=== PATIENT | female | born 1950 | race Caucasian/White ===

== ENCOUNTER → 2017-12-30 07:09 | Outpatient (CLI) | payer MEDICARE, SELFPAY ==
--- NOTE | 2017-12-30 07:15 | CT_ITS ---
STUDY: CT ABDOMEN AND PELVIS WITH CONTRAST REASON FOR EXAM: Female, 67 years old. Right adnexal mass. RADIATION DOSAGE (If Supplied By Facility): CTDIvol = ( 20.62 ) mGy, DLP = ( 1084.94 ) mGycm TECHNIQUE: Transaxial images were obtained from the dome of the diaphragm to the symphysis pubis with oral contrast. 100CC ml of Isovue 300 contrast was administered. Sagittal and coronal images were reconstructed. Individualized dose optimization techniques were used for this CT. COMPARISON: Comparison is made with prior examination dated April 11, 2017. FINDINGS: Minimal increased markings at the right lung base suggestive of linear atelectasis. Coronary artery calcification. There is decreased attenuation of the liver consistent with steatosis. Normal gallbladder and extrahepatic biliary system. Normal spleen. Normal pancreas. Normal bilateral adrenal glands. Normal right kidney. Normal left kidney. Normal visualized stomach. Normal small intestine. There are multiple colonic diverticula consistent with diverticulosis. The patient is status post appendectomy. There is diffuse atherosclerotic calcification of the abdominal aorta, without a demonstrated aneurysm. Normal inferior vena cava. There is borderline retroperitoneal lymphadenopathy with enlarged nodes no greater than 10mm in the short axis diameter. Normal urinary bladder. Focal calcification along the right side of the uterus suggestive of a small calcified fibroid. There is a 3.3 cm x 4.2 cm x 3.8 cm hypodense mass in the right adnexal region. This abuts the right side of the fundal portion of the uterus. This may represent either an ovarian mass or pedunculated fibroid. Correlation with ultrasound is recommended for further evaluation. Normal abdominal wall. Degenerative changes at the L5-S1 level. CT/Abdomen/Pelvis WITH Contrast IMPRESSION: Fatty infiltration of the liver. Stable appearance of the right adnexal mass. This may represent either an ovarian pathology or pedunculated fibroid. Correlation with ultrasound of the pelvis is recommended for further evaluation. Electronically Signed: Emeterio Vicente MD at 15:56 EST Tel [phone], Service support ,
[2017-12-30 07:41] LABS: CREATININE FINGERSTICK 1.4 mg/dL (0.55-1.02)
== END ==
PROVIDERS: Family Provider Student in an Organized Health Care Education/Training Program; PCP Student in an Organized Health Care Education/Training Program; Visit Provider Obstetrics & Gynecology
DX: N94.9 Unspecified condition associated with female genital organs and menstrual cycle (principal)
CPT/HCPCS: 74177; Q9967

== ENCOUNTER 2018-01-14 11:22 | Emergency (ER) | payer MEDICARE, SELFPAY ==
[2018-01-14 11:24] VITALS: BP 141/84; PULSE 100; RESP 17; TEMP 37.1; O2SAT 95; BMI 31.0
--- NOTE | 2018-01-14 11:42 | ED.DCSUM_ITS ---
- ER Visit Summary Date of Service: 01/14/18 Chief Complaint: Nausea, vomiting, diarrhea History of Present Illness: The patient is a 67 F who states that she felt fine when she was to bed last night. She woke at 1 AM with nausea, vomiting, and diarrhea. Symptoms have persisted. She denies fever. She complains of generalized abdominal pain. She is a diabetic and states this morning her blood sugar was 300. She did take her insulin but has not been able to eat. Physical Examination: Vital signs are unremarkable. Patient sitting upright in bed no acute distress. Heart is regular rate and rhythm. Lung sounds are clear. Abdomen is soft mild diffuse tenderness to palpation. There is no guarding or rebound. Hypoactive bowel sounds are noted throughout. Test Results: CBC was normal white count with 91% neutrophils. Hemoglobin 11.9. Chemistry studies reveal glucose of 302. Her creatinine is 1.39 which is consistent with her baseline. LFTs are significant only for an ALT is 76 and an AST of 70. Urinalysis shows no sign of infection. Emergency Department Course and Treatment: Patient was given IV fluids and Zofran. On repeat evaluation she states her nausea was returning. She given Zofran and a dose of Bentyl. Final repeat eval patient states that she threw up just one time here in the emergency room. Overall she is feeling improved. She will be given Zofran and Bentyl for home. Stool studies were sent and if positive she will be called with those results. Treatment Plan: [] Disposition: Discharge Impression: Viral gastroenteritis This note was generated with wo[employer] mobile marketing dictation software. It may contain incorrect words, spelling, and punctuation that were not noted in review of the chart prior to signing ED Disposition - Plan for ED Patient: Chief Complaint: Nausea/Vomiting/Diarrhea Referrals: Mariano Pearce DO [Primary Care Provider] -
[2018-01-14] MEDS: Ondansetron 4 MG/2 ML Vial IV ×2 (11:53→14:03)
[2018-01-14] MEDS: 0.9% Normal Saline 1,000 ML 150 ML IV (11:53)
[2018-01-14 12:00] LABS: Absolute Lymphocyte Count 0.44 X10^3/ul (0.83-4.51); Absolute Neutrophil Count 7.5 X10^3/uL (2.0-7.7); Basophil# 0.01 X10^3/uL; Basophil% 0.1 % (0-1); Eosinophil# 0.04 X10^3/uL; Eosinophils% 0.5 % (0-5); Hematocrit 36.5 % (37-47); Hemoglobin 11.9 g/dl (12.0-15.0); Lymphocyte # 0.44 X10^3/ul (4.0); Lymphocyte % 5.3 % (19-41); Mean Corp Hgb Conc 32.6 g/gl (32-36); Mean Corpuscular Hgb 29.8 pg (27.0-32.0); Mean Corpuscular Volume 91.5 fL (81-99); Mean Platelet Vol. 12.4 fl (6.2-12.0); Monocyte# 0.23 X10^3/uL; Monocyte% 2.8 % (0-10); Neutrophil # 7.54 X10^3/uL (2.7-7.7); Neutrophil % 91.1 % (47-70); Platelet Count 162 K/mm3 (150-450); RBC Distribution Width CV 13.3 % (11.6-14.6); RBC Distribution Width SD 43.7 fl (35.1-43.9); Red Blood Count 3.99 M/mm3 (4.2-5.4); White Blood Count 8.3 K/mm3 (4.4-11.0)
[2018-01-14 12:03] LABS: POSITIVE COUNT NO; POSITIVE DIFFERENTIAL YES; POSITIVE MORPHOLOGY NO
[2018-01-14 12:04] LABS: Differential Indicated SCAN CRITERIA MET
[2018-01-14 12:09] LABS: AST(SGOT) 70 U/L (15-37); Alanine Aminotransfer ALT/SGPT 76 U/L (13-56); Albumin, Serum 3.6 g/dL (3.2-5.0); Alkaline Phosphatase 115 U/L (45-117); Anion Gap 8 (5-15); BUN 20 mg/dL (7-18); BUN/Creat Ratio 14.4 RATIO (10-20); Bilirubin, Direct 0.13 mg/dL (0.00-0.30); Calcium,Total 8.8 mg/dL (8.5-10.1); Chloride 103 mmol/L (98-107); Creatinine, Serum 1.39 mg/dL (0.55-1.02); EST Glomerular Filtration Rate 40 mL/min (>60); Est Glom Filt Rate - Afr Amer 49 mL/min (>60); Estimated Creatinine Clearance 32.93 ml/min; Globulin 3.9 g/dL (2.2-4.2); Glucose 302 mg/dL (74-106); Lipase 155 U/L (73-393); Potassium 4.2 mmol/L (3.5-5.1); Protein, Total 7.5 g/dL (6.4-8.2); Sodium Level 136 mmol/L (136-145)
[2018-01-14 13:13] VITALS: BP 130/70; PULSE 85; RESP 16; O2SAT 96
[2018-01-14 13:16] LABS: Mucous, Urine 0 SEEN /hpf (<or=2+); Red Blood Cells-Urine 0 SEEN /hpf (0-5)
[2018-01-14 13:18] LABS: Color, Urine Yellow (Yellow); Glucose, Dipstick 250 mg/dl (Normal); Ketone-Dipstick Negative (Negative); Leukocyte Esterase-Dipstick Negative /ul (Negative); Nitrite-Dipstick Negative (Negative); Occult Blood-Urine Negative /ul (Negative); Protein-Dipstick Negative (Negative); Specific Gravity, Urine 1.015 (1.002-1.030); Urine Bilirubin Dipstick Negative (Negative); Urine Clarity Clear (Clear); Urine Urobilinogen Normal (Normal)
[2018-01-14 13:24] LABS: Bacteria RARE /hpf (None Seen); Squamous Epithelial Cells - UA 0-5 SEEN /hpf (5-10); White Blood Cells 0-5 SEEN /hpf (0-5)
[2018-01-14] MEDS: Dicyclomine 20 MG/2 ML Vial IM (14:03)
[2018-01-14 15:04] VITALS: BP 139/72; PULSE 81; RESP 16; O2SAT 98
--- NOTE | 2018-01-14 15:41 | ED.DEP ---
ED Disposition - Plan for ED Patient: Disposition: Home or Assisted Living Chief Complaint: Nausea/Vomiting/Diarrhea Instructions: ED Gastroenteritis Viral Prescriptions: Ondansetron [Zofran Odt] 4 mg PO Q8H PRN PRN #10 tablet PRN Reason: Nausea Dicyclomine HCl [Bentyl] 20 mg PO TIDAC #20 capsule Referrals: Mariano Pearce DO [Primary Care Provider] - 3-5 Days if not improving
[2018-01-14 15:49] VITALS: BP 130/66; PULSE 74; RESP 22; O2SAT 98
--- NOTE | 2018-01-14 15:50 | ED.RN ---
THIS NURSE REVIEWED D/C INSTRUCTIONS WITH PT. PT VERBALIZED UNDERSTANDING OF INSTRUCTIONS. IV D/C. IV CATHETER INTACT. PT TOLERATED WELL. PT DENIES FURTHER NEEDS OR QUESTIONS AT THIS TIME
--- NOTE | 2018-01-15 13:54 | ED.RN ---
CALLED AND LEFT A MESSAGE WITH PT ON HER LISTED HOME PHONE NUMBER, LEFT MESSAGE TO CALL BACK TO ED.
== END 2018-01-14 15:51 | disposition home or self-care (01) ==
PROVIDERS: Emergency Provider Emergency Medicine; Family Provider Student in an Organized Health Care Education/Training Program; PCP Student in an Organized Health Care Education/Training Program
DX: A08.4 Viral intestinal infection, unspecified (principal); E66.9 Obesity, unspecified; E11.9 Type 2 diabetes mellitus without complications; I10 Essential (primary) hypertension; E78.00 Pure hypercholesterolemia, unspecified
CPT/HCPCS: 80048; 80076; 81001; 83630; 83690; 85025; 87177; 87209; 87493; 87506; 96361; 96372; 96374; 96375; 96376; 99283; J7030; J7040; A4216; J2405

== ENCOUNTER 2021-01-15 10:55 | Outpatient (RCR) | payer MEDICARE, SELFPAY | END 2021-01-15 23:59 | LOC: IMMUN 10:55 | PROVIDERS: PCP Student in an Organized Health Care Education/Training Program; Visit Provider Family Medicine | DX: Z23 Encounter for immunization (principal) | CPT/HCPCS: 0011A; 0012A ==

== ENCOUNTER 2021-05-09 14:57 | Observation (INO) | payer MEDICARE, SELFPAY ==
[2021-05-09 14:58] VITALS: BP 111/72; PULSE 80; RESP 16; TEMP 36.6; O2SAT 95; BMI 31.1
[2021-05-09 17:30] LABS: Absolute Lymphocyte Count 2.58 X10^3/uL (0.83-4.51); Absolute Neutrophil Count 8.4 X10^3/uL (2.0-7.7); Basophil# 0.02 X10^3/uL; Basophil% 0.2 % (0-1); Eosinophil# 0.29 X10^3/uL; Eosinophils% 2.4 % (0-5); Hematocrit 43.4 % (37-47); Hemoglobin 13.9 g/dL (12.0-15.0); Lymphocyte # 2.58 X10^3/ul (0.83-4.51); Lymphocyte % 21.7 % (19-41); Mean Corpuscular Hgb 29.9 pg (27.0-32.0); Mean Corpuscular Volume 93.3 fL (81-99); Mean Platelet Vol. 12.1 fl (6.2-12.0); Monocyte# 0.61 X10^3/uL; Monocyte% 5.1 % (0-10); NRBC Flagged by Analyzer 0 % (0-5); Neutrophil # 8.37 X10^3/uL (2.7-7.7); Neutrophil % 70.3 % (47-70); Platelet Count 204 K/mm3 (150-450); RBC Distribution Width CV 12.7 % (11.6-14.6); RBC Distribution Width SD 43.3 fl (35.1-43.9); Red Blood Count 4.65 M/mm3 (4.2-5.4); White Blood Count 11.9 K/mm3 (4.4-11.0)
--- NOTE | 2021-05-09 17:37 | EDS_ITS ---
HPI History of Present Illness Chief Complaint: Nausea/Vomiting/Diarrhea Detail of Chief Complaint: Vomiting and diarrhea that started 3 days ago Informant: patient Narrative Narrative: Patient presents with vomiting up to 4 episodes per day and diarrhea up to 12 episodes per day that is watery. Patient states that she has been on Trulicity for about 3 weeks and every time she gets the weekly dose she has issues with vomiting and diarrhea. Patient denies fever. She denies eating any undercooked foods. Denies recent travel. Patient also describes some diffuse abdominal pain and she does not know if it is the Trulicity causing her symptoms or if she got diverticulitis. She denies blood in her stool or black tarry stools. She is immunized against Covid. Prior similar symptoms: Yes PFSH [facility] Medical History (Updated 05/09/21 @ 20:[address] Porfirio Queen, DO) Diabetes Home Medications enalapril maleate [Vasotec] 25 mg PO DAILY 08/06/14 [History Last Taken 01/14/18] lansoprazole [Prevacid] 30 mg PO DAILY 08/06/14 [History Last Taken 01/14/18] levothyroxine 112 mcg PO DAILY 08/06/14 [History Last Taken 01/14/18] lorazepam 2 mg PO QHS 08/06/14 [History Last Taken Unknown] metoprolol tartrate 100 mg PO BID 08/06/14 [History Last Taken 01/14/18] citalopram 30 mg PO DAILY 05/22/15 [History Last Taken 01/14/18] apremilast [Otezla] 30 mg PO DAILY 05/09/21 [History Last Taken Unknown] dulaglutide [Trulicity] mg SUBCUT 05/09/21 [History Last Taken Unknown] ezetimibe 10 mg PO DAILY 05/09/21 [History Last Taken Unknown] insulin glargine [Lantus Solostar U-100 Insulin] 28 unit SUBCUT BID 05/09/21 [History Last Taken Unknown] Allergy/AdvReac Type Severity Reaction Status Date / Time latex Allergy Hives Verified 05/09/21 14:58 naproxen [From Naprosyn] Allergy Unknown Verified 05/09/21 14:58 rofecoxib [From Vioxx] Allergy Swelling Verified 05/09/21 14:58 simvastatin [From Zocor] Allergy Unknown Verified 05/09/21 14:58 Sulfa (Sulfonamide Allergy Hives Verified 05/09/21 14:58 Antibiotics) atorvastatin calcium AdvReac Pain in Verified 05/09/21 14:58 [From Lipitor] joints doxycycline calcium AdvReac Nausea Verified 05/09/21 14:58 [From Vibramycin] doxycycline hyclate AdvReac Nausea Verified 05/09/21 14:58 [From Vibramycin] doxycycline monohydrate AdvReac Nausea Verified 05/09/21 14:58 [From Vibramycin] erythromycin base AdvReac Nausea Verified 05/09/21 14:58 [Erythromycin Base] fluvastatin sodium AdvReac Nausea Verified 05/09/21 14:58 [From Lescol] niacin AdvReac Itching Verified 05/09/21 14:58 rosuvastatin calcium AdvReac Unknown Verified 05/09/21 14:58 [From Crestor] Social History Smoking Status: Never smoker ROS ROS ED Constitutional Constitutional ED: Reports systems reviewed and no addt'l complaints, except as documented; Denies body ache(s), change in weight or chills Eyes Eyes: Denies acute decrease in peripheral vision, change in vision, double vision or loss of vision ENT ENT ED: Reports none; Denies ear pain, lip swelling, loss taste/smell, neck pain, otalgia or sore throat Cardiovascular Cardiovascular: Reports none; Denies abdominal pain, chest pain with activity, leg edema, lightheadedness, palpitations, rapid heart rate or syncope Respiratory/Chest Respiratory/Chest: Reports none; Denies change in mental status, dry cough, dyspnea, hemoptysis, shortness of breath at rest or shortness of breath with exertion Gastrointestinal Gastrointestinal: Reports none, abdominal pain, diarrhea, nausea and vomiting; Denies change in stool character, hematemesis, hematochezia, melena or rectal bleeding Genitourinary Genitourinary ED: Reports none; Denies abdominal discomfort, anuria, dysuria, genital pain or polyuria Musculoskeletal Musculoskeletal: Reports none; Denies arthralgias, back pain, difficulty walking, extremity pain, muscle weakness or myalgias Integumentary Reports none; Denies abscess or rash Neurologic Neurologic: Reports none; Denies abnormal gait, confusion, focal weakness, frequent falls, headache(s), loss of vision, numbness, paresthesias, radicular pain, vertigo or weakness Psychiatric Psychiatric: Reports systems reviewed and no addt'l complaints, except as documented and none; Denies behavioral changes, confusion, difficulty concentrating, hallucinations, suicidal ideation, tactile hallucinations or visual hallucinations Endocrine Endocrinology: Denies none, cold intolerance, excessive sweating, fatigue or heat intolerance Hematologic/Lymphatic Hematologic/Lymphatic: Reports none; Denies anemia, easy bleeding or easy bruising Allergic/Immunologic Allergic/Immunologic ED: Denies as per HPI, none, lip swelling, mouth swelling, throat swelling, tongue swelling or hives EXAM Physical Exam Const Vital Signs: 05/09/21 14:58 05/09/21 17:51 Temperature 97.8 F Temperature Source Temporal Pulse Rate 80 70 Respiratory Rate 16 18 Blood Pressure 111/72 Blood Pressure Mean 85 Pulse Ox 95 97 Oxygen Delivery Method Room Air Positive well nourished and well developed General Appearance ED: well developed and NAD HEENT Reports TM's clear and moist mucous membranes normocephalic and atraumatic; Negative for trauma or tenderness Tympanic Membrane ED: Yes TM's clear Eyes PERRL and EOMs intact bilaterally General Eye ED: Negative for pale conjunctiva or scleral icterus Neck no lymphadenopathy, supple and no JVD General: Negative for tenderness Chest Wall inspection of chest normal and palpation of chest normal Chest: Negative for tenderness Resp normal respiratory effort and clear to auscultation bilaterally Effort and Inspection: Negative for respiratory distress or pain with movement Auscultation: Negative for rhonchi, wheezes or diminished lung sounds Cardio regular rate, regular rhythm, S1 normal heart sound, S2 normal heart sound and no murmurs Peripheral Pulses: pulses 2+ throughout GI normal to inspection, nondistended, normoactive bowel sounds, soft to palpation, non-tender, non-distended and no masses GI Narrative: Patient has some diffuse tenderness in the epigastric and left upper quadrant left lower quadrant regions. No rebound, rigidity, or peritoneal signs. Palpation: soft and tender Back/Spine no CVA tenderness and no thoracic nor lumbar tenderness Extremity normal to inspection General Extremety ED: Negative for edema General Extremity: Negative for edema Neuro oriented x3, CN's II-XII intact bilaterally, no sensory deficits noted and gait normal Sensorium / Orientation: awake, alert, oriented to person, oriented to place and oriented to time Motor Exam: strength 5/5 throughout and strength abnormal Psych mental status grossly normal Skin no rashes or lesions noted and no wounds MDM MDM MDM Narrative Medical decision making narrative: Patient with some signs of dehydration. Etiology of her gastroenteritis-like symptoms unclear if viral versus related to her Trulicity. She does not feel comfortable going home as she feels a little bit unsteady on her feet and weak and she lives alone. I will discuss with hospitalist to admit for IV fluids. Patient with some signs of acute kidney injury. Lab Data Attestation: I reviewed the patient's lab results. Labs: Laboratory Results - last 24 hr 05/09/21 05/09/21 05/09/21 17:05 17:05 17:44 WBC 11.9 H RBC 4.65 Hgb 13.9 Hct 43.4 MCV 93.3 MCH 29.9 MCHC 32.0 RDW Std Deviation 43.3 RDW Coeff of Cara 12.7 Plt Count 204 MPV 12.1 H Immature Gran % (Auto) 0.300 Neut % (Auto) 70.3 H Lymph % (Auto) 21.7 Peach % (Auto) 5.1 Eos % (Auto) 2.4 Baso % (Auto) 0.2 Absolute Neuts (auto) 8.4 H Absolute Lymphs (auto) 2.58 Nucleated RBC % 0 Sodium 136 Potassium 4.6 Chloride 105 Carbon Dioxide 22.0 Anion Gap 9 BUN 31 H Creatinine 1.79 H Estim Creat Clear Calc 23.46 Est GFR (MDRD) Af Amer 36 L Est GFR (MDRD) Non-Af 30 L BUN/Creatinine Ratio 17.3 Glucose 143 H Lactic Acid Calcium 9.2 Total Bilirubin 0.40 AST 38 H ALT 59 H Alkaline Phosphatase 109 Troponin I High Sens 4.5 Total Protein 7.5 Albumin 3.8 Globulin 3.7 Albumin/Globulin Ratio 1.0 Lipase 75 Urine Color Yellow Urine Clarity Clear Urine pH 5.0 Ur Specific [place] 1.030 Urine Protein 30 H Urine Glucose (UA) Normal Urine Ketones 5 H Urine Occult Blood Negative Urine Nitrite Negative Urine Bilirubin 3 H Urine Urobilinogen 1 H Ur Leukocyte Esterase 25 H Urine RBC 0 SEEN Urine WBC 0-5 SEEN Ur Squamous Epith Cells 5-10 SEEN Urine Bacteria 3+ Hyaline Casts 10-25 SEEN Urine Mucus 1+ 05/09/21 18:49 WBC RBC Hgb Hct MCV MCH MCHC RDW Std Deviation RDW Coeff of Cara Plt Count MPV Immature Gran % (Auto) Neut % (Auto) Lymph % (Auto) [place] % (Auto) Eos % (Auto) Baso % (Auto) Absolute Neuts (auto) Absolute Lymphs (auto) Nucleated RBC % Sodium Potassium Chloride Carbon Dioxide Anion Gap BUN Creatinine Estim Creat Clear Calc Est GFR (MDRD) Af Amer Est GFR (MDRD) Non-Af BUN/Creatinine Ratio Glucose Lactic Acid 0.8 Calcium Total Bilirubin AST ALT Alkaline Phosphatase Troponin I High Sens Total Protein Albumin Globulin Albumin/Globulin Ratio Lipase Urine Color Urine Clarity Urine pH Ur Specific [place] Urine Protein Urine Glucose (UA) Urine Ketones Urine Occult Blood Urine Nitrite Urine Bilirubin Urine Urobilinogen Ur Leukocyte Esterase Urine RBC Urine WBC Ur Squamous Epith Cells Urine Bacteria Hyaline Casts Urine Mucus Radiography Diagnostic Testing: Radiology Impression Abdomen/Pelvis CT 05/09/21 18:19 IMPRESSION: No acute findings in the abdomen or pelvis. Colonic diverticulosis without CT changes of acute diverticulitis. Individualized dose optimization techniques were used for this CT. at 1848 Reported and signed by: Dale Mendoza MD Electronically Signed: Dale Mendoza MD at 18:47 EDT Tel , Service support , Discharge Plan Dx/Rx/DC Orders Clinical Impression: Gastroenteritis, Dehydration, Acute kidney injury Disposition Disposition: Acute Care Hospital [facility]
[2021-05-09] MEDS: 0.9% Normal Saline 1,000 ML 125 ML IV (17:48)
[2021-05-09] MEDS: Ondansetron 4 MG/2 ML Vial IV (17:48)
[2021-05-09 17:50] LABS: AST(SGOT) 38 U/L (15-37); Alanine Aminotransfer ALT/SGPT 59 U/L (13-56); Albumin, Serum 3.8 g/dL (3.2-5.0); Alkaline Phosphatase 109 U/L (45-117); Anion Gap 9 (5-15); BUN 31 mg/dL (7-18); BUN/Creat Ratio 17.3 RATIO (10-20); Calcium,Total 9.2 mg/dL (8.5-10.1); Chloride 105 mmol/L (98-107); Creatinine, Serum 1.79 mg/dL (0.55-1.02); EST Glomerular Filtration Rate 30 mL/min (>60); Est Glom Filt Rate - Afr Amer 36 mL/min (>60); Estimated Creatinine Clearance 23.46 ml/min; Globulin 3.7 g/dL (2.2-4.2); Glucose 143 mg/dL (74-106); Lipase 75 U/L (73-393); Potassium 4.6 mmol/L (3.5-5.1); Protein, Total 7.5 g/dL (6.4-8.2); Sodium Level 136 mmol/L (136-145); Troponin-I HS 4.5 pg/mL (3.0-53.7)
[2021-05-09 17:50] LABS: Red Blood Cells-Urine 0 SEEN /hpf (0-5)
[2021-05-09 17:51] VITALS: PULSE 70; RESP 18; O2SAT 97
[2021-05-09 17:55] LABS: Color, Urine Yellow (Yellow); Glucose, Dipstick Normal (Normal); Ketone-Dipstick 5 mg/dl (Negative); Leukocyte Esterase-Dipstick 25 /ul (Negative); Nitrite-Dipstick Negative (Negative); Occult Blood-Urine Negative /ul (Negative); Protein-Dipstick 30 mg/dl (Negative); Urine Clarity Clear (Clear); Urine Urobilinogen 1 mg/dl (Normal)
[2021-05-09 18:02] LABS: Urine Bilirubin Dipstick 3 mg/dL (Negative)
[2021-05-09 18:07] LABS: Bacteria 3+ /hpf (None Seen); Squamous Epithelial Cells - UA 5-10 SEEN /hpf (5-10); White Blood Cells 0-5 SEEN /hpf (0-5)
[2021-05-09 18:08] LABS: Hyaline Cast 10-25 SEEN /lpf (0-5); Mucous, Urine 1+ /hpf (<or=2+)
--- NOTE | 2021-05-09 18:19 | CT_ITS ---
HISTORY: Pain EXAMINATION: CT Abdomen And Pelvis W/O Contrast Injection TECHNIQUE: Multiple axial images were obtained of the abdomen and pelvis without oral or IV contrast. A radiation dose optimization technique was used for this scan. IV Contrast dosage and agent: None. Oral contrast: None. COMPARISON: 12/30/17 FINDINGS: LOWER CHEST: Mild bibasilar dependent changes. No cardiomegaly or pericardial effusion. LIVER: Homogeneous low attenuation consistent with steatosis. No focal mass. GALLBLADDER AND BILIARY TREE: No calcified gallstones. No gallbladder distension or wall edema. No intra- or extrahepatic biliary ductal dilation. PANCREAS: No focal cystic or solid mass. SPLEEN: Normal size without focal cystic or solid mass. ADRENAL GLANDS: No nodules. KIDNEYS AND URETERS: Normal renal size and position. No hydronephrosis or nephrolithiasis. PERITONEUM: No ascites or free air. BOWEL: No evidence of acute appendicitis. No stomach or bowel distension. Colonic diverticulosis without focal inflammatory bowel wall changes. LYMPH NODES: No enlarged mesenteric or retroperitoneal lymph nodes. VESSELS: Aorta is non-dilated. URINARY BLADDER: Nondistended. REPRODUCTIVE ORGANS: No pelvic masses. Previously identified right adnexal lesion no longer present ABDOMINAL WALL: No discrete abdominal or pelvic wall hernia. BONES: No acute or aggressive abnormality. CT/Abdomen/Pelvis without Cont IMPRESSION: No acute findings in the abdomen or pelvis. Colonic diverticulosis without CT changes of acute diverticulitis. Individualized dose optimization techniques were used for this CT. at 1848 Reported and signed by: Dale Mendoza MD Electronically Signed: Dale Mendoza MD at 18:47 EDT Tel , Service support ,
[2021-05-09 19:20] LABS: Lactic Acid 0.8 mmol/L (0.4-1.9)
[2021-05-09] MEDS: Mag Hydrox/Al Hydrox/Simeth 30 ML UDC PO (21:04)
[2021-05-09 21:06] VITALS: BP 119/62; PULSE 76; RESP 18; TEMP 36.4; O2SAT 96
--- NOTE | 2021-05-09 21:44 | HP.PCM.HOS_ITS ---
HPI - General General Date of Admission: 05/09/21 Date of Service: 05/09/21 Chief Complaint: vomiting and diarrhea HPI Narrative AUSTIN CASE, is a 70 F who presents presents with vomiting and diarrhea since this past Friday. Patient has been just having frequent bouts of diarrhea and vomiting during this time and unable to keep anything down and has not eaten. Feeling dizzy when she stands up and unsteady. Patient is concerned this may related with Trulicity. Patient took a dose on Friday. Patient has been started on about 3 weeks ago and the other weekly dosing patient had similar but less severe symptoms nausea. Patient has never had any issues like this before. The patient presented to the emergency room and had a creatinine of 1.79. [facility] Medical History (Updated 05/09/21 @ 21:[address] Alan Paz, ) Diabetes Diverticulosis HTN (hypertension) Hyperlipidemia Home Medications enalapril maleate [Vasotec] 25 mg PO DAILY 08/06/14 [History Last Taken 01/14/18] lansoprazole [Prevacid] 30 mg PO DAILY 08/06/14 [History Last Taken 01/14/18] levothyroxine 112 mcg PO DAILY 08/06/14 [History Last Taken 01/14/18] lorazepam 2 mg PO QHS 08/06/14 [History Last Taken Unknown] metoprolol tartrate 100 mg PO BID 08/06/14 [History Last Taken 01/14/18] citalopram 30 mg PO DAILY 05/22/15 [History Last Taken 01/14/18] apremilast [Otezla] 30 mg PO DAILY 05/09/21 [History Last Taken Unknown] dulaglutide [Trulicity] mg SUBCUT 05/09/21 [History Last Taken Unknown] ezetimibe 10 mg PO DAILY 05/09/21 [History Last Taken Unknown] insulin glargine [Lantus Solostar U-100 Insulin] 28 unit SUBCUT BID 05/09/21 [History Last Taken Unknown] Allergy/AdvReac Type Severity Reaction Status Date / Time latex Allergy Hives Verified 05/09/21 14:58 naproxen [From Naprosyn] Allergy Unknown Verified 05/09/21 14:58 rofecoxib [From Vioxx] Allergy Swelling Verified 05/09/21 14:58 simvastatin [From Zocor] Allergy Unknown Verified 05/09/21 14:58 Sulfa (Sulfonamide Allergy Hives Verified 05/09/21 14:58 Antibiotics) atorvastatin calcium AdvReac Pain in Verified 05/09/21 14:58 [From Lipitor] joints doxycycline calcium AdvReac Nausea Verified 05/09/21 14:58 [From Vibramycin] doxycycline hyclate AdvReac Nausea Verified 05/09/21 14:58 [From Vibramycin] doxycycline monohydrate AdvReac Nausea Verified 05/09/21 14:58 [From Vibramycin] erythromycin base AdvReac Nausea Verified 05/09/21 14:58 [Erythromycin Base] fluvastatin sodium AdvReac Nausea Verified 05/09/21 14:58 [From Lescol] niacin AdvReac Itching Verified 05/09/21 14:58 rosuvastatin calcium AdvReac Unknown Verified 05/09/21 14:58 [From Crestor] Family History (Updated 05/09/21 @ 21:[address] Alan Paz DO) Other Diabetes Social History (Updated 05/09/21 @ 21:[address] Alan Paz DO) Smoking Status: Never smoker alcohol intake: never substance use type: does not use ROS ROS Narrative No fever or chills. No exposure to anyone with COVID-19 or any other sick contacts. All review of systems were negative except as mentioned above in the history of present illness and the other review of systems. Vital Signs Vital Signs Vital Signs: 05/09/21 14:58 05/09/21 17:51 05/09/21 21:06 Temperature 36.6 C 36.4 C L Temperature Source Temporal Temporal Pulse Rate 80 70 76 Respiratory Rate 16 18 18 Blood Pressure 111/72 119/62 Blood Pressure Mean 85 81 Pulse Ox 95 97 96 Oxygen Delivery Method Room Air Room Air Weight Weight: 77.2 kg Body Mass Index (BMI) 31.1 Physical Exam Const alert General Appearance: cooperative HEENT normocephalic Neck no lymphadenopathy Resp normal respiratory effort Cardio regular rate, regular rhythm, S1 normal heart sound and S2 normal heart sound GI normal to inspection, nondistended, normoactive bowel sounds, non-tender and non-distended Extremity normal to inspection Skin no rashes or lesions noted Neuro Sensorium / Orientation: alert Results Lab / Micro Data Attestation: I reviewed the patient's lab results. Result Diagrams: 05/09/21 17:05 05/09/21 17:05 Labs: Laboratory Results - last 24 hr 05/09/21 05/09/21 05/09/21 17:05 17:05 17:44 WBC 11.9 H RBC 4.65 Hgb 13.9 Hct 43.4 MCV 93.3 MCH 29.9 MCHC 32.0 RDW Std Deviation 43.3 RDW Coeff of Cara 12.7 Plt Count 204 MPV 12.1 H Immature Gran % (Auto) 0.300 Neut % (Auto) 70.3 H Lymph % (Auto) 21.7 Day % (Auto) 5.1 Eos % (Auto) 2.4 Baso % (Auto) 0.2 Absolute Neuts (auto) 8.4 H Absolute Lymphs (auto) 2.58 Nucleated RBC % 0 Sodium 136 Potassium 4.6 Chloride 105 Carbon Dioxide 22.0 Anion Gap 9 BUN 31 H Creatinine 1.79 H Estim Creat Clear Calc 23.46 Est GFR (MDRD) Af Amer 36 L Est GFR (MDRD) Non-Af 30 L BUN/Creatinine Ratio 17.3 Glucose 143 H Lactic Acid Calcium 9.2 Total Bilirubin 0.40 AST 38 H ALT 59 H Alkaline Phosphatase 109 Troponin I High Sens 4.5 Total Protein 7.5 Albumin 3.8 Globulin 3.7 Albumin/Globulin Ratio 1.0 Lipase 75 Urine Color Yellow Urine Clarity Clear Urine pH 5.0 Ur Specific [place] 1.030 Urine Protein 30 H Urine Glucose (UA) Normal Urine Ketones 5 H Urine Occult Blood Negative Urine Nitrite Negative Urine Bilirubin 3 H Urine Urobilinogen 1 H Ur Leukocyte Esterase 25 H Urine RBC 0 SEEN Urine WBC 0-5 SEEN Ur Squamous Epith Cells 5-10 SEEN Urine Bacteria 3+ Hyaline Casts 10-25 SEEN Urine Mucus 1+ 05/09/21 18:49 WBC RBC Hgb Hct MCV MCH MCHC RDW Std Deviation RDW Coeff of Cara Plt Count MPV Immature Gran % (Auto) Neut % (Auto) Lymph % (Auto) Day % (Auto) Eos % (Auto) Baso % (Auto) Absolute Neuts (auto) Absolute Lymphs (auto) Nucleated RBC % Sodium Potassium Chloride Carbon Dioxide Anion Gap BUN Creatinine Estim Creat Clear Calc Est GFR (MDRD) Af Amer Est GFR (MDRD) Non-Af BUN/Creatinine Ratio Glucose Lactic Acid 0.8 Calcium Total Bilirubin AST ALT Alkaline Phosphatase Troponin I High Sens Total Protein Albumin Globulin Albumin/Globulin Ratio Lipase Urine Color Urine Clarity Urine pH Ur Specific [place] Urine Protein Urine Glucose (UA) Urine Ketones Urine Occult Blood Urine Nitrite Urine Bilirubin Urine Urobilinogen Ur Leukocyte Esterase Urine RBC Urine WBC Ur Squamous Epith Cells Urine Bacteria Hyaline Casts Urine Mucus Radiology Impression Abdomen/Pelvis CT 05/09/21 18:19 IMPRESSION: No acute findings in the abdomen or pelvis. Colonic diverticulosis without CT changes of acute diverticulitis. Individualized dose optimization techniques were used for this CT. at 1848 Reported and signed by: Dale Mendoza MD Electronically Signed: Dale Mendoza MD at 18:47 EDT Tel , Service support , Assessment & Plan Assessment/Plan (1) Intractable nausea and vomiting: (2) HIPOLITO (acute kidney injury): PLAN: 1. Intractable nausea, vomiting and diarrhea: * I suspect this may be related with the Trulicity that the patient takes. Review shows that it occurs in about 10 to 12% of patients taking it. * Plan for now is to treat her supportively with IV fluids and antiemetics. I have advised the patient to hold off on the Trulicity moving forward and to follow-up with her provider in regards to further management of her diabetes. 2. Acute kidney injury * This is likely prerenal given the intractable vomiting diarrhea and decreased oral intake * IV fluids and recheck BMP in the a.m. 3. Diabetes mellitus type 2 * Continue with insulin glargine and sliding scale insulin * Once again, hold Trulicity as it may be contributing to her intractable vomiting and diarrhea. 4. VTE prophylaxis: Not indicated given observation status. 5. Health maintenance: Patient has been vaccinated against COVID-19. Charges/Coding Visit Charges OBSV E&M: 53362 Initial observation care L3
[2021-05-09 22:06] VITALS: BMI 31.3
[2021-05-09 23:00] LABS: Bedside Glucose 118 mg/dL (70-110)
[2021-05-09 23:05] VITALS: BP 116/59; PULSE 76; RESP 17; TEMP 36.7; O2SAT 94
[2021-05-09] MEDS: 0.9% Normal Saline 1,000 ML 150 ML IV (23:09)
[2021-05-09] MEDS: LORazepam 1 MG Tablet 2 MG PO (23:26)
[2021-05-10 02:49] VITALS: BP 125/61; PULSE 79; RESP 18; TEMP 36.9; O2SAT 93
[2021-05-10 06:51] LABS: AST(SGOT) 24 U/L (15-37); Alanine Aminotransfer ALT/SGPT 42 U/L (13-56); Albumin, Serum 2.9 g/dL (3.2-5.0); Alkaline Phosphatase 84 U/L (45-117); Anion Gap 4 (5-15); BUN 27 mg/dL (7-18); BUN/Creat Ratio 18.8 RATIO (10-20); Calcium,Total 8.1 mg/dL (8.5-10.1); Chloride 111 mmol/L (98-107); Creatinine, Serum 1.44 mg/dL (0.55-1.02); EST Glomerular Filtration Rate 38 mL/min (>60); Est Glom Filt Rate - Afr Amer 46 mL/min (>60); Estimated Creatinine Clearance 29.16 ml/min; Globulin 2.9 g/dL (2.2-4.2); Glucose 102 mg/dL (74-106); Potassium 4.2 mmol/L (3.5-5.1); Protein, Total 5.8 g/dL (6.4-8.2); Sodium Level 139 mmol/L (136-145)
[2021-05-10] MEDS: Levothyroxine 112 MCG Tablet PO (07:35)
[2021-05-10] MEDS: 0.9% Normal Saline 1,000 ML 150 ML IV (07:35)
[2021-05-10 07:40] LABS: Bedside Glucose 116 mg/dL (70-110)
[2021-05-10 08:14] VITALS: BP 106/60; PULSE 68; RESP 18; TEMP 36.7; O2SAT 95
[2021-05-10] MEDS: Citalopram 10 MG Tablet 30 MG PO (09:56)
[2021-05-10] MEDS: Pantoprazole Sodium 40 MG Tablet PO (09:56)
[2021-05-10 09:57] VITALS: BP 100/60; PULSE 68
[2021-05-10 11:10] LABS: Bedside Glucose 142 mg/dL (70-110)
--- NOTE | 2021-05-10 11:27 | PN.HOSP_ITS ---
Subjective Subjective Patient was seen and examined. She complains of still feeling nauseous, tolerated a clear liquid diet this morning. She has had multiple bowel movements. Stool for enteric panel is negative. Objective Data Objective Data Vital Signs: Vital Signs Temp Pulse Resp BP Pulse Ox 98.0 F 68 18 100/60 95 05/10/21 08:14 05/10/21 09:57 05/10/21 08:14 05/10/21 09:57 05/10/21 08:14 Oxygen Delivery Method Room Air Weight: 77.7 kg Body Mass Index (BMI) 31.3 Intake & Output: Intake and Output for Last 24 Hours 05/08/21 05/09/21 05/10/21 23:59 23:59 23:59 Intake Total 525 / 745 2590 / 2590 Balance 525 / 745 2590 / 2590 Lab / Micro Data Result Diagrams: 05/09/21 17:05 05/10/21 06:14 Labs: Laboratory Results - last 24 hr 05/09/21 05/09/21 05/09/21 17:05 17:05 17:44 WBC 11.9 H RBC 4.65 Hgb 13.9 Hct 43.4 MCV 93.3 MCH 29.9 MCHC 32.0 RDW Std Deviation 43.3 RDW Coeff of Cara 12.7 Plt Count 204 MPV 12.1 H Immature Gran % (Auto) 0.300 Neut % (Auto) 70.3 H Lymph % (Auto) 21.7 [place] % (Auto) 5.1 Eos % (Auto) 2.4 Baso % (Auto) 0.2 Absolute Neuts (auto) 8.4 H Absolute Lymphs (auto) 2.58 Nucleated RBC % 0 Sodium 136 Potassium 4.6 Chloride 105 Carbon Dioxide 22.0 Anion Gap 9 BUN 31 H Creatinine 1.79 H Estim Creat Clear Calc 23.46 Est GFR (MDRD) Af Amer 36 L Est GFR (MDRD) Non-Af 30 L BUN/Creatinine Ratio 17.3 Glucose 143 H Lactic Acid Calcium 9.2 Total Bilirubin 0.40 AST 38 H ALT 59 H Alkaline Phosphatase 109 Troponin I High Sens 4.5 Total Protein 7.5 Albumin 3.8 Globulin 3.7 Albumin/Globulin Ratio 1.0 Lipase 75 Urine Color Yellow Urine Clarity Clear Urine pH 5.0 Ur Specific [place] 1.030 Urine Protein 30 H Urine Glucose (UA) Normal Urine Ketones 5 H Urine Occult Blood Negative Urine Nitrite Negative Urine Bilirubin 3 H Urine Urobilinogen 1 H Ur Leukocyte Esterase 25 H Urine RBC 0 SEEN Urine WBC 0-5 SEEN Ur Squamous Epith Cells 5-10 SEEN Urine Bacteria 3+ Hyaline Casts 10-25 SEEN Urine Mucus 1+ POC Glucose 05/09/21 05/09/21 05/10/21 18:49 22:48 06:14 WBC RBC Hgb Hct MCV MCH MCHC RDW Std Deviation RDW Coeff of Cara Plt Count MPV Immature Gran % (Auto) Neut % (Auto) Lymph % (Auto) [place] % (Auto) Eos % (Auto) Baso % (Auto) Absolute Neuts (auto) Absolute Lymphs (auto) Nucleated RBC % Sodium 139 Potassium 4.2 Chloride 111 H Carbon Dioxide 24.0 Anion Gap 4 L BUN 27 H Creatinine 1.44 H Estim Creat Clear Calc 29.16 Est GFR (MDRD) Af Amer 46 L Est GFR (MDRD) Non-Af 38 L BUN/Creatinine Ratio 18.8 Glucose 102 Lactic Acid 0.8 Calcium 8.1 L Total Bilirubin 0.40 AST 24 ALT 42 Alkaline Phosphatase 84 Troponin I High Sens Total Protein 5.8 L Albumin 2.9 L Globulin 2.9 Albumin/Globulin Ratio 1.0 Lipase Urine Color Urine Clarity Urine pH Ur Specific [place] Urine Protein Urine Glucose (UA) Urine Ketones Urine Occult Blood Urine Nitrite Urine Bilirubin Urine Urobilinogen Ur Leukocyte Esterase Urine RBC Urine WBC Ur Squamous Epith Cells Urine Bacteria Hyaline Casts Urine Mucus POC Glucose 118 H 05/10/21 05/10/21 07:33 11:04 WBC RBC Hgb Hct MCV MCH MCHC RDW Std Deviation RDW Coeff of Cara Plt Count MPV Immature Gran % (Auto) Neut % (Auto) Lymph % (Auto) [place] % (Auto) Eos % (Auto) Baso % (Auto) Absolute Neuts (auto) Absolute Lymphs (auto) Nucleated RBC % Sodium Potassium Chloride Carbon Dioxide Anion Gap BUN Creatinine Estim Creat Clear Calc Est GFR (MDRD) Af Amer Est GFR (MDRD) Non-Af BUN/Creatinine Ratio Glucose Lactic Acid Calcium Total Bilirubin AST ALT Alkaline Phosphatase Troponin I High Sens Total Protein Albumin Globulin Albumin/Globulin Ratio Lipase Urine Color Urine Clarity Urine pH Ur Specific [place] Urine Protein Urine Glucose (UA) Urine Ketones Urine Occult Blood Urine Nitrite Urine Bilirubin Urine Urobilinogen Ur Leukocyte Esterase Urine RBC Urine WBC Ur Squamous Epith Cells Urine Bacteria Hyaline Casts Urine Mucus POC Glucose 116 H 142 H Micro: Microbiology 05/09/21 20:00 Stool Enteric Bacteriology - Final Radiography Diagnostic Testing: Radiology Impression Abdomen/Pelvis CT 05/09/21 18:19 IMPRESSION: No acute findings in the abdomen or pelvis. Colonic diverticulosis without CT changes of acute diverticulitis. Individualized dose optimization techniques were used for this CT. at 1848 Reported and signed by: Dale Mendoza MD Electronically Signed: Dale Mendoza MD at 18:47 EDT Tel , Service support , Physical Exam Narrative Physical exam: General: Alert, Oriented x3, Cooperative, No apparent distress, Well developed, obese HEENT: Atraumatic Oral: Moist Mucosa Neck: Supple Lungs: Clear to auscultation Cardiovascular: HS I+II, regular, no murmurs Abdomen: Bowel Sounds Present, Soft, Non Tender Extremities: No edema Skin: No rashes, No breakdown Neurological: Grossly intact Psych/Mental Status: Appropriate Assessment & Plan Assessment/Plan (1) Intractable nausea and vomiting: (2) Acute kidney injury superimposed on CKD: PLAN: 1. Acute intractable nausea and vomiting likely secondary to Trulicity side effect Stool for enteric panel is negative, will continue to treat symptomatically Continue on IV fluids, Imodium prn 2. Acute kidney injury, prerenal secondary to dehydration Baseline creatinine is 1.3, admitting creatinine 1.79, continue on IV fluids, repeat blood work in a.m. 3. Type II DM, blood sugars currently controlled, off Trulicity, continue on the rest of home Lantus, insulin sliding scale 4. Rest of chronic medical conditions including hypertension, hypothyroidism, anxiety/depression remain stable Medications reviewed -continued Charges/Coding Visit Charges Inpatient E&M: 34360 Subs Hosp L2
[2021-05-10 12:00] VITALS: BP 102/59; PULSE 72; RESP 18; TEMP 36.7; O2SAT 95
[2021-05-10] MEDS: Loperamide 2 MG Capsule 4 MG PO (12:21)
--- NOTE | 2021-05-10 12:30 | NT.THERAPY_ITS ---
Medical Nutrition Therapy - History Nutrition Services has been consulted to:: Manage nutrient details of diet order Current diet/nutrition support order:: Clear liquid diet. Regular/thin liquid consistency. Ensure clear 120mL PO TID. - Anthropometric Measurements Height:: 5 ft 2 in Weight:: 77.7 kg Body Mass Index (BMI):: 31.3 - Relevant Labs Relevant Labs:: WBC 11.9 K/mm3 (4.4-11.0) H 05/09/21 17:05 MPV 12.1 fl (6.2-12.0) H 05/09/21 17:05 Neut % (Auto) 70.3 % (47-70) H 05/09/21 17:05 Absolute Neuts (auto) 8.4 X10^3/uL (2.0-7.7) H 05/09/21 17:05 Chloride 111 mmol/L (98-107) H 05/10/21 06:14 Anion Gap 4 (5-15) L 05/10/21 06:14 BUN 27 mg/dL (7-18) H 05/10/21 06:14 Creatinine 1.44 mg/dL (0.55-1.02) H 05/10/21 06:14 Est GFR (MDRD) Af Amer 46 mL/min (>60) L 05/10/21 06:14 Est GFR (MDRD) Non-Af 38 mL/min (>60) L 05/10/21 06:14 Glucose 143 mg/dL (74-106) H 05/09/21 17:05 Calcium 8.1 mg/dL (8.5-10.1) L 05/10/21 06:14 AST 38 U/L (15-37) H 05/09/21 17:05 ALT 59 U/L (13-56) H 05/09/21 17:05 Total Protein 5.8 g/dL (6.4-8.2) L 05/10/21 06:14 Albumin 2.9 g/dL (3.2-5.0) L 05/10/21 06:14 - Assessment Food and Nutrient Intake: Pt reports that she has been experiencing nausea and vomiting everyday since Friday. Reports that she couldn't eat anything during that time because it would upset her stomach and she would vomit. Reports that she started experiencing diarrhea and vomiting since she start a new medication ~1 month ago. She gets shots of the medication once a week and says that the symptoms have been progressively getting worse each week. Reports that the most recent dose brought on the most vomiting and diarrhea. States that she has a fair appetite since hospital admit. Reports that she has only had fluids since she's been at the hospital. Reports that the vomiting has gone away but is still experiencing diarrhea. Pt reports that she started losing weight since Friday. Pt's UBW is 180# and CBW is 171# representing 9#/5% weight loss in 3 days- significant for malnutrition. - Nutrition Diagnosis: Clinical Problem Acute Disease or Injury Related Malnutrition Clinical Problem - Etiology: severe, acute malnutrition r/t inability to tolerate PO intake d/t GI dysfunction Clinical Problem - Signs/Symptoms: as evidenced pt report of not consuming any food x3 days due to presence of vomiting and diarrhea upon ingestion of food, and 9#/5% weight loss in 3 days. Status: Active Problem - Protein Calorie Malnutrition Evidence of Malnutrition Exists: Yes Severe Protein Calorie Malnutrition:: Acute Illness/Injury - Nutrition Intervention Nutrition Prescription: 1,700-1,800kacl/day (RMR x 1.3). Protein 55-65g/day (0.8g/kg). Fluid 2,000-2,100mL/day (25mL/kg) - Food / Nutrient Delivery Interventions Summary of nutrition intervention:: Provide oral nutrition supplement Nutrition support ordered as / adjusted to:: Continue clear liquid diet and advance to regular diet as tolerated and when medically appropriate. Continue ensure clear [facility] until able to take adequate nutrition via PO diet. Appropriate for carbohydrate controlled diet when GI symptoms resolve. - MNT Monitoring Active Nutrition Patient: Yes Nutrition Status: Requires Follow Up 3-5 Days
[2021-05-10 12:31] VITALS: BMI 31.3
[2021-05-10] MEDS: Cholecalciferol (VIT D3) 25 MCG TABLET (1,000 UNITS) 50 MCG PO (16:00)
[2021-05-10] MEDS: Insulin Lispro 100 UNIT/ML INSULN.PEN SC (16:01)
[2021-05-10 17:00] VITALS: BP 96/51; PULSE 75; RESP 18; TEMP 36.9; O2SAT 96
[2021-05-10 20:38] VITALS: BP 119/48; PULSE 86; RESP 17; TEMP 36.8; O2SAT 96
[2021-05-10] MEDS: LORazepam 1 MG Tablet 2 MG PO (20:47)
[2021-05-10 21:01] LABS: Bedside Glucose 153 mg/dL (70-110)
[2021-05-11] VITALS (8 sets, daily range): BP systolic 87–158; BP diastolic 49–85; PULSE 67–94; RESP 16–18; TEMP 36.4–37.2; O2SAT 93–94
[2021-05-11] MEDS: Levothyroxine 112 MCG Tablet PO (06:51)
[2021-05-11 06:59] LABS: Absolute Lymphocyte Count 1.86 X10^3/uL (0.83-4.51); Absolute Neutrophil Count 2.9 X10^3/uL (2.0-7.7); Eosinophil# 0.22 X10^3/uL; Eosinophils% 4.1 % (0-5); Hematocrit 32.5 % (37-47); Hemoglobin 10.3 g/dL (12.0-15.0); Lymphocyte # 1.86 X10^3/ul (0.83-4.51); Mean Corp Hgb Conc 31.7 g/dL (32-36); Mean Corpuscular Hgb 29.9 pg (27.0-32.0); Mean Corpuscular Volume 94.5 fL (81-99); Mean Platelet Vol. 12.1 fl (6.2-12.0); Monocyte# 0.33 X10^3/uL; Monocyte% 6.2 % (0-10); NRBC Flagged by Analyzer 0 % (0-5); Neutrophil % 54.5 % (47-70); Platelet Count 120 K/mm3 (150-450); RBC Distribution Width CV 12.6 % (11.6-14.6); RBC Distribution Width SD 43.7 fl (35.1-43.9); Red Blood Count 3.44 M/mm3 (4.2-5.4); White Blood Count 5.3 K/mm3 (4.4-11.0)
[2021-05-11 07:00] LABS: Bedside Glucose 147 mg/dL (70-110)
[2021-05-11 07:28] LABS: ALB/GLOB Ratio 1.1 RATIO (0.9-2.4); AST(SGOT) 20 U/L (15-37); Alanine Aminotransfer ALT/SGPT 38 U/L (13-56); Albumin, Serum 2.9 g/dL (3.2-5.0); Alkaline Phosphatase 94 U/L (45-117); Anion Gap 6 (5-15); BUN 19 mg/dL (7-18); Calcium,Total 8.4 mg/dL (8.5-10.1); Chloride 110 mmol/L (98-107); Creatinine, Serum 1.36 mg/dL (0.55-1.02); EST Glomerular Filtration Rate 41 mL/min (>60); Est Glom Filt Rate - Afr Amer 50 mL/min (>60); Estimated Creatinine Clearance 30.88 ml/min; Globulin 2.7 g/dL (2.2-4.2); Glucose 153 mg/dL (74-106); Potassium 4.1 mmol/L (3.5-5.1); Protein, Total 5.6 g/dL (6.4-8.2); Sodium Level 139 mmol/L (136-145)
[2021-05-11] MEDS: Pantoprazole Sodium 40 MG Tablet PO (07:42)
[2021-05-11] MEDS: Citalopram 10 MG Tablet 30 MG PO (07:42)
[2021-05-11] MEDS: Metoprolol Tartrate 100 MG Tablet PO (07:43)
[2021-05-11] MEDS: Cholecalciferol (VIT D3) 25 MCG TABLET (1,000 UNITS) 50 MCG PO (07:45)
--- NOTE | 2021-05-11 08:48 | CASEMGMT ---
ASHLEY CM in to discuss HERRERA form with patient. RN CM explained HERRERA form, patient voiced understanding. Pt signed form and filed in chart. Pt provided with a copy of signed HERRERA form. Patient had no further questions or concerns at this time.
--- NOTE | 2021-05-11 08:52 | PCM.DC ---
Discharge Instructions Diet Discharge Diet: Low fat / Low cholesterol, 2000 Calorie Control Diet and 2000 mg Sodium Diet Activity Discharge Activity: Return to Normal Activity Follow Up Care Test Results: Test results from this visit will be discussed in further detail at your follow-up appointment, if applicable. Discharge Plan Admission Admit Date/Time: 05/09/21 21:41 Primary Reason for Your Visit: Intractable vomiting and diarrhea Attending Provider: Leslie Stevens Primary Care Provider: Mariano Pearce Instructions Additional Instructions / Restrictions: Continue to check your blood glucose before meals and at night. Follow-up with your primary care doctor within 1 week and showed them a log of your blood sugars. Discuss with your primary doctor options for type 2 diabetes treatment other than Trulicity. You need to repeat your blood kidney function test within a week as you came in with signs of dehydration. Continue to keep yourself hydrated. Discharge Orders/Prescriptions Prescriptions: Continued metoprolol tartrate 100 MG tablet 100 mg PO BID RF: 0 levothyroxine 100 MCG tablet 112 mcg PO DAILY RF: 0 lorazepam 1 MG tablet 2 mg PO QHS RF: 0 citalopram 10 MG tablet 30 mg PO DAILY RF: 0 ezetimibe 10 mg tablet 10 mg PO DAILY RF: 0 Lantus Solostar U-100 Insulin 100 unit/mL (3 mL) Insulin Pen 28 unit SUBCUT BID RF: 0 Otezla 30 mg Tablet 30 mg PO DAILY RF: 0 omeprazole 40 mg capsule,delayed release(DR/EC) 40 mg PO DAILY RF: 0 cholecalciferol (vitamin D3) [Vitamin D3] 50 mcg (2,000 unit) Capsule 50 mcg PO DAILY RF: 0 Discontinued Trulicity 0.75 mg/0.5 mL pen injector 0.75 mg SUBCUT SA RF: 0 No Action enalapril maleate [Vasotec] 20 MG tablet 20 mg PO BID RF: 0 Referrals / Follow Up: Mariano Pearce DO [Primary Care Provider] - Within 1 Week Disposition Disposition (needs filled in before D/C Order can be placed): Home, Self Care
--- NOTE | 2021-05-11 08:56 | DS.PCM_ITS ---
Providers Date of Admission: 05/09/21 Date of Discharge: 05/11/21 Primary Care Physician: Dr. Mariano Pearce DO Reason For Visit: VOMITING DIARRHEA Diagnosis Discharge Diagnosis (1) Intractable nausea and vomiting: Status: Resolved Code(s): R11.2 - Nausea with vomiting, unspecified (2) Acute kidney injury superimposed on CKD: Status: Acute Code(s): N17.9 - Acute kidney failure, unspecified; N18.9 - Chronic kidney disease, unspecified Medications at Discharge Home Medications enalapril maleate [Vasotec] 20 mg PO BID 08/06/14 levothyroxine 112 mcg PO DAILY 08/06/14 lorazepam 2 mg PO QHS 08/06/14 metoprolol tartrate 100 mg PO BID 08/06/14 citalopram 30 mg PO DAILY 05/22/15 Lantus Solostar U-100 Insulin 28 unit SUBCUT BID 05/09/21 Otezla 30 mg PO DAILY 05/09/21 cholecalciferol (vitamin D3) [Vitamin D3] 50 mcg PO DAILY 05/09/21 ezetimibe 10 mg PO DAILY 05/09/21 omeprazole 40 mg PO DAILY 05/09/21 Hospital Course Operations None Procedures None Summary of Care Provided Minutes Spent on Discharge: 40 Hospital Course: 70 y/o female with PMHx of Type DM, Hypertension, Hyperlipidemia who presents with vomiting and diarrhea ongoing for a couple of days. She has frequent bouts of diarrhea and vomiting is unable to keep any thing down. She is dizzy when she stands up. Patient's vitals in the ED were stable. Her creatinine was elevated above her baseline. Her lipase was 75. CT abdomen and pelvis was negative for any acute abnormality. Patient was managed symptomatically on the [facility] floor. She was managed on IV fluids and antiemetics. These symptoms were believed to be secondary to Trulicity. Patient continued to improve. She was discharged off Trulicity. Her blood sugars relatively low during this hospital stay. Her kidney function improved to baseline at discharge. She should follow-up with her primary care doctor within 1 to 2 weeks. She was told to discuss with her primary care doctor about options for blood sugar control. Physical Exam Narrative General: Alert, Oriented x3, Cooperative, No apparent distress, Well developed, obese HEENT: Atraumatic Oral: Moist Mucosa Neck: Supple Lungs: Clear to auscultation Cardiovascular: HS I+II, regular, no murmurs Abdomen: Bowel Sounds Present, Soft, Non Tender Extremities: No edema Skin: No rashes, No breakdown Neurological: Grossly intact Psych/Mental Status: Appropriate Weight / BMI Weight Weight: 77.7 kg Body Mass Index (BMI) 31.3 ABG / Lab / Microbiology Data Result Diagrams: 05/11/21 06:21 05/11/21 06:21 Laboratory: Laboratory Results - last 24 hr 05/10/21 05/10/21 05/11/21 11:04 20:43 06:21 WBC 5.3 RBC 3.44 L Hgb 10.3 L Hct 32.5 L MCV 94.5 MCH 29.9 MCHC 31.7 L RDW Std Deviation 43.7 RDW Coeff of Cara 12.6 Plt Count 120 L MPV 12.1 H Immature Gran % (Auto) 0.200 Neut % (Auto) 54.5 Lymph % (Auto) 35.0 [place] % (Auto) 6.2 Eos % (Auto) 4.1 Baso % (Auto) 0.0 Absolute Neuts (auto) 2.9 Absolute Lymphs (auto) 1.86 Nucleated RBC % 0 Sodium Potassium Chloride Carbon Dioxide Anion Gap BUN Creatinine Estim Creat Clear Calc Est GFR (MDRD) Af Amer Est GFR (MDRD) Non-Af BUN/Creatinine Ratio Glucose Calcium Total Bilirubin AST ALT Alkaline Phosphatase Total Protein Albumin Globulin Albumin/Globulin Ratio POC Glucose 142 H 153 H 05/11/21 05/11/21 06:21 06:50 WBC RBC Hgb Hct MCV MCH MCHC RDW Std Deviation RDW Coeff of Cara Plt Count MPV Immature Gran % (Auto) Neut % (Auto) Lymph % (Auto) [place] % (Auto) Eos % (Auto) Baso % (Auto) Absolute Neuts (auto) Absolute Lymphs (auto) Nucleated RBC % Sodium 139 Potassium 4.1 Chloride 110 H Carbon Dioxide 23.0 Anion Gap 6 BUN 19 H Creatinine 1.36 H Estim Creat Clear Calc 30.88 Est GFR (MDRD) Af Amer 50 L Est GFR (MDRD) Non-Af 41 L BUN/Creatinine Ratio 14.0 Glucose 153 H Calcium 8.4 L Total Bilirubin 0.20 AST 20 ALT 38 Alkaline Phosphatase 94 Total Protein 5.6 L Albumin 2.9 L Globulin 2.7 Albumin/Globulin Ratio 1.1 POC Glucose 147 H Microbiology: Microbiology 05/09/21 20:00 Enteric Bacteriology - Final Stool Microbiology 05/09/21 20:00 Stool Enteric Bacteriology - Final D/C Instructions Discharge Diet: Low fat / Low cholesterol, 2000 Calorie Control Diet and 2000 mg Sodium Diet Meaningful Use Info Meaningful Use Diagnoses (Choose all that apply): None applicable Discharge Plan Admission Admit Date/Time: 05/09/21 21:41 Primary Reason for Your Visit: Intractable vomiting and diarrhea Attending Provider: Leslie Stevens Primary Care Provider: Mariano Pearce Instructions Additional Instructions / Restrictions: Continue to check your blood glucose before meals and at night. Follow-up with your primary care doctor within 1 week and showed them a log of your blood sugars. Discuss with your primary doctor options for type 2 diabetes treatment other than Trulicity. You need to repeat your blood kidney function test within a week as you came in with signs of dehydration. Continue to keep yourself hydrated. Discharge Orders/Prescriptions Prescriptions: Continued metoprolol tartrate 100 MG tablet 100 mg PO BID RF: 0 levothyroxine 100 MCG tablet 112 mcg PO DAILY RF: 0 lorazepam 1 MG tablet 2 mg PO QHS RF: 0 citalopram 10 MG tablet 30 mg PO DAILY RF: 0 ezetimibe 10 mg tablet 10 mg PO DAILY RF: 0 Lantus Solostar U-100 Insulin 100 unit/mL (3 mL) Insulin Pen 28 unit SUBCUT BID RF: 0 Otezla 30 mg Tablet 30 mg PO DAILY RF: 0 omeprazole 40 mg capsule,delayed release(DR/EC) 40 mg PO DAILY RF: 0 cholecalciferol (vitamin D3) [Vitamin D3] 50 mcg (2,000 unit) Capsule 50 mcg PO DAILY RF: 0 Discontinued Trulicity 0.75 mg/0.5 mL pen injector 0.75 mg SUBCUT SA RF: 0 No Action enalapril maleate [Vasotec] 20 MG tablet 20 mg PO BID RF: 0 Referrals / Follow Up: Mariano Pearce DO [Primary Care Provider] - Within 1 Week Disposition Disposition (needs filled in before D/C Order can be placed): Home, Self Care Charges/Coding Visit Charges Inpatient E&M: 09461 Disch Hosp
--- NOTE | 2021-05-11 10:31 | PHA.DC.MR ---
Pharmacy Service has performed discharge medication reconciliation for this patient. The patient's discharge medication list was reviewed for discrepancies and discrepancies were resolved. Home Medications enalapril maleate [Vasotec] 20 mg PO BID 08/06/14 levothyroxine 112 mcg PO DAILY 08/06/14 lorazepam 2 mg PO QHS 08/06/14 metoprolol tartrate 100 mg PO BID 08/06/14 citalopram 30 mg PO DAILY 05/22/15 Lantus Solostar U-100 Insulin 28 unit SUBCUT BID 05/09/21 Otezla 30 mg PO DAILY 05/09/21 cholecalciferol (vitamin D3) [Vitamin D3] 50 mcg PO DAILY 05/09/21 ezetimibe 10 mg PO DAILY 05/09/21 omeprazole 40 mg PO DAILY 05/09/21
[2021-05-11 11:11] LABS: Bedside Glucose 194 mg/dL (70-110)
[2021-05-11] MEDS: Ondansetron ODT 4 MG Tablet PO (11:27)
[2021-05-11] MEDS: Insulin Lispro 100 UNIT/ML INSULN.PEN SC (11:31)
[2021-05-11] MEDS: 0.9% Normal Saline 1,000 ML 100 ML IV (14:30)
--- NOTE | 2021-05-11 14:33 | PCM.PN.HOSP ---
Subjective Subjective Patient was seen and examined. She was going to be discharged when she started having nausea and diarrhea. Her blood pressure was low in the 80s systolic Objective Data Objective Data Vital Signs: Vital Signs Temp Pulse Resp BP Pulse Ox 98.6 F 70 18 87/54 L 93 05/11/21 14:04 05/11/21 14:04 05/11/21 14:04 05/11/21 14:04 05/11/21 14:04 Oxygen Delivery Method Room Air Weight: 77.7 kg Body Mass Index (BMI) 31.3 Intake & Output: Intake and Output for Last 24 Hours 05/09/21 05/10/21 05/11/21 23:59 23:59 23:59 Intake Total 525 / 745 3940 / 3940 840 / 840 Balance 525 / 745 3940 / 3940 840 / 840 Lab / Micro Data Result Diagrams: 05/11/21 06:21 05/11/21 06:21 Labs: Laboratory Results - last 24 hr 05/10/21 05/11/21 05/11/21 20:43 06:21 06:21 WBC 5.3 RBC 3.44 L Hgb 10.3 L Hct 32.5 L MCV 94.5 MCH 29.9 MCHC 31.7 L RDW Std Deviation 43.7 RDW Coeff of Cara 12.6 Plt Count 120 L MPV 12.1 H Immature Gran % (Auto) 0.200 Neut % (Auto) 54.5 Lymph % (Auto) 35.0 [place] % (Auto) 6.2 Eos % (Auto) 4.1 Baso % (Auto) 0.0 Absolute Neuts (auto) 2.9 Absolute Lymphs (auto) 1.86 Nucleated RBC % 0 Sodium 139 Potassium 4.1 Chloride 110 H Carbon Dioxide 23.0 Anion Gap 6 BUN 19 H Creatinine 1.36 H Estim Creat Clear Calc 30.88 Est GFR (MDRD) Af Amer 50 L Est GFR (MDRD) Non-Af 41 L BUN/Creatinine Ratio 14.0 Glucose 153 H Calcium 8.4 L Total Bilirubin 0.20 AST 20 ALT 38 Alkaline Phosphatase 94 Total Protein 5.6 L Albumin 2.9 L Globulin 2.7 Albumin/Globulin Ratio 1.1 POC Glucose 153 H 05/11/21 05/11/21 06:50 11:03 WBC RBC Hgb Hct MCV MCH MCHC RDW Std Deviation RDW Coeff of Cara Plt Count MPV Immature Gran % (Auto) Neut % (Auto) Lymph % (Auto) [place] % (Auto) Eos % (Auto) Baso % (Auto) Absolute Neuts (auto) Absolute Lymphs (auto) Nucleated RBC % Sodium Potassium Chloride Carbon Dioxide Anion Gap BUN Creatinine Estim Creat Clear Calc Est GFR (MDRD) Af Amer Est GFR (MDRD) Non-Af BUN/Creatinine Ratio Glucose Calcium Total Bilirubin AST ALT Alkaline Phosphatase Total Protein Albumin Globulin Albumin/Globulin Ratio POC Glucose 147 H 194 H Micro: Microbiology 05/09/21 20:00 Stool Enteric Bacteriology - Final Physical Exam Narrative General: Alert, Oriented x3, Cooperative, No apparent distress, Well developed, obese HEENT: Atraumatic Oral: Moist Mucosa Neck: Supple Lungs: Clear to auscultation Cardiovascular: HS I+II, regular, no murmurs Abdomen: Bowel Sounds Present, Soft, Non Tender Extremities: No edema Skin: No rashes, No breakdown Neurological: Grossly intact Psych/Mental Status: Appropriate Assessment & Plan Assessment/Plan (1) Intractable nausea and vomiting: (2) Acute kidney injury superimposed on CKD: PLAN: 1. Acute intractable nausea and vomiting likely secondary to Trulicity side effect Stool for enteric panel is negative, will continue to treat symptomatically Continue on IV fluids, Imodium prn 2. Acute kidney injury, prerenal secondary to dehydration Baseline creatinine is 1.3, admitting creatinine 1.79, Creatinine today is back to baseline, continue on IV fluids, repeat blood work in a.m. 3. Type II DM, blood sugars currently controlled, off Trulicity, continue on the rest of home Lantus, insulin sliding scale 4. Rest of chronic medical conditions including hypertension, hypothyroidism, anxiety/depression remain stable Medications reviewed -continued Charges/Coding Visit Charges Inpatient E&M: 51778 Subs Hosp L2
--- NOTE | 2021-05-11 15:09 | NURSING ---
LATE ENTRY - BP 87/54. PT STATES DIARRHEA X2. DR MERCADO NOTIFIED & NEW ORDERS RECEIVED.
[2021-05-11 16:25] LABS: Bedside Glucose 127 mg/dL (70-110)
[2021-05-11] MEDS: Ondansetron 4 MG/2 ML Vial IV (18:36)
[2021-05-11] MEDS: LORazepam 1 MG Tablet 2 MG PO (20:55)
[2021-05-11 21:06] LABS: Bedside Glucose 159 mg/dL (70-110)
[2021-05-12] MEDS: 0.9% Normal Saline 1,000 ML 100 ML IV (00:20)
[2021-05-12 03:26] VITALS: BP 118/49; PULSE 73; RESP 16; TEMP 36.6; O2SAT 97
[2021-05-12 06:37] VITALS: BP 137/74; PULSE 78; RESP 16; TEMP 36.9; O2SAT 95
[2021-05-12] MEDS: Levothyroxine 112 MCG Tablet PO (06:41)
[2021-05-12 06:53] LABS: Absolute Neutrophil Count 5.4 X10^3/uL (2.0-7.7); Basophil# 0.02 X10^3/uL; Basophil% 0.2 % (0-1); Eosinophil# 0.23 X10^3/uL; Eosinophils% 2.7 % (0-5); Hematocrit 35.9 % (37-47); Hemoglobin 11.5 g/dL (12.0-15.0); Mean Corpuscular Hgb 29.9 pg (27.0-32.0); Mean Corpuscular Volume 93.2 fL (81-99); Monocyte# 0.38 X10^3/uL; Monocyte% 4.4 % (0-10); NRBC Flagged by Analyzer 0 % (0-5); Neutrophil # 5.44 X10^3/uL (2.7-7.7); Neutrophil % 63.2 % (47-70); Platelet Count 159 K/mm3 (150-450); RBC Distribution Width CV 12.4 % (11.6-14.6); RBC Distribution Width SD 42.5 fl (35.1-43.9); Red Blood Count 3.85 M/mm3 (4.2-5.4); White Blood Count 8.6 K/mm3 (4.4-11.0)
[2021-05-12 07:00] LABS: Bedside Glucose 121 mg/dL (70-110)
[2021-05-12 07:20] LABS: ALB/GLOB Ratio 1.1 RATIO (0.9-2.4); AST(SGOT) 18 U/L (15-37); Alanine Aminotransfer ALT/SGPT 37 U/L (13-56); Albumin, Serum 3.3 g/dL (3.2-5.0); Alkaline Phosphatase 92 U/L (45-117); Anion Gap 6 (5-15); BUN 15 mg/dL (7-18); BUN/Creat Ratio 12.4 RATIO (10-20); Calcium,Total 8.7 mg/dL (8.5-10.1); Chloride 111 mmol/L (98-107); Creatinine, Serum 1.21 mg/dL (0.55-1.02); EST Glomerular Filtration Rate 47 mL/min (>60); Est Glom Filt Rate - Afr Amer 57 mL/min (>60); Estimated Creatinine Clearance 34.71 ml/min; Globulin 3.1 g/dL (2.2-4.2); Glucose 113 mg/dL (74-106); Potassium 4.4 mmol/L (3.5-5.1); Protein, Total 6.4 g/dL (6.4-8.2); Sodium Level 141 mmol/L (136-145)
[2021-05-12] MEDS: Glucerna Shake 120 ML LIQUID PO (09:29)
[2021-05-12 09:30] VITALS: PULSE 78
[2021-05-12] MEDS: Metoprolol Tartrate 100 MG Tablet PO (09:30)
[2021-05-12] MEDS: Pantoprazole Sodium 40 MG Tablet PO (09:31)
[2021-05-12] MEDS: Cholecalciferol (VIT D3) 25 MCG TABLET (1,000 UNITS) 50 MCG PO (09:31)
[2021-05-12] MEDS: Citalopram 10 MG Tablet 30 MG PO (09:31)
[2021-05-12] MEDS: Insulin Lispro 100 UNIT/ML INSULN.PEN SC (11:03)
[2021-05-12 11:16] LABS: Bedside Glucose 163 mg/dL (70-110)
[2021-05-12 11:58] VITALS: O2SAT 96; O2SAT 97
== END 2021-05-12 14:02 | disposition home or self-care (01) ==
LOC: ED 20:57 → MS3 22:12
PROVIDERS: Emergency Provider Emergency Medicine; PCP Student in an Organized Health Care Education/Training Program; Visit Provider Internal Medicine
DX: R11.2 Nausea with vomiting, unspecified (principal); R19.7 Diarrhea, unspecified; E78.5 Hyperlipidemia, unspecified; E86.0 Dehydration; N17.9 Acute kidney failure, unspecified; E11.22 Type 2 diabetes mellitus with diabetic chronic kidney disease; I12.9 Hypertensive chronic kidney disease with stage 1 through stage 4 chronic kidney disease, or unspecified chronic kidney disease; N18.9 Chronic kidney disease, unspecified; Z79.899 Other long term (current) drug therapy; Z79.4 Long term (current) use of insulin; F41.9 Anxiety disorder, unspecified; F32.9 Major depressive disorder, single episode, unspecified; E03.9 Hypothyroidism, unspecified
CPT/HCPCS: 36415; 74176; 80053; 81001; 82962; 83605; 83690; 84484; 85025; 87506; 96361; 96374; 96376; 97110; 97802; 99218; 99284; J7030; A4216; G0378; J2405

== ENCOUNTER → 2025-03-22 | Outpatient (CLI) | payer MEDICARE, SELFPAY | END | disposition home or self-care (01) | LOC: SL 19:40 | PROVIDERS: PCP Student in an Organized Health Care Education/Training Program; Referring Provider Nurse Practitioner Family; Visit Provider Nurse Practitioner Family | DX: R06.83 Snoring (principal); F51.04 Psychophysiologic insomnia; K11.7 Disturbances of salivary secretion; G47.10 Hypersomnia, unspecified; G47.33 Obstructive sleep apnea (adult) (pediatric) | CPT/HCPCS: 95811 ==

== ENCOUNTER → 2025-05-17 | Outpatient (CLI) | payer MEDICARE, SELFPAY ==
[2025-05-17 17:43] LABS: Anion Gap 9 (5-15); BUN 17 mg/dL (4-19); BUN/Creat Ratio 14.2 RATIO (10-20); Calcium,Total 10.1 mg/dL (7.6-11.0); Carbon Dioxide 26.7 mmol/L (21.0-32.0); Chloride 106 mmol/L (98-108); Glucose 127 mg/dL (70-99); Potassium 5.2 mmol/L (3.3-5.1)
== END | disposition home or self-care (01) ==
LOC: LAB 14:29
PROVIDERS: PCP Student in an Organized Health Care Education/Training Program; Referring Provider Nurse Practitioner; Visit Provider Nurse Practitioner
DX: R94.4 Abnormal results of kidney function studies (principal)
CPT/HCPCS: 36415; 80048

== ENCOUNTER 2025-10-06 15:47 | Inpatient (IN) | payer MEDICARE, SELFPAY ==
[2025-10-06] VITALS (11 sets, daily range): BP systolic 108–175; BP diastolic 49–96; PULSE 60–66; RESP 15–20; TEMP 36.4–36.6; O2SAT 93–99; BMI 33.6; BMI 33.0
--- NOTE | 2025-10-06 16:07 | EX.ED.DYSGE1 ---
HPI History of Present Illness Chief Complaint: Chest Pain Detail of Chief Complaint: No real chest pain. She has had left shoulder discomfort and exertional dy Informant: patient Onset/Context/Timing Onset: Weeks Context: Gradual Onset Current Severity: Mild Maximum Severity: Mild Narrative Narrative: 74-year-old female history of psoriatic arthritis, reflux, hypertension, high cholesterol, diabetes, anemia and chronic kidney disease. She was seen today for her psoriatic arthritis by her physicians in [place]. She was told her blood count was running low and she should be seen. She states she has had recent exertional dyspnea for the last 2 weeks. Worse with walking. Really denies chest pain says she has some left shoulder discomfort. She has been anemic before. She does not believe she has ever needed a blood transfusion. She denies any black or bloody stools. Prior similar symptoms: Yes Recent Illness/Hospitalization: No PFSH [facility] Medical History Hearing loss, left Depression Anxiety Hypothyroidism Kidney stones GERD (gastroesophageal reflux disease) Non-smoker Diverticulosis Hyperlipidemia HTN (hypertension) Diabetes Home Medications ?Medication ?Instructions ?Recorded ?Last Taken ?Type enalapril maleate 20 mg tablet 20 mg PO BID BP 08/06/14 05/09/21 08:00 History (Vasotec) metoprolol tartrate 100 mg tablet 100 mg PO BID bp 08/06/14 05/09/21 08:00 History citalopram 10 mg tablet 30 mg PO DAILY anxiety 05/22/15 05/09/21 08:00 History cholecalciferol (vitamin D3) 50 50 mcg PO DAILY supplement 05/09/21 05/09/21 08:00 History mcg (2,000 unit) capsule (Vitamin D3) omeprazole 40 mg capsule,delayed 40 mg PO DAILY stomach 05/09/21 05/09/21 07:00 History release insulin glargine 100 unit/mL (3 45 unit subcut BID 10/06/25 Unknown History mL) subcutaneous pen (Basaglar KwikPen U-100 Insulin) levothyroxine 125 mcg tablet 125 mcg PO .COMPLEX 10/06/25 Unknown History trazodone 100 mg tablet 100 mg PO QHS 10/06/25 Unknown History Allergy/AdvReac Type Severity Reaction Status Date / Time latex Allergy Rash Verified 10/06/25 15:51 naproxen (From Naprosyn) Allergy Unknown Verified 10/06/25 15:51 rofecoxib (From Vioxx) Allergy Swelling Verified 10/06/25 15:51 simvastatin (From Zocor) Allergy sick to Verified 10/06/25 15:51 stomach Sulfa (Sulfonamide Allergy Hives Verified 10/06/25 15:51 Antibiotics) atorvastatin calcium (From AdvReac Pain in Verified 10/06/25 15:51 Lipitor) joints doxycycline calcium (From AdvReac Nausea Verified 10/06/25 15:51 Vibramycin) doxycycline hyclate (From AdvReac Nausea Verified 10/06/25 15:51 Vibramycin) doxycycline monohydrate AdvReac Nausea Verified 10/06/25 15:51 (From Vibramycin) erythromycin base AdvReac Nausea Verified 10/06/25 15:51 (Erythromycin Base) fluvastatin sodium (From AdvReac Nausea Verified 10/06/25 15:51 Lescol) niacin AdvReac Itching Verified 10/06/25 15:51 rosuvastatin calcium (From AdvReac Nausea Verified 10/06/25 15:51 Crestor) Family History Other Diabetes Surgical History History of appendectomy Social History Smoking Status: Never smoker alcohol intake: never substance use type: does not use ROS ROS ED ROS Narrative Exertional dyspnea. Constitutional Constitutional ED: Denies chills or fever(s) Eyes Eyes: Denies blurry vision ENT ENT ED: Denies ear pain Respiratory/Chest Respiratory/Chest: Reports dyspnea and dyspnea on exertion; Denies cough Gastrointestinal Gastrointestinal: Denies abdominal pain, constipation, diarrhea, melena, nausea or vomiting Genitourinary Genitourinary ED: Denies dysuria or hematuria Musculoskeletal Musculoskeletal: Denies arthralgias Integumentary Denies abscess Neurologic Neurologic: Denies headache(s) Psychiatric Psychiatric: Denies anxiety or depression Endocrine Endocrinology: Denies cold intolerance Hematologic/Lymphatic Hematologic/Lymphatic: Reports none and anemia Allergic/Immunologic Allergic/Immunologic ED: Denies mouth swelling, tongue swelling or urticaria EXAM Physical Exam Narrative Exam Narrative: Well-appearing 71-year-old female. Vital signs stable afebrile. Initial blood pressure 139/49. Heart rate 66. Pulse ox 96% on room air no signs hypoxia. No acute distress. H EENT exam pupils round react light. Moist mucous membranes. She does appear mildly pale. Neck nontender no lymphadenopathy. Back nontender. Lungs clear to auscultation bilaterally. Heart regular rhythm rate about 66 no murmur. Chest wall and ribs nontender. Abdomen soft nontender. Moving all 4 extremities. Normal process owner strength. Normal dorsi flexion. Calves nontender without edema or cords. Neurologically she is awake alert. Answering questions following commands. Rectal exam done female nurse present in the room. No blood or active bleeding. No melena. There was a few external hemorrhoids but they are nontender. Not thrombosed. Not bleeding. There is a small amount of liquid brown stool. It was sent for Hemoccult. No palpable mass. Const Vital Signs: 10/06/25 15:48 10/06/25 16:00 10/06/25 16:05 Temperature 97.9 F Temperature Source Temporal Pulse Rate 66 63 Respiratory Rate 18 19 H Respiratory Effort Blood Pressure 139/49 H 121/70 H Blood Pressure Mean 79 81 Pulse Ox 96 99 Oxygen Delivery Method Room Air Room Air 10/06/25 16:06 10/06/25 16:45 10/06/25 17:00 Temperature Temperature Source Pulse Rate 63 60 Respiratory Rate 19 H 20 H Respiratory Effort Normal Non-Labored Blood Pressure 127/63 H Blood Pressure Mean 84 Pulse Ox 95 Oxygen Delivery Method Room Air MDM MDM MDM Narrative Medical decision making narrative: 74-year-old reportedly anemic with exertional dyspnea she will undergo a cardiac workup with a type and screen. Repeat exam patient is doing well. She is aware of her test results. She is aware of the plan. Advice put in the hospitalist. She has been typed and crossed for 1 unit. Should be transfused 1 unit. She will be admitted for further evaluation. Hemoccult was sent and is pending. History & Record Review Discussion w/independent historian: Patient Additional record(s) reviewed:: Prior inpatient record, Prior ED visit and Prior labs Lab Data Attestation: I reviewed the patient's lab results. Lab results narrative: CBC shows white count 4.5. H&H is 7.4 and 24.9. No old CBCs available in our computer that are recent. The most recent one we have is from 2020. Hemoglobin was normal at that time. Platelets are 112. Blood type O-. Chemistries show a gap of 8. BUN and creatinine is 70-1.3. Glucose 206. Initial troponin 12. Labs: Laboratory Results - last 24 hr 10/06/25 10/06/25 16:02 16:06 WBC 4.5 RBC 2.93 L Hgb 7.4 L Hct 24.9 L MCV 85.0 MCH 25.3 L MCHC 29.7 L RDW Std Deviation 48.5 H RDW Coeff of Cara 15.7 H Plt Count 112 L MPV 12.6 H Immature Gran % (Auto) 0.200 Neut % (Auto) 67.7 Lymph % (Auto) 24.3 [place] % (Auto) 6.5 Eos % (Auto) 0.9 Baso % (Auto) 0.4 Absolute Neuts (auto) 3.0 Absolute Lymphs (auto) 1.08 Nucleated RBC % 0 Sodium 138 Potassium 4.9 Chloride 105 Carbon Dioxide 24.1 Anion Gap 8 BUN 17 Creatinine 1.30 H Estim Creat Clear Calc 38.60 L Est GFR (MDRD) Non-Af 43 L BUN/Creatinine Ratio 13.2 Glucose 206 H Calcium 8.9 Troponin T High Sens 12 POC Glucose 204 H Blood Type O NEGATIVE Antibody Screen NEGATIVE Radiography Chest X-Ray - ED: 2 View, Read by ED Physician, Normal, Heart, Lungs, Mediastinum, Bony Structures, No Acute Disease and Chronic Changes Diagnostic Testing: Clinical Impression(s) from Imaging Studies Chest X-Ray 10/06/25 16:14 IMPRESSION: Lateral left basilar hazy opacity, likely atelectasis or an infiltrate. Reading Location: [facility] Chest x-ray, 2 views, AP and lateral, interpreted by myself shows borderline cardiomegaly. Otherwise no acute process. No effusion. No failure. No pneumonia. Rhythm Strip Rhythm Strip: Sinus Rhythm Rate: 65 Ectopy: None EKG Initial EKG: Attestation: I personally reviewed and interpreted this EKG as follows: Interpretation: No Acute Injury Pattern Comments: Normal sinus rhythm rate of 65 no acute signs of NC nor ischemia. No dysrhythmia. Discharge Plan Dx/Rx/DC Orders Clinical Impression: Symptomatic anemia, Exertional dyspnea, Chronic kidney disease, History of diabetes mellitus Disposition Disposition: Acute Care Hospital [facility]
--- NOTE | 2025-10-06 16:14 | RAD_ITS ---
PROCEDURE: CHEST PA AND LATERAL 10/06/2025 REASON FOR EXAM: CHEST PAIN TECHNIQUE: Procedure Code: RADCXR Modality: DX Procedure: CHEST PA AND LATERAL COMPARISON: None. FINDINGS: LUNGS AND PLEURA: Small hazy opacity in the lateral left lung base. No pleural effusion or pneumothorax. HEART AND MEDIASTINUM: The cardiac silhouette is enlarged. The mediastinal contour is normal. AORTA: Mildly calcified aortic arch. BONES: No acute osseous abnormality. RAD/Chest PA and Lateral IMPRESSION: Lateral left basilar hazy opacity, likely atelectasis or an infiltrate. Reading Location: [id number]
[2025-10-06 16:29] LABS: Hematocrit 24.9 % (37-47); Hemoglobin 7.4 g/dL (12.0-15.0); Immature Granulocytes Count 0.010 X10^3/uL (0.0-0.0); Mean Corp Hgb Conc 29.7 g/dL (32-36); Mean Corpuscular Volume 85.0 fL (81-99); Mean Platelet Vol. 12.6 fl (6.2-12.0); NRBC Flagged by Analyzer 0 % (0-5); Platelet Count 112 K/mm3 (150-450); RBC Distribution Width CV 15.7 % (11.6-14.6); RBC Distribution Width SD 48.5 fl (35.1-43.9); Red Blood Count 2.93 M/mm3 (4.2-5.4); White Blood Count 4.5 K/mm3 (4.4-11.0)
[2025-10-06 17:21] LABS: Anion Gap 8 (5-15); BUN 17 mg/dL (4-19); BUN/Creat Ratio 13.2 RATIO (10-20); Calcium,Total 8.9 mg/dL (7.6-11.0); Carbon Dioxide 24.1 mmol/L (21.0-32.0); Chloride 105 mmol/L (98-108); Estimated Creatinine Clearance 38.60 ml/min (50-250); Glucose 206 mg/dL (70-99); Potassium 4.9 mmol/L (3.3-5.1); Troponin T High Sensitivity 12 ng/L (<=14)
--- NOTE | 2025-10-06 17:30 | PCM.HP.STD ---
HPI - General General Date of Admission: 10/06/25 Date of Service: 10/06/25 Chief Complaint: Worsening anemia and exertional dyspnea HPI Narrative AUSTIN CASE, is a 74 F who presented to [facility] ED on 10/06/2025 with worsening anemia and exertional dyspnea. Patient follows with [facility] primary care; reviewed [facility] notes. Medical history significant for type 2 diabetes mellitus, hypertension, CKD stage IIIa, hypothyroidism, and anxiety/depression. Importantly, patient was recently diagnosed with cirrhosis secondary to MASLD on MRI abdomen in May; read from that MRI was a cirrhotic liver with mild splenomegaly and esophageal varices with no ascites. She does have mild chronic thrombocytopenia with platelet count in the 110s to 120s. She also does have history of anemia of unclear etiology. Patient has had worsening shortness of breath with exertion over the past few days and saw her PCP in the office this morning. Her hemoglobin today was 7.4. On review of labs, her hemoglobin was 9.3 on 07/27 and then 8.3 on 09/16. Patient denies any dark or bloody stools. However given her symptomatic anemia, she was sent to the ED for further evaluation. In the ED her hemoglobin was 7.4. CBC and BMP were otherwise benign. Given these findings, hospitalist was contacted for admission. I saw the patient at bedside in the ED. Patient was pale and mildly fatigued appearing but otherwise sitting back comfortably in bed and answering questions appropriately. She denies any shortness of breath at rest. She has had some intermittent chest to left shoulder discomfort in the past few days as well especially with exertion, but she denies these symptoms currently too. He denies any fevers or chills. No other acute concerns at this time. Will be admitted for further management. [facility] Medical History Hearing loss, left Depression Anxiety Hypothyroidism Kidney stones GERD (gastroesophageal reflux disease) Non-smoker Diverticulosis Hyperlipidemia HTN (hypertension) Diabetes Home Medications ?Medication ?Instructions ?Recorded ?Last Taken ?Type enalapril maleate 20 mg tablet 20 mg PO BID BP 08/06/14 10/06/25 History (Vasotec) metoprolol tartrate 100 mg tablet 100 mg PO BID bp 08/06/14 10/06/25 History citalopram 10 mg tablet 30 mg PO DAILY anxiety 05/22/15 10/06/25 History cholecalciferol (vitamin D3) 50 50 mcg PO DAILY supplement 05/09/21 10/06/25 History mcg (2,000 unit) capsule (Vitamin D3) omeprazole 40 mg capsule,delayed 40 mg PO DAILY stomach 05/09/21 10/06/25 History release insulin glargine 100 unit/mL (3 45 unit subcut BID Bloodsugar 10/06/25 10/06/25 07:00 History mL) subcutaneous pen (Basaglar KwikPen U-100 Insulin) levothyroxine 125 mcg tablet 125 mcg PO .COMPLEX thyroid 10/06/25 10/06/25 History trazodone 100 mg tablet 100 mg PO QHS depression 10/06/25 10/05/25 History Allergy/AdvReac Type Severity Reaction Status Date / Time latex Allergy Rash Verified 10/06/25 15:51 naproxen (From Naprosyn) Allergy Unknown Verified 10/06/25 15:51 rofecoxib (From Vioxx) Allergy Swelling Verified 10/06/25 15:51 simvastatin (From Zocor) Allergy sick to Verified 10/06/25 15:51 stomach Sulfa (Sulfonamide Allergy Hives Verified 10/06/25 15:51 Antibiotics) atorvastatin calcium (From AdvReac Pain in Verified 10/06/25 15:51 Lipitor) joints doxycycline calcium (From AdvReac Nausea Verified 10/06/25 15:51 Vibramycin) doxycycline hyclate (From AdvReac Nausea Verified 10/06/25 15:51 Vibramycin) doxycycline monohydrate AdvReac Nausea Verified 10/06/25 15:51 (From Vibramycin) erythromycin base AdvReac Nausea Verified 10/06/25 15:51 (Erythromycin Base) fluvastatin sodium (From AdvReac Nausea Verified 10/06/25 15:51 Lescol) niacin AdvReac Itching Verified 10/06/25 15:51 rosuvastatin calcium (From AdvReac Nausea Verified 10/06/25 15:51 Crestor) Family History Other Diabetes Surgical History History of appendectomy Social History Smoking Status: Never smoker alcohol intake: never substance use type: does not use ROS Constitutional Constitutional: Reports fatigue; Denies chills, fever(s) or weakness Eyes Eyes: Denies change in vision Cardiovascular Cardiovascular: Reports dyspnea on exertion; Denies chest pain, edema, lightheadedness, orthopnea or palpitations Respiratory/Chest Respiratory/Chest: Denies cough, productive cough, shortness of breath at rest or wheezing Gastrointestinal Gastrointestinal: Denies abdominal pain, constipation, diarrhea, dyspepsia, nausea or vomiting Genitourinary Genitourinary: Denies dysuria Musculoskeletal Musculoskeletal: Denies arthralgias or myalgias Neurologic Neurologic: Denies dizziness, focal weakness or headache(s) Vital Signs Vital Signs Vital Signs: 10/06/25 15:48 10/06/25 16:00 10/06/25 16:05 Temperature 97.9 F Temperature Source Temporal Pulse Rate 66 63 Respiratory Rate 18 19 H Respiratory Effort Blood Pressure 139/49 H 121/70 H Blood Pressure Mean 79 81 Pulse Ox 96 99 Oxygen Delivery Method Room Air Room Air 10/06/25 16:06 10/06/25 16:45 10/06/25 17:00 Temperature Temperature Source Pulse Rate 63 60 Respiratory Rate 19 H 20 H Respiratory Effort Normal Non-Labored Blood Pressure 127/63 H Blood Pressure Mean 84 Pulse Ox 95 Oxygen Delivery Method Room Air Weight Weight: 83.461 kg Body Mass Index (BMI) 33.6 Physical Exam Const alert, oriented x3 and no apparent distress Constitutional Narrative: Elderly female, class I obesity, pale and mildly fatigued appearing, otherwise sitting back comfortably in bed and answering questions appropriately, in no acute distress. General Appearance: cooperative and comfortable HEENT normocephalic, head/scalp atraumatic, hearing grossly normal bilaterally, nasal mucous membranes and turbinates normal and moist oral mucous membranes Eyes PERRL, EOMs intact bilaterally and conjunctivae normal Neck full ROM Chest inspection of chest normal Resp normal respiratory effort, normal air movement, no use of accessory muscles and clear to auscultation bilaterally Cardio regular rate, regular rhythm, no murmurs and peripheral pulses 2+ throughout GI normal to inspection, nondistended, normoactive bowel sounds, soft to palpation, non-tender and non-distended Back/Spine normal ROM Extremity normal to inspection, full ROM and no pedal edema Skin no rashes or lesions noted Psych mental status grossly normal Results Lab / Micro Data 10/06/25 16:02 10/06/25 16:02 Labs: Laboratory Results - last 24 hr 10/06/25 16:02: WBC 4.5, RBC 2.93 L, Hgb 7.4 L, Hct 24.9 L, MCV 85.0, MCH 25.3 L, MCHC 29.7 L, RDW Std Deviation 48.5 H, RDW Coeff of Cara 15.7 H, Plt Count 112 L, MPV 12.6 H, Immature Gran % (Auto) 0.200, Neut % (Auto) 67.7, Lymph % (Auto) 24.3, [place] % (Auto) 6.5, Eos % (Auto) 0.9, Baso % (Auto) 0.4, Absolute Neuts (auto) 3.0, Absolute Lymphs (auto) 1.08, Nucleated RBC % 0, Sodium 138, Potassium 4.9, Chloride 105, Carbon Dioxide 24.1, Anion Gap 8, BUN 17, Creatinine 1.30 H, Estim Creat Clear Calc 38.60 L, Est GFR (MDRD) Non-Af 43 L, BUN/Creatinine Ratio 13.2, Glucose 206 H, Calcium 8.9, Troponin T High Sens 12, Blood Type O NEGATIVE, Antibody Screen NEGATIVE 10/06/25 16:06: POC Glucose 204 H Rhythm Strip Rhythm Strip: Sinus Rhythm Rate: 65 Ectopy: None Imaging Radiology Impression Chest X-Ray 10/06/25 16:14 IMPRESSION: Lateral left basilar hazy opacity, likely atelectasis or an infiltrate. Reading Location: [id number] Assessment & Plan Assessment/Plan (1) Symptomatic anemia: PLAN: Plan Patient is a 74-year-old female who presented to [facility] ED on 10/06/2025 with worsening anemia and dyspnea on exertion. 1. Acute on chronic symptomatic anemia ? Admit under inpatient status to PCU. GI consulted. Hemoglobin 7.4 on admit. Has slowly downtrended since early July. Highest suspicion is for slow upper GI bleed in setting of cirrhosis with esophageal varices as below. Will give 1 unit of blood at this time, follow-up a.m. CBC. IV PPI twice daily ordered. Okay for clear liquid diet for now and then n.p.o. at midnight with plan for EGD tomorrow. 2. Cirrhosis with esophageal varices secondary to MASLD ? Per PCP notes, was recently diagnosed with cirrhosis with esophageal varices on MRI abdomen in May. No ascites noted at that time. LFTs and INR pending. GI consulted as above. 3. Hypertension ? Patient hypertensive to the 170s systolic on admit. Heart rate stable in normal sinus rhythm in the 60s to 70s. Given suspected slow GI bleed and creatinine at baseline as below, okay to continue home enalapril and Lopressor at this time. IV hydralazine as as needed ordered as well. 4. CKD stage IIIa ? Creatinine 1.30 on admit, baseline 1.1-1.3. Stable. 5. Chronic mild thrombocytopenia ? Platelet count 112 on admit, stable baseline 110-120. 6. Type 2 diabetes mellitus ? Glucose 206 on admit. Will treat with reduced dose of Lantus 30 units twice daily and sliding scale insulin with meals, adjust as needed. 7. Anxiety/depression ? Stable. Continue home citalopram and trazodone at night. DVT prophylaxis: SCDs CODE STATUS: Full code, verified Expected disposition: Home, TBD Total clinical time spent by myself addressing the patient's medical issues, reviewing all the data, and collaborating with patient's care team: 81 minutes. Charges/Coding Visit Charges Inpatient E&M: 20687 Init Hosp L3
--- NOTE | 2025-10-06 18:30 | EX.PCM.CON.G ---
HPI Consult Data Date of Consult: 10/06/25 HPI Narrative Reason for Consultation: Anemia HPI Narrative: AUSTIN REES, is a 74-year-old female with a medical history of psoriatic arthritis, reflux, hypertension, high cholesterol, diabetes, anemia, and chronic kidney disease. She was seen today for psoriatic arthritis in [place], where her low blood count was noted. She reports a 2-week history of exertional dyspnea, worsening with walking. She denies chest pain but notes some left shoulder discomfort. She has a history of anemia but denies prior transfusions and black or bloody stools. She reports increased fatigue and somnolence. She also mentions increased abdominal distension. Hemoglobin on admission is 7.4 g/dL (down from 13.5 g/dL on 05/12/2021). MCV is 85 fL, and platelet count is 112,000/mcL. BUN is 17 mg/dL, and creatinine is 1.3 mg/dL. 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 A recent CT scan of the abdomen/pelvis reportedly showed a nodular liver, a large spleen, and esophageal varices. [facility] Medical History Hearing loss, left Depression Anxiety Hypothyroidism Kidney stones GERD (gastroesophageal reflux disease) Non-smoker Diverticulosis Hyperlipidemia HTN (hypertension) Diabetes Home Medications ?Medication ?Instructions ?Recorded ?Last Taken ?Type enalapril maleate 20 mg tablet 20 mg PO BID BP 08/06/14 05/09/21 08:00 History (Vasotec) metoprolol tartrate 100 mg tablet 100 mg PO BID bp 08/06/14 05/09/21 08:00 History citalopram 10 mg tablet 30 mg PO DAILY anxiety 05/22/15 05/09/21 08:00 History cholecalciferol (vitamin D3) 50 50 mcg PO DAILY supplement 05/09/21 05/09/21 08:00 History mcg (2,000 unit) capsule (Vitamin D3) omeprazole 40 mg capsule,delayed 40 mg PO DAILY stomach 05/09/21 05/09/21 07:00 History release insulin glargine 100 unit/mL (3 45 unit subcut BID 10/06/25 Unknown History mL) subcutaneous pen (Basaglar KwikPen U-100 Insulin) levothyroxine 125 mcg tablet 125 mcg PO .COMPLEX 10/06/25 Unknown History trazodone 100 mg tablet 100 mg PO QHS 10/06/25 Unknown History Allergy/AdvReac Type Severity Reaction Status Date / Time latex Allergy Rash Verified 10/06/25 15:51 naproxen (From Naprosyn) Allergy Unknown Verified 10/06/25 15:51 rofecoxib (From Vioxx) Allergy Swelling Verified 10/06/25 15:51 simvastatin (From Zocor) Allergy sick to Verified 10/06/25 15:51 stomach Sulfa (Sulfonamide Allergy Hives Verified 10/06/25 15:51 Antibiotics) atorvastatin calcium (From AdvReac Pain in Verified 10/06/25 15:51 Lipitor) joints doxycycline calcium (From AdvReac Nausea Verified 10/06/25 15:51 Vibramycin) doxycycline hyclate (From AdvReac Nausea Verified 10/06/25 15:51 Vibramycin) doxycycline monohydrate AdvReac Nausea Verified 10/06/25 15:51 (From Vibramycin) erythromycin base AdvReac Nausea Verified 10/06/25 15:51 (Erythromycin Base) fluvastatin sodium (From AdvReac Nausea Verified 10/06/25 15:51 Lescol) niacin AdvReac Itching Verified 10/06/25 15:51 rosuvastatin calcium (From AdvReac Nausea Verified 10/06/25 15:51 Crestor) Family History Other Diabetes Surgical History History of appendectomy Social History Smoking Status: Never smoker alcohol intake: never substance use type: does not use ROS Constitutional Constitutional: Denies fatigue, fever(s), poor appetite, weight gain or weight loss Gastrointestinal Gastrointestinal: Reports bloating, nausea and weight changes; Denies belching, change in bowel habits, change in stool character, chewing difficulty, coffee ground emesis, constipation, cramping, diarrhea, dyspepsia, dysphagia, early satiety, excessive flatus, fecal incontinence, heartburn, hematemesis, hematochezia, hemorrhoids, loose stools, melena, odynophagia, rectal bleeding, tenesmus or vomiting Physical Exam Const alert, oriented x3, no apparent distress and healthy appearing General Appearance: cooperative GI normal to inspection, nondistended, normoactive bowel sounds, soft to palpation and non-tender GI Narrative: Abdomen mildly distended with ventral hernia. No clear fluid wave Percussion: normal to percussion Rectal Exam: deferred Lab / Micro Data 10/06/25 16:02 10/06/25 16:02 Labs: Laboratory Results - last 24 hr 10/06/25 16:02: WBC 4.5, RBC 2.93 L, Hgb 7.4 L, Hct 24.9 L, MCV 85.0, MCH 25.3 L, MCHC 29.7 L, RDW Std Deviation 48.5 H, RDW Coeff of Cara 15.7 H, Plt Count 112 L, MPV 12.6 H, Immature Gran % (Auto) 0.200, Neut % (Auto) 67.7, Lymph % (Auto) 24.3, [place] % (Auto) 6.5, Eos % (Auto) 0.9, Baso % (Auto) 0.4, Absolute Neuts (auto) 3.0, Absolute Lymphs (auto) 1.08, Nucleated RBC % 0, Sodium 138, Potassium 4.9, Chloride 105, Carbon Dioxide 24.1, Anion Gap 8, BUN 17, Creatinine 1.30 H, Estim Creat Clear Calc 38.60 L, Est GFR (MDRD) Non-Af 43 L, BUN/Creatinine Ratio 13.2, Glucose 206 H, Calcium 8.9, Troponin T High Sens 12, Blood Type O NEGATIVE, Antibody Screen NEGATIVE 10/06/25 16:06: POC Glucose 204 H 10/06/25 16:10: Crossmatch See Detail Micro: Microbiology 10/06/25 17:00 Stool Stool Occult Blood (SACHIN) - Final Occult Blood Positive Rhythm Strip Rhythm Strip: Sinus Rhythm Rate: 65 Ectopy: None Imaging Radiology Impression Chest X-Ray 10/06/25 16:14 IMPRESSION: Lateral left basilar hazy opacity, likely atelectasis or an infiltrate. Reading Location: [facility] Assessment & Plan Assessment/Plan (1) GI bleed: (2) Cirrhosis: (3) Symptomatic anemia: PLAN: The patient presents with symptomatic, moderate anemia (hemoglobin 7.4 g/dL) and new exertional dyspnea. The anemia is likely multifactorial. Gastrointestinal Bleed (Occult):?Given the diagnosis of esophageal varices and history of cirrhosis, a slow, occult GI bleed is a primary concern, despite the patient's denial of ifeoma blood or melena. The gradual drop in hemoglobin supports a chronic process. Anemia of Chronic Disease:?Her multiple chronic inflammatory conditions (psoriatic arthritis, chronic kidney disease, possible cirrhosis) contribute to suppressed red blood cell production. Cirrhosis/Hypersplenism:?The large spleen noted on imaging suggests hypersplenism, which can contribute to pancytopenia (including low platelets and anemia). Check ammonia level and alpha-fetoprotein. Nutritional/CKD:?Chronic kidney disease can impair erythropoietin production, and potential dietary issues related to her complex health status could contribute. The patient's exertional dyspnea is likely due to the severity of her anemia. Diagnosis of Anemia Etiology: Evaluate the status of the esophageal varices and rule out active bleeding as the primary cause of anemia. Recommend esophagogastroduodenoscopy (EGD) for evaluation and potential intervention (e.g., banding). Ceftriaxone 1 g IV. Labs: Obtain a full iron panel (serum iron, ferritin, transferrin, transferrin saturation) to assess iron stores. Obtain a Fecal Immunochemical Test (FIT) or fecal occult blood test (FOBT) to screen for ongoing occult GI bleeding. Check B12 and folate levels to rule out nutritional deficiencies. Further Imaging:?Repeat CT scan images and official report to confirm findings of varices, liver nodularity, and splenomegaly. Management of Anemia Symptoms: Transfuse 1 unit of packed red blood cells (PRBCs) for symptomatic relief of dyspnea, targeting a hemoglobin level above 8.0 g/dL. Monitor closely for signs of fluid overload, especially given potential liver disease. Continue to monitor serial hemoglobin and hematocrit levels. Management of Chronic Conditions: Monitor renal function (BUN/Cr) and adjust medications as needed. Patient Education/Monitoring: Counseled the patient on signs of GI bleeding (melena, hematochezia), worsening fatigue, and dyspnea. Ensure follow-up is established with the [facility] hepatology team regarding the HAN-induced cirrhosis diagnosis and management plan. Charges/Coding Visit Charges Inpatient E&M: 62480 Init Hosp L3
[2025-10-06] MEDS: Pantoprazole Sodium 40 MG in 0.9% Normal Saline (100mL MB+) 100 ML 330 MG IV (18:54)
[2025-10-06 19:14] LABS: Troponin T High Sens 2 HR 13 ng/L (<=14)
--- OUTSIDE RECORDS SUMMARY | 2025-10-06 19:23 | XMS RPT_ITS | CCD ---
Author Organization [facility] Care Team Providers Care Outpatient Scheduler Name Role Phone CURRY KINGSTON Unavailable Unavailable CURRY KINGSTON Unavailable Unavailable Mariano Pearce DO [facility] Un[facility] DO [facility] Unavailable Mariano Pearce DO Primary Care Provider [facility], [place] Unavailable MARIANO PEARCE Primary Care Unavailable BARNEY REED Attending Unavailable VANESSA GARY Referring Unavailable ROLA MURO Admitting Unavailable MARIANO PEARCE Primary Care Unavailable ROLA MURO Attending Unavailable Paneccasio RP, Greta [facility] [place] Unavailable Mariano Pearce DO Primary Care Provider Ruvalcaba CUSTOMER CARE REPRESENTATIVE.Naya COLON Unavailable Rosalba CUSTOMER CARE REPRESENTATIVE.Demetra COLON Unavailable Ruvalcaba CUSTOMER CARE REPRESENTATIVE.Naya COLON Unavailable Dr. Mariano Pearce DO Primary Care Provider Rosalba BOILER ROOM OPERATOR-CDemetra Attending Provider Rosalba BOILER ROOM OPERATOR-CDemetra Referring Provider Ari CUSTOMER CARE REPRESENTATIVE.WARP DYEING TENDERCaridad Unavailable [phone] [place], Ashley Attending Provider [phone] [place], Ashley Referring Provider [place], Ashley Attending Unavailable Pearce, Mariano Primary Care Unavailable Ashley Cabrera Referring Unavailable Pearce, Mariano Primary Care Unavailable Rosalba BOILER ROOM OPERATOR, Demetra Referring Unavailable Rosalba BOILER ROOM OPERATOR, Demetra Attending Unavailable PEARCE, MARIANO L Primary Care Unavailable PEARCE, MARIANO L Referring Unavailable BLANCA KING Attending Unavailable PEARCE, MARIANO L Primary Care Unavailable BLANCA KING Referring Unavailable PEARCE, MARIANO L Primary Care Unavailable SELF Referring Unavailable PEARCE, MARIANO L Primary Care Unavailable ARI CARIDAD TANK Referring Unavailable PEARCE, MARIANO L Primary Care Unavailable ARI CARIDAD TANK Referring Unavailable ANTOINETTE REDDY Attending Unavailable PEARCE, MARIANO L Primary Care Unavailable SELF Referring Unavailable PEARCE, MARIANO L Attending Unavailable PEARCE, MARIANO L Primary Care Unavailable BLANCA KING Referring Unavailable BALNCA KING Attending Unavailable PEARCE, MARIANO L Primary Care Unavailable PEARCE, MARIANO L Referring Unavailable PEARCE, MARIANO L Primary Care Unavailable SELF Referring Unavailable ARICARIDAD García Attending Unavailable PEARCE, MARIANO L Primary Care Unavailable SELF Referring Unavailable ARIOBEYCARIDAD TANK Attending Unavailable PEARCE, MARIANO L Primary Care Unavailable DEMETRA NAVARRETE Attending Unavailable PEARCE, MARIANO L Primary Care Unavailable DEMETRA NAVARRETE Referring Unavailable PEARCE, MARIANO L Primary Care Unavailable PEARCE, MARIANO L Attending Unavailable PEARCE, MARIANO L Primary Care Unavailable BLANCA KING Referring Unavailable PEARCE, MARIANO L Primary Care Unavailable SELF Referring Unavailable PEARCE, MARIANO L Primary Care Unavailable NAYA RUVALCABA Referring Unavailabl e PEARCE, MARIANO L Primary Care Unavailable NAYA RUVALCABA Referring Unavailabl e PEARCE, MARIANO L Primary Care Unavailable NAYA RUVALCABA Referring Unavailabl e PEARCE, MARIANO L Primary Care Unavailable NAYA RUVALCABA Referring Unavailabl e PEARCE, MARIANO L Primary Care Unavailable NAYA RUVALCABA Attending Unavailabl e PEARCE, MARIANO L Primary Care Unavailable SELF Referring Unavailable PEARCE, MARIANO L Primary Care Unavailable BLANCA KING Referring Unavailable PEARCEMARIANO L Primary Care Unavailable PEARCE, MARIANO L Referring Unavailable PEARCE, MARIANO L Primary Care Unavailable PEARCE, MARIANO L Referring Unavailable PEARCE, MARIANO L Primary Care Unavailable PEARCE, MARIANO L Referring Unavailable KIM QUINN Attending Unavailable PEARCE, MARIANO L Primary Care Unavailable SELF Referring Unavailable PEARCE, MARIANO L Primary Care Unavailable PEARCE, MARIANO L Referring Unavailable PEARCE, MARIANO L Primary Care Unavailable PEARCE, MARIANO L Primary Care Unavailable NAYA RUVALCABA Referring Unavailabl e PEARCE, MARIANO L Primary Care Unavailable NAYA RUVALCABA Referring Unavailabl e PEARCE, MARIANO L Primary Care Unavailable ROSALBADEMETRA Referring Unavailable PEARCE, MARIANO L Primary Care Unavailable SELF Referring Unavailable PEARCE, MARIANO L Primary Care Unavailable PEARCE, MARIANO L Referring Unavailable PEARCE, MARIANO L Primary Care Unavailable BLANCA KING Referring Unavailable BLANCA KING Attending Unavailable Allergies Allergy Classification Reported Allergen(s) Allergy Type Date of Onset Reaction(s) Facility Doxycycline (1 source) Doxycycline Drug Allergy 5 GI Upset [facility] dulaglutide (1 source) dulaglutide Drug Allergy 1 GI Upset [facility] Work Phone: HMG-CoA Reductase Inhibitors (statins) (5 sources) rosuvastatin Drug Allergy 5 Other: See Comments, GI Upset, Intolerance, Myalgia [facility] Iodine (and Iodine containting drugs) (1 source) Iodine Drug Allergy 8 Rash [facility] Latex (1 source) Latex Substance Allergy 6 [facility] Macrolides (antibiotic) (1 source) Erythromycin Drug Allergy 5 GI Upset [facility] Work Phone: Niacin (1 source) Niacin Drug Allergy 2 Itching [facility] Work Phone: NSAIDs (1 source) Naproxen Drug Allergy 5 [facility] rofecoxib (1 source) rofecoxib Drug Allergy 5 Swelling [facility] Sulfonamides (antibiotic) (1 source) Sulfonamides (Antibiotic) Drug Allergy 5 Hives [facility] (20 sources) atorvastatin; Translations: [ATORVASTATIN CALCIUM] Drug Allergy 0 Intolerance [facility] (20 sources) doxycycline; Translations: [DOXYCYCLINE CALCIUM] Drug Allergy 5 GI Upset [facility] (20 sources) erythromycin; Translations: [ERYTHROMYCIN] Drug Allergy 5 GI Upset [facility] (20 sources) fluvastatin; Translations: [FLUVASTATIN SODIUM] Drug Allergy 5 GI Upset [facility] (20 sources) Hmg-Coa Reductase Inhibitors (Statins); Translations: [PNAXEDM-XFQ-MEO REDUCTASE INHIBITORS] Propensity to adverse reactions to drug (disorder) 7 Intolerance [facility] (20 sources) Latex; Translations: [LATEX] Propensity to adverse reactions to drug (disorder) 6 Rash [facility] (20 sources) naproxen; Translations: [NAPROXEN] Drug Allergy 5 Unknown [facility] (20 sources) niacin; Translations: [NIACIN] Drug Allergy 2 Itching [facility] (20 sources) rofecoxib; Translations: [ROFECOXIB] Drug Allergy 5 Swelling [facility] (20 sources) rosuvastatin; Translations: [ROSUVASTATIN CALCIUM] Drug Allergy 2 Other: See Comments [facility] (20 sources) simvastatin; Translations: [SIMVASTATIN] Drug Allergy 5 sick to stomach [facility] (20 sources) Sulfonamides (Antibiotic); Translations: [SULFA (SULFONAMIDE ANTIBIOTICS)] Propensity to adverse reactions to drug (disorder) 5 Hives [facility] (20 sources) dulaglutide; Translations: [[facility]LUTIDE] [facility] (20 sources) Iodine; Translations: [IODINE] Drug Allergy 8 Rash [facility] (20 sources) Pravastatin; Translations: [PRAVASTATIN] Drug Allergy 0 Myalgia [facility] Work Phone: (3 sources) Doxycycline; Translations: [doxycycline hyclate] Drug Allergy 1 Nausea [facility] (3 sources) Doxycycline; Translations: [doxycycline monohydrate] Drug Allergy 1 Nausea [facility] (2 sources) Erythromycin Drug Allergy 1 Nausea [facility] (1 source) Erythromycin Drug Allergy 1 [facility] (1 source) ezetimibe; Translations: [EZETIMIBE] Drug Allergy 5 [facility] Repository Medications Current Medications Medication Drug Class(es) Dates Sig (Normalized) Sig (Original) amoxicillin 875 mg oral tablet (2 sources) Penicillin-class Antibacterial Start: 07-30-2023 End: 08-09-2023 take 1 tablet by mouth twice daily amoxicillin (AMOXIL) 875 mg tablet Indications: Acute non-recurrent maxillary sinusitis Take 1 tablet by mouth twice daily for 10 days. 20 tablet 0 07/30/2023 08/09/2023 Active Comment on above: Take 1 tablet by con th twice daily for 10 days. amoxicillin 875 mg / clavulanate 125 mg oral tablet (3 sources) Penicillin-class Antibacterial Start: 10-30-2022 End: 11-09-2022 take 1 tablet by mouth twice daily amoxicillin-clavu lanic acid (AUGMENTIN) 875-125 mg per tablet Indications: Acute non-recurrent maxillary sinusitis Take 1 tablet by mouth twice daily for 10 days. 20 tablet 0 10/30/2022 11/09/2022 Active Comment on above: Take 1 tablet by con th twice daily for 10 days. apremilast 30 mg oral tablet (20 sources) Start: 05-09-2021 End: 02-01-2025 take 1 tablet by mouth once daily Apremilast (Otezla) 30 mg Tablet Active 30 mg PO DAILY May 09, 2021 12:00am psoriasis Comment on above: Take 30 mg by mouth once daily. Blood Glucose Control, Normal (GLUCOSE CONTROL) soln (2 sources) Start: 09-24-2024 End: 09-24-2024 Blood Glucose Control, Normal (GLUCOSE CONTROL) soln Indications: Type 2 diabetes mellitus with stage 3a chronic kidney disease, with long-term current use of insulin (HCC) Test Four times a day. Insulin Dep? Yes E11.9 DM 2 1 Each 11 09/24/2024 09/24/2024 Active Start: 09-23-2024 End: 09-23-2024 Blood Glucose Control, Ginna l (GLUCOSE CONTROL) soln Indications: Type 2 diabetes mellitus with stage 3a chronic kidney disease, with long-term current use of insulin (HCC) Test Four times a day. Insulin Dep? Yes E11.9 DM 2 1 Each 11 09/23/2024 09/23/2024 Discontinued Blood-Glucose Meter (20 sources) Start: 09-30-2024 Blood-Glucose Meter Use to check blood sugar daily 1 Each 09/30/2024 Active Start: 09-24-2024 End: 09-24-2024 Blood-Glucose Meter Indicati ons: Type 2 diabetes mellitus with stage 3a chronic kidney disease, with long-term current use of insulin (HCC) Test Four times a day. Insulin Dep? Yes E11.9 DM 2 1 Each 09/24/2024 09/24/2024 Active Start: 09-23-2024 End: 09-23-2024 Blood-Glucose Meter Indicati ons: Type 2 diabetes mellitus with stage 3a chronic kidney disease, with long-term current use of insulin (HCC) Test Four times a day. Insulin Dep? Yes E11.9 DM 2 1 Each 09/23/2024 09/23/2024 Discontinued Start: 04-10-2023 End: 07-28-2024 Blood-Glucose Meter Use to c heck blood sugar daily 1 Each 04/10/2023 07/28/2024 Discontinued Start: 04-10-2023 Blood-Glucose Meter Use to check blood sugar daily 1 Each 04/10/2023 Active Start: 04-10-2023 Blood-Glucose Meter Use to check blood sugar daily 1 Each 0 04/10/2023 Active Comment on above: Use to check blood s ugar daily Blood-Glucose Meter monitoring kit (1 source) Start: 07-28-2024 End: 07-29-2024 Blood-Glucose Meter monitoring kit Glucose Meter of Choice - Kit - Dx: Type 2 DM - Uncontrolled E11.65 1 Each 07/28/2024 07/29/2024 Active Blood-Glucose Meter,Continuous (FREESTYLE BETSEY 3 READER) misc (20 sources) Start: 08-03-2024 Blood-Glucose Meter,Continuous (FREESTYLE BETSEY 3 READER) misc Use to monitor blood glucose continuously 1 Each 08/03/2024 Active Start: 07-30-2024 End: 08-03-2024 Blood-Glucose Meter,Continuo us (FREESTYLE BETSEY 3 READER) misc Use to monitor blood glucose continuously 1 Each 07/30/2024 08/03/2024 Discontinued Start: 07-30-2024 Blood-Glucose Meter,Continuous (FREESTYLE BETSEY 3 READER) misc Use to monitor blood glucose continuously 1 Each 07/30/2024 Active Start: 07-28-2024 End: 07-30-2024 Blood-Glucose Meter,Continuo us (FREESTYLE BETSEY 3 READER) misc Indications: Type 2 diabetes mellitus with stage 3 chronic kidney disease, with long-term current use of insulin, unspecified whether stage 3a or 3b CKD (HCC) Use to check blood sugar at least four (4) times daily. 1 Each 07/28/2024 07/30/2024 Discontinued Start: 07-28-2024 Blood-Glucose Meter,Continuous (FREESTYLE BETSEY 3 READER) misc Indications: Type 2 diabetes mellitus with stage 3 chronic kidney disease, with long-term current use of insulin, unspecified whether stage 3a or 3b CKD (HCC) Use to check blood sugar at least four (4) times daily. 1 Each 07/28/2024 Active Start: 07-27-2024 End: 07-28-2024 Blood-Glucose Meter,Continuo us (FREESTYLE BETSEY 3 READER) misc Indications: Type 2 diabetes mellitus with stage 3 chronic kidney disease, with long-term current use of insulin, unspecified whether stage 3a or 3b CKD (HCC) Use to check blood sugar at least four (4) times daily. 1 Each 07/27/2024 07/28/2024 Discontinued Start: 07-27-2024 Blood-Glucose Meter,Continuous (FREESTYLE BETSEY 3 READER) misc Indications: Type 2 diabetes mellitus with stage 3 chronic kidney disease, with long-term current use of insulin, unspecified whether stage 3a or 3b CKD (HCC) Use to check blood sugar at least four (4) times daily. 1 Each 07/27/2024 Active Blood-Glucose Sensor (FREEST YLE BETSEY 3 SENSOR) magdi (20 sources) Start: 08-03-2024 Blood-Glucose Sensor (FREESTYLE BETSEY 3 SENSOR) magdi Apply new sensor to back of upper arm every 14 days 6 Each 4 08/03/2024 Active Start: 07-30-2024 End: 08-03-2024 Blood-Glucose Sensor (FREEST YLE BETSEY 3 SENSOR) magdi Apply new sensor to back of upper arm every 14 days 6 Each 4 07/30/2024 08/03/2024 Discontinued Start: 07-30-2024 Blood-Glucose Sensor (FREESTYLE BETSEY 3 SENSOR) magdi Apply new sensor to back of upper arm every 14 days 6 Each 4 07/30/2024 Active Start: 07-28-2024 End: 07-30-2024 Blood-Glucose Sensor (FREEST YLE BETSEY 3 SENSOR) magdi Indications: Type 2 diabetes mellitus with stage 3 chronic kidney disease, with long-term current use of insulin, unspecified whether stage 3a or 3b CKD (HCC) Apply new sensor every fourteen (14) days to upper arm. 6 Each 07/28/2024 07/30/2024 Discontinued Start: 07-28-2024 Blood-Glucose Sensor (FREESTYLE BETSEY 3 SENSOR) magdi Indications: Type 2 diabetes mellitus with stage 3 chronic kidney disease, with long-term current use of insulin, unspecified whether stage 3a or 3b CKD (HCC) Apply new sensor every fourteen (14) days to upper arm. 6 Each 07/28/2024 Active Start: 07-27-2024 End: 07-28-2024 Blood-Glucose Sensor (FREEST YLE BETSEY 3 SENSOR) magdi Indications: Type 2 diabetes mellitus with stage 3 chronic kidney disease, with long-term current use of insulin, unspecified whether stage 3a or 3b CKD (HCC) Apply new sensor every fourteen (14) days to upper arm. 6 Each 07/27/2024 07/28/2024 Discontinued Start: 07-27-2024 Blood-Glucose Sensor (FREESTYLE BETSEY 3 SENSOR) magdi Indications: Type 2 diabetes mellitus with stage 3 chronic kidney disease, with long-term current use of insulin, unspecified whether stage 3a or 3b CKD (HCC) Apply new sensor every fourteen (14) days to upper arm. 6 Each 4 07/27/2024 Active cefdinir 300 mg oral capsule (4 sources) Cephalosporin Antibacterial Start: 11-27-2022 End: 12-07-2022 take 1 capsule by mouth twice daily cefdinir (OMNICEF) 300 mg capsule Take 1 capsule by mouth twice daily for 10 days. 20 capsule 0 11/27/2022 12/07/2022 Active Comment on above: Take 1 capsule by mo uth twice daily for 10 days. cephalexin 500 mg oral capsule (1 source) Cephalosporin Antibacterial Start: 02-07-2025 End: 02-12-2025 take 1 capsule by mouth twice daily cephALEXin (KEFLEX) 500 mg capsule Take 1 capsule by mouth two times a day for 5 days. 10 capsule 02/07/2025 02/12/2025 Active cholecalciferol 0.05 mg oral capsule (20 sources) Vitamin D Start: 05-09-2021 take 1 capsule by mouth once daily Cholecalciferol (Vitamin D3) (Vitamin D3) 50 mcg (2,000 unit) Capsule Active 50 ug PO DAILY May 09, 2021 12:00am supplement take 1 tablet by mouth once kathryn y cholecalciferol (VITAMIN D3) 50 mcg (2,000 unit) tablet Take one tablet by mouth once daily Friday through Friday. Active Comment on above: Take 2,000 Units by mouth once daily. Take one tablet by m outh once daily Friday through Friday. citalopram 10 mg oral tablet (20 sources) Serotonin Reuptake Inhibitor Start: 07-27-2024 End: 10-09-2025 take 1 tablet by mouth once daily citalopram hydrobromide (CELEXA) 10 mg tablet Take 1 tablet by mouth once daily. 30 tablet 2 07/11/2025 10/09/2025 Active Start: 02-23-2024 End: 07-27-2024 take 1 tablet by mouth once daily citalopram (CELEXA) 20 mg tablet Take 1 tablet by mouth once daily. 90 tablet 3 02/23/2024 07/27/2024 Discontinued Start: 08-20-2021 End: 02-20-2024 take 1 tablet by mouth once daily citalopram (CELEXA) 20 mg tablet Take 1 tablet by mouth once daily. 14 tablet 08/23/2021 02/20/2023 Discontinued Start: 08-20-2021 End: 02-20-2023 take 1 tablet by mouth once daily citalopram hydrobromide (CELEXA) 10 mg tablet Indications: Situational anxiety Take 1 tablet by mouth once daily. 90 tablet 3 08/20/2021 02/20/2023 Discontinued Start: 05-22-2015 take 3 tablets by mo [facility] once daily Citalopram 10 MG tablet Active 30 mg PO DAILY May 22, 2015 12:00am anxiety Comment on above: Take 1 tablet by con once daily. TAKE 1 TABLET DAILY clonazePAM 0.5 mg oral tablet (20 sources) Benzodiazepine Start: End: take 1 tablet by mouth at bedtime as needed clonazePAM (KLONOPIN) 0.5 mg tablet Indications: Chronic insomnia Take 1 tablet by mouth at bedtime as needed for up to 15 days. Only if trazodone is ineffective 15 tablet 05/04/2025 Active Start: 02-02-2025 End: 05-04-2025 take 1 tablet by mouth every 30 days at bedtime as needed clonazePAM (KLONOPIN) 0.5 mg tablet Indications: Chronic insomnia Take 1 tablet by mouth at bedtime as needed for up to 30 days. 30 tablet 04/04/2025 05/04/2025 Discontinued Start: 07-27-2024 End: 01-31-2025 take 1 tablet by mouth every 30 days at bedtime as needed clonazePAM (KLONOPIN) 0.5 mg tablet Indications: Chronic insomnia Take 1 tablet by mouth at bedtime as needed for up to 30 days. 30 tablet 12/20/2024 01/31/2025 Discontinued CPAP/BIPAP/OTHER (11 sources) Start: 05-06-2025 End: 09-20-2052 CPAP/BIPAP/OTHER Indications: Cirrhosis of liver without ascites, unspecified hepatic cirrhosis type (HCC) , Iron 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, unspecified iron 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 type , Type 2 diabetes mellitus with stage 3a chronic kidney disease, with long-term current use of insulin (HCC) , Chronic insomnia , SALVATORE (obstructive sleep apnea) Type .CPAPSettings into a note to see current settings/supplies/DME information. 1 each 05/06/2025 09/20/2052 Active diphenhydrAMINE hydrochloride 50 mg oral capsule (20 sources) Histamine-1 Receptor Antagonist Start: 05-30-2025 take 1 capsule by mouth every hour diphenhydrAMINE (BENADRYL) 50 mg capsule Indications: Contrast media allergy Take 1 capsule by mouth as directed for 1 dose. one (1) hour prior to exam. 1 capsule 05/30/2025 Active Start: 11-02-2024 End: 02-01-2025 diphenhydrAMINE HCL (BENADRY L ALLERGY) 50 mg tablet Indications: Allergy to iodine Take by mouth, 1 tablet 13 hours prior to test, 7 hours prior, and 1 hour prior 3 tablet 11/02/2024 02/01/2025 Discontinued Start: 11-01-2024 End: 11-02-2024 take 1 capsule by mouth every six hours as needed diphenhydrAMINE (BENADRYL) 50 mg capsule Take 1 capsule by mouth every 6 hours as needed. 1 PO 1 HOUR PRIOR TO PROCEDURE 1 capsule 1 11/01/2024 11/02/2024 Discontinued enalapril maleate 20 mg oral tablet (20 sources) Angiotensin Converting Enzyme Inhibitor Start: 10-24-2021 End: 02-20-2023 take 1 tablet by mouth once daily enalapril (VASOTEC) 20 mg tablet Take 1 tablet by mouth once daily. 30 tablet 10/24/2021 02/20/2023 Discontinued Start: 08-06-2014 End: 08-24-2024 take 1 tablet by mouth twice daily enalapril (VASOTEC) 20 mg tablet Indications: Hypertension, unspecified type Take 1 tablet by mouth two times a day. 180 tablet 3 08/24/2024 Active Comment on above: Take 1 tablet by con th twice daily. Take 1 tablet by con th once daily. Take 1 tablet by con th two times a day. enteric contrast (will be provided with radiology test) (2 sources) Start: 10-11-20 End: 10-12-20 enteric contrast (will be provided with radiology test) Indications: Abdominal bloating For CT ABD/PEL W IVCON Routine order Administer, As Directed One Time Only, via Oral, Rectal, both Oral and Rectal, Enteric Tube, Stoma or Indwelling Catheter, Enteric Contrast as designated per enteric contrast guidelines 1 Each 10/11/2024 10/12/2024 Active ezetimibe 10 mg oral tablet (20 sources) Dietary Cholesterol Absorption Inhibitor Start: 05-09-20 End: 08-24-20 take 1 tablet by mouth once daily for hyperlipidemia ezetimibe (ZETIA) 10 mg tablet Indications: Dyslipidemia Take 1 tablet by mouth once daily. For cholesterol 90 tablet 3 08/24/2024 Active Comment on above: Take 1 tablet by con th once daily. For cholesterol Take 1 tablet by con th once daily. flash glucose scanning reader (FREESTYLE BETSEY 14 DAY READER) (20 sources) Start: 05-18-20 flash glucose scanning reader (FREESTYLE BETSEY 14 DAY READER) Use to check blood sugar as directed. 1 Each 05/18/2021 Active Start: 05-18-2021 flash glucose scanning reader (FREESTYLE BETSEY 14 DAY READER) Use to check blood sugar as directed. 1 Each 0 05/18/2021 Active Comment on above: Use to check blood s ugar as directed. flash glucose sensor (FREESTYLE BETSEY 14 DAY SENSOR) kit (20 sources) Start: 07-30-2023 flash glucose sensor (FREESTYLE BETSEY 14 DAY SENSOR) kit Type 2 diabetes uncontrolled, insulin dependent, Apply sensor to back of arm to check blood sugars as directed. Change sensor every 2 weeks and rotate arms. 6 Kit 2 07/30/2023 Active Start: 03-25-2019 End: 07-30-2023 flash glucose sensor (FREEST YLE BETSEY 14 DAY SENSOR) kit Apply sensor to back of arm to check blood sugars as directed. Change sensor every 2 weeks and rotate arms. 2 Kit 11 03/25/2019 07/30/2023 Discontinued Start: 03-25-2019 flash glucose sensor (FREESTYLE BETSEY 14 DAY SENSOR) kit Apply sensor to back of arm to check blood sugars as directed. Change sensor every 2 weeks and rotate arms. 2 Kit 11 03/25/2019 Active Comment on above: Apply sensor to back of arm to check blood sugars as directed. Change sensor every 2 weeks and rotate arms. Type 2 diabetes unco ntrolled, insulin dependent, Apply sensor to back of arm to check blood sugars as directed. Change sensor every 2 weeks and rotate arms. fluconazole 150 mg oral tablet (2 sources) Azole Antifungal Start: 07-29-2022 End: 07-29-2022 fluconazole (DIFLUCAN) 150 mg tablet Indications: Yeast infection Take 1 tablet by mouth one time only for 1 dose. For yeast infection, Repeat in 3 days as needed. 2 tablet 0 07/29/2022 07/29/2022 Active Comment on above: Take 1 tablet by con th one time only for 1 dose. For yeast infection, Repeat in 3 days as needed. 3 ml insulin glargine 100 unt/ml pen injector (20 sources) Insulin Analog Start: 06-09-2025 insulin glargine (BASAGLAR KWIKPEN U-100 INSULIN) 100 unit/mL (3 mL) Indications: Type 2 diabetes mellitus with stage 3 chronic kidney disease, with long-term current use of insulin, unspecified whether stage 3a or 3b CKD (HCC) Inject 50 Units subcutaneously two times a day. ybuy PAP. Do not send to pharmacy - patient receives through patient assistance program. For medication order changes (med, dose, frequency) please route to [facility] 06/09/2025 Active Start: 12-02-2024 End: 06-09-2025 insulin glargine (BASAGLAR K WIKPEN U-100 INSULIN) 100 unit/mL (3 mL) Indications: Type 2 diabetes mellitus with stage 3 chronic kidney disease, with long-term current use of insulin, unspecified whether stage 3a or 3b CKD (HCC) Inject 56 Units subcutaneously two times a day. 105 mL 3 12/02/2024 06/09/2025 Discontinued (Adjust Sig - Block E-Cancel) Start: 11-03-2024 End: 12-02-2024 insulin glargine (BASAGLAR K WIKPEN U-100 INSULIN) 100 unit/mL (3 mL) Indications: Type 2 diabetes mellitus with stage 3 chronic kidney disease, with long-term current use of insulin, unspecified whether stage 3a or 3b CKD (HCC) Inject 52 Units subcutaneously two times a day. 6 Each 3 11/03/2024 12/02/2024 Discontinued Start: 06-03-2024 End: 11-03-2024 insulin glargine (BASAGLAR K WIKPEN U-100 INSULIN) 100 unit/mL (3 mL) Indications: Type 2 diabetes mellitus with stage 3 chronic kidney disease, with long-term current use of insulin, unspecified whether stage 3a or 3b CKD (HCC) Inject 50 Units subcutaneously two times a day. 90 mL 4 06/03/2024 11/03/2024 Discontinued Start: 12-03-2023 End: 06-03-2024 insulin glargine (BASAGLAR K WIKPEN U-100 INSULIN) 100 unit/mL (3 mL) Indications: Type 2 diabetes mellitus with stage 3 chronic kidney disease, with long-term current use of insulin, unspecified whether stage 3a or 3b CKD (HCC) Inject 46 Units subcutaneously two times a day. 45 mL 1 04/23/2024 06/03/2024 Discontinued Start: 11-05-2023 End: 01-15-2024 insulin glargine (BASAGLAR K WIKPEN U-100 INSULIN) 100 unit/mL (3 mL) Inject 46 Units subcutaneously two times a day. [facility] [employer] PATIENT ASSISTANCE PROGRAM 30 mL 11 11/05/2023 01/15/2024 Discontinued Start: 11-05-2023 insulin glargi ne (BASAGLAR KWIKPEN U-100 INSULIN) 100 unit/mL (3 mL) Indications: Type 2 diabetes mellitus with stage 3 chronic kidney disease, with long-term current use of insulin, unspecified whether stage 3a or 3b CKD (HCC) Inject 46 Units subcutaneously two times a day. 30 mL 1 11/05/2023 Active Start: 09-11-2023 End: 11-05-2023 inject 46 [IU] by subcutaneous injection in the morning insulin glargine 100 unit/mL (3 mL) Indications: Type 2 diabetes mellitus with stage 3 chronic kidney disease, with long-term current use of insulin, unspecified whether stage 3a or 3b CKD (HCC) Inject 46 units SQ in the AM and 46 units SQ in the evening. Basaglar - through [facility]. 0 09/11/2023 11/05/2023 Discontinued Start: 09-11-2023 inject 46 [IU] by gonzalez bcutaneous injection in the morning insulin glargine 100 unit/mL (3 mL) Indications: Type 2 diabetes mellitus with stage 3 chronic kidney disease, with long-term current use of insulin, unspecified whether stage 3a or 3b CKD (HCC) Inject 46 units SQ in the AM and 46 units SQ in the evening. Basaglar - through [facility]. 0 09/11/2023 Active Start: 12-06-2022 End: 09-11-2023 inject 52 [IU] by subcutaneous injection in the morning insulin glargine (LANTUS SOLOSTAR, BASAGLAR KWIKPEN) 100 unit/mL (3 mL) Indications: Type 2 diabetes mellitus with stage 3 chronic kidney disease, with long-term current use of insulin, unspecified whether stage 3a or 3b CKD (HCC) Inject 52 units SQ in the AM and 52 units SQ in the evening. Basaglar - through [facility]. 45 Each 2 12/06/2022 09/11/2023 Discontinued (Adjust Sig - Block E-Cancel) Start: 06-10-2022 End: 12-05-2022 inject 46 [IU] by subcutaneous injection in the morning insulin glargine (LANTUS SOLOSTAR, BASAGLAR KWIKPEN) 100 unit/mL (3 mL) Indications: Type 2 diabetes mellitus with stage 3 chronic kidney disease, with long-term current use of insulin, unspecified whether stage 3a or 3b CKD (HCC) Inject 46 units SQ in the AM and 46 units SQ in the evening 0 06/10/2022 12/05/2022 Discontinued Start: 04-23-2022 End: 06-10-2022 inject 46 [IU] by subcutaneous injection in the morning insulin glargine (LANTUS SOLOSTAR, BASAGLAR KWIKPEN) 100 unit/mL (3 mL) Indications: Type 2 diabetes mellitus with stage 3 chronic kidney disease, with long-term current use of insulin, unspecified whether stage 3a or 3b CKD (HCC) Inject 46 units SQ in the AM and 46 units SQ in the evening 0 06/10/2022 Active Start: 03-13-2022 End: 04-10-2022 insulin glargine (LANTUS HAMZAH OSTAR, BASAGLAR KWIKPEN) 100 unit/mL (3 mL) Indications: Type 2 diabetes mellitus with stage 3 chronic kidney disease, with long-term current use of insulin, unspecified whether stage 3a or 3b CKD (HCC) Inject 44 Units subcutaneously every 12 hours. 75 mL 2 04/10/2022 Active Start: 02-14-2022 insulin glargi ne (LANTUS SOLOSTAR, BASAGLAR KWIKPEN) 100 unit/mL (3 mL) Indications: Type 2 diabetes mellitus with stage 3 chronic kidney disease, with long-term current use of insulin, unspecified whether stage 3a or 3b CKD (HCC) Inject 40 Units subcutaneously every 12 hours. 0 02/14/2022 Active Start: 12-10-2021 End: 02-14-2022 insulin glargine (LANTUS HAMZAH OSTAR, BASAGLAR KWIKPEN) 100 unit/mL (3 mL) Indications: Type 2 diabetes mellitus with stage 3 chronic kidney disease, with long-term current use of insulin, unspecified whether stage 3a or 3b CKD (HCC) Inject 36 Units subcutaneously every 12 hours. 75 mL 2 12/10/2021 02/14/2022 Discontinued (Adjust Sig - Block E-Cancel) Start: 05-09-2021 Insulin Glargi ne (Lantus Solostar U-100 Insulin) 100 unit/mL (3 mL) Insulin Pen Active 28 U SC TWICE A DAY May 09, 2021 12:00am diabetes Comment on above: Inject 40 Units subc utaneously every 12 hours. Inject 36 Units subc utaneously every 12 hours. Inject 44 Units subc utaneously every 12 hours. Inject 46 units SQ i n the AM and 44 units SQ in the evening Inject 46 units SQ i n the AM and 46 units SQ in the evening Inject 52 units SQ i n the AM and 52 units SQ in the evening. Basaglar - through [facility]. Inject 46 units SQ i n the AM and 46 units SQ in the evening. Basaglar - through [facility]. Inject 46 Units subc utaneously two times a day. Inject 46 Units subc utaneously two times a day. [facility] PATIENT ASSISTANCE PROGRAM 3 ml insulin lispro 100 unt/ml pen injector (20 sources) Insulin Analog Start: 03-10-2025 End: 06-09-2025 insulin lispro (HUMALOG KWIKPEN INSULIN) 100 unit/mL Indications: Type 2 diabetes mellitus with stage 3 chronic kidney disease, with long-term current use of insulin, unspecified whether stage 3a or 3b CKD (HCC) Inject 14 units with breakfast, 14 units with lunch, and 14 units with dinner + sliding scale insulin (1 unit for every 50 >150 pts). Gets through [employer]. Do not send to pharmacy - patient receives through patient assistance program. For medication order changes (med, dose, frequency) please route to pool RX [facility]B [facility]. 06/09/2025 Active Start: 10-24-2022 End: 09-30-2024 insulin lispro (HUMALOG KWIK PEN INSULIN) 100 unit/mL Indications: Type 2 diabetes mellitus with stage 3 chronic kidney disease, with long-term current use of insulin, unspecified whether stage 3a or 3b CKD (HCC) Inject 14 units with breakfast, 14 units with lunch, and 14 units with dinner + sliding scale insulin (1 unit for every 50 >150 pts). Gets through [employer]. 09/30/2024 Active Start: 08-22-2022 End: 10-24-2022 insulin lispro (HUMALOG KWIK PEN INSULIN) 100 unit/mL Indications: Type 2 diabetes mellitus with stage 3 chronic kidney disease, with long-term current use of insulin, unspecified whether stage 3a or 3b CKD (HCC) Inject 15 Units subcutaneously three times daily before meals. 0 08/22/2022 10/24/2022 Discontinued Start: 06-10-2022 End: 08-22-2022 insulin lispro (HUMALOG KWIK PEN INSULIN) 100 unit/mL Indications: Type 2 diabetes mellitus with stage 3 chronic kidney disease, with long-term current use of insulin, unspecified whether stage 3a or 3b CKD (HCC) Inject 16 Units subcutaneously three times daily before meals. 0 06/10/2022 08/22/2022 Discontinued (Adjust Sig - Block E-Cancel) Start: 12-10-2021 End: 06-10-2022 inject 14 [IU] by subcutaneous injection once daily at breakfast, then inject 14 [IU] by subcutaneous injection once daily at lunch, then inject 16 [IU] by subcutaneous injection once daily at dinner insulin lispro (HUMALOG KWIKPEN INSULIN) 100 unit/mL Indications: Type 2 diabetes mellitus with stage 3 chronic kidney disease, with long-term current use of insulin, unspecified whether stage 3a or 3b CKD (HCC) Inject 14 Units subcutaneously daily with breakfast AND 14 Units daily with lunch AND 16 Units daily with dinner. 0 12/19/2021 06/10/2022 Discontinued Comment on above: Inject 14 Units subc utaneously daily with breakfast AND 14 Units daily with lunch AND 16 Units daily with dinner. Inject 16 Units subc utaneously three times daily before meals. Inject 15 Units subc utaneously three times daily before meals. Inject 15 units with breakfast, 16 units with lunch, and 15 units with dinner + sliding scale insulin (1 unit for every 50 >150 pts). Gets through [facility]. Inject 14 units with breakfast, 16 units with lunch, and 14 units with dinner + sliding scale insulin (1 unit for every 50 >150 pts). Gets through [facility]. Inject 12 units with breakfast, 16 units with lunch, and 14 units with dinner + sliding scale insulin (1 unit for every 50 >150 pts). Gets through [facility]. Inject 10 units with breakfast, 16 units with lunch, and 16 units with dinner + sliding scale insulin (1 unit for every 50 >150 pts). Gets through [facility]. isopropyl alcohol 0.7 ml/ml medicated pad (20 sources) Start: 09-23-2024 End: 09-23-2024 alcohol swabs (ALCOHOL PADS) Indications: Type 2 diabetes mellitus with stage 3a chronic kidney disease, with long-term current use of insulin ([facility]) Test Four times a day. Insulin Dep? Yes E11.9 DM 2 and E10.9 DM 1 200 Each 5 09/24/2024 Active Start: 09-02-2017 End: 02-24-2023 alcohol swabs padm Apply 1 a pplication to affected area twice daily. USE TO CLEANSE ARE FOR B/S TESTING 1-2 TIMES PER DAY DX:EII.65 100 Each 09/02/2017 02/24/2023 Discontinued Comment on above: Apply 1 application to affected area twice daily. USE TO CLEANSE ARE FOR B/S TESTING 1-2 TIMES PER DAY DX:EII.65 levothyroxine sodium 0.125 mg oral tablet (20 sources) l-Thyroxine Start: 08-04-2024 End: 07-11-2025 levothyroxine (SYNTHROID) 125 mcg tablet Indications: Acquired hypothyroidism Take on empty stomach. For Thyroid. Take 1 tablet on Friday, Friday, , Friday, Friday. Take a half tablet on Friday and Friday. 30 tablet 2 07/11/2025 Active Start: 10-15-2023 End: 08-02-2024 levothyroxine (SYNTHROID) 12 5 mcg tablet Indications: Acquired hypothyroidism Take on empty stomach. For Thyroid. Take 1 tablet on Friday through Friday. Take a half tablet on Sundays. 30 tablet 2 05/06/2024 08/02/2024 Discontinued Start: 04-23-2022 End: 10-15-2023 take 1 tablet by mouth once daily in the morning for thyroid dysfunction levothyroxine (SYNTHROID) 112 mcg tablet Indications: Acquired hypothyroidism Take 1 tablet by mouth PO daily in AM. For thyroid. 90 tablet 3 10/03/2023 10/15/2023 Discontinued Start: 08-20-2021 End: 02-20-2023 take 1 tablet by mouth every week for thyroid dysfunction, then take 0.5 tablet by mouth every week for thyroid dysfunction levothyroxine (SYNTHROID) 112 mcg tablet Indications: Acquired hypothyroidism Take 1 tablet by mouth 6 days per week. Take 1/2 tablet by mouth 1 day per week. For thyroid. 21 tablet 08/23/2021 02/20/2023 Discontinued Start: 08-06-2014 Levothyroxine 100 MCG tablet Active 112 ug PO DAILY August 06, 2014 12:00am Comment on above: Take 1 tablet by con th 6 days per week. Take 1/2 tablet by mouth 1 day per week. For thyroid. Take 1 tablet by con th PO daily in AM. For thyroid. Take 1 tablet by con th once daily. Take on empty stomach. For thyroid. Take on empty stomac h. For Thyroid. Take 1 tablet on Friday through Friday. Take a half tablet on Sundays. metoprolol tartrate 100 mg oral tablet (20 sources) beta-Adrenergic Pola Start: 08-06-20 End: 12-20-19 take 1 tablet by mouth twice daily metoprolol tartrate, short acting, (LOPRESSOR) 100 mg tablet Indications: Hypertension, unspecified type Take 1 tablet by mouth two times a day. 180 tablet 3 12/20/2024 Active Comment on above: Take 1 tablet by con th twice daily. TAKE 1 TABLET TWICE A DAY Take 1 tablet by con th two times a day. nitrofurantoin, macrocrystals 25 mg / nitrofurantoin, monohydrate 75 mg oral capsule (3 sources) Nitrofuran Antibacterial Start: 02-02-20 End: 02-09-20 take 1 capsule by mouth twice daily nitrofurantoin monohydrate and macrocrystal (MACROBID) 100 mg capsule Indications: Urinary frequency , Burning with urination , Proteinuria, unspecified type Take 1 capsule by mouth two times a day for 7 days. 14 capsule 02/01/2025 02/08/2025 Active omega-3 DHA-EPA (FISH OIL) 1,200 (144-216) mg capsule (20 sources) take 1 capsule by mouth once daily omega-3 DHA-EPA (FISH OIL) 1,200 (144-216) mg capsule Take 1 capsule by mouth once daily. Active take 1 capsule by mouth once shirley ly omega-3 DHA-EPA (FISH OIL) 1,200 (144-216) mg capsule Take 1 capsule by mouth once daily. 0 Active Comment on above: Take 1 capsule [address] [facility] once daily. omeprazole 40 mg delayed release oral capsule (20 sources) Proton Pump Inhibitor Start: End: 5 take 1 capsule by mouth once daily omeprazole (PRILOSEC) 40 mg capsule Take 1 capsule by mouth once daily. 90 capsule 3 05/12/2025 Active Comment on above: Take [address] capsule [address] [facility] once daily. TAKE 1 CAPSULE DAILY ondansetron 4 mg disintegrating oral tablet (2 sources) Serotonin-3 Receptor Antagonist Start: 1 take 1 tablet by mouth every eight hours Ondansetron 4 mg tablet,disintegrati ng Active 4 mg PO Q8H 6 0 May 12, 2021 12:00am traZODone hydrochloride 50 mg oral tablet (20 sources) Serotonin Reuptake Inhibitor Start: 5 End: 5 take 1 tablet by mouth every twenty-four hours as needed traZODone (DESYREL) 50 mg tablet Take 1 tablet by mouth at bedtime as needed. 30 tablet 2 06/17/2025 Active Start: 08-08-2020 End: 02-20-2023 take 1 tablet by mouth once daily at bedtime traZODone (DESYREL) 100 mg tablet Take 1 tablet by mouth daily at bedtime. 90 tablet 3 08/08/2020 02/20/2023 Discontinued (Course of therapy completed) Comment on above: Take 1 tablet by con daily at bedtime. Completed/Discontinued Medications Medication Drug Class(es) Dates Sig (Normalized) Sig (Original) acetaminophen 325 mg oral tablet (20 sources) Start: 03-19-2018 End: 07-27-2024 take 2 tablets by mouth every six hours as needed acetaminophen (TYLENOL) 325 mg tablet Take 2 tablets by mouth every 6 hours as needed for Pain. 60 tablet 03/19/2018 07/27/2024 Discontinued Comment on above: Take 2 tablets by mo [facility] every 6 hours as needed for Pain. acetaminophen 325 mg / oxyCODONE hydrochloride 5 mg oral tablet (20 sources) Opioid Agonist End: 07-27-2024 take 1 tablet by mouth every eight hours as needed oxyCODONE-acetamin ophen (PERCOCET) 5-325 mg tablet Take 1 tablet by mouth every 8 hours as needed for pain. 07/27/2024 Discontinued Comment on above: Take 1 tablet by con every 8 hours as needed for pain. ALPRAZolam 1 mg oral tablet (2 sources) Benzodiazepine Start: 07-27-2024 End: 07-27-2024 take 1 tablet by mouth every 30 days at bedtime as needed ALPRAZolam (XANAX) 1 mg tablet Indications: Chronic insomnia Take 1 tablet by mouth at bedtime as needed for up to 30 days. 30 tablet 07/27/2024 07/27/2024 Discontinued amLODIPine 5 mg oral tablet (20 sources) Dihydropyridine Calcium Channel Pola Start: 08-20-2021 End: 02-20-2023 take 1 tablet by mouth once daily amLODIPine (NORVASC) 5 mg tablet Take 1 tablet by mouth once daily. 14 tablet 08/20/2021 07/29/2022 Discontinued Comment on above: Take 1 tablet by con once daily. ascorbic acid 1000 mg oral tablet (15 sources) Vitamin C Start: 02-01-2025 End: 07-31-2025 take 1 tablet by mouth once daily Ascorbic Acid (VITAMIN C) 1,000 mg tablet Indications: Iron 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, unspecified iron 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 type Take 1 tablet by mouth once daily. 30 tablet 5 02/01/2025 05/04/2025 Discontinued aspirin 81 mg delayed release oral tablet (20 sources) Platelet Aggregation Inhibitor, Nonsteroidal Anti-inflammatory Drug Start: 12-08-2017 End: 02-20-2023 take 1 tablet by mouth once daily aspirin, enteric coated (ASPIR-LOW) 81 mg EC tablet Take 1 tablet by mouth once daily. 90 tablet 3 12/08/2017 02/20/2023 Discontinued Comment on above: Take 1 tablet by con once daily. benzonatate 100 mg oral capsule (20 sources) Non-narcotic Antitussive Start: 10-30-2022 End: 03-25-2023 take 1 capsule by mouth every eight hours as needed for cough and cough benzonatate (TESSALON PERLES) 100 mg capsule Indications: Acute cough Take 1 capsule by mouth three times daily as needed for cough. 30 capsule 1 10/30/2022 03/25/2023 Discontinued Comment on above: Take 1 capsule by mo [facility] three times daily as needed for cough. Blood-Glucose Meter (ONETOUCH ULTRA2) monitoring kit (20 sources) Start: 04-22-2018 End: 04-10-2023 Blood-Glucose Meter (ONETOUCH ULTRA2) monitoring kit 1 Each as needed. Test blood sugar 3-4 times daily, DX: E11.65 Insulin: yes 1 Each 04/22/2018 04/10/2023 Discontinued Start: 04-22-2018 End: 04-10-2023 Blood-Glucose Meter (ONETOUC H ULTRA2) monitoring kit 1 Each as needed. Test blood sugar 3-4 times daily, DX: E11.65 Insulin: yes 1 Each 0 04/22/2018 04/10/2023 Discontinued Start: 04-22-2018 Blood-Glucose Meter (ONETOUCH ULTRA2) monitoring kit 1 Each as needed. Test blood sugar 3-4 times daily, DX: E11.65 Insulin: yes 1 Each 0 04/22/2018 Active Comment on above: 1 Each as needed. Te st blood sugar 3-4 times daily, DX: E11.65 Insulin: yes busPIRone hydrochloride 5 mg oral tablet (20 sources) Start: 0 End: 3 take 1-2 tablets by mouth at bedtime as needed busPIRone (BUSPAR) 5 mg tablet Indications: Situational insomnia Take 1-2 tablets by mouth at bedtime as needed (insomnia). 30 tablet 1 11/24/2019 02/20/2023 Discontinued (Course of therapy completed) Comment on above: Take 1-2 tablets by mouth at bedtime as needed (insomnia). colchicine 0.6 mg oral tablet (20 sources) Start: End: take 1 tablet by mouth twice daily colchicine (COLCRYS) 0.6 mg tablet Indications: Acute gout involving toe of right foot, unspecified cause Take 1 tablet by mouth twice daily. For acute gout flare up 14 tablet 1 04/04/2021 11/03/2024 Discontinued Start: 03-05-2021 End: 02-24-2023 take 1 tablet by mouth once daily colchicine (COLCRYS) 0.6 mg tablet Indications: Acute gout involving toe of right foot, unspecified cause Take 1 tablet by mouth once daily for 7 days. For acute gout flare up 7 tablet 3 03/05/2021 02/24/2023 Discontinued (Course of therapy completed) Comment on above: Take 1 tablet by con th once daily for 7 days. For acute gout flare up Take 1 tablet by con twice daily. For acute gout flare up colestipol hydrochloride 1000 mg oral tablet (20 sources) Bile Acid Sequestrant Start: 07-30-20 End: 01-15-20 24 take 1 tablet by mouth twice daily before mealtime colestipol (COLESTID) 1 gram tablet Indications: Diarrhea, unspecified type , Medication side effect Take 1 tablet by mouth twice daily before meals. 60 tablet 2 07/30/2023 01/15/2024 Discontinued Comment on above: Take 1 tablet by con twice daily before meals. COMPOUNDED PRESCRIPTION (20 sources) Start: 09-02-20 End: 02-25-20 COMPOUNDED PRESCRIPTION BLOOD GLUCOSE METER OF CHOICE TESTING 1-2 TIMES DAILY DX;EII.65 1 Each 09/02/2017 02/24/2023 Discontinued Start: 09-02-2017 End: 02-24-2023 COMPOUNDED PRESCRIPTION BLOO D GLUCOSE METER OF CHOICE TESTING 1-2 TIMES DAILY DX;EII.65 1 Each 0 09/02/2017 02/24/2023 Discontinued Start: 09-02-2017 COMPOUNDED PRE SCRIPTION BLOOD GLUCOSE METER OF CHOICE TESTING 1-2 TIMES DAILY DX;EII.65 1 Each 0 09/02/2017 Active Comment on above: BLOOD GLUCOSE METER OF CHOICE TESTING 1-2 TIMES DAILY DX;EII.65 dicyclomine hydrochloride 10 mg oral capsule (6 sources) Anticholinergic Start: 023 End: 024 take 1 capsule by mouth at bedtime as needed for diarrhea dicyclomine (BENTYL) 10 mg capsule Indications: Diarrhea, unspecified type Take 1 capsule by mouth before meals and at bedtime. As needed for diarrhea 60 capsule 1 10/15/2023 01/15/2024 Discontinued Comment on above: Take 1 capsule by mo uth before meals and at bedtime. As needed for diarrhea 0.5 ml dulaglutide 1.5 mg/ml auto-injector (2 sources) GLP-1 Receptor Agonist Start: 021 End: Dulaglutide (Trulicity) 0.75 mg/0.5 mL pen injector Discontinued 0.75 mg SC SA May 09, 2021 12:00am May 11, 2021 8:53am diabetes empagliflozin 10 mg oral tablet (8 sources) Sodium-Glucose Cotransporter 2 Inhibitor Start: End: take 1 tablet by mouth once daily at breakfast empagliflozin (JARDIANCE) 10 mg tablet Take 1 tablet by mouth daily with breakfast. 30 tablet 5 07/11/2022 08/22/2022 Discontinued (Cost of medication) Comment on above: Take 1 tablet by con th daily with breakfast. estradiol 0.1 mg/ml vaginal cream (20 sources) Estrogen Start: 019 End: estradiol (ESTRACE) 0.01 % (0.1 mg/gram) vaginal cream Indications: Dysuria Apply pea-sized amount to urethral opening twice a week. 1 Tube 01/07/2019 03/25/2023 Discontinued Comment on above: Apply pea-sized amou nt to urethral opening twice a week. ferrous sulfate (SLOW FE) 137 mg (45 mg iron) TbER (15 sources) Start: 025 End: 025 take 1 tablet by mouth once daily ferrous sulfate (SLOW FE) 137 mg (45 mg iron) TbER Indications: Iron 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, unspecified iron 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 type Take 1 tablet by mouth once daily. 30 tablet 2 04/27/2025 05/04/2025 Discontinued (Side Effects) Start: 04-27-2025 End: 07-26-2025 take 1 tablet by mouth once daily ferrous sulfate (SLOW FE) 137 mg (45 mg iron) TbER Indications: Iron 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, unspecified iron 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 type Take 1 tablet by mouth once daily. 30 tablet 2 04/27/2025 07/26/2025 Active Start: 02-01-2025 End: 04-27-2025 take 1 tablet by mouth once daily ferrous sulfate (SLOW FE) 137 mg (45 mg iron) TbER Indications: Iron 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, unspecified iron 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 type Take 1 tablet by mouth once daily. 30 tablet 2 02/01/2025 04/27/2025 Discontinued Start: 02-01-2025 End: 05-02-2025 take 1 tablet by mouth once daily ferrous sulfate (SLOW FE) 137 mg (45 mg iron) TbER Indications: Iron 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, unspecified iron 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 type Take 1 tablet by mouth once daily. 30 tablet 2 02/01/2025 05/02/2025 Active furosemide 20 mg oral tablet (20 sources) Loop Diuretic Start: 12-18-2020 End: 02-20-2023 furosemide (LASIX) 20 mg tablet Indications: Pedal edema TAKE 1 TABLET BY MOUTH DAILY X3 DAYS, THEN TAKE DAILY NEEDED FOR FEET SWELLING. 30 tablet 1 12/18/2020 02/20/2023 Discontinued Comment on above: TAKE 1 TABLET BY CON TH DAILY X3 DAYS, THEN TAKE DAILY NEEDED FOR FEET SWELLING. iv contrast (will be provided with radiology test) (3 sources) Start: 05-27-2025 End: 05-28-2025 iv contrast (will be provided with radiology test) Indications: Cirrhosis of liver without ascites, unspecified hepatic cirrhosis type (HCC) MRI PANC/KANDI Inject, intravenously, once for 1 dose. No IV access, insert saline lock prior to the beginning of sedation, infusion, injection of imaging exam. Discontinue saline lock post exam. If Pt. has a central line or IVAD, may access for administration according to line specific nursing protocol. Once exam is complete flush line and de-access according to line specific nursing protocol in the MR contrast administration guidelines link. 1 each 05/27/2025 05/28/2025 Start: 10-11-2024 End: 10-12-2024 iv contrast (will be provide d with radiology test) Indications: Abdominal bloating CT ABD/PEL -Inject, intravenously, once for 1 dose.No IV access, insert saline lock prior to the beginning of sedation, infusion, injection of imaging exam. Discontinue saline lock post exam. If Pt. has a central line or IVAD, may access for administration according to line specific nursing protocol. Once exam is complete flush line and de-access according to line specific nursing protocol in the CT contrast administration guidelines link. 1 Each 10/11/2024 10/12/2024 Active LORazepam 2 mg oral tablet (20 sources) Benzodiazepine Start: 07-01-2024 End: 08-30-2024 take 1 tablet by mouth every twenty-four hours as needed for anxiety and anxiety LORazepam (ATIVAN) 2 mg tab Indications: Anxiety as acute reaction to exceptional stress Take 1 tablet by mouth at bedtime as needed for up to 60 days. 30 tablet 1 07/01/2024 07/27/2024 Discontinued Start: 03-01-2024 End: 06-24-2024 take 1 tablet by mouth every twenty-four hours as needed for anxiety and anxiety LORazepam (ATIVAN) 2 mg tab Indications: Anxiety as acute reaction to exceptional stress Take 1 tablet by mouth at bedtime as needed for up to 60 days. 30 tablet 1 04/23/2024 06/22/2024 Active Start: 01-30-2024 End: 03-01-2024 take 1 tablet by mouth every twenty-four hours as needed for anxiety and anxiety LORazepam (ATIVAN) 2 mg tab Indications: Anxiety as acute reaction to exceptional stress Take 1 tablet by mouth at bedtime as needed for up to 30 days. 30 tablet 1 01/30/2024 03/01/2024 Discontinued Start: 12-04-2023 End: 01-03-2024 take 1 tablet by mouth every twenty-four hours as needed for anxiety and anxiety LORazepam (ATIVAN) 2 mg tab Indications: Anxiety as acute reaction to exceptional stress Take 1 tablet by mouth at bedtime as needed for up to 30 days. 30 tablet 1 12/04/2023 01/03/2024 Active Start: 08-25-2023 End: 11-30-2023 take 1 tablet by mouth every twenty-four hours as needed for anxiety and anxiety LORazepam (ATIVAN) 2 mg tab Indications: Anxiety as acute reaction to exceptional stress Take 1 tablet by mouth at bedtime as needed for up to 30 days. 30 tablet 0 10/31/2023 11/30/2023 Active Start: 02-07-2022 End: 08-22-2023 take 1 tablet by mouth every twenty-four hours as needed for anxiety and anxiety LORazepam (ATIVAN) 2 mg tab Indications: Anxiety as acute reaction to exceptional stress Take 1 tablet by mouth at bedtime as needed for up to 30 days. 30 tablet 0 07/23/2023 08/22/2023 Active Start: 08-06-2014 take 2 tablets by mo uth at bedtime Lorazepam 1 MG tablet Active 2 mg PO AT BEDTIME August 06, 2014 12:00am anxiety Comment on above: Take 1 tablet by con th at bedtime as needed for up to 30 days. Take 2 mg by mouth a t bedtime as needed. Take 1 tablet by con th at bedtime as needed for up to 60 days. perflutren lipid microspheres 1.3 mL in NaCl (PF) 0.9% 10 mL injection (DEFINITY) (20 sources) Start: 3 End: 4 perflutren lipid microspheres 1.3 mL in NaCl (PF) 0.9% 10 mL injection (DEFINITY) predniSONE 50 mg oral tablet (19 sources) Start: 4 End: 5 predniSONE (DELTASONE) 50 mg 1 PO 13 HOURS, 7 HOURS AND 1 HOUR PRIOR TO PROCEDURE 3 tablet 1 11/02/2024 02/01/2025 Discontinued rosuvastatin calcium 5 mg oral tablet (20 sources) HMG-CoA Reductase Inhibitor Start: 4 End: 5 take 1 tablet by mouth once daily at bedtime rosuvastatin (CRESTOR) 5 mg tablet Take 1 tablet by mouth daily at bedtime. 90 tablet 5 05/06/2024 02/01/2025 Discontinued Start: 10-24-2022 End: 10-31-2022 take 1 tablet by mouth at bedtime rosuvastatin (CRESTOR) 5 mg tablet take 1 tablet by mouth at bedtime 90 tablet 5 10/31/2022 Active Comment on above: Take 1 tablet by con th daily at bedtime. take 1 tablet by con th at bedtime 125 ml sodium chloride 9 mg/ml prefilled syringe (20 sources) Start: 01-28-2023 End: 04-28-2024 sodium chloride 0.9 % (flush) 10 mL (BD POSIFLUSH) triamcinolone acetonide 1 mg/ml topical cream (20 sources) Corticosteroid Start: 05-18-2021 End: 03-25-2023 triamcinolone acetonide (KENALOG) 0.1 % cream Apply 1 application to affected area twice daily. For rash on right ear, Apply sparingly to area for rash/itching. 15 g 1 05/18/2021 03/25/2023 Discontinued End: 02-01-2025 Triamcinolone Acetonide 0.05 % oint Apply to affected area. 02/01/2025 Discontinued Comment on above: Apply 1 application to affected area twice daily. For rash on right ear, Apply sparingly to area for rash/itching. Apply to affected ar ea. Problems Active Problems Problem Classification Problem Date Documented Da te Episodic/Chronic Acute and unspecified renal failure (6 sources) Acute renal failure syndrome; Translations: [Acute kidney failure, unspecified] 05-20-2021 Episodic Comment on above: CKD stage 3a Allergic reactions (2 sources) Allergy to iodine compound; Translations: [Allergy status to other drugs, medicaments and biological substances status] 11-02-2024 Episodic Anxiety disorders (20 sources) Anxiety; Translations: [Other specified anxiety disorders] Onset: 1 03-06-2021 Chronic Chronic kidney disease (20 sources) Chronic kidney disease stage 3; Translations: [Chronic kidney disease (CKD) stage G3a/A2, moderately decreased glomerular filtration rate (GFR) between 45-59 mL/min/1.73 square meter and albuminuria creatinine ratio between 30-299 mg/g] Onset: 6 Resolved: 0 12-16-2016 Chronic Chronic kidney disease (1 source) Chronic kidney disease; Translations: [Hypertensive kidney disease with stage 3a chronic kidney disease (HCC)] Onset: 0 Coagulation and hemorrhagic disorders (20 sources) Platelet count below reference range; Translations: [Thrombocytopenia, unspecified] Onset: 3 10-15-2023 Chronic Coma; stupor; and brain damage (1 source) Daytime somnolence; Translations: [Somnolence] 07-27-2024 Episodic Complications of surgical procedures or medical care (1 source) Drug therapy finding; Translations: [Unspecified adverse effect of drug or medicament, initial encounter] 07-30-2023 Episodic Deficiency and other anemia (4 sources) Iron 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; Translations: [Other iron 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s] 04-28-2024 Episodic Diabetes mellitus with complications (20 sources) Type 2 diabetes mellitus; Translations: [Type 2 diabetes mellitus with diabetic chronic kidney disease] Onset: 5 Chronic Diabetes mellitus without complication (20 sources) Type 2 diabetes mellitus without complication; Translations: [Type 2 diabetes mellitus without complications] Onset: 0 Chronic Diabetes mellitus without complication (2 sources) Diabetes mellitus without complication; Translations: [Type 2 diabetes mellitus with stage 3a chronic kidney disease, with long-term current use of insulin (HCC)] Onset: 0 Disorders of lipid metabolism (20 sources) Mixed hyperlipidemia; Translations: [Mixed hyperlipidemia] Onset: 5 Resolved: 0 08-05-2018 Chronic Diverticulosis and diverticulitis (20 sources) Diverticulosis of colon; Translations: [Diverticulosis of large intestine without perforation or abscess without bleeding] Onset: 0 Resolved: 0 08-24-2010 Chronic Esophageal disorders (20 sources) Gastroesophageal reflux disease; Translations: [Gastro-esophageal reflux disease without esophagitis] Onset: 9 03-16-2010 Chronic Essential hypertension (20 sources) Benign essential hypertension; Translations: [Essential (primary) hypertension] Onset: 5 03-06-2021 Chronic Fluid and electrolyte disorders (2 sources) Dehydration; Translations: [Dehydration] 05-20-2021 Episodic Genitourinary symptoms and ill-defined conditions (3 sources) Genuine stress incontinence; Translations: [Stress incontinence (female) (male)] Onset: 5 05-04-2025 Chronic Gout and other crystal arthropathies (20 sources) Gouty arthritis of toe; Translations: [Gout, unspecified] Onset: 9 02-28-2020 Chronic Headache; including migraine (7 sources) Headache; Translations: [Increased frequency of headaches] Episodic Hypertension with complications and secondary hypertension (20 sources) Chronic kidney disease stage 3 due to hypertension; Translations: [Hypertensive chronic kidney disease with stage 1 through stage 4 chronic kidney disease, or unspecified chronic kidney disease] Onset: 0 02-28-2020 Chronic Immunizations and screening for infectious disease (20 sources) Needs influenza immunization; Translations: [Encounter for immunization] Onset: 8 Resolved: 0 Episodic Menopausal disorders (20 sources) Menopausal symptom; Translations: [Menopausal and female climacteric states] Onset: 8 Resolved: 0 08-24-2010 Chronic Miscellaneous mental health disorders (20 sources) Chronic insomnia; Translations: [Psychophysiologic insomnia] Onset: 9 08-24-2019 Chronic Mood disorders (1 source) Major depressive disorder, recurrent, moderate; Translations: [Moderate recurrent major depression (HCC)] Onset: 5 Chronic Noninfectious gastroenteritis (2 sources) Gastroenteritis; Translations: [Noninfective gastroenteritis and colitis, unspecified] 05-20-2021 Episodic Nutritional deficiencies (20 sources) Vitamin D deficiency; Translations: [Vitamin D deficiency, unspecified] Onset: 2 12-24-2021 Chronic Nutritional deficiencies (1 source) Cobalamin deficiency; Translations: [Deficiency of other specified B group vitamins] Episodic Other connective tissue disease (20 sources) Polymyalgia rheumatica; Translations: [Polymyalgia rheumatica] Onset: 8 08-05-2018 Chronic Other connective tissue disease (1 source) Myalgia, other site; Translations: [Myalgia and myositis, unspecified] 10-07-2024 Episodic Other ear and sense organ disorders (1 source) Bilateral earache; Translations: [Otalgia, bilateral] 01-15-2024 Episodic Other gastrointestinal disorders (1 source) Intra-abdominal and pelvic swelling, mass and lump, unspecified site; Translations: [Intra-abdominal and pelvic swelling, mass and lump, unspecified site] Onset: 8 Episodic Other gastrointestinal disorders (1 source) Diarrhea, unspecified; Translations: [Diarrhea, unspecified type] Onset: 3 Episodic Other gastrointestinal disorders (1 source) Change in bowel habit; Translations: [Change in bowel habits] Onset: 3 Episodic Other gastrointestinal disorders (4 sources) Abdominal bloating; Translations: [Abdominal distension (gaseous)] 10-07-2024 Episodic Other hereditary and degenerative nervous system conditions (20 sources) Restless legs; Translations: [Restless legs syndrome] Onset: 9 08-24-2019 Chronic Other hereditary and degenerative nervous system conditions (1 source) Restless legs syndrome; Translations: [RLS (restless legs syndrome)] Onset: 9 Chronic Other injuries and conditions due to external causes (3 sources) H/O: head injury; Translations: [Personal history of other (healed) physical injury and trauma] Episodic Other liver diseases (20 sources) Steatosis of liver; Translations: [Fatty (change of) liver, not elsewhere classified] Onset: 2 08-07-2022 Chronic Other liver diseases (10 sources) Cirrhosis of liver; Translations: [Unspecified cirrhosis of liver] 12-01-2024 Chronic Other liver diseases (1 source) Fatty (change of) liver, not elsewhere classified; Translations: [Fatty liver] Onset: 2 Chronic Other liver diseases (1 source) Unspecified cirrhosis of liver; Translations: [Cirrhosis of liver without ascites, unspecified hepatic cirrhosis type (HCC)] Onset: 5 Chronic Other lower respiratory disease (2 sources) Snoring; Translations: [Snoring] 02-02-2025 Episodic Other non-traumatic joint disorders (20 sources) Arthropathy of multiple joints; Translations: [Arthropathy, unspecified] Onset: 8 11-06-2018 Chronic Other nutritional; endocrine; and metabolic disorders (20 sources) Obese class I; Translations: [Obesity, unspecified] Onset: 8 12-26-2017 Chronic Other nutritional; endocrine; and metabolic disorders (20 sources) Obesity; Translations: [Obesity, unspecified] Onset: 8 10-28-2022 Chronic Other nutritional; endocrine; and metabolic disorders (1 source) Obesity caused by energy imbalance; Translations: [Other obesity due to excess calories] 06-02-2023 Chronic Other upper respiratory disease (20 sources) Allergic rhinitis; Translations: [Allergic rhinitis, unspecified] Onset: 5 08-24-2010 Chronic Otitis media and related conditions (1 source) Other acute nonsuppurative otitis media, left ear; Translations: [Acute effusion of left ear] Onset: 5 Episodic Residual codes; unclassified (2 sources) Daytime hypersomnia; Translations: [Hypersomnia, unspecified] 02-02-2025 Chronic Residual codes; unclassified (1 source) Obstructive sleep apnea (adult) (pediatric); Translations: [SALVATORE (obstructive sleep apnea)] Onset: 5 Chronic Residual codes; unclassified (1 source) Hypersomnia, unspecified; Translations: [Daytime hypersomnia] Onset: 5 Chronic Residual codes; unclassified (1 source) Poor short-term memory ; Translations: [Other amnesia] Episodic Residual codes; unclassified (1 source) Other specified health status; Translations: [Intolerance of continuous positive airway pressure (CPAP) ventilation] Onset: 5 Episodic Screening and history of mental health and substance abuse codes (1 source) Encounter for screening for depression; Translations: [Screening for depression] Onset: Episodic Syncope (2 sources) Syncope; Translations: [Syncope and collapse] Episodic Thyroid disorders (20 sources) Acquired hypothyroidism; Translations: [Hypothyroidism, unspecified] Onset: 5 12-24-2021 Chronic Unclassified (1 source) Other specified postprocedural states; Translations: [Other specified postprocedural states] Onset: 8 Unclassified (1 source) OPENED IN ERROR 05-06-2025 Urinary tract infections (1 source) Recurrent urinary tract infection; Translations: [Urinary tract infection, site not specified] Episodic Past or Other Problems Problem Classification Problem Date Documented Da te Episodic/Chronic Abdominal pain (20 sources) Right upper quadrant pain; Translations: [Right upper quadrant pain] Onset: 7 Resolved: 3 Episodic Biliary tract disease (20 sources) Cholelithiasis AND cholecystitis without obstruction; Translations: [Calculus of gallbladder with chronic cholecystitis without obstruction] Onset: 3 Resolved: 3 06-11-2023 Episodic Calculus of urinary tract (20 sources) Kidney stone; Translations: [Calculus of kidney] Onset: 0 08-24-2010 Episodic Chronic obstructive pulmonary disease and bronchiectasis (20 sources) Bronchitis; Translations: [Bronchitis, not specified as acute or chronic] Onset: 2 Resolved: 0 02-28-2020 Episodic Deficiency and other anemia (20 sources) Anemia; Translations: [Anemia, unspecified] Onset: 3 07-30-2023 Episodic Deficiency and other anemia (1 source) Iron 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, unspecified; Translations: [Iron 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, unspecified iron 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 type] Onset: 3 Episodic Deficiency and other anemia (1 source) Anemia, unspecified; Translations: [Anemia, unspecified type] Onset: 3 Episodic Diseases of mouth; excluding dental (3 sources) Dribbling from mouth; Translations: [Disturbances of salivary secretion] Onset: 5 02-02-2025 Episodic Gastrointestinal hemorrhage (20 sources) Melena due to gastrointestinal hemorrhage; Translations: [Melena] Onset: 4 10-11-2024 Episodic Genitourinary symptoms and ill-defined conditions (20 sources) Dysuria; Translations: [Dysuria] Onset: 8 12-26-2017 Episodic Hemorrhoids (20 sources) Internal hemorrhoids; Translations: [Other hemorrhoids] Onset: 4 05-27-2014 Episodic Malaise and fatigue (20 sources) Fatigue; Translations: [Other fatigue] Onset: 2 04-24-2022 Episodic Miscellaneous mental health disorders (20 sources) Acute insomnia; Translations: [Adjustment insomnia] Onset: 8 Resolved: 0 02-28-2020 Episodic Mycoses (20 sources) Mycosis; Translations: [Candidiasis, unspecified] Onset: 8 Resolved: 0 Episodic Nausea and vomiting (20 sources) Postoperative nausea and vomiting; Translations: [Nausea with vomiting, unspecified] Onset: 8 Resolved: 0 02-28-2020 Episodic Nonspecific chest pain (20 sources) Chest pain; Translations: [Chest pain, unspecified] Onset: 8 Resolved: 0 02-28-2020 Episodic Other aftercare (20 sources) Patient encounter status; Translations: [Other senior care (current) drug therapy] Onset: 3 Episodic Other aftercare (3 sources) [facility] (current) use of insulin; Translations: [Type 2 diabetes mellitus with stage 3a chronic kidney disease, with long-term current use of insulin (HCC)] Onset: 0 Episodic Other bone disease and musculoskeletal deformities (20 sources) Senile osteopenia; Translations: [Other specified disorders of bone density and structure, unspecified site] Onset: 0 08-08-2020 Episodic Other bone disease and musculoskeletal deformities (20 sources) Disorder of skeletal system; Translations: [Disorder of bone, unspecified] Onset: 0 Resolved: 0 02-28-2020 Episodic Other connective tissue disease (20 sources) Acquired trigger finger of left ring finger; Translations: [Trigger finger, left ring finger] Onset: 0 08-08-2020 Episodic Other connective tissue disease (20 sources) Muscle pain; Translations: [Myalgia, unspecified site] Onset: 8 Resolved: 0 02-28-2020 Episodic Other gastrointestinal disorders (20 sources) Diarrhea; Translations: [Diarrhea, unspecified] Onset: 3 Episodic Other gastrointestinal disorders (20 sources) Altered bowel function; Translations: [Change in bowel habit] Onset: 3 Episodic Other gastrointestinal disorders (20 sources) Pelvic mass; Translations: [Intra-abdominal and pelvic swelling, mass and lump, unspecified site] Onset: 8 Resolved: 9 08-24-2019 Episodic Other gastrointestinal disorders (20 sources) Occult blood in stools; Translations: [Other fecal abnormalities] Onset: 4 10-11-2024 Episodic Other gastrointestinal disorders (20 sources) Splenomegaly; Translations: [Splenomegaly, not elsewhere classified] Onset: 4 10-13-2024 Episodic Other gastrointestinal disorders (1 source) Other fecal abnormalities; Translations: [Positive fecal occult blood test] Onset: 4 Episodic Other gastrointestinal disorders (1 source) Abdominal distension (gaseous); Translations: [Abdominal bloating] Onset: 4 Episodic Other gastrointestinal disorders (1 source) Splenomegaly, not elsewhere classified; Translations: [Spleen enlarged] Onset: 4 Episodic Other inflammatory condition of skin (20 sources) Pruritus of genital organs; Translations: [Anogenital pruritus, unspecified] Onset: 8 Resolved: 0 03-16-2010 Episodic Other inflammatory condition of skin (20 sources) Pruritus of skin; Translations: [Pruritus, unspecified] Onset: 0 Resolved: 0 02-28-2020 Episodic Other lower respiratory disease (20 sources) Cough; Translations: [Acute cough] Onset: 9 Resolved: 0 Episodic Other lower respiratory disease (20 sources) Disorder of lung; Translations: [Other disorders of lung] Onset: 5 Resolved: 0 02-28-2020 Episodic Other lower respiratory disease (2 sources) Snoring; Translations: [Snoring] Onset: 5 Episodic Other screening for suspected conditions (not mental disorders or infectious disease) (20 sources) Other specified abnormal findings of blood chemistry; Translations: [Other abnormal blood chemistry] Onset: 0 Resolved: 0 11-12-2021 Episodic Other upper respiratory infections (20 sources) Acute maxillary sinusitis; Translations: [Acute maxillary sinusitis, unspecified] Onset: 9 Resolved: 0 Episodic Unclassified (20 sources) Type 2 diabetes mellitus without complication; Translations: [Uncontrolled type 2 diabetes mellitus without complication, without long-term current use of insulin] Onset: 8 Resolved: 0 02-28-2020 Results Test Name Value Interpretation Reference Range Facility CNPNon 09-26-2025 CNPN Normal [facility] CNOVon 09-22-2025 CNOV Normal [facility] AFP SerPl-mCncon 09-16-2025 AFP [Mass/Vol] 2.94 ng/mL Normal <9.00 [facility] Comment on above: Order Comment: Speci men Type: BLOOD SPECIMENOrdering Facility: [facility] Address: [address] [place] [address] Result Comment: The Alpha-Fetoprotein test was performed using the [employer] DxI immunoenzymatic assay. Results obtained with different assay methods or kits cannot be used interchangeably. Performed By: #### 1 834-1 ####[facility] LABCLIA [id number] [place] [address] [place] Basic metabolic 2000 panelon 09-16-2025 Anion gap [Moles/Vol] 10 mmol/L Normal 8-15 [facility] Comment on above: Order Comment: Speci men Type: BLOOD SPECIMENOrdering Facility: [facility] Address: [address] [place] [address] Performed By: #### 2 432-3, 98158-0 ####[facility] LABCLIA [id number] [place] [address] [place] Calcium [Mass/Vol] 9.4 mg/dL Normal 8.5-10.2 [facility] Comment on above: Order Comment: Speci men Type: BLOOD SPECIMENOrdering Facility: [facility] Address: [address] [place] [address] Performed By: #### 2 3, 18152-2 ####[facility] LABCLIA [id number] [place] [address] [place] Chloride [Moles/Vol] 106 mmol/L Normal 98-107 [facility] Comment on above: Order Comment: Speci men Type: BLOOD SPECIMENOrdering Facility: [facility] Address: [address] [place] [address] Performed By: #### 2 3, 71718-6 ####[facility] LABCLIA [id number] [place] [id number] [place] CO2 [Moles/Vol] 25 mmol/L Normal 22-30 [facility] Comment on above: Order Comment: Speci men Type: BLOOD SPECIMENOrdering Facility: [facility] Address: [address] [place] [address] Performed By: #### 2 4325-3, 48514-6 ####[facility] LABCLIA [id number] [place] [id number] [place] Creatinine [Mass/Vol] 1.16 mg/dL High 0.58-0.96 [facility] Comment on above: Order Comment: Tenisha benoit Type: BLOOD SPECIMENOrdering Facility: [facility] Address: [address] [place] [address] Performed By: #### 2 4325-3, 13073-4 ####[facility] LABCLIA [id number] [address] [place] eGFRcr SerPlBld CKD-EPI 2020 50 mL/min/1.73m??? Low >=60 [facility] Comment on above: Order Comment: Tenisha benoit Type: BLOOD SPECIMENOrdering Facility: [facility] Address: [address] [place] [address] Result Comment: Lorna mated Glomerular Filtration Rate (eGFR) is calculated using the 2020 CKD-EPI creatinine equation. This equation utilizes serum creatinine, sex, and age as parameters. The creatinine assay has traceable calibration to isotope dilution-mass spectrometry. Refer to KDIGO guidelines for clinical interpretation. In patients with unstable renal function, e.g. those with acute kidney injury, the eGFR may not accurately reflect actual GFR. Performed By: #### 2 4325-3, 83995-5 ####[facility]CLIA [id number] [place] [address] [place] Glucose [Mass/Vol] 91 mg/dL Normal 74-99 [facility] Comment on above: Order Comment: Tenisha benoit Type: BLOOD SPECIMENOrdering Facility: [facility] Address: [address] [place] [address] Result Comment: The [place] [employer] (ADA) provides guidance for cutoff values for fasting glucose and random glucose. The ADA defines fasting as no caloric intake for at least 8 hours. Fasting plasma glucose results between 100 to 125 mg/dL indicate increased risk for diabetes (prediabetes).Fasting plasma glucose results greater than or equal to 126 mg/dL meet the criteria for diagnosis of diabetes. In the absence of unequivocal hyperglycemia, results should be confirmed by repeat testing. In a patient with classic symptoms of hyperglycemia or hyperglycemic crisis, random plasma glucose results greater than or equal to 200 mg/dL meet the criteria for diagnosis of diabetes.Reference: Standards of Medical Care in Diabetes 2016, [place] [employer]. Diabetes Care. 2016.39(Suppl 1). Performed By: #### 2 4325-3, 70330-0 ####[facility] LABCLIA [id number] [place] [address] [place] Potassium [Moles/Vol] 3.9 mmol/L Normal 3.7-5.1 [facility] Comment on above: Order Comment: Speci men Type: BLOOD SPECIMENOrdering Facility: [facility] Address: [address] [place] [address] Performed By: #### 2 4325-3, 19968-0 ####[facility] LABCLIA [id number] [place] [address] [place] Sodium [Moles/Vol] 141 mmol/L Normal 136-144 [facility] Comment on above: Order Comment: Speci men Type: BLOOD SPECIMENOrdering Facility: [facility] Address: [address] [place] [address] Performed By: #### 2 4325-3, 19554-5 ####[facility] LABCLIA [id number] [place] [address] [place] Urea nitrogen [Mass/Vol] 12 mg/dL Normal 7-21 [facility] Comment on above: Order Comment: Speci men Type: BLOOD SPECIMENOrdering Facility: [facility] Address: [address] [place] [address] Performed By: #### 2 4325-3, 47034-0 ####[facility] LABCLIA [id number] [place] [address] [place] CBC W Auto Differential pane l (Bld)on 09-16-2025 Basophils (Bld) [#/Vol] 10*3/uL Normal <0.11 [facility] Comment on above: Order Comment: Speci men Type: BLOOD SPECIMENOrdering Facility: [facility] Address: [address] [place] [address] Performed By: #### 5 7021-8 ####[facility] LABCLIA [id number] [place] [address] [place] Basophils/100 WBC (Bld) 0.4 % Normal [facility] Comment on above: Order Comment: Speci men Type: BLOOD SPECIMENOrdering Facility: [facility] Address: [address] [place] [address] Performed By: #### 5 7021-8 ####[facility]CLIA [id number] [place] [address] [place] Differential cell count method Nom (Bld) Auto Normal [facility] Comment on above: Order Comment: Speci men Type: BLOOD SPECIMENOrdering Facility: [facility] Address: [address] [place] [address] Performed By: #### 5 7021-8 ####[facility] LABCLIA [id number] [place] [address] [place] Eosinophils (Bld) [#/Vol] 0.10 10*3/uL Normal <0.46 [facility] Comment on above: Order Comment: Speci men Type: BLOOD SPECIMENOrdering Facility: [facility] Address: [address] [place] [address] Performed By: #### 5 7021-8 ####[facility] LABCLIA [id number] [address] [place] Eosinophils/100 WBC (Bld) 2.0 % Normal [facility] Comment on above: Order Comment: Speci men Type: BLOOD SPECIMENOrdering Facility: [facility] Address: [address] [place] [address] Performed By: #### 5 7021-8 ####[facility] LABCLIA [id number] [place] [address] [place] Erythrocyte distribution width (RBC) [Ratio] 14.2 % Normal 11.5-15.0 [facility] Comment on above: Order Comment: Speci men Type: BLOOD SPECIMENOrdering Facility: [facility] Address: [address] [place] [address] Performed By: #### 5 7021-8 ####[facility] LABCLIA [id number] [place] [address] [place] Hematocrit (Bld) [Volume fraction] 27.9 % Low 36.0-46.0 [facility] Comment on above: Order Comment: Speci men Type: BLOOD SPECIMENOrdering Facility: [facility] Address: [address] [place] [address] Performed By: #### 5 7021-8 ####[facility] LABCLIA [id number] [place] [address] [place] Hemoglobin (Bld) [Mass/Vol] 8.3 g/dL Low 11.5-15.5 [facility] Comment on above: Order Comment: Speci men Type: BLOOD SPECIMENOrdering Facility: [facility] Address: [address] [place] [address] Performed By: #### 5 7021-8 ####[facility] LABCLIA [id number] [place] [address] [place] Immature granulocytes (Bld) [#/Vol] 10*3/uL Normal <0.10 [facility] Comment on above: Order Comment: Speci men Type: BLOOD SPECIMENOrdering Facility: [facility] Address: [address] [place] [address] Performed By: #### 5 7021-8 ####[facility] LABCLIA [id number] [place] [address] [place] Immature granulocytes/100 WBC (Bld) 0.2 % Normal [facility] Comment on above: Order Comment: Speci men Type: BLOOD SPECIMENOrdering Facility: [facility] Address: [address] [place] [address] Performed By: #### 5 7021-8 ####[facility] LABCLIA [id number] [place] [address] [place] Lymphocytes (Bld) [#/Vol] 1.28 10*3/uL Normal 1.00-4.00 [facility] Comment on above: Order Comment: Speci men Type: BLOOD SPECIMENOrdering Facility: [facility] Address: [address] [place] [address] Performed By: #### 5 7021-8 ####[facility] LABCLIA [id number] [address] [place] Lymphocytes/100 WBC (Bld) 25.0 % Normal [facility] Comment on above: Order Comment: Speci men Type: BLOOD SPECIMENOrdering Facility: [facility] Address: [address] [place] [address] Performed By: #### 5 7021-8 ####[facility] LABCLIA [id number] [place] [address] [place] MCH (RBC) [Entitic mass] 25.6 pg Low 26.0-34.0 [facility] Comment on above: Order Comment: Speci men Type: BLOOD SPECIMENOrdering Facility: [facility] Address: [address] [place] [address] Performed By: #### 5 7021-8 ####[facility] LABCLIA [id number] [address] [place] MCHC (RBC) [Mass/Vol] 29.7 g/dL Low 30.5-36.0 [facility] Comment on above: Order Comment: Speci men Type: BLOOD SPECIMENOrdering Facility: [facility] Address: [address] [place] [address] Performed By: #### 5 7021-8 ####[facility] LABCLIA [id number] [place] [address] [place] MCV (RBC) [Entitic vol] 86.1 fL Normal 80.0-100.0 [facility] Comment on above: Order Comment: Speci men Type: BLOOD SPECIMENOrdering Facility: [facility] Address: [address] [place] [address] Performed By: #### 5 7021-8 ####[facility] LABCLIA [id number] [place] [address] [place] Monocytes (Bld) [#/Vol] 0.33 10*3/uL Normal <0.87 [facility] Comment on above: Order Comment: Speci men Type: BLOOD SPECIMENOrdering Facility: [facility] Address: [address] [place] [address] Performed By: #### 5 7021-8 ####[facility] LABCLIA [id number] [place] [address] [place] Monocytes/100 WBC (Bld) 6.4 % Normal [facility] Comment on above: Order Comment: Speci men Type: BLOOD SPECIMENOrdering Facility: [facility] Address: [address] [place] [address] Performed By: #### 5 7021-8 ####[facility] LABCLIA [id number] [place] [address] [place] Neutrophils (Bld) [#/Vol] 3.38 10*3/uL Normal 1.45-7.50 [facility] Comment on above: Order Comment: Speci men Type: BLOOD SPECIMENOrdering Facility: [facility] Address: [address] [place] [address] Performed By: #### 5 7021-8 ####[facility] LABCLIA [id number] [place] [address] [place] Neutrophils/100 WBC (Bld) 66.0 % Normal [facility] Comment on above: Order Comment: Speci men Type: BLOOD SPECIMENOrdering Facility: [facility] Address: [address] [place] [address] Performed By: #### 5 7021-8 ####[facility] LABCLIA [id number] [place] [address] [place] Nucleated RBC (Bld) [#/Vol] 10*3/uL Normal <0.01 [facility] Comment on above: Order Comment: Speci men Type: BLOOD SPECIMENOrdering Facility: [facility] Address: [address] [place] [address] Performed By: #### 5 7021-8 ####[facility] LABCLIA [id number] [place] [address] [place] Nucleated RBC/100 WBC (Bld) [Ratio] 0.0 /100 WBC Normal [facility] Comment on above: Order Comment: Speci men Type: BLOOD SPECIMENOrdering Facility: [facility] Address: [address] [place] [address] Performed By: #### 5 7021-8 ####[facility] LABIA [id number] [place] [address] [place] Platelet mean volume (Bld) [Entitic vol] 12.0 fL Normal 9.0-12.7 [facility] Comment on above: Order Comment: Speci men Type: BLOOD SPECIMENOrdering Facility: [facility] Address: [address] [place] [address] Performed By: #### 5 7021-8 ####[facility] [id number] [place] [address] [place] Platelets (Bld) [#/Vol] 119 10*3/uL Low 150-400 [facility] Comment on above: Order Comment: Speci men Type: BLOOD SPECIMENOrdering Facility: [facility] Address: [address] [place] [address] Result Comment: Resu lts checked and verified.No clot detected. Performed By: #### 5 7021-8 ####[facility] LABCLIA [id number] [place] [address] [place] RBC (Bld) [#/Vol] 3.24 10*6/uL Low 3.90-5.20 [facility] Comment on above: Order Comment: Speci men Type: BLOOD SPECIMENOrdering Facility: [facility] Address: [address] [place] [address] Performed By: #### 5 7021-8 ####[facility] LABIA [id number] [place] [address] [place] WBC (Bld) [#/Vol] 5.12 10*3/uL Normal 3.70-11.00 [facility] Comment on above: Order Comment: Speci men Type: BLOOD SPECIMENOrdering Facility: [facility] Address: [address] [place] [address] Performed By: #### 5 7021-8 ####[facility] LABCLIA [id number] [place] [address] [place] CNOVon 09-16-2025 CNOV Normal [facility] Hepatic function 2000 panelo n 09-16-2025 Albumin [Mass/Vol] 3.8 g/dL Low 3.9-4.9 [facility] Comment on above: Order Comment: Speci men Type: BLOOD SPECIMENOrdering Facility: [facility] Address: [address] [place] [address] Performed By: #### 2 4325-3, 58517-4 ####[facility] LABCLIA [id number] [place] [address] [place] ALP [Catalytic activity/Vol] 110 U/L Normal 34-123 [facility] Comment on above: Order Comment: Speci men Type: BLOOD SPECIMENOrdering Facility: [facility] Address: [address] [place] [address] Performed By: #### 2 4325-3, 45589-7 ####[facility] LABCLIA [id number] [place] [address] [place] ALT [Catalytic activity/Vol] 14 U/L Normal 7-38 [facility] Comment on above: Order Comment: Speci men Type: BLOOD SPECIMENOrdering Facility: [facility] Address: [address] [place] [address] Performed By: #### 2 4325-3, 88723-1 ####[facility] LABCLIA [id number] [place] [address] [place] AST [Catalytic activity/Vol] 21 U/L Normal 13-35 [facility] Comment on above: Order Comment: Speci men Type: BLOOD SPECIMENOrdering Facility: [facility] Address: [address] [place] [address] Performed By: #### 2 4325-3, 45692-3 ####[facility] LABCLIA [id number] [place] [address] [place] Bilirubin [Mass/Vol] 0.2 mg/dL Normal 0.2-1.3 [facility] Comment on above: Order Comment: Speci men Type: BLOOD SPECIMENOrdering Facility: [facility] Address: [address] [place] [address] Performed By: #### 2 4325-3, 92537-2 ####[facility] LABCLIA [id number] [place] [address] [place] Bilirubin.conjugate d [Mass/Vol] 0.1 mg/dL Normal <0.3 [facility] Comment on above: Order Comment: Speci men Type: BLOOD SPECIMENOrdering Facility: [facility] Address: [address] [place] [address] Performed By: #### 2 4325-3, 43313-0 ####[facility] LABCLIA [id number] [place] [address] [place] Protein [Mass/Vol] 6.4 g/dL Normal 6.3-8.0 [facility] Comment on above: Order Comment: Speci men Type: BLOOD SPECIMENOrdering Facility: [facility] Address: [address] [place] [address] Performed By: #### 2 4325-3, 59879-6 ####[facility] LABCLIA [id number] [place] [address] [place] PT panel Coag (PPP)on 2024 INR Coag (PPP) [Relative time] 1.1 {INR} Normal 0.9-1.3 [facility] Comment on above: Order Comment: Speci men Type: BLOOD SPECIMENOrdering Facility: [facility] Address: [address] [place] [address] Result Comment: Jagruti min K Antagonist (VKA) Therapeutic Range: INR 2 to 3 (Target INR of 2.5)Note: For patients treated with VKA drugs, such as warfarin, the [place] [employer] 2012 Guideline recommends a therapeutic INR range of 2 to 3 (target INR of 2.5). This recommendation includes high-risk patients with antiphospholipid syndrome with previous arterial or venous thromboembolism, current-generation mechanical or bioprosthetic aortic heart valve replacement.Note: Patients with mechanical aortic valve replacement and additional risk factors for thromboembolic events (atrial fibrillation, previous thromboembolism, LV dysfunction, hypercoagulable conditions) or an older generation mechanical AVR (i.e., ball in-Cage) or any mechanical MVR should have a INR therapeutic range of 2.5 to 3.5 (target INR of 3).Jordi GH, et al. Chest 2012, 141:7S-47SVinicio RA, et al. [facility] 2017, 70: 252-289 Performed By: #### 3 4528-0 ####[facility] LABIA [id number] [place] [address] [place] PT Coag (PPP) [Time] 11.6 s Normal 9.7-13.0 [facility] Comment on above: Order Comment: Speci men Type: BLOOD SPECIMENOrdering Facility: [facility] Address: [address] [place] [address] Performed By: #### 3 4528-0 ####[facility] LABIA [id number] [place] [address] [place] CNPNon 09-05-2025 CNPN Normal [facility] CNPNon 09-01-2025 CNPN Normal [facility] CNOVon 08-19-2025 CNOV Normal [facility] CNOVon 08-18-2025 CNOV Normal [facility] CNOVon 08-04-2025 CNOV Normal [facility] ALBUMIN/CREATININE RATIO, UR INEon 07-27-2025 Albumin DL <= 20 mg/L (U) [Mass/Vol] 26.5 mg/L Normal [facility] Comment on above: Order Comment: Speci men Type: URINE SPECIMENOrdering Facility: [facility] Address: [address] [place] [address] Performed By: #### U ACR ####[facility] LABIA [id number] [place] [address] [place] Albumin/Creatinine (U) [Mass ratio] 23 mg/g Normal <30 [facility] Comment on above: Order Comment: Speci men Type: URINE SPECIMENOrdering Facility: [facility] Address: [address] [place] [address] Result Comment: Adul t Male and Female Nephrotic Criteria:<30 mg/g is considered normal to mildly zsxtshoes36-558 mg/g is considered moderately increased>300 mg/g is considered severely increasedKDIGO. (2013). KDIGO 2012 Clinical Practice Guideline for the Evaluation and Management of Chronic Kidney Disease. Official Journal of the International Society of Nephrology, 3(1), 1-150. Performed By: #### U ACR ####[facility] LABIA [id number] [place] [address] [place] Creatinine (U) [Mass/Vol] 116.6 mg/dL Normal 20.0-300.0 [facility] Comment on above: Order Comment: Speci men Type: URINE SPECIMENOrdering Facility: [facility] Address: [address] [place] [address] Performed By: #### U ACR ####[facility] LABIA [id number] [place] [id number] [place] CBC W Auto Differential pane l (Bld)on 07-27-2025 Basophils (Bld) [#/Vol] 10*3/uL Normal <0.11 [facility] Comment on above: Order Comment: Speci men Type: BLOOD SPECIMENOrdering Facility: [facility] Address: [address] [place] [address] Performed By: #### 5 7021-8 ####[facility] [id number] [place] [address] [place] Basophils/100 WBC (Bld) 0.4 % Normal [facility] Comment on above: Order Comment: Speci men Type: BLOOD SPECIMENOrdering Facility: [facility] Address: [address] [place] [address] Performed By: #### 5 7021-8 ####[facility]ENTERLIA [id number] [place] [address] [place] Differential cell count method Nom (Bld) Auto Normal [facility] Comment on above: Order Comment: Speci men Type: BLOOD SPECIMENOrdering Facility: [facility] Address: [address] [place] [address] Performed By: #### 5 7021-8 ####[facility] [id number] [place] [address] [place] Eosinophils (Bld) [#/Vol] 0.07 10*3/uL Normal <0.46 [facility] Comment on above: Order Comment: Speci men Type: BLOOD SPECIMENOrdering Facility: [facility] Address: [address] [place] [address] Performed By: #### 5 7021-8 ####[facility] [id number] [place] [address] [place] Eosinophils/100 WBC (Bld) 1.4 % Normal [facility] Comment on above: Order Comment: Speci men Type: BLOOD SPECIMENOrdering Facility: [facility] Address: [address] [place] [address] Performed By: #### 5 7021-8 ####[facility]ITALN[facility] [id number] [place] [address] [place] Erythrocyte distribution width (RBC) [Ratio] 13.6 % Normal 11.5-15.0 [facility] Comment on above: Order Comment: Speci men Type: BLOOD SPECIMENOrdering Facility: [facility] Address: [address] [place] [address] Performed By: #### 5 7021-8 ####[facility] OLGA LIDIAWANGIELIA [id number] [place] [address] [place] Hematocrit (Bld) [Volume fraction] 29.8 % Low 36.0-46.0 [facility] Comment on above: Order Comment: Speci men Type: BLOOD SPECIMENOrdering Facility: [facility] Address: [address] [place] [address] Performed By: #### 5 7021-8 ####[facility] [id number] [place] [address] [place] Hemoglobin (Bld) [Mass/Vol] 9.3 g/dL Low 11.5-15.5 [facility] Comment on above: Order Comment: Speci men Type: BLOOD SPECIMENOrdering Facility: [facility] Address: [address] [place] [address] Performed By: #### 5 7021-8 ####[facility] [id number] [place] [address] [place] Immature granulocytes (Bld) [#/Vol] 10*3/uL Normal <0.10 [facility] Comment on above: Order Comment: Speci men Type: BLOOD SPECIMENOrdering Facility: [facility] Address: [address] [place] [address] Performed By: #### 5 7021-8 ####[facility]ENTERLIA [id number] [place] [address] [place] Immature granulocytes/100 WBC (Bld) 0.2 % Normal [facility] Comment on above: Order Comment: Speci men Type: BLOOD SPECIMENOrdering Facility: [facility] Address: [address] [place] [address] Performed By: #### 5 7021-8 ####[facility] [id number] [place] [address] [place] Lymphocytes (Bld) [#/Vol] 1.56 10*3/uL Normal 1.00-4.00 [facility] Comment on above: Order Comment: Speci men Type: BLOOD SPECIMENOrdering Facility: [facility] Address: [address] [place] [address] Performed By: #### 5 7021-8 ####[facility] [id number] [place] [address] [place] Lymphocytes/100 WBC (Bld) 32.2 % Normal [facility] Comment on above: Order Comment: Speci men Type: BLOOD SPECIMENOrdering Facility: [facility] Address: [address] [place] [address] Performed By: #### 5 7021-8 ####[facility] [id number] [place] [address] [place] MCH (RBC) [Entitic mass] 28.1 pg Normal 26.0-34.0 [facility] Comment on above: Order Comment: Speci men Type: BLOOD SPECIMENOrdering Facility: [facility] Address: [address] [place] [address] Performed By: #### 5 7021-8 ####[facility] [id number] [place] [address] [place] MCHC (RBC) [Mass/Vol] 31.2 g/dL Normal 30.5-36.0 [facility] Comment on above: Order Comment: Speci men Type: BLOOD SPECIMENOrdering Facility: [facility] Address: [address] [place] [address] Performed By: #### 5 7021-8 ####[facility]ITALNCLI [id number] [place] [address] [place] MCV (RBC) [Entitic vol] 90.0 fL Normal 80.0-100.0 [facility] Comment on above: Order Comment: Speci men Type: BLOOD SPECIMENOrdering Facility: [facility] Address: [address] [place] [address] Performed By: #### 5 7021-8 ####[facility] OLGA LIDIAFITO [id number] [place] [address] [place] Monocytes (Bld) [#/Vol] 0.29 10*3/uL Normal <0.87 [facility] Comment on above: Order Comment: Speci men Type: BLOOD SPECIMENOrdering Facility: [facility] Address: [address] [place] [address] Performed By: #### 5 7021-8 ####[facility]ITALANGIELAKEVIEW [facility] [id number] [place] [address] [place] Monocytes/100 WBC (Bld) 6.0 % Normal [facility] Comment on above: Order Comment: Speci men Type: BLOOD SPECIMENOrdering Facility: [facility] Address: [address] [place] [address] Performed By: #### 5 7021-8 ####[facility] [id number] [place] [address] [place] Neutrophils (Bld) [#/Vol] 2.89 10*3/uL Normal 1.45-7.50 [facility] Comment on above: Order Comment: Speci men Type: BLOOD SPECIMENOrdering Facility: [facility] Address: [address] [place] [address] Performed By: #### 5 7021-8 ####[facility]ITALNCA [id number] [place] [address] [place] Neutrophils/100 WBC (Bld) 59.8 % Normal [facility] Comment on above: Order Comment: Speci men Type: BLOOD SPECIMENOrdering Facility: [facility] Address: [address] [place] [address] Performed By: #### 5 7021-8 ####[facility]ITALNCLIA [id number] [place] [address] [place] Nucleated RBC (Bld) [#/Vol] 10*3/uL Normal <0.01 [facility] Comment on above: Order Comment: Speci men Type: BLOOD SPECIMENOrdering Facility: [facility] Address: [address] [place] [address] Performed By: #### 5 7021-8 ####[facility] [id number] [place] [address] [place] Nucleated RBC/100 WBC (Bld) [Ratio] 0.0 /100 WBC Normal [facility] Comment on above: Order Comment: Speci men Type: BLOOD SPECIMENOrdering Facility: [facility] Address: [address] [place] [address] Performed By: #### 5 7021-8 ####[facility] [id number] [place] [address] [place] Platelet mean volume (Bld) [Entitic vol] 12.1 fL Normal 9.0-12.7 [facility] Comment on above: Order Comment: Speci men Type: BLOOD SPECIMENOrdering Facility: [facility] Address: [address] [place] [address] Performed By: #### 5 7021-8 ####[facility]ENTERLI [id number] [place] [address] [place] Platelets (Bld) [#/Vol] 111 10*3/uL Low 150-400 [facility] Comment on above: Order Comment: Speci men Type: BLOOD SPECIMENOrdering Facility: [facility] Address: [address] [place] [address] Performed By: #### 5 7021-8 ####[facility] [id number] [place] [address] [place] RBC (Bld) [#/Vol] 3.31 10*6/uL Low 3.90-5.20 [facility] Comment on above: Order Comment: Speci men Type: BLOOD SPECIMENOrdering Facility: [facility] Address: [address] [place] [address] Performed By: #### 5 7021-8 ####[facility] [id number] [place] [address] [place] WBC (Bld) [#/Vol] 4.84 10*3/uL Normal 3.70-11.00 [facility] Comment on above: Order Comment: Vaughni men Type: BLOOD SPECIMENOrdering Facility: [facility] Address: [address] [place] [address] Performed By: #### 5 7021-8 ####[facility] [id number] [place] [address] [place] HbA1c (Bld)on 07-27-2025 Average glucose Estimated from glycated hemoglobin (Bld) [Mass/Vol] 194 mg/dL Normal [facility] Comment on above: Order Comment: Vaughni kaycee Type: BLOOD SPECIMENOrdering Facility: [facility] Address: [address] [place] [address] Result Comment: eAG: (Estimated average glucose) is a calculated value from HgbA1c and is bilingual inside sales representative of the average blood glucose level in the last 2-3 month period. Performed By: #### 5 5454-3 ####[facility] LABCLIA [id number] [place] [address] [place] HbA1c (Bld) [Mass fraction] 8.4 % High 4.3-5.6 [facility] Comment on above: Order Comment: Vaughni men Type: BLOOD SPECIMENOrdering Facility: [facility] Address: [address] [place] [address] Result Comment: [place] Diabetes Association guidelines indicate that patients with HgbA1c in the range 5.7-6.4% are at increased risk for development of diabetes, and intervention by lifestyle modification may be beneficial. HgbA1c greater or equal to 6.5% is considered diagnostic of diabetes. Performed By: #### 5 5454-3 ####[facility] LABCLIA [id number] [address] [address] [place] [facility] Lipid 1996 panelon 5 Cholesterol [Mass/Vol] 202 mg/dL High <200 [facility] Comment on above: Order Comment: Tenisha men Type: BLOOD SPECIMENOrdering Facility: [facility] [facility] Address: [address] [place] [address] Result Comment: <200 mg/dL, Desirable 200-239 mg/dL, Borderline high>239 mg/dL, High Performed By: #### 2 4331-1 ####[facility] LABCLIA [id number] [address] [id number] [place] [address] Cholesterol in HDL [Mass/Vol] 31 mg/dL Low >39 [facility] Comment on above: Order Comment: Tenisha benoit Type: BLOOD SPECIMENOrdering Facility: [facility] Address: [address] [place] [address] Result Comment: 40-5 9 mg/dL, Acceptable>59 mg/dL, High: Negative risk factor for coronary heart disease<40 mg/dL, Low: Positive risk factor for coronary heart disease Performed By: #### 2 4331-1 ####[facility] LABCLIA [id number] [place] [id number] [facility] [id number] [address] Cholesterol in LDL [Mass/Vol] 136 mg/dL High <100 [facility] Comment on above: Order Comment: Tenisha men Type: BLOOD SPECIMENOrdering Facility: [facility] Address: [address] [place] [address] Result Comment: <100 mg/dL, Optimal 100-129 mg/dL, Near optimal/above optimal 130-159 mg/dL, Borderline high 160-189 mg/dL, High>189 mg/dL, Very highSecondary prevention optimal LDL Cholesterol levels are recommended to be <70 mg/dLLDL cholesterol is calculated using the Forbes-NIH equation. Performed By: #### 2 4331-1 ####[facility] [id number] [address] [id number] [place] [address] [place] Cholesterol in LDL/Cholesterol in HDL [Mass ratio] 4.39 {ratio} High <2.54 [facility] Comment on above: Order Comment: Speci men Type: BLOOD SPECIMENOrdering Facility: [facility] Address: [address] [place] [address] Result Comment: Refe rence:1. National Cholesterol Education Program ATP III Guideline At-A-Glance Quick Desk Reference: National Heart, Lung, and Blood [place]. National Institutes of Health. 2001: NIH Publication No. 01-3305.2. An International Atherosclerosis Society position paper: global recommendations for the management of dyslipidemia: executive summary, Atherosclerosis. 2014: 232(2):410-413. Performed By: #### 2 4331-1 ####[facility] [id number] [address] [id number] [place] [address] [place] Cholesterol in VLDL [Mass/Vol] 35 mg/dL High <30 [facility] Comment on above: Order Comment: Speci men Type: BLOOD SPECIMENOrdering Facility: [facility] Address: [address] [place] [address] Performed By: #### 2 4331-1 ####[facility] LABIA [id number] [address] [id number] [address] [place] Cholesterol non HDL [Mass/Vol] 171 mg/dL High <130 [facility] Comment on above: Order Comment: Speci men Type: BLOOD SPECIMENOrdering Facility: [facility] Address: [address] [place] [address] Result Comment: <130 mg/dL, Optimal 130-159 mg/dL, Near optimal/above optimal 160-189 mg/dL, Borderline high 190-219 mg/dL, High>219 mg/dL, Very highSecondary prevention optimal non HDL Cholesterol levels are recommended to be <100 mg/dL Performed By: #### 2 4331-1 ####[facility]CLIA [id number] [id number] [place] [address] [place] Cholesterol.total/C holesterol in HDL [Mass ratio] 6.52 {ratio} High <5.10 [facility] Comment on above: Order Comment: Speci men Type: BLOOD SPECIMENOrdering Facility: [facility] Address: [address] [place] [address] Performed By: #### 2 4331-1 ####[facility]CL[facility] [id number] [address] [id number] [place] [address] [place] FASTING TIME 12 hrs Normal [facility] Comment on above: Order Comment: Speci men Type: BLOOD SPECIMENOrdering Facility: [facility] Address: [address] [place] [address] Performed By: #### 2 4331-1 ####[facility] LABCLIA [id number] [place] [id number] [facility] [id number] [place] [address] [place] Triglyceride [Mass/Vol] 195 mg/dL High <150 [facility] Comment on above: Order Comment: Speci men Type: BLOOD SPECIMENOrdering Facility: [facility] Address: [address] [place] [address] Result Comment: <150 mg/dL, Normal 150-199 mg/dL, Borderline high 200-499 mg/dL, High>499 mg/dL, Very high Performed By: #### 2 4331-1 ####[facility]CLIA [id number] [address] [id number] [place] [address] [place] CNPNon 07-12-2025 CNPN Normal [facility] CNCOon 07-06-2025 CNCO Letter Text Normal [facility] CNCOon 06-21-2025 CNCO Letter Text Normal [facility] CNPNon 06-21-2025 CNPN Normal [facility] CNOVon 06-09-2025 CNOV Normal [facility] CNPNon 06-02-2025 CNPN Normal [facility] MR Biliary ducts and Pancrea tic duct WO and W contrast Marialuisa 06-01-2025 * * *Final Report* * * DATE OF EXAM: Jun 01 2025 3:55PM [facility] 0730 - MRI PANC/KANDI WO/W IVCON / PROCEDURE REASON: Cirrhosis of liver without ascites, unspecified hepatic cirrhosis type (HCC) * * * * Physician Interpretation * * * * MRI ABDOMEN / PANCREAS-BILIARY WITHOUT AND WITH IV CONTRAST 3-D POSTPROCESSING HISTORY: Cirrhosis. TECHNIQUE: Magnet: 1.5T scanner. Multiplanar MRI with multiple sequences before and after contrast. Three dimensional imaging was performed on a stand-alone 3D workstation with images created, reviewed, and archived by the interpreting physician. Contrast: IV: 8.5 ml of Elucirem COMPARISON: CT 11/03/2024. RESULT: Hepatic morphology and masses: Cirrhotic liver morphology. OPTN 5A / Li-RADS 5 lesions: None. Hepatic vasculature and collaterals: Limited due to respiratory motion -Portal venous system: Patent. -Celiac trunk and SMA: Patent. No stenosis. -Hepatic artery: Patent. Conventional anatomy. -Hepatic veins: Patent. Collaterals: Spontaneous splenorenal shunt: No Recanalized paraumbilical vein: No Esophageal varices: Small Mesenteric portosystemic collaterals: No Biliary: Cholecystectomy. No bile duct dilation. Spleen: No mass. Splenomegaly to 15 cm craniocaudal length. Pancreas: No mass or duct dilation. Adrenals: No mass. Kidneys: Punctate cysts. No solid or complicated cystic mass. No hydronephrosis. GI tract: No dilation or wall thickening. Lymph nodes: Shotty julisa hepatis lymph nodes are likely reactive. No abdominal lymphadenopathy. Mesentery / Peritoneum: No ascites. Vasculature (other): - Abdominal aorta: No aneurysm -IVC: Patent without thrombus Bones/Soft Tissues: No acute findings. Localizer images: No additional findings. DIVISION OF RADIOLOGY Provider, [facility] - 06/01/2025 * * *Final Report* * * DATE OF EXAM: Jun 01 2025 3:55PM [facility] 0730 - MRI PANC/KANDI WO/W IVCON / PROCEDURE REASON: Cirrhosis of liver without ascites, unspecified hepatic cirrhosis type (HCC) * * * * Physician Interpretation * * * * MRI ABDOMEN / PANCREAS-BILIARY WITHOUT AND WITH IV CONTRAST 3-D POSTPROCESSING HISTORY: Cirrhosis. TECHNIQUE: Magnet: 1.5T scanner. Multiplanar MRI with multiple sequences before and after contrast. Three dimensional imaging was performed on a stand-alone 3D workstation with images created, reviewed, and archived by the interpreting physician. Contrast: IV: 8.5 ml of Elucirem COMPARISON: CT 11/03/2024. RESULT: Hepatic morphology and masses: Cirrhotic liver morphology. OPTN 5A / Li-RADS 5 lesions: None. Hepatic vasculature and collaterals: Limited due to respiratory motion -Portal venous system: Patent. -Celiac trunk and SMA: Patent. No stenosis. -Hepatic artery: Patent. Conventional anatomy. -Hepatic veins: Patent. Collaterals: Spontaneous splenorenal shunt: No Recanalized paraumbilical vein: No Esophageal varices: Small Mesenteric portosystemic collaterals: No Biliary: Cholecystectomy. No bile duct dilation. Spleen: No mass. Splenomegaly to 15 cm craniocaudal length. Pancreas: No mass or duct dilation. Adrenals: No mass. Kidneys: Punctate cysts. No solid or complicated cystic mass. No hydronephrosis. GI tract: No dilation or wall thickening. Lymph nodes: Shotty julisa hepatis lymph nodes are likely reactive. No abdominal lymphadenopathy. Mesentery / Peritoneum: No ascites. Vasculature (other): - Abdominal aorta: No aneurysm -IVC: Patent without thrombus Bones/Soft Tissues: No acute findings. Localizer images: No additional findings. IMPRESSION IMPRESSION: Cirrhotic liver with mild splenomegaly and esophageal varices. No ascites. OPTN 5 / Li-RADS 5 lesions: None . Manager Professional Development: [facility] Transcribe Date/Time: Jun 01 2025 8:29P Dictated by : CRYS SOTO MD This examination was interpreted and the report reviewed and electronically signed by: CRYS SOTO MD on Jun 01 2025 8:34PM [facility] MR Unspecified body region 3 D post processingon 06-01-2025 * * *Final Report* * * DATE OF EXAM: Jun 01 2025 3:55PM [facility] 0280 - MRI 3D POST PROCESSING / PROCEDURE REASON: Cirrhosis of liver without ascites, unspecified hepatic cirrhosis type (HCC) * * * * Physician Interpretation * * * * MRI ABDOMEN / PANCREAS-BILIARY WITHOUT AND WITH IV CONTRAST 3-D POSTPROCESSING HISTORY: Cirrhosis. TECHNIQUE: Magnet: 1.5T scanner. Multiplanar MRI with multiple sequences before and after contrast. Three dimensional imaging was performed on a stand-alone 3D workstation with images created, reviewed, and archived by the interpreting physician. Contrast: IV: 8.5 ml of Elucirem COMPARISON: CT 11/03/2024. RESULT: Hepatic morphology and masses: Cirrhotic liver morphology. OPTN 5A / Li-RADS 5 lesions: None. Hepatic vasculature and collaterals: Limited due to respiratory motion -Portal venous system: Patent. -Celiac trunk and SMA: Patent. No stenosis. -Hepatic artery: Patent. Conventional anatomy. -Hepatic veins: Patent. Collaterals: Spontaneous splenorenal shunt: No Recanalized paraumbilical vein: No Esophageal varices: Small Mesenteric portosystemic collaterals: No Biliary: Cholecystectomy. No bile duct dilation. Spleen: No mass. Splenomegaly to 15 cm craniocaudal length. Pancreas: No mass or duct dilation. Adrenals: No mass. Kidneys: Punctate cysts. No solid or complicated cystic mass. No hydronephrosis. GI tract: No dilation or wall thickening. Lymph nodes: Shotty julisa hepatis lymph nodes are likely reactive. No abdominal lymphadenopathy. Mesentery / Peritoneum: No ascites. Vasculature (other): - Abdominal aorta: No aneurysm -IVC: Patent without thrombus Bones/Soft Tissues: No acute findings. Localizer images: No additional findings. DIVISION OF RADIOLOGY Provider, [facility] - 06/01/2025 * * *Final Report* * * DATE OF EXAM: Jun 01 2025 3:55PM [facility] 0280 - MRI 3D POST PROCESSING / PROCEDURE REASON: Cirrhosis of liver without ascites, unspecified hepatic cirrhosis type (HCC) * * * * Physician Interpretation * * * * MRI ABDOMEN / PANCREAS-BILIARY WITHOUT AND WITH IV CONTRAST 3-D POSTPROCESSING HISTORY: Cirrhosis. TECHNIQUE: Magnet: 1.5T scanner. Multiplanar MRI with multiple sequences before and after contrast. Three dimensional imaging was performed on a stand-alone 3D workstation with images created, reviewed, and archived by the interpreting physician. Contrast: IV: 8.5 ml of Elucirem COMPARISON: CT 11/03/2024. RESULT: Hepatic morphology and masses: Cirrhotic liver morphology. OPTN 5A / Li-RADS 5 lesions: None. Hepatic vasculature and collaterals: Limited due to respiratory motion -Portal venous system: Patent. -Celiac trunk and SMA: Patent. No stenosis. -Hepatic artery: Patent. Conventional anatomy. -Hepatic veins: Patent. Collaterals: Spontaneous splenorenal shunt: No Recanalized paraumbilical vein: No Esophageal varices: Small Mesenteric portosystemic collaterals: No Biliary: Cholecystectomy. No bile duct dilation. Spleen: No mass. Splenomegaly to 15 cm craniocaudal length. Pancreas: No mass or duct dilation. Adrenals: No mass. Kidneys: Punctate cysts. No solid or complicated cystic mass. No hydronephrosis. GI tract: No dilation or wall thickening. Lymph nodes: Shotty julisa hepatis lymph nodes are likely reactive. No abdominal lymphadenopathy. Mesentery / Peritoneum: No ascites. Vasculature (other): - Abdominal aorta: No aneurysm -IVC: Patent without thrombus Bones/Soft Tissues: No acute findings. Localizer images: No additional findings. IMPRESSION IMPRESSION: Cirrhotic liver with mild splenomegaly and esophageal varices. No ascites. OPTN 5 / Li-RADS 5 lesions: None . Manager Professional Development: [facility] Transcribe Date/Time: Jun 01 2025 8:29P Dictated by : CRYS SOTO MD This examination was interpreted and the report reviewed and electronically signed by: CRYS SOTO MD on Jun 01 2025 8:34PM EST [facility] MRI 3D POST PROCESSINGon MRI 3D POST PROCESSING Normal [facility] MRI PANC/KANDI WO/W IVCONon MRI PANC/KANDI WO/W IVCON Normal [facility] No Panel Informationon 06-01 IMPRESSION: Cirrhotic liver with mild splenomegaly and esophageal varices. No ascites. OPTN 5 / Li-RADS 5 lesions: None . Manager Professional Development: [facility] Transcribe Date/Time: Jun 01 2025 8:29P Dictated by : CRYS SOTO MD This examination was interpreted and the report reviewed and electronically signed by: CRYS SOTO MD on Jun 01 2025 8:34PM [facility] DIVISION OF RADIOLOGY Radiology Study observation (narrative) [facility] No Panel InformationOrdered By: [facility] Provider on 06-01-2025 [facility] CNOVon 05-27-2025 CNOV Normal [facility] Anion gap in Serum or Plasma Ordered By: Ashley Cabrera on 05-17-2025 Anion gap [Moles/Vol] 9 mmol/L 03-31 [facility] BUN/creatinine ratioOrdered By: Ashley Cabrera on 05-17-2025 Urea nitrogen/Creatinine [Mass ratio] 14.2 mg/mg 09-05 [facility] Basic Metabolic Profile (BMP )on 05-17-2025 BUN/CRE 14.2 RATIO Normal 09-05 [facility] Comment on above: Performed By: #### L 500.2500 #### [facility] [place], [address] Calcium [Mass/Vol] 10.1 mg/dL Normal 7.6-11.0 [facility] Comment on above: Performed By: #### L 500.2500 #### [facility] [address] [place], [address] Chloride [Moles/Vol] 106 mmol/L Normal 98-108 [facility] Comment on above: Performed By: #### L 500.2500 #### [facility] [address] [place], [address] CO2 [Moles/Vol] 26.7 mmol/L Normal 21.0-32.0 [facility] Comment on above: Performed By: #### L 500.2500 #### [facility] [address] [place], [address] Creatinine [Mass/Vol] 1.16 mg/dL Normal 0.70-1.20 [facility] Comment on above: Performed By: #### L 500.2500 #### [facility] [address] [place], [address] GAP 9 Normal 5-15 [facility] Comment on above: Performed By: #### L 500.2500 #### [facility] [address] [place], [address] GFR/1.73 sq M.predicted among non-blacks MDRD (S/P/Bld) [Vol rate/Area] 50 mL/min/{1.73_m2} Low >60 [facility] Comment on above: Result Comment: mL/m in/1.73m2 CKD-EPI Creatinine Equation (2020) Performed By: #### L 500.2500 #### [facility] [address] [place], [address] Glucose [Mass/Vol] 127 mg/dL High 70-99 [facility] Comment on above: Performed By: #### L 500.2500 #### [facility] [address] [place], [address] Potassium [Moles/Vol] 5.2 mmol/L High 3.3-5.1 [facility] Comment on above: Performed By: #### L 500.2500 #### [facility] [address] [place], [address] Sodium [Moles/Vol] 141 mmol/L Normal 133-145 [facility] Comment on above: Performed By: #### L 500.2500 #### [facility] [address] [place], [address] Urea nitrogen [Mass/Vol] 17 mg/dL Normal 4-19 [facility] Comment on above: Performed By: #### L 500.2500 #### [facility] [address] [place], [place], [id number] (001) Carbon dioxide, total [Moles /volume] in Central venous bloodOrdered By: Ashley Cabrera on 05-17-2025 CO2 [Moles/Vol] 26.7 mmol/L 21.0-32.0 [facility] Chloride assayOrdered By: Ricardo Cabrera on 05-17-2025 Chloride [Moles/Vol] 106 mmol/L 98-108 [facility] Glomerular filtration rate ( GFR) estimation/1.73 sq m using serum, plasma, or whole bOrdered By: Ashley Cabrera on 05-17-2025 GFR/1.73 sq M.predicted among non-blacks MDRD (S/P/Bld) [Vol rate/Area] 50 mL/min/{1.73_m2} Low >60 [facility] Comment on above: mL/min/1.73m2 CKD-EP I Creatinine Equation (2020) Potassium measurement (mass/ volume)Ordered By: Ashley Cabrera on 05-17-2025 Potassium (Unsp spec) [Mass/Vol] 5.2 mmol/L High 3.3-5.1 [facility] Serum creatinine measurement (mass/volume)Ordered By: Ashley Munguiaing on 05-17-2025 Creatinine [Mass/Vol] 1.16 mg/dL 0.70-1.20 [facility] Serum glucose measurement (m ass/volume)Ordered By: Ashley Tripoli on 05-17-2025 Glucose [Mass/Vol] 127 mg/dL High 70-99 [facility] Serum or plasma calcium barbara urement (mass/volume)Ordered By: Ashley Tripoli on 05-17-2025 Calcium [Mass/Vol] 10.1 mg/dL 7.6-11.0 [facility] Serum or plasma urea nitroge n measurement (mass/volume)Ordered By: Ashley Tripoli on 05-17-2025 Urea nitrogen [Mass/Vol] 17 mg/dL 4-19 [facility] Sodium levelOrdered By: Bob sanchez Tripoli on 05-17-2025 Sodium [Moles/Vol] 141 mmol/L 133-145 [facility] CNPNon 05-06-2025 CNPN Normal [facility] CNOVon 05-04-2025 CNOV Normal [facility] UA DIP, URINE (POC)on 2024 BILIRUBIN UA (POCT) Negative Negative [facility] CLARITY UA (POCT) Clear [facility] COLOR UA (POCT) Yellow [facility] GLUCOSE UA (POCT) Negative Negative mg/dL [facility] Hemoglobin Ql (U) Negative Negative [facility] KETONE UA (POCT) Trace Negative mg/dL [facility] LEUKOCYTES UA (POCT) Negative Negative [facility] NITRITE UA (POCT) Negative Negative [facility] PH UA (POCT) 5.5 4.5 - 8.0 [facility] Protein Ql (U) Negative Negative mg/dL [facility] SPECIFIC GRAVITY UA (POCT) 1.02 1.005 - 1.030 [facility] UROBILINOGEN UA (POCT) 0.2 Normal E.U./dL [facility] Location:[facility], [address] [place] [address], [place], [address] [facility] Normal [facility] CNPNon 04-22-2025 CNPN Normal [facility] HbA1c (Bld)on 04-05-2025 Average glucose Estimated from glycated hemoglobin (Bld) [Mass/Vol] 171 mg/dL Normal [facility] Comment on above: Order Comment: Tenisha benoit Type: BLOOD SPECIMENOrdering Facility: [facility] Address: [address] [place] [address] Result Comment: eAG: (Estimated average glucose) is a calculated value from HgbA1c and is bilingual inside sales representative of the average blood glucose level in the last 2-3 month period. Performed By: #### 5 5454-3 ####[facility] [id number] [place] [address] [place] [facility] HbA1c (Bld) [Mass fraction] 7.6 % High 4.3-5.6 [facility] Comment on above: Order Comment: Vaughnmilton benoit Type: BLOOD SPECIMENOrdering Facility: [facility] Address: [address] [place] [address] Result Comment: Amer ican Diabetes Association guidelines indicate that patients with HgbA1c in the range 5.7-6.4% are at increased risk for development of diabetes, and intervention by lifestyle modification may be beneficial. HgbA1c greater or equal to 6.5% is considered diagnostic of diabetes. Performed By: #### 5 5454-3 ####[facility]CLIA [id number] [address] STATES OF [facility] CNPNon 03-28-2025 CNPN Normal [facility] DBT Breast - bilateral scree ben 03-15-2025 IMPRESSION: There is no mammographic evidence of malignancy. Routine screening mammogram is recommended. Annual mammogram will be due in 1 year. BI-RADS Category 2: Benign RISK: Based on the Tyrer-Cuzick (TC) risk assessment model, this patient has a 3.0% lifetime risk of developing breast cancer, meaning they are at average risk for developing breast cancer. However, this is only an estimate based on available history provided on the patient's questionnaire. We encourage all patients to talk with their providers about these results, further recommendations for managing breast health, and appropriate supplemental screening options if the patient has dense breast tissue. Interpreting Radiologist: Kusum Cavanaugh M.D. Resident/Fellow: Mimi Murphy D.O. Electronically signed on: 03/15/2025 Manager Professional Development: [place] Transcribe Date/Time: Mar 14 2025 11:20A Dictated by: MIMI MURPHY, This examination was interpreted and the report reviewed and electronically signed by: KUSUM CAVANAUGH MD on Mar 15 2025 5:11AM [facility] DIVISION OF RADIOLOGY * * *Final Report* * * DATE OF EXAM: Mar 14 2025 12:52PM [facility] W LUCY / PROCEDURE REASON: Encounter for screening mammogram for malignant neoplasm of breast * * * * Physician Interpretation * * * * RESULT: [facility] [address] [place] [address] #[id number] - [facility] SCREENING W LUCY HISTORY: 74 year-old patient seen for screening. Patient is asymptomatic in both breasts. Patient states no personal history of breast cancer. COMPARISON STUDIES: The present examination has been compared to prior imaging studies dated 05/10/2022 (mammogram), 02/24/2023 (mammogram) and 02/26/2024 (mammogram). MAMMOGRAM TECHNIQUE: The study was acquired using full field digital technology and interpreted from soft copy. Digital Breast Tomosynthesis (DBT) images were obtained and used to assist in the interpretation of this examination. Computer-aided detection was utilized by the radiologist in the interpretation of this examination. MAMMOGRAM FINDINGS: The breasts are heterogeneously dense, which may obscure small masses. There are benign post operative findings in the left breast. There are benign calcifications in both breasts. No suspicious masses, calcifications or other abnormalities are seen in either breast. DIVISION OF RADIOLOGY Provider, [facility] - 03/15/2025 * * *Final Report* * * DATE OF EXAM: Mar 14 2025 12:52PM [facility] W LUCY / PROCEDURE REASON: Encounter for screening mammogram for malignant neoplasm of breast * * * * Physician Interpretation * * * * RESULT: [facility] [address] [place] [address] #[id number] - [facility] SCREENING W LUCY HISTORY: 74 year-old patient seen for screening. Patient is asymptomatic in both breasts. Patient states no personal history of breast cancer. COMPARISON STUDIES: The present examination has been compared to prior imaging studies dated 05/10/2022 (mammogram), 02/24/2023 (mammogram) and 02/26/2024 (mammogram). MAMMOGRAM TECHNIQUE: The study was acquired using full field digital technology and interpreted from soft copy. Digital Breast Tomosynthesis (DBT) images were obtained and used to assist in the interpretation of this examination. Computer-aided detection was utilized by the radiologist in the interpretation of this examination. MAMMOGRAM FINDINGS: The breasts are heterogeneously dense, which may obscure small masses. There are benign post operative findings in the left breast. There are benign calcifications in both breasts. No suspicious masses, calcifications or other abnormalities are seen in either breast. IMPRESSION IMPRESSION: There is no mammographic evidence of malignancy. Routine screening mammogram is recommended. Annual mammogram will be due in 1 year. BI-RADS Category 2: Benign RISK: Based on the Tyrer-Cuzick (TC) risk assessment model, this patient has a 3.0% lifetime risk of developing breast cancer, meaning they are at average risk for developing breast cancer. However, this is only an estimate based on available history provided on the patient's questionnaire. We encourage all patients to talk with their providers about these results, further recommendations for managing breast health, and appropriate supplemental screening options if the patient has dense breast tissue. Interpreting Radiologist: Kusum Cavanaugh M.D. Resident/Fellow: Mimi Murphy D.O. Electronically signed on: 03/15/2025 Manager Professional Development: MITCHELL Hardingrimervat Date/Time: Mar 14 2025 11:20A Dictated by: MIMI MURPHY, DO This examination was interpreted and the report reviewed and electronically signed by: KUSUM CAVANAUGH MD on Mar 15 2025 5:11AM EST [facility] DBT Breast - bilateral scree Onurered By: Ccf Provider on 03-15-2025 [facility] DBT Breast - bilateral scree ningon 03-14-2025 Radiology Study observation (narrative) [facility] HIRAL SCREENING W TOMOon 03-14 HIRAL SCREENING W LUCY Normal [facility] CNOVon 03-10-2025 CNOV Normal [facility] POLYSOMNOGRAM (PSG)/HOME SLE EP APNEA TEST (HSAT)on 03-03-2025 POLYSOMNOGRAM (PSG)/HOME SLEEP APNEA TEST (HSAT) Normal [facility] Alpha 1 antitrypsin [Mass/Vol] 185 mg/dL Normal 90-200 [facility] Comment on above: Order Comment: Speci men Type: BLOOD SPECIMENOrdering Facility: [facility] Address: [address] [place] [address] Performed By: #### 5 0190-8, 72724-8, 1825-07, 27932-8 ####[facility] LABCLIA [id number] [place] [address] [place] AFP [facility] 03-02-2025 AFP [Mass/Vol] 2.98 ng/mL Normal <9.00 [facility] Comment on above: Order Comment: Speci men Type: BLOOD SPECIMENOrdering Facility: [facility] Address: [address] [place] [address] Result Comment: The Alpha-Fetoprotein test was performed using the Tanja Unicel DxI immunoenzymatic assay. Results obtained with different assay methods or kits cannot be used interchangeably. Performed By: #### 1 834-1 ####[facility] LABCLIA [id number] [place] [address] [place] Basic metabolic 2000 panelon 03-02-2025 Anion gap [Moles/Vol] 8 mmol/L Normal 8-15 [facility] Comment on above: Order Comment: Speci men Type: BLOOD SPECIMENOrdering Facility: [facility] Address: [address] [place] [address] Performed By: #### 5 0190-8, 51973-3, 1825-07, 44526-2 ####[facility] LABCLIA [id number] [place] [id number] [place] Calcium [Mass/Vol] 9.8 mg/dL Normal 8.5-10.2 [facility] Comment on above: Order Comment: Speci men Type: BLOOD SPECIMENOrdering Facility: [facility] Address: [address] [place], [place] [address] Performed By: #### 5 0190-8, 92086-3, 1825-07, 91166-9 ####[facility] LABCLIA [id number] [address] [address] [place] Chloride [Moles/Vol] 106 mmol/L Normal 98-107 [facility] Comment on above: Order Comment: Speci men Type: BLOOD SPECIMENOrdering Facility: [facility] Address: [address] [place] [address] Performed By: #### 5 0190-8, 52780-5, 1825-07, 04409-9 ####[facility] LABCLIA [id number] [place] [address] [place] CO2 [Moles/Vol] 27 mmol/L Normal 22-30 [facility] Comment on above: Order Comment: Speci men Type: BLOOD SPECIMENOrdering Facility: [facility] Address: [address] [place] [address] Performed By: #### 5 0190-8, 48260-2, 1825-07, ####[facility] LABCLIA [id number] [address] [address] [place] Creatinine [Mass/Vol] 1.12 mg/dL High 0.58-0.96 [facility] Comment on above: Order Comment: Speci men Type: BLOOD SPECIMENOrdering Facility: [facility] Address: [address] [place], [place] [address] Performed By: #### 5 0190-8, 33508-3, 1825-07, 55933-3 ####[facility] LABCLIA [id number] [address] [address] [place] Creatinine and Glomerular filtration rate.predicted panel (S/P/Bld) 52 mL/min/1.73m??? Low >=60 [facility] Comment on above: Order Comment: Tenisha benoit Type: BLOOD SPECIMENOrdering Facility: [facility] Address: [address] [place] [address] Result Comment: Lorna mated Glomerular Filtration Rate (eGFR) is calculated using the 2020 CKD-EPI creatinine equation. This equation utilizes serum creatinine, sex, and age as parameters. The creatinine assay has traceable calibration to isotope dilution-mass spectrometry. Refer to KDIGO guidelines for clinical interpretation. In patients with unstable renal function, e.g. those with acute kidney injury, the eGFR may not accurately reflect actual GFR. Performed By: #### 5 0190-8, 20726-7, 1825-07, 73647-5 ####[facility] LABIA [id number] [place] [address] [place] Glucose [Mass/Vol] 132 mg/dL High 74-99 [facility] Comment on above: Order Comment: Tenisha benoit Type: BLOOD SPECIMENOrdering Facility: [facility] Address: [address] [place] [address] Result Comment: The [place] Diabetes Association (ADA) provides guidance for cutoff values for fasting glucose and random glucose. The ADA defines fasting as no caloric intake for at least 8 hours. Fasting plasma glucose results between 100 to 125 mg/dL indicate increased risk for diabetes (prediabetes).Fasting plasma glucose results greater than or equal to 126 mg/dL meet the criteria for diagnosis of diabetes. In the absence of unequivocal hyperglycemia, results should be confirmed by repeat testing. In a patient with classic symptoms of hyperglycemia or hyperglycemic crisis, random plasma glucose results greater than or equal to 200 mg/dL meet the criteria for diagnosis of diabetes.Reference: Standards of Medical Care in Diabetes 2016, [place] [employer] Association. Diabetes Care. 2016.39(Suppl 1). Performed By: #### 5 0190-8, 02041-5, 1825-07, 96421-7 ####[facility] LABIA [id number] [place] [id number] [place] Potassium [Moles/Vol] 4.3 mmol/L Normal 3.7-5.1 [facility] Comment on above: Order Comment: Speci men Type: BLOOD SPECIMENOrdering Facility: [facility] Address: [address] [place] [address] Performed By: #### 5 0190-8, 79280-8, 1825-07, 15372-5 ####[facility] LABCLIA [id number] [place] [address] [place] Sodium [Moles/Vol] 141 mmol/L Normal 136-144 [facility] Comment on above: Order Comment: Speci men Type: BLOOD SPECIMENOrdering Facility: [facility] Address: [address] [place] [address] Performed By: #### 5 0190-8, 98918-9, 1825-07, 88045-7 ####[facility] LABCLIA [id number] [place] [address] [place] Urea nitrogen [Mass/Vol] 11 mg/dL Normal 7-21 [facility] Comment on above: Order Comment: Speci men Type: BLOOD SPECIMENOrdering Facility: [facility] Address: [address] [place] [address] Performed By: #### 5 0190-8, 52060-6, 1825-07, 50319-8 ####[facility] LABCLIA [id number] [place] [address] [place] CBC W Auto Differential pane l (Bld)on 03-02-2025 Basophils (Bld) [#/Vol] 0.03 10*3/uL [facility] Basophils/100 WBC (Bld) 0.5 % [facility] Differential cell count method Nom (Bld) Auto [facility] Eosinophils (Bld) [#/Vol] 0.15 10*3/uL [facility] Eosinophils/100 WBC (Bld) 2.7 % [facility] Erythrocyte distribution width (RBC) [Ratio] 21.8 % High 11.5 - 15.0 % [facility] Hematocrit (Bld) [Volume fraction] 33 % Low 36.0 - 46.0 % [facility] Hemoglobin (Bld) [Mass/Vol] 9.8 g/dL Low 11.5 - 15.5 g/dL [facility] Immature granulocytes (Bld) [#/Vol] 0.03 10*3/uL [facility] Immature granulocytes/100 WBC (Bld) 0.5 % [facility] Interpretation and review of laboratory results Abnormal [facility] Lymphocytes (Bld) [#/Vol] 1.68 10*3/uL [facility] Lymphocytes/100 WBC (Bld) 30.5 % [facility] MCH (RBC) [Entitic mass] 26.3 pg 26.0 - 34.0 pg [facility] MCHC (RBC) [Mass/Vol] 29.7 g/dL Low 30.5 - 36.0 g/dL [facility] MCV (RBC) [Entitic vol] 88.7 fL 80.0 - 100.0 fL [facility] Monocytes (Bld) [#/Vol] 0.32 10*3/uL [facility] Monocytes/100 WBC (Bld) 5.8 % [facility] Neutrophils (Bld) [#/Vol] 3.29 10*3/uL [facility] Neutrophils/100 WBC (Bld) 60 % [facility] Nucleated RBC (Bld) [#/Vol] [facility] Nucleated RBC/100 WBC (Bld) [Ratio] 0 % /100 WBC [facility] Platelet mean volume (Bld) [Entitic vol] 12.2 fL 9.0 - 12.7 fL [facility] Platelets (Bld) [#/Vol] 123 10*3/uL Low [facility] RBC (Bld) [#/Vol] 3.72 10*6/uL Low 3.90 - 5.20 m/uL [facility] WBC (Bld) [#/Vol] 5.5 10*3/uL [facility] Basophils (Bld) [#/Vol] 0.03 10*3/uL Normal <0.11 [facility] Comment on above: Order Comment: Speci men Type: BLOOD SPECIMENOrdering Facility: [facility] Address: [address] [place], [place] [address] Performed By: #### 5 7021-8 ####[facility] LABCLIA [id number] [place] [address] [place] Basophils/100 WBC (Bld) 0.5 % Normal [facility] Comment on above: Order Comment: Speci men Type: BLOOD SPECIMENOrdering Facility: [facility] Address: [address] [place] [address] Performed By: #### 5 7021-8 ####[facility] LABCLIA [id number] [place] [address] [place] Differential cell count method Nom (Bld) Auto Normal [facility] Comment on above: Order Comment: Speci men Type: BLOOD SPECIMENOrdering Facility: [facility] Address: [address] [place] [address] Performed By: #### 5 7021-8 ####[facility] LABCLIA [id number] [place] [address] [place] Eosinophils (Bld) [#/Vol] 0.15 10*3/uL Normal <0.46 [facility] Comment on above: Order Comment: Speci men Type: BLOOD SPECIMENOrdering Facility: [facility] Address: [address] [place] [address] Performed By: #### 5 7021-8 ####[facility] LABCLIA [id number] [place] [address] [place] Eosinophils/100 WBC (Bld) 2.7 % Normal [facility] Comment on above: Order Comment: Speci men Type: BLOOD SPECIMENOrdering Facility: [facility] Address: [address] [place] [address] Performed By: #### 5 7021-8 ####[facility] LABCLIA [id number] [place] [address] [place] Erythrocyte distribution width (RBC) [Ratio] 21.8 % High 11.5-15.0 [facility] Comment on above: Order Comment: Speci men Type: BLOOD SPECIMENOrdering Facility: [facility] Address: [address] [place] [address] Performed By: #### 5 7021-8 ####[facility] LABCLIA [id number] [place] [address] [place] Hematocrit (Bld) [Volume fraction] 33.0 % Low 36.0-46.0 [facility] Comment on above: Order Comment: Speci men Type: BLOOD SPECIMENOrdering Facility: [facility] Address: [address] [place] [address] Performed By: #### 5 7021-8 ####[facility] LABIA [id number] [place] [address] [place] Hemoglobin (Bld) [Mass/Vol] 9.8 g/dL Low 11.5-15.5 [facility] Comment on above: Order Comment: Speci men Type: BLOOD SPECIMENOrdering Facility: [facility] Address: [address] [place] [address] Performed By: #### 5 7021-8 ####[facility] LABIA [id number] [place] [address] [place] Immature granulocytes (Bld) [#/Vol] 0.03 10*3/uL Normal <0.10 [facility] Comment on above: Order Comment: Speci men Type: BLOOD SPECIMENOrdering Facility: [facility] Address: [address] [place] [address] Performed By: #### 5 7021-8 ####[facility] LABIA [id number] [place] [address] [place] Immature granulocytes/100 WBC (Bld) 0.5 % Normal [facility] Comment on above: Order Comment: Speci men Type: BLOOD SPECIMENOrdering Facility: [facility] Address: [address] [place] [address] Performed By: #### 5 7021-8 ####[facility] LABIA [id number] [place] [address] [place] Lymphocytes (Bld) [#/Vol] 1.68 10*3/uL Normal 1.00-4.00 [facility] Comment on above: Order Comment: Speci men Type: BLOOD SPECIMENOrdering Facility: [facility] Address: [address] [place] [address] Performed By: #### 5 7021-8 ####[facility] LABCLIA [id number] [place] [address] [place] Lymphocytes/100 WBC (Bld) 30.5 % Normal [facility] Comment on above: Order Comment: Speci men Type: BLOOD SPECIMENOrdering Facility: [facility] Address: [address] [place] [address] Performed By: #### 5 7021-8 ####[facility] LABIA [id number] [place] [address] [place] MCH (RBC) [Entitic mass] 26.3 pg Normal 26.0-34.0 [facility] Comment on above: Order Comment: Speci men Type: BLOOD SPECIMENOrdering Facility: [facility] Address: [address] [place] [address] Performed By: #### 5 7021-8 ####[facility] LABIA [id number] [place] [address] [place] MCHC (RBC) [Mass/Vol] 29.7 g/dL Low 30.5-36.0 [facility] Comment on above: Order Comment: Speci men Type: BLOOD SPECIMENOrdering Facility: [facility] Address: [address] [place] [address] Performed By: #### 5 7021-8 ####[facility] LABCLIA [id number] [address] [place] MCV (RBC) [Entitic vol] 88.7 fL Normal 80.0-100.0 [facility] Comment on above: Order Comment: Speci men Type: BLOOD SPECIMENOrdering Facility: [facility] Address: [address] [place] [address] Performed By: #### 5 7021-8 ####[facility] LABCLIA [id number] [place] [address] [place] Monocytes (Bld) [#/Vol] 0.32 10*3/uL Normal <0.87 [facility] Comment on above: Order Comment: Speci men Type: BLOOD SPECIMENOrdering Facility: [facility] Address: [address] [place] [address] Performed By: #### 5 7021-8 ####[facility] LABCLIA [id number] [place] [address] [place] Monocytes/100 WBC (Bld) 5.8 % Normal [facility] Comment on above: Order Comment: Speci men Type: BLOOD SPECIMENOrdering Facility: [facility] Address: [address] [place] [address] Performed By: #### 5 7021-8 ####[facility] LABCLIA [id number] [place] [address] [place] Neutrophils (Bld) [#/Vol] 3.29 10*3/uL Normal 1.45-7.50 [facility] Comment on above: Order Comment: Speci men Type: BLOOD SPECIMENOrdering Facility: [facility] Address: [address] [place] [address] Performed By: #### 5 7021-8 ####[facility] LABCLIA [id number] [place] [id number] [place] Neutrophils/100 WBC (Bld) 60.0 % Normal [facility] Comment on above: Order Comment: Speci men Type: BLOOD SPECIMENOrdering Facility: [facility] Address: [address] [place] [address] Performed By: #### 5 7021-8 ####[facility] LABCLIA [id number] [place] [address] [place] Nucleated RBC (Bld) [#/Vol] 10*3/uL Normal <0.01 [facility] Comment on above: Order Comment: Speci men Type: BLOOD SPECIMENOrdering Facility: [facility] Address: [address] [place] [address] Performed By: #### 5 7021-8 ####[facility] LABIA [id number] [place] [address] [place] Nucleated RBC/100 WBC (Bld) [Ratio] 0.0 /100 WBC Normal [facility] Comment on above: Order Comment: Speci men Type: BLOOD SPECIMENOrdering Facility: [facility] Address: [address] [place] [address] Performed By: #### 5 7021-8 ####[facility] LABIA [id number] [place] [address] [place] Platelet mean volume (Bld) [Entitic vol] 12.2 fL Normal 9.0-12.7 [facility] Comment on above: Order Comment: Speci men Type: BLOOD SPECIMENOrdering Facility: [facility] Address: [address] [place] [address] Performed By: #### 5 7021-8 ####[facility] LABIA [id number] [place] [address] [place] Platelets (Bld) [#/Vol] 123 10*3/uL Low 150-400 [facility] Comment on above: Order Comment: Speci men Type: BLOOD SPECIMENOrdering Facility: [facility] Address: [address] [place] [address] Performed By: #### 5 7021-8 ####[facility] LABCLIA [id number] [place] [id number] [place] RBC (Bld) [#/Vol] 3.72 10*6/uL Low 3.90-5.20 [facility] Comment on above: Order Comment: Speci men Type: BLOOD SPECIMENOrdering Facility: [facility] Address: [address] [place] [address] Performed By: #### 5 7021-8 ####[facility] LABCLIA [id number] [place] [address] [place] WBC (Bld) [#/Vol] 5.50 10*3/uL Normal 3.70-11.00 [facility] Comment on above: Order Comment: Speci men Type: BLOOD SPECIMENOrdering Facility: [facility] Address: [address] [place] [address] Performed By: #### 5 7021-8 ####[facility] LABIA [id number] [place] [address] [place] CNOVon 03-02-2025 CNOV Normal [facility] Ferritin SerPl-mCncon 2024 Ferritin [Mass/Vol] 70.3 ng/mL Normal 14.7-205.1 [facility] Comment on above: Order Comment: Speci men Type: BLOOD SPECIMENOrdering Facility: [facility] Address: [address] [place] [address] Performed By: #### 2 276-4 ####[facility] LABIA [id number] [place] [address] [place] HBV core Ab Ser Qlon 025 HBV core Ab Ql (S) Negative Normal Negative [facility] Comment on above: Order Comment: Speci men Type: BLOOD SPECIMENOrdering Facility: [facility] Address: [address] [place] [address] Result Comment: No e vidence of current or past infection with Hepatitis B virus. Should recent infection be suspected, repeat testing may be considered 3-4 weeks after this draw. Performed By: #### 5 195-3, 46661-7, AHAVG, 11383-0 ####[facility] LABCLIA [id number] [place] HBV surface Ab Ql (S)on 02-15 HBV surface Ab Qn (S) 11.44 mIU/mL Normal [facility] Comment on above: Order Comment: Speci men Type: BLOOD SPECIMENOrdering Facility: [facility] Address: [address] [place] [address] Result Comment: <8 m IU/mL: No serological evidence of immunity to Hepatitis B Virus.>/= 8 to <12 mIU/mL: No serological evidence of immunity to Hepatitis B Virus.>/= 12 mIU/mL: Consistent with serological evidence of immunity to Hepatitis B Virus. Performed By: #### 5 195-3, 23804-1, AHAVG, 98506-3 ####[facility] LABCLIA [id number] [address] [place] HBV surface Ab Ser Qlon 02-15 HBV surface Ab Ql (S) Equivocal Normal [facility] Comment on above: Order Comment: Speci men Type: BLOOD SPECIMENOrdering Facility: [facility] Address: [address] [place] [address] Result Comment: No s erological evidence of immunity to Hepatitis B Virus. Performed By: #### 5 195-3, 99949-7, AHAVG, 81606-0 ####[facility] LABCLIA [id number] [place] [address] [place] HBV surface Ag Ser Qlon 02-15 HBV surface Ag Ql (S) Negative Normal Negative [facility] Comment on above: Order Comment: Speci men Type: BLOOD SPECIMENOrdering Facility: [facility] Address: [address] [place] [address] Performed By: #### 5 195-3, 28038-0, AHAVG, 96624-3 ####[facility] LABCLIA [id number] [place] [address] [place] HCV Ab Ser Qlon 03-02-2025 HCV Ab Ql (S) Negative Normal Negative [facility] Comment on above: Order Comment: Tenisha benoit Type: BLOOD SPECIMENOrdering Facility: [facility] Address: [address] [place] [address] Result Comment: The result suggests no evidence of infection with Hepatitis C virus. Should recent infection be suspected, repeat testing may be considered 4-6 weeks after this draw. Performed By: #### 1 6128-1 ####[facility] LABCLIA [id number] [place] [address] [place] HEPATITIS A ANTIBODY, IGGon 03-02-2025 HAV IgG Ql (S) Negative [facility] Comment on above: No serological evide nce of past exposure to hepatitis A virus or hepatitis A vaccination. Should recent infection be suspected, repeat testing is suggested 3-4 weeks after this draw. [facility] HAV IgG Ql (S) Negative Normal [facility] Comment on above: Order Comment: Tenisha benoit Type: BLOOD SPECIMENOrdering Facility: [facility] Address: [address] [place] [address] Result Comment: No s erological evidence of past exposure to hepatitis A virus or hepatitis A vaccination. Should recent infection be suspected, repeat testing is suggested 3-4 weeks after this draw. Performed By: #### 5 195-3, 82683-4, AHAVG, 18927-3 ####[facility] LABCLIA [id number] [place] [address] [place] Hepatic function 2000 panelo n 03-02-2025 Albumin [Mass/Vol] 3.7 g/dL Low 3.9-4.9 [facility] Comment on above: Order Comment: Tenisha benoit Type: BLOOD SPECIMENOrdering Facility: [facility] Address: [address] [place] [address] Performed By: #### 5 0190-8, 71976-5, 1825-9, 00054-7 ####[facility] LABCLIA [id number] [place] [address] [place] ALP [Catalytic activity/Vol] 119 U/L Normal 34-123 [facility] Comment on above: Order Comment: Speci men Type: BLOOD SPECIMENOrdering Facility: [facility] Address: [address] [place] [address] Performed By: #### 5 0190-8, 39209-4, 1825-07, ####[facility] LABCLIA [id number] [address] [address] [place] ALT [Catalytic activity/Vol] 28 U/L Normal 7-38 [facility] Comment on above: Order Comment: Speci men Type: BLOOD SPECIMENOrdering Facility: [facility] Address: [address] [place] [address] Performed By: #### 5 0190-8, 31904-6, 1825-07, ####[facility] LABCLIA [id number] [place] [address] [place] AST [Catalytic activity/Vol] 42 U/L High 13-35 [facility] Comment on above: Order Comment: Speci men Type: BLOOD SPECIMENOrdering Facility: [facility] Address: [address] [place] [address] Performed By: #### 5 0190-8, 61267-1, 1825-07, ####[facility] LABCLIA [id number] [address] [address] [place] Bilirubin.conjugate d [Mass/Vol] 0.1 mg/dL Normal <0.3 [facility] Comment on above: Order Comment: Speci men Type: BLOOD SPECIMENOrdering Facility: [facility] Address: [address] [place], [place] [address] Performed By: #### 5 0190-8, 08910-2, 1825-07, ####[facility] LABCLIA [id number] [address] [address] [place] Protein [Mass/Vol] 6.8 g/dL Normal 6.3-8.0 [facility] Comment on above: Order Comment: Speci men Type: BLOOD SPECIMENOrdering Facility: [facility] Address: [address] [place] [address] Performed By: #### 5 0190-8, 87882-2, 1825-07, 05749-7 ####[facility] LABCLIA [id number] [address] [address] [place] Iron and Iron binding capaci ty panelon 03-02-2025 Iron [Mass/Vol] 207 ug/dL High 41-186 [facility] Comment on above: Order Comment: Speci men Type: BLOOD SPECIMENOrdering Facility: [facility] Address: [address] [place] [address] Performed By: #### 5 0190-8, 10659-0, 1825-07, 05233-7 ####[facility] LABCLIA [id number] [place] [address] [place] Iron binding capacity [Mass/Vol] 385 ug/dL Normal 232-386 [facility] Comment on above: Order Comment: Speci men Type: BLOOD SPECIMENOrdering Facility: [facility] Address: [address] [place] [address] Performed By: #### 5 0190-8, 28676-3, 1825-07, 34517-1 ####[facility] LABCLIA [id number] [place] [id number] [place] Iron/TIBC [Molar ratio] 53.8 % Normal 15.0-57.0 [facility] Comment on above: Order Comment: Speci men Type: BLOOD SPECIMENOrdering Facility: [facility] Address: [address] [place] [address] Performed By: #### 5 0190-8, 45626-9, 1825-07, 50107-8 ####[facility] LABCLIA [id number] [place] [id number] [place] LIVER FIBROSIS AND ACTIVITYo n 03-02-2025 Ntajq-5-Qtcgxuyyxnw in [Mass/Vol] 276 mg/dL High 110-270 [facility] Comment on above: Order Comment: Speci men Type: BLOOD SPECIMENOrdering Facility: [facility] Address: [address] [place] [address] Performed By: #### L IVFIB ####[facility] LABCLIA [id number] [place] [address] [place] ALT [Catalytic activity/Vol] 29 U/L Normal 10-35 [facility] Comment on above: Order Comment: Speci men Type: BLOOD SPECIMENOrdering Facility: [facility] Address: [address] [place] [address] Performed By: #### L IVFIB ####[facility] LABCLIA [id number] [place] [address] [place] Apolipoprotein A-I [Mass/Vol] 109 mg/dL Low >124 [facility] Comment on above: Order Comment: Speci men Type: BLOOD SPECIMENOrdering Facility: [facility] Address: [address] [place] [address] Performed By: #### L IVFIB ####[facility] LABCLIA [id number] [place] [address] [place] Bilirubin [Mass/Vol] 0.3 mg/dL Normal 0.2-1.3 [facility] Comment on above: Order Comment: Speci men Type: BLOOD SPECIMENOrdering Facility: [facility] Address: [address] [place] [address] Performed By: #### L IVFIB ####[facility] LABCLIA [id number] [place] [id number] [place] Performed By: #### 5 0190-8, 04199-3, 1825-9, 02591-6 ####[facility] LABCLIA [id number] [place] [id number] [place] FIBROSIS INTERPRETATION Advanced Fibrosis Normal [facility] Comment on above: Order Comment: Speci men Type: BLOOD SPECIMENOrdering Facility: [facility] Address: [address] [place] [address] Result Comment: Fibr osis Interpretation Table:FibroTest Score: >=0 and <=0.21 - Metavir Score: F0 No FibrosisFibroTest Score: >0.21 and <=0.27 - Metavir Score: F0-F1 No FibrosisFibroTest Score: >0.27 and <=0.31 - Metavir Score: F1 Minimal FibrosisFibroTest Score: >0.31 and <=0.48 - Metavir Score: F1-F2 Minimal FibrosisFibroTest Score: >0.48 and <=0.58- Metavir Score: F2 Moderate FibrosisFibroTest Score: >0.58 and <=0.72 - Metavir Score: F3 Advanced FibrosisFibroTest Score: >0.72 and <=0.74 - Metavir Score: F3-F4 Advanced FibrosisFibroTest Score: >0.74 and <=1.00- Metavir Score: F4 Severe Fibrosis Performed By: #### L IVFIB ####[facility] LABCLIA [id number] [place] [address] [place] Fibrosis stage Ql F3 Normal [facility] Comment on above: Order Comment: Speci men Type: BLOOD SPECIMENOrdering Facility: [facility] Address: [address] [place] [address] Performed By: #### L IVFIB ####[facility] LABCLIA [id number] [place] [address] [place] Gamma glutamyl transferase [Catalytic activity/Vol] 117 U/L High 6-42 [facility] Comment on above: Order Comment: Speci men Type: BLOOD SPECIMENOrdering Facility: [facility] Address: [address] [place] [address] Performed By: #### L IVFIB ####[facility] LABCLIA [id number] [place] [address] [place] Haptoglobin [Mass/Vol] 94 mg/dL Normal 31-238 [facility] Comment on above: Order Comment: Speci men Type: BLOOD SPECIMENOrdering Facility: [facility] Address: [address] [place] [address] Performed By: #### L IVFIB ####[facility] LABCLIA [id number] [address] [place] NECROINFLAM ACTIVITY INTERP No Activity Normal [facility] Comment on above: Order Comment: Speci men Type: BLOOD SPECIMENOrdering Facility: [facility] Address: [address] [place] [address] Result Comment: Necr oinflammatory Activity Interpretation Table:ActiTest Score: >=0 and <=0.17 - Metavir Score: A0 No activityActiTest Score: >0.17 and <=0.29 - Metavir Score: A0-A1 No activityActiTest Score: >0.29 and <=0.36 - Metavir Score: A1 Minimal activityActiTest Score: >0.36 and <=0.52 - Metavir Score: A1-A2 Minimal activityActiTest Score: >0.52 and <=0.60 - Metavir Score: A2 Significant activityActiTest Score: >0.60 and <=0.62 - Metavir Score: A2-A3 Significant activityActiTest Score: >0.62 and <=1.00 - Metavir Score: A3 Severe activity Performed By: #### L IVFIB ####[facility] LABIA [id number] [address] [place] Necroinflammatory activity grade Ql A0-A1 Normal [facility] Comment on above: Order Comment: Speci men Type: BLOOD SPECIMENOrdering Facility: [facility] Address: [address] [place] [address] Performed By: #### L IVFIB ####[facility] LABCLIA [id number] [place] [address] [place] Mitochondria Ab IF Ql (S)on 03-02-2025 Mitochondria M2 Ab IA Qn (S) 2.2 Units Normal <=20.0 [facility] Comment on above: Order Comment: Speci men Type: BLOOD SPECIMENOrdering Facility: [facility] Address: [address] [place] [address] Performed By: #### 1 7284-1, 69795-0 ####[facility] LABIA [id number] [place] [address] [place] Mitochondria M2 Ab Ql (S) Negative Normal Negative [facility] Comment on above: Order Comment: Speci men Type: BLOOD SPECIMENOrdering Facility: [facility] Address: [address] [place] [address] Result Comment: Anti -mitochondrial antibody test is used as an aid in diagnosis of primary biliary cholangitis. Clinical correlation is required. Performed By: #### 1 7284-1, 42541-9 ####[facility] LABIA [id number] [place] [address] [place] Nuclear Ab IA Ql (S)on 03-02 AYESHA SCR QUAL Positive Abnormal Negative [facility] Comment on above: Order Comment: Speci men Type: BLOOD SPECIMENOrdering Facility: [facility] Address: [address] [place] [address] Result Comment: The qualitative antinuclear antibody screen test performed using the following antigens: dsDNA, Chromatin, Ribosomal P, SS-A 60, SS-A 52, SS-B, Sm, SmRNP, PANTS PRESSER AUTOMATIC A, PANTS PRESSER AUTOMATIC 68, Scl-70, Mirna-1, and Centromere B. Methodology: Multiplex flow immunoassay. Performed By: #### 4 7383-5 ####[facility] [id number] [place] [id number] [place] PT panel Coag (PPP)on 2024 INR Coag (PPP) [Relative time] 1.1 {INR} 0.9 - 1.3 [facility] Comment on above: Vitamin K Antagonist (VKA) Therapeutic Range: INR 2 to 3 (Target INR of 2.5) Note: For patients treated with VKA drugs, such as warfarin, the [place] 2012 Guideline recommends a therapeutic INR range of 2 to 3 (target INR of 2.5). This recommendation includes high-risk patients with antiphospholipid syndrome with previous arterial or venous thromboembolism, current-generation mechanical or bioprosthetic aortic heart valve replacement. Note: Patients with mechanical aortic valve replacement and additional risk factors for thromboembolic events (atrial fibrillation, previous thromboembolism, LV dysfunction, hypercoagulable conditions) or an older generation mechanical AVR (i.e., ball in-Cage) or any mechanical MVR should have a INR therapeutic range of 2.5 to 3.5 (target INR of 3). silvia Echeverria. Chest 2012, 141:7S-47S Vinicio AVILES et al. [facility] 2017, 70: 252-289 Interpretation and review of laboratory results Normal [facility] PT Coag (PPP) [Time] 12 s [facility] INR Coag (PPP) [Relative time] 1.1 {INR} Normal 0.9-1.3 [facility] Comment on above: Order Comment: Speci men Type: BLOOD SPECIMENOrdering Facility: [facility] Address: [address] [place] [address] Result Comment: Jagruti min K Antagonist (VKA) Therapeutic Range: INR 2 to 3 (Target INR of 2.5)Note: For patients treated with VKA drugs, such as warfarin, the [place] 2012 Guideline recommends a therapeutic INR range of 2 to 3 (target INR of 2.5). This recommendation includes high-risk patients with antiphospholipid syndrome with previous arterial or venous thromboembolism, current-generation mechanical or bioprosthetic aortic heart valve replacement.Note: Patients with mechanical aortic valve replacement and additional risk factors for thromboembolic events (atrial fibrillation, previous thromboembolism, LV dysfunction, hypercoagulable conditions) or an older generation mechanical AVR (i.e., ball in-Cage) or any mechanical MVR should have a INR therapeutic range of 2.5 to 3.5 (target INR of 3).silvia Echeverria. Chest 2012, 141:7S-47SVinicio AVILES et al. [facility] 2017, 70: 252-289 Performed By: #### 3 4528-0 ####[facility] LABCLIA [id number] [address], [place] [address] [place] PT Coag (PPP) [Time] 12.0 s Normal 9.7-13.0 [facility] Comment on above: Order Comment: Speci men Type: BLOOD SPECIMENOrdering Facility: [facility] Address: [address] [place] [address] Performed By: #### 3 4528-0 ####[facility] LABCLIA [id number] [address], [place] [address] [place] Smooth muscle Ab Ql (S)on ACTIN SMOOTH MUSCLE IGG QUALITATIVE Negative Normal Negative [facility] Comment on above: Order Comment: Speci men Type: BLOOD SPECIMENOrdering Facility: [facility] Address: [address] [place] [address] Performed By: #### 1 7284-1, 32246-4 ####[facility] LABCLIA [id number] [place] [address] [place] ACTIN SMOOTH MUSCLE IGG QUANTITATIVE 5 Units Normal <20 [facility] Comment on above: Order Comment: Speci men Type: BLOOD SPECIMENOrdering Facility: [facility] Address: [address] [place] [address] Performed By: #### 1 7284-1, 40707-3 ####[facility] LABCLIA [id number] [address], [place] [address] [place] Hemoccult Stl Ql IAon 2024 Lower GI hemoglobin IA Ql (Stl) Positive Abnormal Negative [facility] Comment on above: Order Comment: Speci men Type: STOOL SPECIMENOrdering Facility: [facility] Address: [address] [place] [address] Performed By: #### 2 9771-3 ####[facility] LABCLIA [id number] [place] [address] [place] CNPNon 02-24-2025 CNPN Normal [facility] CNPNon 02-07-2025 CNPN Normal [facility] Bacteria Ur Culton Bacteria identified Cx Nom (U) ORGANISM ID: 1 50,000-<100,000 CFU/ml Normal urogenital dayan Normal [facility] Comment on above: Performed By: #### 6 30-4 ####[facility] LABCLIA [id number] [place] [address] [place] CNOVon 02-01-2025 CNOV Normal [facility] No Panel Informationon 02-01 Interpretation and review of laboratory results Normal [facility] T4 FREE/FREE THYROXINEon Free T4 [Mass/Vol] 1.2 ng/dL 0.9 - 1.7 ng/dL [facility] T4 Free SerPl-mCncon 025 Free T4 [Mass/Vol] 1.2 ng/dL Normal 0.9-1.7 [facility] Comment on above: Order Comment: Speci men Type: BLOOD SPECIMENOrdering Facility: [facility] Address: [address] [place] [address] Performed By: #### 3 016-3, 3024-7 ####[facility] LABCLIA [id number] [place] [id number] [place] THYROID STIMULATING HORMONEo n 02-01-2025 TSH Qn 1.54 m[IU]/L [facility] TSH SerPl-aCncon 02-01-2025 TSH Qn 1.540 m[IU]/L Normal 0.270-4.20 0 [facility] Comment on above: Order Comment: Speci men Type: BLOOD SPECIMENOrdering Facility: [facility] Address: [address] [place], [place] [address] Performed By: #### 3 016-3, 3024-7 ####[facility] LABCLIA [id number] [address] [address] [place] UA DIP, URINE (POC)on 2024 BILIRUBIN UA (POCT) Negative Negative [facility] CLARITY UA (POCT) Clear [facility] COLOR UA (POCT) Yellow [facility] GLUCOSE UA (POCT) Negative Negative mg/dL [facility] Hemoglobin Ql (U) Negative Negative [facility] Interpretation and review of laboratory results Abnormal [facility] KETONE UA (POCT) Negative Negative mg/dL [facility] LEUKOCYTES UA (POCT) Negative Negative [facility] NITRITE UA (POCT) Negative Negative [facility] PH UA (POCT) 6 4.5 - 8.0 [facility] Protein Ql (U) 30 mg/dL Abnormal Negative [facility] SPECIFIC GRAVITY UA (POCT) 1.025 1.005 - 1.030 [facility] UROBILINOGEN UA (POCT) 0.2 Normal E.U./dL [facility] Location:[address], [place], [place], [id number] [place] [address] POINT OF CARE [facility] CBC W Auto Differential pane l (Bld)on 01-06-2025 Basophils (Bld) [#/Vol] 0.03 10*3/uL Normal <0.11 [facility] Comment on above: Order Comment: Speci men Type: BLOOD SPECIMENOrdering Facility: [facility] Address: [address] [place] [address] Performed By: #### 5 7021-8 ####[facility] LABCLIA [id number] [place] [address] [place] Basophils/100 WBC (Bld) 0.5 % Normal [facility] Comment on above: Order Comment: Speci men Type: BLOOD SPECIMENOrdering Facility: [facility] Address: [address] [place] [address] Performed By: #### 5 7021-8 ####[facility] LABCLIA [id number] [place] [address] [place] Differential cell count method Nom (Bld) Auto Normal [facility] Comment on above: Order Comment: Speci men Type: BLOOD SPECIMENOrdering Facility: [facility] Address: [address] [place] [address] Performed By: #### 5 7021-8 ####[facility] LABCLIA [id number] [place] [address] [place] Eosinophils (Bld) [#/Vol] 0.12 10*3/uL Normal <0.46 [facility] Comment on above: Order Comment: Speci men Type: BLOOD SPECIMENOrdering Facility: [facility] Address: [address] [place] [address] Performed By: #### 5 7021-8 ####[facility] LABCLIA [id number] [place] [address] [place] Eosinophils/100 WBC (Bld) 1.9 % Normal [facility] Comment on above: Order Comment: Speci men Type: BLOOD SPECIMENOrdering Facility: [facility] Address: [address] [place] [address] Performed By: #### 5 7021-8 ####[facility] LABIA [id number] [place] [address] [place] Erythrocyte distribution width (RBC) [Ratio] 15.8 % High 11.5-15.0 [facility] Comment on above: Order Comment: Speci men Type: BLOOD SPECIMENOrdering Facility: [facility] Address: [address] [place] [address] Performed By: #### 5 7021-8 ####[facility] LABCLIA [id number] [place] [address] [place] Hematocrit (Bld) [Volume fraction] 30.4 % Low 36.0-46.0 [facility] Comment on above: Order Comment: Speci men Type: BLOOD SPECIMENOrdering Facility: [facility] Address: [address] [place] [address] Performed By: #### 5 7021-8 ####[facility] LABCLIA [id number] [place] [address] [place] Hemoglobin (Bld) [Mass/Vol] 8.9 g/dL Low 11.5-15.5 [facility] Comment on above: Order Comment: Speci men Type: BLOOD SPECIMENOrdering Facility: [facility] Address: [address] [place] [address] Performed By: #### 5 7021-8 ####[facility] LABCLIA [id number] [place] [address] [place] Immature granulocytes (Bld) [#/Vol] 0.03 10*3/uL Normal <0.10 [facility] Comment on above: Order Comment: Speci men Type: BLOOD SPECIMENOrdering Facility: [facility] Address: [address] [place] [address] Performed By: #### 5 7021-8 ####[facility] LABCLIA [id number] [place] [address] [place] Immature granulocytes/100 WBC (Bld) 0.5 % Normal [facility] Comment on above: Order Comment: Speci men Type: BLOOD SPECIMENOrdering Facility: [facility] Address: [address] [place] [address] Performed By: #### 5 7021-8 ####[facility] LABCLIA [id number] [place] [address] [place] Lymphocytes (Bld) [#/Vol] 1.87 10*3/uL Normal 1.00-4.00 [facility] Comment on above: Order Comment: Speci men Type: BLOOD SPECIMENOrdering Facility: [facility] Address: [address] [place] [address] Performed By: #### 5 7021-8 ####[facility] LABCLIA [id number] [place] [address] [place] Lymphocytes/100 WBC (Bld) 28.9 % Normal [facility] Comment on above: Order Comment: Speci men Type: BLOOD SPECIMENOrdering Facility: [facility] Address: [address] [place] [address] Performed By: #### 5 7021-8 ####[facility] LABIA [id number] [place] [address] [place] MCH (RBC) [Entitic mass] 24.1 pg Low 26.0-34.0 [facility] Comment on above: Order Comment: Speci men Type: BLOOD SPECIMENOrdering Facility: [facility] Address: [address] [place] [address] Performed By: #### 5 7021-8 ####[facility] LABIA [id number] [place] [address] [place] MCHC (RBC) [Mass/Vol] 29.3 g/dL Low 30.5-36.0 [facility] Comment on above: Order Comment: Speci men Type: BLOOD SPECIMENOrdering Facility: [facility] Address: [address] [place] [address] Performed By: #### 5 7021-8 ####[facility] [id number] [place] [address] [place] MCV (RBC) [Entitic vol] 82.2 fL Normal 80.0-100.0 [facility] Comment on above: Order Comment: Speci men Type: BLOOD SPECIMENOrdering Facility: [facility] Address: [address] [place] [address] Performed By: #### 5 7021-8 ####[facility] [id number] [place] [address] [place] Monocytes (Bld) [#/Vol] 0.44 10*3/uL Normal <0.87 [facility] Comment on above: Order Comment: Speci men Type: BLOOD SPECIMENOrdering Facility: [facility] Address: [address] [place] [address] Performed By: #### 5 7021-8 ####[facility] [id number] [place] [address] [place] Monocytes/100 WBC (Bld) 6.8 % Normal [facility] Comment on above: Order Comment: Speci men Type: BLOOD SPECIMENOrdering Facility: [facility] Address: [address] [place] [address] Performed By: #### 5 7021-8 ####[facility] LABCLIA [id number] [address] [address] [place] Neutrophils (Bld) [#/Vol] 3.97 10*3/uL Normal 1.45-7.50 [facility] Comment on above: Order Comment: Speci men Type: BLOOD SPECIMENOrdering Facility: [facility] Address: [address] [place] [address] Performed By: #### 5 7021-8 ####[facility] LABCLIA [id number] [place] [address] [place] Neutrophils/100 WBC (Bld) 61.4 % Normal [facility] Comment on above: Order Comment: Speci men Type: BLOOD SPECIMENOrdering Facility: [facility] Address: [address] [place] [address] Performed By: #### 5 7021-8 ####[facility] LABCLIA [id number] [place] [address] [place] Nucleated RBC (Bld) [#/Vol] 10*3/uL Normal <0.01 [facility] Comment on above: Order Comment: Speci men Type: BLOOD SPECIMENOrdering Facility: [facility] Address: [address] [place] [address] Performed By: #### 5 7021-8 ####[facility] LABCLIA [id number] [place] [address] [place] Nucleated RBC/100 WBC (Bld) [Ratio] 0.0 /100 WBC Normal [facility] Comment on above: Order Comment: Speci men Type: BLOOD SPECIMENOrdering Facility: [facility] Address: [address] [place] [address] Performed By: #### 5 7021-8 ####[facility] LABCLIA [id number] [address] [address] [place] Platelet mean volume (Bld) [Entitic vol] 12.9 fL High 9.0-12.7 [facility] Comment on above: Order Comment: Speci men Type: BLOOD SPECIMENOrdering Facility: [facility] Address: [address] [place] [address] Performed By: #### 5 7021-8 ####[facility] LABCLIA [id number] [place] [address] [place] Platelets (Bld) [#/Vol] 125 10*3/uL Low 150-400 [facility] Comment on above: Order Comment: Speci men Type: BLOOD SPECIMENOrdering Facility: [facility] Address: [address] [place] [address] Performed By: #### 5 7021-8 ####[facility] LABIA [id number] [place] [address] [place] RBC (Bld) [#/Vol] 3.70 10*6/uL Low 3.90-5.20 [facility] Comment on above: Order Comment: Speci men Type: BLOOD SPECIMENOrdering Facility: [facility] Address: [address] [place] [address] Performed By: #### 5 7021-8 ####[facility] LABIA [id number] [place] [id number] [place] WBC (Bld) [#/Vol] 6.46 10*3/uL Normal 3.70-11.00 [facility] Comment on above: Order Comment: Speci men Type: BLOOD SPECIMENOrdering Facility: [facility] Address: [address] [place] [address] Performed By: #### 5 7021-8 ####[facility] LABIA [id number] [place] [address] [place] CNOVon 01-06-2025 CNOV Normal [facility] HbA1c (Bld)on 01-06-2025 Average glucose Estimated from glycated hemoglobin (Bld) [Mass/Vol] 232 mg/dL Normal [facility] Comment on above: Order Comment: Tenisha benoit Type: BLOOD SPECIMENOrdering Facility: [facility] Address: [address] [place] [address] Result Comment: eAG: (Estimated average glucose) is a calculated value from HgbA1c and is bilingual inside sales representative of the average blood glucose level in the last 2-3 month period. Performed By: #### 5 5454-3 ####[facility] LABCLIA [id number] [address] [place] OF [facility] HbA1c (Bld) [Mass fraction] 9.7 % High 4.3-5.6 [facility] Comment on above: Order Comment: Tenisha benoit Type: BLOOD SPECIMENOrdering Facility: [facility] Address: [address] [place] [address] Result Comment: Amer [place] Diabetes Association guidelines indicate that patients with HgbA1c in the range 5.7-6.4% are at increased risk for development of diabetes, and intervention by lifestyle modification may be beneficial. HgbA1c greater or equal to 6.5% is considered diagnostic of diabetes. Performed By: #### 5 5454-3 ####[facility] LABIA [id number] [place] [address] [place] Iron and Iron binding capaci ty panelon 01-06-2025 Iron [Mass/Vol] 40 ug/dL Low 41-186 [facility] Comment on above: Order Comment: Tenisha benoit Type: BLOOD SPECIMENOrdering Facility: [facility] Address: [address] [place] [address] Performed By: #### 5 0190-8 ####[facility] LABCLIA [id number] [place] [address] [place] Iron binding capacity [Mass/Vol] 495 ug/dL High 232-386 [facility] Comment on above: Order Comment: Speci men Type: BLOOD SPECIMENOrdering Facility: [facility] Address: [address] [place] [address] Performed By: #### 5 0190-8 ####[facility] LABIA [id number] [place] [address] [place] Iron/TIBC [Molar ratio] 8.1 % Low 15.0-57.0 [facility] Comment on above: Order Comment: Speci men Type: BLOOD SPECIMENOrdering Facility: [facility] Address: [address] [place] [address] Performed By: #### 5 0190-8 ####[facility] LABCLIA [id number] [place] [address] [place] CNOVon 12-02-2024 CNOV Normal [facility] CNPNon 12-01-2024 CNPN Normal [facility] US ABD RIGHT UPPER QUADRANTo n 11-26-2024 US ABD RIGHT UPPER QUADRANT Normal [facility] US ABD SPLEEN -NBon 11-26-19 US ABD SPLEEN -NB Normal [facility] CNOVon 11-22-2024 CNOV Normal [facility] CNPNon 11-22-2024 CNPN Normal [facility] CNPNon 11-05-2024 CNPN Normal [facility] CBC W Auto Differential pane l (Bld)on 11-03-2024 Basophils (Bld) [#/Vol] NINF [facility] Basophils/100 WBC (Bld) 0.1 % [facility] Differential cell count method Nom (Bld) Auto [facility] Eosinophils (Bld) [#/Vol] NINF [facility] Eosinophils/100 WBC (Bld) 0.0 % [facility] Erythrocyte distribution width (RBC) [Ratio] 13.8 % 11.5 - 15.0 % [facility] Hematocrit (Bld) [Volume fraction] 29.5 % Low 36.0 - 46.0 % [facility] Hemoglobin (Bld) [Mass/Vol] 8.9 g/dL Low 11.5 - 15.5 g/dL [facility] Immature granulocytes (Bld) [#/Vol] 0.04 10*3/uL NINF [facility] Immature granulocytes/100 WBC (Bld) 0.5 % [facility] Interpretation and review of laboratory results Abnormal [facility] Lymphocytes (Bld) [#/Vol] 0.80 10*3/uL Low [facility] Lymphocytes/100 WBC (Bld) 10.9 % [facility] MCH (RBC) [Entitic mass] 26.2 pg 26.0 - 34.0 pg [facility] MCHC (RBC) [Mass/Vol] 30.2 g/dL Low 30.5 - 36.0 g/dL [facility] MCV (RBC) [Entitic vol] 86.8 fL 80.0 - 100.0 fL [facility] Monocytes (Bld) [#/Vol] 0.15 10*3/uL [facility] Monocytes/100 WBC (Bld) 2.0 % [facility] Neutrophils (Bld) [#/Vol] 6.37 10*3/uL [facility] Neutrophils/100 WBC (Bld) 86.5 % [facility] Nucleated RBC (Bld) [#/Vol] [facility] Nucleated RBC/100 WBC (Bld) [Ratio] 0.0 % /100 WBC [facility] Platelet mean volume (Bld) [Entitic vol] 13.0 fL High 9.0 - 12.7 fL [facility] Platelets (Bld) [#/Vol] 132 10*3/uL Low [facility] RBC (Bld) [#/Vol] 3.40 10*6/uL Low 3.90 - 5.20 m/uL [facility] WBC (Bld) [#/Vol] 7.37 10*3/uL [facility] Basophils (Bld) [#/Vol] 10*3/uL Normal <0.11 [facility] Comment on above: Order Comment: Speci men Type: BLOOD SPECIMENOrdering Facility: [facility] Address: [address] [place] [address] Performed By: #### 5 7021-8 ####[facility] LABCLIA [id number] [address] [id number], [place] [address] [place] Basophils/100 WBC (Bld) 0.1 % Normal [facility] Comment on above: Order Comment: Speci men Type: BLOOD SPECIMENOrdering Facility: [facility] Address: [address] [place] [address] Performed By: #### 5 7021-8 ####[facility] LABCLIA [id number] [place] [address] [place] Differential cell count method Nom (Bld) Auto Normal [facility] Comment on above: Order Comment: Speci men Type: BLOOD SPECIMENOrdering Facility: [facility] Address: [address] [place] [address] Performed By: #### 5 7021-8 ####[facility] LABCLIA [id number] [place] [address] [place] Eosinophils (Bld) [#/Vol] 10*3/uL Normal <0.46 [facility] Comment on above: Order Comment: Speci men Type: BLOOD SPECIMENOrdering Facility: [facility] Address: [address] [place] [address] Performed By: #### 5 7021-8 ####[facility] LABCLIA [id number] [place] [address] [place] Eosinophils/100 WBC (Bld) 0.0 % Normal [facility] Comment on above: Order Comment: Speci men Type: BLOOD SPECIMENOrdering Facility: [facility] Address: [address] [place] [address] Performed By: #### 5 7021-8 ####[facility] LABCLIA [id number] [place] [address] [place] Erythrocyte distribution width (RBC) [Ratio] 13.8 % Normal 11.5-15.0 [facility] Comment on above: Order Comment: Speci men Type: BLOOD SPECIMENOrdering Facility: [facility] Address: [address] [place] [address] Performed By: #### 5 7021-8 ####[facility] LABIA [id number] [place] [address] [place] Hematocrit (Bld) [Volume fraction] 29.5 % Low 36.0-46.0 [facility] Comment on above: Order Comment: Speci men Type: BLOOD SPECIMENOrdering Facility: [facility] Address: [address] [place] [address] Performed By: #### 5 7021-8 ####[facility] LABIA [id number] [place] [address] [place] Hemoglobin (Bld) [Mass/Vol] 8.9 g/dL Low 11.5-15.5 [facility] Comment on above: Order Comment: Speci men Type: BLOOD SPECIMENOrdering Facility: [facility] Address: [address] [place] [address] Performed By: #### 5 7021-8 ####[facility] LABIA [id number] [place] [address] [place] Immature granulocytes (Bld) [#/Vol] 0.04 10*3/uL Normal <0.10 [facility] Comment on above: Order Comment: Speci men Type: BLOOD SPECIMENOrdering Facility: [facility] Address: [address] [place] [address] Performed By: #### 5 7021-8 ####[facility] LABIA [id number] [place] [address] [place] Immature granulocytes/100 WBC (Bld) 0.5 % Normal [facility] Comment on above: Order Comment: Speci men Type: BLOOD SPECIMENOrdering Facility: [facility] Address: [address] [place] [address] Performed By: #### 5 7021-8 ####[facility] LABIA [id number] [place] [address] [place] Lymphocytes (Bld) [#/Vol] 0.80 10*3/uL Low 1.00-4.00 [facility] Comment on above: Order Comment: Speci men Type: BLOOD SPECIMENOrdering Facility: [facility] Address: [address] [place] [address] Performed By: #### 5 7021-8 ####[facility] LABIA [id number] [place] [address] [place] Lymphocytes/100 WBC (Bld) 10.9 % Normal [facility] Comment on above: Order Comment: Speci men Type: BLOOD SPECIMENOrdering Facility: [facility] Address: [address] [place] [address] Performed By: #### 5 7021-8 ####[facility] [id number] [place] [address] [place] MCH (RBC) [Entitic mass] 26.2 pg Normal 26.0-34.0 [facility] Comment on above: Order Comment: Speci men Type: BLOOD SPECIMENOrdering Facility: [facility] Address: [address] [place] [address] Performed By: #### 5 7021-8 ####[facility] LABIA [id number] [place] [address] [place] MCHC (RBC) [Mass/Vol] 30.2 g/dL Low 30.5-36.0 [facility] Comment on above: Order Comment: Speci men Type: BLOOD SPECIMENOrdering Facility: [facility] Address: [address] [place] [address] Performed By: #### 5 7021-8 ####[facility] LABIA [id number] [place] [address] [place] MCV (RBC) [Entitic vol] 86.8 fL Normal 80.0-100.0 [facility] Comment on above: Order Comment: Speci men Type: BLOOD SPECIMENOrdering Facility: [facility] Address: [address] [place] [address] Performed By: #### 5 7021-8 ####[facility] LABCLIA [id number] [place] [address] [place] Monocytes (Bld) [#/Vol] 0.15 10*3/uL Normal <0.87 [facility] Comment on above: Order Comment: Speci men Type: BLOOD SPECIMENOrdering Facility: [facility] Address: [address] [place] [address] Performed By: #### 5 7021-8 ####[facility] LABCLIA [id number] [place] [address] [place] Monocytes/100 WBC (Bld) 2.0 % Normal [facility] Comment on above: Order Comment: Speci men Type: BLOOD SPECIMENOrdering Facility: [facility] Address: [address] [place] [address] Performed By: #### 5 7021-8 ####[facility] LABCLIA [id number] [place] [address] [place] Neutrophils (Bld) [#/Vol] 6.37 10*3/uL Normal 1.45-7.50 [facility] Comment on above: Order Comment: Speci men Type: BLOOD SPECIMENOrdering Facility: [facility] Address: [address] [place] [address] Performed By: #### 5 7021-8 ####[facility] LABCLIA [id number] [place] [address] [place] Neutrophils/100 WBC (Bld) 86.5 % Normal [facility] Comment on above: Order Comment: Speci men Type: BLOOD SPECIMENOrdering Facility: [facility] Address: [address] [place] [address] Performed By: #### 5 7021-8 ####[facility] LABCLIA [id number] [address] [id number] [address] [place] Nucleated RBC (Bld) [#/Vol] 10*3/uL Normal <0.01 [facility] Comment on above: Order Comment: Speci men Type: BLOOD SPECIMENOrdering Facility: [facility] Address: [address] [place] [address] Performed By: #### 5 7021-8 ####[facility] LABCLIA [id number] [place] [address] [place] Nucleated RBC/100 WBC (Bld) [Ratio] 0.0 /100 WBC Normal [facility] Comment on above: Order Comment: Speci men Type: BLOOD SPECIMENOrdering Facility: [facility] Address: [address] [place] [address] Performed By: #### 5 7021-8 ####[facility] LABCLIA [id number] [place] [address] [place] Platelet mean volume (Bld) [Entitic vol] 13.0 fL High 9.0-12.7 [facility] Comment on above: Order Comment: Speci men Type: BLOOD SPECIMENOrdering Facility: [facility] Address: [address] [place] [address] Performed By: #### 5 7021-8 ####[facility] LABIA [id number] [place] [address] [place] Platelets (Bld) [#/Vol] 132 10*3/uL Low 150-400 [facility] Comment on above: Order Comment: Speci men Type: BLOOD SPECIMENOrdering Facility: [facility] Address: [address] [place] [address] Performed By: #### 5 7021-8 ####[facility] LABCLIA [id number] [place] [address] [place] RBC (Bld) [#/Vol] 3.40 10*6/uL Low 3.90-5.20 [facility] Comment on above: Order Comment: Speci men Type: BLOOD SPECIMENOrdering Facility: [facility] Address: [address] [place] [address] Performed By: #### 5 7021-8 ####[facility] LABCLIA [id number] [place] [address] [place] WBC (Bld) [#/Vol] 7.37 10*3/uL Normal 3.70-11.00 [facility] Comment on above: Order Comment: Speci men Type: BLOOD SPECIMENOrdering Facility: [facility] Address: [address] [place] [address] Performed By: #### 5 7021-8 ####[facility] LABCLIA [id number] [place] [address] [place] CNOVon 11-03-2024 CNOV Normal [facility] CT ABD/PEL W IVCONon 024 CT ABD/PEL W IVCON Normal [facility] Comprehensive metabolic 2000 panelon 11-03-2024 Albumin [Mass/Vol] 4.0 g/dL Normal 3.9-4.9 [facility] Comment on above: Order Comment: Speci men Type: BLOOD SPECIMENOrdering Facility: [facility] Address: [address] [place] [address] Performed By: #### 2 4323-8 ####[facility] LABCLIA [id number] [place] [address] [place] ALP [Catalytic activity/Vol] 162 U/L High 34-123 [facility] Comment on above: Order Comment: Speci men Type: BLOOD SPECIMENOrdering Facility: [facility] Address: [address] [place] [address] Performed By: #### 2 4323-8 ####[facility] LABCLIA [id number] [place] [address] [place] ALT [Catalytic activity/Vol] 26 U/L Normal 7-38 [facility] Comment on above: Order Comment: Speci men Type: BLOOD SPECIMENOrdering Facility: [facility] Address: [address] [id number] Performed By: #### 2 4323-8 ####[facility] LABCLIA [id number] [place] [address] [place] Anion gap [Moles/Vol] 14 mmol/L Normal 8-15 [facility] Comment on above: Order Comment: Speci men Type: BLOOD SPECIMENOrdering Facility: [facility] Address: [address] [place] [address] Performed By: #### 2 4323-8 ####[facility] LABCLIA [id number] [place] [address] [place] AST [Catalytic activity/Vol] 30 U/L Normal 13-35 [facility] Comment on above: Order Comment: Speci men Type: BLOOD SPECIMENOrdering Facility: [facility] Address: [address] [place] [address] Performed By: #### 2 4323-8 ####[facility] LABCLIA [id number] [place] [address] [place] Bilirubin [Mass/Vol] 0.3 mg/dL Normal 0.2-1.3 [facility] Comment on above: Order Comment: Speci men Type: BLOOD SPECIMENOrdering Facility: [facility] Address: [address] [place], [place] [address] Performed By: #### 2 4323-8 ####[facility] LABCLIA [id number] [place] [address] [place] Calcium [Mass/Vol] 9.8 mg/dL Normal 8.5-10.2 [facility] Comment on above: Order Comment: Speci men Type: BLOOD SPECIMENOrdering Facility: [facility] Address: [address] [place], [place] [address] Performed By: #### 2 4323-8 ####[facility] LABCLIA [id number] [place] [address] [place] Chloride [Moles/Vol] 99 mmol/L Normal 98-107 [facility] Comment on above: Order Comment: Speci men Type: BLOOD SPECIMENOrdering Facility: [facility] Address: [address] [place] [address] Performed By: #### 2 4323-8 ####[facility] LABCLIA [id number] [place] [address] [place] CO2 [Moles/Vol] 21 mmol/L Low 22-30 [facility] Comment on above: Order Comment: Speci men Type: BLOOD SPECIMENOrdering Facility: [facility] Address: [address] [place] [address] Performed By: #### 2 4323-8 ####[facility] LABCLIA [id number] [place] [address] [place] Creatinine [Mass/Vol] 1.19 mg/dL High 0.58-0.96 [facility] Comment on above: Order Comment: Speci men Type: BLOOD SPECIMENOrdering Facility: [facility] Address: [address] [place] [address] Performed By: #### 2 4323-8 ####[facility] LABCLIA [id number] [address] [place] Creatinine and Glomerular filtration rate.predicted panel (S/P/Bld) 49 mL/min/1.73m??? Low >=60 [facility] Comment on above: Order Comment: Speci men Type: BLOOD SPECIMENOrdering Facility: [facility] Address: [address] [place] [address] Result Comment: Lorna mated Glomerular Filtration Rate (eGFR) is calculated using the 2020 CKD-EPI creatinine equation. This equation utilizes serum creatinine, sex, and age as parameters. The creatinine assay has traceable calibration to isotope dilution-mass spectrometry. Refer to KDIGO guidelines for clinical interpretation. In patients with unstable renal function, e.g. those with acute kidney injury, the eGFR may not accurately reflect actual GFR. Performed By: #### 2 4323-8 ####[facility] LABIA [id number] [place] [address] [place] Glucose [Mass/Vol] 404 mg/dL High 74-99 [facility] Comment on above: Order Comment: Speci men Type: BLOOD SPECIMENOrdering Facility: [facility] Address: [address] [place] [address] Result Comment: The [place] Diabetes Association (ADA) provides guidance for cutoff values for fasting glucose and random glucose. The ADA defines fasting as no caloric intake for at least 8 hours. Fasting plasma glucose results between 100 to 125 mg/dL indicate increased risk for diabetes (prediabetes).Fasting plasma glucose results greater than or equal to 126 mg/dL meet the criteria for diagnosis of diabetes. In the absence of unequivocal hyperglycemia, results should be confirmed by repeat testing. In a patient with classic symptoms of hyperglycemia or hyperglycemic crisis, random plasma glucose results greater than or equal to 200 mg/dL meet the criteria for diagnosis of diabetes.Reference: Standards of Medical Care in Diabetes 2016, [place] Diabetes Association. Diabetes Care. 2016.39(Suppl 1). Performed By: #### 2 4323-8 ####[facility] LABIA [id number] [place] [address] [place] Potassium [Moles/Vol] 5.1 mmol/L Normal 3.7-5.1 [facility] Comment on above: Order Comment: Speci men Type: BLOOD SPECIMENOrdering Facility: [facility] Address: [address] [place] [address] Performed By: #### 2 4323-8 ####[facility] [id number] [place] [address] [place] Protein [Mass/Vol] 7.0 g/dL Normal 6.3-8.0 [facility] Comment on above: Order Comment: Speci men Type: BLOOD SPECIMENOrdering Facility: [facility] Address: [address] [place] [address] Performed By: #### 2 4323-8 ####[facility] LABCLIA [id number] [place] [address] [place] Sodium [Moles/Vol] 134 mmol/L Low 136-144 [facility] Comment on above: Order Comment: Speci men Type: BLOOD SPECIMENOrdering Facility: [facility] Address: [address] [place] [address] Performed By: #### 2 4323-8 ####[facility] LABIA [id number] [place] [address] [place] Urea nitrogen [Mass/Vol] 24 mg/dL High 7-21 [facility] Comment on above: Order Comment: Speci men Type: BLOOD SPECIMENOrdering Facility: [facility] Address: [address] [place] [address] Performed By: #### 2 4323-8 ####[facility] LABIA [id number] [place] [address] [place] CNPNon 10-19-2024 CNPN Normal [facility] CREATININE BLDon 10-18-2024 Creatinine [Mass/Vol] 1.02 mg/dL High 0.58-0.96 [facility] Comment on above: Order Comment: Speci men Type: BLOOD SPECIMENOrdering Facility: [facility] Address: [address] [place] [address] Performed By: #### C RET1 ####[facility] [id number] [place] [address] [place] Creatinine and Glomerular filtration rate.predicted panel (S/P/Bld) 59 mL/min/1.73m??? Low >=60 [facility] Comment on above: Order Comment: Speci men Type: BLOOD SPECIMENOrdering Facility: [facility] Address: [address] [place] [address] Result Comment: Lorna mated Glomerular Filtration Rate (eGFR) is calculated using the 2020 CKD-EPI creatinine equation. This equation utilizes serum creatinine, sex, and age as parameters. The creatinine assay has traceable calibration to isotope dilution-mass spectrometry. Refer to KDIGO guidelines for clinical interpretation. In patients with unstable renal function, e.g. those with acute kidney injury, the eGFR may not accurately reflect actual GFR. Performed By: #### C RET1 ####[facility] [id number] [place] [address] [place] Heteroph Ab Ser Ql LAon 12-0 Heterophile Ab LA Ql (S) Negative Normal Negative [facility] Comment on above: Order Comment: Speci men Type: BLOOD SPECIMENOrdering Facility: [facility] Address: [address] [place] [address] Result Comment: Infe ctious Mononucleosis rapid test is used as an aid in diagnosis of acute infection with Amor-Mar virus (EBV). The antibody levels may occasionally remain elevated up to several months after a primary EBV infection. Final interpretation should be done in conjunction with EBV-specific serology and clinical correlation. False positive results may occasionally be seen with other infectious agents such as Cytomegalovirus, Toxoplasma, and HIV among others as well as non-infectious conditions such as lymphoma. Clinical correlation is required. Performed By: #### 5 213-4 ####[facility] LABCLIA [id number] [place] [address] [place] CNPNon 10-13-2024 CNPN Normal [facility] CNPNon 10-11-2024 CNPN Normal [facility] US ABDOMEN COMPLETEon 2023 US ABDOMEN COMPLETE Normal [facility] CNOVon 10-07-2024 CNOV Normal [facility] Ferritin SerPl-mCncon 2023 Ferritin [Mass/Vol] 21.0 ng/mL Normal 14.7-205.1 [facility] Comment on above: Order Comment: Speci men Type: BLOOD SPECIMENOrdering Facility: [facility] Address: [address] [place] [address] Performed By: #### 2 276-4, 12166-8 ####[facility] LABCLIA [id number] [place] [address] [place] HbA1c (Bld)on 10-07-2024 Average glucose Estimated from glycated hemoglobin (Bld) [Mass/Vol] 255 mg/dL Normal [facility] Comment on above: Order Comment: Tenisha benoit Type: BLOOD SPECIMENOrdering Facility: [facility] Address: [address] [place] [address] Result Comment: eAG: (Estimated average glucose) is a calculated value from HgbA1c and is bilingual inside sales representative of the average blood glucose level in the last 2-3 month period. Performed By: #### 5 5454-3 ####[facility] LABCLIA [id number] [place] [address] [place] HbA1c (Bld) [Mass fraction] 10.5 % High 4.3-5.6 [facility] Comment on above: Order Comment: Tenisha benoit Type: BLOOD SPECIMENOrdering Facility: [facility] Address: [address] [place] [address] Result Comment: [place] Diabetes Association guidelines indicate that patients with HgbA1c in the range 5.7-6.4% are at increased risk for development of diabetes, and intervention by lifestyle modification may be beneficial. HgbA1c greater or equal to 6.5% is considered diagnostic of diabetes. Performed By: #### 5 5454-3 ####[facility] LABCLIA [id number] [place] [address] [place] Hemoccult Stl Ql IAon 2023 Lower GI hemoglobin IA Ql (Stl) Positive Abnormal Negative [facility] Comment on above: Order Comment: Tenisha benoit Type: STOOL SPECIMENOrdering Facility: [facility] Address: [address] [place] [address] Performed By: #### 2 9771-3 ####[facility] LABCLIA [id number] [place] [address] [place] [place] Iron and Iron binding capaci ty panelon 10-07-2024 Iron [Mass/Vol] 44 ug/dL Normal 41-186 [facility] Comment on above: Order Comment: Speci men Type: BLOOD SPECIMENOrdering Facility: [facility] Address: [address] [place] [address] Performed By: #### 2 276-4, 25113-5 ####[facility] LABCLIA [id number] [place] [address] [place] Iron binding capacity [Mass/Vol] 407 ug/dL High 232-386 [facility] Comment on above: Order Comment: Speci men Type: BLOOD SPECIMENOrdering Facility: [facility] Address: [address] [place] [address] Performed By: #### 2 276-4, 95958-3 ####[facility] LABCLIA [id number] [place] [address] [place] Iron/TIBC [Molar ratio] 10.8 % Low 15.0-57.0 [facility] Comment on above: Order Comment: Speci men Type: BLOOD SPECIMENOrdering Facility: [facility] Address: [address] [place] [address] Performed By: #### 2 276-4, 84591-1 ####[facility] LABIA [id number] [place] [address] [place] CNPNon 10-06-2024 CNPN Normal [facility] CNOVon 09-30-2024 CNOV Normal [facility] CBC panel Auto (Bld)on 07-27 Erythrocyte distribution width (RBC) [Ratio] 12.8 % 11.5 - 15.0 % [facility] Hematocrit (Bld) [Volume fraction] 34.7 % Low 36.0 - 46.0 % [facility] Hemoglobin (Bld) [Mass/Vol] 10.8 g/dL Low 11.5 - 15.5 g/dL [facility] Interpretation and review of laboratory results Abnormal [facility] MCH (RBC) [Entitic mass] 28.7 pg 26.0 - 34.0 pg [facility] MCHC (RBC) [Mass/Vol] 31.1 g/dL 30.5 - 36.0 g/dL [facility] MCV (RBC) [Entitic vol] 92.3 fL 80.0 - 100.0 fL [facility] Nucleated RBC (Bld) [#/Vol] [facility] Platelet mean volume (Bld) [Entitic vol] 13.4 fL High 9.0 - 12.7 fL [facility] Platelets (Bld) [#/Vol] 96 10*3/uL Low [facility] Comment on above: Results checked and verified.No clot detected. RBC (Bld) [#/Vol] 3.76 10*6/uL Low 3.90 - 5.20 m/uL [facility] WBC (Bld) [#/Vol] 6.86 10*3/uL [facility] CBC W Auto Differential pane l (Bld)on 04-23-2024 Basophils (Bld) [#/Vol] [facility] Basophils/100 WBC (Bld) 0.3 % [facility] Differential cell count method Nom (Bld) Auto [facility] Eosinophils (Bld) [#/Vol] 0.36 10*3/uL [facility] Eosinophils/100 WBC (Bld) 5.1 % [facility] Erythrocyte distribution width (RBC) [Ratio] 12.7 % 11.5 - 15.0 % [facility] Hematocrit (Bld) [Volume fraction] 34.1 % Low 36.0 - 46.0 % [facility] Hemoglobin (Bld) [Mass/Vol] 11.0 g/dL Low 11.5 - 15.5 g/dL [facility] Immature granulocytes (Bld) [#/Vol] [facility] Immature granulocytes/100 WBC (Bld) 0.3 % [facility] Interpretation and review of laboratory results Abnormal [facility] Lymphocytes (Bld) [#/Vol] 1.86 10*3/uL [facility] Lymphocytes/100 WBC (Bld) 26.4 % [facility] MCH (RBC) [Entitic mass] 30.2 pg 26.0 - 34.0 pg [facility] MCHC (RBC) [Mass/Vol] 32.3 g/dL 30.5 - 36.0 g/dL [facility] MCV (RBC) [Entitic vol] 93.7 fL 80.0 - 100.0 fL [facility] Monocytes (Bld) [#/Vol] 0.29 10*3/uL NINF [facility] Monocytes/100 WBC (Bld) 4.1 % [facility] Neutrophils (Bld) [#/Vol] 4.50 10*3/uL [facility] Neutrophils/100 WBC (Bld) 63.8 % [facility] Nucleated RBC (Bld) [#/Vol] NINF [facility] Nucleated RBC/100 WBC (Bld) [Ratio] 0.0 % /100 WBC [facility] Platelet mean volume (Bld) [Entitic vol] 12.3 fL 9.0 - 12.7 fL [facility] Platelets (Bld) [#/Vol] 101 10*3/uL Low [facility] RBC (Bld) [#/Vol] 3.64 10*6/uL Low 3.90 - 5.20 m/uL [facility] WBC (Bld) [#/Vol] 7.05 10*3/uL [facility] Cobalamin (Vitamin B12) [Mas s/Vol]on 04-23-2024 Interpretation and review of laboratory results Abnormal [facility] FERRITINon 04-23-2024 Ferritin [Mass/Vol] 91.9 ng/mL 14.7 - 205.1 ng/mL [facility] FOLATE, SERUMon 04-23-2024 Folate [Mass/Vol] 12.5 ng/mL 4.7 - PINF ng/mL [facility] Iron and Iron binding capaci ty panelon 04-23-2024 Interpretation and review of laboratory results Abnormal [facility] Iron [Mass/Vol] 50 ug/dL 41 - 186 ug/dL [facility] Iron binding capacity [Mass/Vol] 347 ug/dL 232 - 386 ug/dL [facility] Iron/TIBC [Molar ratio] 14.4 % Low 15.0 - 57.0 % [facility] No Panel Informationon 04-23 Interpretation and review of laboratory results Normal [facility] VITAMIN B12on 04-23-2024 Cobalamin (Vitamin B12) [Mass/Vol] 1586 pg/mL High 232 - 1245 pg/mL [facility] COVID & INFLUENZA A/B & RSV NAAT, ROUTINEon 01-15-2024 FLUAV RNA FRANSISCO+probe Ql (Unsp spec) Not detected Not Detected [facility] FLUBV RNA FRANSISCO+probe Ql (Unsp spec) Not detected Not Detected [facility] RSV A RNA FRANSISCO+probe Ql (Unsp spec) Not detected Not Detected [facility] SARS-CoV-2 (COVID-19) RNA FRANSISCO+probe Ql (Resp) Not detected See comment [facility] STREP A MOLECULAR (POC)on Procedural Control Valid [facility] Strep A (POCT) Negative Negative [facility] HEMOGLOBIN A1C (POC)on 07-30 HbA1c (Bld) [Mass fraction] 7.1 % Abnormal 4.2 - 5.6 % [facility] ANES POSTPROC EVALon 023 ANES POSTPROC EVAL HNO ID: [id number] Author: Ida Lamas MD Service: Anesthesiology Author Type: Anesthesiologist Type: Anesthesia Postprocedure Evaluation Filed: 07/04/2023 12:35 PM Note Text: POST ANESTHESIA EVALUATION NOTE : 1950 Procedure Summary Date: 07/04/23 Room / Location: [facility] Anesthesia Start: 1007 Anesthesia Stop: 1103 Procedures: EGD DIAGNOSTIC COLONOSCOPY DIAGNOSTIC Diagnosis: Diarrhea, unspecified type Abdominal pain, unspecified abdominal location Change in bowel habits (Abdominal pain in the right upper quadrant) (Clinically significant diarrhea of unexplained origin) Scheduled Providers: Rola Muro MD; Gerardo Amador MD; Barney Reed APRN.OPTICAL TECHNICIAN Responsible Provider: Ida Lamas MD Anesthesia Type: MAC ASA Status: 3 Anesthesia Type: MAC Last Vitals Vitals Value Taken Time BP 132/60 07/04/23 1122 Temp 36.1 ?C (97 ?F) 07/04/23 1104 Pulse 64 07/04/23 1126 Resp 16 07/04/23 1126 SpO2 94 % 07/04/23 1126 Vitals shown include unvalidated device data. Post Anesthesia Patient Status Patient Evaluation: PACU. PACU/ICU Patient Condition: stable. Anticipated Disposition: phase 2 then home. Neurological Status: aware and responsive. Pulmonary Status: breathing comfortably on room air Airway Control: returned to baseline unsupported. Cardiovascular Status: stable. Pain Management: clinically adequate - multimodal analgesia pain management approach Postoperative Hydration: acceptable. Intraoperative Events: no significant anesthesia events Post Operative Nausea/Vomiting Status: no significant post operative nausea or vomiting Recommendation: continue current plan of care. Anesthesia Observations No Documentation SIGNATURE: Ida Lamas MD PATIENT NAME: Angeli Ramirez Case DATE: July 04, 2023 TIME: 12:34 PM CSN: [id number] Normal [facility] ANES PRE-OPon 07-04-2023 ANES PRE-OP HNO ID: [id number] Author: Ida Lamas MD Service: Anesthesiology Author Type: Anesthesiologist Type: Anesthesia Preprocedure Evaluation Filed: 07/04/2023 10:07 AM Note Text: ANESTHESIOLOGY DAY OF SURGERY NOTE : 1950 Procedure Information Date/Time: 07/04/23 1115 Scheduled providers: Rola Muro MD; Gerardo Amador MD; Barney Reed APRN.OPTICAL TECHNICIAN Procedures: EGD DIAGNOSTIC COLONOSCOPY DIAGNOSTIC Location: [facility] Estimated body mass index is 31.28 kg/m? as calculated from the following: Height as of 06/11/23: 157.5 cm (5' 2). Weight as of 06/11/23: 77.6 kg (171 lb). Most recent hematocrit and potassium results: Hematocrit 34.4 06/11/2023 Potassium 5.0 06/11/2023 Relevant Problems CARDIO (+) Essential hypertension, benign (+) Hypertension (+) Internal hemorrhoids without mention of complication ENDO (+) Acquired hypothyroidism (+) Type 2 diabetes mellitus with stage 3 chronic kidney disease, with long-term current use of insulin (HCC) (+) Type 2 diabetes mellitus, with long-term current use of insulin (HCC) GI (+) GERD (gastroesophageal reflux disease) (+) GERD without esophagitis -RENAL (+) Chronic kidney disease (CKD) stage G3a/A2, moderately decreased glomerular filtration rate (GFR) between 45-59 mL/min/1.73 square meter and albuminuria creatinine ratio between 30-299 mg/g (HCC) (+) Fatty liver (+) Hypertensive kidney disease with stage 3 chronic kidney disease (HCC) (+) Kidney stone Other (+) Gout involving toe of right foot I - PHYSICAL EVALUATION AIRWAY Patient intubated: No. Tracheostomy tube not present Mallampati: III. TM distance: >3 FB. Neck ROM: limited flexion and extension. Mouth opening: adequate. Short neck: yes. Thick neck: yes Carranza present: no Microretrognathia/Micronagthia/ Recessed Chin: No DENTAL Dental findings: teeth intact and missing tooth/teeth. Additional exam findings: no II - ANESTHESIA PLAN ASA Score: 3 Anesthetic Plan: MAC The patient is not a current smoker. NPO Status: adequate Beta Pola Monitoring Plan Monitoring plan: standard ASA. Post Procedure Analgesic Plan Postoperative analgesic plan: parenteral or oral opioids. Informed Consent Anesthetic risks, benefits, alternatives, personnel and consent discussed: yes. Patient / Responsible Green Party agrees to proceed: yes Patient / Surrogate agrees to blood products: blood products not planned DNR status not reviewed with patient and/or family prior to surgery. Significant changes in the patient condition since the History and Physical, not otherwise documented in primary service progress note: no. Potential Anesthesia issues that may suggest increased risk of complications or contraindication to planned procedure: none. Vitals Value Taken Time BP 156/71 07/04/23 0945 Pulse Resp 18 07/04/23 0945 Temp 36 ?C (96.8 ?F) 07/04/23 0945 SpO2 98 % 07/04/23 0945 Outpatient Medications as of 07/04/2023 Medication Sig - citalopram (CELEXA) 20 mg tablet TAKE 1 TABLET DAILY - omega-3 DHA-EPA (FISH OIL) 1,200 (144-216) mg capsule Take 1 capsule by mouth once daily. - metoprolol tartrate, short acting, (LOPRESSOR) 100 mg tablet TAKE 1 TABLET TWICE A DAY - insulin glargine (LANTUS SOLOSTAR, BASAGLAR KWIKPEN) 100 unit/mL (3 mL) Inject 52 units SQ in the AM and 52 units SQ in the evening. Basaglar - through [facility]. - rosuvastatin (CRESTOR) 5 mg tablet take 1 tablet by mouth at bedtime - enalapril (VASOTEC) 20 mg tablet Take 1 tablet by mouth twice daily. - levothyroxine (SYNTHROID) 112 mcg tablet Take 1 tablet by mouth PO daily in AM. For thyroid. - ezetimibe (ZETIA) 10 mg tablet Take 1 tablet by mouth once daily. For cholesterol - omeprazole (PRILOSEC) 40 mg capsule TAKE 1 CAPSULE DAILY - apremilast (OTEZLA) 30 mg tablet Take 30 mg by mouth once daily. - cholecalciferol (VITAMIN D3) 50 mcg (2,000 unit) tablet Take one tablet by mouth once daily Friday through Friday. - oxyCODONE-acetaminophen (PERCOCET) 5-325 mg tablet Take 1 tablet by mouth every 8 hours as needed for pain. - Triamcinolone Acetonide 0.05 % oint Apply to affected area. - insulin lispro (HUMALOG KWIKPEN INSULIN) 100 unit/mL Inject 12 units with breakfast, 16 units with lunch, and 14 units with dinner + sliding scale insulin (1 unit for every 50 >150 pts). Gets through [employer]. - Blood-Glucose Meter Use to check blood sugar daily - blood sugar diagnostic (BLOOD GLUCOSE TEST) test strip Use to check blood sugar four times daily - Lancets lancets Use to check blood sugar four times daily - Insulin [place], Disposable, (BD ULTRA-FINE PATRICIO PEN NEEDLE) 32 gauge x 5/32 Use 4 pen needles daily with Basaglar and Humalog - flash glucose scanning reader ([employer] BETSEY 14 DAY READER) Use to check blood sugar as directed. - colchicine (COLCRYS) 0.6 mg tablet Take 1 tablet by mouth twice daily. For acute gout flare up (more content not included)... Normal [facility] COLONOSCOPY DIAGNOSTICon [facility] Colonoscopyon 07-04-2023 Colonoscopy [facility] Patient Name: Angeli Case Procedure Date: 07/04/2023 10:26 AM Date of : 1950 Admit Type: Outpatient Age: 72 Room: [facility] Gender: Female Note Status: Finalized Attending MD: Rola Muro MD Procedure: Colonoscopy Indications: Clinically significant diarrhea of unexplained origin Providers: Rola Muro MD Patient Profile: This is a 72 year old female. Refer to note in patient chart for documentation of history and physical. Last Colonoscopy: June 2014. Referring Physician: Vanessa Gary (pa) (Referring MD) Medicines: See the Anesthesia note for documentation of the administered medications Complications: No immediate complications. Estimated blood loss: Minimal. Requesting Provider: Procedure: Pre-Anesthesia Assessment: - Prior to the procedure, a History and Physical was performed, and patient medications and allergies were reviewed. The patient's tolerance of previous anesthesia was also reviewed. The risks and benefits of the procedure and the sedation options and risks were discussed with the patient. All questions were answered, and informed consent was obtained. Prior Anticoagulants: The patient has taken no anticoagulant or antiplatelet agents. ASA Grade Assessment: III - A patient with severe systemic disease. After reviewing the risks and benefits, the patient was deemed in satisfactory condition to undergo the procedure. After I obtained informed consent, the scope was passed under direct vision. Throughout the procedure, the patient's blood pressure, pulse, and oxygen saturations were monitored continuously. The Colonoscope was introduced through the anus and advanced to 3 cm into the ileum. The colonoscopy was performed without difficulty. The patient tolerated the procedure well. The quality of the bowel preparation was adequate to identify polyps 6 mm and larger in size. The terminal ileum, ileocecal valve, appendiceal orifice, and rectum were photographed. Scope Withdrawal Time: 0 hours 21 minutes 42 seconds Moderate Sedation: Moderate (conscious) sedation was personally administered by an anesthesia professional. The following parameters were monitored: oxygen saturation, heart rate, blood pressure, respiratory rate, EKG, adequacy of pulmonary ventilation, and response to care. MAC anesthesia was administered by the anesthesia team. Total Procedure Duration: 0 hours 28 minutes 56 seconds Findings: The perianal and digital rectal examinations were normal. Two sessile polyps were found in the rectum and ascending colon. The polyps were small in size. These polyps were removed with a jumbo cold forceps. Resection and retrieval were complete. A small polyp was found in the ascending colon. The polyp was sessile. The polyp was removed with a cold snare. Resection and retrieval were complete. The colon (entire examined portion) appeared normal. Biopsies for histology were taken with a cold forceps from the entire colon for evaluation of microscopic colitis. Many small-mouthed diverticula were found in the sigmoid colon. Non-bleeding internal hemorrhoids were found during retroflexion. The hemorrhoids were mild and small. The terminal ileum appeared normal. Biopsies were taken with a cold forceps for histology. The exam was otherwise without abnormality. Impression: - Two small polyps in the rectum and in the ascending colon, removed with a jumbo cold forceps. Resected and retrieved. - One small polyp in the ascending colon, removed with a cold snare. Resected and retrieved. - The entire examined colon is normal. Biopsied. - Diverticulosis in the sigmoid colon. - Non-bleeding internal hemorrhoids. - The examined portion of the ileum was normal. Biopsied. - The examination was otherwise normal. Recommendation: - Patient has a contact number available for emergencies. The signs and symptoms of potential delayed complications were discussed with the patient. Return to normal activities tomorrow. Written discharge instructions were provided to the patient. - Resume previous diet. - Continue present medications. - Await pathology results. - Repeat colonoscopy date to be determined after pending pathology results are reviewed for surveillance based on pathology results. - Return to physician pharmacist assistant in 1 week. Procedure Code(s): --- Professional --- 48483, Colonoscopy, flexible; with removal of tumor(s), polyp(s), or other lesion(s) by snare technique 11128, 59, Colonoscopy, flexible; with biopsy, single or multiple Diagnosis Code(s): --- Professional --- D12.8, Benign neoplasm of rectum D12.2, Benign neoplasm of ascending colon K64.8, Other hemorrhoids R19.7, Diarrhea, unspecified K57.30, Diverticulosis of large intestine without perforation or abscess without bleeding CPT copyrigh (more content not included)... Normal [facility] EGD DIAGNOSTICon 07-04-2023 [facility] GLUCOSE, BLOOD (POC)on 07-04 Glucose [Mass/Vol] 102 mg/dL Abnormal 74 - 99 mg/dL [facility] Glucose [Mass/Vol] 101 mg/dL Abnormal 74 - 99 mg/dL [facility] HISTORY PHYSICALon HISTORY PHYSICAL HNO ID: [id number] Author: Rola Muro MD Service: General Surgery Author Type: Physician Type: HANDP Filed: 07/04/2023 9:37 AM Note Text: HISTORY AND PHYSICAL Angeli Ramirez Case 1950 REFERRING PHYSICIAN: Mariano Pearce DO CHIEF COMPLAINT: Consult (gallstones) HPI: Angeli is a 72 year old female with a complaint of right upper quadrant pain. The patient has had symptoms of right upper quadrant pain for 2 months. The symptoms have maintained, over the past 2 months. The pain does radiate to the back. Food does aggravate her symptoms. Alleviating factors include: none. The patient was seen by her primary care physician. Angeli underwent an ultrasound. These tests demonstrated cholelithiasis. The patient is referred for evaluation and treatment. The patient is being seen by me today at the request of Dr. Mariano Pearce DO for my opinion and advice regarding Calculus of gallbladder with acute on chronic cholecystitis without obstruction (primary encounter diagnosis) Right upper quadrant pain. SIGNIFICANT MEDICAL PROBLEMS: PAST MEDICAL HISTORY PAST MEDICAL HISTORY Diagnosis Date Advance care planning 04/23/2022 daughter Rebecca Case is medical POA per patient Allergic rhinitis, cause unspecified Allergic rhinitis Arthritis Benign hypertensive heart disease without heart failure BPPV (benign paroxysmal positional vertigo) Chronic kidney disease (CKD) stage G3a/A2, moderately decreased glomerular filtration rate (GFR) between 45-59 mL/min/1.73 square meter and albuminuria creatinine ratio between 30-299 mg/g (HCC) Diverticulitis Esophageal reflux Fatty liver Fatty liver Fibromyalgia Gastric polyp 07/04/2014 Dr. Spence, needs repeat EGD in 01/01 Gout right great toe Hernia of other specified sites of abdominal cavity without mention of obstruction or gangrene HIATAL Hypertension IBS (irritable bowel syndrome) Irritable bowel syndrome Leiomyoma of uterus Other and unspecified hyperlipidemia PONV (postoperative nausea and vomiting) 03/11/2018 Renal calculi Snoring Type II or unspecified type diabetes mellitus without mention of complication, not stated as uncontrolled Unspecified hemorrhoids without mention of complication Hemorrhoids Unspecified hypothyroidism OPERATIONS: PAST SURGICAL HISTORY PAST SURGICAL HISTORY Procedure Laterality Date APPENDECTOMY APPENDECTOMY COLONOSCOPY FLX DX W/COLLJ SPEC WHEN PFRMD 07/04/14 Colonoscopy, Dr. Spence ESOPHAGOGASTRODUODENOSCOPY TRANSORAL DIAGNOSTIC 07/04/14 EGD, Dr. Spence ESOPHAGOGASTRODUODENOSCOPY TRANSORAL DIAGNOSTIC 05/29/15 EGD LAPS ABD PRTMANDOMENTUM DX W/WO SPEC BR/WA SPX 1989 Laparoscopy and scar tissue seen LIG/TRNSXJ FLP TUBE ABDL/VAG APPR UNI/BI Tubal ligation PAST SURGICAL HISTORY OF CARPEL TUNNEL/BILATERAL PAST SURGICAL HISTORY OF 1969 exploratory lap and left salpingectomy for bad infection POLYPECTOMY SNARE STIFF WIRE 07/04/14 gastric TONSILLECTOMY HX TONSILLECTOMY PRIMARY/SECONDARY Tonsillectomy VAGINAL HYSTERECTOMY VAGINAL HYSTERECTOMY UTERUS 250 GM/< 03/2018 Hysterectomy, vaginal CURRENT MEDICATIONS: CURRENT MEDICATIONS Current Outpatient Medications Medication Sig Dispense Refill LORazepam (ATIVAN) 2 mg tab Take 1 tablet by mouth at bedtime as needed for up to 30 days. 30 tablet 1 insulin lispro (HUMALOG KWIKPEN INSULIN) 100 unit/mL Inject 12 units with breakfast, 16 units with lunch, and 14 units with dinner + sliding scale insulin (1 unit for every 50 >150 pts). Gets through [employer]. Blood-Glucose Meter Use to check blood sugar daily 1 Each 0 blood sugar diagnostic (BLOOD GLUCOSE TEST) test strip Use to check blood sugar four times daily 400 Each 3 Lancets lancets Use to check blood sugar four times daily 400 Each 3 citalopram (CELEXA) 20 mg tablet TAKE 1 TABLET DAILY 90 tablet 3 omega-3 DHA-EPA (FISH OIL) 1,200 (144-216) mg capsule Take 1 capsule by mouth once daily. metoprolol tartrate, short acting, (LOPRESSOR) 100 mg tablet TAKE 1 TABLET TWICE A DAY 180 tablet 3 insulin glargine (LANTUS SOLOSTAR, BASAGLAR KWIKPEN) 100 unit/mL (3 mL) Inject 52 units SQ in the AM and 52 units SQ in the evening. Basaglar - through [employer]. 45 Each 2 Insulin [place], Disposable, (BD ULTRA-FINE PATRICIO PEN NEEDLE) 32 gauge x 5/32 Use 4 pen needles daily with Basaglar and Humalog 360 Each 3 rosuvastatin (CRESTOR) 5 mg tablet take 1 tablet by mouth at bedtime 90 tablet 5 enalapril (VASOTEC) 20 mg tablet Take 1 tablet by mouth twice daily. 180 tablet 3 levothyroxine (SYNTHROID) 112 mcg tablet Take 1 tablet by mouth PO daily in AM. For thyroid. 90 tablet 3 ezetimibe (ZETIA) 10 mg tablet Take 1 tablet by mouth once daily. For cholesterol 90 tablet 3 omeprazole (PRILOSEC) 40 mg capsule TAKE 1 CAPSULE DAILY 90 capsule 3 flash glucose scanning reader ([employer] BETSEY 14 DAY READER) Use to check blood sugar as directed. 1 Eac (more content not included)... [facility] SURGICAL PATHOLOGYon [address] [facility] Comment on above: Order Comment: Speci men Type: TISSUE SPECIMENOrdering Facility: [facility] Address: [address] [place] [address] [place] [address] Result Comment: Surg ica Pathology Report Case: [id number] Authorizing Provider: Rola Muro MD Collected: 07/04/2023 10:20 AM Ordering Location: [facility] Received: 07/04/2023 12:20 PM Pathologist: Marcial Forbes MD Specimens: A) - DUODENUM BIOPSY B) - ANTRUM (STOMACH) BIOPSY, r/o H. Pylori C) - ESOPHAGUS BIOPSY, distal D) - ESOPHAGUS MID BIOPSY E) - TERMINAL ILEUM BIOPSY F) - COLON BIOPSY, random colon BX. G) - ASCENDING COLON POLYP, x2 H) - RECTAL POLYP Performed By: #### S ####[facility] LABCLIA [id number] [address] DIAGNOSIS COMMENT A. Increased intraep ithelial lymphocytes, in the absence of villous abnormalities, may be seen in the association with celiac disease and other conditions such as peptic disease, infection, and some medications. Clinical correlation with appropriate serologic studies may be considered if clinically indicated. Normal [facility] Comment on above: Order Comment: Specmilton benoit Type: TISSUE SPECIMENOrdering Facility: [facility] Address: [address] [place] [address] Performed By: #### S ####[facility] [id number] [address] FINAL DIAGNOSIS Normal [facility] Comment on above: Order Comment: [facility] Type: TISSUE SPECIMENOrdering Facility: [facility] Address: [address] [place] [address] Result Comment: A. D uodenum, biopsy: - Small intestinal mucosa with normal villous architecture and increased intraepithelial lymphocytes; see comment. B. Stomach, antrum, biopsy: - Gastric antral and oxyntic mucosa with chemical gastropathy. C. Esophagus, distal, biopsy: - Squamous mucosa with no diagnostic abnormality. D. Esophagus, mid, biopsy: - Active esophagitis (up to 4 eosinophils in a single high-power field). E. Terminal ileum, biopsy: - Small intestinal mucosa with no diagnostic abnormality. F. Colon, biopsy: - Colonic mucosa with no diagnostic abnormality. G. Colon, ascending, polyp, biopsy: - Tubular adenoma. H. Rectum, polyp, biopsy: - Hyperplastic polyp. Performed By: #### S ####[facility]CLIA [id number] [address] OF [place] FINAL PERFORMING LAB [facility] Comment on above: Order Comment: Speci men Type: TISSUE SPECIMENOrdering Facility: [facility] Address: [address] [address] Result Comment: Diag nostic interpretation performed at [facility], [address] [address] CLIA# [id number] Topper Packer: Antonino Fink M.D. Performed By: #### S ####[facility] LABCLIA [id number] [address] GROSS DESCRIPTION [facility] Comment on above: Order Comment: Speci men Type: TISSUE SPECIMENOrdering Facility: [facility] Address: [address] [address] Result Comment: A. D UODENUM BIOPSY Received in formalin are multiple pieces of garcía, soft tissue aggregating to 0.4 x 0.3 x 0.2 cm. Totally submitted in one cassette. B. ANTRUM (STOMACH) BIOPSY Received in formalin are two pieces of garcía, soft tissue aggregating to 0.6 x 0.4 x 0.1 cm. Totally submitted in one cassette. C. ESOPHAGUS BIOPSY Received in formalin are multiple pieces of garcía-white, soft tissue aggregating to 0.7 x 0.6 x 0.2 cm. Totally submitted in one cassette. D. ESOPHAGUS MID BIOPSY Received in formalin is one piece of garcía, soft tissue measuring 0.4 x 0.3 x 0.2 cm. Totally submitted in one cassette. E. TERMINAL ILEUM BIOPSY Received in formalin is one piece of garcía, soft tissue measuring 0.4 x 0.4 x 0.2 cm. Totally submitted in one cassette. F. COLON BIOPSY Received in formalin are multiple pieces of garcía, soft tissue aggregating to 0.8 x 0.7 x 0.2 cm. Totally submitted in one cassette. G. ASCENDING COLON POLYP Received in formalin are two pieces of garcía, soft tissue aggregating to 0.5 x 0.4 x 0.2 cm. Totally submitted in one cassette. H. RECTAL POLYP Received in formalin is one piece of garcía, soft tissue measuring 0.3 x 0.3 x 0.2 cm. Totally submitted in one cassette. Gross examination performed at [facility], [facility] [id number] [facility] July 04, 2023 5:34 PM Performed By: #### S ####[facility] LABCLIA [id number] [address] [place] [address] [facility] Upper GI endoscopyon 07-04-2 023 Upper GI endoscopy [facility] Gastrointestinal Endoscopy Patient Name: Angeli Case Procedure Date: 07/04/2023 9:40 AM Date of : 1950 Admit Type: Outpatient Age: 72 Room: [facility] Gender: Female Note Status: Finalized Attending MD: Rola Muro MD Procedure: Upper GI endoscopy Indications: Abdominal pain in the right upper quadrant Providers: Rola Muro MD Patient Profile: This is a 72 year old female. Refer to note in patient chart for documentation of history and physical. Referring Physician: Vanessa Gary (pa) (Referring MD) Medicines: See the Anesthesia note for documentation of the administered medications Complications: No immediate complications. Estimated blood loss: Minimal. Requesting Provider: Procedure: Pre-Anesthesia Assessment: - Prior to the procedure, a History and Physical was performed, and patient medications and allergies were reviewed. The patient's tolerance of previous anesthesia was also reviewed. The risks and benefits of the procedure and the sedation options and risks were discussed with the patient. All questions were answered, and informed consent was obtained. Prior Anticoagulants: The patient has taken no anticoagulant or antiplatelet agents. ASA Grade Assessment: III - A patient with severe systemic disease. After reviewing the risks and benefits, the patient was deemed in satisfactory condition to undergo the procedure. After obtaining informed consent, the endoscope was passed under direct vision. Throughout the procedure, the patient's blood pressure, pulse, and oxygen saturations were monitored continuously. The Colonoscope was introduced through the mouth, and advanced to the second part of duodenum. The upper GI endoscopy was accomplished without difficulty. The patient tolerated the procedure well. Moderate Sedation: Moderate (conscious) sedation was personally administered by an anesthesia professional. The following parameters were monitored: oxygen saturation, heart rate, blood pressure, respiratory rate, EKG, adequacy of pulmonary ventilation, and response to care. MAC anesthesia was administered by the anesthesia team. Total Procedure Duration: 0 hours 9 minutes 6 seconds Findings: The Z-line was regular and was found 40 cm from the incisors. Localized mild inflammation characterized by erythema and linear erosions was found in the prepyloric region of the stomach. Biopsies were taken with a cold forceps for Helicobacter pylori testing. Multiple small sessile polyps with no bleeding and no stigmata of recent bleeding were found in the gastric body. No biopsies or other specimens were collected for this exam. The examined duodenum was normal. Biopsies for histology were taken with a cold forceps for evaluation of celiac disease. Impression: - Z-line regular, 40 cm from the incisors. - Gastritis. Biopsied. - Multiple gastric polyps. No specimens collected. - Normal examined duodenum. Biopsied. Recommendation: - Patient has a contact number available for emergencies. The signs and symptoms of potential delayed complications were discussed with the patient. Return to normal activities tomorrow. Written discharge instructions were provided to the patient. - Resume previous diet. - Continue present medications. - Await pathology results. - Repeat upper endoscopy PRN for surveillance. - Return to physician pharmacist assistant in 1 week. Procedure Code(s): --- Professional --- 69051, Esophagogastroduodenoscopy, flexible, transoral; with biopsy, single or multiple Diagnosis Code(s): --- Professional --- K29.70, Gastritis, unspecified, without bleeding K31.7, Polyp of stomach and duodenum R10.11, Right upper quadrant pain CPT copyright 2020 [employer]. All rights reserved. The codes documented in this report are preliminary and upon industrial engineering technician review may be revised to meet current compliance requirements. Attending Participation: I personally performed the entire procedure. Scope In: 10:16:47 AM Scope Out: 10:25:53 AM MD Rola Mark MD 07/04/2023 10:59:36 AM This report has been signed electronically by Rola Muro MD Number of Addenda: 0 Note Initiated On: 07/04/2023 9:40 AM Estimated Blood Loss: Estimated blood loss was minimal. Normal [facility] CBC W Auto Differential pane l (Bld)on 06-11-2023 Basophils (Bld) [#/Vol] 0.04 10*3/uL <0.11 k/uL [facility] Basophils/100 WBC (Bld) 0.4 % [facility] Differential cell count method Nom (Bld) Auto [facility] Eosinophils (Bld) [#/Vol] 0.78 10*3/uL High <0.46 k/uL [facility] Eosinophils/100 WBC (Bld) 7.4 % [facility] Erythrocyte distribution width (RBC) [Ratio] 12.9 % 11.5 - 15.0 % [facility] Hematocrit (Bld) [Volume fraction] 34.4 % Low 36.0 - 46.0 % [facility] Hemoglobin (Bld) [Mass/Vol] 11.0 g/dL Low 11.5 - 15.5 g/dL [facility] Immature granulocytes (Bld) [#/Vol] 0.03 10*3/uL <0.10 k/uL [facility] Immature granulocytes/100 WBC (Bld) 0.3 % [facility] Lymphocytes (Bld) [#/Vol] 2.60 10*3/uL 1.00 - 4.00 k/uL [facility] Lymphocytes/100 WBC (Bld) 24.7 % [facility] MCH (RBC) [Entitic mass] 30.0 pg 26.0 - 34.0 pg [facility] MCHC (RBC) [Mass/Vol] 32.0 g/dL 30.5 - 36.0 g/dL [facility] MCV (RBC) [Entitic vol] 93.7 fL 80.0 - 100.0 fL [facility] Monocytes (Bld) [#/Vol] 0.70 10*3/uL <0.87 k/uL [facility] Monocytes/100 WBC (Bld) 6.7 % [facility] Neutrophils (Bld) [#/Vol] 6.37 10*3/uL 1.45 - 7.50 k/uL [facility] Neutrophils/100 WBC (Bld) 60.5 % [facility] Nucleated RBC (Bld) [#/Vol] <0.01 k/uL [facility] Nucleated RBC/100 WBC (Bld) [Ratio] 0.0 /100 WBC [facility] Platelet mean volume (Bld) [Entitic vol] 11.4 fL 9.0 - 12.7 fL [facility] Platelets (Bld) [#/Vol] 150 10*3/uL 150 - 400 k/uL [facility] RBC (Bld) [#/Vol] 3.67 10*6/uL Low 3.90 - 5.20 m/uL [facility] WBC (Bld) [#/Vol] 10.52 10*3/uL 3.70 - 11.00 k/uL [facility] Comprehensive metabolic 2000 panelon 06-11-2023 Albumin [Mass/Vol] 3.8 g/dL Low 3.9 - 4.9 g/dL [facility] ALP [Catalytic activity/Vol] 123 U/L 34 - 123 U/L [facility] ALT [Catalytic activity/Vol] 20 U/L 7 - 38 U/L [facility] Anion gap [Moles/Vol] 10 mmol/L 9 - 18 mmol/L [facility] AST [Catalytic activity/Vol] 25 U/L 13 - 35 U/L [facility] Bilirubin [Mass/Vol] 0.4 mg/dL 0.2 - 1.3 mg/dL [facility] Calcium [Mass/Vol] 9.2 mg/dL 8.5 - 10. 2 mg/dL [facility] Chloride [Moles/Vol] 104 mmol/L 97 - 105 mmol/L [facility] CO2 [Moles/Vol] 24 mmol/L 22 - 30 mmol/L [facility] Creatinine [Mass/Vol] 1.15 mg/dL High 0.58 - 0.96 mg/dL [facility] Estimated Glomerular Filtration Rate 51 mL/min/1.73m Low >=60 mL/min/1.7 3m [facility] Glucose [Mass/Vol] 115 mg/dL High 74 - 99 mg/dL [facility] Potassium [Moles/Vol] 5.0 mmol/L 3.7 - 5.1 mmol/L [facility] Protein [Mass/Vol] 6.6 g/dL 6.3 - 8.0 g/dL [facility] Sodium [Moles/Vol] 138 mmol/L 136 - 144 mmol/L [facility] Urea nitrogen [Mass/Vol] 13 mg/dL 7 - 21 mg/dL [facility] ANES POSTPROC EVALon 023 ANES POSTPROC EVAL HNO ID: [id number] Author: Mery Guerra MD Service: Anesthesiology Author Type: Anesthesiologist Type: Anesthesia Postprocedure Evaluation Filed: 06/04/2023 10:53 AM Note Text: POST ANESTHESIA EVALUATION NOTE : 1950 Procedure Summary Date: 06/04/23 Room / Location: [facility] Anesthesia Start: 831 Anesthesia Stop: 947 Procedure: LAPAROSCOPIC CHOLECYSTECTOMY WITH GRAMS Diagnosis: Calculus of gallbladder with acute on chronic cholecystitis without obstruction Right upper quadrant pain (Calculus of gallbladder with acute on chronic cholecystitis without obstruction [K80.12]) (Right upper quadrant pain [R10.11]) Surgeons: Rola Muro MD Responsible Provider: Mery Guerra MD Anesthesia Type: general ASA Status: 3 Anesthesia Type: general Airway Type: ETT Last Vitals Vitals Value Taken Time BP 137/67 06/04/23 1046 Temp 36.1 ?C (97 ?F) 06/04/23 0949 Pulse 77 06/04/23 1052 Resp 20 06/04/23 1052 SpO2 96 % 06/04/23 1052 Vitals shown include unvalidated device data. Post Anesthesia Patient Status Patient Evaluation: PACU. PACU/ICU Patient Condition: stable. Anticipated Disposition: phase 2 then home. Neurological Status: aware and responsive. Pulmonary Status: breathing comfortably on room air Airway Control: returned to baseline unsupported. Cardiovascular Status: stable. Pain Management: clinically adequate - multimodal analgesia pain management approach Postoperative Hydration: acceptable. Intraoperative Events: no significant anesthesia events Post Operative Nausea/Vomiting Status: no significant post operative nausea or vomiting Recommendation: continue current plan of care. Anesthesia Observations No Documentation SIGNATURE: Mery Guerra MD PATIENT NAME: Angeli Ramirez Case DATE: June 04, 2023 TIME: 10:53 AM CSN: [id number] [facility] ANES PRE-OPon 06-04-2023 ANES PRE-OP HNO ID: [id number] Author: Mery Guerra MD Service: Anesthesiology Author Type: Anesthesiologist Type: Anesthesia Preprocedure Evaluation Filed: 06/04/2023 7:50 AM Note Text: ANESTHESIOLOGY DAY OF SURGERY NOTE : 1950 Procedure Information Date/Time: 06/04/23829 Procedure: LAPAROSCOPIC CHOLECYSTECTOMY WITH GRAMS Location: [facility] OR Surgeons: Rola Muro MD Estimated body mass index is 31.09 kg/m? as calculated from the following: Height as of 05/21/23: 157.5 cm (5' 2). Weight as of 05/21/23: 77.1 kg (170 lb). Most recent hematocrit and potassium results: Hematocrit 37.4 05/21/2023 Potassium 4.9 05/21/2023 Relevant Problems CARDIO (+) Essential hypertension, benign (+) Hypertension (+) Internal hemorrhoids without mention of complication ENDO (+) Acquired hypothyroidism (+) Type 2 diabetes mellitus with stage 3 chronic kidney disease, with long-term current use of insulin (HCC) (+) Type 2 diabetes mellitus, with long-term current use of insulin (HCC) GI (+) GERD (gastroesophageal reflux disease) (+) GERD without esophagitis -RENAL (+) Chronic kidney disease (CKD) stage G3a/A2, moderately decreased glomerular filtration rate (GFR) between 45-59 mL/min/1.73 square meter and albuminuria creatinine ratio between 30-299 mg/g (HCC) (+) Fatty liver (+) Hypertensive kidney disease with stage 3 chronic kidney disease (HCC) (+) Kidney stone Other (+) Gout involving toe of right foot I - PHYSICAL EVALUATION AIRWAY Patient intubated: No. Tracheostomy tube not present Mallampati: III. TM distance: >3 FB. Neck ROM: full ROM without neurological symptoms. Mouth opening: adequate. Short neck: no. Thick neck: no DENTAL Dental findings: teeth intact. Additional exam findings: yes. CARDIOVASCULAR Rhythm: regular PULMONARY Breath sounds clear to auscultation. II - ANESTHESIA PLAN ASA Score: 3 Anesthetic Plan: general Airway type: ETT The patient is not a current smoker. NPO Status: adequate Anesthetic plan additional comments: Took no insulin today has meter on left upper arm . Beta Pola Monitoring Plan Monitoring plan: Standard ASA. Post Procedure Analgesic Plan Postoperative analgesic plan: parenteral or oral opioids and multimodal analgesia. Informed Consent Anesthetic risks, benefits, alternatives, personnel and consent discussed: yes. Patient / Responsible Green Party agrees to proceed: yes Patient / Surrogate agrees to blood products: yes DNR status not reviewed with patient and/or family prior to surgery. Significant changes in the patient condition since the History and Physical, not otherwise documented in primary service progress note: no. Potential Anesthesia issues that may suggest increased risk of complications or contraindication to planned procedure: none. Vitals Value Taken Time BP 175/74 06/04/23735 Pulse Resp 18 06/04/23735 Temp 36.6 ?C (97.9 ?F) 06/04/23735 SpO2 98 % 06/04/23735 Facility-Administered Medications as of 06/04/2023 Medication Dose Route Frequency - lidocaine (PF) 10 mg/mL (1 %) 1-2 mg injection (XYLOCAINE) 0.1-0.2 mL INTRADERMAL PRN - lactated ringers iv infusion 5-30 mL/hr INTRAVENOUS CONTINUOUS - NaCl 0.9% iv flush bag 20 mL INTRAVENOUS PRN - ceFAZolin iv piggyback 2 g in D5W (iso-osmotic) 100 mL (ANCEF) 2 g INTRAVENOUS Pre-Op Once - acetaminophen 1,000 mg tab(s) (TYLENOL) 1,000 mg ORAL Pre-Op Once - promethazine 12.5 mg tab(s) (PHENERGAN) 12.5 mg ORAL Pre-Op Once Outpatient Medications as of 06/04/2023 Medication Sig - insulin lispro (HUMALOG KWIKPEN INSULIN) 100 unit/mL Inject 12 units with breakfast, 16 units with lunch, and 14 units with dinner + sliding scale insulin (1 unit for every 50 >150 pts). Gets through [facility] [employer]. - citalopram (CELEXA) 20 mg tablet TAKE 1 TABLET DAILY - omega-3 DHA-EPA (FISH OIL) 1,200 (144-216) mg capsule Take 1 capsule by mouth once daily. - metoprolol tartrate, short acting, (LOPRESSOR) 100 mg tablet TAKE 1 TABLET TWICE A DAY - insulin glargine (LANTUS SOLOSTAR, BASAGLAR KWIKPEN) 100 unit/mL (3 mL) Inject 52 units SQ in the AM and 52 units SQ in the evening. Basaglar - through [facility]. - rosuvastatin (CRESTOR) 5 mg tablet take 1 tablet by mouth at bedtime - enalapril (VASOTEC) 20 mg tablet Take 1 tablet by mouth twice daily. - levothyroxine (SYNTHROID) 112 mcg tablet Take 1 tablet by mouth PO daily in AM. For thyroid. - ezetimibe (ZETIA) 10 mg tablet Take 1 tablet by mouth once daily. For cholesterol - omeprazole (PRILOSEC) 40 mg capsule TAKE 1 CAPSULE DAILY - colchicine (COLCRYS) 0.6 mg tablet Take 1 tablet by mouth twice daily. For acute gout flare up - apremilast (OTEZLA) 30 mg tablet Take 30 mg by mouth once daily. - acetaminophen (TYLENOL) 325 mg tablet Take 2 tablets by mouth every 6 hours as needed for Pain. - cholecalciferol (VITAMIN D3) 50 mcg (2,000 unit) tablet Take one tablet (more content not included)... Normal [facility] HISTORY PHYSICALon HISTORY PHYSICAL HNO ID: [id number] Author: Rola Muro MD Service: General Surgery Author Type: Physician Type: HANDP Filed: 06/04/2023 8:18 AM Note Text: HISTORY AND PHYSICAL Angeli Ramirez Case 1950 REFERRING PHYSICIAN: Mariano Pearce DO CHIEF COMPLAINT: Consult (gallstones) HPI: Angeli is a 72 year old female with a complaint of right upper quadrant pain. The patient has had symptoms of right upper quadrant pain for 2 months. The symptoms have maintained, over the past 2 months. The pain does radiate to the back. Food does aggravate her symptoms. Alleviating factors include: none. The patient was seen by her primary care physician. Angeli underwent an ultrasound. These tests demonstrated cholelithiasis. The patient is referred for evaluation and treatment. The patient is being seen by me today at the request of Dr. Mariano Pearce DO for my opinion and advice regarding Calculus of gallbladder with acute on chronic cholecystitis without obstruction (primary encounter diagnosis) Right upper quadrant pain. SIGNIFICANT MEDICAL PROBLEMS: PAST MEDICAL HISTORY PAST MEDICAL HISTORY Diagnosis Date Advance care planning 04/23/2022 daughter Rebecca Case is medical POA per patient Allergic rhinitis, cause unspecified Allergic rhinitis Arthritis Benign hypertensive heart disease without heart failure BPPV (benign paroxysmal positional vertigo) Chronic kidney disease (CKD) stage G3a/A2, moderately decreased glomerular filtration rate (GFR) between 45-59 mL/min/1.73 square meter and albuminuria creatinine ratio between 30-299 mg/g (HCC) Diverticulitis Esophageal reflux Fatty liver Fatty liver Fibromyalgia Gastric polyp 07/04/2014 Dr. Spence, needs repeat EGD in 01/01 Gout right great toe Hernia of other specified sites of abdominal cavity without mention of obstruction or gangrene HIATAL Hypertension IBS (irritable bowel syndrome) Irritable bowel syndrome Leiomyoma of uterus Other and unspecified hyperlipidemia PONV (postoperative nausea and vomiting) 03/11/2018 Renal calculi Snoring Type II or unspecified type diabetes mellitus without mention of complication, not stated as uncontrolled Unspecified hemorrhoids without mention of complication Hemorrhoids Unspecified hypothyroidism OPERATIONS: PAST SURGICAL HISTORY PAST SURGICAL HISTORY Procedure Laterality Date APPENDECTOMY APPENDECTOMY COLONOSCOPY FLX DX W/COLLJ SPEC WHEN PFRMD 07/04/14 Colonoscopy, Dr. Spence ESOPHAGOGASTRODUODENOSCOPY TRANSORAL DIAGNOSTIC 07/04/14 EGD, Dr. Spence ESOPHAGOGASTRODUODENOSCOPY TRANSORAL DIAGNOSTIC 05/29/15 EGD LAPS ABD PRTMANDOMENTUM DX W/WO SPEC BR/WA SPX 1989 Laparoscopy and scar tissue seen LIG/TRNSXJ FLP TUBE ABDL/VAG APPR UNI/BI Tubal ligation PAST SURGICAL HISTORY OF [place]PE[place] TUNNEL/BILATERAL PAST SURGICAL HISTORY OF 1969 exploratory lap and left salpingectomy for bad infection POLYPECTOMY SNARE STIFF WIRE 07/04/14 gastric TONSILLECTOMY HX TONSILLECTOMY PRIMARY/SECONDARY Tonsillectomy VAGINAL HYSTERECTOMY VAGINAL HYSTERECTOMY UTERUS 250 GM/< 03/2018 Hysterectomy, vaginal CURRENT MEDICATIONS: CURRENT MEDICATIONS Current Outpatient Medications Medication Sig Dispense Refill LORazepam (ATIVAN) 2 mg tab Take 1 tablet by mouth at bedtime as needed for up to 30 days. 30 tablet 1 insulin lispro (HUMALOG KWIKPEN INSULIN) 100 unit/mL Inject 12 units with breakfast, 16 units with lunch, and 14 units with dinner + sliding scale insulin (1 unit for every 50 >150 pts). Gets through [employer]. Blood-Glucose Meter Use to check blood sugar daily 1 Each 0 blood sugar diagnostic (BLOOD GLUCOSE TEST) test strip Use to check blood sugar four times daily 400 Each 3 Lancets lancets Use to check blood sugar four times daily 400 Each 3 citalopram (CELEXA) 20 mg tablet TAKE 1 TABLET DAILY 90 tablet 3 omega-3 DHA-EPA (FISH OIL) 1,200 (144-216) mg capsule Take 1 capsule by mouth once daily. metoprolol tartrate, short acting, (LOPRESSOR) 100 mg tablet TAKE 1 TABLET TWICE A DAY 180 tablet 3 insulin glargine (LANTUS SOLOSTAR, BASAGLAR KWIKPEN) 100 unit/mL (3 mL) Inject 52 units SQ in the AM and 52 units SQ in the evening. Basaglar - through [facility]. 45 Each 2 Insulin [place], Disposable, (BD ULTRA-FINE PATRICIO PEN NEEDLE) 32 gauge x 5/32 Use 4 pen needles daily with Basaglar and Humalog 360 Each 3 rosuvastatin (CRESTOR) 5 mg tablet take 1 tablet by mouth at bedtime 90 tablet 5 enalapril (VASOTEC) 20 mg tablet Take 1 tablet by mouth twice daily. 180 tablet 3 levothyroxine (SYNTHROID) 112 mcg tablet Take 1 tablet by mouth PO daily in AM. For thyroid. 90 tablet 3 ezetimibe (ZETIA) 10 mg tablet Take 1 tablet by mouth once daily. For cholesterol 90 tablet 3 omeprazole (PRILOSEC) 40 mg capsule TAKE 1 CAPSULE DAILY 90 capsule 3 flash glucose scanning reader ([employer] BETSEY 14 DAY READER) Use to check blood sugar as directed. 1 Eac (more content not included)... [facility] OPERATIVE NOon 06-04-2023 OPERATIVE NO HNO ID: [id number] Author: Rola Muro MD Service: General Surgery Author Type: Physician Type: Operative Report Filed: 06/04/2023 9:37 AM Note Text: OPERATIVE/PROCEDURE REPORT LOG ID: [id number] SURGERY/PROCEDURE DATE: 06/04/2023 INCISION/PROCEDURE START TIME: 8:53 AM INCISION CLOSE/PROCEDURE END TIME: 9:32 AM SURGEON(S)/PROCEDURALIST(S) AND JUKEBOX ROUTE DRIVER(S): Surgeon(s) and Role: * Rola Muro MD - Primary Physician Line Crew Supervisor: Nicole Solorzano PA-C SURGERY/PROCEDURE(S): Laparoscopically cystectomy with intraoperative cholangiograms ANESTHESIA: General SURGERY/PROCEDURE DETAILS: Patient was brought into the operating room. Placed in supine position. Under excellent general anesthetic the abdomen was sterilely prepped and draped in the usual fashion. Local was injected supraumbilically decision was made dissection was carried down to the fascia the fascia was grasped with a [place] varies needle was placed inside the abdomen the abdomen was insufflated to 15 torr a 10/12 trocar was placed without difficulty. Patient was placed on the head up and rotated to the left position. A subxiphoid #5 trocars placed, inferior to this another #5 trocar was placed, laterally a #5 trocar was placed. All of these were placed under direct visualization without injury to underlying structures. Fundus of the gallbladder was grasped and retracted in the cephalad direction. I had a spillage of some bile but no spillage of stones and I was able to retrieve all the bile that was spilled. I dissected out the cystic duct after grasping the infundibulum and retracting it laterally. A noah was made in the cystic duct. Angiocatheter was placed through the skin cholangiogram catheter through this cholangiogram was shot showing no stones within the duct and the contrast to go into the duodenum without difficulty. I placed 2 hemoclips on the cystic duct after removing the cholangiogram catheter I cut the cystic duct identified the cystic artery placed hemoclips proximally distally and ligated the artery. I deliver the gallbladder from the gallbladder bed with use of electrocautery. I did place another Hem-o-sandra clip on the posterior branch of the cystic artery. I placed a specimen a specimen bag and delivered it through the umbilical port without difficulty. I reinflated the abdomen and inspected the liver bed good in the stasis was noted. I irrigated above the liver make sure no bile was left. I remove the trocars under direct visualization good was stasis was noted. I closed the fascia of the umbilical port with a dnikbu-mi-oowub stitch of 0 Vicryl. Skin incisions were closed with subcuticular stitches of 4-0 Monocryl. Steri-Strips were applied sterile dressings were applied and the patient tolerated procedure well. Nicole Solorzano PA-C was my pharmacist assistant. She assisted with retraction, visualization and performed skin closure. No additional surgeons or qualified residents were available. PRE-OP/PRE-PROCEDURE DIAGNOSIS: Cholelithiasis, right upper quadrant abdominal pain POST-OP/POST-PROCEDURE DIAGNOSIS: Same as Preop ESTIMATED BLOOD LOSS: < 15 mls SPECIMENS: Gallbladder IMPLANTABLE DEVICES: NONE DRAINS: None COMPLICATIONS: None CLOSURE TECHNIQUE: Primary PARTICIPATION IN SURGERY/PROCEDURE: I/primary surgeon/proceduralist performed the procedure with assistance. SIGNATURE: Rola Muro III, MD PATIENT NAME: Angeli Ramirez Case DATE: June 04, 2023 TIME: 9:26 AM Normal [facility] SURGICAL PATHOLOGYon 023 CASE REPORT Normal [facility] Comment on above: Order Comment: Speci men Type: TISSUE SPECIMENOrdering Facility: [facility] Address: [address] [place] [address] Result Comment: Surg ical Pathology Report Case: [id number] Authorizing Provider: Rola Muro MD Collected: 06/04/2023 09:00 AM Ordering Location: [facility] Received: 06/04/2023 10:34 AM Pathologist: Stevenson Tang MD Specimen: GALLBLADDER Performed By: #### S ####[facility] LABCLIA [id number] [address] STATES OF [facility] CLINICAL HISTORY Normal [facility] Comment on above: Order Comment: Speci men Type: TISSUE SPECIMENOrdering Facility: [facility] Address: [address] [place], [place] [id number] Result Comment: Pre- op diagnosis: Calculus of gallbladder with acute on chronic cholecystitis without obstruction [K80.12] Right upper quadrant pain [R10.11] Performed By: #### S ####[facility] LABCLIA [id number] [address] FINAL DIAGNOSIS [facility] Comment on above: Order Comment: Speci men Type: TISSUE SPECIMENOrdering Facility: [facility] Address: [address] [place], [place] [phone] Result Comment: A. G allbladder, cholecystectomy: - Chronic cholecystitis with cholelithiasis. KF/ 06/06/2023 Performed By: #### S ####[facility] LABCLIA [id number] [address] STATES OF [place] FINAL PERFORMING LAB Normal [facility] Comment on above: Order Comment: Speci men Type: TISSUE SPECIMENOrdering Facility: [facility] Address: [address] [address] Result Comment: Diag nostic interpretation performed at [place] [address] CLIA# [id number] Topper Packer: Antonino Fink M.D. Performed By: #### S ####[facility] [id number] [address] STATES OF [place] GROSS DESCRIPTION A. GALLBLADDER Normal [facility] Comment on above: Order Comment: Speci men Type: TISSUE SPECIMENOrdering Facility: [facility] Address: [address] [place] [address] Result Comment: Rece ived in formalin designated gallbladder is a gallbladder that measures 7.2 x 2.7 x 1 cm. The serosal surface is pink-garcía and smooth. The cystic duct measures 0.6 cm in length and 0.3 cm in diameter. Within the gallbladder a single yellow round calculus that measure 0.3 cm in greatest dimension. The calculus is impacting the cystic duct. Also within the gallbladder is a garcía viscous bile. The gallbladder mucosa is garcía-green and velvety with a wall thickness of 0.1 cm. Alcohol Rubber sections are submitted in 1 cassette. WE June 04, 2023 2:21 PM Gross examination performed at [facility], [address] [place] [address] Performed By: #### S ####[facility] [id number] [place] [address] [place] CBC W Auto Differential pane l (Bld)on 05-21-2023 Basophils (Bld) [#/Vol] 0.05 10*3/uL <0.11 k/uL [facility] Basophils/100 WBC (Bld) 0.5 % [facility] Differential cell count method Nom (Bld) Auto [facility] Eosinophils (Bld) [#/Vol] 0.26 10*3/uL <0.46 k/uL [facility] Eosinophils/100 WBC (Bld) 2.7 % [facility] Erythrocyte distribution width (RBC) [Ratio] 13.1 % 11.5 - 15.0 % [facility] Hematocrit (Bld) [Volume fraction] 37.4 % 36.0 - 46.0 % [facility] Hemoglobin (Bld) [Mass/Vol] 11.8 g/dL 11.5 - 15.5 g/dL [facility] Immature granulocytes (Bld) [#/Vol] <0.10 k/uL [facility] Immature granulocytes/100 WBC (Bld) 0.2 % [facility] Lymphocytes (Bld) [#/Vol] 2.44 10*3/uL 1.00 - 4.00 k/uL [facility] Lymphocytes/100 WBC (Bld) 24.9 % [facility] MCH (RBC) [Entitic mass] 29.4 pg 26.0 - 34.0 pg [facility] MCHC (RBC) [Mass/Vol] 31.6 g/dL 30.5 - 36.0 g/dL [facility] MCV (RBC) [Entitic vol] 93.3 fL 80.0 - 100.0 fL [facility] Monocytes (Bld) [#/Vol] 0.60 10*3/uL <0.87 k/uL [facility] Monocytes/100 WBC (Bld) 6.1 % [facility] Neutrophils (Bld) [#/Vol] 6.41 10*3/uL 1.45 - 7.50 k/uL [facility] Neutrophils/100 WBC (Bld) 65.6 % [facility] Nucleated RBC (Bld) [#/Vol] <0.01 k/uL [facility] Nucleated RBC/100 WBC (Bld) [Ratio] 0.0 /100 WBC [facility] Platelet mean volume (Bld) [Entitic vol] 12.1 fL 9.0 - 12.7 fL [facility] Platelets (Bld) [#/Vol] 160 10*3/uL 150 - 400 k/uL [facility] RBC (Bld) [#/Vol] 4.01 10*6/uL 3.90 - 5.20 m/uL [facility] WBC (Bld) [#/Vol] 9.78 10*3/uL 3.70 - 11.00 k/uL [facility] Comprehensive metabolic 2000 panelon 05-21-2023 Albumin [Mass/Vol] 4.1 g/dL 3.9 - 4.9 g/dL [facility] ALP [Catalytic activity/Vol] 142 U/L High 34 - 123 U/L [facility] ALT [Catalytic activity/Vol] 37 U/L 7 - 38 U/L [facility] Anion gap [Moles/Vol] 12 mmol/L 9 - 18 mmol/L [facility] AST [Catalytic activity/Vol] 46 U/L High 13 - 35 U/L [facility] Bilirubin [Mass/Vol] 0.4 mg/dL 0.2 - 1.3 mg/dL [facility] Calcium [Mass/Vol] 9.9 mg/dL 8.5 - 10. 2 mg/dL [facility] Chloride [Moles/Vol] 103 mmol/L 97 - 105 mmol/L [facility] CO2 [Moles/Vol] 23 mmol/L 22 - 30 mmol/L [facility] Creatinine [Mass/Vol] 1.01 mg/dL High 0.58 - 0.96 mg/dL [facility] Estimated Glomerular Filtration Rate 60 mL/min/1.73m >=60 mL/min/1.7 3m [facility] Glucose [Mass/Vol] 139 mg/dL High 74 - 99 mg/dL [facility] Potassium [Moles/Vol] 4.9 mmol/L 3.7 - 5.1 mmol/L [facility] Protein [Mass/Vol] 7.0 g/dL 6.3 - 8.0 g/dL [facility] Sodium [Moles/Vol] 138 mmol/L 136 - 144 mmol/L [facility] Urea nitrogen [Mass/Vol] 16 mg/dL 7 - 21 mg/dL [facility] No Panel Informationon 04-23 [facility] HIRAL SCREENINGon 02-24-[address] [facility] [address] BRAIN WO IVCONon 02-11-20 [facility] HIRAL SCREENINGon 05-10-2022 [facility] XR Chest PA and Lateralon IMPRESSION: No acute pulmonary disease identified. Cardiomegaly. Manager Professional Development: SERGE Transcribe Date/Time: Dec 10 2021 2:52P Dictated by : VENU SPIVEY MD This examination was interpreted and the report reviewed and electronically signed by: VENU SPIVEY MD on Dec 10 2021 2:52PM [facility] DIVISION OF RADIOLOGY * * *Final Report* * * DATE OF EXAM: Dec 10 2021 2:51PM WOX 5291 - XR CHEST 2V FRONTAL/LAT / PROCEDURE REASON: Cough * * * * Physician Interpretation * * * * EXAMINATION: CHEST RADIOGRAPH (2 VIEW FRONTAL & LATERAL) CLINICAL HISTORY: Cough MQ: XC2_6 EXAM DATE/TIME: 12/10/2021 2:51 PM COMPARISON: No relevant prior studies available. RESULT: Lines, tubes, and devices: None. Lungs and pleura: No consolidation. No lung mass. No pleural effusion. No pneumothorax. Cardiomediastinal silhouette: Enlargement of the heart. Mediastinal silhouette is within normal limits. Atherosclerotic calcifications involving the aortic arch. Bones and soft tissues: Unremarkable. DIVISION OF RADIOLOGY Provider, [facility] Mirtha [facility] - 12/10/2021 * * *Final Report* * * DATE OF EXAM: Dec 10 2021 2:51PM WOX 5291 - XR CHEST 2V FRONTAL/LAT / PROCEDURE REASON: Cough * * * * Physician Interpretation * * * * EXAMINATION: CHEST RADIOGRAPH (2 VIEW FRONTAL & LATERAL) CLINICAL HISTORY: Cough MQ: XC2_6 EXAM DATE/TIME: 12/10/2021 2:51 PM COMPARISON: No relevant prior studies available. RESULT: Lines, tubes, and devices: None. Lungs and pleura: No consolidation. No lung mass. No pleural effusion. No pneumothorax. Cardiomediastinal silhouette: Enlargement of the heart. Mediastinal silhouette is within normal limits. Atherosclerotic calcifications involving the aortic arch. Bones and soft tissues: Unremarkable. IMPRESSION IMPRESSION: No acute pulmonary disease identified. Cardiomegaly. Manager Professional Development: PSCB Transcribe Date/Time: Dec 10 2021 2:52P Dictated by : VENU SPIVEY MD This examination was interpreted and the report reviewed and electronically signed by: VENU SPIVEY MD on Dec 10 2021 2:52PM EST [facility] Radiology Study observation (narrative) [facility] XR Chest PA and LateralOrder ed By: [facility] Provider on 12-10-2021 [facility] ANES Beryl 03-19-2018 ANES POST HNO ID: [id number] thor: Chandler Lindo PService: Pain ManagementAuthor Type: AnesthesiologistType: Anesthesia PostOpFiled: 03/19/2018 12:43 PMNote Text:POST ANESTHESIA EVALUATION NOTESERVICE DATE: 03/19/2018SERVICE TIME: 12:43 PMDOB: 1950Vitals: 03/19/1811Temp: 37.5 ?C (99.5 ?F) 36.3 ?C (97.3 ?F) 03/19/1812BP: 121/79 136/63 127/69 138/71 03/19/1812Pulse: 72 73 72 73 03/19/1812Resp: 21 16 17 15 03/19/1812SpO2: 100% 94% 97% 93%Validated Vital Signs: YesPOST ANES STATUS: No apparent anesthetic complications. The patient isappropriately hydrated with stable respiratory and cardiovascular status.Patient has safe and adequate airway control. The patient has appropriatepain relief and no significant post operative nausea or vomiting. Thepatient has achieved baseline mental status.Further assessment by Anesthesia Service: NoneOther Remarks:SIGNATURE: Chandler Lindo MD PATIENT NAME: Angeli Ramirez CaseDATE: March 19, 2018 : 12:43 PM PAGER/CONTACT #: [facility] ANES PREOPon 03-19-2018 ANES PREOP HNO ID: [id number] thor: Chandler Bardaleservice: Pain ManagementAuthor Type: AnesthesiologistType: Anesthesia PreOpFiled: 03/19/2018 9:32 AMNote Text:REGIONAL ANESTHESIOLOGY DAY OF SURGERY NOTEPATIENT NAME: Angeli Ramirez CaseMRN: [id number]: 2Procedure(s) (LRB):LAPAROSCOPIC REMOVAL PELVIC MASS (N/A)LAPAROSCOPY WITH OOPHORECTOMY AND SALPINGECTOMY (Bilateral)Surgeon(s):Adrianna Kingston AnthonyLi, Yi (Fel)Estimated body mass index is 29.76 kg/m? as calculated from the following: Height as of 03/09/18: 160 cm (5' 3). Weight as of 03/09/18: 76.2 kg (168 lb).ASA Class: 3Adequate NPO status: YesAllergies:ALLERGIESAllergen Reactions- Crestor [Rosuvastat* Other: See Comments Legs achy- Niacin Itching- Erythromycin GI Upset- Latex reddness- Lescol [Fluvastatin* GI Upset- Lipitor [Atorvastat* Intolerance Muscle aching- Naprosyn [Naproxen] uncertain- Zxbbkhg-Goq-Uya Red* Intolerance- Sulfa (Sulfonamide * Hives- Vibramycin [Doxycyc* GI Upset- Vioxx [Rofecoxib] Swelling- Zocor [Simvastatin] uncertainAirway Assessment: MP 1; Neck ROM: Full ROM without neurologic symptoms;Airway Evaluation: No significant abnormalitiesDentition: Teeth intactSymptoms of Sleep Apnea: DeniesMost recent lab results:Hemoglobin 12.0 03/09/2018Hematocrit 38.6 03/09/2018Potassium 4.7 03/09/2018Platelet Count 174 03/09/2018Creatinine 1.32 03/09/2018EKG:normal EKG, normal sinus rhythmVitals: 903BP: 122/66Pulse: 74Resp: 18Temp: 37.5 ?C (99.5 ?F)TempSrc: Temporal ArterySpO2: 98%Previous Anesthesia: No history of adverse event PONV Family history ofanesthetic problems: NoneAdditional Physical Exam:Lungs: Lungs clear to auscultation. Good diaphragmatic excursion.Cardiac: Normal S1 and S2; no rubs, no murmurs and no gallopsAdditional pertinent findings: obeseOther Medical Problems/ Important Considerations:Denies chest pain and SOB with exertion.Negative stress test (> 1 year) AND asymptomaticGERD well controlled with no positional symptoms.Chronic Beta Pola medication administered within 24 hours: YesAnesthetic risks, benefits, alternatives, personnel and consent discussed:YesPatient agrees to proceed: YesBlood Products: Will accept Blood/Blood ProductsAnesthetic Plan: General ETT; Standard ASA MonitorsPain Management Plan: ROOT ProtocolEPIC Chart ReviewACTIVE PROBLEM LISTAllergic Rhinitis, Cause UnspecifiedEssential Hypertension, BenignDiabetes Mellitus Type 2, Uncontrolled, Without Complications (Hcc)HyperlipidemiaOther Diseases of Lung, Not Elsewhere ClassifiedHypothyroidismSymptom atic Menopausal Or Female Climacteric StatesGerd (Gastroesophageal Reflux Disease)Diverticulosis of ColonKidney StoneElevated LftsUnspecified Pruritic DisorderPostmenopausal Atrophic VaginitisDisorder of Bone and Cartilage, UnspecifiedBronchitisInternal Hemorrhoids Without Mention of ComplicationRight Lower Quadrant Abdominal PainDiverticulitis of Large IntestineCkd (Chronic Kidney Disease)Chronic Kidney Disease (Ckd) Stage G3a/A2, Moderately Decreased GlomerularFiltration Rate (Gfr) Between 45-59 Ml/Min/1.73 Square Meter andAlbuminuria Creatinine Ratio Between 30-299 Mg/GObesity, Class I, Bmi 30-34.9Need for Pneumococcal VaccinationAtrophic VaginitisAdjustment InsomniaDysuriaYeast VaginitisPelvic MassPonv (Postoperative Nausea and Vomiting)PAST MEDICAL HISTORYDiagnosis Date- Allergic rhinitis, cause unspecified Allergic rhinitis- Benign hypertensive heart disease without heart failure- BPPV (benign paroxysmal positional vertigo)- Chronic kidney disease (CKD) stage G3a/A2, moderately decreasedglomerular filtration rate (GFR) between 45-59 mL/min/1.73 square meterand albuminuria creatinine ratio between 30-299 mg/g- Diverticulitis- Esophageal reflux- Fatty liver- Fibromyalgia- Gastric polyp 07/04/14 Dr. Spence, needs repeat EGD in 01/01- Gout right great toe- Hernia of other specified sites of abdominal cavity without mention ofobstruction or gangrene HIATAL- Hypertension- IBS (irritable bowel syndrome)- Irritable bowel syndrome- Leiomyoma of uterus- Other and unspecified hyperlipidemia- PONV (postoperative nausea and vomiting) 03/11/2018- Renal calculi- Snoring- Type II or unspecified type diabetes mellitus without mention ofcomplication, not stated as uncontrolled- Unspecified hemorrhoids without mention of complication Hemorrhoids- Unspecified hypothyroidismPAST SURGICAL HISTORYProcedure Laterality Date- APPENDECTOMY- COLONOSCOP W/ OR W/O BRSH SPEC 07/04/14 Colonoscopy, Dr. Spence- EGD W/O OR W/BRUSH/WASH 07/04/14 EGD, Dr. Spence- EGD W/O OR W/BRUSH/WASH 05/29/15 EGD- L'SCOPE DX W/WO BRUSHINGS/WASHINGS 1989 Laparoscopy and scar tissue seen- LIGATE FALLOPIAN TUBE Tubal ligation- PAST SURGICAL HISTORY OF CARPEL TUNNEL/BILATERAL- PAST SURGICAL HISTORY OF 1969 exploratory lap and left salpingectomy for bad infection- POLYPECTOMY SNARE STIFF WIRE 07/04/14 gastric- REMOVAL OF TONSILS,<12 Y/O TonsillectomyFAMILY HISTORYProblem Relation Age of Onset- Diabetes Father- Hypertension Father- Lipids Father- Hypertension Mother- DEMENTIA [OTHER] Mother- Cancer Maternal Grandmother gallbladderSocial History:Social HistorySubstance Use Topics- Smoking status: Never Smoker- Smokeless tobacco: Never Used- Alcohol use NoNo current facility-administered medications on file prior to encounter.Current Outpatient Prescriptions on File Prior to Encounter:levothyroxine (SYNTHROID) 112 mcg tablet Take 1 tablet by mouth dailybefore breakfast.Hydrochlorothiazide 12.5 mg capsule Take 1 capsule by mouth once daily.metoprolol tartrate, short acting, (LOPRESSOR) 100 mg tablet Take 1 tabletby mouth twice daily.enalapril (VASOTEC) 20 mg tablet Take 1 tablet by mouth once daily.citalopram hydrobromide (CELEXA) 10 mg tablet Take 1 tablet by mouth oncedaily.Omeprazole 40 mg capsule Take 1 capsule by mouth once daily.pravastatin (PRAVACHOL) 20 mg tablet Take 1 tablet by mouth every otherday.Insulin [place], Disposable, (PEN NEEDLE) 32 gauge x 5/32 ndle Use oncedaily with Victoza and Toujeoaspirin, enteric coated (ASPIR-LOW) 81 mg EC tablet Take 1 tablet by mouthonce daily.COMPOUNDED PRESCRIPTION BLOOD GLUCOSE METER OF CHOICE TESTING 1-2 TIMESDAILY DX;EII.65Lancets lancets PT IS TO TEST BLOOD SUGAR 1-2 TIMES PER DAYDX:EII.65alcohol swabs padm Apply 1 application to affected area twice daily. USETO CLEANSE ARE FOR B/S TESTING 1-2 TIMES PER DAYDX:EII.65Blood-Glucose Meter (RELION ALL-IN-ONE METER) monitoring kit 1 Each asneeded.blood sugar diagnostic (RELION ULTIMA) test strip Use as instructedcholecalciferol (VITAMIN D-3) 2,000 unit tablet Take 2,000 Units by mouthonce daily.Blood-Glucose Meter (GMATE VOICE METER) [facility] 1 Kit as directed. DM2,250.00, non insulin dependentlancets (GMATE LANCETS) 30 gauge misc DM2, 250.00, non insulin dependent,testing 1-2 times a dayblood sugar diagnostic (ONE TOUCH ULTRA TEST) test strip Use asinstructed, once daily, DX: 250.02, Insulin Dep: Nocetirizine hcl(ALL DAY ALLERGY 10 MG TAB) as directedInpatient medications reviewed in [facility].I have interviewed and examined the patient. I have reviewed the medicalrecord and/or the pre-anesthesia evaluation, pertinent labs, and testresults.Significant changes in the patient's condition since the History andPhysical, not otherwise documented in primary service progress notes: NoThis contains updated information obtained within 48 hours ofSurgery/Procedure.SIGNATURE: Chandler Lindo MD PATIENT NAME: Angeli Ramirez CaseDATE: March 19, 2018 : 9:12 AM PAGER/CONTACT #: [facility] BRIEF OP NOTon 03-19-2018 BRIEF OP NOT HNO ID: [id number] thor: Nikos Hankinservice: Gynecology OncologyAuthor Type: PhysicianType: Brief Op NoteFiled: 03/19/2018 11:18 AMNote Text:BRIEF OP NOTELOG ID: [id number]/Procedure Date: 03/19/2018Incision/Procedure Start Time: 10:07 AMIncision Close/Procedure End Time:Surgeon(s)/Proceduralist(s ) and Line Crew Supervisor(s):Surgeon(s) and Role: * Curry Kingston - Primary * Nikos Gentile - Fellow * Margoth Lopez ([place]) - Resident - AssistingProcedure(s): BSO, right salpingectomyAnesthesia: GeneralFindings: normal left ovary and right tube. Right ovary solid andapproximately 4x3 cm. During extraction in bag, fibroma like elementsextruded. Adhesions of left ovary to pelvic side wall. Absent left tube.Fecolith just above bladder peritoneal reflection. No other findingsintra-abdominally. Frozen: sex cord stromal, 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 Inhibin Aand B collected intra-op after frozen.Estimated Blood Loss: 25 mlsSpecimens: ovaries, right ovaryComplications: NonePre-Op/Pre-Procedure Diagnosis: ovarian cystPost-Op/Post-Procedure Diagnosis: Pelvic mass [R19.00]SIGNATURE: Nikos Gentile MD PATIENT NAME: Angeli Ramirez CaseDATE: March 19, 2018 : 11:03 AM PAGER/CONTACT #: [phone] [facility] Confirm Blood Typeon 018 ABO/RH(D) Negative [facility] Comment on above: Performed By: #### C ONABO ####[facility] [place], [place] [phone] HISTORY PHYSICALon 8 HISTORY PHYSICAL HNO ID: [id number] thor: Ambrocio Taylor (Res)Service: GynecologyAuthor Type: ResidentType: HANDPFiled: 03/19/2018 9:24 AMNote Text:UPDATED HISTORY AND PHYSICAL EXAMINATIONSERVICE DATE: 03/19/2018SERVICE TIME: 9:21 AMPHYSICAL EXAM MUST BE COMPLETED ON ADMISSIONThe History and Physical (completed in the past 30 days) has been reviewedand the patient has been examined. The contents accurately reflect thepatient's condition with the following additions or revisions since theHANDP was completed.Examination indicates the following changes were noted:67yo with right ovarian mass presenting for scheduled laparoscopicexcision of pelvic mass.H/o HTN, CKD, T2DM, hypothyroidism, BPPV, diverticulitis, fibroid uterusH/o appy, TL, L salpingectomyConsent reviewed, all questions answered. Will proceed with scheduledsurgery.This HANDP can be found in the Electronic Medical Record dated 03/09/2018.SIGNATURE: Ambrocio Taylor MD PATIENT NAME: Angeli Ramirez CaseDATE: March 19, 2018 : 9:21 AM PAGER: [phone] [facility] Inhibin Aon 03-19-2018 Inhibin A 3.4 pg/mL [facility] Comment on above: Result Comment: (NOT E)INTERPRETIVE INFORMATION: Inhibin-A (Dimer)Normal Cycling Females:Early Follicular Phase (-14 to -10):.. 1.8-17.3 pg/mLMid Follicular Phase (-9 to -4):...... 3.5-31.7 pg/mLLate Follicular Phase (-3 to -1):..... 9.8-90.3 pg/mLMid Cycle (Day 0):.................... 16.9-91.8 pg/mLEarly Luteal (1 to 3):................ 16.1-97.5 pg/mLMid Luteal (4 to 11):................. 3.9-87.7 pg/mLLate Luteal (12 to 14):............... 2.7-47.1 pg/mLIVF-Peak Levels:...................... 354.2-1690.0 pg/mLPCOS-Ovulatory:....................... 5.7-16.0 pg/mLPostmenopausal:....................... less than 6.9 pg/mLNormal Males:......................... less than 2.1 pg/mLThis assay is performed using the Synerscopeel DXIassay. Values may be elevated during normal .Preeclampsia, Down syndrome, and some cancers may increaseInhibin-A values.Performed by [facility],[address] [place] [address] cfn.[employer], Floyd Mendoza MD, Lab. Director Performed By: #### I FRANCOIS INHIBB ####[facility] [place] [address] [phone] Inhibin Bon 03-19-2018 Inhibin B 33 pg/mL Normal [facility] Comment on above: Result Comment: (NOT E)INTERPRETIVE INFORMATION: Inhibin BMALE:0-6 years ................. 40 - 630 pg/mL7-10 years ................ 35 - 170 pg/mL11-18 years ............... 50 - 475 pg/mL19-45 years ............... 40 - 450 pg/mLGreater than or equal to 46 years ........ less than 200 pg/mLFEMALE:0-6 years ................. less than 73 pg/mL7-10 years ................ less than 130 pg/mL11-12 years ............... less than 186 pg/mL13-18 years ............... less than 360 pg/mLPremenopausal ............. less than 290 pg/mLFollicular phase........... 10 - 290 pg/mLPostmenopausal ............ less than or equal to 16 pg/mLThis test is performed using the [place] [place] Inhibin B ELISAkit. Values obtained with different methodologies or kits cannotbe used interchangeably.Test developed and characteristics determined by [employer]. See Compliance Statement D: [employer]/CSPerformed by [facility],[address] [place] [address] iob.[employer], Floyd Mendoza MD, Lab. Director Performed By: #### I FRANCOIS, INHIBB ####[facility] [place] [address] [phone] OPERATIVE NOon 03-19-2018 OPERATIVE NO HNO ID: [id number] thor: Lizz Kingstonice: Gynecology OncologyAuthor Type: PhysicianType: Operative ReportFiled: 03/19/2018 11:04 PMNote Text:OPERATIVE/PROCEDURE REPORTLOG ID: [id number]/PROCEDURE DATE: 03/19/2018INCISION/PROCEDURE START TIME: 10:07 AMINCISION CLOSE/PROCEDURE END TIME: 11:11 AMSURGEON(S)/PROCEDURALIST(S) AND JUKEBOX ROUTE DRIVER(S):Surgeon(s) and Role: * Curry Kingston - Primary * Nikos Gentile - Fellow * SonAmbrocio (Res) - Resident - AssistingNo Additional StaffSURGERY/PROCEDURE(S):Lapar oscopic bilateral salpingo-oophorectomy??Anesthes ia: General??Operative Findings:4-6 mass in the right ovary, otherwise normal left ovary and tubes, normaluterus, normal pelvic and abdominal surveys, frozen c/w sex-cord stromaltumor.??Procedure Details:?The patient was taken to the operating room and was placed on theoperating room table, general anesthesia with endotracheal intubation wasinitiated, and oral gastric tube was placed, she was then placed in dorsallithotomy position, attention was made to avoid any pressure injuries, Ievaluated the ankle and hip joints bilaterally after positioning the lowerextremity, there was adequate mobility of the joints and no evidence ofpressure on the femoral or common peroneal nerves. She was then preppedand draped in a normal sterile fashion and a de jesus catheter was inserted.We then proceeded with placement of trochars. The first trocar was placedin the left upper quadrant region and it was 5mm. Intraperitoneal cavitywas initially insufflated with CO2 gas using the Veress needle. Then thetrocar was inserted into the peritoneal cavity. Subsequently we placed two5 mm trochars one at each lower quadrants and then 12 mm trochar at theperiumbilical region. Intraperitoneal cavity was inspected carefully withabove findings. Then the left pelvic sidewall was opened, the ureter wasidentified, mobilized laterally, then the left gonadal vessels wereidentified, ligated and cut. Similar procedure was done on the right side.The specimen was removed and sent to pathology. Hemostasis was excellent,pedicles were inspected.Trochars were removed. Fascia at 12?mm port was closed with 0-vicrylsuture. Skin was reapproximated. At the end of the operation sponge andneedle counts and instrument counts were correct x2. The patient toleratedthe procedure well and was transferred to the recovery room afterextubation.??Pre-Op/Pre-Pr ocedure Diagnosis:?Pelvic mass??Post-Op/Post-Procedure Diagnosis:?right ovarian mass??Estimated Blood Loss:?20?mls??Specimens:?left/r ight tubes and ovaries??Implantable Devices:?None??Drains:?None??Co mplications: None??I performed the procedure with assistance.SIGNATURE: Curry Kingston MD PATIENT NAME: Angeli Ramirez CaseDATE: March 19, 2018 : 11:02 PM PAGER/CONTACT #: [facility] PT EDon 03-19-2018 PT ED HNO ID: [id number] thor: Selina FeldmanRn), RNService: NursingAuthor Type: Registered NurseType: Patient EducationFiled: 03/19/2018 2:11 PMNote Text:PATIENT EDUCATION TOPIC: PROCEDURE / SURGERY: Procedure/Surgery:post opPost-op TeachingPATIENT NAME: Angeli Ramirez CaseMRN: [id number] LOCATION: FV OR POOL/FV OR POOLREADINESS TO LEARNCOGNITIVE ABILITY: Alert and orientedMOTIVATION TO LEARN: InterestedFAMILY SUPPORT: High - Very involved in pt careINSTRUCTION PROVIDED TO: Patient and Family memberPATIENT LEARNS BEST BY: Individual InstructionWritten Instruction - Hand-outsVerbal InstructionFACTORS AFFECTING LEARNING: NonePHYSICAL LIMITATIONS AFFECTING LEARNING: none but sleepyLEARNING RESPONSEPATIENT/FAMILY RESPONSE: Verbalizes understanding of: post opinstructionsElectronically Signed By: Selina Feldman RN [facility] PT ED HNO ID: [id number] thor: Gaby AbreuRn) Aimee RNService: NursingAuthor Type: Registered NurseType: Patient EducationFiled: 03/19/2018 9:21 AMNote Text:PATIENT EDUCATION TOPIC: hysterectomyPATIENT NAME: Angeli Ramirez CaseMRN: [id number] LOCATION: FV OR POOL/FV OR POOLREADINESS TO LEARNCOGNITIVE ABILITY: Alert and orientedMOTIVATION TO LEARN: InterestedFAMILY SUPPORT: Unable to assess - Family not presentINSTRUCTION PROVIDED TO: PatientPATIENT LEARNS BEST BY: Individual InstructionFACTORS AFFECTING LEARNING: NonePHYSICAL LIMITATIONS AFFECTING LEARNING: NoneLEARNING RESPONSEDIAGNOSIS: ADULT: Well AdultPATIENT/FAMILY RESPONSE: Verbalizes understanding of: QAA-JXAWQVNLUMCMPGBGCMMKE-Zwmvx ct action to take to follow pre-operative instructionsMETHOD OF INSTRUCTION: Individual instructionFOLLOW-UP PLAN: Complete - No need for follow-upINSTRUCTIONAL AIDS USED: NASUPPLEMENTAL MATERIAL PROVIDED TO PATIENT: NoneREFERRAL (RECOMMENDATION): NoneElectronically Signed By: BROOKE Dc EDUCATION TOPIC: PROCEDURE / SURGERY: Pre Procedure Teaching:Surgical Safety PrinciplesPATIENT NAME: Angeli Ramirez CaseMRN: [id number] LOCATION: OR POOL/FV OR POOLREADINESS TO LEARNCOGNITIVE ABILITY: Alert and orientedMOTIVATION TO LEARN: InterestedFAMILY SUPPORT: Unable to assess - Family not presentINSTRUCTION PROVIDED TO: PatientPATIENT LEARNS BEST BY: Individual InstructionFACTORS AFFECTING LEARNING: NonePHYSICAL LIMITATIONS AFFECTING LEARNING: NoneLEARNING RESPONSEDIAGNOSIS: ADULT: Well AdultPATIENT/FAMILY RESPONSE: Verbalizes understanding of: CEB-JVVYGBHPGBMEKLSFDQIQS-Sdwff ct action to take to follow pre-operative instructionsMETHOD OF INSTRUCTION: Individual instructionFOLLOW-UP PLAN: Complete - No need for follow-upINSTRUCTIONAL AIDS USED: NASUPPLEMENTAL MATERIAL PROVIDED TO PATIENT: NoneREFERRAL (RECOMMENDATION): NoneElectronically Signed By: Gaby Yu RN [facility] SURGICAL PATHOLOGYon 018 SURGICAL PATHOLOGY [facility]: [id number] Physician: CURRY KINGSTON MD FINAL DIAGNOSIS1. Ovary, right, excision - Luteinized diffuse adult-type granulosa celltumor.2. Ovary, left, excision - Adhesions and stromal hyperthecosis, negativefor neoplasm. 3. Fallopian tubes, right and left, excision - Negative for neoplasm. 4. Pelvic nodule, excision - Benign necrotic tissue consistent with aremotely infarcted epiploic appendage. Comment: The operative note identified the involved ovary as the rightovary. The grossly described 6.5 x 3.7 x 1.0 cm fragmented right ovarianmass is a variably cellular neoplasm characterized by vague nodules ofepithelioid to spindle shaped cells with abundant faintly stainingcytoplasm resembling lutein cells. Bands of spindle cells associated withhyaline fibrosis separate the nodules of luteinized cells. Some of thecells, especially the luteinized cells, have angular grooved nuclei.Reticulin stain and cytokeratin AE1/3 immunostain are performed to assistwith cell typing. The reticulin stain highlights the reticulin rich spindlecell zones and the reticulin poor luteinized nodules. Cytokeratin stain isfocally positive. These stains support the above interpretation. An exophytic surface component is not identified. Significant nuclearatypia is not identified. Mitoses are infrequent, up to two mitotic figuresper 10 high magnification flores. Tumor cell necrosis is not identified.Dr Mcfadden consulted. Laboratory Developed Test (LDT) Disclaimer:Positive and negative controls stain appropriately. Performancecharacteristics of immunohistochemical, immunofluorescent and chromogenicin-situ hybridization tests have been determined by [facility] [place] ([facility]) mario alberto manner consistent with CLIA requirements. One or more of these tests havenot been cleared or approved by the FDA. -[facility] is regulated under CLIA asqualified to perform high-complexity testing. These tests are used forclinical purposes. They should not be regarded as investigational or forresearch. CVB/srerwin 04/02/2018 SYNOPTIC REPORT OF OROURKE PATHOLOGIC FINDINGSBILATERAL FALLOPIAN TUBES AND BILATERAL OVARIES: Procedure: Bilateral salpingo-oophorectomySpecimen Integrity: Right ovary fragmented Left ovary not applicable Right fallopian tube not applicable Left fallopian tube not applicablePrimary Tumor Site: Right ovaryOvarian Surface Involvement: AbsentFallopian Tube Surface Involvement: Not applicableTumor Size: Greatest dimension: 6.5 cmHistologic Type: Granulosa cell tumor, adult typeHistologic Grade: Not applicable Two-tier grading System: Not applicableImplants: Not applicable/not sampledInvolvement of other tissues/organs: Not applicable Largest extrapelvic peritoneal focus, not applicable Peritoneal Ascitic Fluid, Not submitted/unknownTreatment Effect: No known presurgical therapyRegional Lymph Nodes: No nodes submitted or foundPathologic Stage Classification (pTNM, AJCC 8th ed)TNM Descriptors: Not applicablePrimary Tumor (pT): pT1: Tumor limited to ovaries (1 or both) or fallopian tube(s)Regional Lymph Nodes (pN): pNX: Cannot be assessedDistant Metastasis (pM): Not applicable/Not confirmed pathologically in this caseRepresentative Tumor Block: Specify: A3 Inés Robledo M.D.(Electronic Signature) SPECIMEN SUBMITTEDA: BILATERAL FALLOPIAN TUBES AND BILATERAL OVARIES CLINICAL DATAPELVIC MASSINTRAOPERATIVE CONSULT DIAGNOSISFSA1: Sex cord stromal tumor, 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 (Dr. Almaraz)Intraoperative diagnosis performed at [facility], [address] [place], [place] [address]WFUDR DESCRIPTIONA. Received fresh for frozen section diagnosis designated right tube andovary, left ovary and tube are multiple fragments of garcía to pink to yellowrubbery tissue weighing 25.5 grams and aggregating to 7.5 x 5 x 2 cm.Examination reveals two possible fallopian tubes present. One segment ofone of the fallopian tubes is attached to normal ovarian parenchyma whichmeasures 2 x 1.2 x 1 cm and weighs 1.5 grams. The external surface isfocally disrupted. The remainder of the tissue has a yellow rubbery cutsurface with white rubbery bands which aggregates to approximately 6.5 x3.7 x 1 cm. Also within this tissue is a garcía nodule measuring 1 cm ingreatest dimension that has a calcified shell. The one fallopian tube isintact measuring 4 cm in length by 0.5 cm in diameter. The fimbriated endhas a normal villous appearance which has been amputated and bisected.Sectioning of the fallopian tube reveals a pinpoint lumen. The secondfallopian tube is fragmented aggregating to 5.2 cm in length by 0.5 cm indiameter. A definitive fimbriated end is not grossly identified. Sectioningreveals a pinpoint lumen. Alcohol Rubber sections are submitted as follows:A1 frozen section yellow-white rubbery tissue, A2-A7 additionalyellow-white rubbery tissue, A8 normal ovarian parenchyma, A9 intactfallopian tube with fimbriated end, totally submitted, A10 fragmentedfallopian tube, cross-section, A11 calcified nodule, submitted afterdecalcification.Gross examination performed at [facility], [address], [place] [address]MX/lbk 03/19/2018Patient ID #: [id number] of Report: 04/06/2018Date of Procedure: 03/19/2018Date of Receipt: 03/19/2018Submitted by: CURRY KINGSTON MDLocation: FVORDiagnostic interpretation performed at [facility], [address] [facility] [address]. Normal [facility] Comment on above: Performed By: #### P ATHS ####[place] [address] Type and Screenon 03-19-2018 ABO/RH(D) Negative Normal [facility] Comment on above: Performed By: #### T SCR ####[place] [phone] Antibody Screen Negative Normal [facility] Comment on above: Performed By: #### T SCR ####[place] [phone] NURSING PROGon 03-13-2018 NURSING PROG HNO ID: [id number] thor: Jolly (Rn) ALTON Jenningservice: NeurosurgeryAuthor Type: Registered NurseType: Nursing Progress NoteFiled: 03/13/2018 10:59 AMNote Text:[facility] Nurse Progress NoteHistory AND Physical:[facility] Visit Date: 4-10-31Ujaykujn HANDP Date: N/AED visit Date: N/AOutside HANDP Scanned Date: N/ALabs Within Last 6 Months:CBC: 03-09BMP/CMP: 03-09HBA1C: 03-09UA: Date 03-09Urine C+S: 03-09 negImaging Within Last 12 Months:N/ACardiac Testing:EKG in last 12 Months: Yes: Date: 03-09-18, Comment: N/ABMI Percentile (PEDS):N/Rhina Assessment:N/AAnesthesia Review:N/ANarrative:N/APre-op Considerations:N/AChart Check:Levi Callahanripapito 2017 10:56 AM Normal [facility] OBSOLETEon 03-10-2018 OBSOLETE Refill (PREANME) CASE ,ANGELI Ramirez ( ) 1950 FDate Time Provider Department03/10/18 JULIETA JOE) PREANME During your visit today, we recorded the following information about you:Julieta Joe PA-C 03/10/2018 9:18 AM SignedDr. Pearce,Pt is scheduled for lap removal pelvic mass on 03/[address] Kingston.Ordered A1C at [facility] appt yesterday that came back at 9.6%. Previous was 9.3%(12/22/17).Please advise if pt is medically optimized for procedure.MASON Saeed-CElectronically SignedMariano Pearce DO 03/10/2018 9:27 AM SignedSee below, Please inform patient to increase her Toujeo to 20 units, Okay forsurgery from diabetes stand pointMark Singleton Indermuhmick VERDIN 03/10/2018 2:52 PM SignedLM for pt to return call to Triage nurse. Rx pending for med update.Mariano Pearce DO 03/11/2018 7:30 AM SignedUpdated rxRadha Singleton As of Date: 03/10/2018 Noted Allergy ReactionCRESTOR (ROSUVASTATIN CALCIUM) 11/29/2011 14 - Other: See Comments Comments: Legs achyNIACIN 10/02/2012 9 - ItchingERYTHROMYCIN 07/19/2005 8 - GI UpsetLATEX 04/02/2006 Comments: reddnessLESCOL (FLUVASTATIN SODIUM) 07/19/2005 8 - GI UpsetLIPITOR (ATORVASTATIN CALCIUM) 05/29/2010 5 - Intolerance Comments: Muscle achingNAPROSYN (NAPROXEN) 07/19/2005 Comments: xncsiailuPHCHNIU-ZUR-FJN REDUCTASE INHIBIT*06/23/2017 5 - IntoleranceSULFA (SULFONAMIDE ANTIBIOTICS) 07/19/2005 4 - HivesVIBRAMYCIN (DOXYCYCLINE CALCIUM) 07/19/2005 8 - GI UpsetVIOXX (ROFECOXIB) 07/19/2005 7 - SwellingZOCOR (SIMVASTATIN) 07/19/2005 Comments: uncertainDate Reviewed: 03/09/2018Reviewed by: Julieta Manuel) Jesús - Fully AssessedReason for Visit: Results, Lab [1201] Cmt: Hgb L3xUzblx(s):insulin glargine (TOUJEO SOLOSTAR U-300 INSULIN) 300 unit/mL (1.5 mL) inpnInject 20 Units subcutaneously every morning.Disp: Rfl:Prescriptions as of 03/10/2018 Sig: INSULIN GLARGINE (U-300) 300 * Inject 20 Units subcutaneousl* PRAVASTATIN 20 MG TABLET Take 1 tablet by mouth every * LIRAGLUTIDE 0.6 MG/0.1 ML (18* Inject 1.8 mg subcutaneously * PEN NEEDLE, DIABETIC 32 GAUGE* Use once daily with Victoza a* ASPIRIN 81 MG TABLET,DELAYED * Take 1 tablet by mouth once d* LEVOTHYROXINE 112 MCG TABLET Take 1 tablet by mouth daily * HYDROCHLOROTHIAZIDE 12.5 MG C* Take 1 capsule by mouth once * METOPROLOL TARTRATE 100 MG TA* Take 1 tablet by mouth twice * ENALAPRIL MALEATE 20 MG TABLET Take 1 tablet by mouth once d* CITALOPRAM 10 MG TABLET Take 1 tablet by mouth once d* OMEPRAZOLE 40 MG CAPSULE,KIM* Take 1 capsule by mouth once * COMPOUNDED PRESCRIPTION BLOOD GLUCOSE METER OF CHOICE* LANCETS PT IS TO TEST BLOOD SUGAR 1-* ALCOHOL SWABS Apply 1 application to affect* BLOOD-GLUCOSE METER KIT 1 Each as needed. BLOOD SUGAR DIAGNOSTIC STRIPS Use as instructed CHOLECALCIFEROL (VITAMIN D3) * Take 2,000 Units by mouth onc* BLOOD-GLUCOSE METER 1 Kit as directed. DM2, 250.0* LANCETS 30 GAUGE DM2, 250.00, non insulin depe* BLOOD SUGAR DIAGNOSTIC STRIPS Use as instructed, once daily* ALL DAY ALLERGY (CETIRIZINE) * as directedProblem List As Of Date 03/10/2018 Noted Resolved Allergic rhinitis, cause unspecified [J30.9] INVALID FOR* Priority: C Essential Hypertension, Benign [I10] INVALID FOR* Priority: A Diabetes mellitus type 2, uncontrolled, without*INVALID FOR* Priority: A Hyperlipidemia [E78.5] INVALID FOR* Priority: B Other Diseases of Lung, not Elsewhere Classifie*INVALID FOR* Priority: B Hypothyroidism [E03.9] INVALID FOR* Priority: A Abdominal Pain, Generalized [R10.84] INVALID FOR*03/16/2010 Pruritus of Genital Organs [L29.3] INVALID FOR*03/16/2010 Symptomatic menopausal or female climacteric st*INVALID FOR* Priority: C GERD (Gastroesophageal Reflux Disease) [K21.9] INVALID FOR* Priority: B Routine general medical examination at [facility]*INVALID FOR*12/14/2014 Class: Chronic More... Routine gynecological examination [Z01.419] INVALID FOR*12/14/2014 Class: Chronic More... Diverticulosis of colon [K57.30] INVALID FOR* Priority: B More... Kidney stone [N20.0] INVALID FOR* Priority: B Elevated LFTs [R79.89] INVALID FOR* Priority: A More... Unspecified pruritic disorder [L29.9] INVALID FOR* Postmenopausal atrophic vaginitis [N95.2] INVALID FOR* Disorder of bone and cartilage, unspecified [M8*INVALID FOR* Bronchitis [J40] INVALID FOR* Internal hemorrhoids without mention of complic*INVALID FOR* Right lower quadrant abdominal pain [R10.31] INVALID FOR* Diverticulitis of large intestine [K57.32] INVALID FOR* CKD (chronic kidney disease) [N18.9] INVALID FOR* Chronic kidney disease (CKD) stage G3a/A2, mode* Obesity, Class I, BMI 30-34.9 [E66.9] INVALID FOR* Need for pneumococcal vaccination [Z23] INVALID FOR* Atrophic vaginitis [N95.2] INVALID FOR* Adjustment insomnia [F51.02] INVALID FOR* Dysuria [R30.0] INVALID FOR* Yeast vaginitis [B37.3] INVALID FOR* Pelvic mass [R19.00] INVALID FOR* More...Prescriptions ordered this encounter Disp Refills Start End INSULIN GLARGINE (U-300) 300 UNIT/ML* 03/10/2018 Class: Med Update Route: SUBCUTANEOUS Sig: Inject 20 Units subcutaneously every morning.Medications Discontinued During This Encounter insulin glargine (TOUJEO SOLOSTAR U-* 3 Pen 3 02/17/2018 03/10/2018 Route: SUBCUTANEOUS Sig: Inject 18 Units subcutaneously every morning. Disc: Reason for discontinue is not on file. Status:Closed by JULIETA JOE PA-C on 03/11/18 [facility] HOSPon 02-25-2018 HOSP Patient:Angeli ReesN: Height:5' 3(1.6 m)Weight:168 lb (76.204 kg)Outpatient Medications as of 03/19/18:insulin glargine (TOUJEO SOLOSTAR U-300 INSULIN) 300 unit/mL (1.5 mL) inpnliraglutide (VICTOZA 3-BREANA) 0.6 mg/0.1 mL (18 mg/3 mL) pnijpravastatin (PRAVACHOL) 20 mg tabletInsulin [place], Disposable, (PEN NEEDLE) 32 gauge x 5/32 ndleaspirin, enteric coated (ASPIR-LOW) 81 mg EC tabletlevothyroxine (SYNTHROID) 112 mcg tabletHydrochlorothiazide 12.5 mg capsulemetoprolol tartrate, short acting, (LOPRESSOR) 100 mg tabletenalapril (VASOTEC) 20 mg tabletcitalopram hydrobromide (CELEXA) 10 mg tabletOmeprazole 40 mg capsuleCOMPOUNDED PRESCRIPTIONLancets lancetsalcohol swabs padmBlood-Glucose Meter (RELION ALL-IN-ONE METER) monitoring kitblood sugar diagnostic (RELION ULTIMA) test stripcholecalciferol (VITAMIN D-3) 2,000 unit tabletBlood-Glucose Meter (GMATE VOICE METER) misclancets (GMATE LANCETS) 30 gauge miscblood sugar diagnostic (ONE TOUCH ULTRA TEST) test stripcetirizine hcl(ALL DAY ALLERGY 10 MG TAB)Admission/Clinic Administered Medications as of 03/19/18:lidocaine 10 mg/mL (1 %) 1-2 mg injection (XYLOCAINE)lactated ringers infusionceFAZolin iv piggyback 2 g in D5W (iso-osmotic) 100 mL (ANCEF)albuterol 2.5 mg /3 mL (0.083 %) 2.5 mg (PROVENTIL)fentaNYL 50 mcg/mL 25 mcg injection (SUBLIMAZE)HYDROmorphone 0.2 mg injection (DILAUDID)labetalol 5 mg injection (NORMODYNE)scopolamine 1 mg over 3 days 1 Patch (TRANSDERM-SCOP)scopolamine - VERIFY patchscopolamine - REMOVE PATCHacetaminophen 1,000 mg iv piggyback (OFIRMEV)prochlorperazine 10 mg injection (COMPAZINE)Problem List:Allergic rhinitis, cause unspecified [J30.9]Essential hypertension, benign [I10]Diabetes mellitus type 2, uncontrolled, without complications (HCC) [E11.65]Hyperlipidemia [E78.5]Other diseases of lung, not elsewhere classified [J98.4]Hypothyroidism [E03.9]Symptomatic menopausal or female climacteric states [N95.1]GERD (gastroesophageal reflux disease) [K21.9]Diverticulosis of colon [K57.30]Kidney stone [N20.0]Elevated LFTs [R79.89]Unspecified pruritic disorder [L29.9]Postmenopausal atrophic vaginitis [N95.2]Disorder of bone and cartilage, unspecified [M89.9, M94.9]Bronchitis [J40]Internal hemorrhoids without mention of complication [K64.8]Right lower quadrant abdominal pain [R10.31]Diverticulitis of large intestine [K57.32]CKD (chronic kidney disease) [N18.9]Chronic kidney disease (CKD) stage G3a/A2, moderately decreased glomerularfiltration rate (GFR) between 45-59 mL/min/1.73 square meter and albuminuriacreatinine ratio between 30-299 mg/g [N18.3]Obesity, Class I, BMI 30-34.9 [E66.9]Need for pneumococcal vaccination [Z23]Atrophic vaginitis [N95.2]Adjustment insomnia [F51.02]Dysuria [R30.0]Yeast vaginitis [B37.3]Pelvic mass [R19.00]PONV (postoperative nausea and vomiting) [R11.2, Z98.890]Allergies:Crestor [Rosuvastatin Calcium]NiacinErythromycinLatex Lescol [Fluvastatin Sodium]Lipitor [Atorvastatin Calcium]Naprosyn [Naproxen]Arcfzav-Ils-Llt Reductase InhibitorsSulfa (Sulfonamide Antibiotics)Vibramycin [Doxycycline Calcium]Vioxx [Rofecoxib]Zocor [Simvastatin]Date Verified: 03/19/18Lab ValuesLab Value Units Date High LowPOTA* 4.7 mmol/L 03/09/2018 5.1 3.7HEMA* 38.6 % 03/09/2018 46.0 36.0Progress Notes ([facility]):SVETLANA MILLER 03/18/2018 9:53 AM SignedPatient calling to report that [facility] reached out to her about cost ofVictoza.Next refill will cost $700 due to patient in coverage gap period.Patient willing to pursue patient assistance through [employer].Will have [facility] mail statement of prescription spending to patient(takes about 7 business days), then apply to company.Will also need patient to bring income verification for the application.If needed, can resume glimepiride therapy while awaiting answer from [employer].Nory Berg PharmProsper, BCPSProgress Notes ([facility]):SVETLANA MILLER 03/17/2018 3:49 PM SignedPatient consents to pharmacy collaborative practice agreement.TELEPHONIC APPOINTMENTREASON FOR CONSULT: DMGOALS: A1c < 8%CONSULTING PROVIDER: Vanessa Maravilla CNPDate of Consult: 07/2017Angeli Ramirez Case is a 67 year old female was last seen in [facility] by PCP, Mariano Larsen on 12/24/17.Patient is CALLED today for f/u pharmacotherapy management appointment for DM.At last PharmD visit on 02/17 insulin glargine was increased from 14 to 18 unitsQAMINTERIM HISTORY:After A1c resulted on 03/11 PCP increased insulin to 20 unitsStopped prednisone (per Rheumatology) 2 weeks ago or soSurgery on 03/19, aspirin held for 1 week prior, will resume afterwards? Instructed to hold liraglutide on 03/19 and take half dose of daily insulinAsking about need for long-term omeprazolePast DM medications:Glimepiride (d/c-ed when liraglutide was started)Current DM Medications:Insulin glargine 20 units QAMLiraglutide 1.8mg once dailyCurrent HTN Medications:Enalapril 20mg once dailyHCTZ 12.5mg once dailyMetoprolol tartrate 100mg BIDPreventative Medications:? On STEPHANIA/ARB: Yes? On Statin: Yes? On ASA: YesROS:? Patient denies CP, SOB, FREEDMAN, blurred vision, dizziness or lightheadedness? Patient denies symptoms of hypoglycemia (sweating, anxiety, palpitations,hunger, and tremor)? Patient denies symptoms of hyperglycemia (polyuria, polydipsia, polyphagia)? Patient denies potential medication adverse effectsDIET/EXERCISE/SOCIAL Hx:? Breakfast: cereal - special K - and milk? Lunch: 2 or 3pm, 2 hard boiled eggs and celery or salad with grilled chicken? Dinner: 6 or 7pm, half hero sandwich yesterday; veggies, chicken or fish andpotato or salad? Snacks: sometimes in the evenings, leftovers or fruit? Following Na restrictions: no? Beverages: unsweetened iced tea? Exercise: no? Tobacco: denies? Alcohol: denies? Illicits: deniesMEDICATIONS:? Pill bottles are not present.? Adherence: denies missed doses.? Pharmacy: [facility] or [facility]? Rx coverage: Medicare, [facility]? Affordability: no issues? Diabetes supplies: [employer]? Organization System: pill boxACTIVE PROBLEM LISTAllergic Rhinitis, Cause UnspecifiedEssential Hypertension, BenignDiabetes Mellitus Type 2, Uncontrolled, Without Complications (Hcc)HyperlipidemiaOther Diseases of Lung, Not Elsewhere ClassifiedHypothyroidismSymptom atic Menopausal Or Female Climacteric StatesGerd (Gastroesophageal Reflux Disease)Diverticulosis of ColonKidney StoneElevated LftsUnspecified Pruritic DisorderPostmenopausal Atrophic VaginitisDisorder of Bone and Cartilage, UnspecifiedBronchitisInternal Hemorrhoids Without Mention of ComplicationRight Lower Quadrant Abdominal PainDiverticulitis of Large IntestineCkd (Chronic Kidney Disease)Chronic Kidney Disease (Ckd) Stage G3a/A2, Moderately Decreased GlomerularFiltration Rate (Gfr) Between 45-59 Ml/Min/1.73 Square Meter and AlbuminuriaCreatinine Ratio Between 30-299 Mg/GObesity, Class I, Bmi 30-34.9Need for Pneumococcal VaccinationAtrophic VaginitisAdjustment InsomniaDysuriaYeast VaginitisPelvic MassPonv (Postoperative Nausea and Vomiting)PAST MEDICAL HISTORYDiagnosis Date- Allergic rhinitis, cause unspecified Allergic rhinitis- Benign hypertensive heart disease without heart failure- BPPV (benign paroxysmal positional vertigo)- Chronic kidney disease (CKD) stage G3a/A2, moderately decreased glomerularfiltration rate (GFR) between 45-59 mL/min/1.73 square meter and albuminuriacreatinine ratio between 30-299 mg/g- Diverticulitis- Esophageal reflux- Fatty liver- Fibromyalgia- Gastric polyp 07/04/14 Dr. Spence, needs repeat EGD in 01/01- Gout right great toe- Hernia of other specified sites of abdominal cavity without mention ofobstruction or gangrene HIATAL- Hypertension- IBS (irritable bowel syndrome)- Irritable bowel syndrome- Leiomyoma of uterus- Other and unspecified hyperlipidemia- PONV (postoperative nausea and vomiting) 03/11/2018- Renal calculi- Snoring- Type II or unspecified type diabetes mellitus without mention of complication,not stated as uncontrolled- Unspecified hemorrhoids without mention of complication Hemorrhoids- Unspecified hypothyroidismALLERGIESAllergen Reactions- Crestor [Rosuvastat* Other: See Comments Legs achy- Niacin Itching- Erythromycin GI Upset- Latex reddness- Lescol [Fluvastatin* GI Upset- Lipitor [Atorvastat* Intolerance Muscle aching- Naprosyn [Naproxen] uncertain- Sehxcdc-Jnn-Ufz Red* Intolerance- Sulfa (Sulfonamide * Hives- Vibramycin [Doxycyc* GI Upset- Vioxx [Rofecoxib] Swelling- Zocor [Simvastatin] uncertainCurrent Outpatient Prescriptions:insulin glargine (TOUJEO SOLOSTAR U-300 INSULIN) 300 unit/mL (1.5 mL) inpnInject 20 Units subcutaneously every morning.pravastatin (PRAVACHOL) 20 mg tablet Take 1 tablet by mouth every other day.liraglutide (VICTOZA 3-BREANA) 0.6 mg/0.1 mL (18 mg/3 mL) pnij Inject 1.8 mgsubcutaneously once daily.Insulin [place], Disposable, (PEN NEEDLE) 32 gauge x ndle Use once dailywith Victoza and Toujeoaspirin, enteric coated (ASPIR-LOW) 81 mg EC tablet Take 1 tablet by mouth oncedaily.levothyroxine (SYNTHROID) 112 mcg tablet Take 1 tablet by mouth daily beforebreakfast.Hydrochlorothia zide 12.5 mg capsule Take 1 capsule by mouth once daily.metoprolol tartrate, short acting, (LOPRESSOR) 100 mg tablet Take 1 tablet bymouth twice daily.enalapril (VASOTEC) 20 mg tablet Take 1 tablet by mouth once daily.citalopram hydrobromide (CELEXA) 10 mg tablet Take 1 tablet by mouth once daily.Omeprazole 40 mg capsule Take 1 capsule by mouth once daily.COMPOUNDED PRESCRIPTION BLOOD GLUCOSE METER OF CHOICE TESTING 1-2 TIMES DAILYDX;EII.65Lancets lancets PT IS TO TEST BLOOD SUGAR 1-2 TIMES PER DAYDX:EII.65alcohol swabs padm Apply 1 application to affected area twice daily. USE TOCLEANSE ARE FOR B/S TESTING 1-2 TIMES PER DAYDX:EII.65Blood-Glucose Meter (RELION ALL-IN-ONE METER) monitoring kit 1 Each as needed.blood sugar diagnostic (RELION ULTIMA) test strip Use as instructedcholecalciferol (VITAMIN D-3) 2,000 unit tablet Take 2,000 Units by mouth oncedaily.Blood-Glucose Meter (GMATE VOICE METER) misc 1 Kit as directed. DM2, 250.00, noninsulin dependentlancets (GMATE LANCETS) 30 gauge misc DM2, 250.00, non insulin dependent,testing 1-2 times a dayblood sugar diagnostic (ONE TOUCH ULTRA TEST) test strip Use as instructed, oncedaily, DX: 250.02, Insulin Dep: Nocetirizine hcl(ALL DAY ALLERGY 10 MG TAB) as directedNo current facility-administered medications for this visit.Rx meds not listed in EPIC: noneOTCs: noneHerbals: noneGLYCEMIC CONTROL:? Glucometer present at visit: Yes? SMBG?s:Date Fasting AM 2 hr PP Before Lunch 2 hr PP Before Dinner 2 hr PP Bedtime03/17 2384/30 2384/29 2144/28 2184/ 2634/ 221 - increased Toujeo from to 2724/24 2684/23 2064/22 3094/21 2134/20 2504/19 18 219? Hypoglycemia: denies Last 3 Encounter BP Readings: Date: BP: 03/09/2018 131/59 02/20/2018 128/70 01/08/2018 125/69 Wt: 76.2 kg (168 lb) BMI: 29.76 kg/(m2)LABSLab ResultsComponent Value AegjDGW2M 9.6 03/09/2018HBA1C 9.3 12/22/2017HBA1C 9.8 09/17/2017CMP:Glucose 268 03/09/2018BUN 24 03/09/2018Creatinine 1.32 03/09/2018Sodium 138 03/09/2018Potassium 4.7 03/09/2018Chloride 98 03/09/2018CO2 23 03/09/2018Protein, Total 7.3 03/09/2018Albumin 4.1 03/09/2018Calcium 9.3 03/09/2018Alkaline Phosphatase 108 03/09/2018Bilirubin, Total 0.3 03/09/2018AST 46 03/09/2018ALT 49 03/09/2018GFR 40Estimated Creatinine Clearance: 41 mL/min (A) (based on SCr of 1.32 mg/dL (H)).Last Lipid PanelLab ResultsComponent Value DateCHOL 226 12/22/2017Lab ResultsComponent Value DateHDL 30 12/22/2017Lab ResultsComponent Value DateLDL 132 12/22/2017Lab ResultsComponent Value DateTG 478 12/22/2017Albumin/Creat Ratio (mg/g)Date Value09/17/2017 Not calculatedPHARMACOTHERAPY ASSESSMENT/PLAN:1. Uncontrolled type 2 diabetes mellitus without complication, without long-termcurrent use of insulin (HCC) - ICD9: 250.02, ICD10: E11.65 (primary diagnosis)A1c goal < 8%, patient is not at goal (9.6% on 03/09/18). FBGs not at goal andPPBGs data missing. Patient compliant with and tolerating current regimen. GivenFBGs still significantly above goal, appropriate to increase basal insulin atthis time. Not metformin candidate d/t renal fxn. Renal fxn reduced but stableand LFTs slightly elevated but not 3x ULN and appropriate for continued therapy? INCREASE insulin glargine 300 units/mL to 24 units QAM? CONTINUE liraglutide 1.8mg once daily? Instructed patient to continue checking SMBGs2. Essential hypertension, benign - ICD9: 401.1, ICD10: I10BP goal < 140/90, pt is at goal on current therapy. K+ WNL and renal fxn reducedbut stable and appropriate for continued therapy.? CONTINUE enalapril 20 mg and HCTZ 12.5 mg once daily and metoprolol [id number] mg BID?? CMP in . Mixed hyperlipidemia - ICD9: 272.2, ICD10: E78.2Pt indicated for high?intensity statin?d/t diagnosis of DM and ASCVD risk score17%. Pt unable to tolerate high intensity statin therapy d/t myalgia (hastrialed all of the statin therapies). Reports taking pravastatin 20mg everyother day. Will continue at this time. LFTs slightly elevated but not 3x ULN andappropriate for continued therapy? CONTINUE pravastatin 20mg every other day4. Medication management - ICD9: V58.69, ICD10: Z79.899Discussed need for long-term PPI use as patient was concerned for side effects.She reports trying lansoprazole in the past but not ranitidine or famotidine.Denies hx of ulcers or GI bleeding. Likely appropriate to switch from PPI to [id number] long-term reduced AE potential.? Instructed patient to discuss switch from PPI to H2B with her PCPHealth Maintenance issues addressed:DIABETIC FOOT EXAM due on 09/11/2017Patient is scheduled to see PCP 03/24.Patient to return to clinic for PharmD f/u on 04/21.Patient verbalized understanding of instructions.Nory Berg, PharmD, LATRICE BERG, PHARMACIST 03/17/2018 3:44 PM SignedIncrease Toujeo to 24 units every morning Normal [facility] H[facility] 02-23-2018 HOSP Patient Update (FVPRAD) CASEANGELI ( ) 1950 FDate Time Provider Department02/23/18 ROCÍO PACE ([facility] FVPRAProsper During your visit today, we recorded the following information about you:Allergies As of Date: 02/23/2018 Noted Allergy ReactionCRESTOR (ROSUVASTATIN CALCIUM) 11/29/2011 14 - Other: See Comments Comments: Legs achyNIACIN 10/02/2012 9 - ItchingERYTHROMYCIN 07/19/2005 8 - GI UpsetLATEX 04/02/2006 Comments: reddnessLESCOL (FLUVASTATIN SODIUM) 07/19/2005 8 - GI UpsetLIPITOR (ATORVASTATIN CALCIUM) 05/29/2010 5 - Intolerance Comments: Muscle achingNAPROSYN (NAPROXEN) 07/19/2005 Comments: [id number]-WYU-COM REDUCTASE INHIBIT*06/23/2017 5 - IntoleranceSULFA (SULFONAMIDE ANTIBIOTICS) 07/19/2005 4 - HivesVIBRAMYCIN (DOXYCYCLINE CALCIUM) 07/19/2005 8 - GI UpsetVIOXX (ROFECOXIB) 07/19/2005 7 - SwellingZOCOR (SIMVASTATIN) 07/19/2005 Comments: uncertainDate Reviewed: 02/20/2018Reviewed by: Curry Kingston - Fully AssessedOrder(s):SURGICAL REQUEST - ELECTIVE [[id number]] Order #: [id number]: 1Prescriptions as of 02/23/2018 Sig: INSULIN GLARGINE (U-300) 300 * Inject 18 Units subcutaneousl* PRAVASTATIN 20 MG TABLET Take 1 tablet by mouth every * LIRAGLUTIDE 0.6 MG/0.1 ML (18* Inject 1.8 mg subcutaneously * PEN NEEDLE, DIABETIC 32 GAUGE* Use once daily with Victoza a* ZOLPIDEM 10 MG TABLET Take 1 tablet by mouth at bed* ASPIRIN 81 MG TABLET,DELAYED * Take 1 tablet by mouth once d* LEVOTHYROXINE 112 MCG TABLET Take 1 tablet by mouth daily * HYDROCHLOROTHIAZIDE 12.5 MG C* Take 1 capsule by mouth once * METOPROLOL TARTRATE 100 MG TA* Take 1 tablet by mouth twice * ENALAPRIL MALEATE 20 MG TABLET Take 1 tablet by mouth once d* CITALOPRAM 10 MG TABLET Take 1 tablet by mouth once d* OMEPRAZOLE 40 MG CAPSULE,KIM* Take 1 capsule by mouth once * PREDNISONE 1 MG TABLET CLOTRIMAZOLE 10 MG PRINCESS Use 10 mg as instructed five * COMPOUNDED PRESCRIPTION BLOOD GLUCOSE METER OF CHOICE* LANCETS PT IS TO TEST BLOOD SUGAR 1-* ALCOHOL SWABS Apply 1 application to affect* BLOOD-GLUCOSE METER KIT 1 Each as needed. BLOOD SUGAR DIAGNOSTIC STRIPS Use as instructed COMPOUNDED PRESCRIPTION Okra-pepsin take 1 tablet by * CHOLECALCIFEROL (VITAMIN D3) * Take 2,000 Units by mouth onc* BLOOD-GLUCOSE METER 1 Kit as directed. DM2, 250.0* LANCETS 30 GAUGE DM2, 250.00, non insulin depe* BLOOD SUGAR DIAGNOSTIC STRIPS Use as instructed, once daily* ALL DAY ALLERGY (CETIRIZINE) * as directedProblem List As Of Date 02/23/2018 Noted Resolved Allergic rhinitis, cause unspecified [J30.9] INVALID FOR* Priority: C Essential Hypertension, Benign [I10] INVALID FOR* Priority: A Diabetes mellitus type 2, uncontrolled, without*INVALID FOR* Priority: A Hyperlipidemia [E78.5] INVALID FOR* Priority: B Other Diseases of Lung, not Elsewhere Classifie*INVALID FOR* Priority: B Hypothyroidism [E03.9] INVALID FOR* Priority: A Abdominal Pain, Generalized [R10.84] INVALID FOR*03/16/2010 Pruritus of Genital Organs [L29.3] INVALID FOR*03/16/2010 Symptomatic menopausal or female climacteric st*INVALID FOR* Priority: C GERD (Gastroesophageal Reflux Disease) [K21.9] INVALID FOR* Priority: B Routine general medical examination at a health*INVALID FOR*12/14/2014 Class: Chronic More... Routine gynecological examination [Z01.419] INVALID FOR*12/14/2014 Class: Chronic More... Diverticulosis of colon [K57.30] INVALID FOR* Priority: B More... Kidney stone [N20.0] INVALID FOR* Priority: B Elevated LFTs [R79.89] INVALID FOR* Priority: A More... Unspecified pruritic disorder [L29.9] INVALID FOR* Postmenopausal atrophic vaginitis [N95.2] INVALID FOR* Disorder of bone and cartilage, unspecified [M8*INVALID FOR* Bronchitis [J40] INVALID FOR* Internal hemorrhoids without mention of complic*INVALID FOR* Right lower quadrant abdominal pain [R10.31] INVALID FOR* Diverticulitis of large intestine [K57.32] INVALID FOR* CKD (chronic kidney disease) [N18.9] INVALID FOR* Chronic kidney disease (CKD) stage G3a/A2, mode* Obesity, Class I, BMI 30-34.9 [E66.9] INVALID FOR* Need for pneumococcal vaccination [Z23] INVALID FOR* Atrophic vaginitis [N95.2] INVALID FOR* Adjustment insomnia [F51.02] INVALID FOR* Dysuria [R30.0] INVALID FOR* Yeast vaginitis [B37.3] INVALID FOR* Status:Closed by ROCÍO PACE CNP on 02/23/18 [facility] Vital Signs Date Time Vital Sign Value Performing Clinician Facility 05-27-2025 11:08-0400 Body height 157.5 cm Blanca King APRN.CNP Work Phone: [facility] 05-27-2025 11:08-0400 Body mass index (BMI) [Ratio] 33.19 kg/m2 Blanca King APRN.CNP Work Phone: [facility] 05-27-2025 11:08-0400 Body temperature 97.11 [degF] Blanca King APRN.CNP Work Phone: [facility] 05-27-2025 11:08-0400 Body weight 82.3 kg Blanca King APRN.CNP Work Phone: [facility] 05-27-2025 11:08-0400 Diastolic blood pressure 43 mm[Hg] Blanca King APRN.CNP Work Phone: [facility] Comment on above: Patient has not taken am medication was suppose to had a Fibroscan 05-27-2025 11:08-0400 Heart rate 57 /min Blanca King APRN.[employer] DYEING T[employer]ER Work Phone: [facility] 05-27-2025 11:08-0400 SaO2% (BldA) [Mass fraction] 97 % Blanca King CUSTOMER CARE REPRESENTATIVE.[employer]ER Work Phone: [facility] 05-27-2025 11:08-0400 Systolic blood pressure 158 mm[Hg] Blanca King CUSTOMER CARE REPRESENTATIVE.[employer] D[employer]ING TENDER Work Phone: [facility] Comment on above: Patient has not taken am medication was suppose to had a Fibroscan 05-04-2025 13:11-0400 Body mass index (BMI) [Ratio] 31.79 kg/m2 Caridad Chapman CUSTOMER CARE REPRESENTATIVE.[employer] D[employer]ING TENDER Work Phone: [facility] 05-04-2025 13:11-0400 Body weight 78.83 kg Caridad Chapman CUSTOMER CARE REPRESENTATIVE.[employer] D[employer]ING TENDER Work Phone: [facility] 05-04-2025 13:11-0400 Diastolic blood pressure 76 mm[Hg] Caridad Chapman CUSTOMER CARE REPRESENTATIVE.[employer] D[employer]ING T[employer]ER Work Phone: [facility] 05-04-2025 13:11-0400 Heart rate 60 /min Caridad Chapman CUSTOMER CARE REPRESENTATIVE.[employer] D[employer]ING TENDER Work Phone: [facility] 05-04-2025 13:11-0400 SaO2% (BldA) [Mass fraction] 95 % Caridad Chapman CUSTOMER CARE REPRESENTATIVE.[employer] D[employer]ING TENDER Work Phone: [facility] 05-04-2025 13:11-0400 Systolic blood pressure 118 mm[Hg] Caridad Chapman CUSTOMER CARE REPRESENTATIVE.[employer] D[employer]ING T[employer]ER Work Phone: [facility] 03-02-2025 12:56-0400 Body height 157.5 cm Blanca King CUSTOMER CARE REPRESENTATIVE.[employer] T[employer]ER Work Phone: [facility] 03-02-2025 12:56-0400 Body mass index (BMI) [Ratio] 32.38 kg/m2 Blanca King CUSTOMER CARE REPRESENTATIVE.[employer] D[employer]ER Work Phone: [facility] 03-02-2025 12:56-0400 Body temperature 97 [degF] Blanca King CUSTOMER CARE REPRESENTATIVE.[employer] D[employer]ING [employer]ER Work Phone: [facility] 03-02-2025 12:56-0400 Body weight 80.3 kg Blanca King CUSTOMER CARE REPRESENTATIVE.[employer] D[employer]ING T[employer]ER Work Phone: [facility] 03-02-2025 12:56-0400 Diastolic blood pressure 56 mm[Hg] Blanca King CUSTOMER CARE REPRESENTATIVE.[employer] D[employer]ING TENDER Work Phone: [facility] Comment on above: pt feels nauseas. denies other symptoms 03-02-2025 12:56-0400 Heart rate 52 /min Blanca King CUSTOMER CARE REPRESENTATIVE.[employer] D[employer] T[employer]ER Work Phone: [facility] 03-02-2025 12:56-0400 SaO2% (BldA) [Mass fraction] 96 % Blanca King CUSTOMER CARE REPRESENTATIVE.[employer] DYEING TENDER Work Phone: [facility] 03-02-2025 12:56-0400 Systolic blood pressure 179 mm[Hg] Blanca King CUSTOMER CARE REPRESENTATIVE.[employer] D[employer]ING TENDER Work Phone: [facility] Comment on above: pt feels nauseas. denies other symptoms 02-01-2025 14:04-0400 Diastolic blood pressure 64 mm[Hg] Demetra Navarrete CUSTOMER CARE REPRESENTATIVE.[employer]ER Work Phone: [facility] Comment on above: double check 02-01-2025 14:04-0400 Systolic blood pressure 124 mm[Hg] Demetra Navarrete CUSTOMER CARE REPRESENTATIVE.[employer] D[employer] T[employer]ER Work Phone: [facility] Comment on above: double check 02-01-2025 13:04-0400 Body mass index (BMI) [Ratio] 32.48 kg/m2 Demetra Navarrete CUSTOMER CARE REPRESENTATIVE.[employer] D[employer]ING TENDER Work Phone: [facility] 02-01-2025 13:04-0400 Body weight 80.56 kg Demetra Navarrete CUSTOMER CARE REPRESENTATIVE.W[employer] D[employer]ING TENDER Work Phone: [facility] 02-01-2025 13:04-0400 Heart rate 68 /min Demetra Navarrete CUSTOMER CARE REPRESENTATIVE.[employer] D[employer]ING TENDER Work Phone: [facility] 02-01-2025 13:04-0400 SaO2% (BldA) [Mass fraction] 97 % Demetra Navarrete APRNDarienWARP DYEING TENDER Work Phone: [facility] 11-22-2024 13:19-0500 Body height 157.5 cm Kim Quinn MD Work Phone: [facility] 11-22-2024 13:19-0500 Body mass index (BMI) [Ratio] 32.26 kg/m2 Kim Quinn MD Work Phone: [facility] 11-22-2024 13:19-0500 Body temperature 97.3 [degF] Kim Quinn MD Work Phone: [facility] 11-22-2024 13:19-0500 Body weight 80.02 kg Kim Quinn MD Work Phone: [facility] 11-22-2024 13:19-0500 Diastolic blood pressure 70 mm[Hg] iKm Quinn MD Work Phone: [facility] 11-22-2024 13:19-0500 Heart rate 96 /min Kim Quinn MD Work Phone: [facility] 11-22-2024 13:19-0500 SaO2% (BldA) [Mass fraction] 97 % Kim Quinn MD Work Phone: [facility] 11-22-2024 13:19-0500 Systolic blood pressure 118 mm[Hg] Kim Quinn MD Work Phone: [facility] 11-03-2024 12:34-0500 Body mass index (BMI) [Ratio] 32.56 kg/m2 Mariano Freedmanrison DO Work Phone: [facility] 11-03-2024 12:34-0500 Body temperature 97 [degF] Mariano Pearce DO Work Phone: [facility] 11-03-2024 12:34-0500 Body weight 80.74 kg Mariano Pearce DO Work Phone: [facility] 11-03-2024 12:34-0500 Diastolic blood pressure 70 mm[Hg] Mariano Pearce DO Work Phone: [facility] 11-03-2024 12:34-0500 Heart rate 80 /min Mariano Pearce DO Work Phone: [facility] 11-03-2024 12:34-0500 Respiratory rate 16 /min Mariano Pearce DO Work Phone: [facility] 11-03-2024 12:34-0500 Systolic blood pressure 110 mm[Hg] Mariano Pearce DO Work Phone: [facility] 10-07-2024 11:26-0500 Body mass index (BMI) [Ratio] 32.38 kg/m2 Naya Ruvalcaba CUSTOMER CARE REPRESENTATIVE.[employer] D[employer]ING TENDER Work Phone: [facility] 10-07-2024 11:26-0500 Body weight 80.3 kg Naya Ruvalcaba CUSTOMER CARE REPRESENTATIVE.W[employer] DYEING TENDER Work Phone: [facility] 10-07-2024 11:26-0500 Diastolic blood pressure 60 mm[Hg] Naya Ruvalcaba CUSTOMER CARE REPRESENTATIVE.W[employer] DYEING TENDER Work Phone: [facility] 10-07-2024 11:26-0500 Heart rate 60 /min Naya Ruvalcaba CUSTOMER CARE REPRESENTATIVE.WARP DYEING TENDER Work Phone: [facility] 10-07-2024 11:26-0500 Respiratory rate 14 /min Naya Ruvalcaba CUSTOMER CARE REPRESENTATIVE.W[employer] DYEING TENDER Work Phone: [facility] 10-07-2024 11:26-0500 SaO2% (BldA) [Mass fraction] 95 % Naya Ruvalcaba CUSTOMER CARE REPRESENTATIVE.WARP DYEING TENDER Work Phone: [facility] 10-07-2024 11:26-0500 Systolic blood pressure 122 mm[Hg] Naya Ruvalcaba CUSTOMER CARE REPRESENTATIVE.W[employer] DYEING TENDER Work Phone: [facility] 07-27-2024 13:12-0400 Body mass index (BMI) [Ratio] 31.42 kg/m2 Demetra Rosalba CUSTOMER CARE REPRESENTATIVE.WARP DYEING TENDER Work Phone: [facility] 07-27-2024 13:12-0400 Body weight 77.93 kg Demetra Rosalba CUSTOMER CARE REPRESENTATIVE.W[employer] DYEING TENDER Work Phone: [facility] 07-27-2024 13:12-0400 Diastolic blood pressure 82 mm[Hg] Demetra Rosalba CUSTOMER CARE REPRESENTATIVE.W[employer] DYEING TENDER Work Phone: [facility] 07-27-2024 13:12-0400 Heart rate 60 /min Demetra Rosalba CUSTOMER CARE REPRESENTATIVE.W[employer] DYEING TENDER Work Phone: [facility] 07-27-2024 13:12-0400 Respiratory rate 16 /min Demetra Rosalba CUSTOMER CARE REPRESENTATIVE.WARP DYEING TENDER Work Phone: [facility] 07-27-2024 13:12-0400 SaO2% (BldA) [Mass fraction] 93 % Demetra Rosalba CUSTOMER CARE REPRESENTATIVE.WARP DYEING TENDER Work Phone: [facility] 07-27-2024 13:12-0400 Systolic blood pressure 124 mm[Hg] Demetra Rosalba CUSTOMER CARE REPRESENTATIVE.W[employer] DYEING TENDER Work Phone: [facility] 04-23-2024 13:32-0400 Body mass index (BMI) [Ratio] 31.28 kg/m2 Mariano Pearce DO Work Phone: [facility] 04-23-2024 13:32-0400 Body weight 77.56 kg Mariano Pearce DO Work Phone: [facility] 04-23-2024 13:32-0400 Diastolic blood pressure 72 mm[Hg] Mariano Pearce DO Work Phone: [facility] 04-23-2024 13:32-0400 Heart rate 64 /min Mariano Pearce DO Work Phone: [facility] 04-23-2024 13:32-0400 SaO2% (BldA) [Mass fraction] 97 % Mariano Pearce DO Work Phone: [facility] 04-23-2024 13:32-0400 Systolic blood pressure 124 mm[Hg] Mariano Pearce DO Work Phone: [facility] 01-15-2024 12:50-0500 Body temperature 96.1 [degF] Demetra Rosalba CUSTOMER CARE REPRESENTATIVE.W[employer] DYEING TENDER Work Phone: [facility] 01-15-2024 12:50-0500 Body weight 77.47 kg Demetra Rosalba CUSTOMER CARE REPRESENTATIVE.W[employer] DYEING TENDER Work Phone: [facility] 01-15-2024 12:50-0500 Diastolic blood pressure 84 mm[Hg] Demetra Rosalba CUSTOMER CARE REPRESENTATIVE.W[employer] DYEING TENDER Work Phone: [facility] 01-15-2024 12:50-0500 Heart rate 68 /min Demetra Rosalba CUSTOMER CARE REPRESENTATIVE.WARP DYEING TENDER Work Phone: [facility] 01-15-2024 12:50-0500 Respiratory rate 16 /min Demetra Rosalba CUSTOMER CARE REPRESENTATIVE.WARP DYEING TENDER Work Phone: [facility] 01-15-2024 12:50-0500 SaO2% (BldA) [Mass fraction] 93 % Demetra Rosalba CUSTOMER CARE REPRESENTATIVE.W[employer] DYEING TENDER Work Phone: [facility] 01-15-2024 12:50-0500 Systolic blood pressure 118 mm[Hg] Demetra Rosalba CUSTOMER CARE REPRESENTATIVE.WARP DYEING TENDER Work Phone: [facility] 10-15-2023 11:50-0500 Body temperature 96.8 [degF] Mariano Pearce DO Work Phone: [facility] 10-15-2023 11:50-0500 Body weight 76.2 kg Mariano Pearce DO Work Phone: [facility] 10-15-2023 11:50-0500 Diastolic blood pressure 80 mm[Hg] Mariano Pearce DO Work Phone: [facility] 10-15-2023 11:50-0500 Heart rate 68 /min Mariano Pearce DO Work Phone: [facility] 10-15-2023 11:50-0500 Respiratory rate 20 /min Mariano Pearce DO Work Phone: [facility] 10-15-2023 11:50-0500 Systolic blood pressure 110 mm[Hg] Mariano Pearce DO Work Phone: [facility] 07-30-2023 10:52-0400 Body temperature 96.4 [degF] Mariano Pearce DO Work Phone: [facility] 07-30-2023 10:52-0400 Body weight 76.2 kg Mariano Pearce DO Work Phone: [facility] 07-30-2023 10:52-0400 Diastolic blood pressure 70 mm[Hg] Mariano Pearce DO Work Phone: [facility] 07-30-2023 10:52-0400 Heart rate 64 /min Mariano Pearce DO Work Phone: [facility] 07-30-2023 10:52-0400 Respiratory rate 20 /min Mariano Pearce DO Work Phone: [facility] 07-30-2023 10:52-0400 Systolic blood pressure 130 mm[Hg] Mariano Pearce DO Work Phone: [facility] 07-15-2023 12:52-0400 Body height 157.5 cm Rola Muro MD Work Phone: [facility] 07-15-2023 12:52-0400 Body temperature 98.1 [degF] Rola Muro MD Work Phone: [facility] 07-15-2023 12:52-0400 Body weight 77.56 kg Rola Muro MD Work Phone: [facility] 07-15-2023 12:52-0400 Diastolic blood pressure 72 mm[Hg] Rola Muro MD Work Phone: [facility] 07-15-2023 12:52-0400 Heart rate 74 /min Rola Muro MD Work Phone: [facility] 07-15-2023 12:52-0400 SaO2% (BldA) [Mass fraction] 94 % Rola Muro MD Work Phone: [facility] 07-15-2023 12:52-0400 Systolic blood pressure 132 mm[Hg] Rola Muro MD Work Phone: [facility] 07-04-2023 11:22-0400 Diastolic blood pressure 60 mm[Hg] Rola Muro MD Work Phone: [facility] 07-04-2023 11:22-0400 Heart rate 62 /min Rola Muro MD Work Phone: [facility] 07-04-2023 11:22-0400 Respiratory rate 19 /min Rola Muro MD Work Phone: [facility] 07-04-2023 11:22-0400 SaO2% (BldA) [Mass fraction] 95 % Rola Muro MD Work Phone: [facility] 07-04-2023 11:22-0400 Systolic blood pressure 132 mm[Hg] Rola Muro MD Work Phone: [facility] 07-04-2023 11:04-0400 Body temperature 97 [degF] Rola Muro MD Work Phone: [facility] 06-11-2023 11:35-0400 Body height 157.5 cm Vanessa Cathie PA-C Work Phone: [facility] 06-11-2023 11:35-0400 Body temperature 98.4 [degF] Vanessa [place] PA-C Work Phone: [facility] 06-11-2023 11:35-0400 Body weight 77.56 kg Vanessa [place] PA-C Work Phone: [facility] 06-11-2023 11:35-0400 Diastolic blood pressure 68 mm[Hg] Vanessa [place] PA-C Work Phone: [facility] 06-11-2023 11:35-0400 Heart rate 71 /min Vanessa Cathie PA-C Work Phone: [facility] 06-11-2023 11:35-0400 SaO2% (BldA) [Mass fraction] 95 % Vanessa Cathie PA-C Work Phone: [facility] 06-11-2023 11:35-0400 Systolic blood pressure 124 mm[Hg] Vanessa [place] PA-C Work Phone: [facility] 05-21-2023 13:00-0400 Body height 157.5 cm Pacc 1 Work Phone: [facility] 05-21-2023 13:00-0400 Body temperature 98.4 [degF] Pacc 1 Work Phone: [facility] 05-21-2023 13:00-0400 Body weight 77.11 kg Pacc 1 Work Phone: [facility] 05-21-2023 13:00-0400 Diastolic blood pressure 70 mm[Hg] Pacc 1 Work Phone: [facility] 05-21-2023 13:00-0400 Heart rate 69 /min Pacc 1 Work Phone: [facility] 05-21-2023 13:00-0400 Respiratory rate 16 /min Pacc 1 Work Phone: [facility] 05-21-2023 13:00-0400 SaO2% (BldA) [Mass fraction] 94 % Pacc 1 Work Phone: [facility] 05-21-2023 13:00-0400 Systolic blood pressure 118 mm[Hg] Pacc 1 Work Phone: [facility] 04-16-2023 13:31-0400 Body height 157.5 cm Vanessa [place] PA-C Work Phone: [facility] 04-16-2023 13:31-0400 Body temperature 97.7 [degF] Vanessa [place] PA-C Work Phone: [facility] 04-16-2023 13:31-0400 Body weight 78.11 kg Vanessa Cathie PA-C Work Phone: [facility] 04-16-2023 13:31-0400 Diastolic blood pressure 78 mm[Hg] Vanessa Cathie PA-C Work Phone: [facility] 04-16-2023 13:31-0400 Heart rate 71 /min Vanessa Gary PA-C Work Phone: [facility] 04-16-2023 13:31-0400 SaO2% (BldA) [Mass fraction] 100 % Vanessa Cathie PA-C Work Phone: [facility] 04-16-2023 13:31-0400 Systolic blood pressure 124 mm[Hg] Vanessa Gary PA-C Work Phone: [facility] 03-25-2023 15:40-0400 Body height 157.5 cm Beth Ahuja MD Work Phone: [facility] 03-25-2023 15:40-0400 Body weight 78.93 kg Beth Ahuja MD Work Phone: [facility] 03-25-2023 15:40-0400 SaO2% (BldA) [Mass fraction] 96 % Beth Ahuja MD Work Phone: [facility] 02-11-2023 16:13-0400 Body temperature 97 [degF] Mariano Pearce DO Work Phone: [facility] 02-11-2023 16:13-0400 Body weight 78.93 kg Mariano Pearce DO Work Phone: [facility] 02-11-2023 16:13-0400 Diastolic blood pressure 80 mm[Hg] Mariano Pearce DO Work Phone: [facility] 02-11-2023 16:13-0400 Heart rate 76 /min Mariano Pearce DO Work Phone: [facility] 02-11-2023 16:13-0400 Respiratory rate 20 /min Mariano Pearce DO Work Phone: [facility] 02-11-2023 16:13-0400 Systolic blood pressure 130 mm[Hg] Mariano Pearce DO Work Phone: [facility] 01-28-2023 12:19-0400 Body temperature 97.5 [degF] Mariano Pearce DO Work Phone: [facility] 01-28-2023 12:19-0400 Body weight 80.29 kg Mariano Pearce DO Work Phone: [facility] 01-28-2023 12:19-0400 Diastolic blood pressure 80 mm[Hg] Mariano Pearce DO Work Phone: [facility] 01-28-2023 12:19-0400 Heart rate 64 /min Mariano Pearce DO Work Phone: [facility] 01-28-2023 12:19-0400 Respiratory rate 20 /min Mariano Pearce DO Work Phone: [facility] 01-28-2023 12:19-0400 Systolic blood pressure 136 mm[Hg] Mariano Pearce DO Work Phone: [facility] 10-30-2022 14:57-0500 Body temperature 97 [degF] Mariano Pearce DO Work Phone: [facility] 10-30-2022 14:57-0500 Body weight 80.74 kg Mariano Pearce DO Work Phone: [facility] 10-30-2022 14:57-0500 Diastolic blood pressure 88 mm[Hg] Mariano Pearce DO Work Phone: [facility] 10-30-2022 14:57-0500 Heart rate 76 /min Mariano Pearce DO Work Phone: [facility] 10-30-2022 14:57-0500 Respiratory rate 20 /min Mariano Pearce DO Work Phone: [facility] 10-30-2022 14:57-0500 Systolic blood pressure 136 mm[Hg] Mariano Pearce DO Work Phone: [facility] 08-22-2022 14:40-0400 Body weight 81.19 kg Matt Arnold [facility] Work Phone: [facility] 07-29-2022 13:24-0400 Body temperature 97 [degF] Mariano Pearce DO Work Phone: [facility] 07-29-2022 13:24-0400 Body weight 80.74 kg Mariano Pearce DO Work Phone: [facility] 07-29-2022 [id number] Diastolic blood pressure 80 mm[Hg] Mariano Pearce DO Work Phone: [facility] 07-29-2022 13:240400 Heart rate 64 /min Mariano Pearce DO Work Phone: [facility] 07-29-2022 13:24040 Respiratory rate 16 /min Mariano Pearce DO Work Phone: [facility] 07-29-2022 13:040 Systolic blood pressure 130 mm[Hg] Mariano Pearce DO Work Phone: [facility] Encounters Encounter Date Encounter Type Care Provider Facility Start: 09-22-2025 End: 09-22-2025 ambulatory MARIANO L PEARCE Facility:[facility] Start: 09-16-2025 End: 09-16-2025 ambulatory MARIANO L PEARCE Facility:[facility] Start: 09-16-2025 End: 09-16-2025 ambulatory MARIANO L PEARCE Facility:[facility] Start: 08-19-2025 End: 08-19-2025 ambulatory MARIANO L PEARCE Facility:[facility] Start: 08-18-2025 End: 08-18-2025 ambulatory MARIANO L PEARCE Facility:[facility] Start: 08-04-2025 End: 08-04-2025 ambulatory MARIANO L PEARCE Facility:[facility] Start: 07-29-2025 End: 07-29-2025 Follow-up encounter Caridad Chapman APRN.[employer]ARP DYEING TENDER Work Phone: [facility] Comment on above: Results Start: 07-27-2025 End: 07-27-2025 ambulatory MARIANO L PEARCE Facility:[facility] Start: 07-12-2025 End: 07-12-2025 Telephone encounter Blanca King APRN.[employer]ARP DYEING TENDER Work Phone: Gastroenterology Comment on above: Patient Update (Appe al rhett ) Start: 07-11-2025 End: 07-11-2025 Refill Mariano L Pearce DO Work Phone: [facility] [place] Comment on above: Refill Request Start: 06-17-2025 End: 06-17-2025 Refill Mariano Pearce DO Work Phone: [facility] [place] Comment on above: Refill Request Start: 06-09-2025 End: 06-09-2025 Patient encounter procedure Greta Watts [facility] Work Phone: [facility] Comment on above: Type 2 diabetes maite itus with stage 3 chronic kidney disease, with long-term current use of insulin, unspecified whether stage 3a or 3b CKD (HCC) (Primary Dx) Start: 06-09-2025 End: 06-09-2025 ambulatory MARIANO PEARCE Facility:[facility] Start: 06-02-2025 End: 06-03-2025 Telephone encounter Blanca King APRN.[employer]ARP DYEING TENDER Work Phone: Gastroenterology Start: 06-01-2025 ambulatory MARIANO PEARCE Facil ity:[facility] Start: 06-01-2025 End: 06-01-2025 Subsequent hospital visit by physician [facility] (I-Stat/1.5t) Work Phone: Radiology Comment on above: Cirrhosis of liver w ithout ascites, unspecified hepatic cirrhosis type (HCC) [K74.60] Start: 05-27-2025 End: 05-27-2025 Patient encounter procedure Blanca King APRN.[employer]ARP DYEING TENDER Work Phone: Gastroenterology Comment on above: Cirrhosis of liver w ithout ascites, unspecified hepatic cirrhosis type (HCC) (Primary Dx) Start: 05-27-2025 End: 05-27-2025 ambulatory MARIANO PEARCE Facility:[facility] Start: 05-17-2025 End: 05-17-[address] Mariano Pearce DO Work Phone: -Laboratory Start: 05-17-2025 End: 05-17-2025 Patient encounter procedure Ashley Cabrera -Laboratory Work Phone: Start: 05-17-2025 End: 05-17-2025 ambulatory Ashley Tripoli Facility:[facility] Start: 05-12-2025 End: 05-12-2025 Refill Mariano Freedmanrison DO Work Phone: [facility] Comment on above: Refill Request Start: 05-06-2025 End: 05-06-2025 Telephone encounter Caridad Chapman APRN.[employer] DYEING TENDER Work Phone: [facility] Start: 05-06-2025 End: 05-06-2025 Unlisted evaluation and management service Caridad Chapman APRN.[employer]ARP DYEING TENDER Work Phone: [facility] Comment on above: Opened In Error Start: 05-04-2025 End: 05-04-2025 Office outpatient visit 25 minutes Caridad Chapman APRN.WARP DYEING TENDER Work Phone: [facility] Comment on above: Cirrhosis of liver w ithout ascites, unspecified hepatic cirrhosis type (HCC) (Primary Dx); Iron 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, unspecified iron 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 type; Type 2 diabetes mellitus with stage 3a chronic kidney disease, with long-term current use of insulin (HCC); Chronic insomnia; Urinary frequency; Stress incontinence; Nocturia; Fatty liver; Hypertensive kidney disease with stage 3a chronic kidney disease (HCC); Dyslipidemia Start: 05-04-2025 End: 05-04-2025 ambulatory MARIANO L PEARCE Facility:[facility] Start: 04-27-2025 End: 04-28-2025 Telephone encounter Mariano Cobos Pearce DO Work Phone: [facility] Comment on above: Refill Request Start: 04-22-2025 End: 04-29-2025 Telephone encounter Mariano Papito Pearce DO Work Phone: [facility] Comment on above: FYI-No Action Needed Start: 04-14-2025 End: 04-14-2025 Refill Mariano L Pearce DO Work Phone: [facility] Comment on above: Refill Request Start: 04-05-2025 End: 04-05-2025 ambulatory MARIANO L PEARCE Facility:[facility] Start: 04-04-2025 End: 04-04-2025 Refill Mariano L Pearce DO Work Phone: [facility] Comment on above: Refill Request Start: 03-28-2025 End: 03-28-2025 Telephone encounter Greta Joyceelizabeth [facility] Work Phone: [facility] Comment on above: Medication Problem Start: 03-22-2025 End: 03-22-[address] Mariano Pearce DO Work Phone: [facility] Work Phone: Start: 03-22-2025 End: 03-22-2025 Patient encounter procedure Demetra DIANAC -Sleep Lab Work Phone: Start: 03-22-2025 End: 03-22-2025 ambulatory Mariano Pearce Facility:[facility] Start: 03-15-2025 End: 03-17-2025 Follow-up encounter Keaton Shannon PA-C Work Phone: [facility] Comment on above: mamm rsults Start: 03-14-2025 ambulatory MARIANO L PEARCE Facil ity:[facility] Start: 03-14-2025 End: 03-14-2025 Subsequent hospital visit by physician [facility] Start: 03-10-2025 End: 03-10-2025 ambulatory MARIANO L PEARCE Facility:[facility] Start: 03-02-2025 End: 03-03-2025 ambulatory MARIANO L PEARCE Facility:[facility] Start: 03-02-2025 End: 03-02-2025 ambulatory MARIANO L PEARCE Facility:[facility] Start: 03-02-2025 End: 03-02-2025 Patient encounter procedure Blanca King APRN.[employer]ARP DYEING TENDER Work Phone: Gastroenterology Comment on above: Cirrhosis of liver w ithout ascites, unspecified hepatic cirrhosis type (HCC); Abnormal liver ultrasound Start: 03-02-2025 End: 03-02-2025 ambulatory MARIANO L PEARCE Facility:[facility] Start: 03-01-2025 End: 03-02-2025 Refill Mariano L Pearce DO Work Phone: [facility] [place] Comment on above: Refill Request Start: 02-24-2025 End: 02-24-2025 Telephone encounter Mariano L Pearce DO Work Phone: [facility] [place] Start: 02-10-2025 End: 03-07-2025 [facility] Work Phone: Neurology Start: 02-07-2025 End: 02-07-2025 Telephone encounter Demetra Navarrete APRN.CNP Work Phone: [facility] [place] Comment on above: Medication Problem Start: 02-02-2025 End: 02-03-2025 Follow-up encounter Demetra Navarrete APRN.CNP Work Phone: [facility] [place] Comment on above: Results Start: 02-01-2025 End: 02-01-2025 ambulatory MARIANO L PEARCE Facility:[facility] Start: 02-01-2025 End: 02-01-2025 Office outpatient visit 40 minutes Demetra Navarrete APRN.CNP Work Phone: [facility] [place] Comment on above: Urinary frequency (P rimary Dx); Burning with urination; Proteinuria, unspecified type; Chronic insomnia; Snoring; Drooling; Daytime hypersomnia; Fatty liver; Iron 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, unspecified iron 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 type; Acquired hypothyroidism; Occult blood in stools Start: 01-31-2025 End: 02-02-2025 Refill Mariano L Pearce DO Work Phone: [facility] [place] Comment on above: Refill Request Start: 01-17-2025 End: 01-17-2025 Refill Mariano L Pearce DO Work Phone: [facility] [place] Comment on above: Refill Request Start: 01-07-2025 End: 03-09-2025 Follow-up encounter Greta Watts [facility] Work Phone: [facility] Start: 01-06-2025 End: 01-06-2025 ambulatory MARIANO L PEARCE Facility:[facility] Start: 01-06-2025 End: 01-06-2025 Patient encounter procedure Greta Watts [facility] Work Phone: [facility] Comment on above: Type 2 diabetes maite itus with stage 3 chronic kidney disease, with long-term current use of insulin, unspecified whether stage 3a or 3b CKD (HCC) (Primary Dx) Start: 12-20-2024 End: 12-20-2024 Refill Mariano L Pearce DO Work Phone: [facility] [place] Comment on above: Refill Request Start: 12-17-2024 End: 12-20-2024 Refill Mariano L Pearce DO Work Phone: [facility] [place] Comment on above: Refill Request Start: 12-02-2024 End: 12-02-2024 ambulatory MARIANO L PEARCE Facility:[facility] Start: 12-02-2024 End: 12-02-2024 Patient encounter procedure Greta Watts [facility] Work Phone: [facility] Comment on above: Type 2 diabetes maite itus with stage 3 chronic kidney disease, with long-term current use of insulin, unspecified whether stage 3a or 3b CKD (HCC) (Primary Dx) Start: 12-01-2024 End: 12-03-2024 Telephone encounter Mariano L Pearce DO Work Phone: [facility] [place] Start: 11-26-2024 End: 11-26-2024 ambulatory MARIANO L PEARCE Facility:[facility] Start: 11-26-2024 End: 11-26-2024 Subsequent hospital visit by physician [facility] Work Phone: Radiology Comment on above: Fatty liver [K76.0] Start: 11-22-2024 End: 11-22-2024 Telephone encounter Mariano L Pearce DO Work Phone: [facility] [place] Comment on above: Results Start: 11-22-2024 End: 11-22-2024 Patient encounter procedure Kim Quinn MD Work Phone: General Surgery Comment on above: Anemia, unspecified type; External hemorrhoids Start: 11-22-2024 End: 11-22-2024 ambulatory MARIANO L PEARCE Facility:[facility] Start: 11-19-2024 End: 2024 Refill Mariano Freedmanrison DO Work Phone: [facility] [place] Comment on above: Refill Request; Resu lts Start: 11-03-2024 End: 11-03-2024 Patient encounter procedure Mariano Freedmanrison DO Work Phone: [facility] [place] Comment on above: Type 2 diabetes maite itus with stage 3 chronic kidney disease, with long-term current use of insulin, unspecified whether stage 3a or 3b CKD (HCC) (Primary Dx); Encounter for screening mammogram for malignant neoplasm of breast; Anemia, unspecified type; External hemorrhoids; Acquired hypothyroidism; Gastrointestinal hemorrhage with melena; Spleen enlarged; Positive fecal occult blood test; Dyslipidemia; Mixed hyperlipidemia; Essential hypertension, benign Start: 11-03-2024 End: 11-03-2024 ambulatory MARIANO FREEDMANRISON Facility:[facility] Start: 11-03-2024 End: 11-03-2024 Subsequent hospital visit by physician [facility] Comment on above: Gastrointestinal hem orrhage with melena [K92.1] Start: 11-02-2024 End: 11-02-2024 Refill Naya Ruvalcaba APRN.CNP [facility] Comment on above: Refill Request Start: 11-01-2024 End: 11-01-2024 Refill Naya Ruvalcaba APRN.CNP Work Phone: [facility] [place] Start: 10-25-2024 End: 10-25-2024 Refill Mariano Freedmanrison DO Work Phone: [facility] [place] Comment on above: Refill Request Start: 10-19-2024 End: 10-26-2024 Telephone encounter Demetra Navarrete APRN.CNP Work Phone: [facility] [place] Comment on above: Results Forms (Patient Tracie tance Program 2024 Renewal ([facility])) Start: 10-18-2024 End: 10-18-2024 ambulatory MARIANO L PEARCE Facility:[facility] Start: 10-13-2024 End: 10-13-2024 Telephone encounter Naya Ruvalcaba APRN.CNP Work Phone: [facility] [place] Comment on above: Results Start: 10-11-2024 End: 10-11-2024 Telephone encounter Naya Ruvalcaba APRN.CNP Work Phone: [facility] [place] Comment on above: Results Start: 10-11-2024 End: 10-11-2024 ambulatory MARIANO L PEARCE Facility:[facility] Start: 10-11-2024 End: 10-11-2024 Subsequent hospital visit by physician [facility] Work Phone: Radiology Comment on above: Anemia, unspecified type [D64.9] Start: 10-08-2024 ambulatory MARIANO L PEARCE Facil ity:[facility] Start: 10-08-2024 End: 10-08-2024 Subsequent hospital visit by physician [facility] Work Phone: Radiology Start: 10-07-2024 End: 10-07-2024 ambulatory MARIANO L PEARCE Facility:[facility] Start: 10-07-2024 End: 10-07-2024 ambulatory MARIANO L PEARCE Facility:[facility] Start: 10-07-2024 End: 10-07-2024 Patient encounter procedure Naya Ruvalcaba APRN.WARP DYEING TENDER Work Phone: [facility] [place] Comment on above: Anemia, unspecified type (Primary Dx); Abdominal bloating; Type 2 diabetes mellitus with stage 3 chronic kidney disease, with long-term current use of insulin, unspecified whether stage 3a or 3b CKD (HCC); Dyslipidemia; Myalgia, lower leg Start: 10-06-2024 End: 10-07-2024 Telephone encounter Mariano L Pearce DO Work Phone: [facility] [place] Comment on above: Patient Update Start: 09-30-2024 End: 09-30-2024 ambulatory MARIANO L PEARCE Facility:[facility] Start: 09-30-2024 End: 09-30-2024 Patient encounter procedure Greta Watts [facility] Work Phone: [facility] Comment on above: Type 2 diabetes maite itus with stage 3 chronic kidney disease, with long-term current use of insulin, unspecified whether stage 3a or 3b CKD (HCC) (Primary Dx) Start: 09-23-2024 End: 09-24-2024 Refill Mariano Cobos Pearce DO Work Phone: [facility] [place] Comment on above: Refill Request Start: 09-06-2024 End: 09-06-2024 Telephone encounter Greta Watts [facility] Work Phone: [facility] Comment on above: Medication Problem ( Freestyle Betsey 3) Start: 09-02-2024 End: 09-02-2024 Patient encounter procedure Greta Paneccaezequiel [facility] Work Phone: [facility] Comment on above: Type 2 diabetes maite itus with stage 3 chronic kidney disease, with long-term current use of insulin, unspecified whether stage 3a or 3b CKD (HCC) (Primary Dx) Start: 08-24-2024 End: 08-24-2024 Refill Mariano Freedmanrison DO Work Phone: [facility] [place] Comment on above: Refill Request Start: 08-04-2024 End: 08-11-2024 Telephone encounter Mariano Freedmanrison DO Work Phone: [facility] [place] Comment on above: Medication Problem Start: 08-03-2024 End: 08-03-2024 Refill Mariano Papito Pearce DO Work Phone: [facility] [place] Comment on above: Refill Request Start: 08-02-2024 End: 08-04-2024 Telephone encounter Mariano Freedmanrison DO Work Phone: [facility] [place] Comment on above: Medication Problem Start: 07-30-2024 End: 07-30-2024 Telephone encounter Greta Joyceezequiel [facility] Work Phone: [facility] Comment on above: Patient Update; Geri ent Request Start: 07-28-2024 End: 07-29-2024 Telephone encounter Demetra Branchmariely MARAVILLA.WARP DYEING TENDER Work Phone: [facility] [place] Comment on above: Results Start: 07-27-2024 End: 07-27-2024 Telephone encounter Demetra Branchmariely MARAVILLA.WARP DYEING TENDER Work Phone: [facility] [place] Comment on above: Medication Problem Start: 07-27-2024 End: 07-27-2024 Patient encounter procedure Demetra Branchmariely MARAVILLA.WARP DYEING TENDER Work Phone: [facility] [place] Comment on above: Type 2 diabetes maite itus with stage 3 chronic kidney disease, with long-term current use of insulin, unspecified whether stage 3a or 3b CKD (HCC) (Primary Dx); Acquired hypothyroidism; Hypertension, unspecified type; Chronic insomnia; Daytime sleepiness Start: 07-01-2024 End: 07-01-2024 [facility] Work [facility]: [facility] Comment on above: Type 2 diabetes maite itus with stage 3 chronic kidney disease, with long-term current use of insulin, unspecified whether stage 3a or 3b CKD (HCC) (Primary Dx) Start: 06-30-2024 Refill Mariano taylor DO Work Phone: [facility] [place] Comment on above: Refill Request Start: 06-03-2024 End: 06-03-2024 [facility] Work Phone: [facility] Comment on above: Type 2 diabetes maite itus with stage 3 chronic kidney disease, with long-term current use of insulin, unspecified whether stage 3a or 3b CKD (HCC) (Primary Dx) Start: 05-06-2024 Refill Mariano Combs son DO Work Phone: [facility] [place] Comment on above: Refill Request; Medi cation Problem Refill Request Start: 04-27-2024 Telephone encounter Mariano neely DO Work Phone: [facility] [place] Comment on above: Patient Question Start: 04-23-2024 End: 04-23-2024 Patient encounter procedure Mariano Pearce DO Work Phone: [facility] [place] Comment on above: Type 2 diabetes maite itus with stage 3 chronic kidney disease, with long-term current use of insulin, unspecified whether stage 3a or 3b CKD (HCC) (Primary Dx); Anxiety as acute reaction to exceptional stress; Anemia, unspecified type; Hypertension, unspecified type; Acquired hypothyroidism; Chronic insomnia; Dyslipidemia; Fatigue, unspecified type; PMR (polymyalgia rheumatica) ([facility]); Platelets decreased (HCC) Start: 04-20-2024 Refill Mariano taylor DO Work Phone: [facility] [place] Comment on above: Refill Request Start: 04-13-2024 Telephone encounter Mariano neely DO Work Phone: [facility] [place] Comment on above: Insurance Authorizat ion Start: 04-08-[address] schuster CUSTOMER CARE REPRESENTATIVE.WARP DYEING TENDER Work Phone: [facility] [place] Comment on above: Results Start: 04-06-2024 Refill Mariano taylor DO Work Phone: [facility] [place] Comment on above: Refill Request Start: 04-05-2024 Telephone encounter Mariano neely DO Work Phone: [facility] [place] Start: 03-04-2024 Refill Mariano taylor DO Work Phone: [facility] [place] Comment on above: Refill Request Start: 03-01-2024 Refill Mariano taylor DO Work Phone: [facility] [place] Comment on above: Refill Request (Radha etienne) Start: 02-27-2024 Documentation procedure Mammog junito Coordinator [facility] Start: 02-27-2024 Letter encounter Mammography Coordinator [facility] Department Start: 02-27-[address] schuster CUSTOMER CARE REPRESENTATIVE.WARP DYEING TENDER Work Phone: [facility] [place] Comment on above: Results Start: 02-26-2024 End: 02-26-2024 Subsequent hospital visit by physician [facility] Comment on above: Encounter for screen ing mammogram for breast cancer [Z12.31] Start: 02-20-2024 Refill Mariano taylor DO Work Phone: [facility] [place] Comment on above: Refill Request Start: 02-19-2024 Refill Naya Ruvalcaba CUSTOMER CARE REPRESENTATIVE.WARP DYEING TENDER Work Phone: [facility] [place] Comment on above: Refill Request Start: 02-03-2024 Refill Mariano taylor DO Work Phone: [facility] [place] Comment on above: Refill Request Start: 01-29-2024 End: 01-29-2024 Patient encounter procedure Grtea [facility] Work Phone: [facility] Comment on above: Type 2 diabetes maite itus with stage 3 chronic kidney disease, with long-term current use of insulin, unspecified whether stage 3a or 3b CKD (HCC) (Primary Dx) Refill Request Start: 01-26-2024 Refill Naya Ruvalcaba CUSTOMER CARE REPRESENTATIVE.WARP DYEING TENDER Work Phone: [facility] [place] Comment on above: Refill Request Start: 01-22-2024 Telephone encounter Greta [facility] Work Phone: [facility] Comment on above: Patient Update (2023 [facility] Patient Assistance Approval) Start: 01-16-[address] schuster CUSTOMER CARE REPRESENTATIVE.WARP DYEING TENDER Work Phone: [facility] [place] Comment on above: Results Start: 01-15-2024 End: 01-15-2024 Patient encounter procedure Demetra Rosalba CUSTOMER CARE REPRESENTATIVE.WARP DYEING TENDER Work Phone: [facility] [place] Comment on above: Uncontrolled type 2 diabetes mellitus with hyperglycemia (HCC) (Primary Dx); Acquired hypothyroidism; Chronic insomnia; Situational anxiety; Encounter for screening mammogram for breast cancer; Sore throat; Acute cough; Otalgia of both ears Start: 12-15-2023 Telephone encounter Greta [facility] Work Phone: [facility] Comment on above: Forms Start: 11-05-2023 Telephone encounter Greta Watts [facility] Work Phone: [facility] Comment on above: Medication Problem Start: 10-30-2023 End: 10-30-2023 Patient encounter procedure Greta Watts [facility] Work Phone: [facility] Comment on above: Type 2 diabetes maite itus with stage 3 chronic kidney disease, with long-term current use of insulin, unspecified whether stage 3a or 3b CKD (HCC) (Primary Dx) Start: 10-21-2023 Telephone encounter Greta Watts [facility] Work Phone: [facility] [place] Comment on above: Medication Assistanc e Start: 10-15-2023 End: 10-15-2023 Patient encounter procedure Mariano Pearce DO Work Phone: [facility] [place] Comment on above: Uncontrolled type 2 diabetes mellitus with hyperglycemia (HCC) (Primary Dx); Diarrhea, unspecified type; Acquired hypothyroidism; Hypertension, unspecified type; Dyslipidemia; Platelets decreased (HCC) Start: 10-14-2023 Telephone encounter Greta Watts [facility] Work Phone: [facility] Comment on above: Patient Update Start: 10-08-2023 Refill Mariano taylor DO Work Phone: [facility] [place] Comment on above: Opened In Error Refill Request Start: 10-02-2023 Refill Mariano taylor DO Work Phone: [facility] [place] Comment on above: Refill Request Start: 09-22-2023 Refill Mariano taylor DO Work Phone: [facility] [place] Comment on above: Refill Request Start: 09-11-2023 End: 09-11-2023 Patient encounter procedure Greta Watts [facility] Work Phone: [facility] Comment on above: Type 2 diabetes maite itus with stage 3 chronic kidney disease, with long-term current use of insulin, unspecified whether stage 3a or 3b CKD (HCC) (Primary Dx) Start: 08-26-2023 ambulatory Mariano taylor DO Work Phone: [facility] [place] Comment on above: Diarrhea Start: 08-25-2023 Telephone encounter Mariano neely DO Work Phone: [facility] Comment on above: Diarrhea Start: 08-19-2023 Telephone encounter Mariano neely DO Work Phone: [facility] [place] Comment on above: Patient OV notes Start: 08-15-2023 Refill Mariano taylor DO Work Phone: Podiatry Comment on above: Refill Request Start: 07-31-2023 Telephone encounter Mariano neely DO Work Phone: [facility] [place] Comment on above: Patient Question Start: 07-30-2023 End: 07-30-2023 Patient encounter procedure Mariano Pearce DO Work Phone: [facility] [place] Comment on above: Diarrhea, unspecifie d type (Primary Dx); Need for influenza vaccination; Medication side effect; Uncontrolled type 2 diabetes mellitus with hyperglycemia ([facility]); Need for pneumococcal 20-valent conjugate vaccination; Acute non-recurrent maxillary sinusitis; Anemia, unspecified type; Fatigue, unspecified type; PMR (polymyalgia rheumatica) ([facility]); Type 2 diabetes mellitus with stage 3 chronic kidney disease, with long-term current use of insulin, unspecified whether stage 3a or 3b CKD ([facility]) Start: 07-23-2023 Refill Mariano taylor DO Work Phone: [address] [place] [address] Comment on above: Refill Request; Refi ll Request Start: 07-17-2023 Refill Mariano taylor DO Work Phone: [facility] [place] Comment on above: Refill Request Start: 07-15-2023 End: 07-15-2023 Patient encounter procedure Rola Muro MD Work Phone: General Surgery Comment on above: Change in bowel habi ts (Primary Dx); Diarrhea, unspecified type Start: 07-04-2023 ambulatory MARIANO PEARCE [facility] it:[facility] Start: 07-04-2023 End: 07-04-2023 Subsequent hospital visit by physician Rola Muro MD Work Phone: [facility] Comment on above: Diarrhea, unspecifie d type [R19.7] Start: 06-26-2023 Telephone encounter Mariano Papito Joey neely DO Work Phone: [facility] [place] Comment on above: Medication Question (insulin dosing for colon prep days) Start: 06-16-2023 Telephone encounter April Duran PA-C Work Phone: [facility] [place] Comment on above: Results Start: 06-11-2023 End: 06-11-2023 Patient encounter procedure Vanessa Graf CARRILLO Work Phone: General Surgery Comment on above: Calculus of gallblad shon with chronic cholecystitis without obstruction (Primary Dx); Right upper quadrant pain; S/P laparoscopic cholecystectomy Start: 06-04-2023 End: 06-04-2023 ambulatory ROLA MURO Facility:[facility] Start: 05-21-2023 End: 05-21-2023 Admission to establishment [facility] [place] 1 Work Phone: [facility] [place] Start: 05-21-2023 End: 05-21-2023 ambulatory [facility] [place] [facility] Work Phone: Pre Anesthesia Comment on above: Pre-operative examin ation (Primary Dx); Type 2 diabetes mellitus without complication, with long-term current use of insulin ([facility]); Class 1 obesity due to excess calories with body mass index (BMI) of 32.0 to 32.9 in adult, unspecified whether serious comorbidity present; Fatty liver; Situational anxiety; Gout involving toe of right foot, unspecified cause, unspecified chronicity; Hypertensive kidney disease with stage 3 chronic kidney disease, unspecified whether stage 3a or 3b CKD ([facility]); RLS (restless legs syndrome); Dyslipidemia; GERD without esophagitis; PMR (polymyalgia rheumatica) ([facility]); Chronic kidney disease (CKD) stage G3a/A2, moderately decreased glomerular filtration rate (GFR) between 45-59 mL/min/1.73 square meter and albuminuria creatinine ratio between 30-299 mg/g ([facility]) Start: 05-21-2023 End: 05-21-2023 Preprocedural examination done [facility] [place] [facility] Work Phone: [facility] Work Phone: Start: 05-05-2023 Telephone encounter Mariano neely DO Work Phone: [facility] [place] Comment on above: Results; Patient Upd ate Results (US and stoo l test) Start: 04-24-2023 Telephone encounter Matt Calix ezequiel [facility] Work Phone: [facility] Comment on above: Results (A1c) Start: 04-23-2023 End: 04-23-2023 Subsequent hospital visit by physician [facility] Work Phone: Radiology Comment on above: Change in bowel habi ts [R19.4] Start: 04-16-2023 Telephone encounter Vanessa anthony PA-C Work Phone: General Surgery Comment on above: 07/04/2023 colon/egd escalante ; 06/04/2023 lap tosha escalante Start: 04-16-2023 End: 04-16-2023 Patient encounter procedure Vanessa Gary PA-C Work Phone: General Surgery Comment on above: Diarrhea, unspecifie d type (Primary Dx); Generalized abdominal pain; Change in bowel habits; Right upper quadrant pain Start: 03-25-2023 End: 03-25-2023 Patient encounter procedure Beth Ahuja MD Work Phone: Neurology Comment on above: Post-traumatic heada renaldo, not intractable, unspecified chronicity pattern (Primary Dx); Abnormal head CT Start: 02-26-2023 Telephone encounter Mariano neely DO Work Phone: [facility] [place] Comment on above: Results Start: 02-24-2023 Documentation procedure Mammog junito Coordinator [facility] Start: 02-24-2023 Letter encounter Mammography Coordinator [facility] Department Start: 02-24-2023 Telephone encounter Demetra Loaiza APRN.CNP Work Phone: [facility] [place] Comment on above: Results Start: 02-24-2023 End: 02-24-2023 Subsequent hospital visit by physician [facility] Comment on above: Encounter for screen ing mammogram for malignant neoplasm of breast [Z12.31] Start: 02-20-2023 End: 02-20-2023 Patient encounter procedure Matt Arnold [facility] Work Phone: [facility] Comment on above: Type 2 diabetes maite itus with stage 3 chronic kidney disease, with long-term current use of insulin, unspecified whether stage 3a or 3b CKD (HCC) (Primary Dx); Medication management; Essential hypertension, benign; Dyslipidemia Start: 02-13-2023 Telephone encounter Mariano neely DO Work Phone: [facility] [place] Comment on above: Patient Update Start: 02-11-2023 End: 02-11-2023 Patient encounter procedure Mariano Pearce DO Work Phone: [facility] [place] Comment on above: Encounter for screen ing mammogram for malignant neoplasm of breast (Primary Dx); History of head injury; Increased frequency of headaches; Headache, worsening; Abnormal CT of brain Start: 02-10-2023 End: 02-10-2023 Subsequent hospital visit by physician [facility] Work Phone: Cat Scan Comment on above: Syncope, unspecified syncope type [R55] Start: 01-29-2023 Refill Naya Ruvalcaba APRN.CNP Work Phone: [facility] [place] Comment on above: Refill Request Start: 01-28-2023 End: 01-28-2023 Patient encounter procedure Mariano Pearce DO Work Phone: [facility] [place] Comment on above: Uncontrolled type 2 diabetes mellitus with hyperglycemia (HCC) (Primary Dx); Syncope, unspecified syncope type; History of head injury; Increased frequency of headaches; Headache, worsening; Short-term memory loss; Essential hypertension, benign; Hypertension, unspecified type; Acquired hypothyroidism Start: 01-16-2023 End: 01-16-2023 Patient encounter procedure Matt Arnold [facility] Work Phone: [facility] Comment on above: Type 2 diabetes maite itus with stage 3 chronic kidney disease, with long-term current use of insulin, unspecified whether stage 3a or 3b CKD (HCC) (Primary Dx); Medication management Start: 01-13-2023 Telephone encounter Mariano neely DO Work Phone: [facility] [place] Comment on above: Release Of Medical R ecords Start: 12-06-2022 Telephone encounter Mtat garcía [facility] Work Phone: [facility] Comment on above: Patient Question Start: 12-05-2022 End: 12-05-2022 Patient encounter procedure Matt Arnold [facility] Work Phone: [facility] Comment on above: Type 2 diabetes maite itus with stage 3 chronic kidney disease, with long-term current use of insulin, unspecified whether stage 3a or 3b CKD (HCC) (Primary Dx) Start: 12-03-2022 Refill Mariano taylor DO Work Phone: [facility] [place] Comment on above: Refill Request Start: 11-15-2022 Telephone encounter Mariano neely DO Work Phone: [facility] [place] Comment on above: Patient Update Start: 11-12-2022 Telephone encounter Mariano neely DO Work Phone: [facility] [place] Comment on above: Sinus Problem Start: 10-31-2022 Refill Mariano taylor DO Work Phone: [facility] [place] Comment on above: Refill Request Start: 10-31-2022 Refill Mariano taylor DO Work Phone: [facility] Comment on above: Med Change Request Start: 10-30-2022 End: 10-30-2022 Patient encounter procedure Mariano Pearce DO Work Phone: [facility] [place] Comment on above: Acute non-recurrent maxillary sinusitis (Primary Dx); Acute cough; Chronic insomnia; Situational anxiety; Hypertension, unspecified type; Acquired hypothyroidism; Dyslipidemia; Type 2 diabetes mellitus with stage 3 chronic kidney disease, with long-term current use of insulin, unspecified whether stage 3a or 3b CKD (HCC); Vitamin B12 deficiency; Vitamin D deficiency Start: 10-28-2022 Telephone encounter Matt garcía [facility] Work Phone: [facility] Comment on above: Results Start: 10-24-2022 End: 10-24-2022 Patient encounter procedure Matt Arnold [facility] Work Phone: [facility] Comment on above: Type 2 diabetes maite itus with stage 3 chronic kidney disease, with long-term current use of insulin, unspecified whether stage 3a or 3b CKD (HCC) (Primary Dx); Dyslipidemia Start: 10-17-2022 Telephone encounter Matt garcía [facility] Work Phone: [facility] Comment on above: Forms ([employer] P AP Renewal 2022 (Humalog and Basaglar)) Start: 10-14-2022 Refill Mariano taylor DO Work Phone: [facility] [place] Comment on above: Refill Request Start: 09-23-2022 Refill Mariano taylor DO Work Phone: [facility] [place] Comment on above: Refill Request Start: 09-04-2022 Refill Mariano taylor DO Work Phone: [facility] [place] Comment on above: Refill Request Start: 08-28-2022 Refill Mariano taylor DO Work Phone: [facility] [place] Start: 08-22-2022 End: 08-22-2022 Patient encounter procedure Matt Arnold [facility] Work Phone: [facility] Comment on above: Type 2 diabetes maite itus with stage 3 chronic kidney disease, with long-term current use of insulin, unspecified whether stage 3a or 3b CKD (HCC) (Primary Dx) Start: 08-14-2022 Telephone encounter Mariano zuletaclint DO Work Phone: [facility] [place] Comment on above: Patient Question Start: 08-12-2022 Refill Mariano taylor DO Work Phone: [facility] [place] Comment on above: Refill Request Start: 08-07-2022 Telephone encounter Mariano zuletaclint DO Work Phone: [facility] [place] Comment on above: Results Start: 08-01-2022 End: 08-01-2022 Subsequent hospital visit by physician [facility] Work Phone: Radiology Comment on above: RUQ abdominal pain [ R10.11] Start: 07-29-2022 Telephone encounter Matt garcía [facility] Work Phone: [facility] Comment on above: Medication Problem ( Jardiance cost) Start: 07-29-2022 End: 07-29-2022 Patient encounter procedure Mariano Pearce DO Work Phone: [facility] [place] Comment on above: Type 2 diabetes maite itus with stage 3 chronic kidney disease, with long-term current use of insulin, unspecified whether stage 3a or 3b CKD (HCC) (Primary Dx); Dyslipidemia; Need for influenza vaccination; Yeast infection; RUQ abdominal pain; Situational anxiety; Acquired hypothyroidism; Essential hypertension, benign; Osteopenia, senile; Mixed hyperlipidemia; Vitamin D deficiency; Recurrent UTI (urinary tract infection) Start: 07-11-2022 End: 07-11-2022 Patient encounter procedure Matt Arnold [facility] Work Phone: [facility] Comment on above: Type 2 diabetes maite itus with stage 3 chronic kidney disease, with long-term current use of insulin, unspecified whether stage 3a or 3b CKD (HCC) (Primary Dx) Start: 06-20-2022 Refill Naya ramirez CUSTOMER CARE REPRESENTATIVEKIARA Work Phone: [facility] [place] Comment on above: Refill Request Start: 06-10-2022 End: 06-10-2022 Refill Mariano Pearce DO Work Phone: [facility] [place] Comment on above: Refill Request Type 2 diabetes maite itus with stage 3 chronic kidney disease, with long-term current use of insulin, unspecified whether stage 3a or 3b CKD (HCC) (Primary Dx) Start: 05-14-2022 Telephone encounter Farhad Pjjuan [facility] Work Phone: [facility] Comment on above: Returning Patient's Call Start: 05-10-2022 Documentation procedure Mammog junito Coordinator [facility] Start: 05-10-2022 Letter encounter Mammography Coordinator [facility] Department Start: 05-10-2022 End: 05-10-2022 Refill Mariano Pearce DO Work Phone: [facility] [place] Comment on above: Refill Request Visit for screening mammogram [Z12.31] Results Start: 04-11-2022 Refill Demetra Angelina avelar CUSTOMER CARE REPRESENTATIVE.WARP DYEING TENDER Work Phone: [facility] [place] Comment on above: Refill Request Start: 04-10-2022 End: 04-10-2022 Patient encounter procedure Farhad Pimentel [facility] Work Phone: [facility] Comment on above: Type 2 diabetes maite itus with stage 3 chronic kidney disease, with long-term current use of insulin, unspecified whether stage 3a or 3b CKD (HCC) Start: 03-11-2022 Refill Mariano Combs jaymie DO Work Phone: [facility] [place] Comment on above: Refill Request Start: 02-25-2022 Telephone encounter Mariano neely DO Work Phone: [facility] [place] Comment on above: Insurance Authorizat ion Start: 02-05-2022 Telephone encounter Farhad Pimentel [facility] Work Phone: [facility] Comment on above: Results (A1c) Start: 12-10-2021 End: 12-10-2021 Subsequent hospital visit by physician [facility] [place] Work Phone: Radiology Comment on above: Cough [R05.9] Start: 03-19-2018 End: 03-19-2018 Ambulatory [facility] Start: 03-16-2010 End: 12-14-2014 Patient encounter status Mariano Pearce DO Work Phone: [facility] Work Phone: Procedures Date Procedure Procedure Detail Performing Clinician Start: 06-01-2025 3d rendering w/interp&postproc diff work station Blanca King APRN.WARP DYEING TENDER Work Phone: Start: 06-01-2025 Mri abdomen w/o & w/contrast material Blanca King APRN.WARP DYEING TENDER Work Phone: Start: 05-04-2025 Urnls dip stick/tablet rgnt auto w/o microscopy Caridad Chapman CUSTOMER CARE REPRESENTATIVE.WARP DYEING TENDER Work Phone: Start: 03-14-2025 Screening digital breast tomosynthesis bi Mariano Pearce DO Work Phone: Start: 02-01-2025 Urnls dip stick/tablet rgnt auto w/o microscopy Demetra Branchutzman CUSTOMER CARE REPRESENTATIVE.WARP DYEING TENDER Work Phone: Start: 01-15-2024 COVID & INFLUENZA A/B & RSV NAAT, ROUTINE Demetra Rosalba CUSTOMER CARE REPRESENTATIVE.WARP DYEING TENDER Work Phone: Start: 01-15-2024 STREP A MOLECULAR (POC) Demetraолег Navarrete CUSTOMER CARE REPRESENTATIVE.WARP DYEING TENDER Work Phone: Start: 07-30-2023 Hemoglobin A1c/Hemoglobin.total in Blood Mariano Pearce DO Work Phone: Start: 07-30-2023 INFLUENZA VACCINE, PRSV FREE, AGE 65+ YR, HIGH DOSE, QUADRIVALENT (FLUZONE HIGH-DOSE) Mariano Pearce DO Work Phone: Start: 07-04-2023 Gluc bld gluc mntr dev cleared fda spec home use Barney Kandrac CUSTOMER CARE REPRESENTATIVE.OPTICAL TECHNICIAN Work Phone: Start: 07-04-2023 Colonoscopy flx dx w/collj spec when pfrmd Vanessa Gary PA-C Work Phone: Start: 07-04-2023 Gluc bld gluc mntr dev cleared fda spec home use Barney Kandrac CUSTOMER CARE REPRESENTATIVE.OPTICAL TECHNICIAN Work Phone: Start: 07-04-2023 Esophagogastroduodenoscopy transoral diagnostic Vanessa Gary PA-C Work Phone: Start: 07-04-2023 Colonoscopy Rola Muro MD Work Phone: Start: 04-23-2023 Us abdominal real time w/image limited Vanessa Gary PA-C Work Phone: Start: 02-24-2023 End: 02-24-2023 Mammography Mariano Pearce DO Work Phone: Start: 02-10-2023 Ct head/brain w/o contrast material Mariano Pearce DO Work Phone: Start: 01-28-2023 Ecg routine ecg w/least 12 lds i&r only [facility] Provider Start: 07-29-2022 INFLUENZA SEASONAL QUADRIVALENT HIGH DOSE AGE 65+ Mariano Pearce DO Work Phone: Start: 05-10-2022 End: 05-10-2022 Mammography Mariano Pearce DO Work Phone: Start: 04-23-2022 Adult depression screening assessment Mariano Pearce DO Work Phone: Start: 12-10-2021 Radiologic exam chest 2 views Zhou Sebastian MD Work Phone: Start: 05-07-2021 Mammography Farhad Pimentel [facility] Work Phone: Start: 03-05-2021 Adult depression screening assessment Farhad Pimentel [facility] Work Phone: Start: 07-04-2014 Colonoscopy Farhad Pimentel [facility] Work Phone: History of cholecystectomy S/P l aparoscopic cholecystectomy Vanessa Gary PA-C Work Phone: Plan of Treatment Date Care Activity Detail Author Start: 07-04-2033 Colonoscopy COLONOSCOPY [facility] Start: 07-04-2033 COLORECTAL CANCER SCREENING COLORECTAL CANCER SCREENING [facility] Start: 07-04-2033 Screening for malignant neoplasm of colon [facility] Start: 07-04-2028 Screening for malignant neoplasm of colon [facility] Start: 07-27-2026 Complete blood count Hemoglobin/Hematocrit [facility] Start: 07-27-2026 Hepatitis B screening Urine Albumin:Creatinine Ratio [facility] Start: 07-27-2026 Hepatitis B surface antibody level LDL Cholesterol [facility] Start: 06-28-2026 Glaucoma screening Dilated Retinal Exam [facility] Start: 05-04-2026 Annual PCP Team Chronic Disease Visit Annual PCP Team Chronic Disease Visit [facility] Start: 03-14-2026 Screening for malignant neoplasm of breast Mammogram Screening [facility] Start: 03-02-2026 Complete blood count Hemoglobin/Hematocrit [facility] Start: 03-02-2026 Creatinine measurement Serum Creatinine [facility] Start: 02-25-2026 Screening for malignant neoplasm of colon Fecal Occult Blood [facility] Start: 02-01-2026 Annual PCP Team Chronic Disease Visit Annual PCP Team Chronic Disease Visit [facility] Start: 02-01-2026 BP Controlled (<130/80) BP Controlled (<130/80) [facility] Start: 01-06-2026 Complete blood count Hemoglobin/Hematocrit [facility] Start: 11-22-2025 BP Controlled (<130/80) BP Controlled (<130/80) [facility] Start: 11-03-2025 Annual PCP Team Chronic Disease Visit Annual PCP Team Chronic Disease Visit [facility] Start: 11-03-2025 BP Controlled (<130/80) BP Controlled (<130/80) [facility] Start: 11-03-2025 Complete blood count Hemoglobin/Hematocrit [facility] Start: 11-03-2025 Creatinine measurement Serum Creatinine [facility] Start: 11-03-2025 Diabetic foot examination Diabetic Foot Exam [facility] Start: 10-26-2025 Hemoglobin A1c measurement HbA1C [facility] Start: 10-18-2025 Creatinine measurement Serum Creatinine [facility] Start: 10-07-2025 Annual PCP Team Chronic Disease Visit Annual PCP Team Chronic Disease Visit [facility] Start: 10-07-2025 BP Controlled (<130/80) BP Controlled (<130/80) [facility] Start: 10-07-2025 Covid-19 Vaccine () Covid-19 Vaccine () [facility] [place] Comment on above: Postponed from 07/18/2024 (Declined at t his time) Start: 10-07-2025 Covid-19 Vaccine () Covid-19 Vaccine () [facility] Comment on above: Postponed from 07/18/2024 (Declined at t his time) Start: 10-07-2025 Screening for malignant neoplasm of colon Fecal Occult Blood [facility] Start: 10-06-2025 Hemoglobin A1c measurement HbA1C [facility] Start: 09-27-2025 Glaucoma screening Dilated Retinal Exam [facility] Start: 09-22-2025 End: 09-22-2025 Patient encounter procedure 09/22/2025 1:00 PM EST Office Visit Pharm [facility] [address] [place] [address] Greta Watts, [facility] [address] [place] [address] Dm f/up Pharm [facility] Comment on above: Dm f/up Start: 09-18-2025 Urine microalbumin profile [facility] Start: 09-16-2025 End: 09-16-2025 Patient encounter procedure 09/16/2025 10:30 AM EDT Office Visit Gastroenterology [address] [address] Blanca King, CUSTOMER CARE REPRESENTATIVE.WARP DYEING TENDER [address] [place], [place] [id number] f/u appt for cirrhosis Gastroenterology Comment on above: f/u appt for cirrhosis Start: 08-19-2025 End: 08-19-2025 Patient encounter procedure 08/19/2025 1:40 PM EDT Office Visit [facility] [address] [place] [address] Mariano Pearce DO [address] [place], [place] [address] 3 month follow up Family [facility] Comment on above: 3 month follow up Start: 08-04-2025 End: 08-04-2025 Patient encounter procedure 08/04/2025 1:00 PM EDT Office Visit [facility] [address] [place], [place] [phone] Caridad Chapman, CUSTOMER CARE REPRESENTATIVE.WARP DYEING TENDER [address] [place], [place] [address] 3 month follow up Family [facility] Comment on above: 3 month follow up Start: 07-27-2025 Annual PCP Team Chronic Disease Visit Annual PCP Team Chronic Disease Visit [facility] Start: 07-27-2025 Complete blood count Hemoglobin/Hematocrit [facility] Start: 07-27-2025 Creatinine measurement Serum Creatinine [facility] Start: 07-26-2025 Hepatitis B screening Urine Albumin:Creatinine Ratio [facility] Start: 07-18-2025 Influenza vaccination Influenza Vaccine (#1) [facility] Start: 07-12-2025 End: 07-12-2025 Patient encounter procedure 07/12/2025 3:00 PM EDT Office Visit Urology [address] [address] Mimi Perez Jr., MD [address] [place] [address] Urinary frequency [R35.0]; Stress incontinence [N39.3]; Nocturia [R35.1] Urology Comment on above: Urinary frequency [R35.0]; Stress incont inence [N39.3]; Nocturia [R35.1] Start: 07-06-2025 End: 10-05-2025 CBC W Auto Differential panel - Blood COMPLETE BLOOD COUNT AND DIFFERENTIAL Lab Routine Iron 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, unspecified iron 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 type Expected: 07/06/2025, Expires: 10/05/2025 [facility] Comment on above: Expected: 07/06/2025, Expires: Start: 07-06-2025 End: 10-05-2025 Hemoglobin A1c in Blood HEMOGLOBIN A1C Lab Routine Type 2 diabetes mellitus with stage 3a chronic kidney disease, with long-term current use of insulin (HCC) Hypertensive kidney disease with stage 3a chronic kidney disease (HCC) Expected: 07/06/2025, Expires: 10/05/2025 [facility] Work Phone: Comment on above: Expected: 07/06/2025, Expires: Start: 07-06-2025 End: 05-04-2026 Lipid 1996 panel - Serum or Plasma LIPID PANEL, FASTING Lab Routine Cirrhosis of liver without ascites, unspecified hepatic cirrhosis type (HCC) Fatty liver Hypertensive kidney disease with stage 3a chronic kidney disease (HCC) Dyslipidemia Expected: 07/06/2025, Expires: 05/04/2026 [facility] Comment on above: Expected: 07/06/2025, Expires: Start: 07-06-2025 End: 10-05-2025 Microalbumin/Creatinine [Mass Ratio] in Urine ALBUMIN/CREATININE RATIO, URINE Lab Routine Type 2 diabetes mellitus with stage 3 chronic kidney disease, with long-term current use of insulin, unspecified whether stage 3a or 3b CKD (HCC) Expected: 07/06/2025, Expires: 10/05/2025 [facility] Work Phone: Comment on above: Expected: 07/06/2025, Expires: Start: 06-20-2025 End: 06-20-2025 Patient encounter procedure 06/20/2025 11:30 AM EDT Office Visit Gastroenterology [address] [address] Blanca King APRN.WARP DYEING TENDER [address] [facility] [place] [address] f/u appt for cirrhosis Gastroenterology Comment on above: f/u appt for cirrhosis Start: 06-09-2025 End: 06-09-2025 Patient encounter procedure 06/09/2025 1:00 PM EDT Office Visit Pharm [facility] [address] [place], [place] [phone] Greta Watts, [facility] [address] [place] [address] Dm f/up Pharm [facility] Comment on above: Dm f/up Start: 06-01-2025 End: 06-01-2025 Patient encounter procedure 06/01/2025 3:00 PM EDT Appointment Radiology [address] [place], [place] [phone] Cirrhosis of liver without ascites, unspecified hepatic cirrhosis type (HCC) [K74.60] Radiology Comment on above: Cirrhosis of liver without ascites, unsp ecified hepatic cirrhosis type (HCC) [K74.60] Start: 05-27-2025 End: 05-27-2025 Patient encounter procedure 05/27/2025 11:30 AM EDT Office Visit Gastroenterology [address] [address] Blanca King APRN.WARP DYEING TENDER [address] [place] [address] 3 month follow-up with Blanca King Gastroenterology Comment on above: 3 month follow-up with Blanca King Start: 05-27-2025 End: 05-27-2025 ambulatory 05/27/2025 10:40 AM EDT Procedure Gastroenterology [address] [address] Cirrhosis of liver without ascites, unspecified hepatic cirrhosis type (HCC) [K7... Gastroenterology Comment on above: Cirrhosis of liver without ascites, unsp ecified hepatic cirrhosis type (HCC) [K7... Start: 05-04-2025 End: 05-04-2025 Patient encounter procedure [facility] Comment on above: 3 Month follow up Start: 04-23-2025 Annual PCP Team Chronic Disease Visit Annual PCP Team Chronic Disease Visit [facility] Start: 04-23-2025 BP Controlled (<130/80) BP Controlled (<130/80) [facility] in Start: 04-23-2025 Complete blood count Hemoglobin/Hematocrit [facility] Start: 04-07-2025 Complete blood count Hemoglobin/Hematocrit [facility] Start: 04-05-2025 Hemoglobin A1c measurement HbA1C [facility] Start: 03-14-2025 End: 03-14-2025 Patient encounter procedure 03/14/2025 11:30 AM EDT Appointment Mammogram [address] [place] [address] Encounter for screening mammogram for malignant neoplasm of breast [Z12.31] Mammogram Comment on above: Encounter for screening mammogram for ma lignant neoplasm of breast [Z12.31] Start: 03-10-2025 End: 03-10-2025 Patient encounter procedure 03/10/2025 1:00 PM EDT Office Visit [facility] [address] [place], [place] [address] Greta Watts, [facility] [address] [place] [address] Dm f/up [facility] Comment on above: Dm f/up Start: 03-03-2025 End: 03-03-2025 Patient encounter procedure Neurology Comment on above: : Chronic insomnia [F51.04]; Snoring [R0 6.83]; Drooling [K11.7]; Daytime hypersomnia [G47.10] Chronic insomnia; Snoring; Drooling; Daytime hypersomnia Start: 03-02-2025 End: 06-01-2025 Alpha 1 antitrypsin [Mass/volume] in Serum or Plasma [facility] Comment on above: Expected: 03/02/2025, Expires: Start: 03-02-2025 End: 06-01-2025 [id number] [Mass/volume] in Serum or Plasma [facility] Comment on above: Expected: 03/02/2025, Expires: Start: 03-02-2025 End: 03-02-2026 Basic metabolic 2000 panel - Serum or Plasma [facility] Comment on above: Expected: 03/02/2025, Expires: Start: 03-02-2025 End: 06-01-2025 Ferritin [Mass/volume] in Serum or Plasma [facility] Comment on above: Expected: 03/02/2025, Expires: 5 Start: 03-02-2025 End: 03-02-2026 Hepatic function 2000 panel - Serum or Plasma [facility] Comment on above: Expected: 03/02/2025, Expires: 6 Start: 03-02-2025 End: 06-01-2025 Iron and Iron binding capacity panel - Serum or Plasma [facility] Comment on above: Expected: 03/02/2025, Expires: Start: 03-02-2025 End: 06-01-2025 LIVER FIBROSIS AND ACTIVITY [facility] Comment on above: Expected: 03/02/2025, Expires: 5 Start: 03-02-2025 End: 06-01-2025 Mitochondria Ab [Presence] in Serum by Immunofluorescence [facility] Comment on above: Expected: 03/02/2025, Expires: Start: 03-02-2025 End: 06-01-2025 Nuclear Ab [Presence] in Serum by Immunoassay [facility] Work Phone: Comment on above: Expected: 03/02/2025, Expires: Start: 03-02-2025 End: 06-01-2025 Smooth muscle Ab [Presence] in Serum [facility] Comment on above: Expected: 03/02/2025, Expires: Start: 03-02-2025 End: 03-02-2025 Patient encounter procedure 03/02/2025 1:00 PM EDT Office Visit Gastroenterology [address] [address] Blanca King, CUSTOMER CARE REPRESENTATIVE.WARP DYEING TENDER [address] [place], [place] [phone] Cirrhosis of liver without ascites, unspecified hepatic cirrhosis type (HCC) [K74.60]; Abnormal liver ultrasound [R93.2] Gastroenterology Comment on above: Cirrhosis of liver without ascites, unsp ecified hepatic cirrhosis type (HCC) [K74.60]; Abnormal liver ultrasound [R93.2] Start: 02-25-2025 Screening for malignant neoplasm of breast Mammogram Screening [facility] Start: 02-01-2025 End: 02-01-2025 Patient encounter procedure 02/01/2025 1:00 PM EDT Office Visit Family [facility] [address] [place] [address] Demetra Navarrete, CUSTOMER CARE REPRESENTATIVE.WARP DYEING TENDER [address] [place] [address] 3 month follow up Family [facility] Comment on above: 3 month follow up Start: 01-27-2025 End: 01-27-2025 Patient encounter procedure 01/27/2025 11:00 AM EDT Office Visit Gastroenterology [address] [address] Amanda Davis MD [address] [place] [address] Cirrhosis of liver without ascites, unspecified hepatic cirrhosis type (HCC) [K74.60]; Abnormal liver ultrasound [R93.2] Gastroenterology Comment on above: Cirrhosis of liver without ascites, unsp ecified hepatic cirrhosis type (HCC) [K74.60]; Abnormal liver ultrasound [R93.2] Start: 01-14-2025 Annual PCP Team Chronic Disease Visit Annual PCP Team Chronic Disease Visit [facility] Start: 01-08-2025 Complete blood count Hemoglobin/Hematocrit [facility] Start: 01-08-2025 Creatinine measurement Serum Creatinine [facility] Start: 01-08-2025 Hepatitis B surface antibody level LDL Cholesterol [facility] Start: 01-07-2025 Hemoglobin A1c measurement HbA1C [facility] Start: 01-06-2025 End: 04-07-2025 Hemoglobin A1c in Blood [facility] Work Phone: Comment on above: Expected: 01/06/2025, Expires: Start: 01-06-2025 End: 01-06-2025 Patient encounter procedure 01/06/2025 1:00 PM EST Office Visit Pharm [facility] [address] [place] [address] [place] [address], [place] [phone] Dm f/up Pharm [facility] Comment on above: Dm f/up Start: 12-18-2024 Glaucoma screening Dilated Retinal Exam [facility] Start: 12-02-2024 End: 12-02-2024 Patient encounter procedure 12/02/2024 1:00 PM EST Office Visit Pharm [facility] [address] [place] [address] [place] [address] [place], [place] [id number] Dm f/up Pharm [facility] Comment on above: Dm f/up Start: 11-26-2024 End: 11-26-2024 Patient encounter procedure 11/26/2024 9:15 AM EST Appointment Radiology [address] [place] [address] Fatty liver [K76.0] Radiology Comment on above: Fatty liver [K76.0] Start: 11-22-2024 End: 11-22-2024 Patient encounter procedure 11/22/2024 1:15 PM EST Office Visit General Surgery [address] [place] [address] Rola Muro MD [address] [place] [address] Anemia, unspecified type [D64.9]; External hemorrhoids [K64.4] General Surgery Comment on above: Anemia, unspecified type [D64.9]; 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 hemorrhoids [K64.4] Start: 11-17-2024 Medicare Advantage Annual Wellness Visit Medicare Advantage Annual Wellness Visit [facility] Start: 11-03-2024 End: 02-02-2025 Comprehensive metabolic 2000 panel - Serum or Plasma [facility] Comment on above: Expected: 11/03/2024, Expires: Start: 11-03-2024 End: 11-03-2024 Patient encounter procedure [facility] Comment on above: 3 month follow up Gastrointestinal hem orrhage with melena [K92.1] Start: 10-25-2024 Hemoglobin A1c measurement HbA1C [facility] Start: 10-15-2024 Annual PCP Team Chronic Disease Visit Annual PCP Team Chronic Disease Visit [facility] Start: 10-15-2024 Covid-19 Vaccine () Covid-19 Vaccine () [facility] Comment on above: Postponed from 07/18/2023 (Declined at t his time) Start: 10-13-2024 End: 01-12-2025 Heterophile Ab [Presence] in Serum by Latex agglutination MONOTEST, INFECTIOUS MONO Lab Routine Spleen enlarged Expected: 10/13/2024, Expires: 01/12/2025 [facility] Work Phone: Comment on above: Expected: 10/13/2024, Expires: Start: 10-11-2024 End: 01-10-2025 CREATININE BLD CREATININE BLD Lab Routine Positive fecal occult blood test Anemia, unspecified type Gastrointestinal hemorrhage with melena Abdominal bloating Expected: 10/11/2024, Expires: 01/10/2025 [facility] Comment on above: Expected: 10/11/2024, Expires: Start: 10-11-2024 End: 10-11-2024 Patient encounter procedure 10/11/2024 9:15 AM EST Appointment Radiology [address] [place] [address] Anemia, unspecified type [D64.9]; Abdominal bloating [R14.0] Radiology Comment on above: Anemia, unspecified type [D64.9]; Abdomi nal bloating [R14.0] Start: 10-08-2024 End: 10-08-2024 Patient encounter procedure 10/08/2024 11:30 AM EST Appointment Radiology [address] [place] [address] Anemia, unspecified type [D64.9] Radiology Comment on above: Anemia, unspecified type [D64.9] Start: 10-07-2024 End: 01-06-2025 Ferritin [Mass/volume] in Serum or Plasma [facility] Comment on above: Expected: 10/07/2024, Expires: Start: 10-07-2024 End: 01-06-2025 Iron and Iron binding capacity panel - Serum or Plasma [facility] Work Phone: Comment on above: Expected: 10/07/2024, Expires: Start: 09-30-2024 End: 12-30-2024 Hemoglobin A1c in Blood HEMOGLOBIN A1C Lab Routine Type 2 diabetes mellitus with stage 3 chronic kidney disease, with long-term current use of insulin, unspecified whether stage 3a or 3b CKD (HCC) Expected: 09/30/2024, Expires: 12/30/2024 [facility] Work Phone: Comment on above: Expected: 09/30/2024, Expires: Start: 09-30-2024 End: 09-30-2024 Patient encounter procedure 09/30/2024 1:00 PM EST Office Visit Pharm [facility] [address] [place] [address] [facility] [place] [address] [place], [place] [phone] Dm f/up Pharm Med Clinic Comment on above: Dm f/up Start: 09-17-2024 Complete blood count Hemoglobin/Hematocrit [facility] Start: 09-17-2024 Creatinine measurement Serum Creatinine [facility] Start: 09-17-2024 Hemoglobin/Hematocrit Hemoglobin/Hematocrit [facility] Start: 09-17-2024 Serum Creatinine Serum Creatinine [facility] Start: 09-02-2024 End: 09-02-2024 Patient encounter procedure 09/02/2024 1:00 PM EDT Office Visit Pharm [facility] [address] [place] [address] [facility] [address] [place], [place] [phone] Dm f/up Pharm [facility] Comment on above: Dm f/up Start: 07-30-2024 3 comp foot exam completed Diabetic Foot Exam [facility] Start: 07-30-2024 Annual PCP Team Chronic Disease Visit Annual PCP Team Chronic Disease Visit [facility] Start: 07-30-2024 Diabetic foot examination Diabetic Foot Exam [facility] Start: 07-27-2024 End: 10-26-2024 Comprehensive metabolic 2000 panel - Serum or Plasma [facility] Work Phone: Comment on above: Expected: 07/27/2024, Expires: Start: 07-27-2024 End: 10-26-2024 Thyrotropin [Units/volume] in Serum or Plasma [facility] Comment on above: Expected: 07/27/2024, Expires: 4 Start: 07-27-2024 End: 10-26-2024 Thyroxine (T4) free [Mass/volume] in Serum or Plasma [facility] Comment on above: Expected: 07/27/2024, Expires: 4 Start: 07-27-2024 End: 07-27-2024 Patient encounter procedure 07/27/2024 1:20 PM EDT Office Visit [facility] [address] [place] [address] Demetra Navarrete APRN.WARP DYEING TENDER [address] [place] [address] 3 month follow up [facility] Comment on above: 3 month follow up Start: 07-18-2024 Covid-19 Vaccine () Covid-19 Vaccine () [facility] Start: 07-18-2024 Covid-19 Vaccine () Covid-19 Vaccine () [facility] Start: 07-18-2024 Influenza vaccination [facility] Start: 07-08-2024 End: 10-07-2024 Hemoglobin A1c in Blood HEMOGLOBIN A1C Lab Routine Type 2 diabetes mellitus with stage 3 chronic kidney disease, with long-term current use of insulin, unspecified whether stage 3a or 3b CKD (HCC) Expected: 07/08/2024, Expires: 10/07/2024 [facility] Work Phone: Comment on above: Expected: 07/08/2024, Expires: 4 Start: 07-08-2024 Hemoglobin A1c measurement HbA1C [facility] Start: 07-04-2024 Colonoscopy COLONOSCOPY [facility] Start: 07-04-2024 COLORECTAL CANCER SCREENING COLORECTAL CANCER SCREENING [facility] Start: 07-02-2024 Glaucoma screening Dilated Retinal Exam [facility] Start: 07-02-2024 Hepatitis C antibody, confirmatory test Dilated Retinal Exam [facility] Start: 07-01-2024 End: 09-30-2024 Microalbumin/Creatinine [Mass Ratio] in Urine ALBUMIN/CREATININE RATIO, URINE Lab Routine Type 2 diabetes mellitus with stage 3 chronic kidney disease, with long-term current use of insulin, unspecified whether stage 3a or 3b CKD (HCC) Expected: 07/01/2024, Expires: 09/30/2024 [facility] Comment on above: Expected: 07/01/2024, Expires: Start: 07-01-2024 End: 07-01-2024 Patient encounter procedure 07/01/2024 1:00 PM EDT Office Visit Pharm [facility] [address] [place] [address] [facility] [address] [place], [place] [id number] Dm f/up Pharm Med [facility] Comment on above: Dm f/up Start: 06-11-2024 BP CONTROLLED (<130/80) BP CONTROLLED (<130/80) [facility] in Start: 06-11-2024 HEMOGLOBIN/HEMATOCRIT HEMOGLOBIN/HEMATOCRIT [facility] Start: 06-11-2024 SERUM CREATININE SERUM CREATININE [facility] Start: 06-03-2024 End: 06-03-2024 Patient encounter procedure 06/03/2024 1:00 PM EDT Office Visit Pharm [facility] [address] [place] [address] [facility], [facility] [address] [place], [place] [phone] Dm f/up Pharm [facility] Comment on above: Dm f/up Start: 05-27-2024 End: 05-27-2024 ambulatory 05/27/2024 1:00 PM EDT Visit (SP) Office Hematology/Oncology [address] [place] [address] [place] [address] [place] [address] 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 iron 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 [D50.8]/REF PROV DR PEARCE* FIRST AVAIL Hematology/Oncology Comment on above: 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 iron 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 [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.8]/ REF PROV DR PEARCE* FIRST AVAIL Start: 05-21-2024 BP CONTROLLED (<130/80) BP CONTROLLED (<130/80) [facility] in Start: 05-21-2024 SERUM CREATININE SERUM CREATININE [facility] Start: 04-23-2024 End: 04-23-2024 Patient encounter procedure 04/23/2024 1:20 PM EDT Office Visit [facility] [address] [place] [address] Mariano Pearce DO [address] [place] [address] 3 month follow up Family [facility] Comment on above: 3 month follow up Start: 04-16-2024 BP CONTROLLED (<130/80) BP CONTROLLED (<130/80) [facility] Start: 04-14-2024 End: 07-14-2024 Hemoglobin A1c in Blood HGB A1C Lab Routine Uncontrolled type 2 diabetes mellitus with hyperglycemia (HCC) Expected: 04/14/2024, Expires: 07/14/2024 [facility] Work Phone: Comment on above: Expected: 04/14/2024, Expires: Start: 04-14-2024 End: 07-14-2024 Thyrotropin [Units/volume] in Serum or Plasma TSH BLD Lab Routine Acquired hypothyroidism Expected: 04/14/2024, Expires: 07/14/2024 [facility] Work Phone: Comment on above: Expected: 04/14/2024, Expires: Start: 04-14-2024 End: 07-14-2024 Thyroxine (T4) free [Mass/volume] in Serum or Plasma T4 FREE/FREE THYROX Lab Routine Acquired hypothyroidism Expected: 04/14/2024, Expires: 07/14/2024 [facility] Work Phone: Comment on above: Expected: 04/14/2024, Expires: Start: 04-07-2024 ANNUAL PCP TEAM CHRONIC DISEASE VISIT ANNUAL PCP TEAM CHRONIC DISEASE VISIT [facility] Start: 04-07-2024 Hemoglobin A1c measurement HbA1C [facility] Start: 04-05-2024 End: 07-05-2024 CBC panel - Blood by Automated count COMPLETE BLOOD COUNT Lab Routine Hypertension, unspecified type Expected: 04/05/2024, Expires: 07/05/2024 [facility] Work Phone: Comment on above: Expected: 04/05/2024, Expires: Start: 02-25-2024 Mammography [facility] Start: 02-25-2024 Screening for malignant neoplasm of breast Mammogram Screening [facility] Start: 02-12-2024 ANNUAL PCP TEAM CHRONIC DISEASE VISIT ANNUAL PCP TEAM CHRONIC DISEASE VISIT [facility] Start: 01-29-2024 ANNUAL PCP TEAM CHRONIC DISEASE VISIT ANNUAL PCP TEAM CHRONIC DISEASE VISIT [facility] Start: 01-28-2024 BP CONTROLLED (<130/80) BP CONTROLLED (<130/80) [facility] Start: 01-28-2024 Hemoglobin A1c measurement HbA1C [facility] Start: 01-28-2024 Hemoglobin A1c/Hemoglobin.total in Blood HbA1C [facility] Start: 01-24-2024 Hepatitis B surface antibody level LDL CHOLESTEROL [facility] Start: 01-24-2024 SERUM CREATININE SERUM CREATININE [facility] Start: 01-15-2024 End: 04-15-2024 CBC panel - Blood by Automated count CBC Lab Routine Uncontrolled type 2 diabetes mellitus with hyperglycemia (HCC) Expected: 01/15/2024, Expires: 04/15/2024 [facility] Work Phone: Comment on above: Expected: 01/15/2024, Expires: 4 Start: 01-15-2024 End: 04-15-2024 Comprehensive metabolic 2000 panel - Serum or Plasma COMP METABOLIC PANEL Lab Routine Uncontrolled type 2 diabetes mellitus with hyperglycemia (HCC) Expected: 01/15/2024, Expires: 04/15/2024 [facility] Work Phone: Comment on above: Expected: 01/15/2024, Expires: 4 Start: 01-15-2024 End: 04-15-2024 Hemoglobin A1c in Blood HGB A1C Lab Routine Uncontrolled type 2 diabetes mellitus with hyperglycemia (HCC) Expected: 01/15/2024, Expires: 04/15/2024 [facility] Work Phone: Comment on above: Expected: 01/15/2024, Expires: 4 Start: 01-15-2024 End: 04-15-2024 Lipid 1996 panel - Serum or Plasma LIPID PANEL BASIC Lab Routine Dyslipidemia Expected: 01/15/2024, Expires: 04/15/2024 [facility] Work Phone: Comment on above: Expected: 01/15/2024, Expires: Start: 01-15-2024 End: 04-15-2024 Thyrotropin [Units/volume] in Serum or Plasma TSH BLD Lab Routine Acquired hypothyroidism Expected: 01/15/2024, Expires: 04/15/2024 [facility] Work Phone: Comment on above: Expected: 01/15/2024, Expires: Start: 01-15-2024 End: 04-15-2024 Thyroxine (T4) free [Mass/volume] in Serum or Plasma T4 FREE/FREE THYROX Lab Routine Acquired hypothyroidism Expected: 01/15/2024, Expires: 04/15/2024 [facility] Work Phone: Comment on above: Expected: 01/15/2024, Expires: Start: 11-17-2023 Behavioral Health Screening Behavioral Health Screening [facility] Start: 11-17-2023 Depression Assessment Depression Assessment [facility] Start: 10-30-2023 ANNUAL PCP TEAM CHRONIC DISEASE VISIT ANNUAL PCP TEAM CHRONIC DISEASE VISIT [facility] Start: 10-25-2023 Hepatitis B surface antibody level LDL CHOLESTEROL [facility] Start: 10-23-2023 Hemoglobin A1c/Hemoglobin.total in Blood HBA1C [facility] Start: 07-30-2023 End: 09-29-2023 CBC W Auto Differential panel - Blood CBC + DIFF Lab Routine Anemia, unspecified type Expected: 07/30/2023, Expires: 09/29/2023 [facility] Work Phone: Comment on above: Expected: 07/30/2023, Expires: Start: 07-30-2023 End: 09-29-2023 Cobalamin (Vitamin B12) [Mass/volume] in Serum or Plasma VITAMIN B12 BLOOD Lab Routine Anemia, unspecified type Expected: 07/30/2023, Expires: 09/29/2023 [facility] Work Phone: Comment on above: Expected: 07/30/2023, Expires: Start: 07-30-2023 End: 09-29-2023 Comprehensive metabolic 2000 panel - Serum or Plasma COMP METABOLIC PANEL Lab Routine Anemia, unspecified type Expected: 07/30/2023, Expires: 09/29/2023 [facility] Work Phone: Comment on above: Expected: 07/30/2023, Expires: Start: 07-30-2023 End: 09-29-2023 Ferritin [Mass/volume] in Serum or Plasma FERRITIN BLD Lab Routine Anemia, unspecified type Expected: 07/30/2023, Expires: 09/29/2023 [facility] Work Phone: Comment on above: Expected: 07/30/2023, Expires: Start: 07-30-2023 End: 09-29-2023 Iron and Iron binding capacity panel - Serum or Plasma IRON + TIBC Lab Routine Anemia, unspecified type Expected: 07/30/2023, Expires: 09/29/2023 [facility] Work Phone: Comment on above: Expected: 07/30/2023, Expires: Start: 07-30-2023 End: 09-29-2023 Thyrotropin [Units/volume] in Serum or Plasma TSH BLD Lab Routine Diarrhea, unspecified type Uncontrolled type 2 diabetes mellitus with hyperglycemia (HCC) Fatigue, unspecified type Expected: 07/30/2023, Expires: 09/29/2023 [facility] Work Phone: Comment on above: Expected: 07/30/2023, Expires: Start: 07-30-2023 End: 09-29-2023 Thyroxine (T4) free [Mass/volume] in Serum or Plasma T4 FREE/FREE THYROX Lab Routine Diarrhea, unspecified type Uncontrolled type 2 diabetes mellitus with hyperglycemia (HCC) Fatigue, unspecified type Expected: 07/30/2023, Expires: 09/29/2023 [facility] Work Phone: Comment on above: Expected: 07/30/2023, Expires: 3 Start: 07-30-2023 End: 09-29-2023 Triiodothyronine (T3) Free [Mass/volume] in Serum or Plasma T3 FREE BLD Lab Routine Diarrhea, unspecified type Uncontrolled type 2 diabetes mellitus with hyperglycemia (HCC) Fatigue, unspecified type Expected: 07/30/2023, Expires: 09/29/2023 [facility] Work Phone: Comment on above: Expected: 07/30/2023, Expires: 3 Start: 07-29-2023 ANNUAL PCP TEAM CHRONIC DISEASE VISIT ANNUAL PCP TEAM CHRONIC DISEASE VISIT [facility] Start: 07-26-2023 Hepatitis B screening URINE ALBUMIN:CREATININE RATIO [facility] Start: 07-26-2023 Hepatitis B surface antibody level LDL CHOLESTEROL [facility] Start: 07-26-2023 SERUM CREATININE SERUM CREATININE [facility] Start: 07-18-2023 Covid-19 Vaccine ( season) Covid-19 Vaccine () [facility] Start: 07-18-2023 Influenza vaccination INFLUENZA (#1) [facility] Start: 07-03-2023 Hepatitis C antibody, confirmatory test DILATED RETINAL EXAM [facility] Start: 05-10-2023 Mammography MAMMOGRAM [facility] Start: 04-30-2023 End: 06-30-2023 25-hydroxyvitamin D3 [Mass/volume] in Serum or Plasma VITAMIN D 25 HYDROXY Lab Routine Vitamin D deficiency Expected: 04/30/2023, Expires: 06/30/2023 [facility] Work Phone: Comment on above: Expected: 04/30/2023, Expires: 3 Start: 04-30-2023 End: 06-30-2023 CBC panel - Blood by Automated count CBC Lab Routine Dyslipidemia Expected: 04/30/2023, Expires: 06/30/2023 [facility] Work Phone: Comment on above: Expected: 04/30/2023, Expires: 3 Start: 04-30-2023 End: 06-30-2023 Cobalamin (Vitamin B12) [Mass/volume] in Serum or Plasma VITAMIN B12 BLOOD Lab Routine Vitamin B12 deficiency Expected: 04/30/2023, Expires: 06/30/2023 [facility] Work Phone: Comment on above: Expected: 04/30/2023, Expires: 3 Start: 04-30-2023 End: 06-30-2023 Comprehensive metabolic 2000 panel - Serum or Plasma COMP METABOLIC PANEL Lab Routine Dyslipidemia Expected: 04/30/2023, Expires: 06/30/2023 [facility] Work Phone: Comment on above: Expected: 04/30/2023, Expires: Start: 04-30-2023 End: 06-30-2023 Hemoglobin A1c in Blood HGB A1C Lab Routine Type 2 diabetes mellitus with stage 3 chronic kidney disease, with long-term current use of insulin, unspecified whether stage 3a or 3b CKD (HCC) Expected: 04/30/2023, Expires: 06/30/2023 [facility] Work Phone: Comment on above: Expected: 04/30/2023, Expires: 3 Start: 04-30-2023 End: 06-30-2023 Lipid 1996 panel - Serum or Plasma LIPID PANEL BASIC Lab Routine Dyslipidemia Expected: 04/30/2023, Expires: 06/30/2023 [facility] Work Phone: Comment on above: Expected: 04/30/2023, Expires: 3 Start: 04-30-2023 End: 06-30-2023 Thyrotropin [Units/volume] in Serum or Plasma TSH BLD Lab Routine Acquired hypothyroidism Expected: 04/30/2023, Expires: 06/30/2023 [facility] Work Phone: Comment on above: Expected: 04/30/2023, Expires: 3 Start: 04-30-2023 End: 06-30-2023 Thyroxine (T4) free [Mass/volume] in Serum or Plasma T4 FREE/FREE THYROX Lab Routine Acquired hypothyroidism Expected: 04/30/2023, Expires: 06/30/2023 [facility] Work Phone: Comment on above: Expected: 04/30/2023, Expires: 3 Start: 04-25-2023 Hemoglobin A1c/Hemoglobin.total in Blood HBA1C [facility] Start: 04-23-2023 3 comp foot exam completed DIABETIC FOOT EXAM [facility] Start: 04-23-2023 Adult depression screening assessment DEPRESSION SCREENING [facility] Start: 04-23-2023 ANNUAL PCP TEAM CHRONIC DISEASE VISIT ANNUAL PCP TEAM CHRONIC DISEASE VISIT [facility] Start: 04-23-2023 BP CONTROLLED (<130/80) BP CONTROLLED (<130/80) [facility] Start: 04-23-2023 End: 05-15-2024 US ABD RIGHT UPPER QUADRANT US ABD RIGHT UPPER QUADRANT Radiology Routine Change in bowel habits Right upper quadrant pain Expected: 04/23/2023, Expires: 05/15/2024 [facility] Work Phone: Comment on above: Expected: 04/23/2023, Expires: 4 Start: 04-18-2023 Hepatitis B surface antibody level LDL CHOLESTEROL [facility] Start: 04-18-2023 SERUM CREATININE SERUM CREATININE [facility] Start: 04-16-2023 End: 06-16-2023 Clostridioides difficile toxin genes [Presence] in Stool by FRANSISCO with probe detection C. DIFFICILE PCR Lab Routine Diarrhea, unspecified type Generalized abdominal pain Expected: 04/16/2023, Expires: 06/16/2023 [facility] Work Phone: Comment on above: Expected: 04/16/2023, Expires: 3 Start: 04-16-2023 End: 06-16-2023 ENTERIC BACTERIAL PANEL BY PCR ENTERIC BACTERIAL PANEL BY PCR Lab Routine Diarrhea, unspecified type Expected: 04/16/2023, Expires: 06/16/2023 [facility] Work Phone: Comment on above: Expected: 04/16/2023, Expires: 3 Start: 04-16-2023 End: 06-16-2023 FECAL LACTOFERRIN/LEUKOCYTES FECAL LACTOFERRIN/LEUKOCYTES Lab Routine Diarrhea, unspecified type Expected: 04/16/2023, Expires: 06/16/2023 [facility] Work Phone: Comment on above: Expected: 04/16/2023, Expires: 3 Start: 04-16-2023 End: 06-16-2023 Giardia lamblia+Cryptosporidium sp Ag [Presence] in Stool by Immunoassay CRYPTOSPORIDIUM AND GIARDIA ANTIGENS BY EIA Microbiology Routine Diarrhea, unspecified type Expected: 04/16/2023, Expires: 06/16/2023 [facility] Work Phone: Comment on above: Expected: 04/16/2023, Expires: 3 Start: 01-30-2023 HEMOGLOBIN/HEMATOCRIT HEMOGLOBIN/HEMATOCRIT [facility] Start: 01-30-2023 Hepatitis B surface antibody level LDL CHOLESTEROL [facility] Start: 01-30-2023 SERUM CREATININE SERUM CREATININE [facility] Start: 01-23-2023 Hemoglobin A1c/Hemoglobin.total in Blood HBA1C [facility] Start: 12-24-2022 ANNUAL PCP TEAM CHRONIC DISEASE VISIT ANNUAL PCP TEAM CHRONIC DISEASE VISIT [facility] Start: 12-24-2022 BP CONTROLLED (<130/80) BP CONTROLLED (<130/80) [facility] Start: 11-24-2022 End: 01-24-2023 Lipid 1996 panel - Serum or Plasma LIPID PANEL BASIC Lab Routine Dyslipidemia Expected: 11/24/2022, Expires: 01/24/2023 [facility] Work Phone: Comment on above: Expected: 11/24/2022, Expires: 3 Start: 11-17-2022 DEPRESSION ASSESSMENT DEPRESSION ASSESSMENT [facility] Start: 10-25-2022 End: 12-25-2022 Hemoglobin A1c in Blood HGB A1C Lab Routine Type 2 diabetes mellitus with stage 3 chronic kidney disease, with long-term current use of insulin, unspecified whether stage 3a or 3b CKD (HCC) Expected: 10/25/2022, Expires: 12/25/2022 [facility] Work Phone: Comment on above: Expected: 10/25/2022, Expires: 3 Start: 10-25-2022 Hemoglobin A1c/Hemoglobin.total in Blood HBA1C [facility] Start: 08-24-2022 Hepatitis C antibody, confirmatory test DILATED RETINAL EXAM [facility] Start: 07-25-2022 End: 09-24-2022 ALBUMIN/CREAT RATIO RND UR ALBUMIN/CREAT RATIO RND UR Lab Routine Type 2 diabetes mellitus with stage 3 chronic kidney disease, with long-term current use of insulin, unspecified whether stage 3a or 3b CKD (HCC) Expected: 07/25/2022, Expires: 09/24/2022 [facility] Work Phone: Comment on above: Expected: 07/25/2022, Expires: Start: 07-19-2022 Hemoglobin A1c/Hemoglobin.total in Blood HBA1C [facility] Start: 07-18-2022 Influenza vaccination INFLUENZA (#1) [facility] Start: 05-18-2022 BP CONTROLLED (<130/80) BP CONTROLLED (<130/80) [facility] Start: 05-07-2022 Mammography MAMMOGRAM [facility] Start: 05-02-2022 Hemoglobin A1c/Hemoglobin.total in Blood HBA1C [facility] Start: 03-13-2022 COVID-19 VACCINE (5 - Booster for Moderna series) COVID-19 VACCINE (5 - Booster for Moderna series) [facility] Start: 03-05-2022 3 comp foot exam completed DIABETIC FOOT EXAM [facility] Start: 03-05-2022 Adult depression screening assessment DEPRESSION SCREENING [facility] Start: 02-10-2022 COVID-19 VACCINE (4 - Booster for Moderna series) COVID-19 VACCINE (4 - Booster for Moderna series) [facility] Start: 01-07-2022 COVID-19 VACCINE (4 - Booster for Moderna series) COVID-19 VACCINE (4 - Booster for Moderna series) [facility] Start: 01-07-2022 COVID-19 VACCINE (4 - Moderna risk series) COVID-19 VACCINE (4 - Moderna risk series) [facility] Start: 01-07-2022 COVID-19 VACCINE (5 - Booster for Moderna series) COVID-19 VACCINE (5 - Booster for Moderna series) [facility] Start: 01-07-2022 COVID-19 VACCINE (5 - Moderna risk series) COVID-19 VACCINE (5 - Moderna risk series) [facility] Start: 11-17-2021 ADVANCE DIRECTIVE DISCUSSION ADVANCE DIRECTIVE DISCUSSION [facility] Start: 11-17-2021 DEPRESSION ASSESSMENT DEPRESSION ASSESSMENT [facility] Start: 08-03-2021 Hepatitis B screening URINE ALBUMIN:CREATININE RATIO [facility] Start: 07-24-2021 SHINGRIX VACCINE (2 of 2) SHINGRIX VACCINE (2 of 2) [facility] Start: 07-24-2021 SHINGRIX VACCINE (3 of 3) SHINGRIX VACCINE (3 of 3) [facility] Start: 05-01-2018 FECAL OCCULT BLOOD FECAL OCCULT BLOOD [facility] Start: 05-01-2018 Screening for malignant neoplasm of colon Fecal Occult Blood [facility] Start: 01-07-2018 Screening for malignant neoplasm of cervix Cervical Cancer Screening [facility] Start: 2011 Hepatitis B Vaccine (1 of 3 - Risk 3-dose series) Hepatitis B Vaccine (1 of 3 - Risk 3-dose series) [facility] Start: 2011 RSV Vaccine (1 - 1-dose 60+ series) RSV Vaccine (1 - 1-dose 60+ series) [facility] Start: 2011 RSV Vaccine (1 - Risk 60-74 years 1-dose series) RSV Vaccine (1 - Risk 60-74 years 1-dose series) [facility] Start: 1996 COLOGUARD (FIT-DNA) COLOGUARD (FIT-DNA) [facility] Start: [address] COLONOGRAPHY [facility] Start: 1996 Screening for malignant neoplasm of colon [facility] Start: 1996 SIGMOIDOSCOPY SIGMOIDOSCOPY [facility] Start: 1970 Hepatitis A Vaccine (1 of 2 - Risk 2-dose series) Hepatitis A Vaccine (1 of 2 - Risk 2-dose series) [facility] Start: 1969 Depression Screening Depression Screening [facility] End: 07-29-2023 Bacteria identified in Urine by Culture URINE CULTURE Microbiology Routine Type 2 diabetes mellitus with stage 3 chronic kidney disease, with long-term current use of insulin, unspecified whether stage 3a or 3b CKD (HCC) Recurrent UTI (urinary tract infection) Every other week for 30 Occurrences starting 07/29/2022 until 07/29/2023 [facility] Work Phone: Comment on above: Every other week for 30 Occurrences star ting 07/29/2022 until 07/29/2023 Bacteria identified in Urine by Culture BACTERIAL CULTURE, URINE Microbiology Routine Urinary frequency Burning with urination Proteinuria, unspecified type 02/01/2025 1:49 PM EDT [facility] End: 04-16-2024 COLONOSCOPY DIAGNOSTIC COLONOSCOPY DIAGNOSTIC Endoscopy Routine Diarrhea, unspecified type Abdominal pain, unspecified abdominal location Change in bowel habits 1 Occurrences starting 04/16/2023 until 04/16/2024 [facility] Work Phone: Comment on above: 1 Occurrences starting 04/16/2023 until 04/16/2024 End: 11-10-2025 CT Abdomen and Pelvis W contrast IV CT ABD/PEL W IVCON Radiology Routine Gastrointestinal hemorrhage with melena Abdominal bloating 1 Occurrences starting 10/11/2024 until 11/10/2025 [facility] Work Phone: Comment on above: 1 Occurrences starting 10/11/2024 until 11/10/2025 CT Abdomen and Pelvi s W contrast IV CT ABD/PEL W IVCON Radiology Routine Gastrointestinal hemorrhage with melena Abdominal bloating 11/03/2024 9:35 AM EST [facility] Work Phone: End: 02-27-2024 CT BRAIN WO IVCON CT BRAIN WO IVCON Radiology Routine Syncope, unspecified syncope type History of head injury Increased frequency of headaches Headache, worsening 1 Occurrences starting 01/28/2023 until 02/27/2024 [facility] Work Phone: Comment on above: 1 Occurrences starting 01/28/2023 until 02/27/2024 End: 12-03-2025 DBT Breast - bilateral screening HIRAL SCREENING W LUCY Radiology Routine Encounter for screening mammogram for malignant neoplasm of breast 1 Occurrences starting 11/03/2024 until 12/03/2025 [facility] Comment on above: 1 Occurrences starting 11/03/2024 until 12/03/2025 End: 01-29-2024 ECG COMPLETE ECG COMPLETE ECG Routine Syncope, unspecified syncope type 1 Occurrences starting 01/28/2023 until 01/29/2024 [facility] Work Phone: Comment on above: 1 Occurrences starting 01/28/2023 until 01/29/2024 ECG COMPLETE ECG COMPLETE ECG 01/28/2023 12:54 PM EDT [facility] End: 01-29-2024 Echocardiography ECHO Cardiology Routine Syncope, unspecified syncope type 1 Occurrences starting 01/28/2023 until 01/29/2024 [facility] Work Phone: Comment on above: 1 Occurrences starting 01/28/2023 until 01/29/2024 End: 04-16-2024 EGD DIAGNOSTIC EGD DIAGNOSTIC Endoscopy Routine Diarrhea, unspecified type Abdominal pain, unspecified abdominal location Change in bowel habits 1 Occurrences starting 04/16/2023 until 04/16/2024 [facility] Work Phone: Comment on above: 1 Occurrences starting 04/16/2023 until 04/16/2024 Hemoglobin.garret fuchs al.lower [Presence] in Stool by Immunoassay IMMUNOCHEMICAL FECAL OCCULT BLOOD TEST Lab Routine Anemia, unspecified type Abdominal bloating Ordered: 10/07/2024 [facility] Comment on above: Ordered: 10/07/2024 Hemoglobin.gastrokeith sheetsin al.lower [Presence] in Stool by Immunoassay IMMUNOCHEMICAL FECAL OCCULT BLOOD TEST Lab Routine Iron 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, unspecified iron 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 type Occult blood in stools Ordered: 02/01/2025 [facility] Comment on above: Ordered: 02/01/2025 Hemoglobin.gastrokeith sheetsin al.lower [Presence] in Stool by Immunoassay IMMUNOCHEMICAL FECAL OCCULT BLOOD TEST Lab Routine Occult blood in stools Screening for colon cancer Ordered: 02/24/2025 [facility] Work Phone: Comment on above: Ordered: 02/24/2025 End: 02-01-2026 HOME SLEEP APNEA TEST (HSAT) HOME SLEEP APNEA TEST (HSAT) Procedures Routine Chronic insomnia Snoring Drooling Daytime hypersomnia 1 Occurrences starting 02/01/2025 until 02/01/2026 [facility] Work Phone: Comment on above: 1 Occurrences starting 02/01/2025 until 02/01/2026 Liver ultrasound attenuation by transient elastography DDI VIBRATION CONTROLLED TRANSIENT ELASTOGRAPHY (VCTE) Endoscopy Routine Cirrhosis of liver without ascites, unspecified hepatic cirrhosis type (HCC) Abnormal liver ultrasound Ordered: 03/02/2025 [facility] Comment on above: Ordered: 03/02/2025 End: 03-12-2024 HIRAL SCREENING HIRAL SCREENING Radiology Routine Encounter for screening mammogram for malignant neoplasm of breast 1 Occurrences starting 02/11/2023 until 03/12/2024 [facility] Work Phone: Comment on above: 1 Occurrences starting 02/11/2023 until 03/12/2024 End: 02-13-2025 MG Breast Screening HIRAL SCREENING Radiology Routine Encounter for screening mammogram for breast cancer 1 Occurrences starting 01/15/2024 until 02/13/2025 [facility] Work Phone: Comment on above: 1 Occurrences starting 01/15/2024 until 02/13/2025 MG Breast Screening HIRAL SCREENIN G Radiology Routine Encounter for screening mammogram for breast cancer 02/26/2024 12:06 PM EDT [facility] Work Phone: End: 12-03-2025 MG Breast Screening HIRAL SCREENING Radiology Routine Encounter for screening mammogram for malignant neoplasm of breast 1 Occurrences starting 11/03/2024 until 12/03/2025 [facility] Work Phone: Comment on above: 1 Occurrences starting 11/03/2024 until 12/03/2025 End: 06-26-2026 MR Biliary ducts and Pancreatic duct WO and W contrast IV MRI PANC/KANDI WO/W IVCON Radiology Routine Cirrhosis of liver without ascites, unspecified hepatic cirrhosis type (HCC) 1 Occurrences starting 05/27/2025 until 06/26/2026 [facility] Work Phone: Comment on above: 1 Occurrences starting 05/27/2025 until 06/26/2026 End: 06-26-2026 MR Unspecified body region 3D post processing MRI 3D POST PROCESSING Radiology Routine Cirrhosis of liver without ascites, unspecified hepatic cirrhosis type (HCC) 1 Occurrences starting 05/27/2025 until 06/26/2026 [facility] Comment on above: 1 Occurrences starting 05/27/2025 until 06/26/2026 OCCULT BLD EXAM-DIAG OCCULT BLD EXAM-DIAG Microbiology Routine Anemia, unspecified type Abdominal bloating Ordered: 10/07/2024 [facility] Comment on above: Ordered: 10/07/2024 OUTSIDE VENDOR CARDI AC OUTPATIENT EXTENDED RHYTHM RECORDING (WITHOUT TELEMETRY) OUTSIDE VENDOR CARDIAC OUTPATIENT EXTENDED RHYTHM RECORDING (WITHOUT TELEMETRY) Holter Routine Syncope, unspecified syncope type Ordered: 01/28/2023 [facility] Work Phone: Comment on above: Ordered: 01/28/2023 RAPID STREP TEST B/O RAPID STREP TEST B/O Lab Routine Sore throat Acute cough Otalgia of both ears Ordered: 01/15/2024 [facility] Work Phone: Comment on above: Ordered: 01/15/2024 SURGICAL PATHOLOGY [facility] Work Phone: Comment on above: Release Upon Ordering for 1 Occurrences starting 07/04/2023, 1 completed End: 07-29-2023 Urinalysis complete panel - Urine URINALYSIS, WITH MICROSCOPIC Lab Routine Type 2 diabetes mellitus with stage 3 chronic kidney disease, with long-term current use of insulin, unspecified whether stage 3a or 3b CKD (HCC) Recurrent UTI (urinary tract infection) Every other week for 30 Occurrences starting 07/29/2022 until 07/29/2023 [facility] Work Phone: Comment on above: Every other week for 30 Occurrences star ting 07/29/2022 until 07/29/2023 End: 11-06-2025 US Abdomen US ABDOMEN COMPLETE Radiology Routine Anemia, unspecified type Abdominal bloating 1 Occurrences starting 10/07/2024 until 11/06/2025 [facility] Comment on above: 1 Occurrences starting 10/07/2024 until 11/06/2025 US Abdomen US ABDOMEN COMPL ETE Radiology Routine Anemia, unspecified type Abdominal bloating 10/11/2024 9:48 AM EST [facility] Work Phone: End: 12-22-2025 US Abdomen RUQ US ABD RIGHT UPPER QUADRANT Radiology Routine Fatty liver Abnormal CT of the abdomen 1 Occurrences starting 11/22/2024 until 12/22/2025 [facility] Work Phone: Comment on above: 1 Occurrences starting 11/22/2024 until 12/22/2025 US Abdomen RUQ US ABD RIGHT UPP ER QUADRANT Radiology Routine Fatty liver Abnormal CT of the abdomen 11/26/2024 9:10 AM EST [facility] Work Phone: End: 08-28-2023 Us abdominal real time w/image limited US ABD RT UPPER QUADRANT Radiology Routine RUQ abdominal pain 1 Occurrences starting 07/29/2022 until 08/28/2023 [facility] Work Phone: Comment on above: 1 Occurrences starting 07/29/2022 until 08/28/2023 End: 08-01-2022 Us abdominal real time w/image limited [facility] Work Phone: Comment on above: 1 Occurrences starting 08/01/2022 until 08/01/2022 End: 01-29-2024 US CAROTID ARTERIES [facility] US CAROTID ARTERIES [facility] Vascular Lab Routine Syncope, unspecified syncope type Increased frequency of headaches Headache, worsening Short-term memory loss 1 Occurrences starting 01/28/2023 until 01/29/2024 [facility] Work Phone: Comment on above: 1 Occurrences starting 01/28/2023 until 01/29/2024 [facility] Immunizations Immunization Date Immunization Notes Care Provider Alvin nunez 08-17-2024 influenza virus vaccine, unspecified formulation Blanca King APRN.CNP Work Phone: [facility] 08-02-2024 influenza, high dose seasonal, preservative-free Mariano Pearce DO Work Phone: [facility] 10-08-2023 zoster vaccine recombinant Demetra Rosalba CUSTOMER CARE REPRESENTATIVE.[employer]ING [employer]ER Work Phone: [facility] 07-30-2023 influenza (HD-IIV4) vaccine, age 65+ yr, high dose, quadrivalent, PF (FLUZONE HIGH-DOSE) Mariano Pearce DO Work Phone: [facility] Work Phone: 07-30-2023 pneumococcal (PCV20) vaccine, 20 valent (PREVNAR 20) Mariano Freedmanrison DO Work Phone: [facility] Work Phone: 07-30-2023 pneumococcal Conjuga te, unspecified formulation Mariano Freedmanrison DO Work Phone: [facility] Work Phone: 07-30-2023 influenza virus vaccine, unspecified formulation Greta Watts [facility] Work Phone: [facility] 07-29-2022 influenza, high-dose , quadrivalent vaccine (FLUZONE HIGH DOSE QUADRIVALENT) Mariano Freedmanrison DO Work Phone: [facility] [facility] Work Phone: 08-20-2021 influenza, high-dose , quadrivalent vaccine (FLUZONE HIGH DOSE QUADRIVALENT) [facility] Work Phone: [facility] 07-31-2021 zoster vaccine recombinant Demetra Navarrete CUSTOMER CARE REPRESENTATIVE.WARP DYEING TENDER Work Phone: [facility] 05-29-2021 zoster vaccine recombinant [facility] Work Phone: [facility] 02-12-2021 COVID-19 vaccine, fu ll dose (MODERNA) [facility] 01-15-2021 COVID-19 vaccine, fu ll dose (MODERNA) [facility] Work Phone: [facility] 08-08-2020 influenza, high-dose , quadrivalent vaccine (FLUZONE HIGH DOSE QUADRIVALENT) [facility] Work Phone: [facility] Work Phone: 08-24-2019 influenza, high dose seasonal, preservative-free [facility] Work Phone: [facility] Work Phone: 08-04-2018 influenza, high dose seasonal, preservative-free [facility] Work Phone: [facility] Work Phone: 12-24-2017 pneumococcal polysaccharide vaccine, 23 valent [facility] Work Phone: [facility] Work Phone: 09-23-2017 influenza, high dose seasonal, preservative-free [facility] Work Phone: [facility] Work Phone: 12-16-2016 pneumococcal conjuga te vaccine, 13 valent [facility] Work Phone: [facility] Work Phone: 08-08-2016 influenza, injectabl e, quadrivalent, contains preservative [facility] Work Phone: [facility] 09-18-2015 tetanus toxoid, redu tiny diphtheria toxoid, and acellular pertussis vaccine, adsorbed [facility] Work Phone: [facility] Work Phone: 08-07-2015 influenza, seasonal, injectable [facility] Work Phone: [facility] 08-07-2015 influenza, seasonal, injectable, preservative free Demetra Rosalba CUSTOMER CARE REPRESENTATIVE.WARP DYEING TENDER Work Phone: [facility] 08-30-2014 influenza, seasonal, injectable [facility] Work Phone: [facility] Work Phone: 08-17-[address] Mariano Pearce DO Work Phone: [facility] 09-15-2012 influenza virus vaccine, unspecified formulation [facility] Work Phone: [facility] 08-24-2012 zoster vaccine, live Farhad Vo [facility] Work Phone: [facility] 09-04-2011 influenza virus vaccine, unspecified formulation Farhad Pimentel [facility] Work Phone: [facility] 08-28-2010 influenza virus vaccine, unspecified formulation [facility] Work Phone: [facility] Work Phone: 03-16-2010 pneumococcal polysaccharide vaccine, 23 valent Farhad [facility] Work Phone: [facility] Work Phone: 08-11-2009 influenza virus vaccine, unspecified formulation Farhad Pimentel [facility] Work Phone: [facility] Work Phone: 10-08-2006 influenza virus vaccine, unspecified formulation [facility] Work Phone: [facility] Work Phone: 08-21-2004 pneumococcal polysaccharide vaccine, 23 valent [facility] Work Phone: [facility] Work Phone: 09-30-2000 influenza virus vaccine, whole virus [facility] Work Phone: [facility] Work Phone: 08-23-1999 influenza virus vaccine, whole virus [facility] Work Phone: [facility] Work Phone: 08-18-1998 influenza virus vaccine, whole virus [facility] Work Phone: [facility] Work Phone: 10-21-1996 hepatitis B immune globulin [facility] Work Phone: [facility] Work Phone: 04-21-1996 hepatitis B immune globulin [facility] Work Phone: [facility] Work Phone: 03-17-1996 hepatitis B immune globulin Farhad Pimentel [facility] Work Phone: [facility] Work Phone: Payers Date Payer Category Payer Self-pay 2018 Medicare MMO MEDICARE MMO MEDADVANTAGE HMO [id number] 2018-Present [phone] [address] [place] [address] O [id number] 2018 Medicare MMO MEDICARE MMO MEDADVANTAGE HMO [id number] 2018-Present [phone] [address] [place] [address] O [id number] 2018 Medicare (Managed Care) MMO CHIP DVANTAGE HMO [id number] 2018 Unknown [id number] 2016 Private Health Insurance [employer] [id number] Unknown [id number] Unknown [id number] Unknown [id number] Social History Date Type Detail Facility Start: 05-09-2021 End: 08-22-2022 Tobacco smoking status NHIS Never smoked tobacco [facility] Work Phone: Start: 12-24-2021 End: 05-27-2025 Alcohol intake Current non-drinker of alcohol (finding) [facility] Start: 1950 Sex Assigned At Not on file [facility] Start: 11-10-2021 End: 07-29-2022 Exposure to SARS-CoV-2 (event) Not sure [facility] Start: 08-22-2022 Tobacco use and exposure Smokeless tobacco non-user [facility] Work Phone: Start: 03-25-2023 End: 05-21-2023 History of Social function [facility] Work Phone: Start: 03-25-2023 End: 05-21-2023 Tobacco use panel [facility] Work Phone: Start: 10-18-2012 Adult Depression Screening Assessment 2 [facility] Work Phone: Start: 05-22-2015 Alcohol Alcohol [facility] Start: 08-06-2014 Lives Lives [facility] Start: 05-22-2015 Tobacco Use Tobacco Use [facility] Start: 1950 Sex Assigned At Female W [facility] Medical Equipment Procedure Code Equipment Code Equipment Origin al Text Equipment Identifier Dates [id number], [id number], [id number], [id number], [id number], [id number], [id number], [id number], [id number], [id number], [id number], [id number], [id number], [id number], [id number], [id number] Start: 06-26-2015 End: 09-30-2024 Comment on above: Test blood sugar 3-4 times daily, DX: E11.65 Insulin: yes Use 4 pen needles da wilma with Basaglar and Humalog DM2, 250.00, non ins ulin dependent, testing 1-2 times a day PT IS TO TEST BLOOD SUGAR 1-2 TIMES PER DAY DX:EII.65 Use to test blood gonzalez gar as directed. Use to check blood s ugar four times daily Functional Status Date Assessment Result Facility 03-02-[address] score Ser Pl Calc.FibroSure 0.64 [facility] Comment on above: Order Comment: Speci men Type: BLOOD SPECIMENOrdering Facility: [facility] Address: [address] [place] [address] Performed By: #### L IVFIB ####[facility] LABCLIA [id number] [address] 03-02-2025 Necroinflammatory ac t score SerPl 0.21 [facility] Comment on above: Order Comment: Speci men Type: BLOOD SPECIMENOrdering Facility: [facility] Address: [address] [place] [address] Performed By: #### L IVFIB ####[facility] LABCLIA [id number] [address] OF [facility] 05-15-2015 Are you deaf, or do you have serious difficulty hearing No 05/15/2015 9:28 AM Cici Robbins Ma [facility] 05-15-2015 Are you blind, or do you have serious difficulty seeing, even when wearing glasses No 05/15/2015 9:28 AM Cici Robbins Ma [facility] 05-15-2015 Do you have serious difficulty walking or climbing stairs No 05/15/2015 9:28 AM Cici Robbins Ma [facility] 05-15-2015 Do you have difficul ty dressing or bathing No 05/15/2015 9:28 AM Cici Robbins Ma [facility] 05-15-2015 Because of a physica l, mental, or emotional condition, do you have difficulty doing errands alone such as visiting a physician's office or shopping No 05/15/2015 9:28 AM Cici Robbins Ma [facility] Mental Status Date Assessment Result Facility 05-15-2015 Because of a physica l, mental, or emotional condition, do you have serious difficulty concentrating, remembering, or making decisions No 05/15/2015 9:28 AM EDT Mirtha Oconnell, Cici Khan [facility] Clinical Notes 02-16-2019 to 09-22-2025 Telephone Encounter - Sherita Madsen MA - 07/29/2025 9:00 AM EDTTelephone Encounter - Sherita Madsen MA - 07/29/2025 9:00 AM EDTTelephone Encounter - Florida Bal RN - 07/12/2025 3:43 PM EDT Note Date & Type Note Facility 09-22-2025 Note [facility] 09-22-2025 Note [facility] 09-16-2025 Note [facility] 08-19-2025 Note [facility] 08-18-2025 Note [facility] 08-04-2025 Note HNO ID: [id number] Author: KIM LOVE LPN Service: ? Author Type: Licensed Nurse Type: Progress Notes Filed: 08/22/2025 07:44 Note Text: Pt receives flu vaccine as ordered . Tolerated well. [facility] 08-04-2025 Note [facility] 07-29-2025 Telephone encounter Note Pt notified and voiced understanding. Sherita Madsen MA [facility] 07-29-2025 Miscellaneous Notes Pt notified and voiced understanding. Sherita Madsen MA ----- Message from Caridad Chapman APRN.WARP DYEING TENDER sent at 07/29/2025 7:52 AM EDT ----- Please let Opal know her labs returned, her A1C is increased, as well as cholesterol numbers. Good thing is her albumin/creatinine ratio is improved which is showing improvement in kidney damage. We will discuss further at visit 18th, just please ask her to bring blood sugars or her machine/anthony in with her and that we will want to have accurate med and insulin list that she is doing at home. Thank you! ----- Message ----- From: Lab, Background User Sent: 07/27/2025 9:03 AM EDT To: Caridad Chapman APRN.WARP DYEING TENDER documented in this encounter [facility] 07-29-2025 Telephone encounter Note ----- Message from Caridad Chapman APRN.WARP DYEING TENDER sent at 07/29/2025 7:52 AM EDT ----- Please let Opal know her labs returned, her A1C is increased, as well as cholesterol numbers. Good thing is her albumin/creatinine ratio is improved which is showing improvement in kidney damage. We will discuss further at visit 18th, just please ask her to bring blood sugars or her machine/anthony in with her and that we will want to have accurate med and insulin list that she is doing at home. Thank you! ----- Message ----- From: Lab, Background User Sent: 07/27/2025 9:03 AM EDT To: Caridad Chapman APRN.WARP DYEING TENDER [facility] 07-12-2025 Telephone encounter Note Nurse has been working w/ financial team regarding denials, Second level appeal recently faxed to insurance to review Florida Bal RN July 12, 2025 3:44 PM [facility] 07-12-2025 Miscellaneous Notes Nurse has been working w/ financial team regarding denials, Second level appeal recently faxed to insurance to review Florida Bal RN July 12, 2025 3:44 PM Appeal denied Letter scanned in under external correspondence-insurance Jazmyn Robin Geodetic Advisor ll documented in this encounter [facility] 07-12-2025 Telephone encounter Note Appeal denied Letter scanned in under external correspondence-insurance Jazmyn Robin Geodetic Advisor ll [facility] 07-11-2025 Telephone encounter Note The patient has been identified by name and date of : Yes Caregiver verified no other encounters exist for this prescription request: Yes Caregiver confirmed with patient/requestor that no other refills are due, in the near future, with this provider at this time: Yes The last office visit in the department: 05/04/2025 Does the patient have a future office visit with this provider/department: Yes 08/04/2025 Requested Prescriptions Pending Prescriptions Disp Refills citalopram hydrobromide (CELEXA) 10 mg tablet 30 tablet 2 Sig: Take 1 tablet by mouth once daily. levothyroxine (SYNTHROID) 125 mcg tablet 30 tablet 2 Sig: Take on empty stomach. For Thyroid. Take 1 tablet on Friday, Friday, , Friday, Friday. Take a half tablet on Friday and Friday. Michaela Bates RN [facility] 07-11-2025 Miscellaneous Notes The patient has been identified by name and date of : Yes Caregiver verified no other encounters exist for this prescription request: Yes Caregiver confirmed with patient/requestor that no other refills are due, in the near future, with this provider at this time: Yes The last office visit in the department: 05/04/2025 Does the patient have a future office visit with this provider/department: Yes 08/04/2025 Requested Prescriptions Pending Prescriptions Disp Refills citalopram hydrobromide (CELEXA) 10 mg tablet 30 tablet 2 Sig: Take 1 tablet by mouth once daily. levothyroxine (SYNTHROID) 125 mcg tablet 30 tablet 2 Sig: Take on empty stomach. For Thyroid. Take 1 tablet on Friday, Friday, , Friday, Friday. Take a half tablet on Friday and Friday. Michaela Bates RN documented in this encounter [facility] 06-17-2025 Telephone encounter Note Patient has been identified by name and date of : Yes, Patient phones for refill(s): Requested Prescriptions Pending Prescriptions Disp Refills traZODone (DESYREL) 50 mg tablet 30 tablet 2 Sig: Take 1 tablet by mouth at bedtime as needed. Date of last office visit in primary care: 05/04/2025 Date of next office visit in primary care: 08/04/2025 Please advise. Thank you. Kusum Rea. [facility] 06-17-2025 Miscellaneous Notes Patient has been identified by name and date of : Yes, Patient phones for refill(s): Requested Prescriptions Pending Prescriptions Disp Refills traZODone (DESYREL) 50 mg tablet 30 tablet 2 Sig: Take 1 tablet by mouth at bedtime as needed. Date of last office visit in primary care: 05/04/2025 Date of next office visit in primary care: 08/04/2025 Please advise. Thank you. Kusum Rea. documented in this encounter [facility] 06-09-2025 History of Present illness Narrative Images from the original note were not included. Primary Care Pharmacy Visit CC (Reason for Consult): (E11.22, N18.30, Z79.4) Type 2 diabetes mellitus with stage 3 chronic kidney disease, with long-term current use of insulin, unspecified whether stage 3a or 3b CKD (HCC) (primary encounter diagnosis) Goal(s): A1c <7% Last Collaborating Provider Visit: 05/04/25 with Caridad Tank Ari, WARP DYEING TENDER Angeli K Case is a 74 year old female presenting for follow up visit in person. Patient consents to pharmacy collaborative practice agreement. Last Pharmacy Visit: 03/10/25 - A1c ordered Interim Events: - 04/05/25 A1c results: 7.6% HPI: Reports doing well States she's had several low blood sugars, mostly in the mornings and overnight Treated low this morning with orange juice Maybe 5 times skipped Humalog in the last week due to BG being <150 No missed doses of Basaglar in last couple weeks Current DM Medications: Basaglar 56 units twice daily Humalog 16 units + sliding scale #1 with meals - if BG is <150, skips Humalog Previously Trialed DM Meds: Glipizide - hypoglycemia Metformin ER - GI upset Liraglutide - cost-prohibitive; pt felt it did not offer much BG-lowering Trulicity - stomach issues + HIPOLITO Jardiance - unable to afford (income above eligibility limits for pap) Diet Denies any recent changes GLYCEMIC CONTROL: Glucometer present at visit: Yes Hypoglycemia: Yes CGM Data Past medical history reviewed. ALLERGIES Allergen Reactions Crestor [Rosuvastat* Other: See Comments Legs achy Niacin Itching Erythromycin GI Upset Iodine Rash Latex reddness Lescol [Fluvastatin* GI Upset Lipitor [Atorvastat* Intolerance Muscle aching Naprosyn [Naproxen] uncertain Pravastatin Myalgia Arm pain Bnwdwpc-Tkx-Wji Red* Intolerance Sulfa (Sulfonamide * Hives Trulicity [Dulaglut* GI Upset Vomiting, diarrhea Hospitalized Vibramycin [Doxycyc* GI Upset Vioxx [Rofecoxib] Swelling Zocor [Simvastatin] uncertain Current Outpatient Medications Medication Sig Dispense Refill diphenhydrAMINE (BENADRYL) 50 mg capsule Take 1 capsule by mouth as directed for 1 dose. one (1) hour prior to exam. 1 capsule 0 omeprazole (PRILOSEC) 40 mg capsule Take 1 capsule by mouth once daily. 90 capsule 3 CPAP/BIPAP/OTHER Type .CPAPSettings into a note to see current settings/supplies/DME information. 1 each 0 traZODone (DESYREL) 50 mg tablet Take 1 tablet by mouth at bedtime as needed. 30 tablet 2 clonazePAM (KLONOPIN) 0.5 mg tablet Take 1 tablet by mouth at bedtime as needed for up to 15 days. Only if trazodone is ineffective 15 tablet 0 citalopram hydrobromide (CELEXA) 10 mg tablet Take 1 tablet by mouth once daily. 30 tablet 2 levothyroxine (SYNTHROID) 125 mcg tablet Take on empty stomach. For Thyroid. Take 1 tablet on Friday, Friday, , Friday, Friday. Take a half tablet on Friday and Friday. 30 tablet 2 insulin lispro (HUMALOG KWIKPEN INSULIN) 100 unit/mL Inject 16 units with breakfast, 16 units with lunch, and 16 units with dinner + sliding scale insulin (1 unit for every 50 >150 pts). Gets through 3 Four 5 Group [facility]. metoprolol tartrate, short acting, (LOPRESSOR) 100 mg tablet Take 1 tablet by mouth two times a day. 180 tablet 3 insulin glargine (BASAGLAR KWIKPEN U-100 INSULIN) 100 unit/mL (3 mL) Inject 56 Units subcutaneously two times a day. 105 mL 3 Blood-Glucose Meter Use to check blood sugar daily 1 Each 0 blood sugar diagnostic (BLOOD GLUCOSE TEST) test strip Use to check blood sugar four times daily 400 Each 3 Lancets Use to check blood sugar four times daily 400 Each 3 alcohol swabs (ALCOHOL PADS) Test Four times a day. Insulin Dep? Yes E11.9 DM 2 and E10.9 DM 1 200 Each 5 enalapril (VASOTEC) 20 mg tablet Take 1 tablet by mouth two times a day. 180 tablet 3 ezetimibe (ZETIA) 10 mg tablet Take 1 tablet by mouth once daily. For cholesterol 90 tablet 3 Blood-Glucose Meter,Continuous (FREESTYLE BETSEY 3 READER) [facility] Use to monitor blood glucose continuously 1 Each 0 Blood-Glucose Sensor (FREESTYLE BETSEY 3 SENSOR) magdi Apply new sensor to back of upper arm every 14 days 6 Each 4 flash glucose sensor (FREESTYLE BETSEY 14 DAY SENSOR) kit Type 2 diabetes uncontrolled, insulin dependent, Apply sensor to back of arm to check blood sugars as directed. Change sensor every 2 weeks and rotate arms. 6 Kit 2 omega-3 DHA-EPA (FISH OIL) 1,200 (144-216) mg capsule Take 1 capsule by mouth once daily. Insulin [place], Disposable, (BD ULTRA-FINE PATRICIO PEN NEEDLE) 32 gauge x Use 4 pen needles daily with Basaglar and Humalog 360 Each 3 flash glucose scanning reader (LivescribeSTYLE BETSEY 14 DAY READER) Use to check blood sugar as directed. 1 Each 0 cholecalciferol (VITAMIN D3) 50 mcg (2,000 unit) tablet Take one tablet by mouth once daily Friday through Friday. No current facility-administered medications for this visit. Pill bottles are not present. Adherence: denies missed doses of Basaglar; however, skips doses of Humalog if BG<150 pre-meal. Rx coverage: Payor: [facility] MEDICARE / Plan: [employer] HMO / Product Type: HMO / Medications affordable? Yes Patient Assistance Programs being utilized: [employer] Medication Status Renewal Due Where Delivered [employer] Basaglar Approved 11/16/2025 Patient home [employer] Humalog Approved 11/16/2025 Patient home PHARMACOTHERAPY PREVENTATIVE MEDS: On STEPHANIA/ARB: Yes On Statin: No, statin intolerance. On ezetimibe On ASA: No EXAM: There were no vitals taken for this visit. Last 3 Encounter BP Readings: Date: BP: 05/27/2025 158/43[Patient has not taken am medication was suppose to had a Fibroscan[ 05/04/2025 118/76 03/02/2025 179/56[pt feels nauseas. denies other symptoms[ Wt: 82.3 kg (181 lb 7 oz) BMI: 33.19 kg/(m^2) LABS: Lab Results Component Value Date HBA1C 7.6 04/05/2025 HBA1C 9.7 01/06/2025 HBA1C 10.5 10/07/2024 HBA1C 7.1 07/30/2023 HBA1C 7.9 06/01/2021 HBA1C 8.5 02/27/2021 HBA1C 8.0 11/03/2020 Glucose 132 03/02/2025 BUN 11 03/02/2025 Creatinine 1.12 03/02/2025 Sodium 141 03/02/2025 Potassium 4.3 03/02/2025 Chloride 106 03/02/2025 CO2 27 03/02/2025 Protein, Total 6.8 03/02/2025 Albumin 3.7 03/02/2025 Calcium 9.8 03/02/2025 Alkaline Phosphatase 119 03/02/2025 Bilirubin, Total 0.3 03/02/2025 AST 42 03/02/2025 ALT 28 03/02/2025 Lab Results Component Value Date CHOL 116 01/08/2024 CHOL 213 11/03/2020 CHOL 195 08/03/2020 LDL 53 01/08/2024 LDL 116 11/03/2020 LDL 105 08/03/2020 HDL 33 01/08/2024 HDL 34 11/03/2020 HDL 34 08/03/2020 TG 150 01/08/2024 TG 314 11/03/2020 TG 279 08/03/2020 Albumin/Creat Ratio (mg/g) Date Value 07/26/2024 171 (H) eGFR-All Other Races (.) Date Value 06/01/2021 49 Estimated Glomerular Filtration Rate (mL/min/1.73m ) Date Value 03/02/2025 52 ASSESSMENT/PLAN: 1. Type 2 diabetes mellitus with stage 3 chronic kidney disease, with long-term current use of insulin, unspecified whether stage 3a or 3b CKD (HCC) - ICD9: 250.40, 585.3, V58.67, ICD10: E11.22, N18.30, Z79.4 - Improving control - Decrease Basaglar to 50 units twice daily - Decrease Humalog to 14 units TID before meals. Discussed importance of taking regularly with every meal, as long as BG>80 pre-meal - Blood glucose monitoring on a continuous glucose monitoring schedule - Counseled on healthy diet and regular exercise - Discussed diabetic education issues of hypoglycemic/hyperglycemic symptoms - Follow up in 3 months, sooner should any other issues arise. - Due for lipid panel and A1c ~07/06/25 (already ordered), UACR~07/26/25 to be completed with other labs previously ordered Overdue Diabetes Health Maintenance: Health Maintenance - Diabetes Topic Date Due LDL Cholesterol 01/08/2025 Follow Up: Next PCP visit: 08/04/25 Next PharmD visit: 09/22/25 Greta Watts, ChristoD, BCACP Primary Care Clinical Law Writer I spent a total of 25 minutes on the date of the service which included preparing to see the patient, myuk-ui-yilp patient care, completing clinical documentation, counseling and educating the patient/family/caregiver, and ordering medications, tests, or procedures. documented in this encounter [facility] 06-09-2025 Instructions Greta Watts RPh - 06/09/2025 1:00 PM EDT Decrease Basaglar to 50 units twice daily Take Humalog before every meal, as log as blood sugar is above 80 -- Decrease Humalog 14 units before meals Labs due end june documented in this encounter [facility] 06-09-2025 Note [facility] 06-03-2025 Telephone encounter Note Blanca sent nurse the following msg: Imaging is coming back with findings consistent with cirrhosis. No liver lesions or masses seen. I would say based on these results, will need to manage her as having cirrhosis Should set up a visit with myself or a link fabric machine operator to further discuss management. If she sets up mychart could do virtual if she likes. Nurse attempted to call pt. LVM w/ office call back # Florida Bal RN June 03, 2025 12:25 PM [facility] 06-03-2025 Miscellaneous Notes Blanca sent nurse the following msg: Imaging is coming back with findings consistent with cirrhosis. No liver lesions or masses seen. I would say based on these results, will need to manage her as having cirrhosis Should set up a visit with myself or a link fabric machine operator to further discuss management. If she sets up mychart could do virtual if she likes. Nurse attempted to call pt. LVM w/ office call back # Florida Bal RN June 03, 2025 12:25 PM documented in this encounter [facility] 06-01-2025 History of Present illness Narrative Radiology Service Progress Note DATE OF SERVICE: June 01, 2025 TIME: 3:13 PM PATIENT IDENTITY VERIFICATION COMPLETED USING TWO (2) STANDARD IDENTIFIERS: Name and Date of confirmed by patient verbally. FALL SCREENING: Has the patient had 2 falls in the last year or 1 fall with injury or currently using an Ambulatory Assistive Device (Walker, Cane, Wheelchair, Crutches, etc.)? No PATIENT GENDER DATA: Assigned female at . status: : No status: NO. PATIENT RELEVANT IMPLANT DATA REVIEWED: Yes PATIENT PRESENTS WITH AN IMPLANTABLE OR ATTACHED CLAIM CLINICIAN: No ALLERGIES: Reviewed and unchanged CONTRAST ALLERGY: NO. EXAM: MRI - CONTRAST TYPE: GROUP II PERIPHERAL IV DATA: Ambulatory: A peripheral IV was started in the Right forearm with a Angio cath: 22 gauge. RADIOLOGY DEPARTMENT: MR; Exam(s) Completed: Body: Pancreas/Biliary. Aromatherapy Administered: No SIGNATURE: RT Dex(R) PATIENT NAME: Angeli Rees DATE: June 01, 2025 TIME: 3:13 PM documented in this encounter [facility] 06-01-2025 Note [facility] 05-27-2025 Instructions Blanca King APRN.CNP - 05/27/2025 11:49 AM EDT Schedule MRI; I will update you if premedication is needed for this test due to allergies Follow up will be based on test results documented in this encounter [facility] 05-27-2025 Note [facility] 05-27-2025 History of Present illness Narrative NAME: Angeli Ramirez Case CLINIC NO: [id number] REFERRING PHYSICIAN: Blanca King PRESENTING COMPLAINT: follow up, concern for cirrhosis HPI: Angeli Ramirez Case is a 74 year old female is here on follow up for fatty liver and cirrhosis seen on imaging . Pmhx includes arthritis, CKD, fibromyalgia, gout, HTN, T2DM, IBS FANY with me on 03/02/25/ At that time: CLARISSE Ramirez Case is a 74 year old year old female who presents with fatty liver and cirrhosis seen on imaging . Pmhx includes arthritis, CKD, fibromyalgia, gout, HTN, T2DM, IBS Will fill in serological evaluation for CLD. Discussed pathology of cirrhosis and further testing to establish cirrhosis dx. Discussed SLD and management as below. Advised to follow up with Dr. Pearce regarding + stool occult; will assess CBC today. Denies findings BRB in stool FIB-4 Calculation: 3.44 at 01/06/2025 1:45 PM Calculated from: SGOT/AST: 30 U/L at 11/03/2024 1:55 PM SGPT/ALT: 26 U/L at 11/03/2024 1:55 PM Platelets: 125 k/uL at 01/06/2025 1:45 PM Age: 74 years PLAN - AYESHA BLOOD - AOKPR-4-HCDSWAENPAZ - IRON AND TIBC - FERRITIN - DDI VIBRATION CONTROLLED TRANSIENT ELASTOGRAPHY (VCTE) - HEPATIC FUNCTION PNL - PROTHROMBIN TIME - COMPLETE BLOOD COUNT AND DIFFERENTIAL - BASIC METABOLIC PANEL - ALPHA FETOPROTEIN - MITOCHONDRIAL M2 IGG SERUM - SMOOTH MUSCLE AB SCR - HEPATITIS A ANTIBODY, IGG - HEP REMOTE PANEL BL - LIVER FIBROSIS AND ACTIVITY Interval hx: She is doing ok No issues or concerns Best friend last night Fibroscan was not completed yet, unable to do today as machine is not working Serological evaluation unremarkable PT currently denies jaundice, confusion/disorientation, ascites, hematemesis, dark/tarry stools, claudia colored stools, or dark urine. All other systems reviewed and are negative REVIEW OF SYSTEMS GENERAL: No unexplained weight changes or fevers. HEENT: Negative for severe headaches, negative for changes in hearing or vision. NECK: Negative for lumps, masses or pain. RESPIRATORY: Negative for coughing, wheezing or significant dyspnea. CARDIOVASCULAR: Negative for chest pain or heart palpitations. GASTROINTESTINAL: Negative for rectal bleeding or black tarry stools. GENITOURINARY: Negative for dysuria or urinary incontinence. MUSCULOSKELETAL: Negative for unexplained joint pains, dislocations or fractures. NEUROLOGIC: Negative for unexplained weakness or vertigo. SKIN: Negative for new lesions or rashes. ENDOCRINE: Negative for cold or heat intolerance . Current Outpatient Medications Medication Sig Dispense Refill omeprazole (PRILOSEC) 40 mg capsule Take 1 capsule by mouth once daily. 90 capsule 3 CPAP/BIPAP/OTHER Type .CPAPSettings into a note to see current settings/supplies/DME information. 1 each 0 traZODone (DESYREL) 50 mg tablet Take 1 tablet by mouth at bedtime as needed. 30 tablet 2 citalopram hydrobromide (CELEXA) 10 mg tablet Take 1 tablet by mouth once daily. 30 tablet 2 levothyroxine (SYNTHROID) 125 mcg tablet Take on empty stomach. For Thyroid. Take 1 tablet on Friday, Friday, , Friday, Friday. Take a half tablet on Friday and Friday. 30 tablet 2 insulin lispro (HUMALOG KWIKPEN INSULIN) 100 unit/mL Inject 16 units with breakfast, 16 units with lunch, and 16 units with dinner + sliding scale insulin (1 unit for every 50 >150 pts). Gets through [employer]. metoprolol tartrate, short acting, (LOPRESSOR) 100 mg tablet Take 1 tablet by mouth two times a day. 180 tablet 3 insulin glargine (BASAGLAR KWIKPEN U-100 INSULIN) 100 unit/mL (3 mL) Inject 56 Units subcutaneously two times a day. 105 mL 3 Blood-Glucose Meter Use to check blood sugar daily 1 Each 0 blood sugar diagnostic (BLOOD GLUCOSE TEST) test strip Use to check blood sugar four times daily 400 Each 3 Lancets Use to check blood sugar four times daily 400 Each 3 alcohol swabs (ALCOHOL PADS) Test Four times a day. Insulin Dep? Yes E11.9 DM 2 and E10.9 DM 1 200 Each 5 enalapril (VASOTEC) 20 mg tablet Take 1 tablet by mouth two times a day. 180 tablet 3 ezetimibe (ZETIA) 10 mg tablet Take 1 tablet by mouth once daily. For cholesterol 90 tablet 3 Blood-Glucose Meter,Continuous (FREESTYLE BETSEY 3 READER) [facility] [place] Use to monitor blood glucose continuously 1 Each 0 Blood-Glucose Sensor (FREESTYLE BETSEY 3 SENSOR) magdi Apply new sensor to back of upper arm every 14 days 6 Each 4 flash glucose sensor (FREESTYLE BETSEY 14 DAY SENSOR) kit Type 2 diabetes uncontrolled, insulin dependent, Apply sensor to back of arm to check blood sugars as directed. Change sensor every 2 weeks and rotate arms. 6 Kit 2 omega-3 DHA-EPA (FISH OIL) 1,200 (144-216) mg capsule Take 1 capsule by mouth once daily. Insulin [place], Disposable, (BD ULTRA-FINE PATRICIO PEN NEEDLE) 32 gauge x /32 Use 4 pen needles daily with Basaglar and Humalog 360 Each 3 flash glucose scanning reader (LivescribeSTYLE BETSEY 14 DAY READER) Use to check blood sugar as directed. 1 Each 0 cholecalciferol (VITAMIN D3) 50 mcg (2,000 unit) tablet Take one tablet by mouth once daily Friday through Friday. clonazePAM (KLONOPIN) 0.5 mg tablet Take 1 tablet by mouth at bedtime as needed for up to 15 days. Only if trazodone is ineffective 15 tablet 0 No current facility-administered medications for this visit. ALLERGIES Allergen Reactions Crestor [Rosuvastat* Other: See Comments Legs achy Niacin Itching Erythromycin GI Upset Iodine Rash Latex reddness Lescol [Fluvastatin* GI Upset Lipitor [Atorvastat* Intolerance Muscle aching Naprosyn [Naproxen] uncertain Pravastatin Myalgia Arm pain Zmoosgt-Omi-Qqy Red* Intolerance Sulfa (Sulfonamide * Hives Trulicity [Dulaglut* GI Upset Vomiting, diarrhea Hospitalized Vibramycin [Doxycyc* GI Upset Vioxx [Rofecoxib] Swelling Zocor [Simvastatin] uncertain Social History Tobacco Use Smoking status: Never Smokeless tobacco: Never Vaping Use Vaping status: Never Used Substance Use Topics Alcohol use: No Drug use: No PAST MEDICAL HISTORY Diagnosis Date Advance care planning 04/23/2022 daughter Rebecca Case is medical POA per patient Allergic rhinitis, cause unspecified Allergic rhinitis Arthritis Benign hypertensive heart disease without heart failure BPPV (benign paroxysmal positional vertigo) Chronic kidney disease (CKD) stage G3a/A2, moderately decreased glomerular filtration rate (GFR) between 45-59 mL/min/1.73 square meter and albuminuria creatinine ratio between 30-299 mg/g (HCC) Diverticulitis Esophageal reflux Fatty liver Fatty liver Fibromyalgia Gastric polyp 07/04/2014 Dr. Spence, needs repeat EGD in 01/01 Gout right great toe Hernia of other specified sites of abdominal cavity without mention of obstruction or gangrene HIATAL Hypertension IBS (irritable bowel syndrome) Irritable bowel syndrome Leiomyoma of uterus Other and unspecified hyperlipidemia PONV (postoperative nausea and vomiting) 03/11/2018 Renal calculi Snoring Type II or unspecified type diabetes mellitus without mention of complication, not stated as uncontrolled Unspecified hemorrhoids without mention of complication Hemorrhoids Unspecified hypothyroidism @SHX@ FAMILY HISTORY Problem Relation Age of Onset Hypertension Mother other (DEMENTIA) Mother onset in her 70's Tremor Mother ? Parkinson's Diabetes Father Hypertension Father Lipids Father Anesthesia Problems Sister at 19 yo cardiac arrest during appendectomy, did not survive, 1960' Cancer Maternal Grandmother gallbladder PHYSICAL EXAM BP 158/43[Patient has not taken am medication was suppose to had a Fibroscan[ Pulse 57 Temp (Src) 97.1 (Temporal) Ht 5' 2 (1.58m) Wt 181 lb 7 oz (82.3kg) SpO2 97% BMI 33.18 kg/(m^2). General Appearance: Well appearing, alert, in no acute distress, well-hydrated, well nourished. Eyes: conjunctiva and sclera normal Lungs:breathing comfortably Heart: regular rate Abdomen: not distended Extremities: no cyanosis or edema Skin: no jaundice, no spider angiomas, no palmar erythema Neuro:alert, oriented x 3, pleasant and in no acute distress Recent Labs: Hemoglobin (g/dL) Date Value 03/02/2025 9.8 02/27/2021 12.1 Hematocrit (%) Date Value 03/02/2025 33.0 02/27/2021 37.3 WBC (k/uL) Date Value 03/02/2025 5.50 02/27/2021 8.33 Glucose (mg/dL) Date Value 03/02/2025 132 06/01/2021 263 Potassium (mmol/L) Date Value 03/02/2025 4.3 06/01/2021 4.8 Sodium (mmol/L) Date Value 03/02/2025 141 06/01/2021 135 Chloride (mmol/L) Date Value 03/02/2025 106 06/01/2021 101 CO2 (mmol/L) Date Value 03/02/2025 27 06/01/2021 23 Creatinine (mg/dL) Date Value 03/02/2025 1.12 06/01/2021 1.11 BUN (mg/dL) Date Value 03/02/2025 11 06/01/2021 18 Anion Gap (mmol/L) Date Value 03/02/2025 8 06/01/2021 11 Calcium (mg/dL) Date Value 06/01/2021 9.7 Calcium, Total (mg/dL) Date Value 03/02/2025 9.8 Albumin (g/dL) Date Value 03/02/2025 3.7 (L) Bilirubin, Total (mg/dL) Date Value 03/02/2025 0.3 Bilirubin, Direct (mg/dL) Date Value 03/02/2025 0.1 Alkaline Phosphatase (U/L) Date Value 03/02/2025 119 AST (U/L) Date Value 03/02/2025 42 (H) ALT (U/L) Date Value 03/02/2025 28 Protein, Total (g/dL) Date Value 03/02/2025 6.8 MELD 3.0: 9 at 03/02/2025 2:05 PM MELD-Na: 8 at 03/02/2025 2:05 PM Calculated from: Serum Creatinine: 1.12 mg/dL at 03/02/2025 2:05 PM Serum Sodium: 141 mmol/L (Using max of 137 mmol/L) at 03/02/2025 2:05 PM Total Bilirubin: 0.3 mg/dL (Using min of 1 mg/dL) at 03/02/2025 2:05 PM Serum Albumin: 3.7 g/dL (Using max of 3.5 g/dL) at 03/02/2025 2:05 PM INR(ratio): 1.1 at 03/02/2025 2:05 PM Age at listing (hypothetical): 74 years Sex: Female at 03/02/2025 2:05 PM Imaging: Assessment IMPRESSION Angeli Ramirez Case is a 74 year old female is here on follow up for fatty liver and cirrhosis seen on imaging . Pmhx includes arthritis, CKD, fibromyalgia, gout, HTN, T2DM, IBS. Serological evaluation was unremarkable for CLD. If cirrhotic likely due to MASH given he metabolic risk factors. Will obtain higher quality imaging (MRI) for further evaluation of liver morphology and HCC Screening. Of note, she does not have an allergy to contrast used for MRI, but she is allergic to Iodine/ CT contrast. Will discuss with radiology FIB-4 Calculation: 4.71 at 03/02/2025 2:05 PM Calculated from: SGOT/AST: 42 U/L at 03/02/2025 2:05 PM SGPT/ALT: 28 U/L at 03/02/2025 2:05 PM Platelets: 123 k/uL at 03/02/2025 2:05 PM Age: 74 years PLAN - MRI PANC/KANDI WO/W IVCON - MRI 3D POST PROCESSING - IV CONTRAST (RADIOLOGY PROCEDURE) - NOT ON MAR Follow up pending test results . Please contact sooner if you have questions or problems develop. Blanca King APRN.CNP Addendum on 05/30: patient contacted office to update that she DOES have an allergy to MRI contrast. Premedication for test ordered, instructions will be given to patient on how to take the medication. AMINAH Burch APRN.CNP May 27, 2025 11:11 AM documented in this encounter [facility] 05-12-2025 Telephone encounter Note The patient has been identified by name and date of : Yes Caregiver verified no other encounters exist for this prescription request: Yes Caregiver confirmed with patient/requestor that no other refills are due, in the near future, with this provider at this time: Yes The last office visit in the department: 05/04/2025 Does the patient have a future office visit with this provider/department: Yes 08/04/2025 Requested Prescriptions Pending Prescriptions Disp Refills omeprazole (PRILOSEC) 40 mg capsule 90 capsule 3 Sig: Take 1 capsule by mouth once daily. Salma Rodarte RN May 12, 2025 4:54 PM [facility] 05-12-2025 Miscellaneous Notes The patient has been identified by name and date of : Yes Caregiver verified no other encounters exist for this prescription request: Yes Caregiver confirmed with patient/requestor that no other refills are due, in the near future, with this provider at this time: Yes The last office visit in the department: 05/04/2025 Does the patient have a future office visit with this provider/department: Yes 08/04/2025 Requested Prescriptions Pending Prescriptions Disp Refills omeprazole (PRILOSEC) 40 mg capsule 90 capsule 3 Sig: Take 1 capsule by mouth once daily. Salma Rodarte RN May 12, 2025 4:54 PM documented in this encounter [facility] 05-06-2025 Telephone encounter Note This encounter was opened in error. [facility] 05-06-2025 Miscellaneous Notes This encounter was opened in error. documented in this encounter [facility] 05-06-2025 Note [facility] 05-04-2025 Instructions Caridad Chapman APRN.CNP - 05/04/2025 1:51 PM EDT Start the trazodone 50mg at HS as needed for sleep. Please try to take this before you take the clonazepam. Only take the clonazepam IF the trazodone is ineffective Schedule your urology consult Follow up with Gastro as scheduled documented in this encounter [facility] 05-04-2025 History of Present illness Narrative This is a 74 year old female who presents today with: Opal Ramirez Case is a 74-year-old female with a history of diabetes, CKD, and insomnia, presenting for a 3-month follow-up, with additional concerns about anemia, liver cirrhosis, and urinary frequency. Recent telephone encounter regarding reason for todays visit: I wasn't sure if you were aware of what the Gastro BOILER ROOM OPERATOR said regarding pt's positive occult stool. I didn't see where pt had followed up and pt has an appt with Caridad next week. Pamela Pichardo RN BR 04/27/25 8:01 PM Note Demetra Rosalba put pt on Ferrous sulfate at appt on 02/01/25 and gave enough for 3 mons. Pt has had CBC and iron studies completed on 03/02/25 here at the clinic ordered by gastroenterology dept Blanca King CNP. Under labs, pt has a scanned in repeat CBC from [facility] from 04/07/25. Does pt need to continue on the iron? Also please see below: In OV note from 03/02/25 with Gastroenterology BOILER ROOM OPERATOR Blanca King documented that pt had a + occult stool test. Blanca documented in her impression the following: Advised to follow up with Dr. Pearce regarding + stool occult; will assess CBC today. Denies findings BRB in stool And in instructions, Discuss stool specimen results with Dr. Pearce Pt has follow up appt with Blanca King on 05/28/25. Pt has follow up appt with Caridad Chapman on 05/04/25. HISTORY OF PRESENT ILLNESS: Anemia: - Recent episodes of diarrhea, upset stomach, and melena. - Stool test ordered; results not yet received. - Iron supplement with vitamin C prescribed but discontinued due to constipation, intolerance. Mentioned she may possibly need iron transfusions, she says they have talked to her about that but Dr Salazar didn't feel it necessary at this time - Recent hemoglobin levels improved, 04/07 external lab noted 10.9 - Reports fatigue and tiredness. Hemoglobin (g/dL) Date Value 03/02/2025 9.8 01/06/2025 8.9 11/03/2024 8.9 02/27/2021 12.1 04/06/2020 12.7 11/24/2019 12.8 Liver Cirrhosis: - Recently diagnosed -Ultrasound revealed a dark spot in the upper right corner of the liver, described as a fatty liver. - Seen by Janel King at [facility]; diagnosed with a nonalcoholic cirrhosis. - Extensive blood work performed. She is just confused because she says no one has told her results of lab work and stool testing. - Scheduled for a FibroScan on May 27 and a follow up with Janel King that day -She mentions they may want to biopsy her liver based on results of the scan Diabetes: - A1c decreased by almost 2 points over the last 3 months. - Taking Humalog with every meal and Basaglar after breakfast and before bedtime. - Monitoring diet, but struggles with nighttime snacking. - Recent insulin dose increase in February. Hemoglobin A1C (%) Date Value 04/05/2025 7.6 06/01/2021 7.9 Hemoglobin A1C (POCT) (%) Date Value 07/30/2023 7.1 Urinary Frequency: - history of UTI (treated in January for uncomplicated) - Nocturia 2-3 times per night, causing sleep disturbances. - Reports urgency and occasional incontinence with sneezing or coughing. - Feels bladder is not fully emptying -requests her urine be checked even without reports of burning, fevers, new back or flank pain Insomnia: - Difficulty sleeping due to nocturia. - Taking clonazepam at bedtime - Previous use of Ambien discontinued due to adverse effects - Recent sleep study performed; awaiting results and CPAP machine delivery. Unable to view any results in computer but did find that it appears she had it at [facility] on 03/22. CKD: - Stage 3A CKD, patient stated she was a stage IV and wondered if she should see a specialist PAST MEDICAL HISTORY: PAST MEDICAL HISTORY Diagnosis Date Advance care planning 04/23/2022 daughter Rebecca Case is medical POA per patient Allergic rhinitis, cause unspecified Allergic rhinitis Arthritis Benign hypertensive heart disease without heart failure BPPV (benign paroxysmal positional vertigo) Chronic kidney disease (CKD) stage G3a/A2, moderately decreased glomerular filtration rate (GFR) between 45-59 mL/min/1.73 square meter and albuminuria creatinine ratio between 30-299 mg/g (HCC) Diverticulitis Esophageal reflux Fatty liver Fatty liver Fibromyalgia Gastric polyp 07/04/2014 Dr. Spence, needs repeat EGD in 01/01 Gout right great toe Hernia of other specified sites of abdominal cavity without mention of obstruction or gangrene HIATAL Hypertension IBS (irritable bowel syndrome) Irritable bowel syndrome Leiomyoma of uterus Other and unspecified hyperlipidemia PONV (postoperative nausea and vomiting) 03/11/2018 Renal calculi Snoring Type II or unspecified type diabetes mellitus without mention of complication, not stated as uncontrolled Unspecified hemorrhoids without mention of complication Hemorrhoids Unspecified hypothyroidism PAST SURGICAL HISTORY Procedure Laterality Date APPENDECTOMY APPENDECTOMY COLONOSCOPY FLX DX W/COLLJ SPEC WHEN PFRMD 07/04/2014 Colonoscopy, Dr. Spence COLONOSCOPY SCREENING 07/04/2023 repeat 5 years EGD W/O [facility] SPEC VARICIES INJ 07/04/2023 repeat 5 years ESOPHAGOGASTRODUODENOSCOPY TRANSORAL DIAGNOSTIC 07/04/2014 EGD, Dr. Spence ESOPHAGOGASTRODUODENOSCOPY TRANSORAL DIAGNOSTIC 05/29/2015 EGD LAPAROSCOPIC CHOLECYSTECTOMY 06/04/2023 lap tosha with grams Dr Muro LAPS ABD PRTM&OMENTUM DX W/WO SPEC BR/WA SPX 1989 Laparoscopy and scar tissue seen LIG/TRNSXJ FLP TUBE ABDL/VAG APPR UNI/BI Tubal ligation PAST SURGICAL HISTORY OF CARPEL TUNNEL/BILATERAL PAST SURGICAL HISTORY OF 1970 exploratory lap and left salpingectomy for bad infection POLYPECTOMY SNARE STIFF WIRE 07/04/2014 gastric TONSILLECTOMY HX TONSILLECTOMY PRIMARY/SECONDARY <AGE 12 Tonsillectomy VAGINAL HYSTERECTOMY VAGINAL HYSTERECTOMY UTERUS 250 GM/< 03/2018 Hysterectomy, vaginal ALLERGIES Crestor [Rosuvastatin Calcium], Niacin, Erythromycin, Iodine, Latex, Lescol [Fluvastatin Sodium], Lipitor [Atorvastatin Calcium], Naprosyn [Naproxen], Pravastatin, Xghhzex-Gow-Tfe Reductase Inhibitors, Sulfa (Sulfonamide Antibiotics), Trulicity [Dulaglutide], Vibramycin [Doxycycline Calcium], Vioxx [Rofecoxib], and Zocor [Simvastatin] MEDICATIONS Current Outpatient Medications Medication Sig citalopram hydrobromide (CELEXA) 10 mg tablet Take 1 tablet by mouth once daily. levothyroxine (SYNTHROID) 125 mcg tablet Take on empty stomach. For Thyroid. Take 1 tablet on Friday, Friday, , Friday, Friday. Take a half tablet on Friday and Friday. insulin lispro (HUMALOG KWIKPEN INSULIN) 100 unit/mL Inject 16 units with breakfast, 16 units with lunch, and 16 units with dinner + sliding scale insulin (1 unit for every 50 >150 pts). Gets through [employer]. metoprolol tartrate, short acting, (LOPRESSOR) 100 mg tablet Take 1 tablet by mouth two times a day. insulin glargine (BASAGLAR KWIKPEN U-100 INSULIN) 100 unit/mL (3 mL) Inject 56 Units subcutaneously two times a day. Blood-Glucose Meter Use to check blood sugar daily blood sugar diagnostic (BLOOD GLUCOSE TEST) test strip Use to check blood sugar four times daily Lancets Use to check blood sugar four times daily alcohol swabs (ALCOHOL PADS) Test Four times a day. Insulin Dep? Yes E11.9 DM 2 and E10.9 DM 1 enalapril (VASOTEC) 20 mg tablet Take 1 tablet by mouth two times a day. ezetimibe (ZETIA) 10 mg tablet Take 1 tablet by mouth once daily. For cholesterol Blood-Glucose Meter,Continuous (FREESTYLE BETSEY 3 READER) [facility] [place] to monitor blood glucose continuously Blood-Glucose Sensor (FREESTYLE BETSEY 3 SENSOR) magdi Apply new sensor to back of upper arm every 14 days omeprazole (PRILOSEC) 40 mg capsule Take 1 capsule by mouth once daily. flash glucose sensor (FREESTYLE BETSEY 14 DAY SENSOR) kit Type 2 diabetes uncontrolled, insulin dependent, Apply sensor to back of arm to check blood sugars as directed. Change sensor every 2 weeks and rotate arms. omega-3 DHA-EPA (FISH OIL) 1,200 (144-216) mg capsule Take 1 capsule by mouth once daily. Insulin [place], Disposable, (BD ULTRA-FINE PATRICIO PEN NEEDLE) 32 gauge x 5/32 Use 4 pen needles daily with Basaglar and Humalog flash glucose scanning reader (FREESTYLE BETSEY 14 DAY READER) Use to check blood sugar as directed. cholecalciferol (VITAMIN D3) 50 mcg (2,000 unit) tablet Take one tablet by mouth once daily Friday through Friday. traZODone (DESYREL) 50 mg tablet Take 1 tablet by mouth at bedtime as needed. clonazePAM (KLONOPIN) 0.5 mg tablet Take 1 tablet by mouth at bedtime as needed for up to 15 days. Only if trazodone is ineffective No current facility-administered medications for this visit. FAMILY HISTORY Problem Relation Age of Onset Hypertension Mother other (DEMENTIA) Mother onset in her 70's Tremor Mother ? Parkinson's Diabetes Father Hypertension Father Lipids Father Anesthesia Problems Sister at 19 yo cardiac arrest during appendectomy, did not survive, 1960's Cancer Maternal Grandmother gallbladder Social History Tobacco Use Smoking status: Never Smokeless tobacco: Never Vaping Use Vaping status: Never Used Substance Use Topics Alcohol use: No Drug use: No REVIEW OF SYSTEMS Constitutional: (+) fatigue Head: (+) headaches Genitourinary: (+) nocturia, (+) urinary frequency, (+) urinary urgency, (+) stress urinary incontinence, (-) dysuria Neurological: (+) imbalance Psychiatric: (+) insomnia See HPI EXAM: BP 118/76 (BP Site: Left Arm, BP Position: Sitting, BP Cuff Size: Regular Adult) Pulse 60 Wt 78.8 kg (173 lb 12.8 oz) SpO2 95% BMI 31.79 kg/m PHYSICAL EXAM: General Appearance: Well appearing, alert, in no acute distress, well-hydrated, well nourished.. has some forgetfulness and confusion over her health conditions and follow ups. Skin: Skin color is pale Lungs: Lungs clear to auscultation. No wheezing, rhonchi, rales.. Heart: RRR without murmur, gallop, or rubs. No ectopy. Extremities: No deformities, edema, skin discoloration, clubbing or cyanosis. Good capillary refill. . ASSESSMENT/PLAN 1. Cirrhosis of liver without ascites, unspecified hepatic cirrhosis type (HCC) (K74.60) - Recent ultrasound revealed findings consistent with non-alcoholic cirrhosis. - Follow-up with Janel King on 05/27, including a scheduled FibroScan. - Advised to limit Tylenol intake to 2000 mg or less per day due to liver condition, per Dr King OV note 2. Iron 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, unspecified iron 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 type (D50.9) - Hemoglobin improved to 10.9 g/dL on 04/07. - Discontinued oral iron and vitamin C due to gastrointestinal side effects. - Will monitor hemoglobin levels as well, CBC ordered to have done with next A1C 3. Type 2 diabetes mellitus with stage 3a chronic kidney disease, with long-term current use of insulin (HCC) (E11.22) - Hemoglobin A1c decreased by almost 2 points over the last 3 months. - Current regimen includes Humalog with meals and Basaglar after breakfast and before bedtime. - Advised to avoid NSAIDs such as ibuprofen, Motrin, and Aleve to protect renal function. - Scheduled follow-up A1c due around 07/06 4. Chronic insomnia (F51.04) - Currently on clonazepam; discussed risks of balance issues and potential falls.Not meant for senior care if can be prevented - Initiated trazodone for sleep; provided 15 tablets of clonazepam for backup use if trazodone is ineffective. - Advised not to take clonazepam and trazodone together routinely. - Will follow up on sleep study results and CPAP, staff to obtain results from 03/22 [facility] sleep study 5. Urinary frequency (R35.0) 6. Stress incontinence (N39.3) 7. Nocturia (R35.1) - Experiencing urinary urgency, frequency, and occasional stress incontinence. - Ordered urinalysis to rule out infection which was only +for ketones - Discussed referral to urology for further evaluation and management, she was not interested in a medication to assist with the urge and frequency at this time Discussed treatment plan and patient voices understanding. Patient's questions answered appropriately. Medications and potential side effects were discussed and patient voices understanding. Return to the office 3 months or as needed for worsening/no improvement. Also to schedule next 3 month after that to get on Dr Pearce's schedule as she is complex and has had several changes. Caridad Chapman APRN.WARP DYEING TENDER Recording using [employer] software for draft documentation of the visit was discussed with the patient/authorized bilingual inside sales representative; all questions welcomed and answered. Patient/authorized bilingual inside sales representative agreed to proceed documented in this encounter [facility] 05-04-2025 Note [facility] 04-28-2025 Telephone encounter Note Spoke with pt states has appointment coming up on the with Caridad will talk to her about these things then. [facility] 04-28-2025 Miscellaneous Notes Spoke with pt states has appointment coming up on the with Caridad will talk to her about these things then. Patient needs appt for these to be reviewed and plan to be made Mariano Pearce DO Demetra Branchutzman put pt on Ferrous sulfate at appt on 02/01/25 and gave enough for 3 mons. Pt has had CBC and iron studies completed on 03/02/25 here at the clinic ordered by gastroenterology dept Blanca King WARP DYEING TENDER. Under labs, pt has a scanned in repeat CBC from [facility] from 04/07/25. Does pt need to continue on the iron? Also please see below: In OV note from 03/02/25 with Gastroenterology BOILER ROOM OPERATOR Blanca King documented that pt had a + occult stool test. Blanca documented in her impression the following: Advised to follow up with Dr. Pearce regarding + stool occult; will assess CBC today. Denies findings BRB in stool And in instructions, Discuss stool specimen results with Dr. Pearce Pt has follow up appt with Blanca King on 05/28/25. Pt has follow up appt with Caridad Chapman on 05/04/25. documented in this encounter [facility] 04-27-2025 Telephone encounter Note Patient needs appt for these to be reviewed and plan to be made Mariano Pearce DO [facility] 04-27-2025 Telephone encounter Note Demetra Navarrete put pt on Ferrous sulfate at appt on 02/01/25 and gave enough for 3 mons. Pt has had CBC and iron studies completed on 03/02/25 here at the clinic ordered by gastroenterology dept Blanca King WARP DYEING TENDER. Under labs, pt has a scanned in repeat CBC from [facility] from 04/07/25. Does pt need to continue on the iron? Also please see below: In OV note from 03/02/25 with Gastroenterology BOILER ROOM OPERATOR Blanca King documented that pt had a + occult stool test. Blanca documented in her impression the following: Advised to follow up with Dr. Pearce regarding + stool occult; will assess CBC today. Denies findings BRB in stool And in instructions, Discuss stool specimen results with Dr. Perace Pt has follow up appt with Blanca King on 05/28/25. Pt has follow up appt with Caridad Chapman on 05/04/25. [facility] 04-22-2025 Telephone encounter Note [employer] [employer] is calling Mariano Pearce DO today to advise to keep an eye out for a RX request for the freestyle betsey patient requested from them Advised them to have patient call us to advise she is requesting this to be ordered Patient has been identified by name and birthdate. Duration of symptoms: N/A FYI Call patient at: at home [phone] (home) [phone] (cell) Was an appointment scheduled: No Rosalva Lin [facility] 04-22-2025 Miscellaneous Notes Specialty medical equipment is calling Mariano Pearce DO today to advise to keep an eye out for a RX request for the freestyle betsey patient requested from them Advised them to have patient call us to advise she is requesting this to be ordered Patient has been identified by name and birthdate. Duration of symptoms: N/A FYI Call patient at: at home [phone] (home) [phone] (cell) Was an appointment scheduled: No Rosalva Dunne Medc documented in this encounter [facility] 04-14-2025 Telephone encounter Note The patient has been identified by name and date of : Yes Caregiver verified no other encounters exist for this prescription request: Yes Caregiver confirmed with patient/requestor that no other refills are due, in the near future, with this provider at this time: Yes The last office visit in the department: 02/01/2025 Does the patient have a future office visit with this provider/department: 05/04/2025 Requested Prescriptions Pending Prescriptions Disp Refills citalopram hydrobromide (CELEXA) 10 mg tablet 30 tablet 2 Sig: Take 1 tablet by mouth once daily. levothyroxine (SYNTHROID) 125 mcg tablet 30 tablet 2 Sig: Take on empty stomach. For Thyroid. Take 1 tablet on Friday, Friday, , Friday, Friday. Take a half tablet on Friday and Friday. Zita Vaughan RN April 14, 2025 1:35 PM [facility] 04-14-2025 Miscellaneous Notes The patient has been identified by name and date of : Yes Caregiver verified no other encounters exist for this prescription request: Yes Caregiver confirmed with patient/requestor that no other refills are due, in the near future, with this provider at this time: Yes The last office visit in the department: 02/01/2025 Does the patient have a future office visit with this provider/department: 05/04/2025 Requested Prescriptions Pending Prescriptions Disp Refills citalopram hydrobromide (CELEXA) 10 mg tablet 30 tablet 2 Sig: Take 1 tablet by mouth once daily. levothyroxine (SYNTHROID) 125 mcg tablet 30 tablet 2 Sig: Take on empty stomach. For Thyroid. Take 1 tablet on Friday, Friday, , Friday, Friday. Take a half tablet on Friday and Friday. Zita Vaughan RN April 14, 2025 1:35 PM documented in this encounter [facility] 04-04-2025 Telephone encounter Note PDMP website checked and validated. All prescriptions have been APPROPRIATELY filled. No suspicious activity was identified. 04/04/2025 by Naya Ruvalcaba APRN.WARP DYEING TENDER The following approved medication requests have been transmitted electronically. Requested Prescriptions Signed Prescriptions Disp Refills clonazePAM (KLONOPIN) 0.5 mg tablet 30 tablet 0 Sig: Take 1 tablet by mouth at bedtime as needed for up to 30 days. Authorizing Provider: NAYA RUVALCABA APRN.CNP [facility] 04-04-2025 Miscellaneous Notes PDMP website checked and validated. All prescriptions have been APPROPRIATELY filled. No suspicious activity was identified. 04/04/2025 by Naya Ruvalcaba APRN.CNP The following approved medication requests have been transmitted electronically. Requested Prescriptions Signed Prescriptions Disp Refills clonazePAM (KLONOPIN) 0.5 mg tablet 30 tablet 0 Sig: Take 1 tablet by mouth at bedtime as needed for up to 30 days. Authorizing Provider: NAYA RUVALCABA APRN.CNP The patient has been identified by name and date of : Yes Caregiver verified no other encounters exist for this prescription request: Yes Caregiver confirmed with patient/requestor that no other refills are due, in the near future, with this provider at this time: Yes The last office visit in the department: 02/01/2025 Does the patient have a future office visit with this provider/department: Yes 05/04/2025 Requested Prescriptions Pending Prescriptions Disp Refills clonazePAM (KLONOPIN) 0.5 mg tablet 30 tablet 0 Sig: Take 1 tablet by mouth at bedtime as needed for up to 30 days. Marisol Ramirez LPN April 04, 2025 11:04 AM documented in this encounter [facility] 04-04-2025 Telephone encounter Note The patient has been identified by name and date of : Yes Caregiver verified no other encounters exist for this prescription request: Yes Caregiver confirmed with patient/requestor that no other refills are due, in the near future, with this provider at this time: Yes The last office visit in the department: 02/01/2025 Does the patient have a future office visit with this provider/department: Yes 05/04/2025 Requested Prescriptions Pending Prescriptions Disp Refills clonazePAM (KLONOPIN) 0.5 mg tablet 30 tablet 0 Sig: Take 1 tablet by mouth at bedtime as needed for up to 30 days. Marisol Ramirez LPN April 04, 2025 11:04 AM [facility] 03-28-2025 Telephone encounter Note Returned call to patient. She states she received a letter from [employer], and they are asking her to send back her sensors that they had sent her. She had the letter and read it: - Letter is a reminder to return the products referenced below for further investigation. At this time our records indicate that we have not yet received your return. She confirms that she did send back a sensor that didn't work properly --> sent it back 2-3 weeks ago. Sent it through [employer]. She is concerned that they want her 3 new sensors and she won't have any sensors left to use. I informed her they are likely looking to receive the OLD sensors that had been faulty and required replacements. I advised her to contact Ramesh at the phone number listed, inform the bilingual inside sales representative that a sensor was recently sent back last month, let them know she has already discarded the other faulty sensors and to make sure to send back any future faulty sensors. She appreciated the call and agreed to call Ramesh tomorrow. Matt Arnold, PharmD, BCPS (covering for Greta Watts) Primary Care Clinical Pharmacist [facility] 03-28-2025 Miscellaneous Notes Returned call to patient. She states she received a letter from [employer], and they are asking her to send back her sensors that they had sent her. She had the letter and read it: - Letter is a reminder to return the products referenced below for further investigation. At this time our records indicate that we have not yet received your return. She confirms that she did send back a sensor that didn't work properly --> sent it back 2-3 weeks ago. Sent it through [employer]. She is concerned that they want her 3 new sensors and she won't have any sensors left to use. I informed her they are likely looking to receive the OLD sensors that had been faulty and required replacements. I advised her to contact Ramesh at the phone number listed, inform the bilingual inside sales representative that a sensor was recently sent back last month, let them know she has already discarded the other faulty sensors and to make sure to send back any future faulty sensors. She appreciated the call and agreed to call Ramesh tomorrow. Matt Arnold, PharmD, BCPS (covering for Greta Watts) Primary Care Clinical Pharmacist Patient calls and is requesting to speak with pharmacist. Patient reports that she just received a letter in the mail where she gets her insulin from that states that she is supposed to send her Betsey sensors back. Patient unsure of what to do. Please review and advise, Salma Rodarte RN documented in this encounter [facility] 03-28-2025 Telephone encounter Note Patient calls and is requesting to speak with pharmacist. Patient reports that she just received a letter in the mail where she gets her insulin from that states that she is supposed to send her Betsey sensors back. Patient unsure of what to do. Please review and advise, Salma Rodarte RN [facility] 03-17-2025 Telephone encounter Note Phoned patient went over results from [facility] with understanding. [facility] 03-17-2025 Miscellaneous Notes Phoned patient went over results from [facility] with understanding. I am pleased to report your mammogram is normal. Because your breast tissue is dense, you are eligible for supplemental imaging with whole breast ultrasound. This test improves breast cancer detection and may result in the need for additional testing (biopsy, six-month follow up imaging or both). If you want to have this supplemental screening test, please check with your insurance to see if it is covered and what your qxn-ly-mpolsy expense will be. Please reach out through [employer] or by phone if you would like an order placed or if you would like to schedule an appointment to discuss further with an available provider. Whole breast ultrasound does not replace annual mammograms; this test is in addition to regular mammograms which are the most important way to screen for breast cancer. Keaton Shannon PA-C documented in this encounter [facility] 03-15-2025 Telephone encounter Note I am pleased to report your mammogram is normal. Because your breast tissue is dense, you are eligible for supplemental imaging with whole breast ultrasound. This test improves breast cancer detection and may result in the need for additional testing (biopsy, six-month follow up imaging or both). If you want to have this supplemental screening test, please check with your insurance to see if it is covered and what your quw-ab-jdrkqj expense will be. Please reach out through [employer] or by phone if you would like an order placed or if you would like to schedule an appointment to discuss further with an available provider. Whole breast ultrasound does not replace annual mammograms; this test is in addition to regular mammograms which are the most important way to screen for breast cancer. Keaton Shannon PA-C [facility] Work Phone: 03-14-2025 History of Present illness Narrative Radiology Service Progress Note PATIENT NAME: Angeli Rees DATE OF SERVICE: March 14, 2025 TIME: 1:00 PM PATIENT IDENTITY VERIFICATION COMPLETED USING TWO (2) IDENTIFIERS: Name and Date of confirmed by patient verbally. FALL SCREENING: Has the patient had 2 falls in the last year or 1 fall with injury or currently using an Ambulatory Assistive Device (Walker, Cane, Wheelchair, Crutches, etc.)? No PATIENT GENDER DATA: Assigned female at . status: : No status: NO. PATIENT RELEVANT IMPLANT DATA REVIEWED: Not Applicable PATIENT PRESENTS WITH AN IMPLANTABLE OR ATTACHED CLAIM CLINICIAN: No RADIOLOGY DEPARTMENT: Mammography PERIPHERAL IV DATA: Not applicable SIGNED BY: Elsy Sorenson March 14, 2025 1:00 PM documented in this encounter [facility] 03-14-2025 Note [facility] 03-10-2025 Note [facility] 03-07-2025 Note [facility] 03-07-2025 History of Present illness Narrative Sleep Study Check-In Documentation Date: March 07, 2025 Name: Angeli Rees Comments: HST was returned in working order without all sleep questionnaires Patient was not reached. A voicemail was left with patient to call back to complete questionnaires. Stephany Summers Nomad # [id number], date shipped out 03-02-25 [employer] only Tracking mailout: [id number] Tracking return: [phone] [id number] February 10, 2025 Standing PSG Orders signed in the last 90 days None Future PSG Orders signed in the last 90 days Ordered Auth. provider HOME SLEEP APNEA TEST (HSAT) [[id number]] 02/01/25 Demetra Navarrete APRN.WARP DYEING TENDER Assoc. diagnoses: Chronic insomnia [F51.04], Snoring [R06.83], Drooling [K11.7], Daytime hypersomnia [G47.10] Q: Indications: A: Obstructive sleep apnea Q: STOP-BANG conditions - Select All That Apply: A: AGE > 50 A2: high blood PRESSURE A3: SNORING that is loud or disruptive A4: TIREDNESS, fatigue or sleepiness during the day A5: OBSERVED sleep apnea Q: Current use of supplemental oxygen during sleep period?: A: No All Prior Sleep Studies (past 365 days) 02/01/2025 13:36 Sleep Studies HOME SLEEP APNEA TEST (HSAT) HOME SLEEP APNEA TEST (HSAT) Order Status: Ordered, Future Expires: 02/01/26 BMI Readings from Last 2 Encounters: 02/01/25 : 32.48 kg/m 11/22/24 : 32.26 kg/m PAST MEDICAL HISTORY Diagnosis Date Advance care planning 04/23/2022 daughter Rebecca Rees is medical POA per patient Allergic rhinitis, cause unspecified Allergic rhinitis Arthritis Benign hypertensive heart disease without heart failure BPPV (benign paroxysmal positional vertigo) Chronic kidney disease (CKD) stage G3a/A2, moderately decreased glomerular filtration rate (GFR) between 45-59 mL/min/1.73 square meter and albuminuria creatinine ratio between 30-299 mg/g (HCC) Diverticulitis Esophageal reflux Fatty liver Fatty liver Fibromyalgia Gastric polyp 07/04/2014 Dr. Spence, needs repeat EGD in 01/01 Gout right great toe Hernia of other specified sites of abdominal cavity without mention of obstruction or gangrene HIATAL Hypertension IBS (irritable bowel syndrome) Irritable bowel syndrome Leiomyoma of uterus Other and unspecified hyperlipidemia PONV (postoperative nausea and vomiting) 03/11/2018 Renal calculi Snoring Type II or unspecified type diabetes mellitus without mention of complication, not stated as uncontrolled Unspecified hemorrhoids without mention of complication Hemorrhoids Unspecified hypothyroidism The medical record was reviewed to determine if the proposed sleep study conforms to the [facility] Practice Parameters for the Indications for Polysomnography and Related Procedures, or if the sleep study is indicated for other reasons. Indications for study: SALVATORE suspected without comorbid medical or sleep disorders Sleep study to be performed: Home Sleep Apnea Test (HSAT) Special instructions: None-follow laboratory protocol [facility] Staff Note: I have read the above protocol, edited as needed, and agree to the plan. Nik Edwards III, PhD 6:07 PM, 02/10/2025 February 10, 2025 An order has been received for Home Sleep Apnea Test (HSAT) from Demetra Hill [facility] B[facility] Staff. Visit prep complete. Comments :No The sleep study is scheduled for 03/03/2026. Insurance: Payor: [employer] MEDICARE / Plan: [employer] MEDADVANT[employer] HMO / Product Type: HMO / Payer/Plan Subscr Sex Relation Sub. Ins. ID Effective Group Num 1. MMO MEDICARE * ANGELI REES 1950 Female Self [id number] 11/17/18 [id number] [address] Stephany Summers documented in this encounter [facility] 03-02-2025 Telephone encounter Note PDMP website checked and validated. All prescriptions have been APPROPRIATELY filled. No suspicious activity was identified. 03/02/2025 by Naya Ruvalcaba APRN.CNP The following approved medication requests have been transmitted electronically. Requested Prescriptions Signed Prescriptions Disp Refills clonazePAM (KLONOPIN) 0.5 mg tablet 30 tablet 0 Sig: Take 1 tablet by mouth at bedtime as needed for up to 30 days. Authorizing Provider: NAYA RUVALCABA APRN.CNP [facility] 03-02-2025 Miscellaneous Notes PDMP website checked and validated. All prescriptions have been APPROPRIATELY filled. No suspicious activity was identified. 03/02/2025 by Naya Ruvalcaba APRN.CNP The following approved medication requests have been transmitted electronically. Requested Prescriptions Signed Prescriptions Disp Refills clonazePAM (KLONOPIN) 0.5 mg tablet 30 tablet 0 Sig: Take 1 tablet by mouth at bedtime as needed for up to 30 days. Authorizing Provider: NAYA RUVALCABA APRN.CNP The patient has been identified by name and date of : Yes Caregiver verified no other encounters exist for this prescription request: Yes Caregiver confirmed with patient/requestor that no other refills are due, in the near future, with this provider at this time: Yes The last office visit in the department: 02/01/2025 Does the patient have a future office visit with this provider/department: Yes 05/04/2025 Requested Prescriptions Pending Prescriptions Disp Refills clonazePAM (KLONOPIN) 0.5 mg tablet 30 tablet 0 Sig: Take 1 tablet by mouth at bedtime as needed for up to 30 days. Salma Rodarte RN March 01, 2025 10:20 AM documented in this encounter [facility] 03-02-2025 Note HNO ID: [id number] Author: ?, ?, ? Service: ? Author Type: ? Type: Progress Notes Filed: 03/07/2025 10:14 Note Text: Nomad # [id number], date shipped out 03-02-25 Fed Ex only Tracking mailout: [id number] Tracking return: [id number] [id number] [facility] 03-02-2025 Instructions Blanca King APRN.CNP - 03/02/2025 1:14 PM EDT Blood work Schedule fibroscan (must be fasting for 3 hours prior to exam) Discuss stool specimen results with Dr. Pearce Follow up in 6 months documented in this encounter [facility] 03-02-2025 History of Present illness Narrative NAME: Angeli Ramirez Case AGE: [age] year old Patient is referred in consultation by Mariano Pearce for an opinion regarding cirrhosis and fatty liver and my final recommendations will be communicated back to the requesting physician by way of shared Medical Record. PRESENTING COMPLAINT & HISTORY Angeli Ramirez Case is a 74 year old year old female who presents with fatty liver and cirrhosis seen on imaging . Pmhx includes arthritis, CKD, fibromyalgia, gout, HTN, T2DM, IBS She is doing well overall Here today with her daughter Had been dx previously with fatty liver during evaluation for dark tarry stools/ GI bleed RUQ US completed for his history of fatty liver noted possible cirrhosis Recent stool occult + Pt currently denies jaundice, confusion/disorientation, ascites, hematemesis, dark/tarry stools, claudia colored stools, or dark urine. All other systems reviewed and are negative Metabolic Syndrome Risk factors: /5 1) Diabetes/ Abnormal FBS >100mg/dL: yes 2) Hypertension : yes 3)Triglycerides more then 150 : yes 4) HDL (<50 female and <40 male): no 5) Central obesity ( Waist >102 men and >88 female) - yes Body mass index is 32.38 kg/(m^2) Risk Factors for Liver Disease: 1. Blood transfusions before 1991: No 2. IVDA: No 3. Intranasal coccaine use: No 4. Tattoos: No 5. Service: No 6. High risk sexual behavior: No 7. Alcohol: No 8. Obesity: yes 9. Hyperlipidemia: Yes 10. Prolonged exposure to hepatotoxic meds: No 11. Other autoimmune disorders No RUQ US 11/26/24 IMPRESSION: Cirrhotic liver morphology. No hepatic lesion. Splenomegaly. PAST SURGICAL HISTORY Procedure Laterality Date APPENDECTOMY APPENDECTOMY COLONOSCOPY FLX DX W/COLLJ SPEC WHEN PFRMD 07/04/2014 Colonoscopy, Dr. Spence COLONOSCOPY SCREENING 07/04/2023 repeat 5 years EGD W/O BRSH SPEC VARICIES INJ 07/04/2023 repeat 5 years ESOPHAGOGASTRODUODENOSCOPY TRANSORAL DIAGNOSTIC 07/04/2014 EGD, Dr. Spence ESOPHAGOGASTRODUODENOSCOPY TRANSORAL DIAGNOSTIC 05/29/2015 EGD LAPAROSCOPIC CHOLECYSTECTOMY 06/04/2023 lap tosah with grams Dr Muro LAPS ABD PRTM&OMENTUM DX W/WO SPEC BR/WA SPX 1989 Laparoscopy and scar tissue seen LIG/TRNSXJ FLP TUBE ABDL/VAG APPR UNI/BI Tubal ligation PAST SURGICAL HISTORY OF CARPEL TUNNEL/BILATERAL PAST SURGICAL HISTORY OF 1970 exploratory lap and left salpingectomy for bad infection POLYPECTOMY SNARE STIFF WIRE 07/04/2014 gastric TONSILLECTOMY HX TONSILLECTOMY PRIMARY/SECONDARY <AGE 13 Tonsillectomy VAGINAL HYSTERECTOMY VAGINAL HYSTERECTOMY UTERUS 250 GM/< 03/2018 Hysterectomy, vaginal PAST MEDICAL HISTORY Diagnosis Date Advance care planning 04/23/2022 daughter Rebecca Case is medical POA per patient Allergic rhinitis, cause unspecified Allergic rhinitis Arthritis Benign hypertensive heart disease without heart failure BPPV (benign paroxysmal positional vertigo) Chronic kidney disease (CKD) stage G3a/A2, moderately decreased glomerular filtration rate (GFR) between 45-59 mL/min/1.73 square meter and albuminuria creatinine ratio between 30-299 mg/g (HCC) Diverticulitis Esophageal reflux Fatty liver Fatty liver Fibromyalgia Gastric polyp 07/04/2014 Dr. Spence, needs repeat EGD in 01/01 Gout right great toe Hernia of other specified sites of abdominal cavity without mention of obstruction or gangrene HIATAL Hypertension IBS (irritable bowel syndrome) Irritable bowel syndrome Leiomyoma of uterus Other and unspecified hyperlipidemia PONV (postoperative nausea and vomiting) 03/11/2018 Renal calculi Snoring Type II or unspecified type diabetes mellitus without mention of complication, not stated as uncontrolled Unspecified hemorrhoids without mention of complication Hemorrhoids Unspecified hypothyroidism Social History Tobacco Use Smoking status: Never Smokeless tobacco: Never Vaping Use Vaping status: Never Used Substance Use Topics Alcohol use: No Drug use: No Current Outpatient Medications Medication Sig Dispense Refill clonazePAM (KLONOPIN) 0.5 mg tablet Take 1 tablet by mouth at bedtime as needed for up to 30 days. 30 tablet 0 ferrous sulfate (SLOW FE) 137 mg (45 mg iron) TbER Take 1 tablet by mouth once daily. 30 tablet 2 Ascorbic Acid (VITAMIN C) 1,000 mg tablet Take 1 tablet by mouth once daily. 30 tablet 5 levothyroxine (SYNTHROID) 125 mcg tablet Take on empty stomach. For Thyroid. Take 1 tablet on Friday, Friday, , Friday, Friday. Take a half tablet on Friday and Friday. 30 tablet 2 citalopram hydrobromide (CELEXA) 10 mg tablet Take 1 tablet by mouth once daily. 30 tablet 2 metoprolol tartrate, short acting, (LOPRESSOR) 100 mg tablet Take 1 tablet by mouth two times a day. 180 tablet 3 insulin glargine (BASAGLAR KWIKPEN U-100 INSULIN) 100 unit/mL (3 mL) Inject 56 Units subcutaneously two times a day. 105 mL 3 Blood-Glucose Meter Use to check blood sugar daily 1 Each 0 blood sugar diagnostic (BLOOD GLUCOSE TEST) test strip Use to check blood sugar four times daily 400 Each 3 Lancets Use to check blood sugar four times daily 400 Each 3 insulin lispro (HUMALOG KWIKPEN INSULIN) 100 unit/mL Inject 14 units with breakfast, 14 units with lunch, and 14 units with dinner + sliding scale insulin (1 unit for every 50 >150 pts). Gets through [facility]. alcohol swabs (ALCOHOL PADS) Test Four times a day. Insulin Dep? Yes E11.9 DM 2 and E10.9 DM 1 200 Each 5 enalapril (VASOTEC) 20 mg tablet Take 1 tablet by mouth two times a day. 180 tablet 3 ezetimibe (ZETIA) 10 mg tablet Take 1 tablet by mouth once daily. For cholesterol 90 tablet 3 Blood-Glucose Meter,Continuous (FREESTYLE BETSEY 3 READER) [facility] [place] Use to monitor blood glucose continuously 1 Each 0 Blood-Glucose Sensor (FREESTYLE BETSEY 3 SENSOR) magdi Apply new sensor to back of upper arm every 14 days 6 Each 4 omeprazole (PRILOSEC) 40 mg capsule Take 1 capsule by mouth once daily. 90 capsule 3 flash glucose sensor (FREESTYLE BETSEY 14 DAY SENSOR) kit Type 2 diabetes uncontrolled, insulin dependent, Apply sensor to back of arm to check blood sugars as directed. Change sensor every 2 weeks and rotate arms. 6 Kit 2 omega-3 DHA-EPA (FISH OIL) 1,200 (144-216) mg capsule Take 1 capsule by mouth once daily. Insulin [place], Disposable, (BD ULTRA-FINE PATRICIO PEN NEEDLE) 32 gauge x 5/32 Use 4 pen needles daily with Basaglar and Humalog 360 Each 3 flash glucose scanning reader ([employer] BETSEY 14 DAY READER) Use to check blood sugar as directed. 1 Each 0 cholecalciferol (VITAMIN D3) 50 mcg (2,000 unit) tablet Take one tablet by mouth once daily Friday through Friday. No current facility-administered medications for this visit. ALLERGIES Allergen Reactions Crestor [Rosuvastat* Other: See Comments Legs achy Niacin Itching Erythromycin GI Upset Iodine Rash Latex reddness Lescol [Fluvastatin* GI Upset Lipitor [Atorvastat* Intolerance Muscle aching Naprosyn [Naproxen] uncertain Pravastatin Myalgia Arm pain Cfgpncr-Xvm-Phs Red* Intolerance Sulfa (Sulfonamide * Hives Trulicity [Dulaglut* GI Upset Vomiting, diarrhea Hospitalized Vibramycin [Doxycyc* GI Upset Vioxx [Rofecoxib] Swelling Zocor [Simvastatin] uncertain FAMILY HISTORY Problem Relation Age of Onset Hypertension Mother other (DEMENTIA) Mother onset in her 70's Tremor Mother ? Parkinson's Diabetes Father Hypertension Father Lipids Father Anesthesia Problems Sister at 19 yo cardiac arrest during appendectomy, did not survive, Cancer Maternal Grandmother gallbladder GENERAL ROS Colon polyps: Yes Colon cancer: No Other cancer: No Radiation / Chemotherapy: No Crohn's disease / Ulcerative colitis: No High cholesterol or triglycerides: No Ulcers: No Gallstones: No Hepatitis / jaundice: No Heart Disease: No Lung Disease: No Liver problems: No Thyroid disease: No Kidney stones: No Pancreatitis: No Diabetes: No Arthritis: No Rheumatic fever: No Gastrointestinal bleeding: Yes Depression or other mental illness: No Other personal illness: No GI SPECIFIC ROS Difficulty swallowing / foods sticking in throat: No Heartburn: No Hoarseness: No Chronic cough: No Regurgitation: No Chest pain: No Filling up quickly at meals: No Loss of appetite: No Nausea: No Vomiting: No Abdominal pain: No Recent change in bowel movements: No Bloody or black, bowel movements: No Constipation: No Diarrhea: No Loss of control of bowel movements: No Night sweats, fever, chills: No Thought or memory problems: No Fluid in abdomen (ascites): No Prominent leg swelling: No Vomiting blood: No Recent change in weight: No PHYSICAL EXAMINATION BP 179/56[pt feels nauseas. denies other symptoms[ Pulse 52 Temp (Src) 97 (Temporal) Ht 5' 2 (1.58m) Wt 177 lb 0.5 oz (80.3kg) SpO2 96% BMI 32.37 kg/(m^2). General Appearance: Well appearing, alert, in no acute distress, well-hydrated, well nourished. Eyes: conjunctiva and sclera normal Lungs:breathing comfortably Heart: regular rate Abdomen: not distended Neuro:alert, oriented x 3, pleasant and in no acute distress Recent Labs: Hemoglobin (g/dL) Date Value 01/06/2025 8.9 02/27/2021 12.1 Hematocrit (%) Date Value 01/06/2025 30.4 02/27/2021 37.3 WBC (k/uL) Date Value 01/06/2025 6.46 02/27/2021 8.33 Glucose (mg/dL) Date Value 11/03/2024 404 06/01/2021 263 Potassium (mmol/L) Date Value 11/03/2024 5.1 06/01/2021 4.8 Sodium (mmol/L) Date Value 11/03/2024 134 06/01/2021 135 Chloride (mmol/L) Date Value 11/03/2024 99 06/01/2021 101 CO2 (mmol/L) Date Value 11/03/2024 21 06/01/2021 23 Creatinine (mg/dL) Date Value 11/03/2024 1.19 06/01/2021 1.11 BUN (mg/dL) Date Value 11/03/2024 24 06/01/2021 18 Anion Gap (mmol/L) Date Value 11/03/2024 14 06/01/2021 11 Calcium (mg/dL) Date Value 06/01/2021 9.7 Calcium, Total (mg/dL) Date Value 11/03/2024 9.8 Albumin (g/dL) Date Value 11/03/2024 4.0 Bilirubin, Total (mg/dL) Date Value 11/03/2024 0.3 Alkaline Phosphatase (U/L) Date Value 11/03/2024 162 (H) AST (U/L) Date Value 11/03/2024 30 ALT (U/L) Date Value 11/03/2024 26 Protein, Total (g/dL) Date Value 11/03/2024 7.0 Computed MELD 3.0 unavailable. One or more values for this score either were not found within the given timeframe or did not fit some other criterion. Computed MELD-Na unavailable. One or more values for this score either were not found within the given timeframe or did not fit some other criterion. Assessment IMPRESSION Angeli Ramirez Case is a 74 year old year old female who presents with fatty liver and cirrhosis seen on imaging . Pmhx includes arthritis, CKD, fibromyalgia, gout, HTN, T2DM, IBS Will fill in serological evaluation for CLD. Discussed pathology of cirrhosis and further testing to establish cirrhosis dx. Discussed SLD and management as below. Advised to follow up with Dr. Pearce regarding + stool occult; will assess CBC today. Denies findings BRB in stool FIB-4 Calculation: 3.44 at 01/06/2025 1:45 PM Calculated from: SGOT/AST: 30 U/L at 11/03/2024 1:55 PM SGPT/ALT: 26 U/L at 11/03/2024 1:55 PM Platelets: 125 k/uL at 01/06/2025 1:45 PM Age: 74 years -Discussed liver disease and it's progression -Discussed personal risk factors for the development of liver disease/cirrhosis -Discussed sx of worsening liver disease -Discussed need to avoid alcohol intake -Discussed maintaining a healthy, Mediterranean diet - Weight loss goal of 10% -increased cardiovascular exercise with goal >45 minutes 5 days weekly -avoid liver detox cleanse/supplements -not to exceed 2,000 mg tylenol daily -PCP to assist with management/screening for any and all components of metabolic syndrome PLAN - AYESHA BLOOD - [id number] - IRON AND TIBC - FERRITIN - DDI VIBRATION CONTROLLED TRANSIENT ELASTOGRAPHY (VCTE) - HEPATIC FUNCTION PNL - PROTHROMBIN TIME - COMPLETE BLOOD COUNT AND DIFFERENTIAL - BASIC METABOLIC PANEL - ALPHA FETOPROTEIN - MITOCHONDRIAL M2 IGG SERUM - SMOOTH MUSCLE AB SCR - HEPATITIS A ANTIBODY, IGG - HEP REMOTE PANEL BL - LIVER FIBROSIS AND ACTIVITY Return to office in 6 months. Blanca King APRN.CNP During this patient visit I have spent approximately 25 minutes out of 30 in counseling regarding weight loss, exercise, cardiovascular risk reduction, treatment options, medications, and test results and coordinating care. Blanca King APRN.CNP March 02, 2025 12:31 PM documented in this encounter [facility] 03-02-2025 Note [facility] 03-01-2025 Telephone encounter Note The patient has been identified by name and date of : Yes Caregiver verified no other encounters exist for this prescription request: Yes Caregiver confirmed with patient/requestor that no other refills are due, in the near future, with this provider at this time: Yes The last office visit in the department: 02/01/2025 Does the patient have a future office visit with this provider/department: Yes 05/04/2025 Requested Prescriptions Pending Prescriptions Disp Refills clonazePAM (KLONOPIN) 0.5 mg tablet 30 tablet 0 Sig: Take 1 tablet by mouth at bedtime as needed for up to 30 days. Salma Rodarte RN March 01, 2025 10:20 AM [facility] 02-24-2025 Telephone encounter Note Pt informed. Pt reports her stool has been darker in color since she started iron. Trisha Marroquin MA [facility] 02-24-2025 Miscellaneous Notes Pt informed. Pt reports her stool has been darker in color since she started iron. Trisha Marroquin MA New order placed. Demetra Navarrete APRN.CNP Patient's stool sample, ordered by Leyda Navarrete CNP was obtained using incorrect kit. Patient needs new FOBT order placed so she can submit new sample. Please call patient once new order has been placed so she can cigar packer and picker kit. Michaela Bates RN documented in this encounter [facility] 02-24-2025 Telephone encounter Note New order placed. Demetra Navarrete APRN.CNP [facility] 02-24-2025 Telephone encounter Note Patient's stool sample, ordered by Leyda Navarrete WARP DYEING TENDER was obtained using incorrect kit. Patient needs new FOBT order placed so she can submit new sample. Please call patient once new order has been placed so she can cigar packer and picker kit. Michaela Bates RN [facility] 02-10-2025 Note [facility] 02-10-2025 Note [facility] 02-07-2025 Telephone encounter Note Noted. Thank you, Naya Ruvalcaba APRN.WARP DYEING TENDER [facility] 02-07-2025 Miscellaneous Notes Noted. Thank you, Naya Ruvalcaba APRN.CNP Spoke with pt gave information provided. Pt voices understanding. She is still having symptoms is up twice a night going to the bathroom and frequently through out the day going. Took med for 2 days got so sick vomiting diarrhea thought she may have flu. But stopped taking it and symptoms went away. Took it again once and it started again . Will try this med. Is she still having symptoms currently? Did she take any of the macrobid regimen? If still symptomatic, go ahead and switch to keflex -- BID x 5 days. Rx sent. The following approved medication requests have been transmitted electronically. Requested Prescriptions Signed Prescriptions Disp Refills cephALEXin (KEFLEX) 500 mg capsule 10 capsule 0 Sig: Take 1 capsule by mouth two times a day for 5 days. Authorizing Provider: NAYA RUVALCABA APRN.WARP DYEING TENDER Patient calls and states that she saw Demetra last week and was given prescription of Macrobid for UTI symptoms. Patient reports that she cannot take this medication. Patient reports that medication causes her to vomit. Patient does take medication with food. Patient asking if there is anything else she can take? Please review and advise, Salma Rodarte RN documented in this encounter [facility] 02-07-2025 Telephone encounter Note Spoke with pt gave information provided. Pt voices understanding. She is still having symptoms is up twice a night going to the bathroom and frequently through out the day going. Took med for 2 days got so sick vomiting diarrhea thought she may have flu. But stopped taking it and symptoms went away. Took it again once and it started again . Will try this med. [facility] 02-07-2025 Telephone encounter Note Is she still having symptoms currently? Did she take any of the macrobid regimen? If still symptomatic, go ahead and switch to keflex -- BID x 5 days. Rx sent. The following approved medication requests have been transmitted electronically. Requested Prescriptions Signed Prescriptions Disp Refills cephALEXin (KEFLEX) 500 mg capsule 10 capsule 0 Sig: Take 1 capsule by mouth two times a day for 5 days. Authorizing Provider: NAYA RUVALCABA APRN.WARP DYEING TENDER [facility] 02-07-2025 Telephone encounter Note Patient calls and states that she saw Demetra last week and was given prescription of Macrobid for UTI symptoms. Patient reports that she cannot take this medication. Patient reports that medication causes her to vomit. Patient does take medication with food. Patient asking if there is anything else she can take? Please review and advise, Salma Rodarte RN [facility] 02-03-2025 Telephone encounter Note Pt called and is notified of providers results. Pt voices understanding. Vanessa Wyatt RN [facility] 02-03-2025 Miscellaneous Notes Pt called and is notified of providers results. Pt voices understanding. Vanessa Wyatt RN Left message to return call. Please let her know that her thyroid levels look great, I have no concerns. Demetra Navarrete APRN.WARP DYEING TENDER documented in this encounter [facility] 02-02-2025 Telephone encounter Note Left message to return call. [facility] 02-02-2025 Telephone encounter Note [facility] website checked and validated. All prescriptions have been APPROPRIATELY filled. No suspicious activity was identified. 02/02/2025 by Mariano Pearce DO The following approved medication requests have been transmitted electronically. Requested Prescriptions Signed Prescriptions Disp Refills clonazePAM (KLONOPIN) 0.5 mg tablet 30 tablet 0 Sig: Take 1 tablet by mouth at bedtime as needed for up to 30 days. Authorizing Provider: MARIANO PEARCE DO [facility] 02-02-2025 Miscellaneous Notes [facility] website checked and validated. All prescriptions have been APPROPRIATELY filled. No suspicious activity was identified. 02/02/2025 by Mariano Pearce DO The following approved medication requests have been transmitted electronically. Requested Prescriptions Signed Prescriptions Disp Refills clonazePAM (KLONOPIN) 0.5 mg tablet 30 tablet 0 Sig: Take 1 tablet by mouth at bedtime as needed for up to 30 days. Authorizing Provider: MARIANO PEARCE DO The patient has been identified by name and date of : Yes Caregiver verified no other encounters exist for this prescription request: Yes Caregiver confirmed with patient/requestor that no other refills are due, in the near future, with this provider at this time: Yes The last office visit in the department: 11/03/2024 Does the patient have a future office visit with this provider/department: 02/01/2025 Requested Prescriptions Pending Prescriptions Disp Refills clonazePAM (KLONOPIN) 0.5 mg tablet 30 tablet 0 Sig: Take 1 tablet by mouth at bedtime as needed for up to 30 days. Zita Vaughan RN January 31, 2025 10:25 AM documented in this encounter [facility] 02-02-2025 Telephone encounter Note Please let her know that her thyroid levels look great, I have no concerns. Demetra Navarrete APRN.WARP DYEING TENDER [facility] 02-01-2025 Instructions Demetra Navarrete APRN.DARLENE - 02/01/2025 1:37 PM EDT Do your sleep study when they send it to your home. Take the Ferrous Sulfate which is the iron once daily with food. I want you to take Vitamin C daily as well-I sent this in-it makes the iron a little easier on your gut and absorb better. Have your labs drawn on your way out today. Do your stool testing for blood. Take the antibiotic twice daily with food, for 7 days. documented in this encounter [facility] 02-01-2025 Note [facility] 02-01-2025 History of Present illness Narrative Chief Complaint Patient presents with: F/U 3 Month UTI: Urinary freq and burning x 4 days HPI Angeli Ramirez Case is a 74 year old female who presents here today for Above Complaints.. Urine concern-burning and frequency x4 days. Bilateral legs from the knees down-can't walk very far, they get weak and very tired. Has been on Zetia and Crestor for her lipids. In the past (a long long time ago) was on Crestor and came off of it and it got better. Was then trialed on a small dose of Crestor and then came off a few months ago but the leg sx aren't getting better. Is still on Zetia. Is wondering if Celexa could be the cause. Is very difficult to go up and down steps. Feels very weak just trying to go out to the mailbox and back. DM-follows with [facility] for this. Thyroid-takes medication as ordered. Past medical history, appointments, medications, allergies reviewed. Previous Medical History PAST MEDICAL HISTORY Diagnosis Date Advance care planning 04/23/2022 daughter Rebecca Case is medical POA per patient Allergic rhinitis, cause unspecified Allergic rhinitis Arthritis Benign hypertensive heart disease without heart failure BPPV (benign paroxysmal positional vertigo) Chronic kidney disease (CKD) stage G3a/A2, moderately decreased glomerular filtration rate (GFR) between 45-59 mL/min/1.73 square meter and albuminuria creatinine ratio between 30-299 mg/g (HCC) Diverticulitis Esophageal reflux Fatty liver Fatty liver Fibromyalgia Gastric polyp 07/04/2014 Dr. Spence, needs repeat EGD in 01/01 Gout right great toe Hernia of other specified sites of abdominal cavity without mention of obstruction or gangrene HIATAL Hypertension IBS (irritable bowel syndrome) Irritable bowel syndrome Leiomyoma of uterus Other and unspecified hyperlipidemia PONV (postoperative nausea and vomiting) 03/11/2018 Renal calculi Snoring Type II or unspecified type diabetes mellitus without mention of complication, not stated as uncontrolled Unspecified hemorrhoids without mention of complication Hemorrhoids Unspecified hypothyroidism Previous Surgical History PAST SURGICAL HISTORY Procedure Laterality Date APPENDECTOMY APPENDECTOMY COLONOSCOPY FLX DX W/COLLJ SPEC WHEN PFRMD 07/04/2014 Colonoscopy, Dr. Spence COLONOSCOPY SCREENING 07/04/2023 repeat 5 years EGD W/O [facility] SPEC VARICIES INJ 07/04/2023 repeat 5 years ESOPHAGOGASTRODUODENOSCOPY TRANSORAL DIAGNOSTIC 07/04/2014 EGD, Dr. Spence ESOPHAGOGASTRODUODENOSCOPY TRANSORAL DIAGNOSTIC 05/29/2015 EGD LAPAROSCOPIC CHOLECYSTECTOMY 06/04/2023 lap [address] with grams Dr Titus OLGUIN ABD PRTM&OMENTUM DX W/WO SPEC BR/WA SPX 1989 Laparoscopy and scar tissue seen LIG/TRNSXJ FLP TUBE ABDL/VAG APPR UNI/BI Tubal ligation PAST SURGICAL HISTORY OF CARPEL TUNNEL/BILATERAL PAST SURGICAL HISTORY OF 1970 exploratory lap and left salpingectomy for bad infection POLYPECTOMY SNARE STIFF WIRE 07/04/2014 gastric TONSILLECTOMY HX TONSILLECTOMY PRIMARY/SECONDARY <AGE 13 Tonsillectomy VAGINAL HYSTERECTOMY VAGINAL HYSTERECTOMY UTERUS 250 GM/< 03/2018 Hysterectomy, vaginal Family History FAMILY HISTORY Problem Relation Age of Onset Hypertension Mother other (DEMENTIA) Mother onset in her 70's Tremor Mother ? Parkinson's Diabetes Father Hypertension Father Lipids Father Anesthesia Problems Sister at 19 yo cardiac arrest during appendectomy, did not survive, 1960' Cancer Maternal Grandmother gallbladder Patient Allergies ALLERGIES Allergen Reactions Crestor [Rosuvastat* Other: See Comments Legs achy Niacin Itching Erythromycin GI Upset Iodine Rash Latex reddness Lescol [Fluvastatin* GI Upset Lipitor [Atorvastat* Intolerance Muscle aching Naprosyn [Naproxen] uncertain Pravastatin Myalgia Arm pain Boyedyw-Pwt-Kzp Red* Intolerance Sulfa (Sulfonamide * Hives Trulicity [Dulaglut* GI Upset Vomiting, diarrhea Hospitalized Vibramycin [Doxycyc* GI Upset Vioxx [Rofecoxib] Swelling Zocor [Simvastatin] uncertain Current Medications Current Outpatient Medications on File Prior to Visit Medication Sig levothyroxine (SYNTHROID) 125 mcg tablet Take on empty stomach. For Thyroid. Take 1 tablet on Friday, Friday, , Friday, Friday. Take a half tablet on Friday and Friday. citalopram hydrobromide (CELEXA) 10 mg tablet Take 1 tablet by mouth once daily. metoprolol tartrate, short acting, (LOPRESSOR) 100 mg tablet Take 1 tablet by mouth two times a day. insulin glargine (BASAGLAR KWIKPEN U-100 INSULIN) 100 unit/mL (3 mL) Inject 56 Units subcutaneously two times a day. Blood-Glucose Meter Use to check blood sugar daily blood sugar diagnostic (BLOOD GLUCOSE TEST) test strip Use to check blood sugar four times daily Lancets Use to check blood sugar four times daily insulin lispro (HUMALOG KWIKPEN INSULIN) 100 unit/mL Inject 14 units with breakfast, 14 units with lunch, and 14 units with dinner + sliding scale insulin (1 unit for every 50 >150 pts). Gets through [facility]. alcohol swabs (ALCOHOL PADS) Test Four times a day. Insulin Dep? Yes E11.9 DM 2 and E10.9 DM 1 enalapril (VASOTEC) 20 mg tablet Take 1 tablet by mouth two times a day. ezetimibe (ZETIA) 10 mg tablet Take 1 tablet by mouth once daily. For cholesterol Blood-Glucose Meter,Continuous (FREESTYLE BETSEY 3 READER) [facility] [place] Use to monitor blood glucose continuously Blood-Glucose Sensor (FREESTYLE BETSEY 3 SENSOR) magdi Apply new sensor to back of upper arm every 14 days omeprazole (PRILOSEC) 40 mg capsule Take 1 capsule by mouth once daily. flash glucose sensor (FREESTYLE BETSEY 14 DAY SENSOR) kit Type 2 diabetes uncontrolled, insulin dependent, Apply sensor to back of arm to check blood sugars as directed. Change sensor every 2 weeks and rotate arms. omega-3 DHA-EPA (FISH OIL) 1,200 (144-216) mg capsule Take 1 capsule by mouth once daily. Insulin [place], Disposable, (BD ULTRA-FINE PATRICIO PEN NEEDLE) 32 gauge x 5/32 Use 4 pen needles daily with Basaglar and Humalog flash glucose scanning reader (FREESTYLE BETSEY 14 DAY READER) Use to check blood sugar as directed. cholecalciferol (VITAMIN D3) 50 mcg (2,000 unit) tablet Take one tablet by mouth once daily Friday through Friday. clonazePAM (KLONOPIN) 0.5 mg tablet Take 1 tablet by mouth at bedtime as needed for up to 30 days. predniSONE (DELTASONE) 50 mg 1 PO 13 HOURS, 7 HOURS AND 1 HOUR PRIOR TO PROCEDURE (Patient not taking: Reported on 11/22/2024) diphenhydrAMINE HCL (BENADRYL ALLERGY) 50 mg tablet Take by mouth, 1 tablet 13 hours prior to test, 7 hours prior, and 1 hour prior (Patient not taking: Reported on 11/22/2024) rosuvastatin (CRESTOR) 5 mg tablet Take 1 tablet by mouth daily at bedtime. (Patient not taking: Reported on 11/22/2024) Triamcinolone Acetonide 0.05 % oint Apply to affected area. (Patient not taking: Reported on 10/07/2024) apremilast (OTEZLA) 30 mg tablet Take 30 mg by mouth once daily. (Patient not taking: Reported on 02/01/2025) No current facility-administered medications on file prior to visit. Social History Social History Tobacco Use Smoking status: Never Smokeless tobacco: Never Vaping Use Vaping status: Never Used Substance Use Topics Alcohol use: No Drug use: No Review of Symptoms REVIEW OF SYSTEMS See HPI, otherwise negative EXAM: BP 136/84 (BP Site: Left Arm, BP Position: Sitting, BP Cuff Size: Regular Adult) Pulse 68 Wt 80.6 kg (177 lb 9.6 oz) SpO2 97% BMI 32.48 kg/m General Appearance: Well appearing, alert, in no acute distress, well-hydrated, well nourished.. Lungs: Lungs clear to auscultation. No wheezing, rhonchi, rales.. Heart: RRR without murmur, gallop, or rubs. No ectopy. Extremities: No deformities, edema, skin discoloration, clubbing or cyanosis. Good capillary refill. . Peripheral Pulses: Normal. Neurologic: Gait normal. Reflexes normal and symmetric. Sensation grossly intact.. Psychiatric: pleasant, cooperative. Health Maintenance List Depression Screening Never done Hepatitis A Vaccine(1 of 2 - Risk 2-dose series) Never done Hepatitis B Vaccine(1 of 3 - Risk 3-dose series) Never done RSV Vaccine(1 - Risk 60-74 years 1-dose series) Never done Cervical Cancer Screening due on 01/07/2018 LDL Cholesterol due on 01/08/2025 Mammogram Screening due on 02/25/2025 Covid-19 Vaccine( season) due on 10/07/2025 HbA1C due on 04/05/2025 Urine Albumin:Creatinine Ratio due on 07/26/2025 DTaP,Tdap,Td Vaccine(2 - Td or Tdap) due on 09/18/2025 Dilated Retinal Exam due on 09/27/2025 Diabetic Foot Exam due on 11/03/2025 Annual PCP Team Chronic Disease Visit due on 11/03/2025 Serum Creatinine due on 11/03/2025 BP Controlled (<130/80) due on 11/22/2025 Hemoglobin/Hematocrit due on 01/06/2026 Colorectal Cancer Screening due on 07/04/2028 Bone Density Screening Completed Influenza Vaccine Completed Hepatitis C Screening Completed Shingrix Vaccine Completed Pneumococcal Vaccine: 50+ Completed Advance Directive Discussion Discontinued Data reviewed Previous records, office notes ASSESSMENT/PLAN: 1. Urinary frequency - ICD9: 788.41, ICD10: R35.0 (primary diagnosis) - UA DIP, URINE (POC) - BACTERIAL CULTURE, URINE - NITROFURANTOIN MONOHYDRATE & MACROCRYSTAL 100 MG ORAL CAP 2. Burning with urination - ICD9: 788.1, ICD10: R30.0 - UA DIP, URINE (POC) - BACTERIAL CULTURE, URINE - NITROFURANTOIN MONOHYDRATE & MACROCRYSTAL 100 MG ORAL CAP 3. Proteinuria, unspecified type - ICD9: 791.0, ICD10: R80.9 - BACTERIAL CULTURE, URINE - NITROFURANTOIN MONOHYDRATE & MACROCRYSTAL 100 MG ORAL CAP 4. Chronic insomnia - ICD9: 780.52, ICD10: F51.04 - HOME SLEEP APNEA TEST (HSAT) 5. Snoring - ICD9: 786.09, ICD10: R06.83 - HOME SLEEP APNEA TEST (HSAT) 6. Drooling - ICD9: 527.7, ICD10: K11.7 - HOME SLEEP APNEA TEST (HSAT) 7. Daytime hypersomnia - ICD9: 780.54, ICD10: G47.10 - HOME SLEEP APNEA TEST (HSAT) 8. Fatty liver - ICD9: 571.8, ICD10: K76.0 Sees specialist next month 9. Iron 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, unspecified iron 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 type - ICD9: 280.9, ICD10: D50.9 - SLOW FE 137 MG (45 MG IRON) TABLET,EXTENDED RELEASE - ASCORBIC ACID (VITAMIN C) 1,000 MG TABLET - IMMUNOCHEMICAL FECAL OCCULT BLOOD TEST 10. Acquired hypothyroidism - ICD9: 244.9, ICD10: E03.9 - THYROID STIMULATING HORMONE - T4 FREE/FREE THYROXINE 11. Occult blood in stools - ICD9: 792.1, ICD10: R19.5 - IMMUNOCHEMICAL FECAL OCCULT BLOOD TEST Demetra Navarrete APRN.CNP Greater than 50% of 44-minute visit spent face to face with patient in counseling and education. documented in this encounter [facility] 01-31-2025 Telephone encounter Note The patient has been identified by name and date of : Yes Caregiver verified no other encounters exist for this prescription request: Yes Caregiver confirmed with patient/requestor that no other refills are due, in the near future, with this provider at this time: Yes The last office visit in the department: 11/03/2024 Does the patient have a future office visit with this provider/department: 02/01/2025 Requested Prescriptions Pending Prescriptions Disp Refills clonazePAM (KLONOPIN) 0.5 mg tablet 30 tablet 0 Sig: Take 1 tablet by mouth at bedtime as needed for up to 30 days. Zita Vaughan RN January 31, 2025 10:25 AM [facility] 01-27-2025 Telephone encounter Note Patient notified of results and provider's instructions. Patient verbalizes understanding. Patient states that she does have headaches off and on. She also has been very tired. Patient denies shortness of breath. Patient has not seen welding rod coater. Patient had seen general surgery for the colonoscopy (Dr. Quinn). Patient is seeing Hepatology next month. Salma Rodarte RN [facility] 01-27-2025 Miscellaneous Notes Patient notified of results and provider's instructions. Patient verbalizes understanding. Patient states that she does have headaches off and on. She also has been very tired. Patient denies shortness of breath. Patient has not seen welding rod coater. Patient had seen general surgery for the colonoscopy (Dr. Quinn). Patient is seeing Hepatology next month. Salma Rodarte RN Left message to return call. Please inform patient that her labs are still showing an anemia with hemoglobin at 8.9. needs to review this with the welding rod coater she is seeing to help determine if she needs a blood transfusion. Is she having any shortness of breath or headaches or fatigue that is significant? Mariano Pearce DO documented in this encounter [facility] 01-27-2025 Telephone encounter Note Left message to return call. [facility] 01-26-2025 Telephone encounter Note Please inform patient that her labs are still showing an anemia with hemoglobin at 8.9. needs to review this with the welding rod coater she is seeing to help determine if she needs a blood transfusion. Is she having any shortness of breath or headaches or fatigue that is significant? Mariano Pearce DO [facility] 01-17-2025 Telephone encounter Note The patient has been identified by name and date of : Yes Caregiver verified no other encounters exist for this prescription request: Yes Caregiver confirmed with patient/requestor that no other refills are due, in the near future, with this provider at this time: Yes The last office visit in the department: 11/03/2024 Does the patient have a future office visit with this provider/department: Yes 02/01/2025 Requested Prescriptions Pending Prescriptions Disp Refills levothyroxine (SYNTHROID) 125 mcg tablet 30 tablet 2 Sig: Take on empty stomach. For Thyroid. Take 1 tablet on Friday, Friday, , Friday, Friday. Take a half tablet on Friday and Friday. citalopram hydrobromide (CELEXA) 10 mg tablet 30 tablet 2 Sig: Take 1 tablet by mouth once daily. Michaela Bates RN [facility] 01-17-2025 Miscellaneous Notes The patient has been identified by name and date of : Yes Caregiver verified no other encounters exist for this prescription request: Yes Caregiver confirmed with patient/requestor that no other refills are due, in the near future, with this provider at this time: Yes The last office visit in the department: 11/03/2024 Does the patient have a future office visit with this provider/department: Yes 02/01/2025 Requested Prescriptions Pending Prescriptions Disp Refills levothyroxine (SYNTHROID) 125 mcg tablet 30 tablet 2 Sig: Take on empty stomach. For Thyroid. Take 1 tablet on Friday, Friday, , Friday, Friday. Take a half tablet on Friday and Friday. citalopram hydrobromide (CELEXA) 10 mg tablet 30 tablet 2 Sig: Take 1 tablet by mouth once daily. Michaela Bates RN documented in this encounter [facility] 01-06-2025 History of Present illness Narrative Images from the original note were not included. Primary Care Pharmacy Visit CC (Reason for Consult): (E11.22, N18.30, Z79.4) Type 2 diabetes mellitus with stage 3 chronic kidney disease, with long-term current use of insulin, unspecified whether stage 3a or 3b CKD (HCC) (primary encounter diagnosis) Goal(s): A1c <7% Last Collaborating Provider Visit: 11/03/[address] Ramses Ramirez Case is a 74 year old female presenting for follow up visit in person. Patient consents to pharmacy collaborative practice agreement. Last Pharmacy Visit: 12/02/24 - Basaglar increased to 56 units twice daily HPI: Reports doing well States BGs have been up and down lately Reports she will sometimes get an alarm that her BG is low in 90s before meal and then it will shoot back up Didn't take Humalog this morning since reading was lower around 100, has happened maybe 2-3 times in last week. If BG is low, will skip Humalog with meal but then states she notices her BGs spike after she eats when this happens States she just received shipment of insulins from [employer] recently so is good on supply Current DM Medications: Basaglar 56 units twice daily Humalog 14 units + sliding scale #1 with meals - taking 16 units plus sliding scale, using anywhere from 16-18 units with meals Previously Trialed DM Meds: Glipizide - hypoglycemia Metformin ER - GI upset Liraglutide - cost-prohibitive; pt felt it did not offer much BG-lowering Trulicity - stomach issues + HIPOLITO Jardiance - unable to afford (income above eligibility limits for pap) Diet Denies any recent changes Breakfast today was 5am, hasn't eaten anything since but will eat after appointment Breakfast 5-8am Lunch ~12-3pm Dinner ~8pm Occasionally has a snack once in awhile, of raw veggies, grapes, blueberries, hard boiled egg, GLYCEMIC CONTROL: Glucometer present at visit: Yes Hypoglycemia: No CGM Data Past medical history reviewed. ALLERGIES Allergen Reactions Crestor [Rosuvastat* Other: See Comments Legs achy Niacin Itching Erythromycin GI Upset Iodine Rash Latex reddness Lescol [Fluvastatin* GI Upset Lipitor [Atorvastat* Intolerance Muscle aching Naprosyn [Naproxen] uncertain Pravastatin Myalgia Arm pain Yqomjyr-Gdv-Uik Red* Intolerance Sulfa (Sulfonamide * Hives Trulicity [Dulaglut* GI Upset Vomiting, diarrhea Hospitalized Vibramycin [Doxycyc* GI Upset Vioxx [Rofecoxib] Swelling Zocor [Simvastatin] uncertain Current Outpatient Medications Medication Sig Dispense Refill clonazePAM (KLONOPIN) 0.5 mg tablet Take 1 tablet by mouth at bedtime as needed for up to 30 days. 30 tablet 0 metoprolol tartrate, short acting, (LOPRESSOR) 100 mg tablet Take 1 tablet by mouth two times a day. 180 tablet 3 insulin glargine (BASAGLAR KWIKPEN U-100 INSULIN) 100 unit/mL (3 mL) Inject 56 Units subcutaneously two times a day. 105 mL 3 predniSONE (DELTASONE) 50 mg 1 PO 13 HOURS, 7 HOURS AND 1 HOUR PRIOR TO PROCEDURE (Patient not taking: Reported on 11/22/2024) 3 tablet 1 diphenhydrAMINE HCL (BENADRYL ALLERGY) 50 mg tablet Take by mouth, 1 tablet 13 hours prior to test, 7 hours prior, and 1 hour prior (Patient not taking: Reported on 11/22/2024) 3 tablet 0 citalopram hydrobromide (CELEXA) 10 mg tablet Take 1 tablet by mouth once daily. 30 tablet 2 levothyroxine (SYNTHROID) 125 mcg tablet Take on empty stomach. For Thyroid. Take 1 tablet on Friday, Friday, , Friday, Friday. Take a half tablet on Friday and Friday. 30 tablet 2 Blood-Glucose Meter Use to check blood sugar daily 1 Each 0 blood sugar diagnostic (BLOOD GLUCOSE TEST) test strip Use to check blood sugar four times daily 400 Each 3 Lancets Use to check blood sugar four times daily 400 Each 3 insulin lispro (HUMALOG KWIKPEN INSULIN) 100 unit/mL Inject 14 units with breakfast, 14 units with lunch, and 14 units with dinner + sliding scale insulin (1 unit for every 50 >150 pts). Gets through [facility]. alcohol swabs (ALCOHOL PADS) Test Four times a day. Insulin Dep? Yes E11.9 DM 2 and E10.9 DM 1 200 Each 5 enalapril (VASOTEC) 20 mg tablet Take 1 tablet by mouth two times a day. 180 tablet 3 ezetimibe (ZETIA) 10 mg tablet Take 1 tablet by mouth once daily. For cholesterol 90 tablet 3 Blood-Glucose Meter,Continuous (FREESTYLE BETSEY 3 READER) [facility] [place] Use to monitor blood glucose continuously 1 Each 0 Blood-Glucose Sensor (FREESTYLE BETSEY 3 SENSOR) magdi Apply new sensor to back of upper arm every 14 days 6 Each 4 omeprazole (PRILOSEC) 40 mg capsule Take 1 capsule by mouth once daily. 90 capsule 3 rosuvastatin (CRESTOR) 5 mg tablet Take 1 tablet by mouth daily at bedtime. (Patient not taking: Reported on 11/22/2024) 90 tablet 5 flash glucose sensor (FREESTYLE BETSEY 14 DAY SENSOR) kit Type 2 diabetes uncontrolled, insulin dependent, Apply sensor to back of arm to check blood sugars as directed. Change sensor every 2 weeks and rotate arms. 6 Kit 2 Triamcinolone Acetonide 0.05 % oint Apply to affected area. (Patient not taking: Reported on 10/07/2024) omega-3 DHA-EPA (FISH OIL) 1,200 (144-216) mg capsule Take 1 capsule by mouth once daily. Insulin [place], Disposable, (BD ULTRA-FINE PATRICIO PEN NEEDLE) 32 gauge x Use 4 pen needles daily with Basaglar and Humalog 360 Each 3 flash glucose scanning reader ([employer] BETSEY 14 DAY READER) Use to check blood sugar as directed. 1 Each 0 apremilast (OTEZLA) 30 mg tablet Take 30 mg by mouth once daily. cholecalciferol (VITAMIN D3) 50 mcg (2,000 unit) tablet Take one tablet by mouth once daily Friday through Friday. No current facility-administered medications for this visit. Pill bottles are not present. Adherence: reports missed doses. Rx coverage: Payor: [employer] MEDICARE / Plan: [employer] HMO / Product Type: HMO / Medications affordable? Yes - enrolled in [employer] Patient Assistance Programs being utilized: [employer] Medication Status Renewal Due Where Delivered [employer] Basaglar Approved 11/16/2025 Patient home [employer] Humalog Approved 11/16/2025 Patient home PHARMACOTHERAPY PREVENTATIVE MEDS: On STEPHANIA/ARB: Yes On Statin: Yes On ASA: No EXAM: There were no vitals taken for this visit. Last 3 Encounter BP Readings: Date: BP: 11/22/2024 118/70 11/03/2024 110/70 10/07/2024 122/60 Wt: 80 kg (176 lb 6.4 oz) BMI: 32.26 kg/(m^2) LABS: Lab Results Component Value Date HBA1C 10.5 10/07/2024 HBA1C 10.9 07/26/2024 HBA1C 9.2 04/07/2024 HBA1C 7.1 07/30/2023 HBA1C 7.9 06/01/2021 HBA1C 8.5 02/27/2021 HBA1C 8.0 11/03/2020 Glucose 404 11/03/2024 BUN 24 11/03/2024 Creatinine 1.19 11/03/2024 Sodium 134 11/03/2024 Potassium 5.1 11/03/2024 Chloride 99 11/03/2024 CO2 21 11/03/2024 Protein, Total 7.0 11/03/2024 Albumin 4.0 11/03/2024 Calcium 9.8 11/03/2024 Alkaline Phosphatase 162 11/03/2024 Bilirubin, Total 0.3 11/03/2024 AST 30 11/03/2024 ALT 26 11/03/2024 Lab Results Component Value Date CHOL 116 01/08/2024 CHOL 213 11/03/2020 CHOL 195 08/03/2020 LDL 53 01/08/2024 LDL 116 11/03/2020 LDL 105 08/03/2020 HDL 33 01/08/2024 HDL 34 11/03/2020 HDL 34 08/03/2020 TG 150 01/08/2024 TG 314 11/03/2020 TG 279 08/03/2020 Albumin/Creat Ratio (mg/g) Date Value 07/26/2024 171 (H) eGFR-All Other Races (.) Date Value 06/01/2021 49 Estimated Glomerular Filtration Rate (mL/min/1.73m ) Date Value 11/03/2024 49 ASSESSMENT/PLAN: 1. Type 2 diabetes mellitus with stage 3 chronic kidney disease, with long-term current use of insulin, unspecified whether stage 3a or 3b CKD (HCC) - ICD9: 250.40, 585.3, V58.67, ICD10: E11.22, N18.30, Z79.4 - Improving control - Continue current medications - Instructed patient to take Humalog before every meal - Statin prescribed - rosuvastatin - Blood glucose monitoring on a continuous glucose monitoring schedule - Counseled on healthy diet and regular exercise - Discussed diabetic education issues of hypoglycemic/hyperglycemic symptoms - Follow up in 2 months, sooner should any other issues arise. - Due for A1c Overdue Diabetes Health Maintenance: Health Maintenance - Diabetes Topic Date Due LDL Cholesterol 01/08/2025 Follow Up: Next PCP visit: 02/01/25 Next PharmD visit: 03/10/25 Greta Watts, PharmD, BCACP Primary Care Clinical Law Writer I spent a total of 30 minutes on the date of the service which included preparing to see the patient, [id number] patient care, completing clinical documentation, counseling and educating the patient/family/caregiver, and ordering medications, tests, or procedures. documented in this encounter [facility] 01-06-2025 Instructions Greta Watts RPh - 01/06/2025 1:00 PM EST Take your Humalog before meals Get labwork done today on your way out documented in this encounter [facility] 01-06-2025 Note [facility] 12-20-2024 Telephone encounter Note The patient has been identified by name and date of : Yes Caregiver verified no other encounters exist for this prescription request: Yes Caregiver confirmed with patient/requestor that no other refills are due, in the near future, with this provider at this time: Yes The last office visit in the department: 11/03/2024 Does the patient have a future office visit with this provider/department: Yes 02/01/2025 Requested Prescriptions Pending Prescriptions Disp Refills metoprolol tartrate, short acting, (LOPRESSOR) 100 mg tablet 180 tablet 3 Sig: Take 1 tablet by mouth two times a day. April Martínez RN December 20, 2024 2:20 PM [facility] 12-20-2024 Miscellaneous Notes The patient has been identified by name and date of : Yes Caregiver verified no other encounters exist for this prescription request: Yes Caregiver confirmed with patient/requestor that no other refills are due, in the near future, with this provider at this time: Yes The last office visit in the department: 11/03/2024 Does the patient have a future office visit with this provider/department: Yes 02/01/2025 Requested Prescriptions Pending Prescriptions Disp Refills metoprolol tartrate, short acting, (LOPRESSOR) 100 mg tablet 180 tablet 3 Sig: Take 1 tablet by mouth two times a day. April Martínez RN December 20, 2024 2:20 PM documented in this encounter [facility] 12-20-2024 Telephone encounter Note The following approved medication requests have been transmitted electronically. Requested Prescriptions Signed Prescriptions Disp Refills clonazePAM (KLONOPIN) 0.5 mg tablet 30 tablet 0 Sig: Take 1 tablet by mouth at bedtime as needed for up to 30 days. Authorizing Provider: MARIANO PEARCE DO [facility] 12-20-2024 Miscellaneous Notes The following approved medication requests have been transmitted electronically. Requested Prescriptions Signed Prescriptions Disp Refills clonazePAM (KLONOPIN) 0.5 mg tablet 30 tablet 0 Sig: Take 1 tablet by mouth at bedtime as needed for up to 30 days. Authorizing Provider: MARIANO PEARCE DO The patient has been identified by name and date of : Yes Caregiver verified no other encounters exist for this prescription request: Yes Caregiver confirmed with patient/requestor that no other refills are due, in the near future, with this provider at this time: Yes The last office visit in the department: 11/03/2024 Does the patient have a future office visit with this provider/department: Yes 02/01/2025 Requested Prescriptions Pending Prescriptions Disp Refills clonazePAM (KLONOPIN) 0.5 mg tablet 30 tablet 0 Sig: Take 1 tablet by mouth at bedtime as needed for up to 30 days. Salma Rodarte RN December 17, 2024 3:33 PM documented in this encounter [facility] 12-17-2024 Telephone encounter Note The patient has been identified by name and date of : Yes Caregiver verified no other encounters exist for this prescription request: Yes Caregiver confirmed with patient/requestor that no other refills are due, in the near future, with this provider at this time: Yes The last office visit in the department: 11/03/2024 Does the patient have a future office visit with this provider/department: Yes 02/01/2025 Requested Prescriptions Pending Prescriptions Disp Refills clonazePAM (KLONOPIN) 0.5 mg tablet 30 tablet 0 Sig: Take 1 tablet by mouth at bedtime as needed for up to 30 days. Salma Rodarte RN December 17, 2024 3:33 PM [facility] 12-03-2024 Telephone encounter Note Contacted patient, schedule 01-27-2025 [facility] Work Phone: 12-03-2024 Miscellaneous Notes Contacted patient, schedule 01-27-2025 Spoke with pt gave information provided. Pt voices understanding. Please assist pt in setting up appointment. Please let patient know that her RUQ US of the liver shows concerns for potential cirrhosis changes. Need her to follow up with Gastroenterology/[facility]ing [facility] for opinion and further testing Mariano Pearce DO documented in this encounter [facility] 12-02-2024 History of Present illness Narrative Images from the original note were not included. Primary Care Pharmacy Visit CC (Reason for Consult): (E11.22, N18.30, Z79.4) Type 2 diabetes mellitus with stage 3 chronic kidney disease, with long-term current use of insulin, unspecified whether stage 3a or 3b CKD (HCC) (primary encounter diagnosis) Goal(s): A1c <7% Last Collaborating Provider Visit: 11/03/[address] Ramses Ramirez Case is a 74 year old female presenting for follow up visit in person. Patient consents to pharmacy collaborative practice agreement. Last Pharmacy Visit: 09/30/24 - A1c ordered Interim Events: - 10/07/24 A1c: 10.5% (slight improvement from 10.9%) HPI: Reports doing okay States she ended up getting the new Betsey 3 meter finally Reports BGs have been up and down, has been having some lows and highs Reports she gets symptoms of sweaty if having a low before meal so will skip dose of Humalog Reports a missed dose of Basaglar at bedtime recently otherwise has been consistent Confirmed appropriate insulin technique and administration Current DM Medications: Basaglar 52 units twice daily Humalog 14 units + sliding scale #1 with meals - taking -16 Previously Trialed DM Meds: Glipizide - hypoglycemia Metformin ER - GI upset Liraglutide - cost-prohibitive; pt felt it did not offer much BG-lowering Trulicity - stomach issues + HIPOLITO Jardiance - unable to afford (income above eligibility limits for pap) Diet Denies any recent changes Breakfast 8-830am, lunch 1-2pm, dinner 7-8pm GLYCEMIC CONTROL: Glucometer present at visit: Yes - Betsey 3 reader Hypoglycemia: No CGM Data Past medical history reviewed. ALLERGIES Allergen Reactions Crestor [Rosuvastat* Other: See Comments Legs achy Niacin Itching Erythromycin GI Upset Iodine Rash Latex reddness Lescol [Fluvastatin* GI Upset Lipitor [Atorvastat* Intolerance Muscle aching Naprosyn [Naproxen] uncertain Pravastatin Myalgia Arm pain Nbjovqa-Fnm-Wmd Red* Intolerance Sulfa (Sulfonamide * Hives Trulicity [Dulaglut* GI Upset Vomiting, diarrhea Hospitalized Vibramycin [Doxycyc* GI Upset Vioxx [Rofecoxib] Swelling Zocor [Simvastatin] uncertain Current Outpatient Medications Medication Sig Dispense Refill clonazePAM (KLONOPIN) 0.5 mg tablet Take 1 tablet by mouth at bedtime as needed for up to 30 days. 30 tablet 0 insulin glargine (BASAGLAR KWIKPEN U-100 INSULIN) 100 unit/mL (3 mL) Inject 52 Units subcutaneously two times a day. 6 Each 3 predniSONE (DELTASONE) 50 mg 1 PO 13 HOURS, 7 HOURS AND 1 HOUR PRIOR TO PROCEDURE (Patient not taking: Reported on 11/22/2024) 3 tablet 1 diphenhydrAMINE HCL (BENADRYL ALLERGY) 50 mg tablet Take by mouth, 1 tablet 13 hours prior to test, 7 hours prior, and 1 hour prior (Patient not taking: Reported on 11/22/2024) 3 tablet 0 citalopram hydrobromide (CELEXA) 10 mg tablet Take 1 tablet by mouth once daily. 30 tablet 2 levothyroxine (SYNTHROID) 125 mcg tablet Take on empty stomach. For Thyroid. Take 1 tablet on Friday, Friday, , Friday, Friday. Take a half tablet on Friday and Friday. 30 tablet 2 Blood-Glucose Meter Use to check blood sugar daily 1 Each 0 blood sugar diagnostic (BLOOD GLUCOSE TEST) test strip Use to check blood sugar four times daily 400 Each 3 Lancets Use to check blood sugar four times daily 400 Each 3 insulin lispro (HUMALOG KWIKPEN INSULIN) 100 unit/mL Inject 14 units with breakfast, 14 units with lunch, and 14 units with dinner + sliding scale insulin (1 unit for every 50 >150 pts). Gets through [employer]. alcohol swabs (ALCOHOL PADS) Test Four times a day. Insulin Dep? Yes E11.9 DM 2 and E10.9 DM 1 200 Each 5 enalapril (VASOTEC) 20 mg tablet Take 1 tablet by mouth two times a day. 180 tablet 3 ezetimibe (ZETIA) 10 mg tablet Take 1 tablet by mouth once daily. For cholesterol 90 tablet 3 Blood-Glucose Meter,Continuous (FREESTYLE BETSEY 3 READER) [facility] [place] to monitor blood glucose continuously 1 Each 0 Blood-Glucose Sensor (FREESTYLE BETSEY 3 SENSOR) magdi Apply new sensor to back of upper arm every 14 days 6 Each 4 omeprazole (PRILOSEC) 40 mg capsule Take 1 capsule by mouth once daily. 90 capsule 3 rosuvastatin (CRESTOR) 5 mg tablet Take 1 tablet by mouth daily at bedtime. (Patient not taking: Reported on 11/22/2024) 90 tablet 5 metoprolol tartrate, short acting, (LOPRESSOR) 100 mg tablet Take 1 tablet by mouth two times a day. 180 tablet 3 flash glucose sensor (FREESTYLE BETSEY 14 DAY SENSOR) kit Type 2 diabetes uncontrolled, insulin dependent, Apply sensor to back of arm to check blood sugars as directed. Change sensor every 2 weeks and rotate arms. 6 Kit 2 Triamcinolone Acetonide 0.05 % oint Apply to affected area. (Patient not taking: Reported on 10/07/2024) omega-3 DHA-EPA (FISH OIL) 1,200 (144-216) mg capsule Take 1 capsule by mouth once daily. Insulin [place], Disposable, (BD ULTRA-FINE PATRICIO PEN NEEDLE) 32 gauge x 5/32 Use 4 pen needles daily with Basaglar and Humalog 360 Each 3 flash glucose scanning reader (FREESTYLE BETSEY 14 DAY READER) Use to check blood sugar as directed. 1 Each 0 apremilast (OTEZLA) 30 mg tablet Take 30 mg by mouth once daily. cholecalciferol (VITAMIN D3) 50 mcg (2,000 unit) tablet Take one tablet by mouth once daily Friday through Friday. No current facility-administered medications for this visit. Pill bottles are not present. Adherence: denies missed doses. Rx coverage: Payor: [facility] MEDICARE / Plan: [facility] [employer] HMO / Product Type: HMO / Medications affordable? Enrolled in [place] (Basaglar and Humalog) PHARMACOTHERAPY PREVENTATIVE MEDS: On STEPHANIA/ARB: Yes On Statin: Yes On ASA: No EXAM: There were no vitals taken for this visit. Last 3 Encounter BP Readings: Date: BP: 11/22/2024 118/70 11/03/2024 110/70 10/07/2024 122/60 Wt: 80 kg (176 lb 6.4 oz) BMI: 32.26 kg/(m^2) LABS: Lab Results Component Value Date HBA1C 10.5 10/07/2024 HBA1C 10.9 07/26/2024 HBA1C 9.2 04/07/2024 HBA1C 7.1 07/30/2023 HBA1C 7.9 06/01/2021 HBA1C 8.5 02/27/2021 HBA1C 8.0 11/03/2020 Glucose 404 11/03/2024 BUN 24 11/03/2024 Creatinine 1.19 11/03/2024 Sodium 134 11/03/2024 Potassium 5.1 11/03/2024 Chloride 99 11/03/2024 CO2 21 11/03/2024 Protein, Total 7.0 11/03/2024 Albumin 4.0 11/03/2024 Calcium 9.8 11/03/2024 Alkaline Phosphatase 162 11/03/2024 Bilirubin, Total 0.3 11/03/2024 AST 30 11/03/2024 ALT 26 11/03/2024 Lab Results Component Value Date CHOL 116 01/08/2024 CHOL 213 11/03/2020 CHOL 195 08/03/2020 LDL 53 01/08/2024 LDL 116 11/03/2020 LDL 105 08/03/2020 HDL 33 01/08/2024 HDL 34 11/03/2020 HDL 34 08/03/2020 TG 150 01/08/2024 TG 314 11/03/2020 TG 279 08/03/2020 Albumin/Creat Ratio (mg/g) Date Value 07/26/2024 171 (H) eGFR-All Other Races (.) Date Value 06/01/2021 49 Estimated Glomerular Filtration Rate (mL/min/1.73m ) Date Value 11/03/2024 49 ASSESSMENT/PLAN: 1. Type 2 diabetes mellitus with stage 3 chronic kidney disease, with long-term current use of insulin, unspecified whether stage 3a or 3b CKD (HCC) - ICD9: 250.40, 585.3, V58.67, ICD10: E11.22, N18.30, Z79.4 - Improving control - Increase Basaglar to 56 units twice daily - Continue all other medications as currently prescribed - Statin prescribed - rosuvastatin - Blood glucose monitoring on a continuous glucose monitoring schedule - Counseled on healthy diet and regular exercise - Discussed diabetic education issues of hypoglycemic/hyperglycemic symptoms - Follow up in 1 month, sooner should any other issues arise. Follow Up: Next PCP visit: 02/01/25 Next PharmD visit: 01/06/25 Greta Watts, PharmD, BCACP Primary Care Clinical Law Writer I spent a total of 25 minutes on the date of the service which included preparing to see the patient, [id number] patient care, completing clinical documentation, counseling and educating the patient/family/caregiver, and ordering medications, tests, or procedures. documented in this encounter [facility] 12-02-2024 Instructions Greta Watts RPh - 12/02/2024 1:00 PM EST Increase Basaglar to 56 units twice daily Continue Humalog 14 units breakfast, 16 units lunch and 16 units dinner documented in this encounter [facility] 12-02-2024 Note [facility] 12-01-2024 Telephone encounter Note Spoke with pt gave information provided. Pt voices understanding. Please assist pt in setting up appointment. [facility] 12-01-2024 Telephone encounter Note Please let patient know that her RUQ US of the liver shows concerns for potential cirrhosis changes. Need her to follow up with Gastroenterology/[facility]ing [facility]er for opinion and further testing Mariano Pearce DO [facility] 11-26-2024 History of Present illness Narrative Radiology Service Progress Note PATIENT NAME: Angeli Rees DATE OF SERVICE: November 26, 2024 TIME: 11:36 AM PATIENT IDENTITY VERIFICATION COMPLETED USING TWO (2) IDENTIFIERS: Name and Date of confirmed by patient verbally. FALL SCREENING: Has the patient had 2 falls in the last year or 1 fall with injury or currently using an Ambulatory Assistive Device (Walker, Cane, Wheelchair, Crutches, etc.)? No PATIENT GENDER DATA: Female. status: : No status: NO. PATIENT RELEVANT IMPLANT DATA REVIEWED: Not Applicable PATIENT PRESENTS WITH AN IMPLANTABLE OR ATTACHED CLAIM CLINICIAN: No RADIOLOGY DEPARTMENT: Ultrasound PERIPHERAL IV DATA: Not applicable SIGNED BY: Ciic Napier RDMS RVT November 26, 2024 11:36 AM documented in this encounter [facility] 11-26-2024 Note [facility] 11-22-2024 Telephone encounter Note Patient returned call and went over results, notes from Dr Pearce with understanding. Assisted with transfer to maintenance scheduler to get ultrasound RUQ appt set up. Patient was going back and forth about I already know I have fatty liver, I saw Dr Quinn today and declined all the further testing colonoscopy, EGD, and hemorrhoidectomy [facility] 11-22-2024 Miscellaneous Notes Patient returned call and went over results, notes from Dr Pearce with understanding. Assisted with transfer to maintenance scheduler to get ultrasound RUQ appt set up. Patient was going back and forth about I already know I have fatty liver, I saw Dr Quinn today and declined all the further testing colonoscopy, EGD, and hemorrhoidectomy Message left to return call. Please let patient know that her CT abd/pelvis results from 11/03 showed IMPRESSION: Colonic diverticulosis predominantly involving the sigmoid colon. Hepatic findings might be due to cirrhosis, but are not conclusive. Mild steatosis Mild splenomegaly This means that no acute findings but may be findings occurring in the liver such as fatty liver or something else. We need to repeat Us liver and may need to see specialist if any concerns seen Mariano Pearce DO documented in this encounter [facility] 11-22-2024 Telephone encounter Note Message left to return call. [facility] 11-22-2024 Note [facility] 11-22-2024 History of Present illness Narrative Angeli Ramirez Case 1950 REFERRING PHYSICIAN: Mariano Pearce DO CHIEF COMPLAINT: Consult (Anemia, hemorrhoids, 2022 last colonoscopy/) HPI: The patient is a 73 year old female presents with complaint of hemorrhoids. She has noted external hemorrhoids protruding for about two months. She states that they are getting bigger. She denies thromboses. She states that she can't go (have a bowel movement). She notes hard balls for stools. She states that she has to strain for bowel movements and has prolonged sitting on the toilet. She notes pain with straining and occasional lower abdominal cramping pain. She denies blood in stools. She also notes black, tarry stools occasionally. She last had an EGD/colonoscopy in 2022. Findings of : FINAL DIAGNOSIS A. Duodenum, biopsy: - Small intestinal mucosa with normal villous architecture and increased intraepithelial lymphocytes; see comment. B. Stomach, antrum, biopsy: - Gastric antral and oxyntic mucosa with chemical gastropathy. C. Esophagus, distal, biopsy: - Squamous mucosa with no diagnostic abnormality. D. Esophagus, mid, biopsy: - Active esophagitis (up to 4 eosinophils in a single high-power field). E. Terminal ileum, biopsy: - Small intestinal mucosa with no diagnostic abnormality. F. Colon, biopsy: - Colonic mucosa with no diagnostic abnormality. G. Colon, ascending, polyp, biopsy: - Tubular adenoma. H. Rectum, polyp, biopsy: - Hyperplastic polyp. Polyp found was < 1 cm, rec 5 year follow up colonoscopy (thus 2027) She is noted to have anemia, Hgb 8.9. PAST MEDICAL HISTORY Diagnosis Date Advance care planning 04/23/2022 daughter Rebecca Case is medical POA per patient Allergic rhinitis, cause unspecified Allergic rhinitis Arthritis Benign hypertensive heart disease without heart failure BPPV (benign paroxysmal positional vertigo) Chronic kidney disease (CKD) stage G3a/A2, moderately decreased glomerular filtration rate (GFR) between 45-59 mL/min/1.73 square meter and albuminuria creatinine ratio between 30-299 mg/g (HCC) Diverticulitis Esophageal reflux Fatty liver Fatty liver Fibromyalgia Gastric polyp 07/04/2014 Dr. Spence, needs repeat EGD in 01/01 Gout right great toe Hernia of other specified sites of abdominal cavity without mention of obstruction or gangrene HIATAL Hypertension IBS (irritable bowel syndrome) Irritable bowel syndrome Leiomyoma of uterus Other and unspecified hyperlipidemia PONV (postoperative nausea and vomiting) 03/11/2018 Renal calculi Snoring Type II or unspecified type diabetes mellitus without mention of complication, not stated as uncontrolled Unspecified hemorrhoids without mention of complication Hemorrhoids Unspecified hypothyroidism PAST SURGICAL HISTORY Procedure Laterality Date APPENDECTOMY APPENDECTOMY COLONOSCOPY FLX DX W/COLLJ SPEC WHEN PFRMD 07/04/2014 Colonoscopy, Dr. Spence COLONOSCOPY SCREENING 07/04/2023 repeat 5 years EGD W/O RUSTH SPEC VARICIES INJ 07/04/2023 repeat 5 years ESOPHAGOGASTRODUODENOSCOPY TRANSORAL DIAGNOSTIC 07/04/2014 EGD, Dr. Spence ESOPHAGOGASTRODUODENOSCOPY TRANSORAL DIAGNOSTIC 05/29/2015 EGD LAPAROSCOPIC CHOLECYSTECTOMY 06/04/2023 lap tosha with grams Dr Muro LAPS ABD PRTM&OMENTUM DX W/WO SPEC BR/WA SPX 1989 Laparoscopy and scar tissue seen LIG/TRNSXJ FLP TUBE ABDL/VAG APPR UNI/BI Tubal ligation PAST SURGICAL HISTORY OF CARPEL TUNNEL/BILATERAL PAST SURGICAL HISTORY OF 1969 exploratory lap and left salpingectomy for bad infection POLYPECTOMY SNARE STIFF WIRE 07/04/2014 gastric TONSILLECTOMY HX TONSILLECTOMY PRIMARY/SECONDARY <AGE 13 Tonsillectomy VAGINAL HYSTERECTOMY VAGINAL HYSTERECTOMY UTERUS 250 GM/< 03/2018 Hysterectomy, vaginal Current Outpatient Medications Medication Sig clonazePAM (KLONOPIN) 0.5 mg tablet Take 1 tablet by mouth at bedtime as needed for up to 30 days. insulin glargine (BASAGLAR KWIKPEN U-100 INSULIN) 100 unit/mL (3 mL) Inject 52 Units subcutaneously two times a day. citalopram hydrobromide (CELEXA) 10 mg tablet Take 1 tablet by mouth once daily. levothyroxine (SYNTHROID) 125 mcg tablet Take on empty stomach. For Thyroid. Take 1 tablet on Friday, Friday, , Friday, Friday. Take a half tablet on Friday and Friday. Blood-Glucose Meter Use to check blood sugar daily blood sugar diagnostic (BLOOD GLUCOSE TEST) test strip Use to check blood sugar four times daily Lancets Use to check blood sugar four times daily insulin lispro (HUMALOG KWIKPEN INSULIN) 100 unit/mL Inject 14 units with breakfast, 14 units with lunch, and 14 units with dinner + sliding scale insulin (1 unit for every 50 >150 pts). Gets through [facility]. alcohol swabs (ALCOHOL PADS) Test Four times a day. Insulin Dep? Yes E11.9 DM 2 and E10.9 DM 1 enalapril (VASOTEC) 20 mg tablet Take 1 tablet by mouth two times a day. ezetimibe (ZETIA) 10 mg tablet Take 1 tablet by mouth once daily. For cholesterol Blood-Glucose Meter,Continuous (FREESTYLE BETSEY 3 READER) [facility] [place] to monitor blood glucose continuously Blood-Glucose Sensor (FREESTYLE BETSEY 3 SENSOR) magdi Apply new sensor to back of upper arm every 14 days omeprazole (PRILOSEC) 40 mg capsule Take 1 capsule by mouth once daily. metoprolol tartrate, short acting, (LOPRESSOR) 100 mg tablet Take 1 tablet by mouth two times a day. flash glucose sensor (FREESTYLE BETSEY 14 DAY SENSOR) kit Type 2 diabetes uncontrolled, insulin dependent, Apply sensor to back of arm to check blood sugars as directed. Change sensor every 2 weeks and rotate arms. omega-3 DHA-EPA (FISH OIL) 1,200 (144-216) mg capsule Take 1 capsule by mouth once daily. Insulin [place], Disposable, (BD ULTRA-FINE PATRICIO PEN NEEDLE) 32 gauge x /32 Use 4 pen needles daily with Basaglar and Humalog flash glucose scanning reader (FREESTYLE BETSEY 14 DAY READER) Use to check blood sugar as directed. cholecalciferol (VITAMIN D3) 50 mcg (2,000 unit) tablet Take one tablet by mouth once daily Friday through Friday. predniSONE (DELTASONE) 50 mg 1 PO 13 HOURS, 7 HOURS AND 1 HOUR PRIOR TO PROCEDURE (Patient not taking: Reported on 11/22/2024) diphenhydrAMINE HCL (BENADRYL ALLERGY) 50 mg tablet Take by mouth, 1 tablet 13 hours prior to test, 7 hours prior, and 1 hour prior (Patient not taking: Reported on 11/22/2024) rosuvastatin (CRESTOR) 5 mg tablet Take 1 tablet by mouth daily at bedtime. (Patient not taking: Reported on 11/22/2024) Triamcinolone Acetonide 0.05 % oint Apply to affected area. (Patient not taking: Reported on 10/07/2024) apremilast (OTEZLA) 30 mg tablet Take 30 mg by mouth once daily. No current facility-administered medications for this visit. ALLERGIES: Crestor [Rosuvastatin Calcium], Niacin, Erythromycin, Iodine, Latex, Lescol [Fluvastatin Sodium], Lipitor [Atorvastatin Calcium], Naprosyn [Naproxen], Pravastatin, [id number]-[id number] Reductase Inhibitors, Sulfa (Sulfonamide Antibiotics), Trulicity [Dulaglutide], Vibramycin [Doxycycline Calcium], Vioxx [Rofecoxib], and Zocor [Simvastatin] PERSONAL HISTORY: Social History Tobacco Use Smoking status: Never Smokeless tobacco: Never Vaping Use Vaping status: Never Used Substance Use Topics Alcohol use: No Drug use: No FAMILY HISTORY Problem Relation Age of Onset Hypertension Mother other (DEMENTIA) Mother onset in her 70's Tremor Mother ? Parkinson's Diabetes Father Hypertension Father Lipids Father Anesthesia Problems Sister at 19 yo cardiac arrest during appendectomy, did not survive, 1960's Cancer Maternal Grandmother gallbladder REVIEW OF SYSTEMS: General: The patient notes fatigue, denies weight loss, denies weight gain, denies feeling hot, and notes feelings of cold. Eyes: The patient denies glaucoma, notes eye injury/surgery, does not wear glasses or contacts. Ear/Nose/Throat: The patient notes allergies, denies hayfever, denies ear infections, and denies bloody noses. Cardiovascular: The patient denies chest pain, denies heart disease, notes high blood pressure,denies cardiac stent, denies prior heart attack, denies irregular heart beat, notes high cholesterol, denies poor circulation, denies heart failure, other cardiac issues, notes claudication, denies cold feet, denies peripheral arterial stent. Respiratory: The patient denies tuberculosis, denies pneumonia, denies frequent cough, denies pulmonary embolism, denies shortness of breath, and denies coughing up blood. Gastrointestinal: The patient denies difficulty swallowing, denies acid reflux, denies ulcers, denies vomiting, denies jaundice/hepatitis, denies gallbladder problems, notes black or tarry stools, notes hemorrhoids, denies bleeding from rectum, notes diverticulitis, notes constipation, denies diarrhea, denies loss of stool control, and denies hernias. Kidney/Bladder: The patient denies kidney stones, denies urine infections, and denies bloody urine. Skin: The patient denies a history of skin cancer, denies bleeding/changing moles, and denies a history of skin rash. Neurologic: The patient denies a history of epilepsy/convulsions, denies headaches, denies head/spinal injuries, and denies stroke/TIA. Psychiatric: The patient denies psychiatric medications, notes depression, and denies voices, denies substance abuse. Endocrine: The patient notes thyroid disorders, notes diabetes, and denies hormonal problems. Hematologic: The patient denies a history of bruising, notes bleeding, and notes anemia, denies blood clots. Infections: The patient notes a history of measles and mumps, denies rheumatic fever, and denies sexually transmitted diseases. Musculoskeletal: The patient notes back pain/injury, denies back problems, denies sciatica, denies knee/foot trouble, notes arthritis, or notes gout. PHYSICAL EXAMINATION: General: The patient is 73 year old female, well nourished, well hydrated in no acute distress. The patient is oriented to time, place, and person. VITALS: Blood pressure 118/70, pulse 96, temperature 36.3 C (97.3 F), height 157.5 cm (5' 2), weight 80 kg (176 lb 6.4 oz), SpO2 97%. Body mass index is 32.26 kg/m . Head: Normal cephalic, atraumatic Eyes: pupils are equally round, sclera are clear/anicteric Neck is supple with no tracheal deviation Cardiac: normal heart sounds, regular Respiratory: Normal respiratory excursion and pattern. Abdominal exam: benign Rectum: Small protruding hemorrhoidal external < 1 cm from anus, no thrombosis or gangrene noted Extremities: no clubbing, cyanosis or edema. Neuro: non focal Psych: normal mood The sensitive examination was discussed with the Patient or Patient's Authorized Alcohol Rubber. As applicable, any other physician, advance practice provider, medical student, or other health professional student that will be observing or involved in the sensitive examination for educational or training purposes was discussed with the Patient or Authorized Alcohol Rubber. The Patient or Authorized Alcohol Rubber has agreed to proceed with the sensitive examination. (Sensitive examination includes inspection and/or palpation of the breasts, pelvis, prostate and anorectal regions) Assessment IMPRESSION: hemorrhoidal disease., anemia PLAN: The patient states that she is not in this patient encounter for consideration of endoscopies. She wanted to have her hemorrhoidal disease treated. I have told patient that she was found to be anemic. I have offered hemorrhoidectomy. I have explained the procedure. I have explained that this procedure usually results in prolonged pain after the procedure for which patients complain about the most. She asks about banding and I have explained that external hemorrhoids cannot be banded. I have offered EGD with biopsies. I have offered EGD and colonoscopy with biopsies. The patient declines all of the above. I have recommended 25-30 grams of fiber per day and at least 8-10 glasses of free water per day, she states that she drinks unsweetened tea a lot (I warned her about the caffeine) I have counseled patient to return to clinic if any worsening signs/symptoms. The patient acknowledges the above. Diagnoses: (D64.9) Anemia, unspecified type (K64.4) External hemorrhoids I have confirmed and edited as necessary, the PFSH and ROS obtained by others. Consultation requested by Dr. Mariano Chin for an opinion regarding patient's anemia and hemorrhoidal disease. My final recommendations will be communicated back to the requesting physician by way of shared Medical record or letter to requesting physician via [place] mail. I spent a total of 31 minutes on the date of the service which included preparing to see the patient with review of any pertinent laboratory studies/radiological imaging/medical records, [id number] patient care, obtaining oral medical history from the patient in this encounter, performing a medically appropriate examination, counseling and educating the patient/family/caregiver, and completing appropriate medical documentation. Kim Quinn MD REVIEW OF SYSTEMS: General: The patient notes fatigue, denies weight loss, denies weight gain, denies feeling hot, and notes feelings of cold. Eyes: The patient denies glaucoma, notes eye injury/surgery, does not wear glasses or contacts. Ear/Nose/Throat: The patient notes allergies, denies hayfever, denies ear infections, and denies bloody noses. Cardiovascular: The patient denies chest pain, denies heart disease, notes high blood pressure,denies cardiac stent, denies prior heart attack, denies irregular heart beat, notes high cholesterol, denies poor circulation, denies heart failure, other cardiac issues, notes claudication, denies cold feet, denies peripheral arterial stent. Respiratory: The patient denies tuberculosis, denies pneumonia, denies frequent cough, denies pulmonary embolism, denies shortness of breath, and denies coughing up blood. Gastrointestinal: The patient denies difficulty swallowing, denies acid reflux, denies ulcers, denies vomiting, denies jaundice/hepatitis, denies gallbladder problems, notes black or tarry stools, notes hemorrhoids, denies bleeding from rectum, notes diverticulitis, notes constipation, denies diarrhea, denies loss of stool control, and denies hernias. Kidney/Bladder: The patient denies kidney stones, denies urine infections, and denies bloody urine. Skin: The patient denies a history of skin cancer, denies bleeding/changing moles, and denies a history of skin rash. Neurologic: The patient denies a history of epilepsy/convulsions, denies headaches, denies head/spinal injuries, and denies stroke/TIA. Psychiatric: The patient denies psychiatric medications, notes depression, and denies voices, denies substance abuse. Endocrine: The patient notes thyroid disorders, notes diabetes, and denies hormonal problems. Hematologic: The patient denies a history of bruising, notes bleeding, and notes anemia, denies blood clots. Infections: The patient notes a history of measles and mumps, denies rheumatic fever, and denies sexually transmitted diseases. Musculoskeletal: The patient notes back pain/injury, denies back problems, denies sciatica, denies knee/foot trouble, notes arthritis, or notes gout. When was patient's last Mammogram screening? 2023 Last Colonoscopy: 2022 Laurence Cha LPN documented in this encounter [facility] 11-22-2024 Note [facility] 11-22-2024 Telephone encounter Note Please let patient know that her CT abd/pelvis results from 11/03 showed IMPRESSION: Colonic diverticulosis predominantly involving the sigmoid colon. Hepatic findings might be due to cirrhosis, but are not conclusive. Mild steatosis Mild splenomegaly This means that no acute findings but may be findings occurring in the liver such as fatty liver or something else. We need to repeat Us liver and may need to see specialist if any concerns seen Mariano Pearce DO [facility] 11-19-2024 Telephone encounter Note The patient has been identified by name and date of : Yes Caregiver verified no other encounters exist for this prescription request: Yes Caregiver confirmed with patient/requestor that no other refills are due, in the near future, with this provider at this time: Yes The last office visit in the department: 11/03/2024 Does the patient have a future office visit with this provider/department: 02/01/2025 Requested Prescriptions Pending Prescriptions Disp Refills clonazePAM (KLONOPIN) 0.5 mg tablet 30 tablet 0 Sig: Take 1 tablet by mouth at bedtime as needed for up to 30 days. Patient is also requesting provider review and advise on CT results from 11/03/2024. Zita Vaughan RN November 19, 2024 11:10 AM [facility] 11-19-2024 Miscellaneous Notes The patient has been identified by name and date of : Yes Caregiver verified no other encounters exist for this prescription request: Yes Caregiver confirmed with patient/requestor that no other refills are due, in the near future, with this provider at this time: Yes The last office visit in the department: 11/03/2024 Does the patient have a future office visit with this provider/department: 02/01/2025 Requested Prescriptions Pending Prescriptions Disp Refills clonazePAM (KLONOPIN) 0.5 mg tablet 30 tablet 0 Sig: Take 1 tablet by mouth at bedtime as needed for up to 30 days. Patient is also requesting provider review and advise on CT results from 11/03/2024. Zita Vaughan RN November 19, 2024 11:10 AM documented in this encounter [facility] 11-03-2024 Telephone encounter Note New RX faxed as requested below. Glenys Stephenson MA [facility] 11-03-2024 Miscellaneous Notes New RX faxed as requested below. Glenys Stehpenson MA The following approved medication requests have been transmitted electronically. Requested Prescriptions Signed Prescriptions Disp Refills insulin glargine (BASAGLAR KWIKPEN U-100 INSULIN) 100 unit/mL (3 mL) 6 Each 3 Sig: Inject 52 Units subcutaneously two times a day. Authorizing Provider: MARIANO PEARCE DO Order pended and set to print. Glenys Stephenson MA [facility] Patient Assistance website notes for change in medication dose, to fax new prescription to [phone]. I would also note on cover sheet dosage change prescription. Routed to Sylvia to see if she has paper work. Please call [employer] patient assistance to increase her basaglar to 52 units twice a day Mariano Pearce DO documented in this encounter [facility] 11-03-2024 Telephone encounter Note The following approved medication requests have been transmitted electronically. Requested Prescriptions Signed Prescriptions Disp Refills insulin glargine (BASAGLAR KWIKPEN U-100 INSULIN) 100 unit/mL (3 mL) 6 Each 3 Sig: Inject 52 Units subcutaneously two times a day. Authorizing Provider: MARIANO PEARCE DO [facility] 11-03-2024 Telephone encounter Note Order pended and set to print. Glenys Stephenson MA [facility] 11-03-2024 Telephone encounter Note [facility] Patient Assistance website notes for change in medication dose, to fax new prescription to [phone]. I would also note on cover sheet dosage change prescription. [facility] 11-03-2024 Telephone encounter Note Routed to Sylvia to see if she has paper work. [facility] 11-03-2024 Instructions Mariano Pearce DO - 11/03/2024 1:17 PM EST Increase your Basaglar to 52 units twice a day documented in this encounter [facility] 11-03-2024 Telephone encounter Note Please call [employer] patient assistance to increase her basaglar to 52 units twice a day Mariano Pearce DO [facility] 11-03-2024 Note [facility] 11-03-2024 History of Present illness Narrative Patient presents with: F/U 3 Month HPI: Angeli Ramirez Case is a 73 year old female who presents to the office today for review of health conditions. Concerns today: Anemia, blood in stool. Does feel that she has external hemorrhoids- using suppositories and topical rectal cream intermittent Had a CT abd/pelvis done today- doesn't know results. She states that she hasn't noticed blood in her stool so unsure if this is where the blood in coming from. Awaiting information on her splenomegaly as well that was found. Fatigue, chronic, from the anemia. Ms. Rees has past history of diabetes. Since our last visit she denies excessive thirst or increased frequency of urination, chest pain or dyspnea , new or unusual visual symptoms, and low sugar/hypoglycemic reactions. Depression- no. Follows a diabetic diet some of the time. She is compliant with medication(s) and is tolerating med(s) without any side effects. She reports checking her glucose on a once a day schedule with sugars in the fasting 250s range. Patient's last HgA1C was Hemoglobin A1C (%) Date Value 10/07/2024 10.5 07/26/2024 10.9 06/01/2021 7.9 02/27/2021 8.5 Hemoglobin A1C (POCT) (%) Date Value 07/30/2023 7.1 ) Last Ophthalmology exam was within the past 12 months Ms. Rees reports history of hyperlipidemia. Current therapy includes ezetimibe (Zetia) 10 mg. Denies side effects of muscle weakness or achiness. Her most recent lipid panels are reviewed. Cholesterol, Total (mg/dL) Date Value 01/08/2024 116 08/03/2020 195 Total Cholesterol, Nonfasting (mg/dL) Date Value 11/03/2020 213 HDL Cholesterol (mg/dL) Date Value 01/08/2024 33 08/03/2020 34 HDL Cholesterol, Nonfasting (mg/dL) Date Value 11/03/2020 34 LDL Cholesterol (mg/dL) Date Value 01/08/2024 53 08/03/2020 105 LDL Cholesterol, Nonfasting (mg/dL) Date Value 11/03/2020 116 Triglyceride (mg/dL) Date Value 01/08/2024 150 08/03/2020 279 Triglycerides, Nonfasting (mg/dL) Date Value 11/03/2020 314 Ms. Rees indicates a history of hypertension and states that she is feeling well and denies any symptoms referable to elevated blood pressure. Specifically denies headache, chest pain, palpitations, dyspnea, and peripheral edema. Patient denies any side effects of her medication(s) and is compliant with their regimen. Last 3 Encounter BP Readings: Date: BP: 11/03/2024 110/70 10/07/2024 122/60 07/27/2024 124/82 She watches her diet for sodium, low fat and low cholesterol some of the time. She does not check BP's generally. Angeli gets sporadic irregular exercise. PAST MEDICAL HISTORY Diagnosis Date Advance care planning 04/23/2022 daughter Rebecca Case is medical POA per patient Allergic rhinitis, cause unspecified Allergic rhinitis Arthritis Benign hypertensive heart disease without heart failure BPPV (benign paroxysmal positional vertigo) Chronic kidney disease (CKD) stage G3a/A2, moderately decreased glomerular filtration rate (GFR) between 45-59 mL/min/1.73 square meter and albuminuria creatinine ratio between 30-299 mg/g (HCC) Diverticulitis Esophageal reflux Fatty liver Fatty liver Fibromyalgia Gastric polyp 07/04/2014 Dr. Spence, needs repeat EGD in 01/01 Gout right great toe Hernia of other specified sites of abdominal cavity without mention of obstruction or gangrene HIATAL Hypertension IBS (irritable bowel syndrome) Irritable bowel syndrome Leiomyoma of uterus Other and unspecified hyperlipidemia PONV (postoperative nausea and vomiting) 03/11/2018 Renal calculi Snoring Type II or unspecified type diabetes mellitus without mention of complication, not stated as uncontrolled Unspecified hemorrhoids without mention of complication Hemorrhoids Unspecified hypothyroidism PAST SURGICAL HISTORY Procedure Laterality Date APPENDECTOMY APPENDECTOMY COLONOSCOPY FLX DX W/COLLJ SPEC WHEN PFRMD 07/04/[address] COLONOSCOPY SCREENING 07/04/2023 repeat 5 years EGD W/O [facility] SPEC VARICIES INJ 07/04/2023 repeat 5 years ESOPHAGOGASTRODUODENOSCOPY TRANSORAL DIAGNOSTIC 07/04/2014 EGD, Dr. Spence ESOPHAGOGASTRODUODENOSCOPY TRANSORAL DIAGNOSTIC 05/29/2015 EGD LAPAROSCOPIC CHOLECYSTECTOMY 06/04/2023 lap [address] Dr Titus OLGUIN ABD PRTM&OMENTUM DX W/WO SPEC BR/WA SPX 1989 Laparoscopy and scar tissue seen LIG/TRNSXJ FLP TUBE ABDL/VAG APPR UNI/BI Tubal ligation PAST SURGICAL HISTORY OF CARPEL TUNNEL/BILATERAL PAST SURGICAL HISTORY OF 1970 exploratory lap and left salpingectomy for bad infection POLYPECTOMY SNARE STIFF WIRE 07/04/2014 gastric TONSILLECTOMY HX TONSILLECTOMY PRIMARY/SECONDARY <AGE 13 Tonsillectomy VAGINAL HYSTERECTOMY VAGINAL HYSTERECTOMY UTERUS 250 GM/< 03/2018 Hysterectomy, vaginal Social History Tobacco Use Smoking status: Never Smokeless tobacco: Never Vaping Use Vaping status: Never Used Substance Use Topics Alcohol use: No Drug use: No FAMILY HISTORY Problem Relation Age of Onset Hypertension Mother other (DEMENTIA) Mother onset in her 70's Tremor Mother ? Parkinson's Diabetes Father Hypertension Father Lipids Father Anesthesia Problems Sister at 19 yo cardiac arrest during appendectomy, did not survive, 1959' Cancer Maternal Grandmother gallbladder Allergies: ALLERGIES Allergen Reactions Crestor [Rosuvastat* Other: See Comments Legs achy Niacin Itching Erythromycin GI Upset Iodine Rash Latex reddness Lescol [Fluvastatin* GI Upset Lipitor [Atorvastat* Intolerance Muscle aching Naprosyn [Naproxen] uncertain Pravastatin Myalgia Arm pain Ezrnctj-Awa-Tua Red* Intolerance Sulfa (Sulfonamide * Hives Trulicity [Dulaglut* GI Upset Vomiting, diarrhea Hospitalized Vibramycin [Doxycyc* GI Upset Vioxx [Rofecoxib] Swelling Zocor [Simvastatin] uncertain Current Meds: predniSONE (DELTASONE) 50 mg 1 PO 13 HOURS, 7 HOURS AND 1 HOUR PRIOR TO PROCEDURE diphenhydrAMINE HCL (BENADRYL ALLERGY) 50 mg tablet Take by mouth, 1 tablet 13 hours prior to test, 7 hours prior, and 1 hour prior citalopram hydrobromide (CELEXA) 10 mg tablet Take 1 tablet by mouth once daily. clonazePAM (KLONOPIN) 0.5 mg tablet Take 1 tablet by mouth at bedtime as needed for up to 30 days. levothyroxine (SYNTHROID) 125 mcg tablet Take on empty stomach. For Thyroid. Take 1 tablet on Friday, Friday, , Friday, Friday. Take a half tablet on Friday and Friday. Blood-Glucose Meter Use to check blood sugar daily blood sugar diagnostic (BLOOD GLUCOSE TEST) test strip Use to check blood sugar four times daily Lancets Use to check blood sugar four times daily insulin lispro (HUMALOG KWIKPEN INSULIN) 100 unit/mL Inject 14 units with breakfast, 14 units with lunch, and 14 units with dinner + sliding scale insulin (1 unit for every 50 >150 pts). Gets through [facility]. alcohol swabs (ALCOHOL PADS) Test Four times a day. Insulin Dep? Yes E11.9 DM 2 and E10.9 DM 1 enalapril (VASOTEC) 20 mg tablet Take 1 tablet by mouth two times a day. ezetimibe (ZETIA) 10 mg tablet Take 1 tablet by mouth once daily. For cholesterol Blood-Glucose Meter,Continuous (FREESTYLE BETSEY 3 READER) [facility] Use to monitor blood glucose continuously Blood-Glucose Sensor (FREESTYLE BETSEY 3 SENSOR) magdi Apply new sensor to back of upper arm every 14 days insulin glargine (BASAGLAR KWIKPEN U-100 INSULIN) 100 unit/mL (3 mL) Inject 50 Units subcutaneously two times a day. omeprazole (PRILOSEC) 40 mg capsule Take 1 capsule by mouth once daily. rosuvastatin (CRESTOR) 5 mg tablet Take 1 tablet by mouth daily at bedtime. metoprolol tartrate, short acting, (LOPRESSOR) 100 mg tablet Take 1 tablet by mouth two times a day. flash glucose sensor (FREESTYLE BETSEY 14 DAY SENSOR) kit Type 2 diabetes uncontrolled, insulin dependent, Apply sensor to back of arm to check blood sugars as directed. Change sensor every 2 weeks and rotate arms. Triamcinolone Acetonide 0.05 % oint Apply to affected area. (Patient not taking: Reported on 10/07/2024) omega-3 DHA-EPA (FISH OIL) 1,200 (144-216) mg capsule Take 1 capsule by mouth once daily. Insulin [place], Disposable, (BD ULTRA-FINE PATRICIO PEN NEEDLE) 32 gauge x 5/32 Use 4 pen needles daily with Basaglar and Humalog flash glucose scanning reader (FREESTYLE BETSEY 14 DAY READER) Use to check blood sugar as directed. colchicine (COLCRYS) 0.6 mg tablet Take 1 tablet by mouth twice daily. For acute gout flare up apremilast (OTEZLA) 30 mg tablet Take 30 mg by mouth once daily. cholecalciferol (VITAMIN D3) 50 mcg (2,000 unit) tablet Take one tablet by mouth once daily Friday through Friday. Review of Systems: The remainder of the review of systems is negative. PE: 11/03/24 1234 BP: 110/70 Pulse: 80 Resp: 16 Temp: 36.1 C (97 F) TempSrc: Left Tympanic Weight: 80.7 kg (178 lb) Gen: A&O, NAD, non-toxic appearing, Pleasant, cooperative HEENT: NT/AC, PERRLA, EOMs intact b/l, nares clear and patent b/l, pharynx without erythema, exudate or lesions. MMM, Uvula midline. EACs without erythema or debris. TMs pearly villanueva with intact landmarks b/l. Neck: supple, No cervical LAD, no thyromegaly, no carotid bruits CV: RRR, normal S1 and S2, no murmurs, no gallops, no rubs, Pulses 2+ and symmetric in UE and LE b/l Lungs: normal respiratory effort, CTA b/l, no wheezing or rhonchi or rales Abd: soft, obese, NT, ND, +BS, no hepatosplenomegaly MS: arthritis changes of joints diffusely Stable but slowed gait Neuro: CN II-XII intact b/l, strength 5/5 b/l UE and LE, DTRs 2/4 UE and LE, sensation intact. Skin: warm, dry, intact, No rashes or lesions on exposed skin. Foot exam: Monofilament wnl on right and left feet. No edema, normal pulses ASSESSMENT/PLAN: 1. Type 2 diabetes mellitus with stage 3 chronic kidney disease, with long-term current use of insulin, unspecified whether stage 3a or 3b CKD (HCC) - ICD9: 250.40, 585.3, V58.67, ICD10: E11.22, N18.30, Z79.4 (primary diagnosis) - Uncontrolled - Improving control - Increase Insulin glargine (Lantus/Basaglar/Toujeo) - eGFR: 59 Stable - Counseled on avoiding NSAIDs, adequate hydration - Counseled on low sodium diet - BASAGLAR KWIKPEN U-100 INSULIN 100 UNIT/ML (3 ML) SUBCUTANEOUS 2. Encounter for screening mammogram for malignant neoplasm of breast - ICD9: V76.12, ICD10: Z12.31 - Set up for mammogram, yearly mammogram recommended - Encouraged monthly BSE - Increase calcium intake with supplements or by diet (goal of 7176-0225 mg/day - Follow up for annual exam in one year. - HIRAL SCREENING - HIRAL SCREENING W LUCY 3. Anemia, unspecified type - ICD9: 285.9, ICD10: D64.9 Labs as ordered F/u with surgeon IFOBT + for blood - COMPREHENSIVE METABOLIC PANEL - COMPLETE BLOOD COUNT AND DIFFERENTIAL - CONSULT TO GENERAL SURGERY 4. External hemorrhoids - ICD9: 455.3, ICD10: K64.4 Labs as ordered F/u with surgeon IFOBT + for blood - CONSULT TO GENERAL SURGERY 5. Acquired hypothyroidism - ICD9: 244.9, ICD10: E03.9 - Instructed patient on importance of taking on an empty stomach either first thing in the morning or at bedtime. 6. Gastrointestinal hemorrhage with melena - ICD9: 578.1, ICD10: K92.1 Labs as ordered F/u with surgeon IFOBT + for blood 7. Spleen enlarged - ICD9: 789.2, ICD10: R16.1 Labs as ordered F/u with surgeon IFOBT + for blood 8. Positive fecal occult blood test - ICD9: 792.1, ICD10: R19.5 Labs as ordered F/u with surgeon IFOBT + for blood 9. Dyslipidemia - ICD9: 272.4, ICD10: E78.5 - Improving control - Continue current medications - Counseled on healthy diet and regular exercise - Discussed need for and benefit of weight loss. BMI 32.56 kg/(m^2) 10. Mixed hyperlipidemia - ICD9: 272.2, ICD10: E78.2 - Improving control - Continue current medications - Counseled on healthy diet and regular exercise - Discussed need for and benefit of weight loss. BMI 32.56 kg/(m^2) 11. Essential hypertension, benign - ICD9: 401.1, ICD10: I10 - Controlled - Continue current medications - Recommend home blood pressure monitoring, to bring results to next visit - Encouraged sodium restriction, DASH or Mediterranean diet - Recommend regular aerobic exercise Mariano Pearce DO To ER if develops chest pain, shortness of breath, or severe worsening of symptoms. Discussed risks, benefits, alternatives, and potential side effects of medications. Patient expressed understanding and agreed with the plan. Mariano Pearce DO [address] [place] [address] documented in this encounter [facility] 11-03-2024 History of Present illness Narrative Radiology Service Progress Note DATE OF SERVICE: November 03, 2024 TIME: 3:13 PM PATIENT IDENTITY VERIFICATION COMPLETED USING TWO (2) STANDARD IDENTIFIERS: Name and Date of confirmed by patient verbally. FALL SCREENING: Has the patient had 2 falls in the last year or 1 fall with injury or currently using an Ambulatory Assistive Device (Walker, Cane, Wheelchair, Crutches, etc.)? No PATIENT GENDER DATA: Female. status: : No status: NO. PATIENT RELEVANT IMPLANT DATA REVIEWED: Yes PATIENT PRESENTS WITH AN IMPLANTABLE OR ATTACHED CLAIM CLINICIAN: No ALLERGIES: Reviewed and unchanged CONTRAST ALLERGY: NO. EXAM: CT -CONTRAST INDUCED NEPHROPATHY RISK FACTORS: Patient age > 60 years CREATININE: Creatinine Date Value Ref Range Status 10/18/2024 1.02 (H) 0.58 - 0.96 mg/dL Final 07/27/2024 1.08 (H) 0.58 - 0.96 mg/dL Final 01/08/2024 1.09 (H) 0.58 - 0.96 mg/dL Final Estimated Glomerular Filtration Rate Date Value Ref Range Status 10/18/2024 59 (L) >=60 mL/min/1.73m Final Comment: Estimated Glomerular Filtration Rate (eGFR) is calculated using the 2020 CKD-EPI creatinine equation. This equation utilizes serum creatinine, sex, and age as parameters. The creatinine assay has traceable calibration to isotope dilution-mass spectrometry. Refer to KDIGO guidelines for clinical interpretation. In patients with unstable renal function, e.g. those with acute kidney injury, the eGFR may not accurately reflect actual GFR. eGFR- Date Value Ref Range Status 06/01/2021 59 Final P.O.C.T. RESULTS: POC done: Yes, See Lab Tab November 03, 2024 TREATMENT: N/A PERIPHERAL IV DATA: Ambulatory: A peripheral IV was started in the Left antecubital site with a Angio cath: 22 gauge. RADIOLOGY DEPARTMENT: CT; Exam(s) Completed: Abdomen/Pelvis SIGNATURE: RT Mariaa(R) PATIENT NAME: Angeli Ramirez Case DATE: November 03, 2024 TIME: 3:13 PM documented in this encounter [facility] 11-03-2024 Note [facility] 11-02-2024 Telephone encounter Note Phoned patient aware rx x 2 sent to the pharmacy. [facility] 11-02-2024 Miscellaneous Notes Phoned patient aware rx x 2 sent to the pharmacy. The following approved medication requests have been transmitted electronically. Requested Prescriptions Signed Prescriptions Disp Refills predniSONE (DELTASONE) 50 mg 3 tablet 1 Si PO 13 HOURS, 7 HOURS AND 1 HOUR PRIOR TO PROCEDURE Authorizing Provider: NAYA RUVALCABA Ordering User: DEMETRA NAVARRETE diphenhydrAMINE HCL (BENADRYL ALLERGY) 50 mg tablet 3 tablet 0 Sig: Take by mouth, 1 tablet 13 hours prior to test, 7 hours prior, and 1 hour prior Authorizing Provider: NAYA RUVALCABA Ordering User: DEMETRA NAVARRETE APRN.WARP DYEING TENDER The following approved medication requests have been transmitted electronically. Requested Prescriptions Signed Prescriptions Disp Refills predniSONE (DELTASONE) 50 mg 3 tablet 1 Si PO 13 HOURS, 7 HOURS AND 1 HOUR PRIOR TO PROCEDURE Authorizing Provider: NAYA RUVALCABA Ordering User: DEMETRA NAVARRETE APRN.WARP DYEING TENDER Patient calls and states that pharmacy did not receive medication. Patient is requesting that medication be sent to [facility] [place]. Previous prescription was sent to print and did not go to pharmacy. Patient also asking about benadryl and how to take the benadryl prior to procedure. Please review and adviseSalma RN documented in this encounter [facility] 11-02-2024 Telephone encounter Note The following approved medication requests have been transmitted electronically. Requested Prescriptions Signed Prescriptions Disp Refills predniSONE (DELTASONE) 50 mg 3 tablet 1 Si PO 13 HOURS, 7 HOURS AND 1 HOUR PRIOR TO PROCEDURE Authorizing Provider: NAYA RUVALCABA Ordering User: DEMETRA NAVARRETE diphenhydrAMINE HCL (BENADRYL ALLERGY) 50 mg tablet 3 tablet 0 Sig: Take by mouth, 1 tablet 13 hours prior to test, 7 hours prior, and 1 hour prior Authorizing Provider: NAYA RUVALCABA Ordering User: DEMETRA NAVARRETE APRN.CNP [facility] 11-02-2024 Telephone encounter Note The following approved medication requests have been transmitted electronically. Requested Prescriptions Signed Prescriptions Disp Refills predniSONE (DELTASONE) 50 mg 3 tablet 1 Si PO 13 HOURS, 7 HOURS AND 1 HOUR PRIOR TO PROCEDURE Authorizing Provider: NAYA RUVALCABA Ordering User: DEMETRA NAVARRETE APRN.CNP [facility] 11-02-2024 Telephone encounter Note Patient calls and states that pharmacy did not receive medication. Patient is requesting that medication be sent to [facility]. Previous prescription was sent to print and did not go to pharmacy. Patient also asking about benadryl and how to take the benadryl prior to procedure. Please review and advise, Salma Rodarte RN [facility] 11-01-2024 Telephone encounter Note Called and spoke with pt she said [facility] here in [place]. I penned the correct pharmacy for you. She is asking if she has to fast for this test? [facility] 11-01-2024 Miscellaneous Notes Called and spoke with pt she said [facility] here in [place]. I penned the correct pharmacy for you. She is asking if she has to fast for this test? Radiology called me to have medication prescribed to patient d/t history of allergy to contrast dye (rash). Please call patient to see where she wants this sent to as CT scan is scheduled for Friday. [facility], [place] is what we have pended. Thank you, Naya Ruvalcaba APRN.WARP DYEING TENDER documented in this encounter [facility] 11-01-2024 Telephone encounter Note Radiology called me to have medication prescribed to patient d/t history of allergy to contrast dye (rash). Please call patient to see where she wants this sent to as CT scan is scheduled for Friday[facility]. Thank you, Naya Ruvalcaba APRN.WARP DYEING TENDER [facility] 10-26-2024 Telephone encounter Note These have been faxed and sent to Sylvia. [facility] 10-26-2024 Miscellaneous Notes These have been faxed and sent to Sylvia. Forms have already been signed Mariano Pearce DO Forms were printed and placed on Dr. Pearce's desk for signing. Provider portion of patient assistance 2024 renewal applications (addwish) have been scanned to patient documents. Patient Assistance Team is asking that forms be printed at office for Dr Pearce to review and sign. Once signed by provider please fax forms back to Patient Assistance Team ATTN : Cy at [phone]. Thank You! Yeni Souza [facility] E-Mail : [email or web address] Phone : [phone] Fax : [phone] documented in this encounter [facility] 10-26-2024 Telephone encounter Note Forms have already been signed Mariano Pearce DO [facility] 10-25-2024 Miscellaneous Notes PDMP website checked and validated. All prescriptions have been APPROPRIATELY filled. No suspicious activity was identified. 10/25/2024 by Naya Ruvalcaba APRN.WARP DYEING TENDER The following approved medication requests have been transmitted electronically. Requested Prescriptions Signed Prescriptions Disp Refills citalopram hydrobromide (CELEXA) 10 mg tablet 30 tablet 2 Sig: Take 1 tablet by mouth once daily. Authorizing Provider: NAYA RUVALCABA clonazePAM (KLONOPIN) 0.5 mg tablet 30 tablet 0 Sig: Take 1 tablet by mouth at bedtime as needed for up to 30 days. Authorizing Provider: NAYA RUVALCABA levothyroxine (SYNTHROID) 125 mcg tablet 30 tablet 2 Sig: Take on empty stomach. For Thyroid. Take 1 tablet on Friday, Friday, , Friday, Friday. Take a half tablet on Friday and Friday. Authorizing Provider: NAYA RUVALCABA APRN.WARP DYEING TENDER The patient has been identified by name and date of : Yes pharmacy Caregiver verified no other encounters exist for this prescription request: Yes Caregiver confirmed with patient/requestor that no other refills are due, in the near future, with this provider at this time: Yes The last office visit in the department: 10/07/2024 Does the patient have a future office visit with this provider/department: Yes 11/03/2024 Requested Prescriptions Pending Prescriptions Disp Refills citalopram hydrobromide (CELEXA) 10 mg tablet 30 tablet 2 Sig: Take 1 tablet by mouth once daily. clonazePAM (KLONOPIN) 0.5 mg tablet 30 tablet 1 Sig: Take 1 tablet by mouth at bedtime as needed for up to 30 days. levothyroxine (SYNTHROID) 125 mcg tablet 30 tablet 2 Sig: Take on empty stomach. For Thyroid. Take 1 tablet on Friday, Friday, , Friday, Friday. Take a half tablet on Friday and Friday. Marisol Ramirez LPN October 25, 2024 11:03 AM documented in this encounter [facility] 10-25-2024 Telephone encounter Note PDMP website checked and validated. All prescriptions have been APPROPRIATELY filled. No suspicious activity was identified. 10/25/2024 by Naya Ruvalcaba APRN.CNP The following approved medication requests have been transmitted electronically. Requested Prescriptions Signed Prescriptions Disp Refills citalopram hydrobromide (CELEXA) 10 mg tablet 30 tablet 2 Sig: Take 1 tablet by mouth once daily. Authorizing Provider: NAYA RUVALCABA clonazePAM (KLONOPIN) 0.5 mg tablet 30 tablet 0 Sig: Take 1 tablet by mouth at bedtime as needed for up to 30 days. Authorizing Provider: NAYA RUVALCABA levothyroxine (SYNTHROID) 125 mcg tablet 30 tablet 2 Sig: Take on empty stomach. For Thyroid. Take 1 tablet on Friday, Friday, , Friday, Friday. Take a half tablet on Friday and Friday. Authorizing Provider: NAYA RUVALCABA APRN.WARP DYEING TENDER [facility] 10-25-2024 Telephone encounter Note The patient has been identified by name and date of : Yes pharmacy Caregiver verified no other encounters exist for this prescription request: Yes Caregiver confirmed with patient/requestor that no other refills are due, in the near future, with this provider at this time: Yes The last office visit in the department: 10/07/2024 Does the patient have a future office visit with this provider/department: Yes 11/03/2024 Requested Prescriptions Pending Prescriptions Disp Refills citalopram hydrobromide (CELEXA) 10 mg tablet 30 tablet 2 Sig: Take 1 tablet by mouth once daily. clonazePAM (KLONOPIN) 0.5 mg tablet 30 tablet 1 Sig: Take 1 tablet by mouth at bedtime as needed for up to 30 days. levothyroxine (SYNTHROID) 125 mcg tablet 30 tablet 2 Sig: Take on empty stomach. For Thyroid. Take 1 tablet on Friday, Friday, , Friday, Friday. Take a half tablet on Friday and Friday. Marisol Ramirez LPN October 25, 2024 11:[address] [facility] 10-20-2024 Telephone encounter Note Forms were printed and placed on Dr. Pearce's desk for signing. [facility] 10-19-2024 Telephone encounter Note Provider portion of patient assistance 2024 renewal applications (addwish) have been scanned to patient documents. Patient Assistance Team is asking that forms be printed at office for Dr Pearce to review and sign. Once signed by provider please fax forms back to Patient Assistance Team ATTN : Cy at [phone]. Thank You! Yeni Souza [facility] E-Mail : [email or web address] Phone : [phone] Fax : [phone] [facility] 10-19-2024 Telephone encounter Note Patient returned call and given provider's message below and patient verbalized understanding. Ryan Bates RN [facility] 10-19-2024 Miscellaneous Notes Patient returned call and given provider's message below and patient verbalized understanding. Ryan Bates RN Left message to return call Trisha Marroquin MA Please let her know that her mono test is negative. Her kidney function is stable. Demetra Navarrete APRN.DARLENE documented in this encounter [facility] 10-19-2024 Telephone encounter Note Left message to return call Trisha Marroquin MA [facility] 10-19-2024 Telephone encounter Note Please let her know that her mono test is negative. Her kidney function is stable. Demetra Navarrete APRN.DARLENE [facility] 10-13-2024 Telephone encounter Note Spoke with pt gave information provided. Pt voices understanding. [facility] 10-13-2024 Miscellaneous Notes Spoke with pt gave information provided. Pt voices understanding. Please call patient and let her know that US of abd shows no acute concerns or bleeding. It does show enlarged spleen. I would like mono testing done. No need to complete CT scan of abd. Please continue with GI consult about further colonoscopy. Thank you, Naya Ruvalcaba APRN.WARP DYEING TENDER documented in this encounter [facility] 10-13-2024 Telephone encounter Note Please call patient and let her know that US of abd shows no acute concerns or bleeding. It does show enlarged spleen. I would like mono testing done. No need to complete CT scan of abd. Please continue with GI consult about further colonoscopy. Thank you, Naya Ruvalcaba APRN.WARP DYEING TENDER [facility] 10-11-2024 Telephone encounter Note Spoke with patient. Given message from provider's office. Patient verbalizes understanding.Transferred to maintenance scheduler for appointments. Advised patient need for lab draw prior to CT scan. Hyun Landaverde RN [facility] 10-11-2024 Miscellaneous Notes Spoke with patient. Given message from provider's office. Patient verbalizes understanding.Transferred to maintenance scheduler for appointments. Advised patient need for lab draw prior to CT scan. Hyun Landaverde RN Left message to return call. Please call patient and let her know that occult stool testing was positive for blood in GI tract/stool and iron levels were pretty normal. I know patient had colonoscopy completed in June but with how much her hgb has dropped since July, I want patient to be seen back with GI to see about possible need for repeat colonoscopy. I also want patient to have CT abd to further investigate. Please help to schedule both of these. Thank you, Naya Ruvalcaba APRN.WARP DYEING TENDER documented in this encounter [facility] 10-11-2024 Telephone encounter Note Left message to return call. [facility] 10-11-2024 History of Present illness Narrative Radiology Service Progress Note PATIENT NAME: Angeli Rees DATE OF SERVICE: October 11, 2024 TIME: 9:40 AM PATIENT IDENTITY VERIFICATION COMPLETED USING TWO (2) IDENTIFIERS: Name and Date of confirmed by patient verbally. FALL SCREENING: Has the patient had 2 falls in the last year or 1 fall with injury or currently using an Ambulatory Assistive Device (Walker, Cane, Wheelchair, Crutches, etc.)? No PATIENT GENDER DATA: Female. status: : No status: NO. PATIENT RELEVANT IMPLANT DATA REVIEWED: Not Applicable PATIENT PRESENTS WITH AN IMPLANTABLE OR ATTACHED CLAIM CLINICIAN: No RADIOLOGY DEPARTMENT: Ultrasound PERIPHERAL IV DATA: Not applicable SIGNED BY: Enedelia Dewey RDMS October 11, 2024 9:40 AM documented in this encounter [facility] 10-11-2024 Note [facility] 10-11-2024 Telephone encounter Note Please call patient and let her know that occult stool testing was positive for blood in GI tract/stool and iron levels were pretty normal. I know patient had colonoscopy completed in June but with how much her hgb has dropped since July, I want patient to be seen back with GI to see about possible need for repeat colonoscopy. I also want patient to have CT abd to further investigate. Please help to schedule both of these. Thank you, Naya Ruvalcaba APRN.WARP DYEING TENDER [facility] 10-07-2024 Instructions Naya Ruvalcaba APRN.CNP - 10/07/2024 12:01 PM EST Stop Crestor from now until appointment with Dr. Pearce to see if leg aching improves. Iron lab work done today. US of abd d/t bloating and to look for any source of bleeding. documented in this encounter [facility] 10-07-2024 History of Present illness Narrative Chief Complaint Patient presents with: discuss anemia HPI Angeli Ramirez Case is a 73 year old female who presents here today for Above Complaints. Opal is an established patient of Dr. Ramses Do. She is a new patient to me today. Concerns today.. Anemia -- Recent lab work completed. Ongoing anemia -- hgb continues to decrease since March. Recent lab work on 10/05 from outside facility with hgb of 9.0 -- labs are in computer system. Has not noticed any blood in stool or stomach cramps. No bleeding from anywhere that patient is aware of. Pt does report intermittent abdominal bloating, nausea, and diarrhea. Pt has colonoscopy in June with no significant concerns. Iron labs in April were normal. Pt reports being on iron supplement in the past but unable to tolerate d/t severe constipation. Had discussed with Dr. Pearce in the past about iron infusions but never qualified for them d/t no anemia. Pt also c/o aches in bilateral legs. Reports recently restarted on low dose crestor and zetia. Had issues with similar leg fatigue when on Crestor prior and had to discontinue. Type 2 DM -- Following with pharmacy for this. Has follow-up appointment scheduled, last seen last week by pharmacy team. Past medical history, appointments, medications, allergies reviewed. Previous Medical History PAST MEDICAL HISTORY Diagnosis Date Advance care planning 04/23/2022 daughter Rebecca Case is medical POA per patient Allergic rhinitis, cause unspecified Allergic rhinitis Arthritis Benign hypertensive heart disease without heart failure BPPV (benign paroxysmal positional vertigo) Chronic kidney disease (CKD) stage G3a/A2, moderately decreased glomerular filtration rate (GFR) between 45-59 mL/min/1.73 square meter and albuminuria creatinine ratio between 30-299 mg/g (HCC) Diverticulitis Esophageal reflux Fatty liver Fatty liver Fibromyalgia Gastric polyp 07/04/2014 Dr. Spence, needs repeat EGD in 01/01 Gout right great toe Hernia of other specified sites of abdominal cavity without mention of obstruction or gangrene HIATAL Hypertension IBS (irritable bowel syndrome) Irritable bowel syndrome Leiomyoma of uterus Other and unspecified hyperlipidemia PONV (postoperative nausea and vomiting) 03/11/2018 Renal calculi Snoring Type II or unspecified type diabetes mellitus without mention of complication, not stated as uncontrolled Unspecified hemorrhoids without mention of complication Hemorrhoids Unspecified hypothyroidism Previous Surgical History PAST SURGICAL HISTORY Procedure Laterality Date APPENDECTOMY APPENDECTOMY COLONOSCOPY FLX DX W/COLLJ SPEC WHEN PFRMD 07/04/2014 Colonoscopy, Dr. Spence COLONOSCOPY SCREENING 07/04/2023 repeat 5 years EGD W/O BRSH SPEC VARICIES INJ 07/04/2023 repeat 5 years ESOPHAGOGASTRODUODENOSCOPY TRANSORAL DIAGNOSTIC 07/04/2014 EGD, Dr. Spence ESOPHAGOGASTRODUODENOSCOPY TRANSORAL DIAGNOSTIC 05/29/2015 EGD LAPAROSCOPIC CHOLECYSTECTOMY 06/04/2023 lap tosha with grams Dr Muro LAPS ABD PRTM&OMENTUM DX W/WO SPEC BR/WA SPX 1989 Laparoscopy and scar tissue seen LIG/TRNSXJ FLP TUBE ABDL/VAG APPR UNI/BI Tubal ligation PAST SURGICAL HISTORY OF CARPEL TUNNEL/BILATERAL PAST SURGICAL HISTORY OF 1969 exploratory lap and left salpingectomy for bad infection POLYPECTOMY SNARE STIFF WIRE 07/04/2014 gastric TONSILLECTOMY HX TONSILLECTOMY PRIMARY/SECONDARY <AGE 13 Tonsillectomy VAGINAL HYSTERECTOMY VAGINAL HYSTERECTOMY UTERUS 250 GM/< 03/2018 Hysterectomy, vaginal Family History FAMILY HISTORY Problem Relation Age of Onset Hypertension Mother other (DEMENTIA) Mother onset in her 70's Tremor Mother ? Parkinson's Diabetes Father Hypertension Father Lipids Father Anesthesia Problems Sister at 19 yo cardiac arrest during appendectomy, did not survive, Cancer Maternal Grandmother gallbladder Patient Allergies ALLERGIES Allergen Reactions Crestor [Rosuvastat* Other: See Comments Legs achy Niacin Itching Erythromycin GI Upset Iodine Rash Latex reddness Lescol [Fluvastatin* GI Upset Lipitor [Atorvastat* Intolerance Muscle aching Naprosyn [Naproxen] uncertain Pravastatin Myalgia Arm pain Wgjsmwj-Jft-Apb Red* Intolerance Sulfa (Sulfonamide * Hives Trulicity [Dulaglut* GI Upset Vomiting, diarrhea Hospitalized Vibramycin [Doxycyc* GI Upset Vioxx [Rofecoxib] Swelling Zocor [Simvastatin] uncertain Current Medications Current Outpatient Medications on File Prior to Visit Medication Sig Blood-Glucose Meter Use to check blood sugar daily blood sugar diagnostic (BLOOD GLUCOSE TEST) test strip Use to check blood sugar four times daily Lancets Use to check blood sugar four times daily insulin lispro (HUMALOG KWIKPEN INSULIN) 100 unit/mL Inject 14 units with breakfast, 14 units with lunch, and 14 units with dinner + sliding scale insulin (1 unit for every 50 >150 pts). Gets [facility]. alcohol swabs (ALCOHOL PADS) Test Four times a day. Insulin Dep? Yes E11.9 DM 2 and E10.9 DM 1 clonazePAM (KLONOPIN) 0.5 mg tablet Take 1 tablet by mouth at bedtime as needed for up to 30 days. enalapril (VASOTEC) 20 mg tablet Take 1 tablet by mouth two times a day. ezetimibe (ZETIA) 10 mg tablet Take 1 tablet by mouth once daily. For cholesterol levothyroxine (SYNTHROID) 125 mcg tablet Take on empty stomach. For Thyroid. Take 1 tablet on Friday, Friday, , Friday, Friday. Take a half tablet on Friday and Friday. Blood-Glucose Meter,Continuous (FREESTYLE BETSEY 3 READER) [facility] Use to monitor blood glucose continuously Blood-Glucose Sensor (FREESTYLE BETSEY 3 SENSOR) magdi Apply new sensor to back of upper arm every 14 days citalopram hydrobromide (CELEXA) 10 mg tablet Take 1 tablet by mouth once daily. insulin glargine (BASAGLAR KWIKPEN U-100 INSULIN) 100 unit/mL (3 mL) Inject 50 Units subcutaneously two times a day. omeprazole (PRILOSEC) 40 mg capsule Take 1 capsule by mouth once daily. rosuvastatin (CRESTOR) 5 mg tablet Take 1 tablet by mouth daily at bedtime. metoprolol tartrate, short acting, (LOPRESSOR) 100 mg tablet Take 1 tablet by mouth two times a day. flash glucose sensor (FREESTYLE BETSEY 14 DAY SENSOR) kit Type 2 diabetes uncontrolled, insulin dependent, Apply sensor to back of arm to check blood sugars as directed. Change sensor every 2 weeks and rotate arms. Triamcinolone Acetonide 0.05 % oint Apply to affected area. omega-3 DHA-EPA (FISH OIL) 1,200 (144-216) mg capsule Take 1 capsule by mouth once daily. Insulin [place], Disposable, (BD ULTRA-FINE APTRICIO PEN NEEDLE) 32 gauge x 5/32 Use 4 pen needles daily with Basaglar and Humalog flash glucose scanning reader (FREESTYLE BETSEY 14 DAY READER) Use to check blood sugar as directed. colchicine (COLCRYS) 0.6 mg tablet Take 1 tablet by mouth twice daily. For acute gout flare up apremilast (OTEZLA) 30 mg tablet Take 30 mg by mouth once daily. cholecalciferol (VITAMIN D3) 50 mcg (2,000 unit) tablet Take one tablet by mouth once daily Friday through Friday. No current facility-administered medications on file prior to visit. Social History Social History Tobacco Use Smoking status: Never Smokeless tobacco: Never Vaping Use Vaping status: Never Used Substance Use Topics Alcohol use: No Drug use: No REVIEW OF SYSTEMS: as above Reviewed relevant PMHx, PSHx, Social Hx, current medications and allergies. Review of Symptoms REVIEW OF SYSTEMS See HPI. EXAM: BP 122/60 (BP Site: Left Arm, BP Position: Sitting, BP Cuff Size: Large Adult) Pulse 60 Resp 14 Wt 80.3 kg (177 lb 0.5 oz) SpO2 95% BMI 32.38 kg/m General Appearance: Well appearing, alert, in no acute distress, well-hydrated, well nourished.. Skin: Skin color, texture, turgor normal, no suspicious rashes or lesions. Head: Normocephalic, no masses, lesions, tenderness or abnormalities. Lungs: Lungs clear to auscultation. No wheezing, rhonchi, rales.. Heart: RRR without murmur, gallop, or rubs. No ectopy. Abdomen: Normal abdominal exam, Abdomen soft, non-tender. Bowel sounds normal. No masses, organomegaly. Extremities: No deformities, edema, skin discoloration, clubbing or cyanosis. Good capillary refill. . Musculoskeletal: No joint swelling, deformity, or tenderness. Peripheral Pulses: Normal. Health Maintenance List Depression Screening Never done RSV Vaccine(1 - Risk 60-74 years 1-dose series) Never done Cervical Cancer Screening due on 01/07/2018 BP Controlled (<130/80) due on 01/28/2024 Diabetic Foot Exam due on 07/30/2024 Mammogram Screening due on 02/25/2025 Covid-19 Vaccine( season) due on 10/07/2025 HbA1C due on 10/25/2024 LDL Cholesterol due on 01/08/2025 Urine Albumin:Creatinine Ratio due on 07/26/2025 Annual PCP Team Chronic Disease Visit due on 07/27/2025 Serum Creatinine due on 07/27/2025 Hemoglobin/Hematocrit due on 07/27/2025 DTaP,Tdap,Td Vaccine(2 - Td or Tdap) due on 09/18/2025 Dilated Retinal Exam due on 09/27/2025 Colorectal Cancer Screening due on 07/04/2028 Bone Density Screening Completed Influenza Vaccine Completed Hepatitis C Screening Completed Shingrix Vaccine Completed Pneumococcal Vaccine: 65+ Completed Advance Directive Discussion Discontinued ASSESSMENT/PLAN: 1. Anemia, unspecified type - ICD9: 285.9, ICD10: D64.9 (primary diagnosis) Likely d/t iron deficiency d/t history. Check iron levels with lab work today. Does not tolerate PO iron so if levels are low will likely need iron transfusion d/t hgb level. Occult blood test to look for any source of bleeding -- recent colonoscopy normal in June. US of abdomin stat d/t stated new onset bloating to rule out any bleeding. - IRON AND TIBC - FERRITIN - OCCULT BLD EXAM-DIAG - US ABDOMEN COMPLETE - OCCULT BLD EXAM-DIAG - IMMUNOCHEMICAL FECAL OCCULT BLOOD TEST - OCCULT BLD EXAM-DIAG 2. Abdominal bloating - ICD9: 787.3, ICD10: R14.0 See above. - IRON AND TIBC - FERRITIN - OCCULT BLD EXAM-DIAG - US ABDOMEN COMPLETE - OCCULT BLD EXAM-DIAG - IMMUNOCHEMICAL FECAL OCCULT BLOOD TEST - OCCULT BLD EXAM-DIAG 3. Type 2 diabetes mellitus with stage 3 chronic kidney disease, with long-term current use of insulin, unspecified whether stage 3a or 3b CKD (HCC) - ICD9: 250.40, 585.3, V58.67, ICD10: E11.22, N18.30, Z79.4 Stable. Continue with pharmacy follow-up as scheduled. Continue on current regimen. 4. Dyslipidemia - ICD9: 272.4, ICD10: E78.5 Stop crestor regimen until upcoming appointment with Dr. Pearce on 11/03. If no change in symptoms of myalgia, can discuss restarting regimen then. If improvement in symptoms, will likely need to discontinue crestor all together and change regimen. 5. Myalgia, lower leg - ICD9: 729.1, ICD10: M79.18 See above, #4. RTO in 3 weeks as scheduled, sooner if needed. Prescription instructions reviewed with patient as applicable. Potential red flag symptoms discussed with the patient. Reviewed appropriate action plan to take if red flag symptoms occur. Patient agreeable to treatment plan. Naya Montesinos APRN.DARLENE [address] [place] [address] documented in this encounter [facility] 10-07-2024 Note [facility] 10-07-2024 Telephone encounter Note Spoke with pt and apt booked. Elli Timmons LPN [facility] 10-07-2024 Miscellaneous Notes Spoke with pt and apt booked. Elli Timmons LPN Spoke with pt and apt booked for today. Elli Timmons LPN VM left for patient to call PCP office and ask for a nurse, for message below. Michaela Bates RN Please make patient an BRENDON appt for the anemia with Kesha or Naya to review what is needed next Mariano Pearce DO Patient calls and states that she saw Arthritis doctor, Dr. Herr out of [facility] in [place]. Patient states that she had labs done in the summer time and hemoglobin was around 10. Patient states that she was told that hemoglobin yesterday had dropped to 9. Patient was supposed to contact PCP in regards to labs. Patient has not noticed any blood in stools or stomach cramps. Patient states that her legs will sometimes give out on her. Patient noticed this after starting on Crestor and Zetia. Patient has 3 month follow up appointment with Dr. Pearce on 11/03/2024. Please review and advise, Salma Rodarte, RN documented in this encounter [facility] 10-07-2024 Telephone encounter Note Spoke with pt and apt booked for today. Elli Timmons LPN [facility] 10-07-2024 Telephone encounter Note VM left for patient to call PCP office and ask for a nurse, for message below. Michaela Bates RN [facility] 10-06-2024 Telephone encounter Note Please make patient an BRENDON appt for the anemia with Kesha or Naya to review what is needed next Mariano Pearce DO [facility] 10-06-2024 Telephone encounter Note Patient calls and states that she saw Arthritis doctor, Dr. Herr out of [facility] in [place]. Patient states that she had labs done in the summer time and hemoglobin was around 10. Patient states that she was told that hemoglobin yesterday had dropped to 9. Patient was supposed to contact PCP in regards to labs. Patient has not noticed any blood in stools or stomach cramps. Patient states that her legs will sometimes give out on her. Patient noticed this after starting on Crestor and Zetia. Patient has 3 month follow up appointment with Dr. Pearce on 11/03/2024. Please review and advise, Salma Rodarte RN [facility] 09-30-2024 History of Present illness Narrative Primary Care Pharmacy Visit CC (Reason for Consult): (E11.22, N18.30, Z79.4) Type 2 diabetes mellitus with stage 3 chronic kidney disease, with long-term current use of insulin, unspecified whether stage 3a or 3b CKD (HCC) (primary encounter diagnosis) Goal(s): A1c <7% Last Collaborating Provider Visit: 07/27/24 with DARLENE Ortiz Case is a 73 year old female presenting for follow up visit in person. Patient consents to pharmacy collaborative practice agreement. Last Pharmacy Visit: 09/02/24 HPI: Reports things have been about the same Reports still is without testing supplies. States she called and spoke with Jessie, was first told she needs updated order since it was cancelled on some end. Then spoke to someone saying order was updated and sent in. Received a text today from [employer] that order was shipped. Had new glucometer kit ordered to [facility] recently, however, was told order was not available so did not receive supplies Still has adequate insulin supply Current DM Medications: Basaglar 50 units twice daily Humalog 12 units + sliding scale #1 with meals - taking 14 units with meals Previously Trialed DM Meds: Glipizide - hypoglycemia Metformin ER - GI upset Liraglutide - cost-prohibitive; pt felt it did not offer much BG-lowering Trulicity - stomach issues + HIPOLITO Jardiance - unable to afford (income above eligibility limits for pap) Diet Denies any changes GLYCEMIC CONTROL: Glucometer present at visit: No Hypoglycemia: No Not currently monitoring due to lack of supplies Past medical history reviewed. ALLERGIES Allergen Reactions Crestor [Rosuvastat* Other: See Comments Legs achy Niacin Itching Erythromycin GI Upset Iodine Rash Latex reddness Lescol [Fluvastatin* GI Upset Lipitor [Atorvastat* Intolerance Muscle aching Naprosyn [Naproxen] uncertain Pravastatin Myalgia Arm pain Veltikx-Mlc-Iyd Red* Intolerance Sulfa (Sulfonamide * Hives Trulicity [Dulaglut* GI Upset Vomiting, diarrhea Hospitalized Vibramycin [Doxycyc* GI Upset Vioxx [Rofecoxib] Swelling Zocor [Simvastatin] uncertain Current Outpatient Medications Medication Sig Dispense Refill alcohol swabs (ALCOHOL PADS) Test Four times a day. Insulin Dep? Yes E11.9 DM 2 and E10.9 DM 1 200 Each 5 blood sugar diagnostic (BLOOD GLUCOSE TEST) test strip Test blood sugar(s) four times daily. Dx: Type 2 DM - Uncontrolled E11.65 Insulin: Yes 50 Strip 11 Lancets Test blood sugar(s) four times daily. Dx: Type 2 DM - Uncontrolled E11.65 Insulin: Yes 200 Each 11 clonazePAM (KLONOPIN) 0.5 mg tablet Take 1 tablet by mouth at bedtime as needed for up to 30 days. 30 tablet 1 enalapril (VASOTEC) 20 mg tablet Take 1 tablet by mouth two times a day. 180 tablet 3 ezetimibe (ZETIA) 10 mg tablet Take 1 tablet by mouth once daily. For cholesterol 90 tablet 3 levothyroxine (SYNTHROID) 125 mcg tablet Take on empty stomach. For Thyroid. Take 1 tablet on Friday, Friday, , Friday, Friday. Take a half tablet on Friday and Friday. 30 tablet 2 Blood-Glucose Meter,Continuous (FREESTYLE BETSEY 3 READER) [facility] [place] Use to monitor blood glucose continuously 1 Each 0 Blood-Glucose Sensor (FREESTYLE BETSEY 3 SENSOR) magdi Apply new sensor to back of upper arm every 14 days 6 Each 4 citalopram hydrobromide (CELEXA) 10 mg tablet Take 1 tablet by mouth once daily. 30 tablet 2 insulin glargine (BASAGLAR KWIKPEN U-100 INSULIN) 100 unit/mL (3 mL) Inject 50 Units subcutaneously two times a day. 90 mL 4 omeprazole (PRILOSEC) 40 mg capsule Take 1 capsule by mouth once daily. 90 capsule 3 rosuvastatin (CRESTOR) 5 mg tablet Take 1 tablet by mouth daily at bedtime. 90 tablet 5 metoprolol tartrate, short acting, (LOPRESSOR) 100 mg tablet Take 1 tablet by mouth two times a day. 180 tablet 3 insulin lispro (HUMALOG KWIKPEN INSULIN) 100 unit/mL Inject 10 units with breakfast, 16 units with lunch, and 16 units with dinner + sliding scale insulin (1 unit for every 50 >150 pts). Gets through 3 [facility]. flash glucose sensor (FREESTYLE BETSEY 14 DAY SENSOR) kit Type 2 diabetes uncontrolled, insulin dependent, Apply sensor to back of arm to check blood sugars as directed. Change sensor every 2 weeks and rotate arms. 6 Kit 2 Triamcinolone Acetonide 0.05 % oint Apply to affected area. omega-3 DHA-EPA (FISH OIL) 1,200 (144-216) mg capsule Take 1 capsule by mouth once daily. Insulin [place], Disposable, (BD ULTRA-FINE PATRICIO PEN NEEDLE) 32 gauge x 5/32 Use 4 pen needles daily with Basaglar and Humalog 360 Each 3 flash glucose scanning reader (FREESTYLE BETSEY 14 DAY READER) Use to check blood sugar as directed. 1 Each 0 colchicine (COLCRYS) 0.6 mg tablet Take 1 tablet by mouth twice daily. For acute gout flare up 14 tablet 1 apremilast (OTEZLA) 30 mg tablet Take 30 mg by mouth once daily. cholecalciferol (VITAMIN D3) 50 mcg (2,000 unit) tablet Take one tablet by mouth once daily Friday through Friday. No current facility-administered medications for this visit. Pill bottles are not present. Adherence: denies missed doses. Rx coverage: Payor: [facility] MEDICARE / Plan: [facility] [employer] HMO / Product Type: HMO / Medications affordable? Enrolled in [employer] (Basaglar and Humalog) PHARMACOTHERAPY PREVENTATIVE MEDS: On STEPHANIA/ARB: Yes On Statin: Yes On ASA: No EXAM: There were no vitals taken for this visit. Last 3 Encounter BP Readings: Date: BP: 07/27/2024 124/82 04/23/2024 124/72 01/15/2024 118/84 Wt: 77.9 kg (171 lb 12.8 oz) BMI: 31.42 kg/(m^2) LABS: Lab Results Component Value Date HBA1C 10.9 07/26/2024 HBA1C 9.2 04/07/2024 HBA1C 9.0 01/08/2024 HBA1C 7.1 07/30/2023 HBA1C 7.9 06/01/2021 HBA1C 8.5 02/27/2021 HBA1C 8.0 11/03/2020 Glucose 335 07/27/2024 BUN 17 07/27/2024 Creatinine 1.08 07/27/2024 Sodium 135 07/27/2024 Potassium 4.9 07/27/2024 Chloride 101 07/27/2024 CO2 25 07/27/2024 Protein, Total 6.7 07/27/2024 Albumin 3.8 07/27/2024 Calcium 9.9 07/27/2024 Alkaline Phosphatase 162 07/27/2024 Bilirubin, Total 0.4 07/27/2024 AST 37 07/27/2024 ALT 30 07/27/2024 Lab Results Component Value Date CHOL 116 01/08/2024 CHOL 213 11/03/2020 CHOL 195 08/03/2020 LDL 53 01/08/2024 LDL 116 11/03/2020 LDL 105 08/03/2020 HDL 33 01/08/2024 HDL 34 11/03/2020 HDL 34 08/03/2020 TG 150 01/08/2024 TG 314 11/03/2020 TG 279 08/03/2020 Albumin/Creat Ratio (mg/g) Date Value 07/26/2024 171 (H) eGFR-All Other Races (.) Date Value 06/01/2021 49 Estimated Glomerular Filtration Rate (mL/min/1.73m ) Date Value 07/27/2024 55 ASSESSMENT/PLAN: 1. Type 2 diabetes mellitus with stage 3 chronic kidney disease, with long-term current use of insulin, unspecified whether stage 3a or 3b CKD (HCC) - ICD9: 250.40, 585.3, V58.67, ICD10: E11.22, N18.30, Z79.4 - Uncontrolled - Continue current medications - Statin prescribed - rosuvastatin - Blood glucose monitoring on a continuous glucose monitoring schedule. Sent Rx for regular testing supplies to have while awaiting new CGM order from DME. - Counseled on healthy diet and regular exercise - Discussed diabetic education issues of diabetes complications and monitoring required and hypoglycemic/hyperglycemic symptoms - Follow up in 2 months, sooner should any other issues arise. - Due for A1c ~10/25/24 - Received patient signature for [employer] PAP 2024 renewal; will fax to pharmacy PAP team for application completion and follow up. Follow Up: Next PCP visit: 11/03/24 Next PharmD visit: 12/02/24 Greta Watts, [place], BCACP Primary Care Clinical Law Writer I spent a total of 30 minutes on the date of the service which included preparing to see the patient, [id number] patient care, completing clinical documentation, counseling and educating the patient/family/caregiver, and ordering medications, tests, or procedures. documented in this encounter [facility] 09-30-2024 Instructions Greta Watts RPh - 09/30/2024 1:00 PM EST Get A1c lab done before upcoming appointment with Dr. Pearce New prescriptions for regular testing supplies sent to [facility] today documented in this encounter [facility] 09-30-2024 Note [facility] 09-23-2024 Telephone encounter Note Pt states she hasn't had her Freestyle Betsey since summer, because she has been trying to get it from [facility]. Pt states she has not been taking her BS this whole time. Pt denies having a glucometer. I told jone you should always have a glucometer incase your Betsey isn't working correctly. Please send in for Pt. The patient has been identified by name and date of : Yes Caregiver verified no other encounters exist for this prescription request: Yes Caregiver confirmed with patient/requestor that no other refills are due, in the near future, with this provider at this time: Yes The last office visit in the department: 07/27/2024 Does the patient have a future office visit with this provider/department: Yes 11/03/2024 Requested Prescriptions Signed Prescriptions Disp Refills Lancets 200 Each 11 Sig: Test Four times a day. Insulin Dep? Yes E11.9 DM 2 Authorizing Provider: MARIANO PEARCE Ordering User: VANESSA WYATT alcohol swabs (ALCOHOL PADS) 200 Each 5 Sig: Test Four times a day. Insulin Dep? Yes E11.9 DM 2 and E10.9 DM 1 Authorizing Provider: MARIANO PEARCE Ordering User: VANESSA WYATT Blood Glucose Control, Normal (GLUCOSE CONTROL) soln 1 Each 11 Sig: Test Four times a day. Insulin Dep? Yes E11.9 DM 2 Authorizing Provider: MARIANO PEARCE Ordering User: VANESSA WYATT Blood-Glucose Meter 1 Each 0 Sig: Test Four times a day. Insulin Dep? Yes E11.9 DM 2 Authorizing Provider: MARIANO PEARCE Ordering User: VANESSA WYATT blood sugar diagnostic (BLOOD GLUCOSE TEST) test strip 200 Each 11 Sig: Test Four times a day. Insulin Dep? Yes E11.9 DM 2 Authorizing Provider: MARIANO PEARCE Ordering User: VANESSA WYATT RN September 23, 2024 4:06 PM [facility] 09-23-2024 Miscellaneous Notes Pt states she hasn't had her Freestyle Betsey since summer, because she has been trying to get it from [facility]. Pt states she has not been taking her BS this whole time. Pt denies having a glucometer. I told jone you should always have a glucometer incase your Betsey isn't working correctly. Please send in for Pt. The patient has been identified by name and date of : Yes Caregiver verified no other encounters exist for this prescription request: Yes Caregiver confirmed with patient/requestor that no other refills are due, in the near future, with this provider at this time: Yes The last office visit in the department: 07/27/2024 Does the patient have a future office visit with this provider/department: Yes 11/03/2024 Requested Prescriptions Signed Prescriptions Disp Refills Lancets 200 Each 11 Sig: Test Four times a day. Insulin Dep? Yes E11.9 DM 2 Authorizing Provider: MARIANO PEARCE Ordering User: VANESSA WYATT alcohol swabs (ALCOHOL PADS) 200 Each 5 Sig: Test Four times a day. Insulin Dep? Yes E11.9 DM 2 and E10.9 DM 1 Authorizing Provider: MARIANO PEARCE Ordering User: VANESSA WYATT Blood Glucose Control, Normal (GLUCOSE CONTROL) soln 1 Each 11 Sig: Test Four times a day. Insulin Dep? Yes E11.9 DM 2 Authorizing Provider: MARIANO PEARCE Ordering User: VANESSA WYATT Blood-Glucose Meter 1 Each 0 Sig: Test Four times a day. Insulin Dep? Yes E11.9 DM 2 Authorizing Provider: MARIANO PEARCE Ordering User: VANESSA WYATT blood sugar diagnostic (BLOOD GLUCOSE TEST) test strip 200 Each 11 Sig: Test Four times a day. Insulin Dep? Yes E11.9 DM 2 Authorizing Provider: MARIANO PEARCE Ordering User: VANESSA WYATT RN September 23, 2024 4:06 PM documented in this encounter [facility] 09-06-2024 Telephone encounter [facility] Betsey [facility]. States received order for Betsey 3 sensors; however, need order for reader. Chart notes up to date for order until 10/2024; however, will need updated PA approval which will be completed once order is received. Will [facility] Freestyle Betsey [facility] Greta Watts PharmD, LES Primary Care Clinical Law Writer [facility] Work Phone: 09-06-2024 Miscellaneous Notes Spoke with [facility] regarding Betsey order. States received order for Betsey 3 sensors; however, need order for reader. Chart notes up to date for order until 10/2024; however, will need updated PA approval which will be completed once order is received. Will send Freestyle Betsey 3 order electronically to [facility]. Greta Watts PharmD, LES Primary Care Clinical Law Writer documented in this encounter [facility] 09-02-2024 History of Present illness Narrative Primary Care Pharmacy Visit CC (Reason for Consult): (E11.22, N18.30, Z79.4) Type 2 diabetes mellitus with stage 3 chronic kidney disease, with long-term current use of insulin, unspecified whether stage 3a or 3b CKD (HCC) (primary encounter diagnosis) Goal(s): A1c <7% Last Collaborating Provider Visit: 07/27/24 with DARLENE Ortiz Case is a 73 year old female presenting for follow up visit in person. Patient consents to pharmacy collaborative practice agreement. Last Pharmacy Visit: 07/01/24 - A1c ordered, Humalog increased to 12 units + sliding scale with meals HPI: Reports doing okay Have not been able to take her BGs recently. Have been trying to get a new reader which won't work. Betsey dale won't register with sensors. Spoke with someone at [facility], and was told she is due for a new reader and is eligible for an upgrade but has not received anything yet. Was getting supplies through [facility]. Was told a new reader would be sent out August 25 but never received replacement reader or anything else. Last heard from [facility] a couple weeks ago Prefers to continue using reader vs with phone Current DM Medications: Basaglar 50 units twice daily Humalog 12 units + sliding scale #1 with meals - taking 16 units with meals Previously Trialed DM Meds: Glipizide - hypoglycemia Metformin ER - GI upset Liraglutide - cost-prohibitive; pt felt it did not offer much BG-lowering Trulicity - stomach issues + HIPOLITO Jardiance - unable to afford (income above eligibility limits for pap) GLYCEMIC CONTROL: Glucometer present at visit: No Hypoglycemia: No No recent data available Past medical history reviewed. ALLERGIES Allergen Reactions Crestor [Rosuvastat* Other: See Comments Legs achy Niacin Itching Erythromycin GI Upset Iodine Rash Latex reddness Lescol [Fluvastatin* GI Upset Lipitor [Atorvastat* Intolerance Muscle aching Naprosyn [Naproxen] uncertain Pravastatin Myalgia Arm pain Mytcsxf-[id number] Red* Intolerance Sulfa (Sulfonamide * Hives Trulicity [Dulaglut* GI Upset Vomiting, diarrhea Hospitalized Vibramycin [Doxycyc* GI Upset Vioxx [Rofecoxib] Swelling Zocor [Simvastatin] uncertain Current Outpatient Medications Medication Sig Dispense Refill clonazePAM (KLONOPIN) 0.5 mg tablet Take 1 tablet by mouth at bedtime as needed for up to 30 days. 30 tablet 1 enalapril (VASOTEC) 20 mg tablet Take 1 tablet by mouth two times a day. 180 tablet 3 ezetimibe (ZETIA) 10 mg tablet Take 1 tablet by mouth once daily. For cholesterol 90 tablet 3 levothyroxine (SYNTHROID) 125 mcg tablet Take on empty stomach. For Thyroid. Take 1 tablet on Friday, Friday, , Friday, Friday. Take a half tablet on Friday and Friday. 30 tablet 2 Blood-Glucose Meter,Continuous (FREESTYLE BETSEY 3 READER) [facility] [place] Use to monitor blood glucose continuously 1 Each 0 Blood-Glucose Sensor (FREESTYLE BETSEY 3 SENSOR) magdi Apply new sensor to back of upper arm every 14 days 6 Each 4 Lancets Test blood sugar(s) four times daily. Dx: Type 2 DM - Uncontrolled E11.65 Insulin: Yes 100 Each 11 blood sugar diagnostic (BLOOD GLUCOSE TEST) test strip Test blood sugar(s) four times daily. Dx: Type 2 DM - Uncontrolled E11.65 Insulin: Yes 50 Strip 11 citalopram hydrobromide (CELEXA) 10 mg tablet Take 1 tablet by mouth once daily. 30 tablet 2 insulin glargine (BASAGLAR KWIKPEN U-100 INSULIN) 100 unit/mL (3 mL) Inject 50 Units subcutaneously two times a day. 90 mL 4 omeprazole (PRILOSEC) 40 mg capsule Take 1 capsule by mouth once daily. 90 capsule 3 rosuvastatin (CRESTOR) 5 mg tablet Take 1 tablet by mouth daily at bedtime. 90 tablet 5 metoprolol tartrate, short acting, (LOPRESSOR) 100 mg tablet Take 1 tablet by mouth two times a day. 180 tablet 3 insulin lispro (HUMALOG KWIKPEN INSULIN) 100 unit/mL Inject 10 units with breakfast, 16 units with lunch, and 16 units with dinner + sliding scale insulin (1 unit for every 50 >150 pts). Gets through [facility]. flash glucose sensor (FREESTYLE BETSEY 14 DAY SENSOR) kit Type 2 diabetes uncontrolled, insulin dependent, Apply sensor to back of arm to check blood sugars as directed. Change sensor every 2 weeks and rotate arms. 6 Kit 2 Triamcinolone Acetonide 0.05 % oint Apply to affected area. omega-3 DHA-EPA (FISH OIL) 1,200 (144-216) mg capsule Take 1 capsule by mouth once daily. Insulin [place], Disposable, (BD ULTRA-FINE PATRICIO PEN NEEDLE) 32 gauge x 5/32 Use 4 pen needles daily with Basaglar and Humalog 360 Each 3 flash glucose scanning reader (FREESTYLE BETSEY 14 DAY READER) Use to check blood sugar as directed. 1 Each 0 colchicine (COLCRYS) 0.6 mg tablet Take 1 tablet by mouth twice daily. For acute gout flare up 14 tablet 1 apremilast (OTEZLA) 30 mg tablet Take 30 mg by mouth once daily. cholecalciferol (VITAMIN D3) 50 mcg (2,000 unit) tablet Take one tablet by mouth once daily Friday through Friday. No current facility-administered medications for this visit. Pill bottles are not present. Adherence: denies missed doses. Rx coverage: Payor: [place] MEDICARE / Plan: [place] [employer] HMO / Product Type: HMO / Medications affordable? Enrolled in [employer] (Basaglar and Humalog) PHARMACOTHERAPY PREVENTATIVE MEDS: On STEPHANIA/ARB: Yes On Statin: Yes On ASA: No EXAM: There were no vitals taken for this visit. Last 3 Encounter BP Readings: Date: BP: 07/27/2024 124/82 04/23/2024 124/72 01/15/2024 118/84 Wt: 77.9 kg (171 lb 12.8 oz) BMI: 31.42 kg/(m^2) LABS: Lab Results Component Value Date HBA1C 10.9 07/26/2024 HBA1C 9.2 04/07/2024 HBA1C 9.0 01/08/2024 HBA1C 7.1 07/30/2023 HBA1C 7.9 06/01/2021 HBA1C 8.5 02/27/2021 HBA1C 8.0 11/03/2020 Glucose 335 07/27/2024 BUN 17 07/27/2024 Creatinine 1.08 07/27/2024 Sodium 135 07/27/2024 Potassium 4.9 07/27/2024 Chloride 101 07/27/2024 CO2 25 07/27/2024 Protein, Total 6.7 07/27/2024 Albumin 3.8 07/27/2024 Calcium 9.9 07/27/2024 Alkaline Phosphatase 162 07/27/2024 Bilirubin, Total 0.4 07/27/2024 AST 37 07/27/2024 ALT 30 07/27/2024 Lab Results Component Value Date CHOL 116 01/08/2024 CHOL 213 11/03/2020 CHOL 195 08/03/2020 LDL 53 01/08/2024 LDL 116 11/03/2020 LDL 105 08/03/2020 HDL 33 01/08/2024 HDL 34 11/03/2020 HDL 34 08/03/2020 TG 150 01/08/2024 TG 314 11/03/2020 TG 279 08/03/2020 Albumin/Creat Ratio (mg/g) Date Value 07/26/2024 171 (H) eGFR-All Other Races (.) Date Value 06/01/2021 49 Estimated Glomerular Filtration Rate (mL/min/1.73m ) Date Value 07/27/2024 55 ASSESSMENT/PLAN: 1. Type 2 diabetes mellitus with stage 3 chronic kidney disease, with long-term current use of insulin, unspecified whether stage 3a or 3b CKD (HCC) - ICD9: 250.40, 585.3, V58.67, ICD10: E11.22, N18.30, Z79.4 - Uncontrolled; CGM/SMBG data unavailable for review - Continue current medications - Statin prescribed - rosuvastatin - Blood glucose monitoring on a continuous glucose monitoring schedule - Counseled on healthy diet and regular exercise - Discussed diabetic education issues of hypoglycemic/hyperglycemic symptoms - Follow up in 1 month, sooner should any other issues arise. - Will reach out to [facility] regarding status of Betsey 3 order Follow Up: Next PCP visit: 11/03/24 Next PharmD visit: 09/30/24 Greta Watts, ChristoD, BCACP Primary Care Clinical Law Writer I spent a total of 30 minutes on the date of the service which included preparing to see the patient, [id number] patient care, completing clinical documentation, and counseling and educating the patient/family/caregiver. documented in this encounter [facility] 09-02-2024 Instructions Greta Watts RPh - 09/02/2024 1:00 PM EDT Bring in copy of income documents to next visit documented in this encounter [facility] 08-24-2024 Telephone encounter Note PDMP website checked and validated. All prescriptions have been APPROPRIATELY filled. No suspicious activity was identified. 08/24/2024 by Mariano Pearce, DO The following approved medication requests have been transmitted electronically. Requested Prescriptions Signed Prescriptions Disp Refills clonazePAM (KLONOPIN) 0.5 mg tablet 30 tablet 1 Sig: Take 1 tablet by mouth at bedtime as needed for up to 30 days. Authorizing Provider: MARIANO PEARCE enalapril (VASOTEC) 20 mg tablet 180 tablet 3 Sig: Take 1 tablet by mouth two times a day. Authorizing Provider: MARIANO PEARCE ezetimibe (ZETIA) 10 mg tablet 90 tablet 3 Sig: Take 1 tablet by mouth once daily. For cholesterol Authorizing Provider: MARIANO PEARCE DO [facility] 08-24-2024 Miscellaneous Notes PDMP website checked and validated. All prescriptions have been APPROPRIATELY filled. No suspicious activity was identified. 08/24/2024 by Mariano Pearce DO The following approved medication requests have been transmitted electronically. Requested Prescriptions Signed Prescriptions Disp Refills clonazePAM (KLONOPIN) 0.5 mg tablet 30 tablet 1 Sig: Take 1 tablet by mouth at bedtime as needed for up to 30 days. Authorizing Provider: MARIANO PEARCE enalapril (VASOTEC) 20 mg tablet 180 tablet 3 Sig: Take 1 tablet by mouth two times a day. Authorizing Provider: MARIANO PEARCE ezetimibe (ZETIA) 10 mg tablet 90 tablet 3 Sig: Take 1 tablet by mouth once daily. For cholesterol Authorizing Provider: MARIANO PEARCE DO The patient has been identified by name and date of : Yes Caregiver verified no other encounters exist for this prescription request: Yes Caregiver confirmed with patient/requestor that no other refills are due, in the near future, with this provider at this time: Yes The last office visit in the department: 07/27/2024 Does the patient have a future office visit with this provider/department: Yes 11/03/2024 Requested Prescriptions Pending Prescriptions Disp Refills clonazePAM (KLONOPIN) 0.5 mg tablet 30 tablet 0 Sig: Take 1 tablet by mouth at bedtime as needed for up to 30 days. enalapril (VASOTEC) 20 mg tablet 180 tablet 3 Sig: Take 1 tablet by mouth two times a day. ezetimibe (ZETIA) 10 mg tablet 90 tablet 3 Sig: Take 1 tablet by mouth once daily. For cholesterol Salma Rodarte RN August 24, 2024 11:03 AM documented in this encounter [facility] 08-24-2024 Telephone encounter Note The patient has been identified by name and date of : Yes Caregiver verified no other encounters exist for this prescription request: Yes Caregiver confirmed with patient/requestor that no other refills are due, in the near future, with this provider at this time: Yes The last office visit in the department: 07/27/2024 Does the patient have a future office visit with this provider/department: Yes 11/03/2024 Requested Prescriptions Pending Prescriptions Disp Refills clonazePAM (KLONOPIN) 0.5 mg tablet 30 tablet 0 Sig: Take 1 tablet by mouth at bedtime as needed for up to 30 days. enalapril (VASOTEC) 20 mg tablet 180 tablet 3 Sig: Take 1 tablet by mouth two times a day. ezetimibe (ZETIA) 10 mg tablet 90 tablet 3 Sig: Take 1 tablet by mouth once daily. For cholesterol Salma Rodarte RN August 24, 2024 11:03 AM [facility] 08-04-2024 Telephone encounter Note Spoke with patient. Reviewed medications. Patient reports that pill pack is filled with her pills for the week and she accidentally threw out the bottles. Patient aware that we would not be able to tell her what medications are in the pill pack but she put them in and is fairly confident they are correct. Patient will keep a basket next to [employer] moving forward to put pill bottles in so she doesn't accidentally throw them out. Patient reports that [facility] will be delivering bottles to her next week and no medications were thrown own just the empty bottles. Patient aware that thyroid medication has been sent to [facility]. Patient aware test strips for glucometer have been sent to [facility]. Patient will check with [facility] to see if orders for Betsey are processing as she reports that is where she was told she needed to get them from now [facility] won't supply them. Patient will call back for any further questions or concerns. Closing encounter as nothing further is needed. Zita Vaughan RN [facility] 08-04-2024 Miscellaneous Notes Spoke with patient. Reviewed medications. Patient reports that pill pack is filled with her pills for the week and she accidentally threw out the bottles. Patient aware that we would not be able to tell her what medications are in the pill pack but she put them in and is fairly confident they are correct. Patient will keep a basket next to [employer] moving forward to put pill bottles in so she doesn't accidentally throw them out. Patient reports that [facility] will be delivering bottles to her next week and no medications were thrown own just the empty bottles. Patient aware that thyroid medication has been sent to [facility]. Patient aware test strips for glucometer have been sent to [facility]. Patient will check with [facility] to see if orders for Betsey are processing as she reports that is where she was told she needed to get them from now [facility] won't supply them. Patient will call back for any further questions or concerns. Closing encounter as nothing further is needed. Zita Vaughan RN LM for patient to contact office. Glenys Stephenson MA Opal is calling Mariano Pearce DO today with concern regarding patient is confused on her medication and has thrown away the bottles the pills were in and confused now on what the medications are.patient put the medications in her weekly pill containers. Patient also notes she has a defective sensor to read her blood sugars noting that 3 times the sensors do not work. Patient has not had her thyroid medication for one week (this noted on another encounter today by me) Patient asking for nurse to call please Patient has been identified by name and birthdate. Duration of symptoms: several weeks Person calling: self Call patient at: on cell [phone] (cell) Was an appointment scheduled: No Closing statement: Results or non-symptom based questions: Thank you for calling [facility], your call will be returned within the next business day. Rosalva Lin documented in this encounter [facility] 08-04-2024 Telephone encounter Note LM for patient to contact office. Glenys Stephenson MA [facility] 08-04-2024 Telephone encounter Note The following approved medication requests have been transmitted electronically. Requested Prescriptions Signed Prescriptions Disp Refills levothyroxine (SYNTHROID) 125 mcg tablet 30 tablet 2 Sig: Take on empty stomach. For Thyroid. Take 1 tablet on Friday, Friday, , Friday, Friday. Take a half tablet on Friday and Friday. Authorizing Provider: KEATON SHANNON PA-C [facility] 08-04-2024 Miscellaneous Notes The following approved medication requests have been transmitted electronically. Requested Prescriptions Signed Prescriptions Disp Refills levothyroxine (SYNTHROID) 125 mcg tablet 30 tablet 2 Sig: Take on empty stomach. For Thyroid. Take 1 tablet on Friday, Friday, , Friday, Friday. Take a half tablet on Friday and Friday. Authorizing Provider: KEATON SHANNON PA-C Patient calling to check the status of this medication and states she has been out of this medication for one week-levothyroxine please fill today at [facility] Patient returns call and provider message reviewed. Patient reports that she is taking synthroid as prescribed. Pended medication. Patient also asking for replacement medication for chronic insomnia since clonazepam is not being covered by insurance which was replacement for lorazepam. Please review and advise, Zita Vaughan RN Message left to return call. Please let patient know that her TSH is still just slightly low, indicating too much thyroid medication. Please confirm she is taking levothyroxine 125 mcg - 1 tablet Friday through Friday and 0.5 Tablet on Sundays. If yes, I would change to 0.5 tablet Wednesdays and Sundays and 1 tablet Friday, Friday, , Friday, and Friday. Please confirm and I will send a refill with new instructions. Keaton Shannon PA-C Patient reports she has not taken her thyroid medication in 2 days. She wonders is provider waiting for lab results before sending in new Rx to [facility]? Please advise patient on thyroid lab results and send new Rx to pharmacy. Patient reports provider d/c'd lorazepam and order xanax in it's place. Reports the xanax was denied by her insurance. Advised patient per 07-27-24 encounter, provider is aware xanax is not covered and sent klonopin in place of it to [facility]. Please phone patient on cell with any questions. documented in this encounter [facility] 08-04-2024 Telephone encounter Note Opal is calling Mariano Pearce DO today with concern regarding patient is confused on her medication and has thrown away the bottles the pills were in and confused now on what the medications are.patient put the medications in her weekly pill containers. Patient also notes she has a defective sensor to read her blood sugars noting that 3 times the sensors do not work. Patient has not had her thyroid medication for one week (this noted on another encounter today by me) Patient asking for nurse to call please Patient has been identified by name and birthdate. Duration of symptoms: several weeks Person calling: self Call patient at: on cell [phone] (cell) Was an appointment scheduled: No Closing statement: Results or non-symptom based questions: Thank you for calling [facility], your call will be returned within the next business day. Rosalva Lin [facility] 08-04-2024 Telephone encounter Note Patient calling to check the status of this medication and states she has been out of this medication for one week-levothyroxine please fill today at [facility] 08-03-2024 Telephone encounter Note Both rx set to print to be faxed t the [facility]. The PA will be completed by the [facility]. [facility] 08-03-2024 Miscellaneous Notes Both rx set to print to be faxed t the [facility]. The PA will be completed by the [facility]. Tabitha from [facility] calls and states that insurance will not cover Freestyle Betsey 3 reader and sensor if it is sent to [facility]. Tabitha reports that prescription needs to be sent to [facility] . This will also need a prior authorization to be done. Please review and advise, Salma Rodarte RN documented in this encounter [facility] 08-03-2024 Telephone encounter Note Tabitha from [facility] calls and states that insurance will not cover Freestyle Betsey 3 reader and sensor if it is sent to [facility]. Tabitha reports that prescription needs to be sent to [facility] . This will also need a prior authorization to be done. Please review and advise, Salma Rodarte RN [facility] 08-02-2024 Telephone encounter Note Patient returns call and provider message reviewed. Patient reports that she is taking synthroid as prescribed. Pended medication. Patient also asking for replacement medication for chronic insomnia since clonazepam is not being covered by insurance which was replacement for lorazepam. Please review and advise, Zita Vaughan RN [facility] 08-02-2024 Telephone encounter Note Message left to return call. [facility] 08-02-2024 Telephone encounter Note Please let patient know that her TSH is still just slightly low, indicating too much thyroid medication. Please confirm she is taking levothyroxine 125 mcg - 1 tablet Friday through Friday and 0.5 Tablet on Sundays. If yes, I would change to 0.5 tablet Wednesdays and Sundays and 1 tablet Friday, Friday, , Friday, and Friday. Please confirm and I will send a refill with new instructions. Keaton Shannon PA-C [facility] 08-02-2024 Telephone encounter Note Patient reports she has not taken her thyroid medication in 2 days. She wonders is provider waiting for lab results before sending in new Rx to [facility]? Please advise patient on thyroid lab results and send new Rx to pharmacy. Patient reports provider d/c'd lorazepam and order xanax in it's place. Reports the xanax was denied by her insurance. Advised patient per 07-27-24 encounter, provider is aware xanax is not covered and sent klonopin in place of it to [facility] pharmacy. Please phone patient on cell with any questions. T [facility] 07-30-2024 Telephone encounter Note Called and spoke with patient. States her Freestyle Betsey 14 day reader is no longer working. States she called [facility] [employer] and was told this reader was no longer made therefore not able to get a replacement. Currently getting CGM sensors through [facility]. Patient will need new order for updated reader/sensor. Will send orders for Freestyle Betsey 3 reader and sensors to local pharmacy to expedite process of getting new reader as soon as possible. Rx sent to [facility] in [place]. Advised patient to contact office if still unable to get new supplies from pharmacy. Patient verbalized understanding of plan. Greta Watts, PharmD, BCACP Primary Care Clinical Law Writer [facility] Work Phone: 07-30-2024 Miscellaneous Notes Called and spoke with patient. States her Freestyle Betsey 14 day reader is no longer working. States she called [facility] and was told this reader was no longer made therefore not able to get a replacement. Currently getting CGM sensors through [employer]. Patient will need new order for updated reader/sensor. Will send orders for Freestyle Betsey 3 reader and sensors to local pharmacy to expedite process of getting new reader as soon as possible. Rx sent to [facility] in [place]. Advised patient to contact office if still unable to get new supplies from pharmacy. Patient verbalized understanding of plan. Greta Watts, PharmD, BCACP Primary Care Clinical Law Writer Patient calling to ask for [facility] Pharmacist, Greta Watts [facility] to contact her to discuss her concerns. Reports her Betsey 3 Blanding is not working. States it's not showing her any numbers over the last 2 weeks. Patient has not been able to check her blood sugar levels during this time. Pt reports she called the [employer] and they told her they no longer make them and that she will need an alternative ordered. Please call patient at [phone]. Michaela Bates RN documented in this encounter [facility] 07-30-2024 Telephone encounter Note Patient calling to ask for [facility] Pharmacist, Greta Watts [facility] to contact her to discuss her concerns. Reports her Betsey 3 Blanding is not working. States it's not showing her any numbers over the last 2 weeks. Patient has not been able to check her blood sugar levels during this time. Pt reports she called the [employer] and they told her they no longer make them and that she will need an alternative ordered. Please call patient at [phone]. Michaela Bates RN [facility] 07-29-2024 Telephone encounter Note Called and left generic message that Rx's have been sent in as requested on VM. If questions to contact office and speak with Triage Nurse. Lisa Major MA [facility] 07-29-2024 Miscellaneous Notes Called and left generic message that Rx's have been sent in as requested on VM. If questions to contact office and speak with Triage Nurse. Lisa Major MA Left message to return call Trisha Marroquin MA The following approved medication requests have been transmitted electronically. Requested Prescriptions Signed Prescriptions Disp Refills Blood-Glucose Meter,Continuous (FREESTYLE BETSEY 3 READER) misc 1 Each 0 Sig: Use to check blood sugar at least four (4) times daily. Authorizing Provider: DEMETRA NAVARRETE Blood-Glucose Sensor (FREESTYLE BETSEY 3 SENSOR) magdi 6 Each 4 Sig: Apply new sensor every fourteen (14) days to upper arm. Authorizing Provider: DEMETRA NAVARRETE Blood-Glucose Meter monitoring kit 1 Each 0 Sig: Glucose Meter of Choice - Kit - Dx: Type 2 DM - Uncontrolled E11.65 Authorizing Provider: DEMETRA NAVARRETE Lancets 100 Each 11 Sig: Test blood sugar(s) four times daily. Dx: Type 2 DM - Uncontrolled E11.65 Insulin: Yes Authorizing Provider: DEMETRA NAVARRETE blood sugar diagnostic (BLOOD GLUCOSE TEST) test strip 50 Strip 11 Sig: Test blood sugar(s) four times daily. Dx: Type 2 DM - Uncontrolled E11.65 Insulin: Yes Authorizing Provider: DEMETRA NAVARRETE APRN.CNP Pt called and is notified of providers results and instructions. Pt voices understanding. Freestyle Betsey and Sensors have to be sent to DME through Medicare Part B to be covered. Pt said her glucometer had broken and she has no way to check her BS. I told her she should have a glucometer just in case she needs to double check the Betsey. Sending in for all new glucometer and supplies for Pt. Please call Pt once sent. The patient has been identified by name and date of : Yes Caregiver verified no other encounters exist for this prescription request: Yes Caregiver confirmed with patient/requestor that no other refills are due, in the near future, with this provider at this time: Yes The last office visit in the department: 07/27/2024 Does the patient have a future office visit with this provider/department: Yes 11/03/2024 Requested Prescriptions Pending Prescriptions Disp Refills Blood-Glucose Meter,Continuous (FREESTYLE BETSEY 3 READER) misc 1 Each 0 Sig: Use to check blood sugar at least four (4) times daily. Blood-Glucose Sensor (FREESTYLE BETSEY 3 SENSOR) magdi 6 Each 4 Sig: Apply new sensor every fourteen (14) days to upper arm. Blood-Glucose Meter monitoring kit 1 Each 0 Sig: Glucose Meter of Choice - Kit - Dx: Type 2 DM - Uncontrolled E11.65 Lancets 100 Each 11 Sig: Test blood sugar(s) four times daily. Dx: Type 2 DM - Uncontrolled E11.65 Insulin: Yes blood sugar diagnostic (BLOOD GLUCOSE TEST) test strip 50 Strip 11 Sig: Test blood sugar(s) four times daily. Dx: Type 2 DM - Uncontrolled E11.65 Insulin: Yes Vanessa Wyatt RN July 28, 2024 9:09 AM Please let her know that I received her lab results. Her thyroid labs are stable, no need for any changes right now. Her liver enzymes remain elevated and are a little higher than previous. We've done ultrasounds in the past that have showed a fatty liver. Recommend she works on exercise, weight loss, cutting back on fats and carbs in her diet, increasing lean proteins in her diet. This will be helpful for her diabetes as well. Kidney function is stable. Demetra Navarrete APRN.CNP documented in this encounter [facility] 07-28-2024 Telephone encounter Note Left message to return call Trisha Marroquin MA [facility] 07-28-2024 Telephone encounter Note The following approved medication requests have been transmitted electronically. Requested Prescriptions Signed Prescriptions Disp Refills Blood-Glucose Meter,Continuous (FREESTYLE BETSEY 3 READER) misc 1 Each 0 Sig: Use to check blood sugar at least four (4) times daily. Authorizing Provider: DEMETRA NAVARRETE Blood-Glucose Sensor (FREESTYLE BETSEY 3 SENSOR) magdi 6 Each 4 Sig: Apply new sensor every fourteen (14) days to upper arm. Authorizing Provider: DEMETRA NAVARRETE Blood-Glucose Meter monitoring kit 1 Each 0 Sig: Glucose Meter of Choice - Kit - Dx: Type 2 DM - Uncontrolled E11.65 Authorizing Provider: DEMETRA NAVARRETE Lancets 100 Each 11 Sig: Test blood sugar(s) four times daily. Dx: Type 2 DM - Uncontrolled E11.65 Insulin: Yes Authorizing Provider: DEMETRA NAVARRETE blood sugar diagnostic (BLOOD GLUCOSE TEST) test strip 50 Strip 11 Sig: Test blood sugar(s) four times daily. Dx: Type 2 DM - Uncontrolled E11.65 Insulin: Yes Authorizing Provider: DEMETRA NAVARRETE APRN.CNP [facility] 07-28-2024 Telephone encounter Note Pt called and is notified of providers results and instructions. Pt voices understanding. Freestyle Betsey and Sensors have to be sent to DME through Medicare Part B to be covered. Pt said her glucometer had broken and she has no way to check her BS. I told her she should have a glucometer just in case she needs to double check the Betsey. Sending in for all new glucometer and supplies for Pt. Please call Pt once sent. The patient has been identified by name and date of : Yes Caregiver verified no other encounters exist for this prescription request: Yes Caregiver confirmed with patient/requestor that no other refills are due, in the near future, with this provider at this time: Yes The last office visit in the department: 07/27/2024 Does the patient have a future office visit with this provider/department: Yes 11/03/2024 Requested Prescriptions Pending Prescriptions Disp Refills Blood-Glucose Meter,Continuous (FREESTYLE BETSEY 3 READER) misc 1 Each 0 Sig: Use to check blood sugar at least four (4) times daily. Blood-Glucose Sensor (FREESTYLE BETSEY 3 SENSOR) magdi 6 Each 4 Sig: Apply new sensor every fourteen (14) days to upper arm. Blood-Glucose Meter monitoring kit 1 Each 0 Sig: Glucose Meter of Choice - Kit - Dx: Type 2 DM - Uncontrolled E11.65 Lancets 100 Each 11 Sig: Test blood sugar(s) four times daily. Dx: Type 2 DM - Uncontrolled E11.65 Insulin: Yes blood sugar diagnostic (BLOOD GLUCOSE TEST) test strip 50 Strip 11 Sig: Test blood sugar(s) four times daily. Dx: Type 2 DM - Uncontrolled E11.65 Insulin: Yes Vanessa Wyatt RN July 28, 2024 9:09 AM [facility] 07-28-2024 Telephone encounter Note Please let her know that I received her lab results. Her thyroid labs are stable, no need for any changes right now. Her liver enzymes remain elevated and are a little higher than previous. We've done ultrasounds in the past that have showed a fatty liver. Recommend she works on exercise, weight loss, cutting back on fats and carbs in her diet, increasing lean proteins in her diet. This will be helpful for her diabetes as well. Kidney function is stable. Demetra Navarrete APRN.DARLENE [facility] 07-27-2024 Telephone encounter Note Freda at [facility] contacted and given update below. Freda states regarding the Freestyle Betsey 3: They are not able to bill for it-it has go through another pharmacy. Freda will contact patient to see what pharmacy she wants and complete the request. No further action needed from provider at this time. Michaela Bates RN [facility] 07-27-2024 Miscellaneous Notes Freda at [facility] contacted and given update below. Freda states regarding the Freestyle Betsey 3: They are not able to bill for it-it has go through another pharmacy. Freda will contact patient to see what pharmacy she wants and complete the request. No further action needed from provider at this time. Michaela Bates RN Citalopram-yes, 20mg dc'd and cutting back to just the 10mg Alprazolam-we'll d/c this and try clonazepam-this was sent to pharmacy. Is there something else I'm supposed to do or send somewhere else to try to get the Freestyle Betsey 3? I'm not really sure what that means by having to go through Medicare part B. The following approved medication requests have been transmitted electronically. Requested Prescriptions Signed Prescriptions Disp Refills clonazePAM (KLONOPIN) 0.5 mg tablet 30 tablet 0 Sig: Take 1 tablet by mouth at bedtime as needed for up to 30 days. Authorizing Provider: DEMETRA NAVARRETE APRN.CNP Freda with [facility] called in and reports they are not able to bill for the Freestyle Betsey 3 and Sensors, they have to go through Medicare Part B. She reports Pts insurance will not cover the Alprazolam. She states the preferred formulary are Lorazepam, Diazepam, or Clonazepam. She was asking about the Citalopram, if the 20 mg was discontinued or the 10 mg was added on to it. Looking at today's appointment I told her the 20 mg was discontinued. documented in this encounter [facility] 07-27-2024 Telephone encounter Note Citalopram-yes, 20mg dc'd and cutting back to just the 10mg Alprazolam-we'll d/c this and try clonazepam-this was sent to pharmacy. Is there something else I'm supposed to do or send somewhere else to try to get the Freestyle Betsey 3? I'm not really sure what that means by having to go through Medicare part B. The following approved medication requests have been transmitted electronically. Requested Prescriptions Signed Prescriptions Disp Refills clonazePAM (KLONOPIN) 0.5 mg tablet 30 tablet 0 Sig: Take 1 tablet by mouth at bedtime as needed for up to 30 days. Authorizing Provider: DEMETRA NAVARRETE APRN.CNP [facility] 07-27-2024 Telephone encounter Note Freda Nunez called in and reports they are not able to bill for the Freestyle Betsey 3 and Sensors, they have to go through Medicare Part B. She reports Pts insurance will not cover the Alprazolam. She states the preferred formulary are Lorazepam, Diazepam, or Clonazepam. She was asking about the Citalopram, if the 20 mg was discontinued or the 10 mg was added on to it. Looking at today's appointment I told her the 20 mg was discontinued. [facility] 07-27-2024 Instructions Demetra Navarrete APRN.CNP - 07/27/2024 1:48 PM EDT Stop your Ativan (lorazepam), we'll try Xanax (alprazolam) at bedtime to help with your insomnia. Citalopram-for mood-stop the 20mg tablets. I sent in 10mg tablets for you to start taking once daily. documented in this encounter [facility] 07-27-2024 History of Present illness Narrative Chief Complaint Patient presents with: F/U 3 Month: A1c 10.9 HPI Angeli Ramirez Case is a 73 year old female who presents here today for Above Complaints. DM-following up today. Does follow with our pharmacist Greta Watts [facility] for her DM. States her glucometer isn't working-has had this for a long time and seems to not be working. Spoke with his pharmacist who is recommending a newer version. Wondering if there are any of her medications that would cause her to sleep. Goes to bed about 10pm but has trouble falling asleep and could be 2-3am till she falls asleep, then feels like she could sleep until noon. Was on Ambien for sleep but started having weird things happen. Was switched to Ativvan 2mg and this helped for a while-now makes her drowsy for an hour, but then is wide awake and can't fall asleep. Declining sleep study at this time. Past medical history, appointments, medications, allergies reviewed. Previous Medical History PAST MEDICAL HISTORY 04/23/2022: Advance care planning Comment: daughter Rebecca Case is medical POA per patient No date: Allergic rhinitis, cause unspecified Comment: Allergic rhinitis No date: Arthritis No date: Benign hypertensive heart disease without heart failure No date: BPPV (benign paroxysmal positional vertigo) No date: Chronic kidney disease (CKD) stage G3a/A2, moderately decreased glomerular filtration rate (GFR) between 45-59 mL/min/1.73 square meter and albuminuria creatinine ratio between 30-299 mg/g (HCC) No date: Diverticulitis No date: Esophageal reflux No date: Fatty liver No date: Fatty liver No date: Fibromyalgia 07/04/2014: Gastric polyp Comment: Dr. Spence, needs repeat EGD in 01/01 No date: Gout Comment: right great toe No date: Hernia of other specified sites of abdominal cavity without mention of obstruction or gangrene Comment: HIATAL No date: Hypertension No date: IBS (irritable bowel syndrome) No date: Irritable bowel syndrome No date: Leiomyoma of uterus No date: Other and unspecified hyperlipidemia 03/11/2018: PONV (postoperative nausea and vomiting) No date: Renal calculi No date: Snoring No date: Type II or unspecified type diabetes mellitus without mention of complication, not stated as uncontrolled No date: Unspecified hemorrhoids without mention of complication Comment: Hemorrhoids No date: Unspecified hypothyroidism Previous Surgical History PAST SURGICAL HISTORY No date: APPENDECTOMY No date: APPENDECTOMY 07/04/2014: COLONOSCOPY FLX DX W/COLLJ SPEC WHEN PFRMD Comment: Dr. Jordy Camilo 07/04/2023: COLONOSCOPY SCREENING Comment: repeat 5 years 07/04/2023: EGD W/O BRSH SPEC VARICIES INJ Comment: repeat 5 years 07/04/2014: ESOPHAGOGASTRODUODENOSCOPY TRANSORAL DIAGNOSTIC Comment: EGDDr. Spence 05/29/2015: ESOPHAGOGASTRODUODENOSCOPY TRANSORAL DIAGNOSTIC Comment: EGD 06/04/2023: LAPAROSCOPIC CHOLECYSTECTOMY Comment: lap tosha with grams Dr Muro 1989: LAPS ABD PRTM&OMENTUM DX W/WO SPEC BR/WA SPX Comment: Laparoscopy and scar tissue seen No date: LIG/TRNSXJ FLP TUBE ABDL/VAG APPR UNI/BI Comment: Tubal ligation No date: PAST SURGICAL HISTORY OF Comment: CARPEL TUNNEL/BILATERAL 1970: PAST SURGICAL HISTORY OF Comment: exploratory lap and left salpingectomy for bad infection 07/04/2014: POLYPECTOMY SNARE STIFF WIRE Comment: gastric No date: TONSILLECTOMY HX No date: TONSILLECTOMY PRIMARY/SECONDARY <AGE 12 Comment: Tonsillectomy No date: VAGINAL HYSTERECTOMY 03/2018: VAGINAL HYSTERECTOMY UTERUS 250 GM/< Comment: Hysterectomy, vaginal Family History FAMILY HISTORY Problem Relation Age of Onset Hypertension Mother other (DEMENTIA) Mother onset in her 70's Tremor Mother ? Parkinson's Diabetes Father Hypertension Father Lipids Father Anesthesia Problems Sister at 19 yo cardiac arrest during appendectomy, did not survive, 1960's Cancer Maternal Grandmother gallbladder Patient Allergies ALLERGIES Allergen Reactions Crestor [Rosuvastat* Other: See Comments Legs achy Niacin Itching Erythromycin GI Upset Iodine Rash Latex reddness Lescol [Fluvastatin* GI Upset Lipitor [Atorvastat* Intolerance Muscle aching Naprosyn [Naproxen] uncertain Pravastatin Myalgia Arm pain [id number]-Kfw-Cxw Red* Intolerance Sulfa (Sulfonamide * Hives Trulicity [Dulaglut* GI Upset Vomiting, diarrhea Hospitalized Vibramycin [Doxycyc* GI Upset Vioxx [Rofecoxib] Swelling Zocor [Simvastatin] uncertain Current Medications Current Outpatient Medications on File Prior to Visit Medication Sig LORazepam (ATIVAN) 2 mg tab Take 1 tablet by mouth at bedtime as needed for up to 60 days. insulin glargine (BASAGLAR KWIKPEN U-100 INSULIN) 100 unit/mL (3 mL) Inject 50 Units subcutaneously two times a day. levothyroxine (SYNTHROID) 125 mcg tablet Take on empty stomach. For Thyroid. Take 1 tablet on Friday through Friday. Take a half tablet on Sundays. omeprazole (PRILOSEC) 40 mg capsule Take 1 capsule by mouth once daily. rosuvastatin (CRESTOR) 5 mg tablet Take 1 tablet by mouth daily at bedtime. citalopram (CELEXA) 20 mg tablet Take 1 tablet by mouth once daily. metoprolol tartrate, short acting, (LOPRESSOR) 100 mg tablet Take 1 tablet by mouth two times a day. enalapril (VASOTEC) 20 mg tablet Take 1 tablet by mouth two times a day. ezetimibe (ZETIA) 10 mg tablet Take 1 tablet by mouth once daily. For cholesterol insulin lispro (HUMALOG KWIKPEN INSULIN) 100 unit/mL Inject 10 units with breakfast, 16 units with lunch, and 16 units with dinner + sliding scale insulin (1 unit for every 50 >150 pts). Gets through addwish. flash glucose sensor (FREESTYLE BETSEY 14 DAY SENSOR) kit Type 2 diabetes uncontrolled, insulin dependent, Apply sensor to back of arm to check blood sugars as directed. Change sensor every 2 weeks and rotate arms. Triamcinolone Acetonide 0.05 % oint Apply to affected area. Blood-Glucose Meter Use to check blood sugar daily blood sugar diagnostic (BLOOD GLUCOSE TEST) test strip Use to check blood sugar four times daily Lancets lancets Use to check blood sugar four times daily omega-3 DHA-EPA (FISH OIL) 1,200 (144-216) mg capsule Take 1 capsule by mouth once daily. Insulin [place], Disposable, (BD ULTRA-FINE PATRICIO PEN NEEDLE) 32 gauge x 5/32 Use 4 pen needles daily with Basaglar and Humalog flash glucose scanning reader (LivescribeSTYLE BETSEY 14 DAY READER) Use to check blood sugar as directed. colchicine (COLCRYS) 0.6 mg tablet Take 1 tablet by mouth twice daily. For acute gout flare up apremilast (OTEZLA) 30 mg tablet Take 30 mg by mouth once daily. cholecalciferol (VITAMIN D3) 50 mcg (2,000 unit) tablet Take one tablet by mouth once daily Friday through Friday. oxyCODONE-acetaminophen (PERCOCET) 5-325 mg tablet Take 1 tablet by mouth every 8 hours as needed for pain. (Patient not taking: Reported on 04/23/2024) acetaminophen (TYLENOL) 325 mg tablet Take 2 tablets by mouth every 6 hours as needed for Pain. (Patient not taking: Reported on 04/23/2024) No current facility-administered medications on file prior to visit. Social History Social History Tobacco Use Smoking status: Never Smokeless tobacco: Never Vaping Use Vaping status: Never Used Substance Use Topics Alcohol use: No Drug use: No Review of Symptoms REVIEW OF SYSTEMS See HPI, otherwise negative EXAM: BP 124/82 (BP Site: Left Arm, BP Position: Sitting, BP Cuff Size: Regular Adult) Pulse 60 Resp 16 Wt 77.9 kg (171 lb 12.8 oz) SpO2 93% BMI 31.42 kg/m General Appearance: Well appearing, alert, in no acute distress, well-hydrated, well nourished. and Obese. Lungs: Lungs clear to auscultation. No wheezing, rhonchi, rales.. Heart: RRR without murmur, gallop, or rubs. No ectopy. Psychiatric: pleasant, cooperative. Health Maintenance List Depression Screening Never done RSV Vaccine(1 - 1-dose 60+ series) Never done Cervical Cancer Screening due on 01/07/2018 Covid-19 Vaccine( season) due on 07/18/2024 Influenza Vaccine(1) due on 07/18/2024 Diabetic Foot Exam due on 07/30/2024 HbA1C due on 10/25/2024 Dilated Retinal Exam due on 12/18/2024 LDL Cholesterol due on 01/08/2025 Serum Creatinine due on 01/08/2025 Mammogram Screening due on 02/25/2025 Annual PCP Team Chronic Disease Visit due on 04/23/2025 Hemoglobin/Hematocrit due on 04/23/2025 BP Controlled (<130/80) due on 04/23/2025 Urine Albumin:Creatinine Ratio due on 07/26/2025 DTaP,Tdap,Td Vaccine(2 - Td or Tdap) due on 09/18/2025 Colorectal Cancer Screening due on 07/04/2028 Bone Density Screening Completed Hepatitis C Screening Completed Shingrix Vaccine Completed Pneumococcal Vaccine: 65+ Completed Advance Directive Discussion Discontinued Data reviewed Previous records, office notes, PDMP PDMP website checked and validated. All prescriptions have been APPROPRIATELY filled. No suspicious activity was identified. 07/27/2024 by Demetra Navarrete CNP. ASSESSMENT/PLAN: 1. Type 2 diabetes mellitus with stage 3 chronic kidney disease, with long-term current use of insulin, unspecified whether stage 3a or 3b CKD (HCC) - ICD9: 250.40, 585.3, V58.67, ICD10: E11.22, N18.30, Z79.4 (primary diagnosis) - FREESTYLE BETSEY 3 READER - FREESTYLE BETSEY 3 SENSOR DEVICE - COMPLETE BLOOD COUNT - COMPREHENSIVE METABOLIC PANEL 2. Acquired hypothyroidism - ICD9: 244.9, ICD10: E03.9 - THYROID STIMULATING HORMONE - T4 FREE/FREE THYROXINE 3. Hypertension, unspecified type - ICD9: 401.9, ICD10: I10 - Controlled - Continue current medications - Recommend home blood pressure monitoring, to bring results to next visit - Encouraged sodium restriction, DASH or Mediterranean diet - Recommend regular aerobic exercise - COMPLETE BLOOD COUNT - COMPREHENSIVE METABOLIC PANEL 4. Chronic insomnia - ICD9: 780.52, ICD10: F51.04 Suspect daytime sleepiness is secondary to poor sleep, suspect SALVATORE. Declining sleep study. Was previously using lorazepam 2mg nightly for sleep but this is not working anymore. She will stop the lorazepam and begin alprazolam prn at bedtime. - ALPRAZOLAM 1 MG TABLET 5. Daytime sleepiness - ICD9: 780.54, ICD10: R40.0 Suspect daytime sleepiness is secondary to poor sleep, suspect SALVATORE. Declining sleep study. Was previously using lorazepam 2mg nightly for sleep but this is not working anymore. She will stop the lorazepam and begin alprazolam prn at bedtime. - ALPRAZOLAM 1 MG TABLET Demetra Navarrete APRN.CNP documented in this encounter [facility] 07-01-2024 Telephone encounter Note The following approved medication requests have been transmitted electronically. Requested Prescriptions Signed Prescriptions Disp Refills LORazepam (ATIVAN) 2 mg tab 30 tablet 1 Sig: Take 1 tablet by mouth at bedtime as needed for up to 60 days. Authorizing Provider: DEMETRA NAVARRETE APRN.CNP PDMP website checked and validated. All prescriptions have been APPROPRIATELY filled. No suspicious activity was identified. 07/01/2024 by Demetra Navarrete CNP. [facility] 07-01-2024 Miscellaneous Notes The following approved medication requests have been transmitted electronically. Requested Prescriptions Signed Prescriptions Disp Refills LORazepam (ATIVAN) 2 mg tab 30 tablet 1 Sig: Take 1 tablet by mouth at bedtime as needed for up to 60 days. Authorizing Provider: DEMETRA NAVARRETE APRN.CNP PDMP website checked and validated. All prescriptions have been APPROPRIATELY filled. No suspicious activity was identified. 07/01/2024 by Demetra Navarrete CNP. The patient has been identified by name and date of : Yes Caregiver verified no other encounters exist for this prescription request: Yes Caregiver confirmed with patient/requestor that no other refills are due, in the near future, with this provider at this time: Yes The last office visit in the department: 04/23/2024 Does the patient have a future office visit with this provider/department: Yes 07/27/2024 Requested Prescriptions Pending Prescriptions Disp Refills LORazepam (ATIVAN) 2 mg tab 30 tablet 1 Sig: Take 1 tablet by mouth at bedtime as needed for up to 60 days. Elli Timmons LPN June 30, 2024 3:14 PM documented in this encounter [facility] 07-01-2024 History of Present illness Narrative Images from the original note were not included. Primary Care Pharmacy Visit CC (Reason for Consult): (E11.22, N18.30, Z79.4) Type 2 diabetes mellitus with stage 3 chronic kidney disease, with long-term current use of insulin, unspecified whether stage 3a or 3b CKD (HCC) (primary encounter diagnosis) Goal(s): A1c <7% Last Collaborating Provider Visit: 04/23/[address] Ramses Ramirez Case is a 73 year old female presenting for follow up visit in person. Patient consents to pharmacy collaborative practice agreement. Last Pharmacy Visit: 06/03/24 - Basaglar increased to 50 units twice daily HPI: Reports doing well States BGs may not be too good but denies any recent changes that may affect readings States is now using [facility] and plans to continue using; likes filling there because they sync up all her medications to avoid confusion Current DM Medications: Basaglar 50 units twice daily Humalog 10 units with breakfast, 16 units with lunch, 16 units with dinner + sliding scale - taking 10 + sliding scale, mostly adding 2-3 units with meals Previously Trialed DM Meds: Glipizide - hypoglycemia Metformin ER - GI upset Liraglutide - cost-prohibitive; pt felt it did not offer much BG-lowering Trulicity - stomach issues + HIPOLITO Jardiance - unable to afford (income above eligibility limits for pap) Diet Denies any recent changes Breakfast - cheerios Lunch - cheese and crackers, or cup of fruit Dinner - largest meal; salmon, baked potato with green beans; salad, spaghetti Drinking water throughout the day Snacks - rarely has any throughout the day, occasionally has M&Ms; typically has peanut butter and crackers or fruit for bedtime snack GLYCEMIC CONTROL: Glucometer present at visit: Yes Hypoglycemia: No CGM Data Past medical history reviewed. ALLERGIES Allergen Reactions Crestor [Rosuvastat* Other: See Comments Legs achy Niacin Itching Erythromycin GI Upset Iodine Rash Latex reddness Lescol [Fluvastatin* GI Upset Lipitor [Atorvastat* Intolerance Muscle aching Naprosyn [Naproxen] uncertain Pravastatin Myalgia Arm pain [id number] Red* Intolerance Sulfa (Sulfonamide * Hives Trulicity [Dulaglut* GI Upset Vomiting, diarrhea Hospitalized Vibramycin [Doxycyc* GI Upset Vioxx [Rofecoxib] Swelling Zocor [Simvastatin] uncertain Current Outpatient Medications Medication Sig Dispense Refill insulin glargine (BASAGLAR KWIKPEN U-100 INSULIN) 100 unit/mL (3 mL) Inject 50 Units subcutaneously two times a day. 90 mL 4 levothyroxine (SYNTHROID) 125 mcg tablet Take on empty stomach. For Thyroid. Take 1 tablet on Friday through Friday. Take a half tablet on Sundays. 30 tablet 2 omeprazole (PRILOSEC) 40 mg capsule Take 1 capsule by mouth once daily. 90 capsule 3 rosuvastatin (CRESTOR) 5 mg tablet Take 1 tablet by mouth daily at bedtime. 90 tablet 5 citalopram (CELEXA) 20 mg tablet Take 1 tablet by mouth once daily. 90 tablet 3 metoprolol tartrate, short acting, (LOPRESSOR) 100 mg tablet Take 1 tablet by mouth two times a day. 180 tablet 3 enalapril (VASOTEC) 20 mg tablet Take 1 tablet by mouth two times a day. 180 tablet 3 ezetimibe (ZETIA) 10 mg tablet Take 1 tablet by mouth once daily. For cholesterol 90 tablet 3 insulin lispro (HUMALOG KWIKPEN INSULIN) 100 unit/mL Inject 10 units with breakfast, 16 units with lunch, and 16 units with dinner + sliding scale insulin (1 unit for every 50 >150 pts). Gets through [employer]. flash glucose sensor (FREESTYLE BETSEY 14 DAY SENSOR) kit Type 2 diabetes uncontrolled, insulin dependent, Apply sensor to back of arm to check blood sugars as directed. Change sensor every 2 weeks and rotate arms. 6 Kit 2 oxyCODONE-acetaminophen (PERCOCET) 5-325 mg tablet Take 1 tablet by mouth every 8 hours as needed for pain. (Patient not taking: Reported on 04/23/2024) Triamcinolone Acetonide 0.05 % oint Apply to affected area. Blood-Glucose Meter Use to check blood sugar daily 1 Each 0 blood sugar diagnostic (BLOOD GLUCOSE TEST) test strip Use to check blood sugar four times daily 400 Each 3 Lancets lancets Use to check blood sugar four times daily 400 Each 3 omega-3 DHA-EPA (FISH OIL) 1,200 (144-216) mg capsule Take 1 capsule by mouth once daily. Insulin [place], Disposable, (BD ULTRA-FINE PATRICIO PEN NEEDLE) 32 gauge x 5/32 Use 4 pen needles daily with Basaglar and Humalog 360 Each 3 flash glucose scanning reader (LivescribeSTYLE BETSEY 14 DAY READER) Use to check blood sugar as directed. 1 Each 0 colchicine (COLCRYS) 0.6 mg tablet Take 1 tablet by mouth twice daily. For acute gout flare up 14 tablet 1 apremilast (OTEZLA) 30 mg tablet Take 30 mg by mouth once daily. acetaminophen (TYLENOL) 325 mg tablet Take 2 tablets by mouth every 6 hours as needed for Pain. (Patient not taking: Reported on 04/23/2024) 60 tablet 0 cholecalciferol (VITAMIN D3) 50 mcg (2,000 unit) tablet Take one tablet by mouth once daily Friday through Friday. No current facility-administered medications for this visit. Pill bottles are not present. Adherence: denies missed doses usually; however, may have missed insulin once or twice but has not happened very often. Occasionally forgets Humalog before meal Rx coverage: Payor: [facility] MEDICARE / Plan: [facility] [place] [place] H[place] / Product Type: O Medications affordable? Enrolled in [employer] PAP (Basaglar and Humalog) PHARMACOTHERAPY PREVENTATIVE MEDS: On STEPHANIA/ARB: Yes On Statin: Yes On ASA: No EXAM: There were no vitals taken for this visit. Last 3 Encounter BP Readings: Date: BP: 04/23/2024 124/72 01/15/2024 118/84 10/15/2023 110/80 Wt: 77.6 kg (171 lb) BMI: 31.28 kg/(m^2) LABS: Lab Results Component Value Date HBA1C 9.2 04/07/2024 HBA1C 9.0 01/08/2024 HBA1C 7.1 07/30/2023 HBA1C 7.6 04/23/2023 HBA1C 7.9 06/01/2021 HBA1C 8.5 02/27/2021 HBA1C 8.0 11/03/2020 Glucose 163 01/08/2024 BUN 16 01/08/2024 Creatinine 1.09 01/08/2024 Sodium 136 01/08/2024 Potassium 4.3 01/08/2024 Chloride 103 01/08/2024 CO2 25 01/08/2024 Protein, Total 6.2 01/08/2024 Albumin 3.8 01/08/2024 Calcium 9.0 01/08/2024 Alkaline Phosphatase 139 01/08/2024 Bilirubin, Total 0.3 01/08/2024 AST 34 01/08/2024 ALT 30 01/08/2024 Lab Results Component Value Date CHOL 116 01/08/2024 CHOL 213 11/03/2020 CHOL 195 08/03/2020 LDL 53 01/08/2024 LDL 116 11/03/2020 LDL 105 08/03/2020 HDL 33 01/08/2024 HDL 34 11/03/2020 HDL 34 08/03/2020 TG 150 01/08/2024 TG 314 11/03/2020 TG 279 08/03/2020 Albumin/Creat Ratio (mg/g) Date Value 07/26/2022 48 (H) eGFR-All Other Races (.) Date Value 06/01/2021 49 Estimated Glomerular Filtration Rate (mL/min/1.73m ) Date Value 01/08/2024 54 ASSESSMENT/PLAN: 1. Type 2 diabetes mellitus with stage 3 chronic kidney disease, with long-term current use of insulin, unspecified whether stage 3a or 3b CKD ([facility]) - ICD9: 250.40, 585.3, V58.67, ICD10: E11.22, N18.30, Z79.4 - Worsening control - Increase Humalog to 12 units plus sliding scale #1 with meals - Continue Basaglar 50 units twice daily - Statin prescribed - rosuvastatin - Blood glucose monitoring on a continuous glucose monitoring schedule - Counseled on healthy diet and regular exercise - Follow up in 2 months, sooner should any other issues arise. - Due for A1c ~07/08/24 - Due for UACR Follow Up: Next PCP visit: 07/27/24 Next PharmD visit: 09/02/24 Greta Watts PharmD, BCACP Primary Care Clinical Law Writer I spent a total of 30 minutes on the date of the service which included preparing to see the patient, [id number] patient care, completing clinical documentation, counseling and educating the patient/family/caregiver, and ordering medications, tests, or procedures. documented in this encounter [facility] 07-01-2024 Instructions Greta Watts RPh - 07/01/2024 1:00 PM EDT Increase Humalog to 12 units plus scale before meals Continue Basaglar 50 units twice daily Gets labs done before your July appointment documented in this encounter [facility] 07-01-2024 Evaluation note Diagnosis Type 2 diabetes mellitus with stage 3 chronic kidney disease, with long-term current use of insulin, unspecified whether stage 3a or 3b CKD (HCC)- Primary documented in this encounter [facility]08-14-2024 Telephone encounter Note* Telephone Encounter - Elli Timmons LPN - 06/30/2024 3:14 PM EDT The patient has been identified by name and date of : Yes Caregiver verified no other encounters exist for this prescription request: Yes Caregiver confirmed with patient/requestor that no other refills are due, in the near future, with this provider at this time: Yes The last office visit in the department: 04/23/2024 Does the patient have a future office visit with this provider/department: Yes 07/27/2024 Requested Prescriptions Pending Prescriptions Disp Refills LORazepam (ATIVAN) 2 mg tab 30 tablet 1 Sig: Take 1 tablet by mouth at bedtime as needed for up to 60 days. Elli Timmons LPN June 30, 2024 3:14 PM [facility]07-18-2024 History of Present illness Narrative* Greta Watts, [facility] - 06/03/2024 1:00 PM EDT Images from the original note were not included. Primary Care Pharmacy Visit CC (Reason for Consult): (E11.22, N18.30, Z79.4) Type 2 diabetes mellitus with stage 3 chronic kidney disease, with long-term current use of insulin, unspecified whether stage 3a or 3b CKD (HCC) (primary encounter diagnosis) Goal(s): A1c <7% Last Collaborating Provider Visit: 04/23/[address] Ramses Ramirez Case is a 73 year old female presenting for follow up visit in person. Patient consents [facility] agreement. . Last Pharmacy Visit: 01/29/24 HPI: Reports doing well Having trouble with Betsey sensor from time to time, had to request a replacement from [employer]. Still using [employer]sey 14-day system Has had delays with Basaglar coming on time as well, was without it for a couple of weeks Noticed higher readings lately, potentially due to being out of Basaglar, has been back on for a couple weeks now Current DM Medications: Basaglar 46 units twice daily Humalog 10 units with breakfast, 16 units with lunch, 16 units with dinner + sliding scale - usually adding 1-2 units from sliding scale Previously Trialed DM Meds: Glipizide - hypoglycemia Metformin ER - GI upset Liraglutide - cost-prohibitive; pt felt it did not offer much BG-lowering Trulicity - stomach issues + HIPOLITO Jardiance - unable to afford (income above eligibility limits for pap) Diet Denies any recent changes GLYCEMIC CONTROL: Glucometer present at visit: Yes Hypoglycemia: No CGM Data Past medical history reviewed. ALLERGIES Allergen Reactions Crestor [Rosuvastat* Other: See Comments Legs achy Niacin Itching Erythromycin GI Upset Iodine Rash Latex reddness Lescol [Fluvastatin* GI Upset Lipitor [Atorvastat* Intolerance Muscle aching Naprosyn [Naproxen] uncertain Pravastatin Myalgia Arm pain Cevqtww-Cfj-Snl Red* Intolerance Sulfa (Sulfonamide * Hives Trulicity [Dulaglut* GI Upset Vomiting, diarrhea Hospitalized Vibramycin [Doxycyc* GI Upset Vioxx [Rofecoxib] Swelling Zocor [Simvastatin] uncertain Current Outpatient Medications Medication Sig Dispense Refill levothyroxine (SYNTHROID) 125 mcg tablet Take on empty stomach. For Thyroid. Take 1 tablet on Friday through Friday. Take a half tablet on Sundays. 30 tablet 2 omeprazole (PRILOSEC) 40 mg capsule Take 1 capsule by mouth once daily. 90 capsule 3 rosuvastatin (CRESTOR) 5 mg tablet Take 1 tablet by mouth daily at bedtime. 90 tablet 5 insulin glargine (BASAGLAR KWIKPEN U-100 INSULIN) 100 unit/mL (3 mL) Inject 46 Units subcutaneouslytwo times a day. 45 mL 1 LORazepam (ATIVAN) 2 mg tab Take 1 tablet by mouth at bedtime as needed for up to 60 days. 30 tablet 1 LORazepam (ATIVAN) 2 mg tab Take 1 tablet by mouth at bedtime as needed for up to 60 days. Do not start before April 25, 2024. 30 tablet 1 citalopram (CELEXA) 20 mg tablet Take 1 tablet by mouth once daily. 90 tablet 3 metoprolol tartrate, short acting, (LOPRESSOR) 100 mg tablet Take 1 tablet by mouth two times a day. 180 tablet 3 enalapril (VASOTEC) 20 mg tablet Take 1 tablet by mouth two times a day. 180 tablet 3 ezetimibe (ZETIA) 10 mg tablet Take 1 tablet by mouth once daily. For cholesterol 90 tablet 3 insulin lispro (HUMALOG KWIKPEN INSULIN) 100 unit/mL Inject 10 units with breakfast, 16 units with lunch, and 16 units with dinner + sliding scale insulin (1 unit for every 50 >150 pts). Gets through [employer]. flash glucose sensor (FREESTYLE BETSEY 14 DAY SENSOR) kit Type 2 diabetes uncontrolled, insulin dependent, Apply sensor to back of arm to check blood sugars as directed. Change sensor every 2 weeks and rotate arms. 6 Kit 2 oxyCODONE-acetaminophen (PERCOCET) 5-325 mg tablet Take 1 tablet by mouth every 8 hours as needed for pain. (Patient not taking: Reported on 04/23/2024) Triamcinolone Acetonide 0.05 % oint Apply to affected area. Blood-Glucose Meter Use to check blood sugar daily 1 Each 0 blood sugar diagnostic (BLOOD GLUCOSE TEST) test strip Use to check blood sugar four times daily 400 Each 3 Lancets lancets Use to check blood sugar four times daily 400 Each 3 omega-3 DHA-EPA (FISH OIL) 1,200 (144-216) mg capsule Take 1 capsule by mouth once daily. Insulin [place], Disposable, (BD ULTRA-FINE PATRICIO PEN NEEDLE) 32 gauge x 5/32 Use 4 pen needles daily with Basaglar and Humalog 360 Each 3 flash glucose scanning reader (FREESTYLE BETSEY 14 DAY READER) Use to check blood sugar as directed.1 Each 0 colchicine (COLCRYS) 0.6 mg tablet Take 1 tablet by mouth twice daily. For acute gout flare up 14 tablet 1 apremilast (OTEZLA) 30 mg tablet Take 30 mg by mouth once daily. acetaminophen (TYLENOL) 325 mg tablet Take 2 tablets by mouth every 6 hours as needed for Pain. (Patient not taking: Reported on 04/23/2024) 60 tablet 0 cholecalciferol (VITAMIN D3) 50 mcg (2,000 unit) tablet Take one tablet by mouth once daily Friday through Friday. No current facility-administered medications for this visit. Pill bottles are not present. Adherence: denies missed doses. Rx coverage: Payor: [facility] MEDIC[facility] / Plan: [facility] [place] [place] [employer] HMO / Product Type: HMO / Medications affordable? Enrolled in [employer] PAP (Basaglar and Humalog) PHARMACOTHERAPY PREVENTATIVE MEDS: On STEPHANIA/ARB: Yes On Statin: Yes On ASA: No EXAM: There were no vitals taken for this visit. Last 3 Encounter BP Readings: Date: BP: 04/23/2024 124/72 01/15/2024 118/84 10/15/2023 110/80 Wt: 77.6 kg (171 lb) BMI: 31.28 kg/(m^2) LABS: Lab Results Component Value Date HBA1C 9.2 04/07/2024 HBA1C 9.0 01/08/2024 HBA1C 7.1 07/30/2023 HBA1C 7.6 04/23/2023 HBA1C 7.9 06/01/2021 HBA1C 8.5 02/27/2021 HBA1C 8.0 11/03/2020 Glucose 163 01/08/2024 BUN 16 01/08/2024 Creatinine 1.09 01/08/2024 Sodium 136 01/08/2024 Potassium 4.3 01/08/2024 Chloride 103 01/08/2024 CO2 25 01/08/2024 Protein, Total 6.2 01/08/2024 Albumin 3.8 01/08/2024 Calcium 9.0 01/08/2024 Alkaline Phosphatase 139 01/08/2024 Bilirubin, Total 0.3 01/08/2024 AST 34 01/08/2024 ALT 30 01/08/2024 Lab Results Component Value Date CHOL 116 01/08/2024 CHOL 213 11/03/2020 CHOL 195 08/03/2020 LDL 53 01/08/2024 LDL 116 11/03/2020 LDL 105 08/03/2020 HDL 33 01/08/2024 HDL 34 11/03/2020 HDL 34 08/03/2020 TG 150 01/08/2024 TG 314 11/03/2020 TG 279 08/03/2020 Albumin/Creat Ratio (mg/g) Date Value 07/26/2022 48 (H) eGFR-All Other Races (.) Date Value 06/01/2021 49 Estimated Glomerular Filtration Rate (mL/min/1.73m ) Date Value 01/08/2024 54 ASSESSMENT/PLAN: 1. Type 2 diabetes mellitus with stage 3 chronic kidney disease, with long-term current use of insulin, unspecified whether stage 3a or 3b CKD (HCC) - ICD9: 250.40, 585.3, V58.67, ICD10: E11.22, N18.30, Z79.4 - Uncontrolled - Increase Basaglar to 50 units twice daily - Continue other medications as currently prescribed - Statin prescribed - rosuvastatin - Blood glucose monitoring on a continuous glucose monitoring schedule - Instructed patient to check with DME if eligible for CGM upgrade - Counseled on healthy diet and regular exercise - Follow up in 1 month, sooner should any other issues arise. Follow Up: Next PCP visit: 07/27/24 Next PharmD visit: 07/01/24 Greta Watts, [place], BCACP Primary Care Clinical Law Writer I spent a total of 30 minutes on the date of the service which included preparing to see the patient, [id number] patient care, completing clinical documentation, counseling and educating the patient/family/caregiver, and ordering medications, tests, or procedures. [facility] Instructions* Patient Instructions* Greta Watts RPh - 06/03/2024 1:00 PM EDT Increase Basaglar to 50 units twice daily Ask Betsey supplier if you are eligible for an upgraded Betsey system Call nd at [phone] if you continue to have delays with getting insulin through [employer] [facility] [facility]06-20-2024 Telephone encounter Note * Telephone Encounter - Elli Timmons LPN - 05/06/2024 3:35 PM EDT Pt notified. Elli Timmons LPN [facility]06-20-2024 Miscellaneous Notes* Telephone Encounter - Elli Timmons LPN - 05/06/2024 3:35 PM EDT Pt notified. Elli Timmons LPN * Telephone Encounter - Marisol Ramirez LPN - 05/06/2024 1:59 PM EDT The patient has been identified by name and date of : Yes [facility] calling since no refills on rx Caregiver verified no other encounters exist for this prescription request: Yes Caregiver confirmed with patient/requestor that no other refills are due, in the near future, with this provider at this time: Yes The last office visit in the department: 04/23/2024 Does the patient have a future office visit with this provider/department: Yes 07/27/2024 Requested Prescriptions Pending Prescriptions Disp Refills omeprazole (PRILOSEC) 40 mg capsule 90 capsule 3 Sig: Take 1 capsule by mouth once daily. rosuvastatin (CRESTOR) 5 mg tablet 90 tablet 5 Sig: Take 1 tablet by mouth daily at bedtime. Marisol Ramirez LPN May 06, 2024 1:59 PM documented in [facility] Telephone encounter Note * Telephone Encounter - Marisol Ramirez LPN - 05/06/2024 1:59 PM EDT The patient has been identified by name and date of : Yes [facility] calling since no refills on rx Caregiver verified no other encounters exist for this prescription request: Yes Caregiver confirmed with patient/requestor that no other refills are due, in the near future, with this provider at this time: Yes The last office visit in the department: 04/23/2024 Does the patient have a future office visit with this provider/department: Yes 07/27/2024 Requested Prescriptions Pending Prescriptions Disp Refills omeprazole (PRILOSEC) 40 mg capsule 90 capsule 3 Sig: Take 1 capsule by mouth once daily. rosuvastatin (CRESTOR) 5 mg tablet 90 tablet 5 Sig: Take 1 tablet by mouth daily at bedtime. Marisol Ramirez LPN May 06, 2024 1:59 PM [facility]06-20-2024 Telephone encounter Note* Telephone Encounter - Pamela Pichardo RN - 05/06/2024 1:00 PM EDT Called pt to find out what she had decided to do. Pt is going to start using [facility] so Levothyroxine prescription needs to go there today as pt is completely out of medicine. Called [facility], spoke and asked them to watch for script and try to get it to the patient today. Per Dr. Pearce last OV note on 04/23/24: Decrease Synthroid dose to 6 days a week and 1/2 dose 1 day a week [facility]06-20-2024 Miscellaneous Notes* Telephone Encounter - Pamela Pichardo RN - 05/06/2024 1:00 PM EDT Called pt to find out what she had decided to do. Pt is going to start using [facility] so Levothyroxine prescription needs to go there today as pt is completely out of medicine. Called [facility], spoke and asked them to watch for script and try to get it to the patient today. Per Dr. Pearce last OV note on 04/23/24: Decrease Synthroid dose to 6 days a week and 1/2 dose 1 day a week * Telephone Encounter - Pamela Pichardo RN - 05/06/2024 10:49 AM EDT Pt calling as she is completely out of her Levothyroxine. She was expecting a refill from [facility] yesterday. Per epic, it appears pt does not have any refills left at [facility]. Pt states her last bottle did say no refills. When asked pt if she had contacted [facility] and they had told her they were sending a refill out, pt states she had not. States she gets frustrated with paying attention to all of her medications and which ones need refills, etc. Explained to pt about local pharmacies that pre package meds for pt and will call for refills as needed. Pt is interested inthat. Declines to use [facility] but will call [facility] to see if she can get meds there. When pt returns call, please pend refill for Levothyroxine whether it be full script to [facility] or a short term to [facility] and [facility]. [facility] Telephone encounter Note * Telephone Encounter - Pamela Pichardo RN - 05/06/2024 10:49 AM EDT Pt calling as she is completely out of her Levothyroxine. She was expecting a refill from [facility] yesterday. Per epic, it appears pt does not have any refills left at [facility]. Pt states her last bottle did say no refills. When asked pt if she had contacted [facility] and they had told her they were sending a refill out, pt states she had not. States she gets frustrated with paying attention to all of her medications and which ones need refills, etc. Explained to pt about local pharmacies that pre package meds for pt and will call for refills as needed. Pt is interested inthat. Declines to use [facility] but will call [facility] to see if she can get meds there. When pt returns call, please pend refill for Levothyroxine whether it be full script to [facility] or a short term to [facility] and full script to [facility]. [facility]06-13-2024 Telephone encounter Note* Telephone Encounter - Janeth Weiner - 04/29/2024 9:10 AM EDT Scheduled with patient [facility] Work Phone: 1(664) 686-280406-13-2024 Miscellaneous Notes* Telephone Encounter - Janeth Weiner - 04/29/2024 9:10 AM EDT Scheduled with patient * Telephone Encounter - Merlyn Naik LPN - 04/28/2024 12:58 PM EDT Ok to schedule with Dr. Whittington. Merlyn Naik LPN * Telephone Encounter - Mariano Pearce DO - 04/28/2024 6:50 AM EDT Please help set patient up with [facility] appt for IV infusions Okay to continue every other day dosing of vitamin B12 supplement Mariano Pearce DO * Telephone Encounter - April Martínez RN - 04/27/2024 2:38 PM EDT Patient checking on pcp reply. Note B12 lab 4 days ago = [phone] ([phone]). Patient is taking B12- see previous note below. * Telephone Encounter - Zita Vaughan RN - 04/27/2024 11:47 AM EDT Patient calls to ask about the appointment [facility].Patient said it was with [facility]. Patient reports that at appointment she was told it was scheduled for May 04 (not noted under present/past appointments). Went over future appointments and patient was aware of 06/03 [facility] and 07/27 [facility] appts. Reviewed chart and OV notes. I don't see any recommendation for this. OV notes recommended increasing Iron in diet and Vitamin B-12 which patient reports she is taking 1000 mcg daily. Please review and advise, Zita Vaughan RN documented in [facility] encounter[facility] Telephone encounter Note * Telephone Encounter - Merlyn Naik LPN - 04/28/2024 12:58 PM EDT Ok to schedule with Dr. Whittington. Merlyn Naik LPN [facility]06-12-2024 Telephone encounter Note* Telephone Encounter - Mariano Pearce DO - 04/28/2024 6:50 AM EDT Please help set patient up with [facility] appt for IV infusions Okay to continue every other day dosing of vitamin B12 supplement Mariano L Pearce, DO [facility]06-11-2024 Telephone encounter Note* Telephone Encounter - April Martínez RN - 04/27/2024 2:38 PM EDT Patient checking on pcp reply. Note B12 lab 4 days ago = [phone] ([phone]). Patient is taking B12- see previous note below. [facility]06-11-2024 Telephone encounter Note* Telephone Encounter - Zita Vaughan RN - 04/27/2024 11:47 AM EDT Patient calls to ask about the appointment for iron infusion with [facility] for her [facility].Patient said it was with [facility]. Patient reports that at appointment she was told it was scheduled for May 04 (not noted under present/past appointments). Went over future appointments and patient was aware of 06/03 [facility] and 07/27 [facility] appts. Reviewed chart and OV notes. I don't see any recommendation for this. OV notes recommended increasing Iron in diet and Vitamin B-12 which patient reports she is taking 1000 mcg daily. Please review and advise, Zita Vaughan RN [facility]06-10-2024 Evaluation note* Diagnosis Type 2 diabetes mellitus with stage 3 chronic kidney disease, with long-term current use of insulin, unspecified whether stage 3a or 3b CKD (HCC)- Primary Anxiety as acute reaction to exceptional stress Predominant disturbance of emotions Anemia, unspecified type Hypertension, unspecified type Acquired hypothyroidism Unspecified hypothyroidism Chronic insomnia Insomnia, unspecified Dyslipidemia Other and unspecified hyperlipidemia Fatigue, unspecified type PMR (polymyalgia rheumatica) (HCC) Polymyalgia rheumatica Platelets decreased (HCC) Thrombocytopenia, unspecified documented in this encounter [facility]06-08-2024 History of Present illness Narrative* Mariano Pearce DO - 04/24/2024 8:09 AM EDT Patient presents with: Recheck: 3 month follow up HPI: Angeli Ramirez Case is a 73 year old female who presents to the office today for review of health conditions. Concerns today: She states that she has been without her lantus/long acting insulin for 3-4 weeks due to insurance and mail away pharmacy. States it should be coming again soon. Mood, stable, she is taking celexa and prn ativan. The ativan she is usually taking at night to help her calm and fall asleep since she still struggles with insomnia which is senior care since the passing of her 10 years ago. No SI or HI. Hypothyroidism, taking synthroid as prescribed TSH Date Value Ref Range Status 04/07/2024 0.135 (L) 0.270 - 4.200 mIU/L Final Free T4 Date Value Ref Range Status 04/07/2024 1.5 0.9 - 1.7 ng/dL Final Mild anemia, asymptomatic, she denies any obvious bleeding. Has chronic fatigue Ms. Case has past history of diabetes. Since our last visit she denies excessive thirst or increased frequency of urination, chest pain or dyspnea , new or unusual visual symptoms, and low sugar/hypoglycemic reactions. Depression- yes, managed well on celexa. Follows a diabetic diet some of the time. She is compliant with medication(s) and is tolerating med(s) without any side effects. She reports checking her glucose on a CGM schedule with sugars in the <200 range. Patient's last HgA1C was Hemoglobin A1C (%) Date Value 04/07/2024 9.2 01/08/2024 9.0 06/01/2021 7.9 02/27/2021 8.5 Hemoglobin A1C (POCT) (%) Date Value 07/30/2023 7.1 ) Last Ophthalmology exam was within the past 12 months Ms. Case reports history of hyperlipidemia. Current therapy includes rosuvastatin (Crestor) 5 mg. Denies side effects of muscle weakness or achiness. Her most recent lipid panels are reviewed. Cholesterol, Total (mg/dL) Date Value 01/08/2024 116 08/03/2020 195 Total Cholesterol, Nonfasting (mg/dL) Date Value 11/03/2020 213 HDL Cholesterol (mg/dL) Date Value 01/08/2024 33 08/03/2020 34 HDL Cholesterol, Nonfasting (mg/dL) Date Value 11/03/2020 34 LDL Cholesterol (mg/dL) Date Value 01/08/2024 53 08/03/2020 105 LDL Cholesterol, Nonfasting (mg/dL) Date Value 11/03/2020 116 Triglyceride (mg/dL) Date Value 01/08/2024 150 08/03/2020 279 Triglycerides, Nonfasting (mg/dL) Date Value 11/03/2020 314 Ms. Rees indicates a history of hypertension and states that she is feeling well and denies any symptoms referable to elevated blood pressure. Specifically denies headache, chest pain, palpitations, dyspnea, and peripheral edema. Patient denies any side effects of her medication(s) and is compliantwith their regimen. Last 3 Encounter BP Readings: Date: BP: 04/23/2024 124/72 01/15/2024 118/84 10/15/2023 110/80 She watches her diet for sodium, low fat and low cholesterol some of the time. She does not check BP's generally. nAgeli gets minimal exercise. PAST MEDICAL HISTORY Diagnosis Date Advance care planning 04/23/2022 daughter Rebecca Rees is medical POA per patient Allergic rhinitis, cause unspecified Allergic rhinitis Arthritis Benign hypertensive heart disease without heart failure BPPV (benign paroxysmal positional vertigo) Chronic kidney disease (CKD) stage G3a/A2, moderately decreased glomerular filtration rate (GFR) between 45-59 mL/min/1.73 square meter and albuminuria creatinine ratio between 30-299 mg/g (HCC) Diverticulitis Esophageal reflux Fatty liver Fatty liver Fibromyalgia Gastric polyp 07/04/2014 Dr. Spence, needs repeat EGD in 01/01 Gout right great toe Hernia of other specified sites of abdominal cavity without mention of obstruction or gangrene HIATAL Hypertension IBS (irritable bowel syndrome) Irritable bowel syndrome Leiomyoma of uterus Other and unspecified hyperlipidemia PONV (postoperative nausea and vomiting) 03/11/2018 Renal calculi Snoring Type II or unspecified type diabetes mellitus without mention of complication, not stated as uncontrolled Unspecified hemorrhoids without mention of complication Hemorrhoids Unspecified hypothyroidism PAST SURGICAL HISTORY Procedure Laterality Date APPENDECTOMY APPENDECTOMY COLONOSCOPY FLX DX W/COLLJ SPEC WHEN PFRMD 07/04/2014 Colonoscopy, Dr. Spence COLONOSCOPY SCREENING 07/04/2023 repeat 5 years EGD W/O BRSH SPEC VARICIES INJ 07/04/2023 repeat 5 years ESOPHAGOGASTRODUODENOSCOPY TRANSORAL DIAGNOSTIC 07/04/2014 EGD, Dr. Spence ESOPHAGOGASTRODUODENOSCOPY TRANSORAL DIAGNOSTIC 05/29/2015 EGD LAPAROSCOPIC CHOLECYSTECTOMY 06/04/2023 lap tosha with grams Dr Muro LAPS ABD PRTM&OMENTUM DX W/WO SPEC BR/WA SPX 1989 Laparoscopy and scar tissue seen LIG/TRNSXJ FLP TUBE ABDL/VAG APPR UNI/BI Tubal ligation PAST SURGICAL HISTORY OF [place]PE[place] TUNNEL/BILATERAL PAST SURGICAL HISTORY OF 1969 exploratory lap and left salpingectomy for bad infection POLYPECTOMY SNARE STIFF WIRE 07/04/2014 gastric TONSILLECTOMY HX TONSILLECTOMY PRIMARY/SECONDARY <AGE 13 Tonsillectomy VAGINAL HYSTERECTOMY VAGINAL HYSTERECTOMY UTERUS 250 GM/< 03/2018 Hysterectomy, vaginal Social History Tobacco Use Smoking status: Never Smokeless tobacco: Never Vaping Use Vaping Use: Never used Substance Use Topics Alcohol use: No Drug use: No FAMILY HISTORY Problem Relation Age of Onset Hypertension Mother other (DEMENTIA) Mother onset in her 70's Tremor Mother ? Parkinson's Diabetes Father Hypertension Father Lipids Father Anesthesia Problems Sister at 19 yo cardiac arrest during appendectomy, did not survive, 1960's Cancer Maternal Grandmother gallbladder Allergies: ALLERGIES Allergen Reactions Crestor [Rosuvastat* Other: See Comments Legs achy Niacin Itching Erythromycin GI Upset Iodine Rash Latex reddness Lescol [Fluvastatin* GI Upset Lipitor [Atorvastat* Intolerance Muscle aching Naprosyn [Naproxen] uncertain Pravastatin Myalgia Arm pain Macivdi-Pew-Pvi Red* Intolerance Sulfa (Sulfonamide * Hives Trulicity [Dulaglut* GI Upset Vomiting, diarrhea Hospitalized Vibramycin [Doxycyc* GI Upset Vioxx [Rofecoxib] Swelling Zocor [Simvastatin] uncertain Current Meds: [START ON 04/25/2024] LORazepam (ATIVAN) 2 mg tab^Take 1 tablet by mouth at bedtime as needed for up to 60 days. Do not start before April 25, 2024.^Disp: 30 tablet^Rfl: 1 citalopram (CELEXA) 20 mg tablet^Take 1 tablet by mouth once daily.^Disp: 90 tablet^Rfl: 3 metoprolol tartrate, short acting, (LOPRESSOR) 100 mg tablet^Take 1 tablet by mouth two times a day.^Disp: 180 tablet^Rfl: 3 levothyroxine (SYNTHROID) 125 mcg tablet^Take on empty stomach. For Thyroid. Take 1 tablet on Friday through Friday. Take a half tablet on Sundays.^Disp: ^Rfl: rosuvastatin (CRESTOR) 5 mg tablet^Take 1 tablet by mouth daily at bedtime.^Disp: 90 tablet^Rfl: 5 enalapril (VASOTEC) 20 mg tablet^Take 1 tablet by mouth two times a day.^Disp: 180 tablet^Rfl: 3 ezetimibe (ZETIA) 10 mg tablet^Take 1 tablet by mouth once daily. For cholesterol^Disp: 90 tablet^Rfl: 3 insulin lispro (HUMALOG KWIKPEN INSULIN) 100 unit/mL^Inject 10 units with breakfast, 16 units with lunch, and 16 units with dinner + sliding scale insulin (1 unit for every 50 >150 pts). Gets through [facility].^Disp: ^Rfl: omeprazole (PRILOSEC) 40 mg capsule^Take 1 capsule by mouth once daily.^Disp: 90 capsule^Rfl: 3 flash glucose sensor (FREESTYLE BETSEY 14 DAY SENSOR) kit^Type 2 diabetes uncontrolled, insulin dependent, Apply sensor to back of arm to check blood sugars as directed. Change sensor every 2 weeks and rotate arms.^Disp: 6 Kit^Rfl: 2 Triamcinolone Acetonide 0.05 % oint^Apply to affected area.^Disp: ^Rfl: Blood-Glucose Meter^Use to check blood sugar daily^Disp: 1 Each^Rfl: 0 blood sugar diagnostic (BLOOD GLUCOSE TEST) test strip^Use to check blood sugar four times daily^Disp: 400 Each^Rfl: 3 Lancets lancets^Use to check blood sugar four times daily^Disp: 400 Each^Rfl: 3 omega-3 DHA-EPA (FISH OIL) 1,200 (144-216) mg capsule^Take 1 capsule by mouth once daily.^Disp: ^Rfl: Insulin [place], Disposable, (BD ULTRA-FINE PATRICIO PEN NEEDLE) 32 gauge x 5/32^Use 4 pen needles daily with Basaglar and Humalog^Disp: 360 Each^Rfl: 3 flash glucose scanning reader (FREESTYLE BETSEY 14 DAY READER)^Use to check blood sugar as directed.^Disp: 1 Each^Rfl: 0 colchicine (COLCRYS) 0.6 mg tablet^Take 1 tablet by mouth twice daily. For acute gout flare up^Disp: 14 tablet^Rfl: 1 apremilast (OTEZLA) 30 mg tablet^Take 30 mg by mouth once daily. ^Disp: ^Rfl: cholecalciferol (VITAMIN D3) 50 mcg (2,000 unit) tablet^Take one tablet by mouth once daily Friday through Friday.^Disp: ^Rfl: insulin glargine (BASAGLAR KWIKPEN U-100 INSULIN) 100 unit/mL (3 mL)^Inject 46 Units subcutaneouslytwo times a day.^Disp: 45 mL^Rfl: 1 LORazepam (ATIVAN) 2 mg tab^Take 1 tablet by mouth at bedtime as needed for up to 60 days.^Disp: 30tablet^Rfl: 1 levothyroxine (SYNTHROID) 125 mcg tablet^Take 1 tablet by mouth daily before breakfast.^Disp: 14 tablet^Rfl: 0 (Patient not taking: Reported on 04/23/2024) oxyCODONE-acetaminophen (PERCOCET) 5-325 mg tablet^Take 1 tablet by mouth every 8 hours as needed for pain.^Disp: ^Rfl: (Patient not taking: Reported on 04/23/2024) acetaminophen (TYLENOL) 325 mg tablet^Take 2 tablets by mouth every 6 hours as needed for Pain.^Disp: 60 tablet^Rfl: 0 (Patient not taking: Reported on 04/23/2024) Review of Systems: The remainder of the review of systems is negative. PE: 04/23/24 1332 BP: 124/72 BP Site: Left Arm Pulse: 64 SpO2: 97% Weight: 77.6 kg (171 lb) Gen: A&O, NAD, non-toxic appearing, Pleasant, cooperative HEENT: NT/AC, PERRLA, EOMs intact b/l, nares clear and patent b/l, pharynx without erythema, exudate or lesions. Uvula midline. EACs without erythema or debris. TMs pearly villanueva with intact landmarks b/l. Neck: supple, No cervical LAD, no thyromegaly, no carotid bruits CV: RRR, normal S1 and S2, no murmurs, no gallops, no rubs, Pulses 2+ and symmetric in UE and LE b/l Lungs: normal respiratory effort, CTA b/l, no wheezing or rhonchi or rales Abd: soft, obese, NT, ND, +BS, no hepatosplenomegaly MS: arthritis changes of spine and joints Neuro: CN II-XII intact b/l, strength 5/5 b/l UE and LE, DTRs 2/4 UE and LE, sensation intact. Skin: warm, dry, intact, No rashes or lesions on exposed skin. Foot exam: Monofilament wnl on right and left feet. No edema ASSESSMENT/PLAN: 1. Type 2 diabetes mellitus with stage 3 chronic kidney disease, with long-term current use of insulin, unspecified whether stage 3a or 3b CKD (HCC) - ICD9: 250.40, 585.3, V58.67, ICD10: E11.22, N18.30, Z79.4 (primary diagnosis) - Uncontrolled - Worsening control - Increase Insulin glargine (Lantus/Basaglar/Toujeo) - eGFR: 54 Stable - Counseled on avoiding NSAIDs, adequate hydration - Counseled on low sodium diet - BASAGLAR KWIKPEN U-100 INSULIN 100 UNIT/ML (3 ML) SUBCUTANEOUS 2. Anxiety as acute reaction to exceptional stress - ICD9: 308.0, ICD10: F41.1, F43.0 rx refilled Chronic, stable - LORAZEPAM 2 MG TABLET 3. Anemia, unspecified type - ICD9: 285.9, ICD10: D64.9 Recheck labs Start on vitamin b12 and increased iron in diet. - VITAMIN B12 - IRON AND TIBC - FOLATE, SERUM - FERRITIN - COMPLETE BLOOD COUNT AND DIFFERENTIAL 4. Hypertension, unspecified type - ICD9: 401.9, ICD10: I10 - Controlled - Continue current medications - Recommend home blood pressure monitoring, to bring results to next visit - Encouraged sodium restriction, DASH or Mediterranean diet - Recommend regular aerobic exercise 5. Acquired hypothyroidism - ICD9: 244.9, ICD10: E03.9 - Instructed patient on importance of taking on an empty stomach either first thing in the morning or at bedtime. - Decrease Synthroid dose to 6 days a week and 1/2 dose 1 day a week 6. Chronic insomnia - ICD9: 780.52, ICD10: F51.04 Stable, see above and HPI 7. Dyslipidemia - ICD9: 272.4, ICD10: E78.5 - Uncontrolled - Continue current medications and get diabetes under control as well - Counseled on healthy diet and regular exercise 8. Fatigue, unspecified type - ICD9: 780.79, ICD10: R53.83 See above Mariano Pearce DO To ER if develops chest pain, shortness of breath, or severe worsening of symptoms. Discussed risks, benefits, alternatives, and potential side effects of medications. Patient expressed understanding and agreed with the plan. Mariano Pearce DO [address] [place] [address] documented in [facility] encounter[facility] Telephone encounter Note * Telephone Encounter - Elli Timmons LPN - 04/20/2024 12:07 PM EDT Pt out of medication. Took last one yesterday.. Pt requesting a short term prescription to local pharmacy. Pt has apt with Dr. Pearce on Friday04-23-24 and pt's labs will be discussed. Elli Timmons LPN Patient has been identified by name and date of : Yes, Provider Ramses Weathers Date 04/20/24 Time 12:13 pm Patient phones for refill(s): Requested Prescriptions Pending Prescriptions Disp Refills levothyroxine (SYNTHROID) 125 mcg tablet 14 tablet 0 Sig: Take 1 tablet by mouth daily before breakfast. Date of last office visit in primary care: 01/15/2024 Date of next office visit in primary care: 04/23/2024 Please let pt know when this has been sent to the pharmacy. Thank you. Elli Timmons LPN. [facility]06-04-2024 Miscellaneous Notes* Telephone Encounter - Elli Timmons LPN - 04/20/2024 12:07 PM EDT Pt out of medication. Took last one yesterday.. Pt requesting a short term prescription to local pharmacy. Pt has apt with Dr. Pearce on Friday04-23-24 and pt's labs will be discussed. Elli Timmons LPN Patient has been identified by name and date of : Yes, Provider Ramses Weathers Date 04/20/24 Time 12:13 pm Patient phones for refill(s): Requested Prescriptions Pending Prescriptions Disp Refills levothyroxine (SYNTHROID) 125 mcg tablet 14 tablet 0 Sig: Take 1 tablet by mouth daily before breakfast. Date of last office visit in primary care: 01/15/2024 Date of next office visit in primary care: 04/23/2024 Please let pt know when this has been sent to the pharmacy. Thank you. Elli Timmons LPN. documented in [facility] encounterReg[facility]05[facility] Telephone encounter Note * Telephone Encounter - Luz Purdy LPN - 04/13/2024 12:08 PM EDT Rec'd covermymeds PA for lorazepam. This was completed electronically and approved. Pharmacy notified. Rx due 04/25/24 [facility]05-28-2024 Miscellaneous Notes* Telephone Encounter - Luz Purdy LPN - 04/13/2024 12:08 PM EDT Rec'd covermymeds PA for lorazepam. This was completed electronically and approved. Pharmacy notified. Rx due 04/25/24 documented in this encounterReg[facility]05-23-2024 Telephone encounter Note * Telephone Encounter - Marisol Ramirez LPN - 04/08/2024 4:47 PM EDT Phoned patient and went over results, notes from Nimisha Navarrete BOILER ROOM OPERATOR with understanding. [facility]05-23-2024 Miscellaneous Notes* Telephone Encounter - Marisol Ramirez LPN - 04/08/2024 4:47 PM EDT Phoned patient and went over results, notes from Nimisha Navarrete NP with understanding. * Telephone Encounter - Demetra Navarrete APRN.CNP - 04/08/2024 4:29 PM EDT Please let Opal know that her A1C remains out of control at 9.2. Her TSH thyroid level is just slightly low as well. However, no acute concerns. She can follow up in more detail at her upcoming appointment with Dr. Pearce. Demetra Navarrete APRN.CNP documented in this encounterRegency Hospital [facility]05-23-2024 Telephone encounter Note * Telephone Encounter - Demetra Navarrete APRN.CNP - 04/08/2024 4:29 PM EDT Please let Opal know that her A1C remains out of control at 9.2. Her TSH thyroid level is just slightly low as well. However, no acute concerns. She can follow up in more detail at her upcoming appointment with Dr. Pearce. Demetra Navarrete APRN.CNP [facility]05-23-2024 Telephone encounter Note* Telephone Encounter - Naya Ruvalcaba APRN.CNP - 04/08/2024 8:02 AM EDT PDMP website checked and validated. All prescriptions have been APPROPRIATELY filled. No suspiciousactivity was identified. 04/08/2024 by Naya Ruvalcaba APRN.CNP The following approved medication requests have been transmitted electronically. Requested Prescriptions Signed Prescriptions Disp Refills LORazepam (ATIVAN) 2 mg tab 30 tablet 1 Sig: Take 1 tablet by mouth at bedtime as needed for up to 60 days. Do not start before April 25, 2024. Authorizing Provider: NAYA RUVALCABA APRN.CNP [facility]05-23-2024 Miscellaneous Notes* Telephone Encounter - Naya Ruvalcaba APRN.CNP - 04/08/2024 8:02 AM EDT PDMP website checked and validated. All prescriptions have been APPROPRIATELY filled. No suspiciousactivity was identified. 04/08/2024 by Naya Ruvalcaba APRN.CNP The following approved medication requests have been transmitted electronically. Requested Prescriptions Signed Prescriptions Disp Refills LORazepam (ATIVAN) 2 mg tab 30 tablet 1 Sig: Take 1 tablet by mouth at bedtime as needed for up to 60 days. Do not start before April 25, 2024. Authorizing Provider: NAYA RUVALCABA APRN.CNP * Telephone Encounter - Sugar Wright - 04/06/2024 11:15 AM EDT Patient has been identified by name and date of : Yes, Provider Pearce Patient phones for refill(s): Requested Prescriptions Pending Prescriptions Disp Refills LORazepam (ATIVAN) 2 mg tab 30 tablet 1 Sig: Take 1 tablet by mouth at bedtime as needed for up to 60 days. Date of last office visit in primary care: 01/15/2024 Date of next office visit in primary care: 04/23/2024 Please advise. Thank you. Sugar Champagne. documented in this encounterReg[facility] Telephone encounter Note * Telephone Encounter - Sugar Wright - 04/06/2024 11:15 AM EDT Patient has been identified by name and date of : Yes, Provider Ramses Patient phones for refill(s): Requested Prescriptions Pending Prescriptions Disp Refills LORazepam (ATIVAN) 2 mg tab 30 tablet 1 Sig: Take 1 tablet by mouth at bedtime as needed for up to 60 days. Date of last office visit in primary care: 01/15/2024 Date of next office visit in primary care: 04/23/2024 Please advise. Thank you. Sugar Champagne. [facility]05-20-2024 Miscellaneous Notes* Telephone Encounter - Mariano Pearce DO - 04/05/2024 1:26 PM EDT Order placed as below' Mariano Pearce DO * Telephone Encounter - Kasandra Monae LPN - 04/05/2024 10:27 AM EDT Pt calls to report she was seen at [facility] and had blood work done. Pt reports they want a repeat cbc done. Pt reports Dr. Truong's office is going to send OV notes to pcp. Ptis supposed to have labs done for upcoming appt with pcp. Pt would like to get cbc done at the sametime and is asking if pcp will order cbc also. This nurse called Dr. Truong's office to verify a cbc needs to be ordered. This was confirmed. Nurse also confirmed OV notes were faxed. Kasandra Monae LPN documented in this encounterReg[facility]05-[facility]-2024 Telephone encounter Note * Telephone Encounter - Mariano Pearce DO - 04/05/2024 1:26 PM EDT Order placed as below' Mariano Pearce DO [facility]05-20-2024 Telephone encounter Note* Telephone Encounter - Kasandra Monae LPN - 04/05/2024 10:27 AM EDT Pt calls to report she was seen at [facility] and had blood work done. Pt reports they want a repeat cbc done. Pt reports Dr. Truong's office is going to send OV notes to pcp. Ptis supposed to have labs done for upcoming appt with pcp. Pt would like to get cbc done at the sametime and is asking if pcp will order cbc also. This nurse called Dr. Truong's office to verify a cbc needs to be ordered. This was confirmed. Nurse also confirmed OV notes were faxed. Kasandra Monae LPN [facility]04-18-2024 Miscellaneous Notes* Telephone Encounter - Elli Timmons LPN - 03/04/2024 2:56 PM EDT [facility] contacted and prescription was cancelled there. Elli Timmons LPN * Telephone Encounter - Naya Ruvalcaba APRN.CNP - 03/04/2024 2:47 PM EDT Rx sent locally. Can we please [facility] and make cancel prior order. PDMP website checked and validated. All prescriptions have been APPROPRIATELY filled. No suspiciousactivity was identified. 03/04/2024 by Naya Ruvalcaba APRN.CNP The following approved medication requests have been transmitted electronically. Requested Prescriptions Signed Prescriptions Disp Refills LORazepam (ATIVAN) 2 mg tab 30 tablet 1 Sig: Take 1 tablet by mouth at bedtime as needed for up to 60 days. Authorizing Provider: NAYA RUVALCABA APRN.CNP * Telephone Encounter - Glenys Davison - 03/04/2024 10:17 AM EDT Patient wanted this to go locally not to her mail order. Please correct and [facility] and send to her local [facility]. Patient has been identified by name and date of : Yes Requested Prescriptions Pending Prescriptions Disp Refills LORazepam (ATIVAN) 2 mg tab 30 tablet 1 Sig: Take 1 tablet by mouth at bedtime as needed for up to 60 days. RX INSTRUCTIONS: Patient aware RX will be sent to pharmacy. No need to nofity patient. Controlled medication - must be call in. Glenys Champagne documented in this encounterRegency [facility]04-15-2024 Miscellaneous Notes* Telephone Encounter - Demetra Navarrete APRN.CNP - 03/01/2024 11:47 AM EDT The following approved medication requests have been transmitted electronically. Requested Prescriptions Signed Prescriptions Disp Refills LORazepam (ATIVAN) 2 mg tab 30 tablet 1 Sig: Take 1 tablet by mouth at bedtime as needed for up to 60 days. Authorizing Provider: DEMETRA NAVARRETE APRN.CNP PDMP website checked and validated. All prescriptions have been APPROPRIATELY filled. No suspiciousactivity was identified. 03/01/2024 by Demetra Navarrete CNP. * Telephone Encounter - Jolly Larry LPN - 03/01/2024 10:48 AM EDT Patient stated that she has 2 pills left. Patient has been identified by name and date of : No Patient phones for refill(s): Requested Prescriptions Pending Prescriptions Disp Refills LORazepam (ATIVAN) 2 mg tab 30 tablet 1 Sig: Take 1 tablet by mouth at bedtime as needed for up to 30 days. Date of last office visit in primary care: Demetra 01/15/24 Date of next office visit in primary care: 04/23/24 Please advise. Thank you. Jolly Larry LPN. documented in this encounterRegency [facility]04-15-2024 Miscellaneous Notes* Telephone Encounter - Jolly Larry LPN - 03/01/2024 10:52 AM EDT Patient notified and verbalized understanding. Jolly Larry LPN * Telephone Encounter - Trisha Marroquin MA - 02/27/2024 1:30 PM EDT Left message to return call Trisha Marroquin MA * Telephone Encounter - Demetra Navarrete APRN.CNP - 02/27/2024 10:24 AM EDT Please let her know that her mammogram shows no signs of cancer. Recommend continuing to follow up yearly with screening mammogram. Demetra Navarrete APRN.DARLENE documented in this encounterRegency Hospital [facility]04-12-2024 Miscellaneous Notes* Letter - Coordinator, Mammography - 02/27/2024 10:20 AM EDT February 27, 2024 PID: [id number] Angeli Rees [address] [place] [address] Dear Ms. Rees, We are pleased to inform you that the results of your recent breast imaging exam on 02/26/2024 are normal. Your mammogram demonstrates that you have dense breast tissue, which could hide abnormalities. Dense breast tissue, in and of itself, is a relatively common condition. Therefore, this information is not provided to cause undue concern; rather, it is to raise your awareness and promote discussion with your health care provider regarding the presence of dense breast tissue in addition to other riskfactors. Early detection of cancer is very important. We also understand recommendations regarding breast cancer screening are controversial. Please discuss with your primary care provider which strategy is best for you and whether a mammogram is right for you. Your imaging studies and report will be kept on file at [facility] as part of your permanent medical record and are available for your continuing care. Thank you for allowing us to help in meeting your health care needs. Sincerely, Dr. Fajardo Interpreting Radiologist [facility] (Normal over 40) documented in this encounterRegency Hospital [facility]04-11-2024 History of Present illness Narrative* Yola Henderson Mammo Tech - 02/26/2024 12:30 PM EDT Radiology Service Progress Note PATIENT NAME: Angeli Rees DATE OF SERVICE: February 26, 2024 TIME: 12:07 PM PATIENT IDENTITY VERIFICATION COMPLETED USING TWO (2) IDENTIFIERS: Name and Date of confirmedby patient verbally. FALL SCREENING: Has the patient had 2 falls in the last year or 1 fall with injury or currently using an Ambulatory Assistive Device (Walker, Cane, Wheelchair, Crutches, etc.)? No PATIENT GENDER DATA: Female. status: : No status: NO. PATIENT RELEVANT IMPLANT DATA REVIEWED: Not Applicable PATIENT PRESENTS WITH AN IMPLANTABLE OR ATTACHED CLAIM CLINICIAN: Yes [facility] RADIOLOGY DEPARTMENT: Mammography PERIPHERAL IV DATA: Not applicable SIGNED BY: Elsy Moran February 26, 2024 12:07 PM documented in this encounterRegency Hospital [facility]04-05-2024 Miscellaneous Notes* Telephone Encounter - Zita Vaughan RN - 02/20/2024 3:30 PM EDT Patient has been identified by name and date of : Yes, Zita Vaughan RN Date 02/20/2024 Time 3:31 pm Patient phones for refill(s): Requested Prescriptions Pending Prescriptions Disp Refills citalopram (CELEXA) 20 mg tablet 90 tablet 3 Sig: Take 1 tablet by mouth once daily. Date of last office visit in primary care: 01/15/2024 Date of next office visit in primary care: 04/23/2024 Please advise. Thank you. Zita Vaughan RN. documented in this encounterRegency Hospital [facility]03-19-2024 Miscellaneous Notes* Telephone Encounter - Sherita Madsen MA - 02/03/2024 2:18 PM EDT Patient has been identified by name and date of : Yes, Provider Mariano Pearce, Date February 03, 2024 Time 2:18 PM Patient phones for refill(s): Requested Prescriptions Pending Prescriptions Disp Refills metoprolol tartrate, short acting, (LOPRESSOR) 100 mg tablet 180 tablet 3 Sig: Take 1 tablet by mouth two times a day. Date of last office visit in primary care: 01/15/2024 Date of next office visit in primary care: 04/23/2024 Please advise. Thank you. Sherita Madsen MA. * Telephone Encounter - Glenys Davison - 02/03/2024 12:43 PM EDT Patient has been identified by name and date of : Yes Requested Prescriptions Pending Prescriptions Disp Refills metoprolol tartrate, short acting, (LOPRESSOR) 100 mg tablet 180 tablet 3 Sig: Take 1 tablet by mouth two times a day. RX INSTRUCTIONS: Patient aware RX escripted to mail away pharmacy. No need to notify patient. Glenys Champagne documented in this encounterRegency Hospital [facility]03-15-2024 Miscellaneous Notes* Telephone Encounter - Demetra Navarrete APRN.CNP - 01/30/2024 6:56 AM EDT The following approved medication requests have been transmitted electronically. Requested Prescriptions Signed Prescriptions Disp Refills LORazepam (ATIVAN) 2 mg tab 30 tablet 1 Sig: Take 1 tablet by mouth at bedtime as needed for up to 30 days. Authorizing Provider: DEMETRA NAVARRETE APRN.CNP PDMP website checked and validated. All prescriptions have been APPROPRIATELY filled. No suspiciousactivity was identified. 01/30/2024 by Demetra Navarrete CNP. * Telephone Encounter - Greta Watts RPh - 01/29/2024 3:54 PM EDT Patient seen by [facility] today. Requesting refill for lorazepam as Rx is . Patient would like sent to [facility]. Patient's request for medication is as follows: Requested Prescriptions Pending Prescriptions Disp Refills LORazepam (ATIVAN) 2 mg tab 30 tablet 1 Sig: Take 1 tablet by mouth at bedtime as needed. Prescription(s) as above. Please process accordingly. Greta Watts PharmD Primary Care Clinical Law Writer documented in this encounterRegency Hospital [facility]03-14-2024 History of Present illness Narrative* Greta Watts RPh - 01/29/2024 2:00 PM EDT Images from the original note were not included. Primary Care Pharmacy Visit CC (Reason for Consult): (E11.22, N18.30, Z79.4) Type 2 diabetes mellitus with stage 3 chronic kidney disease, with long-term current use of insulin, unspecified whether stage 3a or 3b CKD (HCC) (primary encounter diagnosis) Goal(s): A1c <8% Last Collaborating Provider Visit: 01/15/24 with Demetra Navarrete CNP Angeli Ramirez Case is a 73 year old female presenting for follow up visit virtually. [facility]. Last Pharmacy Visit: 10/30/23 HPI: States BGs have been high lately but feels good overall Since post-holidays, has not been eating as well as she was. Reports she has also been frequently having a nighttime snack which she thinks is really affecting her blood sugar control Has recently received shipment of Basaglar (7 boxes) from [employer] Gets pen needles from [facility] States she needs a new refill on her lorazepam; only has 6 days left and usually experiences a delay in getting it from pharmacy Current DM Medications: Basaglar 46 units twice daily Humalog 10 units with breakfast, 16 units with lunch, 16 units with dinner Previously Trialed DM Meds: Glipizide - hypoglycemia Metformin ER - GI upset Liraglutide - cost-prohibitive; pt felt it did not offer much BG-lowering Trulicity - stomach issues + HIPOLITO Jardiance - unable to afford (income above eligibility limits for pap) Diet Breakfast 930-10a Lunch 1-2p Dinner around 7p Has been having a nighttime snack at night - PB crackers, grapes, piece of banana nut bread, sometimes a glass of orange juice GLYCEMIC CONTROL: Glucometer present at visit: Yes - Betsey reader Hypoglycemia: No CGM Data Past medical history reviewed. ALLERGIES Allergen Reactions Crestor [Rosuvastat* Other: See Comments Legs achy Niacin Itching Erythromycin GI Upset Iodine Rash Latex reddness Lescol [Fluvastatin* GI Upset Lipitor [Atorvastat* Intolerance Muscle aching Naprosyn [Naproxen] uncertain Pravastatin Myalgia Arm pain Pqkntzh-Efx-Iop Red* Intolerance Sulfa (Sulfonamide * Hives Trulicity [Dulaglut* GI Upset Vomiting, diarrhea Hospitalized Vibramycin [Doxycyc* GI Upset Vioxx [Rofecoxib] Swelling Zocor [Simvastatin] uncertain Current Outpatient Medications Medication Sig Dispense Refill levothyroxine (SYNTHROID) 125 mcg tablet Take on empty stomach. For Thyroid. Take 1 tablet on Friday through Friday. Take a half tablet on Sundays. rosuvastatin (CRESTOR) 5 mg tablet Take 1 tablet by mouth daily at bedtime. 90 tablet 5 insulin glargine (BASAGLAR KWIKPEN U-100 INSULIN) 100 unit/mL (3 mL) Inject 46 Units subcutaneouslytwo times a day. 30 mL 1 enalapril (VASOTEC) 20 mg tablet Take 1 tablet by mouth two times a day. 180 tablet 3 ezetimibe (ZETIA) 10 mg tablet Take 1 tablet by mouth once daily. For cholesterol 90 tablet 3 insulin lispro (HUMALOG KWIKPEN INSULIN) 100 unit/mL Inject 10 units with breakfast, 16 units with lunch, and 16 units with dinner + sliding scale insulin (1 unit for every 50 >150 pts). Gets through [facility]. omeprazole (PRILOSEC) 40 mg capsule Take 1 capsule by mouth once daily. 90 capsule 3 flash glucose sensor (FREESTYLE BETSEY 14 DAY SENSOR) kit Type 2 diabetes uncontrolled, insulin dependent, Apply sensor to back of arm to check blood sugars as directed. Change sensor every 2 weeks and rotate arms. 6 Kit 2 oxyCODONE-acetaminophen (PERCOCET) 5-325 mg tablet Take 1 tablet by mouth every 8 hours as needed for pain. Triamcinolone Acetonide 0.05 % oint Apply to affected area. Blood-Glucose Meter Use to check blood sugar daily 1 Each 0 blood sugar diagnostic (BLOOD GLUCOSE TEST) test strip Use to check blood sugar four times daily 400 Each 3 Lancets lancets Use to check blood sugar four times daily 400 Each 3 citalopram (CELEXA) 20 mg tablet TAKE 1 TABLET DAILY 90 tablet 3 omega-3 DHA-EPA (FISH OIL) 1,200 (144-216) mg capsule Take 1 capsule by mouth once daily. metoprolol tartrate, short acting, (LOPRESSOR) 100 mg tablet TAKE 1 TABLET TWICE A DAY 180 tablet 3 Insulin [place], Disposable, (BD ULTRA-FINE PATRICIO PEN NEEDLE) 32 gauge x 5/32 Use 4 pen needles daily with Basaglar and Humalog 360 Each 3 flash glucose scanning reader (FREESTYLE BETSEY 14 DAY READER) Use to check blood sugar as directed.1 Each 0 colchicine (COLCRYS) 0.6 mg tablet Take 1 tablet by mouth twice daily. For acute gout flare up 14 tablet 1 apremilast (OTEZLA) 30 mg tablet Take 30 mg by mouth once daily. acetaminophen (TYLENOL) 325 mg tablet Take 2 tablets by mouth every 6 hours as needed for Pain. 60 tablet 0 cholecalciferol (VITAMIN D3) 50 mcg (2,000 unit) tablet Take one tablet by mouth once daily Friday through Friday. Current Facility-Administered Medications Medication Dose Route Frequency Provider Last Rate Last Admin perflutren lipid microspheres 1.3 mL in NaCl (PF) 0.9% 10 mL injection (DEFINITY) INTRAVENOUS DIRECTED PRN Mariano Pearce, sodium chloride 0.9 % (flush) 10 mL (BD POSIFLUSH) 10 mL INTRAVENOUS DIRECTED Mariano Lewis DO Pill bottles are not present. Adherence: denies missed doses. Rx coverage: Payor: [facility] MED[facility] / Plan: [facility] [employer]AD[employer] HMO / Product Type: HMO / Medications affordable? Enrolled in [employer] (Basaglar and Humalog) PHARMACOTHERAPY PREVENTATIVE MEDS: On STEPHANIA/ARB: Yes On Statin: Yes On ASA: No EXAM: There were no vitals taken for this visit. Last 3 Encounter BP Readings: Date: BP: 01/15/2024 118/84 10/15/2023 110/80 07/30/2023 130/70 Wt: 77.5 kg (170 lb 12.8 oz) BMI: 31.24 kg/(m^2) LABS: Lab Results Component Value Date HBA1C 9.0 01/08/2024 HBA1C 7.1 07/30/2023 HBA1C 7.6 04/23/2023 HBA1C 8.1 01/23/2023 HBA1C 7.9 06/01/2021 HBA1C 8.5 02/27/2021 HBA1C 8.0 11/03/2020 Glucose 163 01/08/2024 BUN 16 01/08/2024 Creatinine 1.09 01/08/2024 Sodium 136 01/08/2024 Potassium 4.3 01/08/2024 Chloride 103 01/08/2024 CO2 25 01/08/2024 Protein, Total 6.2 01/08/2024 Albumin 3.8 01/08/2024 Calcium 9.0 01/08/2024 Alkaline Phosphatase 139 01/08/2024 Bilirubin, Total 0.3 01/08/2024 AST 34 01/08/2024 ALT 30 01/08/2024 Lab Results Component Value Date CHOL 116 01/08/2024 CHOL 213 11/03/2020 CHOL 195 08/03/2020 LDL 53 01/08/2024 LDL 116 11/03/2020 LDL 105 08/03/2020 HDL 33 01/08/2024 HDL 34 11/03/2020 HDL 34 08/03/2020 TG 150 01/08/2024 TG 314 11/03/2020 TG 279 08/03/2020 Albumin/Creat Ratio (mg/g) Date Value 07/26/2022 48 (H) eGFR-All Other Races (.) Date Value 06/01/2021 49 Estimated Glomerular Filtration Rate (mL/min/1.73m ) Date Value 01/08/2024 54 ASSESSMENT/PLAN: 1. Type 2 diabetes mellitus with stage 3 chronic kidney disease, with long-term current use of insulin, unspecified whether stage 3a or 3b CKD (HCC) - ICD9: 250.40, 585.3, V58.67, ICD10: E11.22, N18.30, Z79.4 - Uncontrolled. A1c above goal <7%. CGM report shows TIR not at goal, BGs are variable throughout thew week, likely due to variation in diet. Will focus on making diet/lifestyle modifications at this time per patient preference. - Continue current medications - Statin prescribed - rosuvastatin - Blood glucose monitoring on a continuous glucose monitoring schedule - Counseled on healthy diet and regular exercise. Recommended positive lifestyle modifications including portion control, low-carb diet, and as much physical activity as able. Discussed focusing on returning to previous diet with limiting sweets, and incorporating more protein into diet throughout the day, including protein-rich snack if having one at night. - Follow up in 4 months, sooner should any other issues arise. Follow Up: Next PCP visit: Next PharmD visit: 06/03/24 Greta Watts, [place] [facility] Clinical Law Writer I spent a total of 30 minutes on the date of the service which included preparing to see the patient, [id number] patient care, completing clinical documentation, and counseling and educating the patient/family/caregiver. documented in this encounterRegency Hospital [facility]03-14-2024 Instructions* Patient Instructions* Greta Watts RPh - 01/29/2024 2:00 PM EDT Continue current medications: Basaglar 46 units twice daily Humalog 10 units with breakfast, 16 units with lunch, 16 units with dinner documented in this encounterRegency Hospital [facility]03-14-2024 Evaluation note* Diagnosis Type 2 diabetes mellitus with stage 3 chronic kidney disease, with long-term current use of insulin, unspecified whether stage 3a or 3b CKD (HCC)- Primary documented in this encounter [facility]03-07-2024 Miscellaneous Notes* Telephone Encounter - Greta Watts RPh - 01/22/2024 11:20 AM EST Patient dropped off forms for PharmD. Received forms regarding [employer] enrollment notification. Patient is approved to receive Basaglar and Humalog through 11/16/24. Forms saved in PharmD file cabinet. No further action required. Greta Watts PharmD Primary Care Clinical Law Writer documented in this encounterRegency Hospital [facility]03-01-2024 Miscellaneous Notes* Telephone Encounter - Trisha Marroquin - 01/16/2024 8:36 AM EST Pt informed, verbalized understanding Trisha Marroquin * Telephone Encounter - Demetra Navarrete APRN.CNP - 01/16/2024 6:58 AM EST Please let her know that her COVID/influenza/RSV testing is all negative. Demetra Navarrete APRN.CNP documented in this encounterRegency Hospital [facility]02-29-2024 Instructions* Patient Instructions* Demetra Navarrete APRN.CNP - 01/15/2024 1:13 PM EST Levothyroxine for thyroid-Take 1 tablet on Friday through Friday. Take a half tablet on Sundays. Call in for your Ativan/lorazepam refills about a week before you're due. documented in this encounterRegency Hospital [facility] East02-29-2024 History of Present illness Narrative* Demetra Navarrete, RENITA.WARP DYEING TENDER - 01/15/2024 12:52 PM EST Chief Complaint Patient presents with: F/U 3 Month: Labs completed 7 days ago, nasal drainage and left ear pain HPI Angeli Ramirez Case is a 73 year old female who presents here today for Above Complaints.. Currently: A1C level increased. Suspected this would go up r/t Adry, baking, etc. Blood sugars have been running higher-running around 210-350. Sates the problem is that she is very bad about eating at nighttime. Would like to stop after supper but feels hungry later on. Does have an appointment with a pharmacist in 2 weeks to discuss her medications, diabetes. Thyroid-feels tired, decreased ambition, hair falling out-when washing hair and brushing it-brush is full. 3 days ago-started with a sore throat and glands tender. Both of her ears are hurting. When laying down at night gets PND and coughing-occasionally productive or clear mucous. Nose running and eyes watering. No fevers. Appetite is normal. Takes lorazepam at bedtime. Past medical history, appointments, medications, allergies reviewed. Previous Medical History PAST MEDICAL HISTORY Diagnosis Date Advance care planning 04/23/2022 daughter Rebecca Case is medical POA per patient Allergic rhinitis, cause unspecified Allergic rhinitis Arthritis Benign hypertensive heart disease without heart failure BPPV (benign paroxysmal positional vertigo) Chronic kidney disease (CKD) stage G3a/A2, moderately decreased glomerular filtration rate (GFR) between 45-59 mL/min/1.73 square meter and albuminuria creatinine ratio between 30-299 mg/g (HCC) Diverticulitis Esophageal reflux Fatty liver Fatty liver Fibromyalgia Gastric polyp 07/04/2014 Dr. Spence, needs repeat EGD in 01/01 Gout right great toe Hernia of other specified sites of abdominal cavity without mention of obstruction or gangrene HIATAL Hypertension IBS (irritable bowel syndrome) Irritable bowel syndrome Leiomyoma of uterus Other and unspecified hyperlipidemia PONV (postoperative nausea and vomiting) 03/11/2018 Renal calculi Snoring Type II or unspecified type diabetes mellitus without mention of complication, not stated as uncontrolled Unspecified hemorrhoids without mention of complication Hemorrhoids Unspecified hypothyroidism Previous Surgical History PAST SURGICAL HISTORY Procedure Laterality Date APPENDECTOMY APPENDECTOMY COLONOSCOPY FLX DX W/COLLJ SPEC WHEN PFRMD 07/04/2014 Colonoscopy, Dr. Spence COLONOSCOPY SCREENING 07/04/2023 repeat 5 years EGD W/O [facility] SPEC VARICIES INJ 07/04/2023 repeat 5 years ESOPHAGOGASTRODUODENOSCOPY TRANSORAL DIAGNOSTIC 07/04/2014 EGD, Dr. Spence ESOPHAGOGASTRODUODENOSCOPY TRANSORAL DIAGNOSTIC 05/29/2015 EGD LAPAROSCOPIC CHOLECYSTECTOMY 06/04/2023 lap tosha with grams Dr Muro LAPS ABD PRTM&OMENTUM DX W/WO SPEC BR/WA SPX 1989 Laparoscopy and scar tissue seen LIG/TRNSXJ FLP TUBE ABDL/VAG APPR UNI/BI Tubal ligation PAST SURGICAL HISTORY OF [place]PE[place] TUNNEL/BILATERAL PAST SURGICAL HISTORY OF 1969 exploratory lap and left salpingectomy for bad infection POLYPECTOMY SNARE STIFF WIRE 07/04/2014 gastric TONSILLECTOMY HX TONSILLECTOMY PRIMARY/SECONDARY <AGE 13 Tonsillectomy VAGINAL HYSTERECTOMY VAGINAL HYSTERECTOMY UTERUS 250 GM/< 03/2018 Hysterectomy, vaginal Family History FAMILY HISTORY Problem Relation Age of Onset Hypertension Mother other (DEMENTIA) Mother onset in her 70's Tremor Mother ? Parkinson's Diabetes Father Hypertension Father Lipids Father Anesthesia Problems Sister at 19 yo cardiac arrest during appendectomy, did not survive, 1959' Cancer Maternal Grandmother gallbladder Patient Allergies ALLERGIES Allergen Reactions Crestor [Rosuvastat* Other: See Comments Legs achy Niacin Itching Erythromycin GI Upset Iodine Rash Latex reddness Lescol [Fluvastatin* GI Upset Lipitor [Atorvastat* Intolerance Muscle aching Naprosyn [Naproxen] uncertain Pravastatin Myalgia Arm pain [place]-Pno-Xot Red* Intolerance Sulfa (Sulfonamide * Hives Trulicity [Dulaglut* GI Upset Vomiting, diarrhea Hospitalized Vibramycin [Doxycyc* GI Upset Vioxx [Rofecoxib] Swelling Zocor [Simvastatin] uncertain Current Medications Current Outpatient Medications on File Prior to Visit Medication Sig rosuvastatin (CRESTOR) 5 mg tablet Take 1 tablet by mouth daily at bedtime. insulin glargine (BASAGLAR KWIKPEN U-100 INSULIN) 100 unit/mL (3 mL) Inject 46 Units subcutaneouslytwo times a day. insulin glargine (BASAGLAR KWIKPEN U-100 INSULIN) 100 unit/mL (3 mL) Inject 46 Units subcutaneouslytwo times a day. [facility] PATIENT ASSISTANCE PROGRAM levothyroxine (LEVOXYL) 125 mcg tablet Take 1 tablet by mouth once daily. Take on empty stomach. For thyroid. enalapril (VASOTEC) 20 mg tablet Take 1 tablet by mouth two times a day. ezetimibe (ZETIA) 10 mg tablet Take 1 tablet by mouth once daily. For cholesterol insulin lispro (HUMALOG KWIKPEN INSULIN) 100 unit/mL Inject 10 units with breakfast, 16 units with lunch, and 16 units with dinner + sliding scale insulin (1 unit for every 50 >150 pts). Gets [facility]. omeprazole (PRILOSEC) 40 mg capsule Take 1 capsule by mouth once daily. flash glucose sensor (LivescribeSTYLE BETSEY 14 DAY SENSOR) kit Type 2 diabetes uncontrolled, insulin dependent, Apply sensor to back of arm to check blood sugars as directed. Change sensor every 2 weeks and rotate arms. oxyCODONE-acetaminophen (PERCOCET) 5-325 mg tablet Take 1 tablet by mouth every 8 hours as needed for pain. Triamcinolone Acetonide 0.05 % oint Apply to affected area. Blood-Glucose Meter Use to check blood sugar daily blood sugar diagnostic (BLOOD GLUCOSE TEST) test strip Use to check blood sugar four times daily Lancets lancets Use to check blood sugar four times daily citalopram (CELEXA) 20 mg tablet TAKE 1 TABLET DAILY omega-3 DHA-EPA (FISH OIL) 1,200 (144-216) mg capsule Take 1 capsule by mouth once daily. metoprolol tartrate, short acting, (LOPRESSOR) 100 mg tablet TAKE 1 TABLET TWICE A DAY Insulin [place], Disposable, (BD ULTRA-FINE PATRICIO PEN NEEDLE) 32 gauge x /32 Use 4 pen needles daily with Basaglar and Humalog flash glucose scanning reader (FREESTYLE BETSEY 14 DAY READER) Use to check blood sugar as directed. colchicine (COLCRYS) 0.6 mg tablet Take 1 tablet by mouth twice daily. For acute gout flare up apremilast (OTEZLA) 30 mg tablet Take 30 mg by mouth once daily. acetaminophen (TYLENOL) 325 mg tablet Take 2 tablets by mouth every 6 hours as needed for Pain. cholecalciferol (VITAMIN D3) 50 mcg (2,000 unit) tablet Take one tablet by mouth once daily Friday through Friday. dicyclomine (BENTYL) 10 mg capsule Take 1 capsule by mouth before meals and at bedtime. As needed for diarrhea (Patient not taking: Reported on 01/15/2024) colestipol (COLESTID) 1 gram tablet Take 1 tablet by mouth twice daily before meals. (Patient not taking: Reported on 01/15/2024) Current Facility-Administered Medications on File Prior to Visit Medication perflutren lipid microspheres 1.3 mL in NaCl (PF) 0.9% 10 mL injection (DEFINITY) sodium chloride 0.9 % (flush) 10 mL (BD POSIFLUSH) Social History Social History Tobacco Use Smoking status: Never Smokeless tobacco: Never Vaping Use Vaping Use: Never used Substance Use Topics Alcohol use: No Drug use: No Review of Symptoms REVIEW OF SYSTEMS See HPI, otherwise negative EXAM: BP 118/84 (BP Site: Left Arm, BP Position: Sitting, BP Cuff Size: Regular Adult) Pulse 68 Temp (!) 35.6 C (96.1 F) Resp 16 Wt 77.5 kg (170 lb 12.8 oz) SpO2 93% BMI 31.24 kg/m General Appearance: Well appearing, alert, in no acute distress, well-hydrated, well nourished.. Head: Normocephalic, no masses, lesions, tenderness or abnormalities. Eyes: Anicteric sclera. Pupils are equally round and reactive to light. Extraocular movements are intact. . Ears: External ears normal, canals clear. Nose/Sinuses: Nares normal, septum midline, mucosa normal, no drainage or sinus tenderness. Oropharynx: Lips, mucosa, and tongue normal, teeth and gums normal, oropharynx normal. Neck: Supple, no adenopathy; thyroid symmetric, normal size, no bruits. Lungs: Lungs clear to auscultation. No wheezing, rhonchi, rales.. Heart: RRR without murmur, gallop, or rubs. No ectopy. Psychiatric: pleasant, cooperative. Health Maintenance List RSV Vaccine(1 - 1-dose 60+ series) Never done Urine Albumin:Creatinine Ratio due on 07/26/2023 Depression Assessment due on 11/17/2023 Mammogram Screening due on 02/25/2024 Covid-19 Vaccine( season) due on 10/15/2024 BP Controlled (<130/80) due on 01/28/2024 HbA1C due on 04/07/2024 Diabetic Foot Exam due on 07/30/2024 Annual PCP Team Chronic Disease Visit due on 10/15/2024 Dilated Retinal Exam due on 12/18/2024 LDL Cholesterol due on 01/08/2025 Serum Creatinine due on 01/08/2025 Hemoglobin/Hematocrit due on 01/08/2025 DTaP,Tdap,Td Vaccine(2 - Td or Tdap) due on 09/18/2025 Colorectal Cancer Screening due on 07/04/2028 Bone Density Screening Completed Influenza Vaccine Completed Hepatitis C Screening Completed Shingrix Vaccine Completed Pneumococcal Vaccine: 65+ Completed Advance Directive Discussion Discontinued Data reviewed Previous records, office notes ASSESSMENT/PLAN: 1. Uncontrolled type 2 diabetes mellitus with hyperglycemia (HCC) - ICD9: 250.02, ICD10: E11.65 (primary diagnosis) Is seeing our clinical pharmacist in 2 weeks to discuss. - HGB A1C 2. Acquired hypothyroidism - ICD9: 244.9, ICD10: E03.9 Decrease levothyroxine and repeat labs in 3 months. - LEVOTHYROXINE 125 MCG TABLET - TSH BLD - T4 FREE/FREE THYROX 3. Chronic insomnia - ICD9: 780.52, ICD10: F51.04 Continue lorazepam prn. 4. Situational anxiety - ICD9: 300.09, ICD10: F41.8 Continue lorazepam prn. 5. Encounter for screening mammogram for breast cancer - ICD9: V76.12, ICD10: Z12.31 - HIRAL SCREENING 6. Sore throat - ICD9: 462, ICD10: J02.9 - suspect viral - Discussed supportive care treatment with fluids, rest and analgesia. Patient will notify the office in 7-10 days if sx are not improving or are worsening, ok to send inantibiotic at that time, such as amoxicillin. - RAPID STREP TEST B/O - COVID & INFLUENZA A/B & RSV NAAT, ROUTINE 7. Acute cough - ICD9: 786.2, ICD10: R05.1 - suspect viral - Discussed supportive care treatment with fluids, rest and analgesia. Patient will notify the office in 7-10 days if sx are not improving or are worsening, ok to send inantibiotic at that time, such as amoxicillin. - RAPID STREP TEST B/O - COVID & INFLUENZA A/B & RSV NAAT, ROUTINE 8. Otalgia of both ears - ICD9: 388.70, ICD10: H92.03 - suspect viral - Discussed supportive care treatment with fluids, rest and analgesia. Patient will notify the office in 7-10 days if sx are not improving or are worsening, ok to send inantibiotic at that time, such as amoxicillin. - RAPID STREP TEST B/O - COVID & INFLUENZA A/B & RSV NAAT, ROUTINE Demetra Navarrete APRN.WARP DYEING TENDER documented in this encounterRegency Hospital [facility]02-01-2024 Miscellaneous Notes* Telephone Encounter - Greta Watts RPh - 12/18/2023 2:16 PM EST Forms received. Faxed completed renewal application to [facility] Greta Watts PharmD Primary Care Clinical Law Writer * Telephone Encounter - Greta Watts RPh - 12/18/2023 1:[address] signed form in pharmacy mailbox. To be faxed to air quality specialist with additional paperwork to complete renewal application. Thanks! Greta Watts PharmD Primary Care Clinical Law Writer * Telephone Encounter - Mariano Pearce DO - 12/17/2023 10:41 PM EST Forms are complete, please fax Mariano Pearce DO * Telephone Encounter - Trisha Marroquin - 12/15/2023 4:25 PM EST Received and placed on JG desk Trisha Marroquin * Telephone Encounter - Greta Watts RPh - 12/15/2023 2:06 PM EST Patient's [employer] renewal application needing to be resubmitted given delay in approval. Needs provider signature. Faxed provider portion to office for provider signature. Once provider signature received, please place in pharmacy mailbox. Will submit to [employer] at that time. Greta Watts PharmD Primary Care Clinical Law Writer documented in this encounterRegency Hospital [facility]12-20-2023 Miscellaneous Notes* Telephone Encounter - Greta Watts RPh - 11/05/2023 10:04 AM EST Called and spoke with hospital pharmacy technician at [facility] (pharmacy for [employer] medications). States patient is still enrolled through 11/16/23 and due for a refill; however, Rx needs additional refills. States once refills received, shipment will be sent to patient by the end of the week. Sent refill for Basaglar to [facility]. Called and spoke with patient. Patient states she took her last dose of 46 units Basaglar this morning and won't have enough for this evening. Will send short- term supply to local pharmacy to use in meantime while awaiting supply from [facility]. Greta Watts PharmD Primary Care Clinical Law Writer * Telephone Encounter - Vanessa Wyatt RN - 11/05/2023 9:35 AM EST Pt called in and reports she saw Greta Watts Pharmacist last week, and is out of insulin Basaglar. She reports she took her morning does, but has none left. She said the pharmacist told herto call if she needed anything, and Pt states she needs to get this insulin. Pt states she had dropped off her [employer] paperwork. Pt needs a short term supply she can get today, she states she would use [facility] in [place] and [facility] is her mail in senior care pharmacy. Please call and advise. documented in this encounterRegency Hospital [facility]12-14-2023 History of Present illness Narrative* Greta Watts, [facility] - 10/30/2023 2:00 PM EST Primary Care Pharmacy Visit CC (Reason for Consult): (E11.22, N18.30, Z79.4) Type 2 diabetes mellitus with stage 3 chronic kidney disease, with long-term current use of insulin, unspecified whether stage 3a or 3b CKD (HCC) (primary encounter diagnosis) Goal(s): A1c <8% Last Collaborating Provider Visit: 10/15/[address] Ramses Ramirez Case is a 72 year old female presenting for follow up visit in person. [facility]. Last Pharmacy Visit: 09/11/23 - Basaglar decreased to 46 units twice daily, Humalog dose with breakfast decreased to 10 units HPI: Reports doing well overall States she's had a couple lows, had one yesterday afternoon. Ate something and then fell asleep for3 hours. Had a couple other ones afternoon times, these were more mild. States in the afternoon before lunchtime States she has been baking for the holidays, so noticing some higher readings Is running out of Basaglar supply - needs renewal completed. Has half 1 and a half pens left Current DM Medications: Basaglar 46 units twice dialy Humalog 10 units with breakfast, 16 units with lunch, 16 units with dinner Previously Trialed DM Meds: Glipizide - hypoglycemia Metformin ER - GI upset Liraglutide - cost-prohibitive; pt felt it did not offer much BG-lowering Trulicity - stomach issues + HIPOLITO Jardiance - unable to afford (income above eligibility limits for pap) Diet Denies any changes recently Breakfast around 8-9a Lunch around 2-3p Sometimes skips dinner GLYCEMIC CONTROL: Glucometer present at visit: Yes Hypoglycemia: Yes CGM Data Sensor usage: 49% (Goal >70%) Hypoglycemia events: 0%, 5 events in last 30 days, 1 between 6a-12p, 4 between 12-6p Date range Overall AVG 12a-6a 6a-12p 12p-6p 6p-12a TIME IN RANGE 7 day 219 246 189 166 321 ABOVE 51% 14 day 196 234 175 178 236 IN (80-180) 49% 30 day 176 206 155 169 205 BELOW 0% 90 day Past medical history reviewed. ALLERGIES Allergen Reactions Crestor [Rosuvastat* Other: See Comments Legs achy Niacin Itching Erythromycin GI Upset Iodine Rash Latex reddness Lescol [Fluvastatin* GI Upset Lipitor [Atorvastat* Intolerance Muscle aching Naprosyn [Naproxen] uncertain Pravastatin Myalgia Arm pain Rsqatfx-Amz-Fky Red* Intolerance Sulfa (Sulfonamide * Hives Trulicity [Dulaglut* GI Upset Vomiting, diarrhea Hospitalized Vibramycin [Doxycyc* GI Upset Vioxx [Rofecoxib] Swelling Zocor [Simvastatin] uncertain Current Outpatient Medications Medication Sig Dispense Refill dicyclomine (BENTYL) 10 mg capsule Take 1 capsule by mouth before meals and at bedtime. As needed for diarrhea 60 capsule 1 levothyroxine (LEVOXYL) 125 mcg tablet Take 1 tablet by mouth once daily. Take on empty stomach. For thyroid. 90 tablet 1 enalapril (VASOTEC) 20 mg tablet Take 1 tablet by mouth two times a day. 180 tablet 3 LORazepam (ATIVAN) 2 mg tab Take 1 tablet by mouth at bedtime as needed for up to 30 days. 30 tablet 0 ezetimibe (ZETIA) 10 mg tablet Take 1 tablet by mouth once daily. For cholesterol 90 tablet 3 insulin lispro (HUMALOG KWIKPEN INSULIN) 100 unit/mL Inject 10 units with breakfast, 16 units with lunch, and 16 units with dinner + sliding scale insulin (1 unit for every 50 >150 pts). Gets through [facility]. insulin glargine 100 unit/mL (3 mL) Inject 46 units SQ in the AM and 46 units SQ in the evening. Basaglar - through [facility]. omeprazole (PRILOSEC) 40 mg capsule Take 1 capsule by mouth once daily. 90 capsule 3 colestipol (COLESTID) 1 gram tablet Take 1 tablet by mouth twice daily before meals. 60 tablet 2 flash glucose sensor (FREESTYLE BETSEY 14 DAY SENSOR) kit Type 2 diabetes uncontrolled, insulin dependent, Apply sensor to back of arm to check blood sugars as directed. Change sensor every 2 weeks and rotate arms. 6 Kit 2 oxyCODONE-acetaminophen (PERCOCET) 5-325 mg tablet Take 1 tablet by mouth every 8 hours as needed for pain. Triamcinolone Acetonide 0.05 % oint Apply to affected area. Blood-Glucose Meter Use to check blood sugar daily 1 Each 0 blood sugar diagnostic (BLOOD GLUCOSE TEST) test strip Use to check blood sugar four times daily 400 Each 3 Lancets lancets Use to check blood sugar four times daily 400 Each 3 citalopram (CELEXA) 20 mg tablet TAKE 1 TABLET DAILY 90 tablet 3 omega-3 DHA-EPA (FISH OIL) 1,200 (144-216) mg capsule Take 1 capsule by mouth once daily. metoprolol tartrate, short acting, (LOPRESSOR) 100 mg tablet TAKE 1 TABLET TWICE A DAY 180 tablet 3 Insulin [place], Disposable, (BD ULTRA-FINE PATRICIO PEN NEEDLE) 32 gauge x 5/32 Use 4 pen needles daily with Basaglar and Humalog 360 Each 3 rosuvastatin (CRESTOR) 5 mg tablet take 1 tablet by mouth at bedtime 90 tablet 5 flash glucose scanning reader (FREESTYLE BETSEY 14 DAY READER) Use to check blood sugar as directed.1 Each 0 colchicine (COLCRYS) 0.6 mg tablet Take 1 tablet by mouth twice daily. For acute gout flare up 14 tablet 1 apremilast (OTEZLA) 30 mg tablet Take 30 mg by mouth once daily. acetaminophen (TYLENOL) 325 mg tablet Take 2 tablets by mouth every 6 hours as needed for Pain. 60 tablet 0 cholecalciferol (VITAMIN D3) 50 mcg (2,000 unit) tablet Take one tablet by mouth once daily Friday through Friday. Current Facility-Administered Medications Medication Dose Route Frequency Provider Last Rate Last Admin perflutren lipid microspheres 1.3 mL in NaCl (PF) 0.9% 10 mL injection (DEFINITY) INTRAVENOUS DIRECTED PRN Mariano Pearce, sodium chloride 0.9 % (flush) 10 mL (BD POSIFLUSH) 10 mL INTRAVENOUS DIRECTED PRN Mariano Pearce DO Pill bottles are not present. Adherence: denies missed doses. Rx coverage: Payor: O MEDICARE / Plan: O MEDADVANTAGE HMO / Product Type: HMO / Medications affordable? Enrolled in [employer] (Basaglar and Humalog) PHARMACOTHERAPY PREVENTATIVE MEDS: On STEPHANIA/ARB: Yes On Statin: Yes On ASA: No EXAM: There were no vitals taken for this visit. Last 3 Encounter BP Readings: Date: BP: 10/15/2023 110/80 07/30/2023 130/70 07/15/2023 132/72 Wt: 76.2 kg (168 lb) BMI: 30.73 kg/(m^2) LABS: Lab Results Component Value Date HBA1C 7.1 07/30/2023 HBA1C 7.6 04/23/2023 HBA1C 8.1 01/23/2023 HBA1C 8.2 10/25/2022 HBA1C 7.9 06/01/2021 HBA1C 8.5 02/27/2021 HBA1C 8.0 11/03/2020 Glucose 127 09/17/2023 BUN 23 09/17/2023 Creatinine 1.12 09/17/2023 Sodium 136 09/17/2023 Potassium 4.4 09/17/2023 Chloride 107 09/17/2023 CO2 19 09/17/2023 Protein, Total 6.5 09/17/2023 Albumin 4.0 09/17/2023 Calcium 9.2 09/17/2023 Alkaline Phosphatase 134 09/17/2023 Bilirubin, Total 0.2 09/17/2023 AST 29 09/17/2023 ALT 28 09/17/2023 Lab Results Component Value Date CHOL 131 01/23/2023 CHOL 213 11/03/2020 CHOL 195 08/03/2020 LDL 65 01/23/2023 LDL 116 11/03/2020 LDL 105 08/03/2020 HDL 34 01/23/2023 HDL 34 11/03/2020 HDL 34 08/03/2020 TG 161 01/23/2023 TG 314 11/03/2020 TG 279 08/03/2020 Albumin/Creat Ratio (mg/g) Date Value 07/26/2022 48 (H) eGFR-All Other Races (.) Date Value 06/01/2021 49 Estimated Glomerular Filtration Rate (mL/min/1.73m ) Date Value 09/17/2023 53 ASSESSMENT/PLAN: 1. Type 2 diabetes mellitus with stage 3 chronic kidney disease, with long-term current use of insulin, unspecified whether stage 3a or 3b CKD (HCC) - ICD9: 250.40, 585.3, V58.67, ICD10: E11.22, N18.30, Z79.4 - Controlled. A1c at goal <8%. CGM shows TIR not at goal, with less hypoglycemia; higher readings likely due to fluctuation in diet with the holidays coming up. Will continue current doses for now. Will complete 2023 renewal for [employer]. - Continue current medications - Statin prescribed - rosuvastatin - Blood glucose monitoring on a continuous glucose monitoring schedule - Counseled on healthy diet and regular exercise - Follow up in 3 months, sooner should any other issues arise. - Advised patient to drop off proof of income paperwork to be submitted for [employer] application Follow Up: Next PCP visit: 01/15/24 Next PharmD visit: 01/29/24 Greta Watts PharmD Primary Care Clinical Law Writer The majority of the pharmacy visit (> 50%) was spent counseling and/or coordinating care for thepatient. interaction: face to face time was 30 minutes. documented in this encounterRegency Hospital [facility]12-14-2023 Instructions* Patient Instructions* Greta Watts RPh - 10/30/2023 2:00 PM EST Drop off the proof of income form to the office and have them place in pharmacist mailbox documented in this encounterRegency Hospital [facility]12-05-2023 Miscellaneous Notes* Telephone Encounter - Greta Watts RPh - 10/21/2023 2:08 PM EST Noted. Referral to pharmacy patient assistance team placed last week to assist in initiating renewal application. Will follow up and let patient know status. Patient scheduled for PharmD f/up on 10/30/23; will request patient brings in proof of income needed for application and will obtain patient signatures. Called and spoke with patient. Patient verbalized understanding of above plan and will bring EZEQUIEL ambrizxt week's visit. Greta Watts, PharmProsper Primary Care Clinical Law Writer * Telephone Encounter - Kasandra Monae LPN - 10/21/2023 11:54 AM EST Pt is calling to request pharmacist renew rx to [facility] for Basaglar insulin. Pt reportsshe doesn't want to wait too long because she is afraid she will run out of insulin. Kasandra Monae LPN documented in this encounterRegency Hospital [facility]11-29-2023 History of Present illness Narrative* Mariano Pearce DO - 10/15/2023 10:16 PM EST Patient presents with: Follow Up HPI: Angeli Ramirez Case is a 72 year old female who presents to the office today for review of health conditions. Concerns today: Diarrhea seems to be more rare, improving, hx of cholecystectomy about 4 months ago, didn't feel the colestipol medication helped prevent these symptoms much though Hypothyroidism, taking her levothyroxine medication 100 mcg a day,has had fatigue, working on trying to lose weight as well TSH Date Value Ref Range Status 09/17/2023 0.859 0.270 - 4.200 mIU/L Final Free T4 Date Value Ref Range Status 09/17/2023 1.2 0.9 - 1.7 ng/dL Final Free T3 2.0 09/17/2023 . Case has past history of diabetes. Since our last visit she denies excessive thirst or increased frequency of urination, chest pain or dyspnea , new or unusual visual symptoms, and low sugar/hypoglycemic reactions. Depression- no. Follows a diabetic diet most of the time. She is compliant with medication(s) and is tolerating med(s) without any side effects. She reports checking her glucose tika once a day schedule with sugars in the <200 range. Patient's last HgA1C was Hemoglobin A1C (%) Date Value 04/23/2023 7.6 01/23/2023 8.1 06/01/2021 7.9 02/27/2021 8.5 Hemoglobin A1C (POCT) (%) Date Value 07/30/2023 7.1 ) Last Ophthalmology exam was within the past 12 months Ms. Rees reports history of hyperlipidemia. Current therapy includes ezetimibe (Zetia) 10 mg. Denies side effects of muscle weakness or achiness. Her most recent lipid panels are reviewed. Cholesterol, Total (mg/dL) Date Value 01/23/2023 131 08/03/2020 195 Total Cholesterol, Nonfasting (mg/dL) Date Value 11/03/2020 213 HDL Cholesterol (mg/dL) Date Value 01/23/2023 34 08/03/2020 34 HDL Cholesterol, Nonfasting (mg/dL) Date Value 11/03/2020 34 LDL Cholesterol (mg/dL) Date Value 01/23/2023 65 08/03/2020 105 LDL Cholesterol, Nonfasting (mg/dL) Date Value 11/03/2020 116 Triglyceride (mg/dL) Date Value 01/23/2023 161 08/03/2020 279 Triglycerides, Nonfasting (mg/dL) Date Value 11/03/2020 314 Ms. Rees indicates a history of hypertension and states that she is feeling well and denies any symptoms referable to elevated blood pressure. Specifically denies headache, chest pain, palpitations, dyspnea, and peripheral edema. Patient denies any side effects of her medication(s) and is compliantwith their regimen. Last 3 Encounter BP Readings: Date: BP: 10/15/2023 110/80 07/30/2023 130/70 07/15/2023 132/72 She watches her diet for sodium, low fat and low cholesterol most of the time. She does not check BP's generally. Angeli gets minimal exercise. PAST MEDICAL HISTORY Diagnosis Date Advance care planning 04/23/2022 daughter Rebecca Rees is medical POA per patient Allergic rhinitis, cause unspecified Allergic rhinitis Arthritis Benign hypertensive heart disease without heart failure BPPV (benign paroxysmal positional vertigo) Chronic kidney disease (CKD) stage G3a/A2, moderately decreased glomerular filtration rate (GFR) between 45-59 mL/min/1.73 square meter and albuminuria creatinine ratio between 30-299 mg/g (HCC) Diverticulitis Esophageal reflux Fatty liver Fatty liver Fibromyalgia Gastric polyp 07/04/2014 Dr. Spence, needs repeat EGD in 01/01 Gout right great toe Hernia of other specified sites of abdominal cavity without mention of obstruction or gangrene HIATAL Hypertension IBS (irritable bowel syndrome) Irritable bowel syndrome Leiomyoma of uterus Other and unspecified hyperlipidemia PONV (postoperative nausea and vomiting) 03/11/2018 Renal calculi Snoring Type II or unspecified type diabetes mellitus without mention of complication, not stated as uncontrolled Unspecified hemorrhoids without mention of complication Hemorrhoids Unspecified hypothyroidism PAST SURGICAL HISTORY Procedure Laterality Date APPENDECTOMY APPENDECTOMY COLONOSCOPY FLX DX W/COLLJ SPEC WHEN PFRMD 07/04/2014 Colonoscopy, Dr. Spence COLONOSCOPY SCREENING 07/04/2023 Titus EGD W/O BRSH SPEC VARICIES INJ 07/04/2023 [facility]itus ESOPHAGOGASTRODUODENOSCOPY TRANSORAL DIAGNOSTIC 07/04/2014 EGD, Dr. Spence ESOPHAGOGASTRODUODENOSCOPY TRANSORAL DIAGNOSTIC 05/29/2015 EGD LAPAROSCOPIC CHOLECYSTECTOMY 06/04/2023 lap tosha with grams Dr Muro LAPS ABD PRTM&OMENTUM DX W/WO SPEC BR/WA SPX 1989 Laparoscopy and scar tissue seen LIG/TRNSXJ FLP TUBE ABDL/VAG APPR UNI/BI Tubal ligation PAST SURGICAL HISTORY OF [place]PE[place] TUNNEL/BILATERAL PAST SURGICAL HISTORY OF 1970 exploratory lap and left salpingectomy for bad infection POLYPECTOMY SNARE STIFF WIRE 07/04/2014 gastric TONSILLECTOMY HX TONSILLECTOMY PRIMARY/SECONDARY <AGE 13 Tonsillectomy VAGINAL HYSTERECTOMY VAGINAL HYSTERECTOMY UTERUS 250 GM/< 03/2018 Hysterectomy, vaginal Social History Tobacco Use Smoking status: Never Smokeless tobacco: Never Vaping Use Vaping Use: Never used Substance Use Topics Alcohol use: No Drug use: No FAMILY HISTORY Problem Relation Age of Onset Hypertension Mother other (DEMENTIA) Mother onset in her 70's Tremor Mother ? Parkinson's Diabetes Father Hypertension Father Lipids Father Anesthesia Problems Sister at 19 yo cardiac arrest during appendectomy, did not survive, Cancer Maternal Grandmother gallbladder Allergies: ALLERGIES Allergen Reactions Crestor [Rosuvastat* Other: See Comments Legs achy Niacin Itching Erythromycin GI Upset Iodine Rash Latex reddness Lescol [Fluvastatin* GI Upset Lipitor [Atorvastat* Intolerance Muscle aching Naprosyn [Naproxen] uncertain Pravastatin Myalgia Arm pain [facility] Red* Intolerance Sulfa (Sulfonamide * Hives Trulicity [Dulaglut* GI Upset Vomiting, diarrhea Hospitalized Vibramycin [Doxycyc* GI Upset Vioxx [Rofecoxib] Swelling Zocor [Simvastatin] uncertain Current Meds: enalapril (VASOTEC) 20 mg tablet^Take 1 tablet by mouth two times a day.^Disp: 180 tablet^Rfl: 3 LORazepam (ATIVAN) 2 mg tab^Take 1 tablet by mouth at bedtime as needed for up to 30 days.^Disp: 30tablet^Rfl: 0 ezetimibe (ZETIA) 10 mg tablet^Take 1 tablet by mouth once daily. For cholesterol^Disp: 90 tablet^Rfl: 3 insulin lispro (HUMALOG KWIKPEN INSULIN) 100 unit/mL^Inject 10 units with breakfast, 16 units with lunch, and 16 units with dinner + sliding scale insulin (1 unit for every 50 >150 pts). Gets through [employer].^Disp: ^Rfl: insulin glargine 100 unit/mL (3 mL)^Inject 46 units SQ in the AM and 46 units SQ in the evening. Basaglar - through [employer].^Disp: ^Rfl: omeprazole (PRILOSEC) 40 mg capsule^Take 1 capsule by mouth once daily.^Disp: 90 capsule^Rfl: 3 colestipol (COLESTID) 1 gram tablet^Take 1 tablet by mouth twice daily before meals.^Disp: 60 tablet^Rfl: 2 flash glucose sensor (FREESTYLE BETSEY 14 DAY SENSOR) kit^Type 2 diabetes uncontrolled, insulin dependent, Apply sensor to back of arm to check blood sugars as directed. Change sensor every 2 weeks and rotate arms.^Disp: 6 Kit^Rfl: 2 oxyCODONE-acetaminophen (PERCOCET) 5-325 mg tablet^Take 1 tablet by mouth every 8 hours as needed for pain.^Disp: ^Rfl: Triamcinolone Acetonide 0.05 % oint^Apply to affected area.^Disp: ^Rfl: Blood-Glucose Meter^Use to check blood sugar daily^Disp: 1 Each^Rfl: 0 blood sugar diagnostic (BLOOD GLUCOSE TEST) test strip^Use to check blood sugar four times daily^Disp: 400 Each^Rfl: 3 citalopram (CELEXA) 20 mg tablet^TAKE 1 TABLET DAILY^Disp: 90 tablet^Rfl: 3 omega-3 DHA-EPA (FISH OIL) 1,200 (144-216) mg capsule^Take 1 capsule by mouth once daily.^Disp: ^Rfl: metoprolol tartrate, short acting, (LOPRESSOR) 100 mg tablet^TAKE 1 TABLET TWICE A DAY^Disp: 180 tablet^Rfl: 3 Insulin [place], Disposable, (BD ULTRA-FINE PATRICIO PEN NEEDLE) 32 gauge x 5/32^Use 4 pen needles daily with Basaglar and Humalog^Disp: 360 Each^Rfl: 3 rosuvastatin (CRESTOR) 5 mg tablet^take 1 tablet by mouth at bedtime^Disp: 90 tablet^Rfl: 5 flash glucose scanning reader ([employer] BETSEY 14 DAY READER)^Use to check blood sugar as directed.^Disp: 1 Each^Rfl: 0 colchicine (COLCRYS) 0.6 mg tablet^Take 1 tablet by mouth twice daily. For acute gout flare up^Disp: 14 tablet^Rfl: 1 apremilast (OTEZLA) 30 mg tablet^Take 30 mg by mouth once daily. ^Disp: ^Rfl: cholecalciferol (VITAMIN D3) 50 mcg (2,000 unit) tablet^Take one tablet by mouth once daily Friday through Friday.^Disp: ^Rfl: dicyclomine (BENTYL) 10 mg capsule^Take 1 capsule by mouth before meals and at bedtime. As needed for diarrhea^Disp: 60 capsule^Rfl: 1 levothyroxine (LEVOXYL) 125 mcg tablet^Take 1 tablet by mouth once daily. Take on empty stomach. For thyroid.^Disp: 90 tablet^Rfl: 1 Lancets lancets^Use to check blood sugar four times daily^Disp: 400 Each^Rfl: 3 acetaminophen (TYLENOL) 325 mg tablet^Take 2 tablets by mouth every 6 hours as needed for Pain.^Disp: 60 tablet^Rfl: 0 Review of Systems: The remainder of the review of systems is negative. PE: 10/15/23 1150 BP: 110/80 Pulse: 68 Resp: 20 Temp: 36 C (96.8 F) TempSrc: Left Tympanic Weight: 76.2 kg (168 lb) Gen: A&O, NAD, non-toxic appearing, Pleasant, cooperative HEENT: NT/AC, PERRLA, EOMs intact b/l, nares clear and patent b/l, pharynx without erythema, exudate or lesions. Uvula midline. EACs without erythema or debris. TMs pearly villanueva with intact landmarks b/l. Neck: supple, No cervical LAD, no thyromegaly, no carotid bruits CV: RRR, normal S1 and S2, no murmurs, no gallops, no rubs, Pulses 2+ and symmetric in UE and LE b/l Lungs: normal respiratory effort, CTA b/l, no wheezing or rhonchi or rales Abd: soft, overweight, NT, ND, +BS, no hepatosplenomegaly MS: FROM all 4 extremities Neuro: CN II-XII intact b/l, strength 5/5 b/l UE and LE, DTRs 2/4 UE and LE, sensation intact. Skin: warm, dry, intact, No rashes or lesions on exposed skin. Foot exam: Monofilament wnl on right and left feet. ASSESSMENT/PLAN: 1. Uncontrolled type 2 diabetes mellitus with hyperglycemia (HCC) - ICD9: 250.02, ICD10: E11.65 (primary diagnosis) - Improving control - Continue current medications - Blood glucose monitoring on a once daily schedule - Counseled on healthy diet and regular exercise - Discussed need for and benefit of weight loss. BMI 30.73 kg/(m^2) - HGB A1C - COMP METABOLIC PANEL - CBC 2. Diarrhea, unspecified type - ICD9: 787.91, ICD10: R19.7 rx for prn use since didn't see much improvement with colestipol, next option is levsin if still not improving - DICYCLOMINE 10 MG CAPSULE 3. Acquired hypothyroidism - ICD9: 244.9, ICD10: E03.9 - Instructed patient on importance of taking on an empty stomach either first thing in the morning or at bedtime. - increase current dose of Synthroid 0.125 mg - LEVOTHYROXINE 125 MCG TABLET - TSH BLD - T4 FREE/FREE THYROX 4. Hypertension, unspecified type - ICD9: 401.9, ICD10: I10 - Controlled - Continue current medications - Recommend home blood pressure monitoring, to bring results to next visit - Encouraged sodium restriction, DASH or Mediterranean diet - Recommend regular aerobic exercise 5. Dyslipidemia - ICD9: 272.4, ICD10: E78.5 - Improving control - Continue current medications - Counseled on healthy diet and regular exercise - LIPID PANEL BASIC 6. Platelets decreased (HCC) - ICD9: 287.5, ICD10: D69.6 Stable Mariano Pearce DO To ER if develops chest pain, shortness of breath, or severe worsening of symptoms. Discussed risks, benefits, alternatives, and potential side effects of medications. Patient expressed understanding and agreed with the plan. Mariano Pearce DO [address] [place] [address] documented in this encounterReg[facility]-29-2023 Instructions* Patient Instructions* Mariano Pearce DO - 10/15/2023 12:34 PM EST Start on SloFe iron supplement with 45-67 mg of iron it it, take once a day with a meal Use Bentyl 20 mg as needed for diarrhea- can take this with a meal documented in this encounterRegency [facility]11-28-2023 Miscellaneous Notes* Telephone Encounter - Greta Watts RPh - 10/14/2023 10:16 AM EST Placed referral to pharmacy PAP team to initiate 2023 renewal for [employer] application documented in this encounterRegency Hospital [facility]11-22-2023 Miscellaneous Notes* Telephone Encounter - Rhianna Alvarado Ma - 10/08/2023 10:56 AM EST No PA is needed for this drug looks like new rx needs sent Please send, did call patient and let her know that PA not needed but last rx sent was 10/08. Rhianna Alvarado Ma * Telephone Encounter - Valentina Emery - 10/08/2023 10:47 AM EST Angeli Rees is calling Mariano Pearce DO today to request Insurance Authorization for patient's enalapril. Patient has been identified by name and birthdate. Duration of symptoms: N/A Person calling: self Call patient at: at cell [phone] (home) [phone] (cell) Was an appointment scheduled: Closing statement: Valentina Ron Pss documented in this encounterRegency Hospital [facility]11-16-2023 Miscellaneous Notes* Telephone Encounter - Eliza Blue OCCA - 10/02/2023 3:18 PM EST FANY 07/30/23 NOV 10/15/23 * Telephone Encounter - Emeli Astudillo - 10/02/2023 8:46 AM EST Patient has been identified by name and date of : Yes Requested Prescriptions Pending Prescriptions Disp Refills levothyroxine (SYNTHROID) 112 mcg tablet 90 tablet 3 Sig: Take 1 tablet by mouth PO daily in AM. For thyroid. RX INSTRUCTIONS: Patient aware RX escripted to mail away pharmacy. No need to notify patient. Emeli Champagne documented in this encounterRegency Hospital [facility]11-16-2023 Miscellaneous Notes* Telephone Encounter - Naya Ruvalcaba APRN.CNP - 10/02/2023 10:56 AM EST PDMP website checked and validated. All prescriptions have been APPROPRIATELY filled. No suspiciousactivity was identified. 10/02/2023 by Naya Ruvalcaba APRN.CNP The following approved medication requests have been transmitted electronically. Requested Prescriptions Signed Prescriptions Disp Refills LORazepam (ATIVAN) 2 mg tab 30 tablet 0 Sig: Take 1 tablet by mouth at bedtime as needed for up to 30 days. Authorizing Provider: NAYA RUVALCABA APRN.CNP * Telephone Encounter - Kim Love LPN - 10/02/2023 10:47 AM EST Fany--07/30/23 Nov--10/15/23 Last refill--09/24/23 30 with 0 refills Last labs--09/17/23 * Telephone Encounter - Sabine Rao - 10/02/2023 8:55 AM EST Patient has been identified by name and date of : Yes Requested Prescriptions Pending Prescriptions Disp Refills LORazepam (ATIVAN) 2 mg tab 30 tablet 0 Sig: Take 1 tablet by mouth at bedtime as needed for up to 30 days. RX INSTRUCTIONS: Patient aware RX will be sent to pharmacy. No need to notify patient. Sabine Rao documented in this encounterRegency Hospital [facility]11-08-2023 Miscellaneous Notes* Telephone Encounter - Naya Ruvalcaba APRN.CNP - 09/24/2023 3:17 PM EST PDMP website checked and validated. All prescriptions have been APPROPRIATELY filled. No suspiciousactivity was identified. 09/24/2023 by Naya Ruvalcaba APRN.CNP The following approved medication requests have been transmitted electronically. Requested Prescriptions Signed Prescriptions Disp Refills LORazepam (ATIVAN) 2 mg tab 30 tablet 0 Sig: Take 1 tablet by mouth at bedtime as needed for up to 30 days. Authorizing Provider: NAYA RUVALCABA APRN.CNP * Telephone Encounter - Josiane Moreira - 09/22/2023 9:10 AM EST Patient has been identified by name and date of : Yes Requested Prescriptions Pending Prescriptions Disp Refills LORazepam (ATIVAN) 2 mg tab 30 tablet 0 Sig: Take 1 tablet by mouth at bedtime as needed for up to 30 days. RX INSTRUCTIONS: Patient aware RX will be sent to pharmacy. No need to notify patient. Josiane Champagne documented in this encounterRegency Hospital [facility]10-27-2023 Evaluation note* Diagnosis Type 2 diabetes mellitus with stage 3 chronic kidney disease, with long-term current use of insulin, unspecified whether stage 3a or 3b CKD (HCC)- Primary documented in this encounter [facility]10-26-[facility] History of Present illness Narrative* Greta Watts [facility] - 09/11/2023 3:00 PM EDT Primary Care Pharmacy Visit CC (Reason for Consult): (E11.22, N18.30, Z79.4) Type 2 diabetes mellitus with stage 3 chronic kidney disease, with long-term current use of insulin, unspecified whether stage 3a or 3b CKD (HCC) (primary encounter diagnosis) Goal(s): A1c <8% Last Collaborating Provider Visit: 07/30/[address] Ramses Ramirez Case is a 72 year old female presenting for follow up visit in person. [facility]. Last Pharmacy Visit: 04/10/23 - Humalog dose with breakfast decreased to 12 units HPI: Reports doing well and feeling well. States BGs have been very good recently. Reports that if having a low BG before she eats (if BG<100), skips the Humalog. This has occurred maybe 3 times in last 2 weeks. Most of the time happening around lunchtime. Has 2 boxes left of Basaglar left at home Current DM Medications: Humalog 11-01-14 - taking 11-01-16 Basaglar 52 units twice daily Previously Trialed DM Meds: Glipizide - hypoglycemia Metformin ER - GI upset Liraglutide - cost-prohibitive; pt felt it did not offer much BG-lowering Trulicity - stomach issues + HIPOLITO Jardiance - unable to afford (income above eligibility limits for pap) Diet Breakfast - may just have a piece of toast or yogurt; has cereal occasionally Lunch around ~12-1pm GLYCEMIC CONTROL: Glucometer present at visit: Yes Hypoglycemia: Yes Hypoglycemia awareness: Yes; treats with OJ CGM Data Sensor usage: 43% (Goal >70%) Hypoglycemia events: 5%, 4 events (2 events 12a-6a, 2 events 12-6p) Date range Overall AVG 12a-6a 6a-12p 12p-6p 6p-12a TIME IN RANGE 7 day 142 140 117 159 232 ABOVE 25% 14 day 143 147 119 152 213 IN (80-180) 70% 30 day 136 145 121 140 150 BELOW 5% 90 day 138 147 125 140 147 Past medical history reviewed. ALLERGIES Allergen Reactions Crestor [Rosuvastat* Other: See Comments Legs achy Niacin Itching Erythromycin GI Upset Iodine Rash Latex reddness Lescol [Fluvastatin* GI Upset Lipitor [Atorvastat* Intolerance Muscle aching Naprosyn [Naproxen] uncertain Pravastatin Myalgia Arm pain Zxziabc-Bht-Kdl Red* Intolerance Sulfa (Sulfonamide * Hives Trulicity [Dulaglut* GI Upset Vomiting, diarrhea Hospitalized Vibramycin [Doxycyc* GI Upset Vioxx [Rofecoxib] Swelling Zocor [Simvastatin] uncertain Current Outpatient Medications Medication Sig Dispense Refill LORazepam (ATIVAN) 2 mg tab Take 1 tablet by mouth at bedtime as needed for up to 30 days. 30 tablet 0 omeprazole (PRILOSEC) 40 mg capsule Take 1 capsule by mouth once daily. 90 capsule 3 omeprazole (PRILOSEC) 40 mg capsule Take 1 capsule by mouth once daily. 7 capsule 0 colestipol (COLESTID) 1 gram tablet Take 1 tablet by mouth twice daily before meals. 60 tablet 2 flash glucose sensor (FREESTYLE BETSEY 14 DAY SENSOR) kit Type 2 diabetes uncontrolled, insulin dependent, Apply sensor to back of arm to check blood sugars as directed. Change sensor every 2 weeks and rotate arms. 6 Kit 2 oxyCODONE-acetaminophen (PERCOCET) 5-325 mg tablet Take 1 tablet by mouth every 8 hours as needed for pain. Triamcinolone Acetonide 0.05 % oint Apply to affected area. insulin lispro (HUMALOG KWIKPEN INSULIN) 100 unit/mL Inject 12 units with breakfast, 16 units with lunch, and 14 units with dinner + sliding scale insulin (1 unit for every 50 >150 pts). Gets through [employer]. Blood-Glucose Meter Use to check blood sugar daily 1 Each 0 blood sugar diagnostic (BLOOD GLUCOSE TEST) test strip Use to check blood sugar four times daily 400 Each 3 Lancets lancets Use to check blood sugar four times daily 400 Each 3 citalopram (CELEXA) 20 mg tablet TAKE 1 TABLET DAILY 90 tablet 3 omega-3 DHA-EPA (FISH OIL) 1,200 (144-216) mg capsule Take 1 capsule by mouth once daily. metoprolol tartrate, short acting, (LOPRESSOR) 100 mg tablet TAKE 1 TABLET TWICE A DAY 180 tablet 3 insulin glargine (LANTUS SOLOSTAR, BASAGLAR KWIKPEN) 100 unit/mL (3 mL) Inject 52 units SQ in the AM and 52 units SQ in the evening. Basaglar - through [employer]. 45 Each 2 Insulin [place], Disposable, (BD ULTRA-FINE PATRICIO PEN NEEDLE) 32 gauge x 5/32 Use 4 pen needles daily with Basaglar and Humalog 360 Each 3 rosuvastatin (CRESTOR) 5 mg tablet take 1 tablet by mouth at bedtime 90 tablet 5 enalapril (VASOTEC) 20 mg tablet Take 1 tablet by mouth twice daily. 180 tablet 3 levothyroxine (SYNTHROID) 112 mcg tablet Take 1 tablet by mouth PO daily in AM. For thyroid. 90 tablet 3 ezetimibe (ZETIA) 10 mg tablet Take 1 tablet by mouth once daily. For cholesterol 90 tablet 3 flash glucose scanning reader (FREESTYLE BETSYE 14 DAY READER) Use to check blood sugar as directed.1 Each 0 colchicine (COLCRYS) 0.6 mg tablet Take 1 tablet by mouth twice daily. For acute gout flare up 14 tablet 1 apremilast (OTEZLA) 30 mg tablet Take 30 mg by mouth once daily. acetaminophen (TYLENOL) 325 mg tablet Take 2 tablets by mouth every 6 hours as needed for Pain. 60 tablet 0 cholecalciferol (VITAMIN D3) 50 mcg (2,000 unit) tablet Take one tablet by mouth once daily Friday through [employer]. Current Facility-Administered Medications Medication Dose Route Frequency Provider Last Rate Last Admin perflutren lipid microspheres 1.3 mL in NaCl (PF) 0.9% 10 mL injection (DEFINITY) INTRAVENOUS DIRECTED PRN Mariano Pearce, DO sodium chloride 0.9 % (flush) 10 mL (BD POSIFLUSH) 10 mL INTRAVENOUS DIRECTED PRN Mariano Pearce, DO Pill bottles are not present. Adherence: denies missed doses. Rx coverage: Payor: [facility] MED[facility] / Plan: [facility] [employer]AD[employer] HMO / Product Type: HMO / Medications affordable? Enrolled in [employer] PAP (Basaglar and Humalog) PHARMACOTHERAPY PREVENTATIVE MEDS: On STEPHANIA/ARB: Yes On Statin: Yes On ASA: No EXAM: There were no vitals taken for this visit. Last 3 Encounter BP Readings: Date: BP: 07/30/2023 130/70 07/15/2023 132/72 07/04/2023 116/59 Wt: 76.2 kg (168 lb) BMI: 30.73 kg/(m^2) LABS: Lab Results Component Value Date HBA1C 7.1 07/30/2023 HBA1C 7.6 04/23/2023 HBA1C 8.1 01/23/2023 HBA1C 8.2 10/25/2022 HBA1C 7.9 06/01/2021 HBA1C 8.5 02/27/2021 HBA1C 8.0 11/03/2020 Glucose 115 06/11/2023 BUN 13 06/11/2023 Creatinine 1.15 06/11/2023 Sodium 138 06/11/2023 Potassium 5.0 06/11/2023 Chloride 104 06/11/2023 CO2 24 06/11/2023 Protein, Total 6.6 06/11/2023 Albumin 3.8 06/11/2023 Calcium 9.2 06/11/2023 Alkaline Phosphatase 123 06/11/2023 Bilirubin, Total 0.4 06/11/2023 AST 25 06/11/2023 ALT 20 06/11/2023 Lab Results Component Value Date CHOL 131 01/23/2023 CHOL 213 11/03/2020 CHOL 195 08/03/2020 LDL 65 01/23/2023 LDL 116 11/03/2020 LDL 105 08/03/2020 HDL 34 01/23/2023 HDL 34 11/03/2020 HDL 34 08/03/2020 TG 161 01/23/2023 TG 314 11/03/2020 TG 279 08/03/2020 Albumin/Creat Ratio (mg/g) Date Value 07/26/2022 48 (H) eGFR-All Other Races (.) Date Value 06/01/2021 49 Estimated Glomerular Filtration Rate (mL/min/1.73m ) Date Value 06/11/2023 51 ASSESSMENT/PLAN: 1. Type 2 diabetes mellitus with stage 3 chronic kidney disease, with long-term current use of insulin, unspecified whether stage 3a or 3b CKD (HCC) - ICD9: 250.40, 585.3, V58.67, ICD10: E11.22, N18.30, Z79.4 - Controlled. A1c at goal <8%, with further improvement with last check. CGM shows TIR at goal, with frequent hypoglycemia overnight and during the afternoon. Will reduce basal insulin and breakfast dose to reduce risk of hypoglycemia. Will need to renew [employer] PAP application at next visit. - Decrease Basaglar to 46 units twice daily - Decrease Humalog to 10 units with breakfast - Continue Humalog 16 units with lunch and 16 units with dinner - Blood glucose monitoring on a continuous glucose monitoring schedule - Counseled on healthy diet and regular exercise - Follow up in 6 weeks, sooner should any other issues arise. Follow Up: Next PCP visit: 10/15/23 Next PharmD visit: 10/30/23 Greta Watts, [facility] Clinical Law Writer The majority of the pharmacy visit (> 50%) was spent counseling and/or coordinating care for thepatient. interaction: face to face time was 40 minutes. documented in this encounterRegency Hospital [facility]10-26-2023 Instructions* Patient Instructions* Greta Watts RPh - 09/11/2023 3:00 PM EDT Decrease Basaglar to 46 units twice daily Decrease Humalog to 10 units with breakfast Continue Humalog 16 units with lunch and dinner documented in this encounterRegency Hospital [facility]10-10-2023 Miscellaneous Notes* Telephone Encounter - April Martínez RN - 08/26/2023 1:23 PM EDT See triage. * Telephone Encounter - Rosalva Brown - 08/25/2023 9:02 AM EDT Angeli aRmirez Case is calling Mariano Pearce DO today with concern regarding the diarrhea that continues at least four times a day even though patient is taking this new medication. Per patient she was up and down all night last night with constant diarrhea. The medication prescribed per patient does not seem to be working. colestipol (COLESTID) 1 gram tablet 60 tablet 2 07/30/2023 -- Sig: Take 1 tablet by mouth twice daily before meals. Patient has been identified by name and birthdate. Duration of symptoms: weeks Person calling: self Call patient at: on cell [phone] (cell) Was an appointment scheduled: No Closing statement: Symptom Call: Thank you for calling [facility], your call is very important. A nurse will call in approximately 2-4 hours during business hours. If this is an emergency, please contact 911. Rosalva Lin documented in this encounterRegency Hospital [facility]10-10-2023 Miscellaneous Notes* Telephone Encounter - April Martínez RN - 08/26/2023 12:54 PM EDT Patient reports 5 watery stools though the night only. Yesterday during the day none. This morning 1 stool only, was not normal, but not water. Ate at [employer] yesterday. Took AB within last couple weeks for sinus infection. Protocol recommends home care. Patient agreeable and will call back with any questions or concerns. Reason for Disposition MILD-MODERATE diarrhea (e.g., 1-6 times / day more than normal) Answer Assessment - Initial Assessment Questions 1. DIARRHEA SEVERITY: Moderate. 5 liquids stools during night. None yesterday. This morning 1 BM- not normal, but not diarrhea. No blood. 2. ONSET: Started in March, about 4 x's day- had gallbladder out- removed stones- colonoscopy- removed a couple polps- came back negative. EGD negative. 3. BM CONSISTENCY: Stools watery through night, but not today. 4. VOMITING: No vomiting. Did have dry heaves yesterday. 5. ABDOMINAL PAIN: Dull abdominal pain yesterday- none today. 6. ABDOMINAL PAIN SEVERITY: Mild 7. ORAL INTAKE: Trying to drink a lot. 96 oz day. 8. HYDRATION: Sometimes dry mouth and weakness- Is diabetic also, BS 130 yesterday before she ate. No dizziness. Urinating without issues. 9. EXPOSURE: No travel. No exposure. No spoiled food- ate at [employer] yesterday. 10. ANTIBIOTIC USE: Reports took AB a couple weeks ago sinus infection. 11. OTHER SYMPTOMS: No blood in stool. No fever. 12. : N/A post menopause. Protocols used: [id number] documented in this encounterRegency Hospital [facility]10-05-2023 Miscellaneous Notes* Telephone Encounter - Lisa Major Ma - 08/21/2023 9:17 AM EDT Including this phone note with OV note from 07/30/23 stating okay to use addendum. Faxed to information below. Lisa Major Ma * Telephone Encounter - Mariano Pearce DO - 08/20/2023 9:11 PM EDT Okay to add addendum, patient has been using her CGM Mariano Pearce DO * Telephone Encounter - Kasandra Monae LPN - 08/19/2023 2:48 PM EDT Janeth with [employer] calls to request last OV notes in regards to pt using CGM. Janeth reports it has to say in notes that pt is currently using CGM (noted in the ov notes is thatpt needs new CGM sensors but that is not acceptable). Please review OV notes from 07/30/23 to see ifaddendum is appropriate. Fax OV notes to: [phone]. Kasandra Monae LPN documented in this encounterReg[facility]-29-2023 Miscellaneous Notes* Telephone Encounter - Elli Timmons LPN - 08/15/2023 12:51 PM EDT Pt calling for a short term rx for Omeprazole willing waiting for Mail order to come. Patient has been identified by name and date of : Yes, Provider Dr. Pearce Date 08/15/23 Time12:53 pm Patient phones for refill(s): Requested Prescriptions Pending Prescriptions Disp Refills omeprazole (PRILOSEC) 40 mg capsule 7 capsule 0 Sig: Take 1 capsule by mouth once daily. Date of last office visit in primary care: 07/30/23 Last 2 Encounter Wt Readings: Date: Wt: 07/30/2023 76.2 kg (168 lb) 07/15/2023 77.6 kg (171 lb) Previous labs/tests for medication: Not applicable Please advise. Thank you. Elli Timmons LPN documented in this encounterRegency [facility]09-29-2023 Miscellaneous Notes* Telephone Encounter - Sherita Madsen Ma - 08/15/2023 10:50 AM EDT Last office visit: 07/30/23 F/u scheduled: 10/15/23 Sherita Madsen Ma * Telephone Encounter - Kim Love LPN - 08/15/2023 8:52 AM EDT Fany-- Nov-- Last refill-- Last labs-- * Telephone Encounter - Billie Philip - 08/15/2023 8:43 AM EDT Patient has been identified by name and date of : Yes Last office visit in this department: Visit date not found RX INSTRUCTIONS: Patient aware RX will be sent to pharmacy. No need to notify patient. Patient phones requesting refills as follows: Requested Prescriptions Pending Prescriptions Disp Refills omeprazole (PRILOSEC) 40 mg capsule 90 capsule 3 Sig: Take 1 capsule by mouth once daily. Please review and advise. Billie Philip documented in this encounterRegency [facility]09-18-2023 Miscellaneous Notes* Telephone Encounter - Elli Timmons LPN - 08/04/2023 3:05 PM EDT Pt called back and she got the medication, she had to pay for this. She will check into the Good RxCard at her pharmacy. Elli Timmons LPN * Telephone Encounter - Eliza Blue OCCA - 08/04/2023 11:15 AM EDT Second attempt to reach patient by phone with no answer. Left additional message to return call to office. JULIENNE Keenan * Telephone Encounter - Sherita Madsen Ma - 08/01/2023 3:55 PM EDT Message left for pt to call back. There was no coupon, suggested good rx card which she could get at pharmacy. Sherita Madsen Ma * Telephone Encounter - Kim Love LPN - 07/31/2023 12:44 PM EDT Looked around could not find coupon. Will have to wait for Dr. Pearce and her nurse to return tomorrow. * Telephone Encounter - Michaela Bates RN - 07/31/2023 10:23 AM EDT Patient was seen by Dr. Pearce yesterday and forgot to get a coupon from her office for her medication called Colestipol. Patient asking if the coupon is still available and if can be taken to Medical Records and she can come pick it up? Please call pt with update. Thank you. documented in this encounterRegency [facility]09-13-2023 Instructions* Patient Instructions* Mariano Pearce DO - 07/30/2023 11:33 AM EDT Get your 2nd shingrix shingles vaccine in Aug or Sep at the pharmacy. documented in this encounterRegency [facility]09-13-2023 History of Present illness Narrative* Mariano Pearce DO - 07/30/2023 11:21 AM EDT Patient presents with: F/U 3 Month Immunizations: Flu vaccination HPI: Angeli Ramirez Case is a 72 year old female who presents to the office today for review of health conditions. Concerns today: Recently had a laparoscopic cholecystectomy due to gallstones, feels she healed well from this procedure. Was prior having diarrhea and still having diarrhea- every day, 1-5 episodes, liquid water stools that have been occurring. Brown in color, non bloody. These stool changes have been present since March. Had to wear depends due to the severity but she is wondering if it is due to her Otezla medication Then she had colonoscopy after colon prep- had 2 polyps removed and has to repeat colonoscopy in 5 years. + fatigue , diagnosed with anemia, no obvious blood from stool or urine or mouth etc. Needing new CGM sensors. Recently blood glucose overall stable and controlled. Sometimes hypoglycemia but not daily and she is able to manage this. Recently with gout flare up in feet, taking colcrys currently Sinus pressure and congestion and left ear pressure x 2 weeks, no fevers or chills, + sick contacts. Ms. Rees has past history of diabetes. Since our last visit she denies excessive thirst or increased frequency of urination, chest pain or dyspnea , new or unusual visual symptoms, and low sugar/hypoglycemic reactions. Depression- yes, stable. Follows a diabetic diet some of the time. She is compliant with medication(s) and is tolerating med(s) without any side effects. She reports checking her glucose on a CGM schedule with sugars in the <200 range. Patient's last HgA1C was Hemoglobin A1C (%) Date Value 04/23/2023 7.6 01/23/2023 8.1 06/01/2021 7.9 02/27/2021 8.5 ) Last Ophthalmology exam was within the past 12 months Ms. Rees reports history of hyperlipidemia. Current therapy includes rosuvastatin (Crestor) 5 mg. Denies side effects of muscle weakness or achiness. Her most recent lipid panels are reviewed. Cholesterol, Total (mg/dL) Date Value 01/23/2023 131 08/03/2020 195 Total Cholesterol, Nonfasting (mg/dL) Date Value 11/03/2020 213 HDL Cholesterol (mg/dL) Date Value 01/23/2023 34 08/03/2020 34 HDL Cholesterol, Nonfasting (mg/dL) Date Value 11/03/2020 34 LDL Cholesterol (mg/dL) Date Value 01/23/2023 65 08/03/2020 105 LDL Cholesterol, Nonfasting (mg/dL) Date Value 11/03/2020 116 Triglyceride (mg/dL) Date Value 01/23/2023 161 08/03/2020 279 Triglycerides, Nonfasting (mg/dL) Date Value 11/03/2020 314 Ms. Rees indicates a history of hypertension and states that she is feeling well and denies any symptoms referable to elevated blood pressure. Specifically denies headache, chest pain, palpitations, dyspnea, and peripheral edema. Patient denies any side effects of her medication(s) and is compliantwith their regimen. Last 3 Encounter BP Readings: Date: BP: 07/30/2023 130/70 07/15/2023 132/72 07/04/2023 116/59 She watches her diet for sodium, low fat and low cholesterol some of the time. She does not check BP's generally. Angeli gets sporadic irregular exercise. PAST MEDICAL HISTORY Diagnosis Date Advance care planning 04/23/2022 daughter Rebecca Case is medical POA per patient Allergic rhinitis, cause unspecified Allergic rhinitis Arthritis Benign hypertensive heart disease without heart failure BPPV (benign paroxysmal positional vertigo) Chronic kidney disease (CKD) stage G3a/A2, moderately decreased glomerular filtration rate (GFR) between 45-59 mL/min/1.73 square meter and albuminuria creatinine ratio between 30-299 mg/g (HCC) Diverticulitis Esophageal reflux Fatty liver Fatty liver Fibromyalgia Gastric polyp 07/04/2014 Dr. Spence, needs repeat EGD in 01/01 Gout right great toe Hernia of other specified sites of abdominal cavity without mention of obstruction or gangrene HIATAL Hypertension IBS (irritable bowel syndrome) Irritable bowel syndrome Leiomyoma of uterus Other and unspecified hyperlipidemia PONV (postoperative nausea and vomiting) 03/11/2018 Renal calculi Snoring Type II or unspecified type diabetes mellitus without mention of complication, not stated as uncontrolled Unspecified hemorrhoids without mention of complication Hemorrhoids Unspecified hypothyroidism PAST SURGICAL HISTORY Procedure Laterality Date APPENDECTOMY APPENDECTOMY COLONOSCOPY FLX DX W/COLLJ SPEC WHEN PFRMD 07/04/2014 Colonoscopy, Dr. Spence COLONOSCOPY SCREENING 07/04/2023 [place] EGD W/O [facility] SPEC VARICIES INJ 07/04/2023 [place] ESOPHAGOGASTRODUODENOSCOPY TRANSORAL DIAGNOSTIC 07/04/2014 EGD, Dr. Spence ESOPHAGOGASTRODUODENOSCOPY TRANSORAL DIAGNOSTIC 05/29/2015 EGD LAPAROSCOPIC CHOLECYSTECTOMY 06/04/2023 lap tosha with grams Dr Muro LAPS ABD PRTM&OMENTUM DX W/WO SPEC BR/WA SPX 1989 Laparoscopy and scar tissue seen LIG/TRNSXJ FLP TUBE ABDL/VAG APPR UNI/BI Tubal ligation PAST SURGICAL HISTORY OF CARPEL TUNNEL/BILATERAL PAST SURGICAL HISTORY OF 1970 exploratory lap and left salpingectomy for bad infection POLYPECTOMY SNARE STIFF WIRE 07/04/2014 gastric TONSILLECTOMY HX TONSILLECTOMY PRIMARY/SECONDARY <AGE 13 Tonsillectomy VAGINAL HYSTERECTOMY VAGINAL HYSTERECTOMY UTERUS 250 GM/< 03/2018 Hysterectomy, vaginal Social History Tobacco Use Smoking status: Never Smokeless tobacco: Never Vaping Use Vaping Use: Never used Substance Use Topics Alcohol use: No Drug use: No FAMILY HISTORY Problem Relation Age of Onset Hypertension Mother other (DEMENTIA) Mother onset in her 70's Tremor Mother ? Parkinson's Diabetes Father Hypertension Father Lipids Father Anesthesia Problems Sister at 19 yo cardiac arrest during appendectomy, did not survive, 1960's Cancer Maternal Grandmother gallbladder Allergies: ALLERGIES Allergen Reactions Crestor [Rosuvastat* Other: See Comments Legs achy Niacin Itching Erythromycin GI Upset Iodine Rash Latex reddness Lescol [Fluvastatin* GI Upset Lipitor [Atorvastat* Intolerance Muscle aching Naprosyn [Naproxen] uncertain Pravastatin Myalgia Arm pain Qfefpig-Mfe-Aeh Red* Intolerance Sulfa (Sulfonamide * Hives Trulicity [Dulaglut* GI Upset Vomiting, diarrhea Hospitalized Vibramycin [Doxycyc* GI Upset Vioxx [Rofecoxib] Swelling Zocor [Simvastatin] uncertain Current Meds: LORazepam (ATIVAN) 2 mg tab^Take 1 tablet by mouth at bedtime as needed for up to 30 days.^Disp: 30tablet^Rfl: 0 Triamcinolone Acetonide 0.05 % oint^Apply to affected area.^Disp: ^Rfl: insulin lispro (HUMALOG KWIKPEN INSULIN) 100 unit/mL^Inject 12 units with breakfast, 16 units with lunch, and 14 units with dinner + sliding scale insulin (1 unit for every 50 >150 pts). Gets through [facility].^Disp: ^Rfl: Blood-Glucose Meter^Use to check blood sugar daily^Disp: 1 Each^Rfl: 0 blood sugar diagnostic (BLOOD GLUCOSE TEST) test strip^Use to check blood sugar four times daily^Disp: 400 Each^Rfl: 3 Lancets lancets^Use to check blood sugar four times daily^Disp: 400 Each^Rfl: 3 citalopram (CELEXA) 20 mg tablet^TAKE 1 TABLET DAILY^Disp: 90 tablet^Rfl: 3 omega-3 DHA-EPA (FISH OIL) 1,200 (144-216) mg capsule^Take 1 capsule by mouth once daily.^Disp: ^Rfl: metoprolol tartrate, short acting, (LOPRESSOR) 100 mg tablet^TAKE 1 TABLET TWICE A DAY^Disp: 180 tablet^Rfl: 3 insulin glargine (LANTUS SOLOSTAR, BASAGLAR KWIKPEN) 100 unit/mL (3 mL)^Inject 52 units SQ in the AM and 52 units SQ in the evening. Basaglar - through [facility].^Disp: 45 Each^Rfl: 2 Insulin [place], Disposable, (BD ULTRA-FINE PATRICIO PEN NEEDLE) 32 gauge x ^Use 4 pen needles daily with Basaglar and Humalog^Disp: 360 Each^Rfl: 3 rosuvastatin (CRESTOR) 5 mg tablet^take 1 tablet by mouth at bedtime^Disp: 90 tablet^Rfl: 5 enalapril (VASOTEC) 20 mg tablet^Take 1 tablet by mouth twice daily.^Disp: 180 tablet^Rfl: 3 levothyroxine (SYNTHROID) 112 mcg tablet^Take 1 tablet by mouth PO daily in AM. For thyroid.^Disp: 90 tablet^Rfl: 3 ezetimibe (ZETIA) 10 mg tablet^Take 1 tablet by mouth once daily. For cholesterol^Disp: 90 tablet^Rfl: 3 omeprazole (PRILOSEC) 40 mg capsule^TAKE 1 CAPSULE DAILY^Disp: 90 capsule^Rfl: 3 flash glucose scanning reader (LivescribeSTYLE BETSEY 14 DAY READER)^Use to check blood sugar as directed.^Disp: 1 Each^Rfl: 0 colchicine (COLCRYS) 0.6 mg tablet^Take 1 tablet by mouth twice daily. For acute gout flare up^Disp: 14 tablet^Rfl: 1 apremilast (OTEZLA) 30 mg tablet^Take 30 mg by mouth once daily. ^Disp: ^Rfl: flash glucose sensor (FREESTYLE BETSEY 14 DAY SENSOR) kit^Apply sensor to back of arm to check bloodsugars as directed. Change sensor every 2 weeks and rotate arms.^Disp: 2 Kit^Rfl: 11 acetaminophen (TYLENOL) 325 mg tablet^Take 2 tablets by mouth every 6 hours as needed for Pain.^Disp: 60 tablet^Rfl: 0 cholecalciferol (VITAMIN D3) 50 mcg (2,000 unit) tablet^Take one tablet by mouth once daily Friday through Friday.^Disp: ^Rfl: oxyCODONE-acetaminophen (PERCOCET) 5-325 mg tablet^Take 1 tablet by mouth every 8 hours as needed for pain.^Disp: ^Rfl: Review of Systems: The remainder of the review of systems is negative. PE: 07/30/23 1052 BP: 130/70 Pulse: 64 Resp: 20 Temp: (!) 35.8 C (96.4 F) TempSrc: Right Tympanic Weight: 76.2 kg (168 lb) Gen: A&O, NAD, non-toxic appearing, Pleasant, cooperative HEENT: NT/AC, PERRLA, EOMs intact b/l, nares congestion left >right, sinus TTP left maxillary, pharynx without erythema, exudate or lesions, + PND. Uvula midline. EACs without erythema or debris. TMs pearly villanueva with intact landmarks b/l. Neck: supple, No cervical LAD, no thyromegaly, no carotid bruits CV: RRR, normal S1 and S2, no murmurs, no gallops, no rubs, Pulses 2+ and symmetric in UE and LE b/l Lungs: normal respiratory effort, CTA b/l, no wheezing or rhonchi or rales Abd: soft, NT, ND, +BS, no hepatosplenomegaly MS: gait is slowed but stable Mild inflammation/erythema and warmth b/l great toe MTP without concerns for infection Neuro: CN II-XII intact b/l, strength 5/5 b/l UE and LE, DTRs 2/4 UE and LE, sensation intact. Skin: warm, dry, intact, No rashes or lesions on exposed skin. Foot exam: Monofilament wnl on right and left feet. ASSESSMENT/PLAN: 1. Diarrhea, unspecified type - ICD9: 787.91, ICD10: R19.7 (primary diagnosis) Concerns this is a SE from Otezla, start on trial of colestipol since had recent cholecystectomy, also consider bentyl or levsin in the future if not helpful. Otherwise may have to stop the Otezla per specialist - COLESTIPOL 1 GRAM TABLET - COLESTIPOL 1 GRAM TABLET - TSH BLD - T4 FREE/FREE THYROX - T3 FREE BLD 2. Need for influenza vaccination - ICD9: V04.81, ICD10: Z23 - INFLUENZA VACCINE, PRSV FREE, AGE 65+ YR, HIGH DOSE, QUADRIVALENT (FLUZONE HIGH-DOSE) 3. Medication side effect - ICD9: 995.20, ICD10: T88.7XXA Concerns her recent diarrhea is a SE from Otezla, start on trial of colestipol since had recent cholecystectomy, also consider bentyl or levsin in the future if not helpful. Otherwise may have to stop the Otezla per specialist - COLESTIPOL 1 GRAM TABLET - COLESTIPOL 1 GRAM TABLET 4. Uncontrolled type 2 diabetes mellitus with hyperglycemia ([facility]) - ICD9: 250.02, ICD10: E11.65 - Improving control - Continue current medications - Blood glucose monitoring on a continuous glucose monitoring schedule - Counseled on healthy diet and regular exercise - Discussed need for and benefit of weight loss. BMI 30.73 kg/(m^2) - HEMOGLOBIN A1C (POC) - TSH BLD - T4 FREE/FREE THYROX - T3 FREE BLD 5. Need for pneumococcal 20-valent conjugate vaccination - ICD9: V03.82, ICD10: Z23 - PNEUMOCOCCAL VACCINE (PREVNAR 20) 6. Acute non-recurrent maxillary sinusitis - ICD9: 461.0, ICD10: J01.00 - Will begin treatment with as per antibiotic as written, see orders - AMOXICILLIN 875 MG TABLET 7. Anemia, unspecified type - ICD9: 285.9, ICD10: D64.9 Labs as ordered today - VITAMIN B12 BLOOD - IRON + TIBC - FERRITIN BLD - CBC + DIFF - COMP METABOLIC PANEL 8. Fatigue, unspecified type - ICD9: 780.79, ICD10: R53.83 - labs as ordered. - TSH BLD - T4 FREE/FREE THYROX - T3 FREE BLD 9. PMR (polymyalgia rheumatica) ([facility]) - ICD9: 725, ICD10: M35.3 F/u with specialist 10. Type 2 diabetes mellitus with stage 3 chronic kidney disease, with long-term current use of insulin, unspecified whether stage 3a or 3b CKD ([facility]) - ICD9: 250.40, 585.3, V58.67, ICD10: E11.22, N18.30, Z79.4 See above Mariano Pearce, DO To ER if develops chest pain, shortness of breath, or severe worsening of symptoms. Discussed risks, benefits, alternatives, and potential side effects of medications. Patient expressed understanding and agreed with the plan. Mariano Pearce DO [address] [place] [address] documented in this encounterRegency [facility]09-06-2023 Miscellaneous Notes* Telephone Encounter - Mariano Pearce DO - 07/23/2023 11:48 AM EDT PDMP website checked and validated. All prescriptions have been APPROPRIATELY filled. No suspiciousactivity was identified. 07/23/2023 by Mariano Pearce DO The following approved medication requests have been transmitted electronically. Requested Prescriptions Signed Prescriptions Disp Refills LORazepam (ATIVAN) 2 mg tab 30 tablet 0 Sig: Take 1 tablet by mouth at bedtime as needed for up to 30 days. Authorizing Provider: MARIANO PEARCE DO * Telephone Encounter - Kim Love LPN - 07/23/2023 11:12 AM EDT Fany--04/07/23 Nov--07/30/23 Last refill--07/17/23 30 with 0 refills Last labs--07/04/23 * Telephone Encounter - Michaela Kline - 07/23/2023 10:04 AM EDT Patient has been identified by name and date of : Yes Last office visit in this department: Visit date not found RX INSTRUCTIONS: Patient aware RX will be sent to pharmacy. No need to notify patient. Patient phones requesting refills as follows: Patient is out of medication and express scripts mailed these out yesterday 07/22 and she is requesting a small script be sent to local pharmacy Requested Prescriptions Pending Prescriptions Disp Refills LORazepam (ATIVAN) 2 mg tab 30 tablet 0 Sig: Take 1 tablet by mouth at bedtime as needed for up to 30 days. Please review and advise. Michaela Champagne documented in this encounterRegency Hospital [facility]08-31-2023 Miscellaneous Notes* Telephone Encounter - Demetra Navarrete APRN.CNP - 07/17/2023 11:19 AM EDT The following approved medication requests have been transmitted electronically. Requested Prescriptions Signed Prescriptions Disp Refills LORazepam (ATIVAN) 2 mg tab 30 tablet 0 Sig: Take 1 tablet by mouth at bedtime as needed for up to 30 days. Authorizing Provider: DEMETRA NAVARRETE APRN.CNP PDMP website checked and validated. All prescriptions have been APPROPRIATELY filled. No suspiciousactivity was identified. 07/17/2023 by Demetra Navarrete CNP. * Telephone Encounter - Valentina Agustin - 07/17/2023 10:28 AM EDT Patient has been identified by name and date of : Yes Last office visit in this department: 04/07/2023 RX INSTRUCTIONS: Patient aware RX will be sent to pharmacy. No need to notify patient. Patient phones requesting refills as follows: Requested Prescriptions Pending Prescriptions Disp Refills LORazepam (ATIVAN) 2 mg tab 30 tablet 1 Sig: Take 1 tablet by mouth at bedtime as needed for up to 30 days. Please review and advise. Valentina Agustin documented in this encounterRegency Hospital [facility]08-29-2023 History of Present illness Narrative* Rola Muro MD - 07/15/2023 1:03 PM EDT Subjective: Patient is status post an upper and lower endoscopy. She did have some slight esophagitis but on visual exam it really was not bad at all. Random colon biopsies did not show any signs of microscopic colitis she did have a tubular adenoma. There was no signs of H. pylori gastritis. The biopsy of the duodenum did show some increased lymphocytes. Which is nonspecific when you looked at the duodenum itself though it looked like it had normal villous architecture. Patient states over the last 3 days she has not had any diarrhea. Objective:Blood pressure 132/72, pulse 74, temperature 36.7 C (98.1 F), height 157.5 cm (5' 2), weight 77.6 kg (171 lb), SpO2 94 %. Abdomen is soft and nontender Assessment:Change in bowel habits (primary encounter diagnosis) Diarrhea, unspecified type Plan: I Esperanza leave it up to her primary care doctor to see if she wants to work her up for celiac disease. I instructed her that she is probably going to have to avoid certain foods that obviously give her diarrhea and right now let us seems to be the only one that does. She will need to have another upper and lower endoscopy in 5 years. I can see her back at that time. documented in this encounterRegency Hospital [facility]08-18-2023 History and physical note * Rola Muro MD - 07/04/2023 11:15 AM EDT Images from the original note were not included. HISTORY AND PHYSICAL Angeli Ramirez Case 1950 REFERRING PHYSICIAN: Mariano Pearce DO CHIEF COMPLAINT: Consult (gallstones) HPI: Angeli is a 72 year old female with a complaint of right upper quadrant pain. The patient has had symptoms of right upper quadrant pain for 2 months. The symptoms have maintained, over the past 2 months. The pain does radiate to the back. Food does aggravate her symptoms. Alleviating factors include: none. The patient was seen by her primary care physician. Angeli underwent an ultrasound. These tests demonstrated cholelithiasis. The patient is referred for evaluation and treatment. The patient is being seen by me today at the request of Dr. Mariano Pearce DO for my opinion and advice regarding Calculus of gallbladder with acute on chronic cholecystitis without obstruction (primary encounter diagnosis) Right upper quadrant pain. SIGNIFICANT MEDICAL PROBLEMS: PAST MEDICAL HISTORY PAST MEDICAL HISTORY Diagnosis Date Advance care planning 04/23/2022 daughter Rebecca Case is medical POA per patient Allergic rhinitis, cause unspecified Allergic rhinitis Arthritis Benign hypertensive heart disease without heart failure BPPV (benign paroxysmal positional vertigo) Chronic kidney disease (CKD) stage G3a/A2, moderately decreased glomerular filtration rate (GFR) between 45-59 mL/min/1.73 square meter and albuminuria creatinine ratio between 30-299 mg/g (HCC) Diverticulitis Esophageal reflux Fatty liver Fatty liver Fibromyalgia Gastric polyp 07/04/2014 Dr. Spence, needs repeat EGD in 01/01 Gout right great toe Hernia of other specified sites of abdominal cavity without mention of obstruction or gangrene HIATAL Hypertension IBS (irritable bowel syndrome) Irritable bowel syndrome Leiomyoma of uterus Other and unspecified hyperlipidemia PONV (postoperative nausea and vomiting) 03/11/2018 Renal calculi Snoring Type II or unspecified type diabetes mellitus without mention of complication, not stated as uncontrolled Unspecified hemorrhoids without mention of complication Hemorrhoids Unspecified hypothyroidism OPERATIONS: PAST SURGICAL HISTORY PAST SURGICAL HISTORY Procedure Laterality Date APPENDECTOMY APPENDECTOMY COLONOSCOPY FLX DX W/COLLJ SPEC WHEN PFRMD 07/04/14 Colonoscopy, Dr. Spence ESOPHAGOGASTRODUODENOSCOPY TRANSORAL DIAGNOSTIC 07/04/14 EGD, Dr. Spence ESOPHAGOGASTRODUODENOSCOPY TRANSORAL DIAGNOSTIC 05/29/15 EGD LAPS ABD PRTM&OMENTUM DX W/WO SPEC BR/WA SPX 1989 Laparoscopy and scar tissue seen LIG/TRNSXJ FLP TUBE ABDL/VAG APPR UNI/BI Tubal ligation PAST SURGICAL HISTORY OF CARPEL TUNNEL/BILATERAL PAST SURGICAL HISTORY OF 1969 exploratory lap and left salpingectomy for bad infection POLYPECTOMY SNARE STIFF WIRE 07/04/14 gastric TONSILLECTOMY HX TONSILLECTOMY PRIMARY/SECONDARY <AGE 13 Tonsillectomy VAGINAL HYSTERECTOMY VAGINAL HYSTERECTOMY UTERUS 250 GM/< 03/2018 Hysterectomy, vaginal CURRENT MEDICATIONS: CURRENT MEDICATIONS Current Outpatient Medications Medication Sig Dispense Refill LORazepam (ATIVAN) 2 mg tab Take 1 tablet by mouth at bedtime as needed for up to 30 days. 30 tablet 1 insulin lispro (HUMALOG KWIKPEN INSULIN) 100 unit/mL Inject 12 units with breakfast, 16 units with lunch, and 14 units with dinner + sliding scale insulin (1 unit for every 50 >150 pts). Gets through [facility]. Blood-Glucose Meter Use to check blood sugar daily 1 Each 0 blood sugar diagnostic (BLOOD GLUCOSE TEST) test strip Use to check blood sugar four times daily 400 Each 3 Lancets lancets Use to check blood sugar four times daily 400 Each 3 citalopram (CELEXA) 20 mg tablet TAKE 1 TABLET DAILY 90 tablet 3 omega-3 DHA-EPA (FISH OIL) 1,200 (144-216) mg capsule Take 1 capsule by mouth once daily. metoprolol tartrate, short acting, (LOPRESSOR) 100 mg tablet TAKE 1 TABLET TWICE A DAY 180 tablet 3 insulin glargine (LANTUS SOLOSTAR, BASAGLAR KWIKPEN) 100 unit/mL (3 mL) Inject 52 units SQ in the AM and 52 units SQ in the evening. Basaglar - through [facility]. 45 Each 2 Insulin [place], Disposable, (BD ULTRA-FINE PATRICIO PEN NEEDLE) 32 gauge x 5/32 Use 4 pen needles daily with Basaglar and Humalog 360 Each 3 rosuvastatin (CRESTOR) 5 mg tablet take 1 tablet by mouth at bedtime 90 tablet 5 enalapril (VASOTEC) 20 mg tablet Take 1 tablet by mouth twice daily. 180 tablet 3 levothyroxine (SYNTHROID) 112 mcg tablet Take 1 tablet by mouth PO daily in AM. For thyroid. 90 tablet 3 ezetimibe (ZETIA) 10 mg tablet Take 1 tablet by mouth once daily. For cholesterol 90 tablet 3 omeprazole (PRILOSEC) 40 mg capsule TAKE 1 CAPSULE DAILY 90 capsule 3 flash glucose scanning reader (FREESTYLE BETSEY 14 DAY READER) Use to check blood sugar as directed.1 Each 0 colchicine (COLCRYS) 0.6 mg tablet Take 1 tablet by mouth twice daily. For acute gout flare up 14 tablet 1 apremilast (OTEZLA) 30 mg tablet Take 30 mg by mouth once daily. flash glucose sensor (FREESTYLE BETSEY 14 DAY SENSOR) kit Apply sensor to back of arm to check bloodsugars as directed. Change sensor every 2 weeks and rotate arms. 2 Kit 11 acetaminophen (TYLENOL) 325 mg tablet Take 2 tablets by mouth every 6 hours as needed for Pain. 60 tablet 0 cholecalciferol (VITAMIN D3) 50 mcg (2,000 unit) tablet Take one tablet by mouth once daily Friday through Friday. Current Facility-Administered Medications Medication Dose Route Frequency Provider Last Rate Last Admin perflutren lipid microspheres 1.3 mL in NaCl (PF) 0.9% 10 mL injection (DEFINITY) INTRAVENOUS DIRECTED PRN Mariano Pearce, DO sodium chloride 0.9 % (flush) 10 mL (BD POSIFLUSH) 10 mL INTRAVENOUS DIRECTED PRN Mariano Kuhnon, DO ALLERGIES: Crestor [Rosuvastatin Calcium], Niacin, Erythromycin, Iodine, Latex, Lescol [FluvastatinSodium], Lipitor [Atorvastatin Calcium], Naprosyn [Naproxen], Pravastatin, [id number] Reductase Inhibitors, Sulfa (Sulfonamide Antibiotics), Trulicity [Dulaglutide], Vibramycin [Doxycycline Calcium], Vioxx [Rofecoxib], and Zocor [Simvastatin] PERSONAL HISTORY: SOCIAL HISTORY Social History Tobacco Use Smoking status: Never Smokeless tobacco: Never Vaping Use Vaping Use: Never used Substance Use Topics Alcohol use: No Drug use: No FAMILY HISTORY: FAMILY HISTORY FAMILY HISTORY Problem Relation Age of Onset Diabetes Father Hypertension Father Lipids Father Hypertension Mother other (DEMENTIA) Mother onset in her 70's Tremor Mother ? Parkinson's Cancer Maternal Grandmother gallbladder REVIEW OF SYSTEMS: General: The patient NOTES fatigue, denies weight loss, denies weight gain, denies feeling hot, anddenies feelings of cold. Eyes: The patient denies glaucoma, denies eye injury/surgery, does not wear glasses or contacts. Ear/Nose/Throat: The patient NOTES allergies, denies hayfever, denies ear infections, and denies bloody noses. Cardiovascular: The patient denies chest pain, denies heart disease, NOTES high blood pressure,denies cardiac stent, denies prior heart attack, denies irregular heart beat, NOTES high cholesterol, denies poor circulation, denies heart failure, other cardiac issues, denies claudication, denies cold feet, denies peripheral arterial stent. Respiratory: The patient denies tuberculosis, denies pneumonia, denies frequent cough, denies pulmonary embolism, denies shortness of breath, and denies coughing up blood. Gastrointestinal: The patient denies difficulty swallowing, NOTES acid reflux, denies ulcers, denies vomiting, denies jaundice/hepatitis, denies gallbladder problems, denies black or tarry stools, NOTES hemorrhoids, NOTES bleeding from rectum, NOTES diverticulitis, NOTES constipation, NOTES diarrhea, denies loss of stool control, and NOTES hernias. Kidney/Bladder: The patient NOTES kidney stones, denies urine infections, and denies bloody urine. Skin: The patient denies a history of skin cancer, denies bleeding/changing moles, and denies a history of skin rash. Neurologic: The patient denies a history of epilepsy/convulsions, NOTES headaches, denies head/spinal injuries, and denies stroke/TIA. Psychiatric: The patient denies psychiatric medications, denies depression, and denies voices, denies substance abuse. Endocrine: The patient NOTES thyroid disorders, NOTES diabetes, and denies hormonal problems. Hematologic: The patient denies a history of bruising, denies bleeding, and denies anemia, denies blood clots. Infections: The patient NOTES a history of measles and mumps, denies rheumatic fever, and denies sexually transmitted diseases. Musculoskeletal: The patient denies back pain/injury, denies back problems, denies sciatica, deniesknee/foot trouble, NOTES arthritis, or NOTES gout. When was patient's last Mammogram screening? 2021 Last Colonoscopy: 2013 PHYSICAL EXAMINATION: General: The patient is 72 year old female, well nourished, well hydrated in no acute distress. Thepatient is oriented to time, place, and person. VITALS: Blood pressure 140/90, pulse 68, temperature 36.3 C (97.3 F), height 157.5 cm (5' 2), weight 78.5 kg (173 lb), SpO2 95 %. Body mass index is 31.64 kg/m . HEENT: Normal cephalic, ataumatic, pupils are equally round, sclera are anicteric, mucous membranesare moist, oropharynx is clear. Neck has no masses, asymmetry or lymphadenopathy. Thyroid is unremarkable. Respiratory: Clear to auscultation and percussion. Normal respiratory excursion and pattern. Cardiac: Examination is regular rate and rhythm. Abdominal exam: Normoactive bowel sounds, Soft, non tender in the right upper quadrant negative Garcia's sign, with no palpable masses. No hepatosplenomegaly. No palpable hernias. Rectal exam: exam deferred Extremities: no clubbing, cyanosis or edema. No adenopathy. Other: LABORATORY VALUES: As Noted RADIOLOGIC STUDIES: As Noted Above Assessment IMPRESSION: Calculus of gallbladder with acute on chronic cholecystitis without obstruction (primary encounter diagnosis) Right upper quadrant pain PLAN: My plan is to perform a laparoscopic cholecystectomy with intraoperative choleangiogram. The planned surgical procedure was discussed extensively with the patient. The risks, benefits, anticipated outcomes and possible complications were mentioned. My staff has also explained the procedure in understandable terms and the patient was given the option to take printed material concerning the planned procedure. The patient had the opportunity to ask questions concerning the planned procedure.The patient freely consents to the planned procedure. Planned Procedure: LAPAROSCOPIC CHOLECYSTECTOMY WITHOUT INTRAOPERATIVE CHOLEANGIOGRAM - [id number] Planned antibiotic: Ancef 3gm IVPB correctional program specialist to OR SCDs needed - Yes Line Crew Supervisor Needed - Yes Diagnoses: (K80.12) Calculus of gallbladder with acute on chronic cholecystitis without obstruction(primary encounter diagnosis) (R10.11) Right upper quadrant pain My findings have been communicated to Dr. Mariano Pearce DO via shared medical record. This note will be forwarded to Dr. Mariano Pearce DO. Once we have completed the gallbladder surgery I do believe it is important for us to repeat an upper and lower endoscopy on her with random colon biopsies. Rola Muro III, MD UPDATED HISTORY AND PHYSICAL EXAMINATION SERVICE DATE: 07/04/2023 SERVICE TIME: 9:37 AM PHYSICAL EXAM MUST BE COMPLETED ON ADMISSION The History and Physical (completed in the past 30 days) has been reviewed and the patient has beenexamined. The contents accurately reflect the patient's condition with the following additions or revisions since the H&P was completed. Examination indicates no changes. This H&P can be found in the attached. SIGNATURE: Rola Muro III, MD PATIENT NAME: Angeli Ramirez Case DATE: July 04, 2023 TIME: 9:37 AM documented in this encounterReg[facility]23 Miscellaneous Notes* Telephone Encounter - Pamela Pichardo RN - 07/01/2023 9:14 AM EDT See other TE initiated on 04/16/23 for insulin and prep instructions given to patient. * Telephone Encounter - Mariano Pearce DO - 07/01/2023 7:06 AM EDT See other TE, I was out of office when this was sent to me and just returning to office this AM Mariano Pearce DO * Telephone Encounter - Marisol Ramirez LPN - 06/27/2023 3:18 PM EDT Patient calling to see if answer for her diabetic medications directions please, she is getting anxious. * Telephone Encounter - Marisol Ramirez LPN - 06/26/2023 11:13 AM EDT Patient calling having colonoscopy 07/04 and needs directions with her insulin on 07/01 she is to eatfoods with no fiber, if any changes from her usual doses? And on 07/02 she starts on clear liquids and needs instructions with her insulin Basaglar 52 units morning and evening and Humalog 12 units breakfast, 16 units with lunch, and 14 units with supper she does not use the sliding scale. Patient said she will be on clear liquids 07/02 and 07/03 and doing her colon prep on 07/03. Advised patient maywant to get some liquid glucose because she said she gets lows at times. Told her to make sure not purple or red colored items to be drinking for her clear liquids. Patient plans to get her nails done and will be home later this afternoon. 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 Please advise documented in this encounterRegency [facility]08-15-2023 Miscellaneous Notes* Telephone Encounter - Pamela Pichardo RN - 07/01/2023 9:09 AM EDT Called pt to given her Dr. Pearce's instructions. Pt was confused on when to start clear liquids.She thought she was supposed to do clears today, tomorrow and . Pt found her instructions and read them to nurse. She is to be eating food today and start clear liquids tomorrow. Reinforced that several times with patient. Also went over insulin instructions several times and had patient write them down and read them back to me. Pt appears to understand. Pt states BS was 74 this morning and she has had only water. Pt instructed to be monitoring BS frequently to make sure she doesn't drop too low. She needs to drink lots of fluids tomorrow and to help keep her sugars up. Went over with patient what she can drink on Fri and . Pt needed a lot of reinforcement and explanation for preparation and insulin instructions. * Telephone Encounter - Mariano Pearce DO - 07/01/2023 7:00 AM EDT Please call patient and apologize to her. This is the first message that has been sent to me regarding insulin and colonoscopy questions. The previous was sent to surgery office. I would recommend for her to take Lantus at a normal dose the evening before colonoscopy but hold Lantus the morning of the colonoscopy. Resume the evening of the colonoscopy after procedure her Lantus and short acting insulin with meals. Would recommend with her Humalog to only take with her clear liquids etc as needed the day before colonoscopy (3 times that day if needed depending on her glucose range if >150) and not to take the Humalog the day of colonoscopy until she is eating food again. Mariano Pearce DO * Telephone Encounter - Luci Waterman - 06/30/2023 11:59 AM EDT Patient is wanting to know how to manage insulin prior to colonoscopy with Friday, Patient stated she has tried [facility] office a few times and has yet to hear back. Please call patient as she has questions regarding insulin as this is managed by PCP Thank you Luci Waterman Superintendent Pressure * Telephone Encounter - Luci Waterman - 06/30/2023 11:57 AM EDT Patient calling in regards to medications specifically Otezla prior to colonoscopy this Friday Patient stated she was able to remain on medications prior to lap tosha. Please advise if patient is to be off meds or stay on prior to 07/04/2023 colonoscopy * Telephone Encounter - Luci Waterman - 05/29/2023 9:47 AM EDT Patient called in regards to medications prior to gallbladder surgery in [place] with Dr. Muro on06/04/2023 Patient wanting to know if she is able to take Otezla or if she should hold them. Please advise on steps for medications. Patient stated she was told it could affect healing process? Luci Waterman Superintendent Pressure * Telephone Encounter - Luci Waterman - 05/06/2023 9:31 AM EDT 06/04/[address] [address] ( Colon/egd to follow in June ) * Telephone Encounter - Luci Waterman - 05/06/2023 9:31 AM EDT Patient rescheduled to sooner date with Dr. Muro in [place] on 07/04/2023 for upper and lower scopes * Telephone Encounter - Luci Waterman - 04/16/2023 3:04 PM EDT 07/30/2023 colon/egd state line Patient denied sooner date at [place] documented in this encounterReg[facility]07-31-2023 Miscellaneous Notes* Telephone Encounter - Marisol Ramirez LPN - 06/16/2023 4:56 PM EDT Phoned patient and went over results, notes from Danny CUEVAS with understanding. * Telephone Encounter - Marisol Ramirez LPN - 06/16/2023 4:53 PM EDT ----- Message from April Duran PA-C sent at 06/16/2023 12:54 PM EDT ----- Please advise UC grew < 100K and mixed dayan from skin contamination. There were no bacteria identified on the specimen indicating nor active infection. Thanks, Danny Duran PA-C documented in this encounterRegency Hospital [facility]07-26-2023 Instructions* Patient Instructions* Vanessa Gary PA-C - 06/11/2023 12:01 PM EDT -Check labs today -Keep upcoming appt for colonoscopy The following instructions are important for you related to your office visit today with the [facility]. INSTRUCTIONS FOLLOWING YOU RECENT GALLBLADDER SURGERY You should be returning to your regular diet, If you have having persistent issues with tolerating your diet, please contact our office It is not unusual to have pain similar to your gallbladder symptoms for the first 1-2 weeks following surgery. If this persists beyond 2 weeks, contact the office. It is not unusual to have loose stools following surgery. This is usually self limited and related to the antibiotics that were given during your surgical procedure. Fiber supplementation and yogurt with active cultures may help you return to regular bowel activity. If you note loose stools persisting for over 2 weeks, or significant cramping or loose bloody stools, contact the office immediately. You may return to your regular activities. You may drive if you are no longer taking narcotic pain medication. You should perform no lifting greater than 20lbs for the next 3-4 weeks. Contact the office immediately if any of your incisions become increasingly tender, red or have drainage. Again, if you have any difficulties or concerns, contact our office immediately. If you note any additional difficulties, questions, or concerns, you should contact our office immediately @ [phone] and ask to be transferred to the General Surgery department. documented in this encounterRegency Hospital [facility]07-26-2023 History of Present illness Narrative* Vanessa Gary PA-C - 06/11/2023 11:39 AM EDT FOLLOW UP VISIT - CHOLECYSTECTOMY NAME: Angeli Ramirez [facility] NO.: [id number] DATE OF SERVICE: 06/11/2023 : 1950 REFERRING PHYSICIAN: Mariano Pearce DO Angeli is a patient I am following for a complaint of right upper quadrant pain. Dr. Muro performed a laparoscopic cholecystectomy with intraoperative cholangiogram on 06/04/23. Pathology showed chronic cholecystitis with cholelithiasis. The patient currently notes still having some mild intermittent right upper quadrant discomfort since surgery. her appetite has been moderate. She denies feveror chills. she does note some mild incisional discomfort. VITALS: Blood pressure 124/68, pulse 71, temperature 36.9 C (98.4 F), height 157.5 cm (5' 2), weight 77.6 kg (171 lb), SpO2 95 %. On examination, the abdomen is benign. The incisions are healing well without signs of infection orinflammation. Assessment IMPRESSION: status post laparoscopic cholecystectomy PLAN: If the patient notes any problems, she should contact me immediately. she may return to her regularactivities as tolerated, with the exception of no lifting greater than 20 pounds for the next 3-4 weeks. The patient is to contact me immediately is she experiences any of her preoperative symptoms. We discussed that occasional right up quadrant symptoms similar to the preoperative complaints can occur in the first couple of weeks post operatively. If this persists beyond the first 2-3 weeks, they should contact our office. -Labs checked today, mild postop anemia without other acute findings -Keep upcoming appt for colonoscopy Reviewed red flag signs and symptoms for which patient should seek immediate medical attention Patient verbalized understanding of all above and agreed with the plan. Diagnoses: (K80.10) Calculus of gallbladder with chronic cholecystitis without obstruction (primaryencounter diagnosis) (R10.11) Right upper quadrant pain (Z90.49) S/P laparoscopic cholecystectomy Vanessa Gary PA-C documented in this encounterRegency Hospital [facility]07-19-2023 History of Past illness Narrative* Problem Noted Date Diagnosed Date Resolved Date Calculus of gallbladder with acute on chronic cholecystitis without obstruction 06/04/20232022 Cough 02/16/2019 02/28/2020 Acute bacterial sinusitis 02/16/2019 Visit for screening mammogram 02/16/2019 02/28/2020 Myalgia 08/05/2018 02/28/2020 Uncontrolled type 2 diabetes mellitus without complication, without long-term current use of insulin 08/05/2018 02/28/2020 Right upper quadrant pain 08/05/2018 Chest pain 08/05/2018 02/28/2020 PONV (postoperative nausea and vomiting) 03/11/2018 02/28/2020 Pelvic mass 02/25/2018 08/24/2019 Overview: Added automatically from request for surgery [id number] Need for pneumococcal vaccination 12/26/2017 02/28/2020 Atrophic vaginitis 12/26/2017 0 Adjustment insomnia 12/26/2017 02/28/20 20 Yeast vaginitis 12/26/2017 02/28/2020 CKD (chronic kidney disease) 02/14/2016 02/28/2020 Right lower quadrant abdominal pain 08/03/2015 02/28/2020 Diverticulitis of large intestine 08/03/2015 02/28/2020 Bronchitis 09/15/2012 02/28/2020 Unspecified pruritic disorder 10/12/2010 02/28/2020 Disorder of bone and cartilage, unspecified 10/12/2010 02/28/2020 Routine general medical exam ination at a health care facility 03/16/2010 12/14/2014 Overview: 03/16/2010, from Dr. Padgett 02/26/2011, yearly check Routine gynecological examination 03/16/2010 12/14/2014 Overview: [facility] [place] Pruritus of genital organs 09/06/2008 0 03/16/2010 Abdominal pain, generalized 10/16/2007 03/16/2010 Other diseases of lung, not elsewhere classified 11/07/2005 02/28/2020 Hyperlipidemia 07/19/2005 02/28/2020 documented as of this encounter (statuses as of 06/17/2023) [facility] History of Past illness Narrative* Problem Noted Date Diagnosed Date Resolved Date Calculus of gallbladder with acute on chronic cholecystitis without obstruction 06/04/20232022 Cough 02/16/2019 02/28/2020 Acute bacterial sinusitis 02/16/2019 Visit for screening mammogram 02/16/2019 02/28/2020 Myalgia 08/05/2018 02/28/2020 Uncontrolled type 2 diabetes mellitus without complication, without long-term current use of insulin 08/05/2018 02/28/2020 Right upper quadrant pain 08/05/2018 Chest pain 08/05/2018 02/28/2020 PONV (postoperative nausea and vomiting) 03/11/2018 02/28/2020 Pelvic mass 02/25/2018 08/24/2019 Overview: Added automatically from request for surgery [id number] Need for pneumococcal vaccination 12/26/2017 02/28/2020 Atrophic vaginitis 12/26/2017 0 Adjustment insomnia 12/26/2017 02/28/20 20 Yeast vaginitis 12/26/2017 02/28/2020 CKD (chronic kidney disease) 02/14/2016 02/28/2020 Right lower quadrant abdominal pain 08/03/2015 02/28/2020 Diverticulitis of large intestine 08/03/2015 02/28/2020 Bronchitis 09/15/2012 02/28/2020 Unspecified pruritic disorder 10/12/2010 02/28/2020 Disorder of bone and cartilage, unspecified 10/12/2010 02/28/2020 Routine general medical exam ination at a health care facility 03/16/2010 12/14/2014 Overview: 03/16/2010, from Dr. Padgett 02/26/2011, yearly check Routine gynecological examination 03/16/2010 12/14/2014 Overview: [facility] [place] Pruritus of genital organs 09/06/2008 0 03/16/2010 Abdominal pain, generalized 10/16/2007 03/16/2010 Other diseases of lung, not elsewhere classified 11/07/2005 02/28/2020 Hyperlipidemia 07/19/2005 02/28/2020 documented as of this encounter (statuses as of 06/20/2023) [facility] History of Past illness Narrative* Problem Noted Date Diagnosed Date Resolved Date Calculus of gallbladder with acute on chronic cholecystitis without obstruction 06/04/20232022 Cough 02/16/2019 02/28/2020 Acute bacterial sinusitis 02/16/2019 Visit for screening mammogram 02/16/2019 02/28/2020 Myalgia 08/05/2018 02/28/2020 Uncontrolled type 2 diabetes mellitus without complication, without long-term current use of insulin 08/05/2018 02/28/2020 Right upper quadrant pain 08/05/2018 Chest pain 08/05/2018 02/28/2020 PONV (postoperative nausea and vomiting) 03/11/2018 02/28/2020 Pelvic mass 02/25/2018 08/24/2019 Overview: Added automatically from request for surgery [id number] Need for pneumococcal vaccination 12/26/2017 02/28/2020 Atrophic vaginitis 12/26/2017 0 Adjustment insomnia 12/26/2017 02/28/20 20 Yeast vaginitis 12/26/2017 02/28/2020 CKD (chronic kidney disease) 02/14/2016 02/28/2020 Right lower quadrant abdominal pain 08/03/2015 02/28/2020 Diverticulitis of large intestine 08/03/2015 02/28/2020 Bronchitis 09/15/2012 02/28/2020 Unspecified pruritic disorder 10/12/2010 02/28/2020 Disorder of bone and cartilage, unspecified 10/12/2010 02/28/2020 Routine general medical exam ination at a health care facility 03/16/2010 12/14/2014 Overview: 03/16/2010, from Dr. Padgett 02/26/2011, yearly check Routine gynecological examination 03/16/2010 12/14/2014 Overview: [facility] [place] Pruritus of genital organs 09/06/2008 0 03/16/2010 Abdominal pain, generalized 10/16/2007 03/16/2010 Other diseases of lung, not elsewhere classified 11/07/2005 02/28/2020 Hyperlipidemia 07/19/2005 02/28/2020 documented as of this encounter (statuses as of 07/01/2023) [facility] History of Past illness Narrative* Problem Noted Date Diagnosed Date Resolved Date Calculus of gallbladder with acute on chronic cholecystitis without obstruction 06/04/20232022 Cough 02/16/2019 02/28/2020 Acute bacterial sinusitis 02/16/2019 Visit for screening mammogram 02/16/2019 02/28/2020 Myalgia 08/05/2018 02/28/2020 Uncontrolled type 2 diabetes mellitus without complication, without long-term current use of insulin 08/05/2018 02/28/2020 Right upper quadrant pain 08/05/2018 Chest pain 08/05/2018 02/28/2020 PONV (postoperative nausea and vomiting) 03/11/2018 02/28/2020 Pelvic mass 02/25/2018 08/24/2019 Overview: Added automatically from request for surgery [id number] Need for pneumococcal vaccination 12/26/2017 02/28/2020 Atrophic vaginitis 12/26/2017 0 Adjustment insomnia 12/26/2017 02/28/20 20 Yeast vaginitis 12/26/2017 02/28/2020 CKD (chronic kidney disease) 02/14/2016 02/28/2020 Right lower quadrant abdominal pain 08/03/2015 02/28/2020 Diverticulitis of large intestine 08/03/2015 02/28/2020 Bronchitis 09/15/2012 02/28/2020 Unspecified pruritic disorder 10/12/2010 02/28/2020 Disorder of bone and cartilage, unspecified 10/12/2010 02/28/2020 Routine general medical exam ination at a health care facility 03/16/2010 12/14/2014 Overview: 03/16/2010, from Dr. Padgett 02/26/2011, yearly check Routine gynecological examination 03/16/2010 12/14/2014 Overview: [facility] [place] Pruritus of genital organs 09/06/2008 0 03/16/2010 Abdominal pain, generalized 10/16/2007 03/16/2010 Other diseases of lung, not elsewhere classified 11/07/2005 02/28/2020 Hyperlipidemia 07/19/2005 02/28/2020 documented as of this encounter (statuses as of 07/01/2023) [facility] History of Past illness Narrative* Problem Noted Date Diagnosed Date Resolved Date Calculus of gallbladder with acute on chronic cholecystitis without obstruction 06/04/20232022 Cough 02/16/2019 02/28/2020 Acute bacterial sinusitis 02/16/2019 Visit for screening mammogram 02/16/2019 02/28/2020 Myalgia 08/05/2018 02/28/2020 Uncontrolled type 2 diabetes mellitus without complication, without long-term current use of insulin 08/05/2018 02/28/2020 Right upper quadrant pain 08/05/2018 Chest pain 08/05/2018 02/28/2020 PONV (postoperative nausea and vomiting) 03/11/2018 02/28/2020 Pelvic mass 02/25/2018 08/24/2019 Overview: Added automatically from request for surgery [id number] Need for pneumococcal vaccination 12/26/2017 02/28/2020 Atrophic vaginitis 12/26/2017 0 Adjustment insomnia 12/26/2017 02/28/20 20 Yeast vaginitis 12/26/2017 02/28/2020 CKD (chronic kidney disease) 02/14/2016 02/28/2020 Right lower quadrant abdominal pain 08/03/2015 02/28/2020 Diverticulitis of large intestine 08/03/2015 02/28/2020 Bronchitis 09/15/2012 02/28/2020 Unspecified pruritic disorder 10/12/2010 02/28/2020 Disorder of bone and cartilage, unspecified 10/12/2010 02/28/2020 Routine general medical exam ination at a health care facility 03/16/2010 12/14/2014 Overview: 03/16/2010, from Dr. Padgett 02/26/2011, yearly check Routine gynecological examination 03/16/2010 12/14/2014 Overview: [facility] [place] Pruritus of genital organs 09/06/2008 0 03/16/2010 Other diseases of lung, not elsewhere classified 11/07/2005 02/28/2020 Hyperlipidemia 07/19/2005 02/28/2020 documented as of this encounter (statuses as of 07/05/2023) [facility]07-19-2023 History of Past illness Narrative* Problem Noted Date Diagnosed Date Resolved Date Calculus of gallbladder with acute on chronic cholecystitis without obstruction 06/04/20232022 Cough 02/16/2019 02/28/2020 Acute bacterial sinusitis 02/16/2019 Visit for screening mammogram 02/16/2019 02/28/2020 Myalgia 08/05/2018 02/28/2020 Uncontrolled type 2 diabetes mellitus without complication, without long-term current use of insulin 08/05/2018 02/28/2020 Right upper quadrant pain 08/05/2018 Chest pain 08/05/2018 02/28/2020 PONV (postoperative nausea and vomiting) 03/11/2018 02/28/2020 Pelvic mass 02/25/2018 08/24/2019 Overview: Added automatically from request for surgery [id number] Need for pneumococcal vaccination 12/26/2017 02/28/2020 Atrophic vaginitis 12/26/2017 0 Adjustment insomnia 12/26/2017 02/28/20 20 Yeast vaginitis 12/26/2017 02/28/2020 CKD (chronic kidney disease) 02/14/2016 02/28/2020 Right lower quadrant abdominal pain 08/03/2015 02/28/2020 Diverticulitis of large intestine 08/03/2015 02/28/2020 Bronchitis 09/15/2012 02/28/2020 Unspecified pruritic disorder 10/12/2010 02/28/2020 Disorder of bone and cartilage, unspecified 10/12/2010 02/28/2020 Routine general medical exam ination at a health care facility 03/16/2010 12/14/2014 Overview: 03/16/2010, from Dr. Padgett 02/26/2011, yearly check Routine gynecological examination 03/16/2010 12/14/2014 Overview: [facility] [place] Pruritus of genital organs 09/06/2008 0 03/16/2010 Other diseases of lung, not elsewhere classified 11/07/2005 02/28/2020 Hyperlipidemia 07/19/2005 02/28/2020 documented as of this encounter (statuses as of 07/15/2023) [facility]07-19-2023 History of Past illness Narrative* Problem Noted Date Diagnosed Date Resolved Date Calculus of gallbladder with acute on chronic cholecystitis without obstruction 06/04/20232022 Cough 02/16/2019 02/28/2020 Acute bacterial sinusitis 02/16/2019 Visit for screening mammogram 02/16/2019 02/28/2020 Myalgia 08/05/2018 02/28/2020 Uncontrolled type 2 diabetes mellitus without complication, without long-term current use of insulin 08/05/2018 02/28/2020 Right upper quadrant pain 08/05/2018 Chest pain 08/05/2018 02/28/2020 PONV (postoperative nausea and vomiting) 03/11/2018 02/28/2020 Pelvic mass 02/25/2018 08/24/2019 Overview: Added automatically from request for surgery [id number] Need for pneumococcal vaccination 12/26/2017 02/28/2020 Atrophic vaginitis 12/26/2017 0 Adjustment insomnia 12/26/2017 02/28/20 20 Yeast vaginitis 12/26/2017 02/28/2020 CKD (chronic kidney disease) 02/14/2016 02/28/2020 Right lower quadrant abdominal pain 08/03/2015 02/28/2020 Diverticulitis of large intestine 08/03/2015 02/28/2020 Bronchitis 09/15/2012 02/28/2020 Unspecified pruritic disorder 10/12/2010 02/28/2020 Disorder of bone and cartilage, unspecified 10/12/2010 02/28/2020 Routine general medical exam ination at a health care facility 03/16/2010 12/14/2014 Overview: 03/16/2010, from Dr. Padgett 02/26/2011, yearly check Routine gynecological examination 03/16/2010 12/14/2014 Overview: [facility], [facility] [place] Pruritus of genital organs 09/06/2008 0 03/16/2010 Other diseases of lung, not elsewhere classified 11/07/2005 02/28/2020 Hyperlipidemia 07/19/2005 02/28/2020 documented as of this encounter (statuses as of 07/17/2023) [facility]-19-2023 History of Past illness Narrative* Problem Noted Date Diagnosed Date Resolved Date Calculus of gallbladder with acute on chronic cholecystitis without obstruction 06/04/20232022 Cough 02/16/2019 02/28/2020 Acute bacterial sinusitis 02/16/2019 Visit for screening mammogram 02/16/2019 02/28/2020 Myalgia 08/05/2018 02/28/2020 Uncontrolled type 2 diabetes mellitus without complication, without long-term current use of insulin 08/05/2018 02/28/2020 Right upper quadrant pain 08/05/2018 Chest pain 08/05/2018 02/28/2020 PONV (postoperative nausea and vomiting) 03/11/2018 02/28/2020 Pelvic mass 02/25/2018 08/24/2019 Overview: Added automatically from request for surgery [id number] Need for pneumococcal vaccination 12/26/2017 02/28/2020 Atrophic vaginitis 12/26/2017 0 Adjustment insomnia 12/26/2017 02/28/20 20 Yeast vaginitis 12/26/2017 02/28/2020 CKD (chronic kidney disease) 02/14/2016 02/28/2020 Right lower quadrant abdominal pain 08/03/2015 02/28/2020 Diverticulitis of large intestine 08/03/2015 02/28/2020 Bronchitis 09/15/2012 02/28/2020 Unspecified pruritic disorder 10/12/2010 02/28/2020 Disorder of bone and cartilage, unspecified 10/12/2010 02/28/2020 Routine general medical exam ination at a health care facility 03/16/2010 12/14/2014 Overview: 03/16/2010, from Dr. Padgett 02/26/2011, yearly check Routine gynecological examination 03/16/2010 12/14/2014 Overview: [facility], [facility] [place] Pruritus of genital organs 09/06/2008 0 03/16/2010 Other diseases of lung, not elsewhere classified 11/07/2005 02/28/2020 Hyperlipidemia 07/19/2005 02/28/2020 documented as of this encounter (statuses as of 07/30/2023) [facility]-19-2023 History of Past illness Narrative* Problem Noted Date Diagnosed Date Resolved Date Calculus of gallbladder with acute on chronic cholecystitis without obstruction 06/04/20232022 Cough 02/16/2019 02/28/2020 Acute bacterial sinusitis 02/16/2019 Visit for screening mammogram 02/16/2019 02/28/2020 Myalgia 08/05/2018 02/28/2020 Uncontrolled type 2 diabetes mellitus without complication, without long-term current use of insulin 08/05/2018 02/28/2020 Right upper quadrant pain 08/05/2018 Chest pain 08/05/2018 02/28/2020 PONV (postoperative nausea and vomiting) 03/11/2018 02/28/2020 Pelvic mass 02/25/2018 08/24/2019 Overview: Added automatically from request for surgery [id number] Need for pneumococcal vaccination 12/26/2017 02/28/2020 Atrophic vaginitis 12/26/2017 0 Adjustment insomnia 12/26/2017 02/28/20 20 Yeast vaginitis 12/26/2017 02/28/2020 CKD (chronic kidney disease) 02/14/2016 02/28/2020 Right lower quadrant abdominal pain 08/03/2015 02/28/2020 Diverticulitis of large intestine 08/03/2015 02/28/2020 Bronchitis 09/15/2012 02/28/2020 Unspecified pruritic disorder 10/12/2010 02/28/2020 Disorder of bone and cartilage, unspecified 10/12/2010 02/28/2020 Routine general medical exam ination at a health care facility 03/16/2010 12/14/2014 Overview: 03/16/2010, from Dr. Padgett 02/26/2011, yearly check Routine gynecological examination 03/16/2010 12/14/2014 Overview: [facility] [place] Pruritus of genital organs 09/06/2008 0 03/16/2010 Other diseases of lung, not elsewhere classified 11/07/2005 02/28/2020 Hyperlipidemia 07/19/2005 02/28/2020 documented as of this encounter (statuses as of 08/05/2023) [facility]-19-2023 History of Past illness Narrative* Problem Noted Date Diagnosed Date Resolved Date Calculus of gallbladder with acute on chronic cholecystitis without obstruction 06/04/20232022 Cough 02/16/2019 02/28/2020 Acute bacterial sinusitis 02/16/2019 Visit for screening mammogram 02/16/2019 02/28/2020 Myalgia 08/05/2018 02/28/2020 Uncontrolled type 2 diabetes mellitus without complication, without long-term current use of insulin 08/05/2018 02/28/2020 Right upper quadrant pain 08/05/2018 Chest pain 08/05/2018 02/28/2020 PONV (postoperative nausea and vomiting) 03/11/2018 02/28/2020 Pelvic mass 02/25/2018 08/24/2019 Overview: Added automatically from request for surgery [id number] Need for pneumococcal vaccination 12/26/2017 02/28/2020 Atrophic vaginitis 12/26/2017 0 Adjustment insomnia 12/26/2017 02/28/20 20 Yeast vaginitis 12/26/2017 02/28/2020 CKD (chronic kidney disease) 02/14/2016 02/28/2020 Right lower quadrant abdominal pain 08/03/2015 02/28/2020 Diverticulitis of large intestine 08/03/2015 02/28/2020 Bronchitis 09/15/2012 02/28/2020 Unspecified pruritic disorder 10/12/2010 02/28/2020 Disorder of bone and cartilage, unspecified 10/12/2010 02/28/2020 Routine general medical exam ination at a health care facility 03/16/2010 12/14/2014 Overview: 03/16/2010, from Dr. Padgett 02/26/2011, yearly check Routine gynecological examination 03/16/2010 12/14/2014 Overview: [facility], [facility] [place] Pruritus of genital organs 09/06/2008 0 03/16/2010 Other diseases of lung, not elsewhere classified 11/07/2005 02/28/2020 Hyperlipidemia 07/19/2005 02/28/2020 documented as of this encounter (statuses as of 08/15/2023) [facility]-19-2023 History of Past illness Narrative* Problem Noted Date Diagnosed Date Resolved Date Calculus of gallbladder with acute on chronic cholecystitis without obstruction 06/04/20232022 Cough 02/16/2019 02/28/2020 Acute bacterial sinusitis 02/16/2019 Visit for screening mammogram 02/16/2019 02/28/2020 Myalgia 08/05/2018 02/28/2020 Uncontrolled type 2 diabetes mellitus without complication, without long-term current use of insulin 08/05/2018 02/28/2020 Right upper quadrant pain 08/05/2018 Chest pain 08/05/2018 02/28/2020 PONV (postoperative nausea and vomiting) 03/11/2018 02/28/2020 Pelvic mass 02/25/2018 08/24/2019 Overview: Added automatically from request for surgery [id number] Need for pneumococcal vaccination 12/26/2017 02/28/2020 Atrophic vaginitis 12/26/2017 0 Adjustment insomnia 12/26/2017 02/28/20 20 Yeast vaginitis 12/26/2017 02/28/2020 CKD (chronic kidney disease) 02/14/2016 02/28/2020 Right lower quadrant abdominal pain 08/03/2015 02/28/2020 Diverticulitis of large intestine 08/03/2015 02/28/2020 Bronchitis 09/15/2012 02/28/2020 Unspecified pruritic disorder 10/12/2010 02/28/2020 Disorder of bone and cartilage, unspecified 10/12/2010 02/28/2020 Routine general medical exam ination at a health care facility 03/16/2010 12/14/2014 Overview: 03/16/2010, from Dr. Padgett 02/26/2011, yearly check Routine gynecological examination 03/16/2010 12/14/2014 Overview: [facility] [place] Pruritus of genital organs 09/06/2008 0 03/16/2010 Other diseases of lung, not elsewhere classified 11/07/2005 02/28/2020 Hyperlipidemia 07/19/2005 02/28/2020 documented as of this encounter (statuses as of 08/16/2023) [facility]-19-2023 History of Past illness Narrative* Problem Noted Date Diagnosed Date Resolved Date Calculus of gallbladder with acute on chronic cholecystitis without obstruction 06/04/20232022 Cough 02/16/2019 02/28/2020 Acute bacterial sinusitis 02/16/2019 Visit for screening mammogram 02/16/2019 02/28/2020 Myalgia 08/05/2018 02/28/2020 Uncontrolled type 2 diabetes mellitus without complication, without long-term current use of insulin 08/05/2018 02/28/2020 Right upper quadrant pain 08/05/2018 Chest pain 08/05/2018 02/28/2020 PONV (postoperative nausea and vomiting) 03/11/2018 02/28/2020 Pelvic mass 02/25/2018 08/24/2019 Overview: Added automatically from request for surgery [id number] Need for pneumococcal vaccination 12/26/2017 02/28/2020 Atrophic vaginitis 12/26/2017 0 Adjustment insomnia 12/26/2017 02/28/20 20 Yeast vaginitis 12/26/2017 02/28/2020 CKD (chronic kidney disease) 02/14/2016 02/28/2020 Right lower quadrant abdominal pain 08/03/2015 02/28/2020 Diverticulitis of large intestine 08/03/2015 02/28/2020 Bronchitis 09/15/2012 02/28/2020 Unspecified pruritic disorder 10/12/2010 02/28/2020 Disorder of bone and cartilage, unspecified 10/12/2010 02/28/2020 Routine general medical exam ination at a health care facility 03/16/2010 12/14/2014 Overview: 03/16/2010, from Dr. Padgett 02/26/2011, yearly check Routine gynecological examination 03/16/2010 12/14/2014 Overview: [facility], [facility] [place] Pruritus of genital organs 09/06/2008 0 03/16/2010 Other diseases of lung, not elsewhere classified 11/07/2005 02/28/2020 Hyperlipidemia 07/19/2005 02/28/2020 documented as of this encounter (statuses as of 08/22/2023) [facility]-19-2023 History of Past illness Narrative* Problem Noted Date Diagnosed Date Resolved Date Calculus of gallbladder with acute on chronic cholecystitis without obstruction 06/04/20232022 Cough 02/16/2019 02/28/2020 Acute bacterial sinusitis 02/16/2019 Visit for screening mammogram 02/16/2019 02/28/2020 Myalgia 08/05/2018 02/28/2020 Uncontrolled type 2 diabetes mellitus without complication, without long-term current use of insulin 08/05/2018 02/28/2020 Right upper quadrant pain 08/05/2018 Chest pain 08/05/2018 02/28/2020 PONV (postoperative nausea and vomiting) 03/11/2018 02/28/2020 Pelvic mass 02/25/2018 08/24/2019 Overview: Added automatically from request for surgery [id number] Need for pneumococcal vaccination 12/26/2017 02/28/2020 Atrophic vaginitis 12/26/2017 0 Adjustment insomnia 12/26/2017 02/28/20 20 Yeast vaginitis 12/26/2017 02/28/2020 CKD (chronic kidney disease) 02/14/2016 02/28/2020 Right lower quadrant abdominal pain 08/03/2015 02/28/2020 Diverticulitis of large intestine 08/03/2015 02/28/2020 Bronchitis 09/15/2012 02/28/2020 Unspecified pruritic disorder 10/12/2010 02/28/2020 Disorder of bone and cartilage, unspecified 10/12/2010 02/28/2020 Routine general medical exam ination at a health care facility 03/16/2010 12/14/2014 Overview: 03/16/2010, from Dr. Padgett 02/26/2011, yearly check Routine gynecological examination 03/16/2010 12/14/2014 Overview: [facility] [place] Pruritus of genital organs 09/06/2008 0 03/16/2010 Other diseases of lung, not elsewhere classified 11/07/2005 02/28/2020 Hyperlipidemia 07/19/2005 02/28/2020 documented as of this encounter (statuses as of 08/27/2023) [facility]19[facility]2023 History of Past illness Narrative* Problem Noted Date Diagnosed Date Resolved Date Calculus of gallbladder with acute on chronic cholecystitis without obstruction 06/04/20232022 Cough 02/16/2019 02/28/2020 Acute bacterial sinusitis 02/16/2019 Visit for screening mammogram 02/16/2019 02/28/2020 Myalgia 08/05/2018 02/28/2020 Uncontrolled type 2 diabetes mellitus without complication, without long-term current use of insulin 08/05/2018 02/28/2020 Right upper quadrant pain 08/05/2018 Chest pain 08/05/2018 02/28/2020 PONV (postoperative nausea and vomiting) 03/11/2018 02/28/2020 Pelvic mass 02/25/2018 08/24/2019 Overview: Added automatically from request for surgery [id number] Need for pneumococcal vaccination 12/26/2017 02/28/2020 Atrophic vaginitis 12/26/2017 0 Adjustment insomnia 12/26/2017 02/28/20 20 Yeast vaginitis 12/26/2017 02/28/2020 CKD (chronic kidney disease) 02/14/2016 02/28/2020 Right lower quadrant abdominal pain 08/03/2015 02/28/2020 Diverticulitis of large intestine 08/03/2015 02/28/2020 Bronchitis 09/15/2012 02/28/2020 Unspecified pruritic disorder 10/12/2010 02/28/2020 Disorder of bone and cartilage, unspecified 10/12/2010 02/28/2020 Routine general medical exam ination at a health care facility 03/16/2010 12/14/2014 Overview: 03/16/2010, from Dr. Padgett 02/26/2011, yearly check Routine gynecological examination 03/16/2010 12/14/2014 Overview: [facility] [place] Pruritus of genital organs 09/06/2008 0 03/16/2010 Other diseases of lung, not elsewhere classified 11/07/2005 02/28/2020 Hyperlipidemia 07/19/2005 02/28/2020 documented as of this encounter (statuses as of 09/12/2023) [facility]-19[facility]2023 History of Past illness Narrative* Problem Noted Date Diagnosed Date Resolved Date Calculus of gallbladder with acute on chronic cholecystitis without obstruction 06/04/20232022 Cough 02/16/2019 02/28/2020 Acute bacterial sinusitis 02/16/2019 Visit for screening mammogram 02/16/2019 02/28/2020 Myalgia 08/05/2018 02/28/2020 Uncontrolled type 2 diabetes mellitus without complication, without long-term current use of insulin 08/05/2018 02/28/2020 Right upper quadrant pain 08/05/2018 Chest pain 08/05/2018 02/28/2020 PONV (postoperative nausea and vomiting) 03/11/2018 02/28/2020 Pelvic mass 02/25/2018 08/24/2019 Overview: Added automatically from request for surgery [id number] Need for pneumococcal vaccination 12/26/2017 02/28/2020 Atrophic vaginitis 12/26/2017 0 Adjustment insomnia 12/26/2017 02/28/20 20 Yeast vaginitis 12/26/2017 02/28/2020 CKD (chronic kidney disease) 02/14/2016 02/28/2020 Right lower quadrant abdominal pain 08/03/2015 02/28/2020 Diverticulitis of large intestine 08/03/2015 02/28/2020 Bronchitis 09/15/2012 02/28/2020 Unspecified pruritic disorder 10/12/2010 02/28/2020 Disorder of bone and cartilage, unspecified 10/12/2010 02/28/2020 Routine general medical exam ination at a health care facility 03/16/2010 12/14/2014 Overview: 03/16/2010, from Dr. Padgett 02/26/2011, yearly check Routine gynecological examination 03/16/2010 12/14/2014 Overview: [facility], [facility] [place] Pruritus of genital organs 09/06/2008 0 03/16/2010 Other diseases of lung, not elsewhere classified 11/07/2005 02/28/2020 Hyperlipidemia 07/19/2005 02/28/2020 documented as of this encounter (statuses as of 09/25/2023) [facility]2023 History of Past illness Narrative* Problem Noted Date Diagnosed Date Resolved Date Calculus of gallbladder with acute on chronic cholecystitis without obstruction 06/04/20232022 Cough 02/16/2019 02/28/2020 Acute bacterial sinusitis 02/16/2019 Visit for screening mammogram 02/16/2019 02/28/2020 Myalgia 08/05/2018 02/28/2020 Uncontrolled type 2 diabetes mellitus without complication, without long-term current use of insulin 08/05/2018 02/28/2020 Right upper quadrant pain 08/05/2018 Chest pain 08/05/2018 02/28/2020 PONV (postoperative nausea and vomiting) 03/11/2018 02/28/2020 Pelvic mass 02/25/2018 08/24/2019 Overview: Added automatically from request for surgery [id number] Need for pneumococcal vaccination 12/26/2017 02/28/2020 Atrophic vaginitis 12/26/2017 0 Adjustment insomnia 12/26/2017 02/28/20 20 Yeast vaginitis 12/26/2017 02/28/2020 CKD (chronic kidney disease) 02/14/2016 02/28/2020 Right lower quadrant abdominal pain 08/03/2015 02/28/2020 Diverticulitis of large intestine 08/03/2015 02/28/2020 Bronchitis 09/15/2012 02/28/2020 Unspecified pruritic disorder 10/12/2010 02/28/2020 Disorder of bone and cartilage, unspecified 10/12/2010 02/28/2020 Routine general medical exam ination at a health care facility 03/16/2010 12/14/2014 Overview: 03/16/2010, from Dr. Padgett 02/26/2011, yearly check Routine gynecological examination 03/16/2010 12/14/2014 Overview: [facility], [facility] [place] Pruritus of genital organs 09/06/2008 0 03/16/2010 Other diseases of lung, not elsewhere classified 11/07/2005 02/28/2020 Hyperlipidemia 07/19/2005 02/28/2020 documented as of this encounter (statuses as of 10/02/2023) [facility] History of Past illness Narrative* Problem Noted Date Diagnosed Date Resolved Date Calculus of gallbladder with acute on chronic cholecystitis without obstruction 06/04/20232022 Cough 02/16/2019 02/28/2020 Acute bacterial sinusitis 02/16/2019 Visit for screening mammogram 02/16/2019 02/28/2020 Myalgia 08/05/2018 02/28/2020 Uncontrolled type 2 diabetes mellitus without complication, without long-term current use of insulin 08/05/2018 02/28/2020 Right upper quadrant pain 08/05/2018 Chest pain 08/05/2018 02/28/2020 PONV (postoperative nausea and vomiting) 03/11/2018 02/28/2020 Pelvic mass 02/25/2018 08/24/2019 Overview: Added automatically from request for surgery [id number] Need for pneumococcal vaccination 12/26/2017 02/28/2020 Atrophic vaginitis 12/26/2017 0 Adjustment insomnia 12/26/2017 02/28/20 20 Yeast vaginitis 12/26/2017 02/28/2020 CKD (chronic kidney disease) 02/14/2016 02/28/2020 Right lower quadrant abdominal pain 08/03/2015 02/28/2020 Diverticulitis of large intestine 08/03/2015 02/28/2020 Bronchitis 09/15/2012 02/28/2020 Unspecified pruritic disorder 10/12/2010 02/28/2020 Disorder of bone and cartilage, unspecified 10/12/2010 02/28/2020 Routine general medical exam ination at a health care facility 03/16/2010 12/14/2014 Overview: 03/16/2010, from Dr. Padgett 02/26/2011, yearly check Routine gynecological examination 03/16/2010 12/14/2014 Overview: [facility] [place] Pruritus of genital organs 09/06/2008 0 03/16/2010 Other diseases of lung, not elsewhere classified 11/07/2005 02/28/2020 Hyperlipidemia 07/19/2005 02/28/2020 documented as of this encounter (statuses as of 10/03/2023) [facility]20[facility] History of Past illness Narrative* Problem Noted Date Diagnosed Date Resolved Date Calculus of gallbladder with acute on chronic cholecystitis without obstruction 06/04/20232022 Cough 02/16/2019 02/28/2020 Acute bacterial sinusitis 02/16/2019 Visit for screening mammogram 02/16/2019 02/28/2020 Myalgia 08/05/2018 02/28/2020 Uncontrolled type 2 diabetes mellitus without complication, without long-term current use of insulin 08/05/2018 02/28/2020 Right upper quadrant pain 08/05/2018 Chest pain 08/05/2018 02/28/2020 PONV (postoperative nausea and vomiting) 03/11/2018 02/28/2020 Pelvic mass 02/25/2018 08/24/2019 Overview: Added automatically from request for surgery [id number] Need for pneumococcal vaccination 12/26/2017 02/28/2020 Atrophic vaginitis 12/26/2017 0 Adjustment insomnia 12/26/2017 02/28/20 20 Yeast vaginitis 12/26/2017 02/28/2020 CKD (chronic kidney disease) 02/14/2016 02/28/2020 Right lower quadrant abdominal pain 08/03/2015 02/28/2020 Diverticulitis of large intestine 08/03/2015 02/28/2020 Bronchitis 09/15/2012 02/28/2020 Unspecified pruritic disorder 10/12/2010 02/28/2020 Disorder of bone and cartilage, unspecified 10/12/2010 02/28/2020 Routine general medical exam ination at a health care facility 03/16/2010 12/14/2014 Overview: 03/16/2010, from Dr. Padgett 02/26/2011, yearly check Routine gynecological examination 03/16/2010 12/14/2014 Overview: [facility] [place] Pruritus of genital organs 09/06/2008 0 03/16/2010 Other diseases of lung, not elsewhere classified 11/07/2005 02/28/2020 Hyperlipidemia 07/19/2005 02/28/2020 documented as of this encounter (statuses as of 10/08/2023) [facility]2023 History of Past illness Narrative* Problem Noted Date Diagnosed Date Resolved Date Calculus of gallbladder with acute on chronic cholecystitis without obstruction 06/04/20232022 Cough 02/16/2019 02/28/2020 Acute bacterial sinusitis 02/16/2019 Visit for screening mammogram 02/16/2019 02/28/2020 Myalgia 08/05/2018 02/28/2020 Uncontrolled type 2 diabetes mellitus without complication, without long-term current use of insulin 08/05/2018 02/28/2020 Right upper quadrant pain 08/05/2018 Chest pain 08/05/2018 02/28/2020 PONV (postoperative nausea and vomiting) 03/11/2018 02/28/2020 Pelvic mass 02/25/2018 08/24/2019 Overview: Added automatically from request for surgery [id number] Need for pneumococcal vaccination 12/26/2017 02/28/2020 Atrophic vaginitis 12/26/2017 0 Adjustment insomnia 12/26/2017 02/28/20 20 Yeast vaginitis 12/26/2017 02/28/2020 CKD (chronic kidney disease) 02/14/2016 02/28/2020 Right lower quadrant abdominal pain 08/03/2015 02/28/2020 Diverticulitis of large intestine 08/03/2015 02/28/2020 Bronchitis 09/15/2012 02/28/2020 Unspecified pruritic disorder 10/12/2010 02/28/2020 Disorder of bone and cartilage, unspecified 10/12/2010 02/28/2020 Routine general medical exam ination at a health care facility 03/16/2010 12/14/2014 Overview: 03/16/2010, from Dr. Padgett 02/26/2011, yearly check Routine gynecological examination 03/16/2010 12/14/2014 Overview: [facility] [place] Pruritus of genital organs 09/06/2008 0 03/16/2010 Other diseases of lung, not elsewhere classified 11/07/2005 02/28/2020 Hyperlipidemia 07/19/2005 02/28/2020 documented as of this encounter (statuses as of 10/08/2023) [facility]07-19-2023 History of Past illness Narrative* Problem Noted Date Diagnosed Date Resolved Date Calculus of gallbladder with acute on chronic cholecystitis without obstruction 06/04/20232022 Cough 02/16/2019 02/28/2020 Acute bacterial sinusitis 02/16/2019 Visit for screening mammogram 02/16/2019 02/28/2020 Myalgia 08/05/2018 02/28/2020 Uncontrolled type 2 diabetes mellitus without complication, without long-term current use of insulin 08/05/2018 02/28/2020 Right upper quadrant pain 08/05/2018 Chest pain 08/05/2018 02/28/2020 PONV (postoperative nausea and vomiting) 03/11/2018 02/28/2020 Pelvic mass 02/25/2018 08/24/2019 Overview: Added automatically from request for surgery [id number] Need for pneumococcal vaccination 12/26/2017 02/28/2020 Atrophic vaginitis 12/26/2017 0 Adjustment insomnia 12/26/2017 02/28/20 20 Yeast vaginitis 12/26/2017 02/28/2020 CKD (chronic kidney disease) 02/14/2016 02/28/2020 Right lower quadrant abdominal pain 08/03/2015 02/28/2020 Diverticulitis of large intestine 08/03/2015 02/28/2020 Bronchitis 09/15/2012 02/28/2020 Unspecified pruritic disorder 10/12/2010 02/28/2020 Disorder of bone and cartilage, unspecified 10/12/2010 02/28/2020 Routine general medical exam ination at a health care facility 03/16/2010 12/14/2014 Overview: 03/16/2010, from Dr. Padgett 02/26/2011, yearly check Routine gynecological examination 03/16/2010 12/14/2014 Overview: [facility] [place] Pruritus of genital organs 09/06/2008 0 03/16/2010 Other diseases of lung, not elsewhere classified 11/07/2005 02/28/2020 Hyperlipidemia 07/19/2005 02/28/2020 documented as of this encounter (statuses as of 10/14/2023) [facility]07-19-2023 History of Past illness Narrative* Problem Noted Date Diagnosed Date Resolved Date Calculus of gallbladder with acute on chronic cholecystitis without obstruction 06/04/20232022 Cough 02/16/2019 02/28/2020 Acute bacterial sinusitis 02/16/2019 Visit for screening mammogram 02/16/2019 02/28/2020 Myalgia 08/05/2018 02/28/2020 Uncontrolled type 2 diabetes mellitus without complication, without long-term current use of insulin 08/05/2018 02/28/2020 Right upper quadrant pain 08/05/2018 Chest pain 08/05/2018 02/28/2020 PONV (postoperative nausea and vomiting) 03/11/2018 02/28/2020 Pelvic mass 02/25/2018 08/24/2019 Overview: Added automatically from request for surgery [id number] Need for pneumococcal vaccination 12/26/2017 02/28/2020 Atrophic vaginitis 12/26/2017 0 Adjustment insomnia 12/26/2017 02/28/20 20 Yeast vaginitis 12/26/2017 02/28/2020 CKD (chronic kidney disease) 02/14/2016 02/28/2020 Right lower quadrant abdominal pain 08/03/2015 02/28/2020 Diverticulitis of large intestine 08/03/2015 02/28/2020 Bronchitis 09/15/2012 02/28/2020 Unspecified pruritic disorder 10/12/2010 02/28/2020 Disorder of bone and cartilage, unspecified 10/12/2010 02/28/2020 Routine general medical exam ination at a health care facility 03/16/2010 12/14/2014 Overview: 03/16/2010, from Dr. Padgett 02/26/2011, yearly check Routine gynecological examination 03/16/2010 12/14/2014 Overview: [facility] [place] Pruritus of genital organs 09/06/2008 0 03/16/2010 Other diseases of lung, not elsewhere classified 11/07/2005 02/28/2020 Hyperlipidemia 07/19/2005 02/28/2020 documented as of this encounter (statuses as of 10/16/2023) [facility]-19-2023 History of Past illness Narrative* Problem Noted Date Diagnosed Date Resolved Date Calculus of gallbladder with acute on chronic cholecystitis without obstruction 06/04/20232022 Cough 02/16/2019 02/28/2020 Acute bacterial sinusitis 02/16/2019 Visit for screening mammogram 02/16/2019 02/28/2020 Myalgia 08/05/2018 02/28/2020 Uncontrolled type 2 diabetes mellitus without complication, without long-term current use of insulin 08/05/2018 02/28/2020 Right upper quadrant pain 08/05/2018 Chest pain 08/05/2018 02/28/2020 PONV (postoperative nausea and vomiting) 03/11/2018 02/28/2020 Pelvic mass 02/25/2018 08/24/2019 Overview: Added automatically from request for surgery [id number] Need for pneumococcal vaccination 12/26/2017 02/28/2020 Atrophic vaginitis 12/26/2017 0 Adjustment insomnia 12/26/2017 02/28/20 20 Yeast vaginitis 12/26/2017 02/28/2020 CKD (chronic kidney disease) 02/14/2016 02/28/2020 Right lower quadrant abdominal pain 08/03/2015 02/28/2020 Diverticulitis of large intestine 08/03/2015 02/28/2020 Bronchitis 09/15/2012 02/28/2020 Unspecified pruritic disorder 10/12/2010 02/28/2020 Disorder of bone and cartilage, unspecified 10/12/2010 02/28/2020 Routine general medical exam ination at a health care facility 03/16/2010 12/14/2014 Overview: 03/16/2010, from Dr. Padgett 02/26/2011, yearly check Routine gynecological examination 03/16/2010 12/14/2014 Overview: [facility] [place] Pruritus of genital organs 09/06/2008 0 03/16/2010 Other diseases of lung, not elsewhere classified 11/07/2005 02/28/2020 Hyperlipidemia 07/19/2005 02/28/2020 documented as of this encounter (statuses as of 10/22/2023) [facility]-19-2023 History of Past illness Narrative* Problem Noted Date Diagnosed Date Resolved Date Calculus of gallbladder with acute on chronic cholecystitis without obstruction 06/04/20232022 Cough 02/16/2019 02/28/2020 Acute bacterial sinusitis 02/16/2019 Visit for screening mammogram 02/16/2019 02/28/2020 Myalgia 08/05/2018 02/28/2020 Uncontrolled type 2 diabetes mellitus without complication, without long-term current use of insulin 08/05/2018 02/28/2020 Right upper quadrant pain 08/05/2018 Chest pain 08/05/2018 02/28/2020 PONV (postoperative nausea and vomiting) 03/11/2018 02/28/2020 Pelvic mass 02/25/2018 08/24/2019 Overview: Added automatically from request for surgery [id number] Need for pneumococcal vaccination 12/26/2017 02/28/2020 Atrophic vaginitis 12/26/2017 0 Adjustment insomnia 12/26/2017 02/28/20 20 Yeast vaginitis 12/26/2017 02/28/2020 CKD (chronic kidney disease) 02/14/2016 02/28/2020 Right lower quadrant abdominal pain 08/03/2015 02/28/2020 Diverticulitis of large intestine 08/03/2015 02/28/2020 Bronchitis 09/15/2012 02/28/2020 Unspecified pruritic disorder 10/12/2010 02/28/2020 Disorder of bone and cartilage, unspecified 10/12/2010 02/28/2020 Routine general medical exam ination at a health care facility 03/16/2010 12/14/2014 Overview: 03/16/2010, from Dr. Padgett 02/26/2011, yearly check Routine gynecological examination 03/16/2010 12/14/2014 Overview: [facility] [place] Pruritus of genital organs 09/06/2008 0 03/16/2010 Other diseases of lung, not elsewhere classified 11/07/2005 02/28/2020 Hyperlipidemia 07/19/2005 02/28/2020 documented as of this encounter (statuses as of 10/31/2023) [facility]-19-2023 History of Past illness Narrative* Problem Noted Date Diagnosed Date Resolved Date Calculus of gallbladder with acute on chronic cholecystitis without obstruction 06/04/20232022 Cough 02/16/2019 02/28/2020 Acute bacterial sinusitis 02/16/2019 Visit for screening mammogram 02/16/2019 02/28/2020 Myalgia 08/05/2018 02/28/2020 Uncontrolled type 2 diabetes mellitus without complication, without long-term current use of insulin 08/05/2018 02/28/2020 Right upper quadrant pain 08/05/2018 Chest pain 08/05/2018 02/28/2020 PONV (postoperative nausea and vomiting) 03/11/2018 02/28/2020 Pelvic mass 02/25/2018 08/24/2019 Overview: Added automatically from request for surgery [id number] Need for pneumococcal vaccination 12/26/2017 02/28/2020 Atrophic vaginitis 12/26/2017 0 Adjustment insomnia 12/26/2017 02/28/20 20 Yeast vaginitis 12/26/2017 02/28/2020 CKD (chronic kidney disease) 02/14/2016 02/28/2020 Right lower quadrant abdominal pain 08/03/2015 02/28/2020 Diverticulitis of large intestine 08/03/2015 02/28/2020 Bronchitis 09/15/2012 02/28/2020 Unspecified pruritic disorder 10/12/2010 02/28/2020 Disorder of bone and cartilage, unspecified 10/12/2010 02/28/2020 Routine general medical exam ination at a health care facility 03/16/2010 12/14/2014 Overview: 03/16/2010, from Dr. Padgett 02/26/2011, yearly check Routine gynecological examination 03/16/2010 12/14/2014 Overview: [facility], [facility] [place] Pruritus of genital organs 09/06/2008 0 03/16/2010 Other diseases of lung, not elsewhere classified 11/07/2005 02/28/2020 Hyperlipidemia 07/19/2005 02/28/2020 documented as of this encounter (statuses as of 11/06/2023) [facility]-19-2023 History of Past illness Narrative* Problem Noted Date Diagnosed Date Resolved Date Calculus of gallbladder with acute on chronic cholecystitis without obstruction 06/04/20232022 Cough 02/16/2019 02/28/2020 Acute bacterial sinusitis 02/16/2019 Visit for screening mammogram 02/16/2019 02/28/2020 Myalgia 08/05/2018 02/28/2020 Uncontrolled type 2 diabetes mellitus without complication, without long-term current use of insulin 08/05/2018 02/28/2020 Right upper quadrant pain 08/05/2018 Chest pain 08/05/2018 02/28/2020 PONV (postoperative nausea and vomiting) 03/11/2018 02/28/2020 Pelvic mass 02/25/2018 08/24/2019 Overview: Added automatically from request for surgery [id number] Need for pneumococcal vaccination 12/26/2017 02/28/2020 Atrophic vaginitis 12/26/2017 0 Adjustment insomnia 12/26/2017 02/28/20 20 Yeast vaginitis 12/26/2017 02/28/2020 CKD (chronic kidney disease) 02/14/2016 02/28/2020 Right lower quadrant abdominal pain 08/03/2015 02/28/2020 Diverticulitis of large intestine 08/03/2015 02/28/2020 Bronchitis 09/15/2012 02/28/2020 Unspecified pruritic disorder 10/12/2010 02/28/2020 Disorder of bone and cartilage, unspecified 10/12/2010 02/28/2020 Routine general medical exam ination at a health care facility 03/16/2010 12/14/2014 Overview: 03/16/2010, from Dr. Padgett 02/26/2011, yearly check Routine gynecological examination 03/16/2010 12/14/2014 Overview: [facility], [facility] [place] Pruritus of genital organs 09/06/2008 0 03/16/2010 Other diseases of lung, not elsewhere classified 11/07/2005 02/28/2020 Hyperlipidemia 07/19/2005 02/28/2020 documented as of this encounter (statuses as of 12/19/2023) [facility]-19-2023 History of Past illness Narrative* Problem Noted Date Diagnosed Date Resolved Date Calculus of gallbladder with acute on chronic cholecystitis without obstruction 06/04/20232022 Cough 02/16/2019 02/28/2020 Acute bacterial sinusitis 02/16/2019 Visit for screening mammogram 02/16/2019 02/28/2020 Myalgia 08/05/2018 02/28/2020 Uncontrolled type 2 diabetes mellitus without complication, without long-term current use of insulin 08/05/2018 02/28/2020 Right upper quadrant pain 08/05/2018 Chest pain 08/05/2018 02/28/2020 PONV (postoperative nausea and vomiting) 03/11/2018 02/28/2020 Pelvic mass 02/25/2018 08/24/2019 Overview: Added automatically from request for surgery [id number] Need for pneumococcal vaccination 12/26/2017 02/28/2020 Atrophic vaginitis 12/26/2017 0 Adjustment insomnia 12/26/2017 02/28/20 20 Yeast vaginitis 12/26/2017 02/28/2020 CKD (chronic kidney disease) 02/14/2016 02/28/2020 Right lower quadrant abdominal pain 08/03/2015 02/28/2020 Diverticulitis of large intestine 08/03/2015 02/28/2020 Bronchitis 09/15/2012 02/28/2020 Unspecified pruritic disorder 10/12/2010 02/28/2020 Disorder of bone and cartilage, unspecified 10/12/2010 02/28/2020 Routine general medical exam ination at a health care facility 03/16/2010 12/14/2014 Overview: 03/16/2010, from Dr. Padgett 02/26/2011, yearly check Routine gynecological examination 03/16/2010 12/14/2014 Overview: [facility], [facility] [place] Pruritus of genital organs 09/06/2008 0 03/16/2010 Other diseases of lung, not elsewhere classified 11/07/2005 02/28/2020 Hyperlipidemia 07/19/2005 02/28/2020 documented as of this encounter (statuses as of 01/16/2024) [facility]-19[facility]2023 History of Past illness Narrative* Problem Noted Date Diagnosed Date Resolved Date Calculus of gallbladder with acute on chronic cholecystitis without obstruction 06/04/20232022 Cough 02/16/2019 02/28/2020 Acute bacterial sinusitis 02/16/2019 Visit for screening mammogram 02/16/2019 02/28/2020 Myalgia 08/05/2018 02/28/2020 Uncontrolled type 2 diabetes mellitus without complication, without long-term current use of insulin 08/05/2018 02/28/2020 Right upper quadrant pain 08/05/2018 Chest pain 08/05/2018 02/28/2020 PONV (postoperative nausea and vomiting) 03/11/2018 02/28/2020 Pelvic mass 02/25/2018 08/24/2019 Overview: Added automatically from request for surgery [id number] Need for pneumococcal vaccination 12/26/2017 02/28/2020 Atrophic vaginitis 12/26/2017 0 Adjustment insomnia 12/26/2017 02/28/20 20 Yeast vaginitis 12/26/2017 02/28/2020 CKD (chronic kidney disease) 02/14/2016 02/28/2020 Right lower quadrant abdominal pain 08/03/2015 02/28/2020 Diverticulitis of large intestine 08/03/2015 02/28/2020 Bronchitis 09/15/2012 02/28/2020 Unspecified pruritic disorder 10/12/2010 02/28/2020 Disorder of bone and cartilage, unspecified 10/12/2010 02/28/2020 Routine general medical exam ination at a health care facility 03/16/2010 12/14/2014 Overview: 03/16/2010, from Dr. Padgett 02/26/2011, yearly check Routine gynecological examination 03/16/2010 12/14/2014 Overview: [facility], [facility] [place] Pruritus of genital organs 09/06/2008 0 03/16/2010 Other diseases of lung, not elsewhere classified 11/07/2005 02/28/2020 Hyperlipidemia 07/19/2005 02/28/2020 documented as of this encounter (statuses as of 01/16/2024) [facility]2023 History of Past illness Narrative* Problem Noted Date Diagnosed Date Resolved Date Calculus of gallbladder with acute on chronic cholecystitis without obstruction 06/04/20232022 Cough 02/16/2019 02/28/2020 Acute bacterial sinusitis 02/16/2019 Visit for screening mammogram 02/16/2019 02/28/2020 Myalgia 08/05/2018 02/28/2020 Uncontrolled type 2 diabetes mellitus without complication, without long-term current use of insulin 08/05/2018 02/28/2020 Right upper quadrant pain 08/05/2018 Chest pain 08/05/2018 02/28/2020 PONV (postoperative nausea and vomiting) 03/11/2018 02/28/2020 Pelvic mass 02/25/2018 08/24/2019 Overview: Added automatically from request for surgery [id number] Need for pneumococcal vaccination 12/26/2017 02/28/2020 Atrophic vaginitis 12/26/2017 0 Adjustment insomnia 12/26/2017 02/28/20 20 Yeast vaginitis 12/26/2017 02/28/2020 CKD (chronic kidney disease) 02/14/2016 02/28/2020 Right lower quadrant abdominal pain 08/03/2015 02/28/2020 Diverticulitis of large intestine 08/03/2015 02/28/2020 Bronchitis 09/15/2012 02/28/2020 Unspecified pruritic disorder 10/12/2010 02/28/2020 Disorder of bone and cartilage, unspecified 10/12/2010 02/28/2020 Routine general medical exam ination at a health care facility 03/16/2010 12/14/2014 Overview: 03/16/2010, from Dr. Padgett 02/26/2011, yearly check Routine gynecological examination 03/16/2010 12/14/2014 Overview: [facility], [facility] [place] Pruritus of genital organs 09/06/2008 0 03/16/2010 Other diseases of lung, not elsewhere classified 11/07/2005 02/28/2020 Hyperlipidemia 07/19/2005 02/28/2020 documented as of this encounter (statuses as of 01/22/2024) [facility]20[facility] History of Past illness Narrative* Problem Noted Date Diagnosed Date Resolved Date Calculus of gallbladder with acute on chronic cholecystitis without obstruction 06/04/20232022 Cough 02/16/2019 02/28/2020 Acute bacterial sinusitis 02/16/2019 Visit for screening mammogram 02/16/2019 02/28/2020 Myalgia 08/05/2018 02/28/2020 Uncontrolled type 2 diabetes mellitus without complication, without long-term current use of insulin 08/05/2018 02/28/2020 Right upper quadrant pain 08/05/2018 Chest pain 08/05/2018 02/28/2020 PONV (postoperative nausea and vomiting) 03/11/2018 02/28/2020 Pelvic mass 02/25/2018 08/24/2019 Overview: Added automatically from request for surgery [id number] Need for pneumococcal vaccination 12/26/2017 02/28/2020 Atrophic vaginitis 12/26/2017 0 Adjustment insomnia 12/26/2017 02/28/20 20 Yeast vaginitis 12/26/2017 02/28/2020 CKD (chronic kidney disease) 02/14/2016 02/28/2020 Right lower quadrant abdominal pain 08/03/2015 02/28/2020 Diverticulitis of large intestine 08/03/2015 02/28/2020 Bronchitis 09/15/2012 02/28/2020 Unspecified pruritic disorder 10/12/2010 02/28/2020 Disorder of bone and cartilage, unspecified 10/12/2010 02/28/2020 Routine general medical exam ination at a health care facility 03/16/2010 12/14/2014 Overview: 03/16/2010, from Dr. Padgett 02/26/2011, yearly check Routine gynecological examination 03/16/2010 12/14/2014 Overview: [facility], [facility] [place] Pruritus of genital organs 09/06/2008 0 03/16/2010 Other diseases of lung, not elsewhere classified 11/07/2005 02/28/2020 Hyperlipidemia 07/19/2005 02/28/2020 documented as of this encounter (statuses as of 01/26/2024) [facility] History of Past illness Narrative* Problem Noted Date Diagnosed Date Resolved Date Calculus of gallbladder with acute on chronic cholecystitis without obstruction 06/04/20232022 Cough 02/16/2019 02/28/2020 Acute bacterial sinusitis 02/16/2019 Visit for screening mammogram 02/16/2019 02/28/2020 Myalgia 08/05/2018 02/28/2020 Uncontrolled type 2 diabetes mellitus without complication, without long-term current use of insulin 08/05/2018 02/28/2020 Right upper quadrant pain 08/05/2018 Chest pain 08/05/2018 02/28/2020 PONV (postoperative nausea and vomiting) 03/11/2018 02/28/2020 Pelvic mass 02/25/2018 08/24/2019 Overview: Added automatically from request for surgery [id number] Need for pneumococcal vaccination 12/26/2017 02/28/2020 Atrophic vaginitis 12/26/2017 0 Adjustment insomnia 12/26/2017 02/28/20 20 Yeast vaginitis 12/26/2017 02/28/2020 CKD (chronic kidney disease) 02/14/2016 02/28/2020 Right lower quadrant abdominal pain 08/03/2015 02/28/2020 Diverticulitis of large intestine 08/03/2015 02/28/2020 Bronchitis 09/15/2012 02/28/2020 Unspecified pruritic disorder 10/12/2010 02/28/2020 Disorder of bone and cartilage, unspecified 10/12/2010 02/28/2020 Routine general medical exam ination at a health care facility 03/16/2010 12/14/2014 Overview: 03/16/2010, from Dr. Padgett 02/26/2011, yearly check Routine gynecological examination 03/16/2010 12/14/2014 Overview: [facility] [place] Pruritus of genital organs 09/06/2008 0 03/16/2010 Other diseases of lung, not elsewhere classified 11/07/2005 02/28/2020 Hyperlipidemia 07/19/2005 02/28/2020 documented as of this encounter (statuses as of 01/29/2024) [facility]20[facility] History of Past illness Narrative* Problem Noted Date Diagnosed Date Resolved Date Calculus of gallbladder with acute on chronic cholecystitis without obstruction 06/04/20232022 Cough 02/16/2019 02/28/2020 Acute bacterial sinusitis 02/16/2019 Visit for screening mammogram 02/16/2019 02/28/2020 Myalgia 08/05/2018 02/28/2020 Uncontrolled type 2 diabetes mellitus without complication, without long-term current use of insulin 08/05/2018 02/28/2020 Right upper quadrant pain 08/05/2018 Chest pain 08/05/2018 02/28/2020 PONV (postoperative nausea and vomiting) 03/11/2018 02/28/2020 Pelvic mass 02/25/2018 08/24/2019 Overview: Added automatically from request for surgery [id number] Need for pneumococcal vaccination 12/26/2017 02/28/2020 Atrophic vaginitis 12/26/2017 0 Adjustment insomnia 12/26/2017 02/28/20 20 Yeast vaginitis 12/26/2017 02/28/2020 CKD (chronic kidney disease) 02/14/2016 02/28/2020 Right lower quadrant abdominal pain 08/03/2015 02/28/2020 Diverticulitis of large intestine 08/03/2015 02/28/2020 Bronchitis 09/15/2012 02/28/2020 Unspecified pruritic disorder 10/12/2010 02/28/2020 Disorder of bone and cartilage, unspecified 10/12/2010 02/28/2020 Routine general medical exam ination at a health care facility 03/16/2010 12/14/2014 Overview: 03/16/2010, from Dr. Padgett 02/26/2011, yearly check Routine gynecological examination 03/16/2010 12/14/2014 Overview: [facility] [place] Pruritus of genital organs 09/06/2008 0 03/16/2010 Other diseases of lung, not elsewhere classified 11/07/2005 02/28/2020 Hyperlipidemia 07/19/2005 02/28/2020 documented as of this encounter (statuses as of 01/30/2024) [facility] History of Past illness Narrative* Problem Noted Date Diagnosed Date Resolved Date Calculus of gallbladder with acute on chronic cholecystitis without obstruction 06/04/20232022 Cough 02/16/2019 02/28/2020 Acute bacterial sinusitis 02/16/2019 Visit for screening mammogram 02/16/2019 02/28/2020 Myalgia 08/05/2018 02/28/2020 Uncontrolled type 2 diabetes mellitus without complication, without long-term current use of insulin 08/05/2018 02/28/2020 Right upper quadrant pain 08/05/2018 Chest pain 08/05/2018 02/28/2020 PONV (postoperative nausea and vomiting) 03/11/2018 02/28/2020 Pelvic mass 02/25/2018 08/24/2019 Overview: Added automatically from request for surgery [id number] Need for pneumococcal vaccination 12/26/2017 02/28/2020 Atrophic vaginitis 12/26/2017 0 Adjustment insomnia 12/26/2017 02/28/20 20 Yeast vaginitis 12/26/2017 02/28/2020 CKD (chronic kidney disease) 02/14/2016 02/28/2020 Right lower quadrant abdominal pain 08/03/2015 02/28/2020 Diverticulitis of large intestine 08/03/2015 02/28/2020 Bronchitis 09/15/2012 02/28/2020 Unspecified pruritic disorder 10/12/2010 02/28/2020 Disorder of bone and cartilage, unspecified 10/12/2010 02/28/2020 Routine general medical exam ination at a health care facility 03/16/2010 12/14/2014 Overview: 03/16/2010, from Dr. Padgett 02/26/2011, yearly check Routine gynecological examination 03/16/2010 12/14/2014 Overview: [facility] [place] Pruritus of genital organs 09/06/2008 0 03/16/2010 Other diseases of lung, not elsewhere classified 11/07/2005 02/28/2020 Hyperlipidemia 07/19/2005 02/28/2020 documented as of this encounter (statuses as of 02/03/2024) [facility] History of Past illness Narrative* Problem Noted Date Diagnosed Date Resolved Date Calculus of gallbladder with acute on chronic cholecystitis without obstruction 06/04/20232022 Cough 02/16/2019 02/28/2020 Acute bacterial sinusitis 02/16/2019 Visit for screening mammogram 02/16/2019 02/28/2020 Myalgia 08/05/2018 02/28/2020 Uncontrolled type 2 diabetes mellitus without complication, without long-term current use of insulin 08/05/2018 02/28/2020 Right upper quadrant pain 08/05/2018 Chest pain 08/05/2018 02/28/2020 PONV (postoperative nausea and vomiting) 03/11/2018 02/28/2020 Pelvic mass 02/25/2018 08/24/2019 Overview: Added automatically from request for surgery [id number] Need for pneumococcal vaccination 12/26/2017 02/28/2020 Atrophic vaginitis 12/26/2017 0 Adjustment insomnia 12/26/2017 02/28/20 20 Yeast vaginitis 12/26/2017 02/28/2020 CKD (chronic kidney disease) 02/14/2016 02/28/2020 Right lower quadrant abdominal pain 08/03/2015 02/28/2020 Diverticulitis of large intestine 08/03/2015 02/28/2020 Bronchitis 09/15/2012 02/28/2020 Unspecified pruritic disorder 10/12/2010 02/28/2020 Disorder of bone and cartilage, unspecified 10/12/2010 02/28/2020 Routine general medical exam ination at a health care facility 03/16/2010 12/14/2014 Overview: 03/16/2010, from Dr. Padgett 02/26/2011, yearly check Routine gynecological examination 03/16/2010 12/14/2014 Overview: [facility] [place] Pruritus of genital organs 09/06/2008 0 03/16/2010 Other diseases of lung, not elsewhere classified 11/07/2005 02/28/2020 Hyperlipidemia 07/19/2005 02/28/2020 documented as of this encounter (statuses as of 02/20/2024) [facility]07-19-2023 History of Past illness Narrative* Problem Noted Date Diagnosed Date Resolved Date Calculus of gallbladder with acute on chronic cholecystitis without obstruction 06/04/20232022 Cough 02/16/2019 02/28/2020 Acute bacterial sinusitis 02/16/2019 Visit for screening mammogram 02/16/2019 02/28/2020 Myalgia 08/05/2018 02/28/2020 Uncontrolled type 2 diabetes mellitus without complication, without long-term current use of insulin 08/05/2018 02/28/2020 Right upper quadrant pain 08/05/2018 Chest pain 08/05/2018 02/28/2020 PONV (postoperative nausea and vomiting) 03/11/2018 02/28/2020 Pelvic mass 02/25/2018 08/24/2019 Overview: Added automatically from request for surgery [id number] Need for pneumococcal vaccination 12/26/2017 02/28/2020 Atrophic vaginitis 12/26/2017 0 Adjustment insomnia 12/26/2017 02/28/20 20 Yeast vaginitis 12/26/2017 02/28/2020 CKD (chronic kidney disease) 02/14/2016 02/28/2020 Right lower quadrant abdominal pain 08/03/2015 02/28/2020 Diverticulitis of large intestine 08/03/2015 02/28/2020 Bronchitis 09/15/2012 02/28/2020 Unspecified pruritic disorder 10/12/2010 02/28/2020 Disorder of bone and cartilage, unspecified 10/12/2010 02/28/2020 Routine general medical exam ination at a health care facility 03/16/2010 12/14/2014 Overview: 03/16/2010, from Dr. Padgett 02/26/2011, yearly check Routine gynecological examination 03/16/2010 12/14/2014 Overview: [facility] [place] Pruritus of genital organs 09/06/2008 0 03/16/2010 Other diseases of lung, not elsewhere classified 11/07/2005 02/28/2020 Hyperlipidemia 07/19/2005 02/28/2020 documented as of this encounter (statuses as of 02/23/2024) [facility]07-19-2023 History of Past illness Narrative* Problem Noted Date Diagnosed Date Resolved Date Calculus of gallbladder with acute on chronic cholecystitis without obstruction 06/04/20232022 Cough 02/16/2019 02/28/2020 Acute bacterial sinusitis 02/16/2019 Visit for screening mammogram 02/16/2019 02/28/2020 Myalgia 08/05/2018 02/28/2020 Uncontrolled type 2 diabetes mellitus without complication, without long-term current use of insulin 08/05/2018 02/28/2020 Right upper quadrant pain 08/05/2018 Chest pain 08/05/2018 02/28/2020 PONV (postoperative nausea and vomiting) 03/11/2018 02/28/2020 Pelvic mass 02/25/2018 08/24/2019 Overview: Added automatically from request for surgery [id number] Need for pneumococcal vaccination 12/26/2017 02/28/2020 Atrophic vaginitis 12/26/2017 0 Adjustment insomnia 12/26/2017 02/28/20 20 Yeast vaginitis 12/26/2017 02/28/2020 CKD (chronic kidney disease) 02/14/2016 02/28/2020 Right lower quadrant abdominal pain 08/03/2015 02/28/2020 Diverticulitis of large intestine 08/03/2015 02/28/2020 Bronchitis 09/15/2012 02/28/2020 Unspecified pruritic disorder 10/12/2010 02/28/2020 Disorder of bone and cartilage, unspecified 10/12/2010 02/28/2020 Routine general medical exam ination at a health care facility 03/16/2010 12/14/2014 Overview: 03/16/2010, from Dr. Padgett 02/26/2011, yearly check Routine gynecological examination 03/16/2010 12/14/2014 Overview: [facility] [place] Pruritus of genital organs 09/06/2008 0 03/16/2010 Other diseases of lung, not elsewhere classified 11/07/2005 02/28/2020 Hyperlipidemia 07/19/2005 02/28/2020 documented as of this encounter (statuses as of 02/27/2024) [facility]-19-2023 History of Past illness Narrative* Problem Noted Date Diagnosed Date Resolved Date Calculus of gallbladder with acute on chronic cholecystitis without obstruction 06/04/20232022 Cough 02/16/2019 02/28/2020 Acute bacterial sinusitis 02/16/2019 Visit for screening mammogram 02/16/2019 02/28/2020 Myalgia 08/05/2018 02/28/2020 Uncontrolled type 2 diabetes mellitus without complication, without long-term current use of insulin 08/05/2018 02/28/2020 Right upper quadrant pain 08/05/2018 Chest pain 08/05/2018 02/28/2020 PONV (postoperative nausea and vomiting) 03/11/2018 02/28/2020 Pelvic mass 02/25/2018 08/24/2019 Overview: Added automatically from request for surgery [id number] Need for pneumococcal vaccination 12/26/2017 02/28/2020 Atrophic vaginitis 12/26/2017 0 Adjustment insomnia 12/26/2017 02/28/20 20 Yeast vaginitis 12/26/2017 02/28/2020 CKD (chronic kidney disease) 02/14/2016 02/28/2020 Right lower quadrant abdominal pain 08/03/2015 02/28/2020 Diverticulitis of large intestine 08/03/2015 02/28/2020 Bronchitis 09/15/2012 02/28/2020 Unspecified pruritic disorder 10/12/2010 02/28/2020 Disorder of bone and cartilage, unspecified 10/12/2010 02/28/2020 Routine general medical exam ination at a health care facility 03/16/2010 12/14/2014 Overview: 03/16/2010, from Dr. Padgett 02/26/2011, yearly check Routine gynecological examination 03/16/2010 12/14/2014 Overview: [facility] [place] Pruritus of genital organs 09/06/2008 0 03/16/2010 Other diseases of lung, not elsewhere classified 11/07/2005 02/28/2020 Hyperlipidemia 07/19/2005 02/28/2020 documented as of this encounter (statuses as of 03/02/2024) [facility]-19-2023 History of Past illness Narrative* Problem Noted Date Diagnosed Date Resolved Date Calculus of gallbladder with acute on chronic cholecystitis without obstruction 06/04/20232022 Cough 02/16/2019 02/28/2020 Acute bacterial sinusitis 02/16/2019 Visit for screening mammogram 02/16/2019 02/28/2020 Myalgia 08/05/2018 02/28/2020 Uncontrolled type 2 diabetes mellitus without complication, without long-term current use of insulin 08/05/2018 02/28/2020 Right upper quadrant pain 08/05/2018 Chest pain 08/05/2018 02/28/2020 PONV (postoperative nausea and vomiting) 03/11/2018 02/28/2020 Pelvic mass 02/25/2018 08/24/2019 Overview: Added automatically from request for surgery [id number] Need for pneumococcal vaccination 12/26/2017 02/28/2020 Atrophic vaginitis 12/26/2017 0 Adjustment insomnia 12/26/2017 02/28/20 20 Yeast vaginitis 12/26/2017 02/28/2020 CKD (chronic kidney disease) 02/14/2016 02/28/2020 Right lower quadrant abdominal pain 08/03/2015 02/28/2020 Diverticulitis of large intestine 08/03/2015 02/28/2020 Bronchitis 09/15/2012 02/28/2020 Unspecified pruritic disorder 10/12/2010 02/28/2020 Disorder of bone and cartilage, unspecified 10/12/2010 02/28/2020 Routine general medical exam ination at a health care facility 03/16/2010 12/14/2014 Overview: 03/16/2010, from Dr. Padgett 02/26/2011, yearly check Routine gynecological examination 03/16/2010 12/14/2014 Overview: [facility] [place] Pruritus of genital organs 09/06/2008 0 03/16/2010 Other diseases of lung, not elsewhere classified 11/07/2005 02/28/2020 Hyperlipidemia 07/19/2005 02/28/2020 documented as of this encounter (statuses as of 03/02/2024) [facility]-19-2023 History of Past illness Narrative* Problem Noted Date Diagnosed Date Resolved Date Calculus of gallbladder with acute on chronic cholecystitis without obstruction 06/04/20232022 Cough 02/16/2019 02/28/2020 Acute bacterial sinusitis 02/16/2019 Visit for screening mammogram 02/16/2019 02/28/2020 Myalgia 08/05/2018 02/28/2020 Uncontrolled type 2 diabetes mellitus without complication, without long-term current use of insulin 08/05/2018 02/28/2020 Right upper quadrant pain 08/05/2018 Chest pain 08/05/2018 02/28/2020 PONV (postoperative nausea and vomiting) 03/11/2018 02/28/2020 Pelvic mass 02/25/2018 08/24/2019 Overview: Added automatically from request for surgery [id number] Need for pneumococcal vaccination 12/26/2017 02/28/2020 Atrophic vaginitis 12/26/2017 0 Adjustment insomnia 12/26/2017 02/28/20 20 Yeast vaginitis 12/26/2017 02/28/2020 CKD (chronic kidney disease) 02/14/2016 02/28/2020 Right lower quadrant abdominal pain 08/03/2015 02/28/2020 Diverticulitis of large intestine 08/03/2015 02/28/2020 Bronchitis 09/15/2012 02/28/2020 Unspecified pruritic disorder 10/12/2010 02/28/2020 Disorder of bone and cartilage, unspecified 10/12/2010 02/28/2020 Routine general medical exam ination at a health care facility 03/16/2010 12/14/2014 Overview: 03/16/2010, from Dr. Padgett 02/26/2011, yearly check Routine gynecological examination 03/16/2010 12/14/2014 Overview: [facility] [place] Pruritus of genital organs 09/06/2008 0 03/16/2010 Other diseases of lung, not elsewhere classified 11/07/2005 02/28/2020 Hyperlipidemia 07/19/2005 02/28/2020 documented as of this encounter (statuses as of 03/02/2024) [facility]-19-2023 History of Past illness Narrative* Problem Noted Date Diagnosed Date Resolved Date Calculus of gallbladder with acute on chronic cholecystitis without obstruction 06/04/20232022 Cough 02/16/2019 02/28/2020 Acute bacterial sinusitis 02/16/2019 Visit for screening mammogram 02/16/2019 02/28/2020 Myalgia 08/05/2018 02/28/2020 Uncontrolled type 2 diabetes mellitus without complication, without long-term current use of insulin 08/05/2018 02/28/2020 Right upper quadrant pain 08/05/2018 Chest pain 08/05/2018 02/28/2020 PONV (postoperative nausea and vomiting) 03/11/2018 02/28/2020 Pelvic mass 02/25/2018 08/24/2019 Overview: Added automatically from request for surgery [id number] Need for pneumococcal vaccination 12/26/2017 02/28/2020 Atrophic vaginitis 12/26/2017 0 Adjustment insomnia 12/26/2017 02/28/20 20 Yeast vaginitis 12/26/2017 02/28/2020 CKD (chronic kidney disease) 02/14/2016 02/28/2020 Right lower quadrant abdominal pain 08/03/2015 02/28/2020 Diverticulitis of large intestine 08/03/2015 02/28/2020 Bronchitis 09/15/2012 02/28/2020 Unspecified pruritic disorder 10/12/2010 02/28/2020 Disorder of bone and cartilage, unspecified 10/12/2010 02/28/2020 Routine general medical exam ination at a health care facility 03/16/2010 12/14/2014 Overview: 03/16/2010, from Dr. Padgett 02/26/2011, yearly check Routine gynecological examination 03/16/2010 12/14/2014 Overview: [facility] [place] Pruritus of genital organs 09/06/2008 0 03/16/2010 Other diseases of lung, not elsewhere classified 11/07/2005 02/28/2020 Hyperlipidemia 07/19/2005 02/28/2020 documented as of this encounter (statuses as of 03/05/2024) [facility]07-19-2023 NoteHNO ID: [id number] Author: Anita Shepherd AA Service: ? Author Type: Copra Processor Type: Anesthesia Procedure Notes Filed: 06/04/2023 8:42 AM Note Text: ANESTHESIOLOGY PROCEDURE NOTE Airway General Information Procedure Start Time/Medication Administration: 06/04/2023 8:41 AM Patient location during procedure: OR Timeout Performed Pre-procedure: timeout performed Consent Obtained: Yes Patient identity confirmed: arm band and patient Staffing CAA: Anita Shepherd AA Performed by: CAA and anesthesiologist Indications and Patient Condition Indications for airway management: anesthesia Preoxygenated: yes anesthesia circuit Patient position: sniffing Method: asleep Final Airway Details Final airway type: endotracheal airway Final Endotracheal Airway: ETT Cuffed: yes Successful intubation technique: direct laryngoscopy Endotracheal tube insertion site: oral Blade: Xiong Blade size: #2 ETT size (mm): 7.0 Measured from: teeth Measurement (cm): 21 Placement verified by: chest auscultation and capnometry Cormack-Lehane Classification: grade I - full view of glottis Number of attempts at approach: 1 SIGNATURE: HANY Massey PATIENT NAME: Angeli Ramirez Case DATE: June 04, 2023 TIME: 8:41 AM CSN: [id number] History and physical note * Tracie Lepe, RENITA.WARP DYEING TENDER - 05/21/2023 1:16 PM EDT Images from the original note were not included. HISTORY AND PHYSICAL EXAMINATION SERVICE DATE: 05/21/2023 SERVICE TIME: 1:12 PM PRIMARY CARE PHYSICIAN: Mariano Pearce DO REASON FOR VISIT: Angeli Ramirez Case is a 72 year old female who is scheduled for Procedure(s): LAPAROSCOPIC CHOLECYSTECTOMY WITH GRAMS (N/A) at the request of Dr. Rola Muro for consultation. My final recommendation will be communicated back to the requesting physician by way of shared medical record or letter. Subjective The patient has the following: ACTIVE PROBLEM LIST Allergic Rhinitis, Cause Unspecified Essential Hypertension, Benign Type 2 Diabetes Mellitus With Stage 3 Chronic Kidney Disease, With Long-Term Current Use of Insulin([facility]) Acquired Hypothyroidism Symptomatic Menopausal Or Female Climacteric States Gerd (Gastroesophageal Reflux Disease) Diverticulosis of Colon Kidney Stone Elevated Lfts Postmenopausal Atrophic Vaginitis Internal Hemorrhoids Without Mention of Complication Chronic Kidney Disease (Ckd) Stage G3a/A2, Moderately Decreased Glomerular Filtration Rate (Gfr) Between 45-59 Ml/Min/1.73 Square Meter and Albuminuria Creatinine Ratio Between 30-299 Mg/G ([facility]) Class 1 Obesity With Body Mass Index (Bmi) of 32.0 to 32.9 in Adult Dysuria Mixed Hyperlipidemia Ruq Abdominal Pain Gerd Without Esophagitis Pmr (Polymyalgia Rheumatica) ([facility]) Arthritis, Multiple Joint Involvement Hypertension Dyslipidemia Chronic Insomnia Rls (Restless Legs Syndrome) Gout Involving Toe of Right Foot Hypertensive Kidney Disease With Stage 3 Chronic Kidney Disease (Hcc) Type 2 Diabetes Mellitus, With Long-Term Current Use of Insulin (Hcc) Acquired Trigger Finger of Left Ring Finger Osteopenia, Senile Situational Anxiety Vitamin D Deficiency Fatigue Fatty Liver Medication Management COVID-19 Immunization Status Overdue - COVID-19 VACCINE (5 - Booster for Moderna series) Overdue since 01/07/2022 11/12/2021 Imm Admin: COVID-19 original vaccine, full dose, monovalent (MODERNA) 06/25/2021 Outside Immunization: *Moderna COVID Vaccine 02/12/2021 Imm Admin: COVID-19 original vaccine, full dose, monovalent (MODERNA) Only the first 3 history entries have been loaded, but more history exists. CHIEF COMPLAINT: Pre-op exam HPI: Angeli Ramirez Case is a 72 year old seen for PAC due to scheduled above surgery because of gallstones. 05/06/2023, Dr. Muro HPI: Angeli is a 72 year old female with a complaint of right upper quadrant pain. The patient has had symptoms of right upper quadrant pain for 2 months. The symptoms have maintained, over the past 2 months. The pain does radiate to the back. Food does aggravate her symptoms. Alleviating factors include: none. The patient was seen by her primary care physician. Angeli underwent an ultrasound. These tests demonstrated cholelithiasis. The patient is referred for evaluation and treatment. The patient is being seen by me today at the request of Dr. Mariano Pearce DO for my opinion and advice regarding Calculus of gallbladder with acute on chronic cholecystitis without obstruction (primary encounter diagnosis) Right upper quadrant pain. REVIEW OF SYSTEMS: General: No weight loss, malaise or fevers. Neurological: No history of TIA's, stroke, SINGLE ENDING MACHINE OPERATOR tumor, impaired sensorium, hemiplegia, paraplegia orquadraplegia. No neurological symptoms or problems. Respiratory: No history of current cough or dyspnea, or pneumonia in the past 6 weeks. No history of respiratory/pulmonary symptoms or problems. Cardiovascular: Positive for: hyperlipidemia and hypertension (on rx) Negative for: anticoagulation therapy, arrhythmia, atrial fibrillation, CAD, chest pain, CHF, congenital heart defect, DVT/PE, recent NE, murmur/valvular heart disease, open heart surgery and valve surgery. GI: See HPI. Positive for: GERD (on rx) and liver disease (fatty liver) Negative for: abdominal pain, dysphagia, hepatitis, irritable bowel syndrome, inflammatory bowel disease, nausea, pancreatitis, vomiting and ETOH >2 drinks/day. : Positive for: renal failure. Patient's renal failure is chronic. Negative for: urinary incontinence, nephrolithiasis and urinary tract infection. 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 Endocrine: Positive for: diabetes mellitus and hypothyroidism (on rx). Patient's diabetes mellitus is controlled by insulin. Hematology: No history of bleeding or clotting disorder. Patient is not taking anti-coagulation or platelet medications. No history of hematological symptoms or problems. Oncology: No history of CA metastasis, chemo within 30 days, or radiotherapy within 90 days. No history of oncological symptoms or problems. Psych: Positive for: anxiety (on rx) and depression (on rx). Musculoskeletal: +fibromyalgia +gout, on rx +PMR, on rx. Negative for joint pain or swelling, back pain or muscle pain. Skin: +psoriasis, on rx PAST MEDICAL HISTORY Diagnosis Date Advance care planning 04/23/2022 daughter Rebecca Case is medical POA per patient Allergic rhinitis, cause unspecified Allergic rhinitis Arthritis Benign hypertensive heart disease without heart failure BPPV (benign paroxysmal positional vertigo) Chronic kidney disease (CKD) stage G3a/A2, moderately decreased glomerular filtration rate (GFR) between 45-59 mL/min/1.73 square meter and albuminuria creatinine ratio between 30-299 mg/g (HCC) Diverticulitis Esophageal reflux Fatty liver Fatty liver Fibromyalgia Gastric polyp 07/04/2014 Dr. Spence, needs repeat EGD in 01/01 Gout right great toe Hernia of other specified sites of abdominal cavity without mention of obstruction or gangrene HIATAL Hypertension IBS (irritable bowel syndrome) Irritable bowel syndrome Leiomyoma of uterus Other and unspecified hyperlipidemia PONV (postoperative nausea and vomiting) 03/11/2018 Renal calculi Snoring Type II or unspecified type diabetes mellitus without mention of complication, not stated as uncontrolled Unspecified hemorrhoids without mention of complication Hemorrhoids Unspecified hypothyroidism PAST SURGICAL HISTORY Procedure Laterality Date APPENDECTOMY APPENDECTOMY COLONOSCOPY FLX DX W/COLLJ SPEC WHEN PFRMD 07/04/14 Colonoscopy, Dr. Spence ESOPHAGOGASTRODUODENOSCOPY TRANSORAL DIAGNOSTIC 07/04/14 EGD, Dr. Spence ESOPHAGOGASTRODUODENOSCOPY TRANSORAL DIAGNOSTIC 05/29/15 EGD LAPS ABD PRTM&OMENTUM DX W/WO SPEC BR/WA SPX 1989 Laparoscopy and scar tissue seen LIG/TRNSXJ FLP TUBE ABDL/VAG APPR UNI/BI Tubal ligation PAST SURGICAL HISTORY OF CARPEL TUNNEL/BILATERAL PAST SURGICAL HISTORY OF 1969 exploratory lap and left salpingectomy for bad infection POLYPECTOMY SNARE STIFF WIRE 07/04/14 gastric TONSILLECTOMY HX TONSILLECTOMY PRIMARY/SECONDARY <AGE 13 Tonsillectomy VAGINAL HYSTERECTOMY VAGINAL HYSTERECTOMY UTERUS 250 GM/< 03/2018 Hysterectomy, vaginal FAMILY HISTORY Problem Relation Age of Onset Hypertension Mother other (DEMENTIA) Mother onset in her 70's Tremor Mother ? Parkinson's Diabetes Father Hypertension Father Lipids Father Anesthesia Problems Sister at 19 yo cardiac arrest during appendectomy, did not survive, 1960' Cancer Maternal Grandmother gallbladder Social History Tobacco Use Smoking status: Never Smokeless tobacco: Never Vaping Use Vaping Use: Never used Substance Use Topics Alcohol use: No Drug use: No Prior to Admission medications as of 05/21/23 1320 Medication Sig Last Dose Taking Triamcinolone Acetonide 0.05 % oint Apply to affected area. Taking Yes insulin lispro (HUMALOG KWIKPEN INSULIN) 100 unit/mL Inject 12 units with breakfast, 16 units with lunch, and 14 units with dinner + sliding scale insulin (1 unit for every 50 >150 pts). Gets through [facility]. Taking Yes Blood-Glucose Meter Use to check blood sugar daily Taking Yes blood sugar diagnostic (BLOOD GLUCOSE TEST) test strip Use to check blood sugar four times daily Taking Yes Lancets lancets Use to check blood sugar four times daily Taking Yes citalopram (CELEXA) 20 mg tablet TAKE 1 TABLET DAILY Taking Yes omega-3 DHA-EPA (FISH OIL) 1,200 (144-216) mg capsule Take 1 capsule by mouth once daily. Taking Yes metoprolol tartrate, short acting, (LOPRESSOR) 100 mg tablet TAKE 1 TABLET TWICE A DAY Taking Yes insulin glargine (LANTUS SOLOSTAR, BASAGLAR KWIKPEN) 100 unit/mL (3 mL) Inject 52 units SQ in the AM and 52 units SQ in the evening. Basaglar - through 3 Four 5 Group [employer]. Taking Yes Insulin [place], Disposable, (BD ULTRA-FINE PATRICIO PEN NEEDLE) 32 gauge x Use 4 pen needles daily with Basaglar and Humalog Taking Yes rosuvastatin (CRESTOR) 5 mg tablet take 1 tablet by mouth at bedtime Taking Yes enalapril (VASOTEC) 20 mg tablet Take 1 tablet by mouth twice daily. Taking Yes levothyroxine (SYNTHROID) 112 mcg tablet Take 1 tablet by mouth PO daily in AM. For thyroid. TakingYes ezetimibe (ZETIA) 10 mg tablet Take 1 tablet by mouth once daily. For cholesterol Taking Yes omeprazole (PRILOSEC) 40 mg capsule TAKE 1 CAPSULE DAILY Taking Yes flash glucose scanning reader (LivescribeSTYLE BETSEY 14 DAY READER) Use to check blood sugar as directed.Taking Yes colchicine (COLCRYS) 0.6 mg tablet Take 1 tablet by mouth twice daily. For acute gout flare up Taking Yes apremilast (OTEZLA) 30 mg tablet Take 30 mg by mouth once daily. Taking Yes flash glucose sensor (LivescribeSTYLE BETSEY 14 DAY SENSOR) kit Apply sensor to back of arm to check bloodsugars as directed. Change sensor every 2 weeks and rotate arms. Taking Yes acetaminophen (TYLENOL) 325 mg tablet Take 2 tablets by mouth every 6 hours as needed for Pain. Taking Yes cholecalciferol (VITAMIN D3) 50 mcg (2,000 unit) tablet Take one tablet by mouth once daily Friday through Friday. Taking Yes No medication comments found. ALLERGIES Allergen Reactions Crestor [Rosuvastat* Other: See Comments Legs achy Niacin Itching Erythromycin GI Upset Iodine Rash Latex reddness Lescol [Fluvastatin* GI Upset Lipitor [Atorvastat* Intolerance Muscle aching Naprosyn [Naproxen] uncertain Pravastatin Myalgia Arm pain Agjwgoy-[id number]-[id number] Red* Intolerance Sulfa (Sulfonamide * Hives Trulicity [Dulaglut* GI Upset Vomiting, diarrhea Hospitalized Vibramycin [Doxycyc* GI Upset Vioxx [Rofecoxib] Swelling Zocor [Simvastatin] uncertain Objective PHYSICAL EXAM: General: alert and oriented (x3), healthy appearance and obese. Pertinent negatives noted - not distressed. Skin: normal color, no rash or lesions. HEENT: EOM intact and pupils equal round. Pertinent negatives noted - no carotid bruit. Cardiovascular: regular rate and rhythm, normal S1 and S2, no rub, murmurs, or gallop. Respiratory: normal breath sounds, no wheezes or crackles. No chest wall deformity or tenderness. Abdomen: soft. Pertinent negatives noted - not tender. Extremities: no deformity, no edema or tenderness, no joint swelling or clubbing. Neurological: normal cognition and motor skills. Gait normal. No weakness or sensory deficit. PAIN ASSESSMENT: Pain Pain Level: 7 Pain Location: Abdomen Description: Radiating Duration Amount of Time: 4 Duration Units: Months Frequency: Intermittent Intervention/Comfort measure: Medication VITALS: BP 118/70 Pulse 69 Temp (Src) 98.4 (Temporal) Resp 16 Ht 5' 2 (1.58m) Wt 170 lb (77.1kg) SpO2 94% BMI 31.09 kg/(m^2). Diagnostic tests reviewed for today's visit: Lab Value Units Date High Low HB 11.8 g/dL 05/21/2023 15.5 11.5 HCT 37.4 % 05/21/2023 46.0 36.0 WBC 9.78 k/uL 05/21/2023 11.00 3.70 PLT 160 k/uL 05/21/2023 400 150 NA 138 mmol/L 05/21/2023 144 136 K 4.9 mmol/L 05/21/2023 5.1 3.7 GLUC 139 mg/dL 05/21/2023 99 74 BUN 16 mg/dL 05/21/2023 21 7 CREAT 1.01 mg/dL 05/21/2023 0.96 0.58 PTSEC No results within date range. INR No results within date range. APTT No results within date range. ALT 37 U/L 05/21/2023 38 7 AST 46 U/L 05/21/2023 35 13 TBILI 0.4 mg/dL 05/21/2023 1.3 0.2 TSH 0.246 mIU/L 04/23/2023 4.200 0.270 Lab Value Units Date High Low HCGQT No results within date range. UHCG No results within date range. HCG, BODY* No results within date range. Lab Value Units Date High Low ABORHD No results within date range. ABSCREEN No results within date range. Hemoglobin A1C (%) Date Value 04/23/2023 7.6 01/23/2023 8.1 10/25/2022 8.2 07/26/2022 10.1 04/18/2022 9.2 06/01/2021 7.9 02/27/2021 8.5 11/03/2020 8.0 08/03/2020 8.2 04/06/2020 7.8 Recent Results (from the past 8760 hour(s)) ECG COMPLETE Collection Time: 01/28/23 12:54 PM Result Value Ventricular Rate 66 Atrial Rate 66 P-R Interval 190 QRS Duration 78 QT Interval 442 QTC Calculation (Bazett) 463 Calculated P [employer] 12 Calculated R [employer] 10 Calculated T [employer] 46 Impression NORMAL SINUS RHYTHM NONSPECIFIC T WAVE ABNORMALITY ABNORMAL ECG Confirmed by DANYA SHELDON DO ([id number]) on 02/04/2023 2:31:21 PM Recent Results (from the past 02288 hour(s)) ECHO Collection Time: 02/06/23 2:21 PM Impression CONCLUSIONS: - Exam indication: Syncope - The left ventricle is small. There is mild concentric left ventricular hypertrophy. Left ventricular systolic function is normal. EF = 67 5% (2D biplane) Grade I left ventricular diastolic dysfunction. - The right ventricle is normal in size. Right ventricular systolic function is normal. - There are no significant valvular abnormalities. - Exam was compared with the prior echocardiographic exam performed on 09/06/2013, no significant change. * * * Final * * * Assessment Patient has the following medical conditions which may affect lucinda-operative course: Type 2 diabetes mellitus, with long-term current use of insulin (HCC) Assessment: IDDM Hemoglobin A1C (%) Date Value 04/23/2023 7.6 06/01/2021 7.9 Class 1 obesity with body mass index (BMI) of 32.0 to 32.9 in adult Assessment: Body mass index is 31.09 kg/m . Fatty liver Assessment: hx Albumin (g/dL) Date Value 05/21/2023 4.1 Bilirubin, Total (mg/dL) Date Value 05/21/2023 0.4 Alkaline Phosphatase (U/L) Date Value 05/21/2023 142 (H) AST (U/L) Date Value 05/21/2023 46 (H) ALT (U/L) Date Value 05/21/2023 37 Protein, Total (g/dL) Date Value 05/21/2023 7.0 \ Situational anxiety Assessment: and depression, stable on rx per pt Gout involving toe of right foot Assessment: on rx Hypertensive kidney disease with stage 3 chronic kidney disease (HCC) Assessment: controlled on rx Last 14 BP Last 14 Encounter BP Readings: Date: BP: 05/21/2023 118/70 05/06/2023 140/90 04/16/2023 124/78 04/07/2023 128/76 02/11/2023 130/80 01/28/2023 136/80 10/30/2022 136/88 07/29/2022 130/80 04/23/2022 120/70 12/24/2021 128/64 12/10/2021 136/82 09/12/2021 136/74 08/30/2021 126/59 08/20/2021 142/88 Creatinine Date Value Ref Range Status 05/21/2023 1.01 (H) 0.58 - 0.96 mg/dL Final 01/23/2023 1.00 (H) 0.58 - 0.96 mg/dL Final 07/26/2022 1.07 (H) 0.58 - 0.96 mg/dL Final 04/18/2022 1.04 (H) 0.58 - 0.96 mg/dL Final RLS (restless legs syndrome) Assessment: controlled on rx Dyslipidemia Assessment: c/w statin GERD without esophagitis Assessment: controlled on rx PMR (polymyalgia rheumatica) ([facility]) Assessment: on rx Chronic kidney disease (CKD) stage G3a/A2, moderately decreased glomerular filtration rate (GFR) between 45-59 mL/min/1.73 square meter and albuminuria creatinine ratio between 30-299 mg/g Assessment: Creatinine Date Value Ref Range Status 05/21/2023 1.01 (H) 0.58 - 0.96 mg/dL Final 01/23/2023 1.00 (H) 0.58 - 0.96 mg/dL Final 07/26/2022 1.07 (H) 0.58 - 0.96 mg/dL Final 04/18/2022 1.04 (H) 0.58 - 0.96 mg/dL Final Kimbrough Activity Status Index: METS: Climb a flight of stairs or walk up a hill (5.50 METs) DASI Score: 5.5 Patient denies any chest pain or undue shortness of breath with the above physical activity. Clinical Frailty Scale: 3. Well, with treated comorbid disease STOP-Bang Score: Snores loudly Often feels tired, fatigued, or sleepy during the daytime Has been observed to stop breathing or choking/gasping during sleep Has a large neck Denies having high blood pressure BMI less than or equal to 35 kg/m^2 Patient 50 years old or younger Non-male patient STOP-Bang Score: 4 [id number] Score: Age: 65-74 Sex: female CHF history: No Hypertension history: Yes Stroke/TIA/thromboembolism history: No Vascular disease history: No Diabetes history: Yes [id number] Score: 4 ARISCAT Score: Age: 51-80 Preoperative SpO2: 91-95% Respiratory infection in the last month: No Preoperative anemia: No Surgical incision: upper abdominal Duration of surgery: <2 hrs Emergency procedure: No ARISCAT Score: 26 ASA Class: 3 ANESTHESIA FINDINGS: Intubation History: No history of difficult intubation Significant Anesthesia Considerations: none Airway History: No history of difficult airway I - PHYSICAL EVALUATION AIRWAY Patient intubated: No. Tracheostomy tube not present Mallampati: II. TM distance: >3 FB. Neck ROM: full ROM without neurological symptoms. Mouth opening: adequate. Short neck: no. Thick neck: yes Carranza present: no Lip Bite Test: II Microretrognathia/Micronagthia/Recessed Chin: No DENTAL Dental findings: teeth intact. II - ANESTHESIA PLAN ASA Score: 3 Anesthetic Plan: other Anesthetic plan additional comments: *PACC/TCI - anesthesia choice. Beta Pola Monitoring Plan Post Procedure Analgesic Plan Informed Consent Anesthetic risks, benefits, alternatives, personnel and consent discussed: yes. Patient / Responsible Green Party agrees to proceed: yes Patient / Surrogate agrees to blood products: blood products not planned Discussed the possibility of lip / dental damage: yes Prepared for Surgery: optimally prepared for surgery, pending [see comment]. labs CONSULTS: Patient does not require consults for optimization at this time Planned Anesthetic: other anesthesia choice The Following Tests/Procedures Have Been Initiated: Orders Placed This Encounter >CBC + AUTO DIFF Standing Status: Future Number of Occurrences: 1 Standing Expiration Date: 07/21/2023 >CMP Standing Status: Future Number of Occurrences: 1 Standing Expiration Date: 07/21/2023 Triamcinolone Acetonide 0.05 % oint Sig: Apply to affected area. Instructions Given to Patient: Instructions located in the after visit summary. Patient given verbal and written preop instructions and voices comprehension and compliance. SIGNATURE: Tracie Lepe APRN.CNP PATIENT NAME: Angeli Ramirez Case DATE: May 21, 2023 TIME: 1:16 PM PAGER/CONTACT #: documented in this encounterRegency [facility]-2023 Instructions* Patient Instructions* Tracie Lepe APRN.CNP - 05/21/2023 1:15 PM EDT PATIENT PREOPERATIVE INSTRUCTIONS Rola Muro MD has scheduled you for your procedure at this surgery center: [facility]: [phone] -- [address] [address]. Please read below carefully for your personalized instructions. Dietary Restrictions: - No solid food after midnight. - You may have 12 ounces of clear liquids (water, clear juices such as apple juice or gatorade, carbonated beverages, clear tea, black coffee, jello) until 2 hours before scheduled arrival at facility. No red/purple coloring and no creamer/sugar Medications: Unless instructed differently below, stay on all of your medications until your surgery. Approved medications to take the morning of surgery with a sip of water: citalopram (CELEXA), ezetimibe (ZETIA), levothyroxine (SYNTHROID, metoprolol tartrate, (LOPRESSOR), omeprazole (PRILOSEC), rosuvastatin (CRESTOR) Do not take Enlapril the morning and/or evening prior surgery - No diabetic medication the morning of surgery. - Accucheck day of surgery. - Take full dose of insulin the day before surgery. - Take half dose of long acting insulin (Lantus, NPH) the day of surgery. If you start any new medications after today's visit, please contact the surgeon's office. Blood Thinning Medications: - Stop NSAIDS (Ibuprofen, Advil, Aleve, Motrin, Celebrex, Mobic, etc.) 7 days before surgery, as directed by your surgeon. - Stop Aspirin 7 days before surgery, as directed by your surgeon. - Stop Vitamin E, ALL multi-vitamins, herbals and dietary supplements 7 days before surgery. - You may take Tylenol (Acetaminophen) or any of your pain medications that do not contain aspirin or NSAIDS as needed. Important Reminders: - Candy, mints, and tobacco products are NOT permitted the morning of surgery. - Hearing aids, dentures and glasses may be worn the morning of surgery. - NO jewelry, body piercings, makeup, hairpins or contacts are to be worn the day of surgery. If you develop symptoms such as a fever, cold, or flu, or have other changes to your health within TWO DAYS of scheduled surgery or the morning of surgery, please contact the surgery center above. Personal Belongings: -Please have photo ID and insurance cards. -If you do not have a copy of advance directives on file with us, please bring a copy with you on the day of surgery. - Leave ALL valuables and money at home or with family members. For Outpatient Procedures: - YOU MUST HAVE A RESPONSIBLE RESIDENTIAL NURSE TAKE YOU HOME. A JAVA USER INTERFACE DEVELOPER OR NET ARCHITECT CANNOT BE MADE A RESPONSIBLE RESIDENTIAL NURSE. - We recommend that a responsible person stays with you overnight to take care of you. - You cannot stay in a hotel alone after outpatient surgery. You will not be permitted to have yoursurgery, if you do not have someone to take care of you. Arrival Time for Surgery: - The Surgery Center or hospital where you are having surgery will call the afternoon before surgery (or Friday for Friday surgery) with a scheduled arrival time. - If you have not heard by 4 pm, please contact the surgery center above. Please be aware that emergency situations arise, which may delay or change your surgical time. If this happens, we will notify you as soon as possible and regret any inconvenience. If you already have an Advance Directive, please fax a copy to [phone] or email to for it to be added to your chart. If you do not have an Advance Directive, you can find the appropriate form and more information at [email or web address]. We recommend that youcomplete the Advance Directive form found on the website and bring it with you the day of your surgery. It can be witnessed and scanned into your chart that day. Tracie Lepe APRN.WARP DYEING TENDER documented in this encounterRegency [facility]06-19-2023 Miscellaneous Notes* Telephone Encounter - Laurence Cha LPN - 05/05/2023 11:00 AM EDT Images from the original note were not included. Luci Waterman [facility] General Surgery Pool; Vanessa Gary PA-C 12 minutes ago (10:45 AM) BH Please inform patient of results below. Patient scheduled 07/04/2023. Please advise of patient is to come in sooner? Note patient did deny sooner dates at other locations Kera Called and updated patient, and scheduled to see Dr Muro tomorrow 05/06/23. Patient to discuss trying to move up Endoscopy appointment to sooner date after visit tomorrow. * Telephone Encounter - Vanessa Gary PA-C - 05/05/2023 10:33 AM EDT Please let her know the stool tests were negative for infectious source of diarrhea, but were positive for lactoferrin which can be a sign of possible inflammation in the bowels-this should be further evaluated with endoscopy, for which she is already scheduled. Will forward message to maintenance scheduler see if this can be moved up earlier. Her right upper quadrant imaging did show gallstones, so would like to have her see one of the surgeons for a consult as well. Please facilitate appointment * Telephone Encounter - Laurence Cha LPN - 05/05/2023 10:08 AM EDT Patient called in inquiring about Stool test results and and ultrasound. States is still having diarrhea. Last office visit was 04/16/23. Patient is scheduled for a colonoscopy in July. Patient asking what is the next step, and can patient do anything for the diarrhea? Please review and advise. Thank you. Opal# [phone] Laurence Cha LPN documented in this encounterRegency Hospital [facility]06-19-2023 Miscellaneous Notes* Telephone Encounter - Vanessa Gary PA-C - 05/05/2023 10:37 AM EDT Message forwarded to maintenance scheduler in separate phone encounter from same date to see if patient endoscopy procedures can be moved up earlier. Per previous scheduling notes, patient was actually offered and declined earlier date previously but had declined due to requesting specific location. Will also have patient to surgeon for cholecystectomy consult d/t finding of gallstones on imaging. * Telephone Encounter - Vanessa Wyatt RN - 05/05/2023 10:04 AM EDT Pt called in and reports she had stool testing and a gall bladder US done several weeks ago and hasn't had a call back. I let her know her c. Diff, enteric, and cryptosporidium and giardia stool testwere all negative.. I told her the lactoferrin/leukocytes showed: Positive for lactoferrin, which may indicate presence of fecal white blood cells US of abd spleen/abd RUQ: IMPRESSION: 1. Hepatic steatosis. 2. Cholelithiasis. 3. Borderline splenomegaly. I let her know since surgery ordered those labs they should be the one going over them with her. Ptwas sent over to surgery nurses. Pt states she has had diarrhea for x2 month and she can't get in for colonoscopy until July. Pt was told she would need to go to the ER for dehydration for IV hydration. I told her to have them call her back about this, since this is what the consult was for and see if they could order something for her. Please call and advise. documented in this encounterRegency [facility]06-08-2023 Miscellaneous Notes* Telephone Encounter - Mattwilma Webergo, [facility] - 04/24/2023 9:27 AM EDT Called patient, informed her that A1c is at goal. Congratulated patient and encouraged her to keep up the good work. Patient pleased with results and appreciated the call. Matt Arnold PharmD, [facility] Primary Care Clinical Pharmacist documented in this encounterRegency Hospital [facility]06-07-2023 History of Present illness Narrative* Cici Napier RDMS - 04/23/2023 8:30 AM EDT Radiology Service Progress Note PATIENT NAME: Angeli Rees DATE OF SERVICE: April 23, 2023 TIME: 9:53 AM PATIENT IDENTITY VERIFICATION COMPLETED USING TWO (2) IDENTIFIERS: Name and Date of confirmedby patient verbally. FALL SCREENING: Has the patient had 2 falls in the last year or 1 fall with injury or currently using an Ambulatory Assistive Device (Walker, Cane, Wheelchair, Crutches, etc.)? No PATIENT GENDER DATA: Female. status: : No status: NO. PATIENT RELEVANT IMPLANT DATA REVIEWED: Not Applicable RADIOLOGY DEPARTMENT: Ultrasound PERIPHERAL IV DATA: Not applicable SIGNED BY: Cici Napier RDMS RVT April 23, 2023 9:53 AM documented in this encounterRegency Hospital [facility]05-31-2023 History of Present illness Narrative* Vanessa Gary PA-C - 04/16/2023 1:36 PM EDT HISTORY AND PHYSICAL Angeli Ramirez Case 1950 REFERRING PHYSICIAN: Rocío Nunez APRN.* CHIEF COMPLAINT: Consult (diarrhea) HPI: The patient is a 72 year old female referred for endoscopy. Angeli notes multiple abdominal complaints. Patient complains of watery diarrhea up to 10 x/day and urgency of BMs after eating, regardless of food type. Denies recent travel, diet or medication changes, or sick contacts. Patient also notes complaints of upper abdominal pain, worse on the right side, as well as bloatingand upper abdomen feeling firm. Reports that multiple family members have required cholecystectomy. Angeli has undergone prior endoscopy. Has a history of gastric polyps. Last colonoscopy in 2013 wasnormal. Medical history significant for diabetes mellitus, allergies, CKD, hypertension, IBS, hypothyroidism. Patient was recently evaluated in primary care for her abdominal complaints, notes reviewed. She was referred to general surgery for further evaluation. Has not had laboratory studies or imaging performed. PAST MEDICAL HISTORY Diagnosis Date Advance care planning 04/23/2022 daughter Rebecca Case is medical POA per patient Allergic rhinitis, cause unspecified Allergic rhinitis Arthritis Benign hypertensive heart disease without heart failure BPPV (benign paroxysmal positional vertigo) Chronic kidney disease (CKD) stage G3a/A2, moderately decreased glomerular filtration rate (GFR) between 45-59 mL/min/1.73 square meter and albuminuria creatinine ratio between 30-299 mg/g (HCC) Diverticulitis Esophageal reflux Fatty liver Fatty liver Fibromyalgia Gastric polyp 07/04/2014 Dr. Spence, needs repeat EGD in 01/01 Gout right great toe Hernia of other specified sites of abdominal cavity without mention of obstruction or gangrene HIATAL Hypertension IBS (irritable bowel syndrome) Irritable bowel syndrome Leiomyoma of uterus Other and unspecified hyperlipidemia PONV (postoperative nausea and vomiting) 03/11/2018 Renal calculi Snoring Type II or unspecified type diabetes mellitus without mention of complication, not stated as uncontrolled Unspecified hemorrhoids without mention of complication Hemorrhoids Unspecified hypothyroidism PAST SURGICAL HISTORY Procedure Laterality Date APPENDECTOMY APPENDECTOMY COLONOSCOPY FLX DX W/COLLJ SPEC WHEN PFRMD 07/04/14 Colonoscopy, Dr. Spence ESOPHAGOGASTRODUODENOSCOPY TRANSORAL DIAGNOSTIC 07/04/14 EGD, Dr. Spence ESOPHAGOGASTRODUODENOSCOPY TRANSORAL DIAGNOSTIC 05/29/15 EGD LAPS ABD PRTM&OMENTUM DX W/WO SPEC BR/WA SPX 1989 Laparoscopy and scar tissue seen LIG/TRNSXJ FLP TUBE ABDL/VAG APPR UNI/BI Tubal ligation PAST SURGICAL HISTORY OF CARPEL TUNNEL/BILATERAL PAST SURGICAL HISTORY OF 1969 exploratory lap and left salpingectomy for bad infection POLYPECTOMY SNARE STIFF WIRE 07/04/14 gastric TONSILLECTOMY HX TONSILLECTOMY PRIMARY/SECONDARY <AGE 12 Tonsillectomy VAGINAL HYSTERECTOMY VAGINAL HYSTERECTOMY UTERUS 250 GM/< 03/2018 Hysterectomy, vaginal Current Outpatient Medications Medication Sig insulin lispro (HUMALOG KWIKPEN INSULIN) 100 unit/mL Inject 12 units with breakfast, 16 units with lunch, and 14 units with dinner + sliding scale insulin (1 unit for every 50 >150 pts). Gets through [employer]. Blood-Glucose Meter Use to check blood sugar daily blood sugar diagnostic (BLOOD GLUCOSE TEST) test strip Use to check blood sugar four times daily citalopram (CELEXA) 20 mg tablet TAKE 1 TABLET DAILY omega-3 DHA-EPA (FISH OIL) 1,200 (144-216) mg capsule Take 1 capsule by mouth once daily. LORazepam (ATIVAN) 2 mg tab Take 2 mg by mouth at bedtime as needed. metoprolol tartrate, short acting, (LOPRESSOR) 100 mg tablet TAKE 1 TABLET TWICE A DAY insulin glargine (LANTUS SOLOSTAR, BASAGLAR KWIKPEN) 100 unit/mL (3 mL) Inject 52 units SQ in the AM and 52 units SQ in the evening. Basaglar - through [employer]. Insulin [place], Disposable, (BD ULTRA-FINE PATRICIO PEN NEEDLE) 32 gauge x /32 Use 4 pen needles daily with Basaglar and Humalog rosuvastatin (CRESTOR) 5 mg tablet take 1 tablet by mouth at bedtime enalapril (VASOTEC) 20 mg tablet Take 1 tablet by mouth twice daily. levothyroxine (SYNTHROID) 112 mcg tablet Take 1 tablet by mouth PO daily in AM. For thyroid. ezetimibe (ZETIA) 10 mg tablet Take 1 tablet by mouth once daily. For cholesterol omeprazole (PRILOSEC) 40 mg capsule TAKE 1 CAPSULE DAILY flash glucose scanning reader (LivescribeSTYLE BETSEY 14 DAY READER) Use to check blood sugar as directed. colchicine (COLCRYS) 0.6 mg tablet Take 1 tablet by mouth twice daily. For acute gout flare up apremilast (OTEZLA) 30 mg tablet Take 30 mg by mouth once daily. flash glucose sensor (FREESTYLE BETSEY 14 DAY SENSOR) kit Apply sensor to back of arm to check bloodsugars as directed. Change sensor every 2 weeks and rotate arms. acetaminophen (TYLENOL) 325 mg tablet Take 2 tablets by mouth every 6 hours as needed for Pain. cholecalciferol (VITAMIN D3) 50 mcg (2,000 unit) tablet Take one tablet by mouth once daily Friday through Friday. Lancets lancets Use to check blood sugar four times daily Current Facility-Administered Medications Medication Dose Route Frequency perflutren lipid microspheres 1.3 mL in NaCl (PF) 0.9% 10 mL injection (DEFINITY) INTRAVENOUS DIRECTED PRN sodium chloride 0.9 % (flush) 10 mL (BD POSIFLUSH) 10 mL INTRAVENOUS DIRECTED PRN ALLERGIES: Crestor [Rosuvastatin Calcium], Niacin, Erythromycin, Iodine, Latex, Lescol [FluvastatinSodium], Lipitor [Atorvastatin Calcium], Naprosyn [Naproxen], Pravastatin, Lgpddiw-Siw-Lsp Reductase Inhibitors, Sulfa (Sulfonamide Antibiotics), Trulicity [Dulaglutide], Vibramycin [Doxycycline Calcium], Vioxx [Rofecoxib], and Zocor [Simvastatin] PERSONAL HISTORY: Social History Tobacco Use Smoking status: Never Smokeless tobacco: Never Vaping Use Vaping Use: Never used Substance Use Topics Alcohol use: No Drug use: No FAMILY HISTORY: FAMILY HISTORY Problem Relation Age of Onset Diabetes Father Hypertension Father Lipids Father Hypertension Mother other (DEMENTIA) Mother onset in her 70's Tremor Mother ? Parkinson's Cancer Maternal Grandmother gallbladder REVIEW OF SYMPTOMS: The review of systems data was entered by the nurse and reviewed by nd Nursing Notes: Nasrin Whitney RN 04/16/2023 1:31 PM Signed REVIEW OF SYSTEMS: General: The patient NOTES fatigue, denies weight loss, denies weight gain, denies feeling hot, anddenies feelings of cold. Eyes: The patient denies glaucoma, denies eye injury/surgery, does not wear glasses or contacts. Ear/Nose/Throat: The patient NOTES allergies, denies hayfever, denies ear infections, and denies bloody noses. Cardiovascular: The patient denies chest pain, denies heart disease, NOTES high blood pressure,denies cardiac stent, denies prior heart attack, denies irregular heart beat, NOTES high cholesterol, denies poor circulation, denies heart failure, other cardiac issues, denies claudication, denies cold feet, denies peripheral arterial stent. Respiratory: The patient denies tuberculosis, denies pneumonia, denies frequent cough, denies pulmonary embolism, denies shortness of breath, and denies coughing up blood. Gastrointestinal: The patient denies difficulty swallowing, NOTES acid reflux, denies ulcers, denies vomiting, denies jaundice/hepatitis, denies gallbladder problems, denies black or tarry stools, NOTES hemorrhoids, NOTES bleeding from rectum, NOTES diverticulitis, NOTES constipation, NOTES diarrhea, denies loss of stool control, and NOTES hernias. Kidney/Bladder: The patient NOTES kidney stones, denies urine infections, and denies bloody urine. Skin: The patient denies a history of skin cancer, denies bleeding/changing moles, and denies a history of skin rash. Neurologic: The patient denies a history of epilepsy/convulsions, NOTES headaches, denies head/spinal injuries, and denies stroke/TIA. Psychiatric: The patient denies psychiatric medications, denies depression, and denies voices, denies substance abuse. Endocrine: The patient NOTES thyroid disorders, NOTES diabetes, and denies hormonal problems. Hematologic: The patient denies a history of bruising, denies bleeding, and denies anemia, denies blood clots. Infections: The patient NOTES a history of measles and mumps, denies rheumatic fever, and denies sexually transmitted diseases. Musculoskeletal: The patient denies back pain/injury, denies back problems, denies sciatica, deniesknee/foot trouble, NOTES arthritis, or NOTES gout. When was patient's last Mammogram screening? 2021 Last Colonoscopy: 2013 Nasrin Whitney RN I have confirmed and edited as necessary, the PFSH and ROS obtained by others. Vanessa Gary PA-C PHYSICAL EXAMINATION: General: The patient is 72 year old female, well nourished, well hydrated in no acute distress. Thepatient is oriented to time, place, and person. VITALS: Blood pressure 124/78, pulse 71, temperature 36.5 C (97.7 F), height 157.5 cm (5' 2), weight 78.1 kg (172 lb 3.2 oz), SpO2 100 %. Body mass index is 31.5 kg/m . HEENT: Normal cephalic, ataumatic, pupils are equally round, sclera are anicteric, mucous membranesare moist, oropharynx is clear. Neck has no masses, asymmetry or lymphadenopathy. Respiratory: Clear to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 Medications: Amlodipine 5 mg daily (Patient reports not using) Enalapril 20 mg BID Metoprolol tartrate 100 mg BID GLYCEMIC CONTROL: Glucometer present at visit: Yes Preventative Medications: On STEPHANIA/ARB: Yes On Statin: Yes ROS: Patient denies CP, SOB, FREEDMAN, blurred vision, dizziness or lightheadedness Patient denies symptoms of hypoglycemia (sweating, anxiety, palpitations, hunger, and tremor) Patient denies symptoms of hyperglycemia (polyuria, polydipsia, polyphagia) Patient denies potential medication adverse effects DIET/EXERCISE/SOCIAL Hx: Snacks: Discussed the effect of eating sugary snacks before bed -- patient reports eating chocolatebefore bed and experiencing hyperglycemia MEDICATIONS: Pill bottles are present Adherence: denies missed doses [facility] Rx coverage: Medicare Part D ([employer]) Affordability: no issues, gets insulins through [employer] [facility] Diabetes supplies: [facility] Organization System: pill box ACTIVE PROBLEM LIST Allergic Rhinitis, Cause Unspecified Essential Hypertension, Benign Type 2 Diabetes Mellitus With Stage 3 Chronic Kidney Disease, With Long-Term Current Use of Insulin(Hcc) Acquired Hypothyroidism Symptomatic Menopausal Or Female Climacteric States Gerd (Gastroesophageal Reflux Disease) Diverticulosis of Colon Kidney Stone Elevated Lfts Postmenopausal Atrophic Vaginitis Internal Hemorrhoids Without Mention of Complication Chronic Kidney Disease (Ckd) Stage G3a/A2, Moderately Decreased Glomerular Filtration Rate (Gfr) Between 45-59 Ml/Min/1.73 Square Meter and Albuminuria Creatinine Ratio Between 30-299 Mg/G ([facility]) Class 1 Obesity With Body Mass Index (Bmi) of 32.0 to 32.9 in Adult Dysuria Mixed Hyperlipidemia Ruq Abdominal Pain Gerd Without Esophagitis Pmr (Polymyalgia Rheumatica) ([facility]) Arthritis, Multiple Joint Involvement Hypertension Dyslipidemia Chronic Insomnia Rls (Restless Legs Syndrome) Gout Involving Toe of Right Foot Hypertensive Kidney Disease With Stage 3 Chronic Kidney Disease (Hcc) Uncontrolled Type 2 Diabetes Mellitus With Hyperglycemia (Hcc) Acquired Trigger Finger of Left Ring Finger Osteopenia, Senile Situational Anxiety Vitamin D Deficiency Fatigue Fatty Liver PAST MEDICAL HISTORY Diagnosis Date Advance care planning 04/23/2022 daughter Rebecca Case is medical POA per patient Allergic rhinitis, cause unspecified Allergic rhinitis Arthritis Benign hypertensive heart disease without heart failure BPPV (benign paroxysmal positional vertigo) Chronic kidney disease (CKD) stage G3a/A2, moderately decreased glomerular filtration rate (GFR) between 45-59 mL/min/1.73 square meter and albuminuria creatinine ratio between 30-299 mg/g ([facility]) Diverticulitis Esophageal reflux Fatty liver Fatty liver Fibromyalgia Gastric polyp 07/04/2014 Dr. Spence, needs repeat EGD in 01/01 Gout right great toe Hernia of other specified sites of abdominal cavity without mention of obstruction or gangrene HIATAL Hypertension IBS (irritable bowel syndrome) Irritable bowel syndrome Leiomyoma of uterus Other and unspecified hyperlipidemia PONV (postoperative nausea and vomiting) 03/11/2018 Renal calculi Snoring Type II or unspecified type diabetes mellitus without mention of complication, not stated as uncontrolled Unspecified hemorrhoids without mention of complication Hemorrhoids Unspecified hypothyroidism Past medical, family and social history reviewed and updated. ALLERGIES Allergen Reactions Crestor [Rosuvastat* Other: See Comments Legs achy Niacin Itching Erythromycin GI Upset Iodine Rash Latex reddness Lescol [Fluvastatin* GI Upset Lipitor [Atorvastat* Intolerance Muscle aching Naprosyn [Naproxen] uncertain Pravastatin Myalgia Arm pain Mbdwyza-Kay-Lhd Red* Intolerance Sulfa (Sulfonamide * Hives Trulicity [Dulaglut* GI Upset Vomiting, diarrhea Hospitalized Vibramycin [Doxycyc* GI Upset Vioxx [Rofecoxib] Swelling Zocor [Simvastatin] uncertain Medication List Medication Directions Comments Action/Plan acetaminophen (TYLENOL) 325 mg tablet Take 2 tablets by mouth every 6 hours as needed for Pain. Using -- not present alcohol swabs padm Apply 1 application to affected area twice daily. USE TO CLEANSE ARE FOR B/S TESTING 1-2 TIMES PER DAY DX:EII.65 amLODIPine (NORVASC) 5 mg tablet Take 1 tablet by mouth once daily. States that she is not using -- pill bottle not present and confirmed no recent fill on [facility] amLODIPine (NORVASC) 5 mg tablet Take 1 tablet by mouth once daily. Duplicate Removed from med list apremilast (OTEZLA) 30 mg tablet Take 30 mg by mouth once daily. Taking once daily -- gets samples from doctor aspirin, enteric coated (ASPIR-LOW) 81 mg EC tablet Take 1 tablet by mouth once daily. Has, but not using Pill bottle not present Removed from med list benzonatate (TESSALON PERLES) 100 mg capsule Take 1 capsule by mouth three times daily as needed for cough. Uses occasionally for cough Pill bottle not present blood sugar diagnostic (ONETOUCH ULTRA TEST) test strip Test blood sugar 3-4 times daily, DX: E11.65 Insulin: yes Blood-Glucose Meter (ONETOUCH ULTRA2) monitoring kit 1 Each as needed. Test blood sugar 3-4 times daily, DX: E11.65 Insulin: yes busPIRone (BUSPAR) 5 mg tablet Take 1-2 tablets by mouth at bedtime as needed (insomnia). Does not think she is using Pill bottle not present Remove from list -- prescription outdated cholecalciferol (VITAMIN D-3) 2,000 unit tablet Take 2,000 Units by mouth once daily. Daily Takes Friday through Friday -- not taking Friday/Friday Told by Dr Pearce to do this just a couple of weeks ago citalopram (CELEXA) 20 mg tablet Take 1 tablet by mouth once daily. Duplicate Remove from list citalopram (CELEXA) 20 mg tablet Take 1 tablet by mouth once daily. Taking 20 mg once daily citalopram hydrobromide (CELEXA) 10 mg tablet Take 1 tablet by mouth once daily. Not taking -- taking 20 mg daily Remove from list colchicine (COLCRYS) 0.6 mg tablet Take 1 tablet by mouth once daily for 7 days. For acute gout flare up Remove colchicine (COLCRYS) 0.6 mg tablet Take 1 tablet by mouth twice daily. For acute gout flare up Only using when gout flare -- has on hand COMPOUNDED PRESCRIPTION BLOOD GLUCOSE METER OF CHOICE TESTING 1-2 TIMES DAILY DX;EII.65 enalapril (VASOTEC) 20 mg tablet Take 1 tablet by mouth once daily. Not taking Remove from medication list enalapril (VASOTEC) 20 mg tablet Take 1 tablet by mouth twice daily. Taking BID Pill bottle present estradiol (ESTRACE) 0.01 % (0.1 mg/gram) vaginal cream Apply pea-sized amount to urethral opening twice a week. Uses twice weekly -- says she has huge jar Not present at visit ezetimibe (ZETIA) 10 mg tablet Take 1 tablet by mouth once daily. For cholesterol Taking Pill bottle present At bedtime flash glucose scanning reader (LivescribeSTYLE BETSEY 14 DAY READER) Use to check blood sugar as directed. flash glucose sensor (FREESTYLE BETSEY 14 DAY SENSOR) kit Apply sensor to back of arm to check bloodsugars as directed. Change sensor every 2 weeks and rotate arms. furosemide (LASIX) 20 mg tablet TAKE 1 TABLET BY MOUTH DAILY X3 DAYS, THEN TAKE DAILY NEEDED FORFEET SWELLING. Took for a while -- then got better and did not have to take anymore. Not sure if she has at home. Been a year since using Pill bottle not present Removed from medication list -- prescription insulin glargine (LANTUS SOLOSTAR, BASAGLAR KWIKPEN) 100 unit/mL (3 mL) Inject 52 units SQ in the AM and 52 units SQ in the evening. Basaglar - through [facility]. Injecting twice daily -- injecting 52 units insulin lispro (HUMALOG KWIKPEN INSULIN) 100 unit/mL Inject 14 units with breakfast, 16 units with lunch, and 14 units with dinner + sliding scale insulin (1 unit for every 50 >150 pts). Gets through [facility]. Injecting TIDAC 14-16-14 Reports seldomly using 17 before dinner meal Insulin [place], Disposable, (BD ULTRA-FINE PATRICIO PEN NEEDLE) 32 gauge x Use 4 pen needles daily with Basaglar and Humalog lancets (GMATE LANCETS) 30 gauge [facility] DM2, 250.00, non insulin dependent, testing 1-2 times a day Lancets lancets PT IS TO TEST BLOOD SUGAR 1-2 TIMES PER DAY DX:EII.65 Lancing Device (LANCING DEVICE WITH LANCETS) [facility] Use to test blood sugar as directed. levothyroxine (SYNTHROID) 112 mcg tablet Take 1 tablet by mouth 6 days per week. Take 1/2 tablet bymouth 1 day per week. For thyroid. Removed from list levothyroxine (SYNTHROID) 112 mcg tablet Take 1 tablet by mouth PO daily in AM. For thyroid. Taking 1 tablet per day Pill bottle present metoprolol tartrate, short acting, (LOPRESSOR) 100 mg tablet TAKE 1 TABLET TWICE A DAY Taking BID Pill bottle present omeprazole (PRILOSEC) 40 mg capsule TAKE 1 CAPSULE DAILY Taking in morning on empty stomach Pill bottle present rosuvastatin (CRESTOR) 5 mg tablet take 1 tablet by mouth at bedtime Taking Pill bottle present traZODone (DESYREL) 100 mg tablet Take 1 tablet by mouth daily at bedtime. No longer using Pill bottle present triamcinolone acetonide (KENALOG) 0.1 % cream Apply 1 application to affected area twice daily. Forrash on right ear, Apply sparingly to area for rash/itching. Uses as needed for flare ups on skin Rx meds not listed in EPIC: Lorazepam 2 mg -- take one tablet by mouth at bedtime as needed (taking1 tablet at bedtime each night) OTCs: Fish oil 1200 m capsule once daily Herbals: None Objective: Last 3 Encounter BP Readings: Date: BP: 02/11/2023 130/80 01/28/2023 136/80 10/30/2022 136/88 Wt: 78.9 kg (174 lb) BMI: 31.83 kg/(m^2) LABS: Reviewed Lab Results Component Value Date HBA1C 8.1 01/23/2023 HBA1C 8.2 10/25/2022 HBA1C 10.1 07/26/2022 HBA1C 7.9 06/01/2021 HBA1C 8.5 02/27/2021 HBA1C 8.0 11/03/2020 CMP: Glucose 146 01/23/2023 BUN 18 01/23/2023 Creatinine 1.00 01/23/2023 Sodium 139 01/23/2023 Potassium 4.2 01/23/2023 Chloride 103 01/23/2023 CO2 24 01/23/2023 Protein, Total 6.8 01/23/2023 Albumin 4.1 01/23/2023 Calcium 10.0 01/23/2023 Alkaline Phosphatase 116 01/23/2023 Bilirubin, Total 0.3 01/23/2023 AST 47 01/23/2023 ALT 41 01/23/2023 eGFR = 60 mL/min/1.73m2 Cockcroft & Gault (Adjusted BW): 50.2 (mL/min) Lab Results Component Value Date CHOL 131 01/23/2023 CHOL 213 11/03/2020 CHOL 195 08/03/2020 LDL 65 01/23/2023 LDL 116 11/03/2020 LDL 105 08/03/2020 HDL 34 01/23/2023 HDL 34 11/03/2020 HDL 34 08/03/2020 TG 161 01/23/2023 TG 314 11/03/2020 TG 279 08/03/2020 The 10-year ASCVD risk score (Annette MCNEIL, et al., 2019) is: 25.2% Values used to calculate the score: Age: 72 years Sex: Female Is Non- : No Diabetic: Yes Tobacco smoker: No Systolic Blood Pressure: 130 mmHg Is BP treated: Yes HDL Cholesterol: 34 mg/dL Total Cholesterol: 131 mg/dL Albumin/Creat Ratio (mg/g) Date Value 07/26/2022 48 (H) PHARMACOTHERAPY ASSESSMENT/PLAN: 1. Medication management - ICD9: V58.69, ICD10: Z79.899 Reviewed all medications, indications, dosing, frequency, administration with patient. Medication list updated as described above. Amlodipine: Patient's blood pressure controlled and patient reports she has not been using recently. Because BP controlled and was not using, removed from list. Aspirin 81 mg: Patient was not using, states she feels she does not using. No secondary prevention indication -- removed from medication list. Furosemide: Patient no longer needs to use -- has not used in about a year and not sure if she has this medication at home at this time. Therefore, removed from medication list Trazodone: Patient not longer using. Therefore, removed from medication list Removed duplicates from list Patient reports using vitamin D3 M-F and not each day. States she was advised to take the vitamin Dthis way at last visit (Vit D was 92 ng/mL). Adjusted directions to reflect this. Patient reports using citalopram in the morning since previous visit. States that she is still not sleeping well. Educated on sleep hygiene, and the impact of nocturia on energy levels. 2. Type 2 diabetes mellitus with stage 3 chronic kidney disease, with long-term current use of insulin, unspecified whether stage 3a or 3b CKD (HCC) - ICD9: 250.40, 585.3, V58.67, ICD10: E11.22, N18.30, Z79.4 (primary diagnosis) A1c goal < 8%; uncontrolled (last A1c 8.1%); Patient's sensor off for much of the time over the past 14 days, however, over the past 3 days, patient is goal range essentially the entire day; No s/sx hypoglycemia; No s/sx hyperglycemia; Unable to accurately depict full trend of blood glucose levels as sensor only on 53% of time. However, readings obtained overall improved from last visit, and previous three days very well controlled. CONTINUE Basaglar 52 units BID CONTINUE Humalog 14-16-14 units TIDAC Discussed the importance of diet and its impact of blood sugars Educated that increased blood sugars can effect energy levels throughout the day and the impact frequent nocturia has on energy levels HbA1C: due 04/25 3. Essential hypertension, benign - ICD9: 401.1, ICD10: I10 Good control (Last BP 130/80); Goal of BP <130/80 DISCONTINUE amlodipine 5 mg daily Patient reports not using amlodipine at home, not on fill history through [facility] in the last three months.Controlled blood pressure without use. CONTINUE enalapril 20 mg BID and metoprolol tartrate 100 mg BID 4. Dyslipidemia - ICD9: 272.4, ICD10: E78.5 Per 2019 ACC/AHA, patient indicated or statin therapy with co-morbid T2DM. Patient has history of statin intolerance, re-initiated on rosuvastatin 5 mg on 10/24/2022. Patient's current therapy is rosuvastatin 5 mg once daily and ezetimibe 10 mg daily. Patient's 10-year ASCVD risk score 25.2%, LDL reduction > 50%, at goal. LFT sufficient for use CONTINUE rosuvastatin 5 mg once daily Patient denies experiencing muscle aches since re-initiating rosuvastatin CONTINUE ezetimibe 10 mg once daily Consider discontinuing in the future if LDL's remain at goal Follow-up Patient is not scheduled to see PCP team at this time. Patient to have f/up with PharmD team on 04/10/2023 @ 1PM. Patient verbalized understanding of instructions. Carlos Lopez PharmD, [facility] PGY1 Clinical Milk Pickup Driver The majority of the pharmacy visit (> 50%) was spent counseling and/or coordinating care for thepatient. interaction: face to face time was 60 minutes. * Matt Arnold RPh - 02/20/2023 2:00 PM EDT The patient's case was discussed with the pharmacy coordinator who interviewed the patient. [place] elements of history confirmed during office visit. The progress note reflects my input and comments. Matt Arnold PharmD, [facility] Primary Care Clinical Pharmacist documented [facility] encounterReg[facility] Instructions* Patient Instructions* Carlos Lopez RPh - 02/20/2023 2:00 PM EDT CONTINUE BASAGLAR 52 units BID CONTINUE Humalog 14-16-14 units prior to meals documented in this encounterRegency [facility]04-05-2023 Miscellaneous Notes* Telephone Encounter - Josy Mccann - 02/19/2023 1:58 PM EDT I was able to get this moved up to 03-25-2023, PT accepted. Josy PSS * Telephone Encounter - Naya Ruvalcaba APRN.CNP - 02/17/2023 4:49 PM EDT Please assist in scheduling with another provider in neurology to treat this. Not urgent but as soon as available. Thank you, Naya Ruvalcaba APRN.DARLENE * Telephone Encounter - Sherita Madsen Ma - 02/17/2023 10:43 AM EDT Pt is ok with seeing another neurologist and how quickly does she need to be seen by Neuro. Please advise. Sherita Madsen Ma * Telephone Encounter - Mariano Pearce DO - 02/14/2023 4:54 PM EDT Can set her up with alternative neurologist that specializes in headaches if able or willing to travel Mariano Pearce DO * Telephone Encounter - Valentina Agustin - 02/13/2023 5:21 PM EDT Pt is unable to get with Dr. Ahuja in neurology until April 2023. Pt wanted Dr Pearce to be aware. documented in this encounterRegency [facility]03-29-2023 History of Present illness Narrative* Mariano Pearce DO - 02/12/2023 9:18 PM EDT CC: Angeli Ramirez Case is a 72 year old female who presents to the office for follow up testing HPI: Seen in the office on 01/28/23 as below About 1 year ago, she got up in the middle of the night and she went to open the door and without warning or symptoms she fell backwards and hit the end table bedside stand and hit the back of her right side and posterior occipital area by description as well as had bruising on her forehead and quaker. Didn't seek any care at that time. Has been still having some soreness on the right posterior area of her head as well as headaches now, that comes and goes, seem to be worsening, aching in description. prior to this fall and head injury she doesn't remember having any significant routine headaches. Has tried Tylenol with relief. No neck pain typically but does feel her neck is occasionally sore, no light or noise sensitivity. Also has been noticing that she has some concerns for difficultywith short term memory recall at times, being forgetful of where she was going when in a store, forgets what items that she actually needs etc Testing was completed including Labs: vitamin D and b12 levels were stable. CBC and CMP were without new acute findings. A1c is stable ECHO 02/06/23- The left ventricle is small. There is mild concentric left ventricular hypertrophy. Left ventricular systolic function is normal. EF = 67 5% (2D biplane) Grade I left ventricular diastolic dysfunction. - The right ventricle is normal in size. Right ventricular systolic function is normal. - There are no significant valvular abnormalities. - Exam was compared with the prior echocardiographic exam performed on 09/06/2013, no significant change. ECG on 01/28/23, NORMAL SINUS RHYTHM NONSPECIFIC T WAVE ABNORMALITY, ABNORMAL ECG Carotid artery US on 02/06/23-Internal carotid artery: 20-39% stenosis bilateral CT brain on 02/10/23 No acute intracranial findings. Parenchyma: Mild parenchymal volume loss in the left temporal lobe given the asymmetric prominence of the left sylvian fissure. Prominent CSF overlying the bilateral anterior frontal lobes may be due to underlying volume loss as well. The brain parenchyma is otherwise within normal limits for age. Suspected asymmetric left temporal parenchymal volume loss PAST MEDICAL HISTORY Diagnosis Date Advance care planning 04/23/2022 daughter Rebecca Case is medical POA per patient Allergic rhinitis, cause unspecified Allergic rhinitis Arthritis Benign hypertensive heart disease without heart failure BPPV (benign paroxysmal positional vertigo) Chronic kidney disease (CKD) stage G3a/A2, moderately decreased glomerular filtration rate (GFR) between 45-59 mL/min/1.73 square meter and albuminuria creatinine ratio between 30-299 mg/g (HCC) Diverticulitis Esophageal reflux Fatty liver Fatty liver Fibromyalgia Gastric polyp 07/04/2014 Dr. Spence, needs repeat EGD in 01/01 Gout right great toe Hernia of other specified sites of abdominal cavity without mention of obstruction or gangrene HIATAL Hypertension IBS (irritable bowel syndrome) Irritable bowel syndrome Leiomyoma of uterus Other and unspecified hyperlipidemia PONV (postoperative nausea and vomiting) 03/11/2018 Renal calculi Snoring Type II or unspecified type diabetes mellitus without mention of complication, not stated as uncontrolled Unspecified hemorrhoids without mention of complication Hemorrhoids Unspecified hypothyroidism PAST SURGICAL HISTORY Procedure Laterality Date APPENDECTOMY APPENDECTOMY COLONOSCOPY FLX DX W/COLLJ SPEC WHEN PFRMD 07/04/14 Colonoscopy, Dr. Spence ESOPHAGOGASTRODUODENOSCOPY TRANSORAL DIAGNOSTIC 07/04/14 EGD, Dr. Spence ESOPHAGOGASTRODUODENOSCOPY TRANSORAL DIAGNOSTIC 05/29/15 EGD LAPS ABD PRTM&OMENTUM DX W/WO SPEC BR/WA SPX 1989 Laparoscopy and scar tissue seen LIG/TRNSXJ FLP TUBE ABDL/VAG APPR UNI/BI Tubal ligation PAST SURGICAL HISTORY OF CARPEL TUNNEL/BILATERAL PAST SURGICAL HISTORY OF 1969 exploratory lap and left salpingectomy for bad infection POLYPECTOMY SNARE STIFF WIRE 07/04/14 gastric TONSILLECTOMY HX TONSILLECTOMY PRIMARY/SECONDARY <AGE 12 Tonsillectomy VAGINAL HYSTERECTOMY VAGINAL HYSTERECTOMY UTERUS 250 GM/< 03/2018 Hysterectomy, vaginal Current Outpatient Medications Medication Sig metoprolol tartrate, short acting, (LOPRESSOR) 100 mg tablet TAKE 1 TABLET TWICE A DAY insulin lispro (HUMALOG KWIKPEN INSULIN) 100 unit/mL Inject 14 units with breakfast, 16 units with lunch, and 14 units with dinner + sliding scale insulin (1 unit for every 50 >150 pts). Gets through [facility]. insulin glargine (LANTUS SOLOSTAR, BASAGLAR KWIKPEN) 100 unit/mL (3 mL) Inject 52 units SQ in the AM and 52 units SQ in the evening. Basaglar - through [facility]. Insulin [place], Disposable, (BD ULTRA-FINE PATRICIO PEN NEEDLE) 32 gauge x /32 Use 4 pen needles daily with Basaglar and Humalog rosuvastatin (CRESTOR) 5 mg tablet take 1 tablet by mouth at bedtime benzonatate (TESSALON PERLES) 100 mg capsule Take 1 capsule by mouth three times daily as needed for cough. enalapril (VASOTEC) 20 mg tablet Take 1 tablet by mouth twice daily. levothyroxine (SYNTHROID) 112 mcg tablet Take 1 tablet by mouth PO daily in AM. For thyroid. ezetimibe (ZETIA) 10 mg tablet Take 1 tablet by mouth once daily. For cholesterol citalopram (CELEXA) 20 mg tablet Take 1 tablet by mouth once daily. amLODIPine (NORVASC) 5 mg tablet Take 1 tablet by mouth once daily. omeprazole (PRILOSEC) 40 mg capsule TAKE 1 CAPSULE DAILY enalapril (VASOTEC) 20 mg tablet Take 1 tablet by mouth once daily. levothyroxine (SYNTHROID) 112 mcg tablet Take 1 tablet by mouth 6 days per week. Take 1/2 tablet bymouth 1 day per week. For thyroid. citalopram (CELEXA) 20 mg tablet Take 1 tablet by mouth once daily. citalopram hydrobromide (CELEXA) 10 mg tablet Take 1 tablet by mouth once daily. amLODIPine (NORVASC) 5 mg tablet Take 1 tablet by mouth once daily. triamcinolone acetonide (KENALOG) 0.1 % cream Apply 1 application to affected area twice daily. Forrash on right ear, Apply sparingly to area for rash/itching. flash glucose scanning reader ([employer] BETSEY 14 DAY READER) Use to check blood sugar as directed. colchicine (COLCRYS) 0.6 mg tablet Take 1 tablet by mouth twice daily. For acute gout flare up colchicine (COLCRYS) 0.6 mg tablet Take 1 tablet by mouth once daily for 7 days. For acute gout flare up furosemide (LASIX) 20 mg tablet TAKE 1 TABLET BY MOUTH DAILY X3 DAYS, THEN TAKE DAILY NEEDED FORFEET SWELLING. traZODone (DESYREL) 100 mg tablet Take 1 tablet by mouth daily at bedtime. busPIRone (BUSPAR) 5 mg tablet Take 1-2 tablets by mouth at bedtime as needed (insomnia). apremilast (OTEZLA) 30 mg tablet Take 30 mg by mouth once daily. blood sugar diagnostic (ApplaudTOUCH ULTRA TEST) test strip Test blood sugar 3-4 times daily, DX: E11.65 Insulin: yes flash glucose sensor (LivescribeSTYLE BETSEY 14 DAY SENSOR) kit Apply sensor to back of arm to check bloodsugars as directed. Change sensor every 2 weeks and rotate arms. estradiol (ESTRACE) 0.01 % (0.1 mg/gram) vaginal cream Apply pea-sized amount to urethral opening twice a week. Lancing Device (LANCING DEVICE WITH LANCETS) [facility] Use to test blood sugar as directed. Blood-Glucose Meter (ONETOUCH ULTRA2) monitoring kit 1 Each as needed. Test blood sugar 3-4 times daily, DX: E11.65 Insulin: yes acetaminophen (TYLENOL) 325 mg tablet Take 2 tablets by mouth every 6 hours as needed for Pain. aspirin, enteric coated (ASPIR-LOW) 81 mg EC tablet Take 1 tablet by mouth once daily. COMPOUNDED PRESCRIPTION BLOOD GLUCOSE METER OF CHOICE TESTING 1-2 TIMES DAILY DX;EII.65 Lancets lancets PT IS TO TEST BLOOD SUGAR 1-2 TIMES PER DAY DX:EII.65 alcohol swabs padm Apply 1 application to affected area twice daily. USE TO CLEANSE ARE FOR B/S TESTING 1-2 TIMES PER DAY DX:EII.65 cholecalciferol (VITAMIN D-3) 2,000 unit tablet Take 2,000 Units by mouth once daily. lancets (GMATE LANCETS) 30 gauge [facility] DM2, 250.00, non insulin dependent, testing 1-2 times a day Current Facility-Administered Medications Medication Dose Route Frequency perflutren lipid microspheres 1.3 mL in NaCl (PF) 0.9% 10 mL injection (DEFINITY) INTRAVENOUS DIRECTED PRN sodium chloride 0.9 % (flush) 10 mL (BD POSIFLUSH) 10 mL INTRAVENOUS DIRECTED PRN ALLERGIES Allergen Reactions Crestor [Rosuvastat* Other: See Comments Legs achy Niacin Itching Erythromycin GI Upset Iodine Rash Latex reddness Lescol [Fluvastatin* GI Upset Lipitor [Atorvastat* Intolerance Muscle aching Naprosyn [Naproxen] uncertain Pravastatin Myalgia Arm pain [place]-Hrs-Sgp Red* Intolerance Sulfa (Sulfonamide * Hives Trulicity [Dulaglut* GI Upset Vomiting, diarrhea Hospitalized Vibramycin [Doxycyc* GI Upset Vioxx [Rofecoxib] Swelling Zocor [Simvastatin] uncertain Social History Tobacco Use Smoking status: Never Smokeless tobacco: Never Vaping Use Vaping Use: Never used Substance Use Topics Alcohol use: No Drug use: No ROS: See HPI PE: BP 130/80 Pulse 76 Temp (Src) 97 (Right Tympanic) Resp 20 Wt 174 lb (78.9kg) Gen: A&OX3, NAD, non-toxic appearing Discussion visit No edema legs, normal pulses Non focal neurologic exam ASSESSMENT/PLAN: 1. Encounter for screening mammogram for malignant neoplasm of breast - ICD9: V76.12, ICD10: Z12.31(primary diagnosis) - Set up for mammogram, yearly mammogram recommended - Encouraged monthly BSE - Follow up for annual exam in one year. - HIRAL SCREENING 2. History of head injury - ICD9: V15.59, ICD10: Z87.828 CT brain with ? Findings of left temporal and frontal lobes, unsure if related to the fall/injury vs. Other causes such as FTD vs. NPH or other cause. Patient needs to see Neurologist for further evaluation and opinion for next steps. She is aware and agreeable - CONSULT TO NEUROLOGY 3. Increased frequency of headaches - ICD9: 784.0, ICD10: R51.9 CT brain with ? Findings of left temporal and frontal lobes, unsure if related to the fall/injury vs. Other causes such as FTD vs. NPH or other cause. Patient needs to see Neurologist for further evaluation and opinion for next steps. She is aware and agreeable - CONSULT TO NEUROLOGY 4. Headache, worsening - ICD9: 784.0, ICD10: R51.9 CT brain with ? Findings of left temporal and frontal lobes, unsure if related to the fall/injury vs. Other causes such as FTD vs. NPH or other cause. Patient needs to see Neurologist for further evaluation and opinion for next steps. She is aware and agreeable - CONSULT TO NEUROLOGY 5. Abnormal CT of brain - ICD9: 793.0, ICD10: R90.89 CT brain with ? Findings of left temporal and frontal lobes, unsure if related to the fall/injury vs. Other causes such as FTD vs. NPH or other cause. Patient needs to see Neurologist for further evaluation and opinion for next steps. She is aware and agreeable - CONSULT TO NEUROLOGY Mariano Pearce DO Return if no improvement. Follow up with Mariano Pearce DO. To ER if develops chest pain, shortness of breath. Discussed risks, benefits, alternatives, and potential side effects of medications. Patient/Guardian expressed understanding and agreed with the plan. See patient instructions. Mariano Pearce DO [address] [place] [address] documented in this encounterReg[facility]-28-2023 Instructions* Patient Instructions* Mariano Pearce DO - 02/11/2023 5:02 PM EDT Mix hydrocortisone 1% cream + vaseline twice a day on chest rash documented in this encounterRegency [facility]03-27-2023 History of Present illness Narrative* Amanda Paz RT(R) - 02/10/2023 8:40 AM EDT Radiology Service Progress Note PATIENT NAME: Angeli Rees DATE OF SERVICE: February 10, 2023 TIME: 3:45 PM PATIENT IDENTITY VERIFICATION COMPLETED USING TWO (2) IDENTIFIERS: Name and Date of confirmedby patient verbally. FALL SCREENING: Has the patient had 2 falls in the last year or 1 fall with injury or currently using an Ambulatory Assistive Device (Walker, Cane, Wheelchair, Crutches, etc.)? No PATIENT GENDER DATA: Female. status: : No status: NO. PATIENT RELEVANT IMPLANT DATA REVIEWED: Yes RADIOLOGY DEPARTMENT: CT; Exam(s) Completed: Brain PERIPHERAL IV DATA: Not applicable SIGNED BY: RT Mariaa(R) February 10, 2023 3:45 PM documented in this encounterRegency Hospital [facility]03-15-2023 Miscellaneous Notes* Telephone Encounter - Glenys Stephenson MA - 01/29/2023 8:21 AM EDT Patient has been identified by name and date of : Yes Requested Prescriptions Pending Prescriptions Disp Refills metoprolol tartrate, short acting, (LOPRESSOR) 100 mg tablet [Pharmacy Med Name: METOPROLOL TARTRATE TABS 100MG] 180 tablet 3 Sig: TAKE 1 TABLET TWICE A DAY RX INSTRUCTIONS: Patient aware RX will be sent to pharmacy. No need to notify patient. Patient last office visit: 01/28/23 Patient next office visit: 02/20/23 Glenys Stephenson MA documented in this encounterRegency [facility]03-14-2023 Nurse Note* Sugar Arreola LPN - 01/28/2023 1:49 PM EDT EVENT MONITOR DISPOSABLE PATCH INSTRUCTIONS Patient Name: Angeli Ramirez Case Clinic Number: [id number] Skin prepped and cleansed with alcohol Patch secured to prepped area Monitor Activated Serial #: [id number] Patient Instructed: Prescribed order timeframe Bathing guidelines Usage of event button and diary documentation Return of monitor at the end of prescribed order Call with problems [phone] or [phone]. [phone] Patient expresses a good understanding of instructions Sugar Arreola LPN documented in this encounterRegency [facility]03-14-2023 Instructions* Patient Instructions* Mariano Pearce DO - 01/28/2023 12:50 PM EDT Hold vitamin D supplement on the weekends. documented in this encounterRegency Hospital [facility]03-14-2023 History of Present illness Narrative* Mariano Pearce DO - 01/28/2023 12:32 PM EDT Patient presents with: F/U 3 Month HPI: Angeli Rees is a 72 year old female who presents to the office today for review of health conditions. Concerns today: About 1 year ago, she got up in the middle of the night and she went to open the door and without warning or symptoms she fell backwards and hit the end table bedside stand and hit the back of her right side and posterior occipital area by description as well as had bruising on her forehead and quaker. Didn't seek any care at that time. Has been still having some soreness on the right posterior ar ea of her head as well as headaches now, that comes and goes, seem to be worsening, aching in description. prior to this fall and head injury she doesn't remember having any significant routine headaches. Has tried Tylenol with relief. No neck pain typically but does feel her neck is occasionally sore, no light or noise sensitivity. Also has been noticing that she has some concerns for difficultywith short term memory recall at times, being forgetful of where she was going when in a store, forgets what items that she actually needs etc. Ms. Rees has past history of diabetes. Since our last visit she denies excessive thirst or increased frequency of urination, chest pain or dyspnea , new or unusual visual symptoms, and low sugar/hypoglycemic reactions. Depression- no. Follows a diabetic diet some of the time. She is compliant with medication(s) and is tolerating med(s) without any side effects. She reports checking her glucose tika once a day schedule with sugars in the <150 range. Patient's last HgA1C was Hemoglobin A1C (%) Date Value 01/23/2023 8.1 10/25/2022 8.2 06/01/2021 7.9 02/27/2021 8.5 ) Last Ophthalmology exam was within the past 12 months Ms. Rees reports history of hyperlipidemia. Current therapy includes rosuvastatin (Crestor) 5 mg. Denies side effects of muscle weakness or achiness. Her most recent lipid panels are reviewed. Cholesterol, Total (mg/dL) Date Value 01/23/2023 131 08/03/2020 195 Total Cholesterol, Nonfasting (mg/dL) Date Value 11/03/2020 213 HDL Cholesterol (mg/dL) Date Value 01/23/2023 34 08/03/2020 34 HDL Cholesterol, Nonfasting (mg/dL) Date Value 11/03/2020 34 LDL Cholesterol (mg/dL) Date Value 01/23/2023 65 08/03/2020 105 LDL Cholesterol, Nonfasting (mg/dL) Date Value 11/03/2020 116 Triglyceride (mg/dL) Date Value 01/23/2023 161 08/03/2020 279 Triglycerides, Nonfasting (mg/dL) Date Value 11/03/2020 314 Ms. Rees indicates a history of hypertension and states that she is feeling well and denies any symptoms referable to elevated blood pressure. Specifically denies chest pain, palpitations, dyspnea, and peripheral edema. Patient denies any side effects of her medication(s) and is compliant with their regimen. Last 3 Encounter BP Readings: Date: BP: 01/28/2023 136/80 10/30/2022 136/88 07/29/2022 130/80 She watches her diet for sodium, low fat and low cholesterol some of the time. She does not check BP's generally. Angeli gets minimal exercise. PAST MEDICAL HISTORY Diagnosis Date Advance care planning 04/23/2022 daughter Rebecca Rees is medical POA per patient Allergic rhinitis, cause unspecified Allergic rhinitis Arthritis Benign hypertensive heart disease without heart failure BPPV (benign paroxysmal positional vertigo) Chronic kidney disease (CKD) stage G3a/A2, moderately decreased glomerular filtration rate (GFR) between 45-59 mL/min/1.73 square meter and albuminuria creatinine ratio between 30-299 mg/g (HCC) Diverticulitis Esophageal reflux Fatty liver Fatty liver Fibromyalgia Gastric polyp 07/04/2014 Dr. Spence, needs repeat EGD in 01/01 Gout right great toe Hernia of other specified sites of abdominal cavity without mention of obstruction or gangrene HIATAL Hypertension IBS (irritable bowel syndrome) Irritable bowel syndrome Leiomyoma of uterus Other and unspecified hyperlipidemia PONV (postoperative nausea and vomiting) 03/11/2018 Renal calculi Snoring Type II or unspecified type diabetes mellitus without mention of complication, not stated as uncontrolled Unspecified hemorrhoids without mention of complication Hemorrhoids Unspecified hypothyroidism PAST SURGICAL HISTORY Procedure Laterality Date APPENDECTOMY APPENDECTOMY COLONOSCOPY FLX DX W/COLLJ SPEC WHEN PFRMD 07/04/14 Colonoscopy, Dr. Spence ESOPHAGOGASTRODUODENOSCOPY TRANSORAL DIAGNOSTIC 07/04/14 EGD, Dr. Spence ESOPHAGOGASTRODUODENOSCOPY TRANSORAL DIAGNOSTIC 05/29/15 EGD LAPS ABD PRTM&OMENTUM DX W/WO SPEC BR/WA SPX 1989 Laparoscopy and scar tissue seen LIG/TRNSXJ FLP TUBE ABDL/VAG APPR UNI/BI Tubal ligation PAST SURGICAL HISTORY OF CARPEL TUNNEL/BILATERAL PAST SURGICAL HISTORY OF 1969 exploratory lap and left salpingectomy for bad infection POLYPECTOMY SNARE STIFF WIRE 07/04/14 gastric TONSILLECTOMY HX TONSILLECTOMY PRIMARY/SECONDARY <AGE 13 Tonsillectomy VAGINAL HYSTERECTOMY VAGINAL HYSTERECTOMY UTERUS 250 GM/< 03/2018 Hysterectomy, vaginal Social History Tobacco Use Smoking status: Never Smokeless tobacco: Never Vaping Use Vaping Use: Never used Substance Use Topics Alcohol use: No Drug use: No FAMILY HISTORY Problem Relation Age of Onset Diabetes Father Hypertension Father Lipids Father Hypertension Mother other (DEMENTIA) Mother Cancer Maternal Grandmother gallbladder Allergies: ALLERGIES Allergen Reactions Crestor [Rosuvastat* Other: See Comments Legs achy Niacin Itching Erythromycin GI Upset Iodine Rash Latex reddness Lescol [Fluvastatin* GI Upset Lipitor [Atorvastat* Intolerance Muscle aching Naprosyn [Naproxen] uncertain Pravastatin Myalgia Arm pain Vjroolp-Efc-Poz Red* Intolerance Sulfa (Sulfonamide * Hives Trulicity [Dulaglut* GI Upset Vomiting, diarrhea Hospitalized Vibramycin [Doxycyc* GI Upset Vioxx [Rofecoxib] Swelling Zocor [Simvastatin] uncertain Current Meds: insulin lispro (HUMALOG KWIKPEN INSULIN) 100 unit/mL Inject 14 units with breakfast, 16 units with lunch, and 14 units with dinner + sliding scale insulin (1 unit for every 50 >150 pts). Gets through [facility]. insulin glargine (LANTUS SOLOSTAR, BASAGLAR KWIKPEN) 100 unit/mL (3 mL) Inject 52 units SQ in the AM and 52 units SQ in the evening. Basaglar - through [facility]. Insulin [place], Disposable, (BD ULTRA-FINE PATRICIO PEN NEEDLE) 32 gauge x Use 4 pen needles daily with Basaglar and Humalog rosuvastatin (CRESTOR) 5 mg tablet take 1 tablet by mouth at bedtime benzonatate (TESSALON PERLES) 100 mg capsule Take 1 capsule by mouth three times daily as needed for cough. enalapril (VASOTEC) 20 mg tablet Take 1 tablet by mouth twice daily. levothyroxine (SYNTHROID) 112 mcg tablet Take 1 tablet by mouth PO daily in AM. For thyroid. ezetimibe (ZETIA) 10 mg tablet Take 1 tablet by mouth once daily. For cholesterol citalopram (CELEXA) 20 mg tablet Take 1 tablet by mouth once daily. amLODIPine (NORVASC) 5 mg tablet Take 1 tablet by mouth once daily. omeprazole (PRILOSEC) 40 mg capsule TAKE 1 CAPSULE DAILY metoprolol tartrate, short acting, (LOPRESSOR) 100 mg tablet Take 1 tablet by mouth twice daily. enalapril (VASOTEC) 20 mg tablet Take 1 tablet by mouth once daily. levothyroxine (SYNTHROID) 112 mcg tablet Take 1 tablet by mouth 6 days per week. Take 1/2 tablet bymouth 1 day per week. For thyroid. citalopram (CELEXA) 20 mg tablet Take 1 tablet by mouth once daily. citalopram hydrobromide (CELEXA) 10 mg tablet Take 1 tablet by mouth once daily. amLODIPine (NORVASC) 5 mg tablet Take 1 tablet by mouth once daily. triamcinolone acetonide (KENALOG) 0.1 % cream Apply 1 application to affected area twice daily. Forrash on right ear, Apply sparingly to area for rash/itching. flash glucose scanning reader (LivescribeSTYLE BETSEY 14 DAY READER) Use to check blood sugar as directed. colchicine (COLCRYS) 0.6 mg tablet Take 1 tablet by mouth twice daily. For acute gout flare up colchicine (COLCRYS) 0.6 mg tablet Take 1 tablet by mouth once daily for 7 days. For acute gout flare up furosemide (LASIX) 20 mg tablet TAKE 1 TABLET BY MOUTH DAILY X3 DAYS, THEN TAKE DAILY NEEDED FORFEET SWELLING. traZODone (DESYREL) 100 mg tablet Take 1 tablet by mouth daily at bedtime. busPIRone (BUSPAR) 5 mg tablet Take 1-2 tablets by mouth at bedtime as needed (insomnia). apremilast (OTEZLA) 30 mg tablet Take 30 mg by mouth once daily. blood sugar diagnostic (ONETOUCH ULTRA TEST) test strip Test blood sugar 3-4 times daily, DX: E11.65 Insulin: yes flash glucose sensor (FREESTYLE BETSEY 14 DAY SENSOR) kit Apply sensor to back of arm to check bloodsugars as directed. Change sensor every 2 weeks and rotate arms. estradiol (ESTRACE) 0.01 % (0.1 mg/gram) vaginal cream Apply pea-sized amount to urethral opening twice a week. Lancing Device (LANCING DEVICE WITH LANCETS) [facility] Use to test blood sugar as directed. Blood-Glucose Meter (ONETOUCH ULTRA2) monitoring kit 1 Each as needed. Test blood sugar 3-4 times daily, DX: E11.65 Insulin: yes acetaminophen (TYLENOL) 325 mg tablet Take 2 tablets by mouth every 6 hours as needed for Pain. aspirin, enteric coated (ASPIR-LOW) 81 mg EC tablet Take 1 tablet by mouth once daily. COMPOUNDED PRESCRIPTION BLOOD GLUCOSE METER OF CHOICE TESTING 1-2 TIMES DAILY DX;EII.65 Lancets lancets PT IS TO TEST BLOOD SUGAR 1-2 TIMES PER DAY DX:EII.65 alcohol swabs padm Apply 1 application to affected area twice daily. USE TO CLEANSE ARE FOR B/S TESTING 1-2 TIMES PER DAY DX:EII.65 cholecalciferol (VITAMIN D-3) 2,000 unit tablet Take 2,000 Units by mouth once daily. lancets (GMATE LANCETS) 30 gauge misc DM2, 250.00, non insulin dependent, testing 1-2 times a day Review of Systems: The remainder of the review of systems is negative. PE: 01/28/23 1219 BP: 136/80 Pulse: 64 Resp: 20 Temp: 36.4 C (97.5 F) TempSrc: Right Tympanic Weight: 80.3 kg (177 lb) Gen: A&O, NAD, non-toxic appearing, appears fatigued, cooperative HEENT: NT/AC, PERRLA, EOMs intact b/l, nares clear and patent b/l, pharynx without erythema, exudate or lesions. Uvula midline. EACs without erythema or debris. TMs pearly villanueva with intact landmarks b/l. Neck: supple, No cervical LAD, no thyromegaly, ? left carotid bruits CV: RRR, normal S1 and S2, no murmurs, no gallops, no rubs, Pulses 2+ and symmetric in UE and LE b/l Lungs: normal respiratory effort, CTA b/l, no wheezing or rhonchi or rales Abd: soft, NT, ND, +BS, no hepatosplenomegaly MS: FROM all 4 extremities Neuro: CN II-XII intact b/l, strength 5/5 b/l UE and LE, DTRs 2/4 UE and LE, sensation intact. Non focal exam except for mildly unsteady with standing stance and gait, leaning to the right. Skin: warm, dry, intact, No rashes or lesions on exposed skin. Foot exam: Monofilament wnl on right and left feet. No edema ASSESSMENT/PLAN: 1. Uncontrolled type 2 diabetes mellitus with hyperglycemia (HCC) - ICD9: 250.02, ICD10: E11.65 (primary diagnosis) - Uncontrolled - Improving control - Continue current medications - Blood glucose monitoring on a CGM schedule - Counseled on healthy diet and regular exercise - Discussed need for and benefit of weight loss. BMI 32.37 kg/(m^2) 2. Syncope, unspecified syncope type - ICD9: 780.2, ICD10: R55 - need for further testing due to previous syncope episode, didn't just occur, occurred after head injury but was months ago. Need for further testing. May have a post concussive chronic headache vs.Neck arthritis and referral of pain to cause headache vs. Other cause intracranial or cardiac or carotid artery related - ECG COMPLETE - OUTSIDE VENDOR CARDIAC OUTPATIENT EXTENDED RHYTHM RECORDING (WITHOUT TELEMETRY) - ECHO - PERFLUTREN LIPID MICROSPHERES 1.1 MG/ML INJECTION IN NS 10 ML - SODIUM CHLORIDE 0.9 % (FLUSH) INJECTION SYRINGE - CT BRAIN WO IVCON - US CAROTID ARTERIES [facility] 3. History of head injury - ICD9: V15.59, ICD10: Z87.828 - need for further testing due to previous syncope episode, didn't just occur, occurred after head injury but was months ago. Need for further testing. May have a post concussive chronic headache vs.Neck arthritis and referral of pain to cause headache vs. Other cause intracranial or cardiac or carotid artery related - CT BRAIN WO IVCON 4. Increased frequency of headaches - ICD9: 784.0, ICD10: R51.9 - need for further testing due to previous syncope episode, didn't just occur, occurred after head injury but was months ago. Need for further testing. May have a post concussive chronic headache vs.Neck arthritis and referral of pain to cause headache vs. Other cause intracranial or cardiac or carotid artery related - CT BRAIN WO IVCON - US CAROTID ARTERIES [facility] 5. Headache, worsening - ICD9: 784.0, ICD10: R51.9 - need for further testing due to previous syncope episode, didn't just occur, occurred after head injury but was months ago. Need for further testing. May have a post concussive chronic headache vs.Neck arthritis and referral of pain to cause headache vs. Other cause intracranial or cardiac or carotid artery related - CT BRAIN WO IVCON - US CAROTID ARTERIES [facility] 6. Short-term memory loss - ICD9: 780.93, ICD10: R41.3 - need for further testing due to previous syncope episode, didn't just occur, occurred after head injury but was months ago. Need for further testing. May have a post concussive chronic headache vs.Neck arthritis and referral of pain to cause headache vs. Other cause intracranial or cardiac or carotid artery related - is going to need MMSE completed after testing done - US CAROTID ARTERIES [facility] 7. Essential hypertension, benign - ICD9: 401.1, ICD10: I10 - suboptimal control - Continue current medication(s) - Encouraged dietary sodium restriction/DASH diet - Recommended regular aerobic exercise. - Recommend home blood pressure monitoring, to bring results in on next visit - Discussed need and benefit for weight loss. - Goal of BP <130/80 8. Hypertension, unspecified type - ICD9: 401.9, ICD10: I10 - suboptimal control - Continue current medication(s) - Encouraged dietary sodium restriction/DASH diet - Recommended regular aerobic exercise. - Recommend home blood pressure monitoring, to bring results in on next visit - Discussed need and benefit for weight loss. - Goal of BP <130/80 9. Acquired hypothyroidism - ICD9: 244.9, ICD10: E03.9 - Instructed patient on importance of taking on an empty stomach either first thing in the morning or at bedtime. Stable - Continue current medications Mariano Pearce DO I spent 45 minutes in the visit, with more than 50% of the total [id number] time of the visit in counseling / coordination of care. To ER if develops chest pain, shortness of breath, or severe worsening of symptoms. Discussed risks, benefits, alternatives, and potential side effects of medications. Patient expressed understanding and agreed with the plan. Mariano Pearce DO [address] [place] [address] documented in this encounterReg[facility]03-02-2023 History of Present illness Narrative* Matt Arnold, [facility] - 01/16/2023 1:30 PM EST Images from the original note were not included. Primary Care Pharmacy Visit CC (Reason for Consult): Diabetes Goal: A1c < 8% Collaborating Provider: Dr. Pearce Last Provider Visit: 10/30/22 Angeli Rees is a 72 year old female presenting for follow up visit in person. Patient consents [facility] practice agreement. Patient is presenting today for f/up pharmacotherapy management appointment for diabetes. At PharmDvisit on 04/10, patient reported not utilizing sliding scale as prescribed, discussed utilizing sliding scale in addition to base amount for Humalog. At PharmD visit on 06/10, mealtime insulin was increased. At PharmD visit on 07/11, Jardiance was started and appropriate mealtime insulin dosing was discussed. At PharmD visit on 08/22, patient reported significant dietary changes and improved blood sugars. Unfortunately she did not qualify for any SGLT2i PAPs. Mealtime insulin was reduced and patient counseled on appropriate mngt of lows without over-correcting. At PharmD visit on 10/24, lunchtime insulin increased and rosuvastatin initiated. At last PCP visit, patient was treated with sinusitis.At last PharmD visit on 12/05, Basaglar was increased and better diet was urged. Subjective: HPI: Currently recovering from a low. Said she only had no sugar applesauce for breakfast and didn't eatanything else today. [place] a little funny, scanner read she was in the 60s about 30 mins ago. Drank some OJ. Feeling a little better now. CGM reading now is in 160s. States she thinks that she will be doing well for a little bit and then sugars will go back up. Doesn't feel much is diet related, eating a lot of sugar-free stuff. Wakes up a lot at night to urinate, usually 5 times per night. Not sleeping well, feels tired often. Taking Celexa at night, thinks it may be causing issues with helping her sleep. Patient states that 6 mo ago she fell late at night and hit her head on a cabinet. Has had some intermittent headaches every since. Not having an issue right now though does note that it comes and goes. Has not discussed with PCP. Current DM Medications: Insulin glargine (Basaglar) 52 units BID Insulin lispro (Humalog) 15-16-15 units + SSI TIDAC (taking 14-16-14 units TIDAC) Add 0 units if BS (blood sugar) is between 70-150 Add 1 units if BS is between 151-200 Add 2 units if BS is between 201-250 Add 3 units if BS is between 251-300 Add 4 units if BS is between 301-350 Add 5 units if BS is between 351-400 BS > 400, call your physician Past DM medications tried and stopped: Glipizide - hypoglycemia Metformin ER - GI upset Liraglutide - cost-prohibitive; pt felt it did not offer much BG-lowering Trulicity - stomach issues + HIPOLITO GLYCEMIC CONTROL: Preventative Medications: On STEPHANIA/ARB: Yes On Statin: Yes ROS: Patient denies CP, SOB, FREEDMAN, blurred vision, dizziness or lightheadedness Patient denies symptoms of hypoglycemia (sweating, anxiety, palpitations, hunger, and tremor) Patient denies symptoms of hyperglycemia (polyuria, polydipsia, polyphagia) Patient denies potential medication adverse effects DIET/EXERCISE/SOCIAL Hx: Eats sugar free stuff Surprised that ritz crackers and Jiff peanut butter raised blood sugars MEDICATIONS: Pill bottles are not present Adherence: denies missed doses Pharmacy: [facility] or [facility] Rx coverage: Medicare Part D ([employer]) Affordability: no issues, gets insulins through [employer] PAP Diabetes supplies: [employer] System: pill box ACTIVE PROBLEM LIST Allergic Rhinitis, Cause Unspecified Essential Hypertension, Benign Type 2 Diabetes Mellitus With Stage 3 Chronic Kidney Disease, With Long-Term Current Use of Insulin([facility]) Acquired Hypothyroidism Symptomatic Menopausal Or Female Climacteric States Gerd (Gastroesophageal Reflux Disease) Diverticulosis of Colon Kidney Stone Elevated Lfts Postmenopausal Atrophic Vaginitis Internal Hemorrhoids Without Mention of Complication Chronic Kidney Disease (Ckd) Stage G3a/A2, Moderately Decreased Glomerular Filtration Rate (Gfr) Between 45-59 Ml/Min/1.73 Square Meter and Albuminuria Creatinine Ratio Between 30-299 Mg/G ([facility]) Class 1 Obesity With Body Mass Index (Bmi) of 32.0 to 32.9 in Adult Dysuria Mixed Hyperlipidemia Ruq Abdominal Pain Gerd Without Esophagitis Pmr (Polymyalgia Rheumatica) ([facility]) Arthritis, Multiple Joint Involvement Hypertension Dyslipidemia Chronic Insomnia Rls (Restless Legs Syndrome) Gout Involving Toe of Right Foot Hypertensive Kidney Disease With Stage 3 Chronic Kidney Disease ([facility]) Type 2 Diabetes Mellitus With Hyperglycemia, With Long-Term Current Use of Insulin ([facility]) Acquired Trigger Finger of Left Ring Finger Osteopenia, Senile Situational Anxiety Vitamin D Deficiency Fatigue Fatty Liver PAST MEDICAL HISTORY Diagnosis Date Advance care planning 04/23/2022 daughter Rebecca Case is medical POA per patient Allergic rhinitis, cause unspecified Allergic rhinitis Arthritis Benign hypertensive heart disease without heart failure BPPV (benign paroxysmal positional vertigo) Chronic kidney disease (CKD) stage G3a/A2, moderately decreased glomerular filtration rate (GFR) between 45-59 mL/min/1.73 square meter and albuminuria creatinine ratio between 30-299 mg/g (HCC) Diverticulitis Esophageal reflux Fatty liver Fatty liver Fibromyalgia Gastric polyp 07/04/2014 Dr. Spence, needs repeat EGD in 01/01 Gout right great toe Hernia of other specified sites of abdominal cavity without mention of obstruction or gangrene HIATAL Hypertension IBS (irritable bowel syndrome) Irritable bowel syndrome Leiomyoma of uterus Other and unspecified hyperlipidemia PONV (postoperative nausea and vomiting) 03/11/2018 Renal calculi Snoring Type II or unspecified type diabetes mellitus without mention of complication, not stated as uncontrolled Unspecified hemorrhoids without mention of complication Hemorrhoids Unspecified hypothyroidism ALLERGIES Allergen Reactions Crestor [Rosuvastat* Other: See Comments Legs achy Niacin Itching Erythromycin GI Upset Iodine Rash Latex reddness Lescol [Fluvastatin* GI Upset Lipitor [Atorvastat* Intolerance Muscle aching Naprosyn [Naproxen] uncertain Pravastatin Myalgia Arm pain Gyslpkq-Yic-Cmp Red* Intolerance Sulfa (Sulfonamide * Hives Trulicity [Dulaglut* GI Upset Vomiting, diarrhea Hospitalized Vibramycin [Doxycyc* GI Upset Vioxx [Rofecoxib] Swelling Zocor [Simvastatin] uncertain Medication List Medication Directions Comments Action/Plan acetaminophen (TYLENOL) 325 mg tablet Take 2 tablets by mouth every 6 hours as needed for Pain. alcohol swabs padm Apply 1 application to affected area twice daily. USE TO CLEANSE ARE FOR B/S TESTING 1-2 TIMES PER DAY DX:EII.65 amLODIPine (NORVASC) 5 mg tablet Take 1 tablet by mouth once daily. amLODIPine (NORVASC) 5 mg tablet Take 1 tablet by mouth once daily. apremilast (OTEZLA) 30 mg tablet Take 30 mg by mouth once daily. aspirin, enteric coated (ASPIR-LOW) 81 mg EC tablet Take 1 tablet by mouth once daily. benzonatate (TESSALON PERLES) 100 mg capsule Take 1 capsule by mouth three times daily as needed for cough. blood sugar diagnostic (ONETOUCH ULTRA TEST) test strip Test blood sugar 3-4 times daily, DX: E11.65 Insulin: yes Blood-Glucose Meter (ONETOUCH ULTRA2) monitoring kit 1 Each as needed. Test blood sugar 3-4 times daily, DX: E11.65 Insulin: yes busPIRone (BUSPAR) 5 mg tablet Take 1-2 tablets by mouth at bedtime as needed (insomnia). cholecalciferol (VITAMIN D-3) 2,000 unit tablet Take 2,000 Units by mouth once daily. citalopram (CELEXA) 20 mg tablet Take 1 tablet by mouth once daily. citalopram (CELEXA) 20 mg tablet Take 1 tablet by mouth once daily. citalopram hydrobromide (CELEXA) 10 mg tablet Take 1 tablet by mouth once daily. colchicine (COLCRYS) 0.6 mg tablet Take 1 tablet by mouth once daily for 7 days. For acute gout flare up colchicine (COLCRYS) 0.6 mg tablet Take 1 tablet by mouth twice daily. For acute gout flare up COMPOUNDED PRESCRIPTION BLOOD GLUCOSE METER OF CHOICE TESTING 1-2 TIMES DAILY DX;EII.65 enalapril (VASOTEC) 20 mg tablet Take 1 tablet by mouth once daily. enalapril (VASOTEC) 20 mg tablet Take 1 tablet by mouth twice daily. estradiol (ESTRACE) 0.01 % (0.1 mg/gram) vaginal cream Apply pea-sized amount to urethral opening twice a week. ezetimibe (ZETIA) 10 mg tablet Take 1 tablet by mouth once daily. For cholesterol flash glucose scanning reader (FREESTYLE BETSEY 14 DAY READER) Use to check blood sugar as directed. flash glucose sensor (FREESTYLE BETSEY 14 DAY SENSOR) kit Apply sensor to back of arm to check bloodsugars as directed. Change sensor every 2 weeks and rotate arms. furosemide (LASIX) 20 mg tablet TAKE 1 TABLET BY MOUTH DAILY X3 DAYS, THEN TAKE DAILY NEEDED FORFEET SWELLING. Not using, usually only PRN insulin glargine (LANTUS SOLOSTAR, BASAGLAR KWIKPEN) 100 unit/mL (3 mL) Inject 52 units SQ in the AM and 52 units SQ in the evening. Basaglar - through [facility]. insulin lispro (HUMALOG KWIKPEN INSULIN) 100 unit/mL Inject 15 units with breakfast, 16 units with lunch, and 15 units with dinner + sliding scale insulin (1 unit for every 50 >150 pts). Gets through [facility]. Insulin [place], Disposable, (BD ULTRA-FINE PATRICIO PEN NEEDLE) 32 gauge x /32 Use 4 pen needles daily with Basaglar and Humalog lancets (GMATE LANCETS) 30 gauge [facility] DM2, 250.00, non insulin dependent, testing 1-2 times a day Lancets lancets PT IS TO TEST BLOOD SUGAR 1-2 TIMES PER DAY DX:EII.65 Lancing Device (LANCING DEVICE WITH LANCETS) [facility] Use to test blood sugar as directed. levothyroxine (SYNTHROID) 112 mcg tablet Take 1 tablet by mouth 6 days per week. Take 1/2 tablet bymouth 1 day per week. For thyroid. levothyroxine (SYNTHROID) 112 mcg tablet Take 1 tablet by mouth PO daily in AM. For thyroid. LORazepam (ATIVAN) 2 mg tab Take 1 tablet by mouth at bedtime as needed for up to 30 days. Taking nightly metoprolol tartrate, short acting, (LOPRESSOR) 100 mg tablet Take 1 tablet by mouth twice daily. omeprazole (PRILOSEC) 40 mg capsule TAKE 1 CAPSULE DAILY rosuvastatin (CRESTOR) 5 mg tablet take 1 tablet by mouth at bedtime traZODone (DESYREL) 100 mg tablet Take 1 tablet by mouth daily at bedtime. triamcinolone acetonide (KENALOG) 0.1 % cream Apply 1 application to affected area twice daily. Forrash on right ear, Apply sparingly to area for rash/itching. Objective: Exam: Last 3 Encounter BP Readings: Date: BP: 10/30/2022 136/88 07/29/2022 130/80 04/23/2022 120/70 Wt: 80.7 kg (178 lb) BMI: 32.56 kg/(m^2) LABS: Reviewed Lab Results Component Value Date HBA1C 8.2 10/25/2022 HBA1C 10.1 07/26/2022 HBA1C 9.2 04/18/2022 HBA1C 7.9 06/01/2021 HBA1C 8.5 02/27/2021 HBA1C 8.0 11/03/2020 CMP: Glucose 240 07/26/2022 BUN 13 07/26/2022 Creatinine 1.07 07/26/2022 Sodium 135 07/26/2022 Potassium 4.0 07/26/2022 Chloride 102 07/26/2022 CO2 22 07/26/2022 Protein, Total 7.1 07/26/2022 Albumin 4.1 07/26/2022 Calcium 9.3 07/26/2022 Alkaline Phosphatase 141 07/26/2022 Bilirubin, Total 0.2 07/26/2022 AST 63 07/26/2022 ALT 67 07/26/2022 eGFR 56 (per CMP 07/26/22) Lab Results Component Value Date CHOL 227 10/25/2022 CHOL 213 11/03/2020 CHOL 195 08/03/2020 LDL 150 10/25/2022 LDL 116 11/03/2020 LDL 105 08/03/2020 HDL 39 10/25/2022 HDL 34 11/03/2020 HDL 34 08/03/2020 TG 192 10/25/2022 TG 314 11/03/2020 TG 279 08/03/2020 The 10-year ASCVD risk score (Annette MCNEIL, et al., 2019) is: 30.2% Values used to calculate the score: Age: 72 years Sex: Female Is Non- : No Diabetic: Yes Tobacco smoker: No Systolic Blood Pressure: 136 mmHg Is BP treated: Yes HDL Cholesterol: 39 mg/dL Total Cholesterol: 227 mg/dL Albumin/Creat Ratio (mg/g) Date Value 07/26/2022 48 (H) PHARMACOTHERAPY ASSESSMENT/PLAN: 1. Type 2 diabetes mellitus with stage 3 chronic kidney disease, with long-term current use of insulin, unspecified whether stage 3a or 3b CKD (HCC) - ICD9: 250.40, 585.3, V58.67, ICD10: E11.22, N18.30, Z79.4 A1c goal < 8%; borderline control (last A1c 8.2%); CGM shows poor control, likely diet related; no frequent issues with lows though did have a low earlier this afternoon as a result of skipping breakfast and lunch; has low energy and frequent nocturia; patient gets stressed regarding diabetes and BG control; thinks she is not eating high carb foods, only eating sugar free stuff though was surprised to see Alton[employer] crackers and peanut butter spike her sugars; patient needs more education on nutrition; no med changes today since patient gets overwhelmed with frequent med changes; f/up in 1 mo CONTINUE Basaglar 52 units BID and Humalog 14-16-14 units TIDAC Applauded on improved BG control Educated how high Bgs often results in low energy and frequent nocturia. Encouraged reviewing nutrition labels focusing primarily on Total Carbohydrates, try to limit meals to <30-45g carbs. [employer] booklet provided. Informed her Jose crackers are high in carbs and should cut back HbA1c: due 01/23 2. Medication management - ICD9: V58.69, ICD10: Z79.899 Patient feels med list is not fully accurate. Not enough time to address today but patient agreeable to bringing in pill bottles to upcoming visit for thorough med review for next appt Patient feels taking Celexa at night may be contributing to her poor sleep. Her last dose was last night. Advised her to try changing the timing of med to morning --> advised to take 1 tab QAM starting tomorrow, to see if that helps with sleeping. Discussed that issue is mostly likely related tofrequency of nocturia from diabetes Taking Lorazepam 2mg nightly to help with sleep though doesn't feel it is helping much. Benzos increase risk of cognitive impairment, MVAs, falls, etc in elderly and is not recommended to be used chronically as a sleep aid. Discussed the risks of medication and suggested that if she does not feel the medicine is working well for her, she can try cutting dose back gradually to 1/2 tab nightly to see if she notices any change in sleep. If no difference after several weeks, then can continue to cut back to 1/4 tab nightly for several weeks, and if still no change then to try without medication. Stressed the importance of NOT stopping medication suddenly. If has questions should reach out to PharmD or PCP Patient denies any alarm sx today. Did advise her to discuss her fall and frequent headaches from 6mo ago with PCP at upcoming appt. Follow-up Patient is scheduled to see PCP team on 01/28. Patient to have f/up with PharmD team on 02/20. Patient verbalized understanding of instructions. Matt Arnold, PharmD, BCPS Primary Care Clinical Pharmacist The majority of the pharmacy visit (> 50%) was spent counseling and/or coordinating care for thepatient. interaction: face to face time was 30 minutes. [facility] Instructions* Patient Instructions* Matt Arnold RPh - 01/16/2023 1:30 PM EST CONTINUE all of your current medication. High blood sugars can contribute to low energy levels, frequent urination, and dry mouth. Please continue to work on getting your blood sugars lowered. A lot of this is based on what you are eating. Start reviewing nutrition labels. Try to increase your intake of vegetables (NOT including corn or potatoes), lean mean (poultry, fish), and high fiber foods. If eating bread or pasta, make sure it is WHOLE grain. Try to limit your intake of Total Carbohydrates to < 30 or 45 grams per Meal (this INCLUDES yourbeverage). Bring in all of your medications to your next visit for a full medication review. documented in this encounterReg[facility] Evaluation note* Diagnosis Type 2 diabetes mellitus with stage 3 chronic kidney disease, with long-term current use of insulin, unspecified whether stage 3a or 3b CKD (HCC)- Primary Medication management Encounter for long-term (current) use of other medications documented in this encounter [facility] Miscellaneous Notes* Telephone Encounter - Kim Love LPN - 01/13/2023 2:40 PM EST 1) . Was faxed back today. 2.) This nurse faxed last 6 months of office visits to fax number provided. * Telephone Encounter - Elli Timmons LPN - 01/13/2023 10:03 AM EST [place] with [facility] called for the following and identified pt with name and date of . 1) and they re-faxed papers 01-10-23 that needed the name printed and the NPI for the signing physician which was Antoinette Navarrete CNP. Please fax back FAX: [phone]. 2) 01-07-23 they faxed a clinic not request for OV for past [address] Pearce and fax to [phone]. If this was not received please call [phone]. Elli Timmons LPN documented in this encounterReg[facility]01-20-2023 Miscellaneous Notes* Telephone Encounter - Matt Arnold RPh - 12/06/2022 12:13 PM EST Returned call to patient. She wanted clarification on the insulin dose adjustment. Informed her to take 52 units BID as we discussed, she had no further questions. Advised her to also contact PharmD if starts having issues with low blood sugars. Matt Arnlod PharmD, [facility] Primary Care Clinical Pharmacist * Telephone Encounter - Tracie Gonzales LPN - 12/06/2022 9:36 AM EST Patient asking for a call. She has some questions regarding insulin instructions that were discussed yesterday. Please advise. documented in this encounterReg[facility]01-19-[facility]23 History of Present illness Narrative* Matt Arnold RPh - 12/05/2022 1:00 PM EST Images from the original note were not included. Primary Care Pharmacy Visit CC (Reason for Consult): Diabetes Goal: A1c < 8% Collaborating Provider: Dr. Pearce Last Provider Visit: 10/30/22 Angeli Ramirez Case is a 72 year old female presenting for follow up visit in person. [facility]ents [facility]. Patient is presenting today for f/up pharmacotherapy management appointment for diabetes. At PharmDvisit on 04/10, patient reported not utilizing sliding scale as prescribed, discussed utilizing sliding scale in addition to base amount for Humalog. At PharmD visit on 06/10, mealtime insulin was increased. At PharmD visit on 07/11, Jardiance was started and appropriate mealtime insulin dosing was discussed. At PharmD visit on 08/22, patient reported significant dietary changes and improved blood sugars. Unfortunately she did not qualify for any SGLT2i PAPs. Mealtime insulin was reduced and patient counseled on appropriate mngt of lows without over-correcting. At last PharmD visit on 10/24, lunchtime insulin increased and rosuvastatin initiated. At last PCP visit, patient was treated with sinusitis. Subjective: HPI: States she fell off the wagon with her diet. [place] I guess..my fault. Feels more tired and sluggish. Personal goals: Get Bgs closer to the 130s, I'd feel comfortable with that. Current DM Medications: Insulin glargine (Basaglar) 46 units BID Insulin lispro (Humalog) 15-16-15 units + SSI TIDAC Add 0 units if BS(blood sugar) is between 70-150 Add 1 units if BS is between 151-200 Add 2 units if BS is between 201-250 Add 3 units if BS is between 251-300 Add 4 units if BS is between 301-350 Add 5 units if BS is between 351-400 BS > 400, call your physician Past DM medications tried and stopped: Glipizide - hypoglycemia Metformin ER - GI upset Liraglutide - cost-prohibitive; pt felt it did not offer much BG-lowering Trulicity - stomach issues + HIPOLITO GLYCEMIC CONTROL: Preventative Medications: On STEPHANIA/ARB: Yes On Statin: Yes ROS: Patient denies CP, SOB, FREEDMAN, blurred vision, dizziness or lightheadedness Patient denies symptoms of hypoglycemia (sweating, anxiety, palpitations, hunger, and tremor) Patient denies symptoms of hyperglycemia (polyuria, polydipsia, polyphagia) Patient denies potential medication adverse effects DIET/EXERCISE/SOCIAL Hx: Breakfast: piece of whole wheat toast with butter or oatmeal (instant flavored packet); Lunch: fish sandwich from [employer]; grilled cheese at [employer]; salads with veggies Dinner: last night had fish sandwich and bowl broccoli soup Evening snack (~10-11 PM): jeremi crackers, Ritz crackers, cereal, whatever I can get Beverages: water or unsweetened tea MEDICATIONS: Pill bottles are not present Adherence: denies missed doses [facility] Rx coverage: Medicare Part D ([employer]) Affordability: no issues, gets insulins through [facility] PAP Diabetes supplies: [employer] System: pill box ACTIVE PROBLEM LIST Allergic Rhinitis, Cause Unspecified Essential Hypertension, Benign Type 2 Diabetes Mellitus With Stage 3 Chronic Kidney Disease, With Long-Term Current Use of Insulin(Hcc) Acquired Hypothyroidism Symptomatic Menopausal Or Female Climacteric States Gerd (Gastroesophageal Reflux Disease) Diverticulosis of Colon Kidney Stone Elevated Lfts Postmenopausal Atrophic Vaginitis Internal Hemorrhoids Without Mention of Complication Chronic Kidney Disease (Ckd) Stage G3a/A2, Moderately Decreased Glomerular Filtration Rate (Gfr) Between 45-59 Ml/Min/1.73 Square Meter and Albuminuria Creatinine Ratio Between 30-299 Mg/G ([facility]) Class 1 Obesity With Body Mass Index (Bmi) of 32.0 to 32.9 in Adult Dysuria Mixed Hyperlipidemia Ruq Abdominal Pain Gerd Without Esophagitis Pmr (Polymyalgia Rheumatica) ([facility]) Arthritis, Multiple Joint Involvement Hypertension Dyslipidemia Chronic Insomnia Rls (Restless Legs Syndrome) Gout Involving Toe of Right Foot Hypertensive Kidney Disease With Stage 3 Chronic Kidney Disease (Hcc) Type 2 Diabetes Mellitus With Hyperglycemia, With Long-Term Current Use of Insulin (Hcc) Acquired Trigger Finger of Left Ring Finger Osteopenia, Senile Situational Anxiety Vitamin D Deficiency Fatigue Fatty Liver PAST MEDICAL HISTORY Diagnosis Date Advance care planning 04/23/2022 daughter Rebecca Case is medical POA per patient Allergic rhinitis, cause unspecified Allergic rhinitis Arthritis Benign hypertensive heart disease without heart failure BPPV (benign paroxysmal positional vertigo) Chronic kidney disease (CKD) stage G3a/A2, moderately decreased glomerular filtration rate (GFR) between 45-59 mL/min/1.73 square meter and albuminuria creatinine ratio between 30-299 mg/g ([facility]) Diverticulitis Esophageal reflux Fatty liver Fatty liver Fibromyalgia Gastric polyp 07/04/2014 Dr. Spence, needs repeat EGD in 01/01 Gout right great toe Hernia of other specified sites of abdominal cavity without mention of obstruction or gangrene HIATAL Hypertension IBS (irritable bowel syndrome) Irritable bowel syndrome Leiomyoma of uterus Other and unspecified hyperlipidemia PONV (postoperative nausea and vomiting) 03/11/2018 Renal calculi Snoring Type II or unspecified type diabetes mellitus without mention of complication, not stated as uncontrolled Unspecified hemorrhoids without mention of complication Hemorrhoids Unspecified hypothyroidism ALLERGIES Allergen Reactions Crestor [Rosuvastat* Other: See Comments Legs achy Niacin Itching Erythromycin GI Upset Iodine Rash Latex reddness Lescol [Fluvastatin* GI Upset Lipitor [Atorvastat* Intolerance Muscle aching Naprosyn [Naproxen] uncertain Pravastatin Myalgia Arm pain Aeggosh-Hdj-Xhd Red* Intolerance Sulfa (Sulfonamide * Hives Trulicity [Dulaglut* GI Upset Vomiting, diarrhea Hospitalized Vibramycin [Doxycyc* GI Upset Vioxx [Rofecoxib] Swelling Zocor [Simvastatin] uncertain Medication List Medication Directions Comments Action/Plan acetaminophen (TYLENOL) 325 mg tablet Take 2 tablets by mouth every 6 hours as needed for Pain. alcohol swabs padm Apply 1 application to affected area twice daily. USE TO CLEANSE ARE FOR B/S TESTING 1-2 TIMES PER DAY DX:EII.65 amLODIPine (NORVASC) 5 mg tablet Take 1 tablet by mouth once daily. amLODIPine (NORVASC) 5 mg tablet Take 1 tablet by mouth once daily. apremilast (OTEZLA) 30 mg tablet Take 30 mg by mouth once daily. aspirin, enteric coated (ASPIR-LOW) 81 mg EC tablet Take 1 tablet by mouth once daily. benzonatate (TESSALON PERLES) 100 mg capsule Take 1 capsule by mouth three times daily as needed for cough. blood sugar diagnostic (ONETOUCH ULTRA TEST) test strip Test blood sugar 3-4 times daily, DX: E11.65 Insulin: yes Blood-Glucose Meter (ONETOUCH ULTRA2) monitoring kit 1 Each as needed. Test blood sugar 3-4 times daily, DX: E11.65 Insulin: yes busPIRone (BUSPAR) 5 mg tablet Take 1-2 tablets by mouth at bedtime as needed (insomnia). cefdinir (OMNICEF) 300 mg capsule Take 1 capsule by mouth twice daily for 10 days. cholecalciferol (VITAMIN D-3) 2,000 unit tablet Take 2,000 Units by mouth once daily. citalopram (CELEXA) 20 mg tablet Take 1 tablet by mouth once daily. citalopram (CELEXA) 20 mg tablet Take 1 tablet by mouth once daily. citalopram hydrobromide (CELEXA) 10 mg tablet Take 1 tablet by mouth once daily. colchicine (COLCRYS) 0.6 mg tablet Take 1 tablet by mouth once daily for 7 days. For acute gout flare up colchicine (COLCRYS) 0.6 mg tablet Take 1 tablet by mouth twice daily. For acute gout flare up COMPOUNDED PRESCRIPTION BLOOD GLUCOSE METER OF CHOICE TESTING 1-2 TIMES DAILY DX;EII.65 enalapril (VASOTEC) 20 mg tablet Take 1 tablet by mouth once daily. enalapril (VASOTEC) 20 mg tablet Take 1 tablet by mouth twice daily. estradiol (ESTRACE) 0.01 % (0.1 mg/gram) vaginal cream Apply pea-sized amount to urethral opening twice a week. ezetimibe (ZETIA) 10 mg tablet Take 1 tablet by mouth once daily. For cholesterol flash glucose scanning reader (FREESTYLE BETSEY 14 DAY READER) Use to check blood sugar as directed. flash glucose sensor (FREESTYLE BETSEY 14 DAY SENSOR) kit Apply sensor to back of arm to check bloodsugars as directed. Change sensor every 2 weeks and rotate arms. furosemide (LASIX) 20 mg tablet TAKE 1 TABLET BY MOUTH DAILY X3 DAYS, THEN TAKE DAILY NEEDED FORFEET SWELLING. insulin glargine (LANTUS SOLOSTAR, BASAGLAR KWIKPEN) 100 unit/mL (3 mL) Inject 46 units SQ in the AM and 46 units SQ in the evening insulin lispro (HUMALOG KWIKPEN INSULIN) 100 unit/mL Inject 15 units with breakfast, 16 units with lunch, and 15 units with dinner + sliding scale insulin (1 unit for every 50 >150 pts). Gets through [facility]. Discontinued: 12/04/2022 10:28 AM Insulin [place], Disposable, (BD ULTRA-FINE PATRICIO PEN NEEDLE) 32 gauge x Use 4 pen needles daily with Basaglar and Humalog lancets (GMATE LANCETS) 30 gauge [facility] DM2, 250.00, non insulin dependent, testing 1-2 times a day Lancets lancets PT IS TO TEST BLOOD SUGAR 1-2 TIMES PER DAY DX:EII.65 Lancing Device (LANCING DEVICE WITH LANCETS) [facility] Use to test blood sugar as directed. levothyroxine (SYNTHROID) 112 mcg tablet Take 1 tablet by mouth 6 days per week. Take 1/2 tablet bymouth 1 day per week. For thyroid. levothyroxine (SYNTHROID) 112 mcg tablet Take 1 tablet by mouth PO daily in AM. For thyroid. LORazepam (ATIVAN) 2 mg tab Take 1 tablet by mouth at bedtime as needed for up to 30 days. metoprolol tartrate, short acting, (LOPRESSOR) 100 mg tablet Take 1 tablet by mouth twice daily. omeprazole (PRILOSEC) 40 mg capsule TAKE 1 CAPSULE DAILY rosuvastatin (CRESTOR) 5 mg tablet take 1 tablet by mouth at bedtime traZODone (DESYREL) 100 mg tablet Take 1 tablet by mouth daily at bedtime. triamcinolone acetonide (KENALOG) 0.1 % cream Apply 1 application to affected area twice daily. Forrash on right ear, Apply sparingly to area for rash/itching. Objective: Exam: Last 3 Encounter BP Readings: Date: BP: 10/30/2022 136/88 07/29/2022 130/80 04/23/2022 120/70 Wt: 80.7 kg (178 lb) BMI: 32.56 kg/(m^2) LABS: Reviewed Lab Results Component Value Date HBA1C 8.2 10/25/2022 HBA1C 10.1 07/26/2022 HBA1C 9.2 04/18/2022 HBA1C 7.9 06/01/2021 HBA1C 8.5 02/27/2021 HBA1C 8.0 11/03/2020 CMP: Glucose 240 07/26/2022 BUN 13 07/26/2022 Creatinine 1.07 07/26/2022 Sodium 135 07/26/2022 Potassium 4.0 07/26/2022 Chloride 102 07/26/2022 CO2 22 07/26/2022 Protein, Total 7.1 07/26/2022 Albumin 4.1 07/26/2022 Calcium 9.3 07/26/2022 Alkaline Phosphatase 141 07/26/2022 Bilirubin, Total 0.2 07/26/2022 AST 63 07/26/2022 ALT 67 07/26/2022 eGFR 56 (per CMP 07/26/22) Lab Results Component Value Date CHOL 227 10/25/2022 CHOL 213 11/03/2020 CHOL 195 08/03/2020 LDL 150 10/25/2022 LDL 116 11/03/2020 LDL 105 08/03/2020 HDL 39 10/25/2022 HDL 34 11/03/2020 HDL 34 08/03/2020 TG 192 10/25/2022 TG 314 11/03/2020 TG 279 08/03/2020 The 10-year ASCVD risk score (Annette MCNEIL, et al., 2019) is: 30.2% Values used to calculate the score: Age: 72 years Sex: Female Is Non- : No Diabetic: Yes Tobacco smoker: No Systolic Blood Pressure: 136 mmHg Is BP treated: Yes HDL Cholesterol: 39 mg/dL Total Cholesterol: 227 mg/dL Albumin/Creat Ratio (mg/g) Date Value 07/26/2022 48 (H) PHARMACOTHERAPY ASSESSMENT/PLAN: 1. Type 2 diabetes mellitus with stage 3 chronic kidney disease, with long-term current use of insulin, unspecified whether stage 3a or 3b CKD (HCC) - ICD9: 250.40, 585.3, V58.67, ICD10: E11.22, N18.30, Z79.4 A1c goal < 8%; borderline control but improving (last A1c 10.1-->8.2%); CGM report shows worse BG control than last month despite insulin dose increase, patient reports due to worsened diet; inOctober patient was motivated to control Bgs and started eating better and Bgs were significantly improved --> patient has since lost the motivation; she is feeling more fatigued with higher sugars; discussed the need for getting back on track with diet or need to increase insulin, patient optedto increase insulin INCREASE Basaglar to 52 units BID CONTINUE Humalog 15-16-15 units + SSI TIDAC Attempted to use motivational interviewing to encourage better nutrition. Stressed the importance of BG control to prevent long-term complications HbA1c: due 01/23 Follow-up Patient is scheduled to see PCP team on 01/28. Patient to have f/up with PharmD team on 01/16. Patient verbalized understanding of instructions. Matt Arnold PharmD, BCPS Primary Care Clinical Pharmacist The majority of the pharmacy visit (> 50%) was spent counseling and/or coordinating care for thepatient. interaction: face to face time was 30 minutes. documented in this encounterReg[facility]-17-2023 Miscellaneous Notes* Telephone Encounter - Sugar De La Torre Pss - 12/03/2022 12:57 PM EST Patient has been identified by name and date of : Yes Requested Prescriptions Pending Prescriptions Disp Refills Insulin [place], Disposable, (BD ULTRA-FINE PATRICIO PEN NEEDLE) 32 gauge x 5/32 360 Each 3 Sig: Use 4 pen needles daily with Basaglar and Humalog RX INSTRUCTIONS: Pharmacy initiated this request. No need to notify patient. Sugar De La Torre Pss documented in this encounterRegency Hospital [facility]01-12-2023 Miscellaneous Notes* Telephone Encounter - Salma Rodarte RN - 11/28/2022 9:12 AM EST Patient calls and notified of provider instructions. Patient voices understanding. Salma Rodarte RN * Telephone Encounter - Rebecca Baker LPN - 11/28/2022 9:03 AM EST Message left for patient to return call to go over provider's message with her. * Telephone Encounter - Mariano Pearce DO - 11/27/2022 8:25 PM EST Please call patient and let her know that I sent rx in for OMNICEF twice a day with meals to help her symptoms. Let me know in 10-14 days if symptoms aren't improved then I would recommend her being seen again in office at that time Mariano Pearce DO The following approved medication requests have been transmitted electronically. Requested Prescriptions Signed Prescriptions Disp Refills cefdinir (OMNICEF) 300 mg capsule 20 capsule 0 Sig: Take 1 capsule by mouth twice daily for 10 days. Authorizing Provider: MARIANO PEARCE DO * Telephone Encounter - Vanessa Wyatt RN - 11/27/2022 8:34 AM EST Pt reports she is still having a lot of the nasal drainage that is yellow/green. She is also still coughing up yellow green phlegm. States she can't lay down because of all the drainage. She thinks the sinus infection hasn't gone away. Pt denies fever, SOB, wheezing, fatigue, and muscle aches. Pt reports if provider want to send something in for her to use [facility] [place]. * Telephone Encounter - Mariano Pearce DO - 11/27/2022 7:41 AM EST Please call patient today to see how she is feeling. I am sorry this message didn't get to me prior Mariano Pearce DO * Telephone Encounter - Josiane Champagne - 11/12/2022 3:06 PM EST Patient states she was seen on 10-30-22 and was really sick and was prescribed medication and she was getting better but now she states that when blowing nose its really thick and bloody; draining down her throat and that makes her cough. Thinks that maybe she still has infection and wants to see what Dr. Pearce thinks? Another prescription? Contact patient at [phone]. Josiane Champagne documented in this encounterRegency Hospital [facility]12-30-2022 Miscellaneous Notes* Telephone Encounter - Marisol Ramirez LPN - 11/15/2022 2:33 PM EST Patient calling was treated for sinus infection and completed her antibiotic. Patient said she is still blowing lots of bloody thick secretions and has congestion, she was wanting more antibiotics. 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 documented in this encounterRegency Hospital [facility]12-15-2022 Miscellaneous Notes* Telephone Encounter - Rhianna Alvarado Ma - 10/31/2022 11:44 AM EST Patient last visit with PCP 10/30/22 Follow up appointment scheduled 01/28/23 Rhianna Alvarado Ma documented in this encounterRegency Hospital [facility]12-15-2022 Miscellaneous Notes* Telephone Encounter - Matt Arnold RPh - 10/31/2022 11:20 AM EST Patient receives Basaglar through [facility] program. She should have enough supply to last her through the end of the year. We completed paperwork last week to renew her application for 2022. Once approved, she won't be receiving another insulin supply until November 2022. [facility] called patient but unable to reach. LMOM requesting she call the office back with the current supply of medication she has remaining. If she has insufficient supply to last her into the beginning of November, we will either have to contact [employer] to see if they can send additional insulin this month or provide her with a free insulin voucher to last her until she receives her new shipment. Will await patient's call. Matt Arnold PharmD, [facility] Primary Care Clinical Pharmacist * Telephone Encounter - Elli Timmons LPN - 10/31/2022 10:02 AM EST Pt calling and needs refills on her Basaglar insulin. Pt states she filled out paper last week in Matt Arnold's office on 10-24-22 . Please advise pt. Refill goes to [facility]. Marcial instructed pt she needs new prescription. Patient has been identified by name and date of : Yes Patient phones for refill(s): Requested Prescriptions Pending Prescriptions Disp Refills insulin glargine (LANTUS SOLOSTAR, BASAGLAR KWIKPEN) 100 unit/mL (3 mL) Sig: Inject 46 units SQ in the AM and 46 units SQ in the evening Last 2 Encounter Wt Readings: Date: Wt: 10/30/2022 80.7 kg (178 lb) 08/22/2022 81.2 kg (179 lb) Previous labs/tests for medication: Diabetes: Hemoglobin A1C (%) Date Value 10/25/2022 8.2 07/26/2022 10.1 06/01/2021 7.9 02/27/2021 8.5 Please advise. Thank you. Elli Timmons LPN documented in this encounterRegency Hospital [facility]12-15-2022 Evaluation note* Diagnosis Type 2 diabetes mellitus with stage 3 chronic kidney disease, with long-term current use of insulin, unspecified whether stage 3a or 3b CKD (HCC) documented in this encounter [facility]12-14-[facility] History of Present illness Narrative* Mariano Pearce, DO - 10/30/2022 3:07 PM EST Patient presents with: F/U 3 Month HPI: Angeli Rees is a 71 year old female who presents to the office today for review of health conditions. Concerns today Sinus pressure, chest congestion, hoarseness of voice, ear pressure, fatigue, runny nose and post nasal drip. Symptoms started about 3 weeks ago. Unsure of any sick contacts. Was working outside putting up her adry lights and then sick the next day she states. Has tried OTC cold medications without relief. Ms. Rees has past history of diabetes. Since our last visit she denies excessive thirst or increased frequency of urination, chest pain or dyspnea , numbness, tingling or pain in extremities, new or unusual visual symptoms, and low sugar/hypoglycemic reactions. Depression- no. Follows a diabetic diet most of the time. She is compliant with medication(s) and is tolerating med(s) without any side effects. She reports checking her glucose on a three times a day schedule with sugars that fluctuate between 60s to 250s. Patient's last HgA1C was Hemoglobin A1C (%) Date Value 10/25/2022 8.2 07/26/2022 10.1 06/01/2021 7.9 02/27/2021 8.5 ) Last Ophthalmology exam was within the past 12 months Ms. Rees reports history of hyperlipidemia. Current therapy includes ezetimibe (Zetia) 10 mg. Denies side effects of muscle weakness or achiness. Her most recent lipid panels are reviewed. Cholesterol, Total (mg/dL) Date Value 10/25/2022 227 08/03/2020 195 Total Cholesterol, Nonfasting (mg/dL) Date Value 11/03/2020 213 HDL Cholesterol (mg/dL) Date Value 10/25/2022 39 08/03/2020 34 HDL Cholesterol, Nonfasting (mg/dL) Date Value 11/03/2020 34 LDL Cholesterol (mg/dL) Date Value 10/25/2022 150 08/03/2020 105 LDL Cholesterol, Nonfasting (mg/dL) Date Value 11/03/2020 116 Triglyceride (mg/dL) Date Value 10/25/2022 192 08/03/2020 279 Triglycerides, Nonfasting (mg/dL) Date Value 11/03/2020 314 Ms. Rees indicates a history of hypertension and states that she is feeling well and denies any symptoms referable to elevated blood pressure. Specifically denies headache, chest pain, palpitations, dyspnea, and peripheral edema. Patient denies any side effects of her medication(s) and is compliantwith their regimen. Last 3 Encounter BP Readings: Date: BP: 10/30/2022 136/88 07/29/2022 130/80 04/23/2022 120/70 She watches her diet for sodium, low fat and low cholesterol some of the time. She does not check BP's generally. Angeli gets minimal exercise. PAST MEDICAL HISTORY Diagnosis Date Advance care planning 04/23/2022 daughter Rebecca Rees is medical POA per patient Allergic rhinitis, cause unspecified Allergic rhinitis Arthritis Benign hypertensive heart disease without heart failure BPPV (benign paroxysmal positional vertigo) Chronic kidney disease (CKD) stage G3a/A2, moderately decreased glomerular filtration rate (GFR) between 45-59 mL/min/1.73 square meter and albuminuria creatinine ratio between 30-299 mg/g (HCC) Diverticulitis Esophageal reflux Fatty liver Fatty liver Fibromyalgia Gastric polyp 07/04/2014 Dr. Spence, needs repeat EGD in 01/01 Gout right great toe Hernia of other specified sites of abdominal cavity without mention of obstruction or gangrene HIATAL Hypertension IBS (irritable bowel syndrome) Irritable bowel syndrome Leiomyoma of uterus Other and unspecified hyperlipidemia PONV (postoperative nausea and vomiting) 03/11/2018 Renal calculi Snoring Type II or unspecified type diabetes mellitus without mention of complication, not stated as uncontrolled Unspecified hemorrhoids without mention of complication Hemorrhoids Unspecified hypothyroidism PAST SURGICAL HISTORY Procedure Laterality Date APPENDECTOMY APPENDECTOMY COLONOSCOPY FLX DX W/COLLJ SPEC WHEN PFRMD 07/04/14 Colonoscopy, Dr. Spence ESOPHAGOGASTRODUODENOSCOPY TRANSORAL DIAGNOSTIC 07/04/14 EGD, Dr. Spence ESOPHAGOGASTRODUODENOSCOPY TRANSORAL DIAGNOSTIC 05/29/15 EGD LAPS ABD PRTM&OMENTUM DX W/WO SPEC BR/WA SPX 1989 Laparoscopy and scar tissue seen LIG/TRNSXJ FLP TUBE ABDL/VAG APPR UNI/BI Tubal ligation PAST SURGICAL HISTORY OF CARPEL TUNNEL/BILATERAL PAST SURGICAL HISTORY OF 1969 exploratory lap and left salpingectomy for bad infection POLYPECTOMY SNARE STIFF WIRE 07/04/14 gastric TONSILLECTOMY HX TONSILLECTOMY PRIMARY/SECONDARY <AGE 13 Tonsillectomy VAGINAL HYSTERECTOMY VAGINAL HYSTERECTOMY UTERUS 250 GM/< 03/2018 Hysterectomy, vaginal Social History Tobacco Use Smoking status: Never Smokeless tobacco: Never Vaping Use Vaping Use: Never used Substance Use Topics Alcohol use: No Drug use: No FAMILY HISTORY Problem Relation Age of Onset Diabetes Father Hypertension Father Lipids Father Hypertension Mother other (DEMENTIA) Mother Cancer Maternal Grandmother gallbladder Allergies: ALLERGIES Allergen Reactions Crestor [Rosuvastat* Other: See Comments Legs achy Niacin Itching Erythromycin GI Upset Iodine Rash Latex reddness Lescol [Fluvastatin* GI Upset Lipitor [Atorvastat* Intolerance Muscle aching Naprosyn [Naproxen] uncertain Pravastatin Myalgia Arm pain Zrdreyb-Cwb-Nbn Red* Intolerance Sulfa (Sulfonamide * Hives Trulicity [Dulaglut* GI Upset Vomiting, diarrhea Hospitalized Vibramycin [Doxycyc* GI Upset Vioxx [Rofecoxib] Swelling Zocor [Simvastatin] uncertain Current Meds: rosuvastatin (CRESTOR) 5 mg tablet Take 1 tablet by mouth daily at bedtime. insulin lispro (HUMALOG KWIKPEN INSULIN) 100 unit/mL Inject 15 units with breakfast, 16 units with lunch, and 15 units with dinner + sliding scale insulin (1 unit for every 50 >150 pts). Gets [facility]. LORazepam (ATIVAN) 2 mg tab Take 1 tablet by mouth at bedtime as needed for up to 30 days. enalapril (VASOTEC) 20 mg tablet Take 1 tablet by mouth twice daily. levothyroxine (SYNTHROID) 112 mcg tablet Take 1 tablet by mouth PO daily in AM. For thyroid. ezetimibe (ZETIA) 10 mg tablet Take 1 tablet by mouth once daily. For cholesterol citalopram (CELEXA) 20 mg tablet Take 1 tablet by mouth once daily. ezetimibe (ZETIA) 10 mg tablet Take 1 tablet by mouth once daily. amLODIPine (NORVASC) 5 mg tablet Take 1 tablet by mouth once daily. omeprazole (PRILOSEC) 40 mg capsule TAKE 1 CAPSULE DAILY insulin glargine (LANTUS SOLOSTAR, BASAGLAR KWIKPEN) 100 unit/mL (3 mL) Inject 46 units SQ in the AM and 46 units SQ in the evening metoprolol tartrate, short acting, (LOPRESSOR) 100 mg tablet Take 1 tablet by mouth twice daily. enalapril (VASOTEC) 20 mg tablet Take 1 tablet by mouth once daily. levothyroxine (SYNTHROID) 112 mcg tablet Take 1 tablet by mouth 6 days per week. Take 1/2 tablet bymouth 1 day per week. For thyroid. citalopram (CELEXA) 20 mg tablet Take 1 tablet by mouth once daily. citalopram hydrobromide (CELEXA) 10 mg tablet Take 1 tablet by mouth once daily. amLODIPine (NORVASC) 5 mg tablet Take 1 tablet by mouth once daily. triamcinolone acetonide (KENALOG) 0.1 % cream Apply 1 application to affected area twice daily. Forrash on right ear, Apply sparingly to area for rash/itching. colchicine (COLCRYS) 0.6 mg tablet Take 1 tablet by mouth twice daily. For acute gout flare up Insulin [place], Disposable, (BD ULTRA-FINE PATRICIO PEN NEEDLE) 32 gauge x Use 4 pen needles daily with Basaglar and Humalog traZODone (DESYREL) 100 mg tablet Take 1 tablet by mouth daily at bedtime. apremilast (OTEZLA) 30 mg tablet Take 30 mg by mouth once daily. blood sugar diagnostic (ONETOUCH ULTRA TEST) test strip Test blood sugar 3-4 times daily, DX: E11.65 Insulin: yes flash glucose sensor (FREESTYLE BETSEY 14 DAY SENSOR) kit Apply sensor to back of arm to check bloodsugars as directed. Change sensor every 2 weeks and rotate arms. cholecalciferol (VITAMIN D-3) 2,000 unit tablet Take 2,000 Units by mouth once daily. flash glucose scanning reader (FREESTYLE BETSEY 14 DAY READER) Use to check blood sugar as directed. colchicine (COLCRYS) 0.6 mg tablet Take 1 tablet by mouth once daily for 7 days. For acute gout flare up furosemide (LASIX) 20 mg tablet TAKE 1 TABLET BY MOUTH DAILY X3 DAYS, THEN TAKE DAILY NEEDED FORFEET SWELLING. busPIRone (BUSPAR) 5 mg tablet Take 1-2 tablets by mouth at bedtime as needed (insomnia). estradiol (ESTRACE) 0.01 % (0.1 mg/gram) vaginal cream Apply pea-sized amount to urethral opening twice a week. Lancing Device (LANCING DEVICE WITH LANCETS) [facility] Use to test blood sugar as directed. Blood-Glucose Meter (ONETOUCH ULTRA2) monitoring kit 1 Each as needed. Test blood sugar 3-4 times daily, DX: E11.65 Insulin: yes acetaminophen (TYLENOL) 325 mg tablet Take 2 tablets by mouth every 6 hours as needed for Pain. aspirin, enteric coated (ASPIR-LOW) 81 mg EC tablet Take 1 tablet by mouth once daily. COMPOUNDED PRESCRIPTION BLOOD GLUCOSE METER OF CHOICE TESTING 1-2 TIMES DAILY DX;EII.65 Lancets lancets PT IS TO TEST BLOOD SUGAR 1-2 TIMES PER DAY DX:EII.65 alcohol swabs padm Apply 1 application to affected area twice daily. USE TO CLEANSE ARE FOR B/S TESTING 1-2 TIMES PER DAY DX:EII.65 lancets (GMATE LANCETS) 30 gauge [facility] DM2, 250.00, non insulin dependent, testing 1-2 times a day Review of Systems: The remainder of the review of systems is negative. PE: 10/30/22 1457 BP: 136/88 Pulse: 76 Resp: 20 Temp: 36.1 C (97 F) TempSrc: Left Tympanic Weight: 80.7 kg (178 lb) Gen: A&O, NAD, non-toxic appearing, cooperative HEENT: NT/AC, PERRLA, EOMs intact b/l, nares congested, sinus TTP left maxillary sinus, pharynx without erythema, exudate or lesions. Uvula midline. EACs without erythema or debris. TMs with effusionpresent bilaterally Neck: supple, No cervical LAD, no thyromegaly, no carotid bruits CV: RRR, normal S1 and S2, no murmurs, no gallops, no rubs, Pulses 2+ and symmetric in UE and LE b/l Lungs: normal respiratory effort, CTA b/l, no wheezing or rhonchi or rales, coughing Abd: soft, NT, ND, +BS, no hepatosplenomegaly MS: FROM all 4 extremities Neuro: CN II-XII intact b/l Skin: warm, dry, intact, No rashes or lesions on exposed skin. Foot exam: no edema ASSESSMENT/PLAN: 1. Acute non-recurrent maxillary sinusitis - ICD9: 461.0, ICD10: J01.00 (primary diagnosis) - Will begin treatment with as per antibiotic as written, see orders - AMOXICILLIN 875 MG-POTASSIUM CLAVULANATE 125 MG TABLET 2. Acute cough - ICD9: 786.2, ICD10: R05.1 - rx prn as below - BENZONATATE 100 MG CAPSULE 3. Chronic insomnia - ICD9: 780.52, ICD10: F51.04 - rx refilled, chronic - LORAZEPAM 2 MG TABLET 4. Situational anxiety - ICD9: 300.09, ICD10: F41.8 - rx refilled, chronic - LORAZEPAM 2 MG TABLET 5. Hypertension, unspecified type - ICD9: 401.9, ICD10: I10 - good control - Continue current medication(s) - Encouraged dietary sodium restriction/DASH diet - Recommended regular aerobic exercise. - Recommend home blood pressure monitoring, to bring results in on next visit - Goal of BP <130/80 6. Acquired hypothyroidism - ICD9: 244.9, ICD10: E03.9 - Instructed patient on importance of taking on an empty stomach either first thing in the morning or at bedtime. Stable - Behavioral intervention and - Pharmacological intervention 7. Dyslipidemia - ICD9: 272.4, ICD10: E78.5 - suboptimal control - Continue current medication. - Begin treatment with rosuvastatin (Crestor) 10 mg - Encouraged following a low fat, low cholesterol diet. - Discussed the benefits of regular aerobic exercise and weight loss. 8. Type 2 diabetes mellitus with stage 3 chronic kidney disease, with long-term current use of insulin, unspecified whether stage 3a or 3b CKD (HCC) - ICD9: 250.40, 585.3, V58.67, ICD10: E11.22, N18.30, Z79.4 uncontrolled improved control - Continue current medications - Blood glucose monitoring on a three times a day schedule - Encouraged regular aerobic exercise and weight loss - eGFR: Stable - Counseled on avoiding regular use of NSAIDs, adequate hydration, potential risk of IV dye 9. Vitamin B12 deficiency - ICD9: 266.2, ICD10: E53.8 - continue supplement 10. Vitamin D deficiency - ICD9: 268.9, ICD10: E55.9 - continue supplement Mariano Pearce DO To ER if develops chest pain, shortness of breath, or severe worsening of symptoms. Discussed risks, benefits, alternatives, and potential side effects of medications. Patient expressed understanding and agreed with the plan. Mariano Pearce DO [address] [place] [address] documented in this encounterRegency Hospital [facility]12-12-2022 Miscellaneous Notes* Telephone Encounter - Matt Arnold RPh - 10/28/2022 8:38 AM EST Called patient with test results. A1c much improved but still above goal. Showing good progress. Cholesterol panel still elevated but hopefully will improve with initiation of rosuvastatin. No med changes at this time. Patient expressed understanding. PCP f/up scheduled for this week. PharmD f/up in November. Matt Arnold PharmD, BCPS Primary Care Clinical Pharmacist documented in this encounterRegency Hospital [facility]12-08-2022 History of Present illness Narrative* Matt Arnold, [facility] - 10/24/2022 1:30 PM EST Images from the original note were not included. Primary Care Pharmacy Visit CC (Reason for Consult): Diabetes Goal: A1c < 8% Collaborating Provider: Dr. Pearce Last Provider Visit: 07/29/22 Angeli Rees is a 71 year old female presenting for follow up visit in person. [facility] consents [facility]. Patient is presenting today for f/up pharmacotherapy management appointment for diabetes. At PharmDvisit on 04/10, patient reported not utilizing sliding scale as prescribed, discussed utilizing sliding scale in addition to base amount for Humalog. At PharmD visit on 06/10, mealtime insulin was increased. At PharmD visit on 07/11, Jardiance was started and appropriate mealtime insulin dosing was discussed. At last PCP visit, patient reported not being able to afford Jardiance --> PAP application initiated. At last PharmD visit on 08/22, patient reported significant dietary changes and improved blood sugars. Unfortunately she did not qualify for any SGLT2i PAPs. Mealtime insulin was reduced and patient counseled on appropriate mngt of lows without over-correcting. Subjective: HPI: Doesn't think glucometer is working well. FL 14 day is fine, no issues. Feels she is not having as low of blood sugars since insulin was decreased. Can feel low if <80 mg/dL. [place] low walking around [employer], corrected with OJ. Current DM Medications: Insulin glargine (Basaglar) 46 units BID Insulin lispro (Humalog) 15 units + SSI TIDAC Add 0 units if BS(blood sugar) is between 70-150 Add 1 units if BS is between 151-200 Add 2 units if BS is between 201-250 Add 3 units if BS is between 251-300 Add 4 units if BS is between 301-350 Add 5 units if BS is between 351-400 BS > 400, call your physician Past DM medications tried and stopped: Glipizide - hypoglycemia Metformin ER - GI upset Liraglutide - cost-prohibitive; pt felt it did not offer much BG-lowering Trulicity - stomach issues + HIPOLITO GLYCEMIC CONTROL: Preventative Medications: On STEPHANIA/ARB: Yes On Statin: No ROS: Patient denies CP, SOB, FREEDMAN, blurred vision, dizziness or lightheadedness Patient denies symptoms of hypoglycemia (sweating, anxiety, palpitations, hunger, and tremor) Patient denies symptoms of hyperglycemia (polyuria, polydipsia, polyphagia) Patient denies potential medication adverse effects DIET/EXERCISE/SOCIAL Hx: Has had a lot of sweets recently, lots of birthdays and baking for [place] Exercise: feels she is more active around the house with decorating and prepping for [place] MEDICATIONS: Pill bottles are not present Adherence: denies missed doses Pharmacy: [facility] or [facility] Rx coverage: Medicare Part D ([employer]) Affordability: no issues, gets insulins through [facility] Diabetes supplies: [employer] System: pill box ACTIVE PROBLEM LIST Allergic Rhinitis, Cause Unspecified Essential Hypertension, Benign Type 2 Diabetes Mellitus With Stage 3 Chronic Kidney Disease, With Long-Term Current Use of Insulin(Hcc) Acquired Hypothyroidism Symptomatic Menopausal Or Female Climacteric States Gerd (Gastroesophageal Reflux Disease) Diverticulosis of Colon Kidney Stone Elevated Lfts Postmenopausal Atrophic Vaginitis Internal Hemorrhoids Without Mention of Complication Chronic Kidney Disease (Ckd) Stage G3a/A2, Moderately Decreased Glomerular Filtration Rate (Gfr) Between 45-59 Ml/Min/1.73 Square Meter and Albuminuria Creatinine Ratio Between 30-299 Mg/G (Hcc) Obesity, Class I, Bmi 30-34.9 Dysuria Mixed Hyperlipidemia Ruq Abdominal Pain Gerd Without Esophagitis Pmr (Polymyalgia Rheumatica) (Hcc) Arthritis, Multiple Joint Involvement Hypertension Dyslipidemia Chronic Insomnia Rls (Restless Legs Syndrome) Gout Involving Toe of Right Foot Hypertensive Kidney Disease With Stage 3 Chronic Kidney Disease (Hcc) Uncontrolled Type 2 Diabetes Mellitus With Hyperglycemia (Hcc) Acquired Trigger Finger of Left Ring Finger Osteopenia, Senile Situational Anxiety Vitamin D Deficiency Fatigue Fatty Liver PAST MEDICAL HISTORY Diagnosis Date Advance care planning 04/23/2022 daughter Rebecca Case is medical POA per patient Allergic rhinitis, cause unspecified Allergic rhinitis Arthritis Benign hypertensive heart disease without heart failure BPPV (benign paroxysmal positional vertigo) Chronic kidney disease (CKD) stage G3a/A2, moderately decreased glomerular filtration rate (GFR) between 45-59 mL/min/1.73 square meter and albuminuria creatinine ratio between 30-299 mg/g (HCC) Diverticulitis Esophageal reflux Fatty liver Fatty liver Fibromyalgia Gastric polyp 07/04/2014 Dr. Spence, needs repeat EGD in 01/01 Gout right great toe Hernia of other specified sites of abdominal cavity without mention of obstruction or gangrene HIATAL Hypertension IBS (irritable bowel syndrome) Irritable bowel syndrome Leiomyoma of uterus Other and unspecified hyperlipidemia PONV (postoperative nausea and vomiting) 03/11/2018 Renal calculi Snoring Type II or unspecified type diabetes mellitus without mention of complication, not stated as uncontrolled Unspecified hemorrhoids without mention of complication Hemorrhoids Unspecified hypothyroidism ALLERGIES Allergen Reactions Crestor [Rosuvastat* Other: See Comments Legs achy Niacin Itching Erythromycin GI Upset Iodine Rash Latex reddness Lescol [Fluvastatin* GI Upset Lipitor [Atorvastat* Intolerance Muscle aching Naprosyn [Naproxen] uncertain Pravastatin Myalgia Arm pain Rkrquft-Tzb-Frb Red* Intolerance Sulfa (Sulfonamide * Hives Trulicity [Dulaglut* GI Upset Vomiting, diarrhea Hospitalized Vibramycin [Doxycyc* GI Upset Vioxx [Rofecoxib] Swelling Zocor [Simvastatin] uncertain Medication List Medication Directions Comments Action/Plan acetaminophen (TYLENOL) 325 mg tablet Take 2 tablets by mouth every 6 hours as needed for Pain. alcohol swabs padm Apply 1 application to affected area twice daily. USE TO CLEANSE ARE FOR B/S TESTING 1-2 TIMES PER DAY DX:EII.65 amLODIPine (NORVASC) 5 mg tablet Take 1 tablet by mouth once daily. amLODIPine (NORVASC) 5 mg tablet Take 1 tablet by mouth once daily. apremilast (OTEZLA) 30 mg tablet Take 30 mg by mouth once daily. aspirin, enteric coated (ASPIR-LOW) 81 mg EC tablet Take 1 tablet by mouth once daily. blood sugar diagnostic (ONETOUCH ULTRA TEST) test strip Test blood sugar 3-4 times daily, DX: E11.65 Insulin: yes Blood-Glucose Meter (ONETOUCH ULTRA2) monitoring kit 1 Each as needed. Test blood sugar 3-4 times daily, DX: E11.65 Insulin: yes busPIRone (BUSPAR) 5 mg tablet Take 1-2 tablets by mouth at bedtime as needed (insomnia). cholecalciferol (VITAMIN D-3) 2,000 unit tablet Take 2,000 Units by mouth once daily. citalopram (CELEXA) 20 mg tablet Take 1 tablet by mouth once daily. citalopram (CELEXA) 20 mg tablet Take 1 tablet by mouth once daily. citalopram hydrobromide (CELEXA) 10 mg tablet Take 1 tablet by mouth once daily. colchicine (COLCRYS) 0.6 mg tablet Take 1 tablet by mouth once daily for 7 days. For acute gout flare up colchicine (COLCRYS) 0.6 mg tablet Take 1 tablet by mouth twice daily. For acute gout flare up COMPOUNDED PRESCRIPTION BLOOD GLUCOSE METER OF CHOICE TESTING 1-2 TIMES DAILY DX;EII.65 enalapril (VASOTEC) 20 mg tablet Take 1 tablet by mouth once daily. enalapril (VASOTEC) 20 mg tablet Take 1 tablet by mouth twice daily. estradiol (ESTRACE) 0.01 % (0.1 mg/gram) vaginal cream Apply pea-sized amount to urethral opening twice a week. ezetimibe (ZETIA) 10 mg tablet Take 1 tablet by mouth once daily. For cholesterol ezetimibe (ZETIA) 10 mg tablet Take 1 tablet by mouth once daily. flash glucose scanning reader ([employer] BETSEY 14 DAY READER) Use to check blood sugar as directed. flash glucose sensor (FREESTYLE BETSEY 14 DAY SENSOR) kit Apply sensor to back of arm to check bloodsugars as directed. Change sensor every 2 weeks and rotate arms. furosemide (LASIX) 20 mg tablet TAKE 1 TABLET BY MOUTH DAILY X3 DAYS, THEN TAKE DAILY NEEDED FORFEET SWELLING. insulin glargine (LANTUS SOLOSTAR, BASAGLAR KWIKPEN) 100 unit/mL (3 mL) Inject 46 units SQ in the AM and 46 units SQ in the evening insulin lispro (HUMALOG KWIKPEN INSULIN) 100 unit/mL Inject 15 Units subcutaneously three times daily before meals. Insulin [place], Disposable, (BD ULTRA-FINE PATRICIO PEN NEEDLE) 32 gauge x Use 4 pen needles daily with Basaglar and Humalog lancets (GMATE LANCETS) 30 gauge [facility] DM2, 250.00, non insulin dependent, testing 1-2 times a day Lancets lancets PT IS TO TEST BLOOD SUGAR 1-2 TIMES PER DAY DX:EII.65 Lancing Device (LANCING DEVICE WITH LANCETS) [facility] Use to test blood sugar as directed. levothyroxine (SYNTHROID) 112 mcg tablet Take 1 tablet by mouth 6 days per week. Take 1/2 tablet bymouth 1 day per week. For thyroid. levothyroxine (SYNTHROID) 112 mcg tablet Take 1 tablet by mouth PO daily in AM. For thyroid. LORazepam (ATIVAN) 2 mg tab Take 1 tablet by mouth at bedtime as needed for up to 30 days. metoprolol tartrate, short acting, (LOPRESSOR) 100 mg tablet Take 1 tablet by mouth twice daily. omeprazole (PRILOSEC) 40 mg capsule TAKE 1 CAPSULE DAILY traZODone (DESYREL) 100 mg tablet Take 1 tablet by mouth daily at bedtime. triamcinolone acetonide (KENALOG) 0.1 % cream Apply 1 application to affected area twice daily. Forrash on right ear, Apply sparingly to area for rash/itching. Objective: Exam: Last 3 Encounter BP Readings: Date: BP: 07/29/2022 130/80 04/23/2022 120/70 12/24/2021 128/64 Wt: 81.2 kg (179 lb) BMI: 32.74 kg/(m^2) LABS: Reviewed Lab Results Component Value Date HBA1C 10.1 07/26/2022 HBA1C 9.2 04/18/2022 HBA1C 9.1 01/30/2022 HBA1C 7.9 06/01/2021 HBA1C 8.5 02/27/2021 HBA1C 8.0 11/03/2020 CMP: Glucose 240 07/26/2022 BUN 13 07/26/2022 Creatinine 1.07 07/26/2022 Sodium 135 07/26/2022 Potassium 4.0 07/26/2022 Chloride 102 07/26/2022 CO2 22 07/26/2022 Protein, Total 7.1 07/26/2022 Albumin 4.1 07/26/2022 Calcium 9.3 07/26/2022 Alkaline Phosphatase 141 07/26/2022 Bilirubin, Total 0.2 07/26/2022 AST 63 07/26/2022 ALT 67 07/26/2022 eGFR 56 (per CMP 07/26/22) Lab Results Component Value Date CHOL 231 07/26/2022 CHOL 213 11/03/2020 CHOL 195 08/03/2020 LDL 134 07/26/2022 LDL 116 11/03/2020 LDL 105 08/03/2020 HDL 31 07/26/2022 HDL 34 11/03/2020 HDL 34 08/03/2020 TG 331 07/26/2022 TG 314 11/03/2020 TG 279 08/03/2020 The 10-year ASCVD risk score (Annette MCNEIL, et al., 2019) is: 27.1% Values used to calculate the score: Age: 71 years Sex: Female Is Non- : No Diabetic: Yes Tobacco smoker: No Systolic Blood Pressure: 130 mmHg Is BP treated: Yes HDL Cholesterol: 31 mg/dL Total Cholesterol: 231 mg/dL Albumin/Creat Ratio (mg/g) Date Value 07/26/2022 48 (H) PHARMACOTHERAPY ASSESSMENT/PLAN: 1. Type 2 diabetes mellitus with stage 3 chronic kidney disease, with long-term current use of insulin, unspecified whether stage 3a or 3b CKD (HCC) - ICD9: 250.40, 585.3, V58.67, ICD10: E11.22, N18.30, Z79.4 A1c goal < 8%; uncontrolled (last A1c 10.1%); CGM report shows elevated Bgs compared to last appt which patient attributes to recent birthday and holiday baking; patient still motivated to controlBgs and work on diet; having frequent PPG elevations after lunch so will slightly increase lunchtime insulin today; will f/up in ~1 month INCREASE lunchtime Humalog to 16 units + SSI (new regimen is Humalog 15-16-15 units + SSI TIDAC) CONTINUE Basaglar 46 units BID HbA1c: due 10/25/22 2. Dyslipidemia - ICD9: 272.4, ICD10: E78.5 Pt is indicated for statin for primary prevention d/t diabetes, LDL>70 and ASCVD-10 year risk score of 27%; last LDL (134 mg/dL) is very elevated; also with fatty liver and needs improved cholesterol levels; has hx of many statin intolerances; reportedly tried rosuvastatin in the past but it was>10 years ago, patient recalls myalgias; is not at goal; discussed benefits of statin and patient is agreeable to try low-dose rosuvastatin; LFTs sufficient for use INITIATE rosuvastatin 5mg daily Warned patient of possible leg/muscle aches with medication. Informed that if muscle pains return she may stop medication but needs to contact PCP office. If doesn't tolerate 5mg daily, can also try 2.5mg daily or 5mg every other day Lipid panel in 1 mo CONTINUE ezetimibe 10mg daily Follow-up Patient is scheduled to see PCP team on 10/30. Patient to have f/up with PharmD team on 12/05/22. Patient verbalized understanding of instructions. Matt Arnold PharmD, [facility] Primary Care Clinical Pharmacist The majority of the pharmacy visit (> 50%) was spent counseling and/or coordinating care for thepatient. interaction: face to face time was 25 minutes. documented in this [facility]Reg[facility]22 Instructions* Patient Instructions* Matt Arnold RPh - 10/24/2022 1:30 PM EST INCREASE lunchtime dose of Humalog to 16 units. Continue with sliding scale. New Humalog dosin units with breakfast, 16 units with lunch, 15 units with dinner (all with added sliding scale). Start scanning your meter right before you go to bed. Contact PharmD if you have issues with low blood sugars. START Rosuvastatin 5mg daily. If you start to develop worsened muscle aches/cramping, you can stop medication but let me know. documented in this encounterRegency [facility]12-08-2022 Evaluation note* Diagnosis Type 2 diabetes mellitus with stage 3 chronic kidney disease, with long-term current use of insulin, unspecified whether stage 3a or 3b CKD (HCC)- Primary Dyslipidemia Other and unspecified hyperlipidemia documented in this encounter [facility]-01-[facility] Miscellaneous Notes* Telephone Encounter - Matt Arnold RPh - 10/17/2022 12:37 PM EST PAP technicans completed PAP application for Basaglar and Humalog. Patient coming in for appt on 10/24 for signature. PCP portion of application placed on PCP's desk. Matt Arnold PharmD, [facility] Primary Care Clinical Pharmacist documented in this encounterRegency [facility]11-28-2022 Miscellaneous Notes* Telephone Encounter - Demetra Navarrete APRN.CNP - 10/14/2022 11:54 AM EST The following approved medication requests have been transmitted electronically. Requested Prescriptions Signed Prescriptions Disp Refills LORazepam (ATIVAN) 2 mg tab 30 tablet 1 Sig: Take 1 tablet by mouth at bedtime as needed for up to 30 days. Authorizing Provider: DEMETRA NAVARRETE APRN.CNP PDMP website checked and validated. All prescriptions have been APPROPRIATELY filled. No suspiciousactivity was identified. 10/14/2022 by Demetra Navarrete CNP. * Telephone Encounter - Zita Vaughan RN - 10/14/2022 11:26 AM EST Patient has been identified by name and date of : Yes Patient phones for refill(s): Requested Prescriptions Pending Prescriptions Disp Refills LORazepam (ATIVAN) 2 mg tab 30 tablet 1 Sig: Take 1 tablet by mouth at bedtime as needed for up to 30 days. Date of last office visit with pcp: 07/29/2022 Future appt: 10/30/2022 Last 2 Encounter Wt Readings: Date: Wt: 08/22/2022 81.2 kg (179 lb) 07/29/2022 80.7 kg (178 lb) Previous labs/tests for medication: Blood Pressure: BUN (mg/dL) Date Value 07/26/2022 13 06/01/2021 18 Sodium (mmol/L) Date Value 07/26/2022 135 06/01/2021 135 Last 1 Encounter BP Readings: Date: BP: 07/29/2022 130/80 Liver Function: ALT (U/L) Date Value 07/26/2022 67 06/01/2021 42 AST (U/L) Date Value 07/26/2022 63 06/01/2021 41 Please advise. Thank you. Zita Vaughan RN documented in this encounterRegency [facility]11-07-2022 Miscellaneous Notes* Telephone Encounter - Kim Love LPN - 09/23/2022 1:10 PM EST Fany--07/29/22 Nov--10/30/22 Last refill--02/07/22 180 with 3 refills Last labs--08/22/22 * Telephone Encounter - Josiane Champagne - 09/23/2022 12:02 PM EST Patient has been identified by name and date of : Yes Requested Prescriptions Pending Prescriptions Disp Refills enalapril (VASOTEC) 20 mg tablet 180 tablet 3 Sig: Take 1 tablet by mouth twice daily. RX INSTRUCTIONS: Patient aware RX will be sent to pharmacy. No need to notify patient. Josiane Champagne documented in this encounterRegency [facility]10-19-2022 Miscellaneous Notes* Telephone Encounter - Kim Love LPN - 09/04/2022 12:06 PM EDT Fany--07/29/22 Nov--10/30/22 Last refill--04/23/22 90 with 3 refills Last labs--08/22/22 * Telephone Encounter - Josiane Champagne - 09/04/2022 9:06 AM EDT Patient has been identified by name and date of : Yes Requested Prescriptions Pending Prescriptions Disp Refills levothyroxine (SYNTHROID) 112 mcg tablet 90 tablet 3 Sig: Take 1 tablet by mouth PO daily in AM. For thyroid. RX INSTRUCTIONS: Patient aware RX will be sent to pharmacy. No need to notify patient. Josiane Champagne documented in this encounterRegency [facility]10-12-2022 Miscellaneous Notes* Telephone Encounter - Rebecca Dhiloln LPN - 08/28/2022 4:56 PM EDT Pt called to report ref[facility]ia [facility] & shedoes not know that pharmacy at all. Pt states she uses [facility] & is requesting refills to go there. Pt has not taken zetia X 1 month because of the mix up in pharmacy. Pt is requesting a 30 day refill for zetia to [facility] with [facility]. Please notify pt when Rx has been sent Rebecca Dhillon LPN documented in this encounterRegency [facility]10-06-2022 History of Present illness Narrative* Matt Cheney, [facility] - 08/22/2022 2:00 PM EDT Images from the original note were not included. Primary Care Pharmacy Visit CC (Reason for Consult): Diabetes Goal: A1c < 8% Collaborating Provider: Dr. Pearce Last Provider Visit: 07/29/22 Angeli Ramirez Case is a 71 year old female presenting for follow up visit in person. [facility] consents [facility] collaborative practice agreement. Patient is presenting today for f/up pharmacotherapy management appointment for diabetes. At PharmDvisit on 04/10, patient reported not utilizing sliding scale as prescribed, discussed utilizing sliding scale in addition to base amount for Humalog. At PharmD visit on 06/10, mealtime insulin was increased. At last PharmD visit on 07/11, Jardiance was started and appropriate mealtime insulin dosing wa s discussed. At last PCP visit, patient reported not being able to afford Jardiance --> PAP application initiated. Subjective: HPI: Patient has made a lot of lifestyle modifications since last visit (see below). Her 2 children haveDM and were diagnosed recently with eye problems that were the result of diabetes. One had to get shots in his eye, she doesn't want to go through that pain. It scared me. Having slightly more energy. No change in frequency of urination. No change in thirst or dry mouth. No vision changes. Has PAP application for Jardiance. Income is above the eligibility limits (also makes too much for [employer]) Current DM Medications: Empagliflozin (Jardiance) 10mg daily (didn't start, can't afford) Insulin glargine (Basaglar) 46 units BID Insulin lispro (Humalog) 16 units + SSI TIDAC Add 0 units if BS(blood sugar) is between 70-150 Add 1 units if BS is between 151-200 Add 2 units if BS is between 201-250 Add 3 units if BS is between 251-300 Add 4 units if BS is between 301-350 Add 5 units if BS is between 351-400 BS > 400, call your physician Past DM medications tried and stopped: Glipizide - hypoglycemia Metformin ER - GI upset Liraglutide - cost-prohibitive; pt felt it did not offer much BG-lowering Trulicity - stomach issues + HIPOLITO GLYCEMIC CONTROL: Hypoglycemia: will feel low below 80 mg/dL; last night she felt low around 77 mg/dL; corrected withOJ (no effect), then Root Beer (no effect), then ate a Ho- Ho and BG spiked into 300s Preventative Medications: On STEPHANIA/ARB: Yes On Statin: No ROS: Patient denies CP, SOB, FREEDMAN, blurred vision, dizziness or lightheadedness Patient denies symptoms of hypoglycemia (sweating, anxiety, palpitations, hunger, and tremor) Patient denies symptoms of hyperglycemia (polyuria, polydipsia, polyphagia) Patient denies potential medication adverse effects DIET/EXERCISE/SOCIAL Hx: Started walking daily (walking about 3x/week for 15-20 mins) Drinking more water Avoiding bread I live on hard-boiled eggs Stopped eating junk food and pastries Not drinking any pop Beverages: water, tea sweetened with Stevia MEDICATIONS: Pill bottles are not present Adherence: denies missed doses [facility] Rx coverage: Medicare Part D ([employer]) Affordability: no issues, gets insulins through [employer] PAP Diabetes supplies: [employer] System: pill box ACTIVE PROBLEM LIST Allergic Rhinitis, Cause Unspecified Essential Hypertension, Benign Type 2 Diabetes Mellitus With Stage 3 Chronic Kidney Disease, With Long-Term Current Use of Insulin(Hcc) Acquired Hypothyroidism Symptomatic Menopausal Or Female Climacteric States Gerd (Gastroesophageal Reflux Disease) Diverticulosis of Colon Kidney Stone Elevated Lfts Postmenopausal Atrophic Vaginitis Internal Hemorrhoids Without Mention of Complication Chronic Kidney Disease (Ckd) Stage G3a/A2, Moderately Decreased Glomerular Filtration Rate (Gfr) Between 45-59 Ml/Min/1.73 Square Meter and Albuminuria Creatinine Ratio Between 30-299 Mg/G (Hcc) Obesity, Class I, Bmi 30-34.9 Dysuria Mixed Hyperlipidemia Ruq Abdominal Pain Gerd Without Esophagitis Pmr (Polymyalgia Rheumatica) (Hcc) Arthritis, Multiple Joint Involvement Hypertension Dyslipidemia Chronic Insomnia Rls (Restless Legs Syndrome) Gout Involving Toe of Right Foot Hypertensive Kidney Disease With Stage 3 Chronic Kidney Disease (Hcc) Uncontrolled Type 2 Diabetes Mellitus With Hyperglycemia (Hcc) Acquired Trigger Finger of Left Ring Finger Osteopenia, Senile Situational Anxiety Vitamin D Deficiency Fatigue Fatty Liver PAST MEDICAL HISTORY Diagnosis Date Advance care planning 04/23/2022 daughter Rebecca Case is medical POA per patient Allergic rhinitis, cause unspecified Allergic rhinitis Arthritis Benign hypertensive heart disease without heart failure BPPV (benign paroxysmal positional vertigo) Chronic kidney disease (CKD) stage G3a/A2, moderately decreased glomerular filtration rate (GFR) between 45-59 mL/min/1.73 square meter and albuminuria creatinine ratio between 30-299 mg/g (HCC) Diverticulitis Esophageal reflux Fatty liver Fatty liver Fibromyalgia Gastric polyp 07/04/2014 Dr. Spence, needs repeat EGD in 01/01 Gout right great toe Hernia of other specified sites of abdominal cavity without mention of obstruction or gangrene HIATAL Hypertension IBS (irritable bowel syndrome) Irritable bowel syndrome Leiomyoma of uterus Other and unspecified hyperlipidemia PONV (postoperative nausea and vomiting) 03/11/2018 Renal calculi Snoring Type II or unspecified type diabetes mellitus without mention of complication, not stated as uncontrolled Unspecified hemorrhoids without mention of complication Hemorrhoids Unspecified hypothyroidism Past medical, family and social history reviewed and updated. ALLERGIES Allergen Reactions Crestor [Rosuvastat* Other: See Comments Legs achy Niacin Itching Erythromycin GI Upset Iodine Rash Latex reddness Lescol [Fluvastatin* GI Upset Lipitor [Atorvastat* Intolerance Muscle aching Naprosyn [Naproxen] uncertain Pravastatin Myalgia Arm pain Khvcjcq-Pch-Kjw Red* Intolerance Sulfa (Sulfonamide * Hives Trulicity [Dulaglut* GI Upset Vomiting, diarrhea Hospitalized Vibramycin [Doxycyc* GI Upset Vioxx [Rofecoxib] Swelling Zocor [Simvastatin] uncertain Medication List Medication Directions Comments Action/Plan acetaminophen (TYLENOL) 325 mg tablet Take 2 tablets by mouth every 6 hours as needed for Pain. alcohol swabs padm Apply 1 application to affected area twice daily. USE TO CLEANSE ARE FOR B/S TESTING 1-2 TIMES PER DAY DX:EII.65 amLODIPine (NORVASC) 5 mg tablet Take 1 tablet by mouth once daily. amLODIPine (NORVASC) 5 mg tablet Take 1 tablet by mouth once daily. apremilast (OTEZLA) 30 mg tablet Take 30 mg by mouth once daily. aspirin, enteric coated (ASPIR-LOW) 81 mg EC tablet Take 1 tablet by mouth once daily. blood sugar diagnostic (ONETOUCH ULTRA TEST) test strip Test blood sugar 3-4 times daily, DX: E11.65 Insulin: yes Blood-Glucose Meter (ONETOUCH ULTRA2) monitoring kit 1 Each as needed. Test blood sugar 3-4 times daily, DX: E11.65 Insulin: yes busPIRone (BUSPAR) 5 mg tablet Take 1-2 tablets by mouth at bedtime as needed (insomnia). cholecalciferol (VITAMIN D-3) 2,000 unit tablet Take 2,000 Units by mouth once daily. citalopram (CELEXA) 20 mg tablet Take 1 tablet by mouth once daily. citalopram (CELEXA) 20 mg tablet Take 1 tablet by mouth once daily. citalopram hydrobromide (CELEXA) 10 mg tablet Take 1 tablet by mouth once daily. colchicine (COLCRYS) 0.6 mg tablet Take 1 tablet by mouth once daily for 7 days. For acute gout flare up colchicine (COLCRYS) 0.6 mg tablet Take 1 tablet by mouth twice daily. For acute gout flare up COMPOUNDED PRESCRIPTION BLOOD GLUCOSE METER OF CHOICE TESTING 1-2 TIMES DAILY DX;EII.65 empagliflozin (JARDIANCE) 10 mg tablet Take 1 tablet by mouth daily with breakfast. enalapril (VASOTEC) 20 mg tablet Take 1 tablet by mouth twice daily. enalapril (VASOTEC) 20 mg tablet Take 1 tablet by mouth once daily. estradiol (ESTRACE) 0.01 % (0.1 mg/gram) vaginal cream Apply pea-sized amount to urethral opening twice a week. ezetimibe (ZETIA) 10 mg tablet Take 1 tablet by mouth once daily. For cholesterol flash glucose scanning reader (FREESTYLE BETSEY 14 DAY READER) Use to check blood sugar as directed. flash glucose sensor (FREESTYLE BETSEY 14 DAY SENSOR) kit Apply sensor to back of arm to check bloodsugars as directed. Change sensor every 2 weeks and rotate arms. furosemide (LASIX) 20 mg tablet TAKE 1 TABLET BY MOUTH DAILY X3 DAYS, THEN TAKE DAILY NEEDED FORFEET SWELLING. insulin glargine (LANTUS SOLOSTAR, BASAGLAR KWIKPEN) 100 unit/mL (3 mL) Inject 46 units SQ in the AM and 46 units SQ in the evening insulin lispro (HUMALOG KWIKPEN INSULIN) 100 unit/mL Inject 16 Units subcutaneously three times daily before meals. Insulin [place], Disposable, (BD ULTRA-FINE PATRICIO PEN NEEDLE) 32 gauge x Use 4 pen needles daily with Basaglar and Humalog lancets (GMATE LANCETS) 30 gauge [facility] DM2, 250.00, non insulin dependent, testing 1-2 times a day Lancets lancets PT IS TO TEST BLOOD SUGAR 1-2 TIMES PER DAY DX:EII.65 Lancing Device (LANCING DEVICE WITH LANCETS) [facility] Use to test blood sugar as directed. levothyroxine (SYNTHROID) 112 mcg tablet Take 1 tablet by mouth 6 days per week. Take 1/2 tablet bymouth 1 day per week. For thyroid. levothyroxine (SYNTHROID) 112 mcg tablet Take 1 tablet by mouth PO daily in AM. For thyroid. Discontinued: 08/12/2022 3:22 PM Discontinued: 08/14/2022 12:05 PM LORazepam (ATIVAN) 2 mg tab Take 1 tablet by mouth at bedtime as needed for up to 30 days. metoprolol tartrate, short acting, (LOPRESSOR) 100 mg tablet Take 1 tablet by mouth twice daily. omeprazole (PRILOSEC) 40 mg capsule TAKE 1 CAPSULE DAILY traZODone (DESYREL) 100 mg tablet Take 1 tablet by mouth daily at bedtime. triamcinolone acetonide (KENALOG) 0.1 % cream Apply 1 application to affected area twice daily. Forrash on right ear, Apply sparingly to area for rash/itching. Objective: Exam: Last 3 Encounter BP Readings: Date: BP: 07/29/2022 130/80 04/23/2022 120/70 12/24/2021 128/64 Wt: 80.7 kg (178 lb) BMI: 32.56 kg/(m^2) LABS: Reviewed Lab Results Component Value Date HBA1C 10.1 07/26/2022 HBA1C 9.2 04/18/2022 HBA1C 9.1 01/30/2022 HBA1C 7.9 06/01/2021 HBA1C 8.5 02/27/2021 HBA1C 8.0 11/03/2020 CMP: Glucose 240 07/26/2022 BUN 13 07/26/2022 Creatinine 1.07 07/26/2022 Sodium 135 07/26/2022 Potassium 4.0 07/26/2022 Chloride 102 07/26/2022 CO2 22 07/26/2022 Protein, Total 7.1 07/26/2022 Albumin 4.1 07/26/2022 Calcium 9.3 07/26/2022 Alkaline Phosphatase 141 07/26/2022 Bilirubin, Total 0.2 07/26/2022 AST 63 07/26/2022 ALT 67 07/26/2022 eGFR 56 (per CMP 07/26/22) Lab Results Component Value Date CHOL 231 07/26/2022 CHOL 213 11/03/2020 CHOL 195 08/03/2020 LDL 134 07/26/2022 LDL 116 11/03/2020 LDL 105 08/03/2020 HDL 31 07/26/2022 HDL 34 11/03/2020 HDL 34 08/03/2020 TG 331 07/26/2022 TG 314 11/03/2020 TG 279 08/03/2020 The 10-year ASCVD risk score (Annette MCNEIL, et al., 2019) is: 27.1% Values used to calculate the score: Age: 71 years Sex: Female Is Non- : No Diabetic: Yes Tobacco smoker: No Systolic Blood Pressure: 130 mmHg Is BP treated: Yes HDL Cholesterol: 31 mg/dL Total Cholesterol: 231 mg/dL Albumin/Creat Ratio (mg/g) Date Value 07/26/2022 48 (H) PHARMACOTHERAPY ASSESSMENT/PLAN: 1. Type 2 diabetes mellitus with stage 3 chronic kidney disease, with long-term current use of insulin, unspecified whether stage 3a or 3b CKD (HCC) - ICD9: 250.40, 585.3, V58.67, ICD10: E11.22, N18.30, Z79.4 A1c goal < 8%; uncontrolled (last A1c 10.1%); CGM report is significantly improved with recentlylifestyle modifications; patient has slightly more energy as a result; never started Jardiance due to cost; does not meet financial eligibility criteria for Jardiance or Farxiga PAP; patient having occasional lows and over-correcting; will decrease mealtime insulin, encourage more consistent meals,and counseled on appropriate hypoglycemia mngt; will f/up after next labwork and PCP visit DECREASE Humalog to 15 units + SSI TIDAC CONTINUE Basaglar 46 units BID Removed Jardiance from med list Advised to contact PharmD once gets paperwork for addwish application renewal Applauded on lifestyle modifications!!! Encouraged her to get a work out ignacio to help keep herself accountable for exercising during the colder months HbA1c: due 10/25 Follow-up Patient is scheduled to see PCP team on 10/30. Patient to have f/up with PharmD team on 11/28/22. Patient verbalized understanding of instructions. Matt Arnold PharmD, [facility] Primary Care Clinical Pharmacist The majority of the pharmacy visit (> 50%) was spent counseling and/or coordinating care for thepatient. interaction: face to face time was 33 minutes. documented in this encounterReg[facility]-2022 Instructions* Patient Instructions* Matt Arnold RPh - 08/22/2022 2:00 PM EDT GREAT JOB WORKING ON ALL OF THE CHANGES!!! Keep exercising! Keep avoiding junk food! You are doing great!!! Be careful not to over-correct for low blood sugars. Refer to handout provided to you today. DECREASE base dose of Humalog to 15 units + sliding scale with meals. Do NOT skip meals. If you plan to skip a meal, at least have a small snack. No need to take Humalogif just having a snack. documented in this encounterRegency [facility]10-06-2022 Miscellaneous Notes* Addendum Note - Matt Arnold [facility] - 08/22/2022 2:00 PM EDTAddended by: MATT ARNOLD on: 08/22/2022 02:55 PM Modules accepted: Orders documented in this encounterRegency [facility]10-06-2022 Evaluation note* Diagnosis Type 2 diabetes mellitus with stage 3 chronic kidney disease, with long-term current use of insulin, unspecified whether stage 3a or 3b CKD (HCC)- Primary documented in this encounter [facility]-29-[facility] Miscellaneous Notes* Telephone Encounter - Matt Arnold [facility] - 08/15/2022 8:50 AM EDT Called patient back. She does NOT need any proof of income submitted with Jardiance PAP. She agreedto complete application and bring it with her to next PharmD appt on 08/22. Matt Arnold PharmD, [facility] Primary Care Clinical Pharmacist * Telephone Encounter - Vanessa Wyatt RN - 08/14/2022 4:37 PM EDT Pt called in about the medication assistance program. She wanted to know if she needed to bring in any form of income verification. Please call and advise. documented in this encounterRegency [facility]09-28-2022 Miscellaneous Notes* Telephone Encounter - Naya Montesinos APRN.CNP - 08/14/2022 12:05 PM EDT New rx sent. PDMP website checked and validated. All prescriptions have been APPROPRIATELY filled. No suspiciousactivity was identified. 08/14/2022 by Naya Montesinos APRN.DARLENE The following approved medication requests have been transmitted electronically. Requested Prescriptions Signed Prescriptions Disp Refills LORazepam (ATIVAN) 2 mg tab 30 tablet 1 Sig: Take 1 tablet by mouth at bedtime as needed for up to 30 days. Authorizing Provider: NAYA MONTESINOS APRN.CNP * Telephone Encounter - Rebecca Dhillon LPN - 08/13/2022 11:56 AM EDT Rx was mistakenly sent to mail order pharmacy instead of [facility] [place]. New Rx pending. Also pt asking for results from BMD test from 08/07/22. Rebecca Dhillon LPN * Telephone Encounter - Janel Moffett Cma - 08/12/2022 3:28 PM EDT Left message for patient to return call to office Janel Moffett Cma * Telephone Encounter - Naya Montesinos APRN.CNP - 08/12/2022 3:22 PM EDT PDMP website checked and validated. All prescriptions have been APPROPRIATELY filled. No suspiciousactivity was identified. 08/12/2022 by Naya Montesinos APRN.CNP The following approved medication requests have been transmitted electronically. Requested Prescriptions Signed Prescriptions Disp Refills LORazepam (ATIVAN) 2 mg tab 30 tablet 1 Sig: Take 1 tablet by mouth at bedtime as needed for up to 30 days. Authorizing Provider: NAYA MONTESINOS APRN.CNP * Telephone Encounter - Josiane Timmons Pss - 08/12/2022 8:48 AM EDT LORazepam (ATIVAN) 2 mg tab 30 tablet 1 Sig: Take 1 tablet by mouth at bedtime as needed for up to 30 days. Sent to pharmacy as: LORazepam (ATIVAN) 2 mg tab [facility] [place]. Josiane Timmons Pss documented in this encounterRegency Hospital [facility]09-22-2022 Miscellaneous Notes* Telephone Encounter - Lisa Major Ma - 08/08/2022 9:11 AM EDT Pt called and notified of Providers response below. Verbalized understanding. Lisa Major Ma * Telephone Encounter - Mariano Pearce DO - 08/07/2022 9:11 PM EDT Please inform patient that her RUQ US shows mild fatty liver changes. Need for low cholesterol dietand weight loss if able. Mariano Pearce DO documented in this encounterRegency Hospital [facility]09-15-2022 History of Present illness Narrative* Cici Napier RDMS - 08/01/2022 10:45 AM EDT Radiology Service Progress Note PATIENT NAME: Angeli Rees DATE OF SERVICE: August 01, 2022 TIME: 11:06 AM PATIENT IDENTITY VERIFICATION COMPLETED USING TWO (2) IDENTIFIERS: Name and Date of confirmedby patient verbally. FALL SCREENING: Has the patient had 2 falls in the last year or 1 fall with injury or currently using an Ambulatory Assistive Device (Walker, Cane, Wheelchair, Crutches, etc.)? No PATIENT GENDER DATA: Female. status: : No status: NO. PATIENT RELEVANT IMPLANT DATA REVIEWED: Not Applicable RADIOLOGY DEPARTMENT: Ultrasound PERIPHERAL IV DATA: Not applicable SIGNED BY: Cici Napier RDMS RVT August 01, 2022 11:06 AM documented in this encounterRegency Hospital [facility]09-12-2022 Miscellaneous Notes* Telephone Encounter - Matt Arnold RP - 07/29/2022 2:24 PM EDT PharmD received message form PCP today stating that patient was unable to afford Jardiance's copay,was wondering if would qualify for PAP. PharmD called patient, seems that she would meet financial eligibility for [employer] program for Jardiance. Will reach out to PAP technicians to assist with application. Matt Arnold PharmD, [facility] Primary Care Clinical Pharmacist documented in this encounterRegency Hospital [facility]09-12-2022 Instructions* Patient Instructions* Mariano Pearce DO - 07/29/2022 2:04 PM EDT Decrease the vitamin d to every other day 5000 IU documented in this encounterRegency [facility]09-12-2022 History of Present illness Narrative* Mariano Pearce DO - 07/29/2022 1:51 PM EDT Patient presents with: F/U 3 Month Immunizations: Flu vaccination HPI: Angeli Rees is a 71 year old female who presents to the office today for review of health conditions. Concerns today: Was considering starting on Jardiance medication to help with better glucose control but not able to afford the high copay cost of at least $150 a month. Interested in consideration if able to qualify for patient assistance for this. She is fearful of getting a yeast or UTI infection if starting this new medication. Right upper abdominal discomfort, radiating to the right side of her back, comes and goes, sometimes with eating and sometimes not, unsure of specific food triggers, + bloating and intermittent nausea symptoms as well. No vomiting, no fevers or chills. Ms. Rees has past history of diabetes. Since our last visit she denies excessive thirst or increased frequency of urination, chest pain or dyspnea , new or unusual visual symptoms, and low sugar/hypoglycemic reactions. Follows a diabetic diet most of the time. She is compliant with medication(s) and is tolerating med(s) without any side effects. She reports checking her glucose on a CGM schedule with sugars in the fasting 100-300 range. Patient's last HgA1C was Hemoglobin A1C (%) Date Value 07/26/2022 10.1 04/18/2022 9.2 06/01/2021 7.9 02/27/2021 8.5 ) Last Ophthalmology exam was within the past 12 months Ms. Rees reports history of hyperlipidemia. Current therapy includes ezetimibe (Zetia) 10 mg. Denies side effects of muscle weakness or achiness. Her most recent lipid panels are reviewed. Cholesterol, Total (mg/dL) Date Value 07/26/2022 231 08/03/2020 195 Total Cholesterol, Nonfasting (mg/dL) Date Value 11/03/2020 213 HDL Cholesterol (mg/dL) Date Value 07/26/2022 31 08/03/2020 34 HDL Cholesterol, Nonfasting (mg/dL) Date Value 11/03/2020 34 LDL Cholesterol (mg/dL) Date Value 07/26/2022 134 08/03/2020 105 LDL Cholesterol, Nonfasting (mg/dL) Date Value 11/03/2020 116 Triglyceride (mg/dL) Date Value 07/26/2022 331 08/03/2020 279 Triglycerides, Nonfasting (mg/dL) Date Value 11/03/2020 314 Ms. Rees indicates a history of hypertension and states that she is feeling well and denies any symptoms referable to elevated blood pressure. Specifically denies headache, chest pain, palpitations, dyspnea, and peripheral edema. Patient denies any side effects of her medication(s) and is compliantwith their regimen. Last 3 Encounter BP Readings: Date: BP: 07/29/2022 130/80 04/23/2022 120/70 12/24/2021 128/64 She watches her diet for sodium, low fat and low cholesterol some of the time. She does not check BP's generally. Angeli gets minimal exercise. PAST MEDICAL HISTORY Diagnosis Date Advance care planning 04/23/2022 daughter Rebecca Rees is medical POA per patient Allergic rhinitis, cause unspecified Allergic rhinitis Arthritis Benign hypertensive heart disease without heart failure BPPV (benign paroxysmal positional vertigo) Chronic kidney disease (CKD) stage G3a/A2, moderately decreased glomerular filtration rate (GFR) between 45-59 mL/min/1.73 square meter and albuminuria creatinine ratio between 30-299 mg/g (HCC) Diverticulitis Esophageal reflux Fatty liver Fibromyalgia Gastric polyp 07/04/2014 Dr. Spence, needs repeat EGD in 01/01 Gout right great toe Hernia of other specified sites of abdominal cavity without mention of obstruction or gangrene HIATAL Hypertension IBS (irritable bowel syndrome) Irritable bowel syndrome Leiomyoma of uterus Other and unspecified hyperlipidemia PONV (postoperative nausea and vomiting) 03/11/2018 Renal calculi Snoring Type II or unspecified type diabetes mellitus without mention of complication, not stated as uncontrolled Unspecified hemorrhoids without mention of complication Hemorrhoids Unspecified hypothyroidism PAST SURGICAL HISTORY Procedure Laterality Date APPENDECTOMY APPENDECTOMY COLONOSCOPY FLX DX W/COLLJ SPEC WHEN PFRMD 07/04/14 Colonoscopy, Dr. Spence ESOPHAGOGASTRODUODENOSCOPY TRANSORAL DIAGNOSTIC 07/04/14 EGD, Dr. Spence ESOPHAGOGASTRODUODENOSCOPY TRANSORAL DIAGNOSTIC 05/29/15 EGD LAPS ABD PRTM&OMENTUM DX W/WO SPEC BR/WA SPX 1989 Laparoscopy and scar tissue seen LIG/TRNSXJ FLP TUBE ABDL/VAG APPR UNI/BI Tubal ligation PAST SURGICAL HISTORY OF CARPEL TUNNEL/BILATERAL PAST SURGICAL HISTORY OF 1969 exploratory lap and left salpingectomy for bad infection POLYPECTOMY SNARE STIFF WIRE 07/04/14 gastric TONSILLECTOMY HX TONSILLECTOMY PRIMARY/SECONDARY <AGE 13 Tonsillectomy VAGINAL HYSTERECTOMY VAGINAL HYSTERECTOMY UTERUS 250 GM/< 03/2018 Hysterectomy, vaginal Social History Tobacco Use Smoking status: Never Smokeless tobacco: Never Vaping Use Vaping Use: Never used Substance Use Topics Alcohol use: No Drug use: No FAMILY HISTORY Problem Relation Age of Onset Diabetes Father Hypertension Father Lipids Father Hypertension Mother other (DEMENTIA) Mother Cancer Maternal Grandmother gallbladder Allergies: ALLERGIES Allergen Reactions Crestor [Rosuvastat* Other: See Comments Legs achy Niacin Itching Erythromycin GI Upset Iodine Rash Latex reddness Lescol [Fluvastatin* GI Upset Lipitor [Atorvastat* Intolerance Muscle aching Naprosyn [Naproxen] uncertain Pravastatin Myalgia Arm pain Seojqrq-Feo-Mge Red* Intolerance Sulfa (Sulfonamide * Hives Trulicity [Dulaglut* GI Upset Vomiting, diarrhea Hospitalized Vibramycin [Doxycyc* GI Upset Vioxx [Rofecoxib] Swelling Zocor [Simvastatin] uncertain Current Meds: empagliflozin (JARDIANCE) 10 mg tablet Take 1 tablet by mouth daily with breakfast. omeprazole (PRILOSEC) 40 mg capsule TAKE 1 CAPSULE DAILY insulin glargine (LANTUS SOLOSTAR, BASAGLAR KWIKPEN) 100 unit/mL (3 mL) Inject 46 units SQ in the AM and 46 units SQ in the evening insulin lispro (HUMALOG KWIKPEN INSULIN) 100 unit/mL Inject 16 Units subcutaneously three times daily before meals. levothyroxine (SYNTHROID) 112 mcg tablet Take 1 tablet by mouth PO daily in AM. For thyroid. metoprolol tartrate, short acting, (LOPRESSOR) 100 mg tablet Take 1 tablet by mouth twice daily. enalapril (VASOTEC) 20 mg tablet Take 1 tablet by mouth twice daily. enalapril (VASOTEC) 20 mg tablet Take 1 tablet by mouth once daily. levothyroxine (SYNTHROID) 112 mcg tablet Take 1 tablet by mouth 6 days per week. Take 1/2 tablet bymouth 1 day per week. For thyroid. citalopram (CELEXA) 20 mg tablet Take 1 tablet by mouth once daily. citalopram hydrobromide (CELEXA) 10 mg tablet Take 1 tablet by mouth once daily. amLODIPine (NORVASC) 5 mg tablet Take 1 tablet by mouth once daily. amLODIPine (NORVASC) 5 mg tablet Take 1 tablet by mouth once daily. citalopram (CELEXA) 20 mg tablet Take 1 tablet by mouth once daily. ezetimibe (ZETIA) 10 mg tablet Take 1 tablet by mouth once daily. For cholesterol triamcinolone acetonide (KENALOG) 0.1 % cream Apply 1 application to affected area twice daily. Forrash on right ear, Apply sparingly to area for rash/itching. flash glucose scanning reader (FREESTYLE BETSEY 14 DAY READER) Use to check blood sugar as directed. colchicine (COLCRYS) 0.6 mg tablet Take 1 tablet by mouth twice daily. For acute gout flare up colchicine (COLCRYS) 0.6 mg tablet Take 1 tablet by mouth once daily for 7 days. For acute gout flare up Insulin [place], Disposable, (BD ULTRA-FINE PATRICIO PEN NEEDLE) 32 gauge x Use 4 pen needles daily with Basaglar and Humalog furosemide (LASIX) 20 mg tablet TAKE 1 TABLET BY MOUTH DAILY X3 DAYS, THEN TAKE DAILY NEEDED FORFEET SWELLING. traZODone (DESYREL) 100 mg tablet Take 1 tablet by mouth daily at bedtime. busPIRone (BUSPAR) 5 mg tablet Take 1-2 tablets by mouth at bedtime as needed (insomnia). apremilast (OTEZLA) 30 mg tablet Take 30 mg by mouth once daily. blood sugar diagnostic (ONETOUCH ULTRA TEST) test strip Test blood sugar 3-4 times daily, DX: E11.65 Insulin: yes flash glucose sensor (FREESTYLE BETSEY 14 DAY SENSOR) kit Apply sensor to back of arm to check bloodsugars as directed. Change sensor every 2 weeks and rotate arms. estradiol (ESTRACE) 0.01 % (0.1 mg/gram) vaginal cream Apply pea-sized amount to urethral opening twice a week. Lancing Device (LANCING DEVICE WITH LANCETS) [facility] Use to test blood sugar as directed. Blood-Glucose Meter (ONETOUCH ULTRA2) monitoring kit 1 Each as needed. Test blood sugar 3-4 times daily, DX: E11.65 Insulin: yes acetaminophen (TYLENOL) 325 mg tablet Take 2 tablets by mouth every 6 hours as needed for Pain. aspirin, enteric coated (ASPIR-LOW) 81 mg EC tablet Take 1 tablet by mouth once daily. COMPOUNDED PRESCRIPTION BLOOD GLUCOSE METER OF CHOICE TESTING 1-2 TIMES DAILY DX;EII.65 Lancets lancets PT IS TO TEST BLOOD SUGAR 1-2 TIMES PER DAY DX:EII.65 alcohol swabs padm Apply 1 application to affected area twice daily. USE TO CLEANSE ARE FOR B/S TESTING 1-2 TIMES PER DAY DX:EII.65 cholecalciferol (VITAMIN D-3) 2,000 unit tablet Take 2,000 Units by mouth once daily. lancets (GMATE LANCETS) 30 gauge [facility] DM2, 250.00, non insulin dependent, testing 1-2 times a day Review of Systems: The remainder of the review of systems is negative. PE: 07/29/22 1324 BP: 130/80 Pulse: 64 Resp: 16 Temp: 36.1 C (97 F) TempSrc: Left Tympanic Weight: 80.7 kg (178 lb) Gen: A&O, NAD, non-toxic appearing, Pleasant, cooperative HEENT: NT/AC, PERRLA, EOMs intact b/l, nares clear and patent b/l, pharynx without erythema, exudate or lesions. Uvula midline. MMM Neck: supple, No cervical LAD, no thyromegaly, no carotid bruits CV: RRR, normal S1 and S2, no murmurs, no gallops, no rubs, Pulses 2+ and symmetric in UE and LE b/l Lungs: normal respiratory effort, CTA b/l, no wheezing or rhonchi or rales Abd: soft, mild RUQ TTP, obese, ND, +BS, no hepatosplenomegaly MS: FROM all 4 extremities Neuro: CN II-XII intact b/l Skin: warm, dry, intact, No rashes or lesions on exposed skin. Foot exam: Monofilament abnormal on right and left feet. ASSESSMENT/PLAN: 1. Type 2 diabetes mellitus with stage 3 chronic kidney disease, with long-term current use of insulin, unspecified whether stage 3a or 3b CKD (HCC) - ICD9: 250.40, 585.3, V58.67, ICD10: E11.22, N18.30, Z79.4 (primary diagnosis) uncontrolled poorly controlled - Continue current medications - Add Jardiance - Blood glucose monitoring on a CGM schedule - Encouraged regular aerobic exercise and weight loss - BP goal of <130/80 - LDL goal of <100 - URINALYSIS, WITH MICROSCOPIC - URINE CULTURE 2. Dyslipidemia - ICD9: 272.4, ICD10: E78.5 - poor control - Continue current medication. - Encouraged following a low fat, low cholesterol diet. - Discussed the benefits of regular aerobic exercise and weight loss. - Encouraged following a low carbohydrate, healthy oil intake diet. - EZETIMIBE 10 MG TABLET 3. Need for influenza vaccination - ICD9: V04.81, ICD10: Z23 - INFLUENZA SEASONAL QUADRIVALENT HIGH DOSE AGE 65+ 4. Yeast infection - ICD9: 112.9, ICD10: B37.9 - rx prn once starting Jardiance if develop vaginal itching - FLUCONAZOLE 150 MG TABLET 5. RUQ abdominal pain - ICD9: 789.01, ICD10: R10.11 - concerns for liver or gallbladder etiology of symptoms, need for RUQ US for evaluation. - US ABD RT UPPER QUADRANT 6. Situational anxiety - ICD9: 300.09, ICD10: F41.8 - stable 7. Acquired hypothyroidism - ICD9: 244.9, ICD10: E03.9 - Instructed patient on importance of taking on an empty stomach either first thing in the morning or at bedtime. Stable - Behavioral intervention 8. Essential hypertension, benign - ICD9: 401.1, ICD10: I10 - good control - Continue current medication(s) - Encouraged dietary sodium restriction/DASH diet - Recommended regular aerobic exercise. - Recommend home blood pressure monitoring, to bring results in on next visit - Discussed need and benefit for weight loss. - Goal of BP <130/80 9. Osteopenia, senile - ICD9: 733.90, ICD10: M85.80 - Reviewed the need for Calcium and Vitamin D supplements and weight bearing exercise as tolerated 10. Mixed hyperlipidemia - ICD9: 272.2, ICD10: E78.2 - poor control - Continue current medication. - Encouraged following a low fat, low cholesterol diet. - Discussed the benefits of regular aerobic exercise and weight loss. - Encouraged following a low carbohydrate, healthy oil intake diet. 11. Vitamin D deficiency - ICD9: 268.9, ICD10: E55.9 - decrease dose of vitamin D3 to 5000 international unit(s) every other day 12. Recurrent UTI (urinary tract infection) - ICD9: 599.0, ICD10: N39.0 See above, if develops urinary symptoms once start Jardiance medication - URINALYSIS, WITH MICROSCOPIC - URINE CULTURE Mariano Pearce DO To ER if develops chest pain, shortness of breath, or severe worsening of symptoms. Discussed risks, benefits, alternatives, and potential side effects of medications. Patient expressed understanding and agreed with the plan. Mariano Pearce DO [address] [place] [address] documented in this encounterRegency [facility]09-12-2022 Evaluation note* Diagnosis Type 2 diabetes mellitus with stage 3 chronic kidney disease, with long-term current use of insulin, unspecified whether stage 3a or 3b CKD (HCC)- Primary Dyslipidemia Other and unspecified hyperlipidemia Need for influenza vaccination Need for prophylactic vaccination and inoculation against influenza Yeast infection Candidiasis of unspecified site RUQ abdominal pain Abdominal pain, right upper quadrant Situational anxiety Other anxiety states Acquired hypothyroidism Unspecified hypothyroidism Essential hypertension, benign Osteopenia, senile Disorder of bone and cartilage, unspecified Mixed hyperlipidemia Vitamin D deficiency Unspecified vitamin D deficiency Recurrent UTI (urinary tract infection) Urinary tract infection, site not specified documented in this encounter [facility] History of Present illness Narrative* Matt Arnold, [facility] - 07/11/2022 1:30 PM EDT Images from the original note were not included. Primary Care Pharmacy Visit CC (Reason for Consult): Diabetes Goal: A1c < 8% Collaborating Provider: Dr. Pearce Last Provider Visit: 04/23/22 Angeli Rees is a 71 year old female presenting for follow up visit in person. Patient consents [facility] collaborative practice agreement. Patient is presenting today for f/up pharmacotherapy management appointment for diabetes. At PharmDvisit on 04/10, patient reported not utilizing sliding scale as prescribed, discussed utilizing sliding scale in addition to base amount for Humalog. At last PharmD visit on 06/10, mealtime insulin wasincreased. Subjective: HPI: Overall feeling OK. Does feel tired, a little more so than usual. Falls asleep easily during the day (power nap) but waking up frequently in the middle of the night. Waking up to urinate 2-3 times per night). Personal goals: get numbers down, keep kidneys healthy, get more energy, weight loss would be nice. Current DM Medications: Insulin glargine (Basaglar) 46 units BID Insulin lispro (Humalog) 16 units + SSI TIDAC (giving 14 units TIDAC, stopped using SSI) Add 0 units if BS(blood sugar) is between 70-150 Add 1 units if BS is between 151-200 Add 2 units if BS is between 201-250 Add 3 units if BS is between 251-300 Add 4 units if BS is between 301-350 Add 5 units if BS is between 351-400 BS > 400, call your physician Past DM medications tried and stopped: Glipizide - hypoglycemia Metformin ER - GI upset Liraglutide - cost-prohibitive; pt felt it did not offer much BG-lowering Trulicity - stomach issues + HIPOLITO GLYCEMIC CONTROL: Preventative Medications: On STEPHANIA/ARB: Yes On Statin: No ROS: Patient denies CP, SOB, FREEDMAN, blurred vision, dizziness or lightheadedness Patient denies symptoms of hypoglycemia (sweating, anxiety, palpitations, hunger, and tremor) Patient denies symptoms of hyperglycemia (polyuria, polydipsia, polyphagia) Patient denies potential medication adverse effects DIET/EXERCISE/SOCIAL Hx: No changes to diet or physical activity MEDICATIONS: Pill bottles are not present Adherence: denies missed doses [facility] Rx coverage: Medicare Part D ([employer]) Affordability: no issues, gets insulins through [employer] PAP Diabetes supplies: [employer] System: pill box ACTIVE PROBLEM LIST Allergic Rhinitis, Cause Unspecified Essential Hypertension, Benign Type 2 Diabetes Mellitus With Stage 3 Chronic Kidney Disease, With Long-Term Current Use of Insulin(Hcc) Acquired Hypothyroidism Symptomatic Menopausal Or Female Climacteric States Gerd (Gastroesophageal Reflux Disease) Diverticulosis of Colon Kidney Stone Elevated Lfts Postmenopausal Atrophic Vaginitis Internal Hemorrhoids Without Mention of Complication Chronic Kidney Disease (Ckd) Stage G3a/A2, Moderately Decreased Glomerular Filtration Rate (Gfr) Between 45-59 Ml/Min/1.73 Square Meter and Albuminuria Creatinine Ratio Between 30-299 Mg/G ([facility]) Obesity, Class I, Bmi 30-34.9 Dysuria Mixed Hyperlipidemia Gerd Without Esophagitis Pmr (Polymyalgia Rheumatica) (Hcc) Arthritis, Multiple Joint Involvement Hypertension Dyslipidemia Chronic Insomnia Rls (Restless Legs Syndrome) Gout Involving Toe of Right Foot Hypertensive Kidney Disease With Stage 3 Chronic Kidney Disease (Hcc) Uncontrolled Type 2 Diabetes Mellitus With Hyperglycemia (Hcc) Acquired Trigger Finger of Left Ring Finger Osteopenia, Senile Situational Anxiety Vitamin D Deficiency Fatigue PAST MEDICAL HISTORY Diagnosis Date Advance care planning 04/23/2022 daughter Rebecca Case is medical POA per patient Allergic rhinitis, cause unspecified Allergic rhinitis Arthritis Benign hypertensive heart disease without heart failure BPPV (benign paroxysmal positional vertigo) Chronic kidney disease (CKD) stage G3a/A2, moderately decreased glomerular filtration rate (GFR) between 45-59 mL/min/1.73 square meter and albuminuria creatinine ratio between 30-299 mg/g ([facility]) Diverticulitis Esophageal reflux Fatty liver Fibromyalgia Gastric polyp 07/04/2014 Dr. Spence, needs repeat EGD in 01/01 Gout right great toe Hernia of other specified sites of abdominal cavity without mention of obstruction or gangrene HIATAL Hypertension IBS (irritable bowel syndrome) Irritable bowel syndrome Leiomyoma of uterus Other and unspecified hyperlipidemia PONV (postoperative nausea and vomiting) 03/11/2018 Renal calculi Snoring Type II or unspecified type diabetes mellitus without mention of complication, not stated as uncontrolled Unspecified hemorrhoids without mention of complication Hemorrhoids Unspecified hypothyroidism Past medical, family and social history reviewed and updated. ALLERGIES Allergen Reactions Crestor [Rosuvastat* Other: See Comments Legs achy Niacin Itching Erythromycin GI Upset Iodine Rash Latex reddness Lescol [Fluvastatin* GI Upset Lipitor [Atorvastat* Intolerance Muscle aching Naprosyn [Naproxen] uncertain Pravastatin Myalgia Arm pain Ppkggjw-Hcd-Phb Red* Intolerance Sulfa (Sulfonamide * Hives Trulicity [Dulaglut* GI Upset Vomiting, diarrhea Hospitalized Vibramycin [Doxycyc* GI Upset Vioxx [Rofecoxib] Swelling Zocor [Simvastatin] uncertain Medication List Medication Directions Comments Action/Plan acetaminophen (TYLENOL) 325 mg tablet Take 2 tablets by mouth every 6 hours as needed for Pain. alcohol swabs padm Apply 1 application to affected area twice daily. USE TO CLEANSE ARE FOR B/S TESTING 1-2 TIMES PER DAY DX:EII.65 amLODIPine (NORVASC) 5 mg tablet Take 1 tablet by mouth once daily. amLODIPine (NORVASC) 5 mg tablet Take 1 tablet by mouth once daily. apremilast (OTEZLA) 30 mg tablet Take 30 mg by mouth once daily. aspirin, enteric coated (ASPIR-LOW) 81 mg EC tablet Take 1 tablet by mouth once daily. blood sugar diagnostic (ONETOUCH ULTRA TEST) test strip Test blood sugar 3-4 times daily, DX: E11.65 Insulin: yes Blood-Glucose Meter (ONETOUCH ULTRA2) monitoring kit 1 Each as needed. Test blood sugar 3-4 times daily, DX: E11.65 Insulin: yes busPIRone (BUSPAR) 5 mg tablet Take 1-2 tablets by mouth at bedtime as needed (insomnia). cholecalciferol (VITAMIN D-3) 2,000 unit tablet Take 2,000 Units by mouth once daily. citalopram (CELEXA) 20 mg tablet Take 1 tablet by mouth once daily. citalopram (CELEXA) 20 mg tablet Take 1 tablet by mouth once daily. citalopram hydrobromide (CELEXA) 10 mg tablet Take 1 tablet by mouth once daily. colchicine (COLCRYS) 0.6 mg tablet Take 1 tablet by mouth once daily for 7 days. For acute gout flare up colchicine (COLCRYS) 0.6 mg tablet Take 1 tablet by mouth twice daily. For acute gout flare up COMPOUNDED PRESCRIPTION BLOOD GLUCOSE METER OF CHOICE TESTING 1-2 TIMES DAILY DX;EII.65 enalapril (VASOTEC) 20 mg tablet Take 1 tablet by mouth twice daily. enalapril (VASOTEC) 20 mg tablet Take 1 tablet by mouth once daily. estradiol (ESTRACE) 0.01 % (0.1 mg/gram) vaginal cream Apply pea-sized amount to urethral opening twice a week. ezetimibe (ZETIA) 10 mg tablet Take 1 tablet by mouth once daily. For cholesterol flash glucose scanning reader (FREESTYLE BETSEY 14 DAY READER) Use to check blood sugar as directed. flash glucose sensor (FREESTYLE BETSEY 14 DAY SENSOR) kit Apply sensor to back of arm to check bloodsugars as directed. Change sensor every 2 weeks and rotate arms. furosemide (LASIX) 20 mg tablet TAKE 1 TABLET BY MOUTH DAILY X3 DAYS, THEN TAKE DAILY NEEDED FORFEET SWELLING. insulin glargine (LANTUS SOLOSTAR, BASAGLAR KWIKPEN) 100 unit/mL (3 mL) Inject 46 units SQ in the AM and 46 units SQ in the evening insulin lispro (HUMALOG KWIKPEN INSULIN) 100 unit/mL Inject 16 Units subcutaneously three times daily before meals. Insulin [place], Disposable, (BD ULTRA-FINE PATRICIO PEN NEEDLE) 32 gauge x Use 4 pen needles daily with Basaglar and Humalog lancets (GMATE LANCETS) 30 gauge [facility] DM2, 250.00, non insulin dependent, testing 1-2 times a day Lancets lancets PT IS TO TEST BLOOD SUGAR 1-2 TIMES PER DAY DX:EII.65 Lancing Device (LANCING DEVICE WITH LANCETS) [facility] Use to test blood sugar as directed. levothyroxine (SYNTHROID) 112 mcg tablet Take 1 tablet by mouth 6 days per week. Take 1/2 tablet bymouth 1 day per week. For thyroid. levothyroxine (SYNTHROID) 112 mcg tablet Take 1 tablet by mouth PO daily in AM. For thyroid. LORazepam (ATIVAN) 2 mg tab Take 1 tablet by mouth at bedtime as needed for up to 30 days. metoprolol tartrate, short acting, (LOPRESSOR) 100 mg tablet Take 1 tablet by mouth twice daily. omeprazole (PRILOSEC) 40 mg capsule TAKE 1 CAPSULE DAILY traZODone (DESYREL) 100 mg tablet Take 1 tablet by mouth daily at bedtime. triamcinolone acetonide (KENALOG) 0.1 % cream Apply 1 application to affected area twice daily. Forrash on right ear, Apply sparingly to area for rash/itching. Objective: Exam: VITALS: There were no vitals taken for this visit. Last 3 Encounter BP Readings: Date: BP: 04/23/2022 120/70 12/24/2021 128/64 12/10/2021 136/82 Wt: 81.6 kg (180 lb) BMI: 32.92 kg/(m^2) LABS: Reviewed Lab Results Component Value Date HBA1C 9.2 04/18/2022 HBA1C 9.1 01/30/2022 HBA1C 7.9 06/01/2021 HBA1C 8.5 02/27/2021 HBA1C 8.0 11/03/2020 CMP: Glucose 172 04/18/2022 BUN 21 04/18/2022 Creatinine 1.04 04/18/2022 Sodium 139 04/18/2022 Potassium 4.3 04/18/2022 Chloride 104 04/18/2022 CO2 24 04/18/2022 Protein, Total 6.9 04/18/2022 Albumin 4.1 04/18/2022 Calcium 9.5 04/18/2022 Alkaline Phosphatase 108 04/18/2022 Bilirubin, Total 0.3 04/18/2022 AST 58 04/18/2022 ALT 53 04/18/2022 eGFR 58 (per CMP 04/18/22) Lab Results Component Value Date CHOL 226 04/18/2022 CHOL 213 11/03/2020 CHOL 195 08/03/2020 LDL 133 04/18/2022 LDL 116 11/03/2020 LDL 105 08/03/2020 HDL 37 04/18/2022 HDL 34 11/03/2020 HDL 34 08/03/2020 TG 279 04/18/2022 TG 314 11/03/2020 TG 279 08/03/2020 The 10-year ASCVD risk score (Annette MCNEIL, et al., 2019) is: 22.7% Values used to calculate the score: Age: 71 years Sex: Female Is Non- : No Diabetic: Yes Tobacco smoker: No Systolic Blood Pressure: 120 mmHg Is BP treated: Yes HDL Cholesterol: 37 mg/dL Total Cholesterol: 226 mg/dL Albumin/Creat Ratio (mg/g) Date Value 08/03/2020 16 PHARMACOTHERAPY ASSESSMENT/PLAN: 1. Type 2 diabetes mellitus with stage 3 chronic kidney disease, with long-term current use of insulin, unspecified whether stage 3a or 3b CKD (HCC) - ICD9: 250.40, 585.3, V58.67, ICD10: E11.22, N18.30, Z79.4 A1c goal < 8%; uncontrolled (last A1c 9.2%); CGM report shows worse control than previously - patient taking less mealtime insulin (due to miscommunication/misunderstanding with previous instruction); having some increased sx of polydipsia and urination frequency as a result; no lows; patient with CKD and she is worried about kidney health and having a heart attack; appears she is a candidate for SGLT2i so will start Jardiance for added BG reduction and its kidney and CV protective benefits;f/up in 1 mo INITIATE Jardiance 10mg daily Discussed potential risks of dehydration and genital bacterial/mycotic infxns - counseled to maintain good hydration and personal hygiene; discussed literature findings of possible increased risks ofFournier's gangrene - advised patient to stop medication and contact doctor immediately if notices genital or perianal pain, erythema, tenderness, or swelling; counseled on risk of diabetic ketoacidosis - advised to go to ED if develops sudden nausea/vomiting, fatigue, confusion, SOB, and/or weakness Discussed risk factors for DKA being skipped insulin doses - strongly encouraged insulin adherence Advised to contact PharmD if unaffordable --> paperwork for PAP application provided to patient to fill out if copay too high INCREASE Humalog to 16 units TIDAC as previously recommended; also start incorporating sliding scale into mealtime dose CONTINUE Basaglar 46 units BID Advised to scan CGM more frequently ACEi/ARB for renal protection: yes Statin: no, hx of intolerance; to consider addressing again in future; perhaps would be open to trying rosuvastatin 2.5mg daily? Past notes indicate she did not tolerate rosuva 5mg daily among others HbA1c: due 07/19 Patient is scheduled to see PCP on 07/29. Patient to have PharmD f/u on 08/22. Patient verbalized understanding of instructions. Matt Arnold PharmD, [facility] Primary Care Clinical Pharmacist The majority of the pharmacy visit (> 50%) was spent counseling and/or coordinating care for thepatient. interaction: face to face time was 30 minutes. [facility] Instructions* Patient Instructions* Matt Arnold RPh - 07/11/2022 1:30 PM EDT START Jardiance 10mg daily. INCREASE Humalog to 16 units + sliding scale before meals (up to 3 injections per day). Scan your sensor more frequently. Make sure you are scanning right before you go to sleep. documented in this encounterReg[facility]-2022 Evaluation note* Diagnosis Type 2 diabetes mellitus with stage 3 chronic kidney disease, with long-term current use of insulin, unspecified whether stage 3a or 3b CKD (HCC)- Primary documented [facility] encounter [facility] Evaluation note* Diagnosis Type 2 diabetes mellitus with stage 3 chronic kidney disease, with long-term current use of insulin, unspecified whether stage 3a or 3b CKD (HCC)- Primary documented [facility] encounter [facility] Miscellaneous Notes* Telephone Encounter - Pamela Cooper LPN - 06/20/2022 7:14 AM EDT Patient phones requesting refills as follows: Pending Prescriptions Disp Refills OMEPRAZOLE 40 MG CAPSULE,DELAYED RELEASE 90 capsule 3 Sig: TAKE 1 CAPSULE DAILY DARRYL: Yes FANY-04/23/22 Labs-04/18/22 NOV-07/29/22 med filled 01/09/22 Please review and advise. Pamela Cooper LPN documented in [facility] encounterReg[facility]-2022 Miscellaneous Notes* Telephone Encounter - Naya Montesinos APRN.CNP - 06/10/2022 12:40 PM EDT PDMP website checked and validated. All prescriptions have been APPROPRIATELY filled. No suspiciousactivity was identified. 06/10/2022 by Naya Montesinos APRN.CNP The following approved medication requests have been transmitted electronically. Signed Prescriptions Disp Refills LORazepam (ATIVAN) 2 mg tab 30 tablet 1 Sig: Take 1 tablet by mouth at bedtime as needed for up to 30 days. LISANDRA Class: C-IV DARRYL: No Authorizing Provider: NAYA MONTESINOS APRN.CNP * Telephone Encounter - Eleni Ferguson MA - 06/10/2022 9:45 AM EDT Patient has been identified by name and date of : Yes Pending Prescriptions Disp Refills LORAZEPAM 2 MG TABLET 30 tablet 1 Sig: Take 1 tablet by mouth at bedtime as needed for up to 30 days. LISANDRA Class: C-IV DARRYL: No RX INSTRUCTIONS: Patient aware RX will be sent to pharmacy. No need to notify patient. Eleni Ferguson MA Fany: 04/2022 Nov: 07/2022 Last refill: 05/10/2022 30 tablets * Telephone Encounter - Nadia Champagne - 06/10/2022 8:20 AM EDT Patient has been identified by name and date of : Yes Pending Prescriptions Disp Refills LORAZEPAM 2 MG TABLET 30 tablet 1 Sig: Take 1 tablet by mouth at bedtime as needed for up to 30 days. LISANDRA Class: C-IV DARRYL: No RX INSTRUCTIONS: taking last dose tonight. Patient aware RX will be sent to pharmacy. No need to notify patient. Nadia Reagan Pss documented in this encounterReg[facility]07-25-2022 History of Present illness Narrative* Keti Dubow, [facility] - 06/10/2022 9:00 AM EDT Images from the original note were not included. Primary Care Pharmacy Visit REASON FOR CONSULT: DM GOALS: A1c < 8% CONSULTING PROVIDER: Dr. Pearce Date of Consult: 06/08/18 Angeli Rees is a 71 year old female presenting for follow up visit in person. [facility] consents [facility] agreement. Last seen by PCP, Dr. Mariano Pearce, DO on 04/23/22. At last PCP appt, Basaglar dose was increased. At last PharmD visit on 04/10, patient reported not utilizing sliding scale as prescribed, discussed utilizing sliding scale in addition to base amount forHumalog. INTERIM HISTORY: Reports she has started to utilize the sliding scale Reports readings are still up and down Cannot recall why readings were higher some days, was not able to start keeping food journal No changes in diet, reports most days still having 2 meals, not feeling hungry by supper time Skips supper but then late evening finds that she becomes hungry and will have a late evening meal Current DM Medications: Insulin glargine (Basaglar) 46 units in the am and 44 in the evening - Taking differently: 46 unitsBID Insulin lispro (Humalog) 14 units before breakfast and lunch and 16 units before dinner PLUS sliding scale Add 0 units if BS(blood sugar) is between 70-150 Add 1 units if BS is between 151-200 Add 2 units if BS is between 201-250 Add 3 units if BS is between 251-300 Add 4 units if BS is between 301-350 Add 5 units if BS is between 351-400 BS > 400 , call your physician Past DM medications tried and stopped: Glipizide - hypoglycemia Metformin ER - GI upset Liraglutide - cost-prohibitive; pt felt it did not offer much BG-lowering Trulicity - stomach issues + HIPOLITO Preventative Medications: On STEPHANIA/ARB: Yes On Statin: No GLYCEMIC CONTROL: CGM Report Summary of CGM Findings: 1- CGM recording is adequate for interpretation. 2- Average glucose is 214 mg/dL. 3- Total frequency of hypoglycemia: none 4- Nocturnal hypoglycemia was not noted. 5- Hyperglycemic episodes: 60% 6- Time in target range (70-180 mg/dL): 40% ROS: Patient denies CP, SOB, FREEDMAN, blurred vision, dizziness or lightheadedness Patient denies nausea, vomiting, diarrhea, abdominal pain Patient denies symptoms of hypoglycemia (sweating, anxiety, palpitations, hunger, and tremor) Patient denies symptoms of hyperglycemia (polyuria, polydipsia, polyphagia) Patient denies potential medication adverse effects MEDICATIONS: Pill bottles are not present Adherence: denies missed doses Pharmacy: [facility] Rx coverage: Medicare Part D ([employer]) Affordability: no issues, gets insulins through [employer] PAP Diabetes supplies: [employer] System: pill box ACTIVE PROBLEM LIST Allergic Rhinitis, Cause Unspecified Essential Hypertension, Benign Type 2 Diabetes Mellitus With Stage 3 Chronic Kidney Disease, With Long-Term Current Use of Insulin(Hcc) Acquired Hypothyroidism Symptomatic Menopausal Or Female Climacteric States Gerd (Gastroesophageal Reflux Disease) Diverticulosis of Colon Kidney Stone Elevated Lfts Postmenopausal Atrophic Vaginitis Internal Hemorrhoids Without Mention of Complication Chronic Kidney Disease (Ckd) Stage G3a/A2, Moderately Decreased Glomerular Filtration Rate (Gfr) Between 45-59 Ml/Min/1.73 Square Meter and Albuminuria Creatinine Ratio Between 30-299 Mg/G (Hcc) Obesity, Class I, Bmi 30-34.9 Dysuria Mixed Hyperlipidemia Gerd Without Esophagitis Pmr (Polymyalgia Rheumatica) (Hcc) Arthritis, Multiple Joint Involvement Hypertension Dyslipidemia Chronic Insomnia Rls (Restless Legs Syndrome) Gout Involving Toe of Right Foot Hypertensive Kidney Disease With Stage 3 Chronic Kidney Disease (Hcc) Uncontrolled Type 2 Diabetes Mellitus With Hyperglycemia (Hcc) Acquired Trigger Finger of Left Ring Finger Osteopenia, Senile Situational Anxiety Vitamin D Deficiency Fatigue PAST MEDICAL HISTORY Diagnosis Date Advance care planning 04/23/2022 daughter Rebecca Case is medical POA per patient Allergic rhinitis, cause unspecified Allergic rhinitis Arthritis Benign hypertensive heart disease without heart failure BPPV (benign paroxysmal positional vertigo) Chronic kidney disease (CKD) stage G3a/A2, moderately decreased glomerular filtration rate (GFR) between 45-59 mL/min/1.73 square meter and albuminuria creatinine ratio between 30-299 mg/g (HCC) Diverticulitis Esophageal reflux Fatty liver Fibromyalgia Gastric polyp 07/04/2014 Dr. Spence, needs repeat EGD in 01/01 Gout right great toe Hernia of other specified sites of abdominal cavity without mention of obstruction or gangrene HIATAL Hypertension IBS (irritable bowel syndrome) Irritable bowel syndrome Leiomyoma of uterus Other and unspecified hyperlipidemia PONV (postoperative nausea and vomiting) 03/11/2018 Renal calculi Snoring Type II or unspecified type diabetes mellitus without mention of complication, not stated as uncontrolled Unspecified hemorrhoids without mention of complication Hemorrhoids Unspecified hypothyroidism ALLERGIES Allergen Reactions Crestor [Rosuvastat* Other: See Comments Legs achy Niacin Itching Erythromycin GI Upset Iodine Rash Latex reddness Lescol [Fluvastatin* GI Upset Lipitor [Atorvastat* Intolerance Muscle aching Naprosyn [Naproxen] uncertain Pravastatin Myalgia Arm pain Twfgvzo-Cur-Oad Red* Intolerance Sulfa (Sulfonamide * Hives Trulicity [Dulaglut* GI Upset Vomiting, diarrhea Hospitalized Vibramycin [Doxycyc* GI Upset Vioxx [Rofecoxib] Swelling Zocor [Simvastatin] uncertain Current Outpatient Medications Medication Sig insulin glargine (LANTUS SOLOSTAR, BASAGLAR KWIKPEN) 100 unit/mL (3 mL) Inject 46 units SQ in the AM and 44 units SQ in the evening levothyroxine (SYNTHROID) 112 mcg tablet Take 1 tablet by mouth PO daily in AM. For thyroid. metoprolol tartrate, short acting, (LOPRESSOR) 100 mg tablet Take 1 tablet by mouth twice daily. omeprazole (PRILOSEC) 40 mg capsule Take 1 capsule by mouth once daily. insulin lispro (HUMALOG KWIKPEN INSULIN) 100 unit/mL Inject 14 Units subcutaneously daily with breakfast AND 14 Units daily with lunch AND 16 Units daily with dinner. enalapril (VASOTEC) 20 mg tablet Take 1 tablet by mouth twice daily. enalapril (VASOTEC) 20 mg tablet Take 1 tablet by mouth once daily. levothyroxine (SYNTHROID) 112 mcg tablet Take 1 tablet by mouth 6 days per week. Take 1/2 tablet bymouth 1 day per week. For thyroid. citalopram (CELEXA) 20 mg tablet Take 1 tablet by mouth once daily. citalopram hydrobromide (CELEXA) 10 mg tablet Take 1 tablet by mouth once daily. amLODIPine (NORVASC) 5 mg tablet Take 1 tablet by mouth once daily. amLODIPine (NORVASC) 5 mg tablet Take 1 tablet by mouth once daily. citalopram (CELEXA) 20 mg tablet Take 1 tablet by mouth once daily. ezetimibe (ZETIA) 10 mg tablet Take 1 tablet by mouth once daily. For cholesterol triamcinolone acetonide (KENALOG) 0.1 % cream Apply 1 application to affected area twice daily. Forrash on right ear, Apply sparingly to area for rash/itching. flash glucose scanning reader (FREESTYLE BETSEY 14 DAY READER) Use to check blood sugar as directed. colchicine (COLCRYS) 0.6 mg tablet Take 1 tablet by mouth twice daily. For acute gout flare up colchicine (COLCRYS) 0.6 mg tablet Take 1 tablet by mouth once daily for 7 days. For acute gout flare up Insulin [place], Disposable, (BD ULTRA-FINE PATRICIO PEN NEEDLE) 32 gauge x Use 4 pen needles daily with Basaglar and Humalog furosemide (LASIX) 20 mg tablet TAKE 1 TABLET BY MOUTH DAILY X3 DAYS, THEN TAKE DAILY NEEDED FORFEET SWELLING. traZODone (DESYREL) 100 mg tablet Take 1 tablet by mouth daily at bedtime. busPIRone (BUSPAR) 5 mg tablet Take 1-2 tablets by mouth at bedtime as needed (insomnia). apremilast (OTEZLA) 30 mg tablet Take 30 mg by mouth once daily. blood sugar diagnostic (ONETOUCH ULTRA TEST) test strip Test blood sugar 3-4 times daily, DX: E11.65 Insulin: yes flash glucose sensor (FREESTYLE BETSEY 14 DAY SENSOR) kit Apply sensor to back of arm to check bloodsugars as directed. Change sensor every 2 weeks and rotate arms. estradiol (ESTRACE) 0.01 % (0.1 mg/gram) vaginal cream Apply pea-sized amount to urethral opening twice a week. Lancing Device (LANCING DEVICE WITH LANCETS) [facility] Use to test blood sugar as directed. Blood-Glucose Meter (ONETOUCH ULTRA2) monitoring kit 1 Each as needed. Test blood sugar 3-4 times daily, DX: E11.65 Insulin: yes acetaminophen (TYLENOL) 325 mg tablet Take 2 tablets by mouth every 6 hours as needed for Pain. aspirin, enteric coated (ASPIR-LOW) 81 mg EC tablet Take 1 tablet by mouth once daily. COMPOUNDED PRESCRIPTION BLOOD GLUCOSE METER OF CHOICE TESTING 1-2 TIMES DAILY DX;EII.65 Lancets lancets PT IS TO TEST BLOOD SUGAR 1-2 TIMES PER DAY DX:EII.65 alcohol swabs padm Apply 1 application to affected area twice daily. USE TO CLEANSE ARE FOR B/S TESTING 1-2 TIMES PER DAY DX:EII.65 cholecalciferol (VITAMIN D-3) 2,000 unit tablet Take 2,000 Units by mouth once daily. lancets (GMATE LANCETS) 30 gauge misc DM2, 250.00, non insulin dependent, testing 1-2 times a day No current facility-administered medications for this visit. EXAM: Last 3 Encounter BP Readings: Date: BP: 04/23/2022 120/70 12/24/2021 128/64 12/10/2021 136/82 Wt: 81.6 kg (180 lb) BMI: 32.92 kg/(m^2) LABS: Lab Results Component Value Date HBA1C 9.2 04/18/2022 HBA1C 9.1 01/30/2022 HBA1C 7.9 06/01/2021 HBA1C 8.5 02/27/2021 HBA1C 8.0 11/03/2020 CMP: Glucose 172 04/18/2022 BUN 21 04/18/2022 Creatinine 1.04 04/18/2022 Sodium 139 04/18/2022 Potassium 4.3 04/18/2022 Chloride 104 04/18/2022 CO2 24 04/18/2022 Protein, Total 6.9 04/18/2022 Albumin 4.1 04/18/2022 Calcium 9.5 04/18/2022 Alkaline Phosphatase 108 04/18/2022 Bilirubin, Total 0.3 04/18/2022 AST 58 04/18/2022 ALT 53 04/18/2022 EGFR: 58 mL/min/1.73m2 Vitamin B12 Date Value Ref Range Status 01/30/2022 493 232-1,245 pg/mL Final Lab Results Component Value Date CHOL 226 04/18/2022 CHOL 213 11/03/2020 CHOL 195 08/03/2020 LDL 133 04/18/2022 LDL 116 11/03/2020 LDL 105 08/03/2020 HDL 37 04/18/2022 HDL 34 11/03/2020 HDL 34 08/03/2020 TG 279 04/18/2022 TG 314 11/03/2020 TG 279 08/03/2020 The 10-year ASCVD risk score (Libradodot COLLINS Jr., et al., 2013) is: 22.7% Values used to calculate the score: Age: 71 years Sex: Female Is Non- : No Diabetic: Yes Tobacco smoker: No Systolic Blood Pressure: 120 mmHg Is BP treated: Yes HDL Cholesterol: 37 mg/dL Total Cholesterol: 226 mg/dL Albumin/Creat Ratio (mg/g) Date Value 08/03/2020 16 PHARMACOTHERAPY ASSESSMENT/PLAN: 1. Type 2 diabetes mellitus with stage 3 chronic kidney disease, with long-term current use of insulin, unspecified whether stage 3a or 3b CKD (HCC) - ICD9: 250.40, 585.3, V58.67, ICD10: E11.22, N18.30, Z79.4 A1c goal < 8%; uncontrolled (last A1c 9.1%) BG readings remain elevated. Patient endorses adherence to regimen and attributes elevated readings to diet excursions. Today, increased bolus insulin for improved post-prandial BG coverage and encouraged to keep a food diary log. CONTINUE Basaglar 46 units twice daily (updated med list to match current dose) INCREASE Humalog to 16 units three times daily before meals plus sliding scale Add 0 units if BS(blood sugar) is between 70-150 Add 1 units if BS is between 151-200 Add 2 units if BS is between 201-250 Add 3 units if BS is between 251-300 Add 4 units if BS is between 301-350 Add 5 units if BS is between 351-400 BS > 400 , call your physician - INSULIN GLARGINE (U-100) 100 UNIT/ML (3 ML) SUBCUTANEOUS PEN - ALBUMIN/CREAT RATIO RND UR - INSULIN LISPRO (U-100) 100 UNIT/ML SUBCUTANEOUS PEN Follow up: Patient is scheduled to see PCP on 07/29/22. Patient to follow up with PharmD on 07/11/22. Patient verbalized understanding of instructions. Farhad Pimentel PharmD, BCACP Primary Care Clinical Pharmacist [facility] The majority of the pharmacy visit (> 50%) was spent counseling and/or coordinating care for thepatient. [Face to Face] time was 25 minutes. documented in this encounterReg[facility]-25-2022 Instructions* Patient Instructions* Farhad Pimentel RPh - 06/10/2022 9:00 AM EDT Continue Basaglar 46 units twice daily Increase Humalog to 16 units three times daily before meals plus sliding scale Add 0 units if BS(blood sugar) is between 70-150 Add 1 units if BS is between 151-200 Add 2 units if BS is between 201-250 Add 3 units if BS is between 251-300 Add 4 units if BS is between 301-350 Add 5 units if BS is between 351-400 BS > 400 , call your physician documented in this encounterRegency Hospital [facility]06-28-2022 Miscellaneous Notes* Telephone Encounter - Farhad Pimentel RPh - 05/14/2022 1:08 PM EDT Patient left voicemail on the pharmacy line stating she may need to reschedule visit on 05/15. Returned call to patient, Left voicemail notifying her that next available appointment in office is 05/27. Farhad Pimentel, PharmD, BCACP Primary Care Clinical Pharmacist [facility] documented in this encounterRegency Hospital [facility]06-28-2022 Miscellaneous Notes* Telephone Encounter - Michaela Bates RN - 05/14/2022 10:32 AM EDT Patient returned call and given provider's message below and patient verbalized understanding. Ryan Bates RN * Telephone Encounter - Trisha Fernando Ma - 05/10/2022 4:19 PM EDT left with patient to contact office for results Trisha Fernando Ma * Telephone Encounter - Demetra Navarrete APRN.CNP - 05/10/2022 3:58 PM EDT Please let Opal know that we received her mammogram results. No concern for malignancy/cancer, recommend continuing to follow up yearly with screening mammogram. Demetra Navarrete APRN.CNP documented in this encounterRegency Hospital [facility]06-24-2022 Miscellaneous Notes* Letter - Mammography Coordinator - 05/10/2022 2:52 PM EDT May 10, 2022 PID: [id number] Angeli Rees [address] [place] [address] Dear Ms. Rees, We are pleased to inform you that the results of your recent breast imaging exam on 05/10/2022 are normal. Your mammogram demonstrates that you have dense breast tissue, which could hide abnormalities. Dense breast tissue, in and of itself, is a relatively common condition. Therefore, this information is not provided to cause undue concern; rather, it is to raise your awareness and promote discussion with your health care provider regarding the presence of dense breast tissue in addition to other riskfactors. Early detection of cancer is very important. We also understand recommendations regarding breast cancer screening are controversial. Please discuss with your primary care provider which strategy is best for you and whether a mammogram is right for you. Your imaging studies and report will be kept [facility] at [facility] as part of your permanent medical record and are available for your continuing care. Thank you for allowing us to help in meeting your health care needs. Sincerely, Dr. Bazan Interpreting Radiologist [facility] (Normal over 40) documented in this encounterRegency Hospital [facility]06-24-2022 Miscellaneous Notes* Telephone Encounter - Naya Montesinos APRN.CNP - 05/10/2022 12:31 PM EDT PDMP website checked and validated. All prescriptions have been APPROPRIATELY filled. No suspiciousactivity was identified. 05/10/2022 by Naya Montesinos APRN.CNP The following approved medication requests have been transmitted electronically. Signed Prescriptions Disp Refills LORazepam (ATIVAN) 2 mg tab 30 tablet 1 Sig: Take 1 tablet by mouth at bedtime as needed for up to 30 days. LISANRDA Class: C-IV DARRYL: No Authorizing Provider: NAYA MONTESINOS APRN.CNP * Telephone Encounter - Valentina Ron Pss - 05/10/2022 11:24 AM EDT Pharmacy verified in Epic Patient has been identified by name and date of : Yes Patient aware RX will be sent to pharmacy. No need to notify patient. Patient phones for refill(s): Pending Prescriptions Disp Refills LORAZEPAM 2 MG TABLET 30 tablet 1 Sig: Take 1 tablet by mouth at bedtime as needed for up to 30 days. LISANDRA Class: C-IV DARRYL: No Date of last office visit : Visit date not found Date of next office visit : Visit date not found Last 2 Encounter Wt Readings: Date: Wt: 04/23/2022 81.6 kg (180 lb) 12/24/2021 81.2 kg (179 lb) Please advise. Valentina Ron Pss documented in this encounterRegency Hospital [facility]06-24-2022 History of Present illness Narrative* RT Chava(R) - 05/10/2022 12:30 PM EDT Radiology Service Progress Note PATIENT NAME: Angeli Rees DATE OF SERVICE: May 10, 2022 TIME: 12:34 PM PATIENT IDENTITY VERIFICATION COMPLETED USING TWO (2) IDENTIFIERS: Name and Date of confirmedby patient verbally. FALL SCREENING: Has the patient had 2 falls in the last year or 1 fall with injury or currently using an Ambulatory Assistive Device (Walker, Cane, Wheelchair, Crutches, etc.)? No PATIENT GENDER DATA: Female. status: : No status: NO. PATIENT RELEVANT IMPLANT DATA REVIEWED: Not Applicable RADIOLOGY DEPARTMENT: Mammography PERIPHERAL IV DATA: Not applicable SIGNED BY: RT Chava(R) May 10, 2022 12:34 PM documented in this encounterRegency Hospital [facility]06-06-2022 Evaluation note* Diagnosis Type 2 diabetes mellitus with stage 3 chronic kidney disease, with long-term current use of insulin, unspecified whether stage 3a or 3b CKD (HCC) documented in this encounter [facility]-26-[facility] Miscellaneous Notes* Telephone Encounter - Demetra Navarrete APRN.CNP - 04/11/2022 10:44 AM EDT The following approved medication requests have been transmitted electronically. Signed Prescriptions Disp Refills LORazepam (ATIVAN) 2 mg tab 30 tablet 1 Sig: Take 1 tablet by mouth at bedtime as needed for up to 30 days. LISANDRA Class: C-IV DARRYL: No Authorizing Provider: DEMETRA NAVARRETE APRN.CNP PDMP website checked and validated. All prescriptions have been APPROPRIATELY filled. No suspiciousactivity was identified. 04/11/2022 by Demetra Navarrete CNP. * Telephone Encounter - Marisol Ramirez LPN - 04/11/2022 10:37 AM EDT Patient has been identified by name and date of : Yes Patient phones for refill(s): Pending Prescriptions Disp Refills LORAZEPAM 2 MG TABLET 30 tablet 0 Sig: Take 1 tablet by mouth at bedtime as needed for up to 30 days. LISANDRA Class: C-IV DARRYL: No Date of last office visit in primary care: 12/24/2021, has appt 04/23/2022 Last 2 Encounter Wt Readings: Date: Wt: 12/24/2021 81.2 kg (179 lb) 12/10/2021 82.5 kg (181 lb 12.8 oz) Previous labs/tests for medication: Not applicable Please advise. Thank you. Marisol Ramirez LPN Patient is out of medication. documented in this encounterRegency Hospital [facility]05-25-2022 History of Present illness Narrative* Farhad Pimentel, [facility] - 04/10/2022 1:00 PM EDT Images from the original note were not included. Primary Care Pharmacy Visit REASON FOR CONSULT: DM GOALS: A1c < 8% CONSULTING PROVIDER: Dr. Pearce Date of Consult: 06/08/18 Angeli Rees is a 71 year old female presenting for follow up visit in person. Patient consents [facility] agreement. Last seen by PCP, Dr. Mariano Pearce, DO on 12/24/21. At last PharmD visit on 12/19, instructed patient to increase bolus insulin with dinner and to utilize sliding scale as post prandial readings in the evening were above goal. At PCP visit amoxicillin wasinitiated for acute bronchitis. At PharmD visit on 01/23, no medication changes were made, instructedpatient to complete labs. When labs showed elevated A1c, insulin dose was increased. At last PharmDvisit on 03/13, insulin glargine dose was increased. INTERIM HISTORY: Reports readings have not been good States she has started having evening meal late in evening around 10pm Does not feel hungry around dinner time so she delays meal then finds she is starving by night timeand has large meal Not adding to bolus dose per sliding scale States she feels fine when readings are higher, only feels off if they are low so does not see why she would need to use sliding scale Is only injecting base amount of Humalog dose, has not been adding per sliding scale Most days only scanning with CGM 1-2 times daily Current DM Medications: Insulin glargine (Basaglar) 44 units twice daily Insulin lispro (Humalog) 14 units before breakfast and lunch and 16 units before dinner PLUS sliding scale Add 0 units if BS(blood sugar) is between 70-150 Add 1 units if BS is between 151-200 Add 2 units if BS is between 201-250 Add 3 units if BS is between 251-300 Add 4 units if BS is between 301-350 Add 5 units if BS is between 351-400 BS > 400 , call your physician Past DM medications tried and stopped: Glipizide Metformin ER (GI intolerance) Liraglutide - cost-prohibitive; did not offer much BG-lowering Trulicity - stomach issues + HIPOLITO Preventative Medications: On STEPHANIA/ARB: Yes On Statin: No GLYCEMIC CONTROL: CGM Report Summary of Professional CGM Findings: 1- CGM recording is adequate for interpretation. 2- Average glucose is 226 mg/dL. 3- Total frequency of hypoglycemia: none 4- Nocturnal hypoglycemia was not noted. 5- Hyperglycemic episodes: 64% 6- Time in target range (70-180 mg/dL): 36% ROS: Patient denies CP, SOB, FREEDMAN, blurred vision, dizziness or lightheadedness Patient denies nausea, vomiting, diarrhea, abdominal pain Patient denies symptoms of hypoglycemia (sweating, anxiety, palpitations, hunger, and tremor) Patient denies symptoms of hyperglycemia (polyuria, polydipsia, polyphagia) Patient denies potential medication adverse effects MEDICATIONS: Pill bottles are not present Adherence: denies missed doses Pharmacy: [facility] or [facility] Rx coverage: Medicare Part D ([employer]) Affordability: no issues, gets Trulicity and Basaglar through [facility] Diabetes supplies: [employer] System: pill box ACTIVE PROBLEM LIST Allergic Rhinitis, Cause Unspecified Essential Hypertension, Benign Type 2 Diabetes Mellitus With Stage 3 Chronic Kidney Disease, With Long-Term Current Use of Insulin([facility]) Acquired Hypothyroidism Symptomatic Menopausal Or Female Climacteric States Gerd (Gastroesophageal Reflux Disease) Diverticulosis of Colon Kidney Stone Elevated Lfts Postmenopausal Atrophic Vaginitis Internal Hemorrhoids Without Mention of Complication Chronic Kidney Disease (Ckd) Stage G3a/A2, Moderately Decreased Glomerular Filtration Rate (Gfr) Between 45-59 Ml/Min/1.73 Square Meter and Albuminuria Creatinine Ratio Between 30-299 Mg/G ([facility]) Obesity, Class I, Bmi 30-34.9 Dysuria Mixed Hyperlipidemia Gerd Without Esophagitis Pmr (Polymyalgia Rheumatica) ([facility]) Arthritis, Multiple Joint Involvement Hypertension Dyslipidemia Chronic Insomnia Rls (Restless Legs Syndrome) Gout Involving Toe of Right Foot Hypertensive Kidney Disease With Stage 3 Chronic Kidney Disease ([facility]) Uncontrolled Type 2 Diabetes Mellitus With Hyperglycemia ([facility]) Acquired Trigger Finger of Left Ring Finger Osteopenia, Senile Situational Anxiety Vitamin D Deficiency PAST MEDICAL HISTORY Diagnosis Date Allergic rhinitis, cause unspecified Allergic rhinitis Arthritis Benign hypertensive heart disease without heart failure BPPV (benign paroxysmal positional vertigo) Chronic kidney disease (CKD) stage G3a/A2, moderately decreased glomerular filtration rate (GFR) between 45-59 mL/min/1.73 square meter and albuminuria creatinine ratio between 30-299 mg/g (HCC) Diverticulitis Esophageal reflux Fatty liver Fibromyalgia Gastric polyp 07/04/14 Dr. Spence, needs repeat EGD in 01/01 Gout right great toe Hernia of other specified sites of abdominal cavity without mention of obstruction or gangrene HIATAL Hypertension IBS (irritable bowel syndrome) Irritable bowel syndrome Leiomyoma of uterus Other and unspecified hyperlipidemia PONV (postoperative nausea and vomiting) 03/11/2018 Renal calculi Snoring Type II or unspecified type diabetes mellitus without mention of complication, not stated as uncontrolled Unspecified hemorrhoids without mention of complication Hemorrhoids Unspecified hypothyroidism ALLERGIES Allergen Reactions Crestor [Rosuvastat* Other: See Comments Legs achy Niacin Itching Erythromycin GI Upset Iodine Rash Latex reddness Lescol [Fluvastatin* GI Upset Lipitor [Atorvastat* Intolerance Muscle aching Naprosyn [Naproxen] uncertain Pravastatin Myalgia Arm pain Lmvouam-Epo-Paa Red* Intolerance Sulfa (Sulfonamide * Hives Trulicity [Dulaglut* GI Upset Vomiting, diarrhea Hospitalized Vibramycin [Doxycyc* GI Upset Vioxx [Rofecoxib] Swelling Zocor [Simvastatin] uncertain Current Outpatient Medications Medication Sig insulin glargine (LANTUS SOLOSTAR, BASAGLAR KWIKPEN) 100 unit/mL (3 mL) Inject 44 Units subcutaneously every 12 hours. LORazepam (ATIVAN) 2 mg tab Take 1 tablet by mouth at bedtime as needed for up to 30 days. metoprolol tartrate, short acting, (LOPRESSOR) 100 mg tablet Take 1 tablet by mouth twice daily. omeprazole (PRILOSEC) 40 mg capsule Take 1 capsule by mouth once daily. insulin lispro (HUMALOG KWIKPEN INSULIN) 100 unit/mL Inject 14 Units subcutaneously daily with breakfast AND 14 Units daily with lunch AND 16 Units daily with dinner. enalapril (VASOTEC) 20 mg tablet Take 1 tablet by mouth twice daily. enalapril (VASOTEC) 20 mg tablet Take 1 tablet by mouth once daily. levothyroxine (SYNTHROID) 112 mcg tablet Take 1 tablet by mouth 6 days per week. Take 1/2 tablet bymouth 1 day per week. For thyroid. citalopram (CELEXA) 20 mg tablet Take 1 tablet by mouth once daily. citalopram hydrobromide (CELEXA) 10 mg tablet Take 1 tablet by mouth once daily. levothyroxine (SYNTHROID) 112 mcg tablet Take 1 tablet by mouth 6 days per week. Take 1/2 tablet bymouth 1 day per week. For thyroid. amLODIPine (NORVASC) 5 mg tablet Take 1 tablet by mouth once daily. amLODIPine (NORVASC) 5 mg tablet Take 1 tablet by mouth once daily. citalopram (CELEXA) 20 mg tablet Take 1 tablet by mouth once daily. ezetimibe (ZETIA) 10 mg tablet Take 1 tablet by mouth once daily. For cholesterol triamcinolone acetonide (KENALOG) 0.1 % cream Apply 1 application to affected area twice daily. Forrash on right ear, Apply sparingly to area for rash/itching. flash glucose scanning reader ([employer] BETSEY 14 DAY READER) Use to check blood sugar as directed. colchicine (COLCRYS) 0.6 mg tablet Take 1 tablet by mouth twice daily. For acute gout flare up colchicine (COLCRYS) 0.6 mg tablet Take 1 tablet by mouth once daily for 7 days. For acute gout flare up Insulin [place], Disposable, (BD ULTRA-FINE PATRICIO PEN NEEDLE) 32 gauge x Use 4 pen needles daily with Basaglar and Humalog furosemide (LASIX) 20 mg tablet TAKE 1 TABLET BY MOUTH DAILY X3 DAYS, THEN TAKE DAILY NEEDED FORFEET SWELLING. traZODone (DESYREL) 100 mg tablet Take 1 tablet by mouth daily at bedtime. busPIRone (BUSPAR) 5 mg tablet Take 1-2 tablets by mouth at bedtime as needed (insomnia). apremilast (OTEZLA) 30 mg tablet Take 30 mg by mouth once daily. blood sugar diagnostic (A[employer] Software[employer]CH ULTRA TEST) test strip Test blood sugar 3-4 times daily, DX: E11.65 Insulin: yes flash glucose sensor (LivescribeSTYLE BETSEY 14 DAY SENSOR) kit Apply sensor to back of arm to check bloodsugars as directed. Change sensor every 2 weeks and rotate arms. estradiol (ESTRACE) 0.01 % (0.1 mg/gram) vaginal cream Apply pea-sized amount to urethral opening twice a week. Lancing Device (LANCING DEVICE WITH LANCETS) [facility] Use to test blood sugar as directed. Blood-Glucose Meter (ONETOUCH ULTRA2) monitoring kit 1 Each as needed. Test blood sugar 3-4 times daily, DX: E11.65 Insulin: yes acetaminophen (TYLENOL) 325 mg tablet Take 2 tablets by mouth every 6 hours as needed for Pain. aspirin, enteric coated (ASPIR-LOW) 81 mg EC tablet Take 1 tablet by mouth once daily. COMPOUNDED PRESCRIPTION BLOOD GLUCOSE METER OF CHOICE TESTING 1-2 TIMES DAILY DX;EII.65 Lancets lancets PT IS TO TEST BLOOD SUGAR 1-2 TIMES PER DAY DX:EII.65 alcohol swabs padm Apply 1 application to affected area twice daily. USE TO CLEANSE ARE FOR B/S TESTING 1-2 TIMES PER DAY DX:EII.65 cholecalciferol (VITAMIN D-3) 2,000 unit tablet Take 2,000 Units by mouth once daily. lancets (GMATE LANCETS) 30 gauge [facility] DM2, 250.00, non insulin dependent, testing 1-2 times a day No current facility-administered medications for this visit. EXAM: Last 3 Encounter BP Readings: Date: BP: 12/24/2021 128/64 12/10/2021 136/82 09/12/2021 136/74 Wt: 81.2 kg (179 lb) BMI: 32.74 kg/(m^2) LABS: Lab Results Component Value Date HBA1C 9.1 01/30/2022 HBA1C 7.9 06/01/2021 HBA1C 8.5 02/27/2021 HBA1C 8.0 11/03/2020 CMP: Glucose 275 01/30/2022 BUN 13 01/30/2022 Creatinine 1.07 01/30/2022 Sodium 136 01/30/2022 Potassium 4.6 01/30/2022 Chloride 104 01/30/2022 CO2 26 01/30/2022 Protein, Total 6.3 01/30/2022 Albumin 3.9 01/30/2022 Calcium 8.9 01/30/2022 Alkaline Phosphatase 137 01/30/2022 Bilirubin, Total <0.2 01/30/2022 AST 38 01/30/2022 ALT 52 01/30/2022 EGFR: 58 mL/min/1.73m2 Vitamin B12 Date Value Ref Range Status 01/30/2022 493 232-1,245 pg/mL Final Lab Results Component Value Date CHOL 220 01/30/2022 CHOL 213 11/03/2020 CHOL 195 08/03/2020 LDL 01/30/2022 Comment: Unable to calculate due to increased Triglycerides. See LDL-Chol, Direct. LDL 116 11/03/2020 LDL 105 08/03/2020 HDL 30 01/30/2022 HDL 34 11/03/2020 HDL 34 08/03/2020 TG 402 01/30/2022 TG 314 11/03/2020 TG 279 08/03/2020 The 10-year ASCVD risk score (Libradodot COLLINS Jr., et al., 2013) is: 26.2% Values used to calculate the score: Age: 71 years Sex: Female Is Non- : No Diabetic: Yes Tobacco smoker: No Systolic Blood Pressure: 128 mmHg Is BP treated: Yes HDL Cholesterol: 30 mg/dL Total Cholesterol: 220 mg/dL Albumin/Creat Ratio (mg/g) Date Value 08/03/2020 16 PHARMACOTHERAPY ASSESSMENT/PLAN: 1. Type 2 diabetes mellitus with stage 3 chronic kidney disease, with long-term current use of insulin, unspecified whether stage 3a or 3b CKD (HCC) - ICD9: 250.40, 585.3, V58.67, ICD10: E11.22, N18.30, Z79.4 A1c goal < 8%; uncontrolled (last A1c 9.1%) BG readings remain elevated. Elevation in BG due to diet excursions, late heavy meal and not utilizing sliding scale with bolus insulin. Today, encouraged below lifestyle changes and consistent use of sliding scale. Renal function and LFTs appropriate for continued use Start using sliding scale with meal time insulin to help correct the blood sugars with meals. Can keep the sliding scale copies in purse, on insulin box and with reader so able to utilize it with every meal time Insulin lispro (Humalog) 14 units before breakfast and lunch and 16 units before dinner PLUS sliding scale Add 0 units if BS(blood sugar) is between 70-150 Add 1 units if BS is between 151-200 Add 2 units if BS is between 201-250 Add 3 units if BS is between 251-300 Add 4 units if BS is between 301-350 Add 5 units if BS is between 351-400 BS > 400 , call your physician CONTINUE Insulin glargine (Basaglar) 44 units twice daily Lifestyle goals: - Having 3 balanced meals daily, with enough protein and high fiber foods at each meal. - Trying to have an earlier dinner 7:30-8pm vs 10pm. - INSULIN GLARGINE (U-100) 100 UNIT/ML (3 ML) SUBCUTANEOUS PEN Follow up: Patient is scheduled to see PCP on 04/23/22. Patient to follow up with PharmD on 05/15/22. Patient verbalized understanding of instructions. Farhad Pimentel PharmD, BCACP Primary Care Clinical Pharmacist [facility] The majority of the pharmacy visit (> 50%) was spent counseling and/or coordinating care for thepatient. [Face to Face] time was 28 minutes. documented in this encounterRegency Hospital [facility]05-25-2022 Instructions* Patient Instructions* Farhad Pimentel RPh - 04/10/2022 1:00 PM EDT Start using sliding scale with meal time insulin to help correct the blood sugars with meals. Can keep the sliding scale copies in purse, on insulin box and with reader so able to utilize it with every meal time Lifestyle goals: - Having 3 balanced meals daily, with enough protein and high fiber foods at each meal. - Trying to have an earlier dinner 7:30-8pm vs 10pm. documented in this encounterRegency Hospital [facility]04-25-2022 Miscellaneous Notes* Telephone Encounter - Naya Montesinos APRN.CNP - 03/11/2022 1:03 PM EDT PDMP website checked and validated. All prescriptions have been APPROPRIATELY filled. No suspiciousactivity was identified. 03/11/2022 by Naya Montesinos APRN.CNP The following approved medication requests have been transmitted electronically. Signed Prescriptions Disp Refills LORazepam (ATIVAN) 2 mg tab 30 tablet 0 Sig: Take 1 tablet by mouth at bedtime as needed for up to 30 days. LISANDRA Class: C-IV DARRYL: No Authorizing Provider: NAYA MONTESINOS APRN.CNP * Telephone Encounter - Michaela Bates RN - 03/11/2022 10:24 AM EDT Patient has been identified by name and date of : Yes Patient phones for refill(s): Pending Prescriptions Disp Refills LORAZEPAM 2 MG TABLET 30 tablet 0 Sig: Take 1 tablet by mouth at bedtime as needed for up to 30 days. LISANDRA Class: C-IV DARRYL: No Date of last office visit in primary care: 12/24/21, NOV: 04/23/22 Last 2 Encounter Wt Readings: Date: Wt: 12/24/2021 81.2 kg (179 lb) 12/10/2021 82.5 kg (181 lb 12.8 oz) Please advise. Thank you. Michaela Bates RN documented in this encounterRegency Hospital [facility]04-12-2022 Miscellaneous Notes* Telephone Encounter - Luz Purdy LPN - 02/26/2022 10:03 AM EDT Authorized from January 26, 2022 to February 26, 2023 Information received electronically from lauri welch for lorazepam documented in this encounterRegency Hospital [facility]03-31-2022 Miscellaneous Notes* Telephone Encounter - Farhad Pimentel RPh - 02/14/2022 4:58 PM EDT Called and reviewed readings with patient. She reports that blood sugar readings remain elevated inthe 200s and had a reading of 400 last night after meal. States no changes in diet or activity, she feels she has slightly increased stress but overall no other major changes. Plan: Increase Basaglar to 40 units BID Continue Humalog at same dose, if readings remain elevated after 1 week of increased Basaglar dose then patient can increase Humalog to 16 units TID meals. Pt verbalized understanding. Farhad Pimentel, ChristoD, BCACP Primary Care Clinical Pharmacist [facility] * Telephone Encounter - Farhad Pimentel RPh - 02/05/2022 2:34 PM EDT Attempted to reach patient to review last A1c result. LVM for patient to return call to [phone]. Patients A1c has trended up. Pt attributes A1c elevation to recent illness and antibiotics course. Her CGM patterns indicate blood sugars are most notably elevated during post prandial readings related to evening meals and snacking. Pt has been hesitant to try new medications as she developed vomiting and HIPOLITO on Trulicity in April of 2021. Past DM medications tried: Glipizide Metformin ER (GI intolerance) Liraglutide - cost-prohibitive; pt felt it did not offer much BG- lowering Trulicity - stomach issues + HIPOLITO Lab Results Component Value Date HBA1C 9.1 01/30/2022 HBA1C 7.9 06/01/2021 HBA1C 8.5 02/27/2021 HBA1C 8.0 11/03/2020 Farhad Pimentel, PharmD, BCACP Primary Care Clinical Pharmacist [facility]* Diagnosis Type 2 diabetes mellitus with stage 3 chronic kidney disease, with long-term current use of insulin, unspecified whether stage 3a or 3b CKD (HCC) documented in this encounter [facility] History of Present illness Narrative* Nahomy Lang, RT(R) - 12/10/2021 2:40 PM EST Radiology Service Progress Note PATIENT NAME: Angeli Rees DATE OF SERVICE: December 10, 2021 TIME: 2:38 PM PATIENT IDENTITY VERIFICATION COMPLETED USING TWO (2) IDENTIFIERS: Name and Date of confirmedby patient verbally. FALL SCREENING: Has the patient had 2 falls in the last year or 1 fall with injury or currently using an Ambulatory Assistive Device (Walker, Cane, Wheelchair, Crutches, etc.)? No PATIENT GENDER DATA: Female. status: : No status: NO. PATIENT RELEVANT IMPLANT DATA REVIEWED: Yes Pt had a Xdyniayle Betsey device that she chose to remover for imaging per the manufacturers guidelines. RADIOLOGY DEPARTMENT: General X-ray: Exam(s) Completed: Chest X-Ray PERIPHERAL IV DATA: Not applicable SIGNED BY: RT George(R) December 10, 2021 2:38 PM [facility] History of Past illness Narrative* Problem Noted Date Resolved Date Cough 02/16/2019 02/28/2020 Acute bacterial sinusitis 02/16/20192019 Visit for screening mammogram 02/16/2019 Myalgia 08/05/2018 02/28/2020 Uncontrolled type 2 diabetes mellitus without complication, without long-term current use of insulin 08/05/2018 02/28/2020 Right upper quadrant pain 08/05/20182019 Chest pain 08/05/2018 02/28/2020 PONV (postoperative nausea and vomiting) 018 02/28/2020 Pelvic mass 02/25/2018 08/24/2019 Overview: Added automatically from request for surgery [id number] Need for pneumococcal vaccination 12/26/2017 02/28/2020 Atrophic vaginitis 12/26/2017 02/28/2020 Adjustment insomnia 12/26/2017 02/28/2020 Yeast vaginitis 12/26/2017 02/28/2020 CKD (chronic kidney disease) 02/14/2016 Right lower quadrant abdominal pain 08/03/2015 02/28/2020 Diverticulitis of large intestine 08/03/2015 02/28/2020 Bronchitis 09/15/2012 02/28/2020 Unspecified pruritic disorder 10/12/2010 Disorder of bone and cartilage, unspecified 09/1802/28/2020 Routine general medical exam ination at a health care facility 03/16/2010 12/14/2014 Overview: 03/16/2010, from Dr. Padgett 02/26/2011, yearly check Routine gynecological examination 03/16/2010 12/14/2014 Overview: [facility] [place] Pruritus of genital organs 09/06/200803/16 Abdominal pain, generalized 10/16/200702/17 Other diseases of lung, not elsewhere classified 11/07/2005 02/28/2020 Hyperlipidemia 07/19/2005 02/28/2020 documented as of this encounter (statuses as of 02/14/2022) [facility] History of Past illness Narrative* Problem Noted Date Resolved Date Cough 02/16/2019 02/28/2020 Acute bacterial sinusitis 02/16/20192019 Visit for screening mammogram 02/16/2019 Myalgia 08/05/2018 02/28/2020 Uncontrolled type 2 diabetes mellitus without complication, without long-term current use of insulin 08/05/2018 02/28/2020 Right upper quadrant pain 08/05/20182019 Chest pain 08/05/2018 02/28/2020 PONV (postoperative nausea and vomiting) 018 02/28/2020 Pelvic mass 02/25/2018 08/24/2019 Overview: Added automatically from request for surgery [id number] Need for pneumococcal vaccination 12/26/2017 02/28/2020 Atrophic vaginitis 12/26/2017 02/28/2020 Adjustment insomnia 12/26/2017 02/28/2020 Yeast vaginitis 12/26/2017 02/28/2020 CKD (chronic kidney disease) 02/14/2016 Right lower quadrant abdominal pain 08/03/2015 02/28/2020 Diverticulitis of large intestine 08/03/2015 02/28/2020 Bronchitis 09/15/2012 02/28/2020 Unspecified pruritic disorder 10/12/2010 Disorder of bone and cartilage, unspecified 09/1802/28/2020 Routine general medical exam ination at a health care facility 03/16/2010 12/14/2014 Overview: 03/16/2010, from Dr. Padgett 02/26/2011, yearly check Routine gynecological examination 03/16/2010 12/14/2014 Overview: [facility] [place] Pruritus of genital organs 09/06/200803/16 Abdominal pain, generalized 10/16/200702/17 Other diseases of lung, not elsewhere classified 11/07/2005 02/28/2020 Hyperlipidemia 07/19/2005 02/28/2020 documented as of this encounter (statuses as of 02/26/2022) [facility] History of Past illness Narrative* Problem Noted Date Resolved Date Cough 02/16/2019 02/28/2020 Acute bacterial sinusitis 02/16/20192019 Visit for screening mammogram 02/16/2019 Myalgia 08/05/2018 02/28/2020 Uncontrolled type 2 diabetes mellitus without complication, without long-term current use of insulin 08/05/2018 02/28/2020 Right upper quadrant pain 08/05/20182019 Chest pain 08/05/2018 02/28/2020 PONV (postoperative nausea and vomiting) 018 02/28/2020 Pelvic mass 02/25/2018 08/24/2019 Overview: Added automatically from request for surgery [id number] Need for pneumococcal vaccination 12/26/2017 02/28/2020 Atrophic vaginitis 12/26/2017 02/28/2020 Adjustment insomnia 12/26/2017 02/28/2020 Yeast vaginitis 12/26/2017 02/28/2020 CKD (chronic kidney disease) 02/14/2016 Right lower quadrant abdominal pain 08/03/2015 02/28/2020 Diverticulitis of large intestine 08/03/2015 02/28/2020 Bronchitis 09/15/2012 02/28/2020 Unspecified pruritic disorder 10/12/2010 Disorder of bone and cartilage, unspecified 09/1802/28/2020 Routine general medical exam ination at a health care facility 03/16/2010 12/14/2014 Overview: 03/16/2010, from Dr. Padgett 02/26/2011, yearly check Routine gynecological examination 03/16/2010 12/14/2014 Overview: [facility], [facility] [place] Pruritus of genital organs 09/06/200803/16 Abdominal pain, generalized 10/16/200702/17 Other diseases of lung, not elsewhere classified 11/07/2005 02/28/2020 Hyperlipidemia 07/19/2005 02/28/2020 documented as of this encounter (statuses as of 03/11/2022) [facility] of Past illness Narrative* Problem Noted Date Resolved Date Cough 02/16/2019 02/28/2020 Acute bacterial sinusitis 02/16/20192019 Visit for screening mammogram 02/16/2019 Myalgia 08/05/2018 02/28/2020 Uncontrolled type 2 diabetes mellitus without complication, without long-term current use of insulin 08/05/2018 02/28/2020 Right upper quadrant pain 08/05/20182019 Chest pain 08/05/2018 02/28/2020 PONV (postoperative nausea and vomiting) 018 02/28/2020 Pelvic mass 02/25/2018 08/24/2019 Overview: Added automatically from request for surgery [id number] Need for pneumococcal vaccination 12/26/2017 02/28/2020 Atrophic vaginitis 12/26/2017 02/28/2020 Adjustment insomnia 12/26/2017 02/28/2020 Yeast vaginitis 12/26/2017 02/28/2020 CKD (chronic kidney disease) 02/14/2016 Right lower quadrant abdominal pain 08/03/2015 02/28/2020 Diverticulitis of large intestine 08/03/2015 02/28/2020 Bronchitis 09/15/2012 02/28/2020 Unspecified pruritic disorder 10/12/2010 Disorder of bone and cartilage, unspecified 09/1802/28/2020 Routine general medical exam ination at a health care facility 03/16/2010 12/14/2014 Overview: 03/16/2010, from Dr. Padgett 02/26/2011, yearly check Routine gynecological examination 03/16/2010 12/14/2014 Overview: [facility], [facility] [place] Pruritus of genital organs 09/06/200803/16 Abdominal pain, generalized 10/16/200702/17 Other diseases of lung, not elsewhere classified 11/07/2005 02/28/2020 Hyperlipidemia 07/19/2005 02/28/2020 documented as of this encounter (statuses as of 04/11/2022) [facility] History of Past illness Narrative* Problem Noted Date Resolved Date Cough 02/16/2019 02/28/2020 Acute bacterial sinusitis 02/16/20192019 Visit for screening mammogram 02/16/2019 Myalgia 08/05/2018 02/28/2020 Uncontrolled type 2 diabetes mellitus without complication, without long-term current use of insulin 08/05/2018 02/28/2020 Right upper quadrant pain 08/05/20182019 Chest pain 08/05/2018 02/28/2020 PONV (postoperative nausea and vomiting) 018 02/28/2020 Pelvic mass 02/25/2018 08/24/2019 Overview: Added automatically from request for surgery [id number] Need for pneumococcal vaccination 12/26/2017 02/28/2020 Atrophic vaginitis 12/26/2017 02/28/2020 Adjustment insomnia 12/26/2017 02/28/2020 Yeast vaginitis 12/26/2017 02/28/2020 CKD (chronic kidney disease) 02/14/2016 Right lower quadrant abdominal pain 08/03/2015 02/28/2020 Diverticulitis of large intestine 08/03/2015 02/28/2020 Bronchitis 09/15/2012 02/28/2020 Unspecified pruritic disorder 10/12/2010 Disorder of bone and cartilage, unspecified 09/1802/28/2020 Routine general medical exam ination at a health care facility 03/16/2010 12/14/2014 Overview: 03/16/2010, from Dr. Padgett 02/26/2011, yearly check Routine gynecological examination 03/16/2010 12/14/2014 Overview: [facility] [place] Pruritus of genital organs 09/06/200803/16 Abdominal pain, generalized 10/16/200702/17 Other diseases of lung, not elsewhere classified 11/07/2005 02/28/2020 Hyperlipidemia 07/19/2005 02/28/2020 documented as of this encounter (statuses as of 04/22/2022) [facility] History of Past illness Narrative* Problem Noted Date Resolved Date Cough 02/16/2019 02/28/2020 Acute bacterial sinusitis 02/16/20192019 Visit for screening mammogram 02/16/2019 Myalgia 08/05/2018 02/28/2020 Uncontrolled type 2 diabetes mellitus without complication, without long-term current use of insulin 08/05/2018 02/28/2020 Right upper quadrant pain 08/05/20182019 Chest pain 08/05/2018 02/28/2020 PONV (postoperative nausea and vomiting) 018 02/28/2020 Pelvic mass 02/25/2018 08/24/2019 Overview: Added automatically from request for surgery [id number] Need for pneumococcal vaccination 12/26/2017 02/28/2020 Atrophic vaginitis 12/26/2017 02/28/2020 Adjustment insomnia 12/26/2017 02/28/2020 Yeast vaginitis 12/26/2017 02/28/2020 CKD (chronic kidney disease) 02/14/2016 Right lower quadrant abdominal pain 08/03/2015 02/28/2020 Diverticulitis of large intestine 08/03/2015 02/28/2020 Bronchitis 09/15/2012 02/28/2020 Unspecified pruritic disorder 10/12/2010 Disorder of bone and cartilage, unspecified 09/1802/28/2020 Routine general medical exam ination at a health care facility 03/16/2010 12/14/2014 Overview: 03/16/2010, from Dr. Padgett 02/26/2011, yearly check Routine gynecological examination 03/16/2010 12/14/2014 Overview: [facility] [place] Pruritus of genital organs 09/06/200803/16 Abdominal pain, generalized 10/16/200702/17 Other diseases of lung, not elsewhere classified 11/07/2005 02/28/2020 Hyperlipidemia 07/19/2005 02/28/2020 documented as of this encounter (statuses as of 05/10/2022) [facility] History of Past illness Narrative* Problem Noted Date Resolved Date Cough 02/16/2019 02/28/2020 Acute bacterial sinusitis 02/16/20192019 Visit for screening mammogram 02/16/2019 Myalgia 08/05/2018 02/28/2020 Uncontrolled type 2 diabetes mellitus without complication, without long-term current use of insulin 08/05/2018 02/28/2020 Right upper quadrant pain 08/05/20182019 Chest pain 08/05/2018 02/28/2020 PONV (postoperative nausea and vomiting) 018 02/28/2020 Pelvic mass 02/25/2018 08/24/2019 Overview: Added automatically from request for surgery [id number] Need for pneumococcal vaccination 12/26/2017 02/28/2020 Atrophic vaginitis 12/26/2017 02/28/2020 Adjustment insomnia 12/26/2017 02/28/2020 Yeast vaginitis 12/26/2017 02/28/2020 CKD (chronic kidney disease) 02/14/2016 Right lower quadrant abdominal pain 08/03/2015 02/28/2020 Diverticulitis of large intestine 08/03/2015 02/28/2020 Bronchitis 09/15/2012 02/28/2020 Unspecified pruritic disorder 10/12/2010 Disorder of bone and cartilage, unspecified 09/1802/28/2020 Routine general medical exam ination at a health care facility 03/16/2010 12/14/2014 Overview: 03/16/2010, from Dr. Padgett 02/26/2011, yearly check Routine gynecological examination 03/16/2010 12/14/2014 Overview: [facility] [place] Pruritus of genital organs 09/06/200803/16 Abdominal pain, generalized 10/16/200702/17 Other diseases of lung, not elsewhere classified 11/07/2005 02/28/2020 Hyperlipidemia 07/19/2005 02/28/2020 documented as of this encounter (statuses as of 05/11/2022) [facility] History of Past illness Narrative* Problem Noted Date Resolved Date Cough 02/16/2019 02/28/2020 Acute bacterial sinusitis 02/16/20192019 Visit for screening mammogram 02/16/2019 Myalgia 08/05/2018 02/28/2020 Uncontrolled type 2 diabetes mellitus without complication, without long-term current use of insulin 08/05/2018 02/28/2020 Right upper quadrant pain 08/05/20182019 Chest pain 08/05/2018 02/28/2020 PONV (postoperative nausea and vomiting) 018 02/28/2020 Pelvic mass 02/25/2018 08/24/2019 Overview: Added automatically from request for surgery [id number] Need for pneumococcal vaccination 12/26/2017 02/28/2020 Atrophic vaginitis 12/26/2017 02/28/2020 Adjustment insomnia 12/26/2017 02/28/2020 Yeast vaginitis 12/26/2017 02/28/2020 CKD (chronic kidney disease) 02/14/2016 Right lower quadrant abdominal pain 08/03/2015 02/28/2020 Diverticulitis of large intestine 08/03/2015 02/28/2020 Bronchitis 09/15/2012 02/28/2020 Unspecified pruritic disorder 10/12/2010 Disorder of bone and cartilage, unspecified 09/1802/28/2020 Routine general medical exam ination at a health care facility 03/16/2010 12/14/2014 Overview: 03/16/2010, from Dr. Padgett 02/26/2011, yearly check Routine gynecological examination 03/16/2010 12/14/2014 Overview: [facility] [place] Pruritus of genital organs 09/06/200803/16 Abdominal pain, generalized 10/16/200702/17 Other diseases of lung, not elsewhere classified 11/07/2005 02/28/2020 Hyperlipidemia 07/19/2005 02/28/2020 documented as of this encounter (statuses as of 05/14/2022) [facility] of Past illness Narrative* Problem Noted Date Resolved Date Cough 02/16/2019 02/28/2020 Acute bacterial sinusitis 02/16/20192019 Visit for screening mammogram 02/16/2019 Myalgia 08/05/2018 02/28/2020 Uncontrolled type 2 diabetes mellitus without complication, without long-term current use of insulin 08/05/2018 02/28/2020 Right upper quadrant pain 08/05/20182019 Chest pain 08/05/2018 02/28/2020 PONV (postoperative nausea and vomiting) 018 02/28/2020 Pelvic mass 02/25/2018 08/24/2019 Overview: Added automatically from request for surgery [id number] Need for pneumococcal vaccination 12/26/2017 02/28/2020 Atrophic vaginitis 12/26/2017 02/28/2020 Adjustment insomnia 12/26/2017 02/28/2020 Yeast vaginitis 12/26/2017 02/28/2020 CKD (chronic kidney disease) 02/14/2016 Right lower quadrant abdominal pain 08/03/2015 02/28/2020 Diverticulitis of large intestine 08/03/2015 02/28/2020 Bronchitis 09/15/2012 02/28/2020 Unspecified pruritic disorder 10/12/2010 Disorder of bone and cartilage, unspecified 09/1802/28/2020 Routine general medical exam ination at a health care facility 03/16/2010 12/14/2014 Overview: 03/16/2010, from Dr. Padgett 02/26/2011, yearly check Routine gynecological examination 03/16/2010 12/14/2014 Overview: [facility] [place] Pruritus of genital organs 09/06/200803/16 Abdominal pain, generalized 10/16/200702/17 Other diseases of lung, not elsewhere classified 11/07/2005 02/28/2020 Hyperlipidemia 07/19/2005 02/28/2020 documented as of this encounter (statuses as of 05/14/2022) [facility] of Past illness Narrative* Problem Noted Date Resolved Date Cough 02/16/2019 02/28/2020 Acute bacterial sinusitis 02/16/20192019 Visit for screening mammogram 02/16/2019 Myalgia 08/05/2018 02/28/2020 Uncontrolled type 2 diabetes mellitus without complication, without long-term current use of insulin 08/05/2018 02/28/2020 Right upper quadrant pain 08/05/20182019 Chest pain 08/05/2018 02/28/2020 PONV (postoperative nausea and vomiting) 018 02/28/2020 Pelvic mass 02/25/2018 08/24/2019 Overview: Added automatically from request for surgery [id number] Need for pneumococcal vaccination 12/26/2017 02/28/2020 Atrophic vaginitis 12/26/2017 02/28/2020 Adjustment insomnia 12/26/2017 02/28/2020 Yeast vaginitis 12/26/2017 02/28/2020 CKD (chronic kidney disease) 02/14/2016 Right lower quadrant abdominal pain 08/03/2015 02/28/2020 Diverticulitis of large intestine 08/03/2015 02/28/2020 Bronchitis 09/15/2012 02/28/2020 Unspecified pruritic disorder 10/12/2010 Disorder of bone and cartilage, unspecified 09/1802/28/2020 Routine general medical exam ination at a health care facility 03/16/2010 12/14/2014 Overview: 03/16/2010, from Dr. Padgett 02/26/2011, yearly check Routine gynecological examination 03/16/2010 12/14/2014 Overview: [facility] [place] Pruritus of genital organs 09/06/200803/16 Abdominal pain, generalized 10/16/200702/17 Other diseases of lung, not elsewhere classified 11/07/2005 02/28/2020 Hyperlipidemia 07/19/2005 02/28/2020 documented as of this encounter (statuses as of 05/24/2022) [facility] History of Past illness Narrative* Problem Noted Date Resolved Date Cough 02/16/2019 02/28/2020 Acute bacterial sinusitis 02/16/20192019 Visit for screening mammogram 02/16/2019 Myalgia 08/05/2018 02/28/2020 Uncontrolled type 2 diabetes mellitus without complication, without long-term current use of insulin 08/05/2018 02/28/2020 Right upper quadrant pain 08/05/20182019 Chest pain 08/05/2018 02/28/2020 PONV (postoperative nausea and vomiting) 018 02/28/2020 Pelvic mass 02/25/2018 08/24/2019 Overview: Added automatically from request for surgery [id number] Need for pneumococcal vaccination 12/26/2017 02/28/2020 Atrophic vaginitis 12/26/2017 02/28/2020 Adjustment insomnia 12/26/2017 02/28/2020 Yeast vaginitis 12/26/2017 02/28/2020 CKD (chronic kidney disease) 02/14/2016 Right lower quadrant abdominal pain 08/03/2015 02/28/2020 Diverticulitis of large intestine 08/03/2015 02/28/2020 Bronchitis 09/15/2012 02/28/2020 Unspecified pruritic disorder 10/12/2010 Disorder of bone and cartilage, unspecified 09/1802/28/2020 Routine general medical exam ination at a health care facility 03/16/2010 12/14/2014 Overview: 03/16/2010, from Dr. Padgett 02/26/2011, yearly check Routine gynecological examination 03/16/2010 12/14/2014 Overview: [facility] [place] Pruritus of genital organs 09/06/200803/16 Abdominal pain, generalized 10/16/200702/17 Other diseases of lung, not elsewhere classified 11/07/2005 02/28/2020 Hyperlipidemia 07/19/2005 02/28/2020 documented as of this encounter (statuses as of 06/10/2022) [facility] of Past illness Narrative* Problem Noted Date Resolved Date Cough 02/16/2019 02/28/2020 Acute bacterial sinusitis 02/16/20192019 Visit for screening mammogram 02/16/2019 Myalgia 08/05/2018 02/28/2020 Uncontrolled type 2 diabetes mellitus without complication, without long-term current use of insulin 08/05/2018 02/28/2020 Right upper quadrant pain 08/05/20182019 Chest pain 08/05/2018 02/28/2020 PONV (postoperative nausea and vomiting) 018 02/28/2020 Pelvic mass 02/25/2018 08/24/2019 Overview: Added automatically from request for surgery [id number] Need for pneumococcal vaccination 12/26/2017 02/28/2020 Atrophic vaginitis 12/26/2017 02/28/2020 Adjustment insomnia 12/26/2017 02/28/2020 Yeast vaginitis 12/26/2017 02/28/2020 CKD (chronic kidney disease) 02/14/2016 Right lower quadrant abdominal pain 08/03/2015 02/28/2020 Diverticulitis of large intestine 08/03/2015 02/28/2020 Bronchitis 09/15/2012 02/28/2020 Unspecified pruritic disorder 10/12/2010 Disorder of bone and cartilage, unspecified 09/1802/28/2020 Routine general medical exam ination at a health care facility 03/16/2010 12/14/2014 Overview: 03/16/2010, from Dr. Padgett 02/26/2011, yearly check Routine gynecological examination 03/16/2010 12/14/2014 Overview: [facility] [place] Pruritus of genital organs 09/06/200803/16 Abdominal pain, generalized 10/16/200702/17 Other diseases of lung, not elsewhere classified 11/07/2005 02/28/2020 Hyperlipidemia 07/19/2005 02/28/2020 documented as of this encounter (statuses as of 06/20/2022) [facility] History of Past illness Narrative* Problem Noted Date Resolved Date Cough 02/16/2019 02/28/2020 Acute bacterial sinusitis 02/16/20192019 Visit for screening mammogram 02/16/2019 Myalgia 08/05/2018 02/28/2020 Uncontrolled type 2 diabetes mellitus without complication, without long-term current use of insulin 08/05/2018 02/28/2020 Right upper quadrant pain 08/05/20182019 Chest pain 08/05/2018 02/28/2020 PONV (postoperative nausea and vomiting) 018 02/28/2020 Pelvic mass 02/25/2018 08/24/2019 Overview: Added automatically from request for surgery [id number] Need for pneumococcal vaccination 12/26/2017 02/28/2020 Atrophic vaginitis 12/26/2017 02/28/2020 Adjustment insomnia 12/26/2017 02/28/2020 Yeast vaginitis 12/26/2017 02/28/2020 CKD (chronic kidney disease) 02/14/2016 Right lower quadrant abdominal pain 08/03/2015 02/28/2020 Diverticulitis of large intestine 08/03/2015 02/28/2020 Bronchitis 09/15/2012 02/28/2020 Unspecified pruritic disorder 10/12/2010 Disorder of bone and cartilage, unspecified 09/1802/28/2020 Routine general medical exam ination at a health care facility 03/16/2010 12/14/2014 Overview: 03/16/2010, from Dr. Padgett 02/26/2011, yearly check Routine gynecological examination 03/16/2010 12/14/2014 Overview: [facility] [place] Pruritus of genital organs 09/06/200803/16 Abdominal pain, generalized 10/16/200702/17 Other diseases of lung, not elsewhere classified 11/07/2005 02/28/2020 Hyperlipidemia 07/19/2005 02/28/2020 documented as of this encounter (statuses as of 06/25/2022) [facility] History of Past illness Narrative* Problem Noted Date Resolved Date Cough 02/16/2019 02/28/2020 Acute bacterial sinusitis 02/16/20192019 Visit for screening mammogram 02/16/2019 Myalgia 08/05/2018 02/28/2020 Uncontrolled type 2 diabetes mellitus without complication, without long-term current use of insulin 08/05/2018 02/28/2020 Right upper quadrant pain 08/05/20182019 Chest pain 08/05/2018 02/28/2020 PONV (postoperative nausea and vomiting) 018 02/28/2020 Pelvic mass 02/25/2018 08/24/2019 Overview: Added automatically from request for surgery [id number] Need for pneumococcal vaccination 12/26/2017 02/28/2020 Atrophic vaginitis 12/26/2017 02/28/2020 Adjustment insomnia 12/26/2017 02/28/2020 Yeast vaginitis 12/26/2017 02/28/2020 CKD (chronic kidney disease) 02/14/2016 Right lower quadrant abdominal pain 08/03/2015 02/28/2020 Diverticulitis of large intestine 08/03/2015 02/28/2020 Bronchitis 09/15/2012 02/28/2020 Unspecified pruritic disorder 10/12/2010 Disorder of bone and cartilage, unspecified 09/1802/28/2020 Routine general medical exam ination at a health care facility 03/16/2010 12/14/2014 Overview: 03/16/2010, from Dr. Padgett 02/26/2011, yearly check Routine gynecological examination 03/16/2010 12/14/2014 Overview: [facility] [place] Pruritus of genital organs 09/06/200803/16 Abdominal pain, generalized 10/16/200702/17 Other diseases of lung, not elsewhere classified 11/07/2005 02/28/2020 Hyperlipidemia 07/19/2005 02/28/2020 documented as of this encounter (statuses as of 07/11/2022) [facility]04-02-2019 History of Past illness Narrative* Problem Noted Date Resolved Date Cough 02/16/2019 02/28/2020 Acute bacterial sinusitis 02/16/20192019 Visit for screening mammogram 02/16/2019 Myalgia 08/05/2018 02/28/2020 Uncontrolled type 2 diabetes mellitus without complication, without long-term current use of insulin 08/05/2018 02/28/2020 Chest pain 08/05/2018 02/28/2020 PONV (postoperative nausea and vomiting) 018 02/28/2020 Pelvic mass 02/25/2018 08/24/2019 Overview: Added automatically from request for surgery [id number] Need for pneumococcal vaccination 12/26/2017 02/28/2020 Atrophic vaginitis 12/26/2017 02/28/2020 Adjustment insomnia 12/26/2017 02/28/2020 Yeast vaginitis 12/26/2017 02/28/2020 CKD (chronic kidney disease) 02/14/2016 Right lower quadrant abdominal pain 08/03/2015 02/28/2020 Diverticulitis of large intestine 08/03/2015 02/28/2020 Bronchitis 09/15/2012 02/28/2020 Unspecified pruritic disorder 10/12/2010 Disorder of bone and cartilage, unspecified 09/1802/28/2020 Routine general medical exam ination at a health care facility 03/16/2010 12/14/2014 Overview: 03/16/2010, from Dr. Padgett 02/26/2011, yearly check Routine gynecological examination 03/16/2010 12/14/2014 Overview: [facility] [place] Pruritus of genital organs 09/06/200803/16 Abdominal pain, generalized 10/16/200702/17 Other diseases of lung, not elsewhere classified 11/07/2005 02/28/2020 Hyperlipidemia 07/19/2005 02/28/2020 documented as of this encounter (statuses as of 07/29/2022) [facility]04-02-2019 History of Past illness Narrative* Problem Noted Date Resolved Date Cough 02/16/2019 02/28/2020 Acute bacterial sinusitis 02/16/20192019 Visit for screening mammogram 02/16/2019 Myalgia 08/05/2018 02/28/2020 Uncontrolled type 2 diabetes mellitus without complication, without long-term current use of insulin 08/05/2018 02/28/2020 Chest pain 08/05/2018 02/28/2020 PONV (postoperative nausea and vomiting) 018 02/28/2020 Pelvic mass 02/25/2018 08/24/2019 Overview: Added automatically from request for surgery [id number] Need for pneumococcal vaccination 12/26/2017 02/28/2020 Atrophic vaginitis 12/26/2017 02/28/2020 Adjustment insomnia 12/26/2017 02/28/2020 Yeast vaginitis 12/26/2017 02/28/2020 CKD (chronic kidney disease) 02/14/2016 Right lower quadrant abdominal pain 08/03/2015 02/28/2020 Diverticulitis of large intestine 08/03/2015 02/28/2020 Bronchitis 09/15/2012 02/28/2020 Unspecified pruritic disorder 10/12/2010 Disorder of bone and cartilage, unspecified 09/1802/28/2020 Routine general medical exam ination at a health care facility 03/16/2010 12/14/2014 Overview: 03/16/2010, from Dr. Padgett 02/26/2011, yearly check Routine gynecological examination 03/16/2010 12/14/2014 Overview: [facility] [place] Pruritus of genital organs 09/06/200803/16 Abdominal pain, generalized 10/16/200702/17 Other diseases of lung, not elsewhere classified 11/07/2005 02/28/2020 Hyperlipidemia 07/19/2005 02/28/2020 documented as of this encounter (statuses as of 07/29/2022) [facility]04-02-2019 History of Past illness Narrative* Problem Noted Date Resolved Date Cough 02/16/2019 02/28/2020 Acute bacterial sinusitis 02/16/20192019 Visit for screening mammogram 02/16/2019 Myalgia 08/05/2018 02/28/2020 Uncontrolled type 2 diabetes mellitus without complication, without long-term current use of insulin 08/05/2018 02/28/2020 Chest pain 08/05/2018 02/28/2020 PONV (postoperative nausea and vomiting) 018 02/28/2020 Pelvic mass 02/25/2018 08/24/2019 Overview: Added automatically from request for surgery [id number] Need for pneumococcal vaccination 12/26/2017 02/28/2020 Atrophic vaginitis 12/26/2017 02/28/2020 Adjustment insomnia 12/26/2017 02/28/2020 Yeast vaginitis 12/26/2017 02/28/2020 CKD (chronic kidney disease) 02/14/2016 Right lower quadrant abdominal pain 08/03/2015 02/28/2020 Diverticulitis of large intestine 08/03/2015 02/28/2020 Bronchitis 09/15/2012 02/28/2020 Unspecified pruritic disorder 10/12/2010 Disorder of bone and cartilage, unspecified 09/1802/28/2020 Routine general medical exam ination at a health care facility 03/16/2010 12/14/2014 Overview: 03/16/2010, from Dr. Padgett 02/26/2011, yearly check Routine gynecological examination 03/16/2010 12/14/2014 Overview: [facility] [place] Pruritus of genital organs 09/06/200803/16 Abdominal pain, generalized 10/16/200702/17 Other diseases of lung, not elsewhere classified 11/07/2005 02/28/2020 Hyperlipidemia 07/19/2005 02/28/2020 documented as of this encounter (statuses as of 08/02/2022) [facility]04-02-2019 History of Past illness Narrative* Problem Noted Date Resolved Date Cough 02/16/2019 02/28/2020 Acute bacterial sinusitis 02/16/20192019 Visit for screening mammogram 02/16/2019 Myalgia 08/05/2018 02/28/2020 Uncontrolled type 2 diabetes mellitus without complication, without long-term current use of insulin 08/05/2018 02/28/2020 Chest pain 08/05/2018 02/28/2020 PONV (postoperative nausea and vomiting) 018 02/28/2020 Pelvic mass 02/25/2018 08/24/2019 Overview: Added automatically from request for surgery [id number] Need for pneumococcal vaccination 12/26/2017 02/28/2020 Atrophic vaginitis 12/26/2017 02/28/2020 Adjustment insomnia 12/26/2017 02/28/2020 Yeast vaginitis 12/26/2017 02/28/2020 CKD (chronic kidney disease) 02/14/2016 Right lower quadrant abdominal pain 08/03/2015 02/28/2020 Diverticulitis of large intestine 08/03/2015 02/28/2020 Bronchitis 09/15/2012 02/28/2020 Unspecified pruritic disorder 10/12/2010 Disorder of bone and cartilage, unspecified 09/1802/28/2020 Routine general medical exam ination at a health care facility 03/16/2010 12/14/2014 Overview: 03/16/2010, from Dr. Padgett 02/26/2011, yearly check Routine gynecological examination 03/16/2010 12/14/2014 Overview: [facility] [place] Pruritus of genital organs 09/06/200803/16 Abdominal pain, generalized 10/16/200702/17 Other diseases of lung, not elsewhere classified 11/07/2005 02/28/2020 Hyperlipidemia 07/19/2005 02/28/2020 documented as of this encounter (statuses as of 08/08/2022) [facility]04-02-2019 History of Past illness Narrative* Problem Noted Date Resolved Date Cough 02/16/2019 02/28/2020 Acute bacterial sinusitis 02/16/20192019 Visit for screening mammogram 02/16/2019 Myalgia 08/05/2018 02/28/2020 Uncontrolled type 2 diabetes mellitus without complication, without long-term current use of insulin 08/05/2018 02/28/2020 Chest pain 08/05/2018 02/28/2020 PONV (postoperative nausea and vomiting) 018 02/28/2020 Pelvic mass 02/25/2018 08/24/2019 Overview: Added automatically from request for surgery [id number] Need for pneumococcal vaccination 12/26/2017 02/28/2020 Atrophic vaginitis 12/26/2017 02/28/2020 Adjustment insomnia 12/26/2017 02/28/2020 Yeast vaginitis 12/26/2017 02/28/2020 CKD (chronic kidney disease) 02/14/2016 Right lower quadrant abdominal pain 08/03/2015 02/28/2020 Diverticulitis of large intestine 08/03/2015 02/28/2020 Bronchitis 09/15/2012 02/28/2020 Unspecified pruritic disorder 10/12/2010 Disorder of bone and cartilage, unspecified 09/1802/28/2020 Routine general medical exam ination at a health care facility 03/16/2010 12/14/2014 Overview: 03/16/2010, from Dr. Padgett 02/26/2011, yearly check Routine gynecological examination 03/16/2010 12/14/2014 Overview: [facility], [facility] [place] Pruritus of genital organs 09/06/200803/16 Abdominal pain, generalized 10/16/200702/17 Other diseases of lung, not elsewhere classified 11/07/2005 02/28/2020 Hyperlipidemia 07/19/2005 02/28/2020 documented as of this encounter (statuses as of 08/14/2022) [facility]04-02-2019 History of Past illness Narrative* Problem Noted Date Resolved Date Cough 02/16/2019 02/28/2020 Acute bacterial sinusitis 02/16/20192019 Visit for screening mammogram 02/16/2019 Myalgia 08/05/2018 02/28/2020 Uncontrolled type 2 diabetes mellitus without complication, without long-term current use of insulin 08/05/2018 02/28/2020 Chest pain 08/05/2018 02/28/2020 PONV (postoperative nausea and vomiting) 018 02/28/2020 Pelvic mass 02/25/2018 08/24/2019 Overview: Added automatically from request for surgery [id number] Need for pneumococcal vaccination 12/26/2017 02/28/2020 Atrophic vaginitis 12/26/2017 02/28/2020 Adjustment insomnia 12/26/2017 02/28/2020 Yeast vaginitis 12/26/2017 02/28/2020 CKD (chronic kidney disease) 02/14/2016 Right lower quadrant abdominal pain 08/03/2015 02/28/2020 Diverticulitis of large intestine 08/03/2015 02/28/2020 Bronchitis 09/15/2012 02/28/2020 Unspecified pruritic disorder 10/12/2010 Disorder of bone and cartilage, unspecified 09/1802/28/2020 Routine general medical exam ination at a health care facility 03/16/2010 12/14/2014 Overview: 03/16/2010, from Dr. Padgett 02/26/2011, yearly check Routine gynecological examination 03/16/2010 12/14/2014 Overview: [facility] [place] Pruritus of genital organs 09/06/200803/16 Abdominal pain, generalized 10/16/200702/17 Other diseases of lung, not elsewhere classified 11/07/2005 02/28/2020 Hyperlipidemia 07/19/2005 02/28/2020 documented as of this encounter (statuses as of 08/15/2022) [facility]04-02-2019 History of Past illness Narrative* Problem Noted Date Resolved Date Cough 02/16/2019 02/28/2020 Acute bacterial sinusitis 02/16/20192019 Visit for screening mammogram 02/16/2019 Myalgia 08/05/2018 02/28/2020 Uncontrolled type 2 diabetes mellitus without complication, without long-term current use of insulin 08/05/2018 02/28/2020 Chest pain 08/05/2018 02/28/2020 PONV (postoperative nausea and vomiting) 018 02/28/2020 Pelvic mass 02/25/2018 08/24/2019 Overview: Added automatically from request for surgery [id number] Need for pneumococcal vaccination 12/26/2017 02/28/2020 Atrophic vaginitis 12/26/2017 02/28/2020 Adjustment insomnia 12/26/2017 02/28/2020 Yeast vaginitis 12/26/2017 02/28/2020 CKD (chronic kidney disease) 02/14/2016 Right lower quadrant abdominal pain 08/03/2015 02/28/2020 Diverticulitis of large intestine 08/03/2015 02/28/2020 Bronchitis 09/15/2012 02/28/2020 Unspecified pruritic disorder 10/12/2010 Disorder of bone and cartilage, unspecified 09/1802/28/2020 Routine general medical exam ination at a health care facility 03/16/2010 12/14/2014 Overview: 03/16/2010, from Dr. Padgett 02/26/2011, yearly check Routine gynecological examination 03/16/2010 12/14/2014 Overview: [facility] [place] Pruritus of genital organs 09/06/200803/16 Abdominal pain, generalized 10/16/200702/17 Other diseases of lung, not elsewhere classified 11/07/2005 02/28/2020 Hyperlipidemia 07/19/2005 02/28/2020 documented as of this encounter (statuses as of 08/22/2022) [facility]04-02-2019 History of Past illness Narrative* Problem Noted Date Resolved Date Cough 02/16/2019 02/28/2020 Acute bacterial sinusitis 02/16/20192019 Visit for screening mammogram 02/16/2019 Myalgia 08/05/2018 02/28/2020 Uncontrolled type 2 diabetes mellitus without complication, without long-term current use of insulin 08/05/2018 02/28/2020 Chest pain 08/05/2018 02/28/2020 PONV (postoperative nausea and vomiting) 018 02/28/2020 Pelvic mass 02/25/2018 08/24/2019 Overview: Added automatically from request for surgery [id number] Need for pneumococcal vaccination 12/26/2017 02/28/2020 Atrophic vaginitis 12/26/2017 02/28/2020 Adjustment insomnia 12/26/2017 02/28/2020 Yeast vaginitis 12/26/2017 02/28/2020 CKD (chronic kidney disease) 02/14/2016 Right lower quadrant abdominal pain 08/03/2015 02/28/2020 Diverticulitis of large intestine 08/03/2015 02/28/2020 Bronchitis 09/15/2012 02/28/2020 Unspecified pruritic disorder 10/12/2010 Disorder of bone and cartilage, unspecified 09/1802/28/2020 Routine general medical exam ination at a health care facility 03/16/2010 12/14/2014 Overview: 03/16/2010, from Dr. Padgett 02/26/2011, yearly check Routine gynecological examination 03/16/2010 12/14/2014 Overview: [facility] [place] Pruritus of genital organs 09/06/200803/16 Abdominal pain, generalized 10/16/200702/17 Other diseases of lung, not elsewhere classified 11/07/2005 02/28/2020 Hyperlipidemia 07/19/2005 02/28/2020 documented as of this encounter (statuses as of 08/28/2022) [facility]04-02-2019 History of Past illness Narrative* Problem Noted Date Resolved Date Cough 02/16/2019 02/28/2020 Acute bacterial sinusitis 02/16/20192019 Visit for screening mammogram 02/16/2019 Myalgia 08/05/2018 02/28/2020 Uncontrolled type 2 diabetes mellitus without complication, without long-term current use of insulin 08/05/2018 02/28/2020 Chest pain 08/05/2018 02/28/2020 PONV (postoperative nausea and vomiting) 018 02/28/2020 Pelvic mass 02/25/2018 08/24/2019 Overview: Added automatically from request for surgery [id number] Need for pneumococcal vaccination 12/26/2017 02/28/2020 Atrophic vaginitis 12/26/2017 02/28/2020 Adjustment insomnia 12/26/2017 02/28/2020 Yeast vaginitis 12/26/2017 02/28/2020 CKD (chronic kidney disease) 02/14/2016 Right lower quadrant abdominal pain 08/03/2015 02/28/2020 Diverticulitis of large intestine 08/03/2015 02/28/2020 Bronchitis 09/15/2012 02/28/2020 Unspecified pruritic disorder 10/12/2010 Disorder of bone and cartilage, unspecified 09/1802/28/2020 Routine general medical exam ination at a health care facility 03/16/2010 12/14/2014 Overview: 03/16/2010, from Dr. Padgett 02/26/2011, yearly check Routine gynecological examination 03/16/2010 12/14/2014 Overview: [facility] [place] Pruritus of genital organs 09/06/200803/16 Abdominal pain, generalized 10/16/200702/17 Other diseases of lung, not elsewhere classified 11/07/2005 02/28/2020 Hyperlipidemia 07/19/2005 02/28/2020 documented as of this encounter (statuses as of 09/04/2022) [facility]04-02-2019 History of Past illness Narrative* Problem Noted Date Resolved Date Cough 02/16/2019 02/28/2020 Acute bacterial sinusitis 02/16/20192019 Visit for screening mammogram 02/16/2019 Myalgia 08/05/2018 02/28/2020 Uncontrolled type 2 diabetes mellitus without complication, without long-term current use of insulin 08/05/2018 02/28/2020 Chest pain 08/05/2018 02/28/2020 PONV (postoperative nausea and vomiting) 018 02/28/2020 Pelvic mass 02/25/2018 08/24/2019 Overview: Added automatically from request for surgery [id number] Need for pneumococcal vaccination 12/26/2017 02/28/2020 Atrophic vaginitis 12/26/2017 02/28/2020 Adjustment insomnia 12/26/2017 02/28/2020 Yeast vaginitis 12/26/2017 02/28/2020 CKD (chronic kidney disease) 02/14/2016 Right lower quadrant abdominal pain 08/03/2015 02/28/2020 Diverticulitis of large intestine 08/03/2015 02/28/2020 Bronchitis 09/15/2012 02/28/2020 Unspecified pruritic disorder 10/12/2010 Disorder of bone and cartilage, unspecified 09/1802/28/2020 Routine general medical exam ination at a health care facility 03/16/2010 12/14/2014 Overview: 03/16/2010, from Dr. Padgett 02/26/2011, yearly check Routine gynecological examination 03/16/2010 12/14/2014 Overview: [facility] [place] Pruritus of genital organs 09/06/200803/16 Abdominal pain, generalized 10/16/200702/17 Other diseases of lung, not elsewhere classified 11/07/2005 02/28/2020 Hyperlipidemia 07/19/2005 02/28/2020 documented as of this encounter (statuses as of 09/23/2022) [facility]04-02[facility]2019 History of Past illness Narrative* Problem Noted Date Resolved Date Cough 02/16/2019 02/28/2020 Acute bacterial sinusitis 02/16/20192019 Visit for screening mammogram 02/16/2019 Myalgia 08/05/2018 02/28/2020 Uncontrolled type 2 diabetes mellitus without complication, without long-term current use of insulin 08/05/2018 02/28/2020 Chest pain 08/05/2018 02/28/2020 PONV (postoperative nausea and vomiting) 018 02/28/2020 Pelvic mass 02/25/2018 08/24/2019 Overview: Added automatically from request for surgery [id number] Need for pneumococcal vaccination 12/26/2017 02/28/2020 Atrophic vaginitis 12/26/2017 02/28/2020 Adjustment insomnia 12/26/2017 02/28/2020 Yeast vaginitis 12/26/2017 02/28/2020 CKD (chronic kidney disease) 02/14/2016 Right lower quadrant abdominal pain 08/03/2015 02/28/2020 Diverticulitis of large intestine 08/03/2015 02/28/2020 Bronchitis 09/15/2012 02/28/2020 Unspecified pruritic disorder 10/12/2010 Disorder of bone and cartilage, unspecified 09/1802/28/2020 Routine general medical exam ination at a health care facility 03/16/2010 12/14/2014 Overview: 03/16/2010, from Dr. Padgett 02/26/2011, yearly check Routine gynecological examination 03/16/2010 12/14/2014 Overview: [facility] [place] Pruritus of genital organs 09/06/200803/16 Abdominal pain, generalized 10/16/200702/17 Other diseases of lung, not elsewhere classified 11/07/2005 02/28/2020 Hyperlipidemia 07/19/2005 02/28/2020 documented as of this encounter (statuses as of 10/14/2022) [facility]2019 History of Past illness Narrative* Problem Noted Date Resolved Date Cough 02/16/2019 02/28/2020 Acute bacterial sinusitis 02/16/20192019 Visit for screening mammogram 02/16/2019 Myalgia 08/05/2018 02/28/2020 Uncontrolled type 2 diabetes mellitus without complication, without long-term current use of insulin 08/05/2018 02/28/2020 Chest pain 08/05/2018 02/28/2020 PONV (postoperative nausea and vomiting) 018 02/28/2020 Pelvic mass 02/25/2018 08/24/2019 Overview: Added automatically from request for surgery [id number] Need for pneumococcal vaccination 12/26/2017 02/28/2020 Atrophic vaginitis 12/26/2017 02/28/2020 Adjustment insomnia 12/26/2017 02/28/2020 Yeast vaginitis 12/26/2017 02/28/2020 CKD (chronic kidney disease) 02/14/2016 Right lower quadrant abdominal pain 08/03/2015 02/28/2020 Diverticulitis of large intestine 08/03/2015 02/28/2020 Bronchitis 09/15/2012 02/28/2020 Unspecified pruritic disorder 10/12/2010 Disorder of bone and cartilage, unspecified 09/1802/28/2020 Routine general medical exam ination at a health care facility 03/16/2010 12/14/2014 Overview: 03/16/2010, from Dr. Padgett 02/26/2011, yearly check Routine gynecological examination 03/16/2010 12/14/2014 Overview: [facility] [place] Pruritus of genital organs 09/06/200803/16 Abdominal pain, generalized 10/16/200702/17 Other diseases of lung, not elsewhere classified 11/07/2005 02/28/2020 Hyperlipidemia 07/19/2005 02/28/2020 documented as of this encounter (statuses as of 10/17/2022) [facility]2019 History of Past illness Narrative* Problem Noted Date Resolved Date Cough 02/16/2019 02/28/2020 Acute bacterial sinusitis 02/16/20192019 Visit for screening mammogram 02/16/2019 Myalgia 08/05/2018 02/28/2020 Uncontrolled type 2 diabetes mellitus without complication, without long-term current use of insulin 08/05/2018 02/28/2020 Chest pain 08/05/2018 02/28/2020 PONV (postoperative nausea and vomiting) 018 02/28/2020 Pelvic mass 02/25/2018 08/24/2019 Overview: Added automatically from request for surgery [id number] Need for pneumococcal vaccination 12/26/2017 02/28/2020 Atrophic vaginitis 12/26/2017 02/28/2020 Adjustment insomnia 12/26/2017 02/28/2020 Yeast vaginitis 12/26/2017 02/28/2020 CKD (chronic kidney disease) 02/14/2016 Right lower quadrant abdominal pain 08/03/2015 02/28/2020 Diverticulitis of large intestine 08/03/2015 02/28/2020 Bronchitis 09/15/2012 02/28/2020 Unspecified pruritic disorder 10/12/2010 Disorder of bone and cartilage, unspecified 09/1802/28/2020 Routine general medical exam ination at a health care facility 03/16/2010 12/14/2014 Overview: 03/16/2010, from Dr. Padgett 02/26/2011, yearly check Routine gynecological examination 03/16/2010 12/14/2014 Overview: [facility], [facility] [place] Pruritus of genital organs 09/06/200803/16 Abdominal pain, generalized 10/16/200702/17 Other diseases of lung, not elsewhere classified 11/07/2005 02/28/2020 Hyperlipidemia 07/19/2005 02/28/2020 documented as of this encounter (statuses as of 10/24/2022) [facility]2019 History of Past illness Narrative* Problem Noted Date Resolved Date Cough 02/16/2019 02/28/2020 Acute bacterial sinusitis 02/16/20192019 Visit for screening mammogram 02/16/2019 Myalgia 08/05/2018 02/28/2020 Uncontrolled type 2 diabetes mellitus without complication, without long-term current use of insulin 08/05/2018 02/28/2020 Chest pain 08/05/2018 02/28/2020 PONV (postoperative nausea and vomiting) 018 02/28/2020 Pelvic mass 02/25/2018 08/24/2019 Overview: Added automatically from request for surgery [id number] Need for pneumococcal vaccination 12/26/2017 02/28/2020 Atrophic vaginitis 12/26/2017 02/28/2020 Adjustment insomnia 12/26/2017 02/28/2020 Yeast vaginitis 12/26/2017 02/28/2020 CKD (chronic kidney disease) 02/14/2016 Right lower quadrant abdominal pain 08/03/2015 02/28/2020 Diverticulitis of large intestine 08/03/2015 02/28/2020 Bronchitis 09/15/2012 02/28/2020 Unspecified pruritic disorder 10/12/2010 Disorder of bone and cartilage, unspecified 09/1802/28/2020 Routine general medical exam ination at a health care facility 03/16/2010 12/14/2014 Overview: 03/16/2010, from Dr. Padgett 02/26/2011, yearly check Routine gynecological examination 03/16/2010 12/14/2014 Overview: [facility], [facility] [place] Pruritus of genital organs 09/06/200803/16 Abdominal pain, generalized 10/16/200702/17 Other diseases of lung, not elsewhere classified 11/07/2005 02/28/2020 Hyperlipidemia 07/19/2005 02/28/2020 documented as of this encounter (statuses as of 10/28/2022) [facility]2019 History of Past illness Narrative* Problem Noted Date Resolved Date Cough 02/16/2019 02/28/2020 Acute bacterial sinusitis 02/16/20192019 Visit for screening mammogram 02/16/2019 Myalgia 08/05/2018 02/28/2020 Uncontrolled type 2 diabetes mellitus without complication, without long-term current use of insulin 08/05/2018 02/28/2020 Chest pain 08/05/2018 02/28/2020 PONV (postoperative nausea and vomiting) 018 02/28/2020 Pelvic mass 02/25/2018 08/24/2019 Overview: Added automatically from request for surgery [id number] Need for pneumococcal vaccination 12/26/2017 02/28/2020 Atrophic vaginitis 12/26/2017 02/28/2020 Adjustment insomnia 12/26/2017 02/28/2020 Yeast vaginitis 12/26/2017 02/28/2020 CKD (chronic kidney disease) 02/14/2016 Right lower quadrant abdominal pain 08/03/2015 02/28/2020 Diverticulitis of large intestine 08/03/2015 02/28/2020 Bronchitis 09/15/2012 02/28/2020 Unspecified pruritic disorder 10/12/2010 Disorder of bone and cartilage, unspecified 09/1802/28/2020 Routine general medical exam ination at a health care facility 03/16/2010 12/14/2014 Overview: 03/16/2010, from Dr. Padgett 02/26/2011, yearly check Routine gynecological examination 03/16/2010 12/14/2014 Overview: [facility], [facility] [place] Pruritus of genital organs 09/06/200803/16 Abdominal pain, generalized 10/16/200702/17 Other diseases of lung, not elsewhere classified 11/07/2005 02/28/2020 Hyperlipidemia 07/19/2005 02/28/2020 documented as of this encounter (statuses as of 10/31/2022) [facility]04-02[facility]2019 History of Past illness Narrative* Problem Noted Date Resolved Date Cough 02/16/2019 02/28/2020 Acute bacterial sinusitis 02/16/20192019 Visit for screening mammogram 02/16/2019 Myalgia 08/05/2018 02/28/2020 Uncontrolled type 2 diabetes mellitus without complication, without long-term current use of insulin 08/05/2018 02/28/2020 Chest pain 08/05/2018 02/28/2020 PONV (postoperative nausea and vomiting) 018 02/28/2020 Pelvic mass 02/25/2018 08/24/2019 Overview: Added automatically from request for surgery [id number] Need for pneumococcal vaccination 12/26/2017 02/28/2020 Atrophic vaginitis 12/26/2017 02/28/2020 Adjustment insomnia 12/26/2017 02/28/2020 Yeast vaginitis 12/26/2017 02/28/2020 CKD (chronic kidney disease) 02/14/2016 Right lower quadrant abdominal pain 08/03/2015 02/28/2020 Diverticulitis of large intestine 08/03/2015 02/28/2020 Bronchitis 09/15/2012 02/28/2020 Unspecified pruritic disorder 10/12/2010 Disorder of bone and cartilage, unspecified 09/1802/28/2020 Routine general medical exam ination at a health care facility 03/16/2010 12/14/2014 Overview: 03/16/2010, from Dr. Padgett 02/26/2011, yearly check Routine gynecological examination 03/16/2010 12/14/2014 Overview: [facility] [place] Pruritus of genital organs 09/06/200803/16 Abdominal pain, generalized 10/16/200702/17 Other diseases of lung, not elsewhere classified 11/07/2005 02/28/2020 Hyperlipidemia 07/19/2005 02/28/2020 documented as of this encounter (statuses as of 10/31/2022) [facility]04-02-2019 History of Past illness Narrative* Problem Noted Date Resolved Date Cough 02/16/2019 02/28/2020 Acute bacterial sinusitis 02/16/20192019 Visit for screening mammogram 02/16/2019 Myalgia 08/05/2018 02/28/2020 Uncontrolled type 2 diabetes mellitus without complication, without long-term current use of insulin 08/05/2018 02/28/2020 Chest pain 08/05/2018 02/28/2020 PONV (postoperative nausea and vomiting) 018 02/28/2020 Pelvic mass 02/25/2018 08/24/2019 Overview: Added automatically from request for surgery [id number] Need for pneumococcal vaccination 12/26/2017 02/28/2020 Atrophic vaginitis 12/26/2017 02/28/2020 Adjustment insomnia 12/26/2017 02/28/2020 Yeast vaginitis 12/26/2017 02/28/2020 CKD (chronic kidney disease) 02/14/2016 Right lower quadrant abdominal pain 08/03/2015 02/28/2020 Diverticulitis of large intestine 08/03/2015 02/28/2020 Bronchitis 09/15/2012 02/28/2020 Unspecified pruritic disorder 10/12/2010 Disorder of bone and cartilage, unspecified 09/1802/28/2020 Routine general medical exam ination at a health care facility 03/16/2010 12/14/2014 Overview: 03/16/2010, from Dr. Padgett 02/26/2011, yearly check Routine gynecological examination 03/16/2010 12/14/2014 Overview: [facility] [place] Pruritus of genital organs 09/06/200803/16 Abdominal pain, generalized 10/16/200702/17 Other diseases of lung, not elsewhere classified 11/07/2005 02/28/2020 Hyperlipidemia 07/19/2005 02/28/2020 documented as of this encounter (statuses as of 11/22/2022) [facility]04-02-2019 History of Past illness Narrative* Problem Noted Date Resolved Date Cough 02/16/2019 02/28/2020 Acute bacterial sinusitis 02/16/20192019 Visit for screening mammogram 02/16/2019 Myalgia 08/05/2018 02/28/2020 Uncontrolled type 2 diabetes mellitus without complication, without long-term current use of insulin 08/05/2018 02/28/2020 Chest pain 08/05/2018 02/28/2020 PONV (postoperative nausea and vomiting) 018 02/28/2020 Pelvic mass 02/25/2018 08/24/2019 Overview: Added automatically from request for surgery [id number] Need for pneumococcal vaccination 12/26/2017 02/28/2020 Atrophic vaginitis 12/26/2017 02/28/2020 Adjustment insomnia 12/26/2017 02/28/2020 Yeast vaginitis 12/26/2017 02/28/2020 CKD (chronic kidney disease) 02/14/2016 Right lower quadrant abdominal pain 08/03/2015 02/28/2020 Diverticulitis of large intestine 08/03/2015 02/28/2020 Bronchitis 09/15/2012 02/28/2020 Unspecified pruritic disorder 10/12/2010 Disorder of bone and cartilage, unspecified 09/1802/28/2020 Routine general medical exam ination at a health care facility 03/16/2010 12/14/2014 Overview: 03/16/2010, from Dr. Padgett 02/26/2011, yearly check Routine gynecological examination 03/16/2010 12/14/2014 Overview: [facility] [place] Pruritus of genital organs 09/06/200803/16 Abdominal pain, generalized 10/16/200702/17 Other diseases of lung, not elsewhere classified 11/07/2005 02/28/2020 Hyperlipidemia 07/19/2005 02/28/2020 documented as of this encounter (statuses as of 11/28/2022) [facility]04-02-2019 History of Past illness Narrative* Problem Noted Date Resolved Date Cough 02/16/2019 02/28/2020 Acute bacterial sinusitis 02/16/20192019 Visit for screening mammogram 02/16/2019 Myalgia 08/05/2018 02/28/2020 Uncontrolled type 2 diabetes mellitus without complication, without long-term current use of insulin 08/05/2018 02/28/2020 Chest pain 08/05/2018 02/28/2020 PONV (postoperative nausea and vomiting) 018 02/28/2020 Pelvic mass 02/25/2018 08/24/2019 Overview: Added automatically from request for surgery [id number] Need for pneumococcal vaccination 12/26/2017 02/28/2020 Atrophic vaginitis 12/26/2017 02/28/2020 Adjustment insomnia 12/26/2017 02/28/2020 Yeast vaginitis 12/26/2017 02/28/2020 CKD (chronic kidney disease) 02/14/2016 Right lower quadrant abdominal pain 08/03/2015 02/28/2020 Diverticulitis of large intestine 08/03/2015 02/28/2020 Bronchitis 09/15/2012 02/28/2020 Unspecified pruritic disorder 10/12/2010 Disorder of bone and cartilage, unspecified 09/1802/28/2020 Routine general medical exam ination at a health care facility 03/16/2010 12/14/2014 Overview: 03/16/2010, from Dr. Padgett 02/26/2011, yearly check Routine gynecological examination 03/16/2010 12/14/2014 Overview: [facility] [place] Pruritus of genital organs 09/06/200803/16 Abdominal pain, generalized 10/16/200702/17 Other diseases of lung, not elsewhere classified 11/07/2005 02/28/2020 Hyperlipidemia 07/19/2005 02/28/2020 documented as of this encounter (statuses as of 12/04/2022) [facility]04-02-2019 History of Past illness Narrative* Problem Noted Date Resolved Date Cough 02/16/2019 02/28/2020 Acute bacterial sinusitis 02/16/20192019 Visit for screening mammogram 02/16/2019 Myalgia 08/05/2018 02/28/2020 Uncontrolled type 2 diabetes mellitus without complication, without long-term current use of insulin 08/05/2018 02/28/2020 Chest pain 08/05/2018 02/28/2020 PONV (postoperative nausea and vomiting) 018 02/28/2020 Pelvic mass 02/25/2018 08/24/2019 Overview: Added automatically from request for surgery [id number] Need for pneumococcal vaccination 12/26/2017 02/28/2020 Atrophic vaginitis 12/26/2017 02/28/2020 Adjustment insomnia 12/26/2017 02/28/2020 Yeast vaginitis 12/26/2017 02/28/2020 CKD (chronic kidney disease) 02/14/2016 Right lower quadrant abdominal pain 08/03/2015 02/28/2020 Diverticulitis of large intestine 08/03/2015 02/28/2020 Bronchitis 09/15/2012 02/28/2020 Unspecified pruritic disorder 10/12/2010 Disorder of bone and cartilage, unspecified 09/1802/28/2020 Routine general medical exam ination at a health care facility 03/16/2010 12/14/2014 Overview: 03/16/2010, from Dr. Padgett 02/26/2011, yearly check Routine gynecological examination 03/16/2010 12/14/2014 Overview: [facility] [place] Pruritus of genital organs 09/06/200803/16 Abdominal pain, generalized 10/16/200702/17 Other diseases of lung, not elsewhere classified 11/07/2005 02/28/2020 Hyperlipidemia 07/19/2005 02/28/2020 documented as of this encounter (statuses as of 12/06/2022) [facility]04-02-2019 History of Past illness Narrative* Problem Noted Date Resolved Date Cough 02/16/2019 02/28/2020 Acute bacterial sinusitis 02/16/20192019 Visit for screening mammogram 02/16/2019 Myalgia 08/05/2018 02/28/2020 Uncontrolled type 2 diabetes mellitus without complication, without long-term current use of insulin 08/05/2018 02/28/2020 Chest pain 08/05/2018 02/28/2020 PONV (postoperative nausea and vomiting) 018 02/28/2020 Pelvic mass 02/25/2018 08/24/2019 Overview: Added automatically from request for surgery [id number] Need for pneumococcal vaccination 12/26/2017 02/28/2020 Atrophic vaginitis 12/26/2017 02/28/2020 Adjustment insomnia 12/26/2017 02/28/2020 Yeast vaginitis 12/26/2017 02/28/2020 CKD (chronic kidney disease) 02/14/2016 Right lower quadrant abdominal pain 08/03/2015 02/28/2020 Diverticulitis of large intestine 08/03/2015 02/28/2020 Bronchitis 09/15/2012 02/28/2020 Unspecified pruritic disorder 10/12/2010 Disorder of bone and cartilage, unspecified 09/1802/28/2020 Routine general medical exam ination at a health care facility 03/16/2010 12/14/2014 Overview: 03/16/2010, from Dr. Padgett 02/26/2011, yearly check Routine gynecological examination 03/16/2010 12/14/2014 Overview: [facility] [place] Pruritus of genital organs 09/06/200803/16 Abdominal pain, generalized 10/16/200702/17 Other diseases of lung, not elsewhere classified 11/07/2005 02/28/2020 Hyperlipidemia 07/19/2005 02/28/2020 documented as of this encounter (statuses as of 12/06/2022) [facility]04-02-2019 History of Past illness Narrative* Problem Noted Date Resolved Date Cough 02/16/2019 02/28/2020 Acute bacterial sinusitis 02/16/20192019 Visit for screening mammogram 02/16/2019 Myalgia 08/05/2018 02/28/2020 Uncontrolled type 2 diabetes mellitus without complication, without long-term current use of insulin 08/05/2018 02/28/2020 Chest pain 08/05/2018 02/28/2020 PONV (postoperative nausea and vomiting) 018 02/28/2020 Pelvic mass 02/25/2018 08/24/2019 Overview: Added automatically from request for surgery [id number] Need for pneumococcal vaccination 12/26/2017 02/28/2020 Atrophic vaginitis 12/26/2017 02/28/2020 Adjustment insomnia 12/26/2017 02/28/2020 Yeast vaginitis 12/26/2017 02/28/2020 CKD (chronic kidney disease) 02/14/2016 Right lower quadrant abdominal pain 08/03/2015 02/28/2020 Diverticulitis of large intestine 08/03/2015 02/28/2020 Bronchitis 09/15/2012 02/28/2020 Unspecified pruritic disorder 10/12/2010 Disorder of bone and cartilage, unspecified 09/1802/28/2020 Routine general medical exam ination at a health care facility 03/16/2010 12/14/2014 Overview: 03/16/2010, from Dr. Padgett 02/26/2011, yearly check Routine gynecological examination 03/16/2010 12/14/2014 Overview: [facility] [place] Pruritus of genital organs 09/06/200803/16 Abdominal pain, generalized 10/16/200702/17 Other diseases of lung, not elsewhere classified 11/07/2005 02/28/2020 Hyperlipidemia 07/19/2005 02/28/2020 documented as of this encounter (statuses as of 01/14/2023) [facility]04-02[facility]2019 History of Past illness Narrative* Problem Noted Date Resolved Date Cough 02/16/2019 02/28/2020 Acute bacterial sinusitis 02/16/20192019 Visit for screening mammogram 02/16/2019 Myalgia 08/05/2018 02/28/2020 Uncontrolled type 2 diabetes mellitus without complication, without long-term current use of insulin 08/05/2018 02/28/2020 Chest pain 08/05/2018 02/28/2020 PONV (postoperative nausea and vomiting) 018 02/28/2020 Pelvic mass 02/25/2018 08/24/2019 Overview: Added automatically from request for surgery [id number] Need for pneumococcal vaccination 12/26/2017 02/28/2020 Atrophic vaginitis 12/26/2017 02/28/2020 Adjustment insomnia 12/26/2017 02/28/2020 Yeast vaginitis 12/26/2017 02/28/2020 CKD (chronic kidney disease) 02/14/2016 Right lower quadrant abdominal pain 08/03/2015 02/28/2020 Diverticulitis of large intestine 08/03/2015 02/28/2020 Bronchitis 09/15/2012 02/28/2020 Unspecified pruritic disorder 10/12/2010 Disorder of bone and cartilage, unspecified 09/1802/28/2020 Routine general medical exam ination at a health care facility 03/16/2010 12/14/2014 Overview: 03/16/2010, from Dr. Padgett 02/26/2011, yearly check Routine gynecological examination 03/16/2010 12/14/2014 Overview: [facility] [place] Pruritus of genital organs 09/06/200803/16 Abdominal pain, generalized 10/16/200702/17 Other diseases of lung, not elsewhere classified 11/07/2005 02/28/2020 Hyperlipidemia 07/19/2005 02/28/2020 documented as of this encounter (statuses as of 01/16/2023) [facility]04-02-2019 History of Past illness Narrative* Problem Noted Date Resolved Date Cough 02/16/2019 02/28/2020 Acute bacterial sinusitis 02/16/20192019 Visit for screening mammogram 02/16/2019 Myalgia 08/05/2018 02/28/2020 Uncontrolled type 2 diabetes mellitus without complication, without long-term current use of insulin 08/05/2018 02/28/2020 Chest pain 08/05/2018 02/28/2020 PONV (postoperative nausea and vomiting) 018 02/28/2020 Pelvic mass 02/25/2018 08/24/2019 Overview: Added automatically from request for surgery [id number] Need for pneumococcal vaccination 12/26/2017 02/28/2020 Atrophic vaginitis 12/26/2017 02/28/2020 Adjustment insomnia 12/26/2017 02/28/2020 Yeast vaginitis 12/26/2017 02/28/2020 CKD (chronic kidney disease) 02/14/2016 Right lower quadrant abdominal pain 08/03/2015 02/28/2020 Diverticulitis of large intestine 08/03/2015 02/28/2020 Bronchitis 09/15/2012 02/28/2020 Unspecified pruritic disorder 10/12/2010 Disorder of bone and cartilage, unspecified 09/1802/28/2020 Routine general medical exam ination at a health care facility 03/16/2010 12/14/2014 Overview: 03/16/2010, from Dr. Padgett 02/26/2011, yearly check Routine gynecological examination 03/16/2010 12/14/2014 Overview: [facility], [facility] [place] Pruritus of genital organs 09/06/200803/16 Abdominal pain, generalized 10/16/200702/17 Other diseases of lung, not elsewhere classified 11/07/2005 02/28/2020 Hyperlipidemia 07/19/2005 02/28/2020 documented as of this encounter (statuses as of 01/29/2023) [facility]04-02[facility]2019 History of Past illness Narrative* Problem Noted Date Resolved Date Cough 02/16/2019 02/28/2020 Acute bacterial sinusitis 02/16/20192019 Visit for screening mammogram 02/16/2019 Myalgia 08/05/2018 02/28/2020 Uncontrolled type 2 diabetes mellitus without complication, without long-term current use of insulin 08/05/2018 02/28/2020 Chest pain 08/05/2018 02/28/2020 PONV (postoperative nausea and vomiting) 018 02/28/2020 Pelvic mass 02/25/2018 08/24/2019 Overview: Added automatically from request for surgery [id number] Need for pneumococcal vaccination 12/26/2017 02/28/2020 Atrophic vaginitis 12/26/2017 02/28/2020 Adjustment insomnia 12/26/2017 02/28/2020 Yeast vaginitis 12/26/2017 02/28/2020 CKD (chronic kidney disease) 02/14/2016 Right lower quadrant abdominal pain 08/03/2015 02/28/2020 Diverticulitis of large intestine 08/03/2015 02/28/2020 Bronchitis 09/15/2012 02/28/2020 Unspecified pruritic disorder 10/12/2010 Disorder of bone and cartilage, unspecified 09/1802/28/2020 Routine general medical exam ination at a health care facility 03/16/2010 12/14/2014 Overview: 03/16/2010, from Dr. Padgett 02/26/2011, yearly check Routine gynecological examination 03/16/2010 12/14/2014 Overview: [facility] [place] Pruritus of genital organs 09/06/200803/16 Abdominal pain, generalized 10/16/200702/17 Other diseases of lung, not elsewhere classified 11/07/2005 02/28/2020 Hyperlipidemia 07/19/2005 02/28/2020 documented as of this encounter (statuses as of 01/30/2023) [facility]04-02-2019 History of Past illness Narrative* Problem Noted Date Resolved Date Cough 02/16/2019 02/28/2020 Acute bacterial sinusitis 02/16/20192019 Visit for screening mammogram 02/16/2019 Myalgia 08/05/2018 02/28/2020 Uncontrolled type 2 diabetes mellitus without complication, without long-term current use of insulin 08/05/2018 02/28/2020 Chest pain 08/05/2018 02/28/2020 PONV (postoperative nausea and vomiting) 018 02/28/2020 Pelvic mass 02/25/2018 08/24/2019 Overview: Added automatically from request for surgery [id number] Need for pneumococcal vaccination 12/26/2017 02/28/2020 Atrophic vaginitis 12/26/2017 02/28/2020 Adjustment insomnia 12/26/2017 02/28/2020 Yeast vaginitis 12/26/2017 02/28/2020 CKD (chronic kidney disease) 02/14/2016 Right lower quadrant abdominal pain 08/03/2015 02/28/2020 Diverticulitis of large intestine 08/03/2015 02/28/2020 Bronchitis 09/15/2012 02/28/2020 Unspecified pruritic disorder 10/12/2010 Disorder of bone and cartilage, unspecified 09/1802/28/2020 Routine general medical exam ination at a health care facility 03/16/2010 12/14/2014 Overview: 03/16/2010, from Dr. Padgett 02/26/2011, yearly check Routine gynecological examination 03/16/2010 12/14/2014 Overview: [facility] [place] Pruritus of genital organs 09/06/200803/16 Abdominal pain, generalized 10/16/200702/17 Other diseases of lung, not elsewhere classified 11/07/2005 02/28/2020 Hyperlipidemia 07/19/2005 02/28/2020 documented as of this encounter (statuses as of 02/13/2023) [facility]04-02[facility]2019 History of Past illness Narrative* Problem Noted Date Resolved Date Cough 02/16/2019 02/28/2020 Acute bacterial sinusitis 02/16/20192019 Visit for screening mammogram 02/16/2019 Myalgia 08/05/2018 02/28/2020 Uncontrolled type 2 diabetes mellitus without complication, without long-term current use of insulin 08/05/2018 02/28/2020 Chest pain 08/05/2018 02/28/2020 PONV (postoperative nausea and vomiting) 018 02/28/2020 Pelvic mass 02/25/2018 08/24/2019 Overview: Added automatically from request for surgery [id number] Need for pneumococcal vaccination 12/26/2017 02/28/2020 Atrophic vaginitis 12/26/2017 02/28/2020 Adjustment insomnia 12/26/2017 02/28/2020 Yeast vaginitis 12/26/2017 02/28/2020 CKD (chronic kidney disease) 02/14/2016 Right lower quadrant abdominal pain 08/03/2015 02/28/2020 Diverticulitis of large intestine 08/03/2015 02/28/2020 Bronchitis 09/15/2012 02/28/2020 Unspecified pruritic disorder 10/12/2010 Disorder of bone and cartilage, unspecified 09/1802/28/2020 Routine general medical exam ination at a health care facility 03/16/2010 12/14/2014 Overview: 03/16/2010, from Dr. Padgett 02/26/2011, yearly check Routine gynecological examination 03/16/2010 12/14/2014 Overview: [facility] [place] Pruritus of genital organs 09/06/200803/16 Abdominal pain, generalized 10/16/200702/17 Other diseases of lung, not elsewhere classified 11/07/2005 02/28/2020 Hyperlipidemia 07/19/2005 02/28/2020 documented as of this encounter (statuses as of 02/19/2023) [facility]2019 History of Past illness Narrative* Problem Noted Date Resolved Date Cough 02/16/2019 02/28/2020 Acute bacterial sinusitis 02/16/20192019 Visit for screening mammogram 02/16/2019 Myalgia 08/05/2018 02/28/2020 Uncontrolled type 2 diabetes mellitus without complication, without long-term current use of insulin 08/05/2018 02/28/2020 Chest pain 08/05/2018 02/28/2020 PONV (postoperative nausea and vomiting) 018 02/28/2020 Pelvic mass 02/25/2018 08/24/2019 Overview: Added automatically from request for surgery [id number] Need for pneumococcal vaccination 12/26/2017 02/28/2020 Atrophic vaginitis 12/26/2017 02/28/2020 Adjustment insomnia 12/26/2017 02/28/2020 Yeast vaginitis 12/26/2017 02/28/2020 CKD (chronic kidney disease) 02/14/2016 Right lower quadrant abdominal pain 08/03/2015 02/28/2020 Diverticulitis of large intestine 08/03/2015 02/28/2020 Bronchitis 09/15/2012 02/28/2020 Unspecified pruritic disorder 10/12/2010 Disorder of bone and cartilage, unspecified 09/1802/28/2020 Routine general medical exam ination at a health care facility 03/16/2010 12/14/2014 Overview: 03/16/2010, from Dr. Padgett 02/26/2011, yearly check Routine gynecological examination 03/16/2010 12/14/2014 Overview: [facility] [place] Pruritus of genital organs 09/06/200803/16 Abdominal pain, generalized 10/16/200702/17 Other diseases of lung, not elsewhere classified 11/07/2005 02/28/2020 Hyperlipidemia 07/19/2005 02/28/2020 documented as of this encounter (statuses as of 02/25/2023) [facility]2019 History of Past illness Narrative* Problem Noted Date Resolved Date Cough 02/16/2019 02/28/2020 Acute bacterial sinusitis 02/16/20192019 Visit for screening mammogram 02/16/2019 Myalgia 08/05/2018 02/28/2020 Uncontrolled type 2 diabetes mellitus without complication, without long-term current use of insulin 08/05/2018 02/28/2020 Chest pain 08/05/2018 02/28/2020 PONV (postoperative nausea and vomiting) 018 02/28/2020 Pelvic mass 02/25/2018 08/24/2019 Overview: Added automatically from request for surgery [id number] Need for pneumococcal vaccination 12/26/2017 02/28/2020 Atrophic vaginitis 12/26/2017 02/28/2020 Adjustment insomnia 12/26/2017 02/28/2020 Yeast vaginitis 12/26/2017 02/28/2020 CKD (chronic kidney disease) 02/14/2016 Right lower quadrant abdominal pain 08/03/2015 02/28/2020 Diverticulitis of large intestine 08/03/2015 02/28/2020 Bronchitis 09/15/2012 02/28/2020 Unspecified pruritic disorder 10/12/2010 Disorder of bone and cartilage, unspecified 09/1802/28/2020 Routine general medical exam ination at a health care facility 03/16/2010 12/14/2014 Overview: 03/16/2010, from Dr. Padgett 02/26/2011, yearly check Routine gynecological examination 03/16/2010 12/14/2014 Overview: [facility] [place] Pruritus of genital organs 09/06/200803/16 Abdominal pain, generalized 10/16/200702/17 Other diseases of lung, not elsewhere classified 11/07/2005 02/28/2020 Hyperlipidemia 07/19/2005 02/28/2020 documented as of this encounter (statuses as of 02/25/2023) [facility]2019 History of Past illness Narrative* Problem Noted Date Resolved Date Cough 02/16/2019 02/28/2020 Acute bacterial sinusitis 02/16/20192019 Visit for screening mammogram 02/16/2019 Myalgia 08/05/2018 02/28/2020 Uncontrolled type 2 diabetes mellitus without complication, without long-term current use of insulin 08/05/2018 02/28/2020 Chest pain 08/05/2018 02/28/2020 PONV (postoperative nausea and vomiting) 018 02/28/2020 Pelvic mass 02/25/2018 08/24/2019 Overview: Added automatically from request for surgery [id number] Need for pneumococcal vaccination 12/26/2017 02/28/2020 Atrophic vaginitis 12/26/2017 02/28/2020 Adjustment insomnia 12/26/2017 02/28/2020 Yeast vaginitis 12/26/2017 02/28/2020 CKD (chronic kidney disease) 02/14/2016 Right lower quadrant abdominal pain 08/03/2015 02/28/2020 Diverticulitis of large intestine 08/03/2015 02/28/2020 Bronchitis 09/15/2012 02/28/2020 Unspecified pruritic disorder 10/12/2010 Disorder of bone and cartilage, unspecified 09/1802/28/2020 Routine general medical exam ination at a health care facility 03/16/2010 12/14/2014 Overview: 03/16/2010, from Dr. Padgett 02/26/2011, yearly check Routine gynecological examination 03/16/2010 12/14/2014 Overview: [facility] [place] Pruritus of genital organs 09/06/200803/16 Abdominal pain, generalized 10/16/200702/17 Other diseases of lung, not elsewhere classified 11/07/2005 02/28/2020 Hyperlipidemia 07/19/2005 02/28/2020 documented as of this encounter (statuses as of 02/26/2023) [facility]2019 History of Past illness Narrative* Problem Noted Date Resolved Date Cough 02/16/2019 02/28/2020 Acute bacterial sinusitis 02/16/20192019 Visit for screening mammogram 02/16/2019 Myalgia 08/05/2018 02/28/2020 Uncontrolled type 2 diabetes mellitus without complication, without long-term current use of insulin 08/05/2018 02/28/2020 Chest pain 08/05/2018 02/28/2020 PONV (postoperative nausea and vomiting) 018 02/28/2020 Pelvic mass 02/25/2018 08/24/2019 Overview: Added automatically from request for surgery [id number] Need for pneumococcal vaccination 12/26/2017 02/28/2020 Atrophic vaginitis 12/26/2017 02/28/2020 Adjustment insomnia 12/26/2017 02/28/2020 Yeast vaginitis 12/26/2017 02/28/2020 CKD (chronic kidney disease) 02/14/2016 Right lower quadrant abdominal pain 08/03/2015 02/28/2020 Diverticulitis of large intestine 08/03/2015 02/28/2020 Bronchitis 09/15/2012 02/28/2020 Unspecified pruritic disorder 10/12/2010 Disorder of bone and cartilage, unspecified 09/1802/28/2020 Routine general medical exam ination at a health care facility 03/16/2010 12/14/2014 Overview: 03/16/2010, from Dr. Padgett 02/26/2011, yearly check Routine gynecological examination 03/16/2010 12/14/2014 Overview: [facility] [place] Pruritus of genital organs 09/06/200803/16 Abdominal pain, generalized 10/16/200702/17 Other diseases of lung, not elsewhere classified 11/07/2005 02/28/2020 Hyperlipidemia 07/19/2005 02/28/2020 documented as of this encounter (statuses as of 02/27/2023) [facility]04-02-2019 History of Past illness Narrative* Problem Noted Date Resolved Date Cough 02/16/2019 02/28/2020 Acute bacterial sinusitis 02/16/20192019 Visit for screening mammogram 02/16/2019 Myalgia 08/05/2018 02/28/2020 Uncontrolled type 2 diabetes mellitus without complication, without long-term current use of insulin 08/05/2018 02/28/2020 Chest pain 08/05/2018 02/28/2020 PONV (postoperative nausea and vomiting) 018 02/28/2020 Pelvic mass 02/25/2018 08/24/2019 Overview: Added automatically from request for surgery [id number] Need for pneumococcal vaccination 12/26/2017 02/28/2020 Atrophic vaginitis 12/26/2017 02/28/2020 Adjustment insomnia 12/26/2017 02/28/2020 Yeast vaginitis 12/26/2017 02/28/2020 CKD (chronic kidney disease) 02/14/2016 Right lower quadrant abdominal pain 08/03/2015 02/28/2020 Diverticulitis of large intestine 08/03/2015 02/28/2020 Bronchitis 09/15/2012 02/28/2020 Unspecified pruritic disorder 10/12/2010 Disorder of bone and cartilage, unspecified 09/1802/28/2020 Routine general medical exam ination at a health care facility 03/16/2010 12/14/2014 Overview: 03/16/2010, from Dr. Padgett 02/26/2011, yearly check Routine gynecological examination 03/16/2010 12/14/2014 Overview: [facility] [place] Pruritus of genital organs 09/06/200803/16 Abdominal pain, generalized 10/16/200702/17 Other diseases of lung, not elsewhere classified 11/07/2005 02/28/2020 Hyperlipidemia 07/19/2005 02/28/2020 documented as of this encounter (statuses as of 04/01/2023) [facility]04-02-2019 History of Past illness Narrative* Problem Noted Date Resolved Date Cough 02/16/2019 02/28/2020 Acute bacterial sinusitis 02/16/20192019 Visit for screening mammogram 02/16/2019 Myalgia 08/05/2018 02/28/2020 Uncontrolled type 2 diabetes mellitus without complication, without long-term current use of insulin 08/05/2018 02/28/2020 Chest pain 08/05/2018 02/28/2020 PONV (postoperative nausea and vomiting) 018 02/28/2020 Pelvic mass 02/25/2018 08/24/2019 Overview: Added automatically from request for surgery [id number] Need for pneumococcal vaccination 12/26/2017 02/28/2020 Atrophic vaginitis 12/26/2017 02/28/2020 Adjustment insomnia 12/26/2017 02/28/2020 Yeast vaginitis 12/26/2017 02/28/2020 CKD (chronic kidney disease) 02/14/2016 Right lower quadrant abdominal pain 08/03/2015 02/28/2020 Diverticulitis of large intestine 08/03/2015 02/28/2020 Bronchitis 09/15/2012 02/28/2020 Unspecified pruritic disorder 10/12/2010 Disorder of bone and cartilage, unspecified 09/1802/28/2020 Routine general medical exam ination at a health care facility 03/16/2010 12/14/2014 Overview: 03/16/2010, from Dr. Padgett 02/26/2011, yearly check Routine gynecological examination 03/16/2010 12/14/2014 Overview: [facility], [facility] [place] Pruritus of genital organs 09/06/200803/16 Abdominal pain, generalized 10/16/200702/17 Other diseases of lung, not elsewhere classified 11/07/2005 02/28/2020 Hyperlipidemia 07/19/2005 02/28/2020 documented as of this encounter (statuses as of 04/22/2023) [facility]04-02-2019 History of Past illness Narrative* Problem Noted Date Resolved Date Cough 02/16/2019 02/28/2020 Acute bacterial sinusitis 02/16/20192019 Visit for screening mammogram 02/16/2019 Myalgia 08/05/2018 02/28/2020 Uncontrolled type 2 diabetes mellitus without complication, without long-term current use of insulin 08/05/2018 02/28/2020 Chest pain 08/05/2018 02/28/2020 PONV (postoperative nausea and vomiting) 018 02/28/2020 Pelvic mass 02/25/2018 08/24/2019 Overview: Added automatically from request for surgery [id number] Need for pneumococcal vaccination 12/26/2017 02/28/2020 Atrophic vaginitis 12/26/2017 02/28/2020 Adjustment insomnia 12/26/2017 02/28/2020 Yeast vaginitis 12/26/2017 02/28/2020 CKD (chronic kidney disease) 02/14/2016 Right lower quadrant abdominal pain 08/03/2015 02/28/2020 Diverticulitis of large intestine 08/03/2015 02/28/2020 Bronchitis 09/15/2012 02/28/2020 Unspecified pruritic disorder 10/12/2010 Disorder of bone and cartilage, unspecified 09/1802/28/2020 Routine general medical exam ination at a health care facility 03/16/2010 12/14/2014 Overview: 03/16/2010, from Dr. Padgett 02/26/2011, yearly check Routine gynecological examination 03/16/2010 12/14/2014 Overview: [facility], [facility] [place] Pruritus of genital organs 09/06/200803/16 Abdominal pain, generalized 10/16/200702/17 Other diseases of lung, not elsewhere classified 11/07/2005 02/28/2020 Hyperlipidemia 07/19/2005 02/28/2020 documented as of this encounter (statuses as of 04/24/2023) [facility]04-02-2019 History of Past illness Narrative* Problem Noted Date Resolved Date Cough 02/16/2019 02/28/2020 Acute bacterial sinusitis 02/16/20192019 Visit for screening mammogram 02/16/2019 Myalgia 08/05/2018 02/28/2020 Uncontrolled type 2 diabetes mellitus without complication, without long-term current use of insulin 08/05/2018 02/28/2020 Chest pain 08/05/2018 02/28/2020 PONV (postoperative nausea and vomiting) 018 02/28/2020 Pelvic mass 02/25/2018 08/24/2019 Overview: Added automatically from request for surgery [id number] Need for pneumococcal vaccination 12/26/2017 02/28/2020 Atrophic vaginitis 12/26/2017 02/28/2020 Adjustment insomnia 12/26/2017 02/28/2020 Yeast vaginitis 12/26/2017 02/28/2020 CKD (chronic kidney disease) 02/14/2016 Right lower quadrant abdominal pain 08/03/2015 02/28/2020 Diverticulitis of large intestine 08/03/2015 02/28/2020 Bronchitis 09/15/2012 02/28/2020 Unspecified pruritic disorder 10/12/2010 Disorder of bone and cartilage, unspecified 09/1802/28/2020 Routine general medical exam ination at a health care facility 03/16/2010 12/14/2014 Overview: 03/16/2010, from Dr. Padgett 02/26/2011, yearly check Routine gynecological examination 03/16/2010 12/14/2014 Overview: [facility], [facility] [place] Pruritus of genital organs 09/06/200803/16 Abdominal pain, generalized 10/16/200702/17 Other diseases of lung, not elsewhere classified 11/07/2005 02/28/2020 Hyperlipidemia 07/19/2005 02/28/2020 documented as of this encounter (statuses as of 05/05/2023) [facility]04-02-2019 History of Past illness Narrative* Problem Noted Date Resolved Date Cough 02/16/2019 02/28/2020 Acute bacterial sinusitis 02/16/20192019 Visit for screening mammogram 02/16/2019 Myalgia 08/05/2018 02/28/2020 Uncontrolled type 2 diabetes mellitus without complication, without long-term current use of insulin 08/05/2018 02/28/2020 Chest pain 08/05/2018 02/28/2020 PONV (postoperative nausea and vomiting) 018 02/28/2020 Pelvic mass 02/25/2018 08/24/2019 Overview: Added automatically from request for surgery [id number] Need for pneumococcal vaccination 12/26/2017 02/28/2020 Atrophic vaginitis 12/26/2017 02/28/2020 Adjustment insomnia 12/26/2017 02/28/2020 Yeast vaginitis 12/26/2017 02/28/2020 CKD (chronic kidney disease) 02/14/2016 Right lower quadrant abdominal pain 08/03/2015 02/28/2020 Diverticulitis of large intestine 08/03/2015 02/28/2020 Bronchitis 09/15/2012 02/28/2020 Unspecified pruritic disorder 10/12/2010 Disorder of bone and cartilage, unspecified 09/1802/28/2020 Routine general medical exam ination at a health care facility 03/16/2010 12/14/2014 Overview: 03/16/2010, from Dr. Padgett 02/26/2011, yearly check Routine gynecological examination 03/16/2010 12/14/2014 Overview: [facility], [facility] [place] Pruritus of genital organs 09/06/200803/16 Abdominal pain, generalized 10/16/200702/17 Other diseases of lung, not elsewhere classified 11/07/2005 02/28/2020 Hyperlipidemia 07/19/2005 02/28/2020 documented as of this encounter (statuses as of 05/05/2023) [facility]04-02-2019 History of Past illness Narrative* Problem Noted Date Diagnosed Date Resolved Date Cough 02/16/2019 02/28/2020 Acute bacterial sinusitis 02/16/2019 Visit for screening mammogram 02/16/2019 02/28/2020 Myalgia 08/05/2018 02/28/2020 Uncontrolled type 2 diabetes mellitus without complication, without long-term current use of insulin 08/05/2018 02/28/2020 Chest pain 08/05/2018 02/28/2020 PONV (postoperative nausea and vomiting) 03/11/2018 02/28/2020 Pelvic mass 02/25/2018 08/24/2019 Overview: Added automatically from request for surgery [id number] Need for pneumococcal vaccination 12/26/2017 02/28/2020 Atrophic vaginitis 12/26/2017 0 Adjustment insomnia 12/26/2017 02/28/20 20 Yeast vaginitis 12/26/2017 02/28/2020 CKD (chronic kidney disease) 02/14/2016 02/28/2020 Right lower quadrant abdominal pain 08/03/2015 02/28/2020 Diverticulitis of large intestine 08/03/2015 02/28/2020 Bronchitis 09/15/2012 02/28/2020 Unspecified pruritic disorder 10/12/2010 02/28/2020 Disorder of bone and cartilage, unspecified 10/12/2010 02/28/2020 Routine general medical exam ination at a health care facility 03/16/2010 12/14/2014 Overview: 03/16/2010, from Dr. Padgett 02/26/2011, yearly check Routine gynecological examination 03/16/2010 12/14/2014 Overview: [facility], [facility] [place] Pruritus of genital organs 09/06/2008 0 03/16/2010 Abdominal pain, generalized 10/16/2007 03/16/2010 Other diseases of lung, not elsewhere classified 11/07/2005 02/28/2020 Hyperlipidemia 07/19/2005 02/28/2020 documented as of this encounter (statuses as of 06/02/2023) [facility]04-02-2019 History of Past illness Narrative* Problem Noted Date Diagnosed Date Resolved Date Cough 02/16/2019 02/28/2020 Acute bacterial sinusitis 02/16/2019 Visit for screening mammogram 02/16/2019 02/28/2020 Myalgia 08/05/2018 02/28/2020 Uncontrolled type 2 diabetes mellitus without complication, without long-term current use of insulin 08/05/2018 02/28/2020 Right upper quadrant pain 08/05/2018 Chest pain 08/05/2018 02/28/2020 PONV (postoperative nausea and vomiting) 03/11/2018 02/28/2020 Pelvic mass 02/25/2018 08/24/2019 Overview: Added automatically from request for surgery [id number] Need for pneumococcal vaccination 12/26/2017 02/28/2020 Atrophic vaginitis 12/26/2017 0 Adjustment insomnia 12/26/2017 02/28/20 20 Yeast vaginitis 12/26/2017 02/28/2020 CKD (chronic kidney disease) 02/14/2016 02/28/2020 Right lower quadrant abdominal pain 08/03/2015 02/28/2020 Diverticulitis of large intestine 08/03/2015 02/28/2020 Bronchitis 09/15/2012 02/28/2020 Unspecified pruritic disorder 10/12/2010 02/28/2020 Disorder of bone and cartilage, unspecified 10/12/2010 02/28/2020 Routine general medical exam ination at a health care facility 03/16/2010 12/14/2014 Overview: 03/16/2010, from Dr. Padgett 02/26/2011, yearly check Routine gynecological examination 03/16/2010 12/14/2014 Overview: [facility], [facility] [place] Pruritus of genital organs 09/06/2008 0 03/16/2010 Other diseases of lung, not elsewhere classified 11/07/2005 02/28/2020 Hyperlipidemia 07/19/2005 02/28/2020 documented as of this encounter (statuses as of 09/21/2023) [facility]04-02-2019 History of Past illness Narrative* Problem Noted Date Diagnosed Date Resolved Date Cough 02/16/2019 02/28/2020 Acute bacterial sinusitis 02/16/2019 Visit for screening mammogram 02/16/2019 02/28/2020 Myalgia 08/05/2018 02/28/2020 Uncontrolled type 2 diabetes mellitus without complication, without long-term current use of insulin 08/05/2018 02/28/2020 Right upper quadrant pain 08/05/2018 Chest pain 08/05/2018 02/28/2020 PONV (postoperative nausea and vomiting) 03/11/2018 02/28/2020 Pelvic mass 02/25/2018 08/24/2019 Overview: Added automatically from request for surgery [id number] Need for pneumococcal vaccination 12/26/2017 02/28/2020 Atrophic vaginitis 12/26/2017 0 Adjustment insomnia 12/26/2017 02/28/20 20 Yeast vaginitis 12/26/2017 02/28/2020 CKD (chronic kidney disease) 02/14/2016 02/28/2020 Right lower quadrant abdominal pain 08/03/2015 02/28/2020 Diverticulitis of large intestine 08/03/2015 02/28/2020 Bronchitis 09/15/2012 02/28/2020 Unspecified pruritic disorder 10/12/2010 02/28/2020 Disorder of bone and cartilage, unspecified 10/12/2010 02/28/2020 Routine general medical exam ination at a health care facility 03/16/2010 12/14/2014 Overview: 03/16/2010, from Dr. Padgett 02/26/2011, yearly check Routine gynecological examination 03/16/2010 12/14/2014 Overview: [facility], [facility] [place] Pruritus of genital organs 09/06/2008 0 03/16/2010 Other diseases of lung, not elsewhere classified 11/07/2005 02/28/2020 Hyperlipidemia 07/19/2005 02/28/2020 documented as of this encounter (statuses as of 09/21/2023) [facility]04-02-2019 History of Past illness Narrative* Problem Noted Date Diagnosed Date Resolved Date Cough 02/16/2019 02/28/2020 Acute bacterial sinusitis 02/16/2019 Visit for screening mammogram 02/16/2019 02/28/2020 Myalgia 08/05/2018 02/28/2020 Uncontrolled type 2 diabetes mellitus without complication, without long-term current use of insulin 08/05/2018 02/28/2020 Right upper quadrant pain 08/05/2018 Chest pain 08/05/2018 02/28/2020 PONV (postoperative nausea and vomiting) 03/11/2018 02/28/2020 Pelvic mass 02/25/2018 08/24/2019 Overview: Added automatically from request for surgery [id number] Need for pneumococcal vaccination 12/26/2017 02/28/2020 Atrophic vaginitis 12/26/2017 0 Adjustment insomnia 12/26/2017 02/28/20 20 Yeast vaginitis 12/26/2017 02/28/2020 CKD (chronic kidney disease) 02/14/2016 02/28/2020 Right lower quadrant abdominal pain 08/03/2015 02/28/2020 Diverticulitis of large intestine 08/03/2015 02/28/2020 Bronchitis 09/15/2012 02/28/2020 Unspecified pruritic disorder 10/12/2010 02/28/2020 Disorder of bone and cartilage, unspecified 10/12/2010 02/28/2020 Routine general medical exam ination at a health care facility 03/16/2010 12/14/2014 Overview: 03/16/2010, from Dr. Padgett 02/26/2011, yearly check Routine gynecological examination 03/16/2010 12/14/2014 Overview: [facility], [facility] [place] Pruritus of genital organs 09/06/2008 0 03/16/2010 Other diseases of lung, not elsewhere classified 11/07/2005 02/28/2020 Hyperlipidemia 07/19/2005 02/28/2020 documented as of this encounter (statuses as of 09/21/2023) [facility] note* Diagnosis Chronic insomnia Insomnia, unspecified Situational anxiety Other anxiety states [facility] Diagnosis Chronic insomnia Insomnia, unspecified Situational anxiety Other anxiety states documented in this encounter [facility] note* Diagnosis Chronic insomnia Insomnia, unspecified Situational anxiety Other anxiety states documented in this encounter [facility] note* Diagnosis Chronic insomnia Insomnia, unspecified Situational anxiety Other anxiety states documented in this encounter [facility] note* Diagnosis RUQ abdominal pain Abdominal pain, right upper quadrant documented in this encounter [facility] note* Diagnosis Chronic insomnia Insomnia, unspecified Situational anxiety Other anxiety states documented in this encounter [facility] note* Diagnosis Dyslipidemia Other and unspecified hyperlipidemia documented in this encounter [facility] note* Diagnosis Acquired hypothyroidism Unspecified hypothyroidism documented in this encounter [facility] note* Diagnosis Hypertension, unspecified type documented in this encounter [facility] note* Diagnosis Chronic insomnia Insomnia, unspecified Situational anxiety Other anxiety states documented in this encounter [facility] note* Diagnosis Acute non-recurrent maxillary sinusitis- Primary Acute cough Chronic insomnia Insomnia, unspecified Situational anxiety Other anxiety states Hypertension, unspecified type Acquired hypothyroidism Unspecified hypothyroidism Dyslipidemia Other and unspecified hyperlipidemia Type 2 diabetes mellitus with stage 3 chronic kidney disease, with long-term current use of insulin, unspecified whether stage 3a or 3b CKD (HCC) Vitamin B12 deficiency Other B-complex deficiencies Vitamin D deficiency Unspecified vitamin D deficiency documented in this encounter [facility] note* Diagnosis Controlled type 2 diabetes mellitus without complication, with long-term current use of insulin (HCC) documented in this encounter [facility] note* Diagnosis Type 2 diabetes mellitus with stage 3 chronic kidney disease, with long-term current use of insulin, unspecified whether stage 3a or 3b CKD (HCC)- Primary documented in this encounter [facility] note* Diagnosis Hypertension, unspecified type documented in this encounter [facility] note* Diagnosis Uncontrolled type 2 diabetes mellitus with hyperglycemia (HCC)- Primary Syncope, unspecified syncope type History of head injury Personal history of other injury Increased frequency of headaches Headache Headache, worsening Headache Short-term memory loss Memory loss Essential hypertension, benign Hypertension, unspecified type Acquired hypothyroidism Unspecified hypothyroidism documented in this encounter [facility] note* Diagnosis Encounter for screening mammogram for malignant neoplasm of breast- Primary Other screening mammogram History of head injury Personal history of other injury Increased frequency of headaches Headache Headache, worsening Headache Abnormal CT of brain Nonspecific (abnormal) findings on radiological and other examination of skull and head documented in this encounter [facility] note* Diagnosis Post-traumatic headache, not intractable, unspecified chronicity pattern- Primary Abnormal head CT Nonspecific (abnormal) findings on radiological and other examination of skull and head documented in this encounter [facility] note* Diagnosis Diarrhea, unspecified type- Primary Generalized abdominal pain Abdominal pain, generalized Change in bowel habits Other symptoms involving digestive system Right upper quadrant pain Abdominal pain, right upper quadrant documented in this encounter [facility] note* Diagnosis Pre-operative examination- Primary Preoperative examination, unspecified Type 2 diabetes mellitus without complication, with long-term current use of insulin ([facility]) Class 1 obesity due to excess calories with body mass index (BMI) of 32.0 to 32.9 in adult, unspecified whether serious comorbidity present Fatty liver Other chronic nonalcoholic liver disease Situational anxiety Other anxiety states Gout involving toe of right foot, unspecified cause, unspecified chronicity Hypertensive kidney disease with stage 3 chronic kidney disease, unspecified whether stage 3a or 3b CKD ([facility]) RLS (restless legs syndrome) Restless legs syndrome (RLS) Dyslipidemia Other and unspecified hyperlipidemia GERD without esophagitis Esophageal reflux PMR (polymyalgia rheumatica) ([facility]) Polymyalgia rheumatica Chronic kidney disease (CKD) stage G3a/A2, moderately decreased glomerular filtration rate (GFR) between 45-59 mL/min/1.73 square meter and albuminuria creatinine ratio between 30-299 mg/g ([facility]) Chronic kidney disease, Stage III (moderate) Calculus of gallbladder with acute on chronic cholecystitis without obstruction Right upper quadrant pain Abdominal pain, right upper quadrant documented in this encounter [facility] note* Diagnosis Calculus of gallbladder with chronic cholecystitis without obstruction- Primary Calculus of gallbladder with other cholecystitis, without mention of obstruction Right upper quadrant pain Abdominal pain, right upper quadrant S/P laparoscopic cholecystectomy Other postprocedural status documented in this encounter [facility] note* Diagnosis Diarrhea, unspecified type- Primary Abdominal pain, unspecified abdominal location Change in bowel habits Other symptoms involving digestive system GERD without esophagitis- Primary Esophageal reflux [facility] Diagnosis GERD without esophagitis- Primary Esophageal reflux Diarrhea, unspecified type Abdominal pain, unspecified abdominal location Change in bowel habits Other symptoms involving digestive system documented in this encounter [facility] note* Diagnosis Change in bowel habits- Primary Other symptoms involving digestive system Diarrhea, unspecified type documented in this encounter [facility] note* Diagnosis Anxiety as acute reaction to exceptional stress Predominant disturbance of emotions documented in this encounter [facility] note* Diagnosis Diarrhea, unspecified type- Primary Need for influenza vaccination Need for prophylactic vaccination and inoculation against influenza Medication side effect Unspecified adverse effect of unspecified drug, medicinal and biological substance Uncontrolled type 2 diabetes mellitus with hyperglycemia (HCC) Need for pneumococcal 20-valent conjugate vaccination Acute non-recurrent maxillary sinusitis Anemia, unspecified type Fatigue, unspecified type PMR (polymyalgia rheumatica) ([facility]) Polymyalgia rheumatica Type 2 diabetes mellitus with stage 3 chronic kidney disease, with long-term current use of insulin, unspecified whether stage 3a or 3b CKD (HCC) documented in this encounter [facility] note* Diagnosis Anxiety as acute reaction to exceptional stress Predominant disturbance of emotions documented in this encounter [facility] note* Diagnosis Change in bowel habits Other symptoms involving digestive system Right upper quadrant pain Abdominal pain, right upper quadrant documented in this encounter [facility] note* Diagnosis Syncope, unspecified syncope type History of head injury Personal history of other injury Increased frequency of headaches Headache Headache, worsening Headache documented in this encounter [facility] note* Diagnosis Encounter for screening mammogram for malignant neoplasm of breast Other screening mammogram [facility]* Diagnosis Anxiety as acute reaction to exceptional stress Predominant disturbance of emotions documented in this encounter [facility] note* Diagnosis Anxiety as acute reaction to exceptional stress Predominant disturbance of emotions documented in this encounter [facility] note* Diagnosis Acquired hypothyroidism Unspecified hypothyroidism [facility]* Diagnosis Hypertension, unspecified type documented in this encounter [facility] note* Diagnosis Uncontrolled type 2 diabetes mellitus with hyperglycemia (HCC)- Primary Diarrhea, unspecified type Acquired hypothyroidism Unspecified hypothyroidism Hypertension, unspecified type Dyslipidemia Other and unspecified hyperlipidemia Platelets decreased (HCC) Thrombocytopenia, unspecified documented in this encounter [facility] note* Diagnosis Type 2 diabetes mellitus with stage 3 chronic kidney disease, with long-term current use of insulin, unspecified whether stage 3a or 3b CKD (HCC)- Primary documented in this encounter [facility] note* Diagnosis Type 2 diabetes mellitus with stage 3 chronic kidney disease, with long-term current use of insulin, unspecified whether stage 3a or 3b CKD (HCC)- [facility] Diagnosis Uncontrolled type 2 diabetes mellitus with hyperglycemia ([facility])- Primary Acquired hypothyroidism Unspecified hypothyroidism Chronic insomnia Insomnia, unspecified Situational anxiety Other anxiety states Encounter for screening mammogram for breast cancer Sore throat Acute pharyngitis Acute cough Otalgia of both ears Otalgia, unspecified [facility] Diagnosis Hypertension, unspecified type [facility] Diagnosis Anxiety as acute reaction to exceptional stress Predominant disturbance of emotions documented in this encounter [facility] note* Diagnosis Encounter for screening mammogram for breast cancer [facility] Diagnosis Anxiety as acute reaction to exceptional stress Predominant disturbance of emotions documented in this encounter [facility] note* Diagnosis Hypertension, unspecified type- Primary [facility] Diagnosis Other iron 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- Primary [facility] Diagnosis Acquired hypothyroidism Unspecified hypothyroidism [facility] Diagnosis Anxiety as acute reaction to exceptional stress Predominant disturbance of emotions documented in this encounter [facility] note* Diagnosis Pre-operative examination- Primary Preoperative examination, unspecified Type 2 diabetes mellitus without complication, with long-term current use of insulin ([facility]) Class 1 obesity due to excess calories with body mass index (BMI) of 32.0 to 32.9 in adult, unspecified whether serious comorbidity present Fatty liver Other chronic nonalcoholic liver disease Situational anxiety Other anxiety states Gout involving toe of right foot, unspecified cause, unspecified chronicity Hypertensive kidney disease with stage 3 chronic kidney disease, unspecified whether stage 3a or 3b CKD ([facility]) RLS (restless legs syndrome) Restless legs syndrome (RLS) Dyslipidemia Other and unspecified hyperlipidemia GERD without esophagitis Esophageal reflux PMR (polymyalgia rheumatica) ([facility]) Polymyalgia rheumatica Chronic kidney disease (CKD) stage G3a/A2, moderately decreased glomerular filtration rate (GFR) between 45-59 mL/min/1.73 square meter and albuminuria creatinine ratio between 30-299 mg/g ([facility]) Chronic kidney disease, Stage III (moderate) Type 2 diabetes mellitus with stage 3 chronic kidney disease, with long-term current use of insulin, unspecified whether stage 3a or 3b CKD ([facility])- Primary Acquired hypothyroidism Unspecified hypothyroidism Hypertension, unspecified type Chronic insomnia Insomnia, unspecified Daytime sleepiness [facility] Diagnosis Pre-operative examination- Primary Preoperative examination, unspecified Type 2 diabetes mellitus without complication, with long-term current use of insulin ([facility]) Class 1 obesity due to excess calories with body mass index (BMI) of 32.0 to 32.9 in adult, unspecified whether serious comorbidity present Fatty liver Other chronic nonalcoholic liver disease Situational anxiety Other anxiety states Gout involving toe of right foot, unspecified cause, unspecified chronicity Hypertensive kidney disease with stage 3 chronic kidney disease, unspecified whether stage 3a or 3b CKD (HCC) RLS (restless legs syndrome) Restless legs syndrome (RLS) Dyslipidemia Other and unspecified hyperlipidemia GERD without esophagitis Esophageal reflux PMR (polymyalgia rheumatica) (HCC) Polymyalgia rheumatica Chronic kidney disease (CKD) stage G3a/A2, moderately decreased glomerular filtration rate (GFR) between 45-59 mL/min/1.73 square meter and albuminuria creatinine ratio between 30-299 mg/g (HCC) Chronic kidney disease, Stage III (moderate) Chronic insomnia- Primary Insomnia, unspecified documented in this encounter [facility] note* Diagnosis Pre-operative examination- Primary Preoperative examination, unspecified Type 2 diabetes mellitus without complication, with long-term current use of insulin ([facility]) Class 1 obesity due to excess calories with body mass index (BMI) of 32.0 to 32.9 in adult, unspecified whether serious comorbidity present Fatty liver Other chronic nonalcoholic liver disease Situational anxiety Other anxiety states Gout involving toe of right foot, unspecified cause, unspecified chronicity Hypertensive kidney disease with stage 3 chronic kidney disease, unspecified whether stage 3a or 3b CKD (HCC) RLS (restless legs syndrome) Restless legs syndrome (RLS) Dyslipidemia Other and unspecified hyperlipidemia GERD without esophagitis Esophageal reflux PMR (polymyalgia rheumatica) (HCC) Polymyalgia rheumatica Chronic kidney disease (CKD) stage G3a/A2, moderately decreased glomerular filtration rate (GFR) between 45-59 mL/min/1.73 square meter and albuminuria creatinine ratio between 30-299 mg/g (HCC) Chronic kidney disease, Stage III (moderate) Type 2 diabetes mellitus with stage 3 chronic kidney disease, with long-term current use of insulin, unspecified whether stage 3a or 3b CKD (HCC) documented in this encounter [facility] note* Diagnosis Pre-operative examination- Primary Preoperative examination, unspecified Type 2 diabetes mellitus without complication, with long-term current use of insulin ([facility]) Class 1 obesity due to excess calories with body mass index (BMI) of 32.0 to 32.9 in adult, unspecified whether serious comorbidity present Fatty liver Other chronic nonalcoholic liver disease Situational anxiety Other anxiety states Gout involving toe of right foot, unspecified cause, unspecified chronicity Hypertensive kidney disease with stage 3 chronic kidney disease, unspecified whether stage 3a or 3b CKD (HCC) RLS (restless legs syndrome) Restless legs syndrome (RLS) Dyslipidemia Other and unspecified hyperlipidemia GERD without esophagitis Esophageal reflux PMR (polymyalgia rheumatica) (HCC) Polymyalgia rheumatica Chronic kidney disease (CKD) stage G3a/A2, moderately decreased glomerular filtration rate (GFR) between 45-59 mL/min/1.73 square meter and albuminuria creatinine ratio between 30-299 mg/g (HCC) Chronic kidney disease, Stage III (moderate) Acquired hypothyroidism Unspecified hypothyroidism documented in this encounter [facility] note* Diagnosis Cough Pre-operative examination- Primary Preoperative examination, unspecified Type 2 diabetes mellitus without complication, with long-term current use of insulin ([facility]) Class 1 obesity due to excess calories with body mass index (BMI) of 32.0 to 32.9 in adult, unspecified whether serious comorbidity present Fatty liver Other chronic nonalcoholic liver disease Situational anxiety Other anxiety states Gout involving toe of right foot, unspecified cause, unspecified chronicity Hypertensive kidney disease with stage 3 chronic kidney disease, unspecified whether stage 3a or 3b CKD (HCC) RLS (restless legs syndrome) Restless legs syndrome (RLS) Dyslipidemia Other and unspecified hyperlipidemia GERD without esophagitis Esophageal reflux PMR (polymyalgia rheumatica) (HCC) Polymyalgia rheumatica Chronic kidney disease (CKD) stage G3a/A2, moderately decreased glomerular filtration rate (GFR) between 45-59 mL/min/1.73 square meter and albuminuria creatinine ratio between 30-299 mg/g (HCC) Chronic kidney disease, Stage III (moderate) documented in this encounter [facility] note* Diagnosis Pre-operative examination- Primary Preoperative examination, unspecified Type 2 diabetes mellitus without complication, with long-term current use of insulin ([facility]) Class 1 obesity due to excess calories with body mass index (BMI) of 32.0 to 32.9 in adult, unspecified whether serious comorbidity present Fatty liver Other chronic nonalcoholic liver disease Situational anxiety Other anxiety states Gout involving toe of right foot, unspecified cause, unspecified chronicity Hypertensive kidney disease with stage 3 chronic kidney disease, unspecified whether stage 3a or 3b CKD (HCC) RLS (restless legs syndrome) Restless legs syndrome (RLS) Dyslipidemia Other and unspecified hyperlipidemia GERD without esophagitis Esophageal reflux PMR (polymyalgia rheumatica) (HCC) Polymyalgia rheumatica Chronic kidney disease (CKD) stage G3a/A2, moderately decreased glomerular filtration rate (GFR) between 45-59 mL/min/1.73 square meter and albuminuria creatinine ratio between 30-299 mg/g (HCC) Chronic kidney disease, Stage III (moderate) Chronic insomnia Insomnia, unspecified Hypertension, unspecified type Dyslipidemia Other and unspecified hyperlipidemia documented in this encounter [facility] note* Diagnosis Pre-operative examination- Primary Preoperative examination, unspecified Type 2 diabetes mellitus without complication, with long-term current use of insulin (HCC) Class 1 obesity due to excess calories with body mass index (BMI) of 32.0 to 32.9 in adult, unspecified whether serious comorbidity present Fatty liver Other chronic nonalcoholic liver disease Situational anxiety Other anxiety states Gout involving toe of right foot, unspecified cause, unspecified chronicity Hypertensive kidney disease with stage 3 chronic kidney disease, unspecified whether stage 3a or 3b CKD (HCC) RLS (restless legs syndrome) Restless legs syndrome (RLS) Dyslipidemia Other and unspecified hyperlipidemia GERD without esophagitis Esophageal reflux PMR (polymyalgia rheumatica) (HCC) Polymyalgia rheumatica Chronic kidney disease (CKD) stage G3a/A2, moderately decreased glomerular filtration rate (GFR) between 45-59 mL/min/1.73 square meter and albuminuria creatinine ratio between 30-299 mg/g (HCC) Chronic kidney disease, Stage III (moderate) Type 2 diabetes mellitus with stage 3 chronic kidney disease, with long-term current use of insulin, unspecified whether stage 3a or 3b CKD (HCC)- Primary documented in this encounter [facility] note* Diagnosis Pre-operative examination- Primary Preoperative examination, unspecified Type 2 diabetes mellitus without complication, with long-term current use of insulin (HCC) Class 1 obesity due to excess calories with body mass index (BMI) of 32.0 to 32.9 in adult, unspecified whether serious comorbidity present Fatty liver Other chronic nonalcoholic liver disease Situational anxiety Other anxiety states Gout involving toe of right foot, unspecified cause, unspecified chronicity Hypertensive kidney disease with stage 3 chronic kidney disease, unspecified whether stage 3a or 3b CKD (HCC) RLS (restless legs syndrome) Restless legs syndrome (RLS) Dyslipidemia Other and unspecified hyperlipidemia GERD without esophagitis Esophageal reflux PMR (polymyalgia rheumatica) (HCC) Polymyalgia rheumatica Chronic kidney disease (CKD) stage G3a/A2, moderately decreased glomerular filtration rate (GFR) between 45-59 mL/min/1.73 square meter and albuminuria creatinine ratio between 30-299 mg/g (HCC) Chronic kidney disease, Stage III (moderate) Type 2 diabetes mellitus with stage 3a chronic kidney disease, with long-term current use of insulin ([facility])- [facility] Diagnosis Pre-operative examination- Primary Preoperative examination, unspecified Type 2 diabetes mellitus without complication, with long-term current use of insulin (HCC) Class 1 obesity due to excess calories with body mass index (BMI) of 32.0 to 32.9 in adult, unspecified whether serious comorbidity present Fatty liver Other chronic nonalcoholic liver disease Situational anxiety Other anxiety states Gout involving toe of right foot, unspecified cause, unspecified chronicity Hypertensive kidney disease with stage 3 chronic kidney disease, unspecified whether stage 3a or 3b CKD (HCC) RLS (restless legs syndrome) Restless legs syndrome (RLS) Dyslipidemia Other and unspecified hyperlipidemia GERD without esophagitis Esophageal reflux PMR (polymyalgia rheumatica) (HCC) Polymyalgia rheumatica Chronic kidney disease (CKD) stage G3a/A2, moderately decreased glomerular filtration rate (GFR) between 45-59 mL/min/1.73 square meter and albuminuria creatinine ratio between 30-299 mg/g (HCC) Chronic kidney disease, Stage III (moderate) Type 2 diabetes mellitus with stage 3 chronic kidney disease, with long-term current use of insulin, unspecified whether stage 3a or 3b CKD (HCC)- [facility] Diagnosis Pre-operative examination- Primary Preoperative examination, unspecified Type 2 diabetes mellitus without complication, with long-term current use of insulin (HCC) Class 1 obesity due to excess calories with body mass index (BMI) of 32.0 to 32.9 in adult, unspecified whether serious comorbidity present Fatty liver Other chronic nonalcoholic liver disease Situational anxiety Other anxiety states Gout involving toe of right foot, unspecified cause, unspecified chronicity Hypertensive kidney disease with stage 3 chronic kidney disease, unspecified whether stage 3a or 3b CKD (HCC) RLS (restless legs syndrome) Restless legs syndrome (RLS) Dyslipidemia Other and unspecified hyperlipidemia GERD without esophagitis Esophageal reflux PMR (polymyalgia rheumatica) (HCC) Polymyalgia rheumatica Chronic kidney disease (CKD) stage G3a/A2, moderately decreased glomerular filtration rate (GFR) between 45-59 mL/min/1.73 square meter and albuminuria creatinine ratio between 30-299 mg/g (HCC) Chronic kidney disease, Stage III (moderate) Acquired hypothyroidism- Primary Unspecified hypothyroidism Dyslipidemia Other and unspecified hyperlipidemia Type 2 diabetes mellitus with stage 3 chronic kidney disease, with long-term current use of insulin, unspecified whether stage 3a or 3b CKD (HCC) Hypertension, unspecified type documented in this encounter [facility] note* Diagnosis Pre-operative examination- Primary Preoperative examination, unspecified Type 2 diabetes mellitus without complication, with long-term current use of insulin (HCC) Class 1 obesity due to excess calories with body mass index (BMI) of 32.0 to 32.9 in adult, unspecified whether serious comorbidity present Fatty liver Other chronic nonalcoholic liver disease Situational anxiety Other anxiety states Gout involving toe of right foot, unspecified cause, unspecified chronicity Hypertensive kidney disease with stage 3 chronic kidney disease, unspecified whether stage 3a or 3b CKD (HCC) RLS (restless legs syndrome) Restless legs syndrome (RLS) Dyslipidemia Other and unspecified hyperlipidemia GERD without esophagitis Esophageal reflux PMR (polymyalgia rheumatica) (HCC) Polymyalgia rheumatica Chronic kidney disease (CKD) stage G3a/A2, moderately decreased glomerular filtration rate (GFR) between 45-59 mL/min/1.73 square meter and albuminuria creatinine ratio between 30-299 mg/g (HCC) Chronic kidney disease, Stage III (moderate) Anemia, unspecified type- Primary Abdominal bloating Flatulence, eructation, and gas pain Type 2 diabetes mellitus with stage 3 chronic kidney disease, with long-term current use of insulin, unspecified whether stage 3a or 3b CKD (HCC) Dyslipidemia Other and unspecified hyperlipidemia Myalgia, lower leg documented in this encounter [facility] note* Diagnosis Pre-operative examination- Primary Preoperative examination, unspecified Type 2 diabetes mellitus without complication, with long-term current use of insulin ([facility]) Class 1 obesity due to excess calories with body mass index (BMI) of 32.0 to 32.9 in adult, unspecified whether serious comorbidity present Fatty liver Other chronic nonalcoholic liver disease Situational anxiety Other anxiety states Gout involving toe of right foot, unspecified cause, unspecified chronicity Hypertensive kidney disease with stage 3 chronic kidney disease, unspecified whether stage 3a or 3b CKD (HCC) RLS (restless legs syndrome) Restless legs syndrome (RLS) Dyslipidemia Other and unspecified hyperlipidemia GERD without esophagitis Esophageal reflux PMR (polymyalgia rheumatica) (HCC) Polymyalgia rheumatica Chronic kidney disease (CKD) stage G3a/A2, moderately decreased glomerular filtration rate (GFR) between 45-59 mL/min/1.73 square meter and albuminuria creatinine ratio between 30-299 mg/g (HCC) Chronic kidney disease, Stage III (moderate) Anemia, unspecified type Abdominal bloating Flatulence, eructation, and gas pain documented in this encounter [facility] note* Diagnosis Pre-operative examination- Primary Preoperative examination, unspecified Type 2 diabetes mellitus without complication, with long-term current use of insulin ([facility]) Class 1 obesity due to excess calories with body mass index (BMI) of 32.0 to 32.9 in adult, unspecified whether serious comorbidity present Fatty liver Other chronic nonalcoholic liver disease Situational anxiety Other anxiety states Gout involving toe of right foot, unspecified cause, unspecified chronicity Hypertensive kidney disease with stage 3 chronic kidney disease, unspecified whether stage 3a or 3b CKD (HCC) RLS (restless legs syndrome) Restless legs syndrome (RLS) Dyslipidemia Other and unspecified hyperlipidemia GERD without esophagitis Esophageal reflux PMR (polymyalgia rheumatica) (HCC) Polymyalgia rheumatica Chronic kidney disease (CKD) stage G3a/A2, moderately decreased glomerular filtration rate (GFR) between 45-59 mL/min/1.73 square meter and albuminuria creatinine ratio between 30-299 mg/g (HCC) Chronic kidney disease, Stage III (moderate) Positive fecal occult blood test- Primary Nonspecific abnormal finding in stool contents Anemia, unspecified type Gastrointestinal hemorrhage with melena Abdominal bloating Flatulence, eructation, and gas pain documented in this encounter [facility] note* Diagnosis Pre-operative examination- Primary Preoperative examination, unspecified Type 2 diabetes mellitus without complication, with long-term current use of insulin (HCC) Class 1 obesity due to excess calories with body mass index (BMI) of 32.0 to 32.9 in adult, unspecified whether serious comorbidity present Fatty liver Other chronic nonalcoholic liver disease Situational anxiety Other anxiety states Gout involving toe of right foot, unspecified cause, unspecified chronicity Hypertensive kidney disease with stage 3 chronic kidney disease, unspecified whether stage 3a or 3b CKD (HCC) RLS (restless legs syndrome) Restless legs syndrome (RLS) Dyslipidemia Other and unspecified hyperlipidemia GERD without esophagitis Esophageal reflux PMR (polymyalgia rheumatica) (HCC) Polymyalgia rheumatica Chronic kidney disease (CKD) stage G3a/A2, moderately decreased glomerular filtration rate (GFR) between 45-59 mL/min/1.73 square meter and albuminuria creatinine ratio between 30-299 mg/g (HCC) Chronic kidney disease, Stage III (moderate) Spleen enlarged- Primary Splenomegaly documented in this encounter [facility] note* Diagnosis Pre-operative examination- Primary Preoperative examination, unspecified Type 2 diabetes mellitus without complication, with long-term current use of insulin ([facility]) Class 1 obesity due to excess calories with body mass index (BMI) of 32.0 to 32.9 in adult, unspecified whether serious comorbidity present Fatty liver Other chronic nonalcoholic liver disease Situational anxiety Other anxiety states Gout involving toe of right foot, unspecified cause, unspecified chronicity Hypertensive kidney disease with stage 3 chronic kidney disease, unspecified whether stage 3a or 3b CKD (HCC) RLS (restless legs syndrome) Restless legs syndrome (RLS) Dyslipidemia Other and unspecified hyperlipidemia GERD without esophagitis Esophageal reflux PMR (polymyalgia rheumatica) (HCC) Polymyalgia rheumatica Chronic kidney disease (CKD) stage G3a/A2, moderately decreased glomerular filtration rate (GFR) between 45-59 mL/min/1.73 square meter and albuminuria creatinine ratio between 30-299 mg/g (HCC) Chronic kidney disease, Stage III (moderate) Chronic insomnia Insomnia, unspecified Acquired hypothyroidism Unspecified hypothyroidism documented in this encounter [facility] note* Diagnosis Pre-operative examination- Primary Preoperative examination, unspecified Type 2 diabetes mellitus without complication, with long-term current use of insulin ([facility]) Class 1 obesity due to excess calories with body mass index (BMI) of 32.0 to 32.9 in adult, unspecified whether serious comorbidity present Fatty liver Other chronic nonalcoholic liver disease Situational anxiety Other anxiety states Gout involving toe of right foot, unspecified cause, unspecified chronicity Hypertensive kidney disease with stage 3 chronic kidney disease, unspecified whether stage 3a or 3b CKD (HCC) RLS (restless legs syndrome) Restless legs syndrome (RLS) Dyslipidemia Other and unspecified hyperlipidemia GERD without esophagitis Esophageal reflux PMR (polymyalgia rheumatica) (HCC) Polymyalgia rheumatica Chronic kidney disease (CKD) stage G3a/A2, moderately decreased glomerular filtration rate (GFR) between 45-59 mL/min/1.73 square meter and albuminuria creatinine ratio between 30-299 mg/g (HCC) Chronic kidney disease, Stage III (moderate) Allergy to iodine- Primary Other drug allergy documented in this encounter [facility] note* Diagnosis Pre-operative examination- Primary Preoperative examination, unspecified Type 2 diabetes mellitus without complication, with long-term current use of insulin (HCC) Class 1 obesity due to excess calories with body mass index (BMI) of 32.0 to 32.9 in adult, unspecified whether serious comorbidity present Fatty liver Other chronic nonalcoholic liver disease Situational anxiety Other anxiety states Gout involving toe of right foot, unspecified cause, unspecified chronicity Hypertensive kidney disease with stage 3 chronic kidney disease, unspecified whether stage 3a or 3b CKD (HCC) RLS (restless legs syndrome) Restless legs syndrome (RLS) Dyslipidemia Other and unspecified hyperlipidemia GERD without esophagitis Esophageal reflux PMR (polymyalgia rheumatica) (HCC) Polymyalgia rheumatica Chronic kidney disease (CKD) stage G3a/A2, moderately decreased glomerular filtration rate (GFR) between 45-59 mL/min/1.73 square meter and albuminuria creatinine ratio between 30-299 mg/g (HCC) Chronic kidney disease, Stage III (moderate) Type 2 diabetes mellitus with stage 3 chronic kidney disease, with long-term current use of insulin, unspecified whether stage 3a or 3b CKD (HCC)- Primary Encounter for screening mammogram for malignant neoplasm of breast Other screening mammogram Anemia, unspecified type External hemorrhoids External hemorrhoids without mention of complication Acquired hypothyroidism Unspecified hypothyroidism Gastrointestinal hemorrhage with melena Spleen enlarged Splenomegaly Positive fecal occult blood test Nonspecific abnormal finding in stool contents Dyslipidemia Other and unspecified hyperlipidemia Mixed hyperlipidemia Essential hypertension, benign documented in this encounter [facility] note* Diagnosis Pre-operative examination- Primary Preoperative examination, unspecified Type 2 diabetes mellitus without complication, with long-term current use of insulin (HCC) Class 1 obesity due to excess calories with body mass index (BMI) of 32.0 to 32.9 in adult, unspecified whether serious comorbidity present Fatty liver Other chronic nonalcoholic liver disease Situational anxiety Other anxiety states Gout involving toe of right foot, unspecified cause, unspecified chronicity Hypertensive kidney disease with stage 3 chronic kidney disease, unspecified whether stage 3a or 3b CKD (HCC) RLS (restless legs syndrome) Restless legs syndrome (RLS) Dyslipidemia Other and unspecified hyperlipidemia GERD without esophagitis Esophageal reflux PMR (polymyalgia rheumatica) (HCC) Polymyalgia rheumatica Chronic kidney disease (CKD) stage G3a/A2, moderately decreased glomerular filtration rate (GFR) between 45-59 mL/min/1.73 square meter and albuminuria creatinine ratio between 30-299 mg/g (HCC) Chronic kidney disease, Stage III (moderate) Type 2 diabetes mellitus with stage 3 chronic kidney disease, with long-term current use of insulin, unspecified whether stage 3a or 3b CKD (HCC) [facility] Diagnosis Pre-operative examination- Primary Preoperative examination, unspecified Type 2 diabetes mellitus without complication, with long-term current use of insulin ([facility]) Class 1 obesity due to excess calories with body mass index (BMI) of 32.0 to 32.9 in adult, unspecified whether serious comorbidity present Fatty liver Other chronic nonalcoholic liver disease Situational anxiety Other anxiety states Gout involving toe of right foot, unspecified cause, unspecified chronicity Hypertensive kidney disease with stage 3 chronic kidney disease, unspecified whether stage 3a or 3b CKD (HCC) RLS (restless legs syndrome) Restless legs syndrome (RLS) Dyslipidemia Other and unspecified hyperlipidemia GERD without esophagitis Esophageal reflux PMR (polymyalgia rheumatica) (HCC) Polymyalgia rheumatica Chronic kidney disease (CKD) stage G3a/A2, moderately decreased glomerular filtration rate (GFR) between 45-59 mL/min/1.73 square meter and albuminuria creatinine ratio between 30-299 mg/g (HCC) Chronic kidney disease, Stage III (moderate) Gastrointestinal hemorrhage with melena Abdominal bloating Flatulence, eructation, and gas pain [facility]* Diagnosis Pre-operative examination- Primary Preoperative examination, unspecified Type 2 diabetes mellitus without complication, with long-term current use of insulin (HCC) Class 1 obesity due to excess calories with body mass index (BMI) of 32.0 to 32.9 in adult, unspecified whether serious comorbidity present Fatty liver Other chronic nonalcoholic liver disease Situational anxiety Other anxiety states Gout involving toe of right foot, unspecified cause, unspecified chronicity Hypertensive kidney disease with stage 3 chronic kidney disease, unspecified whether stage 3a or 3b CKD (HCC) RLS (restless legs syndrome) Restless legs syndrome (RLS) Dyslipidemia Other and unspecified hyperlipidemia GERD without esophagitis Esophageal reflux PMR (polymyalgia rheumatica) (HCC) Polymyalgia rheumatica Chronic kidney disease (CKD) stage G3a/A2, moderately decreased glomerular filtration rate (GFR) between 45-59 mL/min/1.73 square meter and albuminuria creatinine ratio between 30-299 mg/g (HCC) Chronic kidney disease, Stage III (moderate) Fatty liver- Primary Other chronic nonalcoholic liver disease Abnormal CT of the abdomen Nonspecific (abnormal) findings on radiological and other examination of abdominal area, including retroperitoneum [facility] Diagnosis Pre-operative examination- Primary Preoperative examination, unspecified Type 2 diabetes mellitus without complication, with long-term current use of insulin (HCC) Class 1 obesity due to excess calories with body mass index (BMI) of 32.0 to 32.9 in adult, unspecified whether serious comorbidity present Fatty liver Other chronic nonalcoholic liver disease Situational anxiety Other anxiety states Gout involving toe of right foot, unspecified cause, unspecified chronicity Hypertensive kidney disease with stage 3 chronic kidney disease, unspecified whether stage 3a or 3b CKD (HCC) RLS (restless legs syndrome) Restless legs syndrome (RLS) Dyslipidemia Other and unspecified hyperlipidemia GERD without esophagitis Esophageal reflux PMR (polymyalgia rheumatica) (HCC) Polymyalgia rheumatica Chronic kidney disease (CKD) stage G3a/A2, moderately decreased glomerular filtration rate (GFR) between 45-59 mL/min/1.73 square meter and albuminuria creatinine ratio between 30-299 mg/g (HCC) Chronic kidney disease, Stage III (moderate) Anemia, unspecified type External hemorrhoids External hemorrhoids without mention of complication [facility]* Diagnosis Pre-operative examination- Primary Preoperative examination, unspecified Type 2 diabetes mellitus without complication, with long-term current use of insulin (HCC) Class 1 obesity due to excess calories with body mass index (BMI) of 32.0 to 32.9 in adult, unspecified whether serious comorbidity present Fatty liver Other chronic nonalcoholic liver disease Situational anxiety Other anxiety states Gout involving toe of right foot, unspecified cause, unspecified chronicity Hypertensive kidney disease with stage 3 chronic kidney disease, unspecified whether stage 3a or 3b CKD (HCC) RLS (restless legs syndrome) Restless legs syndrome (RLS) Dyslipidemia Other and unspecified hyperlipidemia GERD without esophagitis Esophageal reflux PMR (polymyalgia rheumatica) (HCC) Polymyalgia rheumatica Chronic kidney disease (CKD) stage G3a/A2, moderately decreased glomerular filtration rate (GFR) between 45-59 mL/min/1.73 square meter and albuminuria creatinine ratio between 30-299 mg/g (HCC) Chronic kidney disease, Stage III (moderate) Allergy to iodine Other drug allergy Chronic insomnia Insomnia, unspecified [facility]* Diagnosis Pre-operative examination- Primary Preoperative examination, unspecified Type 2 diabetes mellitus without complication, with long-term current use of insulin (HCC) Class 1 obesity due to excess calories with body mass index (BMI) of 32.0 to 32.9 in adult, unspecified whether serious comorbidity present Fatty liver Other chronic nonalcoholic liver disease Situational anxiety Other anxiety states Gout involving toe of right foot, unspecified cause, unspecified chronicity Hypertensive kidney disease with stage 3 chronic kidney disease, unspecified whether stage 3a or 3b CKD (HCC) RLS (restless legs syndrome) Restless legs syndrome (RLS) Dyslipidemia Other and unspecified hyperlipidemia GERD without esophagitis Esophageal reflux PMR (polymyalgia rheumatica) (HCC) Polymyalgia rheumatica Chronic kidney disease (CKD) stage G3a/A2, moderately decreased glomerular filtration rate (GFR) between 45-59 mL/min/1.73 square meter and albuminuria creatinine ratio between 30-299 mg/g (HCC) Chronic kidney disease, Stage III (moderate) Fatty liver Other chronic nonalcoholic liver disease Abnormal CT of the abdomen Nonspecific (abnormal) findings on radiological and other examination of abdominal area, including retroperitoneum [facility]* Diagnosis Pre-operative examination- Primary Preoperative examination, unspecified Type 2 diabetes mellitus without complication, with long-term current use of insulin (HCC) Class 1 obesity due to excess calories with body mass index (BMI) of 32.0 to 32.9 in adult, unspecified whether serious comorbidity present Fatty liver Other chronic nonalcoholic liver disease Situational anxiety Other anxiety states Gout involving toe of right foot, unspecified cause, unspecified chronicity Hypertensive kidney disease with stage 3 chronic kidney disease, unspecified whether stage 3a or 3b CKD (HCC) RLS (restless legs syndrome) Restless legs syndrome (RLS) Dyslipidemia Other and unspecified hyperlipidemia GERD without esophagitis Esophageal reflux PMR (polymyalgia rheumatica) (HCC) Polymyalgia rheumatica Chronic kidney disease (CKD) stage G3a/A2, moderately decreased glomerular filtration rate (GFR) between 45-59 mL/min/1.73 square meter and albuminuria creatinine ratio between 30-299 mg/g (HCC) Chronic kidney disease, Stage III (moderate) Type 2 diabetes mellitus with stage 3 chronic kidney disease, with long-term current use of insulin, unspecified whether stage 3a or 3b CKD (HCC)- Primary documented in this encounter [facility] note* Diagnosis Pre-operative examination- Primary Preoperative examination, unspecified Type 2 diabetes mellitus without complication, with long-term current use of insulin (HCC) Class 1 obesity due to excess calories with body mass index (BMI) of 32.0 to 32.9 in adult, unspecified whether serious comorbidity present Fatty liver Other chronic nonalcoholic liver disease Situational anxiety Other anxiety states Gout involving toe of right foot, unspecified cause, unspecified chronicity Hypertensive kidney disease with stage 3 chronic kidney disease, unspecified whether stage 3a or 3b CKD (HCC) RLS (restless legs syndrome) Restless legs syndrome (RLS) Dyslipidemia Other and unspecified hyperlipidemia GERD without esophagitis Esophageal reflux PMR (polymyalgia rheumatica) (HCC) Polymyalgia rheumatica Chronic kidney disease (CKD) stage G3a/A2, moderately decreased glomerular filtration rate (GFR) between 45-59 mL/min/1.73 square meter and albuminuria creatinine ratio between 30-299 mg/g (HCC) Chronic kidney disease, Stage III (moderate) Cirrhosis of liver without ascites, unspecified hepatic cirrhosis type (HCC)- Primary Abnormal liver ultrasound Nonspecific (abnormal) findings on radiological and other examination of biliary tract documented in this encounter [facility] note* Diagnosis Pre-operative examination- Primary Preoperative examination, unspecified Type 2 diabetes mellitus without complication, with long-term current use of insulin (HCC) Class 1 obesity due to excess calories with body mass index (BMI) of 32.0 to 32.9 in adult, unspecified whether serious comorbidity present Fatty liver Other chronic nonalcoholic liver disease Situational anxiety Other anxiety states Gout involving toe of right foot, unspecified cause, unspecified chronicity Hypertensive kidney disease with stage 3 chronic kidney disease, unspecified whether stage 3a or 3b CKD (HCC) RLS (restless legs syndrome) Restless legs syndrome (RLS) Dyslipidemia Other and unspecified hyperlipidemia GERD without esophagitis Esophageal reflux PMR (polymyalgia rheumatica) (HCC) Polymyalgia rheumatica Chronic kidney disease (CKD) stage G3a/A2, moderately decreased glomerular filtration rate (GFR) between 45-59 mL/min/1.73 square meter and albuminuria creatinine ratio between 30-299 mg/g (HCC) Chronic kidney disease, Stage III (moderate) Chronic insomnia Insomnia, unspecified [facility]* Diagnosis Pre-operative examination- Primary Preoperative examination, unspecified Type 2 diabetes mellitus without complication, with long-term current use of insulin ([facility]) Class 1 obesity due to excess calories with body mass index (BMI) of 32.0 to 32.9 in adult, unspecified whether serious comorbidity present Fatty liver Other chronic nonalcoholic liver disease Situational anxiety Other anxiety states Gout involving toe of right foot, unspecified cause, unspecified chronicity Hypertensive kidney disease with stage 3 chronic kidney disease, unspecified whether stage 3a or 3b CKD (HCC) RLS (restless legs syndrome) Restless legs syndrome (RLS) Dyslipidemia Other and unspecified hyperlipidemia GERD without esophagitis Esophageal reflux PMR (polymyalgia rheumatica) (HCC) Polymyalgia rheumatica Chronic kidney disease (CKD) stage G3a/A2, moderately decreased glomerular filtration rate (GFR) between 45-59 mL/min/1.73 square meter and albuminuria creatinine ratio between 30-299 mg/g (HCC) Chronic kidney disease, Stage III (moderate) Hypertension, unspecified type [facility]* Diagnosis Pre-operative examination- Primary Preoperative examination, unspecified Type 2 diabetes mellitus without complication, with long-term current use of insulin ([facility]) Class 1 obesity due to excess calories with body mass index (BMI) of 32.0 to 32.9 in adult, unspecified whether serious comorbidity present Fatty liver Other chronic nonalcoholic liver disease Situational anxiety Other anxiety states Gout involving toe of right foot, unspecified cause, unspecified chronicity Hypertensive kidney disease with stage 3 chronic kidney disease, unspecified whether stage 3a or 3b CKD (HCC) RLS (restless legs syndrome) Restless legs syndrome (RLS) Dyslipidemia Other and unspecified hyperlipidemia GERD without esophagitis Esophageal reflux PMR (polymyalgia rheumatica) (HCC) Polymyalgia rheumatica Chronic kidney disease (CKD) stage G3a/A2, moderately decreased glomerular filtration rate (GFR) between 45-59 mL/min/1.73 square meter and albuminuria creatinine ratio between 30-299 mg/g (HCC) Chronic kidney disease, Stage III (moderate) Type 2 diabetes mellitus with stage 3 chronic kidney disease, with long-term current use of insulin, unspecified whether stage 3a or 3b CKD (HCC)- Primary [facility]* Diagnosis Pre-operative examination- Primary Preoperative examination, unspecified Type 2 diabetes mellitus without complication, with long-term current use of insulin ([facility]) Class 1 obesity due to excess calories with body mass index (BMI) of 32.0 to 32.9 in adult, unspecified whether serious comorbidity present Fatty liver Other chronic nonalcoholic liver disease Situational anxiety Other anxiety states Gout involving toe of right foot, unspecified cause, unspecified chronicity Hypertensive kidney disease with stage 3 chronic kidney disease, unspecified whether stage 3a or 3b CKD (HCC) RLS (restless legs syndrome) Restless legs syndrome (RLS) Dyslipidemia Other and unspecified hyperlipidemia GERD without esophagitis Esophageal reflux PMR (polymyalgia rheumatica) (HCC) Polymyalgia rheumatica Chronic kidney disease (CKD) stage G3a/A2, moderately decreased glomerular filtration rate (GFR) between 45-59 mL/min/1.73 square meter and albuminuria creatinine ratio between 30-299 mg/g (HCC) Chronic kidney disease, Stage III (moderate) Acquired hypothyroidism Unspecified hypothyroidism [facility]* Diagnosis Pre-operative examination- Primary Preoperative examination, unspecified Type 2 diabetes mellitus without complication, with long-term current use of insulin ([facility]) Class 1 obesity due to excess calories with body mass index (BMI) of 32.0 to 32.9 in adult, unspecified whether serious comorbidity present Fatty liver Other chronic nonalcoholic liver disease Situational anxiety Other anxiety states Gout involving toe of right foot, unspecified cause, unspecified chronicity Hypertensive kidney disease with stage 3 chronic kidney disease, unspecified whether stage 3a or 3b CKD (HCC) RLS (restless legs syndrome) Restless legs syndrome (RLS) Dyslipidemia Other and unspecified hyperlipidemia GERD without esophagitis Esophageal reflux PMR (polymyalgia rheumatica) (HCC) Polymyalgia rheumatica Chronic kidney disease (CKD) stage G3a/A2, moderately decreased glomerular filtration rate (GFR) between 45-59 mL/min/1.73 square meter and albuminuria creatinine ratio between 30-299 mg/g (HCC) Chronic kidney disease, Stage III (moderate) Urinary frequency- Primary Burning with urination Dysuria Proteinuria, unspecified type Chronic insomnia Insomnia, unspecified Snoring Other dyspnea and respiratory abnormality Drooling Disturbance of salivary secretion Daytime hypersomnia Fatty liver Other chronic nonalcoholic liver disease Iron 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, unspecified iron 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 type Acquired hypothyroidism Unspecified hypothyroidism Occult blood in stools Nonspecific abnormal finding in stool contents [facility]* Diagnosis Pre-operative examination- Primary Preoperative examination, unspecified Type 2 diabetes mellitus without complication, with long-term current use of insulin ([facility]) Class 1 obesity due to excess calories with body mass index (BMI) of 32.0 to 32.9 in adult, unspecified whether serious comorbidity present Fatty liver Other chronic nonalcoholic liver disease Situational anxiety Other anxiety states Gout involving toe of right foot, unspecified cause, unspecified chronicity Hypertensive kidney disease with stage 3 chronic kidney disease, unspecified whether stage 3a or 3b CKD (HCC) RLS (restless legs syndrome) Restless legs syndrome (RLS) Dyslipidemia Other and unspecified hyperlipidemia GERD without esophagitis Esophageal reflux PMR (polymyalgia rheumatica) (HCC) Polymyalgia rheumatica Chronic kidney disease (CKD) stage G3a/A2, moderately decreased glomerular filtration rate (GFR) between 45-59 mL/min/1.73 square meter and albuminuria creatinine ratio between 30-299 mg/g ([facility]) Chronic kidney disease, Stage III (moderate) Chronic insomnia Insomnia, unspecified [facility]* Diagnosis Pre-operative examination- Primary Preoperative examination, unspecified Type 2 diabetes mellitus without complication, with long-term current use of insulin ([facility]) Class 1 obesity due to excess calories with body mass index (BMI) of 32.0 to 32.9 in adult, unspecified whether serious comorbidity present Fatty liver Other chronic nonalcoholic liver disease Situational anxiety Other anxiety states Gout involving toe of right foot, unspecified cause, unspecified chronicity Hypertensive kidney disease with stage 3 chronic kidney disease, unspecified whether stage 3a or 3b CKD (HCC) RLS (restless legs syndrome) Restless legs syndrome (RLS) Dyslipidemia Other and unspecified hyperlipidemia GERD without esophagitis Esophageal reflux PMR (polymyalgia rheumatica) (HCC) Polymyalgia rheumatica Chronic kidney disease (CKD) stage G3a/A2, moderately decreased glomerular filtration rate (GFR) between 45-59 mL/min/1.73 square meter and albuminuria creatinine ratio between 30-299 mg/g (HCC) Chronic kidney disease, Stage III (moderate) Occult blood in stools- Primary Nonspecific abnormal finding in stool contents Screening for colon cancer Special screening for malignant neoplasms, colon [facility]* Diagnosis Pre-operative examination- Primary Preoperative examination, unspecified Type 2 diabetes mellitus without complication, with long-term current use of insulin (HCC) Class 1 obesity due to excess calories with body mass index (BMI) of 32.0 to 32.9 in adult, unspecified whether serious comorbidity present Fatty liver Other chronic nonalcoholic liver disease Situational anxiety Other anxiety states Gout involving toe of right foot, unspecified cause, unspecified chronicity Hypertensive kidney disease with stage 3 chronic kidney disease, unspecified whether stage 3a or 3b CKD (HCC) RLS (restless legs syndrome) Restless legs syndrome (RLS) Dyslipidemia Other and unspecified hyperlipidemia GERD without esophagitis Esophageal reflux PMR (polymyalgia rheumatica) (HCC) Polymyalgia rheumatica Chronic kidney disease (CKD) stage G3a/A2, moderately decreased glomerular filtration rate (GFR) between 45-59 mL/min/1.73 square meter and albuminuria creatinine ratio between 30-299 mg/g (HCC) Chronic kidney disease, Stage III (moderate) Cirrhosis of liver without ascites, unspecified hepatic cirrhosis type (HCC) Abnormal liver ultrasound Nonspecific (abnormal) findings on radiological and other examination of biliary tract Chronic insomnia Insomnia, unspecified Snoring Other dyspnea and respiratory abnormality Drooling Disturbance of salivary secretion Daytime hypersomnia [facility]* Diagnosis Pre-operative examination- Primary Preoperative examination, unspecified Type 2 diabetes mellitus without complication, with long-term current use of insulin (HCC) Class 1 obesity due to excess calories with body mass index (BMI) of 32.0 to 32.9 in adult, unspecified whether serious comorbidity present Fatty liver Other chronic nonalcoholic liver disease Situational anxiety Other anxiety states Gout involving toe of right foot, unspecified cause, unspecified chronicity Hypertensive kidney disease with stage 3 chronic kidney disease, unspecified whether stage 3a or 3b CKD (HCC) RLS (restless legs syndrome) Restless legs syndrome (RLS) Dyslipidemia Other and unspecified hyperlipidemia GERD without esophagitis Esophageal reflux PMR (polymyalgia rheumatica) (HCC) Polymyalgia rheumatica Chronic kidney disease (CKD) stage G3a/A2, moderately decreased glomerular filtration rate (GFR) between 45-59 mL/min/1.73 square meter and albuminuria creatinine ratio between 30-299 mg/g (HCC) Chronic kidney disease, Stage III (moderate) Chronic insomnia Insomnia, unspecified Chronic insomnia Insomnia, unspecified Snoring Other dyspnea and respiratory abnormality Drooling Disturbance of salivary secretion Daytime hypersomnia [facility]* Diagnosis Pre-operative examination- Primary Preoperative examination, unspecified Type 2 diabetes mellitus without complication, with long-term current use of insulin (HCC) Class 1 obesity due to excess calories with body mass index (BMI) of 32.0 to 32.9 in adult, unspecified whether serious comorbidity present Fatty liver Other chronic nonalcoholic liver disease Situational anxiety Other anxiety states Gout involving toe of right foot, unspecified cause, unspecified chronicity Hypertensive kidney disease with stage 3 chronic kidney disease, unspecified whether stage 3a or 3b CKD (HCC) RLS (restless legs syndrome) Restless legs syndrome (RLS) Dyslipidemia Other and unspecified hyperlipidemia GERD without esophagitis Esophageal reflux PMR (polymyalgia rheumatica) (HCC) Polymyalgia rheumatica Chronic kidney disease (CKD) stage G3a/A2, moderately decreased glomerular filtration rate (GFR) between 45-59 mL/min/1.73 square meter and albuminuria creatinine ratio between 30-299 mg/g (HCC) Chronic kidney disease, Stage III (moderate) Encounter for screening mammogram for malignant neoplasm of breast Other screening mammogram [facility] noteNo assessment information availableWKet[facility] Work Phone: Evaluation note* Diagnosis Pre-operative examination- Primary Preoperative examination, unspecified Type 2 diabetes mellitus without complication, with long-term current use of insulin (HCC) Class 1 obesity due to excess calories with body mass index (BMI) of 32.0 to 32.9 in adult, unspecified whether serious comorbidity present Fatty liver Other chronic nonalcoholic liver disease Situational anxiety Other anxiety states Gout involving toe of right foot, unspecified cause, unspecified chronicity Hypertensive kidney disease with stage 3 chronic kidney disease, unspecified whether stage 3a or 3b CKD (HCC) RLS (restless legs syndrome) Restless legs syndrome (RLS) Dyslipidemia Other and unspecified hyperlipidemia GERD without esophagitis Esophageal reflux PMR (polymyalgia rheumatica) (HCC) Polymyalgia rheumatica Chronic kidney disease (CKD) stage G3a/A2, moderately decreased glomerular filtration rate (GFR) between 45-59 mL/min/1.73 square meter and albuminuria creatinine ratio between 30-299 mg/g (HCC) Chronic kidney disease, Stage III (moderate) Chronic insomnia Insomnia, unspecified documented in this encounter [facility] note* Diagnosis Pre-operative examination- Primary Preoperative examination, unspecified Type 2 diabetes mellitus without complication, with long-term current use of insulin ([facility]) Class 1 obesity due to excess calories with body mass index (BMI) of 32.0 to 32.9 in adult, unspecified whether serious comorbidity present Fatty liver Other chronic nonalcoholic liver disease Situational anxiety Other anxiety states Gout involving toe of right foot, unspecified cause, unspecified chronicity Hypertensive kidney disease with stage 3 chronic kidney disease, unspecified whether stage 3a or 3b CKD (HCC) RLS (restless legs syndrome) Restless legs syndrome (RLS) Dyslipidemia Other and unspecified hyperlipidemia GERD without esophagitis Esophageal reflux PMR (polymyalgia rheumatica) (HCC) Polymyalgia rheumatica Chronic kidney disease (CKD) stage G3a/A2, moderately decreased glomerular filtration rate (GFR) between 45-59 mL/min/1.73 square meter and albuminuria creatinine ratio between 30-299 mg/g (HCC) Chronic kidney disease, Stage III (moderate) Acquired hypothyroidism Unspecified hypothyroidism documented in this encounter [facility] note* Diagnosis Pre-operative examination- Primary Preoperative examination, unspecified Type 2 diabetes mellitus without complication, with long-term current use of insulin ([facility]) Class 1 obesity due to excess calories with body mass index (BMI) of 32.0 to 32.9 in adult, unspecified whether serious comorbidity present Fatty liver Other chronic nonalcoholic liver disease Situational anxiety Other anxiety states Gout involving toe of right foot, unspecified cause, unspecified chronicity Hypertensive kidney disease with stage 3 chronic kidney disease, unspecified whether stage 3a or 3b CKD (HCC) RLS (restless legs syndrome) Restless legs syndrome (RLS) Dyslipidemia Other and unspecified hyperlipidemia GERD without esophagitis Esophageal reflux PMR (polymyalgia rheumatica) (HCC) Polymyalgia rheumatica Chronic kidney disease (CKD) stage G3a/A2, moderately decreased glomerular filtration rate (GFR) between 45-59 mL/min/1.73 square meter and albuminuria creatinine ratio between 30-299 mg/g (HCC) Chronic kidney disease, Stage III (moderate) Iron 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, unspecified iron 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 type [facility] Diagnosis Pre-operative examination- Primary Preoperative examination, unspecified Type 2 diabetes mellitus without complication, with long-term current use of insulin (HCC) Class 1 obesity due to excess calories with body mass index (BMI) of 32.0 to 32.9 in adult, unspecified whether serious comorbidity present Fatty liver Other chronic nonalcoholic liver disease Situational anxiety Other anxiety states Gout involving toe of right foot, unspecified cause, unspecified chronicity Hypertensive kidney disease with stage 3 chronic kidney disease, unspecified whether stage 3a or 3b CKD (HCC) RLS (restless legs syndrome) Restless legs syndrome (RLS) Dyslipidemia Other and unspecified hyperlipidemia GERD without esophagitis Esophageal reflux PMR (polymyalgia rheumatica) (HCC) Polymyalgia rheumatica Chronic kidney disease (CKD) stage G3a/A2, moderately decreased glomerular filtration rate (GFR) between 45-59 mL/min/1.73 square meter and albuminuria creatinine ratio between 30-299 mg/g (HCC) Chronic kidney disease, Stage III (moderate) Cirrhosis of liver without ascites, unspecified hepatic cirrhosis type (HCC)- Primary Iron 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, unspecified iron 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 type Type 2 diabetes mellitus with stage 3a chronic kidney disease, with long-term current use of insulin (HCC) Chronic insomnia Insomnia, unspecified Urinary frequency Stress incontinence Female stress incontinence Nocturia Fatty liver Other chronic nonalcoholic liver disease Hypertensive kidney disease with stage 3a chronic kidney disease (HCC) Dyslipidemia Other and unspecified hyperlipidemia [facility] Diagnosis Pre-operative examination- Primary Preoperative examination, unspecified Type 2 diabetes mellitus without complication, with long-term current use of insulin (HCC) Class 1 obesity due to excess calories with body mass index (BMI) of 32.0 to 32.9 in adult, unspecified whether serious comorbidity present Fatty liver Other chronic nonalcoholic liver disease Situational anxiety Other anxiety states Gout involving toe of right foot, unspecified cause, unspecified chronicity Hypertensive kidney disease with stage 3 chronic kidney disease, unspecified whether stage 3a or 3b CKD (HCC) RLS (restless legs syndrome) Restless legs syndrome (RLS) Dyslipidemia Other and unspecified hyperlipidemia GERD without esophagitis Esophageal reflux PMR (polymyalgia rheumatica) (HCC) Polymyalgia rheumatica Chronic kidney disease (CKD) stage G3a/A2, moderately decreased glomerular filtration rate (GFR) between 45-59 mL/min/1.73 square meter and albuminuria creatinine ratio between 30-299 mg/g (HCC) Chronic kidney disease, Stage III (moderate) OPENED IN ERROR- Primary To allow closing an encounter opened in error (used in SmartSet) documented in this encounter [facility] note* Diagnosis Pre-operative examination- Primary Preoperative examination, unspecified Type 2 diabetes mellitus without complication, with long-term current use of insulin (HCC) Class 1 obesity due to excess calories with body mass index (BMI) of 32.0 to 32.9 in adult, unspecified whether serious comorbidity present Fatty liver Other chronic nonalcoholic liver disease Situational anxiety Other anxiety states Gout involving toe of right foot, unspecified cause, unspecified chronicity Hypertensive kidney disease with stage 3 chronic kidney disease, unspecified whether stage 3a or 3b CKD (HCC) RLS (restless legs syndrome) Restless legs syndrome (RLS) Dyslipidemia Other and unspecified hyperlipidemia GERD without esophagitis Esophageal reflux PMR (polymyalgia rheumatica) (HCC) Polymyalgia rheumatica Chronic kidney disease (CKD) stage G3a/A2, moderately decreased glomerular filtration rate (GFR) between 45-59 mL/min/1.73 square meter and albuminuria creatinine ratio between 30-299 mg/g (HCC) Chronic kidney disease, Stage III (moderate) Cirrhosis of liver without ascites, unspecified hepatic cirrhosis type (HCC)- Primary [facility]* Diagnosis Pre-operative examination- Primary Preoperative examination, unspecified Type 2 diabetes mellitus without complication, with long-term current use of insulin (HCC) Class 1 obesity due to excess calories with body mass index (BMI) of 32.0 to 32.9 in adult, unspecified whether serious comorbidity present Fatty liver Other chronic nonalcoholic liver disease Situational anxiety Other anxiety states Gout involving toe of right foot, unspecified cause, unspecified chronicity Hypertensive kidney disease with stage 3 chronic kidney disease, unspecified whether stage 3a or 3b CKD (HCC) RLS (restless legs syndrome) Restless legs syndrome (RLS) Dyslipidemia Other and unspecified hyperlipidemia GERD without esophagitis Esophageal reflux PMR (polymyalgia rheumatica) (HCC) Polymyalgia rheumatica Chronic kidney disease (CKD) stage G3a/A2, moderately decreased glomerular filtration rate (GFR) between 45-59 mL/min/1.73 square meter and albuminuria creatinine ratio between 30-299 mg/g (HCC) Chronic kidney disease, Stage III (moderate) Cirrhosis of liver without ascites, unspecified hepatic cirrhosis type (HCC) documented in this encounter [facility] note* Diagnosis Pre-operative examination- Primary Preoperative examination, unspecified Type 2 diabetes mellitus without complication, with long-term current use of insulin (HCC) Class 1 obesity due to excess calories with body mass index (BMI) of 32.0 to 32.9 in adult, unspecified whether serious comorbidity present Fatty liver Other chronic nonalcoholic liver disease Situational anxiety Other anxiety states Gout involving toe of right foot, unspecified cause, unspecified chronicity Hypertensive kidney disease with stage 3 chronic kidney disease, unspecified whether stage 3a or 3b CKD (HCC) RLS (restless legs syndrome) Restless legs syndrome (RLS) Dyslipidemia Other and unspecified hyperlipidemia GERD without esophagitis Esophageal reflux PMR (polymyalgia rheumatica) (HCC) Polymyalgia rheumatica Chronic kidney disease (CKD) stage G3a/A2, moderately decreased glomerular filtration rate (GFR) between 45-59 mL/min/1.73 square meter and albuminuria creatinine ratio between 30-299 mg/g (HCC) Chronic kidney disease, Stage III (moderate) Type 2 diabetes mellitus with stage 3 chronic kidney disease, with long-term current use of insulin, unspecified whether stage 3a or 3b CKD (HCC)- Primary documented in this encounter [facility] note* Diagnosis Pre-operative examination- Primary Preoperative examination, unspecified Type 2 diabetes mellitus without complication, with long-term current use of insulin (HCC) Class 1 obesity due to excess calories with body mass index (BMI) of 32.0 to 32.9 in adult, unspecified whether serious comorbidity present Fatty liver Other chronic nonalcoholic liver disease Situational anxiety Other anxiety states Gout involving toe of right foot, unspecified cause, unspecified chronicity Hypertensive kidney disease with stage 3 chronic kidney disease, unspecified whether stage 3a or 3b CKD (HCC) RLS (restless legs syndrome) Restless legs syndrome (RLS) Dyslipidemia Other and unspecified hyperlipidemia GERD without esophagitis Esophageal reflux PMR (polymyalgia rheumatica) (HCC) Polymyalgia rheumatica Chronic kidney disease (CKD) stage G3a/A2, moderately decreased glomerular filtration rate (GFR) between 45-59 mL/min/1.73 square meter and albuminuria creatinine ratio between 30-299 mg/g (HCC) Chronic kidney disease, Stage III (moderate) Acquired hypothyroidism Unspecified hypothyroidism documented in this encounter [facility] for referral (narrative)* Diagnostic Procedure Only (Routine) - Authorized Specialty Diagnoses / Procedures Referred By Contac t Referred To Contact US IMAGING Diagnoses RUQ abdominal pain Procedures US ABD RT UPPER QUADRANT US ABDOMINAL REAL TIME W/IMAGE LIMITED Mariano Pearce, DO [address] [place] [address] Us Imaging Referral ID Status Reason Start Date Expiration Date Visits Requested Visits Authorized [id number] Authorized Auto-Generat ed Referral 07/29/2022 08/28/2023 1 1 [facility] for referral (narrative)* Diagnostic Procedure Only (Routine) - Closed Specialty Diagnoses / Procedures [facility] Diagnoses RUQ abdominal pain Procedures US ABD RT UPPER QUADRANT US ABDOMINAL REAL TIME W/IMAGE LIMITED Mariano Pearce DO [address] [place] [address] Us Imaging Referral ID Status Reason Start Date Expiration Date V isits Requested Visits Authorized [id number] Closed Auto-Generate d Referral 07/29/2022 08/28/2023 1 1 [facility] for referral (narrative)* Outpatient Procedure (Routine) - Authorized Specialty Diagnoses / Procedures Referred By Contac t Referred [facility] Diagnoses Syncope, unspecified syncope type Increased frequency of headaches Headache, worsening Short-term memory loss Procedures US CAROTID ARTERIES [facility] DUPLEX SCAN EXTRACRANIAL ART COMPL BI STUDY Mariano Pearce DO [address] [place] [address] [facility] [address] [place] [address] Referral ID Status Reason Start Date Expiration Date Visits Requested Visits Authorized [id number] Authorized Auto-Generat ed Referral 01/28/2023 01/28/2024 1 1 * MRI/CT (Routine) - Authorized Specialty Diagnoses / Procedures Referred By Contac t Referred To Contact CT IMAGING Diagnoses Syncope, unspecified syncope type History of head injury Increased frequency of headaches Headache, worsening Procedures CT BRAIN WO IVC CT HEAD/BRAIN W/O CONTRAST MATERIAL Mariano Pearce DO [address] [place] [address] Ct Imaging Referral ID Status Reason Start Date Expiration Date Visits Requested Visits Authorized [id number] Authorized Auto-Generat ed Referral 01/28/2023 02/27/2024 1 1 * Outpatient Procedure (Routine) - Authorized Specialty Diagnoses / Procedures Referred By Contac t Referred To Contact [facility] Diagnoses Syncope, unspecified syncope type Procedures ECHO ECHO TTHRC R-T 2D W/WOM-MODE COMPL SPEC&COLR D Mariano Pearce DO [address] [place] [address] [facility] [address] [address] Referral ID Status Reason Start Date Expiration Date Visits Requested Visits Authorized [id number] Authorized Auto-Generat ed Referral 01/28/2023 01/28/2024 1 1 * Outpatient Procedure (Routine) - Closed Specialty Diagnoses / Procedures Referred By Contac t Referred To Contact [facility] Diagnoses Syncope, unspecified syncope type Procedures ECG COMPLETE ECG ROUTINE ECG W/LEAST 12 LDS W/I&R Mariano Pearce DO [address] [place] [address] [facility] [address] [address] Referral ID Status Reason Start Date Expiration Date V isits Requested Visits Authorized [id number] Closed Auto-Generate d Referral 01/28/2023 01/28/2024 1 1 [facility] for referral (narrative)* Diagnostic Procedure Only (Routine) - Authorized Specialty Diagnoses / Procedures Referred By Contac t Referred To Contact US IMAGING Diagnoses Change in bowel habits Right upper quadrant pain Procedures US ABD RIGHT UPPER QUADRANT US ABDOMINAL REAL TIME W/IMAGE LIMITED Vanessa Gary PA-C [address] [place] [address] Us Imaging Referral ID Status Reason Start Date Expiration Date Visits Requested Visits Authorized [id number] Authorized Auto-Generat ed Referral 04/23/2023 05/15/2024 1 1 [facility] for referral (narrative)* Outpatient Procedure (Routine) - Authorized Specialty Diagnoses / Procedures Referred By Contac t Referred To Contact [facility] Diagnoses Diarrhea, unspecified type Abdominal pain, unspecified abdominal location Change in bowel habits Procedures COLONOSCOPY DIAGNOSTIC COLONOSCOPY FLX DX W/COLLJ SPEC WHEN PFRMD Vanessa Gary PA-C [address] [place] [address] [facility] [address] [place] [address] Referral ID Status Reason Start Date Expiration Date Visits Requested Visits Authorized [id number] Authorized Auto-Generat ed Referral 04/16/2023 04/16/2024 1 1 * Outpatient Procedure (Routine) - Authorized Specialty Diagnoses / Procedures Referred By Contac t Referred To Contact [facility] Diagnoses Diarrhea, unspecified type Abdominal pain, unspecified abdominal location Change in bowel habits Procedures EGD DIAGNOSTIC ESOPHAGOGASTRODUODENOSC OPY TRANSORAL DIAGNOSTIC Vanessa Gary PA-C [address] [place] [address] [address] Referral ID Status Reason Start Date Expiration Date Visits Requested Visits Authorized [id number] Authorized Auto-Generat ed Referral 04/16/2023 04/16/2024 1 1 [facility] for referral (narrative)* Outpatient Procedure (Routine) - Closed Specialty Diagnoses / Procedures Referred By Contac t Referred To Contact [facility] Diagnoses Diarrhea, unspecified type Abdominal pain, unspecified abdominal location Change in bowel habits Procedures COLONOSCOPY DIAGNOSTIC COLONOSCOPY FLX DX W/COLLJ SPEC WHEN PFRMD Vanessa Gary PA-C [address] [place] [address] [place] [id number] Referral ID Status Reason Start Date Expiration Date V isits Requested Visits Authorized [id number] Closed Auto-Generate d Referral 04/16/2023 04/16/2024 1 1 * Outpatient Procedure (Routine) - Closed Specialty Diagnoses / Procedures Referred By Contac t Referred To Contact [facility] Diagnoses Diarrhea, unspecified type Abdominal pain, unspecified abdominal location Change in bowel habits Procedures EGD DIAGNOSTIC ESOPHAGOGASTRODUODENOSC OPY TRANSORAL DIAGNOSTIC Vanessa Gary PA-C [address] [place] [address] [place] [address] Referral ID Status Reason Start Date Expiration Date V isits Requested Visits Authorized [id number] Closed Auto-Generate d Referral 04/16/2023 04/16/2024 1 1 [facility] for referral (narrative)* Diagnostic Procedure Only (Routine) - Closed Specialty Diagnoses / Procedures Referred By Contac t Referred To Contact US IMAGING Diagnoses Change in bowel habits Right upper quadrant pain Procedures US ABD RIGHT UPPER QUADRANT US ABDOMINAL REAL TIME W/IMAGE LIMITED Vanessa Gary PA-C [address] [facility] [place] [address] [place] [address] Referral ID Status Reason Start Date Expiration Date V isits Requested Visits Authorized [id number] Closed Auto-Generate d Referral 04/23/2023 05/15/2024 1 1 [facility] for referral (narrative)* Diagnostic Procedure Only (Routine) - Closed Specialty Diagnoses / Procedures Referred By Contac t Referred To Contact [facility] Diagnoses Encounter for screening mammogram for malignant neoplasm of breast Procedures HIRAL SCREENING SCREENING MAMMOGRAPHY BI 2-VIEW BREAST INC CAD Mariano Pearce, [address] [place] [address] [facility] [address] [place] [address] Referral ID Status Reason Start Date Expiration Date V isits Requested Visits Authorized [id number] Closed Auto-Generate d Referral 02/11/2023 03/12/2024 1 1 [facility] for referral (narrative)* Diagnostic Procedure Only (Routine) - Authorized Specialty Diagnoses / Procedures Referred By Contac t Referred To Contact [facility] Diagnoses Encounter for screening mammogram for breast cancer Procedures HIRAL SCREENING SCREENING MAMMOGRAPHY BI 2-VIEW BREAST INC Demetra Galindo APRN.CNP [address] [place] [address] [facility] [address] [place] [address] Referral ID Status Reason Start Date Expiration Date Visits Requested Visits Authorized [id number] Authorized Auto-Generat ed Referral 01/15/2024 02/13/2025 1 1 [facility] for referral (narrative)* Diagnostic Procedure Only (Routine) - Authorized Specialty Diagnoses / Procedures Referred By Contac t Referred To Contact US IMAGING Diagnoses Anemia, unspecified type Abdominal bloating Procedures US ABDOMEN COMPLETE US ABDOMINAL REAL TIME W/IMAGE DOCUMENTATION Naya Ruvalcaba APRN.[employer] [address] [place] [address] [place] [address] Referral ID Status Reason Start Date Expiration Date Visits Requested Visits Authorized [id number] Authorized Auto-Generat ed Referral 4 11/06/2025 1 1 [facility] Diagnostic Procedure Only (Routine) - New Request Specialty Diagnoses / Procedures Referred By Contac t Referred To Contact [facility] Diagnoses Encounter for screening mammogram for malignant neoplasm of breast Procedures HIRAL SCREENING W LUCY SCREENING DIGITAL BREAST TOMOSYNTHESIS BI SCREENING MAMMOGRAPHY BI 2-VIEW BREAST INC CAD Mariano Pearce, DO [address] [place] [address] [facility] [address] [facility] [place] [address] Referral ID Status Reason Start Date Expiration Date Visits Requested Visits Authorized [id number] New Request Auto-Generat ed Referral 4 12/03/2025 1 1 * Consult, Test, Treat (Routine) - Authorized Specialty Diagnoses / Procedures Referred By Contac t Referred To Contact General Surgery Diagnoses Anemia, unspecified type External hemorrhoids Procedures CONSULT TO GENERAL SURGERY OFFICE/OUTPATIENT NEW HIGH MDM 60 MINUTES Mariano Pearce DO [address] [place] [address] Referral ID Status Reason Start Date Expiration Date Visits Requested Visits Authorized [id number] Authorized PCP Requested Referral 4 11/03/2025 1 1 * Diagnostic Procedure Only (Routine) - Authorized Specialty Diagnoses / Procedures Referred By Contac t Referred To Contact [facility] Diagnoses Encounter for screening mammogram for malignant neoplasm of breast Procedures HIRAL SCREENING SCREENING MAMMOGRAPHY BI 2-VIEW BREAST INC CAD Mariano Pearce DO [address] [place] [address] Br Imaging [address] [place] [address] Referral ID Status Reason Start Date Expiration Date Visits Requested Visits Authorized [id number] Authorized Auto-Generat ed Referral 12/03/2025 1 1 [facility] for referral (narrative)* Diagnostic Procedure Only (Routine) - Authorized Specialty Diagnoses / Procedures Referred By Contac t Referred To Contact US IMAGING Diagnoses Fatty liver Abnormal CT of the abdomen Procedures US ABD RIGHT UPPER QUADRANT US ABDOMINAL REAL TIME W/IMAGE LIMITED Mariano Pearce, DO [address] [place] [address] Us Imaging [facility] Referral ID Status Reason Start Date Expiration Date Visits Requested Visits Authorized [id number] Authorized Auto-Generat ed Referral 11/22/2024 12/22/2025 1 1 [facility] for referral (narrative)No reason for referral [facility]: Reason for visit Narrative* Diagnostic Procedure Only (Routine) - Closed Specialty Diagnoses / Procedures Referred By Ladonna t Referred To Contact [facility] Diagnoses Visit for screening mammogram Procedures HIRAL SCREENING SCREENING MAMMOGRAPHY BI 2-VIEW BREAST INC CAD Mariano Pearce, DO [address] [place] [address] Br Imaging [address] [place] [address] Referral ID Status Reason Start Date Expiration Date V isits Requested Visits Authorized [id number] Closed Auto-Generate d Referral 04/17/2022 05/17/2023 1 1 [facility] for visit Narrative* Outpatient Procedure (Routine) - Closed Specialty Diagnoses / Procedures Referred By Contac t Referred To Contact [facility] Diagnoses Diarrhea, unspecified type Abdominal pain, unspecified abdominal location Change in bowel habits Procedures COLONOSCOPY DIAGNOSTIC COLONOSCOPY FLX DX W/COLLJ SPEC WHEN PFRMD Vanessa Gary PA-C [address] [place] [address] [facility] [address] [place] [address] Referral ID Status Reason Start Date Expiration Date V isits Requested Visits Authorized [id number] Closed Auto-Generate d Referral 04/16/2023 04/16/2024 1 1 [facility] for visit Narrative* Diagnostic Procedure Only (Routine) - Closed Specialty Diagnoses / Procedures Referred By Contac t Referred To Contact [facility] Diagnoses Encounter for screening mammogram for malignant neoplasm of breast Procedures HIRAL SCREENING SCREENING MAMMOGRAPHY BI 2-VIEW BREAST INC CAD Mariano Pearce, DO [address] [place] [address] Br Imaging [address] [place] [id number] Referral ID Status Reason Start Date Expiration Date V isits Requested Visits Authorized [id number] Closed Auto-Generate d Referral 02/11/2023 03/12/2024 1 1 [facility] for visit Narrative* Diagnostic Procedure Only (Routine) - Closed Specialty Diagnoses / Procedures Referred By Contac t Referred To Contact [facility] IM[facility] Diagnoses Encounter for screening mammogram for breast cancer Procedures HIRAL SCREENING SCREENING MAMMOGRAPHY BI 2-VIEW BREAST INC CAD Demetra Navarrete APRN.[employer] [address] [place] [address] Br Imaging [address] [place] [address] Referral ID Status Reason Start Date Expiration Date V isits Requested Visits Authorized [id number] Closed Auto-Generate d Referral 01/15/2024 02/13/2025 1 1 [facility] for visit Narrative* Diagnostic Procedure Only (Routine) - Closed Specialty Diagnoses / Procedures Referred By Contac t Referred To Contact [facility] Diagnoses Encounter for screening mammogram for malignant neoplasm of breast Procedures HIRAL SCREENING SCREENING MAMMOGRAPHY BI 2-VIEW BREAST INC CAD Mariano Pearce L, DO [address] [place] [address] Phone: tel: fax: [facility] [address] [place] [address] Referral ID Status Reason Start Date Expiration Date V isits Requested Visits Authorized [id number] Closed Auto-Generate d Referral 11/03/2024 12/03/2025 1 1 [facility] N[facility]* MRI/CT (Routine) - Closed Specialty Diagnoses / Procedures Referred By Ladonna kitchen Referred To Contact [facility] Diagnoses Cirrhosis of liver without ascites, unspecified hepatic cirrhosis type (HCC) Procedures MRI PANC/KANDI WO/W IVCON MRI ABDOMEN W/O & W/CONTRAST MATERIAL Blanca King, RENITA.WARP DYEING TENDER [address] [address] Phone: tel: fax: [place] [id number] Referral ID Status Reason Start Date Expiration Date V isits Requested Visits Authorized [id number] Closed Auto-Generate d Referral 05/27/2025 06/26/2026 1 1 [facility] Summary Purpose Family History No Family History Records Found Relationship Condition Age at Onset Recorded Date/T dinesh Not Specified Diabetes mellitus Unknown Advance Directives No Advanced Directives Records FoundDocuments on File Type Date Recorded 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 Expl 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 Advance Directive(s) 10/05/2020 9:26 AM Advance Directive(s) 09/26/2020 9:56 AM Advance Directive(s) 03/19/2018 8:30 AM Documents on File Type Date Recorded 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 Advance Directive(s) 10/05/2020 9:26 AM Advance Directive(s) 09/26/2020 9:56 AM Advance Directive(s) 03/19/2018 8:30 AM Advance Directive Response Recorded Date/ Time Advance Directives Yes May 22 3:23am Reason for Referral Specialty Diagnoses / Procedures Referred By Ladonna kitchen Referred To Contact Neurology Diagnoses History of head injury Increased frequency of headaches Headache, worsening Abnormal CT of brain Procedures CONSULT TO NEUROLOGY OFFICE/OUTPATIENT NEW HIGH MDM 60-74 MINUTES Mariano Pearce L, [address] [place] [address] Referral ID Status Reason Start Date Expiration Date Visits Requested Visits Authorized [id number] Authorized PCP Requested Referral 02/11/2023 02/11/2024 1 1 Specialty Diagnoses / Procedures Referred By Ladonna kitchen Referred To Contact [facility] Diagnoses Encounter for screening mammogram for malignant neoplasm of breast Procedures HIRAL SCREENING SCREENING MAMMOGRAPHY BI 2-VIEW BREAST INC CAD Mariano Pearce, DO [address] [place] [address] [facility] [address] [place] [address] Referral ID Status Reason Start Date Expiration Date Visits Requested Visits Authorized [id number] Authorized Auto-Generat ed Referral 02/11/2023 03/12/2024 1 1 Specialty Diagnoses / Procedures Referred By Contac t Referred To Contact CT IMAGING Diagnoses Syncope, unspecified syncope type History of head injury Increased frequency of headaches Headache, worsening Procedures CT BRAIN WO IVCON CT HEAD/BRAIN W/O CONTRAST MATERIAL Mariano Pearce, DO [address] [place] [address] [place] [address] Referral ID Status Reason Start Date Expiration Date V isits Requested Visits Authorized [id number] Closed Auto-Generate d Referral 01/28/2023 02/27/2024 1 1 Specialty Diagnoses / Procedures Referred By Contac t Referred To Contact Hematology Diagnoses Other iron 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 Procedures CONSULT TO HEMATOLOGY OFFICE/OUTPATIENT NEW HIGH MDM 60 MINUTES Mariano Pearce, DO [address] [place] [address] Referral ID Status Reason Start Date Expiration Date Visits Requested Visits Authorized [id number] Authorized PCP Requested Referral 04/28/2024 04/28/2025 1 1 Specialty Diagnoses / Procedures Referred By Contac t Referred To Contact CT IMAGING Diagnoses Gastrointestinal hemorrhage with melena Abdominal bloating Procedures CT ABD/PEL W IVCON CT ABD & PELVIS W/CONTRAST Naya Ruvalcaba, CUSTOMER CARE REPRESENTATIVE.WARP DYEING TENDER [address] [place] [address] [place] [address] Referral ID Status Reason Start Date Expiration Date Visits Requested Visits Authorized [id number] Authorized Auto-Generat ed Referral 11/10/2025 1 1 Specialty Diagnoses / Procedures Referred By Contac t Referred To Contact Gastroenterology Diagnoses Positive fecal occult blood test Anemia, unspecified type Abdominal bloating Procedures CONSULT TO GASTROENTEROLOGY OFFICE/OUTPATIENT NEW HIGH MDM 60 MINUTES Naya Ruvalcaba APRN.WARP DYEING TENDER [address] [place] [address] Referral ID Status Reason Start Date Expiration Date Visits Requested Visits Authorized [id number] Authorized PCP Requested Referral 10/11/2025 1 1 Specialty Diagnoses / Procedures Referred By Contac t Referred To Contact Diagnoses Cirrhosis of liver without ascites, unspecified hepatic cirrhosis type (HCC) Abnormal liver ultrasound Procedures CONSULT TO HEPATOLOGY OFFICE/OUTPATIENT [facility] 60 MINUTES Mariano Pearce, DO [address] [place] [address] Referral ID Status Reason Start Date Expiration Date Visits Requested Visits Authorized [id number] Authorized PCP Requested Referral 12/01/2024 12/01/2025 1 1 Medications Administered Section Inactive Administered Medications - up to 3 most recent administrations Medication Order MAR Action Action Date Dose Rate Site lactated ringers iv infusion 30 mL/hr, INTRAVENOUS, CONTINUOUS, Starting on Fri07/04/23 at 0930, Until Fri07/04/23 at 1101, Preprocedure New Bag/Syringe/Bottle 07/04/2023 9:49 AM EDT 30 mL/hr 30 mL/hr Chief Complaint and Reason for Visit Chief Complaint Admit Date CHRONIC INSOMNIA, DAYTIME HYPERSOMNIA, O SA March 22, 2025 7:40pm Additional Source Comments INFORMATION SOURCE (unrecogn ized section and content) DATE CREATED AUTHOR 05/06/2018 [facility] DATE CREATED AUTHOR AUTHOR'S ORGANIZ ATION 05/07/2018 [facility] DATE CREATED AUTHOR AUTHOR'S ORGANIZ ATION 05/07/2018 [facility] DATE CREATED AUTHOR AUTHOR'S ORGANIZ ATION 07/07/2023 [facility] DATE CREATED AUTHOR AUTHOR'S ORGANIZ ATION 05/29/2025 [facility] DATE CREATED AUTHOR AUTHOR'S ORGANIZ ATION 09/28/2025 [facility] Source Comments (unrecognize d section and content) In the event this informatio n is protected by the Federal Confidentiality of Alcohol and Drug Abuse Patient Records regulations: The Federal rules restrict any use of the information to criminally investigate or prosecute any alcohol or drug abuse patient.[facility] the event this information is protected by the Federal Confidentiality of Alcohol and Drug Abuse Patient Records regulations: The Federal rules restrict any use of the information to criminally investigate or prosecute any alcohol or drug abuse patient.[facility]In the event this information is protected by the Federal Confidentiality of Alcohol and Drug Abuse Patient Records regulations: The Federal rules restrict any use of the information to criminally investigate or prosecute any alcohol or drug abuse patient.[facility]In the event this information is protected by the Federal Confidentiality of Alcohol and Drug Abuse Patient Records regulations: The Federal rules restrict any use of the information to criminally investigate or prosecute any alcohol or drug abuse patient.[facility]In the event this information is protected by the Federal Confidentiality of Alcohol and Drug Abuse Patient Records regulations: The Federal rules restrict any use of the information to criminally investigate or prosecute any alcohol or drug abuse patient.[facility]In the event this information is protected by the Federal Confidentiality of Alcohol and Drug Abuse Patient Records regulations: The Federal rules restrict any use of the information to criminally investigate or prosecute any alcohol or drug abuse patient.[facility]In the event this information is protected by the Federal Confidentiality of Alcohol and Drug Abuse Patient Records regulations: The Federal rules restrict any use of the information to criminally investigate or prosecute any alcohol or drug abuse patient.[facility]In the event this information is protected by the Federal Confidentiality of Alcohol and Drug Abuse Patient Records regulations: The Federal rules restrict any use of the information to criminally investigate or prosecute any alcohol or drug abuse patient.[facility]In the event this information is protected by the Federal Confidentiality of Alcohol and Drug Abuse Patient Records regulations: The Federal rules restrict any use of the information to criminally investigate or prosecute any alcohol or drug abuse patient.[facility]In the event this information is protected by the Federal Confidentiality of Alcohol and Drug Abuse Patient Records regulations: The Federal rules restrict any use of the information to criminally investigate or prosecute any alcohol or drug abuse patient.[facility]In the event this information is protected by the Federal Confidentiality of Alcohol and Drug Abuse Patient Records regulations: The Federal rules restrict any use of the information to criminally investigate or prosecute any alcohol or drug abuse patient.[facility]In the event this information is protected by the Federal Confidentiality of Alcohol and Drug Abuse Patient Records regulations: The Federal rules restrict any use of the information to criminally investigate or prosecute any alcohol or drug abuse patient.[facility]In the event this information is protected by the Federal Confidentiality of Alcohol and Drug Abuse Patient Records regulations: The Federal rules restrict any use of the information to criminally investigate or prosecute any alcohol or drug abuse patient.[facility]In the event this information is protected by the Federal Confidentiality of Alcohol and Drug Abuse Patient Records regulations: The Federal rules restrict any use of the information to criminally investigate or prosecute any alcohol or drug abuse patient.[facility]In the event this information is protected by the Federal Confidentiality of Alcohol and Drug Abuse Patient Records regulations: The Federal rules restrict any use of the information to criminally investigate or prosecute any alcohol or drug abuse patient.[facility]In the event this information is protected by the Federal Confidentiality of Alcohol and Drug Abuse Patient Records regulations: The Federal rules restrict any use of the information to criminally investigate or prosecute any alcohol or drug abuse patient.[facility]In the event this information is protected by the Federal Confidentiality of Alcohol and Drug Abuse Patient Records regulations: The Federal rules restrict any use of the information to criminally investigate or prosecute any alcohol or drug abuse patient.[facility]In the event this information is protected by the Federal Confidentiality of Alcohol and Drug Abuse Patient Records regulations: The Federal rules restrict any use of the information to criminally investigate or prosecute any alcohol or drug abuse patient.[facility]In the event this information is protected by the Federal Confidentiality of Alcohol and Drug Abuse Patient Records regulations: The Federal rules restrict any use of the information to criminally investigate or prosecute any alcohol or drug abuse patient.[facility]In the event this information is protected by the Federal Confidentiality of Alcohol and Drug Abuse Patient Records regulations: The Federal rules restrict any use of the information to criminally investigate or prosecute any alcohol or drug abuse patient.[facility]In the event this information is protected by the Federal Confidentiality of Alcohol and Drug Abuse Patient Records regulations: The Federal rules restrict any use of the information to criminally investigate or prosecute any alcohol or drug abuse patient.[facility]In the event this information is protected by the Federal Confidentiality of Alcohol and Drug Abuse Patient Records regulations: The Federal rules restrict any use of the information to criminally investigate or prosecute any alcohol or drug abuse patient.[facility]In the event this information is protected by the Federal Confidentiality of Alcohol and Drug Abuse Patient Records regulations: The Federal rules restrict any use of the information to criminally investigate or prosecute any alcohol or drug abuse patient.[facility]In the event this information is protected by the Federal Confidentiality of Alcohol and Drug Abuse Patient Records regulations: The Federal rules restrict any use of the information to criminally investigate or prosecute any alcohol or drug abuse patient.[facility]In the event this information is protected by the Federal Confidentiality of Alcohol and Drug Abuse Patient Records regulations: The Federal rules restrict any use of the information to criminally investigate or prosecute any alcohol or drug abuse patient.[facility]In the event this information is protected by the Federal Confidentiality of Alcohol and Drug Abuse Patient Records regulations: The Federal rules restrict any use of the information to criminally investigate or prosecute any alcohol or drug abuse patient.[facility]In the event this information is protected by the Federal Confidentiality of Alcohol and Drug Abuse Patient Records regulations: The Federal rules restrict any use of the information to criminally investigate or prosecute any alcohol or drug abuse patient.[facility]In the event this information is protected by the Federal Confidentiality of Alcohol and Drug Abuse Patient Records regulations: The Federal rules restrict any use of the information to criminally investigate or prosecute any alcohol or drug abuse patient.[facility]In the event this information is protected by the Federal Confidentiality of Alcohol and Drug Abuse Patient Records regulations: The Federal rules restrict any use of the information to criminally investigate or prosecute any alcohol or drug abuse patient.[facility]In the event this information is protected by the Federal Confidentiality of Alcohol and Drug Abuse Patient Records regulations: The Federal rules restrict any use of the information to criminally investigate or prosecute any alcohol or drug abuse patient.[facility]In the event this information is protected by the Federal Confidentiality of Alcohol and Drug Abuse Patient Records regulations: The Federal rules restrict any use of the information to criminally investigate or prosecute any alcohol or drug abuse patient.[facility]In the event this information is protected by the Federal Confidentiality of Alcohol and Drug Abuse Patient Records regulations: The Federal rules restrict any use of the information to criminally investigate or prosecute any alcohol or drug abuse patient.[facility]In the event this information is protected by the Federal Confidentiality of Alcohol and Drug Abuse Patient Records regulations: The Federal rules restrict any use of the information to criminally investigate or prosecute any alcohol or drug abuse patient.[facility]In the event this information is protected by the Federal Confidentiality of Alcohol and Drug Abuse Patient Records regulations: The Federal rules restrict any use of the information to criminally investigate or prosecute any alcohol or drug abuse patient.[facility]In the event this information is protected by the Federal Confidentiality of Alcohol and Drug Abuse Patient Records regulations: The Federal rules restrict any use of the information to criminally investigate or prosecute any alcohol or drug abuse patient.[facility]In the event this information is protected by the Federal Confidentiality of Alcohol and Drug Abuse Patient Records regulations: The Federal rules restrict any use of the information to criminally investigate or prosecute any alcohol or drug abuse patient.[facility]In the event this information is protected by the Federal Confidentiality of Alcohol and Drug Abuse Patient Records regulations: The Federal rules restrict any use of the information to criminally investigate or prosecute any alcohol or drug abuse patient.[facility]In the event this information is protected by the Federal Confidentiality of Alcohol and Drug Abuse Patient Records regulations: The Federal rules restrict any use of the information to criminally investigate or prosecute any alcohol or drug abuse patient.[facility]In the event this information is protected by the Federal Confidentiality of Alcohol and Drug Abuse Patient Records regulations: The Federal rules restrict any use of the information to criminally investigate or prosecute any alcohol or drug abuse patient.[facility]In the event this information is protected by the Federal Confidentiality of Alcohol and Drug Abuse Patient Records regulations: The Federal rules restrict any use of the information to criminally investigate or prosecute any alcohol or drug abuse patient.[facility]In the event this information is protected by the Federal Confidentiality of Alcohol and Drug Abuse Patient Records regulations: The Federal rules restrict any use of the information to criminally investigate or prosecute any alcohol or drug abuse patient.[facility]In the event this information is protected by the Federal Confidentiality of Alcohol and Drug Abuse Patient Records regulations: The Federal rules restrict any use of the information to criminally investigate or prosecute any alcohol or drug abuse patient.[facility]In the event this information is protected by the Federal Confidentiality of Alcohol and Drug Abuse Patient Records regulations: The Federal rules restrict any use of the information to criminally investigate or prosecute any alcohol or drug abuse patient.[facility]In the event this information is protected by the Federal Confidentiality of Alcohol and Drug Abuse Patient Records regulations: The Federal rules restrict any use of the information to criminally investigate or prosecute any alcohol or drug abuse patient.[facility]In the event this information is protected by the Federal Confidentiality of Alcohol and Drug Abuse Patient Records regulations: The Federal rules restrict any use of the information to criminally investigate or prosecute any alcohol or drug abuse patient.[facility]In the event this information is protected by the Federal Confidentiality of Alcohol and Drug Abuse Patient Records regulations: The Federal rules restrict any use of the information to criminally investigate or prosecute any alcohol or drug abuse patient.[facility]In the event this information is protected by the Federal Confidentiality of Alcohol and Drug Abuse Patient Records regulations: The Federal rules restrict any use of the information to criminally investigate or prosecute any alcohol or drug abuse patient.[facility]In the event this information is protected by the Federal Confidentiality of Alcohol and Drug Abuse Patient Records regulations: The Federal rules restrict any use of the information to criminally investigate or prosecute any alcohol or drug abuse patient.[facility]In the event this information is protected by the Federal Confidentiality of Alcohol and Drug Abuse Patient Records regulations: The Federal rules restrict any use of the information to criminally investigate or prosecute any alcohol or drug abuse patient.[facility]In the event this information is protected by the Federal Confidentiality of Alcohol and Drug Abuse Patient Records regulations: The Federal rules restrict any use of the information to criminally investigate or prosecute any alcohol or drug abuse patient.[facility]In the event this information is protected by the Federal Confidentiality of Alcohol and Drug Abuse Patient Records regulations: The Federal rules restrict any use of the information to criminally investigate or prosecute any alcohol or drug abuse patient.[facility]In the event this information is protected by the Federal Confidentiality of Alcohol and Drug Abuse Patient Records regulations: The Federal rules restrict any use of the information to criminally investigate or prosecute any alcohol or drug abuse patient.[facility]In the event this information is protected by the Federal Confidentiality of Alcohol and Drug Abuse Patient Records regulations: The Federal rules restrict any use of the information to criminally investigate or prosecute any alcohol or drug abuse patient.[facility]In the event this information is protected by the Federal Confidentiality of Alcohol and Drug Abuse Patient Records regulations: The Federal rules restrict any use of the information to criminally investigate or prosecute any alcohol or drug abuse patient.[facility]In the event this information is protected by the Federal Confidentiality of Alcohol and Drug Abuse Patient Records regulations: The Federal rules restrict any use of the information to criminally investigate or prosecute any alcohol or drug abuse patient.[facility]In the event this information is protected by the Federal Confidentiality of Alcohol and Drug Abuse Patient Records regulations: The Federal rules restrict any use of the information to criminally investigate or prosecute any alcohol or drug abuse patient.[facility]In the event this information is protected by the Federal Confidentiality of Alcohol and Drug Abuse Patient Records regulations: The Federal rules restrict any use of the information to criminally investigate or prosecute any alcohol or drug abuse patient.[facility]In the event this information is protected by the Federal Confidentiality of Alcohol and Drug Abuse Patient Records regulations: The Federal rules restrict any use of the information to criminally investigate or prosecute any alcohol or drug abuse patient.[facility]In the event this information is protected by the Federal Confidentiality of Alcohol and Drug Abuse Patient Records regulations: The Federal rules restrict any use of the information to criminally investigate or prosecute any alcohol or drug abuse patient.[facility]In the event this information is protected by the Federal Confidentiality of Alcohol and Drug Abuse Patient Records regulations: The Federal rules restrict any use of the information to criminally investigate or prosecute any alcohol or drug abuse patient.[facility]In the event this information is protected by the Federal Confidentiality of Alcohol and Drug Abuse Patient Records regulations: The Federal rules restrict any use of the information to criminally investigate or prosecute any alcohol or drug abuse patient.[facility]In the event this information is protected by the Federal Confidentiality of Alcohol and Drug Abuse Patient Records regulations: The Federal rules restrict any use of the information to criminally investigate or prosecute any alcohol or drug abuse patient.[facility] EastIn the event this information is protected by the Federal Confidentiality of Alcohol and Drug Abuse Patient Records regulations: The Federal rules restrict any use of the information to criminally investigate or prosecute any alcohol or drug abuse patient.[facility] the event this information is protected by the Federal Confidentiality of Alcohol and Drug Abuse Patient Records regulations: The Federal rules restrict any use of the information to criminally investigate or prosecute any alcohol or drug abuse patient.[facility]In the event this information is protected by the Federal Confidentiality of Alcohol and Drug Abuse Patient Records regulations: The Federal rules restrict any use of the information to criminally investigate or prosecute any alcohol or drug abuse patient.[facility]In the event this information is protected by the Federal Confidentiality of Alcohol and Drug Abuse Patient Records regulations: The Federal rules restrict any use of the information to criminally investigate or prosecute any alcohol or drug abuse patient.[facility]In the event this information is protected by the Federal Confidentiality of Alcohol and Drug Abuse Patient Records regulations: The Federal rules restrict any use of the information to criminally investigate or prosecute any alcohol or drug abuse patient.[facility]In the event this information is protected by the Federal Confidentiality of Alcohol and Drug Abuse Patient Records regulations: The Federal rules restrict any use of the information to criminally investigate or prosecute any alcohol or drug abuse patient.[facility]In the event this information is protected by the Federal Confidentiality of Alcohol and Drug Abuse Patient Records regulations: The Federal rules restrict any use of the information to criminally investigate or prosecute any alcohol or drug abuse patient.[facility]In the event this information is protected by the Federal Confidentiality of Alcohol and Drug Abuse Patient Records regulations: The Federal rules restrict any use of the information to criminally investigate or prosecute any alcohol or drug abuse patient.[facility]In the event this information is protected by the Federal Confidentiality of Alcohol and Drug Abuse Patient Records regulations: The Federal rules restrict any use of the information to criminally investigate or prosecute any alcohol or drug abuse patient.[facility]In the event this information is protected by the Federal Confidentiality of Alcohol and Drug Abuse Patient Records regulations: The Federal rules restrict any use of the information to criminally investigate or prosecute any alcohol or drug abuse patient.[facility]In the event this information is protected by the Federal Confidentiality of Alcohol and Drug Abuse Patient Records regulations: The Federal rules restrict any use of the information to criminally investigate or prosecute any alcohol or drug abuse patient.[facility]In the event this information is protected by the Federal Confidentiality of Alcohol and Drug Abuse Patient Records regulations: The Federal rules restrict any use of the information to criminally investigate or prosecute any alcohol or drug abuse patient.[facility]In the event this information is protected by the Federal Confidentiality of Alcohol and Drug Abuse Patient Records regulations: The Federal rules restrict any use of the information to criminally investigate or prosecute any alcohol or drug abuse patient.[facility]In the event this information is protected by the Federal Confidentiality of Alcohol and Drug Abuse Patient Records regulations: The Federal rules restrict any use of the information to criminally investigate or prosecute any alcohol or drug abuse patient.[facility]In the event this information is protected by the Federal Confidentiality of Alcohol and Drug Abuse Patient Records regulations: The Federal rules restrict any use of the information to criminally investigate or prosecute any alcohol or drug abuse patient.[facility]In the event this information is protected by the Federal Confidentiality of Alcohol and Drug Abuse Patient Records regulations: The Federal rules restrict any use of the information to criminally investigate or prosecute any alcohol or drug abuse patient.[facility]In the event this information is protected by the Federal Confidentiality of Alcohol and Drug Abuse Patient Records regulations: The Federal rules restrict any use of the information to criminally investigate or prosecute any alcohol or drug abuse patient.[facility]In the event this information is protected by the Federal Confidentiality of Alcohol and Drug Abuse Patient Records regulations: The Federal rules restrict any use of the information to criminally investigate or prosecute any alcohol or drug abuse patient.[facility]In the event this information is protected by the Federal Confidentiality of Alcohol and Drug Abuse Patient Records regulations: The Federal rules restrict any use of the information to criminally investigate or prosecute any alcohol or drug abuse patient.[facility]In the event this information is protected by the Federal Confidentiality of Alcohol and Drug Abuse Patient Records regulations: The Federal rules restrict any use of the information to criminally investigate or prosecute any alcohol or drug abuse patient.[facility]In the event this information is protected by the Federal Confidentiality of Alcohol and Drug Abuse Patient Records regulations: The Federal rules restrict any use of the information to criminally investigate or prosecute any alcohol or drug abuse patient.[facility]In the event this information is protected by the Federal Confidentiality of Alcohol and Drug Abuse Patient Records regulations: The Federal rules restrict any use of the information to criminally investigate or prosecute any alcohol or drug abuse patient.[facility]In the event this information is protected by the Federal Confidentiality of Alcohol and Drug Abuse Patient Records regulations: The Federal rules restrict any use of the information to criminally investigate or prosecute any alcohol or drug abuse patient.[facility]In the event this information is protected by the Federal Confidentiality of Alcohol and Drug Abuse Patient Records regulations: The Federal rules restrict any use of the information to criminally investigate or prosecute any alcohol or drug abuse patient.[facility]In the event this information is protected by the Federal Confidentiality of Alcohol and Drug Abuse Patient Records regulations: The Federal rules restrict any use of the information to criminally investigate or prosecute any alcohol or drug abuse patient.[facility]In the event this information is protected by the Federal Confidentiality of Alcohol and Drug Abuse Patient Records regulations: The Federal rules restrict any use of the information to criminally investigate or prosecute any alcohol or drug abuse patient.[facility]In the event this information is protected by the Federal Confidentiality of Alcohol and Drug Abuse Patient Records regulations: The Federal rules restrict any use of the information to criminally investigate or prosecute any alcohol or drug abuse patient.[facility]In the event this information is protected by the Federal Confidentiality of Alcohol and Drug Abuse Patient Records regulations: The Federal rules restrict any use of the information to criminally investigate or prosecute any alcohol or drug abuse patient.[facility]In the event this information is protected by the Federal Confidentiality of Alcohol and Drug Abuse Patient Records regulations: The Federal rules restrict any use of the information to criminally investigate or prosecute any alcohol or drug abuse patient.[facility]In the event this information is protected by the Federal Confidentiality of Alcohol and Drug Abuse Patient Records regulations: The Federal rules restrict any use of the information to criminally investigate or prosecute any alcohol or drug abuse patient.[facility]In the event this information is protected by the Federal Confidentiality of Alcohol and Drug Abuse Patient Records regulations: The Federal rules restrict any use of the information to criminally investigate or prosecute any alcohol or drug abuse patient.[facility]In the event this information is protected by the Federal Confidentiality of Alcohol and Drug Abuse Patient Records regulations: The Federal rules restrict any use of the information to criminally investigate or prosecute any alcohol or drug abuse patient.[facility]In the event this information is protected by the Federal Confidentiality of Alcohol and Drug Abuse Patient Records regulations: The Federal rules restrict any use of the information to criminally investigate or prosecute any alcohol or drug abuse patient.[facility]In the event this information is protected by the Federal Confidentiality of Alcohol and Drug Abuse Patient Records regulations: The Federal rules restrict any use of the information to criminally investigate or prosecute any alcohol or drug abuse patient.[facility]In the event this information is protected by the Federal Confidentiality of Alcohol and Drug Abuse Patient Records regulations: The Federal rules restrict any use of the information to criminally investigate or prosecute any alcohol or drug abuse patient.[facility]In the event this information is protected by the Federal Confidentiality of Alcohol and Drug Abuse Patient Records regulations: The Federal rules restrict any use of the information to criminally investigate or prosecute any alcohol or drug abuse patient.[facility]In the event this information is protected by the Federal Confidentiality of Alcohol and Drug Abuse Patient Records regulations: The Federal rules restrict any use of the information to criminally investigate or prosecute any alcohol or drug abuse patient.[facility]In the event this information is protected by the Federal Confidentiality of Alcohol and Drug Abuse Patient Records regulations: The Federal rules restrict any use of the information to criminally investigate or prosecute any alcohol or drug abuse patient.[facility]In the event this information is protected by the Federal Confidentiality of Alcohol and Drug Abuse Patient Records regulations: The Federal rules restrict any use of the information to criminally investigate or prosecute any alcohol or drug abuse patient.[facility]In the event this information is protected by the Federal Confidentiality of Alcohol and Drug Abuse Patient Records regulations: The Federal rules restrict any use of the information to criminally investigate or prosecute any alcohol or drug abuse patient.[facility]In the event this information is protected by the Federal Confidentiality of Alcohol and Drug Abuse Patient Records regulations: The Federal rules restrict any use of the information to criminally investigate or prosecute any alcohol or drug abuse patient.[facility]In the event this information is protected by the Federal Confidentiality of Alcohol and Drug Abuse Patient Records regulations: The Federal rules restrict any use of the information to criminally investigate or prosecute any alcohol or drug abuse patient.[facility]In the event this information is protected by the Federal Confidentiality of Alcohol and Drug Abuse Patient Records regulations: The Federal rules restrict any use of the information to criminally investigate or prosecute any alcohol or drug abuse patient.[facility]In the event this information is protected by the Federal Confidentiality of Alcohol and Drug Abuse Patient Records regulations: The Federal rules restrict any use of the information to criminally investigate or prosecute any alcohol or drug abuse patient.[facility]In the event this information is protected by the Federal Confidentiality of Alcohol and Drug Abuse Patient Records regulations: The Federal rules restrict any use of the information to criminally investigate or prosecute any alcohol or drug abuse patient.[facility]In the event this information is protected by the Federal Confidentiality of Alcohol and Drug Abuse Patient Records regulations: The Federal rules restrict any use of the information to criminally investigate or prosecute any alcohol or drug abuse patient.[facility]In the event this information is protected by the Federal Confidentiality of Alcohol and Drug Abuse Patient Records regulations: The Federal rules restrict any use of the information to criminally investigate or prosecute any alcohol or drug abuse patient.[facility]In the event this information is protected by the Federal Confidentiality of Alcohol and Drug Abuse Patient Records regulations: The Federal rules restrict any use of the information to criminally investigate or prosecute any alcohol or drug abuse patient.[facility]In the event this information is protected by the Federal Confidentiality of Alcohol and Drug Abuse Patient Records regulations: The Federal rules restrict any use of the information to criminally investigate or prosecute any alcohol or drug abuse patient.[facility]In the event this information is protected by the Federal Confidentiality of Alcohol and Drug Abuse Patient Records regulations: The Federal rules restrict any use of the information to criminally investigate or prosecute any alcohol or drug abuse patient.[facility]In the event this information is protected by the Federal Confidentiality of Alcohol and Drug Abuse Patient Records regulations: The Federal rules restrict any use of the information to criminally investigate or prosecute any alcohol or drug abuse patient.[facility]In the event this information is protected by the Federal Confidentiality of Alcohol and Drug Abuse Patient Records regulations: The Federal rules restrict any use of the information to criminally investigate or prosecute any alcohol or drug abuse patient.[facility]In the event this information is protected by the Federal Confidentiality of Alcohol and Drug Abuse Patient Records regulations: The Federal rules restrict any use of the information to criminally investigate or prosecute any alcohol or drug abuse patient.[facility]In the event this information is protected by the Federal Confidentiality of Alcohol and Drug Abuse Patient Records regulations: The Federal rules restrict any use of the information to criminally investigate or prosecute any alcohol or drug abuse patient.[facility]In the event this information is protected by the Federal Confidentiality of Alcohol and Drug Abuse Patient Records regulations: The Federal rules restrict any use of the information to criminally investigate or prosecute any alcohol or drug abuse patient.[facility]In the event this information is protected by the Federal Confidentiality of Alcohol and Drug Abuse Patient Records regulations: The Federal rules restrict any use of the information to criminally investigate or prosecute any alcohol or drug abuse patient.[facility]In the event this information is protected by the Federal Confidentiality of Alcohol and Drug Abuse Patient Records regulations: The Federal rules restrict any use of the information to criminally investigate or prosecute any alcohol or drug abuse patient.[facility]In the event this information is protected by the Federal Confidentiality of Alcohol and Drug Abuse Patient Records regulations: The Federal rules restrict any use of the information to criminally investigate or prosecute any alcohol or drug abuse patient.[facility]In the event this information is protected by the Federal Confidentiality of Alcohol and Drug Abuse Patient Records regulations: The Federal rules restrict any use of the information to criminally investigate or prosecute any alcohol or drug abuse patient.[facility]In the event this information is protected by the Federal Confidentiality of Alcohol and Drug Abuse Patient Records regulations: The Federal rules restrict any use of the information to criminally investigate or prosecute any alcohol or drug abuse patient.[facility]In the event this information is protected by the Federal Confidentiality of Alcohol and Drug Abuse Patient Records regulations: The Federal rules restrict any use of the information to criminally investigate or prosecute any alcohol or drug abuse patient.[facility]In the event this information is protected by the Federal Confidentiality of Alcohol and Drug Abuse Patient Records regulations: The Federal rules restrict any use of the information to criminally investigate or prosecute any alcohol or drug abuse patient.[facility]In the event this information is protected by the Federal Confidentiality of Alcohol and Drug Abuse Patient Records regulations: The Federal rules restrict any use of the information to criminally investigate or prosecute any alcohol or drug abuse patient.[facility]In the event this information is protected by the Federal Confidentiality of Alcohol and Drug Abuse Patient Records regulations: The Federal rules restrict any use of the information to criminally investigate or prosecute any alcohol or drug abuse patient.[facility]In the event this information is protected by the Federal Confidentiality of Alcohol and Drug Abuse Patient Records regulations: The Federal rules restrict any use of the information to criminally investigate or prosecute any alcohol or drug abuse patient.[facility]In the event this information is protected by the Federal Confidentiality of Alcohol and Drug Abuse Patient Records regulations: The Federal rules restrict any use of the information to criminally investigate or prosecute any alcohol or drug abuse patient.[facility]In the event this information is protected by the Federal Confidentiality of Alcohol and Drug Abuse Patient Records regulations: The Federal rules restrict any use of the information to criminally investigate or prosecute any alcohol or drug abuse patient.[facility]In the event this information is protected by the Federal Confidentiality of Alcohol and Drug Abuse Patient Records regulations: The Federal rules restrict any use of the information to criminally investigate or prosecute any alcohol or drug abuse patient.[facility]In the event this information is protected by the Federal Confidentiality of Alcohol and Drug Abuse Patient Records regulations: The Federal rules restrict any use of the information to criminally investigate or prosecute any alcohol or drug abuse patient.[facility]In the event this information is protected by the Federal Confidentiality of Alcohol and Drug Abuse Patient Records regulations: The Federal rules restrict any use of the information to criminally investigate or prosecute any alcohol or drug abuse patient.[facility]In the event this information is protected by the Federal Confidentiality of Alcohol and Drug Abuse Patient Records regulations: The Federal rules restrict any use of the information to criminally investigate or prosecute any alcohol or drug abuse patient.[facility]In the event this information is protected by the Federal Confidentiality of Alcohol and Drug Abuse Patient Records regulations: The Federal rules restrict any use of the information to criminally investigate or prosecute any alcohol or drug abuse patient.[facility]In the event this information is protected by the Federal Confidentiality of Alcohol and Drug Abuse Patient Records regulations: The Federal rules restrict any use of the information to criminally investigate or prosecute any alcohol or drug abuse patient.[facility]In the event this information is protected by the Federal Confidentiality of Alcohol and Drug Abuse Patient Records regulations: The Federal rules restrict any use of the information to criminally investigate or prosecute any alcohol or drug abuse patient.[facility]In the event this information is protected by the Federal Confidentiality of Alcohol and Drug Abuse Patient Records regulations: The Federal rules restrict any use of the information to criminally investigate or prosecute any alcohol or drug abuse patient.[facility]In the event this information is protected by the Federal Confidentiality of Alcohol and Drug Abuse Patient Records regulations: The Federal rules restrict any use of the information to criminally investigate or prosecute any alcohol or drug abuse patient.[facility]In the event this information is protected by the Federal Confidentiality of Alcohol and Drug Abuse Patient Records regulations: The Federal rules restrict any use of the information to criminally investigate or prosecute any alcohol or drug abuse patient.[facility]In the event this information is protected by the Federal Confidentiality of Alcohol and Drug Abuse Patient Records regulations: The Federal rules restrict any use of the information to criminally investigate or prosecute any alcohol or drug abuse patient.[facility]In the event this information is protected by the Federal Confidentiality of Alcohol and Drug Abuse Patient Records regulations: The Federal rules restrict any use of the information to criminally investigate or prosecute any alcohol or drug abuse patient.[facility]In the event this information is protected by the Federal Confidentiality of Alcohol and Drug Abuse Patient Records regulations: The Federal rules restrict any use of the information to criminally investigate or prosecute any alcohol or drug abuse patient.[facility]In the event this information is protected by the Federal Confidentiality of Alcohol and Drug Abuse Patient Records regulations: The Federal rules restrict any use of the information to criminally investigate or prosecute any alcohol or drug abuse patient.[facility]In the event this information is protected by the Federal Confidentiality of Alcohol and Drug Abuse Patient Records regulations: The Federal rules restrict any use of the information to criminally investigate or prosecute any alcohol or drug abuse patient.[facility]In the event this information is protected by the Federal Confidentiality of Alcohol and Drug Abuse Patient Records regulations: The Federal rules restrict any use of the information to criminally investigate or prosecute any alcohol or drug abuse patient.[facility]In the event this information is protected by the Federal Confidentiality of Alcohol and Drug Abuse Patient Records regulations: The Federal rules restrict any use of the information to criminally investigate or prosecute any alcohol or drug abuse patient.[facility] EastIn the event this information is protected by the Federal Confidentiality of Alcohol and Drug Abuse Patient Records regulations: The Federal rules restrict any use of the information to criminally investigate or prosecute any alcohol or drug abuse patient.[facility] EastIn the event this information is protected by the Federal Confidentiality of Alcohol and Drug Abuse Patient Records regulations: The Federal rules restrict any use of the information to criminally investigate or prosecute any alcohol or drug abuse patient.[facility] EastIn the event this information is protected by the Federal Confidentiality of Alcohol and Drug Abuse Patient Records regulations: The Federal rules restrict any use of the information to criminally investigate or prosecute any alcohol or drug abuse patient.[facility] EastIn the event this information is protected by the Federal Confidentiality of Alcohol and Drug Abuse Patient Records regulations: The Federal rules restrict any use of the information to criminally investigate or prosecute any alcohol or drug abuse patient.[facility] EastIn the event this information is protected by the Federal Confidentiality of Alcohol and Drug Abuse Patient Records regulations: The Federal rules restrict any use of the information to criminally investigate or prosecute any alcohol or drug abuse patient.[facility] EastIn the event this information is protected by the Federal Confidentiality of Alcohol and Drug Abuse Patient Records regulations: The Federal rules restrict any use of the information to criminally investigate or prosecute any alcohol or drug abuse patient.[facility] EastIn the event this information is protected by the Federal Confidentiality of Alcohol and Drug Abuse Patient Records regulations: The Federal rules restrict any use of the information to criminally investigate or prosecute any alcohol or drug abuse patient.[facility] EastIn the event this information is protected by the Federal Confidentiality of Alcohol and Drug Abuse Patient Records regulations: The Federal rules restrict any use of the information to criminally investigate or prosecute any alcohol or drug abuse patient.[facility] EastIn the event this information is protected by the Federal Confidentiality of Alcohol and Drug Abuse Patient Records regulations: The Federal rules restrict any use of the information to criminally investigate or prosecute any alcohol or drug abuse patient.[facility] EastIn the event this information is protected by the Federal Confidentiality of Alcohol and Drug Abuse Patient Records regulations: The Federal rules restrict any use of the information to criminally investigate or prosecute any alcohol or drug abuse patient.[facility] EastIn the event this information is protected by the Federal Confidentiality of Alcohol and Drug Abuse Patient Records regulations: The Federal rules restrict any use of the information to criminally investigate or prosecute any alcohol or drug abuse patient.[facility] EastIn the event this information is protected by the Federal Confidentiality of Alcohol and Drug Abuse Patient Records regulations: The Federal rules restrict any use of the information to criminally investigate or prosecute any alcohol or drug abuse patient.[facility] EastIn the event this information is protected by the Federal Confidentiality of Alcohol and Drug Abuse Patient Records regulations: The Federal rules restrict any use of the information to criminally investigate or prosecute any alcohol or drug abuse patient.[facility] EastIn the event this information is protected by the Federal Confidentiality of Alcohol and Drug Abuse Patient Records regulations: The Federal rules restrict any use of the information to criminally investigate or prosecute any alcohol or drug abuse patient.[facility] EastIn the event this information is protected by the Federal Confidentiality of Alcohol and Drug Abuse Patient Records regulations: The Federal rules restrict any use of the information to criminally investigate or prosecute any alcohol or drug abuse patient.[facility] EastIn the event this information is protected by the Federal Confidentiality of Alcohol and Drug Abuse Patient Records regulations: The Federal rules restrict any use of the information to criminally investigate or prosecute any alcohol or drug abuse patient.[facility] EastIn the event this information is protected by the Federal Confidentiality of Alcohol and Drug Abuse Patient Records regulations: The Federal rules restrict any use of the information to criminally investigate or prosecute any alcohol or drug abuse patient.[facility] EastIn the event this information is protected by the Federal Confidentiality of Alcohol and Drug Abuse Patient Records regulations: The Federal rules restrict any use of the information to criminally investigate or prosecute any alcohol or drug abuse patient.[facility] EastIn the event this information is protected by the Federal Confidentiality of Alcohol and Drug Abuse Patient Records regulations: The Federal rules restrict any use of the information to criminally investigate or prosecute any alcohol or drug abuse patient.[facility] EastIn the event this information is protected by the Federal Confidentiality of Alcohol and Drug Abuse Patient Records regulations: The Federal rules restrict any use of the information to criminally investigate or prosecute any alcohol or drug abuse patient.[facility] EastIn the event this information is protected by the Federal Confidentiality of Alcohol and Drug Abuse Patient Records regulations: The Federal rules restrict any use of the information to criminally investigate or prosecute any alcohol or drug abuse patient.[facility] EastIn the event this information is protected by the Federal Confidentiality of Alcohol and Drug Abuse Patient Records regulations: The Federal rules restrict any use of the information to criminally investigate or prosecute any alcohol or drug abuse patient.[facility] EastIn the event this information is protected by the Federal Confidentiality of Alcohol and Drug Abuse Patient Records regulations: The Federal rules restrict any use of the information to criminally investigate or prosecute any alcohol or drug abuse patient.[facility] EastIn the event this information is protected by the Federal Confidentiality of Alcohol and Drug Abuse Patient Records regulations: The Federal rules restrict any use of the information to criminally investigate or prosecute any alcohol or drug abuse patient.[facility] EastIn the event this information is protected by the Federal Confidentiality of Alcohol and Drug Abuse Patient Records regulations: The Federal rules restrict any use of the information to criminally investigate or prosecute any alcohol or drug abuse patient.[facility] EastIn the event this information is protected by the Federal Confidentiality of Alcohol and Drug Abuse Patient Records regulations: The Federal rules restrict any use of the information to criminally investigate or prosecute any alcohol or drug abuse patient.[facility] EastIn the event this information is protected by the Federal Confidentiality of Alcohol and Drug Abuse Patient Records regulations: The Federal rules restrict any use of the information to criminally investigate or prosecute any alcohol or drug abuse patient.[facility] EastIn the event this information is protected by the Federal Confidentiality of Alcohol and Drug Abuse Patient Records regulations: The Federal rules restrict any use of the information to criminally investigate or prosecute any alcohol or drug abuse patient.[facility] Reason for Visit (unrecogniz ed section and content) Reason Comments Results A1c Reason Comments Insurance Authorization Reason Onset Date Comments Refill Request 03/11/2022 Reason Onset Date Comments Refill Request 04/11/2022 Reason Comments Allied Health Visit DM Reason Onset Date Comments Refill Request 05/10/2022 Reason Comments Results Reason Comments Returning Patient's Call Reason Onset Date Comments Refill Request 06/10/2022 Reason Comments Refill Request Reason Comments Diabetes Reason Onset Date Comments F/U 3 Month Immunizations 07/29/2022 Flu vaccination Reason Comments Medication Problem Jardiance cost Reason Comments Radiology US Specialty Diagnoses / Procedures Referred By Contac t Referred To Contact US IMAGING Diagnoses RUQ abdominal pain Procedures US ABD RT UPPER QUADRANT US ABDOMINAL REAL TIME W/IMAGE LIMITED Mariano Pearce, DO [address] [place] [address] Us Imaging Referral ID Status Reason Start Date Expiration Date V isits Requested Visits Authorized [id number] Closed Auto-Generate d Referral 07/29/2022 08/28/2023 1 1 Reason Comments Patient Question Reason Onset Date Comments Refill Request 10/14/2022 Reason Comments Forms [employer] PAP Cordell wal 2022 (Humalog and Basaglar) Reason Comments F/U 3 Month Reason Onset Date Comments Refill Request 10/31/2022 Reason Comments Med Change Request Reason Comments Patient Update Reason Comments Sinus Problem Reason Onset Date Comments Refill Request 12/03/2022 Reason Comments Release Of Medical Records Reason Comments F/U 3 Month Reason Comments Follow Up Reason Comments New Patient Specialty Diagnoses / Procedures Referred By Contac t Referred To Contact Neurology Diagnoses History of head injury Increased frequency of headaches Headache, worsening Abnormal CT of brain Procedures CONSULT TO NEUROLOGY OFFICE/OUTPATIENT NEW HIGH MDM 60-74 MINUTES Mariano Pearce, DO [address] [place] [address] Referral ID Status Reason Start Date Expiration Date V isits Requested Visits Authorized [id number] Closed PCP Requested Referral 02/11/2023 02/11/2024 1 1 Reason Comments Consult diarrhea Specialty Diagnoses / Procedures Referred By Contac t Referred To Contact General Surgery Diagnoses Diarrhea, unspecified type Generalized abdominal pain Procedures CONSULT TO GENERAL SURGERY OFFICE/OUTPATIENT [facility] 60-74 MINUTES Rocío Nunez APRN.[employer] [address] [place] [address] Referral ID Status Reason Start Date Expiration Date V isits Requested Visits Authorized [id number] Closed PCP Requested Referral 04/07/2023 04/06/2024 1 1 Reason Comments Results Patient Update Reason Comments Results US and stool test Reason Comments Consult Reason Comments Post Op Lap tosha with grams Reason Comments 07/04/2023 colon/egd escalante 06/04/2023 lap tosha escalante Reason Comments Medication Question insulin dosing for c olon prep days Reason Comments Follow Up Colon & EGD Reason Onset Date Comments F/U 3 Month Immunizations 07/30/2023 Flu vaccination Reason Onset Date Comments Refill Request 08/15/2023 Reason Onset Date Comments Refill Request 07/23/2023 Refill Request 08/15/2023 Reason Comments Patient OV notes Reason Comments Diarrhea Specialty Diagnoses / Procedures Referred By Ladonna t Referred To Contact US IMAGING Diagnoses Change in bowel habits Right upper quadrant pain Procedures US ABD RIGHT UPPER QUADRANT US ABDOMINAL REAL TIME W/IMAGE LIMITED Vanessa Gary PA-C [address] [facility] [address] [place] [address] Referral ID Status Reason Start Date Expiration Date V isits Requested Visits Authorized [id number] Closed Auto-Generate d Referral 04/23/2023 05/15/2024 [address] Specialty Diagnoses / Procedures Referred By Ladonna t Referred To Contact CT IMAGING Diagnoses Syncope, unspecified syncope type History of head injury Increased frequency of headaches Headache, worsening Procedures CT BRAIN WO IVCON CT HEAD/BRAIN W/O CONTRAST MATERIAL Mariano Pearce L, DO [address] [place] [address] [place] [address] Referral ID Status Reason Start Date Expiration Date V isits Requested Visits Authorized [id number] Closed Auto-Generate d Referral 01/28/2023 02/27/2024 1 1 Reason Onset Date Comments Refill Request 10/02/2023 Reason Onset Date Comments Opened In Error 10/08/2023 Reason Comments Follow Up Reason Comments Medication Assistance Reason Comments Medication Problem Reason Comments Forms Reason Comments F/U 3 Month Labs completed 7 day s ago, nasal drainage and left ear pain Reason Comments Patient Update 2023 [employer] Assistance Approval Reason Onset Date Comments Refill Request 01/29/2024 Reason Onset Date Comments Refill Request 02/03/2024 Reason Onset Date Comments Refill Request 02/20/2024 Reason Onset Date Comments Refill Request 03/01/2024 Lorazepam Reason Onset Date Comments Refill Request 03/04/2024 Reason Onset Date Comments Refill Request 04/06/2024 Reason Onset Date Comments Refill Request 04/20/2024 Reason Comments Recheck 3 month follow up Reason Comments Patient Question Reason Onset Date Comments Refill Request 05/06/2024 Medication Problem 05/06/2024 Reason Onset Date Comments Refill Request 05/06/2024 Reason Onset Date Comments Refill Request 06/30/2024 Reason Comments F/U 3 Month A1c 10.9 Reason Comments Patient Update Patient Request Reason Onset Date Comments Refill Request 08/03/2024 Reason Onset Date Comments Refill Request 08/24/2024 Reason Comments Medication Problem Freestyle Betsey 3 Reason Onset Date Comments Refill Request 09/23/2024 Reason Comments discuss anemia Reason Comments Results Reason Comments Radiology US Specialty Diagnoses / Procedures Referred By Ladonna t Referred To Contact US IMAGING Diagnoses Anemia, unspecified type Abdominal bloating Procedures US ABDOMEN COMPLETE US ABDOMINAL REAL TIME W/IMAGE DOCUMENTATION Naya Ruvalcaba, CUSTOMER CARE REPRESENTATIVE.[employer] TENDER [address] [place] [address] [place] [address] Referral ID Status Reason Start Date Expiration Date V isits Requested Visits Authorized [id number] Closed Auto-Generate d Referral 10/07/2024 11/06/2025 1 1 Reason Onset Date Comments Refill Request 10/25/2024 Reason Comments Forms Patient Assistance P rogram 2024 Renewal ([employer]) Reason Onset Date Comments Refill Request 11/02/2024 Reason Comments F/U 3 Month Specialty Diagnoses / Procedures Referred By Contac t Referred To Contact CT IMAGING Diagnoses Gastrointestinal hemorrhage with melena Abdominal bloating Procedures CT ABD/PEL W IVCON CT ABD & PELVIS W/CONTRAST Naya Ruvalcaba, CUSTOMER CARE REPRESENTATIVE.[employer] T[employer]ER [address] [place] [address] [place] [address] Referral ID Status Reason Start Date Expiration Date V isits Requested Visits Authorized [id number] Closed Auto-Generate d Referral 10/11/2024 11/10/2025 [address] Specialty Diagnoses / Procedures Referred By Contac t Referred To Contact CT IMAGING Diagnoses Gastrointestinal hemorrhage with melena Abdominal bloating Procedures CT ABD/PEL W IVCON CT ABD & PELVIS W/CONTRAST Naya Ruvalcaba, CUSTOMER CARE REPRESENTATIVE.[employer]ING T[employer]ER [address] [place] [address] [place] [address] Reason Comments Results Reason Comments Consult Anemia, hemorrhoids, 2022 last colonoscopy Specialty Diagnoses / Procedures Referred By Contac t Referred To Contact General Surgery Diagnoses Anemia, unspecified type External hemorrhoids Procedures CONSULT TO GENERAL SURGERY OFFICE/OUTPATIENT [facility] 60 MINUTES Mariano Pearce, DO [address] [place] [address] Referral ID Status Reason Start Date Expiration Date V isits Requested Visits Authorized [id number] Closed PCP Requested Referral 11/03/2024 11/03/2025 1 1 Reason Onset Date Comments Refill Request 11/19/2024 Results 11/19/2024 Specialty Diagnoses / Procedures Referred By Contac t Referred To Contact US IMAGING Diagnoses Fatty liver Abnormal CT of the abdomen Procedures US ABD RIGHT UPPER QUADRANT US ABDOMINAL REAL TIME W/IMAGE LIMITED Mariano Pearce, DO [address] [place] [address] [place] [address] Referral ID Status Reason Start Date Expiration Date V isits Requested Visits Authorized [id number] Closed Auto-Generate d Referral 11/22/2024 12/22/2025 1 1 Reason Onset Date Comments Refill Request 12/17/2024 Reason Onset Date Comments Refill Request 12/20/2024 Reason Onset Date Comments Refill Request 01/17/2025 Reason Comments F/U 3 Month UTI Urinary freq and bur arlette x 4 days Reason Onset Date Comments Refill Request 01/31/2025 Reason Onset Date Comments Results 02/02/2025 Reason Comments New Patient Cirrhosis of liver w ithout ascites Specialty Diagnoses / Procedures Referred By Ladonna kitchen Referred To Contact Diagnoses Cirrhosis of liver without ascites, unspecified hepatic cirrhosis type (HCC) Abnormal liver ultrasound Procedures CONSULT TO HEPATOLOGY OFFICE/OUTPATIENT NEW HIGH MDM 60 MINUTES Mariano Pearce DO [address] [place] [address] Phone: tel: fax: Referral ID Status Reason Start Date Expiration Date V isits Requested Visits Authorized [id number] Closed PCP Requested Referral 12/01/2024 12/01/2025 1 1 Reason Onset Date Comments Refill Request 03/01/2025 Reason Onset Date Comments mamm rsults 03/15/2025 Reason Onset Date Comments Refill Request 04/04/2025 Reason Onset Date Comments Refill Request 04/14/2025 Reason Onset Date Comments Refill Request 04/27/2025 Reason Comments FYI-No Action Needed Reason Comments F/U 3 Month Reason Onset Date Comments Opened In Error 05/06/2025 Reason Onset Date Comments Refill Request 05/12/2025 Reason Comments Established Patient Cirrhosis of liver w ithout ascites, unspecified hepatic cirrhosis type (HCC) Reason Onset Date Comments Refill Request 06/17/2025 Reason Onset Date Comments Refill Request 07/11/2025 Reason Comments Patient Update Appeal denial Reason Onset Date Comments Results 07/29/2025 Care Teams (unrecognized sec tion and content) Outpatient Scheduler Relationship Specialty Start Date End Date Mariano Pearce DO [address] [place], [place] [id number] PCP - General Family Practice 01/10/14 Farhad Pimentel RPh [address] [place], [place] [id number] Pharmacist Pharmacy 07/16/19 Outpatient Scheduler Relationship Specialty Start Date End Date Mariano Pearce DO [address] [place] [address] PCP - General Family Practice [facility]10[facility]14 [facility] [address] [place] [address] Pharmacist Pharmacy 07/16/19 Outpatient Scheduler Relationship Specialty Start Date End Date Mariano Pearce, DO [address] [place] [address] PCP - General Family Practice 01/10/14 PjFarhad martinez, [facility] [address] [place] [address] Pharmacist Pharmacy 07/16/19 Outpatient Scheduler Relationship Specialty Start Date End Date Mariano Pearce, DO [address] [place] [address] PCP - General Family Practice 01/10/14 PjFarhad martinez, [facility] [address] [place] [address] Pharmacist Pharmacy 07/16/19 Outpatient Scheduler Relationship Specialty Start Date End Date Mariano Pearce, DO [address] [place] [address] PCP - General Family Practice 01/10/14 PjFarhad martinez, [facility] [address] [place] [address] Pharmacist Pharmacy 07/16/19 Outpatient Scheduler Relationship Specialty Start Date End Date Mariano Pearce, DO [address] [place] [address] PCP - General Family Practice 01/10/14 Farhad Pimentel, [facility] [address] [place] [address] Pharmacist Pharmacy 07/16/19 Outpatient Scheduler Relationship Specialty Start Date End Date Mariano Pearce, DO [address] [place] [address] PCP - General Family Practice 01/10/14 [facility] [address] [place] [address] Pharmacist Pharmacy 07/16/19 Outpatient Scheduler Relationship Specialty Start Date End Date Mariano Pearce, DO [address] [place] [address] PCP - General Family Practice 01/10/14 [facility] [address] [place] [address] Pharmacist Pharmacy 07/16/19 Outpatient Scheduler Relationship Specialty Start Date End Date Mariano Pearce, DO [address] [place] [address] PCP - General Family Practice 01/10/14 [facility] [address] [place] [address] Pharmacist Pharmacy 07/16/19 Outpatient Scheduler Relationship Specialty Start Date End Date Mariano Pearce, DO [address] [place] [address] PCP - General Family Practice 01/10/14 [facility] [address] [place] [address] Pharmacist Pharmacy 07/16/19 Outpatient Scheduler Relationship Specialty Start Date End Date Mariano Pearce, DO [address] [place] [address] PCP - General Family Practice 01/10/14 Farhad Pimentel, [facility] [address] [place] [address] Pharmacist Pharmacy 07/16/19 Outpatient Scheduler Relationship Specialty Start Date End Date Mariano Pearce, DO [address] [place] [address] PCP - General Family Medicine 01/10/14 [facility] [address] [place] [address] Pharmacist Pharmacy 07/16/19 Outpatient Scheduler Relationship Specialty Start Date End Date Mariano Pearce, DO [address] [place] [address] PCP - General Family Medicine 01/10/14 Farhad Pimentel, [facility] [address] [place] [address] Pharmacist Pharmacy 07/16/19 Outpatient Scheduler Relationship Specialty Start Date End Date Mariano Pearce, DO [address] [place] [address] PCP - General Family Medicine 01/10/14 PjFarhad martinez, [facility] [address] [place] [address] Pharmacist Pharmacy 07/16/19 Outpatient Scheduler Relationship Specialty Start Date End Date Mariano Pearce, DO [address] [place] [address] PCP - General Family Medicine 01/10/14 Pj Abdirashidmilton, [facility] [address] [place] [address] Pharmacist Pharmacy 07/16/19 Outpatient Scheduler Relationship Specialty Start Date End Date Mariano Pearce, DO [address] [place] [address] PCP - General Family Medicine 01/10/14 Farhad Pimentel, [facility] [address] [place] [address] Pharmacist Pharmacy 07/16/19 Outpatient Scheduler Relationship Specialty Start Date End Date Mariano Pearce, DO [address] [place] [address] PCP - General Family Medicine 01/10/14 Farhad Pimentel, [facility] [address] [place] [address] Pharmacist Pharmacy 07/16/19 Outpatient Scheduler Relationship Specialty Start Date End Date Mariano Pearce, DO [address] [place] [address] PCP - General Family Medicine 01/10/14 Farhad Pimentel, [facility] [address] [place] [address] Pharmacist Pharmacy 07/16/19 Outpatient Scheduler Relationship Specialty Start Date End Date Mariano Pearce, DO [address] [place] [address] PCP - General Family Medicine 01/10/14 Farhad Pimentel, [facility] [address] [place] [address] Pharmacist Pharmacy 07/16/19 Outpatient Scheduler Relationship Specialty Start Date End Date Mariano Pearce, DO [address] [place] [address] PCP - General Family Medicine 01/10/14 Farhad Pimentel, [facility] [address] [place] [address] Pharmacist Pharmacy 07/16/19 Outpatient Scheduler Relationship Specialty Start Date End Date Mariano Pearce, DO [address] [place] [address] PCP - General Family Medicine 01/10/14 Farhad Pimentel, [facility] [address] [place] [address] Pharmacist Pharmacy 07/16/19 Outpatient Scheduler Relationship Specialty Start Date End Date Mariano Pearce, DO [address] [place] [address] PCP - General Family Medicine 01/10/14 [facility] [address] [place] [address] Pharmacist Pharmacy 07/16/19 Outpatient Scheduler Relationship Specialty Start Date End Date Mariano Pearce, DO [address] [place] [address] PCP - General Family Medicine 01/10/14 [facility] [address] [place] [address] Pharmacist Pharmacy 07/16/19 Outpatient Scheduler Relationship Specialty Start Date End Date Mariano Pearce, DO [address] [place] [address] PCP - General Family Medicine 01/10/14 Farhad [facility] [address] [place] [address] Pharmacist Pharmacy 07/16/19 Outpatient Scheduler Relationship Specialty Start Date End Date Mariaon Pearce, DO [address] [place] [address] PCP - General Family Medicine 01/10/14 [facility] [address] [place] [address] Pharmacist Pharmacy 07/16/19 Outpatient Scheduler Relationship Specialty Start Date End Date Mariano Pearce, DO [address] [place] [address] PCP - General Family Medicine 01/10/14 [facility] [address] [place] [address] Pharmacist Pharmacy 07/16/19 Outpatient Scheduler Relationship Specialty Start Date End Date Mariano Pearce, DO [address] [place] [address] PCP - General Family Medicine 01/10/14 [facility] [address] [place] [address] Pharmacist Pharmacy 07/16/19 Outpatient Scheduler Relationship Specialty Start Date End Date Mariano Pearce, DO [address] [place] [address] PCP - General Family Medicine 01/10/14 [facility]Mad[facility] [address] [place] [address] Pharmacist Pharmacy 07/16/19 Outpatient Scheduler Relationship Specialty Start Date End Date Mariano Pearce, DO [address] [place] [address] PCP - General Family Medicine 01/10/14 [facility] [address] [place] [address] Pharmacist Pharmacy 07/16/19 Outpatient Scheduler Relationship Specialty Start Date End Date Mariano Pearce, DO [address] [place] [address] PCP - General Family Medicine 01/10/14 [facility] [address] [place] [address] Pharmacist Pharmacy 07/16/19 Outpatient Scheduler Relationship Specialty Start Date End Date Mariano Pearce, DO [address] [place] [address] PCP - General Family Medicine 01/10/14 Farhad Pimentel, [facility] [address] [place] [address] Pharmacist Pharmacy 07/16/19 Outpatient Scheduler Relationship Specialty Start Date End Date Mariano Pearce, [address] [place] [address] PCP - General Family Medicine 01/10/14 Farhad Pimentel, [facility] [address] [place] [address] Pharmacist Pharmacy 07/16/19 Outpatient Scheduler Relationship Specialty Start Date End Date Mariano Pearce DO [address] [place] [address] PCP - General Family Medicine 01/10/14 Farhad Pimentel, [facility] [address] [place] [address] Pharmacist Pharmacy 07/16/19 Outpatient Scheduler Relationship Specialty Start Date End Date Mariano Pearce, [address] [place] [address] PCP - General Family Medicine 01/10/14 Farhad Pimentel, [facility] [address] [place] [address] Pharmacist Pharmacy 07/16/19 Outpatient Scheduler Relationship Specialty Start Date End Date Mariano Pearce DO [address] [place] [address] PCP - General Family Medicine 01/10/14 Farhad Pimentel, [facility] [address] [place] [address] Pharmacist Pharmacy 07/16/19 Outpatient Scheduler Relationship Specialty Start Date End Date Mariano Pearce, [address] [place] [address] PCP - General Family Medicine 01/10/14 [facility] [address] [place] [address] Pharmacist Pharmacy 07/16/19 Outpatient Scheduler Relationship Specialty Start Date End Date Mariano Pearce, [address] [place] [address] PCP - General Family Medicine 01/10/14 [facility] [address] [place] [address] Pharmacist Pharmacy 07/16/19 Outpatient Scheduler Relationship Specialty Start Date End Date Mariano Pearce DO [address] [place] [address] PCP - General Family Medicine 01/10/14 [facility] [address] [place] [address] Pharmacist Pharmacy 07/16/19 Outpatient Scheduler Relationship Specialty Start Date End Date Mariano Pearce, [address] [place] [address] PCP - General Family Medicine 01/10/14 [facility] [address] [place] [address] Pharmacist Pharmacy 07/16/19 Outpatient Scheduler Relationship Specialty Start Date End Date Mariano Pearce DO [address] [place] [address] PCP - General Family Medicine 01/10/14 Farhad Pimentel, [facility] [address] [place] [address] Pharmacist Pharmacy 07/16/19 Outpatient Scheduler Relationship Specialty Start Date End Date Mariano Pearce DO [address] [place] [address] PCP - General Family Medicine 01/10/14 Farhad Pimentel, [facility] [address] [place] [address] Pharmacist Pharmacy 07/16/19 Outpatient Scheduler Relationship Specialty Start Date End Date Mariano Pearce DO [address] [place] [address] PCP - General Family Medicine 01/10/14 Greta Watts, [facility] [address] [place] [address] Pharmacist Pharmacy 09/11/23 Outpatient Scheduler Relationship Specialty Start Date End Date Mariano Pearce DO [address] [place] [address] PCP - General Family Medicine 01/10/14 Farhad Pimentel, [facility] [address] [place] [address] Pharmacist Pharmacy 07/16/19 09/10/23 Outpatient Scheduler Relationship Specialty Start Date End Date Mariano Pearce DO [address] [place] [address] PCP - General Family Medicine 01/10/14 Farhad Pimentel, [facility] [address] [place] [address] Pharmacist Pharmacy 07/16/19 09/10/23 Outpatient Scheduler Relationship Specialty Start Date End Date Mariano Pearce, [address] [place] [address] PCP - General Family Medicine 01/10/14 [facility] [address] [place] [address] Pharmacist Pharmacy 07/16/19 09/10/23 Outpatient Scheduler Relationship Specialty Start Date End Date Mariano Pearce DO [address] [place] [address] PCP - General Family Medicine 01/10/14 [facility] [address] [place] [address] Pharmacist Pharmacy 09/11/23 Outpatient Scheduler Relationship Specialty Start Date End Date Mariano Pearce DO [address] [place] [address] PCP - General Family Medicine 01/10/14 [facility] [address] [place] [address] Pharmacist Pharmacy 09/11/23 Outpatient Scheduler Relationship Specialty Start Date End Date Mariano Pearce DO [address] [place] [address] PCP - General Family Medicine 01/10/14 [facility] [address] [place] [address] Pharmacist Pharmacy 09/11/23 Outpatient Scheduler Relationship Specialty Start Date End Date Mariano Pearce DO [address] [place] [address] PCP - General Family Medicine 01/10/14 Greta Watts, [facility] [address] [place] [address] Pharmacist Pharmacy 09/11/23 Outpatient Scheduler Relationship Specialty Start Date End Date Mariano Pearce, [address] [place] [address] PCP - General Family Medicine 01/10/14 [facility] [address] [place] [address] Pharmacist Pharmacy 09/11/23 Outpatient Scheduler Relationship Specialty Start Date End Date Mariano Pearce, [address] [place] [address] PCP - General Family Medicine 01/10/14 [facility] [address] [place] [address] Pharmacist Pharmacy 09/11/23 Outpatient Scheduler Relationship Specialty Start Date End Date Mariano Pearce DO [address] [place] [address] PCP - General Family Medicine 01/10/14 Greta Watts, [facility] [address] [place] [address] Pharmacist Pharmacy 09/11/23 Outpatient Scheduler Relationship Specialty Start Date End Date Mariano Pearce, [address] [place] [address] PCP - General Family Medicine 01/10/14 Greta Watts, [facility] [address] [place] [address] Pharmacist Pharmacy 09/11/23 Outpatient Scheduler Relationship Specialty Start Date End Date Mariano Pearce DO [address] [place] [address] PCP - General Family Medicine 01/10/14 [facility] [address] [place] [address] Pharmacist Pharmacy 09/11/23 Outpatient Scheduler Relationship Specialty Start Date End Date Mariano Pearce DO [address] [place] [address] PCP - General Family Medicine 01/10/14 [facility] [address] [place] [address] Pharmacist Pharmacy 09/11/23 Outpatient Scheduler Relationship Specialty Start Date End Date Mariano Pearce DO [address] [place] [address] PCP - General Family Medicine 01/10/14 [facility] [address] [place] [address] Pharmacist Pharmacy 09/11/23 Outpatient Scheduler Relationship Specialty Start Date End Date Mariano Pearce DO [address] [place] [address] PCP - General Family Medicine 01/10/14 [facility] [address] [place] [address] Pharmacist Pharmacy 09/11/23 Outpatient Scheduler Relationship Specialty Start Date End Date Mariano Pearce, DO [address] [place] [address] PCP - General Family Medicine 01/10/14 [facility] hospitalOswaldo [facility]ohnsonP[facility] [address] [place] [address] Pharmacist Pharmacy 09/11/23 Outpatient Scheduler Relationship Specialty Start Date End Date Mariano Pearce, [address] [place] [address] PCP - General Family Medicine 01/10/14 [facility] [address] [place] [address] Pharmacist Pharmacy 09/11/23 Outpatient Scheduler Relationship Specialty Start Date End Date Mariano Pearce DO [address] [place] [address] PCP - General Family Medicine 01/10/14 JosephctOswaldo johnsonP[facility] [address] [place] [address] Pharmacist Pharmacy 09/11/23 Outpatient Scheduler Relationship Specialty Start Date End Date Mariano Pearce, [address] [place] [address] PCP - General Family Medicine 01/10/14 JosephctOswaldo johnsonP[facility] [address] [place] [address] Pharmacist Pharmacy 09/11/23 Outpatient Scheduler Relationship Specialty Start Date End Date Mariano Pearce, DO [address] [place] [address] PCP - General Family Medicine 01/10/14 Greta Watts, [facility] [address] [place] [address] Pharmacist Pharmacy 09/11/23 Outpatient Scheduler Relationship Specialty Start Date End Date Mariano Pearce, [address] [place] [address] PCP - General Family Medicine 01/10/14 Greta Watts, [facility] [address] [place] [address] Pharmacist Pharmacy 09/11/23 Outpatient Scheduler Relationship Specialty Start Date End Date Mariano Pearce, [address] [place] [address] PCP - General Family Medicine 01/10/14 Greta Watts, [facility] [address] [place] [address] Pharmacist Pharmacy 09/11/23 Outpatient Scheduler Relationship Specialty Start Date End Date Mariano Pearce DO [address] [place] [address] PCP - General Family Medicine 01/10/14 Greta Watts, [facility] [address] [place] [address] Pharmacist Pharmacy 09/11/23 Outpatient Scheduler Relationship Specialty Start Date End Date Mariano Pearce, DO [address] [place] [address] PCP - General Family Medicine 01/10/14 Greta Watts, [facility] [address] [place] [address] Pharmacist Pharmacy 09/11/23 Outpatient Scheduler Relationship Specialty Start Date End Date Mariano Pearce DO [address] [place] [address] PCP - General Family Medicine 01/10/14 [facility] [address] [place] [address] Pharmacist Pharmacy 09/11/23 Outpatient Scheduler Relationship Specialty Start Date End Date Mariano Pearce DO [address] [place] [address] PCP - General Family Medicine 01/10/14 [facility] [address] [place] [address] Pharmacist Pharmacy 07/16/19 09/10/23 Outpatient Scheduler Relationship Specialty Start Date End Date Mariano Pearce DO [address] [place] [address] PCP - General Family Medicine 01/10/14 [facility] [address] [place] [address] Pharmacist Pharmacy 09/11/23 Outpatient Scheduler Relationship Specialty Start Date End Date Mariano Pearce, [address] [place] [address] PCP - General Family Medicine 01/10/14 [facility] [address] [place] [address] Pharmacist Pharmacy 09/11/23 Outpatient Scheduler Relationship Specialty Start Date End Date Mariano Pearce DO [address] [place] [address] PCP - General Family Medicine 01/10/14 [facility] [address] [place] [address] Pharmacist Pharmacy 09/11/23 Outpatient Scheduler Relationship Specialty Start Date End Date Mariano Pearce DO [address] [place] [address] PCP - General Family Medicine 01/10/14 [facility] [address] [place] [address] Pharmacist Pharmacy 09/11/23 Outpatient Scheduler Relationship Specialty Start Date End Date Mariano Pearce DO [address] [place] [address] PCP - General Family Medicine 01/10/14 [facility] [address] [place] [address] Pharmacist Pharmacy 09/11/23 Outpatient Scheduler Relationship Specialty Start Date End Date Mariano Pearce DO [address] [place] [address] PCP - General Family Medicine 01/10/14 [facility] [address] [place] [address] Pharmacist Pharmacy 09/11/23 Outpatient Scheduler Relationship Specialty Start Date End Date Mariano Pearce DO [address] [place] [address] PCP - General Family Medicine 01/10/14 Mac Greta, RPh [address] [place] [address] Pharmacist Pharmacy 09/11/23 Outpatient Scheduler Relationship Specialty Start Date End Date Mariano Pearce DO [address] [place] [address] PCP - General Family Medicine 01/10/14 Mac Greta, RPh [address] [place] [address] Pharmacist Pharmacy 09/11/23 Outpatient Scheduler Relationship Specialty Start Date End Date Mariano Pearce DO [address] [place] [address] PCP - General Family Medicine 01/10/14 [facility]Saint [facility] [address] [place] [address] Pharmacist Pharmacy 09/11/23 Naya Ruvalcaba, CUSTOMER CARE REPRESENTATIVE.WARP DYEING TENDER [address] [place] [address] Set Up Worker Family Medicine 10/24/24 Demetra Navarrete, CUSTOMER CARE REPRESENTATIVE.WARP DYEING TENDER [address] [place] [address] Set Up Worker Family Medicine 10/24/24 Outpatient Scheduler Relationship Specialty Start Date End Date Mariano Pearce DO [address] [place] [address] PCP - General Family Medicine 01/10/14 [facility]health[facility] hospitalelizabeth Greta, RPh [address] [place] [address] Pharmacist Pharmacy 09/11/23 Naya Ruvalcaba, CUSTOMER CARE REPRESENTATIVE.WARP DYEING TENDER [address] [place] [address] [facility] 10/24/24 RosalbaDemetra, CUSTOMER CARE REPRESENTATIVE.WARP DYEING TENDER [address] [place] [address] [facility] 10/24/24 Outpatient Scheduler Relationship Specialty Start Date End Date Mariano Pearce DO [address] [place] [address] PCP - General Family Medicine 01/10/14 [facility] [address] [place] [address] Pharmacist Pharmacy 09/11/23 Naya Ruvalcaba, CUSTOMER CARE REPRESENTATIVE.WARP DYEING TENDER [address] [place] [address] [facility] 10/24/24 RosalbaDemetra, CUSTOMER CARE REPRESENTATIVE.WARP DYEING TENDER [address] [place] [address] [facility] 10/24/24 Outpatient Scheduler Relationship Specialty Start Date End Date Mariano Pearce DO [address] [place] [address] PCP - General Family Medicine 01/10/14 [facility] [address] [place] [address] Pharmacist Pharmacy 09/11/23 Naya Ruvalcaba, CUSTOMER CARE REPRESENTATIVE.WARP DYEING TENDER [address] [place] [address] Set Up Worker Family [facility] 10/24/24 RosalbaDemetra, CUSTOMER CARE REPRESENTATIVE.WARP DYEING TENDER [address] [place] [address] [facility] 10/24/24 Outpatient Scheduler Relationship Specialty Start Date End Date Mariano Pearce DO [address] [place] [address] PCP - General Family Medicine 01/10/14 [facility] [address] [place] [address] Pharmacist Pharmacy 09/11/23 Naya Ruvalcaba, CUSTOMER CARE REPRESENTATIVE.WARP DYEING TENDER [address] [place] [address] [facility] 10/24/24 RosalbaDemetra, CUSTOMER CARE REPRESENTATIVE.WARP DYEING TENDER [address] [place] [address] [facility] 10/24/24 Outpatient Scheduler Relationship Specialty Start Date End Date Mariano Pearce DO [address] [place] [address] PCP - General Family Medicine 01/10/14 [facility] [address] [place] [address] Pharmacist Pharmacy 09/11/23 Naya Ruvalcaba, CUSTOMER CARE REPRESENTATIVE.WARP DYEING TENDER [address] [place] [address] Set Up Worker Family [facility] 10/24/24 Demetra Navarrete, CUSTOMER CARE REPRESENTATIVE.WARP DYEING TENDER [address] [place] [address] [facility] 10/24/24 Outpatient Scheduler Relationship Specialty Start Date End Date Mariano Pearce DO [address] [place] [address] PCP - General Family Medicine 01/10/14 [facility]note 3[facility] [address] [place] [address] Pharmacist Pharmacy 09/11/23 Naya Ruvalcaba, CUSTOMER CARE REPRESENTATIVE.WARP DYEING TENDER [address] [place] [address] [facility] 10/24/24 [facility] CenterDem[facility], CUSTOMER CARE REPRESENTATIVE.WARP DYEING TENDER [address] [place] [address] [facility] 10/24/24 Outpatient Scheduler Relationship Specialty Start Date End Date Mariano Pearce DO [address] [place] [address] PCP - General Family Medicine 01/10/14 [facility][note 3] [address] [place] [address] Pharmacist Pharmacy 09/11/23 Naya Ruvalcaba, CUSTOMER CARE REPRESENTATIVE.WARP DYEING TENDER [address] [place] [address] [facility] 10/24/24 RosalbaDemetra, CUSTOMER CARE REPRESENTATIVE.WARP DYEING TENDER [address] [place] [address] Set Up Worker Family Medicine 10/24/24 Outpatient Scheduler Relationship Specialty Start Date End Date Mariano Pearce DO [address] [place] [address] PCP - General Family Medicine 01/10/14 [facility] CenterOsw[facility]doGre[facility], RPh [address] [place] [address] Pharmacist Pharmacy 09/11/23 Naya Ruvalcaba, CUSTOMER CARE REPRESENTATIVE.WARP DYEING TENDER [address] [place] [address] Set Up Worker Family [facility] 10/24/24 Demetra Navarrete, CUSTOMER CARE REPRESENTATIVE.WARP DYEING TENDER [address] [place] [address] Set Up Worker Family [facility] 10/24/24 Outpatient Scheduler Relationship Specialty Start Date End Date Mariano Pearce DO [address] [place] [address] PCP - General Family Medicine 01/10/14 [facility] HospitalGurwinder johnsonSaint [facility] [address] [place] [address] Pharmacist Pharmacy 09/11/23 Naya Ruvalcaba, CUSTOMER CARE REPRESENTATIVE.WARP DYEING TENDER [address] [place] [address] Set Up Worker Family Medicine 10/24/24 Demetra Navarrete, CUSTOMER CARE REPRESENTATIVE.WARP DYEING TENDER [address] [place] [address] Set Up Worker Family Medicine 10/24/24 Outpatient Scheduler Relationship Specialty Start Date End Date Mariano Pearce DO [address] [place] [address] PCP - General Family Medicine 01/10/[address] [facility] CentermaritzactGreta johnsonMad[facility] Center [address] [place] [address] Pharmacist Pharmacy 09/11/23 Naya Ruvalcaba, CUSTOMER CARE REPRESENTATIVE.WARP DYEING TENDER [address] [place] [address] Set Up Worker Family Medicine 10/24/24 Demetra Navarrete, CUSTOMER CARE REPRESENTATIVE.WARP DYEING TENDER [address] [place] [address] Set Up Worker Family Medicine 10/24/24 Outpatient Scheduler Relationship Specialty Start Date End Date Mariano Pearce DO [address] [place] [address] PCP - General Family Medicine 01/10/[address] [facility] CentermaritzactGreta johnsonMadison Medical Center [address] [place] [address] Pharmacist Pharmacy 09/11/23 Naya Ruvalcaba, CUSTOMER CARE REPRESENTATIVE.WARP DYEING TENDER [address] [place] [address] Set Up Worker Family Medicine 10/24/24 Demetra Navarrete, CUSTOMER CARE REPRESENTATIVE.WARP DYEING TENDER [address] [place] [address] Set Up Worker Family Medicine 10/24/24 Outpatient Scheduler Relationship Specialty Start Date End Date Mariano Pearce DO [address] [place] [address] PCP - General Family Medicine 01/10/14 [facility] [address] [place] [address] Pharmacist Pharmacy 09/11/23 Naya Ruvalcaba, CUSTOMER CARE REPRESENTATIVE.WARP DYEING TENDER [address] [place] [address] Set Up Worker Family Medicine 10/24/24 Demetra Navarrete, CUSTOMER CARE REPRESENTATIVE.WARP DYEING TENDER [address] [place] [address] Set Up Worker Family [facility] 10/24/24 Outpatient Scheduler Relationship Specialty Start Date End Date Mariano Pearce DO [address] [place] [address] PCP - General Family Medicine 01/10/14 [facility]Saint [facility] [address] [place] [address] Pharmacist Pharmacy 09/11/23 Demetra Navarrete, CUSTOMER CARE REPRESENTATIVE.WARP DYEING TENDER [address] [place] [address] Set Up Worker [facility] 10/24/24 Outpatient Scheduler Relationship Specialty Start Date End Date Mariano Pearce DO [address] [place] [address] PCP - General Family Medicine 01/10/14 [facility] [address] [place] [address] Pharmacist Pharmacy 09/11/23 Demetra Navarrete, CUSTOMER CARE REPRESENTATIVE.WARP DYEING TENDER [address] [place] [address] Set Up Worker Family Medicine 10/24/24 Outpatient Scheduler Relationship Specialty Start Date End Date Mariano Pearce DO [address] [place] [address] PCP - General Family Medicine 01/10/14 [facility] [address] [place] [address] Pharmacist Pharmacy 09/11/23 Demetra Navarrete, CUSTOMER CARE REPRESENTATIVE.WARP DYEING TENDER [address] [place] [address] Set Up Worker Family Medicine 10/24/24 Outpatient Scheduler Relationship Specialty Start Date End Date Mariano Pearce DO [address] [place] [address] PCP - General Family Medicine 01/10/14 [facility] [address] [place] [address] Pharmacist Pharmacy 09/11/23 Demetra Navarrete, CUSTOMER CARE REPRESENTATIVE.WARP DYEING TENDER [address] [place] [address] Set Up Worker Family Medicine 10/24/24 Outpatient Scheduler Relationship Specialty Start Date End Date Mariano Pearce DO [address] [place] [address] PCP - General Family Medicine 01/10/14 Greta Watts, [facility] [address] [place] [address] Pharmacist Pharmacy 09/11/23 Demetra Navarrete, CUSTOMER CARE REPRESENTATIVE.WARP DYEING TENDER [address] [place] [address] Set Up Worker Family Medicine 10/24/24 Outpatient Scheduler Relationship Specialty Start Date End Date Mariano Pearce DO [address] [place] [address] PCP - General Family Medicine 01/10/14 [facility]sw[facility] garc[facility]Greta, RPh [address] [place] [address] Pharmacist Pharmacy 09/11/23 Naya Ruvalcaba, CUSTOMER CARE REPRESENTATIVE.WARP DYEING TENDER [address] [place] [address] Set Up Worker [facility] 10/24/24 02/04/25 Demetra Navarrete, CUSTOMER CARE REPRESENTATIVE.WARP DYEING TENDER [address] [place] [address] Set Up Worker [facility] 10/24/24 Outpatient Scheduler Relationship Specialty Start Date End Date Mariano Pearce DO [address] [place] [address] PCP - General Family Medicine 01/10/14 [facility]health[facility] hospitalGurwinder johnsonSaint [facility] [address] [place] [address] Pharmacist Pharmacy 09/11/23 Demetra Navarrete, CUSTOMER CARE REPRESENTATIVE.WARP DYEING TENDER [address] [place] [address] [facility] 10/24/24 Outpatient Scheduler Relationship Specialty Start Date End Date Mariano Pearce DO [address] [place] [address] PCP - General Family Medicine 01/10/14 [facility] [address] [place] [address] Pharmacist Pharmacy 09/11/23 Demetra Navarrete, CUSTOMER CARE REPRESENTATIVE.WARP DYEING TENDER [address] [facility] [place] [address] Set Up Worker Family Medicine 10/24/24 Team Status: Active Member Role Status Dates Dr. Mariano Pearce DO Primary Care Provider Active Team Status: Inactive Member Role Status Dates Dr. Mariano Pearce DO Primary Care Provider Active Start: March 22, 2025 End: March 22, 2025 Demetra Navarrete BOILER ROOM OPERATOR, BOILER ROOM OPERATOR-C Attending Provider Active Start: March 22, 2025 End: March 22, 2025 Demetra Navarrete BOILER ROOM OPERATOR, BOILER ROOM OPERATOR-C Referring Provider Active Start: March 22, 2025 End: March 22, 2025 Outpatient Scheduler Relationship Specialty Start Date End Date Mariano Pearce DO [address] [facility] [place] [address] PCP - General Family Medicine [facility]10[facility] [address] [place] [address] Pharmacist Pharmacy 09/11/23 Demetra Navarrete, CUSTOMER CARE REPRESENTATIVE.WARP DYEING TENDER [address] [facility] [place] [address] Set Up Worker [facility] 10/24/24 Outpatient Scheduler Relationship Specialty Start Date End Date Mariano Pearce DO [address] [facility] [place] [address] PCP - General Family Medicine 01/10/14 [facility] [address] [facility] [place] [address] Pharmacist Pharmacy 09/11/23 Demetra Navarrete APRN.WARP DYEING TENDER [address] [facility] [place] [address] [facility]24 Outpatient Scheduler Relationship Specialty Start Date End Date Mariano Pearce DO [address] [facility] [place] [address] PCP - General Family Medicine 01/10/14 Greta Watts, [facility] [address] [facility] [place] [address] Pharmacist Pharmacy 09/11/23 Demetra Navarrete, CUSTOMER CARE REPRESENTATIVE.WARP DYEING TENDER [address] [place] [address] [facility] 10/24/24 Caridad Chapman, CUSTOMER CARE REPRESENTATIVE.WARP DYEING TENDER [address] [facility] [place] [address] [facility] 05/02/25 Outpatient Scheduler Relationship Specialty Start Date End Date Mariano Pearce DO [address] [facility] [place] [address] PCP - General Family Medicine 01/10/14 Greta Watts, [facility] [address] [place] [address] Pharmacist Pharmacy 09/11/23 Demetra Navarrete, CUSTOMER CARE REPRESENTATIVE.WARP DYEING TENDER [address] [place] [address] Set Up Worker Family Medicine 10/24/24 Caridad Chapman CUSTOMER CARE REPRESENTATIVE.WARP DYEING TENDER [address] [place] [address] [facility] 05/02/25 Outpatient Scheduler Relationship Specialty Start Date End Date Mariano Pearce DO [address] [place] [address] PCP - General Family Medicine 01/10/14 Greta Watts [facility] [address] [place] [address] Pharmacist Pharmacy 09/11/23 Demetra Navarrete, CUSTOMER CARE REPRESENTATIVE.WARP DYEING TENDER [address] [place] [address] [facility] 10/24/24 Caridad Chapman, CUSTOMER CARE REPRESENTATIVE.WARP DYEING TENDER [address] [place] [address] [facility] 05/02/25 Team Status: Active Member Role/Relationship Status Dates Dr. Mariano Pearce DO Primary Care Provider Active Team Status: Inactive Member Role/Relationship Status Dates Dr. Mariano Pearce DO Primary Care Provider Active Start: March 22, 2025 End: March 22, 2025 Demetra Navarrete BOILER ROOM OPERATOR, BOILER ROOM OPERATOR-C Attending Provider Active Start: March 22, 2025 End: March 22, 2025 Demetra Navarrete BOILER ROOM OPERATOR, BOILER ROOM OPERATOR-C Referring Provider Active Start: March 22, 2025 End: March 22, 2025 Team Status: Inactive Member Role/Relationship Status Dates Dr. Mariano Pearce DO Primary Care Provider Active Start: May 17, 2025 End: May 17, 2025 Ashley Cabrera Attending Provider Active Start : May 17, 2025 End: May 17, 2025 Ashley Cabrera Referring Provider Active Start : May 17, 2025 End: May 17, 2025 Outpatient Scheduler Relationship Specialty Start Date End Date Mariano Pearce DO [address] [place] [address] PCP - General Family Medicine 01/10/14 [facility] [address] [facility] [place] [address] Pharmacist Pharmacy 09/11/23 Demetra Navarrete, CUSTOMER CARE REPRESENTATIVE.WARP DYEING TENDER [address] [place] [address] Set Up Worker Family Medicine 10/24/24 Caridad Chapman, CUSTOMER CARE REPRESENTATIVE.WARP DYEING TENDER [address] [place] [address] Set Up Worker Family [facility] 05/02/25 Outpatient Scheduler Relationship Specialty Start Date End Date Mariano Pearce DO [address] [facility] [place] [address] PCP - General Family Medicine 01/10/14 [facility] [address] [place] [address] Pharmacist Pharmacy 09/11/23 Demetra Navarrete, CUSTOMER CARE REPRESENTATIVE.WARP DYEING TENDER [address] [facility] [place] [address] Set Up Worker Family Medicine 10/24/24 Caridad Chapman, CUSTOMER CARE REPRESENTATIVE.WARP DYEING TENDER [address] [place] [address] Set Up Worker Family Medicine 05/02/25 Outpatient Scheduler Relationship Specialty Start Date End Date Mariano Pearce DO [address] [facility] [place] [address] PCP - General Family Medicine 01/10/14 [facility] [address] [facility] [place] [address] Pharmacist Pharmacy 09/11/23 Demetra Navarrete, CUSTOMER CARE REPRESENTATIVE.WARP DYEING TENDER [address] [facility] [place] [address] Set Up Worker Family Medicine 10/24/24 Caridad Chapman, CUSTOMER CARE REPRESENTATIVE.WARP DYEING TENDER [address] [place] [address] Set Up Worker [facility] Medicine 05/02/25 Outpatient Scheduler Relationship Specialty Start Date End Date Mariano Pearce DO [address] [facility] [place] [address] PCP - General Family Medicine 01/10/14 [facility] [address] [facility] [place] [address] Pharmacist Pharmacy 09/11/23 Demetra Navarrete, CUSTOMER CARE REPRESENTATIVE.WARP DYEING TENDER [address] [facility] [place] [address] [facility] 10/24/24 Caridad Chapman, CUSTOMER CARE REPRESENTATIVE.WARP DYEING TENDER [address] [place] [address] [facility] 05/02/25 Outpatient Scheduler Relationship Specialty Start Date End Date Mariano Pearce DO [address] [facility] [place] [address] PCP - General Family Medicine 01/10/14 [facility] [address] [facility] [place] [address] Pharmacist Pharmacy 09/11/23 Demetra Navarerte, CUSTOMER CARE REPRESENTATIVE.WARP DYEING TENDER [address] [place], [place] [address] [facility] 10/24/24 Caridad Chapman, CUSTOMER CARE REPRESENTATIVE.WARP DYEING TENDER [address] [place], [place] [address] [facility] 05/02/25 Outpatient Scheduler Relationship Specialty Start Date End Date Mariano Pearce DO [address] [place], [place] [address] PCP - General Family Medicine 01/10/14 Greta Watts RP [address] [place], [place] [address] Pharmacist Pharmacy 09/11/23 Demetra Navarrete, CUSTOMER CARE REPRESENTATIVE.WARP DYEING TENDER [address] [place], [place] [address] [facility] 10/24/24 Caridad Chapman, CUSTOMER CARE REPRESENTATIVE.WARP DYEING TENDER [address] [place], [place] [id number] [facility] 05/02/25 Goals (unrecognized section and content) Goals may be documented in a n alternate sectionGoals may be documented in an alternate section FOR RECORDS PERTAINING TO PATIENTS WHO ARE OR HAVE BEEN ENROLLED IN A CHEMICAL DEPENDENCY/SUBSTANCEABUSE PROGRAM, SOME INFORMATION MAY BE OMITTED. This clinical summary was aggregated from multiple sources. Caution should be exercised in using it in the provision of clinical care. This summary normalizes information from multiple sources, and as a consequence, information in this document may materially change the coding, format and clinical context of patient data. In addition, data may be omitted in some cases. CLINICAL DECISIONS SHOULD BE BASED ON THE PRIMARY CLINICAL RECORDS. [facility] [employer] (acquired by [employer] in 2014) [facility]. provides no warranty or guarantee of the accuracy or completeness of information in this document.
[2025-10-06 19:38] LABS: AST(SGOT) 21 U/L (<=31); Alanine Aminotransfer ALT/SGPT 12 U/L (<=34); Albumin, Serum 3.4 g/dL (3.4-4.8); Alkaline Phosphatase 93 U/L (35-104); Bilirubin, Direct 0.10 mg/dL (0.00-0.30); Globulin 2.4 g/dL (2.2-4.2)
[2025-10-06 20:31] LABS: Prothrombin Time (Protime)PT. 15.5 SECONDS (11.7-14.9)
[2025-10-06 21:21] LABS: Troponin T High Sens 4 HR 10 ng/L (<=14)
[2025-10-06 21:24] LABS: Ammonia 46.0 umol/L (11-51)
[2025-10-06] MEDS: Insulin Glargine-YFGN 100 UNIT/ML Pen 30 UNIT SC (22:53)
[2025-10-07] VITALS (16 sets, daily range): BP systolic 103–157; BP diastolic 54–80; PULSE 55–94; RESP 15–18; TEMP 36.2–36.8; O2SAT 92–98
[2025-10-07 06:57] LABS: Hematocrit 26.1 % (37-47); Hemoglobin 7.7 g/dL (12.0-15.0); Mean Corp Hgb Conc 29.5 g/dL (32-36); Mean Corpuscular Volume 84.5 fL (81-99); Mean Platelet Vol. 12.4 fl (6.2-12.0); Platelet Count 100 K/mm3 (150-450); RBC Distribution Width CV 15.2 % (11.6-14.6); RBC Distribution Width SD 46.5 fl (35.1-43.9); Red Blood Count 3.09 M/mm3 (4.2-5.4); White Blood Count 3.6 K/mm3 (4.4-11.0)
[2025-10-07 07:52] LABS: Anion Gap 9 (5-15); BUN 15 mg/dL (4-19); BUN/Creat Ratio 12.2 RATIO (10-20); Calcium,Total 9.1 mg/dL (7.6-11.0); Carbon Dioxide 24.0 mmol/L (21.0-32.0); Chloride 108 mmol/L (98-108); Estimated Creatinine Clearance 41.12 ml/min (50-250); Glucose 109 mg/dL (70-99); Potassium 4.5 mmol/L (3.3-5.1)
--- NOTE | 2025-10-07 08:16 | PN.HOSP_ITS ---
Reason for Visit Chief Complaint: Worsening anemia and exertional dyspnea Subjective Subjective Has been having melena. No abdominal pain. Objective Data Objective Data Vital Signs: Vital Signs Temp Pulse Resp BP Pulse Ox O2 Del Method 36.8 C 61 18 134/71 H 94 Room Air 10/07/25 05:30 10/07/25 05:30 10/07/25 05:30 10/07/25 05:30 10/07/25 05:30 10/07/25 05:30 Oxygen Delivery Method Room Air Weight: 82.1 kg Body Mass Index (BMI) 33.0 Intake & Output: Intake and Output for Last 24 Hours 10/05/25 10/06/25 10/07/25 23:59 23:59 23:59 Intake Total 100 / 250 550 / 550 Balance 100 / 250 550 / 550 Lab / Micro Data 10/07/25 06:10 10/07/25 06:10 Labs: Laboratory Results - last 24 hr 10/06/25 16:02: WBC 4.5, RBC 2.93 L, Hgb 7.4 L, Hct 24.9 L, MCV 85.0, MCH 25.3 L , MCHC 29.7 L, RDW Std Deviation 48.5 H, RDW Coeff of Cara 15.7 H, Plt Count 112 L, MPV 12.6 H, Immature Gran % (Auto) 0.200, Neut % (Auto) 67.7, Lymph % (Auto) 24.3, [place] % (Auto) 6.5, Eos % (Auto) 0.9, Baso % (Auto) 0.4, Absolute Neuts (auto) 3.0, Absolute Lymphs (auto) 1.08, Nucleated RBC % 0, Sodium 138, Potassium 4.9, Chloride 105, Carbon Dioxide 24.1, Anion Gap 8, BUN 17, C reatinine 1.30 H, Estim Creat Clear Calc 38.60 L, Est GFR (MDRD) Non-Af 43 L, BUN/Creatinine Ratio 13.2, Glucose 206 H, Calcium 8.9, Troponin T High Sens 12, Blood Type O NEGATIVE, Antibody Screen NEGATIVE 10/06/25 16:06: POC Glucose 204 H 10/06/25 16:10: Crossmatch See Detail 10/06/25 18:00: Total Bilirubin 0.18, Direct Bilirubin 0.10, AST 21, ALT 12, Alkaline Phosphatase 93, Troponin T Hi Sens 2 Hr 13, Total Protein 5.8 L, Albumin 3.4, Globulin 2.4 10/06/25 20:04: PT 15.5 H, INR 1.2, Ammonia 46.0, Troponin T Hi Sens 4Hr 10 10/06/25 22:37: POC Glucose 177 H 10/07/25 06:10: WBC 3.6 L, RBC 3.09 L, Hgb 7.7 L, Hct 26.1 L, MCV 84.5, MCH 24.9 L, MCHC 29.5 L, RDW Std Deviation 46.5 H, RDW Coeff of Cara 15.2 H, Plt Count 100 L, MPV 12.4 H, Sodium 141, Potassium 4.5, Chloride 108, Carbon Dioxide 24.0, Anion Gap 9, BUN 15, Creatinine 1.21 H, Estim Creat Clear Calc 41.12 L, Est GFR (MDRD) Non-Af 47 L, BUN/Creatinine Ratio 12.2, Glucose 109 H, Calcium 9.1 10/07/25 07:23: POC Glucose 101 Micro: Microbiology 10/06/25 17:00 Stool Stool Occult Blood (SACHIN) - Final Occult Blood Positive Radiography Diagnostic Testing: Radiology Impression Chest X-Ray 10/06/25 16:14 IMPRESSION: Lateral left basilar hazy opacity, likely atelectasis or an infiltrate. Reading Location: [facility] Rhythm Strip Rhythm Strip: Sinus Rhythm Rate: 65 Ectopy: None Physical Exam Const alert and no apparent distress HEENT head/scalp atraumatic and moist oral mucous membranes Resp normal respiratory effort, no retractions, no use of accessory muscles and clear to auscultation bilaterally Cardio regular rate, regular rhythm, S1 normal heart sound and S2 normal heart sound GI normal to inspection, nondistended, normoactive bowel sounds, soft to palpation, non-tender, non-distended and hepatosplenomegaly Neuro Sensorium / Orientation: awake and oriented to person Assessment & Plan Assessment/Plan (1) Symptomatic anemia: PLAN: Plan Acute on chronic symptomatic anemia * Hemoglobin 7.4 on admit. Transfused 1 unit and now 7.7. 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 Per PCP notes, was recently diagnosed with cirrhosis with esophageal varices on MRI abdomen in May. No ascites noted at that time. Chronic medical conditions: * Hypertension? Patient hypertensive to the 170s systolic on admit. Heart rate stable in normal sinus rhythm in the 60s to 70s. Given suspected slow GI bleed and creatinine at baseline as below, okay to continue home enalapril and Lopressor at this time. IV hydralazine as as needed ordered as well. * CKD stage IIIa? Creatinine 1.30 on admit, baseline 1.1-1.3. * Chronic mild thrombocytopenia? Platelet count 112 on admit, stable baseline 110-120. * Type 2 diabetes mellitus? Glucose 206 on admit. Will treat with reduced dose of Lantus 30 units twice daily and sliding scale insulin with meals, adjust as needed. * Anxiety/depression? Stable. Continue home citalopram and trazodone at night. DVT prophylaxis: SCDs CODE STATUS: Full code, verified Expected disposition: Home, TBD Charges/Coding Visit Charges Inpatient E&M: 17772 Subs Hosp L2
--- NOTE | 2025-10-07 09:19 | CASEMGMT ---
Dx: symptomatic anemia, suspected UGIB LACE: 2 6-Clicks: 24 Medical record reviewed and patient evaluated for identification of discharge planning needs. Based on this review, at this time criteria are not present to indicate a need for discharge planning. Will remain available to assist with discharge planning needs as identified or requested.
[2025-10-07] MEDS: Pantoprazole Sodium 40 MG in 0.9% Normal Saline (100mL MB+) 100 ML 330 MG IV ×2 (11:48→21:15)
[2025-10-07] MEDS: Lactated Ringers 1,000 ML 15 ML IV (12:43)
--- NOTE | 2025-10-07 13:00 | PRE.ANES_ITS ---
ASA Classification* ASA Classification ASA Classification: 3 Assessment & Plan Anesthesia* Anesthesia Assessment Anesthesia Assessment: Discussed sedation and/or anesthesia options, risks, benefits, and alternatives with patient/parents/legal guardian/POA. Questions invited. The patient/parents/legal guardian/POA seems to understand and agrees to proceed with anesthesia plan. Reviewed the physical assessment, medical history, allergy history and patient home medications list prior to surgery/procedure/anesthetic and documented any changes. Performed airway and anesthesia risk assessments. Anesthesia Type Anesthesia Type: MAC (Vs GETA if possible fluid in stomach) Anesthesia Focused Assessment* Temperature: 97.6 F Pulse Rate: 60 Blood Pressure: 111/63 Respiratory Rate: 17 Pulse Ox: 98 Airway Assessment Mouth opens: >3 cm Mallampati Score: II Labs Anesthesia Preop lab: CBC WBC, (4.4-11.0) 3.6 K/mm3 L Today, 06:10 RBC, (4.2-5.4) 3.09 M/mm3 L Today, 06:10 Hgb, (12.0-15.0) 7.7 g/dL L Today, 06:10 Hct, (37-47) 26.1 % L Today, 06:10 Plt Count, (150-450) 100 K/mm3 L Today, 06:10 CHEMISTRY Potassium, (3.3-5.1) 4.5 mmol/L Today, 06:10 Sodium, (133-145) 141 mmol/L Today, 06:10 BUN, (4-19) 15 mg/dL Today, 06:10 Creatinine, (0.70-1.20) 1.21 mg/dL H Today, 06:10 Glucose, (70-99) 109 mg/dL H Today, 06:10 POC Glucose, (74-106) 84 mg/dL Today, 11:46 COAG PT, (11.7-14.9) 15.5 SECONDS H 10/06/25, 20:04 Pre-Assessment Diagnosis/Proposed Procedure Planned Operative Procedure(s): EGD Anesthesia History 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 When Was Last Pacemaker Check QUESTION #4 FULL TEXT: You/Your Family Experience fever (hyperthermia) with Anesthesia Last Oral Intake Last Oral intake: Last Oral Intake NPO since Meds taken in AM with sips of water? 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 Has anyone observed you stop breathing during sleep? STOP Results Positive 10/06/25 18:30 QUESTION #5 FULL TEXT : Do you snore loudly (louder than talking or can be heard through closed doors)? 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 Specify any problems Hx of Preganancy in last 3 N/A 10/06/25 18:30 Months Nurse Filling Out Transfusion [email or web address] 10/06/25 18:30 & Questions: Date: 10/06/25 10/06/25 18:30 Time: 18:32 10/06/25 18:30 Patient unable to answer at this time (ie. 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 catalyst maker: /Reproductive Hx- noodle catalyst maker Hx Now Gestational Age (in weeks): EDC: Hx Hx Para Hx Section SAB Does the father of the baby or his family experience fever w Father of the baby Malignant Hypertension history comment Active Medications Active Medications: Current Medications Generic Name Dose Route Start Last Admin Trade Name Freq PRN Reason Stop Dose Admin Acetaminophen 650 mg 10/06/25 18:22 Acetaminophen 325 Mg Tablet PO Q6H PRN PRN Pain 1-10 Or Fever>100.7 Cholecalciferol 50 mcg 10/07/25 10:00 Cholecalciferol (Vit D3) 25 Mcg Tablet (1,000 Units) PO DAILY TIARA Citalopram Hydrobromide 30 mg 10/07/25 10:00 Citalopram 10 Mg Tablet PO DAILY TIARA Glucagon 1 mg 10/06/25 18:22 Glucagon 1 Mg/Ml Syringe IM X1 PRN Hypoglycemia Protocol Hydralazine HCl 10 mg 10/06/25 18:44 Hydralazine 20 Mg/Ml Vial IV Q4H PRN PRN SBP GREATER THAN 170 Protocol Pantoprazole Sodium 40 mg/ 100 mls @ 330 mls/hr 10/06/25 18:30 10/07/25 12:10 Sodium Chloride IV Infused Q12 TIARA Infusion Dextrose 250 mls @ 0 mls/hr 10/06/25 18:22 Dextrose 10%-Water IV .Q0M PRN HYPOGLYCEMIA Protocol As Directed Sodium Chloride 500 mls @ 15 mls/hr 10/06/25 18:34 IV PRN PRN Blood Transfusion Sodium Chloride 250 mls @ 15 mls/hr 10/06/25 18:34 IV .[id number] PRN Saline Flush Sodium Chloride 250 mls @ 15 mls/hr 10/06/25 18:34 IV .[id number] PRN Additional IVPB Infusion Lactated Ringer's 1,000 mls @ 15 mls/hr 10/07/25 12:45 10/07/25 12:43 IV 15 mls/hr .Q48H TIARA Administration Insulin Glargine 30 unit 10/06/25 22:00 10/07/25 11:35 Insulin Glargine-Yfgn 100 Unit/Ml Pen SC Not Given BID [facility] Protocol Insulin Human Lispro 0 unit 10/06/25 22:00 10/07/25 11:51 Insulin Lispro 100 Unit/Ml Insuln.Pen SC Not Given ACHS [facility] Protocol Levothyroxine Sodium 125 mcg 10/07/25 06:00 10/07/25 05:31 Levothyroxine 125 Mcg Tablet PO 125 mcg [id number]@0600 [facility] Administration Levothyroxine Sodium 62.5 mcg 10/09/25 06:00 Levothyroxine 125 Mcg Tablet PO SuWe@0600 [facility] Lisinopril 20 mg 10/06/25 22:00 10/07/25 11:59 Lisinopril 20 Mg Tablet PO Not Given BID [facility] Protocol Metoprolol Tartrate 100 mg 10/06/25 22:00 10/07/25 11:58 Metoprolol Tartrate 100 Mg Tablet PO Not Given BID [facility] Protocol Ondansetron HCl 4 mg 10/06/25 18:22 Ondansetron 4 Mg/2 Ml Vial IV Q8H PRN PRN NAUSEA/VOMITING Trazodone HCl 100 mg 10/06/25 22:00 10/06/25 22:51 Trazodone 100 Mg Tablet PO 100 mg QHS TIARA Administration PFSH Medical History Hearing loss, left Depression Anxiety Hypothyroidism Kidney stones GERD (gastroesophageal reflux disease) Non-smoker Diverticulosis Hyperlipidemia HTN (hypertension) Diabetes Home Medications ?Medication ?Instructions ?Recorded ?Last Taken ?Type enalapril maleate 20 mg tablet 20 mg PO BID BP 4 10/06/25 History (Vasotec) metoprolol tartrate 100 mg tablet 100 mg PO BID bp 10/06/25 History citalopram 10 mg tablet 30 mg PO DAILY anxiety 05/2210/06/25 History cholecalciferol (vitamin D3) 50 50 mcg PO DAILY supple ment 05/09/21 10/06/25 History mcg (2,000 unit) capsule (Vitamin D3) omeprazole 40 mg capsule,delayed 40 mg PO DAILY stomac h 05/09/21 10/06/25 History release insulin glargine 100 unit/mL (3 45 unit subcut BID Blo odsugar 10/06/25 10/06/25 07:00 History mL) subcutaneous pen (Basaglar KwikPen U-100 Insulin) levothyroxine 125 mcg tablet 125 mcg PO .COMPLEX thyro id 10/06/25 10/06/25 History trazodone 100 mg tablet 100 mg PO QHS depression 10/05/25 History Allergy/AdvReac Type Severity Reaction Status Date / Time latex Allergy Rash Verified 10/06/25 15:51 naproxen (From Naprosyn) Allergy Unknown Verified 10/06/25 15:51 rofecoxib (From Vioxx) Allergy Swelling Verified 10/06/25 15:51 simvastatin (From Zocor) Allergy sick to Verified 10/06/25 15:51 stomach Sulfa (Sulfonamide Allergy Hives Verified 10/06/25 15:51 Antibiotics) atorvastatin calcium (From AdvReac Pain in Verified 10/06/25 15:51 Lipitor) joints doxycycline calcium (From AdvReac Nausea Verified 10/06/25 15:51 Vibramycin) doxycycline hyclate (From AdvReac Nausea Verified 10/06/25 15:51 Vibramycin) doxycycline monohydrate AdvReac Nausea Verified 10/06/25 15:51 (From Vibramycin) erythromycin base AdvReac Nausea Verified 10/06/25 15:51 (Erythromycin Base) fluvastatin sodium (From AdvReac Nausea Verified 10/06/25 15:51 Lescol) niacin AdvReac Itching Verified 10/06/25 15:51 rosuvastatin calcium (From AdvReac Nausea Verified 10/06/25 15:51 Crestor) Family History Other Diabetes Surgical History History of appendectomy Social History Smoking Status: Never smoker alcohol intake: never substance use type: does not use Review of Systems (Anesthesia) ROS Narrative System reviewed and no additional complaints, except as documented.
--- NOTE | 2025-10-07 14:23 | PCM.POST.ANE ---
Anesthesia: Postop Eval I Current Vital Signs Temperature: 97.6 F Pulse Rate: 67 Blood Pressure: 157/80 Respiratory Rate: 16 Pulse Ox: 97 Oxygen Delivery Method: Nasal Cannula Oxygen Flow Rate (L/min): 4 Assessment Airway patent: Yes Spontaneous unlabored respirations: Yes Mental status: Awake and Calm nausea: No Vomiting: No Anesthesia Complication: No Fluid Hydration Crystalloid volume administer (ml): 200 Total IV fluid infused: 200 Progress Note Post-operative progress note: post procedure BS = 103 Anesthesia document: Postop Eval 1 completed: Yes
--- NOTE | 2025-10-07 15:11 | PCM.POSTANE2 ---
Anesthesia Postop Eval I Sum Postop Eval Completion status Anesthesia document: Postop Eval 1 completed: Yes Anesthesia Postop Eval I Summary Anesthesia Postop Eval I Summary: Anesthesia Postop Eval I: Assessment Summary Airway patent Yes 10/07/25 14:25 [email or web address] Spontaneous unlabored Yes 10/07/25 14:25 [email or web address] respirations Mental status Awake,Calm 10/07/25 14:25 [email or web address] nausea No 10/07/25 14:25 [email or web address] Vomiting No 10/07/25 14:25 [email or web address] Anesthesia Postop Eval I: Fluid Summary Crystalloid volume administer 200 10/07/25 14:25 [email or web address] (ml) Colloids volume administered ( ml) Blood Product volume administered (ml) Total IV fluid infused 200 10/07/25 14:25 [email or web address] Anesthesia Postop Eval I: Summary Notes Anesthesia Complication No 10/07/25 14:25 [email or web address] Anesthesia Complication Comment: Post-operative progress note post procedure BS 10/07/25 14:25 [email or web address] = 103 Anesthesia: Postop Eval II Evaluation Mental status: Awake Pain Level: 1 nausea: No Vomiting: No
[2025-10-07] MEDS: Cholecalciferol (VIT D3) 25 MCG TABLET (1,000 UNITS) 50 MCG PO (15:12)
--- NOTE | 2025-10-07 17:42 | OP.EGD_ITS ---
Patient Name: Angeli Brown Procedure Date: 10/07/2025 1:24 PM Date of : 1950 Age: 74 Procedure: Upper GI endoscopy Indications: Iron 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 Providers: Davion Vega DO Medicines: Monitored Anesthesia Care Patient Profile: This is a 74 year old female. Refer to note in patient chart for documentation of history and physical. Patient has symptoms. Complications: No immediate complications. Procedure: Pre-Anesthesia Assessment: - Prior to the procedure, a History and Physical was performed, and patient medications and allergies were reviewed. The patient is competent. The risks and benefits of the procedure and the sedation options and risks were discussed with the patient. All questions were answered and informed consent was obtained. Patient identification and proposed procedure were verified by the physician in the pre-procedure area. Mental Status Examination: alert and oriented. Airway Examination: normal oropharyngeal airway and neck mobility. Respiratory Examination: clear to auscultation. CV Examination: normal. Prophylactic Antibiotics: The patient does not require prophylactic antibiotics. Prior Anticoagulants: The patient has taken no anticoagulant or antiplatelet agents. ASA Grade Assessment: II - A patient with mild systemic disease. After reviewing the risks and benefits, the patient was deemed in satisfactory condition to undergo the procedure. The anesthesia plan was to use monitored anesthesia care (MAC). Immediately prior to administration of medications, the patient was re-assessed for adequacy to receive sedatives. The heart rate, respiratory rate, oxygen saturations, blood pressure, adequacy of pulmonary ventilation, and response to care were monitored throughout the procedure. The physical status of the patient was re-assessed after the procedure. After obtaining informed consent, the endoscope was passed under direct vision. Throughout the procedure, the patient's blood pressure, pulse, and oxygen saturations were monitored continuously. The gastroscope was introduced through the mouth, and advanced to the third part of the duodenum. Small bowel enteroscopy was deemed necessary. The upper GI endoscopy was accomplished with ease. The patient tolerated the procedure well. Scope In: 2:07:12 PM Scope Out: 2:09:37 PM Total Procedure Duration Time 0 hours 2 minutes 25 seconds Findings: Grade I varices were found in the lower third of the esophagus. They were small in size. Multiple large hyperplastic polyps with bleeding and stigmata of recent bleeding were found in the entire examined stomach. No gross lesions were noted in the entire examined duodenum. Impression: - Grade I esophageal varices. - Multiple gastric polyps. - No gross lesions in the entire examined duodenum. - No specimens collected. Recommendation: - [facility]. - Diabetic (ADA) diet. - Continue present medications. - Carafate 1 g p.o. 3 times daily and Protonix 40 mg p.o. twice daily - Outpatient EGD with polyp removal. I talked with her daughter and told her they will take at least 2 hours. - If patient tolerates a diet she is stable for discharge and she will follow-up H&H in 3 days. Procedure Code(s): --- Professional --- 50257, Small intestinal endoscopy, enteroscopy beyond second portion of duodenum, not including ileum; diagnostic, including collection of specimen(s) by brushing or washing, when performed (separate procedure) CPT copyright 2021 [employer]. All rights reserved. The codes documented in this report are preliminary and upon licensed retail supervisor review may be revised to meet current compliance requirements. Davion Vega DO 10/07/2025 5:42:10 PM This report has been signed electronically. Number of Addenda: 0 Note Initiated On: 10/07/2025 1:24 PM
--- NOTE | 2025-10-07 17:42 | OP.PROVAT_ITS ---
10/07/2025 Mariano Pearce [address] [place] [address] Re : Upper GI endoscopy procedure for Angeli Case Dear Dr. Pearce This procedure was performed on Tuesday, October 07, 2025. My impressions and recommendations are as follows: Impressions : - Grade I esophageal varices. - Multiple gastric polyps. - No gross lesions in the entire examined duodenum. - No specimens collected. Recommendations : - [facility]. - Diabetic (ADA) diet. - Continue present medications. - Carafate 1 g p.o. 3 times daily and Protonix 40 mg p.o. twice daily - Outpatient EGD with polyp removal. I talked with her daughter and told her they will take at least 2 hours. - If patient tolerates a diet she is stable for discharge and she will follow-up [facility] in 3 days. My findings are described in the full procedure note, which is enclosed. If I can be of further assistance, please feel free to contact me at . Sincerely, Davion Friend, 10/07/2025 5:42:10 PM This report has been signed electronically.
[2025-10-07 18:40] LABS: Hematocrit 27.7 % (37-47); Hemoglobin 8.5 g/dL (12.0-15.0); Immature Granulocytes Count 0.070 X10^3/uL (0.0-0.0); Mean Corp Hgb Conc 30.7 g/dL (32-36); Mean Corpuscular Volume 84.2 fL (81-99); Mean Platelet Vol. 12.3 fl (6.2-12.0); NRBC Flagged by Analyzer 0 % (0-5); Platelet Count 102 K/mm3 (150-450); RBC Distribution Width CV 15.4 % (11.6-14.6); RBC Distribution Width SD 46.4 fl (35.1-43.9); Red Blood Count 3.29 M/mm3 (4.2-5.4); White Blood Count 3.8 K/mm3 (4.4-11.0)
[2025-10-07] MEDS: Insulin Glargine-YFGN 100 UNIT/ML Pen 30 UNIT SC (21:12)
[2025-10-08] VITALS (11 sets, daily range): BP systolic 97–131; BP diastolic 34–70; PULSE 54–63; RESP 16–18; TEMP 36.6–37; O2SAT 92–100
[2025-10-08 05:50] LABS: Hematocrit 23.8 % (37-47); Hemoglobin 7.1 g/dL (12.0-15.0); Immature Granulocytes Count 0.040 X10^3/uL (0.0-0.0); Mean Corp Hgb Conc 29.8 g/dL (32-36); Mean Corpuscular Volume 85.9 fL (81-99); Mean Platelet Vol. 12.2 fl (6.2-12.0); NRBC Flagged by Analyzer 0 % (0-5); POSITIVE COUNT YES; Platelet Count 88 K/mm3 (150-450); RBC Distribution Width CV 15.3 % (11.6-14.6); RBC Distribution Width SD 47.6 fl (35.1-43.9); Red Blood Count 2.77 M/mm3 (4.2-5.4); White Blood Count 3.3 K/mm3 (4.4-11.0)
[2025-10-08 05:55] LABS: Differential Indicated SCAN CRITERIA MET
[2025-10-08 06:30] LABS: Anion Gap 7 (5-15); BUN 18 mg/dL (4-19); BUN/Creat Ratio 13.4 RATIO (10-20); Calcium,Total 9.2 mg/dL (7.6-11.0); Carbon Dioxide 24.9 mmol/L (21.0-32.0); Chloride 107 mmol/L (98-108); Estimated Creatinine Clearance 36.58 ml/min (50-250); Glucose 283 mg/dL (70-99); Potassium 5.1 mmol/L (3.3-5.1)
--- NOTE | 2025-10-08 08:08 | PCM.PN.HOSP ---
Reason for Visit Chief Complaint: Worsening anemia and exertional dyspnea Subjective Subjective Still with melena Objective Data Objective Data Vital Signs: Vital Signs Temp Pulse Resp BP Pulse Ox O2 Del Method O2 Flow Rate 36.6 C 63 18 131/52 H 92 Room Air 4 10/08/25 03:19 10/08/25 03:19 10/08/25 03:19 10/08/25 03:19 10/08/25 03:19 10/08/25 03:52 10/07/25 14:25 Oxygen Flow Rate (L/min) 4 Oxygen Delivery Method Room Air Weight: 82.1 kg Body Mass Index (BMI) 33.0 Intake & Output: Intake and Output for Last 24 Hours 10/06/25 10/07/25 10/08/25 23:59 23:59 23:59 Intake Total 100 / 250 1270.75 / 1270.75 Output Total 3 / 3 Balance 100 / 250 1267.75 / 1267.75 Lab / Micro Data 10/08/25 05:10 10/08/25 05:10 Labs: Laboratory Results - last 24 hr 10/06/25 20:04: Tumor Marker AFP 2.6 10/07/25 11:46: POC Glucose 84 10/07/25 13:43: POC Glucose 74 10/07/25 14:16: POC Glucose 103 10/07/25 15:29: WBC Cancelled, Corrected WBC Cancelled, RBC Cancelled, Hgb Cancelled, Hct Cancelled, MCV Cancelled, MCH Cancelled, MCHC Cancelled, RDW Std Deviation Cancelled, RDW Coeff of Cara Cancelled, Plt Count Cancelled, MPV Cancelled, Immature Gran % (Auto) Cancelled, Neut % (Auto) Cancelled, Lymph % (Auto) Cancelled, [place] % (Auto) Cancelled, Eos % (Auto) Cancelled, Baso % (Auto) Cancelled, Absolute Neuts (auto) Cancelled, Absolute Lymphs (auto) Cancelled, Total Counted Cancelled, Neutrophils % (Manual) Cancelled, Band Neutrophils % Cancelled, Lymphocytes % (Manual) Cancelled, Monocytes % (Manual) Cancelled, Eosinophils % (Manual) Cancelled, Basophils % (Manual) Cancelled, Metamyelocytes % Cancelled, Myelocytes % Cancelled, Promyelocytes % Cancelled, Blast Cells % Cancelled, Plasma Cell % (Manual) Cancelled, Other Cells % Cancelled, Nucleated RBC % Cancelled, Nucleated RBCs/100 WBC Cancelled, Differential Comment Cancelled, Diff Path Review Cancelled, Hypersegmented Neuts Cancelled, Atypical Lymphocytes Cancelled, Reactive Lymphocytes Cancelled, Smudge Cells Cancelled, Toxic Granulation Cancelled, Toxic Vacuolation Cancelled, Dohle Bodies Cancelled, Mario Rods Cancelled, Platelet Estimate Cancelled, Plt Morphology Comment Cancelled, RBC Morphology Cancelled 10/07/25 15:29: RBC Morphology Cancelled, Polychromasia Cancelled, Hypochromasia Cancelled, Basophilic Stippling Cancelled, Anisocytosis Cancelled, Microcytosis Cancelled, Macrocytosis Cancelled, Spherocytes Cancelled, Sickle Cells Cancelled, Target Cells Cancelled, Tear Drop Cells Cancelled, Ovalocytes Cancelled, Stomatocytes Cancelled, [place] Bodies Cancelled, [place] Cells Cancelled, Bite Cells Cancelled, Crenated Cell Cancelled, Acanthocytes (Spur) Cancelled, Rouleaux Cancelled, Schistocytes Cancelled 10/07/25 18:15: WBC 3.8 L, RBC 3.29 L, Hgb 8.5 L, Hct 27.7 L, MCV 84.2, MCH 25.8 L, MCHC 30.7 L, RDW Std Deviation 46.4 H, RDW Coeff of Cara 15.4 H, Plt Count 102 L, MPV 12.3 H, Immature Gran % (Auto) 1.800 H, Neut % (Auto) 77.1 H, Lymph % (Auto) 17.7 L, [place] % (Auto) 2.6, Eos % (Auto) 0.5, Baso % (Auto) 0.3, Absolute Neuts (auto) 2.9, Absolute Lymphs (auto) 0.67 L, Nucleated RBC % 0 10/07/25 21:10: POC Glucose 307 H 10/08/25 05:10: WBC 3.3 L, RBC 2.77 L, Hgb 7.1 L, Hct 23.8 L, MCV 85.9, MCH 25.6 L, MCHC 29.8 L, RDW Std Deviation 47.6 H, RDW Coeff of Cara 15.3 H, Plt Count 88 L, MPV 12.2 H, Immature Gran % (Auto) 1.200 H, Neut % (Auto) 73.7 H, Lymph % (Auto) 19.9, [place] % (Auto) 4.6, Eos % (Auto) 0.3, Baso % (Auto) 0.3, Absolute Neuts (auto) 2.4, Absolute Lymphs (auto) 0.65 L, Nucleated RBC % 0, Platelet Estimate SLT DEC, Sodium 138, Potassium 5.1, Chloride 107, Carbon Dioxide 24.9, Anion Gap 7, BUN 18, Creatinine 1.36 H, Estim Creat Clear Calc 36.58 L, Est GFR (MDRD) Non-Af 41 L, BUN/Creatinine Ratio 13.4, Glucose 283 H, Calcium 9.2 10/08/25 06:37: POC Glucose 249 H Micro: Microbiology 10/06/25 17:00 Stool Stool Occult Blood (SACHIN) - Final Occult Blood Positive Rhythm Strip Rhythm Strip: Sinus Rhythm Rate: 65 Ectopy: None Physical Exam Const alert and no apparent distress Constitutional Narrative: Awake and cooperative. Able to tell me that she has numerous polyps in her stomach. Resp normal respiratory effort, no retractions, no use of accessory muscles and clear to auscultation bilaterally Cardio regular rate, regular rhythm, S1 normal heart sound and S2 normal heart sound GI normal to inspection, nondistended, normoactive bowel sounds, soft to palpation, non-tender and non-distended Extremity normal to inspection and full ROM Assessment & Plan Assessment/Plan (1) Symptomatic anemia: PLAN: Plan Acute on chronic symptomatic anemia Hemoglobin 7.4 on admit. Transfused 1 unit and now 7.1. Highest suspicion is for slow upper GI bleed in setting of cirrhosis with esophageal varices EGD on 10/07 showed Grade I esophageal varices, multiple gastric polyps Patient to follow up GI as outpt for polyp removal. Will transfuse another unit of blood. GI bleed Discussed with Dr. Vega, patient has numerous oozing gastric polyps that he would like to remove and I was really planning to do this as outpatient on the but with her ongoing melena and ongoing bleeding, I would think her staying in the hospital is inpatient particular since we are transfusing her today would be the most appropriate course of action because I feel that she would be a high likelihood of readmission with her ongoing GI bleed that is not been readily stabilized. 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 No ascites noted at that time. Chronic medical conditions: Hypertension? Patient hypertensive to the 170s systolic on admit. Heart rate stable in normal sinus rhythm in the 60s to 70s. Given suspected slow GI bleed and creatinine at baseline as below, okay to continue home enalapril and Lopressor at this time. IV hydralazine as as needed ordered as well. CKD stage IIIa? Creatinine 1.30 on admit, baseline 1.1-1.3. Chronic mild thrombocytopenia? Platelet count 112 on admit, stable baseline 110-120. Type 2 diabetes mellitus? Glucose 206 on admit. Will treat with reduced dose of Lantus 30 units twice daily and sliding scale insulin with meals, adjust as needed. Anxiety/depression? Stable. Continue home citalopram and trazodone at night. DVT prophylaxis: SCDs CODE STATUS: Full code, verified Expected disposition: Home, TBD Charges/Coding Visit Charges Inpatient E&M: 82219 Subs Hosp L2
[2025-10-08] MEDS: Pantoprazole Sodium 40 MG in 0.9% Normal Saline (100mL MB+) 100 ML 330 MG IV ×2 (09:54→20:58)
[2025-10-08] MEDS: Insulin Glargine-YFGN 100 UNIT/ML Pen 30 UNIT SC ×2 (11:25→20:58)
[2025-10-08] MEDS: Cholecalciferol (VIT D3) 25 MCG TABLET (1,000 UNITS) 50 MCG PO (11:26)
[2025-10-08 14:56] LABS: Prothrombin Time (Protime)PT. 15.5 SECONDS (11.7-14.9)
[2025-10-08 15:09] LABS: Hematocrit 28.1 % (37-47); Hemoglobin 8.4 g/dL (12.0-15.0)
[2025-10-08 15:11] LABS: Ammonia 38.7 umol/L (11-51)
[2025-10-09] VITALS (7 sets, daily range): BP systolic 98–126; BP diastolic 52–76; PULSE 64–80; RESP 16–18; TEMP 36.6–36.9; O2SAT 82–94
[2025-10-09 06:30] LABS: Hematocrit 27.4 % (37-47); Hemoglobin 8.1 g/dL (12.0-15.0); Immature Granulocytes Count 0.030 X10^3/uL (0.0-0.0); Mean Corp Hgb Conc 29.6 g/dL (32-36); Mean Corpuscular Volume 86.2 fL (81-99); Mean Platelet Vol. 12.0 fl (6.2-12.0); NRBC Flagged by Analyzer 0 % (0-5); POSITIVE COUNT YES; Platelet Count 85 K/mm3 (150-450); RBC Distribution Width CV 15.4 % (11.6-14.6); RBC Distribution Width SD 48.5 fl (35.1-43.9); Red Blood Count 3.18 M/mm3 (4.2-5.4); White Blood Count 5.4 K/mm3 (4.4-11.0)
[2025-10-09 06:52] LABS: Anion Gap 8 (5-15); BUN 22 mg/dL (4-19); BUN/Creat Ratio 14.1 RATIO (10-20); Calcium,Total 8.8 mg/dL (7.6-11.0); Carbon Dioxide 24.4 mmol/L (21.0-32.0); Chloride 107 mmol/L (98-108); Estimated Creatinine Clearance 32.10 ml/min (50-250); Glucose 145 mg/dL (70-99); Potassium 4.5 mmol/L (3.3-5.1)
--- NOTE | 2025-10-09 07:27 | PN.HOSP_ITS ---
Reason for Visit Chief Complaint: Worsening anemia and exertional dyspnea Subjective Subjective No BM since yesterday. Had been dizzy upon standing. Objective Data Objective Data Vital Signs: Vital Signs Temp Pulse Resp BP Pulse Ox O2 Del Method O2 Flow Rate 36.7 C 71 18 120/76 94 Nasal Cannula 2 10/09/25 03:50 10/09/25 03:50 10/09/25 03:50 10/09/25 03:50 10/09/25 03:50 10/09/25 03:50 10/09/25 03:50 Oxygen Flow Rate (L/min) 2 Oxygen Delivery Method Nasal Cannula Weight: 82.1 kg Body Mass Index (BMI) 33.0 Intake & Output: Intake and Output for Last 24 Hours 10/07/25 10/08/25 10/09/25 23:59 23:59 23:59 Intake Total 1270.75 / 1270.75 1450 / 1450 Output Total 3 / 3 Balance 1267.75 / 1267.75 1450 / 1450 Lab / Micro Data 10/09/25 05:30 10/09/25 05:30 Labs: Laboratory Results - last 24 hr 10/06/25 16:10: Crossmatch See Detail 10/08/25 11:24: POC Glucose 222 H 10/08/25 14:37: Hgb Cancelled, Hct Cancelled, Diff Path Review Cancelled, PT 15.5 H, INR 1.2, Ammonia 38.7 10/08/25 15:00: Hgb 8.4 L, Hct 28.1 L 10/08/25 16:13: POC Glucose 176 H 10/08/25 19:57: POC Glucose 206 H 10/09/25 05:30: WBC 5.4, RBC 3.18 L, Hgb 8.1 L, Hct 27.4 L, MCV 86.2, MCH 25.5 L , MCHC 29.6 L, RDW Std Deviation 48.5 H, RDW Coeff of Cara 15.4 H, Plt Count 85 L , MPV 12.0, Immature Gran % (Auto) 0.600, Neut % (Auto) 68.3, Lymph % (Auto) 22.8, [place] % (Auto) 6.1, Eos % (Auto) 1.8, Baso % (Auto) 0.4, Absolute Neuts (auto) 3.7, Absolute Lymphs (auto) 1.24, Nucleated RBC % 0, Sodium 140, Potassium 4.5, Chloride 107, Carbon Dioxide 24.4, Anion Gap 8, BUN 22 H, C reatinine 1.55 H, Estim Creat Clear Calc 32.10 L, Est GFR (MDRD) Non-Af 35 L, BUN/Creatinine Ratio 14.1, Glucose 145 H, Calcium 8.8 10/09/25 06:49: POC Glucose 145 H Micro: Microbiology 10/06/25 17:00 Stool Stool Occult Blood (SACHIN) - Final Occult Blood Positive Rhythm Strip Rhythm Strip: Sinus Rhythm Rate: 65 Ectopy: None Physical Exam Const alert and no apparent distress Constitutional Narrative: up in chair. afebrile. Cardio regular rate, regular rhythm, S1 normal heart sound and S2 normal heart sound GI normal to inspection, nondistended, normoactive bowel sounds, soft to palpation, non-tender and non-distended Extremity normal to inspection Assessment & Plan Assessment/Plan (1) Symptomatic anemia: PLAN: Plan Acute on chronic symptomatic anemia * Hemoglobin 7.4 on admit. Now 8.1 * Highest suspicion is for slow upper GI bleed in setting of cirrhosis with esophageal varices * EGD on 10/07 showed Grade I esophageal varices, multiple gastric polyps * Patient to follow up GI as outpt for polyp removal. * Transfused a total of 2 units PRBCs. GI bleed * Discussed with Dr. Vega, patient has numerous oozing gastric polyps that he would like to remove and I was really planning to do this as outpatient on the but with her ongoing melena and ongoing bleeding, I would think her staying in the hospital is inpatient particular since we are transfusing her today would be the most appropriate course of action because I feel that she would be a high likelihood of readmission with her ongoing GI bleed that is not been readily stabilized. * The initial plan was to have this done as outpt, however, with her ongoing bleeding, patient cannot be safely discharged, therefore the procedure should be done while the patient is inpatient. Cirrhosis with esophageal varices secondary to MASLD * Per PCP notes, was recently diagnosed with cirrhosis with esophageal varices on MRI abdomen in May. No ascites noted at that time. Dizziness * BP has been in the 90s. Will DC lisinopril and observe Chronic medical conditions: * Hypertension? Patient hypertensive to the 170s systolic on admit. Heart rate stable in normal sinus rhythm in the 60s to 70s. Given suspected slow GI bleed and creatinine at baseline as below, okay to continue home enalapril and Lopressor at this time. IV hydralazine as as needed ordered as well. * CKD stage IIIa? Creatinine 1.30 on admit, baseline 1.1-1.3. * Chronic mild thrombocytopenia? Platelet count 112 on admit, stable baseline 110-120. * Type 2 diabetes mellitus? Glucose 206 on admit. Will treat with reduced dose of Lantus 30 units twice daily and sliding scale insulin with meals, adjust as needed. * Anxiety/depression? Stable. Continue home citalopram and trazodone at night. DVT prophylaxis: SCDs CODE STATUS: Full code, verified Expected disposition: Home, TBD Charges/Coding Visit Charges Inpatient E&M: 08817 Subs Hosp L2
[2025-10-09] MEDS: Insulin Glargine-YFGN 100 UNIT/ML Pen 30 UNIT SC (09:44)
[2025-10-09] MEDS: Cholecalciferol (VIT D3) 25 MCG TABLET (1,000 UNITS) 50 MCG PO (09:44)
[2025-10-09] MEDS: Pantoprazole Sodium 40 MG in 0.9% Normal Saline (100mL MB+) 100 ML 330 MG IV ×2 (09:45→20:00)
--- NOTE | 2025-10-09 16:30 | PN_ITS ---
Progress Note The patient is a 71-year-old woman with a recent diagnosis of HAN cirrhosis, thrombocytopenia, anemia, and neutropenia. She presented to the hospital with worsening fatigue and shortness of breath due to significant iron 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. She underwent an upper endoscopy which revealed grade 1 esophageal varices and multiple hyperplastic bleeding polyps that were not removed. She reports persistent fatigue and slight dizziness when standing up today. Physical Exam Const alert, oriented x3, no apparent distress and healthy appearing General Appearance: cooperative GI normal to inspection, nondistended, normoactive bowel sounds, soft to palpation, non-tender and non-distended Percussion: normal to percussion Rectal Exam: deferred Assessment & Plan Assessment/Plan (1) Cirrhosis: (2) GI bleed: PLAN: The patient is experiencing ongoing, symptomatic anemia likely secondary to a combination of iron deficiency and underlying chronic disease/cirrhosis. Potential sources of current blood loss include the unremoved hyperplastic polyps identified during the endoscopy.. The Hgb level of 8.1 g/dL remains below optimal thresholds for symptomatic patients, and the slight decrease since the last reading is concerning for continued bleeding. Hemodynamic status shows mild orthostasis (dizziness with standing) but current vitals (BP high 90s systolic, normal heart rate) are relatively stable. Thrombocytopenia is present but mild (85k). Cirrhosis complications include anemia and varices .Plan * Anemia Management: * Continue to monitor Hgb levels closely, with labs drawn this evening and tomorrow morning. * Initiate iron supplementation to address the significant iron deficiency component . Consult with GI regarding appropriate formulation (likely IV iron given severity and potential absorption issues due to GI polyps) . * Consider further blood transfusion if Hgb drops below 7 g/dL or if symptoms of dizziness/fatigue worsen significantly/become hemodynamically unstable. * Bleeding Source Management: * Given the ongoing anemia and potential for continued blood loss, intervention may be necessary. Patient will undergo an upper endoscopy tomorrow with removal of bleeding polyps. She was explained alternatives, risk and benefits include I withstanding bleeding, infection, sepsis, perforation, need emergent urgent . She will have an ASA of 3. N.p.o. after midnight * Cirrhosis Management: * Continue current management plan for HAN cirrhosis, anemia, thrombocytopenia, and neutropenia. Recheck INR * Monitor for signs of acute variceal bleeding. Visit Charges Inpatient E&M: 97596 [facility] Hosp L3
[2025-10-10] VITALS (20 sets, daily range): BP systolic 101–137; BP diastolic 47–84; PULSE 57–80; RESP 12–20; TEMP 36.2–36.8; O2SAT 85–98
[2025-10-10 03:54] LABS: Hematocrit 27.6 % (37-47); Hemoglobin 8.2 g/dL (12.0-15.0); Immature Granulocytes Count 0.020 X10^3/uL (0.0-0.0); Mean Corp Hgb Conc 29.7 g/dL (32-36); Mean Corpuscular Volume 86.8 fL (81-99); Mean Platelet Vol. 11.2 fl (6.2-12.0); NRBC Flagged by Analyzer 0 % (0-5); POSITIVE COUNT YES; Platelet Count 83 K/mm3 (150-450); RBC Distribution Width CV 15.6 % (11.6-14.6); RBC Distribution Width SD 49.4 fl (35.1-43.9); Red Blood Count 3.18 M/mm3 (4.2-5.4); White Blood Count 4.7 K/mm3 (4.4-11.0)
[2025-10-10 04:44] LABS: Anion Gap 6 (5-15); BUN 19 mg/dL (4-19); BUN/Creat Ratio 14.8 RATIO (10-20); Calcium,Total 9.0 mg/dL (7.6-11.0); Carbon Dioxide 25.9 mmol/L (21.0-32.0); Chloride 107 mmol/L (98-108); Estimated Creatinine Clearance 38.27 ml/min (50-250); Glucose 188 mg/dL (70-99); Potassium 4.8 mmol/L (3.3-5.1)
[2025-10-10] MEDS: Pantoprazole Sodium 40 MG in 0.9% Normal Saline (100mL MB+) 100 ML 330 MG IV ×2 (10:03→22:20)
[2025-10-10] MEDS: Cholecalciferol (VIT D3) 25 MCG TABLET (1,000 UNITS) 50 MCG PO (10:53)
--- NOTE | 2025-10-10 10:54 | PN.HOSP_ITS ---
Reason for Visit Chief Complaint: Worsening anemia and exertional dyspnea Subjective Subjective Patient is a 74-year-old lady who was sent to the ED by her PCP on account of low hemoglobin Objective Data Objective Data Vital Signs: Vital Signs Temp Pulse Resp BP Pulse Ox O2 Del Method O2 Flow Rate 98.3 F 58 L 18 125/69 H 94 Room Air 2 10/10/25 10:45 10/10/25 10:45 10/10/25 10:45 10/10/25 10:45 10/10/25 10:45 10/10/25 10:45 10/10/25 03:15 Oxygen Flow Rate (L/min) 2 Oxygen Delivery Method Room Air Weight: 82.1 kg Body Mass Index (BMI) 33.0 Intake & Output: Intake and Output for Last 24 Hours 10/08/25 10/09/25 10/10/25 23:59 23:59 23:59 Intake Total 1450 / 1450 440 / 440 Balance 1450 / 1450 440 / 440 Lab / Micro Data 10/10/25 03:44 10/10/25 03:44 Labs: Laboratory Results - last 24 hr 10/09/25 19:56: POC Glucose 215 H 10/10/25 03:44: WBC 4.7, RBC 3.18 L, Hgb 8.2 L, Hct 27.6 L, MCV 86.8, MCH 25.8 L , MCHC 29.7 L, RDW Std Deviation 49.4 H, RDW Coeff of Cara 15.6 H, Plt Count 83 L , MPV 11.2, Immature Gran % (Auto) 0.400, Neut % (Auto) 68.0, Lymph % (Auto) 22.4, [place] % (Auto) 7.3, Eos % (Auto) 1.5, Baso % (Auto) 0.4, Absolute Neuts (auto) 3.2, Absolute Lymphs (auto) 1.05, Nucleated RBC % 0, Sodium 139, Potassium 4.8, Chloride 107, Carbon Dioxide 25.9, Anion Gap 6, BUN 19, C reatinine 1.30 H, Estim Creat Clear Calc 38.27 L, Est GFR (MDRD) Non-Af 43 L, BUN/Creatinine Ratio 14.8, Glucose 188 H, Hemoglobin A1c 6.9 H, Calcium 9.0, TSH 2.970 Micro: Microbiology 10/06/25 17:00 Stool Stool Occult Blood (SACHIN) - Final Occult Blood Positive Rhythm Strip Rhythm Strip: Sinus Rhythm Rate: 65 Ectopy: None Physical Exam Narrative GENERAL: cooperative HEENT: Atraumatic; normocephalic EYES; Anicteric, Normal Conjunctiva NECK; supple, normal thyroid, RESPIRATORY: Diminished to auscultation CARDIOVASCULAR: Regular S1 S2, GI: soft, normoactive bowel sounds, : No Renal angle tenderness; EXTREMITIES: No edema, no clubbing, MUSCULOSKELETAL: no muscle wasting NEURO: Awake; no lateralizing signs. SKIN: No Rash PSYCH; Flat affect Assessment & Plan Assessment/Plan (1) Symptomatic anemia: PLAN: Plan Patient is a 74-year-old lady who was sent to the ED by her PCP on account of low hemoglobin 1. Acute on chronic symptomatic anemia ? Secondary to acute blood loss anemia; Hemoglobin on admission was 7.4. Patient apparently underwent EGD on 1120 which demonstrated grade 1 esophageal varices with multiple gastric polyps. Patient was transfused with 2 unit PRBC with plans for patient to follow-up upper EGD with GI as for polyp removal 2. Acute GI bleed ? Patient was noted to have multiple oozing polyps. Plan is for patient to undergo repeat EGD for polyp removal 3. Essential hypertension ? Patient blood pressure was elevated on admission with systolic of 170 continue with home meds with doses adjusted as needed 4. Chronic kidney disease stage IIIa ? Kidney function at baseline 5. Diabetes mellitus type II -patient's oral hypoglycemics held. Placed on long acting insulin, Accu-Cheks a.c. and at bedtime and covered with sliding scale insulin 6. Depression with anxiety ? Patient is on citalopram as well as trazodone at night home dose continue 7. Cirrhosis with esophageal varices ? Secondary to nonalcoholic fatty liver disease. Plan is for patient to follow- up with GI as outpatient 8. Chronic thrombocytopenia ? Secondary to cirrhosis of the liver 9. DVT prophylaxis ? Bilateral SCDs Time spent in the patient's overall evaluation,decision-making process, review of diagnostic data, adjustment of management, discussion with other providers, nursing nursing and ancillary staff involved in patient's care documentation, 40 Minutes Charges/Coding Visit Charges Inpatient E&M: 53921 Subs Hosp L2
--- NOTE | 2025-10-10 11:49 | PRE.ANES_ITS ---
ASA Classification* ASA Classification ASA Classification: 3 (GERD, T2DM, HTN, CKD3, cirrhosis with esophageal varices, chronic low platelet) Assessment & Plan Anesthesia* Anesthesia Assessment Anesthesia Assessment: Discussed sedation and/or anesthesia options, risks, benefits, and alternatives with patient/parents/legal guardian/POA. Questions invited. The patient/parents/legal guardian/POA seems to understand and agrees to proceed with anesthesia plan. Reviewed the physical assessment, medical history, allergy history and patient home medications list prior to surgery/procedure/anesthetic and documented any changes. Performed airway and anesthesia risk assessments. Anesthesia Type Anesthesia Type: MAC History Source History Obtained from:: Patient and Chart Anesthesia Focused Assessment* Temperature: 98.3 F Pulse Rate: 58 Blood Pressure: 125/69 Respiratory Rate: 18 Pulse Ox: 94 Oxygen Delivery Method: Room Air Oxygen Flow Rate (L/min): 2 Airway Assessment Mouth opens: >3 cm Mallampati Score: III Neck Range of motion (ROM): Full ROM Labs Anesthesia Preop lab: CBC WBC, (4.4-11.0) 4.7 K/mm3 Today, 03:44 RBC, (4.2-5.4) 3.18 M/mm3 L Today, 03:44 Hgb, (12.0-15.0) 8.2 g/dL L Today, 03:44 Hct, (37-47) 27.6 % L Today, 03:44 Plt Count, (150-450) 83 K/mm3 L Today, 03:44 CHEMISTRY Potassium, (3.3-5.1) 4.8 mmol/L Today, 03:44 Sodium, (133-145) 139 mmol/L Today, 03:44 BUN, (4-19) 19 mg/dL Today, 03:44 Creatinine, (0.70-1.20) 1.30 mg/dL H Today, 03:44 Glucose, (70-99) 188 mg/dL H Today, 03:44 POC Glucose, (74-106) 111 mg/dL H Today, 11:03 TSH, (0.300-4.200) 2.970 uIU/mL Today, 03:44 COAG PT, (11.7-14.9) 15.5 SECONDS H 10/08/25, 14:37 Pre-Assessment Diagnosis/Proposed Procedure Planned Operative Procedure(s): EGD Anesthesia History 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 When Was Last Pacemaker Check QUESTION #4 FULL TEXT: You/Your Family Experience fever (hyperthermia) with Anesthesia Last Oral Intake Last Oral intake: Last Oral Intake NPO since 00:01 10/10/25 01:49 Meds taken in AM with sips of No 10/10/25 01:49 water? Meds patient instructed to take am of surgery PONV PONV - firer marine: PONV - firer marine Female HX of Motion Sickness HX of N/V After Surgery Non-Smoker Duration of Surgery greater than 60 minutes Number of Risk Factors PONV Score Height & Weight Height & Weight: Anesthesia: Height & Weight Height 5 ft 2 in 10/07/25 13:29 Weight: 82.1 kg 10/10/25 01:49 Body Mass Index (BMI) 33.0 10/06/25 18:23 Respiratory Assessment Respiratory Assessment - firer marine: Respiratory Tract Infection Hx - firer marine Hx Respiratory Tract Infection No 10/09/25 18:55 STOP Sleep Apnea STOP Sleep Apnea - firer marine: STOP Sleep Apnea - firer marine Hx Hypertension Yes 10/06/25 18:30 Hx Sleep Apnea Yes 10/06/25 18:30 CPAP No 10/07/25 14:15 BIPAP No 10/06/25 18:30 Do you snore loudly (louder than talking or can be heard Do you often feel tired/ fatigued/ sleepy during daytime? Has anyone observed you stop breathing during sleep? STOP Results Positive 10/07/25 14:15 QUESTION #5 FULL TEXT : Do you snore loudly (louder than talking or can be heard through closed doors)? 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 Specify any problems Hx of Preganancy in last 3 N/A 10/06/25 18:30 Months Nurse Filling Out Transfusion KGLAZIER 10/06/25 18:30 & Questions: Date: 10/06/25 10/06/25 18:30 Time: 18:32 10/06/25 18:30 Patient unable to answer at this time (ie. confused, unrespo /Reproduction History /Reproductive History - firer marine: /Reproductive Hx- firer marine Hx Now No 10/09/25 18:55 Gestational Age (in weeks): EDC: Hx Hx Para Hx Section SAB No 10/09/25 18:55 Does the father of the baby or his family experience fever w Father of the baby Malignant Hypertension history comment Active Medications Active Medications: Current Medications Generic Name Dose Route Start Last Admin Trade Name Freq PRN Reason Stop Dose Admin Acetaminophen 650 mg 10/06/25 18:22 10/09/25 09:47 Acetaminophen 325 Mg Tablet PO 650 mg Q6H PRN PRN Administration Pain 1-10 Or Fever>100.7 Cholecalciferol 50 mcg 10/07/25 10:00 10/10/25 10:53 Cholecalciferol (Vit D3) 25 Mcg Tablet (1,000 Units) PO 50 mcg DAILY TIARA Administration Citalopram Hydrobromide 30 mg 10/07/25 10:00 10/10/25 10:53 Citalopram 10 Mg Tablet PO 30 mg DAILY TIARA Administration Glucagon 1 mg 10/06/25 18:22 Glucagon 1 Mg/Ml Syringe IM X1 PRN Hypoglycemia Protocol Hydralazine HCl 10 mg 10/06/25 18:44 Hydralazine 20 Mg/Ml Vial IV Q4H PRN PRN SBP GREATER THAN 170 Protocol Pantoprazole Sodium 40 mg/ 100 mls @ 330 mls/hr 10/06/25 18:30 10/10/25 10:03 Sodium Chloride IV 330 mls/hr Q12 TIARA Administration Dextrose 250 mls @ 0 mls/hr 10/06/25 18:22 Dextrose 10%-Water IV .Q0M PRN HYPOGLYCEMIA Protocol As Directed Sodium Chloride 500 mls @ 15 mls/hr 10/06/25 18:34 IV PRN PRN Blood Transfusion Sodium Chloride 250 mls @ 15 mls/hr 10/06/25 18:34 IV .[id number] PRN Saline Flush Sodium Chloride 250 mls @ 15 mls/hr 10/06/25 18:34 IV .[id number] PRN Additional IVPB Infusion Lactated Ringer's 1,000 mls @ 15 mls/hr 10/07/25 12:45 10/09/25 12:12 IV Not Given .Q48H [facility] Insulin Glargine 30 unit 10/06/25 22:00 10/10/25 10:53 Insulin Glargine-Yfgn 100 Unit/Ml Pen SC Not Given BID [facility] Protocol Insulin Human Lispro 0 unit 10/06/25 22:00 10/10/25 11:10 Insulin Lispro 100 Unit/Ml Insuln.Pen SC Not Given ACHS [facility] Protocol Levothyroxine Sodium 125 mcg 10/07/25 06:00 10/09/25 20:01 Levothyroxine 125 Mcg Tablet PO Not Given [email or web address] [facility] Levothyroxine Sodium 62.5 mcg 10/09/25 06:00 10/09/25 03:51 Levothyroxine 125 Mcg Tablet PO 62.5 mcg [id number] [facility] Administration Metoprolol Tartrate 100 mg 10/06/25 22:00 10/10/25 11:10 Metoprolol Tartrate 100 Mg Tablet PO Not Given BID [facility] Protocol Ondansetron HCl 4 mg 10/06/25 18:22 Ondansetron 4 Mg/2 Ml Vial IV Q8H PRN PRN NAUSEA/VOMITING Trazodone HCl 100 mg 10/06/25 22:00 10/09/25 19:59 Trazodone 100 Mg Tablet PO 100 mg QHS TIARA Administration PFSH Medical History Hearing loss, left Depression Anxiety Hypothyroidism Kidney stones GERD (gastroesophageal reflux disease) Non-smoker Diverticulosis Hyperlipidemia HTN (hypertension) Diabetes Home Medications ?Medication ?Instructions ?Recorded ?Last Taken ?Type enalapril maleate 20 mg tablet 20 mg PO BID BP 4 10/06/25 History (Vasotec) metoprolol tartrate 100 mg tablet 100 mg PO BID bp 10/06/25 History citalopram 10 mg tablet 30 mg PO DAILY anxiety 05/2210/06/25 History cholecalciferol (vitamin D3) 50 50 mcg PO DAILY supple ment 05/09/21 10/06/25 History mcg (2,000 unit) capsule (Vitamin D3) omeprazole 40 mg capsule,delayed 40 mg PO DAILY stomac h 05/09/21 10/06/25 History release insulin glargine 100 unit/mL (3 45 unit subcut BID Blo odsugar 10/06/25 10/06/25 07:00 History mL) subcutaneous pen (Basaglar KwikPen U-100 Insulin) levothyroxine 125 mcg tablet 125 mcg PO .COMPLEX thyro id 10/06/25 10/06/25 History trazodone 100 mg tablet 100 mg PO QHS depression 10/05/25 History Allergy/AdvReac Type Severity Reaction Status Date / Time latex Allergy Rash Verified 10/06/25 15:51 naproxen (From Naprosyn) Allergy Unknown Verified 10/06/25 15:51 rofecoxib (From Vioxx) Allergy Swelling Verified 10/06/25 15:51 simvastatin (From Zocor) Allergy sick to Verified 10/06/25 15:51 stomach Sulfa (Sulfonamide Allergy Hives Verified 10/06/25 15:51 Antibiotics) atorvastatin calcium (From AdvReac Pain in Verified 10/06/25 15:51 Lipitor) joints doxycycline calcium (From AdvReac Nausea Verified 10/06/25 15:51 Vibramycin) doxycycline hyclate (From AdvReac Nausea Verified 10/06/25 15:51 Vibramycin) doxycycline monohydrate AdvReac Nausea Verified 10/06/25 15:51 (From Vibramycin) erythromycin base AdvReac Nausea Verified 10/06/25 15:51 (Erythromycin Base) fluvastatin sodium (From AdvReac Nausea Verified 10/06/25 15:51 Lescol) niacin AdvReac Itching Verified 10/06/25 15:51 rosuvastatin calcium (From AdvReac Nausea Verified 10/06/25 15:51 Crestor) Family History Other Diabetes Surgical History History of appendectomy Social History Smoking Status: Never smoker alcohol intake: never substance use type: does not use Review of Systems (Anesthesia) ROS Narrative System reviewed and no additional complaints, except as documented. Physical Exam Const alert, oriented x3 and average body habitus Resp normal respiratory effort, normal air movement and clear to auscultation bilaterally Cardio regular rate, regular rhythm and no murmurs; Negative for diaphoretic
[2025-10-10] MEDS: Lactated Ringers 1,000 ML 15 ML IV (12:15)
--- NOTE | 2025-10-10 12:57 | OP.EGD_ITS ---
Patient Name: Angeli Case Procedure Date: 10/10/2025 11:34 AM Date of : 1950 Age: 74 Procedure: Upper GI endoscopy Indications: Iron 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, Recent gastrointestinal bleeding Providers: Davion Vega DO Medicines: Monitored Anesthesia Care Patient Profile: This is a 74 year old female. Refer to note in patient chart for documentation of history and physical. Patient has symptoms of chronic abdominal cramping, chronic abdominal distention and chronic dyspepsia. Complications: No immediate complications. Procedure: Pre-Anesthesia Assessment: - Prior to the procedure, a History and Physical was performed, and patient medications and allergies were reviewed. The patient is competent. The risks and benefits of the procedure and the sedation options and risks were discussed with the patient. All questions were answered and informed consent was obtained. Patient identification and proposed procedure were verified by the physician in the pre-procedure area. Mental Status Examination: alert and oriented. Airway Examination: normal oropharyngeal airway and neck mobility. Respiratory Examination: clear to auscultation. CV Examination: normal. Prophylactic Antibiotics: The patient does not require prophylactic antibiotics. Prior Anticoagulants: The patient has taken no anticoagulant or antiplatelet agents except for NSAID medication. ASA Grade Assessment: II - A patient with mild systemic disease. After reviewing the risks and benefits, the patient was deemed in satisfactory condition to undergo the procedure. The anesthesia plan was to use monitored anesthesia care (MAC). Immediately prior to administration of medications, the patient was re-assessed for adequacy to receive sedatives. The heart rate, respiratory rate, oxygen saturations, blood pressure, adequacy of pulmonary ventilation, and response to care were monitored throughout the procedure. The physical status of the patient was re-assessed after the procedure. After obtaining informed consent, the endoscope was passed under direct vision. Throughout the procedure, the patient's blood pressure, pulse, and oxygen saturations were monitored continuously. The Endoscope was introduced through the mouth, and advanced to the third part of the duodenum. Small bowel enteroscopy was deemed necessary. The upper GI endoscopy was accomplished with ease. The patient tolerated the procedure well. Scope In: 12:29:19 PM Scope Out: 12:51:22 PM Total Procedure Duration Time 0 hours 22 minutes 3 seconds Findings: Grade I varices were found in the lower third of the esophagus. Multiple large hyperplastic polyps with bleeding and stigmata of recent bleeding were found in the entire examined stomach. The polyp was removed with a hot snare. Resection and retrieval were complete. Verification of patient identification for the specimen was done. Estimated blood loss was minimal. Multiple 1 to 2 mm sessile polyps with no bleeding and no stigmata of recent bleeding were found in the gastric body and at the incisura. Coagulation for destruction of remaining portion of lesion using argon plasma at 0.3 liters/minute and 30 jaime was successful. Estimated blood loss was minimal. No gross lesions were noted in the entire examined duodenum. Impression: - Grade I esophageal varices. - Multiple gastric polyps. Resected and retrieved. - Multiple gastric polyps. Treated with argon plasma coagulation (APC). - No gross lesions in the entire examined duodenum. Recommendation: - [facility]. - Advance diet as tolerated. - Continue present medications. - Await pathology results. - Repeat upper endoscopy in 2 months for retreatment. Procedure Code(s): --- Professional --- 52016, Small intestinal endoscopy, enteroscopy beyond second portion of duodenum, not including ileum; with removal of tumor(s), polyp(s), or other lesion(s) by snare technique CPT copyright 2021 [employer]. All rights reserved. The codes documented in this report are preliminary and upon security shift manager review may be revised to meet current compliance requirements. Davion Vega DO 10/10/2025 12:56:29 PM This report has been signed electronically. Number of Addenda: 0 Note Initiated On: 10/10/2025 11:34 AM
--- NOTE | 2025-10-10 12:57 | OP.PROVAT_ITS ---
10/10/2025 Maraino Pearce [address] [place] [address] Re : Upper GI endoscopy procedure for Angeli Case Dear Dr. Pearce This procedure was performed on Friday, October 10, 2025. My impressions and recommendations are as follows: Impressions : - Grade I esophageal varices. - Multiple gastric polyps. Resected and retrieved. - Multiple gastric polyps. Treated with argon plasma coagulation (APC). - No gross lesions in the entire examined duodenum. Recommendations : - [facility]. - Advance diet as tolerated. - Continue present medications. - Await pathology results. - Repeat upper endoscopy in 2 months for retreatment. My findings are described in the full procedure note, which is enclosed. If I can be of further assistance, please feel free to contact me at . Sincerely, Davion Vega, 10/10/2025 12:56:29 PM This report has been signed electronically.
--- NOTE | 2025-10-10 13:08 | PCM.POST.ANE ---
Anesthesia: Postop Eval I Current Vital Signs Temperature: 97.5 F Pulse Rate: 77 Blood Pressure: 120/84 Respiratory Rate: 16 Pulse Ox: 89 Oxygen Delivery Method: Nasal Cannula Oxygen Flow Rate (L/min): 3 Assessment Airway patent: Yes Spontaneous unlabored respirations: Yes Mental status: Asleep nausea: No Vomiting: No Anesthesia Complication: Yes Anesthesia Complication Comment:: heme+ emesis episodes Fluid Hydration Crystalloid volume administer (ml): 400 Total IV fluid infused: 400 Progress Note Anesthesia document: Postop Eval 1 completed: Yes
--- NOTE | 2025-10-10 16:00 | EGD_PTH ---
PATIENT: AUSTIN REES LOC: [facility] U#:[id number] AGE/SX: 74/F ROOM: [facility] RE10/06/[address]: Dr. Mike Rodney MD : 1950 BED: 1 DIS: 10/11/2025 SPEC #: [id number] RECD: 10/11/25 07:54 STATUS: NATALIIA REQ #: [id number] JOSH: 10/10/25 16:[address]: Davion Vega DEPT: SURGICAL PATHOLOGY RECD BY: Vini Hastings ENTERED: 10/11/25 09:02 SP TYPE: EGD BIOPSY OTHR DR: Dr. Rudy Daniel, DO MD Dr. Alan Rivera, DO Dr. Mariano Pearce, DO MD Yanely Narvaez SOAKERS SUPERVISOR-C Valentina Knott SOAKERS SUPERVISOR-C MASON Vyas Tissues: A - Gastric mucous membrane Procedures: Surgery Specimen Level IV HEADER OPERATION: EGD polypectomy and APC PRE-OP DIAGNOSIS: Cirrhosis, GI bleed TISSUE SUBMITTED: A- Gastric polyps MICROSCOPIC DIAGNOSIS A. Stomach, polypectomy: * Hyperplastic gastric polyps, inflamed with mucosal erosion MICROSCOPIC DESCRIPTION Slides are reviewed. GROSS DESCRIPTION A. Received in formalin labeled with the patient's name and date of . Designated as gastric polyps is a 2.7 x 2.4 x 0.3 cm aggregate of pink-garcía to red-mclean irregular to polypoid tissue fragments and 5 garcía-red to mclean, granular and somewhat necrotic polyps ranging, 0.8 x 0.7 x 0.5 cm to 2.4 x 1.4 x 1.0 cm. The larger polyps are differentially inked and sectioned. Entirely submitted in 8 cassettes as follows: A1-A2: Aggregate of polypoid tissue fragments (no ink)A3: Polyp, trisected (inked green)A4: Polyp, serially sectioned (inked black)A5: Polyp, trisected (inked black)A6: Polyp, trisected (inked black)A7-A8: Polyp, serially sectioned (inked green) [place] 10/11/2025PT:[id number]
[2025-10-10] MEDS: Phytonadione (Vit K) 5 MG in 0.9% Normal Saline (50mL Bag) 50 ML 150 MG IV (17:17)
[2025-10-10] MEDS: Insulin Glargine-YFGN 100 UNIT/ML Pen 30 UNIT SC (22:22)
[2025-10-11 03:32] VITALS: PULSE 70
[2025-10-11 05:23] VITALS: BP 111/68; PULSE 69; RESP 16; TEMP 36.7; O2SAT 95
[2025-10-11 06:10] LABS: Hematocrit 28.8 % (37-47); Hemoglobin 8.4 g/dL (12.0-15.0); Immature Granulocytes Count 0.020 X10^3/uL (0.0-0.0); Mean Corp Hgb Conc 29.2 g/dL (32-36); Mean Corpuscular Volume 87.0 fL (81-99); Mean Platelet Vol. 11.8 fl (6.2-12.0); NRBC Flagged by Analyzer 0 % (0-5); POSITIVE COUNT YES; Platelet Count 80 K/mm3 (150-450); RBC Distribution Width CV 15.5 % (11.6-14.6); RBC Distribution Width SD 49.1 fl (35.1-43.9); Red Blood Count 3.31 M/mm3 (4.2-5.4); White Blood Count 4.0 K/mm3 (4.4-11.0)
[2025-10-11 06:37] LABS: Anion Gap 8 (5-15); BUN 16 mg/dL (4-19); BUN/Creat Ratio 12.3 RATIO (10-20); Calcium,Total 9.0 mg/dL (7.6-11.0); Carbon Dioxide 26.9 mmol/L (21.0-32.0); Chloride 105 mmol/L (98-108); Estimated Creatinine Clearance 39.49 ml/min (50-250); Glucose 159 mg/dL (70-99); Magnesium 1.8 mg/dL (1.5-2.2); Potassium 4.4 mmol/L (3.3-5.1)
--- NOTE | 2025-10-11 07:41 | PCM.PN.HOSP ---
Reason for Visit Chief Complaint: Worsening anemia and exertional dyspnea Subjective Subjective Patient underwent repeat EGD. Findings and and interventions performed as documented below Objective Data Objective Data Vital Signs: Vital Signs Temp Pulse Resp BP Pulse Ox O2 Del Method O2 Flow Rate 98.1 F 69 16 111/68 95 Nasal Cannula 1 10/11/25 05:23 10/11/25 05:23 10/11/25 05:23 10/11/25 05:23 10/11/25 05:23 10/11/25 05:23 10/11/25 05:23 FiO2 93 10/10/25 14:00 Oxygen Flow Rate (L/min) 1 Oxygen Delivery Method Nasal Cannula Weight: 82.1 kg Body Mass Index (BMI) 33.0 Intake & Output: Intake and Output for Last 24 Hours 10/09/25 10/10/25 10/11/25 23:59 23:59 23:59 Intake Total 440 / 440 650.5 / 650.5 900 / 900 Output Total 10 / 10 Balance 440 / 440 640.5 / 640.5 900 / 900 Lab / Micro Data 10/11/25 05:28 10/11/25 05:28 Labs: Laboratory Results - last 24 hr 10/10/25 11:03: POC Glucose 111 H 10/10/25 16:02: POC Glucose 207 H 10/10/25 22:20: POC Glucose 145 H 10/11/25 05:28: WBC 4.0 L, RBC 3.31 L, Hgb 8.4 L, Hct 28.8 L, MCV 87.0, MCH 25.4 L, MCHC 29.2 L, RDW Std Deviation 49.1 H, RDW Coeff of Cara 15.5 H, Plt Count 80 L, MPV 11.8, Immature Gran % (Auto) 0.500, Neut % (Auto) 66.4, Lymph % (Auto) 24.4, Barnes % (Auto) 7.0, Eos % (Auto) 1.2, Baso % (Auto) 0.5, Absolute Neuts (auto) 2.7, Absolute Lymphs (auto) 0.98, Nucleated RBC % 0, Sodium 140, Potassium 4.4, Chloride 105, Carbon Dioxide 26.9, Anion Gap 8, BUN 16, Creatinine 1.26 H, Estim Creat Clear Calc 39.49 L, Est GFR (MDRD) Non-Af 45 L, BUN/Creatinine Ratio 12.3, Glucose 159 H, Calcium 9.0, Phosphorus 3.3, Magnesium 1.8, POC Glucose 155 H Micro: Microbiology 10/06/25 17:00 Stool Stool Occult Blood (SACHIN) - Final Occult Blood Positive Rhythm Strip Rhythm Strip: Sinus Rhythm Rate: 65 Ectopy: None Physical Exam Narrative GENERAL: cooperative HEENT: Atraumatic; normocephalic EYES; Anicteric, Normal Conjunctiva NECK; supple, normal thyroid, RESPIRATORY: Diminished to auscultation CARDIOVASCULAR: Regular S1 S2, GI: soft, normoactive bowel sounds, : No Renal angle tenderness; EXTREMITIES: No edema, no clubbing, MUSCULOSKELETAL: no muscle wasting NEURO: Awake; no lateralizing signs. SKIN: No Rash PSYCH; Flat affect Assessment & Plan Assessment/Plan (1) Symptomatic anemia: PLAN: Plan Patient is a 74-year-old lady who was sent to the ED by her PCP on account of low hemoglobin 1. Acute on chronic symptomatic anemia ? Secondary to acute blood loss anemia; Hemoglobin on admission was 7.4. Patient apparently underwent EGD on 1120 which demonstrated grade 1 esophageal varices with multiple gastric polyps. Patient was transfused with 2 unit PRBC with plans for patient to follow-up upper EGD with GI as for polyp removal 2. Acute GI bleed ? Patient was noted to have multiple oozing polyps. Plan is for patient to undergo repeat EGD for polyp removal ? 10/11/2024; repeat EGD performed on 10/10/2025 findings and interventions performed as below Impressions : - Grade I esophageal varices. - Multiple gastric polyps. Resected and retrieved. - Multiple gastric polyps. Treated with argon plasma coagulation (APC). - No gross lesions in the entire examined duodenum. 3. Essential hypertension ? Patient blood pressure was elevated on admission with systolic of 170 continue with home meds with doses adjusted as needed 4. Chronic kidney disease stage IIIa ? Kidney function at baseline 5. Diabetes mellitus type II -patient's oral hypoglycemics held. Placed on long acting insulin, Accu-Cheks a.c. and at bedtime and covered with sliding scale insulin 6. Depression with anxiety ? Patient is on citalopram as well as trazodone at night home dose continue 7. Cirrhosis with esophageal varices ? Secondary to nonalcoholic fatty liver disease. Plan is for patient to follow-up with GI as outpatient 8. Chronic thrombocytopenia ? Secondary to cirrhosis of the liver 9. DVT prophylaxis ? Bilateral SCDs Time spent in the patient's overall evaluation,decision-making process, review of diagnostic data, adjustment of management, discussion with other providers, nursing nursing and ancillary staff involved in patient's care documentation, 38 Minutes Charges/Coding Visit Charges Inpatient E&M: 06942 Subs Hosp L2
[2025-10-11] MEDS: Pantoprazole Sodium 40 MG in 0.9% Normal Saline (100mL MB+) 100 ML 330 MG IV (08:45)
[2025-10-11 08:46] VITALS: PULSE 69
[2025-10-11] MEDS: Cholecalciferol (VIT D3) 25 MCG TABLET (1,000 UNITS) 50 MCG PO (08:46)
[2025-10-11] MEDS: Insulin Glargine-YFGN 100 UNIT/ML Pen 30 UNIT SC (08:46)
--- NOTE | 2025-10-11 09:02 | DS.PCM_ITS ---
Providers Date of Admission: 10/06/25 Date of Discharge: 10/11/25 Primary Care Physician: Dr. Mariano Pearce, DO Consultations 10/06/25 18:22 Consult: Gastroenterology Routine Consulting Provider: [facility] Reason for Consult: h/o HAN cirrhosis w/ esop varices, anemia w/ suspected slow UGIB EMERGENT Consult: No MD Notified: Yes Date Notified: 10/06/25 Time Notified: 18:26 Method of Notification: Text Reason For Visit: SYMPTOMATIC ANEMIA W/ SUSPECTED SLOW UGIB Diagnosis Discharge Diagnosis (1) Symptomatic anemia: Status: Acute Code(s): D64.9 - Anemia, unspecified Plan Patient is a 74-year-old lady who was sent to the ED by her PCP on account of low hemoglobin 1. Acute on chronic symptomatic anemia ? Secondary to acute blood loss anemia; Hemoglobin on admission was 7.4. Patient apparently underwent EGD on 1120 which demonstrated grade 1 esophageal varices with multiple gastric polyps. Patient was transfused with 2 unit PRBC with plans for patient to follow-up upper EGD with GI as for polyp removal 2. Acute GI bleed ? Patient was noted to have multiple oozing polyps. Plan is for patient to undergo repeat EGD for polyp removal ? 10/11/2024; repeat EGD performed on 10/10/2025 findings and interventions performed as below Impressions : - Grade I esophageal varices. - Multiple gastric polyps. Resected and retrieved. - Multiple gastric polyps. Treated with argon plasma coagulation (APC). - No gross lesions in the entire examined duodenum. 3. Essential hypertension ? Patient blood pressure was elevated on admission with systolic of 170 continue with home meds with doses adjusted as needed 4. Chronic kidney disease stage IIIa ? Kidney function at baseline 5. Diabetes mellitus type II -patient's oral hypoglycemics held. Placed on long acting insulin, Accu-Cheks a.c. and at bedtime and covered with sliding scale insulin 6. Depression with anxiety ? Patient is on citalopram as well as trazodone at night home dose continue 7. Cirrhosis with esophageal varices ? Secondary to nonalcoholic fatty liver disease. Plan is for patient to follow- up with GI as outpatient 8. Chronic thrombocytopenia ? Secondary to cirrhosis of the liver 9. DVT prophylaxis ? Bilateral SCDs Time spent in the patient's overall evaluation,decision-making process, review of diagnostic data, adjustment of management, discussion with other providers, nursing nursing and ancillary staff involved in patient's care documentation, 38 Minutes Medications at Discharge Home Medications enalapril maleate 20 mg tablet (Vasotec) 20 mg PO BID BP 08/06/14 metoprolol tartrate 100 mg tablet 100 mg PO BID bp 08/06/14 citalopram 10 mg tablet 30 mg PO DAILY anxiety 05/22/15 cholecalciferol (vitamin D3) 50 mcg (2,000 unit) capsule (Vitamin D3) 50 mcg PO DAILY supplement 05/09/21 omeprazole 40 mg capsule,delayed release 40 mg PO DAILY stomach 05/09/21 levothyroxine 125 mcg tablet 125 mcg PO .COMPLEX thyroid 10/06/25 trazodone 100 mg tablet 100 mg PO QHS depression 10/06/25 ferrous sulfate 325 mg (65 mg iron) tablet (Feosol) 325 mg PO BID #60 tabs 10/11/25 insulin glargine 100 unit/mL (3 mL) subcutaneous pen (Basaglar KwikPen U-100 Insulin) 45 unit (0.45 mL) subcut QHS Bloodsugar #15 mL 10/11/25 Physical Exam Narrative GENERAL: cooperative HEENT: Atraumatic; normocephalic EYES; Anicteric, Normal Conjunctiva NECK; supple, normal thyroid, RESPIRATORY: Diminished to auscultation CARDIOVASCULAR: Regular S1 S2, GI: soft, normoactive bowel sounds, : No Renal angle tenderness; EXTREMITIES: No edema, no clubbing, MUSCULOSKELETAL: no muscle wasting NEURO: Awake; no lateralizing signs. SKIN: No Rash PSYCH; Flat affect Weight / BMI Weight Weight: 82.1 kg Body Mass Index (BMI) 33.0 ABG / Lab / Microbiology Data 10/11/25 05:28 10/11/25 05:28 Laboratory: Laboratory Results - last 24 hr 10/10/25 11:03: POC Glucose 111 H 10/10/25 16:02: POC Glucose 207 H 10/10/25 22:20: POC Glucose 145 H 10/11/25 05:28: WBC 4.0 L, RBC 3.31 L, Hgb 8.4 L, Hct 28.8 L, MCV 87.0, MCH 25.4 L, MCHC 29.2 L, RDW Std Deviation 49.1 H, RDW Coeff of Cara 15.5 H, Plt Count 80 L, MPV 11.8, Immature Gran % (Auto) 0.500, Neut % (Auto) 66.4, Lymph % (Auto) 24.4, [place] % (Auto) 7.0, Eos % (Auto) 1.2, Baso % (Auto) 0.5, Absolute Neuts (auto) 2.7, Absolute Lymphs (auto) 0.98, Nucleated RBC % 0, Sodium 140, Potassium 4.4, Chloride 105, Carbon Dioxide 26.9, Anion Gap 8, BUN 16, C reatinine 1.26 H, Estim Creat Clear Calc 39.49 L, Est GFR (MDRD) Non-Af 45 L, BUN/Creatinine Ratio 12.3, Glucose 159 H, Calcium 9.0, Phosphorus 3.3, Magnesium 1.8, POC Glucose 155 H Microbiology: Microbiology 10/06/25 17:00 Stool Stool Occult Blood (SACHIN) - Final Occult Blood Positive D/C Instructions Discharge Activity: Return to Normal Activity Call your doctor if you observe: Fever of 101 or Higher, Shortness of breath, Fainting spells and Chest pain DC O2, CPAP, BIPAP Needs Home O2 Discharge instructions: No Meaningful Use Info Meaningful Use Meaningful Use Diagnoses (Choose all that apply): None applicable Discharge Plan Admission Admit Date/Time: 10/06/25 17:37 Attending Provider: Mike Rodney Primary Care Provider: Mariano Pearce Consulting Providers: Donn Salgado; Davion Vega; Yanely May; Valentina Knott; Lisseth Jennings; Rudy Daniel; Alan Paz Discharge Orders/Prescriptions Prescriptions: New ferrous sulfate [Feosol] 325 mg (65 mg iron) tablet 325 mg PO BID Qty: 60 0RF Continued metoprolol tartrate 100 MG tablet 100 mg PO BID Patient Comments: blood pressure enalapril maleate [Vasotec] 20 MG tablet 20 mg PO BID Patient Comments: blood pressure citalopram 10 MG tablet 30 mg PO DAILY Patient Comments: depression omeprazole 40 mg capsule,delayed release(DR/EC) 40 mg PO DAILY cholecalciferol (vitamin D3) [Vitamin D3] 50 mcg (2,000 unit) Capsule 50 mcg PO DAILY trazodone 100 mg tablet 100 mg PO QHS levothyroxine 125 mcg tablet 125 mcg PO .COMPLEX Rx Instructions: 125 mcg orally daily except Wed and Sun take 1/2 tab; Changed insulin glargine [Basaglar KwikPen U-100 Insulin] 100 unit/mL (3 mL) insulin pen 45 unit subcut QHS Qty: 15 0RF Referrals / Follow Up: Mariano Pearce DO [Primary Care Provider, Medical] - Within 1 Week FriendDavion DO [Med Staff - Active Staff, Gastroenterology] - Within 2 Weeks Disposition Disposition (needs filled in before D/C Order can be placed): Home, Self Care Charges/Coding Visit Charges Inpatient E&M: 96891 Disch Hosp >30min
[2025-10-11 09:04] VITALS: BP 133/64; PULSE 69; RESP 17; TEMP 36.8; O2SAT 94
--- NOTE | 2025-10-11 10:18 | CASEMGMT ---
ASHLEY ARELLANO NOTE: Discharge order is in. ASHLEY ARELLANO to room. Pt states she has all DM supplies, insulin, and needles needed. She denies having any concerns w/discharging back home. Her daughter will be taking her home today. Jareth MCCLAIN RN, CM
== END 2025-10-11 12:06 | disposition home or self-care (01) | DRG 433 ==
LOC: ED 17:37 → PCU 17:59
PROVIDERS: Internal Medicine Gastroenterology; Student in an Organized Health Care Education/Training Program; Admitting Provider Hospitalist; Emergency Provider Emergency Medicine; PCP Student in an Organized Health Care Education/Training Program; Visit Provider Internal Medicine
PROC: 0DJ08ZZ Inspection of Upper Intestinal Tract, Via Natural or Artificial Opening Endoscopic (ICD-10-PCS; CPT 43235; principal; 2025-10-07 12:25)
DX: K74.60 Unspecified cirrhosis of liver (principal); D62 Acute posthemorrhagic anemia; I85.10 Secondary esophageal varices without bleeding; D63.1 Anemia in chronic kidney disease; E11.22 Type 2 diabetes mellitus with diabetic chronic kidney disease; D69.6 Thrombocytopenia, unspecified; D73.1 Hypersplenism; N18.31 Chronic kidney disease, stage 3a; L40.50 Arthropathic psoriasis, unspecified; E03.9 Hypothyroidism, unspecified; F32.A Depression, unspecified; I12.9 Hypertensive chronic kidney disease with stage 1 through stage 4 chronic kidney disease, or unspecified chronic kidney disease; E78.5 Hyperlipidemia, unspecified; K21.9 Gastro-esophageal reflux disease without esophagitis; Z79.4 Long term (current) use of insulin; K31.7 Polyp of stomach and duodenum; K76.0 Fatty (change of) liver, not elsewhere classified; F41.8 Other specified anxiety disorders; Z79.899 Other long term (current) drug therapy; R06.00 Dyspnea, unspecified
CPT/HCPCS: 36415; 71046; 80048; 80076; 82105; 82140; 82274; 82962; 83036; 83735; 84100; 84443; 84484; 85014; 85018; 85025; 85027; 85610; 86850; 86900; 86901; 86920; 88305; 93005; 94668; 99252; 99284; C1889; P9016; A4216; G0463; J2405

== ENCOUNTER → 2025-10-19 | Outpatient (CLI) | payer MEDICARE, SELFPAY ==
[2025-10-19 14:36] LABS: Ferritin 52 ng/mL (22-378)
[2025-10-19 14:52] LABS: Iron Binding Capacity,Total 394 ug/dL (250-450)
[2025-10-19 14:55] LABS: CRP < 3.00 mg/L (0.0-3.0); Iron 128 ug/dL (50-170); Iron Binding Capacity,Unsat 266 ug/dL (228-428)
[2025-10-21 14:08] LABS: ANTINUCLEAR ANTIBODIES DIRECT Positive (Negative); Anti-Chromatin <0.2 AI (0.0-0.9); Anti-Jo <0.2 AI (0.0-0.9); Anti-dsDNA Ab <1 IU/mL (0-9); SJOGREN'S Anti-SS-A test < 0.2 AI (0.0-0.9); SJOGREN'S Anti-SS-B test < 0.2 AI (0.0-0.9)
== END | disposition home or self-care (01) ==
LOC: LAB 13:32
PROVIDERS: PCP Student in an Organized Health Care Education/Training Program; Referring Provider Student in an Organized Health Care Education/Training Program; Visit Provider Student in an Organized Health Care Education/Training Program
DX: K74.60 Unspecified cirrhosis of liver (principal); Z86.39 Personal history of other endocrine, nutritional and metabolic disease
CPT/HCPCS: 36415; 82390; 82728; 83036; 83540; 83550; 84443; 86038; 86140; 86225; 86235

== ENCOUNTER → 2025-10-31 | Outpatient (CLI) | payer MEDICARE, SELFPAY ==
--- NOTE | 2025-10-31 08:36 | US_ITS ---
PROCEDURE: ABD LIMITED W/ ELASTOGRAPHY REASON FOR EXAM: CIRRHOSIS COMPARISON: None. TECHNIQUE: Procedure Code: [id number] Modality: US Procedure: ABD LIMITED W/ ELASTOGRAPHY Right upper quadrant abdominal ultrasound. [facility] ElastQ [facility] shear wave elastography for non-invasive assessment of liver tissue stiffness. Tisha EPIQ Elite. FINDINGS: LIVER: Size: Unremarkable Length: 16 cm Echotexture: Diffusely echogenic suggesting fatty infiltration Contour: Normal Lesions: None identified Elastography: EQI Med: 7.3 kPa EQI Med Jorge: 1.6 m/s IQR/Med: 21.4 %* GALLBLADDER: Surgically absent. COMMON BILE DUCT: Normal measuring 4 mm . PANCREAS: Normal Visualized portions of the right kidney are unremarkable. No right upper quadrant ascites. US/ABD Limited w/ Elastography IMPRESSION: Mild to moderate hepatic fibrosis. Fatty infiltration of the liver. Status post cholecystectomy. Reference Values: SRU <1.37 m/s (5.7kPa): No to mild fibrosis 1.37 m/s - 2.2 m/s: Moderate to severe fibrosis >2.2 m/s (15kPa): Significant fibrosis / cirrhosis METAVIR Score F2 or higher: 1.34 m/s (5.7kPa) F3 or higher: 1.55 m/s (7.3kPa) F4: 1.80 m/s (10kPa) * If the IQR/Med is >30%, the variance in the measurements is a large and the a ccuracy of the measurement may be in question. Reading Location: [facility]
== END | disposition home or self-care (01) ==
PROVIDERS: PCP Student in an Organized Health Care Education/Training Program; Referring Provider Student in an Organized Health Care Education/Training Program; Visit Provider Student in an Organized Health Care Education/Training Program
DX: K74.60 Unspecified cirrhosis of liver (principal)
CPT/HCPCS: 76705; 76981